=== PATIENT | male | born 1950 | race Caucasian/White ===

== ENCOUNTER → 2020-09-14 08:57 | Outpatient (CLI) | payer MEDICARE, OTHER, SELFPAY ==
--- NOTE | 2020-09-14 09:13 | CPS ---
PT CAME IN FOR COVID SWAB AND EKG WAS ORDERED ALSO. PT REFUSED TO HAVE EKG DONE. PT STATED THAT DR ROSE OFFICE HAD DONE ONE 2-3 WEEKS AGO AND THEY WERE TO BE USING THAT EKG.
[2020-09-14 09:59] LABS: Absolute Lymphocyte Count 1.39 X10^3/uL (0.83-4.51); Basophil# 0.04 X10^3/uL; Basophil% 0.8 % (0-1); Eosinophil# 0.05 X10^3/uL; Hematocrit 39.1 % (40-54); Hemoglobin 14.1 g/dL (13.0-16.5); Lymphocyte # 1.39 X10^3/ul (4.0); Lymphocyte % 27.8 % (19-41); Mean Corp Hgb Conc 36.1 g/dL (32-36); Mean Corpuscular Hgb 34.9 pg (27.0-32.0); Mean Corpuscular Volume 96.8 fL (80-94); Mean Platelet Vol. 8.9 fl (6.2-12.0); NRBC Flagged by Analyzer 0 % (0-5); Platelet Count 279 K/mm3 (150-450); RBC Distribution Width CV 11.6 % (11.6-14.6); RBC Distribution Width SD 40.9 fl (35.1-43.9); Red Blood Count 4.04 M/mm3 (4.6-6.2)
[2020-09-14 10:29] LABS: Anion Gap 5 (5-15); BUN 8 mg/dL (7-18); BUN/Creat Ratio 10.6 RATIO (10-20); Calcium,Total 9.3 mg/dL (8.5-10.1); Chloride 93 mmol/L (98-107); Creatinine, Serum 0.76 mg/dL (0.70-1.30); EST Glomerular Filtration Rate 109 mL/min (>60); Est Glom Filt Rate - Afr Amer 132 mL/min (>60); Glucose 152 mg/dL (74-106); Potassium 3.6 mmol/L (3.5-5.1); Sodium Level 129 mmol/L (136-145)
[2020-09-14 10:57] LABS: Hemoglobin A1c 5.9 % (3.8-5.6)
== END ==
PROVIDERS: PCP Internal Medicine; Referring Provider Physician Assistant; Visit Provider Physician Assistant
DX: Z01.818 Encounter for other preprocedural examination (principal); E11.69 Type 2 diabetes mellitus with other specified complication
CPT/HCPCS: 36415; 80048; 83036; 85025; 87635; C9803; U0003

== ENCOUNTER → 2020-09-20 10:05 | Outpatient (CLI) | payer MEDICARE, OTHER, SELFPAY ==
[2016-04-18 13:19] VITALS: BMI 28.7
[2020-09-20 11:16] LABS: Hematocrit 36.7 % (40-54); Hemoglobin 13.3 g/dL (13.0-16.5); Mean Corp Hgb Conc 36.2 g/dL (32-36); Mean Corpuscular Hgb 34.6 pg (27.0-32.0); Mean Corpuscular Volume 95.6 fL (80-94); Mean Platelet Vol. 9.1 fl (6.2-12.0); Platelet Count 259 K/mm3 (150-450); RBC Distribution Width CV 11.5 % (11.6-14.6); RBC Distribution Width SD 40.1 fl (35.1-43.9); Red Blood Count 3.84 M/mm3 (4.6-6.2); White Blood Count 5.1 K/mm3 (4.4-11.0)
[2020-09-20 11:53] LABS: Anion Gap 6 (5-15); BUN 10 mg/dL (7-18); BUN/Creat Ratio 11.1 RATIO (10-20); Calcium,Total 9.1 mg/dL (8.5-10.1); Chloride 91 mmol/L (98-107); EST Glomerular Filtration Rate 89 mL/min (>60); Est Glom Filt Rate - Afr Amer 108 mL/min (>60); Glucose 139 mg/dL (74-106); Potassium 3.2 mmol/L (3.5-5.1); Sodium Level 128 mmol/L (136-145)
== END ==
PROVIDERS: PCP Internal Medicine; Referring Provider Physician Assistant; Visit Provider Physician Assistant
DX: Z01.818 Encounter for other preprocedural examination (principal); S46.012A Strain of muscle(s) and tendon(s) of the rotator cuff of left shoulder, initial encounter; M75.42 Impingement syndrome of left shoulder
CPT/HCPCS: 36415; 80048; 85027

== ENCOUNTER 2021-04-24 22:43 | Emergency (ER) | payer MEDICARE, OTHER, SELFPAY ==
[2021-04-24 22:43] VITALS: BP 113/61; PULSE 90; RESP 18; TEMP 36.3; O2SAT 93; BMI 31.4
[2021-04-24 23:06] LABS: Absolute Lymphocyte Count 0.95 X10^3/uL (0.83-4.51); Absolute Neutrophil Count 3.7 X10^3/uL (2.0-7.7); Basophil# 0.01 X10^3/uL; Basophil% 0.2 % (0-1); Eosinophil# 0.07 X10^3/uL; Eosinophils% 1.3 % (0-5); Hematocrit 38.4 % (40-54); Hemoglobin 13.3 g/dL (13.0-16.5); Lymphocyte # 0.95 X10^3/ul (0.83-4.51); Lymphocyte % 18.2 % (19-41); Mean Corp Hgb Conc 34.6 g/dL (32-36); Mean Corpuscular Hgb 33.4 pg (27.0-32.0); Mean Corpuscular Volume 96.5 fL (80-94); Mean Platelet Vol. 9.1 fl (6.2-12.0); Monocyte% 9.6 % (0-10); NRBC Flagged by Analyzer 0 % (0-5); Neutrophil # 3.67 X10^3/uL (2.7-7.7); Neutrophil % 70.5 % (47-70); Platelet Count 186 K/mm3 (150-450); RBC Distribution Width CV 11.3 % (11.6-14.6); Red Blood Count 3.98 M/mm3 (4.6-6.2); White Blood Count 5.2 K/mm3 (4.4-11.0)
[2021-04-24 23:22] LABS: ALB/GLOB Ratio 1.2 RATIO (0.9-2.4); AST(SGOT) 31 U/L (15-37); Alanine Aminotransfer ALT/SGPT 45 U/L (16-61); Albumin, Serum 3.7 g/dL (3.2-5.0); Alkaline Phosphatase 65 U/L (45-117); Anion Gap 11 (5-15); BUN 22 mg/dL (7-18); BUN/Creat Ratio 13.6 RATIO (10-20); Calcium,Total 8.9 mg/dL (8.5-10.1); Chloride 102 mmol/L (98-107); Creatinine, Serum 1.62 mg/dL (0.70-1.30); EST Glomerular Filtration Rate 45 mL/min (>60); Est Glom Filt Rate - Afr Amer 55 mL/min (>60); Estimated Creatinine Clearance 44.44 ml/min; Globulin 3.1 g/dL (2.2-4.2); Glucose 104 mg/dL (74-106); Potassium 3.7 mmol/L (3.5-5.1); Protein, Total 6.8 g/dL (6.4-8.2); Sodium Level 135 mmol/L (136-145)
[2021-04-25 00:56] VITALS: BP 118/61; PULSE 74; RESP 18; O2SAT 96
--- NOTE | 2021-04-25 01:07 | RAD_ITS ---
STUDY: X-RAY CHEST REASON FOR EXAM: Male, 71 years old. sob TECHNIQUE: 1 view COMPARISON: 10/17/2013 FINDINGS: Cardiomediastinal silhouette is unremarkable. Costophrenic angles are sharp. Linear opacities are noted in the left lung base. There is a stable calcified granuloma in the upper lobe. Lungs otherwise clear. The trachea is midline. There is no pneumothorax. Sternotomy wires are grossly intact. RAD/Chest 1 View (Portable) IMPRESSION: Left basilar platelike atelectasis versus linear scar. Electronically Signed: Fortunato Marroquin MD at 2:14 EDT Tel , Service support ,
--- NOTE | 2021-04-25 01:08 | EKG12_ITS ---
Test Reason : SYNCOPE Blood Pressure : / mmHG Vent. Rate : 076 BPM Atrial Rate : 076 BPM P-R Int : 198 ms QRS Dur : 088 ms QT Int : 394 ms P-R-T Axes : 030 004 020 degrees QTc Int : 443 ms Normal sinus rhythm Inferior-posterior infarct , age undetermined , cannot be excluded Abnormal ECG Confirmed by MARISOL LADD, NOE ([id number]), senior technical editor SOLITARIO BECERRA ([id number]) on 04/27/2021 7:52:34 AM Referred By: CIERRA Confirmed By:NOE DAMON MD
--- NOTE | 2021-04-25 01:08 | EX.ED.DYSGE1 ---
HPI History of Present Illness Chief Complaint: Syncope Informant: patient Onset/Context/Timing Onset: Today Context: Gradual Onset Timing: Intermittent Current Severity: Mild Maximum Severity: Moderate Narrative Narrative: Patient is a 71-year-old male medical history significant for hypertension, hyperlipidemia, diabetes, and open heart surgery in 2012 who presents to the emergency department near syncope. Patient states he is in a normal state of health. He states that yesterday, he began to have what he describes as a stomach flu. He has had a few bouts of nonbloody, nonbilious emesis. He then had loose watery diarrhea. He states today, his symptoms have resolved. He states however, every time that he would go to change positions, he will get lightheaded and felt like he was going to pass out. He denies chest pain or shortness of breath. He denies fevers or chills. He denies abdominal pain. Prior similar symptoms: No Recent Illness/Hospitalization: Yes PFSH PFSH Home Medications Quinapril Hcl [Accupril] 10 mg PO BID 04/18/16 [History Last Taken 04/19/16] aspirin [Adult Low Dose Aspirin EC] 162 mg PO DAILY 04/18/16 [History Last Taken 04/19/16] atorvastatin 20 mg PO QHS 04/18/16 [History Last Taken Unknown] clopidogrel 75 mg PO DAILY 04/18/16 [History Last Taken 04/19/16] metformin 500 mg PO DAILY 04/18/16 [History Last Taken Unknown] metoprolol succinate 100 mg PO DAILY 04/18/16 [History Last Taken 04/19/16] multivitamin with folic acid [Thera] 1 tab PO DAILY 04/18/16 [History Last Taken 04/19/16] cilostazol 100 mg PO BID 04/25/21 [History Last Taken Unknown] doxazosin 16 mg PO QHS 04/25/21 [History Last Taken Unknown] Allergy/AdvReac Type Severity Reaction Status Date / Time No Known Allergies Allergy Verified 04/18/16 13:21 Social History Smoking Status: Unknown if ever smoked ROS ROS ED Constitutional Constitutional ED: Reports chills Eyes Eyes: Denies blurry vision or change in vision ENT ENT ED: Denies ear pain or sore throat Cardiovascular Cardiovascular: Denies chest pain or palpitations Respiratory/Chest Respiratory/Chest: Denies cough, dyspnea or dyspnea on exertion Gastrointestinal Gastrointestinal: Reports diarrhea, nausea and vomiting Genitourinary Genitourinary ED: Denies dysuria or urinary frequency Musculoskeletal Musculoskeletal: Denies arthralgias or myalgias Integumentary Denies rash Neurologic Neurologic: Denies headache(s) or paresthesias Psychiatric Psychiatric: Denies anxiety or depression Endocrine Endocrinology: Denies polydipsia or polyuria Allergic/Immunologic Allergic/Immunologic ED: Denies urticaria EXAM Physical Exam Const Vital Signs: 04/24/21 22:43 04/25/21 00:56 04/25/21 01:47 Temperature 97.4 F L Temperature Source Temporal Pulse Rate 90 74 73 Respiratory Rate 18 18 14 Respiratory Effort Respiratory Pattern Blood Pressure 113/61 118/61 118/57 L Blood Pressure Mean 78 80 77 Pulse Ox 93 96 95 Oxygen Delivery Method Room Air Room Air Room Air 04/25/21 01:49 Temperature Temperature Source Pulse Rate Respiratory Rate Respiratory Effort Non-Labored Respiratory Pattern Normal Blood Pressure Blood Pressure Mean Pulse Ox Oxygen Delivery Method Positive well nourished and well developed General Appearance ED: well developed HEENT Reports normocephalic, head/scalp atraumatic and moist mucous membranes Eyes PERRL and EOMs intact bilaterally Neck no lymphadenopathy and supple General: Negative for tenderness Chest Wall inspection of chest normal Resp normal respiratory effort and clear to auscultation bilaterally Cardio regular rate, regular rhythm and no murmurs GI normal to inspection, nondistended, normoactive bowel sounds Palpation: Negative for tender, guarding or rebound tenderness present Back/Spine no CVA tenderness Cervical Spine: Negative for cervical spine tenderness Thoracic Spine / Upper Back: Negative for thoracic spinal tenderness Extremity normal to inspection General Extremety ED: Negative for tenderness Neuro oriented x3 and CN's II-XII intact bilaterally Neuro Narrative: No focal deficits appreciated. Sensorium / Orientation: alert Psych mental status grossly normal Skin no rashes or lesions noted, no wounds and skin turgor normal MDM MDM MDM Narrative Medical decision making narrative: The patient presents with near syncope with standing. He had a recent GI illness with nausea, vomiting, diarrhea. His abdomen is soft and nontender. I did obtain EKG. It was sinus rhythm without evidence of acute ischemia. The patient has had no chest pain. Screening labs are obtained. He does have mild kidney injury consistent with dehydration. The patient was given 2 L of fluids. His symptoms have totally resolved. At this point, I do feel that he was likely orthostatic causing his near syncope. I do not suspect a dangerous process. The patient wants to attempt outpatient therapy and I feel this is reasonable. He will be discharged home. Impression 1. Near syncope 2. Dehydration Lab Data Attestation: I reviewed the patient's lab results. Labs: Laboratory Results - last 24 hr 04/24/21 04/24/21 22:50 22:50 WBC 5.2 RBC 3.98 L Hgb 13.3 Hct 38.4 L MCV 96.5 H MCH 33.4 H MCHC 34.6 RDW Std Deviation 40.0 RDW Coeff of Cedric 11.3 L Plt Count 186 MPV 9.1 Immature Gran % (Auto) 0.200 Neut % (Auto) 70.5 H Lymph % (Auto) 18.2 L [place] % (Auto) 9.6 Eos % (Auto) 1.3 Baso % (Auto) 0.2 Absolute Neuts (auto) 3.7 Absolute Lymphs (auto) 0.95 Nucleated RBC % 0 Sodium 135 L Potassium 3.7 Chloride 102 Carbon Dioxide 22.0 Anion Gap 11 BUN 22 H Creatinine 1.62 H Estim Creat Clear Calc 44.44 Est GFR (MDRD) Af Amer 55 L Est GFR (MDRD) Non-Af 45 L BUN/Creatinine Ratio 13.6 Glucose 104 Calcium 8.9 Total Bilirubin 1.00 AST 31 ALT 45 Alkaline Phosphatase 65 Total Protein 6.8 Albumin 3.7 Globulin 3.1 Albumin/Globulin Ratio 1.2 Radiography Chest X-Ray - ED: 1 View, Read by ED Physician, Normal, Heart, Lungs, Mediastinum and Bony Structures Diagnostic Testing: Radiology Impression Chest X-Ray 04/25/21 01:07 IMPRESSION: Left basilar platelike atelectasis versus linear scar. Electronically Signed: Fortunato Marroquin MD at 2:14 EDT Tel , Service support , Discharge Plan Triage Chief Complaint: Syncope ED Provider: David Kelly Dx/Rx/DC Orders Instructions: ED Dehydration (Adult) Prescriptions: No Action metformin 500 MG tablet 500 mg PO DAILY RF: 0 atorvastatin 20 MG tablet 20 mg PO QHS RF: 0 metoprolol succinate 100 MG tablet 100 mg PO DAILY RF: 0 clopidogrel 75 MG tablet 75 mg PO DAILY RF: 0 aspirin [Adult Low Dose Aspirin] 81 MG tablet,delayed release (DR/EC) 162 mg PO DAILY RF: 0 multivitamin with folic acid [Thera] 1 TABLET tablet 1 tab PO DAILY RF: 0 Quinapril Hcl [Accupril] 10 MG tablet 10 mg PO BID RF: 0 cilostazol 100 mg tablet 100 mg PO BID RF: 0 doxazosin 8 mg tablet 16 mg PO QHS RF: 0 Primary Care Provider: Sher Jules Referrals: Sher Jules MD [Primary Care Provider] -
[2021-04-25] MEDS: 0.9% Normal Saline 1,000 ML 999 ML IV ×2 (01:45→02:35)
[2021-04-25 01:47] VITALS: BP 118/57; PULSE 73; RESP 14; O2SAT 95
[2021-04-25 03:17] VITALS: BP 130/66; PULSE 71; RESP 16; O2SAT 96
== END 2021-04-25 03:18 ==
LOC: ED 04-25 03:06
PROVIDERS: Emergency Provider Emergency Medicine; PCP Internal Medicine
DX: R55 Syncope and collapse (principal); E86.0 Dehydration; E11.9 Type 2 diabetes mellitus without complications; E78.5 Hyperlipidemia, unspecified; I10 Essential (primary) hypertension; Z79.82 Long term (current) use of aspirin; Z79.84 Long term (current) use of oral hypoglycemic drugs; Z79.899 Other long term (current) drug therapy
CPT/HCPCS: 71045; 80053; 85025; 93005; 96360; 96361; 99283; J7030; A4216

== ENCOUNTER 2022-05-29 12:19 | Observation (INO) | payer MEDICARE, OTHER, SELFPAY ==
[2022-05-29 12:20] VITALS: BP 159/52; PULSE 74; RESP 18; TEMP 35.9; O2SAT 95; BMI 31.5
--- NOTE | 2022-05-29 13:09 | EKG12_ITS ---
Test Reason : vision Blood Pressure : / mmHG Vent. Rate : 065 BPM Atrial Rate : 065 BPM P-R Int : 196 ms QRS Dur : 100 ms QT Int : 432 ms P-R-T Axes : 022 -08 034 degrees QTc Int : 449 ms Normal sinus rhythm Normal ECG Confirmed by YAKOV LADD, THERESA ([id number]), newspaper editor SOLITARIO BECERRA ([id number]) on 05/31/2022 1:57:57 PM Referred By: Marco A Confirmed By:THERESA NAGY MD
--- NOTE | 2022-05-29 13:09 | CT_ITS ---
We are attempting to reach an attending provider to discuss findings. An addendum with communication details will be sent when the communication is complete. STUDY: CT HEAD STROKE PROTOCOL W/O CONTRAST INJECTION REASON FOR EXAM: Male, 72 years old. Neuro deficit, acute, stroke suspected RADIATION DOSAGE (If Supplied By Facility): CTDIvol = ( 44.99 ) mGy, DLP = ( 829.85 ) mGycm TECHNIQUE: Transaxial CT imaging of the brain was performed without administration of intravenous contrast material. Individualized dose optimization techniques were used for this CT. COMPARISON: No relevant priors. FINDINGS: Normal soft tissue structures. Normal calvarium. Normal size ventricles and extra-axial spaces for the patient''s age. Normal white matter tracts of the cerebral hemispheres. Normal basal ganglia and thalami. Normal brainstem. Normal cerebellum. There is no intracranial hemorrhage. There are no findings of an acute ischemic infarction. Atherosclerotic calcifications visualized in the vertebral arteries. Normal visualized paranasal sinuses. ASPECT score: 10 CT/STROKE Brain/Head without Cont IMPRESSION: No evidence of acute intracranial pathology is seen. Electronically Signed: Eduard Miranda MD at 14:45 EDT Reading Location ID and State: [facility] / [place] Tel , Service support ,
--- NOTE | 2022-05-29 13:13 | EDS_ITS ---
HPI <Dr. Christian Strickland MD - Last Filed: 06/01/22 21:41> History of Present Illness Chief Complaint: Vision Prob Informant: patient Onset/Context/Timing Onset: Weeks (1) Context: Sudden Onset (While driving) Timing: Continuous Quality and Location: Positive for - (Vision trouble with left eye only, blurry) Onset: Acute while driving Current Severity: Moderate Maximum Severity: Moderate Worsened by: Nothing Relieved by: Nothing Associated Symptoms Associated Symptoms: Negative for Headache, Nausea, Vomiting or Chest Pain Narrative Narrative: Patient upper bur[place] of his left eye only 1 week ago, sudden onset. He made an appointment to see his eye doctor, he saw them today, and after being evaluated was referred to the ER out of concern for possible vascular event of some sort. He has never had a stroke in the past. He has a history of peripheral tibial disease as well as diabetes, history of heart disease with a CABG in 2012, and since he has been on aspirin, clopidogrel, cilostazol. He is on no anticoagulant. No bleeding from anywhere recently. No headaches, peripheral neurologic symptoms, problems with speech. No eye pain. He wears glasses for correction. [facility] <Dr. Christian Strickland MD - Last Filed: 06/01/22 21:41> [facility] Medical History (Updated 05/30/22 @ 02:[address] Felicity Lieberman MD) CAD (coronary artery disease) Diabetes Hyperlipemia Hypertension Home Medications aspirin 81 mg tablet,delayed release (Adult Low Dose Aspirin) 162 mg PO DAILY heart health 04/18/16 [History Last Taken 04/19/16] clopidogrel 75 mg tablet 75 mg PO DAILY antiplatelet 04/18/16 [History Last Taken 04/19/16] metformin 500 mg tablet 500 mg PO DAILY diabetes 04/18/16 [History Last Taken Unknown] metoprolol succinate 100 mg tablet,extended release 24 hr 100 mg PO DAILY blood pressure 04/18/16 [History Last Taken 04/19/16] multivitamin with folic acid 400 mcg tablet (Thera) 1 tab PO DAILY vitamin 04/18/16 [History Last Taken 04/19/16] cilostazol 100 mg tablet 100 mg PO BID anti platelet 04/25/21 [History Last Taken Unknown] doxazosin 8 mg tablet 1 mg PO QHS prostate 04/25/21 [History Last Taken Unknown] quinapril 40 mg tablet 40 mg PO BID blood pressure 05/29/22 [History Last Taken Unknown] atorvastatin 40 mg tablet 40 mg PO QHS #30 tabs 05/30/22 [Rx Last Taken Unknown] Allergy/AdvReac Type Severity Reaction Status Date / Time No Known Allergies Allergy Verified 05/29/22 12:22 Family History (Updated 05/30/22 @ 02:[address] Felicity Lieberman MD) Mother Cancer Father CVA (cerebral vascular accident) Surgical History (Updated 05/30/22 @ 02:[address] Felicity Lieberman MD) Failed CABG (coronary artery bypass graft) H/O angioplasty Social History (Updated 05/30/22 @ 02:[address] Felicity Lieberman MD) household members: family Smoking Status: Former smoker alcohol intake: current substance use type: does not use ROS <Dr. Christian Strickland MD - Last Filed: 06/01/22 21:41> ROS ED Constitutional Constitutional ED: Denies chills or fever(s) Eyes Eyes: Reports as per HPI and blurry vision left; Denies change in vision or diplopia ENT ENT ED: Denies rhinorrhea or sore throat Cardiovascular Cardiovascular: Denies chest pain or palpitations Respiratory/Chest Respiratory/Chest: Denies cough or dyspnea Gastrointestinal Gastrointestinal: Denies abdominal pain, diarrhea, nausea or vomiting Genitourinary Genitourinary ED: Denies dysuria or hematuria Musculoskeletal Musculoskeletal: Denies back pain or neck pain Integumentary Denies abscess or rash Neurologic Neurologic: Denies headache(s), paresthesias or weakness Psychiatric Psychiatric: Denies anxiety or suicidal thoughts EXAM <Dr. Christian Strickland MD - Last Filed: 06/01/22 21:41> Physical Exam Const Vital Signs: 05/29/22 12:20 05/29/22 13:40 05/29/22 14:55 Temperature 96.6 F L Temperature Source Temporal Pulse Rate 74 66 Respiratory Rate 18 18 Blood Pressure 159/52 H 169/66 H Blood Pressure Mean 87 100 Pulse Ox 95 96 Oxygen Delivery Method Room Air Room Air Room Air 05/29/22 17:16 05/29/22 18:53 05/30/22 00:00 Temperature Temperature Source Pulse Rate 63 65 67 Respiratory Rate 18 16 17 Blood Pressure 160/60 H 175/63 H 169/63 H Blood Pressure Mean 93 100 98 Pulse Ox 96 99 95 Oxygen Delivery Method Room Air Room Air Room Air Positive well nourished and well developed General Appearance ED: well developed and NAD HEENT Reports moist mucous membranes normocephalic and atraumatic Eyes PERRL and EOMs intact bilaterally Eyes Narrative: Patient has decreased visual field in both upper quadrants of the left eye. Other visual burton are all intact. Neck full ROM and supple Resp normal respiratory effort and clear to auscultation bilaterally Cardio regular rate and regular rhythm Cardio Narrative: 2/6 systolic ejection murmur GI non-tender and non-distended Auscultation: normoactive bowel sounds Palpation: soft Back/Spine no CVA tenderness General Back: other FROM Extremity normal to inspection General Extremety ED: Negative for edema, pulses abnormal or tenderness General Extremity: Negative for edema or pulses abnormal Neuro oriented x3, CN's II-XII intact bilaterally and no sensory deficits noted Neuro Narrative: Normal [id number] and [id number] bilaterally. Normal Romberg. Normal strength and sensation peripherally. No aphasia or dysarthria. NIHSS 1 for visual field cut. Sensorium / Orientation: awake and alert Motor Exam: strength 5/5 throughout Skin no rashes or lesions noted and no wounds STROKE Vital Signs/Narrative: Vital Signs Pulse Resp BP Pulse Ox O2 Del Method 05/30/22 00:00 67 17 169/63 H 95 Room Air NIHSS Initial: 1a Level of Consciousness: 0 1b LOC Questions (Score 2 if aphasic/stupor): 0 1c LOC Commands (Only score 1st attempt): 0 2 Best Gaze (If aphasic, use reflexive mvmts.): 0 3 Visual: 1 4 Facial Palsy: 0 5 Motor Arm Right (UN = amputation/fusion): 0 5 Motor Arm Left: 0 6 Motor Leg Right: 0 6 Motor Leg Left: 0 7 Limb ataxia (Only + if out of proportion): 0 8 Sensory (Aphasia/stupor=0 or 1, coma=2): 0 9 Best Language: 0 10 Dysarthria (mute, coma=2, intubated=UN): 0 11 Extinction and Inattention (only scored if +): 0 Total Score: 1 <Dr. Kvng Jacobson, DO - Last Filed: 05/29/22 23:48> Physical Exam Const Vital Signs: 05/29/22 12:20 05/29/22 13:40 05/29/22 14:55 Temperature 96.6 F L Temperature Source Temporal Pulse Rate 74 66 Respiratory Rate 18 18 Blood Pressure 159/52 H 169/66 H Blood Pressure Mean 87 100 Pulse Ox 95 96 Oxygen Delivery Method Room Air Room Air Room Air 05/29/22 17:16 05/29/22 18:53 05/30/22 00:00 Temperature Temperature Source Pulse Rate 63 65 67 Respiratory Rate 18 16 17 Blood Pressure 160/60 H 175/63 H 169/63 H Blood Pressure Mean 93 100 98 Pulse Ox 96 99 95 Oxygen Delivery Method Room Air Room Air Room Air STROKE Vital Signs/Narrative: Vital Signs Pulse Resp BP Pulse Ox O2 Del Method 05/30/22 00:00 67 17 169/63 H 95 Room Air NIHSS Initial: Total Score: 1 <Dr. Crys Pitt DO - Last Filed: 05/30/22 00:51> Physical Exam Const Vital Signs: 05/29/22 12:20 05/29/22 13:40 05/29/22 14:55 Temperature 96.6 F L Temperature Source Temporal Pulse Rate 74 66 Respiratory Rate 18 18 Blood Pressure 159/52 H 169/66 H Blood Pressure Mean 87 100 Pulse Ox 95 96 Oxygen Delivery Method Room Air Room Air Room Air 05/29/22 17:16 05/29/22 18:53 05/30/22 00:00 Temperature Temperature Source Pulse Rate 63 65 67 Respiratory Rate 18 16 17 Blood Pressure 160/60 H 175/63 H 169/63 H Blood Pressure Mean 93 100 98 Pulse Ox 96 99 95 Oxygen Delivery Method Room Air Room Air Room Air STROKE Vital Signs/Narrative: Vital Signs Pulse Resp BP Pulse Ox O2 Del Method 05/30/22 00:00 67 17 169/63 H 95 Room Air NIHSS Initial: Total Score: 1 MDM <Dr. Christian Strickland MD - Last Filed: 06/01/22 21:41> MDM MDM Narrative Medical decision making narrative: I spoke with Dr. Sigifredo Merritt, the patient's gambling box person who saw and evaluated him today. Upon evaluation of his left eye, the patient was diagnosed with a branch retinal artery occlusion. This occurred 1 week ago, and since it has been so long, seeing a retinal specialist is not emergent, although he needs to see one. When this happened the patient was on dual antiplatelet therapy in addition to cilostazol. I performed a CT and labs, it is all negative. I consulted [facility] neurology for further recommendations. That is pending at this time, checked out to the next physician at shift change. Lab Data Attestation: I reviewed the patient's lab results. Labs: Laboratory Results - last 24 hr 05/29/22 05/29/22 13:30 13:30 WBC 4.9 RBC 3.57 L Hgb 12.3 L Hct 34.1 L MCV 95.5 H MCH 34.5 H MCHC 36.1 H RDW Std Deviation 41.2 RDW Coeff of Cedric 11.7 Plt Count 171 MPV 9.5 Immature Gran % (Auto) 0.200 Neut % (Auto) 68.0 Lymph % (Auto) 19.8 Major % (Auto) 10.4 H Eos % (Auto) 1.0 Baso % (Auto) 0.6 Absolute Neuts (auto) 3.3 Absolute Lymphs (auto) 0.97 Nucleated RBC % 0 Sodium 133 L Potassium 3.8 Chloride 103 Carbon Dioxide 24.0 Anion Gap 6 BUN 16 Creatinine 0.88 Estim Creat Clear Calc 80.65 Est GFR (MDRD) Af Amer 110 Est GFR (MDRD) Non-Af 91 BUN/Creatinine Ratio 18.2 Glucose 162 H Calcium 9.1 Troponin I High Sens 21 Radiography Diagnostic Testing: Clinical Impression(s) from Imaging Studies Brain CT 05/29/22 13:09 IMPRESSION: No evidence of acute intracranial pathology is seen. Electronically Signed: Eduard Miranda MD at 14:45 EDT Reading Location ID and State: [facility] / [place] Tel , Service support , ADDENDUM: 05/29/22 1501 IMPRESSION: No evidence of acute intracranial pathology is seen. N.B. : The above Results were Read Back by Eduard Miranda MD to Dr. Naveen MD, and understanding confirmed on 05/29/2022 14:54:29 (ET). Electronically Signed: Eduard Miranda MD at 14:45 EDT , Rhythm Strip Rhythm Strip: Sinus Rhythm Rate: 65 Ectopy: None EKG Initial EKG: Attestation: I personally reviewed and interpreted this EKG as follows: Interpretation: Sinus Rhythm and No Acute Injury Pattern Comments: normal EKG Stroke Documentation Questions Stroke Team Activated: No (Due to timing) Was Patient considered for Endovascular Intervention?: No-CTA not indicated <Dr. Kvng Jacobson, DO - Last Filed: 05/29/22 23:48> MDM MDM Narrative Medical decision making narrative: I spoke with Dr. Sigifredo Merritt, the patient's gambling box person who saw and evaluated him today. Upon evaluation of his left eye, the patient was diagnosed with a branch retinal artery occlusion. This occurred 1 week ago, and since it has been so long, seeing a retinal specialist is not emergent, although he needs to see one. When this happened the patient was on dual antiplatelet therapy in addition to cilostazol. I performed a CT and labs, it is all negative. I consulted [facility] neurology for further recommendations. That is pending at this time, checked out to the next physician at shift change. Dictating: Patient signed out to me for monitoring until SOC consult could be obtained. Apparently there is some delay in the consults as there is multiple people in front of him. The patient has been stable here. I explained to him that it is unclear whether he needed to be admitted for further work-up or he needed to be discharged with follow-up for her retina specialist. We spoke at length. I did not want to admit him if he did need to be admitted and he was okay still waiting for the consult. Patient was signed out to incoming ED physician for monitoring until the consult can be obtained. Lab Data Labs: Laboratory Results - last 24 hr 05/29/22 05/29/22 13:30 13:30 WBC 4.9 RBC 3.57 L Hgb 12.3 L Hct 34.1 L MCV 95.5 H MCH 34.5 H MCHC 36.1 H RDW Std Deviation 41.2 RDW Coeff of Cedric 11.7 Plt Count 171 MPV 9.5 Immature Gran % (Auto) 0.200 Neut % (Auto) 68.0 Lymph % (Auto) 19.8 Major % (Auto) 10.4 H Eos % (Auto) 1.0 Baso % (Auto) 0.6 Absolute Neuts (auto) 3.3 Absolute Lymphs (auto) 0.97 Nucleated RBC % 0 Sodium 133 L Potassium 3.8 Chloride 103 Carbon Dioxide 24.0 Anion Gap 6 BUN 16 Creatinine 0.88 Estim Creat Clear Calc 80.65 Est GFR (MDRD) Af Amer 110 Est GFR (MDRD) Non-Af 91 BUN/Creatinine Ratio 18.2 Glucose 162 H Calcium 9.1 Troponin I High Sens 21 Radiography Diagnostic Testing: Clinical Impression(s) from Imaging Studies Brain CT 05/29/22 13:09 IMPRESSION: No evidence of acute intracranial pathology is seen. Electronically Signed: Eduard Miranda MD at 14:45 EDT Reading Location ID and State: [facility] / [place] Tel , Service support , ADDENDUM: 05/29/22 1501 IMPRESSION: No evidence of acute intracranial pathology is seen. N.B. : The above Results were Read Back by Eduard Miranda MD to Dr. Naveen MD, and understanding confirmed on 05/29/2022 14:54:29 (ET). Electronically Signed: Eduard Miranda MD at 14:45 EDT , <Dr. Crys Pitt, DO - Last Filed: 05/30/22 00:51> [facility] Narrative Medical decision making narrative: I spoke with Dr. Sigifredo Merritt, the patient's gambling box person who saw and evaluated him today. Upon evaluation of his left eye, the patient was diagnosed with a branch retinal artery occlusion. This occurred 1 week ago, and since it has been so long, seeing a retinal specialist is not emergent, although he needs to see one. When this happened the patient was on dual antiplatelet therapy in addition to cilostazol. I performed a CT and labs, it is all negative. I consulted [facility] neurology for further recommendations. That is pending at this time, checked out to the next physician at shift change. Dictating: Patient signed out to me for monitoring until SOC consult could be obtained. Apparently there is some delay in the consults as there is multiple people in front of him. The patient has been stable here. I explained to him that it is unclear whether he needed to be admitted for further work-up or he needed to be discharged with follow-up for her retina specialist. We spoke at length. I did not want to admit him if he did need to be admitted and he was okay still waiting for the consult. Patient was signed out to incoming ED physician for monitoring until the consult can be obtained. Care of patient turned over to me awaiting evaluation by neurology. I discussed case with the neurologist who evaluated the patient who recommended admission for further stroke work-up including MRI of the brain as well as CTA of head and neck or MRA of head and neck. Also recommended echocardiogram. Case will be discussed with hospitalist will evaluate patient for admission. I was asked to keep patient on triple anti-platelet therapy and did not require change in anticoagulation at this time. Lab Data Labs: Laboratory Results - last 24 hr 05/29/22 05/29/22 13:30 13:30 WBC 4.9 RBC 3.57 L Hgb 12.3 L Hct 34.1 L MCV 95.5 H MCH 34.5 H MCHC 36.1 H RDW Std Deviation 41.2 RDW Coeff of Cedric 11.7 Plt Count 171 MPV 9.5 Immature Gran % (Auto) 0.200 Neut % (Auto) 68.0 Lymph % (Auto) 19.8 Major % (Auto) 10.4 H Eos % (Auto) 1.0 Baso % (Auto) 0.6 Absolute Neuts (auto) 3.3 Absolute Lymphs (auto) 0.97 Nucleated RBC % 0 Sodium 133 L Potassium 3.8 Chloride 103 Carbon Dioxide 24.0 Anion Gap 6 BUN 16 Creatinine 0.88 Estim Creat Clear Calc 80.65 Est GFR (MDRD) Af Amer 110 Est GFR (MDRD) Non-Af 91 BUN/Creatinine Ratio 18.2 Glucose 162 H Calcium 9.1 Troponin I High Sens 21 Radiography Diagnostic Testing: Clinical Impression(s) from Imaging Studies Brain CT 05/29/22 13:09 IMPRESSION: No evidence of acute intracranial pathology is seen. Electronically Signed: Eduard Miranda MD at 14:45 EDT , ADDENDUM: 05/29/22 1501 IMPRESSION: No evidence of acute intracranial pathology is seen. N.B. : The above Results were Read Back by Eduard Miranda MD to Dr. Naveen MD, and understanding confirmed on 05/29/2022 14:54:29 (ET). Electronically Signed: Eduard Miranda MD at 14:45 EDT , Discharge Plan Dx/Rx/DC Orders Clinical Impression: Branch retinal artery occlusion, History of atherosclerotic heart disease, History of diabetes mellitus, History of essential hypertension Disposition Disposition: Acute Care [facility] Discharge Date/Time: 05/30/22 01:34
[2022-05-29 13:48] LABS: Absolute Lymphocyte Count 0.97 X10^3/uL (0.83-4.51); Absolute Neutrophil Count 3.3 X10^3/uL (2.0-7.7); Basophil# 0.03 X10^3/uL; Basophil% 0.6 % (0-1); Eosinophil# 0.05 X10^3/uL; Hematocrit 34.1 % (40-54); Hemoglobin 12.3 g/dL (13.0-16.5); Lymphocyte # 0.97 X10^3/ul (0.83-4.51); Lymphocyte % 19.8 % (19-41); Mean Corp Hgb Conc 36.1 g/dL (32-36); Mean Corpuscular Hgb 34.5 pg (27.0-32.0); Mean Corpuscular Volume 95.5 fL (80-94); Mean Platelet Vol. 9.5 fl (6.2-12.0); Monocyte# 0.51 X10^3/uL; Monocyte% 10.4 % (0-10); NRBC Flagged by Analyzer 0 % (0-5); Neutrophil # 3.33 X10^3/uL (2.7-7.7); Platelet Count 171 K/mm3 (150-450); RBC Distribution Width CV 11.7 % (11.6-14.6); RBC Distribution Width SD 41.2 fl (35.1-43.9); Red Blood Count 3.57 M/mm3 (4.6-6.2); White Blood Count 4.9 K/mm3 (4.4-11.0)
[2022-05-29 14:05] LABS: Anion Gap 6 (5-15); BUN 16 mg/dL (7-18); BUN/Creat Ratio 18.2 RATIO (10-20); Calcium,Total 9.1 mg/dL (8.5-10.1); Chloride 103 mmol/L (98-107); Creatinine, Serum 0.88 mg/dL (0.70-1.30); EST Glomerular Filtration Rate 91 mL/min (>60); Est Glom Filt Rate - Afr Amer 110 mL/min (>60); Estimated Creatinine Clearance 80.65 ml/min; Glucose 162 mg/dL (74-106); Potassium 3.8 mmol/L (3.5-5.1); Sodium Level 133 mmol/L (136-145); Troponin-I HS 21 pg/mL (3.0-78.0)
[2022-05-29 14:55] VITALS: BP 169/66; PULSE 66; RESP 18; O2SAT 96
--- NOTE | 2022-05-29 15:38 | TELEMED_ITS ---
[facility] Telemed has confirmed receipt of a request for visit. This document confirms receipt of the order initiating the consult. To find the results of the consultation, please view the patient's reports for the scanned Telemed Consult.
[2022-05-29 17:16] VITALS: BP 160/60; PULSE 63; RESP 18; O2SAT 96
[2022-05-29 17:17] VITALS: BMI 31.5
[2022-05-29 18:53] VITALS: BP 175/63; PULSE 65; RESP 16; O2SAT 99
[2022-05-30] VITALS (10 sets, daily range): BP systolic 155–171; BP diastolic 56–85; PULSE 67–83; RESP 16–18; TEMP 36.4–37.4; O2SAT 93–96; BMI 33.0
--- NOTE | 2022-05-30 00:55 | HP.PCM.HOS_ITS ---
HPI - General General Date of Admission: 05/30/22 Date of Service: 05/30/22 Chief Complaint: Acute visual change - 1 week HPI Narrative MARIE FALCON, is a 72 M who presents with the above. Patient has history of type II DM, history of CAD s/p CABG, PAD, on aspirin, Plavix, cilostazolStated that he has had blurred vision in the left eye ongoing for about a week. He feels like he had a left upper field cut off. He could not get into see his primary water and sewer systems superintendent until today. Patient saw his primary water and sewer systems superintendent and was diagnosed with branch retinal artery occlusion and asked to come to the emergency room. He denied any tingling or numbness or weakness or gait imbalance. His vitals in the ED showed blood pressure 159/52, heart rate 74, respiratory 18, temperature 96.6 F, oxygen sat was 95% on room air. Admitting NIHSS score was 1. [facility] teleneurology was consulted and recommended admission for acute stroke work-up Admitting blood work showed WBC count 4.9, hemoglobin 12.3, platelet count 171, sodium 133, potassium 3.8, chloride 103, carbon, 24, BUN 16, creatinine 0.88. CT of the head showed no acute intracranial pathology. EKG showed normal sinus rhythm, no acute ST-T changes. [facility] Medical History (Updated 05/30/22 @ 02:[address] Felicity Lieberman MD) CAD (coronary artery disease) Diabetes Hyperlipemia Hypertension Home Medications aspirin 81 mg tablet,delayed release (Adult Low Dose Aspirin) 162 mg PO DAILY 04/18/16 [History Last Taken 04/19/16] atorvastatin 20 mg tablet 40 mg PO QHS 04/18/16 [History Last Taken Unknown] clopidogrel 75 mg tablet 75 mg PO DAILY 04/18/16 [History Last Taken 04/19/16] metformin 500 mg tablet 500 mg PO DAILY 04/18/16 [History Last Taken Unknown] metoprolol succinate 100 mg tablet,extended release 24 hr 100 mg PO DAILY 04/18/16 [History Last Taken 04/19/16] multivitamin with folic acid 400 mcg tablet (Thera) 1 tab PO DAILY 04/18/16 [History Last Taken 04/19/16] cilostazol 100 mg tablet 100 mg PO BID 04/25/21 [History Last Taken Unknown] doxazosin 8 mg tablet 1 mg PO QHS 04/25/21 [History Last Taken Unknown] quinapril 40 mg tablet 40 mg PO BID 05/29/22 [History Last Taken Unknown] Allergy/AdvReac Type Severity Reaction Status Date / Time No Known Allergies Allergy Verified 05/29/22 12:22 Family History (Updated 05/30/22 @ 02:[address] Felicity Lieberman MD) Mother Cancer Father CVA (cerebral vascular accident) Surgical History (Updated 05/30/22 @ 02:[address] Felicity Lieberman MD) Failed CABG (coronary artery bypass graft) H/O angioplasty Social History (Updated 05/30/22 @ 02:[address] Felicity Lieberman MD) household members: family Smoking Status: Former smoker alcohol intake: current substance use type: does not use ROS ROS Narrative Constitutional:Denies: Anorexia, Chills, Fever, Night Sweats, Weight Change Eyes: Denies: Blurred vision, Cataracts, Conjunctivae Inflammation, Pain, Redness, Vision Change HEENT: Denies: Difficulty Hearing, Difficulty Swallowing, Head Aches, Hearing Changes, Sinus Congestion, Sinus Drainage Cardiovascular: Denies: Chest Pain, Orthopnea, Palpitations Respiratory: Denies: Cough, Shortness of breath at rest, Sputum production Gastrointestinal: Denies: Abdominal Pain, Nausea, Vomiting Genitourinary: Denies: Dysuria Musculoskeletal: Denies: Joint Pain, Joint stiffness, Joint swelling, Joint Tenderness Skin: Denies: Rash, Wounds Neurological: Denies: Numbness, Tingling, Focal weakness Vital Signs Vital Signs Vital Signs: 05/29/22 12:20 05/29/22 13:40 05/29/22 14:55 Temperature 96.6 F L Temperature Source Temporal Pulse Rate 74 66 Respiratory Rate 18 18 Blood Pressure 159/52 H 169/66 H Blood Pressure Mean 87 100 Pulse Ox 95 96 Oxygen Delivery Method Room Air Room Air Room Air 05/29/22 17:16 05/29/22 18:53 05/30/22 00:00 Temperature Temperature Source Pulse Rate 63 65 67 Respiratory Rate 18 16 17 Blood Pressure 160/60 H 175/63 H 169/63 H Blood Pressure Mean 93 100 98 Pulse Ox 96 99 95 Oxygen Delivery Method Room Air Room Air Room Air Weight Weight: 99.79 kg Body Mass Index (BMI) 31.5 Physical Exam Narrative Physical exam: General: Alert, Oriented x3, Cooperative, No apparent distress HEENT: Atraumatic Oral: Moist Mucosa Neck: Supple Lungs: Clear to auscultation Cardiovascular: HS I+II, regular, no murmurs Abdomen: Bowel Sounds Present, Soft, Non Tender Extremities: No edema Skin: No rashes, No breakdown Neurological: Cranial nerves II through XII intact, unable to see in the left upper visual field Psych/Mental Status: Appropriate Results Lab / Micro Data Result Diagrams: 05/29/22 13:30 05/29/22 13:30 Labs: Laboratory Results - last 24 hr 05/29/22 13:30: WBC 4.9, RBC 3.57 L, Hgb 12.3 L, Hct 34.1 L, MCV 95.5 H, MCH 34.5 H, MCHC 36.1 H, RDW Std Deviation 41.2, RDW Coeff of Cedric 11.7, Plt Count 171, MPV 9.5, Immature Gran % (Auto) 0.200, Neut % (Auto) 68.0, Lymph % (Auto) 19.8, Nolan % (Auto) 10.4 H, Eos % (Auto) 1.0, Baso % (Auto) 0.6, Absolute Neuts (auto) 3.3, Absolute Lymphs (auto) 0.97, Nucleated RBC % 0 05/29/22 13:30: Sodium 133 L, Potassium 3.8, Chloride 103, Carbon Dioxide 24.0, Anion Gap 6, BUN 16, Creatinine 0.88, Estim Creat Clear Calc 80.65, Est GFR (MDRD) Af Amer 110, Est GFR (MDRD) Non-Af 91, BUN/Creatinine Ratio 18.2, Glucose 162 H, Calcium 9.1, Troponin I High Sens 21 Rhythm Strip Rhythm Strip: Sinus Rhythm Rate: 65 Ectopy: None Radiology Impression Brain CT 05/29/22 13:09 IMPRESSION: No evidence of acute intracranial pathology is seen. Electronically Signed: Eduard Miranda MD at 14:45 EDT , ADDENDUM: 05/29/22 1501 IMPRESSION: No evidence of acute intracranial pathology is seen. N.B. : The above Results were Read Back by Eduard Miranda MD to Dr. Naveen MD, and understanding confirmed on 05/29/2022 14:54:29 (ET). Electronically Signed: Eduard Miranda MD at 14:45 EDT Reading Location ID and State: [facility] / [place] Tel , Service support , Assessment & Plan Assessment/Plan (1) Branch retinal artery occlusion: (2) CVA (cerebral vascular accident): PLAN: Plan 1. Acute onset of blurred vision, ongoing for a week, in a patient with multiple cardiovascular comorbidities Likely secondary to acute CVA Patient's primary water and sewer systems superintendent reportedly diagnosed patient with branch ret inal artery occlusion NIHSS score is 1. CT of the head is unremarkable Admit to PCU, acute stroke work-up, MRI brain, MRA of the head and neck, 2D echo, lipid profile, HbA1c PT/OT/ST to evaluate and treat Continue with aspirin, Plavix 2. Hypertension, uncontrolled, will allow for permissive hypertension, would treat per protocol Hold quinapril, continue Toprol 3. PAD status post failed angioplasties of the lower extremities, continue aspirin, Plavix, cilostazol 4. Type II DM, complicated by peripheral neuropathy, on metformin, Will hold metformin Continue blood glucose checks with insulin sliding scale 5. DVT prophylaxis?Lovenox subcu I discussed and explained in details the various types of CODE STATUS-full code, DNR CCA, DNR CC. Patient chose to be full code and want aggressive cardiopulmonary resuscitation in the event of cardiopulmonary arrest. Time spent discussing CODE STATUS 18 minutes Charges/Coding Visit Charges OBSV E&M: 36400 Initial observation care L3 Procedures Hospitalists Procedures: 39683 Advncd Care Plan 30 Min
--- NOTE | 2022-05-30 01:56 | MRI_ITS ---
STUDY: MRI BRAIN WITHOUT CONTRAST REASON FOR EXAM: Male, 72 years old. NEURO DEFICIT TECHNIQUE: Standardized multiplanar fat and water weighted pulse sequences were obtained. COMPARISON: CT scan of the head obtained on 05/29/2022. FINDINGS: No evidence of restricted diffusion is visualized. The ADC map is unremarkable. No evidence of signal dropout on the gradient echo sequence. Normal size of the ventricles and extra-axial spaces for the patient''s age. Normal white matter tracts of the supratentorial brain. Normal bilateral basal ganglia. Normal thalami. There is no extra-axial fluid accumulation. Normal flow voids within the major intracranial circulation suggesting patency by spin echo criteria. Normal sella turcica, pituitary gland, infundibular stalk, optic chiasm and hypothalamus. Normal tectal plate and pineal gland. Normal midbrain, terrance and medulla. Normal cerebellum. Normal basal cisterns. Normal bilateral temporal bones. Normal bilateral internal auditory canals. No demonstrated orbital abnormality, within the constraints of a routine brain study. Normal visualized paranasal sinuses. Blooming artifact is visualized in the midline overlying the anterior parietal lobes, this correlates with a linear radiodensity visualized on the CT scan measuring 0.3 cm seen on coronal series 601 image 66 and sagittal series 602 images 39 and also on axial series 4 image 43. Recommend clinical correlation. Normal calvarium and skull base. Normal visualized soft tissue structures. Normal visualized upper cervical spine. MRI/Brain without Contrast IMPRESSION: No evidence of acute intracranial pathology is seen. Blooming artifact is visualized in the midline overlying the anterior parietal lobes, this correlates with a linear radiodensity visualized on the CT scan measuring 0.3 cm seen on coronal series 601 image 66 and sagittal series 602 images 39 and also on axial series 4 image 43. Recommend clinical correlation. Electronically Signed: Eduard Miranda MD at 15:05 EDT ,
--- NOTE | 2022-05-30 01:56 | MRI_ITS ---
EXAM: MR ANGIOGRAPHY NECK WITHOUT AND WITH INTRAVENOUS CONTRAST CLINICAL INDICATION: Neuro deficit TECHNIQUE: Routine carotid MR angiogram protocol was performed without and with intravenous contrast. 3D reconstructions were reviewed. Nascet criteria using the distal ICAs for comparison were used for evaluation of stenoses. This report was created using [employer] report [employer] technology. CONTRAST: 20ml Dotarem via IV COMPARISON: None. FINDINGS: RIGHT COMMON CAROTID ARTERY: Unremarkable. No occlusion or significant stenosis. No dissection. RIGHT INTERNAL CAROTID ARTERY: There is mild atherosclerotic plaque formation of the origin of the right internal carotid artery with less than 50% cross sectional diameter stenosis. ALL ABOVE CRITERIA BY NASCET. No dissection. RIGHT EXTERNAL CAROTID ARTERY: There is mild atherosclerotic plaque formation of the origin of the right external carotid artery with less than 50% cross sectional diameter stenosis. ALL ABOVE CRITERIA BY NASCET. No occlusion. RIGHT VERTEBRAL ARTERY: Unremarkable. No occlusion or significant stenosis. No dissection. LEFT COMMON CAROTID ARTERY: Unremarkable. No occlusion or significant stenosis. No dissection. LEFT INTERNAL CAROTID ARTERY: There is mild atherosclerotic plaque formation of the origin of the left internal carotid artery with less than 50% cross sectional diameter stenosis. ALL ABOVE CRITERIA BY NASCET. No dissection. LEFT EXTERNAL CAROTID ARTERY: There is mild atherosclerotic plaque formation of the origin of the left external carotid artery with less than 50% cross sectional diameter stenosis. ALL ABOVE CRITERIA BY NASCET. No occlusion. LEFT VERTEBRAL ARTERY: Unremarkable. No occlusion or significant stenosis. No dissection. GREAT VESSELS OF AORTIC ARCH: Unremarkable. No significant stenosis. CAROTID STENOSIS REFERENCE USING NASCET CRITERIA: % ICA stenosis = (1 - narrowest ICA diameter/diameter of distal cervical ICA) x 100. Mild - <50% stenosis. Moderate - 50-69% stenosis. Severe - 70-94% stenosis. Near occlusion - 95-99% stenosis. Occluded - 100% stenosis. MRI/MRA Neck WITH and W/O Contrast IMPRESSION: 1. There is mild atherosclerotic plaque formation of the origin of the right internal carotid artery with less than 50% cross sectional diameter stenosis. ALL ABOVE CRITERIA BY NASCET. 2. There is mild atherosclerotic plaque formation of the origin of the left internal carotid artery with less than 50% cross sectional diameter stenosis. ALL ABOVE CRITERIA BY NASCET. 3. There is mild atherosclerotic plaque formation of the origin of the right external carotid artery with less than 50% cross sectional diameter stenosis. ALL ABOVE CRITERIA BY NASCET. 4. There is mild atherosclerotic plaque formation of the origin of the left external carotid artery with less than 50% cross sectional diameter stenosis. ALL ABOVE CRITERIA BY NASCET. Electronically Signed: Musa Trivedi MD at 14:56 EDT ,
--- NOTE | 2022-05-30 01:56 | MRI_ITS ---
EXAM: MR ANGIOGRAPHY HEAD WITHOUT INTRAVENOUS CONTRAST CLINICAL INDICATION: neuro deficit TECHNIQUE: Routine absentee-[place] of [place]/brain 3D time of flight MR angiogram protocol was performed without intravenous contrast. This report was created using [employer] report [employer] technology. COMPARISON: None. FINDINGS: RIGHT INTERNAL CAROTID ARTERY: There is calcified plaque formation of the right cavernous carotid artery, with a mild stenosis (less than 50%). ALL ABOVE CRITERIA BY NASCET. No aneurysm. RIGHT ANTERIOR CEREBRAL ARTERY: Unremarkable. No significant stenosis at the visualized segments. Anterior communicating artery is present. No aneurysm. RIGHT MIDDLE CEREBRAL ARTERY: Unremarkable. No significant stenosis at the visualized segments. No aneurysm. RIGHT POSTERIOR CEREBRAL ARTERY: Unremarkable. No significant stenosis at the visualized segments. No aneurysm. RIGHT VERTEBRAL ARTERY: Unremarkable as visualized. No significant stenosis at the intradural/visualized segments. No aneurysm. LEFT INTERNAL CAROTID ARTERY: There is calcified plaque formation of the left cavernous carotid artery, with a mild stenosis (less than 50%). ALL ABOVE CRITERIA BY NASCET. No aneurysm. LEFT ANTERIOR CEREBRAL ARTERY: Unremarkable. No significant stenosis at the visualized segments. Anterior communicating artery is present. No aneurysm. LEFT MIDDLE CEREBRAL ARTERY: Unremarkable. No significant stenosis at the visualized segments. No aneurysm. LEFT POSTERIOR CEREBRAL ARTERY: Unremarkable. No significant stenosis at the visualized segments. No aneurysm. LEFT VERTEBRAL ARTERY: Unremarkable as visualized. No significant stenosis at the intradural/visualized segments. No aneurysm. BASILAR ARTERY: Unremarkable. No significant stenosis. No aneurysm. OTHER VASCULATURE: See above. MRI/MRA Head ONLY without Contrast IMPRESSION: 1. There is calcified plaque formation of the right cavernous carotid artery, with a mild stenosis (less than 50%). ALL ABOVE CRITERIA BY NASCET. 2. There is calcified plaque formation of the left cavernous carotid artery, with a mild stenosis (less than 50%). ALL ABOVE CRITERIA BY NASCET. Electronically Signed: Musa Trivedi MD at 14:57 EDT ,
--- NOTE | 2022-05-30 01:56 | ECHOD_ITS ---
Reason For Study: TIA/CVA Procedure This was a 2D Doppler, Color Flow transthoracic echocardiogram. Exam performed portable in patient room. Left Ventricle Normal LV size. Left ventricular systolic function is normal. The estimated ejection fraction is 60 %. Stage 1 diastolic dysfunction. No regional wall motion abnormalities noted. Right Ventricle Normal RV size. Normal systolic function. Atria Normal left atrium. Normal right atrium. Bubble contrast study negative for right to left interatrial shunt. Mitral Valve Normal mitral valve. Tricuspid Valve Normal tricuspid valve. Aortic Valve Normal aortic valve. Trisinus/trileaflet aortic valve. Pulmonic Valve Normal pulmonic valve. Great Vessels Normal aortic root. The pulmonary artery is normal size. Normal inferior vena cava. Pericardium/Pleural No pericardial effusion. Medication Performed a rapid injection of agitated mix of 9 cc saline and 1cc air to assess for atrial septal defect. MMode/2D Measurements & Calculations LVIDd: 5.7 cm IVSd: 1.2 cm Ao root diam: 3.9 cm LVIDs: 2.8 cm LVPWd: 1.4 cm RVDd: 3.4 cm FS: 50.8 % LAV(MOD-bp): 114.1 ml LVAd ap4: 33.2 cm2 SV(MOD-sp4): 70.2 ml LAV(MOD-bp) Indexed: 51.5 ml/m2 LVLd ap4: 8.8 cm LAV(MOD-sp2): 151.0 ml EDV(MOD-sp4): 102.1 ml LAV(MOD-sp4): 87.0 ml EDV(sp4-el): 106.3 ml LVAs ap4: 15.5 cm2 LVLs ap4: 6.3 cm ESV(MOD-sp4): 31.8 ml ESV(sp4-el): 32.2 ml EF(MOD-sp4): 68.8 % EF(sp4-el): 69.7 % SV(sp4-el): 74.1 ml LA A4 area: 25.6 cm2 LA dimension(2D): 5.5 cm RA A4 area: 28.2 cm2 Time Measurements MV dec time: 0.27 sec Doppler Measurements & Calculations MV E max lopez: 88.0 cm/sec Lat Peak E' Lopez: 11.4 cm/sec Med Peak E' Lopez: 9.6 cm/sec MV A max lopez: 108.7 cm/sec E/E' lat: 7.7 E/E' med: 9.1 MV E/A: 0.81 MV V2 max: 114.8 cm/sec MV dec slope: 323.8 cm/sec2 Ao V2 max: 204.6 cm/sec MV max P.3 mmHg Ao max P.7 mmHg MV V2 mean: 67.8 cm/sec Ao V2 mean: 125.0 cm/sec MV mean P.1 mmHg Ao mean P.1 mmHg MV V2 VTI: 41.3 cm Ao V2 VTI: 43.5 cm LV V1 max: 128.2 cm/sec PA V2 max: 131.2 cm/sec LV V1 max P.6 mmHg PA V2 mean: 90.3 cm/sec LV V1 mean P.3 mmHg LV V1 mean: 86.0 cm/sec LV V1 VTI: 29.2 cm ECHO/Echo Complete Interpretation Summary Normal LV size. Left ventricular systolic function is normal. The estimated ejection fraction is 60 %. Bubble contrast study negative for right to left interatrial shunt. Stage 1 diastolic dysfunction. Ordering Physician: Mio^Felicity^^^ Referring Physician: Sher Jules M.D. Performed By: Josie Patiño RCS
[2022-05-30 02:11] LABS: Bedside Glucose 126 mg/dL (74-106)
[2022-05-30 06:14] LABS: Cholesterol 104 mg/dL (200); High Density Lipoprotein 65 mg/dL; Triglycerides 93 mg/dL; Very Low Density Lipoprotein 19 mg/dL (5-40)
[2022-05-30 06:50] LABS: Absolute Lymphocyte Count 1.04 X10^3/uL (0.83-4.51); Absolute Neutrophil Count 3.9 X10^3/uL (2.0-7.7); Basophil# 0.03 X10^3/uL; Basophil% 0.5 % (0-1); Eosinophil# 0.04 X10^3/uL; Eosinophils% 0.7 % (0-5); Hematocrit 34.1 % (40-54); Lymphocyte # 1.04 X10^3/ul (0.83-4.51); Lymphocyte % 18.6 % (19-41); Mean Corp Hgb Conc 35.2 g/dL (32-36); Mean Corpuscular Hgb 33.4 pg (27.0-32.0); Mean Platelet Vol. 9.7 fl (6.2-12.0); Monocyte% 10.7 % (0-10); NRBC Flagged by Analyzer 0 % (0-5); Neutrophil # 3.87 X10^3/uL (2.7-7.7); Neutrophil % 69.3 % (47-70); Platelet Count 194 K/mm3 (150-450); RBC Distribution Width CV 11.8 % (11.6-14.6); RBC Distribution Width SD 40.7 fl (35.1-43.9); Red Blood Count 3.59 M/mm3 (4.6-6.2); White Blood Count 5.6 K/mm3 (4.4-11.0)
[2022-05-30 06:50] LABS: Bedside Glucose 121 mg/dL (74-106)
[2022-05-30 07:01] LABS: ALB/GLOB Ratio 1.4 RATIO (0.9-2.4); AST(SGOT) 20 U/L (15-37); Alanine Aminotransfer ALT/SGPT 34 U/L (16-61); Albumin, Serum 3.5 g/dL (3.2-5.0); Alkaline Phosphatase 57 U/L (45-117); Anion Gap 5 (5-15); BUN 13 mg/dL (7-18); BUN/Creat Ratio 18.6 RATIO (10-20); Calcium,Total 8.7 mg/dL (8.5-10.1); Chloride 103 mmol/L (98-107); EST Glomerular Filtration Rate 119 mL/min (>60); Est Glom Filt Rate - Afr Amer 144 mL/min (>60); Estimated Creatinine Clearance 70.97 ml/min; Globulin 2.5 g/dL (2.2-4.2); Glucose 109 mg/dL (74-106); Potassium 3.6 mmol/L (3.5-5.1); Sodium Level 134 mmol/L (136-145)
[2022-05-30 08:35] LABS: Hemoglobin A1c 5.7 % (3.8-5.6)
[2022-05-30] MEDS: Clopidogrel Bisulfate 75 MG Tablet PO (10:16)
[2022-05-30] MEDS: Multivitamins,Therapeutic Tablet 1 TABLET PO (10:16)
[2022-05-30] MEDS: Aspirin E.C. 81 MG Tablet 162 MG PO (10:16)
[2022-05-30] MEDS: Cilostazol 50 MG Tablet 100 MG PO (10:16)
[2022-05-30] MEDS: Enoxaparin 40 MG/0.4 ML Syringe SC (10:17)
--- NOTE | 2022-05-30 11:00 | DCINST_ITS ---
Discharge Instructions Diet Discharge Diet: Low fat / Low cholesterol, 1800 Calorie Control Diet and 2000 mg Sodium Diet Activity Discharge Activity: May Not Drive Weight Bearing Status: Weight bearing as tolerated Dressing / Incision Call your doctor if you observe: Fever of 101 or Higher, Coldness, Increased Pain, Numbness or Tingling, Change in Color, Inability to urinate, Inability to have a bowel movement, Shortness of breath, Dizziness, Fainting spells, Swelling in the ankles, Chest pain, Prolonged hiccupping, Increased palpitations (irregular heartbeat), Calf discomfort and Uncontrolled pain Follow Up Care Test Results: Test results from this visit will be discussed in further detail at your follow- up appointment, if applicable. Discharge Plan Admission Admit Date/Time: 05/30/22 00:46 Primary Reason for Your Visit: Left eye, branch of central retinal artery occlusion Attending Provider: Hiren Avelar Primary Care Provider: Sher Julse Consulting Providers: Felicity Lieberman Instructions Additional Instructions / Restrictions: Follow-up with the retina specialist in 1 week. Discharge Orders/Prescriptions Prescriptions: New atorvastatin 40 mg Tablet 40 mg PO QHS Qty: 30 2RF Continued metoprolol succinate 100 MG tablet 100 mg PO DAILY clopidogrel 75 MG tablet 75 mg PO DAILY aspirin [Adult Low Dose Aspirin] 81 MG tablet,delayed release (DR/EC) 162 mg PO DAILY multivitamin with folic acid [Thera] 1 TABLET tablet 1 tab PO DAILY cilostazol 100 mg tablet 100 mg PO BID Label Comments: take 1 tablet by mouth twice a day doxazosin 8 mg tablet 1 mg PO QHS quinapril 40 mg tablet 40 mg PO BID Held metformin 500 MG tablet 500 mg PO DAILY Hold Instructions: Hold for 2 days. Discontinued atorvastatin 20 MG tablet 40 mg PO QHS Referrals / Follow Up: Sher Jules MD [Primary Care Provider] - Within 2 Weeks Disposition Disposition (needs filled in before D/C Order can be placed): Home, Self Care
--- NOTE | 2022-05-30 11:44 | PHA.DC.MR ---
Pharmacy Service has performed discharge medication reconciliation for this patient. The patient's discharge medication list was reviewed for discrepancies and discrepancies were resolved. Home Medications aspirin 81 mg tablet,delayed release (Adult Low Dose Aspirin) 162 mg PO DAILY heart health 04/18/16 clopidogrel 75 mg tablet 75 mg PO DAILY antiplatelet 04/18/16 metformin 500 mg tablet 500 mg PO DAILY diabetes 04/18/16 metoprolol succinate 100 mg tablet,extended release 24 hr 100 mg PO DAILY blood pressure 04/18/16 multivitamin with folic acid 400 mcg tablet (Thera) 1 tab PO DAILY vitamin 04/18/16 cilostazol 100 mg tablet 100 mg PO BID anti platelet 04/25/21 doxazosin 8 mg tablet 1 mg PO QHS prostate 04/25/21 quinapril 40 mg tablet 40 mg PO BID blood pressure 05/29/22 atorvastatin 40 mg tablet 40 mg PO QHS #30 tabs 05/30/22
[2022-05-30] MEDS: Insulin Lispro 100 UNIT/ML INSULN.PEN SC (12:18)
[2022-05-30 12:25] LABS: Bedside Glucose 221 mg/dL (74-106)
--- NOTE | 2022-05-30 15:18 | CASEMGMT ---
Up independent in room and states no concerns with going home. SStmacie HOLLOWAY CM
--- NOTE | 2022-05-30 16:13 | DS.PCM_ITS ---
Providers Date of Admission: 05/30/22 Date of Discharge: 05/30/22 Primary Care Physician: Dr. Sher Jules MD Reason For Visit: TIA/CVA Diagnosis Discharge Diagnosis (1) Branch retinal artery occlusion: Status: Acute Code(s): H34.239 - Retinal artery branch occlusion, unspecified eye (2) CVA (cerebral vascular accident): Status: Acute Code(s): I63.9 - Cerebral infarction, unspecified Medications at Discharge Home Medications aspirin 81 mg tablet,delayed release (Adult Low Dose Aspirin) 162 mg PO DAILY heart health 04/18/16 clopidogrel 75 mg tablet 75 mg PO DAILY antiplatelet 04/18/16 metformin 500 mg tablet 500 mg PO DAILY diabetes 04/18/16 metoprolol succinate 100 mg tablet,extended release 24 hr 100 mg PO DAILY blood pressure 04/18/16 multivitamin with folic acid 400 mcg tablet (Thera) 1 tab PO DAILY vitamin 04/18/16 cilostazol 100 mg tablet 100 mg PO BID anti platelet 04/25/21 doxazosin 8 mg tablet 1 mg PO QHS prostate 04/25/21 quinapril 40 mg tablet 40 mg PO BID blood pressure 05/29/22 atorvastatin 40 mg tablet 40 mg PO QHS #30 tabs 05/30/22 Hospital Course Summary of Care Provided Hospital Course: This 72-year-old question gentleman was admitted through ED for blurry vision i n the left eye for about 1 week. Patient was admitted in PCU. Further hospital course and management as follows 1. Acute onset of blurred vision, for 1 week with multiple cardiovascular comorbidities: Patient was admitted in PCU on property assessment monitor. As per patient's primary senior clerk, patient diagnosed with occlusion of branch of right artery occlusion. NIH score was 1 yesterday but today is 0.CT of the head is unremarkable. MRI brain does not show acute infarct. MRA head shows calcified plaque less than 50% stenosis in bilateral cavernous carotid artery. MRA neck shows less than 50% plaque in bilateral origin of ICA and bilateral origin of ECA. Patient is on high intensity statin, aspirin Plavix and cilostazol. 2D echo reported EF 60% with no sizvi-qy-secw interatrial shunt. Stage I diastolic dysfunction history of chronic HFpEF. Fasting profile LDL 20, HDL 65, total ch olesterol 104. Continue atorvastatin. A1c 5.7%. Glucose is controlled. Patient advised to follow-up with retina specialist in 1 week. Patient does not have any focal weakness numbness tingling or other symptoms pertaining to stroke. 2. Hypertension, uncontrolled, was managed with permissive hypertension, as per stroke protocol. No acute ischemic event found on MRI brain. Continue home dose of antihypertensive medication. 3. PAD status post failed angioplasties of the lower extremities: Patient had bilateral femoral artery stent as per history. continue aspirin, Plavix, cilostazol 4. Type II DM, complicated by peripheral neuropathy, Hold metformin for 2 days Continue blood glucose checks with insulin sliding scale 5.? DVT prophylaxis?Lovenox subcu Discharge medication reconciliation done. Discharge follow-up instructions completed. Discharge process discussed with the patient and all questions were answered to patient's satisfaction. Total time spent, exact 35 minutes on discharge meds reconciliation, examination, coordination of care with nurses and ancillary staff, review of imaging and blood test and discussion with the patient on follow-up instructions. Clinical Impression(s) from Imaging Studies Brain CT 05/29/22 13:09 IMPRESSION: No evidence of acute intracranial pathology is seen. Brain MRI 05/30/22 01:56 IMPRESSION: No evidence of acute intracranial pathology is seen. Blooming artifact is visualized in the midline overlying the anterior parietal lobes, this correlates with a linear radiodensity visualized on the CT scan measuring 0.3 cm seen on coronal series 601 image 66 and sagittal series 602 images 39 and also on axial series 4 image 43. Recommend clinical correlation. Electronically Signed: Eduard Miranda MD at 15:05 EDT Reading Location ID and State: [facility] / [place] Tel , Service support , Echocardiogram 05/30/22 01:56 Interpretation Summary Normal LV size. Left ventricular systolic function is normal. The estimated ejection fraction is 60 %. Bubble contrast study negative for right to left interatrial shunt. Stage 1 diastolic dysfunction. Head MRA 05/30/22 01:56 IMPRESSION: 1. There is calcified plaque formation of the right cavernous carotid artery, with a mild stenosis (less than 50%). ALL ABOVE CRITERIA BY NASCET. 2. There is calcified plaque formation of the left cavernous carotid artery, with a mild stenosis (less than 50%). ALL ABOVE CRITERIA BY NASCET. Electronically Signed: Musa Trivedi MD at 14:57 EDT , Neck MRA 05/30/22 01:56 IMPRESSION: 1. There is mild atherosclerotic plaque formation of the origin of the right internal carotid artery with less than 50% cross sectional diameter stenosis. ALL ABOVE CRITERIA BY NASCET. 2. There is mild atherosclerotic plaque formation of the origin of the left internal carotid artery with less than 50% cross sectional diameter stenosis. ALL ABOVE CRITERIA BY NASCET. 3. There is mild atherosclerotic plaque formation of the origin of the right external carotid artery with less than 50% cross sectional diameter stenosis. ALL ABOVE CRITERIA BY NASCET. 4. There is mild atherosclerotic plaque formation of the origin of the left external carotid artery with less than 50% cross sectional diameter stenosis. ALL ABOVE CRITERIA BY NASCET. Electronically Signed: Musa Trivedi MD at 14:56 EDT , Physical Exam Narrative Seen and examined. General: Alert, Oriented x3, Cooperative, obesity grade 2 BMI 33.1 kg per mete red squared HEENT: Mild blurry vision of left eye. Atraumatic, PERRLA, EOMI, Normocephalic Oral: No Gingival or Mucosal Lesions/ Ulcerations Neck: Supple, No JVD, Negative Carotid Bruits Lungs: Air entry diminished in bilateral lung bases. No crepitation/rhonchi Cardiovascular: Regular rate, Regular Rhythm, Normal S1, Normal S2, No murmurs Abdomen: Bowel Sounds Present, Soft, Non Tender, Non-Distended : No renal angle tenderness. No suprapubic tenderness. Extremities: No edema, Capillary Refill Less than 3 Seconds Skin: No rashes, No breakdown Musculoskeletal: No Tenderness to Palpation of Joints or Extremities Neurological: Cranial nerves II-XII grossly intact, DTR 2+/4 and Symmetrical, Neuro grossly intact. Muscle strength 5/5 at major joints. NIHSS is 0 Psych/Mental Status: Normal Affect, Appropriate. Weight / BMI Weight Weight: 230 lb 9.656 oz Body Mass Index (BMI) 33.0 ABG / Lab / Microbiology Data Result Diagrams: 05/30/22 04:13 05/30/22 04:13 Laboratory: Laboratory Results - last 24 hr 05/29/22 13:30: WBC 4.9, RBC 3.57 L, Hgb 12.3 L, Hct 34.1 L, MCV 95.5 H, MCH 34.5 H, MCHC 36.1 H, RDW Std Deviation 41.2, RDW Coeff of Cedric 11.7, Plt Count 171, MPV 9.5, Immature Gran % (Auto) 0.200, Neut % (Auto) 68.0, Lymph % (Auto) 19.8, Glynn % (Auto) 10.4 H, Eos % (Auto) 1.0, Baso % (Auto) 0.6, Absolute Neuts (auto) 3.3, Absolute Lymphs (auto) 0.97, Nucleated RBC % 0 05/29/22 13:30: Sodium 133 L, Potassium 3.8, Chloride 103, Carbon Dioxide 24.0, Anion Gap 6, BUN 16, Creatinine 0.88, Estim Creat Clear Calc 80.65, Est GFR (MDRD) Af Amer 110, Est GFR (MDRD) Non-Af 91, BUN/Creatinine Ratio 18.2, Glucose 162 H, Calcium 9.1, Troponin I High Sens 21 05/30/22 01:51: POC Glucose 126 H 05/30/22 04:13: Hemoglobin A1c 5.7 H 05/30/22 04:13: Triglycerides 93, Cholesterol 104, LDL Cholesterol 20, VLDL Cholesterol 19, HDL Cholesterol 65 05/30/22 04:13: WBC 5.6, RBC 3.59 L, Hgb 12.0 L, Hct 34.1 L, MCV 95.0 H, MCH 33.4 H, MCHC 35.2, RDW Std Deviation 40.7, RDW Coeff of Cedric 11.8, Plt Count 194, MPV 9.7, Immature Gran % (Auto) 0.200, Neut % (Auto) 69.3, Lymph % (Auto) 18.6 L , Glynn % (Auto) 10.7 H, Eos % (Auto) 0.7, Baso % (Auto) 0.5, Absolute Neuts (auto) 3.9, Absolute Lymphs (auto) 1.04, Nucleated RBC % 0 05/30/22 04:13: Sodium 134 L, Potassium 3.6, Chloride 103, Carbon Dioxide 26.0, Anion Gap 5, BUN 13, Creatinine 0.70, Estim Creat Clear Calc 70.97, Est GFR (MDRD) Af Amer 144, Est GFR (MDRD) Non-Af 119, BUN/Creatinine Ratio 18.6, Glucose 109 H, Calcium 8.7, Total Bilirubin 1.40 H, AST 20, ALT 34, Alkaline Phosphatase 57, Total Protein 6.0 L, Albumin 3.5, Globulin 2.5, Albumin/Globulin Ratio 1.4, Triglycerides Cancelled, Cholesterol Cancelled, LDL Cholesterol Cancelled, VLDL Cholesterol Cancelled, HDL Cholesterol Cancelled 05/30/22 06:29: POC Glucose 121 H Radiography Diagnostic Testing: Radiology Impression Brain CT 05/29/22 13:09 IMPRESSION: No evidence of acute intracranial pathology is seen. Electronically Signed: Eduard Miranda MD at 14:45 EDT Reading Location ID and State: [facility] / [place] Tel , Service support , ADDENDUM: 05/29/22 1501 IMPRESSION: No evidence of acute intracranial pathology is seen. N.B. : The above Results were Read Back by Eduard Miranda MD to Dr. Naveen MD, and understanding confirmed on 05/29/2022 14:54:29 (ET). Electronically Signed: Eduard Miranda MD at 14:45 EDT , D/C Instructions Discharge Diet: Low fat / Low cholesterol, 1800 Calorie Control Diet and 2000 mg Sodium Diet Weight Bearing Status: Weight bearing as tolerated Call your doctor if you observe: Fever of 101 or Higher, Coldness, Increased Pain, Numbness or Tingling, Change in Color, Inability to urinate, Inability to have a bowel movement, Shortness of breath, Dizziness, Fainting spells, Swelling in the ankles, Chest pain, Prolonged hiccupping, Increased palpitations (irregular heartbeat), Calf discomfort and Uncontrolled pain Meaningful Use Info Meaningful Use Diagnoses (Choose all that apply): None applicable Discharge Plan Admission Admit Date/Time: 05/30/22 00:46 Primary Reason for Your Visit: Left eye, branch of central retinal artery occlusion Attending Provider: Hiren Avelar Primary Care Provider: Sher Jules Consulting Providers: Felicity Lieberman Instructions Additional Instructions / Restrictions: Follow-up with the retina specialist in 1 week. Discharge Orders/Prescriptions Prescriptions: New atorvastatin 40 mg Tablet 40 mg PO QHS Qty: 30 2RF Continued metoprolol succinate 100 MG tablet 100 mg PO DAILY clopidogrel 75 MG tablet 75 mg PO DAILY aspirin [Adult Low Dose Aspirin] 81 MG tablet,delayed release (DR/EC) 162 mg PO DAILY multivitamin with folic acid [Thera] 1 TABLET tablet 1 tab PO DAILY cilostazol 100 mg tablet 100 mg PO BID Label Comments: take 1 tablet by mouth twice a day doxazosin 8 mg tablet 1 mg PO QHS quinapril 40 mg tablet 40 mg PO BID Held metformin 500 MG tablet 500 mg PO DAILY Hold Instructions: Hold for 2 days. Discontinued atorvastatin 20 MG tablet 40 mg PO QHS Referrals / Follow Up: Sher Jules MD [Primary Care Provider] - Within 2 Weeks Disposition Disposition (needs filled in before D/C Order can be placed): Home, Self Care Charges/Coding Visit Charges OBSV E&M: 66625 Observation care discharge
--- NOTE | 2022-05-30 16:15 | CASEMGMT ---
Social Work Note SW did not do PHQ-9 as pt's MRI was negative. Stephenie Canales RISK CONTROL REPRESENTATIVE, DATABASE TESTER
== END 2022-05-30 11:33 | disposition home or self-care (01) ==
LOC: ED 05-30 00:51 → PCU 05-30 02:13
PROVIDERS: Emergency Medicine; Admitting Provider Internal Medicine; Emergency Provider Emergency Medicine; PCP Internal Medicine; Visit Provider Internal Medicine
DX: H34.12 Central retinal artery occlusion, left eye (principal); E11.51 Type 2 diabetes mellitus with diabetic peripheral angiopathy without gangrene; E11.42 Type 2 diabetes mellitus with diabetic polyneuropathy; I63.233 Cerebral infarction due to unspecified occlusion or stenosis of bilateral carotid arteries; Z79.84 Long term (current) use of oral hypoglycemic drugs; E78.5 Hyperlipidemia, unspecified; R29.701 NIHSS score 1; H53.8 Other visual disturbances; I10 Essential (primary) hypertension; I25.10 Atherosclerotic heart disease of native coronary artery without angina pectoris; Z79.02 Long term (current) use of antithrombotics/antiplatelets; Z79.82 Long term (current) use of aspirin; Z87.891 Personal history of nicotine dependence; Z79.899 Other long term (current) drug therapy
CPT/HCPCS: 36415; 70450; 70544; 70549; 70551; 80048; 80053; 80061; 82962; 83036; 84484; 85025; 92610; 93005; 93306; 96372; 97166; 97802; 99218; 99285; A9575; A4216; G0378

== ENCOUNTER 2024-01-28 17:51 | Inpatient (IN) | payer MEDICARE, OTHER, SELFPAY ==
[2024-01-28] VITALS (25 sets, daily range): BP systolic 122–159; BP diastolic 53–86; PULSE 74–94; RESP 12–27; TEMP 35.8–36.8; O2SAT 73–96; BMI 32.1; BMI 34.3
--- NOTE | 2024-01-28 18:01 | NURSING ---
STEMI ALERT CALLED
[2024-01-28] MEDS: Nitroglycerin (INPATIENT USE) 0.4 MG TAB.SUBL SL (18:03)
--- NOTE | 2024-01-28 18:07 | EKG12_ITS ---
Test Reason : Blood Pressure : / mmHG Vent. Rate : 082 BPM Atrial Rate : 082 BPM P-R Int : 188 ms QRS Dur : 092 ms QT Int : 380 ms P-R-T Axes : 043 004 197 degrees QTc Int : 443 ms Sinus rhythm with Premature atrial complexes Marked ST abnormality, possible inferior subendocardial injury Marked ST abnormality, possible anterior subendocardial injury Abnormal ECG Confirmed by YAKOV LADD, THERESA ([id number]), city editor SOLITARIO BECERRA ([id number]) on 01/29/2024 9:37:25 AM Referred By: Rubio Simeon Confirmed By:THERESA NAGY MD
--- NOTE | 2024-01-28 18:10 | EDS_ITS ---
HPI History of Present Illness Chief Complaint: Chest Pain [facility] Medical History Branch retinal artery occlusion CAD (coronary artery disease) Diabetes mellitus, type 2 Former tobacco use Hyperlipemia Hypertension Obesity Home Medications aspirin 81 mg tablet,delayed release (Adult Low Dose Aspirin) 162 mg PO DAILY heart health 04/18/16 [History Last Taken 04/19/16] metformin 500 mg tablet 500 mg PO BID diabetes 04/18/16 [History Last Taken Unknown] multivitamin with folic acid 400 mcg tablet (Thera) 1 tab PO DAILY vitamin 04/18/16 [History Last Taken 04/19/16] cilostazol 100 mg tablet 100 mg PO BID anti platelet 04/25/21 [History Last Taken Unknown] amlodipine 10 mg tablet 10 mg PO DAILY 01/28/24 [History Last Taken Unknown] atorvastatin 40 mg tablet 40 mg PO DAILY 01/28/24 [History Last Taken Unknown] carvedilol 12.5 mg tablet 12.5 mg PO BID 01/28/24 [History Last Taken Unknown] clonidine HCl 0.2 mg tablet 0.2 mg PO BID 01/28/24 [History Last Taken Unknown] gabapentin 300 mg capsule 300 mg PO DAILY 01/28/24 [History Last Taken Unknown] hydralazine 100 mg tablet 100 mg PO TID 01/28/24 [History Last Taken Unknown] lisinopril 40 mg tablet 40 mg PO BID 01/28/24 [History Last Taken Unknown] prednisone 10 mg tablet See Taper PO TID 01/28/24 [History Last Taken Unknown] Allergy/AdvReac Type Severity Reaction Status Date / Time No Known Allergies Allergy Verified 01/28/24 17:55 Family History Mother Cancer Father CVA (cerebral vascular accident) Surgical History Failed CABG (coronary artery bypass graft) H/O angioplasty Social History (Updated 01/28/24 @ 19:[address] Geeta Mendoza MD) household members: spouse Smoking Status: Former smoker alcohol intake: current alcohol intake frequency: a few times a month substance use type: does not use EXAM Physical Exam Const Vital Signs: 01/28/24 17:52 01/28/24 17:55 01/28/24 18:18 Temperature 96.5 F L Temperature Source Temporal Pulse Rate 74 Respiratory Rate 21 H Respiratory Effort Short of Breath Blood Pressure 156/61 H Blood Pressure Mean 92 Blood Pressure Position Blood Pressure Location Pulse Ox 74 Oxygen Delivery Method Room Air Room Air Oxygen Flow Rate (L/min) 01/28/24 18:19 01/28/24 18:13 01/28/24 18:35 Temperature Temperature Source Pulse Rate 84 Respiratory Rate Respiratory Effort Blood Pressure 135/86 H 159/75 H Blood Pressure Mean 102 103 Blood Pressure Position Semi-Fowlers Semi-Fowlers Blood Pressure Location Left Arm Left Arm Pulse Ox Oxygen Delivery Method Non-Rebreather Oxygen Flow Rate (L/min) 15 01/28/24 18:39 01/28/24 18:43 01/28/24 18:26 Temperature Temperature Source Pulse Rate 86 94 Respiratory Rate 23 H 27 H Respiratory Effort Blood Pressure 151/64 H 151/64 H Blood Pressure Mean 93 93 Blood Pressure Position Semi-Fowlers Blood Pressure Location Left Arm Pulse Ox 93 Oxygen Delivery Method High Flow Oxygen Flow Rate (L/min) 8 01/28/24 18:15 01/28/24 18:03 01/28/24 18:57 Temperature 98.2 F Temperature Source Pulse Rate 82 89 Respiratory Rate 15 Respiratory Effort Blood Pressure 156/61 H 128/60 H Blood Pressure Mean 82 Blood Pressure Position Blood Pressure Location Pulse Ox 73 93 Oxygen Delivery Method Room Air Oxygen Flow Rate (L/min) 01/28/24 18:30 01/28/24 18:40 01/28/24 18:45 Temperature Temperature Source Pulse Rate 92 85 89 Respiratory Rate 18 15 16 Respiratory Effort Blood Pressure 159/75 H 151/64 H 128/60 H Blood Pressure Mean 98 90 81 Blood Pressure Position Blood Pressure Location Pulse Ox 89 94 93 Oxygen Delivery Method High Flow Oxygen Flow Rate (L/min) 8 01/28/24 19:00 01/28/24 18:39 Temperature Temperature Source Pulse Rate 92 Respiratory Rate 20 H Respiratory Effort Blood Pressure 144/62 H 151/64 H Blood Pressure Mean 85 93 Blood Pressure Position Semi-Fowlers Blood Pressure Location Left Arm Pulse Ox 92 Oxygen Delivery Method High Flow Oxygen Flow Rate (L/min) 8 MDM MDM MDM Narrative Medical decision making narrative: Patient presenting with chest pain. It is noted that he has diffuse ST depressions throughout V3 through V6, 1, aVL. There is also reciprocal ST elevation in aVR which makes me concerned for a STEMI specifically involving the LAD. Sent an EKG to Dr. Hutson who reviewed it and felt that this did look like a possible lesion at the LAD. I called a STEMI immediately. EKG was sent to Dr. Simeon for review. Patient was heparinized, given Brilinta, and aspirin 24 mg. He is still having 9/10 chest pain and was given sublingual nitroglycerin and states this is not helping. Dr. Simeon returned my call at approximately 6:10 PM and stated that this did not look like a STEMI and recommended that I give him a nitroglycerin drip and heparin drip with bolus and call him back in 15 minutes if his chest pain has not improved significantly. I was also asked to cancel the STEMI alert by Dr. Simeon. Reevaluation of the patient at 6:15 PM and the patient is still having 9/10 chest pain radiating to left arm. Repeat EKG will be obtained. 6:19 PM patient is wheezing and hypoxic and 74% on room air. He was given breathing treatments. Repeat EKG shows similar concerning signs of ischemia with ST depressions in V3 through V6 as well as 1, aVL, aVF. There is still ST elevation in aVR. This was sent to Dr. Simeon who called me back at 6:21 PM. He stated to give the patient 40 mg of Lasix and he is likely in CHF. He stated that he was coming in to see the patient but he himself had canceled the Front End Technician. He also informed me that MRI does not cause you to be hypoxic. After breathing treatments he says he feels a little bit better. He still having chest pain but states it down to less than 5. Repeat EKG was obtained and on my interpretation is a sinus rhythm with ST depressions in V4 through V6 with peak T waves in V2, V3. EKG does look improved. The patient states his pain is now 2/10. He is still on nonrebreather but was transported to high flow oxygen via nasal cannula and is currently on 8 L. He feels improved at this point. Dr. Simeon came to the bedside to talk to the patient and felt he should be admitted to medicine. Patient is currently already on a heparin drip and nitro drip and has felt some improvement. CBC shows white blood cell count 16.8. Hemoglobin 10.7. Platelets 339. Sodium was slightly low at 129. Creatinine normal at 1.11. Glucose 262 without anion gap. Magnesium level is normal at 1.6. High-sensitivity troponin was initially 339 but delta troponin came back at 11,185. I made the hospitalist aware of this. Patient likely will need cardiac catheterization. Impression: 1. ACS 2. Chest pain 3. NSTEMI 4. Leukocytosis 5. Right sided lung mass 6. Hypoxia 7. CHF Lab Data Labs: Laboratory Results - last 24 hr 01/28/24 18:00 WBC 16.8 H RBC 3.27 L Hgb 10.7 L Hct 30.7 L MCV 93.9 MCH 32.7 H MCHC 34.9 RDW Std Deviation 39.6 RDW Coeff of Cedric 11.7 Plt Count 339 MPV 9.5 Immature Gran % (Auto) 1.200 H Neut % (Auto) 91.9 H Lymph % (Auto) 4.6 L [place] % (Auto) 2.2 Eos % (Auto) 0.0 Baso % (Auto) 0.1 Absolute Neuts (auto) 15.4 H Absolute Lymphs (auto) 0.77 L Nucleated RBC % 0 PT 13.8 INR 1.1 APTT 43.4 H D-Dimer Quant (PE/DVT) 1.70 H* Sodium 129 L Potassium 4.3 Chloride 96 L Carbon Dioxide 23.0 Anion Gap 10 BUN 22 H Creatinine 1.11 Estim Creat Clear Calc 71.85 Est GFR (MDRD) Af Amer 84 Est GFR (MDRD) Non-Af 69 BUN/Creatinine Ratio 19.8 Glucose 262 H Calcium 9.6 Phosphorus 2.2 L Magnesium 1.6 Total Bilirubin 0.90 Direct Bilirubin 0.30 AST 14 L ALT 18 Alkaline Phosphatase 104 Troponin I High Sens 339 H* Total Protein 7.1 Albumin 3.2 Globulin 3.9 Radiography Diagnostic Testing: Clinical Impression(s) from Imaging Studies Chest X-Ray 01/28/24 18:48 IMPRESSION: 1.6 cm masslike density in the right upper lobe. Recommend chest CT. Electronically Signed: Paco Bonilla MD at 19:35 EDT , Chest CTA 01/28/24 19:44 IMPRESSION: No evidence of acute pulmonary emboli to the segmental level. Mild interstitial edema. Electronically Signed: Pcao Bonilla MD at 22:02 EDT , Critical Care Time Critical care time (excluding procedures): 30-74 minutes (40), Discussing w/Patient &/or Family/Medical Assistant Float, Discussing w/Consultants, Arranging Admission or Transfer and Performing Direct Patient Care at Bedside Discharge Plan Disposition Disposition: Acute Care Hospital [facility] Discharge Date/Time: 01/28/24 22:06
[2024-01-28] MEDS: Aspirin 81 MG TAB.CHEW 324 MG PO (18:12)
[2024-01-28] MEDS: Nitroglycerin Infusion 250 ML 3 MG IV (18:13)
[2024-01-28] MEDS: TICAGRELOR 90 MG TABLET 180 MG PO (18:13)
--- NOTE | 2024-01-28 18:13 | EKG12_ITS ---
Test Reason : DYSRHYTHMIA Blood Pressure : / mmHG Vent. Rate : 088 BPM Atrial Rate : 000 BPM P-R Int : 000 ms QRS Dur : 090 ms QT Int : 356 ms P-R-T Axes : 000 015 213 degrees QTc Int : 430 ms Atrial fibrillation Marked ST abnormality, possible inferior subendocardial injury Marked ST abnormality, possible anterolateral subendocardial injury Abnormal ECG Confirmed by YAKOV LADD, THERESA ([id number]), managing editor SOLITARIO BECERRA ([id number]) on 01/29/2024 9:37:46 AM Referred By: Rubio Simeon Confirmed By:THERESA NAGY MD
[2024-01-28] MEDS: Heparin Injection (Vial) 5,000 UNIT/ML VIAL 4000 UNIT IV (18:22)
[2024-01-28] MEDS: Ipratropium/Albuterol Sulfate 3 ML AMPUL.NEB INHALATION (18:25)
[2024-01-28] MEDS: HEPARIN/D5w 25,000 UNITS 25,000 UNITS/250 ML IV.SOLN. 10 UNITS CONT INF (18:28)
[2024-01-28] MEDS: Furosemide 40 MG/4 ML Vial IV (18:28)
[2024-01-28 18:29] LABS: Absolute Lymphocyte Count 0.77 X10^3/uL (0.83-4.51); Absolute Neutrophil Count 15.4 X10^3/uL (2.0-7.7); Basophil# 0.02 X10^3/uL; Basophil% 0.1 % (0-1); Hematocrit 30.7 % (40-54); Hemoglobin 10.7 g/dL (13.0-16.5); Lymphocyte # 0.77 X10^3/ul (0.83-4.51); Lymphocyte % 4.6 % (19-41); Mean Corp Hgb Conc 34.9 g/dL (32-36); Mean Corpuscular Hgb 32.7 pg (27.0-32.0); Mean Corpuscular Volume 93.9 fL (80-94); Mean Platelet Vol. 9.5 fl (6.2-12.0); Monocyte# 0.37 X10^3/uL; Monocyte% 2.2 % (0-10); NRBC Flagged by Analyzer 0 % (0-5); Neutrophil # 15.43 X10^3/uL (2.7-7.7); Neutrophil % 91.9 % (47-70); Platelet Count 339 K/mm3 (150-450); RBC Distribution Width CV 11.7 % (11.6-14.6); RBC Distribution Width SD 39.6 fl (35.1-43.9); Red Blood Count 3.27 M/mm3 (4.6-6.2); White Blood Count 16.8 K/mm3 (4.4-11.0)
--- NOTE | 2024-01-28 18:30 | EKG12_ITS ---
Test Reason : CP Blood Pressure : / mmHG Vent. Rate : 084 BPM Atrial Rate : 084 BPM P-R Int : 198 ms QRS Dur : 088 ms QT Int : 386 ms P-R-T Axes : 032 012 025 degrees QTc Int : 456 ms Sinus rhythm with Premature supraventricular complexes ST & T wave abnormality, consider lateral ischemia Abnormal ECG Confirmed by YAKOV LADD, THERESA ([id number]), rewrite editor SOLITARIO BECERRA ([id number]) on 01/29/2024 9:38:04 AM Referred By: Rubio Simeon Confirmed By:THERESA NAGY MD
[2024-01-28 18:35] LABS: International Normalized Ratio 1.1; Prothrombin Time (Protime)PT. 13.8 SECONDS (11.7-14.9)
[2024-01-28 18:37] LABS: Partial Thromboplast Time 43.4 Seconds (24.1-36.2)
[2024-01-28] MEDS: Nitroglycerin Infusion 250 ML 18 MG CONT INF (18:39)
--- NOTE | 2024-01-28 18:41 | ED.RN ---
Addendum entered by Magdalena Rodriguez 01/28/24 19:14: Nitro drip order changed to continuous infusion per Dr. Simeon, 30mcg per hour. Original Note: Increase nitro drip to 30mcg/hr per Dr. Whittington.
--- NOTE | 2024-01-28 18:48 | RAD_ITS ---
INDICATION: chest pain EXAMINATION/TECHNIQUE: X-RAY - XR Chest 1 View COMPARISON: None. FINDINGS: 1.6 cm masslike density in the right upper lobe. Tortuous and calcified thoracic aorta. The heart is mildly enlarged. No pleural effusion or pneumothorax. Degenerative changes of the thoracic spine. RAD/Chest 1 View (Portable) IMPRESSION: 1.6 cm masslike density in the right upper lobe. Recommend chest CT. Electronically Signed: Paco Bonilla MD at 19:35 EDT ,
[2024-01-28 18:51] LABS: Anion Gap 10 (5-15); BUN 22 mg/dL (7-18); BUN/Creat Ratio 19.8 RATIO (10-20); Calcium,Total 9.6 mg/dL (8.5-10.1); Chloride 96 mmol/L (98-107); Creatinine, Serum 1.11 mg/dL (0.70-1.30); EST Glomerular Filtration Rate 69 mL/min (>60); Est Glom Filt Rate - Afr Amer 84 mL/min (>60); Estimated Creatinine Clearance 71.85 ml/min; Glucose 262 mg/dL (74-106); Potassium 4.3 mmol/L (3.5-5.1); Sodium Level 129 mmol/L (136-145); Troponin-I HS (w/2H Reflex) 339 pg/mL (3.0-78.0)
--- NOTE | 2024-01-28 18:58 | PCM.CONS.C ---
Assessment & Plan Assessment/Plan (1) NSTEMI (non-ST elevated myocardial infarction): PLAN: Patient is presently asymptomatic with nitroglycerin and heparin infusion. Continue. Continue aspirin. Already loaded with Brilinta. Continue patient's amlodipine. Start beta-blockers. If patient remains asymptomatic, then we will plan on coronary angiography tomorrow. If however his symptoms recur, then will consider urgent cardiac cath. Discussed with patient and his family. They understand and agree with the plan. (2) CAD (coronary artery disease): PLAN: See #1 above. Continue aspirin. Ticagrelor. (3) History of coronary artery bypass graft x 3: PLAN: Will try to get records from [facility]. (4) Hypertension: PLAN: Nitrates. Start beta-blockers. Continue patient's amlodipine and clonidine. Also on ACEI. (5) Dyslipidemia: PLAN: Continue atorvastatin. HPI Consult Data Date of Consult: 01/28/24 HPI Narrative Reason for Consultation: Left arm pain HPI Narrative: This gentleman has past medical history significant for coronary artery disease with three-vessel CABG in 2012 at the [facility]. According to the patient, for the past few days he has been having some discomfort in his lower arm. However earlier this evening, he developed discomfort in his left upper arm and some burning sensation in his epigastrium and retrosternal region. He therefore presented to the emergency room. In the emergency room, an EKG was done. It showed diffuse ST depressions. The ER physician also informed me that he became hypoxic and started to wheeze. The patient was started on nitroglycerin infusion and also on a heparin infusion. Presently the patient reports complete resolution of his symptoms. His arm discomfort and burning sensation in his epigastrium and chest have completely resolved. Patient denies any recent history of angina pectoris. He recently had a long road trip, driving from [place] to here over the weekend. According to him, it was a 15-hour drive. [facility] Medical History (Updated 01/28/24 @ 19:[address] Rubio Simeon MD) Branch retinal artery occlusion CAD (coronary artery disease) Diabetes History of atherosclerotic heart disease History of diabetes mellitus History of essential hypertension Hyperlipemia Hypertension Home Medications aspirin 81 mg tablet,delayed release (Adult Low Dose Aspirin) 162 mg PO DAILY heart health 04/18/16 [History Last Taken 04/19/16] metformin 500 mg tablet 500 mg PO DAILY diabetes 04/18/16 [History Last Taken Unknown] multivitamin with folic acid 400 mcg tablet (Thera) 1 tab PO DAILY vitamin 04/18/16 [History Last Taken 04/19/16] cilostazol 100 mg tablet 100 mg PO BID anti platelet 04/25/21 [History Last Taken Unknown] quinapril 40 mg tablet 40 mg PO BID blood pressure 05/29/22 [History Last Taken Unknown] amlodipine 10 mg tablet 10 mg PO DAILY 01/28/24 [History Last Taken Unknown] atorvastatin 40 mg tablet 40 mg PO DAILY 01/28/24 [History Last Taken Unknown] clonidine HCl 0.2 mg tablet 0.2 mg PO BID 01/28/24 [History Last Taken Unknown] gabapentin 300 mg capsule 300 mg PO DAILY 01/28/24 [History Last Taken Unknown] hydralazine 100 mg tablet 50 mg PO TID 01/28/24 [History Last Taken Unknown] Allergy/AdvReac Type Severity Reaction Status Date / Time No Known Allergies Allergy Verified 01/28/24 17:55 Family History (Updated 05/30/22 @ 02:[address] Felicity Lieberman MD) Mother Cancer Father CVA (cerebral vascular accident) Surgical History (Updated 01/28/24 @ 19:[address] Rubio Simeon MD) Failed CABG (coronary artery bypass graft) H/O angioplasty Social History (Updated 05/30/22 @ 02:[address] Felicity Lieberman MD) household members: family Smoking Status: Former smoker alcohol intake: current substance use type: does not use Physical Exam Narrative Comfortable. Lying flat in the bed. No apparent distress. Heart sounds 1 and 2 are normal. 2/6 systolic murmur at base. Chest clear to auscultation bilaterally. Abdomen is soft. Alert oriented x 3. 1+ bilateral ankle edema. No calf swelling or tenderness. Risk Stratification Risk Stratification Applicable: No Objective Data Vital Signs: Vital Signs Temp Pulse Resp BP Pulse Ox O2 Del Method O2 Flow Rate 96.5 F L 86 23 H 151/64 H 93 High Flow 8 01/28/24 17:52 01/28/24 18:43 01/28/24 18:43 01/28/24 18:43 01/28/24 18:43 01/28/24 18:43 01/28/24 18:43 Oxygen Flow Rate (L/min) 8 Oxygen Delivery Method High Flow Weight: 223 lb 15.834 oz Body Mass Index (BMI) 32.1 Intake & Output: Intake and Output for Last 24 Hours 01/26/24 01/27/24 01/28/24 23:59 23:59 23:59 Intake Total 1.5 / 1.5 Balance 1.5 / 1.5 Lab / Micro Data 01/28/24 18:00 01/28/24 18:00 Labs: Laboratory Results - last 24 hr 01/28/24 18:00: WBC 16.8 H, RBC 3.27 L, Hgb 10.7 L, Hct 30.7 L, MCV 93.9, MCH 32.7 H, MCHC 34.9, RDW Std Deviation 39.6, RDW Coeff of Cedric 11.7, Plt Count 339, MPV 9.5, Immature Gran % (Auto) 1.200 H, Neut % (Auto) 91.9 H, Lymph % (Auto) 4.6 L, [place] % (Auto) 2.2, Eos % (Auto) 0.0, Baso % (Auto) 0.1, Absolute Neuts (auto) 15.4 H, Absolute Lymphs (auto) 0.77 L, Nucleated RBC % 0, PT 13.8, INR 1.1, APTT 43.4 H, Sodium 129 L, Potassium 4.3, Chloride 96 L, Carbon Dioxide 23.0, Anion Gap 10, BUN 22 H, Creatinine 1.11, Estim Creat Clear Calc 71.85, Est GFR (MDRD) Af Amer 84, Est GFR (MDRD) Non-Af 69, BUN/Creatinine Ratio 19.8, Glucose 262 H, Calcium 9.6, Troponin I High Sens 339 H* Cardiology Labs/Tests 01/28/24 18:00: WBC 16.8 H, RBC 3.27 L, Hgb 10.7 L, Hct 30.7 L, MCV 93.9, MCH 32.7 H, MCHC 34.9, Plt Count 339, MPV 9.5, Immature Gran % (Auto) 1.200 H, Neut % (Auto) 91.9 H, Lymph % (Auto) 4.6 L, [place] % (Auto) 2.2, Eos % (Auto) 0.0, Baso % (Auto) 0.1, Absolute Neuts (auto) 15.4 H, Nucleated RBC % 0, PT 13.8, INR 1.1, APTT 43.4 H, Sodium 129 L, Potassium 4.3, Chloride 96 L, Carbon Dioxide 23.0, Anion Gap 10, BUN 22 H, Creatinine 1.11, Est GFR (MDRD) Af Amer 84, Est GFR (MDRD) Non-Af 69, BUN/Creatinine Ratio 19.8, Glucose 262 H, Calcium 9.6 Rhythm: EKG: ECG on arrival to the emergency room showed normal sinus rhythm with PACs. ST depressions noted in inferior and lateral leads suggestive of ischemia. Last ECG shows resolution of ST segments. ECHO: Stress Test: Cardiac Cath: PCI: CT Surgery: Holter monitor: EPS: PPM: CXR: Chest CT Scan:
--- NOTE | 2024-01-28 19:25 | HP.PCM.HOS_ITS ---
HPI - General General Date of Admission: 01/28/24 Date of Service: 01/28/24 Chief Complaint: Chest pain HPI Narrative The patient is a 74 y/o M w/ PMHx: CAD s/p reported failed CABG 10/20/2013 with unclear intervention attempts, HTN, HLD, Diabetes mellitus type with chronic neuropathy, Former tobacco use, Chronic venous stasis disease, Obesity who presents to the [facility] ED on 01/28/24 with history of approximately 2 months prior having significant discomfort in his joints primarily of the bilateral wrist and hands however he had been in [place] and using his motorcycle quite a bit recently returning via a very long at least 16-hour car drive from [place] this Saturday prior to current presentation with onset at that point discomfort to the left upper extremity but distal to the left elbow prompting PCP office evaluation with diagnosis at that time of suspected tendinitis with start of a prednisone taper however on day of presentation while he was lifting up his grandson who is 6 years old at approximately 3 PM he had pain increased into the left upper extremity to the shoulder which was new described it as an aching with onset of dyspepsia at approximately 4 PM prompting him to take Tums with some improvement however he then had onset of left chest discomfort described as an aching sensation with some dyspnea rated 1-2 out of 10 in severity prompting eventual ED evaluation. Currently he notes his discomfort is improved however he is on a nitroglycerin drip. He denies any dyspneic sensation at this time. He denies any episodes of diaphoresis, nausea or emesis associated with this onset. Workup in the ED included T96.5, heart rate 74, BP 156/61, respiratory rate 21, initially noted to be 73% on room air transition to a nonrebreather at 15 L with most recent vital signs T98.2, heart rate 92, BP 144/62, respiratory rate 20, 92% on 8 L high flow, CBC with WBC 16.8, hemoglobin 10.7, MCV 93.9, platelet 339 with left shift and lymphopenia, coags with PTT 43.4, D-dimer pending upon requested evaluation of patient, BMP with sodium 129, chloride 96, BUN/creatinine 22/1.11, glucose 262, initial troponin 339, EKG with sinus rhythm with PACs with ST depressions in the inferior and lateral leads with repeat EKG demonstrating resolution of these ST segment, chest x-ray with questionable 1.6 cm masslike density in the right upper lobe with CT chest recommended. In the ED patient started on maintenance IV fluids, full-strength aspirin therapy, Lasix 40 mg IV x 1, heparin bolus and drip, nitroglycerin sublingual initially eventually transition to a nitroglycerin drip, Brilinta load, DuoNeb therapy. In the ED patient was evaluated by cardiology with recommendation for further workup of possible pulmonary emboli given prolonged recent travel and pending these findings decision for possible cardiac catheterization in the future possibly the next day however pending these workup findings. [facility] Medical History Branch retinal artery occlusion CAD (coronary artery disease) Diabetes mellitus, type 2 Former tobacco use Hyperlipemia Hypertension Obesity Home Medications aspirin 81 mg tablet,delayed release (Adult Low Dose Aspirin) 162 mg PO DAILY heart health 04/18/16 [History Last Taken 04/19/16] metformin 500 mg tablet 500 mg PO BID diabetes 04/18/16 [History Last Taken Unknown] multivitamin with folic acid 400 mcg tablet (Thera) 1 tab PO DAILY vitamin 04/18/16 [History Last Taken 04/19/16] cilostazol 100 mg tablet 100 mg PO BID anti platelet 04/25/21 [History Last Taken Unknown] amlodipine 10 mg tablet 10 mg PO DAILY 01/28/24 [History Last Taken Unknown] atorvastatin 40 mg tablet 40 mg PO DAILY 01/28/24 [History Last Taken Unknown] carvedilol 12.5 mg tablet 12.5 mg PO BID 01/28/24 [History Last Taken Unknown] clonidine HCl 0.2 mg tablet 0.2 mg PO BID 01/28/24 [History Last Taken Unknown] gabapentin 300 mg capsule 300 mg PO DAILY 01/28/24 [History Last Taken Unknown] hydralazine 100 mg tablet 100 mg PO TID 01/28/24 [History Last Taken Unknown] lisinopril 40 mg tablet 40 mg PO BID 01/28/24 [History Last Taken Unknown] prednisone 10 mg tablet See Taper PO TID 01/28/24 [History Last Taken Unknown] Allergy/AdvReac Type Severity Reaction Status Date / Time No Known Allergies Allergy Verified 01/28/24 17:55 Family History Mother Cancer Father CVA (cerebral vascular accident) Surgical History Failed CABG (coronary artery bypass graft) H/O angioplasty Social History (Updated 01/28/24 @ 19:[address] Geeta Mendoza MD) household members: spouse Smoking Status: Former smoker alcohol intake: current alcohol intake frequency: a few times a month substance use type: does not use ROS ROS Narrative Admission Review of Systems: CONSTITUTIONAL: No weight loss, fever, chills, + weakness or fatigue. HEENT: Eyes: No visual loss, blurred vision, double vision or yellow sclerae. Ears, Nose, Throat: No hearing loss, sneezing, congestion, runny nose or sore throat. SKIN: No rash or itching, lesions, wounds. CARDIOVASCULAR: + Chest discomfort, chronic lower extremity swelling. No palpitations, orthopnea, syncopal events. RESPIRATORY: + Shortness of breath. No cough or sputum, wheezing, hemoptysis. GASTROINTESTINAL: No anorexia, nausea, vomiting or diarrhea, abdominal pain, melena, BRBPR. GENITOURINARY: No dysuria, frequency, urgency or retention. NEUROLOGICAL: No headache, dizziness, syncope, paralysis, ataxia, numbness or tingling in the extremities, focal weakness, change in bowel or bladder control, seizure. MUSCULOSKELETAL: + muscle, back pain, joint pain or stiffness. HEMATOLOGIC: + Chronic anemia, easy bleeding/bruising. LYMPHATICS: No enlarged nodes. No history of splenectomy. PSYCHIATRIC: No history of depression or anxiety. ENDOCRINOLOGIC: No reports of sweating, cold or heat intolerance. No polyuria or polydipsia. ALLERGIES: No history of asthma, hives, eczema or rhinitis. Vital Signs Vital Signs Vital Signs: 01/28/24 17:52 01/28/24 17:55 01/28/24 18:18 Temperature 96.5 F L Temperature Source Temporal Pulse Rate 74 Respiratory Rate 21 H Respiratory Effort Short of Breath Blood Pressure 156/61 H Blood Pressure Mean 92 Blood Pressure Position Blood Pressure Location Pulse Ox 74 Oxygen Delivery Method Room Air Room Air Oxygen Flow Rate (L/min) 01/28/24 18:19 01/28/24 18:13 01/28/24 18:35 Temperature Temperature Source Pulse Rate 84 Respiratory Rate Respiratory Effort Blood Pressure 135/86 H 159/75 H Blood Pressure Mean 102 103 Blood Pressure Position Semi-Fowlers Semi-Fowlers Blood Pressure Location Left Arm Left Arm Pulse Ox Oxygen Delivery Method Non-Rebreather Oxygen Flow Rate (L/min) 15 01/28/24 18:39 01/28/24 18:43 01/28/24 18:26 Temperature Temperature Source Pulse Rate 86 94 Respiratory Rate 23 H 27 H Respiratory Effort Blood Pressure 151/64 H 151/64 H Blood Pressure Mean 93 93 Blood Pressure Position Semi-Fowlers Blood Pressure Location Left Arm Pulse Ox 93 Oxygen Delivery Method High Flow Oxygen Flow Rate (L/min) 8 01/28/24 18:15 01/28/24 18:03 01/28/24 18:57 Temperature 98.2 F Temperature Source Pulse Rate 82 89 Respiratory Rate 15 Respiratory Effort Blood Pressure 156/61 H 128/60 H Blood Pressure Mean 82 Blood Pressure Position Blood Pressure Location Pulse Ox 73 93 Oxygen Delivery Method Room Air Oxygen Flow Rate (L/min) 01/28/24 18:30 01/28/24 18:40 01/28/24 18:45 Temperature Temperature Source Pulse Rate 92 85 89 Respiratory Rate 18 15 16 Respiratory Effort Blood Pressure 159/75 H 151/64 H 128/60 H Blood Pressure Mean 98 90 81 Blood Pressure Position Blood Pressure Location Pulse Ox 89 94 93 Oxygen Delivery Method Oxygen Flow Rate (L/min) 01/28/24 19:00 01/28/24 18:39 Temperature Temperature Source Pulse Rate 92 Respiratory Rate 20 H Respiratory Effort Blood Pressure 144/62 H 151/64 H Blood Pressure Mean 85 93 Blood Pressure Position Semi-Fowlers Blood Pressure Location Left Arm Pulse Ox 92 Oxygen Delivery Method Oxygen Flow Rate (L/min) Weight Weight: 223 lb 15.834 oz Body Mass Index (BMI) 32.1 Physical Exam Narrative Physical Examination: General: Awake, alert, oriented x 3 and cooperative, seated upright in the ED bed in no apparent distress, still remains on significant oxygen supplementation but denies dyspnea, currently chest discomfort improved, 1 out of 10 in severity. Skin: Normal color, normal turgor, no icterus, no cyanosis except occasional staged ecchymoses, bilateral lower extremity venous stasis skin changes. HEENT: AT/NC, EOMI, PERRLA, MMM, no carotid bruits or JVD noted. Lungs: Mildly diminished, greater bases, appropriate effort, no pain with deep inspiratory effort, no rales, ronchi or wheezing. Heart: Currently regular rate and rhythm; no gallop, rub audible. Abdomen: Soft, obese, NTTP, ND, mildly hyperactive BS, no appreciated HSM. Extremities: No cyanosis, no clubbing, see skin, bilateral pedal to mid mcmullen 1+ edema. Neurological: Patient awake, alert, oriented as noted, cognitive function intact; pupils equally reactive to light and accommodation, cranial nerves II- XII grossly normal, moving all 4 extremities, no focal deficits, strength moderately to severely globally decreased secondary to acute presentation complaints Psychiatric: Affect appears mildly fatigued otherwise normal, no acute evidence of depressive or anxiety feelings. Results Lab / Micro Data 01/28/24 18:00 01/28/24 18:00 Labs: Laboratory Results - last 24 hr 01/28/24 18:00: WBC 16.8 H, RBC 3.27 L, Hgb 10.7 L, Hct 30.7 L, MCV 93.9, MCH 32.7 H, MCHC 34.9, RDW Std Deviation 39.6, RDW Coeff of Cedric 11.7, Plt Count 339, MPV 9.5, Immature Gran % (Auto) 1.200 H, Neut % (Auto) 91.9 H, Lymph % (Auto) 4.6 L, [place] % (Auto) 2.2, Eos % (Auto) 0.0, Baso % (Auto) 0.1, Absolute Neuts (auto) 15.4 H, Absolute Lymphs (auto) 0.77 L, Nucleated RBC % 0, PT 13.8, INR 1.1, APTT 43.4 H, D-Dimer Quant (PE/DVT) 1.70 H*, Sodium 129 L, Potassium 4.3, Chloride 96 L, Carbon Dioxide 23.0, Anion Gap 10, BUN 22 H, Creatinine 1.11, Estim Creat Clear Calc 71.85, Est GFR (MDRD) Af Amer 84, Est GFR (MDRD) Non-Af 69, BUN/Creatinine Ratio 19.8, Glucose 262 H, Calcium 9.6, Troponin I High Sens 339 H* Imaging Radiology Impression Chest X-Ray 01/28/24 18:48 IMPRESSION: 1.6 cm masslike density in the right upper lobe. Recommend chest CT. Electronically Signed: Paco Bonilla MD at 19:35 EDT , Assessment & Plan Assessment/Plan (1) Chest pain: PLAN: Plan The patient is a 74 y/o M w/ PMHx: CAD s/p reported failed CABG 10/20/2013 with unclear intervention attempts, HTN, HLD, Diabetes mellitus type with chronic neuropathy, Former tobacco use, Chronic venous stasis disease, Obesity who presents to the [facility] ED on 01/28/24 with history of on day of presentation while he was lifting up his grandson who is 6 years old at approximately 3 PM pain into the left upper extremity to the shoulder and eventually chest with dyspnea prompting ED evaluation. #1. Chest Pain w/ acutely elevated cardiac enzymes of unclear exact significance, some concern for possible NSTEMI however still significant concern for underlying pulmonary emboli: Will admit to the ICU, will continue with nitroglycerin drip as well as heparin drip, D-dimer pending upon evaluation but even if mildly elevated will pursue CTA especially given chest x-ray report findings per radiology, will maintain on a monitored bed, continue serial cardiac enzymes and EKGs. Magnesium level requested. Continue medical management w/ asa, Brilinta, BB, statin w/ AM FLP. ECHO requested. Cardiology consulted as noted with evaluation in the ED. Will maintain n.p.o. status after midnight with judicious IV fluids as workup is still ongoing. #2. Incidental chest x-ray questionable 1.6 cm masslike density right upper lobe: CTA chest as noted pending given elevated D-dimer, will further decide course of action pending these findings. Patient does have a tobacco use history and certainly given his situation would be at an elevated risk for VTE. #3. Recent history of suspected tendinitis left upper extremity as well as possible bilateral carpal tunnel: As noted patient with recent hand and wrist discomfort but this had been following significant overuse per discussions as well as discomfort in the left distal arm below the elbow with recent PCP office evaluation and start of steroid taper therapy, certainly could be multifactorial and this could certainly be a component still thus per discussion with cardiology we will continue steroid taper with recommended usage alteration and follow-up with PCP. #4. Leukocytosis, suspected likely related with recent prednisone therapy: CBC with WBC 16.8, no recent infectious presentation per himself and his spouse, recent travel however but they were on their own and in their own car, recent steroid therapy as noted suspected etiology, will continue to trend. #5. Chronic normocytic anemia: Admission hemoglobin 10.7, MCV 93.9, baseline hemoglobin appears more recently 12 however this is since 2021 therefore to be cautious especially given this type of presentation and planned potential anticoagulation will obtain iron panel, ferritin, guaiac, vitamin B12 and folic acid level, repeat CBC in AM. #6. CAD: Status post attempted CABG at [facility] 10/16/2013 supposedly failed, records requested, s/p PCI will continue aspirin, cilostazol will be held for now given transition per cardiology discretion to Brilinta, continue metoprolol, quinapril, statin therapy. #7. Hypertension: Continue home regimen including clonidine, amlodipine, quinapril, metoprolol with adjustments per cardiology discretion, continued on nitroglycerin drip as noted, PRN hydralazine. #8. Hyperlipidemia: Continue home statin regimen. AM FLP. #9. Diabetes mellitus type II with chronic diabetic neuropathy: Hold oral home regimen, hemoglobin A1c requested, nutrition consulted for education and teaching, ADA diet until n.p.o. status pending further workup, accu checks w/ ISS, continue patient home gabapentin regimen. #10. Former tobacco use: Encourage continued tobacco cessation. #11. DVT prophylaxis: Heparin drip. #12. CODE status: Patient [place] is his who is present and living will is currently in place. Discussed CODE status at length including difference between FULL code, DNR-CCA and DNR-CC status. Following discussions about the differences in these status, requested Full Code status. Advanced Care Planning Face to Face Time: 16 minutes. Charges/Coding Visit Charges Inpatient E&M: 79256 Init Hosp L3 Procedures Hospitalists Procedures: 65925 Advncd Care Plan 30 Min
--- NOTE | 2024-01-28 19:44 | CT_ITS ---
INDICATION: chest pain EXAMINATION: CTA Chest WO/W Contrast Injection TECHNIQUE: Helically acquired images were obtained of the chest following administration of IV contrast. A radiation dose optimization technique was used for this scan. 3D postprocessing images including MIPS were reviewed. IV Contrast dosage and agent: IV 100mL [id number] COMPARISON: None. FINDINGS: Lungs: Interlobular septal thickening. Scattered groundglass opacities. Mediastinum: The cardiomediastinal silhouette is not enlarged. No mediastinal, hilar or axillary adenopathy. Marked aortic arch and coronary artery calcifications. No obvious filling defect seen within the visualized pulmonary arteries. Pleura: Unremarkable Bones/Soft tissues: There are diffuse degenerative changes of the spine. Upper abdomen: No visualized abnormalities in the upper abdomen. CT/CTA Chest W/WO Contrast IMPRESSION: No evidence of acute pulmonary emboli to the segmental level. Mild interstitial edema. Electronically Signed: Paco Bonilla MD at 22:02 EDT ,
--- NOTE | 2024-01-28 19:59 | EKG12_ITS ---
Test Reason : PRE-OP Blood Pressure : / mmHG Vent. Rate : 063 BPM Atrial Rate : 063 BPM P-R Int : 200 ms QRS Dur : 094 ms QT Int : 440 ms P-R-T Axes : 029 003 022 degrees QTc Int : 450 ms Sinus rhythm with Premature atrial complexes Otherwise normal ECG When compared with ECG of 28-JAN-2024 23:10, MANUAL COMPARISON REQUIRED, DATA IS UNCONFIRMED Confirmed by YAKOV LADD, THERESA ([id number]), editorial writer SOLITARIO BECERRA ([id number]) on 01/29/2024 9:39:24 AM Referred By: Rubio Simeon Confirmed By:THERESA NAGY MD
[2024-01-28 20:27] LABS: Reflex Troponin-HS? (from REC) Y
[2024-01-28 20:45] LABS: AST(SGOT) 14 U/L (15-37); Alanine Aminotransfer ALT/SGPT 18 U/L (16-61); Albumin, Serum 3.2 g/dL (3.2-5.0); Alkaline Phosphatase 104 U/L (45-117); Globulin 3.9 g/dL (2.2-4.2); Magnesium 1.6 mg/dL (1.6-2.6); Phosphorus 2.2 mg/dL (2.5-4.9); Protein, Total 7.1 g/dL (6.4-8.2)
[2024-01-28 21:08] LABS: Procalcitonin 0.04 ng/mL (0.00-0.09)
[2024-01-28 21:11] LABS: Troponin-I HS 11185 pg/mL (3.0-78.0)
--- NOTE | 2024-01-28 22:17 | ECHOCS_ITS ---
Reason For Study: Chest pain, NSTEMI Procedure This was a 2D Doppler, Color Flow transthoracic echocardiogram. The study was technically difficult. Exam performed portable in ICU/CCU. Left Ventricle Normal LV size. Mild concentric left ventricular hypertrophy. The estimated ejection fraction is 60 %. Segmental dysfunction with preserved ejection fraction (see wall motion). Stage 2 diastolic dysfunction. Basal inferoseptal: Hypokinetic. Infero-Basal: Hypokinetic. Basal anteroseptal: Hypokinetic. Mid-Inferior: Hypokinetic. Mid-inferoseptal : Hypokinetic. Right Ventricle Normal RV size. Normal systolic function. Atria The left atrium is severely enlarged. The right atrium is mildly enlarged. Mitral Valve The mitral valve is structurally normal. No prolapse or stenosis seen. Mild-Moderate (1-2+) mitral valve insufficiency. Tricuspid Valve Normal tricuspid valve. Trivial tricuspid valve insufficiency. Pulmonary artery systolic pressure is 36 mmHg. Aortic Valve Trisinus/trileaflet aortic valve. Mild diffuse aortic valve thickening. Aortic sclerosis, no stenosis. Trivial aortic valve insufficiency. Pulmonic Valve Normal pulmonic valve. Great Vessels Normal aortic root. Pericardium/Pleural No pericardial effusion. Medication Diluted definity 2.0ml given slow IV push to enhance endocardial definition. MMode/2D Measurements & Calculations LVIDd: 5.1 cm IVSd: 1.3 cm Ao root diam: 3.8 cm LVIDs: 3.7 cm LVPWd: 1.3 cm RVDd: 4.0 cm FS: 28.5 % LAV(MOD-bp): 108.5 ml LVAd ap4: 42.4 cm2 LVAd ap2: 42.8 cm2 LAV(MOD-bp) Indexed: 49.0 ml/m2 LVLd ap4: 9.1 cm LVLd ap2: 9.1 cm LAV(MOD-sp2): 107.0 ml EDV(MOD-sp4): 164.4 ml EDV(MOD-sp2): 167.2 ml LAV(MOD-sp4): 106.5 ml EDV(sp4-el): 167.6 ml EDV(sp2-el): 170.9 ml LVAs ap4: 23.1 cm2 LVAs ap2: 26.3 cm2 LVLs ap4: 7.2 cm LVLs ap2: 7.6 cm ESV(MOD-sp4): 61.3 ml ESV(MOD-sp2): 72.9 ml ESV(sp4-el): 62.7 ml ESV(sp2-el): 76.8 ml EF(MOD-sp4): 62.7 % EF(MOD-sp2): 56.4 % EF(sp4-el): 62.6 % SV(MOD-sp4): 103.1 ml SV(MOD-sp2): 94.3 ml SV(sp4-el): 105.0 ml LA A4 area: 28.9 cm2 LA dimension(2D): 5.2 cm RA A4 area: 22.1 cm2 TAPSE: 2.3 cm Time Measurements MV dec time: 0.20 sec Doppler Measurements & Calculations MV E max lopez: 121.4 cm/sec Lat Peak E' Lopez: 10.2 cm/sec Med Peak E' Lopez: 5.9 cm/sec MV A max lopez: 72.7 cm/sec E/E' lat: 11.9 E/E' med: 20.7 MV E/A: 1.7 Ao V2 max: 170.7 cm/sec LV V1 max: 125.0 cm/sec MV dec slope: 612.0 cm/sec2 Ao max P.7 mmHg LV V1 max P.2 mmHg Ao V2 mean: 122.4 cm/sec LV V1 mean P.3 mmHg Ao mean P.7 mmHg LV V1 mean: 99.1 cm/sec Ao V2 VTI: 44.7 cm LV V1 VTI: 33.6 cm AV (velocity ratio): 0.75 PA V2 max: 130.6 cm/sec TR max lopez: 287.9 cm/sec PA V2 mean: 82.0 cm/sec TR max P.2 mmHg ECHO/Echo Complete W/ Contrast Interpretation Summary The estimated ejection fraction is 60 %. Stage 2 diastolic dysfunction. Segmental dysfunction with preserved ejection fraction (see wall motion). Mild concentric left ventricular hypertrophy. The right atrium is mildly enlarged. The left atrium is severely enlarged. Mild-Moderate (1-2+) mitral valve insufficiency. Contrast injection was performed. Compared to prior study, changes are noted. Ordering Physician: Geeta Mendoza Referring Physician: Sher Jules M.D. Performed By: Rupa Ramires RDCS
[2024-01-28] MEDS: 0.9% Saline Lock 10 ML Syringe IV (22:59)
[2024-01-28] MEDS: Magnesium Sulfate 2 GM in Dextrose 5%-Water (100mL Bag) 100 ML IV (22:59)
[2024-01-28 23:24] LABS: Bedside Glucose 240 mg/dL (74-106)
[2024-01-28] MEDS: Insulin Lispro 100 UNIT/ML INSULN.PEN SC (23:31)
[2024-01-28] MEDS: cloNIDine HCl 0.2 MG Tablet PO (23:32)
[2024-01-28] MEDS: Atorvastatin Calcium 80 MG Tablet PO (23:34)
[2024-01-28] MEDS: Metoprolol Tartrate 25 MG Tablet PO (23:38)
[2024-01-29] VITALS (27 sets, daily range): BP systolic 110–183; BP diastolic 49–88; PULSE 56–90; RESP 14–23; TEMP 36.2–36.9; O2SAT 93–99; BMI 34.4
[2024-01-29 00:21] LABS: Urine Sodium 50 mmol/L (Not Establ.)
[2024-01-29] MEDS: 0.9% Saline Lock 10 ML Syringe IV ×2 (00:58→03:27)
[2024-01-29 00:59] LABS: Troponin-I HS 23648 pg/mL (3.0-78.0)
[2024-01-29] MEDS: Sodium Phosphate/Na Biphos 21 MMOL in 0.9% Normal Saline (250mL Bag) 250 ML 84 MMOL IV (00:59)
[2024-01-29 01:01] LABS: Osmolality, Urine 286 mOsm/KG
[2024-01-29 02:24] LABS: Bacteria 0 SEEN /hpf (None Seen); Mucous, Urine 0 SEEN /hpf (<or=2+); Red Blood Cells-Urine 0 SEEN /hpf (0-5); Squamous Epithelial Cells - UA 0 SEEN /hpf (0-5); White Blood Cells 0 SEEN /hpf (0-5)
[2024-01-29 02:28] LABS: Color, Urine Yellow (Yellow); Glucose, Dipstick 50 mg/dl (Normal); Ketone-Dipstick Negative (Negative); Leukocyte Esterase-Dipstick Negative /ul (Negative); Nitrite-Dipstick Negative (Negative); Occult Blood-Urine Negative /ul (Negative); Protein-Dipstick Negative (Negative); Urine Bilirubin Dipstick Negative (Negative); Urine Clarity Clear (Clear); Urine Urobilinogen Normal (Normal)
--- NOTE | 2024-01-29 03:00 | NURSING ---
This RN asked pt about new prednisone prescription that he was given. Pt pulled up prescription in an EMAR on his phone. Prescription as follows; Prednisone 10mg tablets. Take 4 tabs daily for 3 days, 3 tabs daily for 3 days, 2 tabs daily for 3 days and 1 tab daily for 3 days. Pt states he started the prescription 01/27 but thinks he took it wrong. Pt states he misread directions and took 4 prednisone tablets 3 times on day 1, totaling 12 tabs together. 0400- Dr. Mendoza called to unit. This RN informed her of patient's prescription and medication error that patient made. At this time, Dr. Mendoza gave this RN a verbal order to restart prednisone taper as if it were day 1 today. RN placed order.
[2024-01-29 03:16] LABS: Absolute Lymphocyte Count 0.73 X10^3/uL (0.83-4.51); Absolute Neutrophil Count 13.7 X10^3/uL (2.0-7.7); Basophil# 0.01 X10^3/uL; Basophil% 0.1 % (0-1); Hematocrit 24.9 % (40-54); Hemoglobin 8.8 g/dL (13.0-16.5); Lymphocyte # 0.73 X10^3/ul (0.83-4.51); Lymphocyte % 4.7 % (19-41); Mean Corp Hgb Conc 35.3 g/dL (32-36); Mean Corpuscular Hgb 32.8 pg (27.0-32.0); Mean Corpuscular Volume 92.9 fL (80-94); Mean Platelet Vol. 9.3 fl (6.2-12.0); Monocyte# 0.92 X10^3/uL; NRBC Flagged by Analyzer 0 % (0-5); Neutrophil # 13.69 X10^3/uL (2.7-7.7); Neutrophil % 88.5 % (47-70); Platelet Count 296 K/mm3 (150-450); RBC Distribution Width CV 11.7 % (11.6-14.6); RBC Distribution Width SD 39.3 fl (35.1-43.9); Red Blood Count 2.68 M/mm3 (4.6-6.2); White Blood Count 15.5 K/mm3 (4.4-11.0)
[2024-01-29] MEDS: 0.9% Normal Saline (1000mL) 1,000 ML 15 ML IV (03:29)
--- NOTE | 2024-01-29 04:25 | NURSING ---
0425- per Dr. Simeon, this RN is to continue heparin gtts running for heart cath today and not stop prior. This RN is to hold all other 0600 and 1000 BP medications other than Metoprolol. Dr Simeon aware at this time that pt has a Nitroglycerin drip running at 30mcg/hr, SBP's have been averaging in 110 to 130's and HR 60.
[2024-01-29 04:33] LABS: ALB/GLOB Ratio 0.8 RATIO (0.9-2.4); AST(SGOT) 64 U/L (15-37); Alanine Aminotransfer ALT/SGPT 19 U/L (16-61); Albumin, Serum 2.6 g/dL (3.2-5.0); Alkaline Phosphatase 85 U/L (45-117); Anion Gap 5 (5-15); BUN 19 mg/dL (7-18); BUN/Creat Ratio 21.9 RATIO (10-20); Calcium,Total 8.8 mg/dL (8.5-10.1); Chloride 97 mmol/L (98-107); Cholesterol 79 mg/dL (200); Creatinine, Serum 0.87 mg/dL (0.70-1.30); EST Glomerular Filtration Rate 92 mL/min (>60); Est Glom Filt Rate - Afr Amer 111 mL/min (>60); Ferritin 234 ng/mL (26-388); Globulin 3.3 g/dL (2.2-4.2); Glucose 253 mg/dL (74-106); High Density Lipoprotein 49 mg/dL; Iron 87 ug/dL (65-175); Iron Binding Capacity,Total 195 ug/dL (250-450); Magnesium 1.9 mg/dL (1.6-2.6); PERCENT IRON SATURATION 44.6 % (15.0-55.0); Phosphorus 3.6 mg/dL (2.5-4.9); Potassium 3.9 mmol/L (3.5-5.1); Protein, Total 5.9 g/dL (6.4-8.2); Sodium Level 130 mmol/L (136-145); T4 Free Direct 1.27 ng/dL (0.76-1.46); Thyroid Stim Hormone (TSH) 0.31 uIU/mL (0.358-3.74); Triglycerides 54 mg/dL; Very Low Density Lipoprotein 11 mg/dL (5-40)
--- NOTE | 2024-01-29 05:00 | EKG12_ITS ---
Test Reason : CP ADMISSION Blood Pressure : / mmHG Vent. Rate : 079 BPM Atrial Rate : 000 BPM P-R Int : 000 ms QRS Dur : 090 ms QT Int : 402 ms P-R-T Axes : 000 000 024 degrees QTc Int : 460 ms Normal sinus rhythm with PAC's Abnormal ECG When compared with ECG of 28-JAN-2024 18:29, MANUAL COMPARISON REQUIRED, DATA IS UNCONFIRMED Confirmed by YAKOV LADD, THERESA ([id number]), medical transcription editor SOLITARIO BECERRA ([id number]) on 01/29/2024 9:41:54 AM Referred By: Rubio Simeon Confirmed By:THERESA NAGY MD
[2024-01-29] MEDS: Metoprolol Tartrate 25 MG Tablet PO ×2 (06:31→20:05)
[2024-01-29] MEDS: TICAGRELOR 90 MG TABLET PO ×2 (06:31→20:06)
[2024-01-29] MEDS: Aspirin E.C. 81 MG Tablet PO (06:31)
[2024-01-29 06:42] LABS: Bedside Glucose 194 mg/dL (74-106)
[2024-01-29 07:18] LABS: Partial Thromboplast Time 95.3 Seconds (24.1-36.2)
[2024-01-29 07:59] LABS: Vitamin B12 424 pg/mL (211-911)
[2024-01-29 08:24] LABS: Hemoglobin A1c 6.3 % (3.8-5.6)
[2024-01-29] MEDS: Nitroglycerin Infusion 250 ML 18 MG CONT INF (08:45)
--- NOTE | 2024-01-29 09:52 | CASEMGMT ---
AMIE ALANIS Assessment: Face to Face with pt for initial transition planning/care coordination assessment. AMIE ALANIS introduced self and role at [facility], pt voices understanding and consents to assessment. Pt is A&O x4 and answers all questions appropriately at this time. Pt lying in bed in no distress with and son at bedside. Pt agreeable to assessment with family present. Care providers, pharmacy, and demographics verified/updated. Admitting Dx: CP, elevated trop (?STEMI) PCP:Jorge A Specialists:Yesenia, cardio; Josselin, pod; Toribio vasc; jame Adams Preferred Pharmacy: [facility] Insurance: [employer], [employer] other Prescription Benefit: yes LNOK: Thi Hutson, ; Mansi Hutson, dtr Living Arrangements: Pt lives with in a single story home with 2 steps to enter. Pt reports he is I in ADL's and denies concerns at home. Transportation: Pt drives self and denies concerns with transportation. DME:BP cuff, cane-doesn't use; BGM with sufficient strips and lancets HHC/SNF: Denies hx of Pt states no concerns with going home at time of dc. Pt states no further concerns/needs. CM to follow. Advised pt to ask CM if any further question/concerns/needs arise, voices understanding. Pt being taken down for heart cath upon finishing assessment. Pt Goal: Home Plan: Home Hola HOLLOWAY CM
[2024-01-29] MEDS: Furosemide 20 MG/2 ML VIAL IV ×2 (12:35→18:23)
[2024-01-29] MEDS: Multivitamins,Therapeutic Tablet 1 TABLET PO (12:36)
[2024-01-29] MEDS: Gabapentin 300 MG Capsule PO (12:39)
[2024-01-29] MEDS: predniSONE 10 MG Tablet 40 MG PO (12:39)
--- NOTE | 2024-01-29 12:41 | EKG12_ITS ---
Test Reason : POST CATH Blood Pressure : / mmHG Vent. Rate : 062 BPM Atrial Rate : 062 BPM P-R Int : 172 ms QRS Dur : 094 ms QT Int : 456 ms P-R-T Axes : 013 -02 018 degrees QTc Int : 462 ms Sinus rhythm with Premature atrial complexes Otherwise normal ECG No previous ECGs available Confirmed by YAKOV LADD, THERESA ([id number]), communications editor SOLITARIO BECERRA ([id number]) on 01/30/2024 1:39:46 PM Referred By: Rubio Simeon Confirmed By:THERESA NAGY MD
--- NOTE | 2024-01-29 12:46 | CL.I_ITS ---
Patient Name: MARIE FALCON Study Date: 01/29/2024 Performing: Rubio Simeon MD Ht: 70 inches 177.8 cm : 1950 Wt: 233.1 lbs 105.6 kg Age: 74 Gender: male BSA: 2.23 PROCEDURE(S) PERFORMED DC04-(44628)LHC/COR/CABG DC11-(15484)AO ROOT ANGIO WITH HEART CATH IC12-(26691/C9600)LISANDRO W/WO PTCA, SINGLE CORONARY ARTERY CLINICAL PROFILE AND CO-MORBIDITIES Indications: ACS <= 24 hrs Heart Failure: None CAD Presentations: Non-STEMI. Symptom onset Date/Time: Time Not Available CONCLUSIONS 90-95% heavily calcified distal LMCA 100% Mid LAD; LEIGH to LAD patent 70% Prox Ramus, SVG to Lateral Ramus patent, 95% ostial Lateral Ramus filling Ramus retrogradely Couldn't find SVG to RPDA, suspect total. 80-90% distal RCA Heavily calcified thoracic aorta. No significant AR Optimized proximally using 3.0 mm balloon RECOMMENDATIONS ASA Indefinitley Brilinta for at least 12 months Staged PCI to distal LMCA into Ramus with rotational atherectomy vs. PCI to ostial Lat Ramus through SVG plus PCI distal LMCA into LCX Possible coronary CT angio as out-patient to confirm SVG to RPDA DESCRIPTION OF PROCEDURE The patient arrived to the procedure lab. The risks and benefits of the procedure as well as a full description of our services here and lack of surgical backup were fully explained to the patient and/or their significant other prior to the catheterization. The Timeout was completed, verifying the correct patient and procedure. The patient's procedural site was prepped and draped in the usual fashion. Local anesthetic was given subcutaneously to right radial region with Lidocaine 2%. Using a modified Seldinger technique, arterial access was obtained via the right radial artery, a 6Fr sheath was inserted.. Left Coronary Artery selective angiography was performed in multiple views using a 5 Fr. 4.0 Brooks catheter. Right Coronary Artery selective angiography was then performed in multiple views using a 5 Fr. 4.0 Brooks catheter. Saphenous Vein graft to the circumflex selective angiography was performed in multiple views using a 5 Fr. 4.0 Brooks catheter. Left internal mammary artery graft to the LAD selective angiography was performed in multiple views using a 5 Fr. IM catheter. Ascending (root) aorta selective angiography was then performed in single view. Ascending (root) aorta selective angiography was then performed in single viewThe images were reviewed and options discussed. A decision was then made to proceed with an Intervention, IVUS or other adjunct procedure. JR4 Guide catheter was inserted and engaged into the RCA. Runthrough] Guide wire was advanced to the RCA. Emerge 2.50x12 Balloon catheter was inserted. PTCA balloon inflated at 6 atms for 8 secs. PTCA balloon inflated at 8 atms for 12 secs. PTCA balloon inflated at 8 atms for 9 secs. PTCA balloon inflated at 8 atms for 11 secs. PTCA balloon inflated at 8 atms for 9 secs. Angiogram performed post balloon dilatation. Elham [place] 2.5x22 Drug Eluting stent was inserted. Drug Eluting stent was removed intact, failed to cross lesion Emerge 2.50x12 Balloon catheter was inserted. PTCA balloon inflated at 12 atms for 8 secs. Angiogram performed post balloon dilatation. [place] Elham 2.5x22 Drug Eluting stent was inserted. Angiogram performed post stent deployment. [place] Elham 2.5x12 Drug Eluting stent was inserted. NC Emerge 2.50x12 Balloon catheter was inserted. NC Emerge 3.00x8 Balloon catheter was inserted. The arterial sheath was pulled and a TR Band was applied for hemostasis w/ 10ml air CORONARY ANGIOGRAPHY DOMINANCE: Right Dominant LEFT MAIN: Calcified 90% Distal lesion in LMCA LEFT ANTERIOR DESCENDING ARTERY: LAD: Calcified 100% Mid lesion in LAD RAMUS: Calcified 70% Proximal lesion in Ramus RIGHT CORONARY ARTERY: RCA: Calcified 40% Proximal lesion in RCA Tubular 90% Distal lesion in RCA GRAFTS: SVG Graft to RT PDA Diffuse 100% lesion in SVG Graft to RT PDA LEIGH Graft to LAD SVG Graft to Lat Ramus INTERVENTION INFORMATION LESION SITE: RCA (Distal) Lesion Complexity: High/C, lesion length: 30 mm Pre Stenosis: 80 % Pre intervention KARTHIKEYAN flow: 3 PROCEDURE: Drug Eluting Stent with pre and post dilatation Post Stenosis: 0 % Post intervention KARTHIKEYAN flow: 3 Lesion Devices: Terumo .014 180cm Runthrough Extra Floppy straight Cordis 6 Fr JR4 100cm Guide Catheter V[employer] Solutions 6 Hebrew GuideLiner Carlos Sci EMERGE MR 2.50x12 BALLOON Medtronic 2.50 x 22 ELHAM FRONTIER LISANDRO Medtronic 2.50 x 12 [place]HAM FRONTIER LISANDRO Carlos Sci NC EMERGE MR 2.50x12 BALLOON Carlos Sci NC EMERGE MR 3.00x08 BALLOON COMPLICATIONS No Complications PROCEDURE MEDICATIONS Versed 2 mg IV Fentanyl 50 mcg IV Oxygen: 2 L/min via nasal cannula Oxygen: 3 L/min via nasal cannula Oxygen: 5 L/min via nasal cannula-Dr Simeon aware Oxygen: 100 % FiO2 via non-rebreather mask Heparin given IA 01/29/2024 10:36:05 Heparin 2000 unit(s) IV 01/29/2024 10:57:31 Heparin 7000 unit(s) IV 01/29/2024 11:17:08 Heparin 2000 unit(s) IV 01/29/2024 11:26:20 Lasix 40 mg IV 01/29/2024 11:46:25 Nitro 100 mcg IC 01/29/2024 11:57:06 Verapamil 2.5mg, Ntg 200mcgs, 2000 units of Heparin given IA 01/29/2024 10:36:05 IV Bolus: .9 NaCl 500 ml total 01/29/2024 12:20:38 SUMMARY OF HEMODYNAMIC DATA Time AIR REST ECG 10:17:37 AO 126/45 (70) SA 10:38:07 Signed By Ruibo Simeon MD On 01/29/2024 12:45:19 Ruibo Simeon MD
--- NOTE | 2024-01-29 12:48 | VDLE_ITS ---
Reason For Study: Elevated D-dimer RIGHT LEFT GSV is normal. GSV is normal. CFV is compressible, spontaneous, phasic, CFV is compressible, spontaneous, phasic, competent and demonstrates normal competent, and demonstrates normal augmentation. augmentation. FV is compressible, spontaneous, phasic, FV is compressible, spontaneous, phasic, competent and demonstrates normal competent and demonstrates normal augmentation. augmentation. POP V is compressible, spontaneous, phasic, POP V is compressible, spontaneous, phasic, competent and demonstrates normal competent and demonstrates normal augmentation. augmentation. T/P Trunk is compressible. T/P Trunk is compressible. PTV is compressible. PTV is compressible. RT PerV is compressible. LT PerV is compressible. Procedure This is a venous duplex using B-mode, color flow and spectral Doppler. Exam performed portable in ICU/CCU. A preliminary report was called and/or faxed to Dr. Simeon. VL/Venous Duplex US - Lazaro Extrem Interpretation Summary Deep veins of the bilateral lower extremities are patent and compressible segme ntally. There is no evidence of bilateral lower extremity deep vein thrombosis. The bilateral great saphenous veins appear patent and compressible segmentally. Ordering Physician: Rubio Simeon Referring Physician: Sher Jules M.D. Performed By: Stephenie Contreras RVT
[2024-01-29] MEDS: 0.9% Normal Saline (1000mL) 1,000 ML 100 ML IV (13:03)
[2024-01-29 13:06] LABS: Bedside Glucose 140 mg/dL (74-106)
[2024-01-29 14:09] LABS: ACT Activated Clotting Time 185 sec (74-137)
[2024-01-29 14:09] LABS: ACT Activated Clotting Time 255 sec (74-137)
[2024-01-29 14:10] LABS: ACT Activated Clotting Time 244 sec (74-137)
--- NOTE | 2024-01-29 14:22 | PN_ITS ---
Subjective Subjective Patient seen and examined. He had no active complaints. He hadnt had any more chest pain since admission. He denied any dizziness, lightheadedness, nausea, vomiting or shortness or any other symptoms. He is on 4L of oxygen. Review of systems is otherwise negative. Objective Data Objective Data Vital Signs: Vital Signs Temp Pulse Resp BP Pulse Ox O2 Del Method O2 Flow Rate 98.4 F 66 14 163/62 H 94 Nasal Cannula 4 01/29/24 12:00 01/29/24 13:00 01/29/24 13:00 01/29/24 13:00 01/29/24 13:00 01/29/24 13:00 01/29/24 13:00 Oxygen Flow Rate (L/min) 4 Oxygen Delivery Method Nasal Cannula Weight: 232 lb 12.93 oz Body Mass Index (BMI) 34.4 Intake & Output: Intake and Output for Last 24 Hours 01/27/24 01/28/24 01/29/24 23:59 23:59 23:59 Intake Total 79.8 / 97.8 766.26 / 766.26 Output Total 400 / 400 2575 / 2575 Balance -320.2 / -302.2 -1808.74 / -1808.74 Lab / Micro Data 01/29/24 03:01 01/29/24 03:01 Labs: Laboratory Results - last 24 hr 01/28/24 18:00: WBC 16.8 H, RBC 3.27 L, Hgb 10.7 L, Hct 30.7 L, MCV 93.9, MCH 32.7 H, MCHC 34.9, RDW Std Deviation 39.6, RDW Coeff of Cedric 11.7, Plt Count 339, MPV 9.5, Immature Gran % (Auto) 1.200 H, Neut % (Auto) 91.9 H, Lymph % (Auto) 4.6 L, Cross % (Auto) 2.2, Eos % (Auto) 0.0, Baso % (Auto) 0.1, Absolute Neuts (auto) 15.4 H, Absolute Lymphs (auto) 0.77 L, Nucleated RBC % 0, PT 13.8, INR 1.1, APTT 43.4 H, D-Dimer Quant (PE/DVT) 1.70 H*, Sodium 129 L, Potassium 4.3, Chloride 96 L, Carbon Dioxide 23.0, Anion Gap 10, BUN 22 H, Creatinine 1.11, Estim Creat Clear Calc 71.85, Est GFR (MDRD) Af Amer 84, Est GFR (MDRD) Non-Af 69, BUN/Creatinine Ratio 19.8, Glucose 262 H, Calcium 9.6, Phosphorus 2.2 L, Magnesium 1.6, Total Bilirubin 0.90, Direct Bilirubin 0.30, AST 14 L, ALT 18, Alkaline Phosphatase 104, Troponin I High Sens 339 H*, Total Protein 7.1, Albumin 3.2, Globulin 3.9 01/28/24 20:36: Troponin I High Sens 49150 H*, Procalcitonin 0.04 01/28/24 23:04: POC Glucose 240 H 01/28/24 23:23: Urine Color Yellow, Urine Clarity Clear, Urine pH 6.0, Ur Specific [place] 1.010, Urine Protein Negative, Urine Glucose (UA) 50 H, Urine Ketones Negative, Urine Occult Blood Negative, Urine Nitrite Negative, Urine Bilirubin Negative, Urine Urobilinogen Normal, Ur Leukocyte Esterase Negative, Urine RBC 0 SEEN, Urine WBC 0 SEEN, Ur Squamous Epith Cells 0 SEEN, Urine Bacteria 0 SEEN, Urine Mucus 0 SEEN, Urine Osmolality 286, Ur Random Sodium 50, Urine Creatinine 20.80 01/29/24 00:07: APTT 73.0 H, Troponin I High Sens 60149 H* 01/29/24 03:01: WBC 15.5 H, RBC 2.68 L, Hgb 8.8 L, Hct 24.9 L, MCV 92.9, MCH 32.8 H, MCHC 35.3, RDW Std Deviation 39.3, RDW Coeff of Cedric 11.7, Plt Count 296, MPV 9.3, Immature Gran % (Auto) 0.700, Neut % (Auto) 88.5 H, Lymph % (Auto) 4.7 L, Cross % (Auto) 6.0, Eos % (Auto) 0.0, Baso % (Auto) 0.1, Absolute Neuts (auto) 13.7 H, Absolute Lymphs (auto) 0.73 L, Nucleated RBC % 0, Sodium 130 L, Potassium 3.9, Chloride 97 L, Carbon Dioxide 28.0, Anion Gap 5, BUN 19 H, Creatinine 0.87, Estim Creat Clear Calc 91.90, Est GFR (MDRD) Af Amer 111, Est GFR (MDRD) Non-Af 92, BUN/Creatinine Ratio 21.9 H, Glucose 253 H, Hemoglobin A1c 6.3 H, Calcium 8.8, Phosphorus 3.6, Magnesium 1.9, Iron 87, TIBC 195 L, Iron Saturation 44.6, Ferritin 234, Total Bilirubin 0.70, AST 64 H, ALT 19, Alkaline Phosphatase 85, Total Protein 5.9 L, Albumin 2.6 L, Globulin 3.3, Albumin/Globulin Ratio 0.8 L, Triglycerides 54, Cholesterol 79, LDL Cholesterol 19, VLDL Cholesterol 11, HDL Cholesterol 49, Vitamin B12 424, Folate 17.30, TSH 0.31 L, Free T4 1.27 01/29/24 06:22: POC Glucose 194 H 01/29/24 06:55: APTT 95.3 H* 01/29/24 10:38: Activated Clotting Time 185 H 01/29/24 11:22: Activated Clotting Time 244 H 01/29/24 12:09: Activated Clotting Time 255 H 01/29/24 12:33: POC Glucose 140 H Radiography Diagnostic Testing: Radiology Impression Chest X-Ray 01/28/24 18:48 IMPRESSION: 1.6 cm masslike density in the right upper lobe. Recommend chest CT. Electronically Signed: Paco Bonilla MD at 19:35 EDT , Chest CTA 01/28/24 19:44 IMPRESSION: No evidence of acute pulmonary emboli to the segmental level. Mild interstitial edema. Electronically Signed: Paco Bonilla MD at 22:02 EDT , Echocardiogram 01/28/24 22:17 Interpretation Summary The estimated ejection fraction is 60 %. Stage 2 diastolic dysfunction. Segmental dysfunction with preserved ejection fraction (see wall motion). Mild concentric left ventricular hypertrophy. The right atrium is mildly enlarged. The left atrium is severely enlarged. Mild-Moderate (1-2+) mitral valve insufficiency. Contrast injection was performed. Compared to prior study, changes are noted. Ordering Physician: Geeta Mendoza Referring Physician: Sher Jules M.D. Performed By: Rupa Ramires RDCS Physical Exam Const alert, oriented x3, no apparent distress and well nourished HEENT normocephalic, head/scalp atraumatic, moist oral mucous membranes and oropharynx normal Eyes PERRL and EOMs intact bilaterally Neck no lymphadenopathy, supple and no JVD Lymph Lymphatic: no lymphadenopathy noted and no lymphedema noted Resp normal respiratory effort, normal air movement and clear to auscultation bilaterally Cardio regular rate, regular rhythm, S1 normal heart sound, S2 normal heart sound and no murmurs GI normal to inspection, nondistended, normoactive bowel sounds, soft to palpation and non-tender Extremity normal capillary refill, no clubbing, cyanosis or edema and no calf tenderness General Extremity: no tenderness to palpation of joints or extremities Neuro CN's II-XII intact bilaterally, no focal motor deficits, no sensory deficits noted and deep tendon reflexes 2+ bilaterally Motor Exam: strength 5/5 throughout and general weakness Psych thought process normal, cooperative and affect normal Appearance: appropriate Assessment & Plan Assessment/Plan (1) Chest pain: (2) Diabetes: (3) Dyslipidemia: PLAN: Plan #Chest pain * Recent long distance drive to [place]. CT of the chest was overall negative for any evidence of PE. * Troponins elevated. Currently on heparin drip as well as aspirin and nitro drip. * Cardiology on board. Patient had cardiac cath today which showed 90 to 95% heavily calcified distal LMCA with LEIGH to LAD patent. He was placed on aspirin and Brilinta and had staged PCI to the distal LMCA into ramus artery. * Per cardiology [address]ogram on outpatient basis * Also on high intensity statin. * 2D echo showed EF of 60% with mild concentric left ventricular hypertrophy and stage II diastolic dysfunction as well as segmental dysfunction and severely enlarged left atrium * #Questionable mass in the right upper lobe: This was aspirated chest x-ray. CT of the chest however did not show any evidence of a mass. #Tendinitis of left upper extremity. Was started on steroid taper by his PCP. To complete steroid taper and follow-up with PCP on outpatient basis. #CAD s/p CABG: This was done in 2012. She presented with non-STEMI as above. #Hyperlipidemia: On statin #Hypertension: On amlodipine and quinapril as well as metoprolol and clonidine and hydralazine. #Type 2 diabetes mellitus with neuropathy: On insulin sliding scale. Accu-Cheks ACHS. A1c ordered and pending. Will resume home meds. #DVT prophylaxis: Was on heparin drip on admission though this was discontinued after he went for cardiac cath. SCDs. Charges/Coding Visit Charges Inpatient E&M: 75041 Subs Hosp L2
[2024-01-29] MEDS: hydrALAZINE 50 MG Tablet 100 MG PO ×2 (14:40→20:05)
--- NOTE | 2024-01-29 14:46 | CRPHASE1 ---
Patient Communication Patient Information Former Patient:: Phase I PHII Cardiac Rehab Discussed with Patient:: Yes Guide to Cardiac Rehab Given to Patient:: Yes Cardiac Rehab Facility Choice List Given to Patient:: Yes Communication to Cardiac Rehab Foaming Machine Operator:: Rubio Simeon Sessions:: 36 sessions - 3 days/wk, 12 weeks Cardiac Rehabilitation Info Program Information Cardiac Rehabilitation Program Information: Cardiac Rehab The cardiac rehab team at [facility] consists of highly skilled exercise physiologists, nurses, respiratory therapists and physicians working together with you. Our purpose is to help you have a full recovery and achieve the goals you set for yourself. Over the years many of our patients have returned to activities they assumed they would never do again! We can help restore your confidence and motivation to make lifestyle changes that can have a significant impact on your health and quality of life! We can help answer questions and concerns you may have about exercise, lifestyle, medications, diet, stress and anxiety which are common following a hospitalization. WE monitor ECG and vital signs during exercise and discuss your progress with you and report to your physician(s). Cardiac Rehab is proven to help reduce readmissions, improve functional capacity and lower recurrence of problems with your heart. Our Cardiac Rehab program is Certified by the [place] [employer]-V[employer] Pulmonary [employer] (AACVPR) and Accredited by the [place] [employer] through our [facility]. You can contact us at . We invite you to call us with your questions or to get started in our program. If you have other questions or concerns be sure to ask your physician/provider during your follow-up visit. WE look forward to seeing you!
--- NOTE | 2024-01-29 14:49 | CRPH1.INSTRU ---
General Education Discussed with Patient CAD and cardiac anatomy and function:: Patient communicates acknowledgment Explanation of diagnoses and procedures:: Patient communicates acknowledgment Sign/Symptoms of MO:: Patient communicates acknowledgment Antiplatelet therapy: Patient communicates acknowledgment Proper use of NTG-SL: Patient communicates acknowledgment Emergency procedures and activation of EMS: Patient communicates acknowledgment Compliance of all prescribed medications: Patient communicates acknowledgment Smoking Risk Factors Patient Nicotine/Smoking Risk Factors Are:: Cigarettes Recommendations Recommendations Include:: Second-hand smoke recommendation and Previous smoker; encourage continued cessation Response Code Nicotine/Smoking Response Code:: Patient communicates acknowledgment Dyslipidemia Risk Factors Patient Dyslipidemia Risk Factors Are:: Total Cholesterol, Triglycerides, HDL and LDL Recommendations Recommendations Include:: Lipid profile not available, Reviewed NCEP/ATP guidelines and Therapeutic Lifestyle Change dietary guidelines Response Code Dyslipidemia Response Code:: Patient communicates acknowledgment Overweight/Obesity Recommendations Recommendations Include:: Weight loss of 5-10%, Reduced calorie diet and Exercise 5-7 times/week Response Code Overweight/Obesity:: Patient communicates acknowledgment Hypertension Recommendations Recommendations Include:: Maintain BP <130/85, DASH dietary guidelines, Decrease/maintain normal body weight and Moderation of ETOH Response Code Hypertension:: Patient communicates acknowledgment Heart Disease Risk Factors Patient Heart Disease Risk Factors Are:: Family history of heart disease < 65 years old and Previous cardiac event Recommendations Recommendations Include:: Educated family members of their risk Response Code Heart Disease Response Code:: Patient communicates acknowledgment Diabetes Recommendations Recommendations Include:: Maintain fasting blood sugars 70-110 md/dL, Maintain HgbA1c of 6% or less, Monitor blood sugar as prescribed, Diabetic dietary guidelines and Decrease/maintain body weight Response Code Diabetes:: Patient communicates acknowledgment Metabolic Syndrome Risk Factors Patient Metabolic Syndrome Risk Factors Are [3 of 5]:: Fasting blood sugar > 100 mg/dL, Waist circumference > 35 [female] or 40 [male], High triglyceride >150, Hypertension and Low HDL <40 [male] or < 50 [female] Recommendations Recommendations Include:: Reinforce compliance to risk factor modifications and Encouraged follow-up with Primary Care Physician Response Code Metabolic Syndrome Response Code:: Patient communicates acknowledgment Sedentary Response Code Sedentary Response Code:: Patient communicates acknowledgment Stress Risk Factors Patient Stress Risk Factors Are:: Patient denies stress as a risk factor Recommendations Recommendations Include:: Identification of stressors, and assessment of coping skills and Stress management techniques Response Code Stress Response Code:: Patient communicates acknowledgment
[2024-01-29] MEDS: Insulin Lispro 100 UNIT/ML INSULN.PEN SC ×2 (16:40→21:05)
[2024-01-29 16:59] LABS: Bedside Glucose 254 mg/dL (74-106)
[2024-01-29] MEDS: cloNIDine HCl 0.2 MG Tablet PO (20:06)
[2024-01-29] MEDS: Atorvastatin Calcium 80 MG Tablet PO (20:06)
[2024-01-29] MEDS: Lisinopril 40 MG Tablet PO (20:06)
--- NOTE | 2024-01-29 21:41 | EKG12_ITS ---
Test Reason : Blood Pressure : / mmHG Vent. Rate : 069 BPM Atrial Rate : 069 BPM P-R Int : 170 ms QRS Dur : 092 ms QT Int : 474 ms P-R-T Axes : 011 005 006 degrees QTc Int : 507 ms Sinus rhythm with Premature atrial complexes Prolonged QT Abnormal ECG When compared with ECG of 29-JAN-2024 05:25, Confirmed by YAKOV LADD, THERESA ([id number]), book editor SOLITARIO BECERRA ([id number]) on 01/30/2024 1:39:24 PM Referred By: Rubio Simeon Confirmed By:THERESA NAGY MD
[2024-01-29 21:45] LABS: Bedside Glucose 234 mg/dL (74-106)
[2024-01-29] MEDS: Albuterol 2.5 MG/3 ML VIAL.NEB. INHALATION (21:47)
[2024-01-30] VITALS (12 sets, daily range): BP systolic 128–170; BP diastolic 43–74; PULSE 59–77; RESP 13–18; TEMP 36.3–36.7; O2SAT 97–98; BMI 33.2
[2024-01-30 04:08] LABS: Hematocrit 27.5 % (40-54); Hemoglobin 9.6 g/dL (13.0-16.5); Mean Corp Hgb Conc 34.9 g/dL (32-36); Mean Corpuscular Hgb 32.5 pg (27.0-32.0); Mean Corpuscular Volume 93.2 fL (80-94); Mean Platelet Vol. 9.1 fl (6.2-12.0); Platelet Count 317 K/mm3 (150-450); RBC Distribution Width CV 11.9 % (11.6-14.6); RBC Distribution Width SD 39.7 fl (35.1-43.9); Red Blood Count 2.95 M/mm3 (4.6-6.2); White Blood Count 14.5 K/mm3 (4.4-11.0)
[2024-01-30 04:34] LABS: ALB/GLOB Ratio 0.8 RATIO (0.9-2.4); AST(SGOT) 46 U/L (15-37); Alanine Aminotransfer ALT/SGPT 22 U/L (16-61); Albumin, Serum 2.6 g/dL (3.2-5.0); Alkaline Phosphatase 86 U/L (45-117); Anion Gap 6 (5-15); BUN 16 mg/dL (7-18); BUN/Creat Ratio 21.5 RATIO (10-20); Calcium,Total 8.6 mg/dL (8.5-10.1); Chloride 101 mmol/L (98-107); Creatinine, Serum 0.74 mg/dL (0.70-1.30); EST Glomerular Filtration Rate 110 mL/min (>60); Est Glom Filt Rate - Afr Amer 133 mL/min (>60); Estimated Creatinine Clearance 99.95 ml/min; Globulin 3.4 g/dL (2.2-4.2); Glucose 160 mg/dL (74-106); Potassium 3.5 mmol/L (3.5-5.1); Sodium Level 135 mmol/L (136-145)
[2024-01-30] MEDS: 0.9% Saline Lock 10 ML Syringe IV (06:08)
[2024-01-30] MEDS: hydrALAZINE 50 MG Tablet 100 MG PO (06:08)
--- NOTE | 2024-01-30 06:35 | PCM.HOSP.N ---
Hospitalist Note Telemetry per discussion with staff this AM with questionable PAF, appears intermittent. Every EKG attempt however with SR.
--- NOTE | 2024-01-30 09:21 | PCM.PN.CARD ---
Subjective Subjective Denies any complaints. No chest pains. No shortness of breath. Objective Data Vital Signs: Vital Signs Temp Pulse Resp BP Pulse Ox O2 Del Method O2 Flow Rate 97.3 F L 62 13 154/54 H 97 Nasal Cannula 2 01/30/24 02:00 01/30/24 06:08 01/30/24 06:00 01/30/24 06:08 01/30/24 06:00 01/30/24 06:00 01/30/24 06:00 Oxygen Flow Rate (L/min) 2 Oxygen Delivery Method Nasal Cannula Weight: 225 lb 1.471 oz Body Mass Index (BMI) 33.2 Intake & Output: Intake and Output for Last 24 Hours 01/28/24 01/29/24 01/30/24 23:59 23:59 23:59 Intake Total 79.8 / 97.8 916.26 / 1016.26 1100 / 1100 Output Total 400 / 400 4475 / 4475 400 / 400 Balance -320.2 / -302.2 -3558.74 / -3458.74 700 / 700 Lab / Micro Data 01/30/24 04:00 01/30/24 04:00 Labs: Laboratory Results - last 24 hr 01/29/24 10:38: Activated Clotting Time 185 H 01/29/24 11:22: Activated Clotting Time 244 H 01/29/24 12:09: Activated Clotting Time 255 H 01/29/24 12:33: POC Glucose 140 H 01/29/24 16:39: POC Glucose 254 H 01/29/24 21:04: POC Glucose 234 H 01/30/24 04:00: WBC 14.5 H, RBC 2.95 L, Hgb 9.6 L, Hct 27.5 L, MCV 93.2, MCH 32.5 H, MCHC 34.9, RDW Std Deviation 39.7, RDW Coeff of Cedric 11.9, Plt Count 317, MPV 9.1, Sodium 135 L, Potassium 3.5, Chloride 101, Carbon Dioxide 28.0, Anion Gap 6, BUN 16, Creatinine 0.74, Estim Creat Clear Calc 99.95, Est GFR (MDRD) Af Amer 133, Est GFR (MDRD) Non-Af 110, BUN/Creatinine Ratio 21.5 H, Glucose 160 H, Calcium 8.6, Total Bilirubin 0.80, AST 46 H, ALT 22, Alkaline Phosphatase 86, Total Protein 6.0 L, Albumin 2.6 L, Globulin 3.4, Albumin/Globulin Ratio 0.8 L Rhythm Strip Rhythm Strip: Sinus rhythm with PACs Cardiology Labs/Tests 01/30/24 04:00: WBC 14.5 H, RBC 2.95 L, Hgb 9.6 L, Hct 27.5 L, MCV 93.2, MCH 32.5 H, MCHC 34.9, Plt Count 317, MPV 9.1, Sodium 135 L, Potassium 3.5, Chloride 101, Carbon Dioxide 28.0, Anion Gap 6, BUN 16, Creatinine 0.74, Est GFR (MDRD) Af Amer 133, Est GFR (MDRD) Non-Af 110, BUN/Creatinine Ratio 21.5 H, Glucose 160 H, Calcium 8.6, Total Bilirubin 0.80 Rhythm: EKG: ECHO: Stress Test: Cardiac Cath: PCI: CT Surgery: Holter monitor: EPS: PPM: CXR: Chest CT Scan: Radiography Diagnostic Testing: Radiology Impression Venous Doppler Study 01/29/24 12:48 Interpretation Summary Deep veins of the bilateral lower extremities are patent and compressible segmentally. There is no evidence of bilateral lower extremity deep vein thrombosis. The bilateral great saphenous veins appear patent and compressible segmentally. Ordering Physician: Rubio Simeon Referring Physician: Sher Jules M.D. Performed By: Stephenie Contreras RVT Physical Exam Narrative Comfortable. Lying flat in the bed. No apparent distress. Heart sounds 1 and 2 are normal. 2/6 systolic murmur at base. Chest clear to auscultation bilaterally. Abdomen is soft. Alert oriented x 3. No ankle edema. Assessment & Plan Assessment/Plan (1) NSTEMI (non-ST elevated myocardial infarction): PLAN: Status post PCI to the distal RCA. Continue aspirin. Ticagrelor. (2) CAD (coronary artery disease): PLAN: Severe residual disease in the distal left main coronary artery. Will need PCI with rotablation in a staged manner as outpatient. (3) History of coronary artery bypass graft x 3: PLAN: Will try to get records from [facility]. (4) Hypertension: PLAN: Beta-blockers, amlodipine, clonidine, lisinopril. (5) Dyslipidemia: PLAN: Continue atorvastatin. PLAN: Plan The patient's blood pressure is controlled, then may discharge home later in the day. 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
[2024-01-30] MEDS: cloNIDine HCl 0.2 MG Tablet PO (09:50)
[2024-01-30] MEDS: Metoprolol Tartrate 25 MG Tablet PO (09:50)
[2024-01-30] MEDS: Aspirin E.C. 81 MG Tablet PO (09:50)
[2024-01-30] MEDS: Lisinopril 40 MG Tablet PO (09:50)
[2024-01-30] MEDS: amLODIPine 10 MG Tablet PO (09:50)
[2024-01-30] MEDS: TICAGRELOR 90 MG TABLET PO (09:51)
[2024-01-30] MEDS: predniSONE 10 MG Tablet 40 MG PO (09:51)
[2024-01-30] MEDS: Multivitamins,Therapeutic Tablet 1 TABLET PO (09:51)
[2024-01-30] MEDS: Insulin Lispro 100 UNIT/ML INSULN.PEN SC (09:58)
[2024-01-30] MEDS: Gabapentin 300 MG Capsule PO (10:00)
[2024-01-30] MEDS: Furosemide 40 MG Tablet PO (10:00)
--- NOTE | 2024-01-30 10:00 | EKG12_ITS ---
Test Reason : AM EKG Blood Pressure : / mmHG Vent. Rate : 062 BPM Atrial Rate : 062 BPM P-R Int : 190 ms QRS Dur : 092 ms QT Int : 470 ms P-R-T Axes : 032 009 007 degrees QTc Int : 477 ms Sinus rhythm with Premature atrial complexes Otherwise normal ECG When compared with ECG of 29-JAN-2024 21:41, MANUAL COMPARISON REQUIRED, DATA IS UNCONFIRMED Confirmed by YAKOV LADD, THERESA ([id number]), photography editor SOLITARIO BECERRA ([id number]) on 01/30/2024 1:35:24 PM Referred By: Ruboi Simeon Confirmed By:THERESA NAGY MD
[2024-01-30 10:23] LABS: Bedside Glucose 224 mg/dL (74-106)
--- NOTE | 2024-01-30 11:40 | PCM.DC.SUM ---
Providers Date of Admission: 01/28/24 Date of Discharge: 01/30/24 Primary Care Physician: Dr. Sher Jules MD Consultations 01/28/24 22:17 Consult: Cardiology Routine Consulting Provider: Rubio Simeon Reason for Consult: Chest Pain EMERGENT Consult: No MD Notified: Yes Date Notified: 01/28/24 Time Notified: 19:54 Method of Notification: ED Physician Initiated Reason For Visit: CHEST PAIN, ELEVATED TROP (?NSTEMI) Diagnosis Discharge Diagnosis (1) NSTEMI (non-ST elevated myocardial infarction): Status: Acute Code(s): I21.4 - Non-ST elevation (NSTEMI) myocardial infarction (2) CAD (coronary artery disease): Status: Acute Code(s): I25.10 - Atherosclerotic heart disease of [place] coronary artery without angina pectoris (3) History of coronary artery bypass graft x 3: Status: Acute Code(s): Z95.1 - Presence of aortocoronary bypass graft (4) Hypertension: Status: Chronic Code(s): I10 - Essential (primary) hypertension (5) Dyslipidemia: Status: Acute Code(s): E78.5 - Hyperlipidemia, unspecified Plan #Chest pain Recent long distance drive to [place]. CT of the chest was overall negative for any evidence of PE. Troponins elevated. Currently on heparin drip as well as aspirin and nitro drip. Cardiology on board. Patient had cardiac cath today which showed 90 to 95% heavily calcified distal LMCA with LEIGH to LAD patent. He was placed on aspirin and Brilinta and had staged PCI to the distal LMCA into ramus artery. Per cardiology [address] angiogram on outpatient basis Also on high intensity statin. 2D echo showed EF of 60% with mild concentric left ventricular hypertrophy and stage II diastolic dysfunction as well as segmental dysfunction and severely enlarged left atrium #Questionable mass in the right upper lobe: This was aspirated chest x-ray. CT of the chest however did not show any evidence of a mass. #Tendinitis of left upper extremity. Was started on steroid taper by his PCP. To complete steroid taper and follow-up with PCP on outpatient basis. #CAD s/p CABG: This was done in 2012. She presented with non-STEMI as above. #Hyperlipidemia: On statin #Hypertension: On amlodipine and quinapril as well as metoprolol and clonidine and hydralazine. #Type 2 diabetes mellitus with neuropathy: On insulin sliding scale. Accu-Cheks ACHS. A1c ordered and pending. Will resume home meds. #DVT prophylaxis: Was on heparin drip on admission though this was discontinued after he went for cardiac cath. SCDs. Medications at Discharge Home Medications metformin 500 mg tablet 500 mg PO BID diabetes 04/18/16 multivitamin with folic acid 400 mcg tablet (Thera) 1 tab PO DAILY vitamin 04/18/16 amlodipine 10 mg tablet 10 mg PO DAILY 01/28/24 clonidine HCl 0.2 mg tablet 0.2 mg PO BID 01/28/24 gabapentin 300 mg capsule 300 mg PO DAILY 01/28/24 hydralazine 100 mg tablet 100 mg PO TID 01/28/24 lisinopril 40 mg tablet 40 mg PO BID 01/28/24 prednisone 10 mg tablet See Taper PO TID 01/28/24 aspirin 81 mg tablet,delayed release 81 mg PO BREAKFAST #30 tabs 01/30/24 atorvastatin 80 mg tablet 80 mg PO QHS #30 tabs 01/30/24 furosemide 40 mg tablet 40 mg PO DAILY #30 tabs 01/30/24 metoprolol tartrate 25 mg tablet 25 mg PO BID #60 tabs 01/30/24 potassium chloride 20 mEq tablet,extended release(part/cryst) 20 meq PO DAILYCM #30 tabs 01/30/24 ticagrelor 90 mg tablet (Brilinta) 90 mg PO BID #60 tabs 01/30/24 Hospital Course Operations None Procedures 2-D Echocardiogram and Cardiac catheterization Summary of Care Provided Minutes Spent on Discharge: 45 Hospital Course: Patient is a 74-year-old male with an extensive past medical history as outlined who was admitted through the ED on 01/28/2024 with a complaint of chest pain. He had had a recent 16-hour car drive from [place] for few days prior to admission. He had been started on prednisone for left upper extremity tendinitis by his PCP as well. His chest pain radiated into his left arm and he was noted to be hypoxic on admission 2. EKG showed paroxysmal atrial complexes with ST depression in the inferior and lateral leads the repeat EKG showed these had resolved. Chest x-ray showed a questionable 1.6 cm masslike density in the right upper lobe. CT of the chest done was negative for any evidence of PE and showed no evidence of a lung mass. Initial troponin was 339 but subsequently trended upwards. He was admitted and managed for non-STEMI. Cardiology was consulted. He was placed on heparin drip and also required nitro drip due to persistent chest pain. His chest pain subsequently improved. He had cardiac cath on 01/29/2024 which showed severe residual disease in the distal left main coronary artery. He was continued on his aspirin and placed on Brilinta per cardiology. He had 2D echo which showed EF of 60% with severe LV segmental dysfunction and severely enlarged left atrium and mildly enlarged right atrium. Per cardiology, he will need PCI with rotablation in a staged manner as outpatient. He did have a history of CAD status post CABG x 3. He was continued on his amlodipine, clonidine and lisinopril. His carvedilol was switched to metoprolol and he was also placed on high sensitivity troponin. His cilostazol was discontinued. He remained stable and was discharged home on 01/30/2024. He is to follow-up with his PCP and with cardiology within 1 to 2 weeks. Patient seen and examined prior to discharge. He had no active complaints. He had an uneventful night. Review of systems otherwise negative. Labs and vitals reviewed. Medication reviewed and will consult. Physical Exam Const alert, oriented x3, no apparent distress and well nourished General Appearance: cooperative, comfortable and well kempt Orientation / Consciousness: awake HEENT normocephalic, head/scalp atraumatic, hearing grossly normal bilaterally, moist oral mucous membranes and oropharynx normal Mouth: oral and palatal mucosa normal Eyes PERRL, EOMs intact bilaterally and conjunctivae normal Neck no lymphadenopathy, supple and no JVD Lymph Lymphatic: no lymphadenopathy noted and no lymphedema noted Resp normal respiratory effort, normal air movement, no retractions and clear to auscultation bilaterally Cardio regular rate, regular rhythm, S1 normal heart sound, S2 normal heart sound and no murmurs GI normal to inspection, nondistended, normoactive bowel sounds, soft to palpation and non-tender Extremity normal to inspection, full ROM, normal capillary refill, no clubbing, cyanosis or edema and no calf tenderness General Extremity: no tenderness to palpation of joints or extremities Skin no rashes or lesions noted Neuro oriented x3, CN's II-XII intact bilaterally, moves all extremities, no focal motor deficits, no sensory deficits noted and deep tendon reflexes 2+ bilaterally Sensorium / Orientation: awake and alert Motor Exam: strength 5/5 throughout and general weakness Psych thought process normal, cooperative and affect normal Appearance: appropriate Weight / BMI Weight Weight: 225 lb 1.471 oz Body Mass Index (BMI) 33.2 ABG / Lab / Microbiology Data 01/30/24 04:00 01/30/24 04:00 Laboratory: Laboratory Results - last 24 hr 01/29/24 10:38: Activated Clotting Time 185 H 01/29/24 11:22: Activated Clotting Time 244 H 01/29/24 12:09: Activated Clotting Time 255 H 01/29/24 12:33: POC Glucose 140 H 01/29/24 16:39: POC Glucose 254 H 01/29/24 21:04: POC Glucose 234 H 01/30/24 04:00: WBC 14.5 H, RBC 2.95 L, Hgb 9.6 L, Hct 27.5 L, MCV 93.2, MCH 32.5 H, MCHC 34.9, RDW Std Deviation 39.7, RDW Coeff of Cedric 11.9, Plt Count 317, MPV 9.1, Sodium 135 L, Potassium 3.5, Chloride 101, Carbon Dioxide 28.0, Anion Gap 6, BUN 16, Creatinine 0.74, Estim Creat Clear Calc 99.95, Est GFR (MDRD) Af Amer 133, Est GFR (MDRD) Non-Af 110, BUN/Creatinine Ratio 21.5 H, Glucose 160 H, Calcium 8.6, Total Bilirubin 0.80, AST 46 H, ALT 22, Alkaline Phosphatase 86, Total Protein 6.0 L, Albumin 2.6 L, Globulin 3.4, Albumin/Globulin Ratio 0.8 L 01/30/24 09:57: POC Glucose 224 H Radiography Diagnostic Testing: Radiology Impression Venous Doppler Study 01/29/24 12:48 Interpretation Summary Deep veins of the bilateral lower extremities are patent and compressible segmentally. There is no evidence of bilateral lower extremity deep vein thrombosis. The bilateral great saphenous veins appear patent and compressible segmentally. Ordering Physician: Rubio Simeon Referring Physician: Sher Jules M.D. Performed By: Stephenie Contreras RVT D/C Instructions Discharge Diet: Low fat / Low cholesterol Discharge Activity: Return to Normal Activity Weight Bearing Status: Weight bearing as tolerated Call your doctor if you observe: Fever of 101 or Higher, Shortness of breath, Dizziness, Swelling in the ankles, Chest pain and Increased palpitations (irregular heartbeat) Meaningful Use Info Meaningful Use Diagnoses (Choose all that apply): AMI AMI/Post PCI/Angioplasty Aspirin given w/in 24hrs of arrival?: Yes ASA at discharge?: Yes Antiplatelet Therapy at Discharge:: Yes Statins at discharge?: Yes Momo/ARB at discharge?: Yes Beta German at discharge?: Yes Done w/ Acute [place] measure.: Yes Documented LVEF (%): 60 Discharge Plan Admission Admit Date/Time: 01/28/24 19:50 Primary Reason for Your Visit: nonstemi Attending Provider: Debby Machuca Primary Care Provider: Sher Jules Consulting Providers: Geeta Mendoza; Rubio Simeon Instructions Patient Instructions: Heart Attack Dc, Exercising After a Heart Attack, Heart Attack Meds Discharge Orders/Prescriptions Prescriptions: New furosemide 40 mg Tablet 40 mg PO DAILY Qty: 30 2RF potassium chloride 20 mEq Tablet,Er Particles/Crystals 20 meq PO DAILYCM Qty: 30 1RF metoprolol tartrate 25 mg Tablet 25 mg PO BID Qty: 60 2RF Brilinta 90 mg Tablet 90 mg PO BID Qty: 60 2RF atorvastatin 80 mg Tablet 80 mg PO QHS Qty: 30 2RF aspirin 81 mg Tablet,Delayed Release (Dr/Ec) 81 mg PO BREAKFAST Qty: 30 2RF Continued metformin 500 MG tablet 500 mg PO BID Hold Instructions: Hold for 2 days. multivitamin with folic acid [Thera] 1 TABLET tablet 1 tab PO DAILY clonidine HCl 0.2 mg tablet 0.2 mg PO BID amlodipine 10 mg tablet 10 mg PO DAILY gabapentin 300 mg capsule 300 mg PO DAILY hydralazine 100 mg tablet 100 mg PO TID lisinopril 40 mg tablet 40 mg PO BID prednisone 10 mg tablet See Taper PO TID Taper: Prednisone Taper 30 mg WITH BREAKFAST for 3 Days 20 mg WITH BREAKFAST for 3 Days 10 mg WITH BREAKFAST for 3 Days Rx Instructions: 10 mg orally; Discontinued aspirin [Adult Low Dose Aspirin] 81 MG tablet,delayed release (DR/EC) 162 mg PO DAILY cilostazol 100 mg tablet 100 mg PO BID Patient Comments: take 1 tablet by mouth twice a day atorvastatin 40 mg Tablet 40 mg PO DAILY carvedilol 12.5 mg tablet 12.5 mg PO BID Referrals / Follow Up: Rubio Simeon MD [Med Staff - Active Staff] - Within 2 Weeks Sher Jules MD [Primary Care Provider] - Within 2 Weeks Disposition Disposition (needs filled in before D/C Order can be placed): Home, Self Care Charges/Coding Visit Charges Inpatient E&M: 66513 Disch Hosp >30min
--- NOTE | 2024-01-30 11:57 | CASEMGMT ---
TC to [facility] pharmacy, pt cost is $429 for brilinta. RN CM into pt room, pt sitting up in chair with and son at bedside. Provided pt with a brilinta savings card and provided explanation. Pt denies any homegoing needs, states he feels strong enough and safe to go home. Pt nurse updated pt ready for dc from a CM standpoint.
== END 2024-01-30 13:45 | disposition home or self-care (01) | DRG 322 ==
LOC: ED 18:13 → ICU 20:13
PROVIDERS: Admitting Provider Family Medicine; Emergency Provider Student in an Organized Health Care Education/Training Program; PCP Internal Medicine; Referring Provider Internal Medicine Cardiovascular Disease; Visit Provider Student in an Organized Health Care Education/Training Program
DX: I21.4 Non-ST elevation (NSTEMI) myocardial infarction (principal); E87.1 Hypo-osmolality and hyponatremia; I50.30 Unspecified diastolic (congestive) heart failure; E11.40 Type 2 diabetes mellitus with diabetic neuropathy, unspecified; E87.8 Other disorders of electrolyte and fluid balance, not elsewhere classified; I11.0 Hypertensive heart disease with heart failure; I24.89 Other forms of acute ischemic heart disease; E78.5 Hyperlipidemia, unspecified; I25.10 Atherosclerotic heart disease of native coronary artery without angina pectoris; M70.822 Other soft tissue disorders related to use, overuse and pressure, left upper arm; X50.1XXA Overexertion from prolonged static or awkward postures, initial encounter; R09.02 Hypoxemia; R91.8 Other nonspecific abnormal finding of lung field; Z95.1 Presence of aortocoronary bypass graft; Z79.02 Long term (current) use of antithrombotics/antiplatelets; Z79.82 Long term (current) use of aspirin; Z79.84 Long term (current) use of oral hypoglycemic drugs; Z79.899 Other long term (current) drug therapy; Z87.891 Personal history of nicotine dependence
CPT/HCPCS: 71045; 71275; 80048; 80053; 80061; 80076; 81001; 82570; 82607; 82728; 82746; 82962; 83036; 83540; 83550; 83735; 83935; 84100; 84145; 84300; 84439; 84443; 84484; 85025; 85027; 85347; 85379; 85610; 85730; 92928; 93005; 93306; 93455; 93970; 94640; 94668; 94762; 97802; 99152; 99153; 99285; J7030; J7050; Q9957; Q9967; A4216; C1725; C1769; C1874; C1887; C1894; C8929; C9600; J1940

== ENCOUNTER → 2024-02-19 | Outpatient (CLI) | payer MEDICARE, OTHER, SELFPAY ==
--- NOTE | 2024-02-19 14:27 | CR.ITP_ITS ---
Diagnosis General Information Admitting Diagnosis: PTCA, PCI w/coronary stenting Secondary Diagnosis: I25.10, I10, E78.5 Personal Learning Style:: Audio/Visual and Written Barriers to Learning: Vision Impairment Stage of change r/t lifestyle modifications:: Action Gave educational material for:: Treating Heart Disease, How The Heart Works, What it means to have Heart Disease, How Coronary Artery Disease is Diagnosed, Heart Procedures, What Heart Medications Do, Risk Factors & Modifications, Living an Active Life, Nutrition, Emotions & Heart Disease, Stress Management & Relaxation and Sleep Disorders & Heart Disease Education/Goals Individual Counseling: Initial Assessment: Abnormal Cholesterol Levels, High Blood Pressure and Overweight/Obesity Cardiac Rehabilitation Goals Personal Goals: Initial Assessment: Participate in home exercise program and Improve muscle strength and endurance Scale for measuring improvement of personal goals Diagnosis & Disease Process Outcomes/Goals: Pt IDs own risk factors & lifestyle modifications by Session 10, Verbalizes symptoms of angina & response by session 3. and Pt independently manages Plan/Interventions: Assist Pt to ID & engage in lifestyle modification to reduce CVD risk, Instruct on individual risk factors and Review symptoms of angina & emergency actions Safety Referral to Physical Therapy: No Referral to [facility] Case Management: No Fall Risk Assessed:: Yes Assistive Devices:: None Exercise - Initial Assessment Visit Date of Eval: 02/19/24 Session #:: 0 (Pre-program evaluation) Mets: Pre-: >5 METS for 30 minutes by discharge Physician Prescribed Exercise Modalities: Treadmill, Airdyne and NuStep Frequency: 3x/week for 12 weeks [36 sessions] Intensity: 60-80% of age predicted maximum heart rate reserve Duration: 30 - 45 minutes Current METSs:: 3.0 Target Heart Rate:: 96-111 Resting Blood Pressure: 123/68 EKG Type: Sinus bradycardia w/premature atrial complexes Outcomes & Goals Goals:: Verbalizes understanding of THR, RPE & goal METS by session 6, Documents in home exercise log/reports 30 min aerobic 5 day/wk by DC and Demonstrates accurate pulse taking by DC Intervention & Plan Exercise Program Goals: Instruct on personal THR & RPE, Instruct on MET level & personal MET goal, Show patient to take own pulse /validate performance until accurate and Instruct on home exercise Physical Activity Home Exercise Physical Activity - Home Exercise: Safe Exercise, Warm-up, Self-monitoring, Cool-Down, Home Exercise > 30 min Daily and Sitting Time <3 hours/daily Outcomes & Goals Outcomes/Goals: Demonstrates correct Warm-up/exercise Cool-Down (S3) if = 2.5 METs, Verbalizes symptoms of exercise intolerance by Session 3 (S3) and Demonstrate safe equipment use (S3) & follows exercise prescrition (6) Intervention & Plan Plan/Intervention: Instruct warm-up & cool-down if exercising at > 2 METs, Instruct on symptoms of exercise intolerance & actions to take, Instruct & monitor on saf and Assess intial functional capacity & safety risk Nutrition - Initial Assessment Program Goals Nutrition Program Goals Patient has diagnosis of Hyperlipidemia (ICD E78)?: Yes Visit Date of Eval: 02/19/24 Session #:: 0 (pre-program evaluation) Cholesterol/Lipids (Other Core Measures) Triglycerides (mg/dL): 52 Total Cholesterol (mg/dL): 124 LDL Cholesterol (mg/dL): 45 HDL Cholesterol (mg/dL): 69 Determine presence & major risk factors that modify LDL goal: Hypertension or hypertensive medication, Family history of premature CHD in Male < 55 years: female <65 yearsFa and Age men > 45 years; women >/= 55 years Outcomes/Goals: Pt IDs own risk factors & lifestyle modifications by Session 10, Verbalizes symptoms of angina & response by session 3. and Pt independently manages Intervention/Plan: Instruct on personal lipid levels & lipid goals/NCEP guidelines and Instruct on cholesterol Diabetes (Other Core Measures) Diabetes Type: Diagnosis Type II ICD-10 E11 Insulin dependent injection/pump?: No Non-Insulin Dependent?: Yes (Metformin) Do you monitor your blood sugar at home?: Yes Referral to Diabetic Clinic:: Yes Intervention/Plan:: Refer to Weight Mgt (Other Care) Not Applicable: Yes Height: 5 ft 10 in Weight:: 209 lb BMI: 29.9 Diagnosis Overweight/Obesity BMI> 30% ICD-10 E66: Yes Diagnosis High BMI/Morbid Obesity BMI> 35% ICD-10 Z68: No Outcomes/Goals: Pt sets, maintains & shows weight loss goal & trend during rehab Intervention/Plan: Instruct on ideal BMI & set weight loss goal w/patient and Refer to Structured Weight Loss program as appropriate Healthy Eating Habits Will attend diet classes:: Yes Outcomes/Goals:: Consume diet rich in vegs,fruits,whole grain/high fiber,fish,lean meat and Limit sat/trans fats,cholesterol & added salts & sugars Intervention/Plan:: Assess current eating habits Education Gave educational materials for:: Relate diabetes to coronary artery disease and Healthy eating Core - Initial Assessment Visit Date of Eval: 02/19/24 Session #:: 0 (pre-program evaluation) Medication Compliance Preventative Medication(s):: Aspirin, Ticagrelor/P2Y12 inhibitor, Statin/lipid and Beta luis alberto H/O mental health issues: depression, anxiety, or addiction?: No Doesn?t believe in the benefits of treatment?: No Believes medications are unnecessary or harmful?: No Has a concern about medication side effects?: No Expresses concern over the cost of medications?: No Outcomes/Goals: Verbalizes medications,desired effect & common side effects @ DC, Pt self-reports following medication regimen and Keeps card in wallet w/m edications listed by DC Interventions/plans: Instruct on medication effects & side effects, Review medication list w/patient every two weeks and Instruct importance of taking meds as ordered & assist problem solving Tobacco Use Tobacco Use: Cigarettes How long ago did you quit using tobacco products?: Less than 6 months ago How many cigarettes do you smoke per day?: 1.0 Years Smokin Do you use smokeless tobacco?: No Outcomes/Goals: Smoking cessation achieved or maintained by discharge and Identify aids/strategies for achieving smoking cessation by session 6 Interventions/plan: Instruct on effects of smoking & provide smoking cessation resource, Assist pt to set quit date & provide encouragement, Assist pt to develop strategies to achieve/maintain quit date and Assist pt w/nicotine replacement & medication for cessation success Hypertension Hypertension Diagnosis:: Hypertension ICD-10 I10 Resting Blood Pressure:: 123/68 [place] [employer] Hypertension Guidelines Outcomes/Goals: Able to verbalize/achieve optimal blood pressure <130/80 and Incorporates diet changes & exercise for blood pressure control by DC Interventions/plan: Instruct on optimal blood pressure, hypertension & medications and Instruct on effects of sodium, alcohol, stress, exercise &hypertension Tobacco Cessation Referral Smoking Cessation Referral:: Yes Individual Education/Counseling:: Yes Education Schedule Given:: Yes Psychosocial - Initial Assess VIsit Date of Eval: 02/19/24 Session #:: 0 (pre-program evaluation) Not Applicable: Yes History of previous Mental disease:: No Target Goals Target Goals Psychosocial Test Tool Used:: [employer] QOL Cardiac and PHQ-9 Questionnaire phq-9 Severity Referral to Behavioral Health PS - Interventions: Yes: Attend Stress Management Classes and No: Referral to Behavioral Health if PHQ-9 score >9:, No: Referral to [facility] and No: Referral to Physician if PHQ-9 if score is 5-9: Outcomes/Goals: See list Psychosocial Outcomes/Goals:: ID's personal stressors & 2 strategies to manage stress by discharge Intervention/Plan: See List Interventions/Plan:: Assess stressors,coping strategies & signs of derpression on admission, Instruct/assist pt to develop coping & personal stress Mgt strategies, Instruct patient to recognize signs & symptoms of depression and Instruct patient to recog Patient Health Questionnaire PHQ-9 Screening Initial Assessment: 1. Little interest or pleasure in doing things: Several days 2. Feeling down, depressed, or hopeless: Not at all 3. Trouble falling or staying asleep, or sleeping too much: More than half the days 4. Feeling tired or having little energy: Several days 5. Poor appetite or overeating: Not at all 6. Feeling bad about yourself -- or that you are a failure or have let yourself or your family down: Not at all 7. Trouble concentrating on things, such as reading the newspaper or watching television: Not at all 8. Moving or speaking so slowly that other people could have noticed. Or the opposite - being so fidgety or restless that you have been moving around a lot more than usual: Not at all 9. Thoughts that you would be better off , or of hurting yourself in some way: Not at all How difficult have these problems made it for you to do your work, take care of things at home, or get along with other people?: Not difficult at all Total Score: 4 OBI-Q SV Test Statements CAD is a disease of the arteries in the heart: False Examples of risk factors for heart disease: False Angina is chest pain or discomfort: False The benefits of resistance training include: False Eating more meat and dairy products: True Anti-platelet medications such as aspirin are important: I Don't Know The only effective way to manage stress: I Don't Know An exercise warm-up slowly increases heart rate: False Prepared, processed foods usually have high sodium: True Depression is common after a heart attack: False The statin medications lower cholesterol: True To control blood pressure, lower the amount of sodium: True If someone gets chest discomfort during walking: I Don't Know Transfats are partially hydrogenated vegetable oils: True Sleep apnea that is not treated increases the risk: I Don't Know To control cholesterol, one should become a vegetarian: False Someone knows if he/she is exercising at the right level: I Don't Know Diabetes cannot be prevented with exercise & health eating: False Stress is a large risk for heart attack: True A diet that can help lower blood pressure is rich in: True Total Score Total Correct Responses: 9 Self-Efficacy 6-Item Scale Initial Assessment: We would like to know how confident you are in doing certain activities. Please select your confidence level for: Fatigue Select Number: 7 Physical Discomfort or Pain Select Number: 9 Emotional Distress Select Number: 9 Other Symptoms or Health Problems Select Number: 9 Different Tasks and Activities Select Number: 9 Medication Select Number: 3 Total Score:: 7 Nutrition Survey Nutrition Survey Instructions Scoring Instructions Nutrition Survey Initial: Have you lost >10 lbs over the past 2 months without trying?: No Are you following a special diet at home for diabetes, low fat, or low salt?: No Are you interested in meeting with a dietitian for help understanding your diet?: No Do you eat less than 3 meals a day?: Yes Do you eat fatty meats (hernandez, sausage, ribs, etc), fried foods, desserts, large amounts of salad dressings, margarine, butter, or cheese most days?: No Do you have food allergies? [Enter types in comment field]: No Do you eat in restaurants more than 3 times a week?: Yes Do you season food with salt, seasoning salt, or garlic salt?: No Do you used canned, boxed, frozen meals, or soups, seasoning packets?: No Total Score:: 2 Exercise - Final/Discharge Physician Prescribed Exercise Modalities: Treadmill, Airdyne and NuStep Frequency: 3x/week for 12 weeks [36 sessions] Intensity: 60-80% of age predicted maximum heart rate reserve Current METSs:: 3.0 Target Heart Rate:: 96-111 Nutrition - 30-Day Assessment Weight Mgt (Other Care) Height: 5 ft 10 in Weight:: 209 lb BMI: 29.9 Nutrition - 60-Day Assessment Weight Mgt (Other Care) Height: 5 ft 10 in Weight:: 209 lb BMI: 29.9 Core - 30-Day Assessment Visit Session #:: 0 (Pre-program evaluation) Tobacco Use Years Smokin Core - Final Assessment Hypertension Resting Blood Pressure:: 123/68 [place] [employer] Hypertension Guidelines Core - 60-Day Assessment Hypertension Resting Blood Pressure:: 123/68 [place] [employer] Hypertension Guidelines Psychosocial - 30-Day Assess Target Goals Target Goals Referral to Behavioral Health PS - Interventions: Yes: Attend Stress Management Classes and No: Referral to Behavioral Health if PHQ-9 score >9:, No: Referral to [facility] and No: Referral to Physician if PHQ-9 if score is 5-9: Psychosocial - 60-Day Assess Target Goals Target Goals Referral to Behavioral Health PS - Interventions: Yes: Attend Stress Management Classes and No: Referral to Behavioral Health if PHQ-9 score >9:, No: Referral to [facility] and No: Referral to Physician if PHQ-9 if score is 5-9: Psychosocial - 90-Day Assess Target Goals Target Goals Referral to Behavioral Health PS - Interventions: Yes: Attend Stress Management Classes and No: Referral to Behavioral Health if PHQ-9 score >9:, No: Referral to [facility] and No: Referral to Physician if PHQ-9 if score is 5-9: Psychosocial - Final Assessmen Target Goals Target Goals Referral to Behavioral Health PS - Interventions: Yes: Attend Stress Management Classes and No: Referral to [facility] if PHQ-9 score >9:, No: Referral to [facility] and No: Referral to Physician if PHQ-9 if score is 5-9: Nutrition - 90-Day Assessment Weight Mgt (Other Care) Height: 5 ft 10 in Weight:: 209 lb BMI: 29.9 Nutrition - Final Assessment Program Goals Patient has diagnosis of Hyperlipidemia (ICD E78)?: Yes Weight Mgt (Other Care) Height: 5 ft 10 in Weight:: 209 lb BMI: 29.9
--- NOTE | 2024-02-19 14:27 | CR.HP_ITS ---
CR - History & Physical General Arrival date:: 02/19/24 Arrival time:: 14:27 Date of Referral:: 02/10/24 Date of CR Evaluation:: 02/19/24 Referring Physician: Dr. Bib Patterson Primary Diagnosis: PTCA, PCI w/coronary stenting History of Present Cardiac Event Onset Date Acute Myocardial Infarction within 12 months:: Yes (NSTEMI 01/29/2024) Coronary Artery Bypass Graft:: Yes (10/20/2013 triple bypass per patient) PTCA or coronary stenting:: Yes Type of Symptoms:: aching feeling in the left arm Interventions with present event:: heart cath procedure Were there any complications?: No Medications Ambulatory Orders Medication Instructions Recorded metformin 500 mg tablet 500 mg PO BID diabetes 04/18/16 multivitamin with folic acid 400 1 tab PO DAILY vitamin 04/18/16 mcg tablet (Thera) amlodipine 10 mg tablet 10 mg PO DAILY 01/28/24 clonidine HCl 0.2 mg tablet 0.2 mg PO BID 01/28/24 gabapentin 300 mg capsule 300 mg PO DAILY 01/28/24 hydralazine 100 mg tablet 100 mg PO TID 01/28/24 lisinopril 40 mg tablet 40 mg PO BID 01/28/24 prednisone 10 mg tablet See Taper PO TID 01/28/24 aspirin 81 mg tablet,delayed 81 mg PO BREAKFAST #30 tabs 01/30/24 release atorvastatin 80 mg tablet 80 mg PO QHS #30 tabs 01/30/24 furosemide 40 mg tablet 40 mg PO DAILY #30 tabs 01/30/24 metoprolol tartrate 25 mg tablet 25 mg PO BID #60 tabs 01/30/24 potassium chloride 20 mEq 20 meq PO DAILYCM #30 tabs 01/30/24 tablet,extended release(part/cryst) ticagrelor 90 mg tablet (Brilinta) 90 mg PO BID #60 tabs 01/30/24 Allergies Allergies No Known Allergies Allergy (Verified 01/28/24 17:55) Sleep Disorder Evaluation Hx of Sleep Apnea: No Do you snore loudly (louder than talking or can be heard through closed doors)?: Yes Do you often feel tired/ fatigued/ sleepy during daytime?: No Has anyone observed you stop breathing during sleep?: Yes History of Hypertension (for STOP score): Yes STOP Results: Positive; tested 3 years Advanced Directives Advanced Directives Power of Php Software Engineer: Yes Living Will: Yes Advance Directives Information Provided: No Advance Directives on File: Yes DNR Order?:: No MOLST See MOLST form: No Past Medical History Covid-19 Screening Physicial Symptoms Fever: No Unexplained muscle aches: No Current respiratory symptoms: No Upper respiratory infections symptoms: No Gastro-intestinal symptoms: No [id number] symptoms: No Other Clinical Concerns Has tested positive for COVID-19 in last 30 days: No Exposure Risk Had contact w/person w/symptoms or Covid-19 (+) last 14 days: No Has High Risk Exposures ID'd by Health dept/Inf Control team: No Pertinent Comorbidities 65 years or older:: Yes Lives in Assisted Living facility:: No Has a chronic lung disease or moderate to severe asthma:: No Has a serious heart condition:: Yes Immunocompromised:: No Severely obese (Body Mass Index of 40 or higher):: No Diabetic:: Yes Has chronic kidney disease undergoing dialysis:: No Has liver disease:: No Past Medical Illness Past Medical History (Updated 02/19/24 @ 14:57 by Thanh Louie CRT, VIMAL, BS) 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 CAD (coronary artery disease) I25.10 Chest pain R07.9 Diabetes E11.9 Diabetes mellitus, type 2 E11.9 Dyslipidemia E78.5 Essential (primary) hypertension I10 Former tobacco use Z87.891 Hyperlipemia E78.5 Hypertension I10 NSTEMI (non-ST elevated myocardial infarction) I21.4 Obesity E66.9 Peripheral vascular disease, unspecified I73.9 Past Surgical History Past Surgical History (Updated 02/19/24 @ 14:57 by Thanh Louie CRT, VIMAL, BS) 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 H/O angioplasty Z98.62 H/O coronary angioplasty Z98.61 History of coronary artery bypass graft x 3 Z95.1 Stented coronary artery (01/29/24) Z95.5 2.5 X 22 and 2.5 X 12 [place] LISANDRO to distal RCA (01/29/24) Family History Summary Family History (Reviewed 02/19/24 @ 14:36 by Thanh Freehahn, CIGAR PACKER AND GRADER, REMOTE SENSING TECHNOLOGIST, BS) Mother Cancer Father CVA (cerebral vascular accident) Social History Smoking History Smoking Status: Former smoker Years Smokin Packs Smoked per Day: 1.0 Hx Smoking Cessation Date: 10/30/02 Hx Tobacco Use: Yes Hx Smoking Exposure: Yes Alcohol Use Alcohol Usage: Yes (42.0 - 12 ounce beers per week.) Substance Abuse Hx Substance Use: Yes (2.0 times per week; use of marijuana) Occupation Occupation (List type of work in comments):: Retired Hobbies, Recreation, Social Activities Hobbies: Woodworking, Reading and Other (working around the house, tinkering, fixing things.) Recreational Activities: I am able to engage in all my recreational activities (in different fashion as far as speed goes, just don't work as hard.) Social Environment Status Marital Status: Current Living Arrangements Living Environment:: Spouse Children How many children do you have?: 2 Do any of your children live nearby?: Yes Safety Do you feel safe in your surroundings?: Yes Assistance Do you need any assistance at home?: no Review of Systems Review of Systems Hints Review of Present Symptoms: Reports Shortness of Breath with Exertion (YEs. some.), PVD (H/O FEM/POP bypass), Fatigue (get a little sluggish in the morning after taking my medications, nap for about an hour.), Appetite - Normal, Appetite - Special Diet (Cut down red meat, no sodium, low fat, low cholesterol since 2012.) and Sleep - Normal; Denies Shortness of Breath at Rest, Angina, Dizziness/Lightheadedness or Heart Arrhythmia/Irregularities Pain Is Patient Pain Free?: Yes Pain Location: none Risk Factor Assessment Vital Signs Respiratory Rate: 14 Pulse Ox: 98 Blood Pressure: 123/68 Pulse Pulse Rate: 84 Pulse Rhythm: Regular Hypertension On medication(s)?: Yes Blood Pressure Sitting - Left Arm: 123/68 Blood Cholesterol/Lipids Total Cholesterol (mg/dL) Goal = less than 200 mg/dL: 124 HDL Cholesterol (mg/dL) Goal = less than 40 mg/dL: 69 LDL Cholesterol (mg/dL) Goal = less than 70 mg/dL: 45 Triglycerides (mg/dL) Goal = less than 150 mg/dL: 52 Diabetes Diabetic History: Type II and Medication Dependent (Metformin) Nutrition Referral for Diabetes: Yes Obesity Height: 5 ft 9 in Weight:: 209 lb Weight in Pounds: 209.0 lbs Weight Source: Stated by Patient Body Mass Index (BMI): 30.8 Nutritional Referral for Obesity: Yes Physical Inactivity Physical Inactivity: None Risk Stratification Risk Guidelines: Lowest Risk: Risk Factor for Dyslipidemia, Risk Factor for Diabetes, Risk Factor for Hypertension, Risk Factor for Sedentary Lifestyle and Risk Factor for Depression and Highest Risk: Risk Factor for Smoking and Risk Factor for Obesity For Smoking Smoking Risk Guidelines For Dyslipidemia Dyslipidemia Risk Guidelines For Diabetes Mellitus Diabetes Risk Guidelines For Obesity/Overweight Obesity/Overweight Risk Guidelines For Hypertension Hypertension Risk Guidelines For Sedentary Lifestyle Sedentary Lifestyle Risk Guidelines For Depression Depression Risk Guidelines Family History Family History (Reviewed 02/19/24 @ 14:36 by Thanh Louie, CIGAR PACKER AND GRADER, REMOTE SENSING TECHNOLOGIST, BS) Mother Cancer Father CVA (cerebral vascular accident) Motivation Motivation to Participate On a scale of 1 to 10, how prepared are you to commit to attending program?: 7 What do you see as barriers to successfully being able to complete the program?: just another scheduled appointment to deal with What do you see as the benefits of succesfully completing the program? In other words, what do you hope to get out of participating in the program?: Don't see one, been through this before. Are there issues you are dealing with that will interfere with completing the program?: No Do you have a spouse or signficant other, family or friends who will help support you to complete the program?: Yes.
[2024-02-19 14:44] VITALS: BP 123/68; BMI 29.9
[2024-02-19 14:49] VITALS: BP 123/68; PULSE 84; RESP 14; O2SAT 98; BMI 30.8
== END | disposition home or self-care (01) ==
PROVIDERS: PCP Internal Medicine; Referring Provider Internal Medicine Cardiovascular Disease; Visit Provider Internal Medicine Cardiovascular Disease
DX: E11.9 Type 2 diabetes mellitus without complications (principal)

== ENCOUNTER 2024-02-24 13:00 | Outpatient (RCR) | payer MEDICARE, OTHER, SELFPAY ==
[2024-02-19 14:44] VITALS: BMI 29.9
== END 2024-02-25 23:59 ==
LOC: CR 13:00
PROVIDERS: PCP Internal Medicine; Referring Provider Internal Medicine Cardiovascular Disease; Visit Provider Internal Medicine Cardiovascular Disease
DX: I25.10 Atherosclerotic heart disease of native coronary artery without angina pectoris (principal); Z98.61 Coronary angioplasty status
CPT/HCPCS: 93798

== ENCOUNTER 2024-03-27 13:00 | Outpatient (RCR) | payer MEDICARE, OTHER, SELFPAY ==
[2024-02-19 14:44] VITALS: BMI 29.9
--- NOTE | 2024-03-20 08:38 | PCM.CR.ITP ---
Exercise - Initial Assessment Visit Session #:: 12 Physician Prescribed Exercise Modalities: Treadmill, Schwinn Airdyne AD-7 and SciFit Stepper Nutrition - Initial Assessment Weight Mgt (Other Care) Height: 5 ft 10 in Weight:: 208 lb BMI: 29.8 Core - Initial Assessment Tobacco Use Years Smokin Psychosocial - Initial Assess Target Goals Target Goals Patient Health Questionnaire PHQ-9 Screening 30-Day Re-eval Assessment: 1. Little interest or pleasure in doing things: Several days 2. Feeling down, depressed, or hopeless: Not at all 3. Trouble falling or staying asleep, or sleeping too much: More than half the days 4. Feeling tired or having little energy: Several days 5. Poor appetite or overeating: Not at all 6. Feeling bad about yourself -- or that you are a failure or have let yourself or your family down: Not at all 7. Trouble concentrating on things, such as reading the newspaper or watching television: Not at all 8. Moving or speaking so slowly that other people could have noticed. Or the opposite - being so fidgety or restless that you have been moving around a lot more than usual: Not at all 9. Thoughts that you would be better off , or of hurting yourself in some way: Not at all How difficult have these problems made it for you to do your work, take care of things at home, or get along with other people?: Not difficult at all Total Score: 4 Self-Efficacy 6-Item Scale 30-Day Re-eval Assessment: We would like to know how confident you are in doing certain activities. Please select your confidence level for: Fatigue Select Number: 7 Physical Discomfort or Pain Select Number: 9 Emotional Distress Select Number: 9 Other Symptoms or Health Problems Select Number: 9 Different Tasks and Activities Select Number: 9 Medication Select Number: 9 Total Score:: 8 Nutrition Survey Nutrition Survey Instructions Scoring Instructions Exercise - 30-day Assessment Visit Date of Eval: 03/20/24 Session #:: 12 Physician Prescribed Exercise Modalities: Treadmill, Schwinn Airdyne AD-7 and SciFit Stepper Frequency: 3x/week for 12 weeks [36 sessions] Intensity: 60-80% of age predicted maximum heart rate reserve Duration: 30 - 45 minutes Current METSs:: 4 Target Heart Rate:: 96-111 Current RPE:: 11 Maximum Excercise HR:: 65 Resting Blood Pressure: 114/46 Maximum Exercise Blood Pressure: 122/46 EKG Type: SB to NSR vs rare sinus arrthymia, occ pac, rare pvc Outcomes & Goals Goals:: Verbalizes understanding of THR, RPE & goal METS by session 6, Documents in home exercise log/reports 30 min aerobic 5 day/wk by DC, Demonstrates accurate pulse taking by DC and Other additional outcome/goals: see below Intervention & Plan Exercise Program Goals: Instruct on personal THR & RPE, Instruct on MET level & personal MET goal, Show patient to take own pulse /validate performance until accurate, Instruct on home exercise and Other additional plan/int 30-day Reassessments 30 day Reassessments:: Progressing Reassessment Notes & Comments:: RPE explained Physical Activity Home Exercise Physical Activity - Home Exercise: Safe Exercise, Warm-up, Self-monitoring, Cool-Down, Home Exercise > 30 min Daily and Sitting Time <3 hours/daily Outcomes & Goals Outcomes/Goals: Demonstrates correct Warm-up/exercise Cool-Down (S3) if = 2.5 METs, Verbalizes symptoms of exercise intolerance by Session 3 (S3), Demonstrate safe equipment use (S3) & follows exercise prescrition (6) and Other: See below Intervention & Plan Plan/Intervention: Instruct warm-up & cool-down if exercising at > 2 METs, Instruct on symptoms of exercise intolerance & actions to take, Instruct & monitor on saf, Assess intial functional capacity & safety risk and Other See below 30-day Reassessments 30 day Reassessments:: Progressing Reassessment Notes & Comments:: warm up encouraged Exercise - 60-day Assessment Physician Prescribed Exercise Modalities: Treadmill, Schwinn Airdyne AD-7 and SciFit Stepper Exercise - 90-day Assessment Physician Prescribed Exercise Modalities: Treadmill, Schwinn Airdyne AD-7 and SciFit Stepper Exercise - Final/Discharge Physician Prescribed Exercise Modalities: Treadmill, Schwinn Airdyne AD-7 and SciFit Stepper Nutrition - 30-Day Assessment Program Goals Nutrition Program Goals Patient has diagnosis of Hyperlipidemia (ICD E78)?: Yes Visit Date of Eval: 03/20/24 Session #:: 12 Cholesterol/Lipids (Other Core Measures) Determine presence & major risk factors that modify LDL goal: Hypertension or hypertensive medication, Low HDL cholesterol <40 mg/dL*, Family history of premature CHD in Male < 55 years: female <65 yearsFa and Age men > 45 years; women >/= 55 years Outcomes/Goals: Pt IDs own risk factors & lifestyle modifications by Session 10, Verbalizes symptoms of angina & response by session 3., Pt independently manages and Other Additional Outcomes/Goals: Intervention/Plan: Advocate for lipid panel cholesterol medication if applicable, Instruct on personal lipid levels & lipid goals/NCEP guidelines, Instruct on cholesterol and Other additional plan/int 30-day Reassessments:: Progressing Reassessment Notes & Comments:: pt to attend nutrition class Diabetes (Other Core Measures) Diabetes Type: Diagnosis Type II ICD-10 E11 Insulin dependent injection/pump?: No Non-Insulin Dependent?: Yes Do you monitor your blood sugar at home?: Yes Referral to Diabetic Clinic:: Yes Outcomes/Goals:: Able to state symptoms of, Able to state, Able to state and Other additional Intervention/Plan:: Instruct on, Refer to, Instruct on and Other 30-day Reassessments:: Progressing Reassessment Notes & Comments:: 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 pt to attend nutrition class Weight Mgt (Other Care) Height: 5 ft 10 in Weight:: 208 lb BMI: 29.8 Diagnosis Overweight/Obesity BMI> 30% ICD-10 E66: No Diagnosis High BMI/Morbid Obesity BMI> 35% ICD-10 Z68: No Outcomes/Goals: Pt sets, maintains & shows weight loss goal & trend during rehab and Other additional outcomes/goals Intervention/Plan: Instruct on ideal BMI & set weight loss goal w/patient, Assist pt to ID & incorporate diet changes for weight loss by S9, Refer to Structured Weight Loss program as appropriate, Encourage goal of using 250-300dcal per session for weight loss and Other additional plan/interventions 30 day Reassessments:: Progressing Reassessment Notes & Comments:: pt to attend nutrition class Healthy Eating Habits Will attend diet classes:: Yes Outcomes/Goals:: Consume diet rich in vegs,fruits,whole grain/high fiber,fish,lean meat, Limit sat/trans fats,cholesterol & added salts & sugars and Other additional outcome/goals: Intervention/Plan:: Assess current eating habits and Other Additional plan/interventions 30-day Reassessments:: Progressing Reassessment Notes & Comments:: pt to attend nutrition class Education Gave educational materials for:: Signs & symptoms of hypoglycemia, Signs & symptoms of hyperglycemia, Relate diabetes to coronary artery disease and Healthy eating Nutrition - 60-Day Assessment Weight Mgt (Other Care) Height: 5 ft 10 in Weight:: 208 lb BMI: 29.8 Core - 30-Day Assessment Visit Date of Eval: 03/20/24 Session #:: 12 Medication Compliance Preventative Medication(s):: Aspirin, Ticagrelor/P2Y12 inhibitor, Statin/lipid and Beta luis alberto H/O mental health issues: depression, anxiety, or addiction?: No Doesn?t believe in the benefits of treatment?: No Believes medications are unnecessary or harmful?: No Has a concern about medication side effects?: No Expresses concern over the cost of medications?: No Outcomes/Goals: Verbalizes medications,desired effect & common side effects @ DC, Pt self-reports following medication regimen, Keeps card in wallet w/medications listed by DC and Other additional outcome/goals: Interventions/plans: Instruct on medication effects & side effects, Review medication list w/patient every two weeks, Instruct importance of taking meds as ordered & assist problem solving and Other additional 30-day Reassessments:: Progressing Reassessment Notes & Comments:: pt encouraged to take his meds Tobacco Use Tobacco Use: Cigarettes How long ago did you quit using tobacco products?: Less than 6 months ago How many cigarettes do you smoke per day?: 1.0 Years Smokin Do you use smokeless tobacco?: No Outcomes/Goals: Smoking cessation achieved or maintained by discharge, Identify aids/strategies for achieving smoking cessation by session 6 and Other additional outcome/goals Interventions/plan: Instruct on effects of smoking & provide smoking cessation resource, Assist pt to set quit date & provide encouragement, Assist pt to develop strategies to achieve/maintain quit date, Assist pt w/nicotine replacement & medication for cessation success and Other additional plan/interventions 30-day Reassessments:: Progressing Reassessment Notes & Comments:: pt is currently not smoking Hypertension Hypertension Diagnosis:: Hypertension ICD-10 I10 Resting Blood Pressure:: 114/46 [place] [employer] Hypertension Guidelines Peak Exercise Blood Pressure:: 122/46 Outcomes/Goals: Able to verbalize/achieve optimal blood pressure <130/80, Incorporates diet changes & exercise for blood pressure control by DC and Other additional outcomes/goals Interventions/plan: Instruct on optimal blood pressure, hypertension & medications, Instruct on effects of sodium, alcohol, stress, exercise &hypertension and Other additional plan/interventions 30 day Reassessments:: Progressing Reassessment Notes & Comments:: pt encouraged to take his meds Tobacco Cessation Referral Smoking Cessation Referral:: Yes Individual Education/Counseling:: Yes Education Schedule Given:: Yes Psychosocial - 30-Day Assess VIsit Date of Eval: 03/20/24 Session #:: 12 History of previous Mental disease:: No Target Goals Target Goals Outcomes/Goals: See list Psychosocial Outcomes/Goals:: ID's personal stressors & 2 strategies to manage stress by discharge and Other Additional outcome/goals: Intervention/Plan: See List Interventions/Plan:: Assess stressors,coping strategies & signs of derpression on admission, Instruct/assist pt to develop coping & personal stress Mgt strategies, Refer to Behavioral Health if appropriate, Refer to Physician if appropriate, Instruct patient to recognize signs & symptoms of depression, Instruct patient to recog and Other additional plan/intervention 30-day Reassessments: 30 day Reassessments:: Met Psychosocial - 60-Day Assess Target Goals Target Goals Outcomes/Goals: See list Psychosocial Outcomes/Goals:: ID's personal stressors & 2 strategies to manage stress by discharge and Other Additional outcome/goals: Psychosocial - 90-Day Assess Target Goals Target Goals Psychosocial - Final Assessmen Target Goals Target Goals Nutrition - 90-Day Assessment Weight Mgt (Other Care) Height: 5 ft 10 in Weight:: 208 lb BMI: 29.8 Nutrition - Final Assessment Weight Mgt (Other Care) Height: 5 ft 10 in Weight:: 208 lb BMI: 29.8
[2024-03-20 08:52] VITALS: BP 114/46; BMI 29.8
== END 2024-03-27 23:59 ==
LOC: CR 13:00
PROVIDERS: PCP Internal Medicine; Referring Provider Internal Medicine Cardiovascular Disease; Visit Provider Internal Medicine Cardiovascular Disease
DX: I25.10 Atherosclerotic heart disease of native coronary artery without angina pectoris (principal); Z98.61 Coronary angioplasty status
CPT/HCPCS: 93798

== ENCOUNTER 2024-04-24 13:00 | Outpatient (RCR) | payer MEDICARE, OTHER, SELFPAY ==
[2024-03-20 08:52] VITALS: BMI 29.8
[2024-03-28 00:52] VITALS: BP 114/46
--- NOTE | 2024-04-20 05:19 | CR.ITP_ITS ---
Exercise - Initial Assessment Physician Prescribed Exercise Modalities: Treadmill, Schwinn Airdyne AD-7 and SciFit Stepper Nutrition - Initial Assessment Weight Mgt (Other Care) Height: 5 ft 10 in Weight:: 198 lb 8 oz BMI: 28.5 Psychosocial - Initial Assess Target Goals Target Goals Referral to Behavioral Health PS - Interventions: Yes: Attend Stress Management Classes and No: Referral to Behavioral Health if PHQ-9 score >9:, No: Referral to [facility] and No: Referral to Physician if PHQ-9 if score is 5-9: Patient Health Questionnaire PHQ-9 Screening 60-Day Re-eval Assessment: 1. Little interest or pleasure in doing things: Not at all 2. Feeling down, depressed, or hopeless: Not at all 3. Trouble falling or staying asleep, or sleeping too much: More than half the days 4. Feeling tired or having little energy: Several days 5. Poor appetite or overeating: Not at all 6. Feeling bad about yourself -- or that you are a failure or have let yourself or your family down: Not at all 7. Trouble concentrating on things, such as reading the newspaper or watching television: Not at all 8. Moving or speaking so slowly that other people could have noticed. Or the opposite - being so fidgety or restless that you have been moving around a lot more than usual: Not at all 9. Thoughts that you would be better off , or of hurting yourself in some way: Not at all How difficult have these problems made it for you to do your work, take care of things at home, or get along with other people?: Not difficult at all Total Score: 3 Self-Efficacy 6-Item Scale 60-Day Re-eval Assessment: We would like to know how confident you are in doing certain activities. Please select your confidence level for: Fatigue Select Number: 9 Physical Discomfort or Pain Select Number: 9 Emotional Distress Select Number: 9 Other Symptoms or Health Problems Select Number: 9 Different Tasks and Activities Select Number: 9 Medication Select Number: 7 Total Score:: 8 Nutrition Survey Nutrition Survey Instructions Scoring Instructions Exercise - 30-day Assessment Physician Prescribed Exercise Modalities: Treadmill, Schwinn Airdyne AD-7 and SciFit Stepper Exercise - 60-day Assessment Visit Date of Eval: 04/20/24 Session #:: 23 Physician Prescribed Exercise Modalities: Treadmill, Schwinn Airdyne AD-7 and SciFit Stepper Frequency: 3x/week for 12 weeks [36 sessions] Intensity: 60-80% of age predicted maximum heart rate reserve Duration: 30 - 45 minutes Current METSs:: 5.0 Target Heart Rate:: 96-111 Current RPE:: 11-13 Maximum Excercise HR:: 87 Resting Blood Pressure: 128/70 EKG Type: Sinus cata to sinus rhythm, sinus arrythmia, rare PACs Current Physical Activity or Exercising minutes: 38:52 Outcomes & Goals Goals:: Verbalizes understanding of THR, RPE & goal METS by session 6, Documents in home exercise log/reports 30 min aerobic 5 day/wk by DC and Demonstrates accurate pulse taking by DC Intervention & Plan Exercise Program Goals: Instruct on personal THR & RPE, Instruct on MET level & personal MET goal, Show patient to take own pulse /validate performance until accurate and Instruct on home exercise 30-day Reassessments 30 day Reassessments:: Met Physical Activity Home Exercise Physical Activity - Home Exercise: Safe Exercise, Warm-up, Self-monitoring, Cool-Down, Home Exercise > 30 min Daily and Sitting Time <3 hours/daily Outcomes & Goals Outcomes/Goals: Demonstrates correct Warm-up/exercise Cool-Down (S3) if = 2.5 METs, Verbalizes symptoms of exercise intolerance by Session 3 (S3) and Demonstrate safe equipment use (S3) & follows exercise prescrition (6) Intervention & Plan Plan/Intervention: Instruct warm-up & cool-down if exercising at > 2 METs, I nstruct on symptoms of exercise intolerance & actions to take, Instruct & monitor on saf and Assess intial functional capacity & safety risk 30-day Reassessments 30 day Reassessments:: Met Exercise - 90-day Assessment Physician Prescribed Exercise Modalities: Treadmill, Schwinn Airdyne AD-7 and SciFit Stepper Exercise - Final/Discharge Physician Prescribed Exercise Modalities: Treadmill, Schwinn Airdyne AD-7 and SciFit Stepper Nutrition - 30-Day Assessment Weight Mgt (Other Care) Height: 5 ft 10 in Weight:: 198 lb 8 oz BMI: 28.5 Nutrition - 60-Day Assessment Program Goals Nutrition Program Goals Patient has diagnosis of Hyperlipidemia (ICD E78)?: Yes Visit Date of Eval: 04/20/24 Session #:: 23 Cholesterol/Lipids (Other Core Measures) Total Triglycerides (mg/dL): 54 Total Cholesterol: 79 LDL Cholesterol (mg/dL): 19 HDL Cholesterol (mg/dL): 49 Determine presence & major risk factors that modify LDL goal: Hypertension or hypertensive medication and Low HDL cholesterol <40 mg/dL* Outcomes/Goals: Pt IDs own risk factors & lifestyle modifications by Session 10, Verbalizes symptoms of angina & response by session 3. and Pt independently manages Intervention/Plan: Instruct on personal lipid levels & lipid goals/NCEP guidelines and Instruct on cholesterol Referral to dietitian:: No (After speaking with the patient, they indicated they are not interested) 30-day Reassessments:: Met Diabetes (Other Core Measures) Diabetes Type: Diagnosis Type II ICD-10 E11 Fasting blood glucose:: 160 Hgb A1C (4.2 -6.3): 6.3 Insulin dependent injection/pump?: Yes Non-Insulin Dependent?: Yes Do you monitor your blood sugar at home?: Yes Referral to Diabetic Clinic:: Yes Outcomes/Goals:: Able to state symptoms of, Able to state and Able to state Intervention/Plan:: Instruct on and Instruct on 30-day Reassessments:: Met Weight Mgt (Other Care) Height: 5 ft 10 in Weight:: 198 lb 8 oz BMI: 28.5 Diagnosis Overweight/Obesity BMI> 30% ICD-10 E66: No Diagnosis High BMI/Morbid Obesity BMI> 35% ICD-10 Z68: No Outcomes/Goals: Pt sets, maintains & shows weight loss goal & trend during rehab Intervention/Plan: Instruct on ideal BMI & set weight loss goal w/patient 30 day Reassessments:: Met Healthy Eating Habits Will attend diet classes:: Yes Outcomes/Goals:: Consume diet rich in vegs,fruits,whole grain/high fiber,fish,lean meat and Limit sat/trans fats,cholesterol & added salts & sugars Intervention/Plan:: Assess current eating habits 30-day Reassessments:: Met Education Gave educational materials for:: Signs & symptoms of hypoglycemia, Signs & symptoms of hyperglycemia, Relate diabetes to coronary artery disease and Healthy eating Core - 60-Day Assessment Visit Date of Eval: 04/20/24 Session #:: 23 Medication Compliance Preventative Medication(s):: Aspirin, Clopidogrel/P2Y12 inhibit, Statin/lipid and Beta luis alberto H/O mental health issues: depression, anxiety, or addiction?: No Doesn?t believe in the benefits of treatment?: No Believes medications are unnecessary or harmful?: No Has a concern about medication side effects?: No Expresses concern over the cost of medications?: No Outcomes/Goals: Verbalizes medications,desired effect & common side effects @ DC, Pt self-reports following medication regimen and Keeps card in wallet w/medications listed by DC Interventions/plans: Instruct on medication effects & side effects and Instruct importance of taking meds as ordered & assist problem solving 30-day Reassessments:: Met Tobacco Use Tobacco Use: Non-smoker Hypertension Hypertension Diagnosis:: Hypertension ICD-10 I10 Resting Blood Pressure:: 128/70 [place] [employer] Hypertension Guidelines Peak Exercise Blood Pressure:: 150/52 Outcomes/Goals: Able to verbalize/achieve optimal blood pressure <130/80 and Incorporates diet changes & exercise for blood pressure control by DC Interventions/plan: Instruct on optimal blood pressure, hypertension & medications and Instruct on effects of sodium, alcohol, stress, exercise &hypertension 30 day Reassessments:: Met Tobacco Cessation Referral Smoking Cessation Referral:: No Individual Education/Counseling:: No Education Schedule Given:: Yes Psychosocial - 30-Day Assess Target Goals Target Goals Referral to Behavioral Health PS - Interventions: Yes: Attend Stress Management Classes and No: Referral to Behavioral Health if PHQ-9 score >9:, No: Referral to [facility] and No: Referral to Physician if PHQ-9 if score is 5-9: Outcomes/Goals: See list Psychosocial Outcomes/Goals:: ID's personal stressors & 2 strategies to manage stress by discharge Psychosocial - 60-Day Assess VIsit Date of Eval: 04/20/24 Session #:: 23 Not Applicable: Yes History of previous Mental disease:: No Target Goals Target Goals Psychosocial Test Tool Used:: PHQ-9 Questionnaire phq-9 Severity Referral to Behavioral Health PS - Interventions: Yes: Attend Stress Management Classes and No: Referral to Behavioral Health if PHQ-9 score >9:, No: Referral to [facility] and No: Referral to Physician if PHQ-9 if score is 5-9: Outcomes/Goals: See list Psychosocial Outcomes/Goals:: ID's personal stressors & 2 strategies to manage stress by discharge Intervention/Plan: See List Interventions/Plan:: Instruct/assist pt to develop coping & personal stress Mgt strategies, Instruct patient to recognize signs & symptoms of depression and Instruct patient to recog 30-day Reassessments: 30 day Reassessments:: Met Psychosocial - 90-Day Assess Target Goals Target Goals Referral to Behavioral Health PS - Interventions: Yes: Attend Stress Management Classes and No: Referral to Behavioral Health if PHQ-9 score >9:, No: Referral to [facility] and No: Referral to Physician if PHQ-9 if score is 5-9: Psychosocial - Final Assessmen Target Goals Target Goals Referral to Behavioral Health PS - Interventions: Yes: Attend Stress Management Classes and No: Referral to Behavioral Health if PHQ-9 score >9:, No: Referral to [facility] and No: Referral to Physician if PHQ-9 if score is 5-9: Nutrition - 90-Day Assessment Weight Mgt (Other Care) Height: 5 ft 10 in Weight:: 198 lb 8 oz BMI: 28.5 Nutrition - Final Assessment Weight Mgt (Other Care) Height: 5 ft 10 in Weight:: 198 lb 8 oz BMI: 28.5
[2024-04-20 05:22] VITALS: BP 128/70
[2024-04-20 05:32] VITALS: BP 128/70; BMI 28.5
== END 2024-04-26 23:59 ==
LOC: CR 13:00
PROVIDERS: PCP Internal Medicine; Referring Provider Internal Medicine Cardiovascular Disease; Visit Provider Internal Medicine Cardiovascular Disease
DX: I25.10 Atherosclerotic heart disease of native coronary artery without angina pectoris (principal); Z98.61 Coronary angioplasty status
CPT/HCPCS: 93798

== ENCOUNTER 2024-05-27 13:00 | Outpatient (RCR) | payer MEDICARE, OTHER, SELFPAY ==
[2024-04-27 00:35] VITALS: BP 114/46; BP 128/70; BMI 29.8
--- NOTE | 2024-05-20 08:41 | CR.ITP_ITS ---
Exercise - Initial Assessment Physician Prescribed Exercise Modalities: Treadmill, Schwinn Airdyne AD-7 and SciFit Stepper Nutrition - Initial Assessment Weight Mgt (Other Care) Height: 5 ft 10 in Weight:: 193 lb 8 oz BMI: 27.7 Psychosocial - Initial Assess Target Goals Target Goals Patient Health Questionnaire PHQ-9 Screening 90-Day Re-eval Assessment: 1. Little interest or pleasure in doing things: Not at all 2. Feeling down, depressed, or hopeless: Not at all 3. Trouble falling or staying asleep, or sleeping too much: More than half the days 4. Feeling tired or having little energy: Several days 5. Poor appetite or overeating: Not at all 6. Feeling bad about yourself -- or that you are a failure or have let yourself or your family down: Not at all 7. Trouble concentrating on things, such as reading the newspaper or watching television: Not at all 8. Moving or speaking so slowly that other people could have noticed. Or the opposite - being so fidgety or restless that you have been moving around a lot more than usual: Not at all 9. Thoughts that you would be better off , or of hurting yourself in some way: Not at all How difficult have these problems made it for you to do your work, take care of things at home, or get along with other people?: Not difficult at all Total Score: 3 Self-Efficacy 6-Item Scale 90-Day Re-eval Assessment: We would like to know how confident you are in doing certain activities. Please select your confidence level for: Fatigue Select Number: 9 Physical Discomfort or Pain Select Number: 9 Emotional Distress Select Number: 9 Other Symptoms or Health Problems Select Number: 9 Different Tasks and Activities Select Number: 9 Medication Select Number: 7 Total Score:: 8 Nutrition Survey Nutrition Survey Instructions Scoring Instructions Exercise - 30-day Assessment Physician Prescribed Exercise Modalities: Treadmill, Schwinn Airdyne AD-7 and SciFit Stepper Exercise - 60-day Assessment Physician Prescribed Exercise Modalities: Treadmill, Schwinn Airdyne AD-7 and SciFit Stepper Exercise - 90-day Assessment Visit Date of Eval: 05/20/24 Session #:: 32 Physician Prescribed Exercise Modalities: Treadmill, Schwinn Airdyne AD-7 and SciFit Stepper Frequency: 3x/week for 12 weeks [36 sessions] Intensity: 60-80% of age predicted maximum heart rate reserve Duration: 30 - 45 minutes Current METSs:: 5 Target Heart Rate:: 96-111 Current RPE:: 11 Maximum Excercise HR:: 78 Resting Blood Pressure: 138/50 Maximum Exercise Blood Pressure: 140/40 EKG Type: SB to NSR versus sinus arrhythmia, rare to occas PAC, rare PVC Outcomes & Goals Goals:: Verbalizes understanding of THR, RPE & goal METS by session 6, Documents in home exercise log/reports 30 min aerobic 5 day/wk by DC, Demonstrates accurate pulse taking by DC and Other additional outcome/goals: see below Intervention & Plan Exercise Program Goals: Instruct on personal THR & RPE, Instruct on MET level & personal MET goal, Show patient to take own pulse /validate performance until accurate, Instruct on home exercise and Other additional plan/int 30-day Reassessments 30 day Reassessments:: Met Physical Activity Home Exercise Physical Activity - Home Exercise: Safe Exercise, Warm-up, Self-monitoring, Cool-Down, Home Exercise > 30 min Daily and Sitting Time <3 hours/daily Outcomes & Goals Outcomes/Goals: Demonstrates correct Warm-up/exercise Cool-Down (S3) if = 2.5 METs, Verbalizes symptoms of exercise intolerance by Session 3 (S3), Demonstrate safe equipment use (S3) & follows exercise prescrition (6) and Other: See below Intervention & Plan Plan/Intervention: Instruct warm-up & cool-down if exercising at > 2 METs, Instruct on symptoms of exercise intolerance & actions to take, Instruct & monitor on saf, Assess intial functional capacity & safety risk and Other See below 30-day Reassessments 30 day Reassessments:: Met Exercise - Final/Discharge Physician Prescribed Exercise Modalities: Treadmill, Schwinn Airdyne AD-7 and SciFit Stepper Nutrition - 30-Day Assessment Weight Mgt (Other Care) Height: 5 ft 10 in Weight:: 193 lb 8 oz BMI: 27.7 Nutrition - 60-Day Assessment Weight Mgt (Other Care) Height: 5 ft 10 in Weight:: 193 lb 8 oz BMI: 27.7 Core - 90 Day Assessment Visit Date of Eval: 05/20/24 Session #:: 33 Medication Compliance Preventative Medication(s):: Aspirin, Clopidogrel/P2Y12 inhibit, Ticagrelor/P2Y 12 inhibitor, Statin/lipid and Beta luis alberto H/O mental health issues: depression, anxiety, or addiction?: No Doesn?t believe in the benefits of treatment?: No Believes medications are unnecessary or harmful?: No Has a concern about medication side effects?: No Expresses concern over the cost of medications?: No Outcomes/Goals: Verbalizes medications,desired effect & common side effects @ DC, Pt self-reports following medication regimen, Keeps card in wallet w/medications listed by DC and Other additional outcome/goals: Interventions/plans: Instruct on medication effects & side effects, Review medication list w/patient every two weeks, Instruct importance of taking meds as ordered & assist problem solving and Other additional 30-day Reassessments:: Met Tobacco Use Tobacco Use: Non-smoker Hypertension Hypertension Diagnosis:: Hypertension ICD-10 I10 Resting Blood Pressure:: 138/50 [place] [employer] Hypertension Guidelines Peak Exercise Blood Pressure:: 140/40 Outcomes/Goals: Able to verbalize/achieve optimal blood pressure <130/80, Incorporates diet changes & exercise for blood pressure control by DC and Other additional outcomes/goals Interventions/plan: Instruct on optimal blood pressure, hypertension & medications, Instruct on effects of sodium, alcohol, stress, exercise &hypertension and Other additional plan/interventions 30 day Reassessments:: Met Tobacco Cessation Referral Smoking Cessation Referral:: No Individual Education/Counseling:: No Education Schedule Given:: Yes Psychosocial - 30-Day Assess Target Goals Target Goals Psychosocial - 60-Day Assess Target Goals Target Goals Psychosocial - 90-Day Assess VIsit Date of Eval: 05/20/24 Session #:: 32 History of previous Mental disease:: No Target Goals Target Goals Outcomes/Goals: See list Psychosocial Outcomes/Goals:: ID's personal stressors & 2 strategies to manage stress by discharge and Other Additional outcome/goals: Intervention/Plan: See List Interventions/Plan:: Assess stressors,coping strategies & signs of derpression on admission, Instruct/assist pt to develop coping & personal stress Mgt strategies, Refer to Behavioral Health if appropriate, Refer to Physician if appropriate, Instruct patient to recognize signs & symptoms of depression, Instruct patient to recog and Other additional plan/intervention 30-day Reassessments: 30 day Reassessments:: Met Psychosocial - Final Assessmen Target Goals Target Goals Nutrition - 90-Day Assessment Program Goals Nutrition Program Goals Patient has diagnosis of Hyperlipidemia (ICD E78)?: Yes Visit Date of Eval: 05/20/24 Session #:: 32 Cholesterol/Lipids (Other Core Measures) Determine presence & major risk factors that modify LDL goal: Hypertension or hypertensive medication, Low HDL cholesterol <40 mg/dL*, Family history of premature CHD in Male < 55 years: female <65 yearsFa and Age men > 45 years; women >/= 55 years Outcomes/Goals: Pt IDs own risk factors & lifestyle modifications by Session 10, Verbalizes symptoms of angina & response by session 3., Pt independently manages and Other Additional Outcomes/Goals: Intervention/Plan: Advocate for lipid panel cholesterol medication if applicable, Instruct on personal lipid levels & lipid goals/NCEP guidelines, Instruct on cholesterol and Other additional plan/int 30-day Reassessments:: Met Diabetes (Other Core Measures) Diabetes Type: Diagnosis Type II ICD-10 E11 Fasting blood glucose:: 253 Insulin dependent injection/pump?: Yes Non-Insulin Dependent?: Yes Do you monitor your blood sugar at home?: Yes Outcomes/Goals:: Able to state symptoms of, Able to state, Able to state and Other additional Intervention/Plan:: Instruct on, Refer to, Instruct on and Other 30-day Reassessments:: Met Weight Mgt (Other Care) Height: 5 ft 10 in Weight:: 193 lb 8 oz BMI: 27.7 Diagnosis Overweight/Obesity BMI> 30% ICD-10 E66: No Diagnosis High BMI/Morbid Obesity BMI> 35% ICD-10 Z68: No Outcomes/Goals: Pt sets, maintains & shows weight loss goal & trend during rehab and Other additional outcomes/goals Intervention/Plan: Instruct on ideal BMI & set weight loss goal w/patient, Assist pt to ID & incorporate diet changes for weight loss by S9, Refer to Structured Weight Loss program as appropriate, Encourage goal of using 250- 300dcal per session for weight loss and Other additional plan/interventions 30 day Reassessments:: Met Healthy Eating Habits Will attend diet classes:: Yes Outcomes/Goals:: Consume diet rich in vegs,fruits,whole grain/high fiber,fish,lean meat, Limit sat/trans fats,cholesterol & added salts & sugars and Other additional outcome/goals: Intervention/Plan:: Assess current eating habits and Other Additional plan/interventions 30-day Reassessments:: Met Education Gave educational materials for:: Signs & symptoms of hypoglycemia, Signs & symptoms of hyperglycemia, Relate diabetes to coronary artery disease and Healthy eating Nutrition - Final Assessment Weight Mgt (Other Care) Height: 5 ft 10 in Weight:: 193 lb 8 oz BMI: 27.7
[2024-05-20 08:47] VITALS: BP 138/50
[2024-05-20 08:53] VITALS: BP 138/50; BMI 27.7
== END 2024-05-27 23:59 ==
LOC: CR 13:00
PROVIDERS: PCP Internal Medicine; Referring Provider Internal Medicine Cardiovascular Disease; Visit Provider Internal Medicine Cardiovascular Disease
DX: I25.10 Atherosclerotic heart disease of native coronary artery without angina pectoris (principal); Z98.61 Coronary angioplasty status
CPT/HCPCS: 93798

== ENCOUNTER → 2024-06-08 | Outpatient (CLI) | payer MEDICARE, OTHER, SELFPAY ==
[2024-05-28 11:15] VITALS: BMI 27.7
== END | disposition home or self-care (01) ==
PROVIDERS: PCP Internal Medicine; Referring Provider Nurse Practitioner Gerontology; Visit Provider Nurse Practitioner Gerontology
DX: R00.1 Bradycardia, unspecified (principal)
CPT/HCPCS: 93225; 93226

== ENCOUNTER 2024-06-23 12:30 | Outpatient (CLI) | payer MEDICARE, OTHER, SELFPAY ==
[2024-05-28 11:15] VITALS: BMI 27.7
--- NOTE | 2024-06-23 12:35 | CT_ITS ---
STUDY: CT CHEST WITH T WITHOUT CONTRAST REASON FOR EXAM: Male, 74 years old. Atherosclerotic heart disease of [place] coronary artery with limited chest over read only RADIATION DOSAGE (If Supplied By Facility): CTDIvol = ( 29.76 ) mGy, DLP = ( 1509.56 ) mGycm TECHNIQUE: Transaxial imaging was performed pre and post intravenous administration of IV 55mL Isovue-370. Cardiac examination. Individualized dose optimization techniques were used for this CT. COMPARISON: Comparison is made with prior CT of the chest dated January 28, 2024. FINDINGS: CHEST The lungs are normal. There is no demonstrated pleural abnormality. Sternal cerclage wires and vascular clips are present from a prior sternotomy and coronary artery bypass graft procedure (CABG). There are calcifications of the coronary arteries. There are small lymph nodes within the mediastinum, which are normal in size and morphology most compatible with reactive lymph hyperplasia. Normal hilar regions. Normal unenhanced pulmonary arteries. There is atherosclerotic calcification of the aortic arch. There are degenerative changes of the thoracic spine. Fatty infiltration of the liver. CT/Limited Chest CT Cardiac Only IMPRESSION: Coronary calcification. Electronically Signed: Ravi Osborn MD at 14:29 EDT ,
[2024-06-23 12:52] VITALS: BP 159/55; PULSE 49; RESP 14; O2SAT 98; BMI 26.5
[2024-06-23 13:11] VITALS: PULSE 50
[2024-06-23] MEDS: Nitroglycerin SL (ED/IMG/CATH) 0.4 MG TABLET SL (13:11)
[2024-06-23 13:16] VITALS: BP 137/60; PULSE 52; RESP 14; O2SAT 97
[2024-06-23 13:21] LABS: CREATININE FINGERSTICK < 1.0 mg/dL (0.70-1.30); EGFR FINGERSTICK > 60.0000 mL/min (>60)
--- NOTE | 2024-06-30 11:12 | CCTA.WCONT ---
CCTA w/Cont Coronary Arteries Date of Study:: 06/23/24 Coronary Calcium Scoring: High-resolution Computed Tomographic imaging of the chest was performed on [06/23/2024], with particular attention paid to the coronary arteries. Intravenous contrast agent was administered per protocol and images reconstructed and displayed. LEFT MAIN CORONARY ARTERY: Severely diseased distally [] LEFT ANTERIOR DESCENDING CORONARY ARTERY: This vessel was noted to be severely calcified in the proximal and mid segment and subtotally occluded coronary calcium score 1284 this vessel arises from the left main coronary artery. The vessel was noted to be totally occluded in the midsegment. [] LEFT CIRCUMFLEX CORONARY ARTERY: Calcified in the proximal and mid segment. Coronary calcium score is 1006 [] RIGHT CORONARY ARTERY: This vessel is also noted to be calcified in the proximal right coronary artery with a short stent noted in the midsegment and a longer stent noted in the distal segment. This vessel is noted to be patent. Calcium score is 1837 though this may be falsely elevated due to the presence of the stent. There is a left internal mammary artery to the left anterior descending artery which is noted to be patent and is seen in its entirety. There is a saphenous vein graft to the left circumflex artery which is noted to be patent with no significant disease noted. The distal vessels are also noted to be patent. No other bypass grafts are present. [] THORACIC AORTA: Isolated calcification noted [] PULMONARY ARTERY: Normal [] LEFT ATRIUM/APPENDAGE: [] MITRAL VALVE: [] AORTIC VALVE: Trileaflet [] LEFT VENTRICLE: [] CORONARY CALCIUM SCORE: Coronary calcium score of 4887 []
== END 2024-06-23 23:59 | disposition home or self-care (01) ==
PROVIDERS: PCP Internal Medicine; Referring Provider Nurse Practitioner Gerontology; Visit Provider Nurse Practitioner Gerontology
DX: I25.10 Atherosclerotic heart disease of native coronary artery without angina pectoris (principal); Z95.1 Presence of aortocoronary bypass graft
CPT/HCPCS: 75571; 75574; 76380; Q9967

== ENCOUNTER → 2024-09-28 | Outpatient (CLI) | payer MEDICARE, OTHER, SELFPAY ==
[2024-05-28 11:15] VITALS: BMI 27.7
[2024-09-28 14:35] LABS: Hematocrit 33.4 % (40-54); Mean Corp Hgb Conc 35.9 g/dL (32-36); Mean Corpuscular Hgb 33.9 pg (27.0-32.0); Mean Corpuscular Volume 94.4 fL (80-94); Mean Platelet Vol. 9.4 fl (6.2-12.0); Platelet Count 216 K/mm3 (150-450); RBC Distribution Width CV 11.5 % (11.6-14.6); RBC Distribution Width SD 39.6 fl (35.1-43.9); Red Blood Count 3.54 M/mm3 (4.6-6.2); White Blood Count 6.6 K/mm3 (4.4-11.0)
[2024-09-28 14:45] LABS: Prothrombin Time (Protime)PT. 13.2 SECONDS (11.7-14.9)
[2024-09-28 15:07] LABS: Anion Gap 7 (5-15); BUN 15 mg/dL (7-18); BUN/Creat Ratio 21.4 RATIO (10-20); Calcium,Total 9.3 mg/dL (8.5-10.1); Chloride 86 mmol/L (98-107); EST Glomerular Filtration Rate 118 mL/min (>60); Est Glom Filt Rate - Afr Amer 142 mL/min (>60); Glucose 109 mg/dL (74-106); Potassium 4.8 mmol/L (3.5-5.1); Sodium Level 120 mmol/L (136-145)
== END | disposition home or self-care (01) ==
LOC: LAB 13:30
PROVIDERS: PCP Internal Medicine; Referring Provider Internal Medicine Cardiovascular Disease; Visit Provider Internal Medicine Cardiovascular Disease
DX: I25.10 Atherosclerotic heart disease of native coronary artery without angina pectoris (principal); I10 Essential (primary) hypertension; Z95.1 Presence of aortocoronary bypass graft; R00.1 Bradycardia, unspecified; Z95.5 Presence of coronary angioplasty implant and graft; I34.0 Nonrheumatic mitral (valve) insufficiency
CPT/HCPCS: 36415; 80048; 85027; 85610

== ENCOUNTER → 2024-10-12 | Outpatient (CLI) | payer MEDICARE, OTHER, SELFPAY ==
[2024-05-28 11:15] VITALS: BMI 27.7
[2024-10-12 15:07] LABS: ALB/GLOB Ratio 1.1 RATIO (0.9-2.4); AST(SGOT) 23 U/L (15-37); Alanine Aminotransfer ALT/SGPT 31 U/L (16-61); Albumin, Serum 3.6 g/dL (3.2-5.0); Alkaline Phosphatase 76 U/L (45-117); Anion Gap 4 (5-15); BUN 10 mg/dL (7-18); Calcium,Total 9.6 mg/dL (8.5-10.1); Chloride 95 mmol/L (98-107); Creatinine, Serum 0.72 mg/dL (0.70-1.30); EST Glomerular Filtration Rate 115 mL/min (>60); Est Glom Filt Rate - Afr Amer 139 mL/min (>60); Globulin 3.3 g/dL (2.2-4.2); Glucose 144 mg/dL (74-106); Potassium 4.7 mmol/L (3.5-5.1); Protein, Total 6.9 g/dL (6.4-8.2); Sodium Level 128 mmol/L (136-145)
== END | disposition home or self-care (01) ==
LOC: LAB 14:18
PROVIDERS: PCP Internal Medicine; Referring Provider Nurse Practitioner Family; Visit Provider Nurse Practitioner Family
DX: E87.1 Hypo-osmolality and hyponatremia (principal)
CPT/HCPCS: 36415; 80053

== ENCOUNTER → 2024-10-14 | Outpatient (CLI) | payer MEDICARE, OTHER, SELFPAY ==
[2024-05-28 11:15] VITALS: BMI 27.7
--- NOTE | 2024-10-14 08:46 | RDU_ITS ---
Reason For Study: HTN Right Renal Artery Left Renal Artery Right renal artery ostium Left renal artery ostium 80.6/12.7 156.5/18.0 RSV/EDV. PSV/EDV. Right renal artery proximal Left renal artery proximal PSV/EDV 75.3/12.4 PSV/EDV. 149.0/39.3 . Right renal artery mid 81.3/11.7 Left renal artery mid 164.6/15.7 PSV/EDV. PSV/EDV . Right renal artery distal Left renal artery distal 191.0/24.0 124.4/11.8 PSV/EDV. PSV/EDV. Right RAR 1.75. Left RAR 2.69. Right Renal Parenchyma Left Renal Parenchyma Upper Pole Medula 51.4/5.4 PSV/EDV. Left upper pole medulla 36.1/7.6 Right upper pole medulla EDR 0.1 . PSV/EDV . Right upper pole medulla R.I. Left upper pole medulla EDR 0.2 . 0.90 . Left upper pole medulla R.I. 0.79 . Upper [place] Cortx 32.8/7.6 PSV/EDV. UP Cortex 36.1/8.9 PSV/EDV. Right upper pole cortex EDR 0.2 . Left upper pole cortex EDR 0.2 . Right upper pole cortex R.I. 0.77 . Left upper pole cortex R.I. 0.75 . Right lower Pole medulla 46.0/4.3 Left lower Pole medulla 38.7/8.9 PSV/EDV . PSV/EDV . Right lower pole medulla EDR 0.1 . Left lower pole medulla EDR 0.2 . Right lower pole medulla R.I. Left lower pole medulla R.I. 0.77 . 0.91 . Lower Pole Cortx 27.1/11.5 PSV/EDV. Lower Pole Cortex 39.4/5.4 PSV/EDV. Left lower pole cortex EDR 0.4 . Right lower pole cortex EDR 0.1 . Left lower pole cortex R.I. 0.57 . Right lower pole cortex R.I. 0.86 . Left Renal Hilar Right Renal Hilar LT Hilar avg 108.5/13.6 PSV/EDV . Right Hilar avg 129.3/10.8 PSV/EDV. Left hilar acceleration time 0.10 Right hilar acceleration time 0.04 m/sec. m/sec. Left Renal Dimensions Right Renal Dimensions Left kidney size 11.50 cm . Right kidney size 10.18 cm . Left cortical dimension 1.37 cm . Right cortical dimension 2.01 cm . Aorta Proximal abdominal aorta 1.8 cm . Distal abdominal aorta 1.5 cm . Proximal abdominal aorta peak systolic velocity is 107.6 cm/sec . Distal abdominal aorta peak systolic velocity is 71.0 cm/sec . VL/Renal Artery Duplex Ultrasound Interpretation Summary Right renal artery patent with normal velocities and no evidence of stenosis. Left renal artery patent with < 60% stenosis. Right renal vein patent. Left renal vein patent. Right kidney normal in size. Left kidney normal in size. Ordering Physician: Rubio Simeon Referring Physician: Sher Jules M.D. Performed By: John Hinson RVT and Student
--- NOTE | 2024-10-14 08:46 | CDU_ITS ---
Reason For Study: Bruit Rt. Velocities/BP Lt. Velocities/BP Prox CCA 78.1/0.0 cm/sec. Prox CCA 104.5/16.7 cm/sec. Mid CCA 83.0/13.0 cm/sec. Mid CCA 106.7/12.3 cm/sec. Dist CCA 69.5/11.8 cm/sec. Dist CCA 76.0/13.9 cm/sec. Prox ICA 97.9/15.7 cm/sec. Prox ICA 175.0/25.9 cm/sec. Mid ICA 83.3/13.9 cm/sec. Mid ICA 123.5/13.9 cm/sec. Dist ICA 86.9/17.5 cm/sec. Dist ICA 60.1/10.9 cm/sec. Rt. ICA/CCA = 1.2. Lt. ICA/CCA = 1.6. Prox ECA 154.5/6.7 cm/sec. Prox ECA 346.5/14.4 cm/sec. Rt. Vert. 68.3/9.3 cm/sec. Lt. Vert. 30.2/3.1 cm/sec. Right Extracranial There is heterogeneous, irregular atherosclerotic plaque noted in the right common carotid artery. There is heterogeneous, irregular atherosclerotic plaque noted in the right internal carotid artery. There is heterogeneous, irregular atherosclerotic plaque noted in the right external carotid artery. Antegrade flow is noted in the right vertebral artery. Left Extracranial There is heterogeneous, irregular atherosclerotic plaque noted in the left common carotid artery. There is heterogeneous, irregular atherosclerotic plaque noted in the left internal carotid artery. There is heterogeneous, irregular atherosclerotic plaque noted in the left external carotid artery. Antegrade flow is noted in the left vertebral artery. Procedure Carotid Duplex [id number]. This is a Carotid Duplex examination using B-mode, color flow and specral Doppler. Exam performed in department. VL/Carotid Duplex Ultrasound Interpretation Summary Mild (<50%) stenosis right extracranial internal carotid. Moderate (50-69%) stenosis left extracranial internal carotid. Patent and antegrade vertebrals bilaterally. Ordering Physician: Rubio Simeon Referring Physician: Sher Jules M.D. Performed By: John Hinson RVT and Student
== END | disposition home or self-care (01) ==
PROVIDERS: PCP Internal Medicine; Referring Provider Internal Medicine Cardiovascular Disease; Visit Provider Internal Medicine Cardiovascular Disease
DX: R09.89 Other specified symptoms and signs involving the circulatory and respiratory systems (principal); I10 Essential (primary) hypertension
CPT/HCPCS: 93880; 93975

== ENCOUNTER → 2024-10-20 | Outpatient (CLI) | payer MEDICARE, OTHER, SELFPAY ==
[2024-05-28 11:15] VITALS: BMI 27.7
--- NOTE | 2024-10-20 08:06 | PCM.CR.ITP ---
Diagnosis General Information Admitting Diagnosis: PTCA Personal Learning Style:: Audio/Visual, Demonstration, Group, Individual Preference and Written Barriers to Learning: No Barriers Stage of change r/t lifestyle modifications:: Contemplation Gave educational material for:: Treating Heart Disease, How The Heart Works, What it means to have Heart Disease, How Coronary Artery Disease is Diagnosed, Heart Procedures, What Heart Medications Do, Risk Factors & Modifications, Living an Active Life, Nutrition, Emotions & Heart Disease, Stress Management & Relaxation and Sleep Disorders & Heart Disease Education/Goals Cardiac Rehabilitation Goals Personal Goals: Initial Assessment: Participate in home exercise program and Other goal: Scale for measuring improvement of personal goals Diagnosis & Disease Process Outcomes/Goals: Pt IDs own risk factors & lifestyle modifications by Session 10, Verbalizes symptoms of angina & response by session 3., Pt independently manages and Other Additional Outcomes/Goals: Plan/Interventions: Assist Pt to ID & engage in lifestyle modification to reduce CVD risk, Instruct on individual risk factors, Review symptoms of angina & emergency actions, Review secondary diagnosis & identify educational needs. and Other see comment 30 day Reassessments:: Not Met 30 day Reassessments:: Not Met 30 day Reassessments:: Not Met 30 day Reassessments:: Not Met Final Reassessments:: Not Met Safety Referral to Physical Therapy: No Referral to [facility] Case Management: No Fall Risk Assessed:: Yes Assistive Devices:: None Exercise - Initial Assessment Visit Date of Eval: 10/20/24 (initial eval ) Mets: Pre-: >3 METS for 30 minutes by discharge, >5 METS for 30 minutes by discharge, >7 METS for 30 minutes by discharge and Unable to meet goal due to: (see comment below) Physician Prescribed Exercise Modalities: Treadmill, Rower, Schwinn Airdyne AD-7, SciFit Stepper, SciFit Pro-II Ergometer and SciFit Lateral Solid Waste Engineer Frequency: 3x/week for 12 weeks [36 sessions] Intensity: 60-80% of age predicted maximum heart rate reserve Duration: 30 - 45 minutes Current METSs:: 3 Target Heart Rate:: 89-111 Resting Blood Pressure: 162/69 EKG Type: SB 1st degree A-V block Outcomes & Goals Goals:: Verbalizes understanding of THR, RPE & goal METS by session 6, Documents in home exercise log/reports 30 min aerobic 5 day/wk by DC, Demonstrates accurate pulse taking by DC and Other additional outcome/goals: see below Intervention & Plan Exercise Program Goals: Instruct on personal THR & RPE, Instruct on MET level & personal MET goal, Show patient to take own pulse /validate performance until accurate, Instruct on home exercise and Other additional plan/int Physical Activity Home Exercise Physical Activity - Home Exercise: Safe Exercise, Warm-up, Self-monitoring, Cool-Down, Home Exercise > 30 min Daily and Sitting Time <3 hours/daily Outcomes & Goals Outcomes/Goals: Demonstrates correct Warm-up/exercise Cool-Down (S3) if = 2.5 METs, Verbalizes symptoms of exercise intolerance by Session 3 (S3), Demonstrate safe equipment use (S3) & follows exercise prescrition (6) and Other: See below Intervention & Plan Plan/Intervention: Instruct warm-up & cool-down if exercising at > 2 METs, Instruct on symptoms of exercise intolerance & actions to take, Instruct & monitor on saf, Assess intial functional capacity & safety risk and Other See below Nutrition - Initial Assessment Program Goals Nutrition Program Goals Patient has diagnosis of Hyperlipidemia (ICD E78)?: Yes Visit Date of Eval: 10/20/24 (initial eval ) Cholesterol/Lipids (Other Core Measures) Determine presence & major risk factors that modify LDL goal: Hypertension or hypertensive medication, Low HDL cholesterol <40 mg/dL*, Family history of premature CHD in Male < 55 years: female <65 yearsFa and Age men > 45 years; women >/= 55 years Outcomes/Goals: Pt IDs own risk factors & lifestyle modifications by Session 10, Verbalizes symptoms of angina & response by session 3., Pt independently manages and Other Additional Outcomes/Goals: Intervention/Plan: Advocate for lipid panel cholesterol medication if applicable, Instruct on personal lipid levels & lipid goals/NCEP guidelines, Instruct on cholesterol and Other additional plan/int Diabetes (Other Core Measures) Diabetes Type: Diagnosis Type II ICD-10 E11 Insulin dependent injection/pump?: No Non-Insulin Dependent?: Yes Do you monitor your blood sugar at home?: Yes Referral to Diabetic Clinic:: No Outcomes/Goals:: Able to state symptoms of, Able to state, Able to state and Other additional Intervention/Plan:: Instruct on, Refer to, Instruct on and Other Weight Mgt (Other Care) Height: 5 ft 10 in Weight:: 192 lb BMI: 27.5 Diagnosis Overweight/Obesity BMI> 30% ICD-10 E66: No Diagnosis High BMI/Morbid Obesity BMI> 35% ICD-10 Z68: No Outcomes/Goals: Pt sets, maintains & shows weight loss goal & trend during rehab and Other additional outcomes/goals Intervention/Plan: Instruct on ideal BMI & set weight loss goal w/patient, Assist pt to ID & incorporate diet changes for weight loss by S9, Refer to Structured Weight Loss program as appropriate, Encourage goal of using 250-300dcal per session for weight loss and Other additional plan/interventions Healthy Eating Habits Will attend diet classes:: Yes Outcomes/Goals:: Consume diet rich in vegs,fruits,whole grain/high fiber,fish,lean meat, Limit sat/trans fats,cholesterol & added salts & sugars and Other additional outcome/goals: Intervention/Plan:: Assess current eating habits and Other Additional plan/interventions Education Gave educational materials for:: Signs & symptoms of hypoglycemia, Signs & symptoms of hyperglycemia, Relate diabetes to coronary artery disease and Healthy eating Core - Initial Assessment Visit Date of Eval: 10/20/24 (initial eval ) Medication Compliance Preventative Medication(s):: Aspirin, HEENA inhibitor, Clopidogrel/P2Y12 inhibit and Statin/lipid H/O mental health issues: depression, anxiety, or addiction?: No Doesn?t believe in the benefits of treatment?: No Believes medications are unnecessary or harmful?: No Has a concern about medication side effects?: No Expresses concern over the cost of medications?: No Outcomes/Goals: Verbalizes medications,desired effect & common side effects @ DC, Pt self-reports following medication regimen, Keeps card in wallet w/medications listed by DC and Other additional outcome/goals: Interventions/plans: Instruct on medication effects & side effects, Review medication list w/patient every two weeks, Instruct importance of taking meds as ordered & assist problem solving and Other additional Tobacco Use Tobacco Use: Non-smoker Hypertension Hypertension Diagnosis:: Hypertension ICD-10 I10 Resting Blood Pressure:: 162/69 [employer] [place] [employer] Hypertension Guidelines Outcomes/Goals: Able to verbalize/achieve optimal blood pressure <130/80, Incorporates diet changes & exercise for blood pressure control by DC and Other additional outcomes/goals Interventions/plan: Instruct on optimal blood pressure, hypertension & medications, Instruct on effects of sodium, alcohol, stress, exercise &hypertension and Other additional plan/interventions Tobacco Cessation Referral Smoking Cessation Referral:: No Individual Education/Counseling:: No Education Schedule Given:: Yes Psychosocial - Initial Assess VIsit Date of Eval: 10/20/24 (initial eval ) History of previous Mental disease:: No Target Goals Target Goals Psychosocial Test Tool Used:: Hanna Kent QOL Cardiac and PHQ-9 Questionnaire phq-9 Severity Referral to Behavioral Health PS - Interventions: Yes: Attend Stress Management Classes Outcomes/Goals: See list Psychosocial Outcomes/Goals:: ID's personal stressors & 2 strategies to manage stress by discharge and Other Additional outcome/goals: Intervention/Plan: See List Interventions/Plan:: Assess stressors,coping strategies & signs of derpression on admission, Instruct/assist pt to develop coping & personal stress Mgt strategies, Refer to Behavioral Health if appropriate, Refer to Physician if appropriate, Instruct patient to recognize signs & symptoms of depression, Instruct patient to recog and Other additional plan/intervention OBI-Q SV Test Statements CAD is a disease of the arteries in the heart: False Examples of risk factors for heart disease: True Angina is chest pain or discomfort: I Don't Know The benefits of resistance training include: True Eating more meat and dairy products: False Anti-platelet medications such as aspirin are important: True The only effective way to manage stress: False An exercise warm-up slowly increases heart rate: True Prepared, processed foods usually have high sodium: True Depression is common after a heart attack: True The statin medications lower cholesterol: True To control blood pressure, lower the amount of sodium: I Don't Know If someone gets chest discomfort during walking: False Transfats are partially hydrogenated vegetable oils: True Sleep apnea that is not treated increases the risk: False To control cholesterol, one should become a vegetarian: False Someone knows if he/she is exercising at the right level: True Diabetes cannot be prevented with exercise & health eating: False Stress is a large risk for heart attack: True A diet that can help lower blood pressure is rich in: True Total Score Total Correct Responses: 18 Self-Efficacy 6-Item Scale Initial Assessment: We would like to know how confident you are in doing certain activities. Please select your confidence level for: Fatigue Select Number: 10 Physical Discomfort or Pain Select Number: 10 Emotional Distress Select Number: 10 Other Symptoms or Health Problems Select Number: 8 Different Tasks and Activities Select Number: 8 Medication Select Number: 10 Total Score:: 9 Nutrition Survey Nutrition Survey Instructions Scoring Instructions Nutrition Survey Initial: Have you lost >10 lbs over the past 2 months without trying?: No Are you following a special diet at home for diabetes, low fat, or low salt?: Yes Are you interested in meeting with a dietitian for help understanding your diet?: No Do you eat less than 3 meals a day?: Yes Do you eat fatty meats (hernandez, sausage, ribs, etc), fried foods, desserts, large amounts of salad dressings, margarine, butter, or cheese most days?: No Do you have food allergies? [Enter types in comment field]: No Do you eat in restaurants more than 3 times a week?: Yes Do you season food with salt, seasoning salt, or garlic salt?: No Do you used canned, boxed, frozen meals, or soups, seasoning packets?: No Total Score:: 3 Exercise - 30-day Assessment Physician Prescribed Exercise Modalities: Treadmill, Rower, Schwinn Airdyne AD-7, SciFit Stepper, SciFit Pro-II Ergometer and SciFit Lateral Solid Waste Engineer Exercise - 60-day Assessment Physician Prescribed Exercise Modalities: Treadmill, Rower, Schwinn Airdyne AD-7, SciFit Stepper, SciFit Pro-II Ergometer and SciFit Lateral [place] Exercise - 90-day Assessment Physician Prescribed Exercise Modalities: Treadmill, Rower, Schwinn Airdyne AD-7, SciFit Stepper, SciFit Pro-II Ergometer and SciFit Lateral Solid Waste Engineer Exercise - Final/Discharge Physician Prescribed Exercise Modalities: Treadmill, Rower, Schwinn Airdyne AD-7, SciFit Stepper, SciFit Pro-II Ergometer and SciFit Lateral Solid Waste Engineer Frequency: 3x/week for 12 weeks [36 sessions] Intensity: 60-80% of age predicted maximum heart rate reserve Current METSs:: 3 Target Heart Rate:: 89-111 Nutrition - 30-Day Assessment Weight Mgt (Other Care) Height: 5 ft 10 in Weight:: 192 lb BMI: 27.5 Nutrition - 60-Day Assessment Weight Mgt (Other Care) Height: 5 ft 10 in Weight:: 192 lb BMI: 27.5 Core - Final Assessment Hypertension Resting Blood Pressure:: 162/69 [employer] Hypertension Guidelines Core - 60-Day Assessment Hypertension Resting Blood Pressure:: 162/69 [employer] [place] [employer] Hypertension Guidelines Psychosocial - 30-Day Assess Target Goals Target Goals Referral to Behavioral Health PS - Interventions: Yes: Attend Stress Management Classes Psychosocial - 60-Day Assess Target Goals Target Goals Referral to Behavioral Health PS - Interventions: Yes: Attend Stress Management Classes Psychosocial - 90-Day Assess Target Goals Target Goals Referral to Behavioral Health PS - Interventions: Yes: Attend Stress Management Classes Psychosocial - Final Assessmen Target Goals Target Goals Referral to Behavioral Health PS - Interventions: Yes: Attend Stress Management Classes Nutrition - 90-Day Assessment Weight Mgt (Other Care) Height: 5 ft 10 in Weight:: 192 lb BMI: 27.5 Nutrition - Final Assessment Program Goals Patient has diagnosis of Hyperlipidemia (ICD E78)?: Yes Weight Mgt (Other Care) Height: 5 ft 10 in Weight:: 192 lb BMI: 27.5
[2024-10-20 08:12] VITALS: BP 162/69
[2024-10-20 08:13] VITALS: BP 162/69
--- NOTE | 2024-10-20 08:14 | CR.HP_ITS ---
CR - History & Physical General Arrival date:: 10/20/24 Arrival time:: 08:14 Date of Referral:: 10/12/24 Date of CR Evaluation:: 10/20/24 Referring Physician: Dr. Simeon Primary Diagnosis: PTCA History of Present Cardiac Event Onset Date PTCA or coronary stenting:: Yes (09/30/24 onset) Medications Ambulatory Orders ?Medication ?Instructions ?Recorded multivitamin with folic acid 400 1 tab PO DAILY vitamin 04/18/16 mcg tablet (Thera) amlodipine 10 mg tablet 10 mg PO DAILY 01/28/24 clonidine HCl 0.2 mg tablet 0.2 mg PO BID 01/28/24 gabapentin 300 mg capsule 300 mg PO DAILY 01/28/24 lisinopril 40 mg tablet 40 mg PO BID 01/28/24 aspirin 81 mg tablet,delayed 81 mg PO BREAKFAST #30 tabs 01/30/24 release clopidogrel 75 mg tablet 75 mg PO QDAY 05/28/24 metformin 500 mg tablet 1,000 mg PO BID diabetes 05/28/24 nitroglycerin 0.3 mg sublingual 0.3 mg sublingual Q5M PRN angina 05/28/24 tablet atorvastatin 40 mg tablet 40 mg PO QPM #90 tabs 09/14/24 metoprolol tartrate 25 mg tablet 12.5 mg PO BID 09/14/24 Allergies Allergies No Known Allergies Allergy (Verified 10/12/24 13:36) Sleep Disorder Evaluation Hx of Sleep Apnea: No Do you snore loudly (louder than talking or can be heard through closed doors)?: No Do you often feel tired/ fatigued/ sleepy during daytime?: No Has anyone observed you stop breathing during sleep?: No History of Hypertension (for STOP score): Yes STOP Results: Negative Advanced Directives Advanced Directives Power of Industrial Health Engineer: No Living Will: No Advance Directives Information Provided: No Advance Directives on File: No DNR Order?:: No Past Medical History Covid-19 Screening Physicial Symptoms Other Clinical Concerns Exposure Risk Pertinent Comorbidities 65 years or older:: Yes Has a serious heart condition:: Yes Diabetic:: Yes Past Medical Illness Medical History CAD (coronary artery disease) Diabetes Dyslipidemia Hypertension Type 2 diabetes mellitus without complications Peripheral vascular disease, unspecified Essential (primary) hypertension Atherosclerotic heart disease of [place] coronary artery without angina pectoris Diabetes mellitus, type 2 Former tobacco use Obesity Chest pain NSTEMI (non-ST elevated myocardial infarction) Branch retinal artery occlusion Hyperlipemia Past Surgical History Surgical History H/O coronary angioplasty Stented coronary artery (01/29/24) History of coronary artery bypass graft x 3 H/O angioplasty Failed CABG (coronary artery bypass graft) Family History Summary Family History Mother Cancer Father CVA (cerebral vascular accident) Social History Smoking History Smoking Status: Former smoker Years Smokin (stopped in ) Occupation Occupation (List type of work in comments):: Retired Hobbies, Recreation, Social Activities Hobbies: Woodworking Recreational Activities: I am able to engage in all my recreational activities Social Environment Status Marital Status: Current Living Arrangements Living Environment:: Spouse Children How many children do you have?: 2 Do any of your children live nearby?: Yes Safety Do you feel safe in your surroundings?: Yes Assistance Do you need any assistance at home?: no Review of Systems Review of Systems Hints Review of Present Symptoms: Reports PVD, Dizziness/Lightheadedness, Appetite - Normal, Appetite - Special Diet and Sleep - Normal; Denies Shortness of Breath at Rest, Shortness of Breath with Exertion, Operative Discomfort, Angina, Wound Healing, Fatigue, Heart Arrhythmia/Irregularities or Sexual Changes Pain Is Patient Pain Free?: No Risk Factor Assessment Chief Complaint Chief Complaint: PTCA Vital Signs Pulse Ox: 97 Blood Pressure: 162/69 Pulse Pulse Rate: 52 Hypertension Blood Pressure Sitting - Right Arm: 162/69 Diabetes Diabetic History: Type II Nutrition Referral for Diabetes: No Obesity Height: 5 ft 10 in Weight:: 192 lb Weight in Pounds: 192.0 lbs Body Mass Index (BMI): 27.5 Physical Inactivity Physical Inactivity: Recreational activity Risk Stratification Risk Guidelines: Lowest Risk: Risk Factor for Smoking, Moderate Risk: Risk Factor for Obesity, Risk Factor for Sedentary Lifestyle and Risk Factor for Depression and Highest Risk: Risk Factor for Dyslipidemia, Risk Factor for Diabetes and Risk Factor for Hypertension For Smoking Smoking Risk Guidelines For Dyslipidemia Dyslipidemia Risk Guidelines For Diabetes Mellitus Diabetes Risk Guidelines For Obesity/Overweight Obesity/Overweight Risk Guidelines For Hypertension Hypertension Risk Guidelines For Sedentary Lifestyle Sedentary Lifestyle Risk Guidelines For Depression Depression Risk Guidelines Family History Family History Mother Cancer Father CVA (cerebral vascular accident) Motivation Motivation to Participate On a scale of 1 to 10, how prepared are you to commit to attending program?: 8 What do you see as barriers to successfully being able to complete the program?: nothing What do you see as the benefits of succesfully completing the program? In other words, what do you hope to get out of participating in the program?: not to worry when being active Are there issues you are dealing with that will interfere with completing the program?: no Do you have a spouse or signficant other, family or friends who will help support you to complete the program?: yes
[2024-10-20 08:19] VITALS: BP 162/69; PULSE 52; O2SAT 97
[2024-10-20 08:53] VITALS: BMI 27.5
[2024-10-20 09:02] VITALS: BMI 27.5
== END | disposition home or self-care (01) ==
LOC: CR 08:03
PROVIDERS: PCP Internal Medicine; Referring Provider Internal Medicine Cardiovascular Disease; Visit Provider Internal Medicine Cardiovascular Disease
DX: I25.10 Atherosclerotic heart disease of native coronary artery without angina pectoris (principal); Z95.1 Presence of aortocoronary bypass graft; Z98.61 Coronary angioplasty status

== ENCOUNTER 2024-10-26 10:15 | Outpatient (RCR) | payer MEDICARE, OTHER, SELFPAY ==
[2024-10-20 08:53] VITALS: BMI 27.5
== END 2024-10-27 23:59 ==
LOC: CR 10:15
PROVIDERS: PCP Internal Medicine; Referring Provider Internal Medicine Cardiovascular Disease; Visit Provider Internal Medicine Cardiovascular Disease
DX: I25.10 Atherosclerotic heart disease of native coronary artery without angina pectoris (principal); Z95.5 Presence of coronary angioplasty implant and graft; Z95.1 Presence of aortocoronary bypass graft; Z98.61 Coronary angioplasty status
CPT/HCPCS: 93798

== ENCOUNTER 2024-11-20 10:15 | Outpatient (RCR) | payer MEDICARE, OTHER, SELFPAY ==
[2024-10-20 08:53] VITALS: BMI 27.5
--- NOTE | 2024-11-20 08:48 | PCM.CR.ITP ---
Exercise - Initial Assessment Visit Session #:: 11 Physician Prescribed Exercise Modalities: Treadmill, Schwinn Airdyne AD-7 and SciFit Stepper Nutrition - Initial Assessment Weight Mgt (Other Care) Height: 5 ft 10 in Weight:: 195 lb BMI: 27.9 Psychosocial - Initial Assess Target Goals Target Goals Referral to Behavioral Health PS - Interventions: Yes: Attend Stress Management Classes Self-Efficacy 6-Item Scale 30-Day Re-eval Assessment: We would like to know how confident you are in doing certain activities. Please select your confidence level for: Fatigue Select Number: 10 Physical Discomfort or Pain Select Number: 10 Emotional Distress Select Number: 10 Other Symptoms or Health Problems Select Number: 8 Different Tasks and Activities Select Number: 8 Medication Select Number: 10 Total Score:: 9 Nutrition Survey Nutrition Survey Instructions Scoring Instructions Exercise - 30-day Assessment Visit Date of Eval: 11/20/24 Session #:: 11 Physician Prescribed Exercise Modalities: Treadmill, Schwinn Airdyne AD-7 and SciFit Stepper Frequency: 3x/week for 12 weeks [36 sessions] Intensity: 60-80% of age predicted maximum heart rate reserve Duration: 30 - 45 minutes Current METSs:: 5.2 Target Heart Rate:: 89-111 Current RPE:: 12-13 Maximum Excercise HR:: 92 Resting Blood Pressure: 128/52 Maximum Exercise Blood Pressure: 148/58 EKG Type: SB to NSR 1DAVB with freq PACs Outcomes & Goals Goals:: Verbalizes understanding of THR, RPE & goal METS by session 6, Documents in home exercise log/reports 30 min aerobic 5 day/wk by DC, Demonstrates accurate pulse taking by DC and Other additional outcome/goals: see below Intervention & Plan Exercise Program Goals: Instruct on personal THR & RPE, Instruct on MET level & personal MET goal, Show patient to take own pulse /validate performance until accurate, Instruct on home exercise and Other additional plan/int Physical Activity Home Exercise Physical Activity - Home Exercise: Safe Exercise, Warm-up, Self-monitoring, Cool-Down, Home Exercise > 30 min Daily and Sitting Time <3 hours/daily Outcomes & Goals Outcomes/Goals: Demonstrates correct Warm-up/exercise Cool-Down (S3) if = 2.5 METs, Verbalizes symptoms of exercise intolerance by Session 3 (S3), Demonstrate safe equipment use (S3) & follows exercise prescrition (6) and Other: See below Intervention & Plan Plan/Intervention: Instruct warm-up & cool-down if exercising at > 2 METs, Instruct on symptoms of exercise intolerance & actions to take, Instruct & monitor on saf, Assess intial functional capacity & safety risk and Other See below 30-day Reassessments 30 day Reassessments:: Progressing Reassessment Notes & Comments:: RPE explained to pt. Pt demonstrates understanding Exercise - 60-day Assessment Physician Prescribed Exercise Modalities: Treadmill, Schwinn Airdyne AD-7 and SciFit Stepper Exercise - 90-day Assessment Physician Prescribed Exercise Modalities: Treadmill, Schwinn Airdyne AD-7 and SciFit Stepper Exercise - Final/Discharge Physician Prescribed Exercise Modalities: Treadmill, Schwinn Airdyne AD-7 and SciFit Stepper Nutrition - 30-Day Assessment Program Goals Nutrition Program Goals Patient has diagnosis of Hyperlipidemia (ICD E78)?: Yes Visit Date of Eval: 11/20/24 Session #:: 11 Cholesterol/Lipids (Other Core Measures) Determine presence & major risk factors that modify LDL goal: Hypertension or hypertensive medication, Low HDL cholesterol <40 mg/dL*, Family history of premature CHD in Male < 55 years: female <65 yearsFa and Age men > 45 years; women >/= 55 years Outcomes/Goals: Pt IDs own risk factors & lifestyle modifications by Session 10, Verbalizes symptoms of angina & response by session 3., Pt independently manages and Other Additional Outcomes/Goals: Intervention/Plan: Advocate for lipid panel cholesterol medication if applicable, Instruct on personal lipid levels & lipid goals/NCEP guidelines, Instruct on cholesterol and Other additional plan/int Diabetes (Other Core Measures) Diabetes Type: Diagnosis Type II ICD-10 E11 Insulin dependent injection/pump?: No Non-Insulin Dependent?: Yes Do you monitor your blood sugar at home?: Yes Referral to Diabetic Clinic:: No Weight Mgt (Other Care) Height: 5 ft 10 in Weight:: 195 lb BMI: 27.9 Diagnosis Overweight/Obesity BMI> 30% ICD-10 E66: No Diagnosis High BMI/Morbid Obesity BMI> 35% ICD-10 Z68: No Outcomes/Goals: Pt sets, maintains & shows weight loss goal & trend during rehab and Other additional outcomes/goals Intervention/Plan: Instruct on ideal BMI & set weight loss goal w/patient, Assist pt to ID & incorporate diet changes for weight loss by S9, Refer to Structured Weight Loss program as appropriate, Encourage goal of using 250-300dcal per session for weight loss and Other additional plan/interventions Healthy Eating Habits Will attend diet classes:: Yes Outcomes/Goals:: Consume diet rich in vegs,fruits,whole grain/high fiber,fish,lean meat, Limit sat/trans fats,cholesterol & added salts & sugars and Other additional outcome/goals: Intervention/Plan:: Assess current eating habits and Other Additional plan/interventions 30-day Reassessments:: Progressing Reassessment Notes & Comments:: Pt is scheduled to attend nutrition class. Pt will be encouraged to eat a low sodium heart healthy diet. Education Gave educational materials for:: Signs & symptoms of hypoglycemia, Signs & symptoms of hyperglycemia, Relate diabetes to coronary artery disease and Healthy eating Nutrition - 60-Day Assessment Weight Mgt (Other Care) Height: 5 ft 10 in Weight:: 195 lb BMI: 27.9 Core - 30-Day Assessment Visit Date of Eval: 11/20/24 Session #:: 11 Medication Compliance Preventative Medication(s):: Aspirin, HEENA inhibitor, Clopidogrel/P2Y12 inhibit and Statin/lipid H/O mental health issues: depression, anxiety, or addiction?: No Doesn?t believe in the benefits of treatment?: No Believes medications are unnecessary or harmful?: No Has a concern about medication side effects?: No Expresses concern over the cost of medications?: No Outcomes/Goals: Verbalizes medications,desired effect & common side effects @ DC, Pt self-reports following medication regimen, Keeps card in wallet w/medications listed by DC and Other additional outcome/goals: Interventions/plans: Instruct on medication effects & side effects, Review medication list w/patient every two weeks, Instruct importance of taking meds as ordered & assist problem solving and Other additional Tobacco Use Tobacco Use: Non-smoker Hypertension Hypertension Diagnosis:: Hypertension ICD-10 I10 Resting Blood Pressure:: 128/52 [place] [employer] Hypertension Guidelines Peak Exercise Blood Pressure:: 148/58 Outcomes/Goals: Able to verbalize/achieve optimal blood pressure <130/80, Incorporates diet changes & exercise for blood pressure control by DC and Other additional outcomes/goals Interventions/plan: Instruct on optimal blood pressure, hypertension & medications, Instruct on effects of sodium, alcohol, stress, exercise &hypertension and Other additional plan/interventions 30 day Reassessments:: Progressing Reassessment Notes & Comments:: Pt's BP's are slightly elevated. Will encourage a low sodium heart healthy diet. Tobacco Cessation Referral Smoking Cessation Referral:: No Individual Education/Counseling:: No Education Schedule Given:: Yes Psychosocial - 30-Day Assess VIsit Date of Eval: 11/20/24 Session #:: 11 History of previous Mental disease:: No Target Goals Target Goals Psychosocial Test Tool Used:: [employer] QOL Cardiac and PHQ-9 Questionnaire phq-9 Severity Referral to Behavioral Health PS - Interventions: Yes: Attend Stress Management Classes Outcomes/Goals: See list Psychosocial Outcomes/Goals:: ID's personal stressors & 2 strategies to manage stress by discharge and Other Additional outcome/goals: Intervention/Plan: See List Interventions/Plan:: Assess stressors,coping strategies & signs of derpression on admission, Instruct/assist pt to develop coping & personal stress Mgt strategies, Refer to Behavioral Health if appropriate, Refer to Physician if appropriate, Instruct patient to recognize signs & symptoms of depression, Instruct patient to recog and Other additional plan/intervention 30-day Reassessments: 30 day Reassessments:: Met Reassessment Notes & Comments:: Pt denies any psychosocila issues at this time Psychosocial - 60-Day Assess Target Goals Target Goals Referral to Behavioral Health PS - Interventions: Yes: Attend Stress Management Classes Outcomes/Goals: See list Psychosocial Outcomes/Goals:: ID's personal stressors & 2 strategies to manage stress by discharge and Other Additional outcome/goals: Psychosocial - 90-Day Assess Target Goals Target Goals Referral to Behavioral Health PS - Interventions: Yes: Attend Stress Management Classes Psychosocial - Final Assessmen Target Goals Target Goals Referral to Behavioral Health PS - Interventions: Yes: Attend Stress Management Classes Nutrition - 90-Day Assessment Weight Mgt (Other Care) Height: 5 ft 10 in Weight:: 195 lb BMI: 27.9 Nutrition - Final Assessment Weight Mgt (Other Care) Height: 5 ft 10 in Weight:: 195 lb BMI: 27.9
[2024-11-20 08:58] VITALS: BP 128/52; BMI 27.9
== END 2024-11-27 23:59 ==
LOC: CR 10:15
PROVIDERS: PCP Internal Medicine; Referring Provider Internal Medicine Cardiovascular Disease; Visit Provider Internal Medicine Cardiovascular Disease
DX: I25.10 Atherosclerotic heart disease of native coronary artery without angina pectoris (principal); Z95.5 Presence of coronary angioplasty implant and graft; Z95.1 Presence of aortocoronary bypass graft; Z98.61 Coronary angioplasty status

== ENCOUNTER → 2025-03-11 | Outpatient (CLI) | payer MEDICARE, OTHER, SELFPAY ==
--- NOTE | 2025-03-11 10:03 | ECHOD_ITS ---
Reason For Study Reason For Study: CAD, Mitral regurgitation Procedure This was a 2D Doppler, Color Flow transthoracic echocardiogram. Exam performed in department. Left Ventricle Normal LV size. Mild concentric left ventricular hypertrophy. The LV systolic function is normal. EF is 65 %. Stage II diastolic dysfunction with elevated left atrial filling pressures. Right Ventricle Normal right ventricle. Atria The left atrium is severely enlarged. Normal right atrium. Mitral Valve Mild mitral annular calcification. Mild (1+) mitral valve insufficiency. Tricuspid Valve Mild tricuspid valve insufficiency. Right ventricular systolic pressure estimated to be 54 mmHg. Aortic Valve Aortic sclerosis, no stenosis. Pulmonic Valve The pulmonic valve is not well visualized. Great Vessels Moderately calcified aortic root. Pericardium/Pleural No pericardial effusion. MMode/2D Measurements & Calculations LVIDd: 5.2 cm IVSd: 1.3 cm LVOT diam: 2.1 cm LVIDs: 3.3 cm LVPWd: 1.3 cm LVOT area: 3.6 cm2 RVDd: 3.9 cm FS: 37.1 % Ao root diam: 3.6 cm LAV(MOD-bp): 101.5 ml LVAd ap4: 38.7 cm2 LA dimension: 5.6 cm LAV(MOD-bp) Indexed: 50.2 ml/m2 LVLd ap4: 9.3 cm LAV(MOD-sp2): 91.6 ml EDV(MOD-sp4): 135.3 ml LAV(MOD-sp4): 105.0 ml EDV(sp4-el): 136.8 ml LVAs ap4: 18.5 cm2 LVLs ap4: 7.8 cm ESV(MOD-sp4): 39.2 ml ESV(sp4-el): 37.2 ml EF(MOD-sp4): 71.0 % EF(sp4-el): 72.8 % LVAd ap2: 35.2 cm2 SV(MOD-sp4): 96.1 ml SV(MOD-sp2): 79.3 ml LVLd ap2: 9.0 cm SI(MOD-sp4): 47.5 ml/m2 SI(MOD-sp2): 39.2 ml/m2 EDV(MOD-sp2): 115.7 ml EDV(sp2-el): 117.4 ml LVAs ap2: 17.9 cm2 LVLs ap2: 7.6 cm ESV(MOD-sp2): 36.5 ml ESV(sp2-el): 35.6 ml EF(MOD-sp2): 68.5 % SV(sp4-el): 99.6 ml LA dimension(2D): 5.1 cm LA A4 area: 29.9 cm2 RA A4 area: 19.3 cm2 TAPSE: 2.2 cm Time Measurements MV dec time: 0.29 sec Doppler Measurements & Calculations MV E max lopez: 119.4 cm/sec Lat Peak E' Lopez: 7.2 cm/sec Med Peak E' Lopez: 4.7 cm/sec MV A max lopez: 86.8 cm/sec E/E' lat: 16.7 E/E' med: 25.5 MV E/A: 1.4 Ao V2 max: 180.3 cm/sec LV V1 max: 143.9 cm/sec MV dec slope: 409.7 cm/sec2 Ao max P.0 mmHg LV V1 max P.3 mmHg Ao V2 mean: 110.3 cm/sec LV V1 mean P.3 mmHg Ao mean P.8 mmHg LV V1 mean: 98.0 cm/sec Ao V2 VTI: 43.5 cm LV V1 VTI: 37.3 cm AV (velocity ratio): 0.86 MOHINI(I,D): 3.1 cm2 MOHINI(V,D): 2.8 cm2 SV(LVOT): 133.2 ml PA V2 max: 124.6 cm/sec TR max lopez: 311.2 cm/sec TR max P.7 mmHg ECHO/Echo Complete Interpretation Summary Mild concentric left ventricular hypertrophy. The LV systolic function is normal. EF is 65 %. Stage II diastolic dysfunction with elevated left atrial filling pressures. The left atrium is severely enlarged. Mild (1+) mitral valve insufficiency. Mild tricuspid valve insufficiency. Right ventricular systolic pressure estimated to be 54 mmHg. Aortic sclerosis, no stenosis. Moderately calcified aortic root. Ordering Physician: Rubio Simeon Referring Physician: Sher Jules M.D. Performed By: Rupa Ramires RDCS
== END | disposition home or self-care (01) ==
LOC: CVS 09:59
PROVIDERS: PCP Internal Medicine; Referring Provider Internal Medicine Cardiovascular Disease; Visit Provider Internal Medicine Cardiovascular Disease
DX: I34.0 Nonrheumatic mitral (valve) insufficiency (principal)
CPT/HCPCS: 93306

== ENCOUNTER 2025-04-29 22:27 | Emergency (ER) | payer MEDICARE, OTHER, SELFPAY ==
[2025-04-29 22:27] VITALS: BP 161/75; PULSE 100; RESP 20; TEMP 36; O2SAT 99; BMI 28.0
[2025-04-29 23:34] VITALS: BP 146/51; PULSE 70; RESP 18; O2SAT 95
[2025-04-29] MEDS: Lidocaine 1% (20 ml mdv) 20 ML Vial INFILT (23:57)
[2025-04-30] VITALS: PULSE 72; RESP 18; O2SAT 96
[2025-04-30 00:39] VITALS: BP 148/70; PULSE 85; RESP 22; TEMP 36.6; O2SAT 95
== END 2025-04-30 00:57 | disposition home or self-care (01) ==
PROVIDERS: Emergency Provider Emergency Medicine; PCP Internal Medicine; Visit Provider Emergency Medicine
DX: S01.01XA Laceration without foreign body of scalp, initial encounter (principal); E11.9 Type 2 diabetes mellitus without complications; R55 Syncope and collapse; W08.XXXA Fall from other furniture, initial encounter; I10 Essential (primary) hypertension; I25.10 Atherosclerotic heart disease of native coronary artery without angina pectoris; E78.5 Hyperlipidemia, unspecified; I25.2 Old myocardial infarction; Z95.1 Presence of aortocoronary bypass graft; Z79.82 Long term (current) use of aspirin; Z79.02 Long term (current) use of antithrombotics/antiplatelets; Z79.84 Long term (current) use of oral hypoglycemic drugs; Z79.899 Other long term (current) drug therapy; Z87.891 Personal history of nicotine dependence; Z23 Encounter for immunization
CPT/HCPCS: 12004; 70450; 90471; 90715; 99283

== ENCOUNTER 2025-05-08 06:04 | Day surgery (SDC) | payer MEDICARE, OTHER, SELFPAY ==
[2025-05-08] VITALS (13 sets, daily range): BP systolic 134–192; BP diastolic 55–103; PULSE 56–68; RESP 16–18; TEMP 36.1–36.7; O2SAT 92–99; BMI 26.5
--- OUTSIDE RECORDS SUMMARY | 2025-05-08 06:14 | XMS RPT_ITS | CCD ---
Author Organization [facility] Care Team Providers Care Senior C Developer Name Role Phone Jorge A LADD, Sher Pringle Primary Care Provider Dr. Sher Jules Primary Care Provider Dr. Crys Pitt Emergency Provider Dr. Felicity Lieberman Admit Provider Dr. Felicity Lieberman Attending Provider Dr. Felicity Lieberman Other Provider Dr. Nain Segundo Attending Provider Sher Jules MD Primary Care Provider Jorge A LADD, Sher Pringle Primary Care Provider Enriqueta LADD, Trevor Unavailable Enriqueta LADD, Trevor Unavailable Dr. Sher Jules Primary Care Provider Dr. Kvng Jacobson Emergency Provider [phone] Dr. Rubio Simeon Attending Provider Dr. Rubio Simeon Referring Provider Dr. Geeta Mendoza Attending Provider Dr. Karl Wan Attending Provider Dr. Rubio Simeon Other Provider Dr. Geeta Mendoza Admit Provider Dr. Geeta Mendoza Other Provider Dr. Debby Machuca Attending Provider Koram, Dr. Debby Fiona Other Provider Jorge A LADD, Sher Pringle Primary Care Provider BIB PATTERSON Referring Unavailable JULES, SHER Pringle Primary Care Unavailable BIB PATTERSON Referring Unavailable JULES, SHER Pringle Primary Care Unavailable Sher Jules Primary Care Provider Maximo MUSEUM CURATORJUAN, Barb Ley Unavailable SERGEI COLLINS Attending Unavailable SERGEI COLLINS Attending Unavailable SERGEI COLLINS Admitting Unavailable JORGE A, SHER Primary Care Unavailable Jorge A LADD, Dr. Olivarez Primary Care Provider Blanco LADD, Dr. Bergeron Attending Provider Blanco LADD, Dr. Bergeron Referring Provider Jorge A LADD, Dr. Olivarez Referring Provider Kenny CHAPMAN-CNaz Attending Provider Enriqueta LADD, Trevor Unavailable SHER JULES Primary Care Unavailable JULES, SHER Pringle Referring Unavailable JULES, SHER Pringle Primary Care Unavailable JULES, SHER Pringle Referring Unavailable JULES, SHER Pringle Primary Care Unavailable ELVIE MONTERROSO Attending Unavailable NIKOS RIVERA Referring Unavailable JULES, SHER Pringle Primary Care Unavailable BARB SUGGS Referring Unavailable JORGE A, SHER Pringle Primary Care Unavailable BARB SUGGS Referring Unavailable NARGIS YIN Referring Unavailable JULES, SHER Pringle Primary Care Unavailable NARGIS YIN Attending Unavailable JORGE A, SHER Pringle Primary Care Unavailable GOMEZ SCHWAB Attending Unavailable GOMEZ SCHWAB Referring Unavailable JULES, SHER Pringle Primary Care Unavailable JULES, SHER Pringle Primary Care Unavailable JULES, SHER Pringle Attending Unavailable ELVIE MONTERROSO Attending Unavailable BARB SUGGS Referring Unavailable JULES, SHER Pringle Primary Care Unavailable JULES, SHER Pringle Referring Unavailable JULES, SHER Pringle Primary Care Unavailable JULES, SHER Pringle Primary Care Unavailable ELVIE MONTERROSO Referring Unavailable NIKOS RIVERA Attending Unavailable TESTGOMEZ TITUS Referring Unavailable JULES, SHER Pringle Primary Care Unavailable TESTRAMIGUEL, GOMEZ Attending Unavailable JULES, VENUS Primary Care Unavailable JULES, VENUS Referring Unavailable JULES, VENUS Primary Care Unavailable JULES, VENUS Attending Unavailable JULES, VENUS Primary Care Unavailable TESTMIGUEL, GOMEZ Attending Unavailable JULES, VENUS Primary Care Unavailable BARB SUGGS Attending Unavailable Jorge A LADD, Dr. Olivarez Primary Care Provider Blanco LADD, Dr. Bergeron Attending Provider Blanco LADD, Dr. Bergeron Referring Provider Rodrigo LADD, Dr. Madrigal Emergency Provider [phone] Jose A CDL BULK DRIVER-CJordana Attending Provider [phone] Sanya LADD, Dr. Gillette Attending Provider Rodrigo LADD, Dr. Madrigal Attending Provider Jennifer LADD, Dr. Lucero Attending Provider Jorge A, Sher Primary Care Unavailable Nic Rodriguez Attending Unavailable Jules, Sher Primary Care Unavailable SleikFanyalecarla Attending Unavailable Sleik Khalecarla Referring Unavailable Blanco, Rubio Referring Unavailable Blanco, Rubio Attending Unavailable Jules, Sher Primary Care Unavailable Blanco, Rubio Referring Unavailable Blanco, Rubio Attending Unavailable Jules, Sher Primary Care Unavailable Naz Cox Attending Unavailable Jules, Sher Primary Care Unavailable Jules, Sher Primary Care Unavailable Naz Cox Referring Unavailable Naz Cox Consulting Unavailable aNin Segundo Attending Unavailable Blanco, Rubio Referring Unavailable Blanco, Rubio Attending Unavailable Jules, Sher Primary Care Unavailable Blanco, Rubio Referring Unavailable Blanco, Rubio Attending Unavailable Jules, Sher Primary Care Unavailable Roof CDL BULK DRIVER, Tootie H Attending Unavailable Roof CDL BULK DRIVER, Tootie H Referring Unavailable Jules, Sher Primary Care Unavailable Blanco, Rubio Referring Unavailable Blanco, Rubio Attending Unavailable Jules, Sher Primary Care Unavailable Jules, Sher Primary Care Unavailable Rohan Wallace Attending Unavailable Karl Wan Attending Unavailable Blanco, Rubio Referring Unavailable Jules, Sher Primary Care Unavailable Jules, Sher Primary Care Unavailable Naz Cox Referring Unavailable SanyaNain leung Attending Unavailable Jules, Sher Primary Care Unavailable Kenny, Naz Attending Unavailable Blanco, Rbuio Attending Unavailable Jules, Sher Primary Care Unavailable Jules, Sher Referring Unavailable Tootie Chu NP Attending Unavailable Jules, Sher Referring Unavailable Jules, Sher Primary Care Unavailable Jules, Sher Primary Care Unavailable Naz Cox Attending Unavailable Jules, Sher Referring Unavailable Jules, Sher Primary Care Unavailable Kenny, Naz Attending Unavailable Jules, Sher Referring Unavailable Jules, Sher Referring Unavailable Blanco, Rubio Attending Unavailable Jules, Sher Primary Care Unavailable Jules, Sher Primary Care Unavailable Naz Cox Referring Unavailable Kenny, Naz Attending Unavailable Kenny, Naz Attending Unavailable Jules, Sher Primary Care Unavailable Naz Cox Referring Unavailable Nain Segundo Attending Unavailable Blanco, Rubio Attending Unavailable Jules, Sher Primary Care Unavailable Blanco, Rubio Referring Unavailable Blanco, Rubio Attending Unavailable Jules, Sher Primary Care Unavailable Jules, Sher Primary Care Unavailable Bib Patterson Attending Unavailable Bib Patterson Referring Unavailable Blanco, Rubio Referring Unavailable Blanco, Rubio Attending Unavailable Jules, Sher Primary Care Unavailable Jules, Sher Primary Care Unavailable Jordana Naranjo Attending Unavailable Jules, Sher Referring Unavailable Jules, Sher Primary Care Unavailable Nain Segundo Attending Unavailable Jules, Sher Primary Care Unavailable Nic Rodriguez Attending Unavailable Jules, Sher Referring Unavailable Blanco, Rubio Attending Unavailable Jules, Sher Primary Care Unavailable Jules, Sher Referring Unavailable Medications Current Medications Medication Drug Class(es) Dates Sig (Normalized) Sig (Original) 10 ml aminophylline 25 mg/ml injection (1 source) Start: 02-10-2024 End: 02-17-2024 aminophylline 50-250 mg injection amLODIPine 10 mg oral tablet (20 sources) Dihydropyridine Calcium Channel Luis Alberto Start: 12-11-2022 End: 02-10-2024 take 1 tablet by mouth once daily Amlodipine 10 mg tablet Active 10 mg PO DAILY January 28, 2024 12:00am Start: 01-02-2022 take 1 tablet by deonte th once daily amLODIPine (NORVASC) 10 mg tablet Take 1 tablet by mouth once daily. 90 tablet 3 01/02/2022 Active Comment on above: Take 1 tablet by deonte th once daily. amoxicillin 875 mg / clavulanate 125 mg oral tablet (1 source) Penicillin-class Antibacterial Start: 10-31-19 End: 11-07-19 amoxicillin-clavulan ate potassium (AUGMENTIN) 875-125 mg per tablet Take 1 tablet by mouth two times a day for 7 days. FOR 7 DAYS. 14 tablet 0 10/31/2023 11/07/2023 Active Comment on above: Take 1 tablet by deonte th two times a day for 7 days. FOR 7 DAYS. atorvastatin 40 mg oral tablet (20 sources) HMG-CoA Reductase Inhibitor Start: 09-14-20 take 1 tablet by mouth once daily in the evening Atorvastatin 40 mg tablet Active 40 mg PO EVERY EVENING 90 3 September 14, 2024 1:00am Start: 01-30-2024 End: 09-15-2024 take 1 tablet by mouth at bedtime Atorvastatin 80 mg Tablet Discontinued 80 mg PO AT BEDTIME 30 2 January 30, 2024 12:00am September 14, 2024 4:04pm Start: 01-02-2022 End: 02-07-2024 take 1 tablet by mouth once daily Atorvastatin 40 mg Tablet Discontinued 40 mg PO DAILY January 28, 2024 12:00am January 30, 2024 11:36am Start: 04-18-2016 End: 05-30-2022 take 2 tablets by mouth at bedtime Atorvastatin 20 MG tablet Discontinued 40 mg PO AT BEDTIME April 18, 2016 12:00am May 30, 2022 11:33am Start: 04-18-2016 End: 05-30-2022 take 40 mg by mouth at bedtime Atorvastatin Discontinu ed 40 MG PO AT BEDTIME April 18, 2016 12:00am May 30, 2022 11:33am Comment on above: Take 1 tablet by deonte th once daily. For cholesterol Take 1 tablet by deonte th daily at bedtime. For cholesterol. cloNIDine hydrochloride 0.2 mg oral tablet (20 sources) Central alpha-2 Adrenergic Agonist Start: End: take 1 tablet by mouth twice daily Clonidine Hcl 0.2 mg tablet Active 0.2 mg PO TWICE A DAY January 28, 2024 12:00am Start: 06-10-2023 take 1 tablet by deonte th twice daily cloNIDine HCl (CATAPRES) 0.2 mg tablet Indications: Essential hypertension Take 1 tablet by mouth twice daily. 180 tablet 3 06/10/2023 Active Start: 06-10-2023 take 1 tablet by deonte th twice daily cloNIDine HCl (CATAPRES) 0.2 mg tablet Indications: Essential hypertension Take 1 tablet by mouth twice daily. 180 tablet 3 06/10/2023 Active Start: 06-10-2023 take 1 tablet by deonte th twice daily cloNIDine HCl (CATAPRES) 0.2 mg tablet Indications: Essential hypertension Take 1 tablet by mouth twice daily. 180 tablet 3 06/10/2023 Active Start: 06-10-2023 take 1 tablet by deonte th twice daily cloNIDine HCl (CATAPRES) 0.2 mg tablet Indications: Essential hypertension Take 1 tablet by mouth twice daily. 180 tablet 3 06/10/2023 Active Start: 06-11-2022 End: 03-29-2023 take 1 tablet by mouth twice daily cloNIDine HCl (CATAPRES) 0.2 mg tablet Indications: Essential hypertension Take 1 tablet by mouth twice daily. 180 tablet 3 07/18/2022 03/29/2023 Discontinued Comment on above: Take 1 tablet by deonte th twice daily. Take 1 tablet by deonte th two times a day. clopidogrel 75 mg oral tablet (20 sources) P2Y12 Platelet Inhibitor Start: 02-10-2024 End: 2026 take 1 tablet by mouth once daily Clopidogrel 75 mg tablet Active 75 mg PO daily May 28, 2024 12:00am Start: 04-18-2016 End: 01-28-2024 take 1 tablet by mouth once daily Clopidogrel 75 MG tablet Discontinued 75 mg PO DAILY April 18, 2016 12:00am January 28, 2024 5:57pm antiplatelet Comment on above: Take 1 tablet by deonte th once daily. gabapentin 300 mg oral capsule (20 sources) Anti-epileptic Agent Start: 10-29-2023 End: 06-24-2025 take 1 capsule by mouth once daily Gabapentin 300 mg capsule Active 300 mg PO DAILY January 28, 2024 12:00am Start: 01-02-2022 End: 09-25-2023 take 1 capsule by mouth once daily at bedtime gabapentin (NEURONTIN) 300 mg capsule Take 1 capsule by mouth daily at bedtime for 180 days. 90 capsule 1 03/29/2023 09/25/2023 Active Comment on above: [facility] for 180 days. hydrALAZINE hydrochloride 50 mg oral tablet (20 sources) Arteriolar Vasodilator Start: End: take 1 tablet by mouth three times daily Hydralazine 50 mg tablet Active 50 mg PO THREE TIMES A DAY 3 December 04, 2024 6:00pm Start: 05-28-2024 End: 05-28-2024 take 2 tablets by mouth twice daily Hydralazine 100 mg tablet Discontinued 200 mg PO TWICE A DAY May 28, 2024 10:38am May 28, 2024 11:04am Start: 03-29-2023 End: 05-28-2024 take 1 tablet by mouth three times daily Hydralazine 100 mg tablet Discontinued 100 mg PO THREE TIMES A DAY January 28, 2024 12:00am May 28, 2024 10:39am Start: 07-11-2022 End: 03-27-2023 take 1 tablet by mouth three times daily hydrALAZINE (APRESOLINE) 100 mg tablet Indications: Essential hypertension Take 1 tablet by mouth three times daily. 270 tablet 1 10/24/2022 03/27/2023 Discontinued Start: 01-02-2022 End: 07-09-2022 take 1 tablet by mouth three times daily hydrALAZINE (APRESOLINE) 100 mg tablet Indications: Essential hypertension Take 1 tablet by mouth three times daily. 270 tablet 1 01/02/2022 07/09/2022 Discontinued Comment on above: Take 1 tablet by deonte three times daily. Take 1 tablet by deonte three times a day for 15 days. lisinopril 40 mg oral tablet (20 sources) Angiotensin Converting Enzyme Inhibitor Start: 3 End: take 1 tablet by mouth twice daily Lisinopril 40 mg tablet Active 40 mg PO TWICE A DAY January 28, 2024 12:00am Comment on above: Take 1 tablet by deonte th twice daily. Take 1 tablet by deonte th two times a day. metFORMIN hydrochloride 500 mg oral tablet (20 sources) Biguanide Start: End: take 2 tablets by mouth twice daily Metformin 500 mg tablet Active 1000 mg PO TWICE A DAY May 28, 2024 10:38am diabetes Start: 12-11-2022 End: 02-06-2023 take 1 tablet by mouth once daily at breakfast metFORMIN (GLUCOPHAGE) 500 mg tablet Take 1 tablet by mouth daily with breakfast. 90 tablet 3 12/11/2022 02/06/2023 Discontinued Start: 04-18-2016 End: 05-28-2024 take 1 tablet by mouth twice daily Metformin 500 MG tablet Discontinued 500 mg PO TWICE A DAY April 18, 2016 12:00am May 28, 2024 10:39am diabetes Start: 04-18-2016 take 1 tablet by deonte th once daily at breakfast metFORMIN (GLUCOPHAGE) 500 mg tablet Take 1 tablet by mouth daily with breakfast. 90 tablet 3 01/02/2022 Active Comment on above: Take 1 tablet by deonte th daily with breakfast. Take 2 tablets by mo ut twice daily with meals. Take 1 tablet by deonte twice daily with meals. Take 2 tablets by mo uth two times a day with meals. metoprolol tartrate 25 mg oral tablet (20 sources) beta-Adrenergic Luis Alberto Start: 03-16-2025 take 0.5 tablet by mouth every twelve hours metoprolol tartrate, short acting, (LOPRESSOR) 25 mg tablet Take 0.5 tablets by mouth every 12 hours. 03/16/2025 Active Start: 03-04-2025 take 2 tablets by mo uth every twelve hours metoprolol tartrate, short acting, (LOPRESSOR) 25 mg tablet TAKE 2 TABLETS BY MOUTH EVERY 12 HOURS 360 tablet 03/04/2025 Active Start: 09-11-2024 Metoprolol Tar trate 25 mg tablet Active 12.5 mg PO TWICE A DAY September 14, 2024 2:59pm Start: 09-11-2024 End: 03-04-2025 take 0.5 tablet by mouth twice daily metoprolol tartrate, short acting, (LOPRESSOR) 25 mg tablet Take 0.5 tablets by mouth two times a day. 09/11/2024 03/04/2025 Discontinued Start: 06-26-2024 End: 09-14-2024 Metoprolol Tartrate 25 mg ta blet Discontinued 12.5 mg PO DAILY 60 2 June 26, 2024 10:03am September 14, 2024 3:00pm Start: 05-28-2024 End: 06-26-2024 Metoprolol Tartrate 25 mg ta blet Discontinued 12.5 mg PO TWICE A DAY 60 2 May 28, 2024 3:44pm June 26, 2024 10:04am Start: 02-10-2024 End: 02-17-2024 metoprolol 2.5-5 mg injectio n (LOPRESSOR) Start: 02-10-2024 End: 02-04-2025 take 2 tablets by mouth every twelve hours metoprolol tartrate, short acting, (LOPRESSOR) 25 mg tablet Take 2 tablets by mouth every 12 hours. 360 tablet 3 02/10/2024 09/11/2024 Discontinued Start: 01-30-2024 End: 02-10-2024 take 1 tablet by mouth every twelve hours metoprolol tartrate, short acting, (LOPRESSOR) 25 mg tablet Take 1 tablet by mouth every 12 hours. 0 01/30/2024 02/10/2024 Discontinued Start: 01-30-2024 End: 05-28-2024 take 1 tablet by mouth twice daily Metoprolol Tartrate 25 mg Tablet Discontinued 25 mg PO TWICE A DAY 60 2 January 30, 2024 12:00am May 28, 2024 3:45pm Start: 04-18-2016 End: 01-28-2024 take 1 tablet by mouth once daily Metoprolol Succinate 100 MG tablet Discontinued 100 mg PO DAILY April 18, 2016 12:00am January 28, 2024 6:55pm blood pressure Comment on above: Take 1 tablet by deonte th once daily. Take 1 tablet by deonte th every 12 hours. [facility] 2 tablets [facility] 12 [facility]. Multivitamin With Folic Acid (Thera) 1 TABLET tablet (11 sources) Start: 04-18-2016 take 1 tablet by mouth once daily Multivitamin With Folic Acid (Thera) 1 TABLET tablet Active 1 {tbl} PO DAILY April 18, 2016 12:00am vitamin Start: 04-18-2016 take 1 tablet by deonte th once daily Multivitamin With Folic Acid (Thera) 1 TABLET tablet Active 1 {tbl} PO DAILY April 18, 2016 12:00am Start: 04-18-2016 take 1 tablet by deonte th once daily Multivitamin With Folic Acid (Thera) 1 TABLET tablet Active 1 TABLET PO DAILY April 18, 2016 12:00am nirmatrelvir tablet 300 mg (150 mg x 2) and ritonavir tablet 100 mg in a dose pack (PAXLOVID) (1 source) Start: 09-24-2022 End: 09-29-2022 nirmatrelvir tablet 300 mg (150 mg x 2) and ritonavir tablet 100 mg in a dose pack (PAXLOVID) Indications: COVID-19 virus infection Administer TWO pink nirmatrelvir 150 mg tablets and ONE white ritonavir 100 mg tablet for a total of three tablets twice daily. 30 tablet 0 09/24/2022 09/29/2022 Active Comment on above: Administer TWO pink nirmatrelvir 150 mg tablets and ONE white ritonavir 100 mg tablet for a total of three tablets twice daily. nitroglycerin 0.3 mg sublingual tablet (20 sources) Nitrate Vasodilator Start: 04-06-2024 Nitroglycerin 0.3 mg tablet, sublingual Active 0.3 mg SL Q5M as needed for angina May 28, 2024 12:00am omeprazole 40 mg delayed release oral capsule (7 sources) Proton Pump Inhibitor Start: 04-14-2025 End: 05-22-2025 take 1 capsule by mouth once daily Omeprazole 40 mg capsule,delayed release(DR/EC) Active 40 mg PO DAILY April 29, 2025 12:00am therapeutic multivitamin tablet (20 sources) Start: 10-26-2013 take 1 tablet by mouth once daily at breakfast therapeutic multivitamin tablet Take 1 tablet by mouth daily with breakfast. 0 10/26/2013 Active Comment on above: Take 1 tablet by deonte th daily with breakfast. Completed/Discontinued Medications Medication Drug Class(es) Dates Sig (Normalized) Sig (Original) aspirin 81 mg chewable tablet (20 sources) Platelet Aggregation Inhibitor, Nonsteroidal Anti-inflammatory Drug Start: 09-30-2024 End: 09-30-2024 take 243 mg by mouth once 243 mg, Oral, Once, On Sat09/30/24 at 1000, For 1 dose, Preprocedure Start: 01-30-2024 take 1 tablet by deonte th at breakfast Aspirin 81 mg Tablet,Delayed Release (Dr/Ec) Active 81 mg PO WITH BREAKFAST 30 January 30, 2024 12:00am Start: 04-18-2016 End: 01-30-2024 Aspirin (Adult Low Dose Aspi rin) 81 MG tablet,delayed release (DR/EC) Discontinued 162 mg PO DAILY April 18, 2016 12:00am January 30, 2024 11:36am heart health Start: 10-26-2013 End: 02-07-2024 take 2 tablets by mouth once daily aspirin 81 mg chewable tablet Take 2 tablets by mouth once daily. 0 10/26/2013 02/07/2024 Discontinued (Duplicate Entry) Comment on above: Take 2 tablets by mo uth once daily. Take 1 tablet by deonte th once daily. Benzocaine (1 source) Standardized Chemical Allergen Start: End: 1 spray, TOPICAL, DIRECTED, Starting on Sat04/14/25 at 0830, Until Sat04/14/25 at 1229, Dosing as directed for intraprocedural use only - Pharmaceutical Waste: Aerosol -, Intraprocedure calcium chloride 0.0014 meq/ml / potassium chloride 0.004 meq/ml / sodium chloride 0.103 meq/ml / sodium lactate 0.028 meq/ml injectable solution (1 source) Start: End: take 30 mL intravenously every hour 30 mL/hr, INTRAVENOUS, CONTINUOUS, Starting on Sat04/14/25 at 0800, Until Sat04/14/25 at 0916, Preprocedure carvedilol 12.5 mg oral tablet (20 sources) alpha-Adrenergic Luis Alberto, beta-Adrenergic Luis Alberto Start: 023 End: take 1 tablet by mouth twice daily Carvedilol 12.5 mg tablet Discontinued 12.5 mg PO TWICE A DAY January 28, 2024 12:00am January 30, 2024 11:32am Start: 09-05-2022 take 1 tablet by deonte th twice daily carvedilol (COREG) 12.5 mg tablet Take 1 tablet by mouth twice daily. 60 tablet 3 09/05/2022 Active Comment on above: Take 1 tablet by deonte twice daily. TAKE 1 TABLET BY DEONTE TH TWICE A DAY cilostazol 50 mg oral tablet (20 sources) Phosphodiesterase 3 Inhibitor Start: 12-12-2022 End: 02-07-2024 cilostazol (PLETAL) 50 mg tablet take 1 tablet twice a day 180 tablet 3 09/30/2023 02/07/2024 Discontinued (Discontinued by another Health Care Provider) Start: 04-25-2021 End: 01-30-2024 take 1 tablet by mouth twice daily Cilostazol 100 mg tablet Discontinued 100 mg PO TWICE A DAY April 25, 2021 12:00am January 30, 2024 11:35am anti platelet Comment on above: Take 1 tablet by deonte th twice daily. take 1 tablet twice a day diphenhydrAMINE (1 source) Histamine-1 Receptor Antagonist Start: 04-14-20 End: 04-14-20 12.5-50 mg, INTRAVENOUS, DIRECTED, Starting on Sat04/14/25 at 0830, Until Sat04/14/25 at 1229, DOSING DIRECTED BY PHYSICIAN FOR PROCEDURAL SEDATION ONLY, Intraprocedure doxazosin 8 mg oral tablet (19 sources) alpha-Adrenergic Luis Alberto Start: 04-25-20 End: 01-28-20 take 1 mg by mouth at bedtime Doxazosin 8 mg tablet Discontinued 1 mg PO AT BEDTIME April 25, 2021 12:00am January 28, 2024 5:59pm prostate Start: 04-25-2021 End: 01-28-2024 take 1 mg by mouth at bedtime Doxazosin Discontinued 1 MG PO AT BEDTIME April 25, 2021 12:00am January 28, 2024 5:59pm Comment on above: Take 1 tablet by deonte daily at bedtime. 1 ml fentaNYL 0.05 mg/ml injection (1 source) Opioid Agonist Start : 04-14 End: 04-14 25-100 mcg, INTRAVENOUS, DIRECTED, Starting on Sat04/14/25 at 0830, Until Sat04/14/25 at 1229, DOSING DIRECTED BY PHYSICIAN FOR PROCEDURAL SEDATION ONLY, Intraprocedure furosemide 40 mg oral tablet (10 sources) Loop Diuretic Start : 01-29 End: 05-28 take 1 tablet by mouth once daily Furosemide 40 mg Tablet Discontinued 40 mg PO DAILY 30 January 30, 2024 12:00am May 28, 2024 10:37am On Hold: Pt has been DC'd Comment on above: Take 1 tablet by deonte th every afternoon. hydroCHLOROthiazide 25 mg oral tablet (16 sources) Thiazide Diuretic Start : 09-14 End: 11-13 take 1 tablet by mouth once daily Hydrochlorothiazide 25 mg tablet Discontinued 25 mg PO daily 90 September 14, 2024 1:00am September 28, 2024 4:41pm iv contrast (will be provided with radiology test) (2 sources) Start : 01-15 End: 01-16 inject 1 dose intravenously once iv contrast (will be provided with radiology test) CTA ABD/PEL LE - No IV access, insert saline lock prior to the sedation, infusion, injection for imaging exam. Discontinue saline lock post exam. If Pt. has a central line or IVAD, may access for administration according to line specific nursing protocol. Once exam is complete flush line and de-access according to line specific nursing protocol in the CT contrast administration guidelines link. 1 Each 0 01/15/2023 01/16/2023 Start: 01-15-2023 End: 01-16-2023 inject 1 dose intravenously once iv contrast (will be provided with radiology test) CTA ABD/PEL LE - No IV access, insert saline lock prior to the sedation, infusion, injection for imaging exam. Discontinue saline lock post exam. If Pt. has a central line or IVAD, may access for administration according to line specific nursing protocol. Once exam is complete flush line and de-access according to line specific nursing protocol in the CT contrast administration guidelines link. 1 Each 0 01/15/2023 01/16/2023 Active Comment on above: CTA ABD/PEL LE - No IV access, insert saline lock prior to the sedation, infusion, injection for imaging exam. Discontinue saline lock post exam. If Pt. has a central line or IVAD, may access for administration according to line specific nursing protocol. Once exam is complete flush line and de-access according to line specific nursing protocol in the CT contrast administration guidelines link. 5 ml midazolam 1 mg/ml injection (1 source) Benzodiazepine Start: 04-14-2025 End: 04-14-2025 1-5 mg, INTRAVENOUS, DIRECTED, Starting on Sat04/14/25 at 0830, Until Sat04/14/25 at 1229, DOSING DIRECTED BY PHYSICIAN FOR PROCEDURAL SEDATION ONLY, Intraprocedure Miscellaneous Medical Supply (COMPRESSION STOCKINGS) misc (20 sources) Start: 07-13-2016 End: 09-11-2024 Miscellaneous Medical Supply (COMPRESSION STOCKINGS) misc Indications: Leg swelling COMPRESSION STOCKINGS KNEE HI 20-30 WT M79.89 2 Each 3 07/13/2016 09/11/2024 Discontinued Start: 07-13-2016 Miscellaneous Medical Supply (COMPRESSION STOCKINGS) misc Indications: Leg swelling COMPRESSION STOCKINGS KNEE HI 20-30 WT M79.89 2 Each 3 07/13/2016 Active Comment on above: COMPRESSION STOCKING S KNEE HI 20-30 WT M79.89 microencapsulated potassium chloride 20 meq extended release oral tablet (10 sources) Start: End: take 1 tablet by mouth once daily at mealtime Potassium Chloride 20 mEq Tablet,Er Particles/Crystals Discontinued 20 meq PO DAILY WITH MEALS 30 January 30, 2024 12:00am May 28, 2024 10:39am On Hold: Pt has been DC'd Comment on above: Take 1 tablet by deonte once daily. predniSONE 10 mg oral tablet (14 sources) Start: End: take 1 tablet by mouth three times daily Prednisone 10 mg tablet Discontinued 0 mg PO THREE TIMES A DAY January 28, 2024 12:00am May 28, 2024 10:39am On Hold: Pt has been DC'd 10 mg orally; Please contact the information source for Taper Schedule details. Start: 2024 End: 02-08-2024 predniSONE (DELTASONE) 10 mg tablet Take 4 tabs daily x 3 days, then 3 tabs x 3 days, 2 tabs x 3 days, then 1 tab x3 days with food. 30 tablet 2024 02/08/2024 Comment on above: Take 4 tabs daily x 3 days, then 3 tabs x 3 days, 2 tabs x 3 days, then 1 tab x3 days with food. quinapril 40 mg oral tablet (20 sources) Angiotensin Converting Enzyme Inhibitor Start: 2 End: 4 take 1 tablet by mouth twice daily Quinapril 40 mg tablet Discontinued 40 mg PO TWICE A DAY May 29, 2022 12:00am January 28, 2024 7:23pm blood pressure Start: 04-18-2016 take 1 tablet by deonte twice daily Quinapril Hcl (Accupril) 10 MG tablet Active 10 MG PO TWICE A DAY April 18, 2016 12:00am Comment on above: Take 1 tablet by deonte twice daily. regadenoson 0.4 mg injection (LEXISCAN) (3 sources) Start: 03-12-2024 End: 03-12-2024 regadenoson 0.4 mg injection (LEXISCAN) Start: 02-10-2024 End: 02-17-2024 regadenoson 0.4 mg injection (LEXISCAN) 1000 ml sodium chloride 9 mg/ml injection (8 sources) Start: 09-30-2024 End: 09-30-2024 take 100 mL intravenously every hour 100 mL/hr, IntraVENous, Continuous, Starting on Sat09/30/24 at 1245, For 6 hours, Recovery & On Unit Start: 09-30-2024 End: 09-30-2024 5-40 mL, IntraVENous, PRN, l ine care, After every IV line use, Starting on Sat09/30/24 at 0956, Preprocedure, For Line Patency: Peripheral IV = 5 mL; Midline or Central Line = 10 mL/lumen. If following IV push medication, administer flush at same rate as the IV push. Flush volume is determined by type of infusion therapy being given. For non-viscous solutions use: Peripheral IV = 5 mL Midline or Central Line = 10 mL/lumen For viscous solutions (i.e. blood components, parenteral nutrition, contrast media, or after obtaining blood sample) use: Peripheral IV = 10 mL Midline or Central Line = 20 mL/lumen Start: 09-30-2024 End: 09-30-2024 take 5-40 mL intravenously every twelve hours 5-40 mL, IntraVENous, Every 12 hours, First dose on Sat09/30/24 at 1000, Preprocedure, For Line Patency: Peripheral IV = 5 mL; Midline or Central Line = 10 mL/lumen. If following IV push medication, administer flush at same rate as the IV push. Flush volume is determined by type of infusion therapy being given. For non-viscous solutions use: Peripheral IV = 5 mL Midline or Central Line = 10 mL/lumen For viscous solutions (i.e. blood components, parenteral nutrition, contrast media, or after obtaining blood sample) use: Peripheral IV = 10 mL Midline or Central Line = 20 mL/lumen ticagrelor 90 mg oral tablet (12 sources) Start: 01-30-2024 End: 05-28-2024 take 1 tablet by mouth twice daily Ticagrelor (Brilinta) 90 mg Tablet Discontinued 90 mg PO TWICE A DAY 60 January 30, 2024 12:00am May 28, 2024 10:39am Comment on above: Take 1 tablet by deonte th two times a day. Problems Active Problems Problem Classification Problem Date Documented Date Episodic/Chronic Acute cerebrovascular disease (2 sources) Cerebrovascular accident; Translations: [Cerebral infarction, unspecified] Chronic Acute myocardial infarction (20 sources) Myocardial infarction; Translations: [Non-ST elevation (NSTEMI) myocardial infarction] Onset: 10-17-2013 Resolved: 07-23-2014 01-28-2024 Chronic Coronary atherosclerosis and other heart disease (20 sources) Coronary atherosclerosis; Translations: [Atherosclerotic heart disease of hoh coronary artery without angina pectoris] Onset: 05-06-2023 Chronic Diabetes mellitus with complications (20 sources) Type 2 diabetes mellitus; Translations: [Type 2 diabetes mellitus with other diabetic neurological complication] Onset: 12-29-2007 02-15-2016 Chronic Diabetes mellitus without complication (20 sources) Diabetes mellitus; Translations: [Type 2 diabetes mellitus without complications] Onset: 05-28-2024 01-28-2024 Chronic Disorders of lipid metabolism (20 sources) Hyperlipidemia; Translations: [Hyperlipidemia, unspecified] Onset: 12-29-2007 07-11-2015 Chronic E Codes: Fall (4 sources) Falling injury; Translations: [Unspecified fall, initial encounter] 04-30-2025 Episodic Esophageal disorders (1 source) Gastro-esophageal reflux disease with esophagitis; Translations: [Gastroesophageal reflux disease with esophagitis without hemorrhage] 04-20-2025 Chronic Esophageal disorders (1 source) Esophageal disorders; Translations: [Gastroesophageal reflux disease with esophagitis without hemorrhage] Onset: 04-22-2025 Essential hypertension (20 sources) Essential hypertension; Translations: [Essential (primary) hypertension] Onset: 12-29-2007 01-03-2022 Chronic Fracture of upper limb (3 sources) Unspecified fracture of second metacarpal bone, right hand, initial encounter for closed fracture; Translations: [Fracture of second metacarpal bone of right hand] Onset: 05-07-2025 05-07-2025 Episodic Gastritis and duodenitis (2 sources) Gastroduodenitis; Translations: [Gastroduodenitis, unspecified, without bleeding] Onset: 04-22-2025 04-20-2025 Episodic Heart valve disorders (11 sources) Mitral valve regurgitation; Translations: [Nonrheumatic mitral (valve) insufficiency] Onset: 03-15-2025 09-14-2024 Chronic Immunizations and screening for infectious disease (1 source) Needs influenza immunization; Translations: [Encounter for immunization] Episodic Intracranial injury (4 sources) Injury of head; Translations: [Unspecified intracranial injury with loss of consciousness of 30 minutes or less, initial encounter] 04-30-2025 Episodic Mycoses (20 sources) Onychomycosis; Translations: [Tinea unguium] Onset: 12-29-2007 Resolved: 07-23-2014 Episodic Nonspecific chest pain (11 sources) Chest pain; Translations: [Chest pain, unspecified] 01-28-2024 Episodic Open wounds of head; neck; and trunk (4 sources) Scalp laceration; Translations: [Laceration without foreign body of scalp, initial encounter] 04-30-2025 Episodic Osteoarthritis (20 sources) Osteoarthritis of left knee joint; Translations: [Unilateral primary osteoarthritis, left knee] Onset: 02-21-2018 02-21-2018 Chronic Other aftercare (4 sources) Long-term current use of drug therapy; Translations: [FDC (current) use of antithrombotics/antip latelets] 04-30-2025 Episodic Other and unspecified benign neoplasm (3 sources) History of polyp of colon; Translations: [Personal history of colonic polyps] 04-07-2024 Episodic Other and unspecified benign neoplasm (1 source) Adenomatous polyp of colon ; Translations: [Benign neoplasm of colon, unspecified] 04-20-2025 Episodic Other and unspecified benign neoplasm (1 source) Benign neoplasm of colon, unspecified; Translations: [Adenomatous polyp of colon, unspecified part of colon] Onset: 04-22-2025 Episodic Other circulatory disease (11 sources) H/O: hypertension; Translations: [Personal history of other diseases of the circulatory system] 01-28-2024 Episodic Other circulatory disease (11 sources) H/O: heart disorder; Translations: [Personal history of other diseases of the circulatory system] 01-28-2024 Episodic Other circulatory disease (4 sources) Personal history of other diseases of the circulatory system; Translations: [Personal history of other diseases of circulatory system] Episodic Other circulatory disease (10 sources) Carotid bruit; Translations: [Other specified symptoms and signs involving the circulatory and respiratory systems] 09-14-2024 Episodic Other connective tissue disease (9 sources) Pain of toe of left foot; Translations: [Pain in left toe(s)] Episodic Other connective tissue disease (9 sources) Pain of toe of right foot; Translations: [Pain in right toe(s)] Episodic Other connective tissue disease (1 source) Pain in left toe(s); Translations: [Pain in toe of left foot] Onset: 02-23-2025 Episodic Other connective tissue disease (1 source) Pain in right toe(s); Translations: [Pain in toe of right foot] Onset: 02-23-2025 Episodic Other connective tissue disease (3 sources) Hand pain; Translations: [Pain in right hand] 05-05-2025 Episodic Other connective tissue disease (1 source) Pain in right hand; Translations: [Pain in right hand] Onset: 05-07-2025 Episodic Other injuries and conditions due to external causes (1 source) Unspecified injury of head, initial encounter; Translations: [Unspecified injury of head, initial encounter] Onset: 05-07-2025 Episodic Other lower respiratory disease (1 source) Imaging of lung abnormal ; Translations: [Other nonspecific abnormal finding of lung field] 02-07-2024 Episodic Other non-traumatic joint disorders (2 sources) Bilateral wrist pain; Translations: [Pain in right wrist] 2024 Episodic Other non-traumatic joint disorders (4 sources) Bilateral pain of joint of hands; Translations: [Pain in joints of right hand] Onset: 03-16-2025 03-16-2025 Episodic Other non-traumatic joint disorders (1 source) Pain in joints of right hand; Translations: [Arthralgia of both hands] Onset: 03-16-2025 Episodic Other non-traumatic joint disorders (1 source) Pain in joints of left hand; Translations: [Arthralgia of both hands] Onset: 03-16-2025 Episodic Other nutritional; endocrine; and metabolic disorders (11 sources) H/O: diabetes mellitus; Translations: [Personal history of other endocrine, nutritional and metabolic disease] 01-28-2024 Episodic Other nutritional; endocrine; and metabolic disorders (2 sources) Personal history of other endocrine, nutritional and metabolic disease; Translations: [Personal history of other endocrine, metabolic, and immunity disorders] Episodic Other screening for suspected conditions (not mental disorders or infectious disease) (20 sources) Patient encounter status; Translations: [Encounter for screening for other disorder] Onset: 04-29-2008 Resolved: 02-07-2024 Episodic Other skin disorders (5 sources) Keratosis; Translations: [Epidermal thickening, unspecified] Episodic Other skin disorders (1 source) Infection of toenail; Translations: [Ingrowing nail] 10-31-2023 Episodic Peripheral and visceral atherosclerosis (20 sources) Peripheral vascular disease, unspecified; Translations: [Peripheral vascular disease, unspecified] Onset: 08-05-2009 01-01-2014 Chronic Residual codes; unclassified (20 sources) Mixed sleep apnea; Translations: [Other sleep apnea] Onset: 11-09-2021 11-09-2021 Chronic Residual codes; unclassified (3 sources) Family history of ischemic heart disease; Translations: [Family history of ischemic heart disease and other diseases of the circulatory system] 09-16-2024 Episodic Retinal detachments; defects; vascular occlusion; and retinopathy (20 sources) Arterial retinal branch occlusion; Translations: [Retinal artery branch occlusion, unspecified eye] Onset: 06-11-2022 Resolved: 02-07-2024 Chronic Screening and history of mental health and substance abuse codes (2 sources) Encounter for screening for depression; Translations: [Encounter for screening examination for other mental health and behavioral disorders] Onset: 03-16-2025 Episodic Unclassified (1 source) Peripheral arterial disease 04-06-2025 Unclassified (1 source) History of colonic polyps; Translations: [History of colonic polyps] Onset: 03-18-2025 Viral infection (1 source) Disease caused by 2019-nCoV; Translations: [COVID-19] Episodic Past or Other Problems Problem Classification Problem Date Documented Da te Episodic/Chronic Allergic reactions (20 sources) Solar degeneration; Translations: [Other skin changes due to chronic exposure to nonionizing radiation] Onset: 11-05-2010 Resolved: 12-15-2012 12-18-2013 Episodic Cardiac dysrhythmias (6 sources) Sinus bradycardia; Translations: [Bradycardia, unspecified] Onset: 07-01-2024 05-28-2024 Episodic Coronary atherosclerosis and other heart disease (20 sources) Presence of aortocoronary bypass graft; Translations: [Personal history of surgery to heart and great vessels, presenting hazards to health] Onset: 01-29-2024 01-28-2024 Episodic Comment on above: 2.5 X 22 and 2.5 X 1 2 [place] LISANDRO to distal RCA (01/29/24); drug-eluting stent to the left main coronary artery. Deficiency and other anemia (20 sources) Anemia; Translations: [Anemia, unspecified] Onset: 10-25-2013 Resolved: 07-23-2014 10-23-2021 Episodic Deficiency and other anemia (1 source) Anemia, unspecified; Translations: [Anemia, unspecified type] Onset: 10-19-2024 Episodic Fluid and electrolyte disorders (20 sources) Hypervolemia; Translations: [Fluid overload, unspecified] Onset: 10-21-2013 Resolved: 10-23-2013 09-13-2024 Episodic Hyperplasia of prostate (20 sources) Benign prostatic hyperplasia; Translations: [Benign prostatic hyperplasia without lower urinary tract symptoms] Onset: 12-29-2007 Resolved: 02-21-2018 02-21-2018 Chronic Malaise and fatigue (1 source) Other fatigue; Translations: [Other fatigue] Onset: 05-28-2024 Episodic Other and unspecified benign neoplasm (20 sources) Benign neoplasm of colon; Translations: [Benign neoplasm of colon, unspecified] Onset: 07-29-2008 07-22-2009 Episodic Other and unspecified benign neoplasm (20 sources) Melanocytic nevus of trunk; Translations: [Melanocytic nevi of trunk] Onset: 11-05-2010 Resolved: 02-15-2016 02-15-2016 Episodic Other and unspecified benign neoplasm (20 sources) Senile angioma; Translations: [Hemangioma of skin and subcutaneous tissue] Onset: 11-05-2010 Resolved: 02-15-2016 12-15-2012 Episodic Other circulatory disease (20 sources) Low blood pressure; Translations: [Hypotension, unspecified] Onset: 10-20-2013 Resolved: 10-23-2013 Episodic Other circulatory disease (1 source) Other specified symptoms and signs involving the circulatory and respiratory systems; Translations: [Other specified symptoms and signs involving the circulatory and respiratory systems] Onset: 11-19-2024 Episodic Other lower respiratory disease (20 sources) Nodule of lung; Translations: [Solitary pulmonary nodule] Onset: 10-22-2013 Resolved: 07-23-2014 07-23-2014 Episodic Other lower respiratory disease (4 sources) Dyspnea; Translations: [Shortness of breath] Onset: 09-16-2024 09-16-2024 Episodic Other lower respiratory disease (1 source) Shortness of breath; Translations: [Shortness of breath] Onset: 09-16-2024 Episodic Other male genital disorders (20 sources) Secondary erectile dysfunction; Translations: [Male erectile dysfunction, unspecified] Onset: 12-29-2007 Resolved: 02-15-2016 02-15-2016 Chronic Other non-epithelial cancer of skin (20 sources) History of malignant neoplasm of skin; Translations: [Personal history of other malignant neoplasm of skin] Onset: 11-05-2010 Resolved: 12-15-2012 12-15-2012 Episodic Other nutritional; endocrine; and metabolic disorders (20 sources) Obese class I; Translations: [Obesity, unspecified] Onset: 08-06-2019 Resolved: 02-07-2024 08-06-2019 Chronic Other nutritional; endocrine; and metabolic disorders (20 sources) Obese class II; Translations: [Obesity, unspecified] Onset: 08-22-2018 Resolved: 02-07-2024 08-09-2023 Chronic Other nutritional; endocrine; and metabolic disorders (20 sources) Obesity; Translations: [Obesity, unspecified] Onset: 12-29-2007 Resolved: 02-15-2016 02-15-2016 Chronic Other nutritional; endocrine; and metabolic disorders (4 sources) Body mass index 25-29 - overweight; Translations: [Overweight] Onset: 02-07-2024 03-16-2025 Episodic Other skin disorders (20 sources) Inflamed seborrheic keratosis; Translations: [Inflamed seborrheic keratosis] Onset: 11-05-2010 Resolved: 12-15-2012 12-15-2012 Episodic Other skin disorders (20 sources) Actinic keratosis; Translations: [Actinic keratosis] Onset: 11-05-2010 Resolved: 01-01-2014 01-01-2014 Episodic Other skin disorders (20 sources) Solar lentigo; Translations: [Other melanin hyperpigmentation] Onset: 11-05-2010 Resolved: 02-15-2016 12-15-2012 Episodic Other skin disorders (20 sources) Seborrheic keratosis; Translations: [Other seborrheic keratosis] Onset: 11-05-2010 Resolved: 01-21-2015 12-15-2012 Episodic Other skin disorders (20 sources) Skin tag; Translations: [Other hypertrophic disorders of the skin] Onset: 11-05-2010 Resolved: 12-15-2012 12-15-2012 Episodic Other skin disorders (20 sources) Scar conditions and fibrosis of skin; Translations: [Scar conditions and fibrosis of skin] Onset: 11-05-2010 Resolved: 12-15-2012 12-15-2012 Episodic Phlebitis; thrombophlebitis and thromboembolism (20 sources) Deep venous thrombosis of lower extremity; Translations: [Acute embolism and thrombosis of unspecified deep veins of unspecified lower extremity] Onset: 11-16-2013 Resolved: 07-23-2014 07-23-2014 Episodic Pleurisy; pneumothorax; pulmonary collapse (20 sources) Atelectasis; Translations: [Atelectasis] Onset: 10-21-2013 Resolved: 07-23-2014 10-23-2021 Episodic Residual codes; unclassified (20 sources) Sleep apnea; Translations: [Sleep apnea, unspecified] Onset: 09-15-2021 Resolved: 02-07-2024 09-15-2021 Chronic Residual codes; unclassified (20 sources) Acute pain; Translations: [Pain, unspecified] Onset: 10-22-2013 Resolved: 01-01-2014 10-23-2021 Episodic Residual codes; unclassified (20 sources) Postoperative state; Translations: [Other specified postprocedural states] Onset: 11-16-2013 Resolved: 01-01-2014 01-01-2014 Episodic Residual codes; unclassified (2 sources) Family history of ischemic heart disease and other diseases of the circulatory system; Translations: [Family history of ischemic heart disease and other diseases of the circulatory system] Onset: 09-16-2024 Episodic Respiratory failure; insufficiency; arrest (adult) (20 sources) Ventilator finding; Translations: [Dependence on respirator [ventilator] status] Onset: 10-20-2013 Resolved: 10-22-2013 11-07-2021 Chronic Unclassified (20 sources) SUMMARY Onset: 10-17-2013 Resolved: 07-23-2014 10-23-2021 Unclassified (20 sources) DISPOSITION AND FOLLOW-UP Onset: 10-23-2013 Resolved: 01-01-2014 10-23-2021 Unclassified (1 source) Patient encounter status 04-14-2025 Results Test Name Value Interpretation Reference Range Facility Plastic Surgery Visit Report on 05-07-2025 [address] Report [facility] [address], [address] [place] [address] OFFICE VISIT Date of Service: 05/07/25 MR#: [id number] Acct: [id number] Name: MARIE HUTSON Rep #: [id number] : 1950 Provider: Dr. 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 Required: No Accompanied by: Self Is patient in pain?: No Allergies No Known Allergies Allergy (Verified 05/07/25 13:25) Medications ???Medication ???Instructions ???Recorded ???Confirmed ???Type multivitamin with folic acid 400 1 tab PO DAILY vitamin 04/18/16 History mcg tablet (Thera) amlodipine 10 mg tablet 10 mg PO DAILY 01/28/24 05/07/25 H istory clonidine HCl 0.2 mg tablet 0.2 mg PO BID 01/28/24 05/07/25 Hi story gabapentin 300 mg capsule 300 mg PO DAILY 01/28/24 05/07/25 History lisinopril 40 mg tablet 40 mg PO BID 01/28/24 05/07/25 His tory aspirin 81 mg tablet,delayed 81 mg PO BREAKFAST #30 tabs 05/07/25 Rx release clopidogrel 75 mg tablet 75 mg PO QDAY 05/28/24 05/07/25 Hi story metformin 500 mg tablet 1,000 mg PO BID diabetes 05/28/24 05/07/25 History nitroglycerin 0.3 mg sublingual 0.3 mg sublingual Q5M PRN angina 0 05/28/24 05/07/25 History tablet atorvastatin 40 mg tablet 40 mg PO QPM #90 tabs 09/14/2409/21 Rx metoprolol tartrate 25 mg tablet 12.5 mg PO BID 09/14/24 05/07/25 H istory hydralazine 50 mg tablet 50 mg PO TID #270 tabs 12/04/24 Rx omeprazole 40 mg capsule,delayed 40 mg PO DAILY 04/29/25 05/07/25 H istory release Have you fallen in the past year?: Yes Nurse's Note: consult 2nd metacarpal fracture of right hand. denies pain at this time. injury 04/29/25. [facility] Medical History CAD (coronary artery disease) Diabetes Dyslipidemia Hypertension Type 2 diabetes mellitus without complications Peripheral vascular disease, unspecified Essential (primary) hypertension Atherosclerotic heart disease of hoh coronary artery without angina pectoris Diabetes mellitus, type 2 Former tobacco use Obesity Chest pain NSTEMI (non-ST elevated myocardial infarction) Branch retinal artery occlusion Hyperlipemia Surgical History H/O coronary angioplasty Stented coronary artery (01/29/24) History of coronary artery bypass graft x 3 H/O angioplasty Failed CABG (coronary artery bypass graft) Family History Mother Cancer Father CVA (cerebral vascular accident) Social History household members: spouse Smoking Status: Former smoker alcohol intake: current alcohol intake frequency: a few times a month substance use type: does not use HPI R HAND Details: The patient is a 75-year-old male presenting with a fracture of the right index finger metacarpal. The injury occurred on 29 April 2025 when the patient fell asleep on a stool in his garage, resulting in a fall that caused the fracture. The patient reports limited ability to make a fist due to swelling and a palpable deformity at the base of the index finger metacarpal. The patient has a history of open heart surgery and stent placement, with the most recent stent placement occurring in August of the previous year. He was a smoker until 2002 and is currently on Plavix due to his cardiac history. ROS: - Musculoskeletal: Reports pain at the base of the index finger, limited ability to make a fist due to swelling - Cardiovascular: Denies recent chest pain or discomfort Patient is right-handed Attestation: Documentation on this patient encounter was supported using ambient scribe technology/ voice AI technology. The patient consented to recording for the purpose of documenting the encounter. Provider reviewed content of the generated note prior to signature. ROS General General: Yes good health; No fatigue HENMT HENMT: No rhinitis, sore throat/mouth sore, contacts or glaucoma Endo Endocrine: No thyroid disease, polydipsia, heat intolerance, cold intolerance or hepatitis Skin Skin: Yes bruising; No Bleeding or changing moles Musc Musculoskeletal: Yes joint pain and joint stiffness; No muscle weakness, back pain or osteoarthritis Neuro Neurological: No headache(s) and No ligh (more content not included)... Normal [facility] Hand Min 3 Viewson 5 Hand Min 3 Views [facility] Imaging Services [address] [place], [place] [address] Hand Min 3 Views MR#: [id number] Acct: [id number] Name: MARIE HUTSON Rep #: [id number] : 1950 M 75 From: Arslan beasley MD PCP: Dr. 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 Diffuse soft tissue swelling is noted. No other obvious acute fracture dislocation. Rather preserved with interphalangeal joint spaces. 1st carpometacarpal joint space narrowing is noted. RAD/Hand Min 3 Views IMPRESSION: Acute comminuted fracture is seen at the base of the 2nd metacarpal bone. Follow-up is advised Reading [facility] CC: TANIYA Naranjo; Dr. Sher Jules MD Strapping Machine Tender: Signed Normal [facility] Orthopedic Visit Reporton Orthopedic Visit Report [facility] [address] [place] [address] [place] [address] OFFICE VISIT Date of Service: 05/06/25 MR#: [id number] Acct: [id number] Name: MARIE HUTSON Rep #: [id number] : 1950 Provider: TANIYA stock Age/Sex: 75/M [place] [facility] [place]: Signed Intake Vital Signs 04/29/25 22:27 05/06/25 14:05 Height 5 ft 10 in 5 ft 10 in Weight: 198 lb BMI 28.4 Intake Visit Reasons: RIGHT HAND Chief Complaint: Right Hand Accompanied by: Is patient in pain?: Yes Pain scale (1-10): 6 Allergies No Known Allergies Allergy (Verified 05/06/25 14:05) Medications ???Medication ???Instructions ???Recorded ???Confirmed ???Type multivitamin with folic acid 400 1 tab PO DAILY vitamin 04/18/16 History mcg tablet (Thera) amlodipine 10 mg tablet 10 mg PO DAILY 01/28/24 05/06/25 H istory clonidine HCl 0.2 mg tablet 0.2 mg PO BID 01/28/24 05/06/25 Hi story gabapentin 300 mg capsule 300 mg PO DAILY 01/28/24 05/06/25 History lisinopril 40 mg tablet 40 mg PO BID 01/28/24 05/06/25 His tory aspirin 81 mg tablet,delayed 81 mg PO BREAKFAST #30 tabs 05/06/25 Rx release clopidogrel 75 mg tablet 75 mg PO QDAY 05/28/24 05/06/25 Hi story metformin 500 mg tablet 1,000 mg PO BID diabetes 05/28/24 05/06/25 History nitroglycerin 0.3 mg sublingual 0.3 mg sublingual Q5M PRN angina 0 05/28/24 05/06/25 History tablet atorvastatin 40 mg tablet 40 mg PO QPM #90 tabs 09/14/2408/21 Rx metoprolol tartrate 25 mg tablet 12.5 mg PO BID 09/14/24 05/06/25 H istory hydralazine 50 mg tablet 50 mg PO TID #270 tabs 12/04/24 Rx omeprazole 40 mg capsule,delayed 40 mg PO DAILY 04/29/25 05/06/25 H istory release Have you fallen in the past year?: Yes PFSH Medical History CAD (coronary artery disease) Diabetes Dyslipidemia Hypertension Type 2 diabetes mellitus without complications Peripheral vascular disease, unspecified Essential (primary) hypertension Atherosclerotic heart disease of hoh coronary artery without angina pectoris Diabetes mellitus, type 2 Former tobacco use Obesity Chest pain NSTEMI (non-ST elevated myocardial infarction) Branch retinal artery occlusion Hyperlipemia Surgical History H/O coronary angioplasty Stented coronary artery (01/29/24) History of coronary artery bypass graft x 3 H/O angioplasty Failed CABG (coronary artery bypass graft) Family History Mother Cancer Father CVA (cerebral vascular accident) Social History household members: spouse Smoking Status: Former smoker alcohol intake: current alcohol intake frequency: a few times a month substance use type: does not use HPI RIGHT HAND Details: This documentation accurately reflects the service provided and the decisions made by me, Jordana Naranjo CDL BULK DRIVER-C 05/06/25 1402. Part of today???s visit was documented by Jesusita Canseco ATC, acting as scribe. MARIE HUTSON is a 75 year old M here today for right hand pain. Patient states this happened a week ago on 04/29/2025 and he states he fell. He states he is not sure how he landed on the hand. He describes the pain over the back of the hand. He was seen in [facility] ER after the fall because he needed stitches in the head but the hand was not bothering him then so he didn't have it checked. He states the hand did not start bothering him until the next day when he started to notice some swelling and bruising. Patient is LHD. 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 He denies any injury or prior surgery to the right hand. Patient states he takes 2 Tylenol at night before he goes to bed and did this prior to the fall. Agree with above. Marie is a pleasant 75-year-old gentleman with injury from 04/29/2025 as noted above. Patient states he fell asleep on a stool in his barn and fell off striking his head and hand. Patient did present to the ED for head injury, received stitches. Patient was also evaluated secondary to blood thinner use with a CAT scan. Patient did not get evaluated at that time for the right hand pain. Symptoms remain troublesome with pain, swelling, discoloration and difficulty using it. Takes Tylenol as needed at night which does seem to help a little bit. No prior injuries or surgeries to this hand. ROS Const All systems reviewed are unremarkable except as noted in H and other (A O x 3, no apparent distress. No recent illness.) ENT Denies dizziness Card Denies chest pain, Denies dyspnea, Denies edema and Reports other (No palpitations) Resp Denies cough, De (more content not included)... Normal [facility] Emergency Department Summary on 04-30-2025 Emergency Department Summary [facility] Medical Records Department [address] [place] [address] Emergency Department Summary 04/30/25 MR#: [id number] Acct: [id number] Name: MARIE HUTSON Rep #: [id number] : 1950 75 From: Rohan Wallace MD PCP: Dr. Sher Jules MD Status:REG ER Location: ED HPI History of Present Illness Chief Complaint: Head Injury History of Present Illness Detail of Chief Complaint: Patient fell approximately 3 to 3-1/2 feet from stool striking his head Informant: patient and spouse/S.O. Onset/Context/Timing Onset: Today and Hours Mechanism/Context: Blunt Injury and Fall Quality of Pain: - (Left parietal area) Location: Left parietal Current Severity: Mild Maximum Severity: Moderate Worsened by: Palpation Relieved by: Nothing Associated Symptoms Associated Symptoms: Positive for Loss of consciousness and Amnesia; Negative for Parasthesias, Weakness, Loss of function or Inability to ambulate Length of loss of consciousness: Unknown he apparently was asleep on the stool when he fell Narrative Narrative: Patient is a 75-year-old male. He has history coronary disease with several stents. He is presently on Plavix. He also has history of bypass surgery x 3 vessels. He has history hypertension, hyperlipidemia, essential hypertension. He was sitting on stool proximately 3-3 and half feet from the ground. He fell asleep. He landed on his left side. He sustained a laceration to the left frontal parietal area. The laceration is 8.7 cm. He does complain of slight headache. Eyes double vision blurred vision or photophobia. Denies decreased hearing olivera ears. Denies neck pain. Denies paresthesia, anesthesia or motor weakness upper or lower extremity. He denies chest pain or shortness of breath. He denies nausea or vomiting. Tetanus Immunization: Unknown Prior similar symptoms: No Recent Illness/Hospitalization : No [facility] Medical History Atherosclerotic heart disease of hoh coronary artery without angina pectoris Branch retinal artery occlusion CAD (coronary artery disease) Chest pain Diabetes Diabetes mellitus, type 2 Dyslipidemia Essential (primary) hypertension Former tobacco use Hyperlipemia Hypertension NSTEMI (non-ST elevated myocardial infarction) Obesity Peripheral vascular disease, unspecified Type 2 diabetes mellitus without complications Home Medications ???Medication ???Instructions ???Recorded ???Last Taken ???Type multivitamin with folic acid 400 1 tab PO DAILY vitamin 04/18/16 History mcg tablet (Thera) amlodipine 10 mg tablet 10 mg PO DAILY 01/28/24 Unknown Hi story clonidine HCl 0.2 mg tablet 0.2 mg PO BID 01/28/24 Unknown His tory gabapentin 300 mg capsule 300 mg PO DAILY 01/28/24 Unknown H istory lisinopril 40 mg tablet 40 mg PO BID 01/28/24 Unknown Hist ory aspirin 81 mg tablet,delayed 81 mg PO BREAKFAST #30 tabs Unknown Rx release clopidogrel 75 mg tablet 75 mg PO QDAY 05/28/24 Unknown His tory metformin 500 mg tablet 1,000 mg PO BID diabetes 05/28/24 Unknown History nitroglycerin 0.3 mg sublingual 0.3 mg sublingual Q5M PRN angina 0 05/28/24 Unknown History tablet atorvastatin 40 mg tablet 40 mg PO QPM #90 tabs 09/14/24 Unk nown Rx metoprolol tartrate 25 mg tablet 12.5 mg PO BID 09/14/24 Unknown Hi story hydralazine 50 mg tablet 50 mg PO TID #270 tabs 12/04/24 Un known Rx omeprazole 40 mg capsule,delayed 40 mg PO DAILY 04/29/25 Unknown Hi story release Allergy/AdvReac Type Severity Reaction Status Date / Time No Known Allergies Allergy Verified 04/29/25 22:27 Family History Mother Cancer Father CVA (cerebral vascular accident) Surgical History H/O coronary angioplasty Stented coronary artery (01/29/24) History of coronary artery bypass graft x 3 H/O angioplasty Failed CABG (coronary artery bypass graft) Social History household members: spouse Smoking Status: Former smoker alcohol intake: current alcohol intake frequency: a few times a month substance use type: does not use ROS ROS ED Constitutional Constitutional ED: Denies chills or fever(s) Eyes Eyes: Denies blurry vision or change in vision ENT ENT ED: Denies ear pain, rhinorrhea or sore throat Cardiovascular Cardiovascular: Denies chest pain, palpitations, paroxysmal nocturnal dyspnea or racing heartbeat Respiratory/Chest Respiratory/Chest: Denies cough, dyspnea, dyspnea on exertion or paroxysmal nocturnal dyspnea Gastrointestinal Gastrointestinal: Denies abdominal pain, nausea or vomiting Genitourinary Genitourinary ED: Denies dysuria, (more content not included)... Normal [facility] Brain/Head without Contrasto n 04-29-2025 Brain/Head without Contrast [facility] Imaging Services [address] [place] [address] Brain/Head without Contrast MR#: [id number] Acct: [id number] Name: MARIE HUTSON Rep #: [id number] : 1950 M 75 From: Kirill Sifuentes MD PCP: Dr. Sher Jules MD Status: REG ER Study: Brain/Head without Contrast Date of Exam: 01/19 Exam# [id number] Ordering Dr: Rohan Wallace MD PROCEDURE: BRAIN/HEAD WITHOUT CONTRAST 04/29/2025 REASON FOR EXAM: CLOSED HEAD INJURY ON ANTITHROMBOTIC TECHNIQUE: BRAIN/HEAD WITHOUT CONTRAST Coronal and Sagittal reconstruction series were provided. One or more dose reduction techniques were used (e.g., Automated exposure control, adjustment of the mA and/or kV according to patient size, use of iterative reconstruction technique. RADIATION DOSE SUMMARY: CTDlvol: 45 mGy DLP: 847 mGycm COMPARISON: MRI 05/30/2022 FINDINGS: Extensive arterial calcifications. Mild atrophy. No acute abnormal brain densities. No intracranial hemorrhage. Hydrocephalus or midline shift. There is left anterolateral scalp laceration and hematoma. No skull fracture. Unremarkable orbits. CT/Brain/Head without Contrast IMPRESSION: No acute intracranial finding Reading Location: [place] [address] CC: Dr. Rohan Wallace MD; Dr. Sehr Jules MD Strapping Machine Tender: Signed Normal [facility] CNOVon 04-22-2025 CNOV Office Visit (GENSWS ) MARIE HUTSON ([id number]) 1950 M Date Time Provider Department 04/22/25 10:30 AM ELVIE MONTERROSO During your visit today, we recorded the following information about you: Elvie Monterroso APRN.CNP 04/22/2025 10:56 AM Signed FOLLOW UP VISIT - ENDOSCOPY Marie Hutson 1950 [id number] REFERRING PHYSICIAN: Nikos Rivera [address] [facility] [address] Marie Hutson is a patient I am following for screen for colon cancer-hx of polyps AND anemia. Dr. Rivera performed upper AND lower endoscopy on 04/14/25. The patient was found to have EGD Impression: - Normal examined jejunum. - Duodenitis, characterized by congestion (edema),erosions and deep ulcerations. - Gastritis, characterized by adherent blood, erosions, erythema and friability. Biopsied. - Moderate reflux esophagitis with no bleeding. Biopsied. COLONOSCOPY Impression: - Two small (4-6 mm) polyps in the cecum, removed with a cold biopsy forceps. Resected and retrieved. - Diverticulosis in the sigmoid colon. - The examination was otherwise normal on direct and retroflexion views. Pathology demonstrated: FINAL DIAGNOSIS A. Stomach, antrum, biopsy: - Reactive gastropathy. - No morphologic evidence of Helicobacter pylori microorganisms. B. Esophagus, distal, biopsy: - Slightly hyperplastic squamous epithelium and cardia type mucosa, negative for intestinal metaplasia or dysplasia. C. Colon, cecum, polypectomy x 2: - Tubular adenoma. - Polypoid fragment of colonic mucosa, negative for dysplasia. The patient notes no complaints since the procedure. -Dr. Rivera started on omeprazole 40mg -notes his bowels are moving a little more frequently. VITALS: There were no vitals taken for this visit. General: patient is alert, cooperative, pleasant and in no acute distress On examination, the abdomen is benign. Assessment ASSESSMENT/PLAN: 1. Gastritis and duodenitis - ICD9: 535.50, ICD10: K29.90 (primary diagnosis) - Continue Omeprazole 40mg for 3 months 2. Gastroesophageal reflux disease with esophagitis without hemorrhage - ICD9: 530.81, 530.10, ICD10: K21.00 - Discussed lifestyle modifications including losing weight, limiting caffeine, no meals three hours before sleep, and head of bed elevation - Continue treatment with Prilosec 40 mg QD 3. Adenomatous polyp of colon, unspecified part of colon - ICD9: 211.3, ICD10: D12.6 The operative findings and pathology report were reviewed with the patient, and the patient has had the opportunity to ask questions and have questions answered. If the patient notes any problems or changes in bowel function, the patient should contact me immediately. Otherwise I recommend follow up endoscopy in 5 years. HM updated. Discussed treatment plan and patient voices understanding. Patient's questions answered appropriately. Medications and potential side effects were discussed and patient voices understanding. Return to the office as scheduled or as needed for worsening/no improvement. ____ Elvie Monterroso APRN.SLOT SUPERVISOR Referring Provider: NIKOS RIVERA [[id number]] Allergies As of Date: 04/22/2025 (No Known Allergies) Date Reviewed: 04/22/2025 Reviewed by: Elvie Monterroso APRN.SLOT SUPERVISOR - Fully Assessed Reason for Visit: Follow Up [171] Cmt: Follow up EGD and colonoscopy Primary Visit Diagnosis:Gastritis and duodenitis [K29.90] Other Visit Diagnoses:Gastroesophag eal reflux disease with esophagitis without hemorrhage [K21.00] Adenomatous polyp of colon, unspecified part of colon [D12.6] Order(s):omeprazole (PRILOSEC) 40 mg capsuleTake 1 capsule by mouth once daily.Disp: 30 capsuleRfl: 3 Prescriptions as of 04/22/2025 - omeprazole (PRILOSEC) 40 mg capsule Take 1 capsule by mouth once daily. - amLODIPine (NORVASC) 10 mg tablet Take 1 tablet by mouth once daily. - cloNIDine HCl (CATAPRES) 0.2 mg tablet Take 1 tablet by mouth two times a day. - lisinopril (ZESTRIL) 40 mg tablet Take 1 tablet by mouth two times a day. - metoprolol tartrate, short acting, (LOPRESSOR) 25 mg tablet Take 0.5 tablets by mouth every 12 hours. - metFORMIN (GLUCOPHAGE) 500 mg tablet Take 2 tablets by mouth two times a day with meals. - clopidogrel (PLAVIX) 75 mg tablet Take 1 tablet by mouth once daily. - gabapentin (NEURONTIN) 300 mg capsule Take 1 capsule by mouth daily at bedtime for 180 days. Patient should start on December 26, 2024. - hydrALAZINE (APRESOLINE) 50 mg tablet Take 1 tablet by mouth three times a day. - atorvastatin (LIPITOR) 40 mg tablet Take 1 tablet by mouth daily at bedtime. For cholesterol. - nitroglycerin sublingual (NITROQUICK) 0.3 mg SL tablet Dissolve 1 tablet under the tongue every 5 minutes as needed for chest pain. - aspirin, enteric coated (ASPIRIN, ENTERIC COATED) 81 mg EC tablet (more content not included)... Normal [facility] [facility] [id number] 04-14-2025 [id number] HNO ID: [id number] Author: NURIS MEEK RN Service: ? Author Type: Registered Nurse Type: [id number] Filed: 04/14/2025 09:21 Note Text: The patient received a copy of Colonoscopy and EGD discharge instructions that contain information for how to contact the physician who performed the procedure and when to seek medical care. Normal [facility] [facility] Colonoscopyon 04-14-2025 Colonoscopy [facility] Gastrointestinal Endoscopy Patient Name: Marie Hutson Procedure Date: 04/14/2025 8:11 AM Date of : 1950 Admit Type: Outpatient Age: 75 Gender: Male Note Status: Finalized Procedure: Colonoscopy Indications: Iron deficiency anemia Providers: Nikos Rivera MD Patient Profile: This is a 75 year old male. Refer to note in patient chart for documentation of history and physical. Last Colonoscopy: 5 years ago. Referring Physician: Elvie Monterroso (Referring ) Medicines: See the other procedure note for documentation of the administered medications Complications: No immediate complications. Requesting Provider: Procedure: Pre-Anesthesia Assessment: - Prior to the procedure, a History and Physical was performed, and patient medications and allergies were reviewed. The patient is competent. The risks and benefits of the procedure and the sedation options and risks were discussed with the patient. All questions were answered and informed consent was obtained. Patient identification and proposed procedure were verified by the physician and the nurse in the procedure room. Mental Status Examination: alert and oriented. Airway Examination: normal oropharyngeal airway and neck mobility. Respiratory Examination: clear to auscultation. CV Examination: normal. Prophylactic Antibiotics: The patient does not require prophylactic antibiotics. Prior Anticoagulants: The patient has taken Plavix (clopidogrel), last dose was 1 day prior to procedure. ASA Grade Assessment: III - A patient with severe systemic disease. After reviewing the risks and benefits, the patient was deemed in satisfactory condition to undergo the procedure. The anesthesia plan was to use moderate sedation / analgesia (conscious sedation). Immediately prior to administration of medications, the patient was re-assessed for adequacy to receive sedatives. The heart rate, respiratory rate, oxygen saturations, blood pressure, adequacy of pulmonary ventilation, and response to care were monitored throughout the procedure. The physical status of the patient was re-assessed after the procedure. After I obtained informed consent, the scope was passed under direct vision. Throughout the procedure, the patient's blood pressure, pulse, and oxygen saturations were monitored continuously. The Colonoscope was introduced through the anus and advanced to the cecum, identified by the appendiceal orifice, ileocecal valve and palpation. The colonoscopy was performed without difficulty. The patient tolerated the procedure well. The quality of the bowel preparation was good. The ileocecal valve, appendiceal orifice, and rectum were photographed. Moderate Sedation: Moderate (conscious) sedation was administered by the nurse and supervised by the endoscopist. The patient's oxygen saturation, heart rate, blood pressure and response to care were monitored. Total physician intraservice time was 34 minutes. The administration of moderate sedation was initiated at 08:18. Findings: The perianal and digital rectal examinations were normal. Two sessile polyps were found in the cecum. The polyps were small (4-6 mm) in size. These polyps were removed with a cold biopsy forceps. Resection and retrieval were complete. Many small-mouthed diverticula were found in the sigmoid colon. The exam was otherwise without abnormality on direct and retroflexion views. Impression: - Two small (4-6 mm) polyps in the cecum, removed with a cold biopsy forceps. Resected and retrieved. - Diverticulosis in the sigmoid colon. - The examination was otherwise normal on direct and retroflexion views. Recommendation: - Discharge patient to home. - Continue present medications. - Resume Plavix (clopidogrel) today at prior dose. - Patient has a contact number available for emergencies. The signs and symptoms of potential delayed complications were discussed with the patient. Return to normal activities tomorrow. Written discharge instructions were provided to the patient. - Resume previous diet. - Repeat colonoscopy is recommended. The colonoscopy date will be determined based on pathology results from today's exam and current guidelines. Procedure Code(s): --- Professional --- 81433, Colonoscopy, flexible; with biopsy, single or multiple G0500, Moderate sedation services provided by the same physician or other qualified health career guidance counselor performing a gastrointestinal endoscopic service that sedation supports, requiring the presence of an independent trained observer to assist in the monitoring of the patient's level of consciousness and physiological status; initial 15 minutes of intra-service time; patient age 5 years or older (additional time may be reported with 18[address], as appropriate) [address]92, Moderate sedation; each additional 15 minutes intraservice ti (more content not included)... Normal [facility] Colonoscopy Study observatio non 04-14-2025 [facility] Gastrointestinal Endoscopy Patient Name: Marie Hutson Procedure Date: 04/14/2025 8:11 AM Date of : 1950 Admit Type: Outpatient Age: 75 Gender: Male Note Status: Finalized Procedure: Colonoscopy Indications: Iron deficiency anemia Providers: Nikos Rivera MD Patient Profile: This is a 75 year old male. Refer to note in patient chart for documentation of history and physical. Last Colonoscopy: 5 years ago. Referring Physician: Elvie Monterroso (Referring MD) Medicines: See the other procedure note for documentation of the administered medications Complications: No immediate complications. Requesting Provider: Procedure: Pre-Anesthesia Assessment: - Prior to the procedure, a History and Physical was performed, and patient medications and allergies were reviewed. The patient is competent. The risks and benefits of the procedure and the sedation options and risks were discussed with the patient. All questions were answered and informed consent was obtained. Patient identification and proposed procedure were verified by the physician and the nurse in the procedure room. Mental Status Examination: alert and oriented. Airway Examination: normal oropharyngeal airway and neck mobility. Respiratory Examination: clear to auscultation. CV Examination: normal. Prophylactic Antibiotics: The patient does not require prophylactic antibiotics. Prior Anticoagulants: The patient has taken Plavix (clopidogrel), last dose was 1 day prior to procedure. ASA Grade Assessment: III - A patient with severe systemic disease. After reviewing the risks and benefits, the patient was deemed in satisfactory condition to undergo the procedure. The anesthesia plan was to use moderate sedation / analgesia (conscious sedation). Immediately prior to administration of medications, the patient was re-assessed for adequacy to receive sedatives. The heart rate, respiratory rate, oxygen saturations, blood pressure, adequacy of pulmonary ventilation, and response to care were monitored throughout the procedure. The physical status of the patient was re-assessed after the procedure. After I obtained informed consent, the scope was passed under direct vision. Throughout the procedure, the patient's blood pressure, pulse, and oxygen saturations were monitored continuously. The Colonoscope was introduced through the anus and advanced to the cecum, identified by the appendiceal orifice, ileocecal valve and palpation. The colonoscopy was performed without difficulty. The patient tolerated the procedure well. The quality of the bowel preparation was good. The ileocecal valve, appendiceal orifice, and rectum were photographed. Moderate Sedation: Moderate (conscious) sedation was administered by the nurse and supervised by the endoscopist. The patient's oxygen saturation, heart rate, blood pressure and response to care were monitored. Total physician intraservice time was 34 minutes. The administration of moderate sedation was initiated at 08:18. Findings: The perianal and digital rectal examinations were normal. Two sessile polyps were found in the cecum. The polyps were small (4-6 mm) in size. These polyps were removed with a cold biopsy forceps. Resection and retrieval were complete. Many small-mouthed diverticula were found in the sigmoid colon. The exam was otherwise without abnormality on direct and retroflexion views. Impression: - Two small (4-6 mm) polyps in the cecum, removed with a cold biopsy forceps. Resected and retrieved. - Diverticulosis in the sigmoid colon. - The examination was otherwise normal on direct and retroflexion views. Recommendation: - Discharge patient to (more content not included)... 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 Refer to note in patient chart for documentation of history and physical. Patient has symptoms. Referring Physician: Elvie Monterroso (Referring MD) Medicines: Midazolam 6 mg IV, Fentanyl 100 micrograms IV, Diphenhydramine 50 mg IV Complications: No immediate complications. Requesting Provider: Procedure: Pre-Anesthesia Assessment: - Prior to the procedure, a History and Physical was performed, and patient medications and allergies were reviewed. The patient is competent. The risks and benefits of the procedure and the sedation options and risks were discussed with the patient. All questions were answered and informed consent was obtained. Patient identification and proposed procedure were verified by the physician and the nurse in the procedure room. Mental Status Examination: alert and oriented. Respiratory Examination: clear to auscultation. Prophylactic Antibiotics: The patient does not require prophylactic antibiotics. Prior Anticoagulants: The patient has taken Plavix (clopidogrel), last dose was 1 day prior to procedure. ASA Grade Assessment: III - A patient with severe systemic disease. After reviewing the risks and benefits, the patient was deemed in satisfactory condition to undergo the procedure. The anesthesia plan was to use moderate sedation / analgesia (conscious sedation). Immediately prior to administration of medications, the patient was re-assessed for adequacy to receive sedatives. The heart rate, respiratory rate, oxygen saturations, blood pressure, adequacy of pulmonary ventilation, and response to care were monitored throughout the procedure. The physical status of the patient was re-assessed after the procedure. - Prior to the procedure, a History and Physical was performed, and patient medications and allergies were reviewed. The patient's tolerance of previous anesthesia was also reviewed. The risks and benefits of the procedure and the sedation options and risks were discussed with the patient. All questions were answered, and informed consent was obtained. Prior Anticoagulants: The patient has taken Plavix (clopidogrel), last dose was 1 day prior to procedure. ASA Grade Assessment: III - A patient with severe systemic disease. After reviewing the risks and benefits, the patient was deemed in satisfactory condition to undergo the procedure. After obtaining informed consent, the endoscope was passed under direct vision. Throughout the procedure, the patient's blood pressure, pulse, and oxygen saturations were monitored continuously. The Endosonoscope was introduced through the mouth, and advanced to the jejunum. The upper GI endoscopy was accomplished without difficulty. The patient tolerated the procedure well. Moderate Sedation: Moderate (conscious) sedation was personally administered by the endoscopist. The following parameters were monitored: oxygen saturation, heart rate, blood pressure, and response to care. Total physician intraservice time was 34 minutes. The administration of moderate sedation was initiated at 08:18. Findings: The examined jejunum was normal. Localized moderate inflammation characterized by congestion (edema), erosions and deep ulcerations was found in the duodenal bulb. Localized moderate inflammation characteri (more content not included)... PROVATION [facility] [place] GLUCOSE, BLOOD (POC)on 04-14 Glucose [Mass/Vol] 116 mg/dL Abnormal 74 - 99 mg/dL [facility] Comment on above: Location:[facility], [address] [facility] [place], [place], [place], [address] The Accu-Chek Inform II glucose meter has not been approved for testing on patients receiving intensive medical intervention or therapy and results from this point of care glucose test should not be used for patient management decisions in these cases. Inaccurate results may also occur from other interfering factors, such as N-acetylcysteine (blood concentrations of greater than 5mg/dL), galactose, extremes of hematocrit (<10 or >65), or high doses of ascorbic acid (vitamin C) greater than 3mg/dL. Consider alternate testing mechanisms (e.g. core lab, blood gas instrument) in the above situations. Interpretation and review of laboratory results Abnormal [facility] HISTORY PHYSICALon HISTORY PHYSICAL HNO ID: [id number] Author: NIKOS RIVERA MD Service: General Surgery Author Type: Physician Type: H&P Filed: 04/14/2025 07:29 Note Text: HISTORY AND PHYSICAL Marie Hutson : 1950 REFERRING PHYSICIAN: Barb Suggs [address] [id number] CHIEF COMPLAINT: Patient presents with: Consult: For colonoscopy. Denies symptoms HPI: Marie is a 75 year old male referred for endoscopy. Marie notes anemia. Last HANDH 10.6 AND 29.8 (03/15/25). Marie denies abdominal pain. Marie denies diarrhea. Marie denies constipation. Marie denies a change in bowel habits. Marie denies melena. Marie denies bright red blood per rectum. Marie denies hemorrhoids. Marie denies family history of colon issues. Marie denies heartburn. Marie denies dysphagia. Marie denies a history of ulcers/ peptic ulcer disease. Marie follows with [facility] for hx of CABG x 3 (2012), CAD with 2 stents in 09/2024. On plavix. Last OV 01/2025. He denies CP, SOB, dizziness, palpitations, syncope, edema, recent hospitalizations Other medical history is significant for T2DM and osteoarthritis. Marie has undergone prior endoscopy. Last colonoscopy was 11/[address] Rivera at [facility]. Sedation:Midazolam 5 mg IV, Fentanyl 100 micrograms IV Impression: - One 8 mm polyp in the cecum, removed with a hot snare. Resected and retrieved. - The examination was otherwise normal. - The distal rectum and anal verge are normal on retroflexion view. - Diverticulosis in the sigmoid colon. CONVERTED FINAL DIAGNOSIS Colon, cecum, polypectomy (A) - Tubular adenoma. DTP/dcr 12/03/2018 CURRENT MEDICATIONS Current Outpatient Medications Medication Sig amLODIPine (NORVASC) 10 mg tablet Take 1 tablet by mouth once daily. cloNIDine HCl (CATAPRES) 0.2 mg tablet Take 1 tablet by mouth two times a day. lisinopril (ZESTRIL) 40 mg tablet Take 1 tablet by mouth two times a day. metoprolol tartrate, short acting, (LOPRESSOR) 25 mg tablet Take 0.5 tablets by mouth every 12 hours. metFORMIN (GLUCOPHAGE) 500 mg tablet Take 2 tablets by mouth two times a day with meals. clopidogrel (PLAVIX) 75 mg tablet Take 1 tablet by mouth once daily. gabapentin (NEURONTIN) 300 mg capsule Take 1 capsule by mouth daily at bedtime for 180 days. Patient should start on December 26, 2024. hydrALAZINE (APRESOLINE) 50 mg tablet Take 1 tablet by mouth three times a day. atorvastatin (LIPITOR) 40 mg tablet Take 1 tablet by mouth daily at bedtime. For cholesterol. nitroglycerin sublingual (NITROQUICK) 0.3 mg SL tablet Dissolve 1 tablet under the tongue every 5 minutes as needed for chest pain. aspirin, enteric coated (ASPIRIN, ENTERIC COATED) 81 mg EC tablet Take 1 tablet by mouth once daily. therapeutic multivitamin tablet Take 1 tablet by mouth daily with breakfast. blood sugar diagnostic (ONE TOUCH ULTRA TEST) test strip Use as instructed blood sugar diagnostic (ONE TOUCH ULTRA TEST) test strip TEST BLOOD SUGARS ONCE DAILY lancets(ONE TOUCH ULTRASOFT LANCETS) Test blood sugar once daily. peg 3350-Electrolytes (GOLYTELY) 236-22.74-6.74 -5.86 gram suspension Take 4,000 mL by mouth one time only for 1 dose. Refer to printed prep instructions from your provider. No current facility-administered medications for this visit. ALLERGIES: Patient has no known allergies. PAST MEDICAL HISTORY PAST MEDICAL HISTORY Diagnosis Date Anemia, unspecified type Atherosclerosis of hoh arteries of the extremities with intermittent claudication 09/07/2010 BENIGN NEOPLASM LG BOWEL 07/29/2008 Tubular adenoma. 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 Coronary artery disease Dermatophytosis of nail 12/29/2007 Diabetic peripheral neuropathy (HCC) 05/17/2014 Diabetic polyneuropathy associated with type 2 diabetes mellitus (HCC) DVT of leg (deep venous thrombosis) (HCC) 11/16/2013 post-op CABG, rx with Xarelto Essential hypertension Hypertrophy of prostate without urinary obstruction and other lower urinary tract symptoms (LUTS) 12/29/2007 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/29/2007 Non-ST elevation myocardial infarction (NSTEMI) 10/17/2013 Non-STEMI (non-ST elevated myocardial infarction) (HCC) 01/30/2024 LISANDRO to distal RCA Nonspecific abnormal results of liver function study 04/29/2008 Obesity, unspecified 12/29/2007 Onychomycosis Other and unspecified hyperlipidemia PAD (peripheral artery disease) 08/05/2009 Personal history of other malignant neoplasm of skin 11/05/2010 skin cancer Postoperative anemia 10/25/2013 Transfused on 10/25 1 U PRBC. HANDH 9.2/26.3. DC on diuretic taper for dilutional component and MVI with iron and repeat as outpt Primary osteoarthritis of left knee 02/21/2018 [facility]. Type II or unspecified type diabetes mellitus without mention of complication, not stated as uncontrolled (more content not included)... Normal [facility] No Panel Informationon 04-14 Radiology Study observation (narrative) [facility] Pathology biopsy report Kojo (Tiss)on 04-14-2025 AP DISCLAIMER Normal [facility] Comment on above: Order Comment: Mariza gomes Type: BLOOD SPECIMEN Ordering Facility: [facility] Address: [address] [place] [address] Result Comment: Mary garcia Developed Test (LDT) Disclaimer: Performance characteristics of immunohistochemical, immunofluorescent, and chromogenic in-situ hybridization tests have been determined by the performing laboratory within [facility] [place] Pathology and Laboratory Medicine Department ([facility], [facility], [facility], [facility], [facility], [facility], or [facility]) in a manner consistent with CLIA requirements. One or more of these tests may not have been cleared or approved by the FDA. [facility] is regulated under CLIA as qualified to perform high-complexity testing. These tests are used for clinical purposes. These should not be regarded as investigational or for research. Positive and negative controls stain appropriately. Performed By: #### 5 8410-2 #### [facility] CLIA [id number] [address] [place] [address] [place] CASE REPORT Normal [facility] Comment on above: Order Comment: Mariza gomes Type: BLOOD SPECIMEN Ordering Facility: [facility] Address: [address] [place] [address] Result Comment: Surg [facility] Pathology Report Case: [id number] Authorizing Provider: Nikos Rviera MD Collected: 04/14/2025 08:28 AM Ordering Location: Ambulatory Surgery Received: 04/14/2025 12:31 PM Pathologist: Judith Clemente MD Specimens: A) - Stomach, Antrum, Biopsy, Antral bx for h/h B) - Esophagus, Distal, Biopsy, for inflammation C) - Colon, Cecum, Polyp, Cecal x 2 polyps Performed By: #### 5 8410-2 #### [facility] CLIA [id number] [address] [place] [address] [place] FINAL DIAGNOSIS Normal [facility] Comment on above: Order Comment: Mariza gomes Type: BLOOD SPECIMEN Ordering Facility: [facility] Address: [address] [place] [address] Result Comment: A. S tomach, antrum, biopsy: - Reactive gastropathy. - No morphologic evidence of Helicobacter pylori microorganisms. B. Esophagus, distal, biopsy: - Slightly hyperplastic squamous epithelium and cardia type mucosa, negative for intestinal metaplasia or dysplasia. C. Colon, cecum, polypectomy x 2: - Tubular adenoma. - Polypoid fragment of colonic mucosa, negative for dysplasia. at 1656 EDT Performed By: #### 5 8410-2 #### [facility] CLIA [id number] [address] [place] [address] [place] FINAL PERFORMING LAB Normal [facility] [place] Comment on above: Order Comment: Speci men Type: BLOOD SPECIMEN Ordering Facility: [facility] Address: [address] [place] [address] Result Comment: Diag nostic interpretation performed at: [facility], [address] [place] [address] CLIA# [id number] Chairman & Co Founder: Modesto Vargas MD Performed By: #### 5 8410-2 #### [facility] CLIA [id number] [address] [place] [address] [facility] Comment on above: Order Comment: Speci men Type: BLOOD SPECIMEN Ordering Facility: [facility] Address: [address] [place] [address] Result Comment: A. S tomach, Antrum, Biopsy Received in formalin is a segment of lazaro-brown polypoid tissue measuring 0.5 x 0.3 x 0.3 cm. No stalk is noted. The line of resection is noted. The specimen is bisected and totally submitted in one cassette. B. Esophagus, Distal, Biopsy Received in formalin is one piece of lazaro-brown, soft tissue measuring 0.4 x 0.3 x 0.2 cm. Totally submitted in one cassette. C. Colon, Cecum, Polyp Received in formalin are two pieces of lazaro, soft tissue aggregating to 0.5 x 0.3 x 0.3 cm. Totally submitted in one cassette. 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 Refer to note in patient chart for documentation of history and physical. Patient has symptoms. Referring Physician: Elvie Monterroso (Referring MD) Medicines: Midazolam 6 mg IV, Fentanyl 100 micrograms IV, Diphenhydramine 50 mg IV Complications: No immediate complications. Requesting Provider: Procedure: Pre-Anesthesia Assessment: - Prior to the procedure, a History and Physical was performed, and patient medications and allergies were reviewed. The patient is competent. The risks and benefits of the procedure and the sedation options and risks were discussed with the patient. All questions were answered and informed consent was obtained. Patient identification and proposed procedure were verified by the physician and the nurse in the procedure room. Mental Status Examination: alert and oriented. Respiratory Examination: clear to auscultation. Prophylactic Antibiotics: The patient does not require prophylactic antibiotics. Prior Anticoagulants: The patient has taken Plavix (clopidogrel), last dose was 1 day prior to procedure. ASA Grade Assessment: III - A patient with severe systemic disease. After reviewing the risks and benefits, the patient was deemed in satisfactory condition to undergo the procedure. The anesthesia plan was to use moderate sedation / analgesia (conscious sedation). Immediately prior to administration of medications, the patient was re-assessed for adequacy to receive sedatives. The heart rate, respiratory rate, oxygen saturations, blood pressure, adequacy of pulmonary ventilation, and response to care were monitored throughout the procedure. The physical status of the patient was re-assessed after the procedure. - Prior to the procedure, a History and Physical was performed, and patient medications and allergies were reviewed. The patient's tolerance of previous anesthesia was also reviewed. The risks and benefits of the procedure and the sedation options and risks were discussed with the patient. All questions were answered, and informed consent was obtained. Prior Anticoagulants: The patient has taken Plavix (clopidogrel), last dose was 1 day prior to procedure. ASA Grade Assessment: III - A patient with severe systemic disease. After reviewing the risks and benefits, the patient was deemed in satisfactory condition to undergo the procedure. After obtaining informed consent, the endoscope was passed under direct vision. Throughout the procedure, the patient's blood pressure, pulse, and oxygen saturations were monitored continuously. The Endosonoscope was introduced through the mouth, and advanced to the jejunum. The upper GI endoscopy was accomplished without difficulty. The patient tolerated the procedure well. Moderate Sedation: Moderate (conscious) sedation was personally administered by the endoscopist. The following parameters were monitored: oxygen saturation, heart rate, blood pressure, and response to care. Total physician intraservice time was 34 minutes. The administration of moderate sedation was initiated at 08:18. Findings: The examined jejunum was normal. Localized moderate inflammation characterized by congestion (edema), erosions and deep ulcerations was found in the duodenal bulb. Localized moderate inflammation characterized by adherent blood, erosions, erythema and friability was found in the entire examined stomach. Biopsies were taken with a cold forceps for Helicobacter pylori testing. Moderate esophagitis with no bleeding was found in the lower third of the esophagus. Biopsies were taken with a cold forceps for histology. Impression: - Normal examined jejunum. - Duodenitis, characterized by congestion (edema), erosions and deep ulcerations. - Gastritis, characterized by adherent blood, erosions, erythema and friability. Biopsied. - Moderate reflux esophagitis with no bleeding. Biopsied. Recommendation: - Discharge patient to home. - Resume previous diet. - Continue present medications. - Await pathology results. - Return to nurse practitioner in 1 week. - Use Prilosec (omeprazole) 40 mg PO daily. Procedure Code(s): --- Professional --- 39934, Esophagogastroduodenosc opy, flexible, transoral; with biopsy, single or multiple G0500, Moderate sedation services provided by the same physician or other qualified health career guidance counselor performing a gastrointestinal endoscopic service that sedation supports, requiring the presence of an independent trained observer to assist in the monitoring of the p (more content not included)... Normal [facility] CNOVon 04-06-2025 CNOV Office Visit (VASSWS ) MARIE HUTSON ([id number]) 1950 M Date Time Provider Department 04/06/25 9:15 AM NARGIS YIN VASSWS During your visit today, we recorded the following information about you: Pulse Blood pressure 56/minute 116/65 Gem Quiroga MA 04/06/2025 9:38 AM Signed Patient presents with: Follow Up: 1 year follow up PAD AMB ROOMING INTAKE FLOWSHEET DATA Patient denies any pain PVR done prior to appointment today. Nargis Yin DO 04/06/2025 9:38 AM Signed [facility] [place] DEPARTMENT OF VASCULAR SURGERY OUTPATIENT VISIT DATE April 06, 2025 OUTPATIENT VISIT TYPE ESTABLISHED SERVICE DATE: 04/06/2025 SERVICE TIME: 9:23 AM PRIMARY CARE PHYSICIAN: Sher Jules MD HISTORY OF PRESENT ILLNESS: Mr. Hutson is a 75 year old male who presents today for a vascular surgery follow-up visit for peripheral arterial disease. Denies significant claudication or rest pain. States he can walk about one city block prior to onset of pain. He is still able to do yard work and house work however he needs to take frequent breaks. Denies pain at rest. 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 Coronary artery disease Dermatophytosis of nail 12/29/2007 Diabetic peripheral neuropathy (HCC) 05/17/2014 Diabetic polyneuropathy associated with type 2 diabetes mellitus (HCC) DVT of leg (deep venous thrombosis) (HCC) 11/16/2013 post-op CABG, rx with Xarelto Essential hypertension Hypertrophy of prostate without urinary obstruction and other lower urinary tract symptoms (LUTS) 12/29/2007 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/29/2007 Non-ST elevation myocardial infarction (NSTEMI) 10/17/2013 Non-STEMI (non-ST elevated myocardial infarction) (HCC) 01/30/2024 LISANDRO to distal RCA Nonspecific abnormal results of liver function study 04/29/2008 Obesity, unspecified 12/29/2007 Onychomycosis Other and unspecified hyperlipidemia PAD (peripheral artery disease) 08/05/2009 Personal history of other malignant neoplasm of skin 11/05/2010 skin cancer Postoperative anemia 10/25/2013 Transfused on 10/25 1 U PRBC. HANDH 9.2/26.3. DC on diuretic taper for dilutional component and MVI with iron and repeat as outpt Primary osteoarthritis of left knee 02/21/2018 [facility]. Type II or unspecified type diabetes mellitus without mention of complication, not stated as uncontrolled 12/29/2007 Unspecified essential hypertension PAST SURGICAL HISTORY Procedure Laterality Date ANGIOPLASTY FEMORAL/POP 09/07/2010 right BALLN ANGIOPLASTY PERC,FEM-POP 11/17/2009 APLL WITH SILVERHAWK AND ANGIOPLASTY CC DRUG ELUTING STENT 1 VESSEL 01/29/2024 PTCA LISANDRO distal RCA CC DRUG ELUTING STENT ADDL VESSEL 09/30/2024 PCI, LISANDRO to 1) dislal Left main, 2) ramus intermedius. COLONOSCOPY FLX DX W/COLLJ SPEC WHEN PFRMD 07/2008 Colonoscopy COLONOSCOPY FLX DX W/COLLJ SPEC WHEN PFRMD 09/14/2013 Colonoscopy COLONOSCOPY FLX DX W/COLLJ SPEC WHEN PFRMD 12/02/2018 Colonoscopy CORONARY ARTERY BYP W/VEIN AND ARTERY GRAFT 3 VEIN 10/20/2013 CABG, three grafts F ENDARTERECTOMY FEMORAL PROFUNDA Bilateral 05/24/2016 fem. endarterectomy, profundaplasty LEFT HEART CATH,PERCUTANEOUS 10/19/2013 Cardiac cath, L heart PRIM PRQ TRLUML MCHNL THRMBC N-COR N-ICRA 1ST 12/05/2009 left REVSC OPN/PRQ ILIAC ART W/STNT PLMT AND ANGIOPLSTY Left 04/19/2016 with 9x29mm satish stenting SLCTV CATHJ EA 2ND+ ORD ABDL PEL/LXTR ART BRNCH 11/17/2009 LLE UNSPECIFIED ORAL SURGERY PROCEDURE, BY REPORT wisdom teeth removed SOCIAL HISTORY Social History Tobacco Use Smoking status: Former Current packs/day: 0.00 Average packs/day: 1 pack/day for 34.0 years (34.0 ttl pk-yrs) Types: Cigarettes Start date: 10/28/1968 Quit date: 10/28/2002 Years since quittin.4 Passive exposure: Past Smokeless tobacco: Never Vaping Use Vaping status: Never Used Substance Use Topics Alcohol use: Yes Alcohol/week: 30.0 standard drinks of alcohol Types: 30 Cans of Beer (12oz) per week Comment: 6 beers per day, sometimes less Drug use: Yes Frequency: 2.0 times per week Comment: marijuana MEDICATIONS: amLODIPine (NORVASC) 10 mg tablet Take 1 tablet by mouth once daily. cloNIDine HCl (CATAPRES) 0.2 mg tablet Take 1 tablet by mouth two times a day. lisinopril (ZESTRIL) 40 mg tablet Take 1 tablet by mouth two times a day. metoprolol tartrate, short acting, (LOPRESSOR) 25 mg tablet Take 0.5 tablets by mouth every 12 hours. metFORMIN (GLUCOPHAGE) 500 mg tablet Take 2 tablets by mouth two times a day with meals. (more content not included)... Normal [facility] PVR ANK/EASTMAN/TOE NOHEMY VAS LAB on 04-06-2025 PVR ANK/EASTMAN/TOE NOHEMY VAS LAB Non-Invasive Vascular Laboratory [facility] Lower Extremity Arterial Physiology Study Bilateral/Complete Date of service/time: 04/06/2025 7:59:09 AM Name: MARIE HUTSON Date of : 1950 Age: 75 years Gender: M Clinical Indication Claudication and peripheral arterial disease. TECHNIQUE -------- An arterial physiological examination was performed, including measurement of blood pressures using continuous wave Doppler and recording of plethysmographic with or without Doppler waveforms at the below-mentioned limb segments. FINDINGS -------- RIGHT SIDE AT REST Right Doppler Waveforms Dorsalis pedis: Monophasic. Post tibial: Monophasic. Right Pressures Brachial: 125 mmHg Ankle dorsalis pedis: 27 mmHg SWATI: 0.21 Ankle posterior tibial: 34 mmHg SWATI: 0.26 Right PVR Waveforms Ankle: Severely dampened. Transmetatarsal: Severely dampened. Digit: Severely dampened. LEFT SIDE AT REST Left Doppler Waveforms Dorsalis pedis: Monophasic. Post tibial: Monophasic. Left Pressures Brachial: 131 mmHg Ankle dorsalis pedis: 31 mmHg SWATI: 0.24 Ankle posterior tibial: 43 mmHg SWATI: 0.33 Left PVR Waveforms Ankle: Moderately dampened. Transmetatarsal: Severely dampened. Digit: Severely dampened. IMPRESSION Compared to prior study of 04/07/2024, Right ankle brachial index was 0.36 and left was 0.35. RIGHT SIDE Resting right ankle brachial index: 0.26 Abnormal ankle brachial index at rest diagnostic of peripheral artery disease. Right ankle: Severe disease at rest. LEFT SIDE Resting left ankle brachial index: 0.33 Abnormal ankle brachial index at rest diagnostic of peripheral artery disease. Left ankle: Severe disease at rest. Technologist: Evi Hernandes RVT [facility] Ordering physician: NARGIS YIN Interpreting physician: Dov Og MD, ABDELRAHMAN Final CC [employer] Image : [id number] See Link below for Image Normal [facility] Electrolytes 1998 panelon Anion gap [Moles/Vol] 9 mmol/L Normal 8-15 [facility] Comment on above: Order Comment: Speci men Type: BLOOD SPECIMENOrdering Facility: [facility] Address: [address] [place] [address] Performed By: #### 2 4326-1 ####[facility] [id number] [place] [address] [place] Chloride [Moles/Vol] 96 mmol/L Low 98-107 [facility] [place] Comment on above: Order Comment: Speci men Type: BLOOD SPECIMENOrdering Facility: [facility] Address: [address] [place] [address] Performed By: #### 2 4326-1 ####[facility] [id number] [place] [id number] [place] CO2 [Moles/Vol] 25 mmol/L Normal 22-30 [facility] Comment on above: Order Comment: Speci men Type: BLOOD SPECIMENOrdering Facility: [facility] Address: [address] [place] [address] Performed By: #### 2 4326-1 ####[facility] [id number] [place] [address] [place] Potassium [Moles/Vol] 4.5 mmol/L Normal 3.7-5.1 [facility] Comment on above: Order Comment: Speci men Type: BLOOD SPECIMENOrdering Facility: [facility] Address: [address] [place] [address] Performed By: #### 2 4326-1 ####[facility] [id number] [place] [address] [place] Sodium [Moles/Vol] 130 mmol/L Low 136-144 [facility] Comment on above: Order Comment: Speci men Type: BLOOD SPECIMENOrdering Facility: [facility] Address: [address] [place] [address] Performed By: #### 2 4326-1 ####[facility] [id number] [place] [id number] [place] CNOVon 03-18-2025 [facility] MARIE HUTSON ([id number]) 1950 M Date Time Provider Department 03/18/25 9:30 AM ELVIE MONTERROSO During your visit today, we recorded the following information about you: Pulse Respiration Blood pressure Weight 62/minute 14/minute 128/62 86.8 kg Elvie Monterroso APRN.CNP 03/18/2025 10:06 AM Signed HISTORY AND PHYSICAL Marie Hutson : 1950 REFERRING PHYSICIAN: Barb Suggs [address] [facility] [address] CHIEF COMPLAINT: Patient presents with: Consult: For colonoscopy. Denies symptoms HPI: Marie is a 75 year old male referred for endoscopy. Marie notes anemia. Last HANDH 10.6 AND 29.8 (03/15/25). Marie denies abdominal pain. Marie denies diarrhea. Marie denies constipation. Marie denies a change in bowel habits. Marie denies melena. Marie denies bright red blood per rectum. Marie denies hemorrhoids. Marie denies family history of colon issues. Marie denies heartburn. Marie denies dysphagia. Marie denies a history of ulcers/ peptic ulcer disease. Marie follows with [facility] for hx of CABG x 3 (2012), CAD with 2 stents in 09/2024. On plavix. Last OV 01/2025. He denies CP, SOB, dizziness, palpitations, syncope, edema, recent hospitalizations Other medical history is significant for T2DM and osteoarthritis. Marie has undergone prior endoscopy. Last colonoscopy was 11/[address] Rivera at [facility]. Sedation:Midazolam 5 mg IV, Fentanyl 100 micrograms IV Impression: - One 8 mm polyp in the cecum, removed with a hot snare. Resected and retrieved. - The examination was otherwise normal. - The distal rectum and anal verge are normal on retroflexion view. - Diverticulosis in the sigmoid colon. CONVERTED FINAL DIAGNOSIS Colon, cecum, polypectomy (A) - Tubular adenoma. DTP/dcr 12/03/2018 Current Outpatient Medications Medication Sig amLODIPine (NORVASC) 10 mg tablet Take 1 tablet by mouth once daily. cloNIDine HCl (CATAPRES) 0.2 mg tablet Take 1 tablet by mouth two times a day. lisinopril (ZESTRIL) 40 mg tablet Take 1 tablet by mouth two times a day. metoprolol tartrate, short acting, (LOPRESSOR) 25 mg tablet Take 0.5 tablets by mouth every 12 hours. metFORMIN (GLUCOPHAGE) 500 mg tablet Take 2 tablets by mouth two times a day with meals. clopidogrel (PLAVIX) 75 mg tablet Take 1 tablet by mouth once daily. gabapentin (NEURONTIN) 300 mg capsule Take 1 capsule by mouth daily at bedtime for 180 days. Patient should start on December 26, 2024. hydrALAZINE (APRESOLINE) 50 mg tablet Take 1 tablet by mouth three times a day. atorvastatin (LIPITOR) 40 mg tablet Take 1 tablet by mouth daily at bedtime. For cholesterol. nitroglycerin sublingual (NITROQUICK) 0.3 mg SL tablet Dissolve 1 tablet under the tongue every 5 minutes as needed for chest pain. aspirin, enteric coated (ASPIRIN, ENTERIC COATED) 81 mg EC tablet Take 1 tablet by mouth once daily. therapeutic multivitamin tablet Take 1 tablet by mouth daily with breakfast. blood sugar diagnostic (ONE TOUCH ULTRA TEST) test strip Use as instructed blood sugar diagnostic (ONE TOUCH ULTRA TEST) test strip TEST BLOOD SUGARS ONCE DAILY lancets(ONE TOUCH ULTRASOFT LANCETS) Test blood sugar once daily. peg 3350-Electrolytes (GOLYTELY) 236-22.74-6.74 -5.86 gram suspension Take 4,000 mL by mouth one time only for 1 dose. Refer to printed prep instructions from your provider. No current facility-administered medications for this visit. ALLERGIES: Patient has no known allergies. 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 Coronary artery disease Dermatophytosis of nail 12/29/2007 Diabetic peripheral neuropathy (HCC) 05/17/2014 Diabetic polyneuropathy associated with type 2 diabetes mellitus (HCC) DVT of leg (deep venous thrombosis) (HCC) 11/16/2013 post-op CABG, rx with Xarelto Essential hypertension Hypertrophy of prostate without urinary obstruction and other lower urinary tract symptoms (LUTS) 12/29/2007 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/29/2007 Non-ST elevation myocardial infarction (NSTEMI) 10/17/2013 Non-STEMI (non-ST elevated myocardial infarction) (HCC) 01/30/2024 LISANDRO to distal RCA Nonspecific abnormal results of liver function study 04/29/2008 Obesity, unspecified 12/29/2007 Onychomycosis Other and unspecified hyperlipidemia PAD (peripheral artery disease) 08/05/2009 Personal history of other malignant neoplasm of skin 11/05/2010 skin cancer Postoperative anemia 10/25/2013 Transfused on 10/25 1 U PRBC. HANDH 9.2/26.3. DC on diuretic taper for dilutional component and M (more content not included)... Normal [facility] Hemoccult Stl Ql IAon 2024 Lower GI hemoglobin IA Ql (Stl) Negative Normal Negative [facility] Comment on above: Order Comment: Speci men Type: STOOL SPECIMENOrdering Facility: [facility] Address: [address] [place] [address] Performed By: #### 2 9771-3 ####[facility]IA [id number] [address] STATES OF [facility] CNOVon 03-16-2025 CNOV Office Visit ([facility] ) MARIE HUTSON ([id number]) 1950 Av Date Time Provider Department 03/16/25 10:00 AM BARB SUGGS [facility] During your visit today, we recorded the following information about you: Pulse Respiration Blood pressure Weight 60/minute 14/minute 130/74 86.3 kg Height 1.75 m Barb Suggs, MUSEUM CURATOR.SLOT SUPERVISOR 03/16/2025 10:47 AM Signed Marie Davis Caryl is a 75 year old male here for a Medicare wellness visit. Medicare Health Risk Assessment General Health Good Exercise: Minutes/Day 0 min Exercise: Days/Week 0 days Alcohol: Daily Use 4 or more times a week Alcohol: Drinks/Day 5 or 6 Alcohol: 6 or more drinks Daily or almost daily Feel off balance No Concerns: Teeth/Dentures No Concerns: Sexual function No Troubled by feelings None of the above Frequency: Eating healthy diet Nearly every day ADLs requiring help None of the above Safety precautions in home/vehicle Yes Smoke, vape, chews tobacco No Difficulty hearing Yes, I wear a hearing aid Difficulty seeing No Current Providers Specialists: I have reviewed specialist-related care of the patient in the medical record. Current care team: Patient Care Team: Sher Jules MD as PCP - General Barb Suggs APRN.HAYDEN as Firesetter (Internal Medicine) [facility] (Neurology) [facility] (Cardiology) Nargis Yin MD Vascular-[facility] Gomez Schwab DPM, Podiatry-[facility] Genomics Scientist-Hugh Delacruz/Dr. Edward Adams Block Press Operator- Christian Merritt Medical/Family history review Reviewed and updated problem list, medical/surgical/family /social history, medications, and allergies. Opioid use review Opioid Medications (last 90 days) No data to display Anxiety/Depression screening PHQ-2 Score: 0 (Lower risk for depression) ELIZABETH-7 Score: 0 Recommendation: no further intervention at this time Cognitive screening Mini Cog Score: 5 Cognitive screening reviewed and No further action needed (score 3-5). Functional Observation Was the patient's Timed Up AND Go test unsteady or >= 12 seconds? No Advance Care Planning Surrogate decision maker documented and/or advance directives scanned in chart Measurements BP 130/74 Pulse 60 Resp 14 Ht 175 cm (5' 8.9) Wt 86.3 kg (190 lb 4.1 oz) SpO2 98% BMI 28.18 kg/m? Vision Screening: Follows with optometry/ophthalmology Assessment/Plan Medicare annual wellness visit, subsequent (Z00.00) - Counseled on healthy diet and regular exercise - Fall avoidance information provided - Personalized prevention plan provided - Discussed need for and benefit of weight loss. BMI 28.18 kg/(m2) - Counseled patient on alcohol intake and associated health risks Additional Concerns The following concerns were also discussed with the patient: Recording using [employer] software for draft documentation of the visit was discussed with the patient/authorized bank representative; all questions welcomed and answered. Patient/authorized bank representative agreed to proceed Marie is a 75-year-old male with a history of DM, HTN, CAD, and neuropathy, presenting for a Medicare wellness visit. Marie reports chronic hyponatremia, with recent lab results showing a sodium level of 126 mmol/L. He is no longer taking hydrochlorothiazide. He experiences occasional dizziness, lightheadedness, and a foggy feeling, as well as nocturnal leg cramps that cause him to spring up out of bed. He also has a history of anemia, with recent lab results confirming persistent low blood counts. He denies hematochezia or melena but reports increased fatigue and dyspnea, particularly when walking. He notes difficulty ambulating due to leg issues. His last colonoscopy was several years ago, and he is supposed to have one every 5 years. He recently had two stents placed in [place] and is currently on Plavix, which he believes he will be on for life due to a history of multiple MIs. He was advised to wait a year before having a colonoscopy. Marie also reports hand and wrist pain, particularly in the evenings. He attributes this to motorcycle riding, which involves frequent use of the clutch and brakes. The pain is described as joint pain, primarily in the knuckles, thumb, and wrist, and is not associated with numbness or tingling. He has tried Voltaren gel, which provides some relief. He is on multiple medications, including gabapentin for neuropathy, lisinopril and metoprolol for blood pressure, hydralazine 50 mg TID, and metformin for diabetes. He checks his blood pressure at home, with a recent reading of 135 mmHg, and his blood sugars, with a recent fasting glucose of 108 mg/dL. He is currently taking metoprolol 12.5 mg BID, although his prescription is for TID. He has a stockpile of metoprolol and hydralazine and does not need refills at this time. BP 130/74 Pulse 60 Resp 14 Ht 175 cm (5' 8.9) Wt 86 (more content not included)... Normal [facility] Ferritin SerPl-mCncon 2024 Ferritin [Mass/Vol] 198.0 ng/mL Normal 30.3-565.7 [facility]: Order Comment: Speci men Type: BLOOD SPECIMEN [facility]ing [facility]: [facility] Address: [address] [place] [address] Performed By: #### 5 8410-2 #### [facility] CLIA [id number] [address] [place] [address] [place] Folate SerPl-ncon 03-16-20 Folate [Mass/Vol] ng/mL Normal >4.7 [facility] Comment on above: Order Comment: Speci men Type: BLOOD SPECIMEN [facility]ing Facility: [facility] Address: [address] [place] [address] Result Comment: A re sult of > 20 ng/mL is not necessarily indicative of a pathologic or treatable condition: it reflects a limitation of the test methodology. Assay reference range: 4.8 to 24.2 ng/mL. Suitable for detection of folate deficiency. Reference: Folate III (Folate III) [package insert V 1.0 Gabonese]. [facility], [place], [place]: August 2015. Performed By: #### 5 8410-2 #### [facility] CLIA [id number] [address] [place] [address] [place] Iron and Iron binding capaci panel 03-16-2025 Iron [Mass/Vol] 44 ug/dL Normal 41-186 [facility] Comment on above: Order Comment: Speci men Type: BLOOD SPECIMEN [facility]ing [facility]: [facility] Address: [address] [place] [address] Performed By: #### 5 8410-2 #### [facility] CLIA [id number] [address] [place] [address] [place] Iron binding capacity [Mass/Vol] 273 ug/dL Normal 232-386 [facility] Comment on above: Order Comment: Speci men Type: BLOOD SPECIMEN [facility]ing [facility]: [facility] Address: [address] [place] [address] Performed By: #### 5 8410-2 #### [facility] CLIA [id number] [address] [place] [address] [place] Iron/TIBC [Molar ratio] 16.1 % Normal 15.0-57.0 [facility] Comment on above: Order Comment: Speci men Type: BLOOD SPECIMEN [facility]ing Facility: [facility] Address: [address] [place] [address] Performed By: #### 5 8410-2 #### [facility] CLIA [id number] [address] [place] [address] [place] Osmolality SerPlon Osmolality [Osmolality] 276 mosm/kg Normal 275-300 [facility] Comment on above: Order Comment: Speci men Type: BLOOD SPECIMENOrdering Facility: [facility] Address: [address] [place] [address] Performed By: #### 2 692-2 ####[facility] [id number] [address] [place] Osmolality Uron 03-16-2025 Osmolality (U) [Osmolality] 313 mosm/kg Normal 50-1200 [facility] Comment on above: Order Comment: Speci men Type: BLOOD SPECIMEN [facility]ing [facility]: [facility] Address: [address] [place] [address] Performed By: #### 5 8410-2 #### [facility] CLIA [id number] [address] [place] [address] [place] Sodium ?Tm Ur-sCncon 025 Sodium Unsp time (U) [Moles/Vol] 40 mmol/L Normal 14-216 [facility] Comment on above: Order Comment: Speci men Type: URINE SPECIMEN [facility]ing Facility: [facility] Address: [address] [place] [address] Performed By: #### 3 5678-2 #### [facility] CLIA [id number] [address] [place] [address] [place] Vit B12 SerPl-mCncon 025 Cobalamin (Vitamin B12) [Mass/Vol] 555 pg/mL Normal 232-1245 [facility] Comment on above: Order Comment: Speci men Type: BLOOD SPECIMEN [facility]ing [facility]: [facility] Address: [address] [place] [address] Performed By: #### 5 8410-2 #### [facility] CLIA [id number] [address] [place] [address] [place] [address] [place] XR HAND 3V PA/LAT/OBL BILon 03-16-2025 XR HAND 3V PA/LAT/OBL NOHEMY * * *Final Report* * * DATE OF EXAM: Mar 16 2025 11:46AM WOX [id number] - XR HAND 3V PA/LAT/OBL NOHEMY / PROCEDURE REASON: multiple diagnoses * * * * Physician Interpretation * * * * HISTORY: Arthralgia of both hands Arthralgia of both hands . bilateral hand pain x 3 months. Pt states the pain is mostly in his joints. TECHNIQUE: XR HAND 3V PA/LAT/OBL NOHEMY Laterality: BILATERAL Number of different views (projections): 3 COMPARISON: None RESULT: Bilateral hands: No acute fracture or dislocation. Mild radiocarpal narrowing on the left. Mild bilateral triscaphe narrowing and tiny osteophytes. Mild bilateral first MCP narrowing and first CMC narrowing with tiny osteophytes. Bilateral scattered IP narrowing and osteophytes greater and mild to moderately involving the left fifth DIP and right first IP joints. No visualized erosion. Nonspecific faint calcification is seen overlying the soft tissues about the radial aspect of the left first metacarpal head which may relate to remote injury. Also nonspecific punctate calcification overlying the soft tissues about the ulnar aspect of the right mid shaft third metacarpal. Vascular calcifications overlying the wrists bilaterally. IMPRESSION: Bilateral hand osteoarthritis. No erosions. Strapping Machine Tender: PSCB Transcribe Date/Time: Mar 20 2025 2:18P Dictated by : DREAD CORONA MD This examination was interpreted and the report reviewed and electronically signed by: DREAD CORONA MD on Mar 20 2025 2:20PM EST [id number] Normal [facility] Basic metabolic 2000 panelon 03-15-2025 Anion gap [Moles/Vol] 12 mmol/L Normal 8-15 [facility] Comment on above: Order Comment: Speci men Type: BLOOD SPECIMEN [facility]ing Facility: [facility] Address: [address] [place] [address] Performed By: #### 5 8410-2 #### [facility] CLIA [id number] [address] [place] [address] [place] Calcium [Mass/Vol] 9.7 mg/dL Normal 8.5-10.2 [facility] Comment on above: Order Comment: Speci men Type: BLOOD SPECIMEN [facility]ing Facility: [facility] Address: [address] [place] [address] Performed By: #### 5 8410-2 #### [facility] CLIA [id number] [address] [place] [address] [place] Chloride [Moles/Vol] 93 mmol/L Low 98-107 [facility] Comment on above: Order Comment: Speci men Type: BLOOD SPECIMEN [facility]ing Facility: [facility] Address: [address] [place] [address] Performed By: #### 5 8410-2 #### [facility] CLIA [id number] [address] [place] [address] [place] CO2 [Moles/Vol] 21 mmol/L Low 22-30 [facility] Comment on above: Order Comment: Speci men Type: BLOOD SPECIMEN [facility]ing [facility]: [facility] Address: [address] [place] [address] Performed By: #### 5 8410-2 #### [facility] CLIA [id number] [address] [place] [address] [place] Creatinine [Mass/Vol] 0.56 mg/dL Low 0.73-1.22 [facility] Comment on above: Order Comment: Speci men Type: BLOOD SPECIMEN [facility]ing [facility]: [facility] Address: [address] [place] [address] Performed By: #### 5 8410-2 #### [facility] CLIA [id number] [address] [place] [address] [place] Creatinine and Glomerular filtration rate.predicted panel (S/P/Bld) 104 mL/min/1.73m??? Normal >=60 [facility] Comment on above: Order Comment: Mariza gomes Type: BLOOD SPECIMEN [facility]ing Facility: [facility] Address: [address] [place] [address] Result Comment: Ingrid mated Glomerular Filtration Rate (eGFR) is calculated using the 2020 CKD-EPI creatinine equation. This equation utilizes serum creatinine, sex, and age as parameters. The creatinine assay has traceable calibration to isotope dilution-mass spectrometry. Refer to KDIGO guidelines for clinical interpretation. In patients with unstable renal function, e.g. those with acute kidney injury, the eGFR may not accurately reflect actual GFR. Performed By: #### 5 8410-2 #### [facility] CLIA [id number] [address] [place] [address] [place] Glucose [Mass/Vol] 90 mg/dL Normal 74-99 [facility] Comment on above: Order Comment: Mariza gomes Type: BLOOD SPECIMEN Ordering Facility: [facility] Address: [address] [place] [address] Result Comment: The [place] [employer] (ADA) provides guidance for cutoff values for fasting glucose and random glucose. The ADA defines fasting as no caloric intake for at least 8 hours. Fasting plasma glucose results between 100 to 125 mg/dL indicate increased risk for diabetes (prediabetes). Fasting plasma glucose results greater than or equal to 126 mg/dL meet the criteria for diagnosis of diabetes. In the absence of unequivocal hyperglycemia, results should be confirmed by repeat testing. In a patient with classic symptoms of hyperglycemia or hyperglycemic crisis, random plasma glucose results greater than or equal to 200 mg/dL meet the criteria for diagnosis of diabetes. Reference: Standards of Medical Care in Diabetes 2016, [place] [employer]. Diabetes Care. 2016.39(Suppl 1). Performed By: #### 5 8410-2 #### [facility] CLIA [id number] [address] [place] [address] [place] Potassium [Moles/Vol] 4.4 mmol/L Normal 3.7-5.1 [facility] Comment on above: Order Comment: Speci men Type: BLOOD SPECIMEN [facility]ing Facility: [facility] Address: [address] [place] [address] Performed By: #### 5 8410-2 #### [facility] CLIA [id number] [address] [place] [address] [place] Sodium [Moles/Vol] 126 mmol/L Low 136-144 [facility] Comment on above: Order Comment: Speci men Type: BLOOD SPECIMEN [facility]ing Facility: [facility] Address: [address] [place] [address] Performed By: #### 5 8410-2 #### [facility] CLIA [id number] [address] [place] [address] [place] Urea nitrogen [Mass/Vol] 9 mg/dL Normal 9-24 [facility] Comment on above: Order Comment: Speci men Type: BLOOD SPECIMEN Ordering Facility: [facility] Address: [address] [place] [address] Performed By: #### 5 8410-2 #### [facility] CLIA [id number] [address] [place] [address] [place] CBC panel Auto (Bld)on 03-15 Erythrocyte distribution width (RBC) [Ratio] 11.8 % Normal 11.5-15.0 [facility] Comment on above: Order Comment: Speci men Type: BLOOD SPECIMEN Ordering Facility: [facility] Address: [address] [place] [address] Performed By: #### 5 8410-2 #### [facility] CLIA [id number] [address] [place] [address] [place] Hematocrit (Bld) [Volume fraction] 29.8 % Low 39.0-51.0 [facility] Comment on above: Order Comment: Speci men Type: BLOOD SPECIMEN Ordering Facility: [facility] Address: [address] [place] [address] Performed By: #### 5 8410-2 #### [facility] CLIA [id number] [address] [place] [address] [place] Hemoglobin (Bld) [Mass/Vol] 10.6 g/dL Low 13.0-17.0 [facility] Comment on above: Order Comment: Speci men Type: BLOOD SPECIMEN Ordering Facility: [facility] Address: [address] [place] [address] Performed By: #### 5 8410-2 #### [facility] CLIA [id number] [address] [place] [address] [place] MCH (RBC) [Entitic mass] 34.8 pg High 26.0-34.0 [facility] Comment on above: Order Comment: Speci men Type: BLOOD SPECIMEN Ordering Facility: [facility] Address: [address] [place] [address] Performed By: #### 5 8410-2 #### [facility] CLIA [id number] [address] [place] [address] [place] MCHC (RBC) [Mass/Vol] 35.6 g/dL Normal 30.5-36.0 [facility] Comment on above: Order Comment: Speci men Type: BLOOD SPECIMEN Ordering Facility: [facility] Address: [address] [place] [address] Performed By: #### 5 8410-2 #### [facility] CLIA [id number] [address] [place] [address] [place] MCV (RBC) [Entitic vol] 97.7 fL Normal 80.0-100.0 [facility] Comment on above: Order Comment: Speci men Type: BLOOD SPECIMEN Ordering Facility: [facility] Address: [address] [place] [address] Performed By: #### 5 8410-2 #### [facility] CLIA [id number] [address] [place] [address] [place] Nucleated RBC (Bld) [#/Vol] 10*3/uL Normal <0.01 [facility] Comment on above: Order Comment: Speci men Type: BLOOD SPECIMEN Ordering Facility: [facility] Address: [address] [place] [address] Performed By: #### 5 8410-2 #### [facility] CLIA [id number] [address] [place] [address] [place] Platelet mean volume (Bld) [Entitic vol] 9.1 fL Normal 9.0-12.7 [facility] Comment on above: Order Comment: Speci men Type: BLOOD SPECIMEN Ordering Facility: [facility] Address: [address] [place] [address] Performed By: #### 5 8410-2 #### [facility] CLIA [id number] [address] [place] [address] [place] Platelets (Bld) [#/Vol] 319 10*3/uL Normal 150-400 [facility] Comment on above: Order Comment: Speci men Type: BLOOD SPECIMEN Ordering Facility: [facility] Address: [address] [place] [address] Performed By: #### 5 8410-2 #### [facility] CLIA [id number] [address] [place] [address] [place] RBC (Bld) [#/Vol] 3.05 10*6/uL Low 4.20-6.00 [facility] Comment on above: Order Comment: Speci men Type: BLOOD SPECIMEN Ordering Facility: [facility] Address: [address] [place] [address] Performed By: #### 5 8410-2 #### [facility] CLIA [id number] [address] [place] [address] [place] WBC (Bld) [#/Vol] 10.98 10*3/uL Normal 3.70-11.00 [facility] Comment on above: Order Comment: Mariza gomes Type: BLOOD SPECIMEN Ordering Facility: [facility] Address: [address] [place] [address] Performed By: #### 5 8410-2 #### [facility] CLIA [id number] [address] [place] [address] [place] HbA1c (Bld)on 03-15-2025 Average glucose Estimated from glycated hemoglobin (Bld) [Mass/Vol] 103 mg/dL Normal [facility] Comment on above: Order Comment: Mariza gomes Type: BLOOD SPECIMENOrdering Facility: [facility] Address: [address] [place] [address] Result Comment: eAG: (Estimated average glucose) is a calculated value from HgbA1c and is bank representative of the average blood glucose level in the last 2-3 month period. Performed By: #### 5 5454-3 ####[facility] [id number] [place] [address] [place] HbA1c (Bld) [Mass fraction] 5.2 % Normal 4.3-5.6 [facility] Comment on above: Order Comment: Mariza gomes Type: BLOOD SPECIMENOrdering Facility: [facility] Address: [address] [place] [address] Result Comment: Amer [place] Diabetes Association guidelines indicate that patients with HgbA1c in the range 5.7-6.4% are at increased risk for development of diabetes, and intervention by lifestyle modification may be beneficial. HgbA1c greater or equal to 6.5% is considered diagnostic of diabetes. Performed By: #### 5 5454-3 ####[facility] [id number] [place] [id number] [place] Echo Completeon 03-11-2025 Echo Complete [facility] [address] [place] [address] Echo Complete 03/11/25 1008 MR#: [id number] Acct: [id number] Name: MARIE HUTSON Rep #: [id number] : 1950 75 From: Rubio Simeon MD Attending Dr: Dr. Rubio Simeon MD Status: REG I Ordering Dr: Rubio Simeon MD Date: 03/11/25 Location: [facility] Sex: M C Admitted: Reason For Study Reason For Study: CAD, Mitral regurgitation Procedure This was a 2D Doppler, Color Flow transthoracic echocardiogram. Exam performed in department. Left Ventricle Normal LV size. Mild concentric left ventricular hypertrophy. The LV systolic function is normal. EF is 65 %. Stage II diastolic dysfunction with elevated left atrial filling pressures. Right Ventricle Normal right ventricle. Atria The left atrium is severely enlarged. Normal right atrium. Mitral Valve Mild mitral annular calcification. Mild (1+) mitral valve insufficiency. Tricuspid Valve Mild tricuspid valve insufficiency. Right ventricular systolic pressure estimated to be 54 mmHg. Aortic Valve Aortic sclerosis, no stenosis. Pulmonic Valve The pulmonic valve is not well visualized. Great Vessels Moderately calcified aortic root. Pericardium/Pleural No pericardial effusion. MMode/2D Measurements Calculations LVIDd: 5.2 cm IVSd: 1.3 cm LVOT diam: 2.1 cm LVIDs: 3.3 cm LVPWd: 1.3 cm LVOT area: 3.6 cm2 RVDd: 3.9 cm FS: 37.1 % Ao root diam: 3.6 cm LAV(MOD-bp): 101.5 ml LVAd ap4: 38.7 cm2 LA dimension: 5.6 cm LAV(MOD-bp) Indexed: 50.2 ml/m2 LVLd ap4: 9.3 cm LAV(MOD-sp2): 91.6 ml EDV(MOD-sp4): 135.3 ml LAV(MOD-sp4): 105.0 ml EDV(sp4-el): 136.8 ml LVAs ap4: 18.5 cm2 LVLs ap4: 7.8 cm ESV(MOD-sp4): 39.2 ml ESV(sp4-el): 37.2 ml EF(MOD-sp4): 71.0 % EF(sp4-el): 72.8 % LVAd ap2: 35.2 cm2 SV(MOD-sp4): 96.1 ml SV(MOD-sp2): 79.3 ml LVLd ap2: 9.0 cm SI(MOD-sp4): 47.5 ml/m2 SI(MOD-sp2): 39.2 ml/m2 EDV(MOD-sp2): 115.7 ml EDV(sp2-el): 117.4 ml LVAs ap2: 17.9 cm2 LVLs ap2: 7.6 cm ESV(MOD-sp2): 36.5 ml ESV(sp2-el): 35.6 ml EF(MOD-sp2): 68.5 % SV(sp4-el): 99.6 ml LA dimension(2D): 5.1 cm LA A4 area: 29.9 cm2 RA A4 area: 19.3 cm2 TAPSE: 2.2 cm Time Measurements MV dec time: 0.29 sec Doppler Measurements Calculations MV E max usama: 119.4 cm/sec Lat Peak E' Usama: 7.2 cm/sec Med Peak E' Usama: 4.7 cm/sec MV A max usama: 86.8 cm/sec E/E' lat: 16.7 E/E' med: 25.5 MV E/A: 1.4 Ao V2 max: 180.3 cm/sec LV V1 max: 143.9 cm/sec MV dec slope: 409.7 cm/sec2 Ao max P.0 mmHg LV V1 max P.3 mmHg Ao V2 mean: 110.3 cm/sec LV V1 mean P.3 mmHg Ao mean P.8 mmHg LV V1 mean: 98.0 cm/sec Ao V2 VTI: 43.5 cm LV V1 VTI: 37.3 cm AV (velocity ratio): 0.86 MOHINI(I,D): 3.1 cm2 MOHINI(V,D): 2.8 cm2 SV(LVOT): 133.2 ml PA V2 max: 124.6 cm/sec TR max usama: 311.2 cm/sec TR max P.7 mmHg ECHO/Echo Complete Interpretation Summary Mild concentric left ventricular hypertrophy. The LV systolic function is normal. EF is 65 %. Stage II diastolic dysfunction with elevated left atrial filling pressures. The left atrium is severely enlarged. Mild (1+) mitral valve insufficiency. Mild tricuspid valve insufficiency. Right ventricular systolic pressure estimated to be 54 mmHg. Aortic sclerosis, no stenosis. Moderately calcified aortic root. Ordering Physician: Rubio Simeon Referring Physician: Sher Jules M.D. Performed By: Rupa Ramires, RUBENCS 03/11/25 1210 Date Rubio Simeon MD CC: Dr. Rubio Simeon MD; Dr. Sher Jules MD Date Dictated: 03/11/25 1008 Date Transcribed: 03/11/25 1210 Strapping Machine Tender: Signed Normal [facility] Echocardiogram study reportO rdered By: Rubio Simeon on 03-11-2025 Study report [facility] [address] [place] [address] Echo Complete 03/11/25 1008 MR#: [id number] Acct: [id number] Name: MARIE HUTSON Rep #:[id number] : 1950 75 From: Rubio Simeon MD Attending Dr: Dr. Rubio Simeon MD Status: REG CLI Ordering Dr: Rubio Simeon MD Date: Location: [facility] Sex: M C Admitted: Reason For Study Reason For Study: CAD, Mitral regurgitation Procedure This was a 2D Doppler, Color Flow transthoracic echocardiogram. Exam performed in department. Left Ventricle Normal LV size. Mild concentric left ventricular hypertrophy. The LV systolic function is normal. EF is 65 %. Stage II diastolic dysfunction with elevated left atrial filling pressures. Right Ventricle Normal right ventricle. Atria The left atrium is severely enlarged. Normal right atrium. Mitral Valve Mild mitral annular calcification. Mild (1+) mitral valve insufficiency. Tricuspid Valve Mild tricuspid valve insufficiency. Right ventricular systolic pressure estimated to be 54 mmHg. Aortic Valve Aortic sclerosis, no stenosis. Pulmonic Valve The pulmonic valve is not well visualized. Great Vessels Moderately calcified aortic root. Pericardium/Pleural No pericardial effusion. MMode/2D Measurements & Calculations LVIDd: 5.2 cm IVSd: 1.3 cm LVOT diam: 2.1 cm LVIDs: 3.3 cm LVPWd: 1.3 cm LVOT area: 3.6 cm2 RVDd: 3.9 cm FS: 37.1 % Ao root diam: 3.6 cm LAV(MOD-bp): 101.5 ml LVAd ap4: 38.7 cm2 LA dimension: 5.6 cm LAV(MOD-bp) Indexed: 50.2 ml/m2 LVLd ap4: 9.3 cm LAV(MOD-sp2): 91.6 ml EDV(MOD-sp4): 135.3 ml LAV(MOD-sp4): 105.0 ml EDV(sp4-el): 136.8 ml LVAs ap4: 18.5 cm2 LVLs ap4: 7.8 cm ESV(MOD-sp4): 39.2 ml ESV(sp4-el): 37.2 ml EF(MOD-sp4): 71.0 % EF(sp4-el): 72.8 % LVAd ap2: 35.2 cm2 SV(MOD-sp4): 96.1 ml SV(MOD-sp2): 79.3 ml LVLd ap2: 9.0 cm SI(MOD-sp4): 47.5 ml/m2 SI(MOD-sp2): 39.2 ml/m2 EDV(MOD-sp2): 115.7 ml EDV(sp2-el): 117.4 ml LVAs ap2: 17.9 cm2 LVLs ap2: 7.6 cm ESV(MOD-sp2): 36.5 ml ESV(sp2-el): 35.6 ml EF(MOD-sp2): 68.5 % SV(sp4-el): 99.6 ml LA dimension(2D): 5.1 cm LA A4 area: 29.9 cm2 RA A4 area: 19.3 cm2 TAPSE: 2.2 cm Time Measurements MV dec time: 0.29 sec Doppler Measurements & Calculations MV E max usama: 119.4 cm/sec Lat Peak E' Usama: 7.2 cm/sec Med Peak E' Usama: 4.7 cm/sec MV A max usama: 86.8 cm/sec E/E' lat: 16.7 E/E' med: 25.5 MV E/A: 1.4 Ao V2 max: 180.3 cm/sec LV V1 max: 143.9 cm/sec MV dec slope: 409.7 cm/sec2 Ao max P.0 mmHg LV V1 max P.3 mmHg Ao V2 mean: 110.3 cm/sec LV V1 mean P.3 mmHg Ao mean P.8 mmHg LV V1 mean: 98.0 cm/sec Ao V2 VTI: 43.5 cm LV V1 VTI: 37.3 cm AV (velocity ratio): 0.86 MOHINI(I,D): 3.1 cm2 MOHINI(V,D): 2.8 cm2 SV(LVOT): 133.2 ml PA V2 max: 124.6 cm/sec TR max usama: 311.2 cm/sec TR max P.7 mmHg ECHO/Echo Complete Interpretation Summary Mild concentric left ventricular hypertrophy. The LV systolic function is normal. EF is 65 %. Stage II diastolic dysfunction with elevated left atrial filling pressures. The left atrium is severely enlarged. Mild (1+) mitral valve insufficiency. Mild tricuspid valve insufficiency. Right ventricular systolic pressure estimated to be 54 mmHg. Aortic sclerosis, no stenosis. Moderately calcified aortic root. Ordering Physician: Rubio Simeon Referring Physician: Sher Jules M.D. Performed By: Rupa Ramires, [facility] 03/11/25 1210 Date _ Rubio Simeon MD CC: Dr. Rubio Simeon MD; Dr. Sher Jules MD ~ Date Dictated: 03/11/25 1008 Date Transcribed: 03/11/25 1210 Strapping Machine Tender: Signed [facility] Work Phone: [employer] 02-23-2025 CNOV Office Visit (PODIWS ) MARIE HUTSON ([id number]) 1950 M Date Time Provider Department 02/23/25 10:00 AM [facility] PODIWS During your visit today, we recorded the following information about you: Cheryle Merritt LPN 02/23/2025 12:47 PM Signed AMB ROOMING INTAKE FLOWSHEET DATA Patient presents with: Left Foot - Established Patient, Follow Up, Diabetic Foot Care, Numbness Right Foot - Established Patient, Follow Up, Diabetic Foot Care, Numbness FAVIAN Mendoza Matthew 02/23/2025 10:45 AM Signed Diabetes Foot Care Instructions When you have diabetes, proper foot care is very important. Poor foot care may lead to amputation of a foot or leg. As a person with diabetes, you are more vulnerable to foot problems, because diabetes can damage your nerves and reduce blood flow to your feet. Here are some diabetes foot care tips to follow: Wash and Dry Your Feet Daily Use mild soaps Use warm water Pat your skin dry; do not rub. Thoroughly dry your feet. After washing, use lotion on your feet to prevent cracking. Do not put lotion between your toes. Examine Your Feet Each Day Check the tops and bottoms of your feet. Have someone else look at your feet if you cannot see them. Check for dry, cracked skin. Look for blisters, cuts, scratches, or other sores. Check for redness, increased warmth, or tenderness when touching any area of your feet. Check for ingrown toenails, corns, and calluses. If you get a blister or sore from your shoes, do not pop it. Apply a bandage and wear a different pair of shoes. Take Care of Your Toenails Cut toenails after bathing, when they are soft. Cut toenails straight across and smooth with a nail file. Avoid cutting into the corners of toes. Do not cut cuticles. If you have neuropathy (or decreased sensation in your feet) a briar cutter should always cut your toenails. Be Careful When Exercising Walk and exercise in comfortable shoes. Do not exercise when you have open sores on your feet. Protect Your Feet With Shoes and Socks Never go barefoot. Always protect your feet by wearing shoes or hard-soled slippers or footwear. Avoid shoes with high heels and pointed toes. Avoid shoes that expose your toes or heels (such as open-toed shoes or sandals). These types of shoes increase your risk for injury and potential infections. Try on new footwear with the type of socks you usually wear. Do not wear new shoes for more than an hour at a time. Change your socks daily. Look and feel inside your shoes before putting them on to make sure there are no foreign objects or rough areas. Avoid tight socks. Wear natural-fiber socks (cotton, wool, or a cotton-wool blend). Wear special shoes if your health care provider recommends them. Wear shoes/boots that will protect your feet from various weather conditions (cold, moisture, etc.). Make sure your shoes fit properly. If you have neuropathy (nerve damage), you may not notice that your shoes are too tight. Perform the footwear test described below. Footwear Test Use this simple test to see if your shoes fit correctly: Stand on a piece of paper. (Make sure you are standing and not sitting, because your foot changes shape when you stand.) Trace the outline of your foot. Trace the outline of your shoe. Compare the tracings: Is the shoe too narrow? Is your foot crammed into the shoe? The shoe should be at least 1/2 inch longer than your longest toe and as wide as your foot. Proper Shoe Choices The following types of shoes are best for people with diabetes Closed toes and heels Leather uppers without a seam inside At least 1/2 inch extra space at the end of your longest toe Inside of shoe should be soft with no rough areas Outer sole should be made of stiff material Shoes should be at least as wide as your feet Tips for Foot Care in Diabetes Don't wait to treat a minor foot problem if you have diabetes. Follow your health care provider's guidelines and first aid guidelines. Report foot injuries and infections to your health care provider immediately. Check water temperature with your elbow, not your foot. Do not use a heating pad on your feet. Do not cross your legs. Do not self-treat your corns, calluses, or other foot problems. Go to your health care provider or briar cutter to treat these conditions. Continue to check your feet daily for any sores, changes, or signs of infection and call immediately if you notice any issues. Keep your feet protected at all times by avoiding barefoot walking and wearing well-fitted, protective shoes. Keep your toenails trimmed; if you notice any nails rubbing against your skin, consider placing cotton or a protective pad between your toes. Regularly moisturize your feet with lotion to help prevent dryness and cracking. Your next follow-up visit is s (more content not included)... Normal [facility] Cardiology Visit Reporton Cardiology Visit Report [facility] [address] [place] [address] OFFICE VISIT Date of Service: 02/11/25 MR#: [id number] Acct: [id number] Name: MARIE HUTSON Rep #: [id number] : 1950 Provider: Dr. Rubio Simeon MD Age/Sex: 75/M [place] [facility] [place] Status: Signed HPI HPI History of Present Illness Details: This gentleman with history of coronary artery disease, status post CABG, status post percutaneous intervention to the distal RCA and to the left main coronary artery into the left circumflex, is here for follow-up visit. Denies any complaints today. No angina. No shortness of breath. No orthopnea or PND. Occasional ankle edema. 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: No Accompanied by: Self Is patient in pain?: No Allergies No Known Allergies Allergy (Verified 02/11/25 13:23) Medications ???Medication ???Instructions ???Recorded ???Confirmed ???Type multivitamin with folic acid 400 1 tab PO DAILY vitamin 04/18/16 History mcg tablet (Thera) amlodipine 10 mg tablet 10 mg PO DAILY 01/28/24 02/11/25 H istory clonidine HCl 0.2 mg tablet 0.2 mg PO BID 01/28/24 02/11/25 Hi story gabapentin 300 mg capsule 300 mg PO DAILY 01/28/24 02/11/25 History lisinopril 40 mg tablet 40 mg PO BID 01/28/24 02/11/25 His tory aspirin 81 mg tablet,delayed 81 mg PO BREAKFAST #30 tabs 02/11/25 Rx release clopidogrel 75 mg tablet 75 mg PO QDAY 05/28/24 02/11/25 Hi story metformin 500 mg tablet 1,000 mg PO BID diabetes 05/28/24 02/11/25 History nitroglycerin 0.3 mg sublingual 0.3 mg sublingual Q5M PRN angina 0 05/28/24 02/11/25 History tablet atorvastatin 40 mg tablet 40 mg PO QPM #90 tabs 09/14/24 Rx metoprolol tartrate 25 mg tablet 12.5 mg PO BID 09/14/24 02/11/25 H istory hydralazine 50 mg tablet 50 mg PO TID #270 tabs 12/04/24 Rx Ejection fraction %: 60 Have you fallen in the past year?: No PFSH Medical History Atherosclerotic heart disease of hoh coronary artery without angina pectoris Branch retinal artery occlusion CAD (coronary artery disease) Chest pain Diabetes Diabetes mellitus, type 2 Dyslipidemia Essential (primary) hypertension Former tobacco use Hyperlipemia Hypertension NSTEMI (non-ST elevated myocardial infarction) Obesity Peripheral vascular disease, unspecified Type 2 diabetes mellitus without complications Surgical History Failed CABG (coronary artery bypass graft) H/O angioplasty H/O coronary angioplasty History of coronary artery bypass graft x 3 Stented coronary artery (01/29/24) Family History Mother Cancer Father CVA (cerebral vascular accident) Social History household members: spouse Smoking Status: Former smoker alcohol intake: current alcohol intake frequency: a few times a month substance use type: does not use ROS Const Const: Negative for fatigue, weakness, headache(s) or weight gain ENT ENT: Negative for headache(s), dizziness, Nosebleed/epistaxis or balance problems Cardio Chest Pain: No Palpitations: No Edema: None (wears compression stockings) Muscle aches with walking: None Resp Respiratory: Negative for SOB with activity, SOB at rest or SOB orthopnea SOB lying down GI GI: Negative nausea, vomiting or heartburn Musc Musc: Negative for muscle aches/ myalgia, muscle weakness, joint pain or balance problems Neuro Neuro: Negative for dizziness, lightheadedness, near syncope, syncope, headache(s) or weakness Endo Endo: Negative for fatigue Cardiology Exam Const Appearance: comfortable and no acute distress Nutritional Appearance: well nourished Neck Neck: no JVD Carotids: bruit Right Chest Auscultation: Bilateral: Clear to Auscultation Cardio Rate: regular rate Rhythm: regular rhythm Heart sounds: S1 normal and S2 normal Soft murmur audible at the base. Neuro General: patient alert, patient awake and patient oriented x3 Extremities Lower Extremity Edema: +1: Bilateral Supplemental Info Supplemental Information Echocardiogram 01/28/2024: Interpretation Summary The estimated ejection fraction is 60 %. Stage 2 diastolic dysfunction. Segmental dysfunction with preserved ejection fraction (see wall motion). Mild concentric left ventricular hypertrophy. The right atrium is mil (more content not included)... Normal [facility] Progress Noteon 12-29-2024 Progress Note 12/29/24 Community Health Worker Patient active with: [facility] Daniel Chart review completed. Follow up Appointments NONE Called patient and identified role and reason for call. Patient stated that he is doing good, and his follow ups are now with [facility]. He denies any concerns at this time. We inquired about any shortness of breath or pain, he denies. He refers taking all his medication as prescribed and denies need for refills. We also encouraged patient to reach out in case of any concern. Normal [facility] Progress Noteon 12-04-2024 Progress Note 12/04/24 Community Health Worker Patient active with: SAM Daniel Chart review completed. Follow up Appointments NONE Called patient and call was dropped, we did a second attempt and was unsuccessful. Unable to leave a voice message. Outreach scheduled Normal [facility] CNOVon 11-19-2024 CNOV Office Visit (PODIWS ) MARIE HUTSON ([id number]) 1950 M Date Time Provider Department 11/19/24 11:15 AM GOMEZ SCHWAB During your visit today, we recorded the following information about you: Cheryle Merritt LPN 11/19/2024 11:31 AM Signed AMB ROOMING INTAKE FLOWSHEET DATA Risk Screening Do you have concerns about personal safety or safety in the home?: No Patient presents with: Left Foot - Established Patient, Follow Up, Diabetic Foot Care Right Foot - Established Patient, Follow Up, Diabetic Foot Care Cheryle Merritt LPN Gomez Schwab 11/19/2024 11:18 AM Signed Diabetes Foot Care Instructions When you have diabetes, proper foot care is very important. Poor foot care may lead to amputation of a foot or leg. As a person with diabetes, you are more vulnerable to foot problems, because diabetes can damage your nerves and reduce blood flow to your feet. Here are some diabetes foot care tips to follow: Wash and Dry Your Feet Daily Use mild soaps Use warm water Pat your skin dry; do not rub. Thoroughly dry your feet. After washing, use lotion on your feet to prevent cracking. Do not put lotion between your toes. Examine Your Feet Each Day Check the tops and bottoms of your feet. Have someone else look at your feet if you cannot see them. Check for dry, cracked skin. Look for blisters, cuts, scratches, or other sores. Check for redness, increased warmth, or tenderness when touching any area of your feet. Check for ingrown toenails, corns, and calluses. If you get a blister or sore from your shoes, do not pop it. Apply a bandage and wear a different pair of shoes. Take Care of Your Toenails Cut toenails after bathing, when they are soft. Cut toenails straight across and smooth with a nail file. Avoid cutting into the corners of toes. Do not cut cuticles. If you have neuropathy (or decreased sensation in your feet) a briar cutter should always cut your toenails. Be Careful When Exercising Walk and exercise in comfortable shoes. Do not exercise when you have open sores on your feet. Protect Your Feet With Shoes and Socks Never go barefoot. Always protect your feet by wearing shoes or hard-soled slippers or footwear. Avoid shoes with high heels and pointed toes. Avoid shoes that expose your toes or heels (such as open-toed shoes or sandals). These types of shoes increase your risk for injury and potential infections. Try on new footwear with the type of socks you usually wear. Do not wear new shoes for more than an hour at a time. Change your socks daily. Look and feel inside your shoes before putting them on to make sure there are no foreign objects or rough areas. Avoid tight socks. Wear natural-fiber socks (cotton, wool, or a cotton-wool blend). Wear special shoes if your health care provider recommends them. Wear shoes/boots that will protect your feet from various weather conditions (cold, moisture, etc.). Make sure your shoes fit properly. If you have neuropathy (nerve damage), you may not notice that your shoes are too tight. Perform the footwear test described below. Footwear Test Use this simple test to see if your shoes fit correctly: Stand on a piece of paper. (Make sure you are standing and not sitting, because your foot changes shape when you stand.) Trace the outline of your foot. Trace the outline of your shoe. Compare the tracings: Is the shoe too narrow? Is your foot crammed into the shoe? The shoe should be at least 1/2 inch longer than your longest toe and as wide as your foot. Proper Shoe Choices The following types of shoes are best for people with diabetes Closed toes and heels Leather uppers without a seam inside At least 1/2 inch extra space at the end of your longest toe Inside of shoe should be soft with no rough areas Outer sole should be made of stiff material Shoes should be at least as wide as your feet Tips for Foot Care in Diabetes Don't wait to treat a minor foot problem if you have diabetes. Follow your health care provider's guidelines and first aid guidelines. Report foot injuries and infections to your health care provider immediately. Check water temperature with your elbow, not your foot. Do not use a heating pad on your feet. Do not cross your legs. Do not self-treat your corns, calluses, or other foot problems. Go to your health care provider or briar cutter to treat these conditions. Gomez Schwab 11/19/2024 11:31 AM Signed Last saw pcp: 11/13/24 Subjective: Patient presents to clinic c/o painful toenails. They state that the nails are especially painful with shoe gear and pressure. Patient states that nails b/l hallux are painful. Patient admits to being diabetic. No other pedal complaints at this time. Patient states no change in medications or medical history since last visit. Objective: Patien (more content not included)... Normal [facility] CNOVon 11-13-2024 CNOV Office Visit (INTMWS ) MARIE HUTSON ([id number]) 1950 M Date Time Provider Department 11/13/24 1:20 PM SHER JULES INTMWS During your visit today, we recorded the following information about you: Pulse Respiration Blood pressure Weight 60/minute 16/minute 132/62 87 kg Sher Jules MD 11/13/2024 1:56 PM Signed This note was created using [employer] Subjective Marie Hutson is a 74 year old male. He saw Dr. Simeon and proceeded with staged PCI and LISANDRO to his ramus intermedius and distal L main on 2023. He was to continue DAPT till 2024. Hydrochlorothiazide was discontinued. Hydralazine was added. His hypertension was better. Review of Systems Constitutional: Negative for fatigue and fever. Respiratory: Negative for chest tightness and shortness of breath. Cardiovascular: Negative for chest pain, palpitations and leg swelling. Neurological: Negative for dizziness and headaches. 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 Obesity, Class I, Bmi 30-34.9 Anemia Hyponatremia Social History Tobacco Use Smoking status: Former Current packs/day: 0.00 Average packs/day: 1 pack/day for 34.0 years (34.0 ttl pk-yrs) Types: Cigarettes Start date: 10/28/1968 Quit date: 10/28/2002 Years since quittin.0 Passive exposure: Past Smokeless tobacco: Never Vaping Use Vaping status: Never Used Substance Use Topics Alcohol use: Yes Alcohol/week: 30.0 standard drinks of alcohol Types: 30 Cans of Beer (12oz) per week Comment: 6 beers per day, sometimes less Drug use: Yes Frequency: 2.0 times per week Comment: marijuana Current Outpatient Medications Medication Sig atorvastatin (LIPITOR) 40 mg tablet Take 1 tablet by mouth daily at bedtime. For cholesterol. hydroCHLOROthiazide 25 mg tablet Take 1 tablet by mouth once daily. metoprolol tartrate, short acting, (LOPRESSOR) 25 mg tablet Take 0.5 tablets by mouth two times a day. gabapentin (NEURONTIN) 300 mg capsule Take 1 capsule by mouth daily at bedtime for 180 days. nitroglycerin sublingual (NITROQUICK) 0.3 mg SL tablet Dissolve 1 tablet under the tongue every 5 minutes as needed for chest pain. metFORMIN (GLUCOPHAGE) 500 mg tablet Take 2 tablets by mouth two times a day with meals. clopidogrel (PLAVIX) 75 mg tablet Take 1 tablet by mouth once daily. lisinopril (ZESTRIL) 40 mg tablet Take 1 tablet by mouth two times a day. amLODIPine (NORVASC) 10 mg tablet Take 1 tablet by mouth once daily. cloNIDine HCl (CATAPRES) 0.2 mg tablet Take 1 tablet by mouth two times a day. aspirin, enteric coated (ASPIRIN, ENTERIC COATED) 81 mg EC tablet Take 1 tablet by mouth once daily. therapeutic multivitamin tablet Take 1 tablet by mouth daily with breakfast. blood sugar diagnostic (ONE TOUCH ULTRA TEST) test strip Use as instructed blood sugar diagnostic (ONE TOUCH ULTRA TEST) test strip TEST BLOOD SUGARS ONCE DAILY lancets(ONE TOUCH ULTRASOFT LANCETS) Test blood sugar once daily. No current facility-administered medications for this visit. Objective BP 132/62 Pulse 60 Resp 16 Wt 87 kg (191 lb 12.8 oz) SpO2 98% BMI 27.52 kg/m? Physical Exam Constitutional: Appearance: Normal appearance. Eyes: Conjunctiva/sclera: Conjunctivae normal. Cardiovascular: Rate and Rhythm: Normal rate and regular rhythm. Heart sounds: S1 normal and S2 normal. Murmur heard. Pulmonary: Breath sounds: Normal breath sounds. Musculoskeletal: Right lower leg: No edema. Left lower leg: No edema. Neurological: Mental Status: He is alert. Assessment and Plan 1. Diabetic peripheral neuropathy (HCC) - ICD9: 250.60, 357.2, ICD10: E11.42 (primary diagnosis) - Controlled - Continue current medications - GABAPENTIN 300 MG CAPSULE 2. Essential hypertension - ICD9: 401.9, ICD10: I10 - Improving control - Continue current medications - HYDRALAZINE 50 MG TABLET 3. Anemia, unspecified type - ICD9: 285.9, ICD10: D64.9 Monitor. - COMPLETE BLOOD COUNT 4. Well controlled type 2 diabetes mellitus with neurological manifestations (HCC) - ICD9: 250.60, ICD10: E11.49 - Controlled - Continue current medications - BASIC METABOLIC PANEL - HEMOGLOBIN A1C 5. S/P drug eluting coronary stent placement - ICD9: V45.82, ICD10: Z95.5 2023. DAPT until 2024. Sher Jules MD Allergies As of Date: 11/13/2024 (No Known Allergies) Date Reviewed: 11/13/2024 Reviewed by: Geeta Sung MA - (more content not included)... Normal [facility] Progress Noteon 11-03-2024 Progress Note 11/03/24 1351 BPCI Late Drop? Program late drop? No BPCI Outreach Assessment Selection Which outreach assessment are you completing? 30 Day BPCI - 30 Day Outreach Did patient answer phone call? Yes Since you have been discharged from the facility, what do you feel the status of you condition is? Improving Do you have any concerns with your medication(s)? No Any complications with post discharge services? N/A Any concerns with your DME equipment? N/A Any questions about your condition you are unsure about that I can help clarify? No (Patient receiving his care from [facility]) EMR reviewed. Patient on BPCI Advanced: OP Patients Qualify for Cardiac Care and Cardiac Procedures from [facility] report 10/01/2024. EMR reviewed. Patient enrolled in [facility] Cardiac 90-day BPCI Program post-hospital discharge 09/30/24 Dx: PCI with IVL, LISANDRO to Left Main->Ramus Right radial artery used. Patient has a past medical history of DM with neuropathy, HTN, HLD, family history of premature CAD, prior tobacco use (quit), ocular TIA. He had a CABG in 2012. 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 WRIGHT to LAD was patent. At that time distal RCA was stented. He also had a severely stenotic calcified distal left main and ostial ramus. 30-day BPCI outreach made spoke with patient whom reports doing well following with [facility] for his care and denies any health concerns or questions at this time. Patient agreeable to future outreaches to complete BPCI program. Normal [facility] CR - History AND Physicalon 10-20-2024 CR - History & Physical [facility] Cardiac Rehab [address] [place] [address] CR - History Physical MR#: [id number] Acct: [id number] Name: MARIE HUTSON Rep #: [id number] : 1950 74 From: Curtis Newell BS, RVT PCP: Dr. Sher Jules MD DOS: 10/20/24 CR - History Physical General Arrival date:: 10/20/24 Arrival time:: 08:14 Date of Referral:: 10/12/24 Date of CR Evaluation:: 10/20/24 Referring Physician: Dr. Simeon Primary Diagnosis: PTCA History of Present Cardiac Event Onset Date PTCA or coronary stenting:: Yes (09/30/24 onset) Medications Ambulatory Orders ???Medication ???Instructions ???Recorded multivitamin with folic acid 400 1 tab PO DAILY vitamin 04/18/16 mcg tablet (Thera) amlodipine 10 mg tablet 10 mg PO DAILY 01/28/24 clonidine HCl 0.2 mg tablet 0.2 mg PO BID 01/28/24 gabapentin 300 mg capsule 300 mg PO DAILY 01/28/24 lisinopril 40 mg tablet 40 mg PO BID 01/28/24 aspirin 81 mg tablet,delayed 81 mg PO BREAKFAST #30 tabs 01/30/24 release clopidogrel 75 mg tablet 75 mg PO QDAY 05/28/24 metformin 500 mg tablet 1,000 mg PO BID diabetes 05/28/24 nitroglycerin 0.3 mg sublingual 0.3 mg sublingual Q5M PRN angina 05/28/24 tablet atorvastatin 40 mg tablet 40 mg PO QPM #90 tabs 09/14/24 metoprolol tartrate 25 mg tablet 12.5 mg PO BID 09/14/24 Allergies Allergies No Known Allergies Allergy (Verified 10/12/24 13:36) Sleep Disorder Evaluation Hx of Sleep Apnea: No Do you snore loudly (louder than talking or can be heard through closed doors)?: No Do you often feel tired/ fatigued/ sleepy during daytime?: No Has anyone observed you stop breathing during sleep?: No History of Hypertension (for STOP score): Yes STOP Results: Negative Advanced Directives Advanced Directives Power of Auto Body Repair Estimator: No Living Will: No Advance Directives Information Provided: No Advance Directives on File: No DNR Order?:: No Past Medical History Covid-19 Screening Physicial Symptoms Other Clinical Concerns Exposure Risk Pertinent Comorbidities 65 years or older:: Yes Has a serious heart condition:: Yes Diabetic:: Yes Past Medical Illness Medical History CAD (coronary artery disease) Diabetes Dyslipidemia Hypertension Type 2 diabetes mellitus without complications Peripheral vascular disease, unspecified Essential (primary) hypertension Atherosclerotic heart disease of hoh coronary artery without angina pectoris Diabetes mellitus, type 2 Former tobacco use Obesity Chest pain NSTEMI (non-ST elevated myocardial infarction) Branch retinal artery occlusion Hyperlipemia Past Surgical History Surgical History H/O coronary angioplasty Stented coronary artery (01/29/24) History of coronary artery bypass graft x 3 H/O angioplasty Failed CABG (coronary artery bypass graft) Family History Summary Family History Mother Cancer Father CVA (cerebral vascular accident) Social History Smoking History Smoking Status: Former smoker Years Smokin (stopped in ) Occupation Occupation (List type of work in comments):: Retired Hobbies, Recreation, Social Activities Hobbies: Woodworking Recreational Activities: I am able to engage in all my recreational activities Social Environment Status Marital Status: Current Living Arrangements Living Environment:: Spouse Children How many children do you have?: 2 Do any of your children live nearby?: Yes Safety Do you feel safe in your surroundings?: Yes Assistance Do you need any assistance at home?: no Review of Systems Review of Systems Hints Review of Present Symptoms: Reports PVD, Dizziness/Lightheadedne ss, Appetite - Normal, Appetite - Special Diet and Sleep - Normal; Denies Shortness of Breath at Rest, Shortness of Breath with Exertion, Operative Discomfort, Angina, Wound Healing, Fatigue, Heart Arrhythmia/Irregulariti es or Sexual Changes Pain Is Patient Pain Free?: No Risk Factor Assessment Chief Complaint Chief Complaint: PTCA Vital Signs Pulse Ox: 97 Blood Pressure: 162/69 Pulse Pulse Rate: 52 Hypertension Blood Pressure Sitting - Right Arm: 162/69 Diabetes Diabetic History: Type II Nutrition Referral for Diabetes: No Obesity Height: 5 ft 10 in Weight:: 192 lb Weight in Pounds: 192.0 lbs Body Mass Index (BMI): 27.5 Physical Inactivity Physical Inactivity: Recreational activity Risk Stratification Risk Guidelines: Lowest Risk: Risk Factor for Smoking, Moderate Risk: Risk Factor for Obesity, Risk Factor for Sedentary Lifestyle and Risk Factor for Depression and Highest Risk: Risk Factor for Dyslipidemia, Risk Factor for Diabetes and Risk Factor for Hypertension For S (more content not included)... Normal [facility] Progress Noteon 10-15-2024 Progress Note 10/15/24 1321 BPCI Late Drop? Program late drop? No BPCI Outreach Assessment Selection Which outreach assessment are you completing? 14 Day BPCI - 14 Day Outreach Did patient answer phone call? Yes Have you experienced any issues, decline or backsliding in your condition? No Did you have any issues with attending your follow up appointment?? No Were any new complications found at your provider appointment? No Did your provider change any of your medication(s) or treatment(s)? No Any complications with scheduling your next appointment with your provider? No Do you feel there are any barriers to you progressing toward your post d/c goals? No Are you missing any Post discharge Services? N/A Any issues with the services provided? N/A Any concerns with DME equipment? N/A Are there any additional items you need or questions in your condition that you need clarified? No Have you had any thoughts of returning to the hospital/SNF? No Reminded patient about 30 day window to re-admit to SNF/C if needed. Done EMR reviewed. Patient on BPCI Advanced: OP Patients Qualify for Cardiac Care and Cardiac Procedures from [facility] report 10/01/2024. EMR reviewed. Patient enrolled in [facility] Cardiac 90-day BPCI Program post-hospital discharge 09/30/24 Dx: PCI with IVL, LISANDRO to Left Main->Ramus Right radial artery used. Patient has a past medical history of DM with neuropathy, HTN, HLD, family history of premature CAD, prior tobacco use (quit), ocular TIA. He had a CABG in 2012. 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 WRIGHT to LAD was patent. At that time distal RCA was stented. He also had a severely stenotic calcified distal left main and ostial ramus. 14-day BPCI outreach made spoke with patient introduced self and role patient reports doing well feeling good post PCI procedure denies health concerns or questions encouraged patient to reach out with any concerns. Future outreach scheduled. [facility] Carotid Duplex Ultrasoundon 10-14-2024 Carotid Duplex Ultrasound [facility] [address] [place] [address] Carotid Duplex Ultrasound 10/14/24 0951 MR#: [id number] Acct: [id number] Name: MARIE HUTSON Rep #: [id number] : 1950 74 From: Karl Wan MD Attending Dr: Dr. Rubio Simeon MD Status: REG CLI Ordering Dr: Rubio Simeon MD Date: 10/14/24 Location: [facility] Sex: M C Admitted: Reason For Study: Bruit Rt. Velocities/BP Lt. Velocities/BP Prox CCA 78.1/0.0 cm/sec. Prox CCA 104.5/16.7 cm/sec. Mid CCA 83.0/13.0 cm/sec. Mid CCA 106.7/12.3 cm/sec. Dist CCA 69.5/11.8 cm/sec. Dist CCA 76.0/13.9 cm/sec. Prox ICA 97.9/15.7 cm/sec. Prox ICA 175.0/25.9 cm/sec. Mid ICA 83.3/13.9 cm/sec. Mid ICA 123.5/13.9 cm/sec. Dist ICA 86.9/17.5 cm/sec. Dist ICA 60.1/10.9 cm/sec. Rt. ICA/CCA = 1.2. Lt. ICA/CCA = 1.6. Prox ECA 154.5/6.7 cm/sec. Prox ECA 346.5/14.4 cm/sec. Rt. Vert. 68.3/9.3 cm/sec. Lt. Vert. 30.2/3.1 cm/sec. Right Extracranial There is heterogeneous, irregular atherosclerotic plaque noted in the right common carotid artery. There is heterogeneous, irregular atherosclerotic plaque noted in the right internal carotid artery. There is heterogeneous, irregular atherosclerotic plaque noted in the right external carotid artery. Antegrade flow is noted in the right vertebral artery. Left Extracranial There is heterogeneous, irregular atherosclerotic plaque noted in the left common carotid artery. There is heterogeneous, irregular atherosclerotic plaque noted in the left internal carotid artery. There is heterogeneous, irregular atherosclerotic plaque noted in the left external carotid artery. Antegrade flow is noted in the left vertebral artery. Procedure Carotid Duplex [id number]. This is a Carotid Duplex examination using B-mode, color flow and specral Doppler. Exam performed in department. VL/Carotid Duplex Ultrasound Interpretation Summary Mild (<50%) stenosis right extracranial internal carotid. Moderate (50-69%) stenosis left extracranial internal carotid. Patent and antegrade vertebrals bilaterally. Ordering Physician: Rubio Simeon Referring Physician: Sher Jules M.D. Performed By: John Hinson RVT and Student 10/15/2423 Date Karl Wan MD CC: Dr. Rubio Simeon MD; Dr. Sher Jules MD Date Dictated: 10/14/24 0951 Date Transcribed: 10/15/24722 Strapping Machine Tender: Signed Normal [facility] Renal Artery Duplex Ultrasou ndon 10-14-2024 [facility] [address] [place] [address] Renal Artery Duplex Ultrasound 10/14/24 0846 MR#: [id number] Acct: [id number] Name: MARIE HUTSON Rep #: [id number] : 1950 74 From: Karl Wan MD Attending Dr: Dr. Rubio Simeon MD Status: REG CLI Ordering Dr: Rubio Simeon MD Date: 10/14/24 Location: [facility] Sex: M C Admitted: Reason For Study: HTN Right Renal Artery Left Renal Artery Right renal artery ostium Left renal artery ostium 80.6/12.7 156.5/18.0 RSV/EDV. PSV/EDV. Right renal artery proximal Left renal artery proximal PSV/EDV 75.3/12.4 PSV/EDV. 149.0/39.3 . Right renal artery mid 81.3/11.7 Left renal artery mid 164.6/15.7 PSV/EDV. PSV/EDV . Right renal artery distal Left renal artery distal 191.0/24.0 124.4/11.8 PSV/EDV. PSV/EDV. Right RAR 1.75. Left RAR 2.69. Right Renal Parenchyma Left Renal Parenchyma Upper Pole Medula 51.4/5.4 PSV/EDV. Left upper pole medulla 36.1/7.6 Right upper pole medulla EDR 0.1 . PSV/EDV . Right upper pole medulla R.I. Left upper pole medulla EDR 0.2 . 0.90 . Left upper pole medulla R.I. 0.79 . Upper [place] Cortx 32.8/7.6 PSV/EDV. UP Cortex 36.1/8.9 PSV/EDV. Right upper pole cortex EDR 0.2 . Left upper pole cortex EDR 0.2 . Right upper pole cortex R.I. 0.77 . Left upper pole cortex R.I. 0.75 . Right lower Pole medulla 46.0/4.3 Left lower Pole medulla 38.7/8.9 PSV/EDV . PSV/EDV . Right lower pole medulla EDR 0.1 . Left lower pole medulla EDR 0.2 . Right lower pole medulla R.I. Left lower pole medulla R.I. 0.77 . 0.91 . Lower Pole Cortx 27.1/11.5 PSV/EDV. Lower Pole Cortex 39.4/5.4 PSV/EDV. Left lower pole cortex EDR 0.4 . Right lower pole cortex EDR 0.1 . Left lower pole cortex R.I. 0.57 . Right lower pole cortex R.I. 0.86 . Left Renal Hilar Right Renal Hilar LT Hilar avg 108.5/13.6 PSV/EDV . Right Hilar avg 129.3/10.8 PSV/EDV. Left hilar acceleration time 0.10 Right hilar acceleration time 0.04 m/sec. m/sec. Left Renal Dimensions Right Renal Dimensions Left kidney size 11.50 cm . Right kidney size 10.18 cm . Left cortical dimension 1.37 cm . Right cortical dimension 2.01 cm . Aorta Proximal abdominal aorta 1.8 cm . Distal abdominal aorta 1.5 cm . Proximal abdominal aorta peak systolic velocity is 107.6 cm/sec . Distal abdominal aorta peak systolic velocity is 71.0 cm/sec . VL/Renal Artery Duplex Ultrasound Interpretation Summary Right renal artery patent with normal velocities and no evidence of stenosis. Left renal artery patent with < 60% stenosis. Right renal vein patent. Left renal vein patent. Right kidney normal in size. Left kidney normal in size. Ordering Physician: Rubio Simeon Referring Physician: Sher Jules M.D. Performed By: John Hinson RVT and Student 10/15/24 0725 Date Karl Wan MD CC: Dr. Rubio Simeon MD; Dr. Sher Jules MD Date Dictated: 10/14/24 0846 Date Transcribed: 10/15/2425 Strapping Machine Tender: Signed Normal [facility] Cardiology Visit Reporton Cardiology Visit Report [facility] [address] [place] [address] OFFICE VISIT Date of Service: 10/12/24 MR#: [id number] Acct: [id number] Name: MARIE HUTSON Rep #: [id number] : 1950 Provider: TANIYA moise Age/Sex: 74/M Location: [facility] Status: Signed HPI HPI History of Present Illness Details: This gentleman with history of coronary artery disease status post CABG and status post drug-eluting stent to the distal RCA. He underwent coronary angiography CT scan in June 2024 that showed severely diseased distal left main disease. He was seen at [facility] with Dr. Collins for continual chest discomfort in September 2024. Left main showed 90% distal stenosis and 70% proximal stenosis and 95% mid to distal segment stenosis of ramus intermedius, and mild to moderate mid segment disease of the left circumflex. He proceeded with IVUS guided PCI using intravascular lithotripsy of the mid to distal left main into the proximal to mid ramus intermedius with drug- eluting stent. He denies chest, arm, jaw, or neck discomfort. He denies palpitations. He denies bilateral lower extremity edema. He denies claudication. He denies shortness of breath with activity, shortness of breath at rest, orthopnea, or PND. He denies chronic cough. He denies significant, sudden weight gain. He denies lightheadedness, dizziness, near-syncope, or syncope. He denies blood in urine, blood in stool, or epistaxis. He denies fever with chills. He denies myalgia. He denies fatigue. His exercise level has remained stable. 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: No Accompanied by: Self Is patient in pain?: No Allergies No Known Allergies Allergy (Verified 10/12/24 13:36) Medications ???Medication ???Instructions ???Recorded ???Confirmed ???Type multivitamin with folic acid 400 1 tab PO DAILY vitamin 04/18/16 10/12/24 History mcg tablet (Thera) amlodipine 10 mg tablet 10 mg PO DAILY 01/28/24 10/12/24 History clonidine HCl 0.2 mg tablet 0.2 mg PO BID 01/28/24 10/12/24 History gabapentin 300 mg capsule 300 mg PO DAILY 01/28/24 10/12/24 History lisinopril 40 mg tablet 40 mg PO BID 01/28/24 10/12/24 History aspirin 81 mg tablet,delayed 81 mg PO BREAKFAST #30 tabs 01/30/24 10/12/24 Rx release clopidogrel 75 mg tablet 75 mg PO QDAY 05/28/24 10/12/24 History metformin 500 mg tablet 1,000 mg PO BID diabetes 05/28/24 10/12/24 History nitroglycerin 0.3 mg sublingual 0.3 mg sublingual Q5M PRN angina 05/28/24 10/12/24 History tablet atorvastatin 40 mg tablet 40 mg PO QPM #90 tabs 09/14/24 10/12/24 Rx metoprolol tartrate 25 mg tablet 12.5 mg PO BID 09/14/24 10/12/24 History Have you fallen in the past year?: No Nurse's Note: Pt does not have a medication list, states nothing has changed [facility] Medical History CAD (coronary artery disease) Diabetes Dyslipidemia Hypertension Type 2 diabetes mellitus without complications Peripheral vascular disease, unspecified Essential (primary) hypertension Atherosclerotic heart disease of hoh coronary artery without angina pectoris Diabetes mellitus, type 2 Former tobacco use Obesity Chest pain NSTEMI (non-ST elevated myocardial infarction) Branch retinal artery occlusion Hyperlipemia Surgical History H/O coronary angioplasty Stented coronary artery (01/29/24) History of coronary artery bypass graft x 3 H/O angioplasty Failed CABG (coronary artery bypass graft) Family History Mother Cancer Father CVA (cerebral vascular accident) Social History household members: spouse Smoking Status: Former smoker alcohol intake: current alcohol intake frequency: a few times a month substance use type: does not use ROS Const Const: Negative for fatigue or weakness Eyes Eyes: Negative for blurry vision, change in vision, double vision, floaters or tunnel vision ENT ENT: Negative for dizziness, balance problems, lip swelling or tongue swelling Cardio Chest Pain: No Palpitations: No Edema: None Muscle aches with walking: None Resp Respiratory: Negative for SOB with activity, SOB at rest or SOB orthopnea SOB lying down GI GI: Negative nausea, vomiting or heartburn : Negative for hematuria or frequent nighttime urinat (more content not included)... Normal [facility] Comprehensive Metabolic Prof ilon 10-12-2024 Albumin [Mass/Vol] 3.6 g/dL Normal 3.2-5.0 [facility] Comment on above: Order Comment: Low S odium Performed By: #### L 500.4050 ####[facility] [address] [place], [address] Albumin/Globulin [Mass ratio] 1.1 {ratio} Normal 0.9-2.4 [facility] Comment on above: Order Comment: Low S odium Performed By: #### L 500.4050 ####[facility] [address] [place], [address] ALK P 76 U/L Normal 45-117 [facility] Comment on above: Order Comment: Low S odium Performed By: #### L 500.4050 ####[facility] [address] [place], [address] ALT [Catalytic activity/Vol] 31 U/L Normal 16-61 [facility] Comment on above: Order Comment: Low S odium Performed By: #### L 500.4050 ####[facility] [address] [place], [address] AST [Catalytic activity/Vol] 23 U/L Normal 15-37 [facility] Comment on above: Order Comment: Low S odium Performed By: #### L 500.4050 ####[facility] [address] [place], [address] Bilirubin [Mass/Vol] 1.30 mg/dL High 0.20-1.00 [facility] Comment on above: Order Comment: Low S odium Result Comment: For patients on eltrombopag therapy, use of Dimension Bradley TBIL is not recommended. Performed By: #### L 500.4050 ####[facility] [address] [place], [address] BUN/CRE 14.0 RATIO Normal 10-20 [facility] Comment on above: Order Comment: Low S odium Performed By: #### L 500.4050 ####[facility] [address] [place], [address] CA,Total 9.6 mg/dL Normal 8.5-10.1 [facility] Comment on above: Order Comment: Low S odium Performed By: #### L 500.4050 ####[facility] [address] [place], [address] Chloride [Moles/Vol] 95 mmol/L Low 98-107 [facility] Comment on above: Order Comment: Low S odium Performed By: #### L 500.4050 ####[facility] [address] [place], [address] CO2 [Moles/Vol] 29.0 mmol/L Normal 21.0-32.0 [facility] Comment on above: Order Comment: Low S odium Performed By: #### L 500.4050 ####[facility] [address] [place], [address] Creatinine [Mass/Vol] 0.72 mg/dL Normal 0.70-1.30 [facility] Comment on above: Order Comment: Low S odium Result Comment: The validity of the calculated GFR GFRAA in patients over 70 years has not been determined. Clinical correlation is essential. Performed By: #### L 500.4050 ####[facility] [address] [place], [address] EST GFR - AA 139 mL/min Normal >60 [facility] Comment on above: Order Comment: Low S odium Result Comment: Afri can Kyr[place]z GFR Calc Performed By: #### L 500.4050 ####[facility] [address] [place], [address] GAP 4 Low 5-15 [facility] Comment on above: Order Comment: Low S odium Performed By: #### L 500.4050 ####[facility] [address] [place], [address] GFR/1.73 sq M.predicted among non-blacks MDRD (S/P/Bld) [Vol rate/Area] 115 mL/min/{1.73_m2} Normal >60 [facility] Comment on above: Order Comment: Low S odium Result Comment: Non- GFR Calc Performed By: #### L 500.4050 ####[facility] [address] [place], [address] Globulin (S) [Mass/Vol] 3.3 g/dL Normal 2.2-4.2 [facility] Comment on above: Order Comment: Low S odium Performed By: #### L 500.4050 ####[facility] [address] [place], [address] Glucose [Mass/Vol] 144 mg/dL High 74-106 [facility] Comment on above: Order Comment: Low S odium Result Comment: Fast ing Glucose result greater than or equal to 126 mg/dL suggests DIABETES MELLITUS per A.D.A. criteria. Performed By: #### L 500.4050 ####[facility] [address] [place], [address] Potassium [Moles/Vol] 4.7 mmol/L Normal 3.5-5.1 [facility] Comment on above: Order Comment: Low S odium Performed By: #### L 500.4050 ####[facility] [address] [place], [address] Sodium [Moles/Vol] 128 mmol/L Low 136-145 [facility] Comment on above: Order Comment: Low S odium Performed By: #### L 500.4050 ####[facility] [address] [place], [address] T PROT 6.9 g/dL Normal 6.4-8.2 [facility] Comment on above: Order Comment: Low S odium Performed By: #### L 500.4050 ####[facility] [address] [place], [address] Urea nitrogen [Mass/Vol] 10 mg/dL Normal 7-18 [facility] Comment on above: Order Comment: Low S odium Performed By: #### L 500.4050 ####[facility] [address] [place], [address] Basic metabolic 2000 panelon 10-06-2024 Anion gap [Moles/Vol] 10 mmol/L Normal 8-15 [facility] Comment on above: Order Comment: Speci men Type: BLOOD SPECIMENOrdering Facility: [facility] Address: [address] [place] [address] Performed By: #### 2 132-9, 68029-5, 2885-2, 2143-6 ####[facility]CLIA [id number] [facility] [id number] [address] [place] Calcium [Mass/Vol] 9.4 mg/dL Normal 8.5-10.2 [facility] Comment on above: Order Comment: Speci men Type: BLOOD SPECIMENOrdering Facility: [facility] Address: [address] [place] [address] Performed By: #### 2 132-9, 54917-8, 288-2, 2143-03 ####[facility] LABCLIA [id number] [place] [address] [place] Chloride [Moles/Vol] 94 mmol/L Low 98-107 [facility] Comment on above: Order Comment: Speci men Type: BLOOD SPECIMENOrdering Facility: [facility] Address: [address] [place] [address] Performed By: #### 2 132-9, 05328-1, 2884-2, 2143-03 ####[facility] LABCLIA [id number] [place] [address] [place] CO2 [Moles/Vol] 27 mmol/L Normal 22-30 [facility] Comment on above: Order Comment: Speci men Type: BLOOD SPECIMENOrdering Facility: [facility] Address: [address] [place] [address] Performed By: #### 2 132-9, 40835-8, 2884-2, 2143-03 ####[facility] LABCLIA [id number] [place] [id number] [place] Creatinine [Mass/Vol] 0.61 mg/dL Low 0.73-1.22 [facility] Comment on above: Order Comment: Speci men Type: BLOOD SPECIMENOrdering Facility: [facility] Address: [address] [place] [address] Performed By: #### 2 132-9, 73665-3, 288-2, 2143-03 ####[facility] LABCLIA [id number] [address] [address] [place] Creatinine and Glomerular filtration rate.predicted panel (S/P/Bld) 102 mL/min/1.73m??? Normal >=60 [facility] Comment on above: Order Comment: Mariza gomes Type: BLOOD SPECIMENOrdering Facility: [facility] Address: [address] [place] [address] Result Comment: Ingrid mated Glomerular Filtration Rate (eGFR) is calculated using the 2020 CKD-EPI creatinine equation. This equation utilizes serum creatinine, sex, and age as parameters. The creatinine assay has traceable calibration to isotope dilution-mass spectrometry. Refer to KDIGO guidelines for clinical interpretation. In patients with unstable renal function, e.g. those with acute kidney injury, the eGFR may not accurately reflect actual GFR. Performed By: #### 2 132-9, 42096-7, 5-2, 2143-03 ####[facility] LABCLIA [id number] [place] [address] [place] Glucose [Mass/Vol] 83 mg/dL Normal 74-99 [facility] Comment on above: Order Comment: Mariza gomes Type: BLOOD SPECIMENOrdering Facility: [facility] Address: [address] [place] [address] Result Comment: The [place] Diabetes Association (ADA) provides guidance for cutoff values for fasting glucose and random glucose. The ADA defines fasting as no caloric intake for at least 8 hours. Fasting plasma glucose results between 100 to 125 mg/dL indicate increased risk for diabetes (prediabetes). Fasting plasma glucose results greater than or equal to 126 mg/dL meet the criteria for diagnosis of diabetes. In the absence of unequivocal hyperglycemia, results should be confirmed by repeat testing. In a patient with classic symptoms of hyperglycemia or hyperglycemic crisis, random plasma glucose results greater than or equal to 200 mg/dL meet the criteria for diagnosis of diabetes. Reference: Standards of Medical Care in Diabetes 2016, [place] Diabetes Association. Diabetes Care. 2016.39(Suppl 1). Performed By: #### 2 132-9, 47758-5, 2885-2, 6 ####[facility] LABCLIA [id number] [address] [address] [place] Potassium [Moles/Vol] 5.3 mmol/L High 3.7-5.1 [facility] Comment on above: Order Comment: Speci men Type: BLOOD SPECIMENOrdering Facility: [facility] Address: [address] [place] [address] Performed By: #### 2 132-9, 89062-0, 2885-2, 3-6 ####[facility] LABCLIA [id number] [place] [address] [place] Sodium [Moles/Vol] 131 mmol/L Low 136-144 [facility] Comment on above: Order Comment: Speci men Type: BLOOD SPECIMENOrdering Facility: [facility] Address: [address] [place] [address] Performed By: #### 2 132-9, 22083-7, 2885-2, 2142-6 ####[facility] LABCLIA [id number] [place] [address] [place] Urea nitrogen [Mass/Vol] 7 mg/dL Low 9-24 [facility] Comment on above: Order Comment: Speci men Type: BLOOD SPECIMENOrdering Facility: [facility] Address: [address] [place] [address] Performed By: #### 2 132-9, 95082-9, 2885-2, 6 ####[facility] LABCLIA [id number] [place] [id number] [place] CBC panel Auto (Bld)on 10-06 Erythrocyte distribution width (RBC) [Ratio] 11.5 % Normal 11.5-15.0 [facility] Comment on above: Order Comment: Speci men Type: BLOOD SPECIMENOrdering Facility: [facility] Address: [address] [place] [address] Performed By: #### 5 8410-2 ####[facility] LABCLIA [id number] [place] [address] [place] Hematocrit (Bld) [Volume fraction] 30.4 % Low 39.0-51.0 [facility] Comment on above: Order Comment: Speci men Type: BLOOD SPECIMENOrdering Facility: [facility] Address: [address] [place] [address] Performed By: #### 5 8410-2 ####[facility] LABIA [id number] [place] [address] [place] Hemoglobin (Bld) [Mass/Vol] 10.7 g/dL Low 13.0-17.0 [facility] Comment on above: Order Comment: Speci men Type: BLOOD SPECIMENOrdering Facility: [facility] Address: [address] [place] [address] Performed By: #### 5 8410-2 ####[facility] LABIA [id number] [place] [address] [place] MCH (RBC) [Entitic mass] 34.9 pg High 26.0-34.0 [facility] Comment on above: Order Comment: Speci men Type: BLOOD SPECIMENOrdering Facility: [facility] Address: [address] [place] [address] Performed By: #### 5 8410-2 ####[facility] LABIA [id number] [place] [address] [place] MCHC (RBC) [Mass/Vol] 35.2 g/dL Normal 30.5-36.0 [facility] Comment on above: Order Comment: Speci men Type: BLOOD SPECIMENOrdering Facility: [facility] Address: [address] [place] [address] Performed By: #### 5 8410-2 ####[facility] LABIA [id number] [place] [address] [place] MCV (RBC) [Entitic vol] 99.0 fL Normal 80.0-100.0 [facility] Comment on above: Order Comment: Speci men Type: BLOOD SPECIMENOrdering Facility: [facility] Address: [address] [place] [address] Performed By: #### 5 8410-2 ####[facility] LABCLIA [id number] [place] [address] [place] Nucleated RBC (Bld) [#/Vol] 10*3/uL Normal <0.01 [facility] Comment on above: Order Comment: Speci men Type: BLOOD SPECIMENOrdering Facility: [facility] Address: [address] [place] [address] Performed By: #### 5 8410-2 ####[facility] LABIA [id number] [place] [address] [place] Platelet mean volume (Bld) [Entitic vol] 9.5 fL Normal 9.0-12.7 [facility] Comment on above: Order Comment: Speci men Type: BLOOD SPECIMENOrdering Facility: [facility] Address: [address] [place] [address] Performed By: #### 5 8410-2 ####[facility] LABIA [id number] [place] [address] [place] Platelets (Bld) [#/Vol] 236 10*3/uL Normal 150-400 [facility] Comment on above: Order Comment: Speci men Type: BLOOD SPECIMENOrdering Facility: [facility] Address: [address] [place] [address] Performed By: #### 5 8410-2 ####[facility] LABIA [id number] [place] [address] [place] RBC (Bld) [#/Vol] 3.07 10*6/uL Low 4.20-6.00 [facility] Comment on above: Order Comment: Speci men Type: BLOOD SPECIMENOrdering Facility: [facility] Address: [address] [place] [address] Performed By: #### 5 8410-2 ####[facility] LABIA [id number] [place] [address] [place] WBC (Bld) [#/Vol] 5.07 10*3/uL Normal 3.70-11.00 [facility] Comment on above: Order Comment: Speci men Type: BLOOD SPECIMENOrdering Facility: [facility] Address: [address] [place] [address] Performed By: #### 5 8410-2 ####[facility]CLIA [id number] [place] [address] [place] Cortis SerPl-mCncon 10-06-20 Cortisol [Mass/Vol] 10.3 ug/dL Normal 4.8-19.5 [facility] Comment on above: Order Comment: Speci men Type: BLOOD SPECIMENOrdering Facility: [facility] Address: [address] [place] [address] Result Comment: Prov ided reference range is from 6-10 AM sample collection time. Cortisol Reference Range: 6-10 AM = 4.8-19.5 ug/dL, 4-8 PM = 2.5-11.9 ug/dL Performed By: #### 2 132-9, 54795-8, 2885-2, 2143-6 ####[facility] LABCLIA [id number] [place] [address] [place] Osmolality SerPlon Osmolality [Osmolality] 268 mosm/kg Low 275-300 [facility] Comment on above: Order Comment: Speci men Type: BLOOD SPECIMEN [facility]: [facility] Address: [address] [place] [address] Performed By: #### 5 8410-2 #### [facility] CLIA [id number] [address] [place] [address] [place] Osmolality Uron 10-06-2024 Osmolality (U) [Osmolality] 161 mosm/kg Normal 50-1200 [facility] Comment on above: Order Comment: Speci men Type: URINE SPECIMENOrdering Facility: [facility] Address: [address] [place] [address] Performed By: #### 2 695-5 ####[facility] LABCLIA [id number] [place] [address] [place] PROTEIN ELECTROPHORESIS SERU M (P)on 10-06-2024 Albumin [Mass/Vol] 3.78 g/dL Normal 3.43-5.41 [facility] Comment on above: Order Comment: Speci men Type: BLOOD SPECIMENOrdering Facility: [facility] Address: [address] [place] [address] Performed By: #### L [id number] ####[facility]CLIA [id number] [place] [address] [place] Alpha 1 globulin Elph [Mass/Vol] 0.28 g/dL Normal 0.18-0.43 [facility] Comment on above: Order Comment: Speci men Type: BLOOD SPECIMENOrdering Facility: [facility] Address: [address] [place] [address] Performed By: #### L [id number] ####[facility]CLIA [id number] [place] [address] [place] Alpha 2 globulin Elph [Mass/Vol] 0.58 g/dL Normal 0.42-0.98 [facility] Comment on above: Order Comment: Speci men Type: BLOOD SPECIMENOrdering Facility: [facility] Address: [address] [place] [address] Performed By: #### L [id number] ####[facility]CLIA [id number] [place] [address] [place] Beta globulin Elph [Mass/Vol] 0.61 g/dL Normal 0.61-1.17 [facility] Comment on above: Order Comment: Speci men Type: BLOOD SPECIMENOrdering Facility: [facility] Address: [address] [place] [address] Performed By: #### L [id number] ####[facility]CLIA [id number] [place] [address] [place] Gamma globulin Elph [Mass/Vol] 0.54 g/dL Normal 0.53-1.51 [facility] Comment on above: Order Comment: Speci men Type: BLOOD SPECIMENOrdering Facility: [facility] Address: [address] [place] [address] Performed By: #### L [id number] ####[facility] LABIA [id number] [place] [address] [place] M-PROTEIN LOCATION Normal [facility] Comment on above: Order Comment: Speci men Type: BLOOD SPECIMENOrdering Facility: [facility] Address: [address] [place] [address] Result Comment: Not Applicable. Performed By: #### L [id number] ####[facility] LABIA [id number] [place] [address] [place] Protein Fractions [Interp] No definitive M protein is identified on protein electrophoresis. Normal No definitive M protein is identified on protein electrophores is. [facility] Comment on above: Order Comment: Speci men Type: BLOOD SPECIMENOrdering Facility: [facility] Address: [address] [place] [address] Performed By: #### L [id number] ####[facility] LABIA [id number] [place] [address] [place] Protein.monoclonal Elph [Mass/Vol] 0.00 g/dL Normal <=0.00 [facility] Comment on above: Order Comment: Speci men Type: BLOOD SPECIMENOrdering Facility: [facility] Address: [address] [place] [address] Performed By: #### L [id number] ####[facility]CLIA [id number] [place] [address] [place] SPE STAFF REVIEW Reviewed by Chante Ag MD [facility] Comment on above: Order Comment: Speci men Type: BLOOD SPECIMENOrdering Facility: [facility] Address: [address] [place], [place] [address] Performed By: #### L [id number] ####[facility]IA [id number] [address] [address] [place] Prot [facility] 10-06-2024 Protein [Mass/Vol] 5.8 g/dL Low 6.3-8.0 [facility] Comment on above: Order Comment: Speci men Type: BLOOD SPECIMENOrdering Facility: [facility] Address: [address] [place] [address] Performed By: #### 2 132-9, 85048-7, 3235-2, 2142-6 ####[facility] LABIA [id number] [place] [id number] [place] Sodium ?Tm Ur-sCncon 024 Sodium Unsp time (U) [Moles/Vol] 28 mmol/L Normal 14-216 [facility] Comment on above: Order Comment: Speci men Type: URINE SPECIMENOrdering Facility: [facility] Address: [address] [place] [address] Performed By: #### 3 5678-2 ####[facility] LABIA [id number] [address] [address] [place] Vit B12 SerPl-ncon 024 Cobalamin (Vitamin B12) [Mass/Vol] 509 pg/mL Normal 232-1245 [facility] Comment on above: Order Comment: Speci men Type: BLOOD SPECIMENOrdering Facility: [facility] Address: [address] [place] [address] Performed By: #### 2 132-9, 12335-3, 2885-2, 2142-6 ####[facility] LABIA [id number] [place] [id number] [place] ECG 12-LEADon 10-01-2024 ECG 12-LEAD IMPRESSION: Sinus bradycardia Prolonged UT interval Borderline ST elevation, anterior leads Electronically Signed On 10-01-2024 15:11:59 EST by Basil Cordoba [facility] Anesthesia Noteon 09-30-2024 Anesthesia Note Sedation Plan ASA class 3 - patient with severe systemic disease Mallampati class: III - soft palate, base of uvula visible. Sedation plan: local anesthesia and moderate (conscious sedation) Risks, benefits, and alternatives discussed with patient. Use of blood products discussed with patient who consented to blood products. Plan discussed with fellow. Immediate reassessment prior to sedation: Patient's status reviewed and vital signs assessed; acceptable to perform procedure and proceed to administer sedation as planned. Normal [facility] Cardiac catheterization stud yon 09-30-2024 History: A 74-year-old gentleman with known history of CAD s/p CABG (patent WRIGHT to LAD, occluded SVG to ramus). He presented to the outpatient setting with crescendo angina. He is here for planned PCI of the distal left main as well as the ramus intermedius arteries. Hemodynamics Not performed Coronary Arteriography Left Main: Large-caliber vessel with 90% distal segment stenosis with heavy calcification. Left Anterior Descending: Medium caliber vessel with severe diffuse disease, and occluded mid LAD. Previously known known patent WRIGHT to LAD graft (not injected) Ramus intermedius: Medium to large caliber vessel with severe 70% proximal stenosis and 95% mid to distal segment stenosis with severe diffuse heavy calcification Left Circumflex: Medium caliber vessel with mild to moderate mid segment disease Coronary Intervention -PCI of the ramus intermedius: A 6 Kiswahili EBU 3.5 guide catheter was used, with help of a GuideLiner and a Hi-Torque floppy guidewire. -Sequential predilation of the ramus intermedius from the distal to proximal segment using a 2.0 x 15 mm NC balloon. -Shockwave balloon angioplasty performed at the mid to distal ramus intermedius but the balloon burst after 20 pulses were delivered. - Followed by successful IVUS guided PCI of the mid to distal ramus intermedius using a 2.75 x 38 mm Xience LISANDRO, with excellent results, 0% residual stenosis and KARTHIKEYAN-3 flow. -PCI of the mid to distal left main, into the proximal to mid ramus intermedius: -Sequential predilation using a 1.5 x 20 mm Takeru balloon, followed by a 2.0 x 15 mm NC balloon, followed by a 3.0 x 20 mm NC balloon, followed by shockwave balloon angioplasty using a 3.5 x 12 mm IVL balloon (60 pulses delivered). -Followed by successful IVUS guided PCI of the mid to distal LM, and to the proximal to mid RI using a 3.0 x 33 mm Xience LISANDRO, with further post dilation using a 3.5 x 15 mm NC trek balloon, with excellent results, 0% residual stenosis and KARTHIKEYAN-3 flow. Complications None Conclusions -90% distal left main stenosis -Successful Left Main IVUS guided PCI using Intravascular lithotripsy, 3.0 x 33 mm Xience LISANDRO, with further post dilation using a 3.5 x 15 mm NC trek balloon, with excellent results, 0% residual stenosis and KARTHIKEYAN-3 flow. -90% heavily calcified stenosis of the mid to distal ramus intermedius -Successful Ramus Intermedius IVUS guided PCI using intravascular lithotripsy, a 2.75 x 38 mm Xience LISANDRO, with excellent results, 0% residual stenosis and KARTHIKEYAN-3 flow. Plan -Optimize GDMT for CAD. DAPT for at least 1 year. -Aggressive risk factor modification. Follow up with Dr. Simeon in [place] Referral to cardiac rehab Coronary Findings Diagnostic Dominance: Right Left Main: Mid LM to Dist LM lesion, 90% stenosed. Dist LM lesion, 95% stenosed. Left Anterior Descending: Mid LAD lesion, 100% stenosed. Ramus Intermedius: Ramus-1 lesion, 70% stenosed. Ramus-2 lesion, 90% stenosed. Intervention Mid LM to Dist LM lesion: Angioplasty (Also treats lesions: Dist LM): Angioplasty using a standard balloon was performed following stent deployment. Balloon inserted, inflated, placed across lesion and removed. Balloon inflated using mutiple inflation technique. Balloon 1: Inflation#1: Pressure = 18 thony; Duration = 10 sec. Inflation#2: Pressure = 18 thony; Duration = 16 sec. Supplies Used: CATH NC TREK DRE 3.56S12BX Angioplasty (Also treats lesions: Dist LM): Angioplasty using a standard balloon was performed following stent deployment. Balloon inserted and unable to cross lesion. Balloon was not inflated. Supplies Used: CATH NC TREK DRE 3.56R95UO Angioplasty (Also treats lesions: Dist LM): Angioplasty using a standard balloon was performed prior to stent deployment. Balloon inserted, inflated, placed across lesion and removed. Balloon inflated using single inflation technique. Balloon 1: Inflation#1: Pressure = 12 thony; Duration = 10 sec. Supplies Used: CATH NC TREK DRE 2.68O40JD Intravascular Lithotripsy (Also treats lesions: Dist LM): IVL cycles: 60 Supplies Used: CATH SHOCKWAVE C2+ IVL 3.5X12 Stent (Also treats lesions: Dist LM): Type of stent: drug-eluting. The stent used was a STENT COR SKYPOINT 3.26W23QQ. Actions taken: stent inserted, stent placed across lesion and balloon removed. The stent was fully expanded. Post-Intervention Lesion Assessment: The guidewire crossed the lesion. Device was deployed. The pre-interventional distal flow is decreased (KARTHIKEYAN 2). Post-intervention KARTHIKEYAN flow is 3. There is a 0% residual stenosis post intervention. Dist LM lesion: Angioplasty: Angioplasty using a standard balloon was performed prior to stent deployment. Balloon inserted, unable to cross lesion and removed. Balloon was not inflated. Supplies Used: CATH NC TREK DRE 3.36H05MH Angioplasty: Angioplasty using a standard balloon was performed prior to stent deployment. Balloon inserted, unable to (more content not included)... CV CPACS HEMO [facility] Laboratory - Chemistry and C hemistry - challengeon 09-30-2024 Potassium [Moles/Vol] 4.2 mmol/L 3.5 - 5.1 mmol/L [facility] Comment on above: Plasma potassium matt ues may be up to 0.5 mmol/L lower than serum values. No Panel Informationon 09-30 Interpretation and review of laboratory results Abnormal [facility] ITYZ POCT ACT 264 High [facility] ITYZ POCT ACT 362 High [facility] Performed by: [facility], [address] [place] [address] CLIA ID: [id number] [facility] POTASSIUMon 09-30-2024 Potassium [Moles/Vol] 4.2 mmol/L Normal 3.5-5.1 [facility] Comment on above: Result Comment: [facility] potassium values may be up to 0.5 mmol/L lower than serum values. Performed By: #### L AB114 #### Compliance Vice President: MYCHAL HELLER ([id number]) [facility] ([facility]) [address] [place] [address] Potassium [Moles/Vol]on Interpretation and review of laboratory results Normal [facility] 36on 09-29-2024 36 Prep for proc completed. Normal [facility] Basic Metabolic Profile (BMP )on 09-28-2024 BUN/CRE 21.4 RATIO High 10-20 [facility] Comment on above: Performed By: #### L 300.3900, L100.0500, L500.2500 ####[facility] [address] [place], [address] CA,Total 9.3 mg/dL Normal 8.5-10.1 [facility] Comment on above: Performed By: #### L 300.3900, L100.0500, L500.2500 ####[facility] [address] [place], [address] Chloride [Moles/Vol] 86 mmol/L Low 98-107 [facility] Comment on above: Performed By: #### L 300.3900, L100.0500, L500.2500 ####[facility] [address] [place], [address] CO2 [Moles/Vol] 27.0 mmol/L Normal 21.0-32.0 [facility] Comment on above: Performed By: #### L 300.3900, L100.0500, L500.2500 ####[facility] [address] [place], [address] Creatinine [Mass/Vol] 0.70 mg/dL Normal 0.70-1.30 [facility] Comment on above: Result Comment: The validity of the calculated GFR GFRAA in patients over 70 years has not been determined. Clinical correlation is essential. Performed By: #### L 300.3900, L100.0500, L500.2500 ####[facility] [address] [place], [address] EST GFR - AA 142 mL/min Normal >60 [facility] Comment on above: Result Comment: Afri can Kyrgyz GFR Calc Performed By: #### L 300.3900, L100.0500, L500.2500 ####[facility] [address] [place], [address] GAP 7 Normal 5-15 [facility] Comment on above: Performed By: #### L 300.3900, L100.0500, L500.2500 ####[facility] [address] [place], [address] GFR/1.73 sq M.predicted among non-blacks MDRD (S/P/Bld) [Vol rate/Area] 118 mL/min/{1.73_m2} Normal >60 [facility] Comment on above: Result Comment: Non- GFR Calc Performed By: #### L 300.3900, L100.0500, L500.2500 ####[facility] [address] [place], [address] Glucose [Mass/Vol] 109 mg/dL High 74-106 [facility] Comment on above: Result Comment: Fast ing Glucose result from 100 to 125 mg/dL suggests IMPAIRED HOMEOSTASIS per A.D.A. criteria. Performed By: #### L 300.3900, L100.0500, L500.2500 ####[facility] [address] [place], [address] Potassium [Moles/Vol] 4.8 mmol/L Normal 3.5-5.1 [facility] Comment on above: Performed By: #### L 300.3900, L100.0500, L500.2500 ####[facility] [address] [place], [address] Sodium [Moles/Vol] 120 mmol/L Low 136-145 [facility] Comment on above: Performed By: #### L 300.3900, L100.0500, L500.2500 ####[facility] [address] [place], [address] Urea nitrogen [Mass/Vol] 15 mg/dL Normal 7-18 [facility] Comment on above: Performed By: #### L 300.3900, L100.0500, L500.2500 ####[facility] [address] [place], [address] CBC-Complete Blood Cnt No Di ffon 09-28-2024 Erythrocyte distribution width (RBC) [Ratio] 11.5 % Low 11.6-14.6 [facility] Comment on above: Performed By: #### L 300.3900, L100.0500, L500.2500 #### [facility] [address] [place], [address] Hematocrit (Bld) [Volume fraction] 33.4 % Low 40-54 [facility] Comment on above: Performed By: #### L 300.3900, L100.0500, L500.2500 #### [facility] [address] [place], [address] Hemoglobin (Bld) [Mass/Vol] 12.0 g/dL Low 13.0-16.5 [facility] Comment on above: Performed By: #### L 300.3900, L100.0500, L500.2500 #### [facility] [address] [place], [address] MCH (RBC) [Entitic mass] 33.9 pg High 27.0-32.0 [facility] Comment on above: Performed By: #### L 300.3900, L100.0500, L500.2500 #### [facility] [address] [place], [address] MCHC (RBC) [Mass/Vol] 35.9 g/dL Normal 32-36 [facility] Comment on above: Performed By: #### L 300.3900, L100.0500, L500.2500 #### [facility] [address] [place], [address] MCV (RBC) [Entitic vol] 94.4 fL High 80-[address] [facility] Comment on above: Performed By: #### L 300.3900, L100.0500, L500.2500 #### [facility] [address] [place], [address] Platelet mean volume (Bld) [Entitic vol] 9.4 fL Normal 6.2-12.0 [facility] Comment on above: Performed By: #### L 300.3900, L100.0500, L500.2500 #### [facility] [address] [place], [address] Platelets (Bld) [#/Vol] 216 10*3/uL Normal 150-450 [facility] Comment on above: Performed By: #### L 300.3900, L100.0500, L500.2500 #### [facility] [address] [place], [address] RBC (Bld) [#/Vol] 3.54 10*6/uL Low 4.6-6.2 [facility] Comment on above: Performed By: #### L 300.3900, L100.0500, L500.2500 #### [facility] [address] [place], [address] RDW SD 39.6 fl Normal 35.1-43.9 [facility] Comment on above: Performed By: #### L 300.3900, L100.0500, L500.2500 #### [facility] [address] [place], [address] WBC (Bld) [#/Vol] 6.6 10*3/uL Normal 4.4-11.0 [facility] Comment on above: Performed By: #### L 300.3900, L100.0500, L500.2500 #### [facility] [address] [place], [address] Prothrombin Time w/INRon INR Coag (PPP) [Relative time] 1.0 {INR} Normal [facility] Comment on above: Performed By: #### L 300.3900, L100.0500, L500.2500 ####[facility] [address] [place], [address] PT Coag (PPP) [Time] 13.2 s Normal 11.7-14.9 [facility] Comment on above: Performed By: #### L 300.3900, L100.0500, L500.2500 ####[facility] [address] [place], [address] 36on 09-17-2024 36 CATH scheduled Normal [facility] 36on 09-16-2024 36 [facility] [address] [place] [address] DEPT: [phone] DEPT You are scheduled for LHC with on 09/30/24 at 11am Report to [facility], 1st Floor [facility] by 9:30am You can park in the [address] Deck or use [employer] parking (for a nominal fee of $7-8) and enter the hospital using the [address] entrance across from the parking deck You will need a designated speedboat driver for the day of your procedure to take you home. You will not be able to drive 24-72 hours after the procedure Nothing to eat or drink after midnight Please take your am medications with sips of water prior to leaving for the hospital. Please take your Aspirin and Plavix as usual before leaving for the hospital. Hold hydrochlorothiazide the morning of procedure, hold metformin 2 days prior to procedure. Get blood work done by 09/26/24 Please call the office if you have any questions. Teach done in office. Pt verbalized understanding. Normal [facility] 36 No auth needed for L HC w/Grafts CPT 14730 per Traditional Medicare and [employer] Medicare Supplement Guidelines. Normal [facility] No Panel Informationon 09-16 Marked sinus Bradycardia -First degree A-V block Early transition Janina = 249 BORDERLINE RHYTHM [facility] Office Visiton 09-16-2024 Follow-up visit [id number] Aditya Hutson 1950 M Date Provider Department Center 09/16/2024 SERGEI OSULLIVAN [facility] [address] Family History Problem Relation Age of Onset No Known Problems Mother Heart attack Father Family Status - Relation Status Age at Mother Father Level of Service:92183 UT OFFICE/OUTPATIENT NEW MODERATE MDM 45 MINUTES Reason for Visit and Comments: New Patient [542] Normal [facility] Progress Noteon 09-16-2024 Progress Note [facility] Cardiovascular Medicine [facility] [address] [facility] [address] Dept: [phone] Dept Loc: [phone] DATE of SERVICE: 09/16/24 TIME of SERVICE: 2:42 PM DATE of : 1950 PRIMARY CARE PHYSICIAN: No primary care provider on file. Visit type: New Patient History & Subjective Chief Complaint: Chief Complaint Patient presents with New Patient History of Present Illness: Marie Hutson is a 74 y.o. 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 The patient claims he had a third vessel bypassed but his cath films appear to only show 2 bypasses. He is followed by Dr. Simeon at [facility]. He had an NSTEMI in January 2024. The WRIGHT to the LAD was patent. There is a saphenous vein graft to an upper branch of the ramus which was also patent. He has a severely stenotic and calcified distal left main as well as a severely stenotic ostial ramus. The upper branch of the ramus has an ostial stenosis and does not provide blood flow to the lower branch. There is no bypass to the circumflex or RCA. The distal RCA was stented. Apparently the patient has been having some exertional dyspnea. Dr. Simeon asked me to review the films and was wondering if I could perform stenting of the left main into the ramus with calcium modification. Currently the patient only has minor dyspnea on exertion. No chest pains. Denies any edema, orthopnea, PND, palpitations or syncope. No bleeding or bruising. History of NSTEMI as noted above. No history of rheumatic fever or heart murmur. PMH / PSH / SH/ Allergies / Meds Subjective Past Medical History: Past Medical History: Diagnosis Date Coronary artery disease Diabetes mellitus (HCC) Hyperlipidemia Hypertension Myocardial infarction (HCC) Past Surgical History Past Surgical History: Procedure Laterality Date CORONARY ARTERY BYPASS GRAFT CORONARY STENT PLACEMENT Allergies: No Known Allergies Medications: Current Outpatient Medications: amLODIPine (Norvasc) 10 MG tablet, Take 10 mg by mouth daily., Disp: , Rfl: aspirin 81 MG EC tablet, Take 81 mg by mouth daily., Disp: , Rfl: atorvastatin (Lipitor) 40 MG tablet, Take 40 mg by mouth daily., Disp: , Rfl: carvedilol (Coreg) 12.5 MG tablet, Take 12.5 mg by mouth 2 times daily (with meals)., Disp: , Rfl: cloNIDine (Catapres) 0.2 MG tablet, Take 0.2 mg by mouth twice a day., Disp: , Rfl: clopidogrel (Plavix) 75 MG tablet, Take 75 mg by mouth daily., Disp: , Rfl: gabapentin (Neurontin) 300 MG capsule, Take 300 mg by mouth., Disp: , Rfl: hydroCHLOROthiazide (HYDRODiuril) 25 MG tablet, Take 25 mg by mouth daily., Disp: , Rfl: lisinopril 40 MG tablet, Take 40 mg by mouth twice a day., Disp: , Rfl: metFORMIN (Glucophage) 500 MG tablet, Take 2 tablets by mouth 2 times daily (with meals)., Disp: , Rfl: metoprolol tartrate (Lopressor) 25 MG tablet, Take 12.5 mg by mouth twice a day., Disp: , Rfl: nitroglycerin (Nitrostat) 0.3 MG SL tablet, Place 0.3 mg under the tongue every 5 minutes as needed., Disp: , Rfl: Exam / Labs / Tests Objective Physical Examination: Vitals: Vitals: 09/16/24 1409 BP: 114/64 Pulse: (!) 45 Weight: 189 lb (85.7 kg) Height: 5' 10 (1.778 m) Wt Readings from Last 3 Encounters: 09/16/24 189 lb (85.7 kg) Body mass index is 27.12 kg/m?. Physical Exam Constitutional: Appearance: Normal appearance. HENT: Head: Normocephalic and atraumatic. Right Ear: External ear normal. Left Ear: External ear normal. Nose: Nose normal. Mouth/Throat: Mouth: Mucous membranes are moist. Eyes: General: Right eye: No discharge. Left eye: No discharge. Neck: Vascular: No carotid bruit. Cardiovascular: Rate and Rhythm: Normal rate and regular rhythm. Heart sounds: Normal heart sounds, S1 normal and S2 normal. No murmur heard. No gallop. No S3 or S4 sounds. Pulmonary: Effort: Pulmonary effort is normal. Breath sounds: Normal breath sounds. Chest: Abdominal: General: Bowel sounds are normal. Palpations: Abdomen is soft. Tenderness: There is no abdominal tenderness. Musculoskeletal: General: No swelling or deformity. Cervical back: Neck supple. Right lower leg: No edema. Left lower leg: No edema. Skin: General: Skin is warm and dry. Coloration: Skin is not jaundiced. Neurological: Mental Status: He is alert and oriented to person, place, and time. Mental status is at baseline. Psychiatric: Mood and Affect: Mood normal. Behavior: Behavior normal. Data Reviewed Laboratory Tests: No results found for: WBC, HGB, HCT, MCV, PLT No results found for: GLUCOSE, CALCIUM, NA, K, CO2, CL, BUN, CREATINI (more content not included)... 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 Patient is not taking hydrochlorothiazide 25 mg daily and Atorvastatin 40 mg daily (patient was previously on 80 mg). Suellen Donovan RN Allergies As of Date: 09/15/2024 (No Known Allergies) Date Reviewed: 09/11/2024 Reviewed by: Martha Ram LPN - Fully Assessed Reason for Visit: Medication Update [0790] Order(s):atorvastatin (LIPITOR) 40 mg tabletTake 1 tablet by mouth daily at bedtime. For cholesterol.Disp: Rfl: hydroCHLOROthiazide 25 mg tabletTake 1 tablet by mouth once daily.Disp: Rfl: Prescriptions as of 09/15/2024 - atorvastatin (LIPITOR) 40 mg tablet Take 1 tablet by mouth daily at bedtime. For cholesterol. - hydroCHLOROthiazide 25 mg tablet Take 1 tablet by mouth once daily. - metoprolol tartrate, short acting, (LOPRESSOR) 25 mg tablet Take 0.5 tablets by mouth two times a day. - gabapentin (NEURONTIN) 300 mg capsule Take 1 capsule by mouth daily at bedtime for 180 days. - nitroglycerin sublingual (NITROQUICK) 0.3 mg SL tablet Dissolve 1 tablet under the tongue every 5 minutes as needed for chest pain. - metFORMIN (GLUCOPHAGE) 500 mg tablet Take 2 tablets by mouth two times a day with meals. - clopidogrel (PLAVIX) 75 mg tablet Take 1 tablet by mouth once daily. - lisinopril (ZESTRIL) 40 mg tablet Take 1 tablet by mouth two times a day. - amLODIPine (NORVASC) 10 mg tablet Take 1 tablet by mouth once daily. - cloNIDine HCl (CATAPRES) 0.2 mg tablet Take 1 tablet by mouth two times a day. - aspirin, enteric coated (ASPIRIN, ENTERIC COATED) 81 mg EC tablet Take 1 tablet by mouth once daily. - therapeutic multivitamin tablet Take 1 tablet by mouth daily with breakfast. - blood sugar diagnostic (ONE TOUCH ULTRA TEST) test strip Use as instructed - blood sugar diagnostic (ONE TOUCH ULTRA TEST) test strip TEST BLOOD SUGARS ONCE DAILY - lancets(ONE TOUCH ULTRASOFT LANCETS) Test blood sugar once daily. Problem List As Of Date 09/15/2024 Noted Resolved Essential hypertension [I10] 12/29/2007 Hyperlipidemia with target LDL less than 70 [E7*12/29/2007 Impotence of organic origin [N52.9] 12/29/2007 02/15/2016 BPH without obstruction/lower urinary tract sym*12/29/2007 02/21/2018 Well controlled type 2 diabetes mellitus with n*12/29/2007 Obesity, unspecified [E66.9] 12/29/2007 02/15/2016 Dermatophytosis of nail [B35.1] 12/29/2007 07/23/2014 Nonspecific abnormal results of liver function *04/29/2008 12/13/2011 Benign Neoplasm of Colon [D12.6] 07/29/2008 PAD (peripheral artery disease) [I73.9] 08/05/2009 Irritated//Inflamed Seborrheic Keratosis [L82.0]11/05/2010 12/15/2012 Actinic Keratoses (Premalignant AK's) [L57.0] 11/05/2010 01/01/2014 Actinic Damage///Sun-damaged skin [L57.8] 11/05/2010 12/15/2012 Personal history of other malignant neoplasm of*11/05/2010 12/15/2012 Melanocytic nevus of trunk [D22.5] 11/05/2010 02/15/2016 Solar Lentigines [L81.4] 11/05/2010 12/15/2012 Seborrheic Keratoses [L82.1] 11/05/2010 12/15/2012 Skin tag [L91.8] 11/05/2010 12/15/2012 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] 11/05/2010 12/15/2012 Surgical Scars [L90.5] 11/05/2010 12/15/2012 SUMMARY [V999.95] 10/17/2013 07/23/2014 Non-ST elevation myocardial infarction (NSTEMI)*10/17/2013 07/23/2014 Screening for ischemic heart disease [Z13.6] 10/19/2013 02/07/2024 Hypotension [I95.9] 10/20/2013 10/23/2013 Mechanically assisted ventilation [Z99.11] 10/20/2013 10/22/2013 Fluid overload [E87.70] 10/21/2013 10/23/2013 Atelectasis/pleural effusion/volume overload [J*10/21/2013 07/23/2014 Acute pain [R52] 10/22/2013 01/01/2014 Nodule of right lung [R91.1] 10/22/2013 07/23/2014 Elevated LFTs [R79.89] 10/23/2013 01/01/2014 DISPOSITION AND FOLLOW-UP [V999.01] 10/23/2013 01/01/2014 Postoperative anemia [D64.9] 10/25/2013 07/23/2014 DVT of leg (deep venous thrombosis) (HCC) [I82.*11/16/2013 07/23/2014 Post-operative state [Z98.890] 11/16/2013 01/01/2014 Actinic skin damage [L57.8] 12/18/2013 Solar Lentigines [L81.4] 12/18/2013 02/15/2016 Other seborrheic keratosis [L82.1] 12/18/2013 01/21/2015 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] 12/18/2013 02/15/2016 Hx of CABG [Z95.1] 05/17/2014 Diabetic peripheral neuropathy (HCC) [E11.42] 05/17/2014 Primary osteoarthritis of left knee [M17.12] 02/21/2018 Obesity, Class II, BMI 35-39.9 [E66.812] 08/22/2018 08/06/2019 Obesity, Class I, BMI 30-34.9 [E66.811] 08/06/2019 02/07/2024 Sleep apnea [G47.30] 09/15/2021 02/07/2024 Mixed sleep apnea [G47.39] 11/09/2021 Branch retinal artery occlusion, 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 Normal [facility] Remy 09-14-2024 [place] Telephone (INTMWS) MARIE HUTSON ([id number]) 1950 M Date Time Provider Department 09/14/24 SHER JULES During your visit today, we recorded the following information about you: Palak Rosales LPN 09/14/2024 1:16 PM Signed ----- Message from Sher Jules MD sent at 09/13/2024 2:02 PM EST ----- Hyponatremia. Hyperkalemia. Mild anemia. Follow up lab tests needed. Please do in 2-3 weeks. Palak Rosales LPN 09/14/2024 1:19 PM Signed Left message to call AND speak to nurse re: results. Chloé Cordova LPN, RN 09/15/2024 9:14 AM Signed Called and left a voicemail for the patient to call back and ask for a nurse to receive the providers message. Also sent Serushart Suellen Case RN 09/15/2024 10:42 AM Signed Patient notified of results and provider's instructions. Patient verbalizes understanding. Suellen Donovan RN Allergies As of Date: 09/14/2024 (No Known Allergies) Date Reviewed: 09/11/2024 Reviewed by: Martha Ram LPN - Fully Assessed Reason for Visit: Results [95] Prescriptions as of 09/15/2024 - metoprolol tartrate, short acting, (LOPRESSOR) 25 mg tablet Take 0.5 tablets by mouth two times a day. - atorvastatin (LIPITOR) 80 mg tablet Take 1 tablet by mouth daily at bedtime. For cholesterol. - gabapentin (NEURONTIN) 300 mg capsule Take 1 capsule by mouth daily at bedtime for 180 days. - nitroglycerin sublingual (NITROQUICK) 0.3 mg SL tablet Dissolve 1 tablet under the tongue every 5 minutes as needed for chest pain. - metFORMIN (GLUCOPHAGE) 500 mg tablet Take 2 tablets by mouth two times a day with meals. - clopidogrel (PLAVIX) 75 mg tablet Take 1 tablet by mouth once daily. - lisinopril (ZESTRIL) 40 mg tablet Take 1 tablet by mouth two times a day. - amLODIPine (NORVASC) 10 mg tablet Take 1 tablet by mouth once daily. - cloNIDine HCl (CATAPRES) 0.2 mg tablet Take 1 tablet by mouth two times a day. - aspirin, enteric coated (ASPIRIN, ENTERIC COATED) 81 mg EC tablet Take 1 tablet by mouth once daily. - therapeutic multivitamin tablet Take 1 tablet by mouth daily with breakfast. - blood sugar diagnostic (ONE TOUCH ULTRA TEST) test strip Use as instructed - blood sugar diagnostic (ONE TOUCH ULTRA TEST) test strip TEST BLOOD SUGARS ONCE DAILY - lancets(ONE TOUCH ULTRASOFT LANCETS) Test blood sugar once daily. Problem List As Of Date 09/14/2024 Noted Resolved Essential hypertension [I10] 12/29/2007 Hyperlipidemia with target LDL less than 70 [E7*12/29/2007 Impotence of organic origin [N52.9] 12/29/2007 02/15/2016 BPH without obstruction/lower urinary tract sym*12/29/2007 02/21/2018 Well controlled type 2 diabetes mellitus with n*12/29/2007 Obesity, unspecified [E66.9] 12/29/2007 02/15/2016 Dermatophytosis of nail [B35.1] 12/29/2007 07/23/2014 Nonspecific abnormal results of liver function *04/29/2008 12/13/2011 Benign Neoplasm of Colon [D12.6] 07/29/2008 PAD (peripheral artery disease) [I73.9] 08/05/2009 Irritated//Inflamed Seborrheic Keratosis [L82.0]11/05/2010 12/15/2012 Actinic Keratoses (Premalignant AK's) [L57.0] 11/05/2010 01/01/2014 Actinic Damage///Sun-damaged skin [L57.8] 11/05/2010 12/15/2012 Personal history of other malignant neoplasm of*11/05/2010 12/15/2012 Melanocytic nevus of trunk [D22.5] 11/05/2010 02/15/2016 Solar Lentigines [L81.4] 11/05/2010 12/15/2012 Seborrheic Keratoses [L82.1] 11/05/2010 12/15/2012 Skin tag [L91.8] 11/05/2010 12/15/2012 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] 11/05/2010 12/15/2012 Surgical Scars [L90.5] 11/05/2010 12/15/2012 SUMMARY [V999.95] 10/17/2013 07/23/2014 Non-ST elevation myocardial infarction (NSTEMI)*10/17/2013 07/23/2014 Screening for ischemic heart disease [Z13.6] 10/19/2013 02/07/2024 Hypotension [I95.9] 10/20/2013 10/23/2013 Mechanically assisted ventilation [Z99.11] 10/20/2013 10/22/2013 Fluid overload [E87.70] 10/21/2013 10/23/2013 Atelectasis/pleural effusion/volume overload [J*10/21/2013 07/23/2014 Acute pain [R52] 10/22/2013 01/01/2014 Nodule of right lung [R91.1] 10/22/2013 07/23/2014 Elevated LFTs [R79.89] 10/23/2013 01/01/2014 DISPOSITION AND FOLLOW-UP [V999.01] 10/23/2013 01/01/2014 Postoperative anemia [D64.9] 10/25/2013 07/23/2014 DVT of leg (deep venous thrombosis) (HCC) [I82.*11/16/2013 07/23/2014 Post-operative state [Z98.890] 11/16/2013 01/01/2014 Actinic skin damage [L57.8] 12/18/2013 Solar Lentigines [L81.4] 12/18/2013 02/15/2016 Other seborrheic keratosis [L82.1] 12/18/2013 01/21/2015 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] 12/18/2013 02/15/2016 Hx of CABG [Z95.1] 05/17/2014 Diabetic peripheral neuropathy (HCC) [E11.42] 05/17/2014 Primary osteoarthritis of left knee [M17.12] 02/21/2018 Obesity, Class II, BMI 35-39.9 [E66.812] 08/22/2018 08/06/2019 Obesity, Class I, BMI 30-34.9 [E66.811] 08/06/2019 02/07/2024 Sleep apnea [G47.30] 09/15/20 (more content not included)... Normal [facility] Cardiology Visit Reporton Cardiology Visit Report [facility] [address] [place] [address] OFFICE VISIT Date of Service: 09/14/24 MR#: [id number] Acct: [id number] Name: MARIE HUTSON Rep #: [id number] 1 : 1950 Provider: Dr. Rubio Simeon MD Age/Sex: 74/M Location: [facility] Status: Signed HPI HPI History of Present Illness Details: This gentleman with history of coronary artery disease status post CABG, status post drug-eluting stent to the distal RCA, is here for follow-up visit. He denies any chest pains or shortness of breath either at rest or with exertion. Denies any palpitations. No orthopnea PND. No ankle edema. Denies any lightheadedness or dizziness. No syncope or presyncope. 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 Accompanied by: Self Is patient in pain?: No Allergies No Known Allergies Allergy (Verified 09/14/24 13:57) Medications ???Medication ???Instructions ???Recorded ???Confirmed ???Type multivitamin with folic acid 400 1 tab PO DAILY vitamin 04/18/16 09/14/24 History mcg tablet (Thera) amlodipine 10 mg tablet 10 mg PO DAILY 01/28/24 09/14/24 History clonidine HCl 0.2 mg tablet 0.2 mg PO BID 01/28/24 09/14/24 History gabapentin 300 mg capsule 300 mg PO DAILY 01/28/24 09/14/24 History lisinopril 40 mg tablet 40 mg PO BID 01/28/24 09/14/24 History aspirin 81 mg tablet,delayed 81 mg PO BREAKFAST #30 tabs 01/30/24 09/14/24 Rx release atorvastatin 80 mg tablet 80 mg PO QHS #30 tabs 01/30/24 09/14/24 Rx clopidogrel 75 mg tablet 75 mg PO QDAY 05/28/24 09/14/24 History metformin 500 mg tablet 1,000 mg PO BID diabetes 05/28/24 09/14/24 History nitroglycerin 0.3 mg sublingual 0.3 mg sublingual Q5M PRN angina 05/28/24 09/14/24 History tablet metoprolol tartrate 25 mg tablet 12.5 mg PO BID 09/14/24 History Ejection fraction %: 60 Have you fallen in the past year?: No PFSH Medical History (Updated 09/14/24 @ 14:[address] Rubio Simeon MD) CAD (coronary artery disease) Diabetes Dyslipidemia Hypertension Type 2 diabetes mellitus without complications Peripheral vascular disease, unspecified Essential (primary) hypertension Atherosclerotic heart disease of hoh coronary artery without angina pectoris Diabetes mellitus, type 2 Former tobacco use Obesity Chest pain NSTEMI (non-ST elevated myocardial infarction) Branch retinal artery occlusion Hyperlipemia Surgical History (Updated 09/14/24 @ 14:[address] Rubio Simeon MD) H/O coronary angioplasty Stented coronary artery (01/29/24) History of coronary artery bypass graft x 3 H/O angioplasty Failed CABG (coronary artery bypass graft) Family History Mother Cancer Father CVA (cerebral vascular accident) Social History household members: spouse Smoking Status: Former smoker alcohol intake: current alcohol intake frequency: a few times a month substance use type: does not use ROS Const Const: Negative for fatigue, weakness, headache(s) or weight gain ENT ENT: Negative for headache(s), dizziness, Nosebleed/epistaxis or balance problems Cardio Chest Pain: No Palpitations: No Edema: None Muscle aches with walking: None Resp Respiratory: Negative for SOB with activity, SOB at rest or SOB orthopnea SOB lying down GI GI: Negative nausea, vomiting or heartburn Musc Musc: Negative for muscle aches/ myalgia, muscle weakness, joint pain or balance problems Neuro Neuro: Negative for dizziness, lightheadedness, near syncope, syncope, headache(s) or weakness Endo Endo: Negative for fatigue Cardiology Exam Const Appearance: comfortable and no acute distress Nutritional Appearance: well nourished Neck Neck: no JVD Carotids: bruit Right Chest Auscultation: Bilateral: Clear to Auscultation Cardio Rate: regular rate Rhythm: regular rhythm Heart sounds: S1 normal and S2 normal Soft murmur audible at the base. Neuro General: patient alert, patient awake and patient oriented x3 Extremities Lower Extremity Edema: None: Bilateral Supplemental Info Supplemental Information Echocardiogram 01/28/2024: Interpretation Summary The estimated ejection fraction is 60 %. Stage 2 diastolic dysfunction. Segmental dysfunction with preserved ejection fraction (see wall motion). Mild concentric left ventricular hypertrophy. The right atrium is mildly enlarged. The left atrium (more content not included)... Normal [facility] ALBUMIN/CREATININE RATIO, UR INEon 09-11-2024 Albumin DL <= 20 mg/L (U) [Mass/Vol] 15.0 mg/L Normal [facility] Comment on above: Order Comment: Speci men Type: URINE SPECIMENOrdering Facility: [facility] Address: [address] [place] [address] Performed By: #### U ACR ####[facility] [id number] [place] [address] [place] Albumin/Creatinine (U) [Mass ratio] 42 mg/g High <30 [facility] Comment on above: Order Comment: Speci men Type: URINE SPECIMENOrdering Facility: [facility] Address: [address] [place] [address] Result Comment: Adul t Male and Female Nephrotic Criteria: <30 mg/g is considered normal to mildly increased 30-300 mg/g is considered moderately increased >300 mg/g is considered severely increased KDIGO. (2013). KDIGO 2012 Clinical Practice Guideline for the Evaluation and Management of Chronic Kidney Disease. Official Journal of the International Society of Nephrology, 3(1), 1-150. Performed By: #### U ACR ####[facility] [id number] [place] [address] [place] Creatinine (U) [Mass/Vol] 35.7 mg/dL Normal 20.0-300.0 [facility] Comment on above: Order Comment: Speci men Type: URINE SPECIMENOrdering Facility: [facility] Address: [address] [place] [address] Performed By: #### U ACR ####[facility] [id number] [place] [address] [place] CBC panel Auto (Bld)on 09-11 Erythrocyte distribution width (RBC) [Ratio] 11.9 % Normal 11.5-15.0 [facility] Comment on above: Order Comment: Speci men Type: BLOOD SPECIMENOrdering Facility: [facility] Address: [address] [place] [address] Performed By: #### 5 8410-2 ####[facility] [id number] [place] [address] [place] Hematocrit (Bld) [Volume fraction] 34.4 % Low 39.0-51.0 [facility] Comment on above: Order Comment: Speci men Type: BLOOD SPECIMENOrdering Facility: [facility] Address: [address] [place] [address] Performed By: #### 5 8410-2 ####[facility] [id number] [place] [address] [place] Hemoglobin (Bld) [Mass/Vol] 12.5 g/dL Low 13.0-17.0 [facility] Comment on above: Order Comment: Speci men Type: BLOOD SPECIMENOrdering Facility: [facility] Address: [address] [place] [address] Performed By: #### 5 8410-2 ####[facility] [id number] [place] [address] [place] MCH (RBC) [Entitic mass] 36.3 pg High 26.0-34.0 [facility] Comment on above: Order Comment: Speci men Type: BLOOD SPECIMENOrdering Facility: [facility] Address: [address] [place] [address] Performed By: #### 5 8410-2 ####[facility] [id number] [place] [address] [place] MCHC (RBC) [Mass/Vol] 36.3 g/dL High 30.5-36.0 [facility] Comment on above: Order Comment: Speci men Type: BLOOD SPECIMENOrdering Facility: [facility] Address: [address] [place] [address] Performed By: #### 5 8410-2 ####[facility] [id number] [place] [address] [place] MCV (RBC) [Entitic vol] 100.0 fL Normal 80.0-100.0 [facility] Comment on above: Order Comment: Speci men Type: BLOOD SPECIMENOrdering Facility: [facility] Address: [address] [place] [address] Performed By: #### 5 8410-2 ####[facility] [id number] [place] [address] [place] Nucleated RBC (Bld) [#/Vol] 10*3/uL Normal <0.01 [facility] Comment on above: Order Comment: Speci men Type: BLOOD SPECIMENOrdering Facility: [facility] Address: [address] [place] [address] Performed By: #### 5 8410-2 ####[facility] [id number] [place] [address] [place] Platelet mean volume (Bld) [Entitic vol] 9.6 fL Normal 9.0-12.7 [facility] Comment on above: Order Comment: Speci men Type: BLOOD SPECIMENOrdering Facility: [facility] Address: [address] [place] [address] Performed By: #### 5 8410-2 ####[facility] [id number] [place] [address] [place] Platelets (Bld) [#/Vol] 219 10*3/uL Normal 150-400 [facility] Comment on above: Order Comment: Speci men Type: BLOOD SPECIMENOrdering Facility: [facility] Address: [address] [place] [address] Performed By: #### 5 8410-2 ####[facility] [id number] [place] [address] [place] RBC (Bld) [#/Vol] 3.44 10*6/uL Low 4.20-6.00 [facility] Comment on above: Order Comment: Speci men Type: BLOOD SPECIMENOrdering Facility: [facility] Address: [address] [place] [address] Performed By: #### 5 8410-2 ####[facility] [id number] [place] [address] [place] WBC (Bld) [#/Vol] 5.93 10*3/uL Normal 3.70-11.00 [facility] Comment on above: Order Comment: Speci men Type: BLOOD SPECIMENOrdering Facility: [facility] Address: [address] [place] [address] Performed By: #### 5 8410-2 ####[facility] [id number] [address] [place] CNOVon 09-11-2024 CNOV Office Visit (INTMWS ) MARIE HUTSON ([id number]) 1950 M Date Time Provider Department 09/11/24 11:00 AM SHER JLUES INTAvWS During your visit today, we recorded the following information about you: Temperature Pulse Blood pressure Weight 97.2 degrees 46/minute 149/68 87.9 kg Height 1.778 m Sher Jules MD 09/11/2024 12:11 PM Signed This note was created using Win[employer]Candy[employer]. Subjective Patient presents with: 6 Month Exam Marie Hutson is a 74 year old male. He was admitted in January for NSTEMI and had LISANDRO to the distal RCA. [facility]. His metoprolol was decreased to 12.5 mg BID due to bradycardia. His hypertension had been elevating. Diabetes was controlled. He was scheduled to see the [facility] next week for a follow up. Review of Systems Constitutional: Negative for fatigue and fever. Respiratory: Negative for cough, chest tightness and shortness of breath. Cardiovascular: Negative for chest pain, palpitations and leg swelling. Gastrointestinal: Negative. Neurological: Negative for dizziness and headaches. 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 Obesity, Class I, Bmi 30-34.9 Social History Tobacco Use Smoking status: Former Current packs/day: 0.00 Average packs/day: 1 pack/day for 34.0 years (34.0 ttl pk-yrs) Types: Cigarettes Start date: 10/28/1968 Quit date: 10/28/2002 Years since quittin.8 Passive exposure: Past Smokeless tobacco: Never Vaping Use Vaping status: Never Used Substance Use Topics Alcohol use: Yes Alcohol/week: 30.0 standard drinks of alcohol Types: 30 Cans of Beer (12oz) per week Comment: 6 beers per day, sometimes less Drug use: Yes Frequency: 2.0 times per week Comment: marijuana Current Outpatient Medications Medication Sig atorvastatin (LIPITOR) 80 mg tablet Take 1 tablet by mouth daily at bedtime. For cholesterol. gabapentin (NEURONTIN) 300 mg capsule Take 1 capsule by mouth daily at bedtime for 180 days. nitroglycerin sublingual (NITROQUICK) 0.3 mg SL tablet Dissolve 1 tablet under the tongue every 5 minutes as needed for chest pain. metFORMIN (GLUCOPHAGE) 500 mg tablet Take 2 tablets by mouth two times a day with meals. clopidogrel (PLAVIX) 75 mg tablet Take 1 tablet by mouth once daily. lisinopril (ZESTRIL) 40 mg tablet Take 1 tablet by mouth two times a day. amLODIPine (NORVASC) 10 mg tablet Take 1 tablet by mouth once daily. cloNIDine HCl (CATAPRES) 0.2 mg tablet Take 1 tablet by mouth two times a day. aspirin, enteric coated (ASPIRIN, ENTERIC COATED) 81 mg EC tablet Take 1 tablet by mouth once daily. therapeutic multivitamin tablet Take 1 tablet by mouth daily with breakfast. blood sugar diagnostic (ONE TOUCH ULTRA TEST) test strip Use as instructed blood sugar diagnostic (ONE TOUCH ULTRA TEST) test strip TEST BLOOD SUGARS ONCE DAILY lancets(ONE TOUCH ULTRASOFT LANCETS) Test blood sugar once daily. metoprolol tartrate, short acting, (LOPRESSOR) 25 mg tablet Take 0.5 tablets by mouth two times a day. No current facility-administered medications for this visit. Objective BP 149/68 (BP Site: Right Arm) Pulse (!) 46 Temp 36.2 ?C (97.2 ?F) Ht 177.8 cm (5' 10) Wt 87.9 kg (193 lb 12.6 oz) SpO2 99% BMI 27.81 kg/m? Physical Exam Constitutional: Appearance: Normal appearance. Cardiovascular: Rate and Rhythm: Regular rhythm. Bradycardia present. Heart sounds: No murmur heard. No gallop. Pulmonary: Breath sounds: Normal breath sounds. Abdominal: Tenderness: There is no abdominal tenderness. Musculoskeletal: Right lower leg: No edema. Left lower leg: No edema. Neurological: Mental Status: He is alert. Feet:Shoes and socks removed, No deformities, ulcers, calluses, abnormal pulses Decreased bilaterally, not sensitive to monofilament in both forefeet, and nails notable for Deformed, Hypertrophic, or Yellowish Assessment and Plan ASSESSMENT/PLAN: 1. Coronary artery disease involving hoh coronary artery of hoh heart without angina pectoris - ICD9: 414.01, ICD10: I25.10 (primary diagnosis) Stable. 2. Stented coronary artery - ICD9: V45.82, ICD10: Z95.5 Colonoscopy deferred till January 2025. 3. Essential hypertension - ICD9: 401.9, ICD10: I10 - Worsening control - Continue current medications - Reviewed risks of hypertension and principles of treatment - I defer to his choke reamer. - COMPLETE B (more content not included)... Normal [facility] Comprehensive metabolic 2000 panelon 09-11-2024 Albumin [Mass/Vol] 4.2 g/dL Normal 3.9-4.9 [facility] Comment on above: Order Comment: Speci men Type: BLOOD SPECIMENOrdering Facility: [facility] Address: [address] [place] [address] Performed By: #### 2 4323-8, LIPNF ####[facility] [id number] [place] [address] [place] ALP [Catalytic activity/Vol] 91 U/L Normal 38-113 [facility] Comment on above: Order Comment: Speci men Type: BLOOD SPECIMENOrdering Facility: [facility] Address: [address] [place] [address] Performed By: #### 2 4323-8, LIPNF ####[facility] [id number] [place] [address] [place] ALT [Catalytic activity/Vol] 18 U/L Normal 10-54 [facility] Comment on above: Order Comment: Speci men Type: BLOOD SPECIMENOrdering Facility: [facility] Address: [address] [place] [address] Performed By: #### 2 4323-8, LIPNF ####[facility] [id number] [place] [address] [place] Anion gap [Moles/Vol] 8 mmol/L Normal 8-15 [facility] Comment on above: Order Comment: Speci men Type: BLOOD SPECIMENOrdering Facility: [facility] Address: [address] [place] [address] Performed By: #### 2 4323-8, LIPNF ####[facility] [id number] [place] [address] [place] AST [Catalytic activity/Vol] 27 U/L Normal 14-40 [facility] Comment on above: Order Comment: Speci men Type: BLOOD SPECIMENOrdering Facility: [facility] Address: [address] [place] [address] Performed By: #### 2 4323-8, LIPNF ####[facility] [id number] [place] [address] [place] Bilirubin [Mass/Vol] 1.0 mg/dL Normal 0.2-1.3 [facility] Comment on above: Order Comment: Speci men Type: BLOOD SPECIMENOrdering Facility: [facility] Address: [address] [place] [address] Performed By: #### 2 4323-8, LIPNF ####[facility] [id number] [place] [address] [place] Calcium [Mass/Vol] 9.6 mg/dL Normal 8.5-10.2 [facility] Comment on above: Order Comment: Speci men Type: BLOOD SPECIMENOrdering Facility: [facility] Address: [address] [place] [address] Performed By: #### 2 4323-8, LIPNF ####[facility] [id number] [place] [address] [place] Chloride [Moles/Vol] 91 mmol/L Low 98-107 [facility] Comment on above: Order Comment: Speci men Type: BLOOD SPECIMENOrdering Facility: [facility] Address: [address] [place], [place] [address] Performed By: #### 2 4323-8, LIPNF ####[facility] [id number] [place] [address] [place] CO2 [Moles/Vol] 26 mmol/L Normal 22-30 [facility] Comment on above: Order Comment: Speci men Type: BLOOD SPECIMENOrdering Facility: [facility] Address: [address] [place] [address] Performed By: #### 2 4323-8, LIPNF ####[facility] [id number] [place] [address] [place] Creatinine [Mass/Vol] 0.59 mg/dL Low 0.73-1.22 [facility] Comment on above: Order Comment: Speci men Type: BLOOD SPECIMENOrdering Facility: [facility] Address: [address] [place] [address] Performed By: #### 2 4323-8, LIPNF ####[facility] [id number] [place] [address] [place] Creatinine and Glomerular filtration rate.predicted panel (S/P/Bld) 103 mL/min/1.73m??? Normal >=60 [facility] Comment on above: Order Comment: Speci men Type: BLOOD SPECIMENOrdering Facility: [facility] Address: [address] [place] [address] Result Comment: Ingrid mated Glomerular Filtration Rate (eGFR) is calculated using the 2020 CKD-EPI creatinine equation. This equation utilizes serum creatinine, sex, and age as parameters. The creatinine assay has traceable calibration to isotope dilution-mass spectrometry. Refer to KDIGO guidelines for clinical interpretation. In patients with unstable renal function, e.g. those with acute kidney injury, the eGFR may not accurately reflect actual GFR. Performed By: #### 2 4323-8, LIPNF ####[facility] LABCLIA [id number] [place] [address] [place] Glucose [Mass/Vol] 106 mg/dL High 74-99 [facility] Comment on above: Order Comment: Speci men Type: BLOOD SPECIMENOrdering Facility: [facility] Address: [address] [place] [address] Result Comment: The [place] Diabetes Association (ADA) provides guidance for cutoff values for fasting glucose and random glucose. The ADA defines fasting as no caloric intake for at least 8 hours. Fasting plasma glucose results between 100 to 125 mg/dL indicate increased risk for diabetes (prediabetes). Fasting plasma glucose results greater than or equal to 126 mg/dL meet the criteria for diagnosis of diabetes. In the absence of unequivocal hyperglycemia, results should be confirmed by repeat testing. In a patient with classic symptoms of hyperglycemia or hyperglycemic crisis, random plasma glucose results greater than or equal to 200 mg/dL meet the criteria for diagnosis of diabetes. Reference: Standards of Medical Care in Diabetes 2016, [place] Diabetes Association. Diabetes Care. 2016.39(Suppl 1). Performed By: #### 2 4323-8, LIPNF ####[facility] LABCLIA [id number] [place] [address] [place] Potassium [Moles/Vol] 5.4 mmol/L High 3.7-5.1 [facility] Comment on above: Order Comment: Speci men Type: BLOOD SPECIMENOrdering Facility: [facility] Address: [address] [place] [address] Performed By: #### 2 4323-8, LIPNF ####[facility] LABIA [id number] [place] [address] [place] Protein [Mass/Vol] 6.5 g/dL Normal 6.3-8.0 [facility] Comment on above: Order Comment: Speci men Type: BLOOD SPECIMENOrdering Facility: [facility] Address: [address] [place] [address] Performed By: #### 2 4323-8, LIPNF ####[facility] LABCLIA [id number] [place] [address] [place] Sodium [Moles/Vol] 125 mmol/L Low 136-144 [facility] Comment on above: Order Comment: Speci men Type: BLOOD SPECIMENOrdering Facility: [facility] Address: [address] [place] [address] Performed By: #### 2 4323-8, LIPNF ####[facility] LABCLIA [id number] [place] [address] [place] Urea nitrogen [Mass/Vol] 10 mg/dL Normal 9-24 [facility] Comment on above: Order Comment: Speci men Type: BLOOD SPECIMENOrdering Facility: [facility] Address: [address] [place] [address] Performed By: #### 2 4323-8, LIPNF ####[facility] LABCLIA [id number] [place] [address] [place] HbA1c (Bld)on 09-11-2024 Average glucose Estimated from glycated hemoglobin (Bld) [Mass/Vol] 114 mg/dL Normal [facility] Comment on above: Order Comment: Speci men Type: BLOOD SPECIMENOrdering Facility: [facility] Address: [address] [place] [address] Result Comment: eAG: (Estimated average glucose) is a calculated value from HgbA1c and is bank representative of the average blood glucose level in the last 2-3 month period. Performed By: #### 5 5454-3 ####[facility]CLIA [id number] [place] [address] [place] HbA1c (Bld) [Mass fraction] 5.6 % Normal 4.3-5.6 [facility] Comment on above: Order Comment: Speci men Type: BLOOD SPECIMENOrdering Facility: [facility] Address: [address] [place] [address] Result Comment: Amer [place] Diabetes Association guidelines indicate that patients with HgbA1c in the range 5.7-6.4% are at increased risk for development of diabetes, and intervention by lifestyle modification may be beneficial. HgbA1c greater or equal to 6.5% is considered diagnostic of diabetes. Performed By: #### 5 5454-3 ####[facility] LABCLIA [id number] [place] [address] [place] LIPID PANEL, NONFASTINGon Cholesterol [Mass/Vol] 123 mg/dL Normal <200 [facility] Comment on above: Order Comment: Speci men Type: BLOOD SPECIMENOrdering Facility: [facility] Address: [address] [place] [address] Result Comment: <200 mg/dL, Desirable 200-239 mg/dL, Borderline high >239 mg/dL, High Performed By: #### 2 4323-8, LIPNF ####[facility] LABCLIA [id number] [place] [address] [place] HDL CHOLESTEROL, NF 96 mg/dL Normal >39 [facility] Comment on above: Order Comment: Speci men Type: BLOOD SPECIMENOrdering Facility: [facility] Address: [address] [place] [address] Result Comment: 40-5 9 mg/dL, Acceptable >59 mg/dL, High: Negative risk factor for coronary heart disease <40 mg/dL, Low: Positive risk factor for coronary heart disease Performed By: #### 2 4323-8, LIPNF ####[facility] LABCLIA [id number] [address] [place] LDL CHOLESTEROL, NF 18 mg/dL Normal <100 [facility] Comment on above: Order Comment: Speci men Type: BLOOD SPECIMENOrdering Facility: [facility] Address: [address] [place] [address] Result Comment: <100 mg/dL, Optimal 100-129 mg/dL, Near optimal/above optimal 130-159 mg/dL, Borderline high 160-189 mg/dL, High >189 mg/dL, Very high Secondary prevention optimal LDL Cholesterol levels are recommended to be < 70 mg/dL Performed By: #### 2 4323-8, LIPNF ####[facility] LABCLIA [id number] [place] [address] [place] LDL/HDL RATIO, NF 0.19 mg/dL Normal <2.54 [facility] Comment on above: Order Comment: Speci men Type: BLOOD SPECIMENOrdering Facility: [facility] Address: [address] [place] [address] Result Comment: Ramon eng[place]: 1. National Cholesterol Education Program ATP III Guideline At-A-Glance Quick Desk Reference: National Heart, Lung, and Blood [place]. National Institutes of Health. 2001: NIH Publication No. 01-3305. 2. An International Atherosclerosis Society position paper: global recommendations for the management of dyslipidemia: executive summary, Atherosclerosis. 2014: 232(2):410-413. Performed By: #### 2 4323-8, LIPNF ####[facility] LABCLIA [id number] [place] [address] [place] NON HDL CHOL, NF 27 mg/dL Normal <130 [facility] Comment on above: Order Comment: Treasurei men Type: BLOOD SPECIMENOrdering Facility: [facility] Address: [address] [place] [address] Result Comment: <130 mg/dL, Optimal 130-159 mg/dL, Near optimal/above optimal 160-189 mg/dL, Borderline high 190-219 mg/dL, High >219 mg/dL, Very high Secondary prevention optimal non HDL Cholesterol levels are recommended to be <100 mg/dL Performed By: #### 2 4323-8, LIPNF ####[facility] LABCLIA [id number] [place] [address] [place] T CHOL/HDL RATIO NF 1.28 mg/dL Normal <5.10 [facility] Comment on above: Order Comment: Speci men Type: BLOOD SPECIMENOrdering Facility: [facility] Address: [address] [place] [address] Performed By: #### 2 4323-8, LIPNF ####[facility] LABCLIA [id number] [place] [address] [place] TRIGLYCERIDES, NF 47 mg/dL Normal <150 [facility] Comment on above: Order Comment: Speci men Type: BLOOD SPECIMENOrdering Facility: [facility] Address: [address] [id number] Result Comment: <150 mg/dL, Normal 150-199 mg/dL, Borderline high 200-499 mg/dL, High >499 mg/dL, Very high Performed By: #### 2 4323-8, LIPNF ####[facility] LABCLIA [id number] [place] [id number] [place] VLDL CHOLESTEROL, NF 9 mg/dL Normal <30 [facility] Comment on above: Order Comment: Speci men Type: BLOOD SPECIMENOrdering Facility: [facility] Address: [address] [place] [address] Performed By: #### 2 4323-8, LIPNF ####[facility] LABCLIA [id number] [place] [address] [place] Coronary Angiography CTon Coronary Angiography CT [facility] Imaging Services [address] [place] [address] 06/30/24 1112 MR#: [id number] Acct: [id number] Name: MARIE HUTSON Rep #: [id number] : 1950 74 From: Nain Segundo MD PCP: Dr. Sher Jules MD Status:REG CLI Y Location: CT CCTA w/Cont Coronary Arteries Date of Study:: 06/23/24 Coronary Calcium Scoring: High-resolution Computed Tomographic imaging of the chest was performed on [06/23/2024], with particular attention paid to the coronary arteries. Intravenous contrast agent was administered per protocol and images reconstructed and displayed. LEFT MAIN CORONARY ARTERY: Severely diseased distally [] LEFT ANTERIOR DESCENDING CORONARY ARTERY: This vessel was noted to be severely calcified in the proximal and mid segment and subtotally occluded coronary calcium score 1284 this vessel arises from the left main coronary artery. The vessel was noted to be totally occluded in the midsegment. [] LEFT CIRCUMFLEX CORONARY ARTERY: Calcified in the proximal and mid segment. Coronary calcium score is 1006 [] RIGHT CORONARY ARTERY: This vessel is also noted to be calcified in the proximal right coronary artery with a short stent noted in the midsegment and a longer stent noted in the distal segment. This vessel is noted to be patent. Calcium score is 1837 though this may be falsely elevated due to the presence of the stent. There is a left internal mammary artery to the left anterior descending artery which is noted to be patent and is seen in its entirety. There is a saphenous vein graft to the left circumflex artery which is noted to be patent with no significant disease noted. The distal vessels are also noted to be patent. No other bypass grafts are present. [] THORACIC AORTA: Isolated calcification noted [] PULMONARY ARTERY: Normal [] LEFT ATRIUM/APPENDAGE: [] MITRAL VALVE: [] AORTIC VALVE: Trileaflet [] LEFT VENTRICLE: [] CORONARY CALCIUM SCORE: Coronary calcium score of 4887 [] 06/30/24 1116 Date Nain Segundo MD Cosigner Signature (if applicable): Date CC: TANIYA Cox; Dr. Nain Segundo MD; Dr. Sher Jules MD S[facility] Office Visit (PODIWS ) MARIE HUTSON ([id number]) 1950 M Date Time Provider Department 06/26/24 1:00 PM GOMEZ SCHWABS During your visit today, we recorded the following information about you: Cheryle Merritt LPN 06/26/2024 1:20 PM Signed AMB ROOMING INTAKE FLOWSHEET DATA Patient presents with: Left Foot - Established Patient, Follow Up, Diabetic Foot Care Right Foot - Established Patient, Follow Up, Diabetic Foot Care Cheryle Merritt LPN Gomez Schwab 06/26/2024 1:20 PM Signed Last saw pcp: 03/11/24 Subjective: Patient presents to clinic c/o painful toenails. They state that the nails are especially painful with shoe gear and pressure. Patient states that nails 1-5 b/l are painful. Patient admits to being diabetic. No other pedal complaints at this time. Patient states no change in medications or medical history since last visit. Objective: Patient presents to clinic ambulating in [facility] Vasc: DP and PT pulses are faintly palpable bilateral. CFT is less than 5 seconds bilateral. Skin temperature is warm to cool proximal to distal bilateral. There is mild edema or varicosities noted. Neuro: Protective sensation is absent to the foot and toes when tested with the 5.07 SWM bilateral. Vibratory sensation is absent at the hallux IPJ bilateral. The hallux is downgoing bilateral. Derm: Nails 1-5 b/l are painful, discolored-yellow, thick, crumbly, dystrophic and with subungal debris. Skin is of normal turgor, texture and hair growth is absent bilateral. There are no hyperkeratosis, ulcerations, scars, verruca or other lesions noted. There is peeling skin noted to elft 4th toe but no underlying ulceration noted. Ortho: Muscle strength is 5/5 for all pedal groups tested. Ankle joint DF is decreased with the knee extended with no pain or crepitus noted. 1st MPJ ROM is decreased bilateral. Assessment: (B35.1) Onychomycosis (primary encounter diagnosis) (M79.675) Pain in toe of left foot (M79.674) Pain in toe of right foot (I73.9) PAD (peripheral artery disease) (HCC) Diabetic neuropathy type II Plan: Patient was seen and evaluated. Nails 1-5 bilateral were debrided in length and thickness. Patient was instructed on the continued importance of diabetic foot care along with proper diet and keeping their blood sugar under control to prevent complications. Stressed the importance of avoiding barefoot walking and wearing good shoes and inspection of feet. Small area of peeling skin to left 4th toe. This was removed with alchol pad. No underlying ulceraiton. Patient is to RTC in 3-4 months. Gomez Schwab DPM Referring Provider: GOMEZ SCHWAB [[id number]] Allergies As of Date: 06/26/2024 (No Known Allergies) Date Reviewed: 06/26/2024 Reviewed by: Cheryle Merritt LPN - Fully Assessed Reason for Visit: Established Patient [175] Follow Up [171] Diabetic Foot Care [916] Established Patient [175] Follow Up [171] Diabetic Foot Care [916] Primary Visit Diagnosis:Onychomycosis [B35.1] Other Visit Diagnoses:Pain in toe of left foot [M79.675] Pain in toe of right foot [M79.674] PAD (peripheral artery disease) ([facility]) [I73.9] Diabetic polyneuropathy associated with type 2 diabetes mellitus ([facility]) [E11.42] Prescriptions as of 06/26/2024 - nitroglycerin sublingual (NITROQUICK) 0.3 mg SL tablet Dissolve 1 tablet under the tongue every 5 minutes as needed for chest pain. - metFORMIN (GLUCOPHAGE) 500 mg tablet Take 2 tablets by mouth two times a day with meals. - clopidogrel (PLAVIX) 75 mg tablet Take 1 tablet by mouth once daily. - metoprolol tartrate, short acting, (LOPRESSOR) 25 mg tablet Take 2 tablets by mouth every 12 hours. - lisinopril (ZESTRIL) 40 mg tablet Take 1 tablet by mouth two times a day. - amLODIPine (NORVASC) 10 mg tablet Take 1 tablet by mouth once daily. - cloNIDine HCl (CATAPRES) 0.2 mg tablet Take 1 tablet by mouth two times a day. - atorvastatin (LIPITOR) 80 mg tablet Take 1 tablet by mouth daily at bedtime. For cholesterol. - aspirin, enteric coated (ASPIRIN, ENTERIC COATED) 81 mg EC tablet Take 1 tablet by mouth once daily. - gabapentin (NEURONTIN) 300 mg capsule Take 1 capsule by mouth daily at bedtime for 180 days. - Miscellaneous Medical Supply (COMPRESSION STOCKINGS) [facility] COMPRESSION STOCKINGS KNEE HI 20-30 WT M79.89 - therapeutic multivitamin tablet Take 1 tablet by mouth daily with breakfast. - blood sugar diagnostic (ONE TOUCH ULTRA TEST) test strip Use as instructed - blood sugar diagnostic (ONE TOUCH ULTRA TEST) test strip TEST BLOOD SUGARS ONCE DAILY - lancets(ONE TOUCH ULTRASOFT LANCETS) Test blood sugar once daily. Problem List As Of Date 06/26/2024 Noted Resolved Essential hypertension [I10] 12/29/2007 Hyperlipidemia with target LDL less than 70 [E7*12/29/2007 Impotence of organic origin [N52.9] 12/29/2007 (more content not included)... Normal [facility] Cardiology Visit Reporton Cardiology Visit Report [facility] [address] [place] [address] OFFICE VISIT Date of Service: 06/26/24 MR#: [id number] Acct: [id number] Name: MARIE HUTSON Rep #: [id number] : 1950 Provider: TANIYA lopez Age/Sex: 74/M Location: [facility] Status: Signed HPI HPI History of Present Illness Details: This is a 74 year old gentleman who presents to the office today for a cardiovascular follow-up visit. He has a past medical history significant for coronary artery disease with three-vessel CABG (WRIGHT LAD, SVG-PDA, SVG-OM 1) in 2012 at the [facility]. He had presented to the emergency room in January of 2024. He had been having discomfort in his lower arm for a few days, and then developed discomfort in his left upper arm and some burning sensation in his epigastrium and retrosternal region. He therefore presented to the emergency room. In the emergency room, an EKG was done. It showed diffuse ST depressions. The ER physician also informed me that he became hypoxic and started to wheeze. He underwent a cardiac catheterization on 01/29/2024, which demonstrated 90-95% heavily calcified distal LMCA 100% Mid LAD; WRIGHT to LAD patent 70% Prox Ramus, SVG to Lateral Ramus patent, 95% ostial Lateral Ramus filling Ramus retrogradely, Couldn't find SVG to RPDA, suspect total. 80-90% distal RCA, Heavily calcified thoracic aorta. No significant AR. He underwent successful PTCA/LISANDRO distal RCA. It was recommended he have a staged PCI for distal LMCA into ramus with rotational atherectomy versus PCI to ostial LAD ramus through SVG plus PCI distal LMCA into LCx. He states that he followed with his choke reamer at [facility] Dr. Ricks after his hospitalization. From a cardiac standpoint, the patient is doing well. He denies any palpitations, chest pain, pressure or heaviness. He denies SOB, Orthopnea, and PND. He does not have bleeding issues; no blood in urine, stool or nosebleeds. He denies any decrease in energy level, myalgias, or claudication. He does not have edema, or sudden weight gain. He denies dizziness, lightheadedness, syncopal or near syncopal episodes, and headaches. 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 Required: No Is patient in pain?: No Allergies No Known Allergies Allergy (Verified 06/26/24 10:04) Medications ???Medication ???Instructions ???Recorded ???Confirmed ???Type multivitamin with folic acid 400 1 tab PO DAILY vitamin 04/18/16 06/26/24 History mcg tablet (Thera) amlodipine 10 mg tablet 10 mg PO DAILY 01/28/24 06/26/24 History clonidine HCl 0.2 mg tablet 0.2 mg PO BID 01/28/24 06/26/24 History gabapentin 300 mg capsule 300 mg PO DAILY 01/28/24 06/26/24 History lisinopril 40 mg tablet 40 mg PO BID 01/28/24 06/26/24 History aspirin 81 mg tablet,delayed 81 mg PO BREAKFAST #30 tabs 01/30/24 06/26/24 Rx release atorvastatin 80 mg tablet 80 mg PO QHS #30 tabs 01/30/24 06/26/24 Rx clopidogrel 75 mg tablet 75 mg PO QDAY 05/28/24 06/26/24 History metformin 500 mg tablet 1,000 mg PO BID diabetes 05/28/24 06/26/24 History nitroglycerin 0.3 mg sublingual 0.3 mg sublingual Q5M PRN angina 05/28/24 06/26/24 History tablet metoprolol tartrate 25 mg tablet 12.5 mg (1/2 x 25 mg) PO DAILY #60 06/26/24 06/26/24 Rx tabs Have you fallen in the past year?: No PFSH Medical History Dyslipidemia Hypertension Type 2 diabetes mellitus without complications Peripheral vascular disease, unspecified Essential (primary) hypertension Atherosclerotic heart disease of hoh coronary artery without angina pectoris Diabetes mellitus, type 2 Former tobacco use Obesity Chest pain NSTEMI (non-ST elevated myocardial infarction) Branch retinal artery occlusion CAD (coronary artery disease) Hyperlipemia Diabetes Surgical History H/O coronary angioplasty Stented coronary artery (01/29/24) History of coronary artery bypass graft x 3 H/O angioplasty Failed CABG (coronary artery bypass graft) Family History Mother Cancer Father CVA (cerebral vascular accident) Social History household members: spouse Smoking Status: Former smoker alcohol intake: current alcohol intake frequency: a few times a month substance use type: does not use ROS Const Const: Negative for fatigue, weakness, (more content not included)... Normal [facility] CREATININE FINGERSTICKon CREATININE WB < 1.0 Normal 0.70-1.30 [facility] Comment on above: Performed By: #### L 9100.0200 ####[facility] [id number] [place], [place], [id number] EGFR WB > 60.0000 Normal >60 [facility] Comment on above: Performed By: #### L 9100.0200 ####[facility] [id number] [facility] [place], [address] Cardiac Onl yon 06-23-[address] Cardiac Only [facility] Imaging Services [address] [place], [place] [address] Limited Chest CT Cardiac Only MR#: [id number] Acct: [id number] Name: MARIE HUTSON Rep #: [id number] : 1950 M 74 From: Ravi mcghee MD PCP: Dr. Sher Jules MD Status: [facility] Study: Limited Chest CT Cardiac Only Date of Exam: Exam# [id number] Ordering Dr: Naz Cox CDL BULK DRIVER CDL BULK DRIVER- C [id number] STUDY: CT CHEST WITH T WITHOUT CONTRAST REASON FOR EXAM: Male, 74 years old. Atherosclerotic heart disease of hoh coronary artery with limited chest over read only RADIATION DOSAGE (If Supplied By Facility): CTDIvol = ( 29.76 ) mGy, DLP = ( 1509.56 ) mGycm TECHNIQUE: Transaxial imaging was performed pre and post intravenous administration of IV 55mL Isovue-370. Cardiac examination. Individualized dose optimization techniques were used for this CT. COMPARISON: Comparison is made with prior CT of the chest dated January 28, 2024. FINDINGS: CHEST The lungs are normal. There is no demonstrated pleural abnormality. Sternal cerclage wires and vascular clips are present from a prior sternotomy and coronary artery bypass graft procedure (CABG). There are calcifications of the coronary arteries. There are small lymph nodes within the mediastinum, which are normal in size and morphology most compatible with reactive lymph hyperplasia. Normal hilar regions. Normal unenhanced pulmonary arteries. There is atherosclerotic calcification of the aortic arch. There are degenerative changes of the thoracic spine. Fatty infiltration of the liver. CT/Limited Chest CT Cardiac Only IMPRESSION: Coronary calcification. Electronically Signed: Ravi Osborn MD at 14:29 EDT , CC: TANIYA Cox; Dr. Sher Jules MD Strapping Machine Tender: Signed Normal [facility] 12 Lead [place] [facility] [place]-28-2024 12 Lead EKG performed by [facility] [address] [place] [address] 12 Lead EKG [place] [facility] 05/28/241042 MR#: [id number] Acct: [id number] Name: MARIE HUTSON Rep #: [id number] : 1950 74 From: Naz Cox NP CDL BULK DRIVER-C Attending Dr: ROSI SinhaC Status: DEP Susan CASE Ordering Dr: Naz Cox NP CDL BULK DRIVER-C Date: 05/28/24 Location: [facility] Sex: M C Admitted: BMS/12 Lead EKG performed [place] [facility] [place] Report Interpretation ---Marked sinus Bradycardia -First degree A-V block Janina = 244BORDERLINE RHYTHMElectronically signed on 06/03/2024 at 07:35 by Nain Segundo Software Version [id number] 06/03/2438 Date Naz MONAHAN CC: Dr. Sher Jules MD Date Dictated: 05/28/241042 Date Transcribed: 05/28/241042 Strapping Machine Tender: MASOOD Signed Normal [facility] Cardiology Visit Reporton Cardiology Visit Report [facility] [address] [place] [address] OFFICE VISIT Date of Service: 05/28/24 MR#: [id number] Acct: [id number] Name: MARIE HUTSON Rep #: [id number] : 1950 Provider: TANIYA lopez Age/Sex: 74/M Location: [facility] Status: Signed [facility] History of Present Illness Details: This is a 74 year old gentleman who presents to the office today for a cardiovascular follow-up visit. He has a past medical history significant for coronary artery disease with three-vessel CABG (WRIGHT LAD, SVG-PDA, SVG-OM 1) in 2012 at the [facility]. He had presented to the emergency room in January of 2024. He had been having discomfort in his lower arm for a few days, and then developed discomfort in his left upper arm and some burning sensation in his epigastrium and retrosternal region. He therefore presented to the emergency room. In the emergency room, an EKG was done. It showed diffuse ST depressions. The ER physician also informed me that he became hypoxic and started to wheeze. He underwent a cardiac catheterization on 01/29/2024, which demonstrated 90-95% heavily calcified distal LMCA 100% Mid LAD; WRIGHT to LAD patent 70% Prox Ramus, SVG to Lateral Ramus patent, 95% ostial Lateral Ramus filling Ramus retrogradely, Couldn't find SVG to RPDA, suspect total. 80-90% distal RCA, Heavily calcified thoracic aorta. No significant AR. He underwent successful PTCA/LISANDRO distal RCA. It was recommended he have a staged PCI for distal LMCA into ramus with rotational atherectomy versus PCI to ostial LAD ramus through SVG plus PCI distal LMCA into LCx. He states that he followed with his choke reamer at [facility] after his hospitalization. From a cardiac standpoint, the patient is doing well. He denies any palpitations, chest pain, pressure or heaviness. He denies SOB, Orthopnea, and PND. He does not have bleeding issues; no blood in urine, stool or nosebleeds. He denies any decrease in energy level, myalgias, or claudication. He does not have edema, or sudden weight gain. He denies dizziness, lightheadedness, syncopal or near syncopal episodes, and headaches. He just finished cardiac rehab yesterday. Intake Vital Signs 04/20/24 05:32 05/20/24 08:53 05/28/24 10:36 Height 5 ft 10 in 5 ft 10 in 5 ft 10 in Weight: 194 lb BMI 27.8 BP 143/59 H Blood Pressure Location Rt brachial Position Sitting Respiration 16 Pulse 42 L Pulse Source Monitor Pulse Oximetry (%) 98 Oxygen Delivery Method room air Intake Visit Reasons: S/P [facility] Cath 01/28 Accompanied by: Self Is patient in pain?: Yes (Left wrist) Pain scale (1-10): 4 Allergies No Known Allergies Allergy (Verified 05/28/24 10:51) Medications ???Medication ???Instructions ???Recorded ???Confirmed ???Type multivitamin with folic acid 400 1 tab PO DAILY vitamin 04/18/16 05/28/24 History mcg tablet (Thera) amlodipine 10 mg tablet 10 mg PO DAILY 01/28/24 05/28/24 History clonidine HCl 0.2 mg tablet 0.2 mg PO BID 01/28/24 05/28/24 History gabapentin 300 mg capsule 300 mg PO DAILY 01/28/24 05/28/24 History lisinopril 40 mg tablet 40 mg PO BID 01/28/24 05/28/24 History aspirin 81 mg tablet,delayed 81 mg PO BREAKFAST #30 tabs 01/30/24 05/28/24 Rx release atorvastatin 80 mg tablet 80 mg PO QHS #30 tabs 01/30/24 05/28/24 Rx metoprolol tartrate 25 mg tablet 25 mg PO BID #60 tabs 01/30/24 05/28/24 Rx carvedilol 12.5 mg tablet 12.5 mg PO BID 05/28/24 05/28/24 History clopidogrel 75 mg tablet 75 mg PO QDAY 05/28/24 05/28/24 History metformin 500 mg tablet 1,000 mg PO BID diabetes 05/28/24 05/28/24 History nitroglycerin 0.3 mg sublingual 0.3 mg sublingual PRN angina 05/28/24 05/28/24 History tablet Ejection fraction %: 60 Have you fallen in the past year?: No PFSH Medical History Dyslipidemia Hypertension Type 2 diabetes mellitus without complications Peripheral vascular disease, unspecified Essential (primary) hypertension Atherosclerotic heart disease of hoh coronary artery without angina pectoris Diabetes mellitus, type 2 Former tobacco use Obesity Chest pain NSTEMI (non-ST elevated myocardial infarction) Branch retinal artery occlusion CAD (coronary artery disease) Hyperlipemia Diabetes Surgical History H/O coronary angioplasty Stented coronary artery (01/29/24) History of coronary artery bypass graft x 3 H/O angioplasty Failed CABG (coronary artery bypass graft) Family History Mother Cancer Father CVA (cerebral vascular accident) Social History household members: spouse Smoking S (more content not included)... Normal [facility] NM CARDIAC PERF STRESS/PHARM on 03-12-2024 NM CARDIAC PERF STRESS/PHARM * * *Final Report* * * DATE OF EXAM: Mar 12 2024 9:00AM [facility] 0006 - NM CARDIAC PERF STRESS/PHARM / PROCEDURE REASON: multiple diagnoses * * * * Physician Interpretation * * * * Stress Supervisor Home Economics Report: [facility] Date of service: 03/12/2024 7:31:04 AM Supervising physician: Cecile Woodson MD PATIENT: Name: MR. MARIE HUTSON Age: 74 years Gender: M The supervising physician was in the department and immediately available. * * * Final * * * ---- PATIENT: Name: MR. MARIE HUTSON Age: 74 years Gender: M CONCLUSIONS: 1. SPECT Perfusion Study: Abnormal. 2. There is mild (<10%) ischemia in the territory of the LAD. - SSS in this Region 1 (basal anteroseptum). 3. There is mild (<10%) ischemia in the territory of the RCA superimposed on small <10%) fixed perfusion defect in RCA (inferior apex-base; basal inferoseptum and possible RCA or Cx: basal inferolateral region). In this Region - Summed Difference Score of 4. 4. Left ventricle is normal in size. The left ventricle systolic function is normal. 5. Right ventricle is normal in size. The right ventricle systolic function is normal. 6. This is an intermediate risk scan. Gated Stress IR:3D LVEF % 56 Prior Study Comparison Prior nuclear cardiology exam was performed on 11/07/2009. Nuclear Med Report:1-Day Gated SPECT Myocardial Perfusion with Regadenoson Stress: Myocardial perfusion imaging was performed at rest 30 minutes following the IV injection of the radiotracer. The patient received 0.4 mg of regadenoson, via rapid IV push, immediately followed by radiotracer IV. Gated post stress tomographic imaging was performed 30 to 60 minutes later. See administered radiotracer and doses below. [facility] Date of service: 03/12/2024 7:31:04 AM Ordering Physician: BIB PATTERSON. Requesting Physician: Indication: CP - ECG uniterpretable OR unable to exercise Interpreting physician: Chuck Borden MD Previous Cardiovascular Interventions: CABG (2012) PCI (2023) : Stents x2 Height: 170.18 cm BSA: 2.26 m? Weight: 108.41 kg BMI: 37.4 kg/m? Imaging Protocol Limitation Reason Diaphragmatic attenuation and G.I. uptake. Exam Type: Rest Stress Radiopharm: Tc-99m Tetrofosmin Tc-99m Tetrofosmin Dosage(mCi): 13.27 33.9 Atten Correction: not performed not performed Stress Agent: Regadenoson 0.4mg Supply provided from [facility] Resting Blood Press: 172/56 mmHg Image Quality The overall study imaging quality was deemed to be fair. The following technical issues were noted: Diaphragmatic attenuation and G.I. uptake. FINDINGS: Stress IR:3D Gated Stress IR:3D LVEF: 56 % ED Volume: 160 ml ES Volume: 71 ml TID: 1.18 Perfusion Findings Stress IR:3D - Summed Score=10 There is a severe perfusion defect in the basal inferior segment. There is a moderate perfusion defect in the mid inferior segment and basal inferoseptal segment. There is a mild perfusion defect in the basal anteroseptal segment, basal inferolateral segment, and apical inferior segment. All remaining scored segments show normal perfusion. Rest IR:3D - Summed Score=5 There is a moderate perfusion defect in the mid inferior segment. There is a mild perfusion defect in the basal inferior segment, apical inferior segment, and basal inferoseptal segment. All remaining scored segments show normal perfusion. Stress IR:3D Rest IR:3D Summed Score=10 Summed Score=5 LEFT VENTRICLE The left ventricle is normal in size. Left ventricular systolic function is normal. Right Ventricle The right ventricle is normal in size. Right ventricle systolic function is normal. * * * Final * * * ---- Stress ECG Report: [facility] Date of service: 03/12/2024 7:31:04 AM Ordering physician: BIB PATTERSON database management system specialist: Ericka Hurtado Retention Manager: Edelmira Wilks Interpreting physician: Cecile Woodson MD Patient name: MR. MARIE HUTSON Age: 74 years Gender: M Height: 170.18 cm BSA: 2.26 m? Weight: 108.41 kg BMI: 37.4 kg/m? Indication: Chest pressure / Chest tightness Stress ECG Conclusion: Conclusion: Normal Stress ECG Summary: The patient's resting heart rate was 46 bpm and blood pressure was 172/56 mmHg. The test was terminated due to end of protocol. No symptoms provoked during stress. The maximum heart rate was 66 bpm, which is 45% of the predicted heart rate for age. Peak blood pressure was 138/42 mmHg. The double product achieved was 9108. Previous cardiovascular interventions: CABG (2012) PCI (20 (more content not included)... Normal [facility] NM Heart Perfusion W stress and W radionuclide [place] 03-12-2024 * * *Final Report* * * DATE OF EXAM: Mar 12 2024 9:00AM [facility] 0006 - NM CARDIAC PERF STRESS/PHARM / PROCEDURE REASON: multiple diagnoses * * * * Physician Interpretation * * * * Stress Supervisor Home Economics Report: [facility] Date of service: 03/12/2024 7:31:04 AM Supervising physician: Cecile Woodson MD PATIENT: Name: MR. MARIE HUTSON Age: 74 years Gender: M The supervising physician was in the department and immediately available. * * * Final * * * ---- PATIENT: Name: MR. MARIE HUTSON Age: 74 years Gender: M CONCLUSIONS: 1. SPECT Perfusion Study: Abnormal. 2. There is mild (<10%) ischemia in the territory of the LAD. - SSS in this Region 1 (basal anteroseptum). 3. There is mild (<10%) ischemia in the territory of the RCA superimposed on small <10%) fixed perfusion defect in RCA (inferior apex-base; basal inferoseptum and possible RCA or Cx: basal inferolateral region). In this Region - Summed Difference Score of 4. 4. Left ventricle is normal in size. The left ventricle systolic function is normal. 5. Right ventricle is normal in size. The right ventricle systolic function is normal. 6. This is an intermediate risk scan. Gated Stress IR:3D LVEF % 56 Prior Study Comparison Prior nuclear cardiology exam was performed on 11/07/2009. Nuclear Med Report:1-Day Gated SPECT Myocardial Perfusion with Regadenoson Stress: Myocardial perfusion imaging was performed at rest 30 minutes following the IV injection of the radiotracer. The patient received 0.4 mg of regadenoson, via rapid IV push, immediately followed by radiotracer IV. Gated post stress tomographic imaging was performed 30 to 60 minutes later. See administered radiotracer and doses below. [facility] Date of service: 03/12/2024 7:31:04 AM Ordering Physician: BIB PATTERSON. Requesting Physician: Indication: CP - ECG uniterpretable OR unable to exercise Interpreting physician: Chuck Borden MD Previous Cardiovascular Interventions: CABG (2012) PCI (2023) : Stents x2 Height: 170.18 cm BSA: 2.26 m Weight: 108.41 kg BMI: 37.4 kg/m Imaging Protocol Limitation Reason Diaphragmatic attenuation and G.I. uptake. Exam Type: Rest Stress Radiopharm: Tc-99m Tetrofosmin Tc-99m Tetrofosmin Dosage(mCi): 13.27 33.9 Atten Correction: not performed not performed Stress Agent: Regadenoson 0.4mg Supply provided from [facility] Resting Blood Press: 172/56 mmHg Image Quality The overall study imaging quality was deemed to be fair. The following technical issues were noted: Diaphragmatic attenuation and G.I. uptake. FINDINGS: Stress IR:3D Gated Stress IR:3D LVEF: 56 % ED Volume: 160 ml ES Volume: 71 ml TID: 1.18 Perfusion Findings Stress IR:3D - Summed Score=10 There is a severe perfusion defect in the basal inferior segment. There is a moderate perfusion defect in the mid inferior segment and basal inferoseptal segment. There is a mild perfusion defect in the basal anteroseptal segment, basal inferolateral segment, and apical inferior segment. All remaining scored segments show normal perfusion. Rest IR:3D - Summed Score=5 There is a moderate perfusion defect in the mid inferior segment. There is a mild perfusion defect in the basal inferior segment, apical inferior segment, and basal inferoseptal segment. All remaining scored segments show normal perfusion. Stress IR:3D Rest IR:3D Summed Score=10 Summed Score=5 LEFT VENTRICLE The left ventricle is normal in size. Left ventricular systolic function is normal. Right Ventricle The right ventricle is normal in size. Right ventricle systolic function is normal. * * * Final * * * ---- Stress ECG Report: [facility] Date of service: 03/12/2024 7:31:04 AM Ordering physician: BIB PATTERSON database management system specialist: Ericka Hurtado Retention Manager: Edelmira Wilks Interpreting physician: Cecile Woodson MD Patient name: MR. MARIE HUTSON Age: 74 years Gender: M Height: 170.18 cm BSA: 2.26 m Weight: 108.41 kg BMI: 37.4 kg/m Indication: Chest pressure / Chest tightness Stress ECG Conclusion: Conclusion: Normal Stress ECG Summary (more content not included)... [facility] Provider, [facility] Flaca meng [place] - 03/12/2024 * * *Final Report* * * DATE OF EXAM: Mar 12 2024 9:00AM [facility] 0006 - NM CARDIAC PERF STRESS/PHARM / PROCEDURE REASON: multiple diagnoses * * * * Physician Interpretation * * * * Stress Supervisor Home Economics Report: [facility] Date of service: 03/12/2024 7:31:04 AM Supervising physician: Cecile Woodson MD PATIENT: Name: MR. MARIE HUTSON Age: 74 years Gender: M The supervising physician was in the department and immediately available. * * * Final * * * ---- PATIENT: Name: MR. MARIE HUTSON Age: 74 years Gender: M CONCLUSIONS: 1. SPECT Perfusion Study: Abnormal. 2. There is mild (<10%) ischemia in the territory of the LAD. - SSS in this Region 1 (basal anteroseptum). 3. There is mild (<10%) ischemia in the territory of the RCA superimposed on small <10%) fixed perfusion defect in RCA (inferior apex-base; basal inferoseptum and possible RCA or Cx: basal inferolateral region). In this Region - Summed Difference Score of 4. 4. Left ventricle is normal in size. The left ventricle systolic function is normal. 5. Right ventricle is normal in size. The right ventricle systolic function is normal. 6. This is an intermediate risk scan. Gated Stress IR:3D LVEF % 56 Prior Study Comparison Prior nuclear cardiology exam was performed on 11/07/2009. Nuclear Med Report:1-Day Gated SPECT Myocardial Perfusion with Regadenoson Stress: Myocardial perfusion imaging was performed at rest 30 minutes following the IV injection of the radiotracer. The patient received 0.4 mg of regadenoson, via rapid IV push, immediately followed by radiotracer IV. Gated post stress tomographic imaging was performed 30 to 60 minutes later. See administered radiotracer and doses below. [facility] Date of service: 03/12/2024 7:31:04 AM Ordering Physician: BIB PATTERSON. Requesting Physician: Indication: CP - ECG uniterpretable OR unable to exercise Interpreting physician: Chuck Borden MD Previous Cardiovascular Interventions: CABG (2012) PCI (2023) : Stents x2 Height: 170.18 cm BSA: 2.26 m Weight: 108.41 kg BMI: 37.4 kg/m Imaging Protocol Limitation Reason Diaphragmatic attenuation and G.I. uptake. Exam Type: Rest Stress Radiopharm: Tc-99m Tetrofosmin Tc-99m Tetrofosmin Dosage(mCi): 13.27 33.9 Atten Correction: not performed not performed Stress Agent: Regadenoson 0.4mg Supply provided from [facility] Resting Blood Press: 172/56 mmHg Image Quality The overall study imaging quality was deemed to be fair. The following technical issues were noted: Diaphragmatic attenuation and G.I. uptake. FINDINGS: Stress IR:3D Gated Stress IR:3D LVEF: 56 % ED Volume: 160 ml ES Volume: 71 ml TID: 1.18 Perfusion Findings Stress IR:3D - Summed Score=10 There is a severe perfusion defect in the basal inferior segment. There is a moderate perfusion defect in the mid inferior segment and basal inferoseptal segment. There is a mild perfusion defect in the basal anteroseptal segment, basal inferolateral segment, and apical inferior segment. All remaining scored segments show normal perfusion. Rest IR:3D - Summed Score=5 There is a moderate perfusion defect in the mid inferior segment. There is a mild perfusion defect in the basal inferior segment, apical inferior segment, and basal inferoseptal segment. All remaining scored segments show normal perfusion. Stress IR:3D Rest IR:3D Summed Score=10 Summed Score=5 LEFT VENTRICLE The left ventricle is normal in size. Left ventricular systolic function is normal. Right Ventricle The right ventricle is normal in size. Right ventricle systolic function is normal. * * * Final * * * ---- Stress ECG Report: [facility] Date of service: 03/12/2024 7:31:04 AM Ordering physician: BIB PATTERSON database management system specialist: Ericka Hurtado Retention Manager: Edelmira Wilks Interpreting physician: Cecile Woodson MD Patient name: MR. MARIE HUTSON Age: 74 years Gender: M Height: 170.18 cm BSA: 2.26 m Weight: 108.41 kg BMI: 37.4 kg/m Indication: Chest pressure / Chest tightness Stress ECG Conclusion: Conclusion: Normal Stress ECG Summary: The patient's resting heart rate was 46 bpm and blood pressure was 172/56 mmHg. The test was terminated due to end of protocol. No symptoms provoked during stress. The maximum heart rate was 66 bpm, which is 45% of the predicted he (more content not included)... [facility] Radiology Study observation (narrative) [facility] Heart Perfusion W stress and W radionuclide IVOrdered By: [facility] Provider on 03-12-2024 [facility] Remy 03-11-2024 [facility] Telephone ([facility]) MARIE HUTSON ([id number]) 1950 M Date Time Provider Department 03/11/24 EDELMIRA WILKS During your visit today, we recorded the following information about you: Edelmira Wilks RN 03/11/2024 1:18 PM Signed Left message regarding reminder and instructions for stress test tomorrow. This included where to check in, length of test and no caffeine for 12 hours prior to test, Allergies As of Date: 03/11/2024 (No Known Allergies) Date Reviewed: 03/11/2024 Reviewed by: Palak Rosales LPN - Fully Assessed Prescriptions as of 03/11/2024 - metFORMIN (GLUCOPHAGE) 500 mg tablet Take 2 tablets by mouth two times a day with meals. - clopidogrel (PLAVIX) 75 mg tablet Take 1 tablet by mouth once daily. - metoprolol tartrate, short acting, (LOPRESSOR) 25 mg tablet Take 2 tablets by mouth every 12 hours. - lisinopril (ZESTRIL) 40 mg tablet Take 1 tablet by mouth two times a day. - amLODIPine (NORVASC) 10 mg tablet Take 1 tablet by mouth once daily. - cloNIDine HCl (CATAPRES) 0.2 mg tablet Take 1 tablet by mouth two times a day. - atorvastatin (LIPITOR) 80 mg tablet Take 1 tablet by mouth daily at bedtime. For cholesterol. - aspirin, enteric coated (ASPIRIN, ENTERIC COATED) 81 mg EC tablet Take 1 tablet by mouth once daily. - gabapentin (NEURONTIN) 300 mg capsule Take 1 capsule by mouth daily at bedtime for 180 days. - Miscellaneous Medical Supply (COMPRESSION STOCKINGS) [facility] COMPRESSION STOCKINGS KNEE HI 20-30 WT M79.89 - therapeutic multivitamin tablet Take 1 tablet by mouth daily with breakfast. - blood sugar diagnostic (ONE TOUCH ULTRA TEST) test strip Use as instructed - blood sugar diagnostic (ONE TOUCH ULTRA TEST) test strip TEST BLOOD SUGARS ONCE DAILY - lancets(ONE TOUCH ULTRASOFT LANCETS) Test blood sugar once daily. Problem List As Of Date 03/11/2024 Noted Resolved Essential hypertension [I10] 12/29/2007 Hyperlipidemia with target LDL less than 70 [E7*12/29/2007 Impotence of organic origin [N52.9] 12/29/2007 02/15/2016 BPH without obstruction/lower urinary tract sym*12/29/2007 02/21/2018 Well controlled type 2 diabetes mellitus with n*12/29/2007 Obesity, unspecified [E66.9] 12/29/2007 02/15/2016 Dermatophytosis of nail [B35.1] 12/29/2007 07/23/2014 Nonspecific abnormal results of liver function *04/29/2008 12/13/2011 Benign Neoplasm of Colon [D12.6] 07/29/2008 PAD (peripheral artery disease) [I73.9] 08/05/2009 Irritated//Inflamed Seborrheic Keratosis [L82.0]11/05/2010 12/15/2012 Actinic Keratoses (Premalignant AK's) [L57.0] 11/05/2010 01/01/2014 Actinic Damage///Sun-damaged skin [L57.8] 11/05/2010 12/15/2012 Personal history of other malignant neoplasm of*11/05/2010 12/15/2012 Melanocytic nevus of trunk [D22.5] 11/05/2010 02/15/2016 Solar Lentigines [L81.4] 11/05/2010 12/15/2012 Seborrheic Keratoses [L82.1] 11/05/2010 12/15/2012 Skin tag [L91.8] 11/05/2010 12/15/2012 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] 11/05/2010 12/15/2012 Surgical Scars [L90.5] 11/05/2010 12/15/2012 SUMMARY [V999.95] 10/17/2013 07/23/2014 Non-ST elevation myocardial infarction (NSTEMI)*10/17/2013 07/23/2014 Screening for ischemic heart disease [Z13.6] 10/19/2013 02/07/2024 Hypotension [I95.9] 10/20/2013 10/23/2013 Mechanically assisted ventilation [Z99.11] 10/20/2013 10/22/2013 Fluid overload [E87.70] 10/21/2013 10/23/2013 Atelectasis/pleural effusion/volume overload [J*10/21/2013 07/23/2014 Acute pain [R52] 10/22/2013 01/01/2014 Nodule of right lung [R91.1] 10/22/2013 07/23/2014 Elevated LFTs [R79.89] 10/23/2013 01/01/2014 DISPOSITION AND FOLLOW-UP [V999.01] 10/23/2013 01/01/2014 Postoperative anemia [D64.9] 10/25/2013 07/23/2014 DVT of leg (deep venous thrombosis) (HCC) [I82.*11/16/2013 07/23/2014 Post-operative state [Z98.890] 11/16/2013 01/01/2014 Actinic skin damage [L57.8] 12/18/2013 Solar Lentigines [L81.4] 12/18/2013 02/15/2016 Other seborrheic keratosis [L82.1] 12/18/2013 01/21/2015 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] 12/18/2013 02/15/2016 Hx of CABG [Z95.1] 05/17/2014 Diabetic peripheral neuropathy (HCC) [E11.42] 05/17/2014 Primary osteoarthritis of left knee [M17.12] 02/21/2018 Obesity, Class II, BMI 35-39.9 [E66.9] 08/22/2018 08/06/2019 Obesity, Class I, BMI 30-34.9 [E66.9] 08/06/2019 02/07/2024 Sleep apnea [G47.30] 09/15/2021 02/07/2024 Mixed sleep apnea [G47.39] 11/09/2021 Branch retinal artery occlusion, 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 Chloride [Moles/Vol] 101 mmol/L 98-107 [facility] Glucose [Mass/Vol] 160 mg/dL 74-106 [facility] Comment on above: Fasting Glucose resu lt greater than or equal to 126 mg/dL suggests DIABETES MELLITUS per A.D.A. criteria. Hemoglobin (Bld) [Mass/Vol] 9.6 g/dL 13.0-16.5 [facility] Potassium [Moles/Vol] 3.5 mmol/L 3.5-5.1 [facility] Protein [Mass/Vol] 6.0 g/dL 6.4-8.2 [facility] Sodium [Moles/Vol] 135 mmol/L 136-145 [facility] WBC (Bld) [#/Vol] 14.5 10*3/uL 4.4-11.0 [facility] Determination of erythrocyte mean corpuscular volume (MCV)Ordered By: Rubio Simeon on 01-30-2024 MCV (RBC) [Entitic vol] 93.2 fL 80-[address] [facility] Erythrocyte distribution wid th ratioOrdered By: [facility] on [facility]-30-2024 Erythrocyte distribution width (RBC) [Ratio] 11.9 % 11.6-14.6 [facility] Erythrocyte distribution wid th standard deviationOrdered By: [facility] on 01-30-2024 Erythrocyte distribution width (RBC) [Entitic vol] 39.7 fL 35.1-43.9 [facility] Hematocrit Auto (Bld) [Volum e fraction]Ordered By: Rubiocarla Simeon on 01-30-2024 Hematocrit (Bld) [Volume fraction] 27.5 % 40-54 [facility] Laboratory - Chemistry and C hemistry - challengeOrdered By: Rubio Blanco on 01-30-2024 Albumin/Globulin [Mass ratio] 0.8 {ratio} 0.9-2.4 [facility] ALP [Catalytic activity/Vol] 86 U/L 45-117 [facility] ALT [Catalytic activity/Vol] 22 U/L 16-61 [facility] [facility] CO2 [Moles/Vol] 28.0 mmol/L 21.0-32.0 [facility] Globulin (S) [Mass/Vol] 3.4 g/dL 2.2-4.[address] [facility] Urea nitrogen/Creatinine [Mass ratio] 21.5 mg/mg 10-20 [facility] Laboratory - Hematology and Cell countsOrdered By: Rubiocarla Simeon on 01-30-2024 MCH (RBC) [Entitic mass] 32.5 pg 27.0-32.0 [facility] MCHC (RBC) [Mass/Vol] 34.9 g/dL 32-36 [facility] Platelet mean volume (Bld) [Entitic vol] 9.1 fL 6.2-12.0 [facility] Platelets (Bld) [#/Vol] 317 10*3/uL 150-450 [facility] No Panel InformationOrdered By: Rubio Simeon on 01-30-2024 Estimated Creatinine Clearance Calc 99.95 ml/min [facility] Estimated GFR (MDRD) Amer 133 mL/min >60 [facility] Comment on above: GFR Calc Estimated GFR (MDRD) Non-Af Amer 110 mL/min >60 [facility] Comment on above: Non- GFR Calc RBC Auto (Bld) [#/Vol]Ordere d By: Rubio Simeon on 01-30-2024 RBC (Bld) [#/Vol] 2.95 10*6/uL 4.6-6.2 [facility] Serum or plasma calcium juany urement (mass/volume)Ordered By: Rubio Simeon on 01-30-2024 Calcium [Mass/Vol] 8.6 mg/dL 8.5-10.1 [facility] Serum or plasma creatinine m easurement (mass/volume)Ordered By: Rubio Simeon on 01-30-2024 Creatinine [Mass/Vol] 0.74 mg/dL 0.70-1.30 [facility] Comment on above: The validity of the calculated GFR & GFRAA in patients over 70 years has not been determined. Clinical correlation is essential. Serum or plasma urea nitroge n measurement (mass/volume)Ordered By: Rubio Simeon on 01-30-2024 Urea nitrogen [Mass/Vol] 16 mg/dL 7-18 [facility] Thin prep Papanicolaou smear with manual screeningOrdered By: Debby Machuca on 01-30-2024 Thin prep Papanicolaou smear with manual screening 224 mg/dL 74-106 [facility] Comment on above: MANAGEMENT OF PATIEN T CARE PER NURSING PROTOCOL Thin prep Papanicolaou smear with manual screeningOrdered By: Rubio Simeon on 01-30-2024 Thin prep Papanicolaou smear with manual screening 2.6 g/dL 3.2-5.0 [facility] Thin prep Papanicolaou smear with manual screening 46 U/L 15-37 [facility] Thin prep Papanicolaou smear with manual screening 6 5-15 [facility] Absolute lymphocyte countOrd ered By: Geeta Mendoza on 01-29-2024 Lymphocytes Auto (Unsp spec) [#/Vol] 0.73 10*3/uL 0.83-4.51 [facility] Activated partial thrombopla stin time (aPTT) in platelet poor plasma by coagulation aOrdered By: Rubio Simeon on 01-29-2024 aPTT Coag (PPP) [Time] 95.3 s 24.1-36.2 [facility] Comment on above: CRITICAL VALUE VERIF IED. CALLED TO RENESTINA HOLLOWAY (ICU)01/29/24 07 Gomez Sewell.RESULTS READ BACK BY SAME. Automated lymphocyte count a s percentage of total leukocytesOrdered By: Geeta Mendoza on 01-29-2024 Lymphocytes/100 WBC Auto (Unsp spec) 4.7 % 19-41 [facility] Basophil percentageOrdered B y: Geeta Mendoza on 01-29-2024 Basophil percentage 3.6 mg/dL 2.5-4.9 [facility] Basophils/100 WBC (Bld) 0.1 % 0-[address] [facility] Cholesterol [Mass/Vol] 79 mg/dL <200 [facility] Comment on above: <200 mg/dL Desirable 200-240 mg/dL Borderline >240 mg/dL High Risk Eosinophils/100 WBC (Bld) 0.0 % 0-5 [facility] Monocytes/100 WBC (Bld) 6.0 % 0-10 [facility] Neutrophils (Bld) [#/Vol] 13.7 10*3/uL 2.0-7.7 [facility] Neutrophils/100 WBC (Bld) 88.5 % 47-70 [facility] Triglyceride [Mass/Vol] 54 mg/dL <199 [facility] Comment on above: The drugs N-Acetylcy steine and Metamizole may falsely depress this assay.Serum Triglycerides Reference Interval Normal <150 mg/dL Borderline high 150 - 199 mg/dL High 200 - 499 mg/dL Very High > or = 500 mg/dL Immature granulocytes/100 WB C Auto (Bld)Ordered By: Geeta Mendoza on 01-29-2024 Immature granulocytes/100 WBC (Bld) 0.700 % 0.0-0.9 [facility] Comment on above: IG% - Immature Granu locytes (promyelocytes, myelocytes and metamyelocytes) > 1% indicates that a LEFT SHIFT is Present. Iron measurement (mass/mass) Ordered By: Geeta Mendoza on 01-29-2024 Iron (Unsp spec) [Mass/Mass] 87 ug/dL 65-175 [facility] Laboratory - Chemistry and C hemistry - challengeOrdered By: Geeta Mendoza on 01-29-2024 Cholesterol in HDL [Mass/Vol] 49 mg/dL >40 [facility] Comment on above: The drugs N-Acetylcy steine and Metamizole may falsely depress this assay. Reference Range HDL <40 mg/dL Low HDL Cholesterol HDL >or= 60 mg/dL High HDL Cholesterol Cholesterol in LDL [Mass/Vol] 19 mg/dL 0-130 [facility] Cobalamin (Vitamin B12) [Mass/Vol] 424 pg/mL 211-911 [facility] Ferritin [Mass/Vol] 234 ng/mL 26-388 [facility] Magnesium [Mass/Vol] 1.9 mg/dL 1.6-2.6 [facility] Laboratory - Hematology and Cell countsOrdered By: Geeta Mendoza on 01-29-2024 Nucleated RBC/100 WBC (Bld) [Ratio] 0 % 0-5 [facility] No Panel InformationOrdered By: Debby Machuca on 01-29-2024 Activated Clotting Time 255 sec 74-[address] [facility] No Panel InformationOrdered By: Geeta Mendoza on 01-29-2024 Folate 17.30 ng/mL 3.1-55.4 [facility] Total Iron Binding Capacity 195 ug/dL 250-450 [facility] VLDL Cholesterol 11 mg/dL 5-40 [facility] Troponin I High Sensitivity 70520 pg/mL 3.0-78.0 [facility] Comment on above: Critical Result(s) C alled at: 00:42:11 01/29/2024 by: Christiana Hale RN in ICU. Results read back by same. Please Note: New Test Units and Gender Specific Reference Ranges. For more information see Policy Stat Procedure Bradley High Sensitivity Troponin (TNIH) and attachments. Serum or plasma iron saturat ion measurement (mass fraction)Ordered By: Geeta Kelly on 01-29-2024 Iron saturation [Mass fraction] 44.6 % 15.0-55.0 [facility] Serum or plasma thyroid stim ulating hormone (TSH) measurement (units/volume)Ordered By: Geeta Kelly on 01-29-2024 TSH Qn 0.31 uIU/mL 0.358-3.74 [facility] Thin prep Papanicolaou smear with manual screeningOrdered By: Geeta Kelly on 01-29-2024 Thin prep Papanicolaou smear with manual screening 1.27 ng/dL 0.76-1.46 [facility] Whole blood hemoglobin A1c/t otal hemoglobin ratio (mass fraction)Ordered By: Geeta Kelly on 01-29-2024 HbA1c (Bld) [Mass fraction] 6.3 % 3.8-5.6 [facility] Comment on above: Normal < 5.7 % Predi abetic 5.7 - 6.4 % Diabetic >or= 6.5 % Please note range changes. XR Wrist - bilateral PA and Lateral and Obliqueon 01-29-2024 IMPRESSION: 1. No acute radiographic abnormality of the bilateral wrists Strapping Machine Tender: [facility] Transcribe Date/Time: Jan 29 2024 5:05P Dictated by : TOOTIE BERNARD MD This examination was interpreted and the report reviewed and electronically signed by: TOOTIE BERNARD MD on Jan 29 2024 5:06PM [facility] DIVISION OF RADIOLOGY * * *Final Report* * * DATE OF EXAM: 2024 3:44PM WOX [id number] - XR WRIST 3V PA/LAT/OBL NOHEMY / PROCEDURE REASON: multiple diagnoses * * * * Physician Interpretation * * * * WRIST RADIOGRAPHS - BILATERAL HISTORY: Pain in both wrists TECHNOLOGIST PROVIDED HISTORY (if applicable): Diffuse bilateral wrist pain x 6 weeks without injury TECHNIQUE: XR WRIST 3V PA/LAT/OBL NOHEMY COMPARISON: None available RESULT: Bone mineralization appears normal. Right wrist: Carpal bones are normally aligned. There is no acute osseous, articular, or soft tissue abnormality. There is no soft tissue swelling. Left wrist: Carpal bones are normally aligned. There is no acute osseous, articular, or soft tissue abnormality. There is no soft tissue swelling. Mild bilateral positive ulnar variance and distal forearm atherosclerotic calcifications DIVISION OF RADIOLOGY Provider, Malini [facility] - 01/29/2024 * * *Final Report* * * DATE OF EXAM: 2024 3:44PM WOX [id number] - XR WRIST 3V PA/LAT/OBL NOHEMY / PROCEDURE REASON: multiple diagnoses * * * * Physician Interpretation * * * * WRIST RADIOGRAPHS - BILATERAL HISTORY: Pain in both wrists TECHNOLOGIST PROVIDED HISTORY (if applicable): Diffuse bilateral wrist pain x 6 weeks without injury TECHNIQUE: XR WRIST 3V PA/LAT/OBL NOHEMY COMPARISON: None available RESULT: Bone mineralization appears normal. Right wrist: Carpal bones are normally aligned. There is no acute osseous, articular, or soft tissue abnormality. There is no soft tissue swelling. Left wrist: Carpal bones are normally aligned. There is no acute osseous, articular, or soft tissue abnormality. There is no soft tissue swelling. Mild bilateral positive ulnar variance and distal forearm atherosclerotic calcifications IMPRESSION IMPRESSION: 1. No acute radiographic abnormality of the bilateral wrists Strapping Machine Tender: [facility] Transcribe Date/Time: Jan 29 2024 5:05P Dictated by : TOOTIE BERNARD MD This examination was interpreted and the report reviewed and electronically signed by: TOOTIE BERNARD MD on Jan 29 2024 5:06PM EST [facility] XR Wrist - bilateral PA and Lateral and ObliqueOrdered By: [facility] Provider on 01-29-2024 [facility] Absolute lymphocyte countOrd ered By: Kvng Jacobson on 01-28-2024 Lymphocytes Auto (Unsp spec) [#/Vol] 0.77 10*3/uL 0.83-4.51 [facility] Activated partial thrombopla stin time (aPTT) in platelet poor plasma by coagulation aOrdered By: Kvng Jacobson on 01-28-2024 aPTT Coag (PPP) [Time] 43.4 s 24.1-36.2 [facility] Automated lymphocyte count a s percentage of total leukocytesOrdered By: Kvng Jacobson on 01-28-2024 Lymphocytes/100 WBC Auto (Unsp spec) 4.6 % 19-41 [facility] Basophil percentageOrdered B y: Rubio Blanco on 01-28-2024 Basophil percentage 0 SEEN /hpf 0-5 [facility] Basophil percentageOrdered B y: Geeta White on 01-28-2024 Basophil percentage 2.2 mg/dL 2.5-4.9 [facility] Bilirubin [Mass/Vol] 0.90 mg/dL 0.20-1.00 [facility] Comment on above: For patients on eltr ombopag therapy, use of Dimension Bradley TBIL is not recommended. Protein [Mass/Vol] 7.1 g/dL 6.4-8.2 [facility] Basophil percentageOrdered B y: Kvng Jacobson on 01-28-2024 Basophils/100 WBC (Bld) 0.1 % 0-[address] [facility] Chloride [Moles/Vol] 96 mmol/L 98-107 [facility] Eosinophils/100 WBC (Bld) 0.0 % 0-5 [facility] Glucose [Mass/Vol] 262 mg/dL 74-106 [facility] Comment on above: Glucose result great er than or equal to 200 mg/dLsuggests DIABETES MELLITUS per A.D.A. criteria. Hemoglobin (Bld) [Mass/Vol] 10.7 g/dL 13.0-16.5 [facility] Monocytes/100 WBC (Bld) 2.2 % 0-[address] [facility] Neutrophils (Bld) [#/Vol] 15.4 10*3/uL 2.0-7.7 [facility] Neutrophils/100 WBC (Bld) 91.9 % 47-70 [facility] Potassium [Moles/Vol] 4.3 mmol/L 3.5-5.1 [facility] Sodium [Moles/Vol] 129 mmol/L 136-145 [facility] WBC (Bld) [#/Vol] 16.8 10*3/uL 4.4-11.0 [facility] Bilirubin Test strip Ql (U)O rdered By: Rubio Simeon on 01-28-2024 Bilirubin Ql (U) Negative Negative [facility] Determination of erythrocyte mean corpuscular volume (MCV)Ordered By: Kvng Jacobson on 01-28-2024 MCV (RBC) [Entitic vol] 93.9 fL 80-[address] [facility] Direct bilirubinOrdered By: Geeta Mendoza on 01-28-2024 Bilirubin.direct [Mass/Vol] 0.30 mg/dL 0.00-0.30 [facility] Erythrocyte distribution wid th ratioOrdered By: Kvng Jacobson on 01-28-2024 Erythrocyte distribution width (RBC) [Ratio] 11.7 % 11.6-14.6 [facility] Erythrocyte distribution wid th standard deviationOrdered By: Kvng Jacobson on 01-28-2024 Erythrocyte distribution width (RBC) [Entitic vol] 39.6 fL 35.1-43.9 [facility] Hematocrit Auto (Bld) [Volum e fraction]Ordered By: Kvng Jacobson on 01-28-2024 Hematocrit (Bld) [Volume fraction] 30.7 % 40-54 [facility] Immature granulocytes/100 WB C Auto (Bld)Ordered By: Kvng Jacobson on 01-28-2024 Immature granulocytes/100 WBC (Bld) 1.200 % 0.0-0.9 [facility] Comment on above: IG% - Immature Granu locytes (promyelocytes, myelocytes and metamyelocytes) > 1% indicates that a LEFT SHIFT is Present. Ketones Test strip Ql (U)Ord ered By: Rubio Simeon on 01-28-2024 Ketones Ql (U) Negative Negative [facility] Laboratory - Chemistry and C hemistry - challengeOrdered By: Geeta Mendoza on 01-28-2024 Sodium (U) [Moles/Vol] 50 mmol/L Not Establ. [facility] ALP [Catalytic activity/Vol] 104 U/L 45-117 [facility] ALT [Catalytic activity/Vol] 18 U/L 16-61 [facility] Globulin (S) [Mass/Vol] 3.9 g/dL 2.2-4.[address] [facility] Magnesium [Mass/Vol] 1.6 mg/dL 1.6-2.6 [facility] Laboratory - Chemistry and C hemistry - challengeOrdered By: Kvng Jacobson on 01-28-2024 CO2 [Moles/Vol] 23.0 mmol/L 21.0-32.0 [facility] Urea nitrogen/Creatinine [Mass ratio] 19.8 mg/mg 10-20 [facility] Laboratory - CoagulationOrde red By: Kvng Jacobson on 01-28-2024 INR Coag (Bld) [Relative time] 1.1 {INR} [facility] PT Coag (PPP) [Time] 13.8 s 11.7-14.9 [facility] Laboratory - Hematology and Cell countsOrdered By: Kvng Jacobson on 01-28-2024 MCH (RBC) [Entitic mass] 32.7 pg 27.0-32.0 [facility] MCHC (RBC) [Mass/Vol] 34.9 g/dL 32-36 [facility] Nucleated RBC/100 WBC (Bld) [Ratio] 0 % 0-5 [facility] Platelet mean volume (Bld) [Entitic vol] 9.5 fL 6.2-12.0 [facility] Platelets (Bld) [#/Vol] 339 10*3/uL 150-450 [facility] Mucus LM Ql (Urine sed)Order ed By: Rubio Simeon on 01-28-2024 Mucus Ql (Urine sed) 0 SEEN /hpf [facility] Nitrite Test strip Ql (U)Ord ered By: Rubio Simeon on 01-28-2024 Nitrite Ql (U) Negative Negative [facility] No Panel InformationOrdered By: Rubio Simeon on 01-28-2024 Urine RBC 0 SEEN /hpf 0-5 [facility] D-Dimer Quantitative (PE/DVT) 1.70 FEU/ug/m 0.27-0.49 [facility] Comment on above: D-Dimer ELEVATED (>0 .49): Additional studies and clinicalassessments are indicated to conclude diagnosis of:Deep Vein Thrombosis (DVT) or Pulmonary Embolism (PE)CRITICAL VALUE VERIFIED. CALLED TO [id number] Aisha Pedroza.RESULTS READ BACK BY SAME . No Panel InformationOrdered By: Kvng Jacobson on 01-28-2024 Troponin I High Sensitivity 37219 pg/mL 3.0-78.0 [facility] Comment on above: Critical Result(s) C alled at: 21:09:53 01/28/2024 by: BRE GERBER TO NGOC. Results read back by same. Please Note: New Test Units and Gender Specific Reference Ranges. For more information see Policy Stat Procedure Bradley High Sensitivity Troponin (TNIH) and attachments. Estimated Creatinine Clearance Calc 71.85 ml/min [facility] Estimated GFR (MDRD) Amer 84 mL/min >60 [facility] Comment on above: GFR Calc Estimated GFR (MDRD) Non-Af Amer 69 mL/min >60 [facility] Comment on above: Non- GFR Calc Protein Test strip Ql (U)Ord ered By: Rubio Simeon on 01-28-2024 Protein Ql (U) Negative Negative [facility] RBC Auto (Bld) [#/Vol]Ordere d By: Kvng Jacobson on 01-28-2024 RBC (Bld) [#/Vol] 3.27 10*6/uL 4.6-6.2 [facility] Serum or plasma calcium juany urement (mass/volume)Ordered By: Kvng Jacobson on 01-28-2024 Calcium [Mass/Vol] 9.6 mg/dL 8.5-10.1 [facility] Serum or plasma creatinine m easurement (mass/volume)Ordered By: Kvng Jacobson on 01-28-2024 Creatinine [Mass/Vol] 1.11 mg/dL 0.70-1.30 [facility] Comment on above: The validity of the calculated GFR & GFRAA in patients over 70 years has not been determined. Clinical correlation is essential. Serum or plasma urea nitroge n measurement (mass/volume)Ordered By: Kvng Jacobson on 01-28-2024 Urea nitrogen [Mass/Vol] 22 mg/dL 7-18 [facility] Serum procalcitonin measurem entOrdered By: Geeta Mendoza on 01-28-2024 Procalcitonin [Mass/Vol] 0.04 ng/mL 0.00-0.09 [facility] Comment on above: A procalcitonin (PCT ) level above 2.0 ng/mL on the first day of ICU admission is associated with a high risk for progression to severe sepsis and/or septic shock. A PCT level below 0.5 ng/mL on the first day of ICU admission is associated with a low risk for progression to severe and/or septic shock. Note: Concentrations <0.5 ng/mL do not exclude an infection on account of localized infections (without systemic signs) which can be associated with such low concentrations, or a systemic infection in its initial stages (<6 hours). Furthermore, increased procalcitonin can occur without infection. PCT concentrations between 0.5 and 2.0 ng/mL should be interpreted taking into account the patient's history. It is recommended to retest PCT within 6-24 hours if any concentrations <2 ng/mL are obtained. Squamous epithelial cells de tection in urine sediment by light microscopyOrdered By: Rubio Simeon on 01-28-2024 Epithelial cells.squamous LM Ql (Urine sed) 0 SEEN /hpf 0-5 [facility] Thin prep Papanicolaou smear with manual screeningOrdered By: Geeta Mendoza on 01-28-2024 Thin prep Papanicolaou smear with manual screening 3.2 g/dL 3.2-5.0 [facility] Thin prep Papanicolaou smear with manual screening 14 U/L 15-37 [facility] Thin prep Papanicolaou smear with manual screeningOrdered By: Kvng Jacobson on 01-28-2024 Thin prep Papanicolaou smear with manual screening 10 5-15 [facility] Urine blood detectionOrdered By: Rubio Simeon on 01-28-2024 RBC Ql (U) Negative Negative [facility] Urine clarityOrdered By: Raven Simeon on 01-28-2024 Clarity (U) Clear Clear [facility] Urine color determinationOrd ered By: Rubio Simeon on 01-28-2024 Color (U) Yellow Yellow [facility] Urine creatinine measurement (mass/volume)Ordered By: Geeta Mendoza on 01-28-2024 Creatinine (U) [Mass/Vol] 20.80 mg/dL NO RANGE EST. [facility] Urine glucose detectionOrder ed By: Rubio Simeon on 01-28-2024 Glucose Ql (U) 50 mg/dl Normal [facility] Urine leukocyte esterase det ection by dipstickOrdered By: Rubio Simeon on 01-28-2024 Leukocyte esterase Test strip Ql (U) Negative Negative [facility] Urine osmolality measurement Ordered By: Geeta Mendoza on 01-28-2024 Osmolality (U) [Osmolality] 286 mOsm/KG >50 [facility] Comment on above: Normal Urine Referen ce Ranges Random: 50 - 1200 mOsm/kg H20 depending on fluid intake Random: >850 mOsm/kg after 12 hour fluid restriction 24 hour: ~300 - 900 mOsm/kg H2O Urine pHOrdered By: Rubio head on 01-28-2024 pH (U) 6.0 [pH] 5.0 - 8.0 [facility] Urine sediment bacteria coun t by microscopy (number/high power field)Ordered By: Rubio Simeon on 01-28-2024 Bacteria LM.HPF (Urine sed) [#/Area] 0 /[HPF] None Seen [facility] Urine specific gravity measu rementOrdered By: Rubio Simeon on 01-28-2024 Specific gravity (U) [Rel density] 1.010 1.002-1.030 [facility] Urine urobilinogen measureme ntOrdered By: Rubio Siemon on 01-28-2024 Urobilinogen Ql (U) Normal mg/dl Normal [facility] XR Wrist - bilateral PA and Lateral and Obliqueon 2024 Radiology Study observation (narrative) [facility] CTA ABD/PEL LOWER EXTREM W I VCONon 02-14-2023 [facility] CBC panel Auto (Bld)on 02-06 Erythrocyte distribution width (RBC) [Ratio] 11.3 % Low 11.5 - 15.0 % [facility] Hematocrit (Bld) [Volume fraction] 36.9 % Low 39.0 - 51.0 % [facility] Hemoglobin (Bld) [Mass/Vol] 13.2 g/dL 13.0 - 17.0 g/dL [facility] MCH (RBC) [Entitic mass] 34.0 pg 26.0 - 34.0 pg [facility] MCHC (RBC) [Mass/Vol] 35.8 g/dL 30.5 - 36.0 g/dL [facility] MCV (RBC) [Entitic vol] 95.1 fL 80.0 - 100.0 fL [facility] Nucleated RBC (Bld) [#/Vol] <0.01 k/uL [facility] Platelet mean volume (Bld) [Entitic vol] 9.9 fL 9.0 - 12.7 fL [facility] Platelets (Bld) [#/Vol] 208 10*3/uL 150 - 400 k/uL [facility] RBC (Bld) [#/Vol] 3.88 10*6/uL Low 4.20 - 6.0 0 m/uL [facility] WBC (Bld) [#/Vol] 4.16 10*3/uL 3.70 - 11. 00 k/uL [facility] Comprehensive metabolic 2000 panelon 02-06-2023 Albumin [Mass/Vol] 4.4 g/dL 3.9 - 4.9 g/dL [facility] ALP [Catalytic activity/Vol] 73 U/L 38 - 113 U/L [facility] ALT [Catalytic activity/Vol] 21 U/L 10 - 54 U/L [facility] Anion gap [Moles/Vol] 10 mmol/L 9 - 18 mmol/L [facility] AST [Catalytic activity/Vol] 25 U/L 14 - 40 U/L [facility] Bilirubin [Mass/Vol] 1.0 mg/dL 0.2 - 1 .3 mg/dL [facility] Calcium [Mass/Vol] 9.8 mg/dL 8.5 - 10. 2 mg/dL [facility] Chloride [Moles/Vol] 100 mmol/L 97 - 10 5 mmol/L [facility] CO2 [Moles/Vol] 23 mmol/L 22 - 30 mmol/L [facility] Creatinine [Mass/Vol] 0.64 mg/dL Low 0.73 - 1.22 mg/dL [facility] Estimated Glomerular Filtration Rate 101 mL/min/1.73m >=60 mL/min/1.73m [facility] Glucose [Mass/Vol] 174 mg/dL High 74 - 99 mg/dL [facility] Potassium [Moles/Vol] 4.5 mmol/L 3.7 - 5.1 mmol/L [facility] Protein [Mass/Vol] 7.0 g/dL 6.3 - 8.0 g/dL [facility] Sodium [Moles/Vol] 133 mmol/L Low 136 - 144 mmol/L [facility] Urea nitrogen [Mass/Vol] 11 mg/dL 9 - 24 mg/dL [facility] HbA1c (Bld)on 02-06-2023 Average glucose Estimated from glycated hemoglobin (Bld) [Mass/Vol] 169 mg/dL [facility] HbA1c (Bld) [Mass fraction] 7.5 % High 4.3 - 5.6 % [facility] Lipid 1996 panelon Cholesterol [Mass/Vol] 124 mg/dL <200 mg/dL [facility] Cholesterol in HDL [Mass/Vol] 69 mg/dL >39 mg/dL [facility] Cholesterol in LDL [Mass/Vol] 45 mg/dL <100 mg/dL [facility] Cholesterol in LDL/Cholesterol in HDL [Mass ratio] 0.65 {ratio} <2.54 [facility] Cholesterol in VLDL [Mass/Vol] 10 mg/dL <30 mg/dL [facility] Cholesterol non HDL [Mass/Vol] 55 mg/dL <130 mg/dL [facility] Cholesterol.total/Verna sterol in HDL [Mass ratio] 1.80 {ratio} <5.10 [facility] Fasting Time 14 hrs [facility] Triglyceride [Mass/Vol] 52 mg/dL <150 mg/dL [facility] CREATININE BLDon 01-15-2023 Creatinine [Mass/Vol] 0.81 mg/dL 0.73 - 1.22 mg/dL [facility] Estimated Glomerular Filtration Rate 95 mL/min/1.73m >=60 mL/min/1.73m [facility] ECG COMPLETEon 09-05-2022 Atrial Rate 60 BPM [facility] Calculated P [place] 38 degrees [facility] Calculated R [place] 3 degrees [facility] Calculated T [place] 39 degrees [facility] P-R Interval 204 ms [facility] QRS Duration 98 ms [facility] QT Interval 440 ms [facility] QTC Calculation (Bazett) 440 ms [facility] Ventricular Rate 60 BPM [facility] Absolute lymphocyte counton 05-30-2022 Lymphocytes Auto (Unsp spec) [#/Vol] 1.04 10*3/uL 0.83-4.51 [facility] Work Phone: Basophil percentageon 2021 Basophils/100 WBC (Bld) 0.5 % 0-[address] [facility] Work Phone: Bilirubin [Mass/Vol] 1.40 mg/dL 0.20-1.00 [facility] Work Phone: Comment on above: For patients on eltr ombopag therapy, use of Dimension Bradley TBIL is not recommended. Chloride [Moles/Vol] 103 mmol/L 98-107 [facility] Work Phone: Cholesterol [Mass/Vol] 104 mg/dL <200 [facility] Work Phone: Comment on above: <200 mg/dL Desirable 200-240 mg/dL Borderline >240 mg/dL High Risk Eosinophils/100 WBC (Bld) 0.7 % 0-5 [facility] Work Phone: Glucose [Mass/Vol] 109 mg/dL 74-106 [facility] Work Phone: Comment on above: Fasting Glucose resu lt from 100 to 125 mg/dL suggests IMPAIRED HOMEOSTASIS per A.D.A. criteria. Neutrophils (Bld) [#/Vol] 3.9 10*3/uL 2.0-7.7 [facility] Work Phone: Neutrophils/100 WBC (Bld) 69.3 % 47-70 [facility] Work Phone: Potassium [Moles/Vol] 3.6 mmol/L 3.5-5.1 [facility] Work Phone: Protein [Mass/Vol] 6.0 g/dL 6.4-8.2 [facility] Work Phone: Sodium [Moles/Vol] 134 mmol/L 136-145 [facility] Work Phone: Triglyceride [Mass/Vol] 93 mg/dL <[address] [facility] Work Phone: Comment on above: The drugs N-Acetylcy steine and Metamizole may falsely depress this assay.Serum Triglycerides Reference Interval Normal <150 mg/dL Borderline high 150 - 199 mg/dL High 200 - 499 mg/dL Very High > or = 500 mg/dL WBC (Bld) [#/Vol] 5.6 10*3/uL 4.4-11.0 [facility] Work Phone: Blood erythrocytes count (nu mber/volume)on 05-30-2022 RBC (Bld) [#/Vol] 3.59 10*6/uL 4.6-6.2 [facility] Work Phone: Blood hemoglobin measurement (mass/volume)on 05-30-2022 Hemoglobin (Bld) [Mass/Vol] 12.0 g/dL 13.0-16.5 [facility] Work Phone: Blood lymphocytes/100 leukoc yteson 05-30-2022 Lymphocytes/100 WBC (Bld) 18.6 % 19-41 [facility] Work Phone: Blood monocytes/100 leukocyt eson 05-30-2022 Monocytes/100 WBC (Bld) 10.7 % 0-[address] [facility] Work Phone: Blood platelet mean volumeon 05-30-2022 Platelet mean volume (Bld) [Entitic vol] 9.7 fL 6.2-12.0 [facility] Work Phone: Determination of erythrocyte mean corpuscular volume (MCV)on 05-30-2022 MCV (RBC) [Entitic vol] 95.0 fL 80-[address] [facility] Work Phone: Glucose Glucometer (BldC) [M ass/Vol]on 05-30-2022 Glucose [Mass/Vol] 221 mg/dL 74-106 [facility] Work Phone: Comment on above: MANAGEMENT OF PATIEN T CARE PER NURSING PROTOCOL Hematocrit Auto (Bld) [Volum e fraction]on 05-30-2022 Hematocrit (Bld) [Volume fraction] 34.1 % 40-54 [facility] Work Phone: Laboratory - Chemistry and C hemistry - challengeon 05-30-2022 ALP [Catalytic activity/Vol] 57 U/L 45-117 [facility] Work Phone: ALT [Catalytic activity/Vol] 34 U/L 16-61 [facility] Work Phone: CO2 [Moles/Vol] 26.0 mmol/L 21.0-32.0 [facility] Work Phone: Globulin (S) [Mass/Vol] 2.5 g/dL 2.2-4.[address] [facility] Work Phone: Urea nitrogen/Creatinine [Mass ratio] 18.6 mg/mg 10-20 [facility] Work Phone: Laboratory - Hematology and Cell countson 05-30-2022 Erythrocyte distribution width (RBC) [Entitic vol] 40.7 fL 35.1-43.9 [facility] Work Phone: Erythrocyte distribution width (RBC) [Ratio] 11.8 % 11.6-14.6 [facility] Work Phone: Immature granulocytes/100 WBC (Bld) 0.200 % 0.0-0.9 [facility] Work Phone: Comment on above: IG% - Immature Granu locytes (promyelocytes, myelocytes and metamyelocytes) > 1% indicates that a LEFT SHIFT is Present. MCH (RBC) [Entitic mass] 33.4 pg 27.0-32.0 [facility] Work Phone: Nucleated RBC/100 WBC (Bld) [Ratio] 0 % 0-5 [facility] Work Phone: MCHC Auto (RBC) [Mass/Vol]on 05-30-2022 MCHC (RBC) [Mass/Vol] 35.2 g/dL 32-36 [facility] Work Phone: No Panel Informationon 05-30 Estimated Creatinine Clearance Calc 70.97 ml/min [facility] Work Phone: Estimated GFR (MDRD) Amer 144 mL/min >60 [facility] Work Phone: Comment on above: GFR Calc Estimated GFR (MDRD) Non-Af Amer 119 mL/min >60 [facility] Work Phone: Comment on above: Non- GFR Calc Platelets bldon 05-30-2022 Platelets (Bld) [#/Vol] 194 10*3/uL 150-450 [facility] Work Phone: Serum or plasma albumin juany urement (mass/volume)on 05-30-2022 Albumin [Mass/Vol] 3.5 g/dL 3.2-5.0 [facility] Work Phone: Serum or plasma albumin/glob ulin mass ratioon 05-30-2022 Albumin/Globulin [Mass ratio] 1.4 {ratio} 0.9-2.4 [facility] Work Phone: Serum or plasma calcium juany urement (mass/volume)on 05-30-2022 Calcium [Mass/Vol] 8.7 mg/dL 8.5-10.1 [facility] Work Phone: Serum or plasma cholesterol in HDL measurement (mass/volume)on 05-30-2022 Cholesterol in HDL [Mass/Vol] 65 mg/dL >40 [facility] Work Phone: Comment on above: The drugs N-Acetylcy steine and Metamizole may falsely depress this assay. Reference Range HDL <40 mg/dL Low HDL Cholesterol HDL >or= 60 mg/dL High HDL Cholesterol Serum or plasma cholesterol in VLDL measurement (mass/volume)on 05-30-2022 Cholesterol in VLDL [Mass/Vol] 19 mg/dL 5-40 [facility] Work Phone: Serum or plasma creatinine m easurement (mass/volume)on 05-30-2022 Creatinine [Mass/Vol] 0.70 mg/dL 0.70-1.30 [facility] Work Phone: Comment on above: The validity of the calculated GFR & GFRAA in patients over 70 years has not been determined. Clinical correlation is essential. Serum or plasma low density lipoprotein (LDL) cholesterol measurement (mass/volume)on 05-30-2022 Cholesterol in LDL [Mass/Vol] 20 mg/dL 0-130 [facility] Work Phone: Serum or plasma urea nitroge n measurement (mass/volume)on 05-30-2022 Urea nitrogen [Mass/Vol] 13 mg/dL 7-18 [facility] Work Phone: Thin prep Papanicolaou smear with manual screeningon 05-30-2022 Thin prep Papanicolaou smear with manual screening 20 U/L 15-37 [facility] Work Phone: Thin prep Papanicolaou smear with manual screening 5 5-15 [facility] Work Phone: Whole blood hemoglobin A1c/t otal hemoglobin ratio (mass fraction)on 05-30-2022 HbA1c (Bld) [Mass fraction] 5.7 % 3.8-5.6 [facility] Work Phone: Comment on above: Normal < 5.7 % Predi abetic 5.7 - 6.4 % Diabetic >or= 6.5 % Please note range changes. Absolute lymphocyte counton 05-29-2022 Lymphocytes Auto (Unsp spec) [#/Vol] 0.97 10*3/uL 0.83-4.51 [facility] Work Phone: Basophil percentageon 2021 Basophils/100 WBC (Bld) 0.6 % 0-[address] [facility] Work Phone: Chloride [Moles/Vol] 103 mmol/L 98-107 [facility] Work Phone: Eosinophils/100 WBC (Bld) 1.0 % 0-5 [facility] Work Phone: Glucose [Mass/Vol] 162 mg/dL 74-106 [facility] Work Phone: Comment on above: Fasting Glucose resu lt greater than or equal to 126 mg/dL suggests DIABETES MELLITUS per A.D.A. criteria. Neutrophils (Bld) [#/Vol] 3.3 10*3/uL 2.0-7.7 [facility] Work Phone: [phone] Neutrophils/100 WBC (Bld) 68.0 % 47-70 [facility] Work Phone: Potassium [Moles/Vol] 3.8 mmol/L 3.5-5.1 [facility] Work Phone: Comment on above: Slight Hemolysis, Re sult may be falsely increased. Sodium [Moles/Vol] 133 mmol/L 136-145 [facility] Work Phone: WBC (Bld) [#/Vol] 4.9 10*3/uL 4.4-11.0 [facility] Work Phone: Blood erythrocytes count (nu mber/volume)on 05-29-2022 RBC (Bld) [#/Vol] 3.57 10*6/uL 4.6-6.2 [facility]: Blood hemoglobin measurement (mass/volume)on 05-29-2022 Hemoglobin (Bld) [Mass/Vol] 12.3 g/dL 13.0-16.5 [facility] Work Phone: Blood lymphocytes/100 leukoc yteson 05-29-2022 Lymphocytes/100 WBC (Bld) 19.8 % 19-41 [facility] Work Phone: Blood monocytes/100 leukocyt eson 05-29-2022 Monocytes/100 WBC (Bld) 10.4 % 0-[address] [facility] Work Phone: Blood platelet mean volumeon 05-29-2022 Platelet mean volume (Bld) [Entitic vol] 9.5 fL 6.2-12.0 [facility] Work Phone: Determination of erythrocyte mean corpuscular volume (MCV)on 05-29-2022 MCV (RBC) [Entitic vol] 95.5 fL 80-[address] [facility] Work Phone: Hematocrit Auto (Bld) [Volum e fraction]on 05-29-2022 Hematocrit (Bld) [Volume fraction] 34.1 % 40-54 [facility] Work Phone: Laboratory - Chemistry and C hemistry - challengeon 05-29-2022 CO2 [Moles/Vol] 24.0 mmol/L 21.0-32.0 [facility] Work Phone: Urea nitrogen/Creatinine [Mass ratio] 18.2 mg/mg 10-20 [facility] Work Phone: Laboratory - Hematology and Cell countson 05-29-2022 Erythrocyte distribution width (RBC) [Entitic vol] 41.2 fL 35.1-43.9 [facility] Work Phone: Erythrocyte distribution width (RBC) [Ratio] 11.7 % 11.6-14.6 [facility] Work Phone: Immature granulocytes/100 WBC (Bld) 0.200 % 0.0-0.9 [facility] Work Phone: Comment on above: IG% - Immature Granu locytes (promyelocytes, myelocytes and metamyelocytes) > 1% indicates that a LEFT SHIFT is Present. MCH (RBC) [Entitic mass] 34.5 pg 27.0-32.0 [facility] Work Phone: Nucleated RBC/100 WBC (Bld) [Ratio] 0 % 0-5 [facility] Work Phone: MCHC Auto (RBC) [Mass/Vol]on 05-29-2022 MCHC (RBC) [Mass/Vol] 36.1 g/dL 32-36 [facility] Work Phone: No Panel Informationon 05-29 Estimated Creatinine Clearance Calc 80.65 ml/min [facility] Work Phone: Estimated GFR (MDRD) Amer 110 mL/min >60 [facility] Work Phone: Comment on above: GFR Calc Estimated GFR (MDRD) Non-Af Amer 91 mL/min >60 [facility] Work Phone: Comment on above: Non- GFR Calc Troponin I High Sensitivity 21 pg/mL 3.0-78.0 [facility] Work Phone: Comment on above: Please Note: New Sylvia t Units and Gender Specific Reference Ranges. For more information see Policy Stat Procedure Bradley High Sensitivity Troponin (TNIH) and attachments. Platelets bldon 05-29-2022 Platelets (Bld) [#/Vol] 171 10*3/uL 150-450 [facility] Work Phone: Serum or plasma calcium juany urement (mass/volume)on 05-29-2022 Calcium [Mass/Vol] 9.1 mg/dL 8.5-10.1 [facility] Work Phone: Serum or plasma creatinine m easurement (mass/volume)on 05-29-2022 Creatinine [Mass/Vol] 0.88 mg/dL 0.70-1.30 [facility] Work Phone: Comment on above: The validity of the calculated GFR & GFRAA in patients over 70 years has not been determined. Clinical correlation is essential. Serum or plasma urea nitroge n measurement (mass/volume)on 05-29-2022 Urea nitrogen [Mass/Vol] 16 mg/dL 7-18 [facility] Work Phone: Thin prep Papanicolaou smear with manual screeningon 05-29-2022 Thin prep Papanicolaou smear with manual screening 6 5-15 [facility] Work Phone: Vital Signs Date Time Vital Sign Value Performing Clinician Facility 05-07-2025 13:28-0400 Body height 177.[address] Sher Jules MD Work Phone: [phone])553-098588 [place] [address] 05-07-2025 13:28-0400 Body mass index (BMI) [Ratio] 27.8 kg/m2 Dr. Sher Jules MD Work Phone: 1(935)875-086530 [place] [address] 05-07-2025 13:28-0400 Body weight 87.[address] Sher Jules MD Work Phone: 7(207)578-977388 [place] [address] 05-07-2025 13:28-0400 Diastolic blood pressure 71 mm[Hg] Dr. Sher Jules MD Work Phone: 3(256)605-780888 [place] [address] 05-07-2025 13:28-0400 Heart rate 57 /min Dr. Sher Jules MD Work Phone: 4(328)997-899088 [place] [address] 05-07-2025 13:28-0400 Respiratory rate 16 /min Dr. Sher Jules MD Work Phone: 8(404)346-749988 [place] [address] 05-07-2025 13:28-0400 SaO2% (BldA) [Mass fraction] 97 % Dr. Sher Jules MD Work Phone: 2(087)533-928088 [place] [address] 05-07-2025 13:28-0400 Systolic blood pressure 156 mm[Hg] Dr. Sher Jules MD Work Phone: 5(264)185-584630 [place] [address] 05-06-2025 14:05-0400 Body height 177.[address] Sher Jules MD Work Phone: 0(673)343-454330 [place] [address] 05-06-2025 14:05-0400 Body mass index (BMI) [Ratio] 28.4 kg/m2 Dr. Sher Jules MD Work Phone: 4(903)149-111330 [place] [address] 05-06-2025 14:05-0400 Body weight 89.[address] Sher Jules MD Work Phone: 7(361)243-642530 [place] [address] 04-30-2025 00:39-0400 Body temperature 97.9 [degF] Dr. Sher Jules MD Work Phone: 4(219)832-307830 [place] [address] 04-30-2025 00:39-0400 Diastolic blood pressure 70 mm[Hg] Dr. Sher Jules MD Work Phone: 7(149)094-604530 [place] [address] 04-30-2025 00:39-0400 Heart rate 85 /min Dr. Sher Jules MD Work Phone: 5(449)[phone] [place] [address] 04-30-2025 00:39-0400 Respiratory rate 22 /min Dr. Sher Jules MD Work Phone: 0(752)637-763930 [place] [address] 04-30-2025 00:39-0400 SaO2% (BldA) [Mass fraction] 95 % Dr. Sher Jules MD Work Phone: 0(380)234-369030 [place] [address] 04-30-2025 00:39-0400 Systolic blood pressure 148 mm[Hg] Dr. Sher Jules MD Work Phone: 8(079)610-932530 [place] [address] 04-29-2025 22:27-0400 Body height 177.[address] Sher Jules MD Work Phone: 9(616)[phone] [place] [address] 04-29-2025 22:27-0400 Body mass index (BMI) [Ratio] 28 kg/m2 Dr. Sher Jules MD Work Phone: [facility] 04-29-2025 22:27-0400 Body weight 88.[address] Sher Jules MD Work Phone: [facility] 04-14-2025 09:31-0400 Diastolic blood pressure 69 mm[Hg] Nikos Rivera MD Work Phone: [facility] 04-14-2025 09:31-0400 Heart rate 55 /min Nikos Rivera MD Work Phone: [facility] 04-14-2025 09:31-0400 Respiratory rate 16 /min Nikos Rivera MD Work Phone: [facility] 04-14-2025 09:31-0400 SaO2% (BldA) [Mass fraction] 94 % Nikos Rivera MD Work Phone: [facility] 04-14-2025 09:31-0400 Systolic blood pressure 146 mm[Hg] Nikos Rivera MD Work Phone: [facility] 04-14-2025 07:46-0400 Body temperature 98.1 [degF] Nikos Rivera MD Work Phone: [facility] 04-06-2025 09:12-0400 Diastolic blood pressure 65 mm[Hg] Nargis Benavidesle DO Work Phone: [facility] 04-06-2025 09:12-0400 Heart rate 56 /min Nargsi Yin DO Work Phone: [facility] 04-06-2025 09:12-0400 SaO2% (BldA) [Mass fraction] 96 % Nargis Yin DO Work Phone: [facility] 04-06-2025 09:12-0400 Systolic blood pressure 116 mm[Hg] Nargis Yin DO Work Phone: [facility] 02-11-2025 08:53-0400 Body height 177.[address] Sher Jules MD Work Phone: [facility] 02-11-2025 08:53-0400 Body mass index (BMI) [Ratio] 27.5 kg/m2 Dr. Sher Jules MD Work Phone: [facility] 02-11-2025 08:53-0400 Body weight 87.[address] Sher Jules MD Work Phone: [facility] 02-11-2025 08:53-0400 Diastolic blood pressure 72 mm[Hg] Dr. Sher Jules MD Work Phone: [facility] 02-11-2025 08:53-0400 Heart rate 60 /min Dr. Sher Jules MD Work Phone: 7(697)583-955930 [place] [address] 02-11-2025 08:53-0400 Respiratory rate 16 /min Dr. Sher Jules MD Work Phone: 8(391)102-341430 [place] [address] 02-11-2025 08:53-0400 Systolic blood pressure 134 mm[Hg] Dr. Sher Jules MD Work Phone: 1(071)485-176588 [place] [address] 11-20-2024 08:58-0500 Body weight 88.[address] Sher Jules MD Work Phone: [facility] 11-13-2024 13:11-0500 Body mass index (BMI) [Ratio] 27.52 kg/m2 Sher Jules MD Work Phone: [facility] 11-13-2024 13:11-0500 Body weight 87 kg Sher Jules MD Work Phone: [facility] 11-13-2024 13:11-0500 Diastolic blood pressure 62 mm[Hg] Sher Jules MD Work Phone: [facility] 11-13-2024 13:11-0500 Heart rate 60 /min Sher Jules MD Work Phone: [facility] 11-13-2024 13:11-0500 Respiratory rate 16 /min Sher Jules MD Work Phone: [facility] 11-13-2024 13:11-0500 SaO2% (BldA) [Mass fraction] 98 % Sher Jules MD Work Phone: [facility] 11-13-2024 13:11-0500 Systolic blood pressure 132 mm[Hg] Sher Jules MD Work Phone: [facility] 09-30-2024 15:45-0500 Heart rate 53 /min Sergei Collins MD Work Phone: [facility] 09-30-2024 15:45-0500 Respiratory rate 17 /min Sergei Collins MD Work Phone: [facility] 09-30-2024 15:00-0500 Diastolic blood pressure 62 mm[Hg] Sergei Collins MD Work Phone: [facility] 09-30-2024 15:00-0500 Systolic blood pressure 166 mm[Hg] Sergei Collins MD Work Phone: [facility] 09-30-2024 12:33-0500 Body temperature 98.1 [degF] Sergei Collins MD Work Phone: [facility] 09-30-2024 12:33-0500 SaO2% (BldA) [Mass fraction] 99 % Sergei Collins MD Work Phone: [facility] 09-30-2024 10:10-0500 Body height 177.8 cm Sergei Collins MD Work Phone: [facility] 09-30-2024 10:10-0500 Body mass index (BMI) [Ratio] 27.12 kg/m2 Sergei Collins MD Work Phone: [facility] 09-30-2024 10:10-0500 Body weight 85.73 kg Sergei Collins MD Work Phone: [facility] 09-16-2024 14:09-0500 Body height 177.8 cm Sergei Collins MD Work Phone: [facility] 09-16-2024 14:09-0500 Body mass index (BMI) [Ratio] 27.12 kg/m2 Sergei Collins MD Work Phone: [facility] 09-16-2024 14:09-0500 Body weight 85.73 kg Sergei Collins MD Work Phone: [facility] 09-16-2024 14:09-0500 Diastolic blood pressure 64 mm[Hg] Sergei Collins MD Work Phone: [facility] 09-16-2024 14:09-0500 Heart rate 45 /min Sergei Collins MD Work Phone: [facility] 09-16-2024 14:09-0500 Systolic blood pressure 114 mm[Hg] Sergei Collins MD Work Phone: [facility] 09-11-2024 11:03-0500 Diastolic blood pressure 68 mm[Hg] Sher Jules MD Work Phone: [facility] Comment on above: true BP 09-11-2024 11:03-0500 Systolic blood pressure 149 mm[Hg] Sher Jules MD Work Phone: [facility] Comment on above: true BP 09-11-2024 10:54-0500 Body height 177.8 cm Sher Jules MD Work Phone: [facility] 09-11-2024 10:54-0500 Body mass index (BMI) [Ratio] 27.81 kg/m2 Sher Jules MD Work Phone: [facility] 09-11-2024 10:54-0500 Body temperature 97.2 [degF] Sher Jules MD Work Phone: [facility] 09-11-2024 10:54-0500 Body weight 87.9 kg Sher Jules MD Work Phone: [facility] 09-11-2024 10:54-0500 Heart rate 46 /min Sher Jules MD Work Phone: [facility] 09-11-2024 10:54-0500 SaO2% (BldA) [Mass fraction] 99 % Sher Jules MD Work Phone: [facility] 04-07-2024 08:47-0400 Diastolic blood pressure 65 mm[Hg] Nargis Yin DO Work Phone: [facility] 04-07-2024 08:47-0400 Heart rate 45 /min Nargis Yin DO Work Phone: [facility] 04-07-2024 08:47-0400 SaO2% (BldA) [Mass fraction] 98 % Nargis Yin DO Work Phone: [facility] 04-07-2024 08:47-0400 Systolic blood pressure 142 mm[Hg] Nargis Yin DO Work Phone: [facility] 04-06-2024 13:24-0400 Body mass index (BMI) [Ratio] 29.98 kg/m2 Bib Patterson MD Work Phone: [facility] 04-06-2024 13:24-0400 Body weight 92.08 kg Bib Patterson MD Work Phone: [facility] 04-06-2024 13:24-0400 Diastolic blood pressure 62 mm[Hg] Bib Patterson MD Work Phone: [facility] 04-06-2024 13:24-0400 Heart rate 48 /min Bib Patterson MD Work Phone: [facility] 04-06-2024 13:24-0400 SaO2% (BldA) [Mass fraction] 99 % Bib Patterson MD Work Phone: [facility] 04-06-2024 13:24-0400 Systolic blood pressure 143 mm[Hg] Bib Patterson MD Work Phone: [facility] 04-06-2024 10:16-0400 Body height 175.3 cm Gem Bass MD Work Phone: [facility] 04-06-2024 10:16-0400 Body mass index (BMI) [Ratio] 30.04 kg/m2 Gem Bass MD Work Phone: [facility] 04-06-2024 10:16-0400 Body weight 92.26 kg Gem Bass MD Work Phone: [facility] 04-06-2024 10:16-0400 Diastolic blood pressure 68 mm[Hg] Gem Bass MD Work Phone: [facility] 04-06-2024 10:16-0400 Heart rate 45 /min Gem Bass MD Work Phone: [facility] 04-06-2024 10:16-0400 Respiratory rate 19 /min Gem Bass MD Work Phone: [facility] 04-06-2024 10:16-0400 SaO2% (BldA) [Mass fraction] 98 % Gem Bass MD Work Phone: [facility] 04-06-2024 10:16-0400 Systolic blood pressure 122 mm[Hg] Gem Bass MD Work Phone: [facility] 03-11-2024 10:47-0400 Body height 170.2 cm Sher Jules MD Work Phone: [facility] 03-11-2024 10:47-0400 Body mass index (BMI) [Ratio] 31.64 kg/m2 Sher Jules MD Work Phone: [facility] 03-11-2024 10:47-0400 Body temperature 97.59 [degF] Sher Jules MD Work Phone: [facility] 03-11-2024 10:47-0400 Body weight 91.63 kg Sher Jules MD Work Phone: [facility] 03-11-2024 10:47-0400 Diastolic blood pressure 52 mm[Hg] Sher Jules MD Work Phone: [facility] 03-11-2024 10:47-0400 Heart rate 48 /min Sher Jules MD Work Phone: [facility] 03-11-2024 10:47-0400 Respiratory rate 16 /min Sher Jules MD Work Phone: [facility] 03-11-2024 10:47-0400 Systolic blood pressure 108 mm[Hg] Sher Jules MD Work Phone: [facility] 02-19-2024 14:49-0400 Body mass index (BMI) [Ratio] 30.8 kg/m2 Dr. Sher Jules Work Phone: [facility] 02-19-2024 14:49-0400 Body weight 94.[address] Sher Jules Work Phone: [facility] 02-19-2024 14:49-0400 Diastolic blood pressure 68 mm[Hg] Dr. Sher Jules Work Phone: [facility] 02-19-2024 14:49-0400 Heart rate 84 /min Dr. Sher Jules Work Phone: [facility] 02-19-2024 14:49-0400 Respiratory rate 14 /min Dr. Sher Jules Work Phone: [facility] 02-19-2024 14:49-0400 SaO2% (BldA) [Mass fraction] 98 % Dr. Sher Jules Work Phone: [facility] 02-19-2024 14:49-0400 Systolic blood pressure 123 mm[Hg] Dr. Sher Jules Work Phone: [facility] 02-19-2024 14:44-0400 Body height 177.[address] Sher Jules Work Phone: [facility] 02-10-2024 14:57-0400 Body weight 94.8 kg Bib Patterson MD Work Phone: [facility] 02-10-2024 14:57-0400 Diastolic blood pressure 68 mm[Hg] Bib Patterson MD Work Phone: [facility] 02-10-2024 14:57-0400 Heart rate 84 /min Bib Patterson MD Work Phone: [facility] 02-10-2024 14:57-0400 SaO2% (BldA) [Mass fraction] 99 % Bib Patterson MD Work Phone: [facility] 02-10-2024 14:57-0400 Systolic blood pressure 123 mm[Hg] Bib Patterson MD Work Phone: [facility] 02-07-2024 13:35-0400 Body weight 93.76 kg Sher Jules MD Work Phone: [facility] 02-07-2024 13:35-0400 Diastolic blood pressure 64 mm[Hg] Sher Jules MD Work Phone: [facility] 02-07-2024 13:35-0400 Heart rate 56 /min Sher Jules MD Work Phone: [facility] 02-07-2024 13:35-0400 Respiratory rate 16 /min Sher Jules MD Work Phone: [facility] 02-07-2024 13:35-0400 SaO2% (BldA) [Mass fraction] 99 % Sher Jules MD Work Phone: [facility] 02-07-2024 13:35-0400 Systolic blood pressure 126 mm[Hg] Sher Jules MD Work Phone: [facility] 01-30-2024 12:10-0400 SaO2% (BldA) [Mass fraction] 98 % Dr. Sher Jules Work Phone: [facility] 01-30-2024 11:56-0400 Body temperature 98 [degF] Dr. Sher Jules Work Phone: [facility] 01-30-2024 11:56-0400 Diastolic blood pressure 74 mm[Hg] Dr. Sher Jules Work Phone: [facility] 01-30-2024 11:56-0400 Heart rate 59 /min Dr. Sher Jules Work Phone: [facility] 01-30-2024 11:56-0400 Respiratory rate 15 /min Dr. Sher Jules Work Phone: 7(286)162-463168 [place] [address] 01-30-2024 11:56-0400 Systolic blood pressure 137 mm[Hg] Dr. Sher Jules Work Phone: 0(971)990-226230 [place] [address] 01-30-2024 06:00-0400 Inhaled oxygen flow rate 2 L/min Dr. Sher Jules Work Phone: 0(361)459-331130 [place] [address] 01-30-2024 05:29-0400 Body mass index (BMI) [Ratio] 33.2 kg/m2 Dr. Sher Jules Work Phone: 8(711)042-214330 [place] [address] 01-30-2024 05:29-0400 Body weight 102.[address] Sher Jules Work Phone: 0(535)167-034530 [place] [address] 01-29-2024 11:54-0400 Body height 175.[address] Sher Jules Work Phone: 0(157)426-300330 [place] [address] 01-28-2024 22:00-0400 Diastolic blood pressure 55 mm[Hg] Dr. Sher Jules Work Phone: 4(607)590-906030 [place] [address] 01-28-2024 22:00-0400 Heart rate 82 /min Dr. Sher Jules Work Phone: 6(412)833-630030 [place] [address] 01-28-2024 22:00-0400 Inhaled oxygen flow rate 8 L/min Dr. Sher Jules Work Phone: 5(393)805-261230 [place] [address] 01-28-2024 22:00-0400 Respiratory rate 13 /min Dr. Sher Jules Work Phone: 0(869)367-325130 [place] [address] 01-28-2024 22:00-0400 SaO2% (BldA) [Mass fraction] 94 % Dr. Sher Jules Work Phone: 3(156)787-999530 [place] [address] 01-28-2024 22:00-0400 Systolic blood pressure 122 mm[Hg] Dr. Sher Jules Work Phone: 6(589)078-558730 [place] [address] 01-28-2024 18:57-0400 Body temperature 98.2 [degF] Dr. Sher Jules Work Phone: [facility] 01-28-2024 17:52-0400 Body height 177.[address] Sher Jules Work Phone: [facility] 01-28-2024 17:52-0400 Body mass index (BMI) [Ratio] 32.1 kg/m2 Dr. Sher Jules Work Phone: [facility] 01-28-2024 17:52-0400 Body weight 101.[address] Sher Jules Work Phone: [facility] 2024 14:58-0400 Body weight 99.34 kg Barb Maximo MUSEUM CURATOR.SLOT SUPERVISOR Work Phone: [facility] 2024 14:58-0400 Diastolic blood pressure 68 mm[Hg] Barb Maximo MUSEUM CURATOR.SLOT SUPERVISOR Work Phone: [facility] 2024 14:58-0400 Heart rate 70 /min Barb Maximo MUSEUM CURATOR.SLOT SUPERVISOR Work Phone: [facility] 2024 14:58-0400 Respiratory rate 14 /min Barb Maximo MUSEUM CURATOR.SLOT SUPERVISOR Work Phone: [facility] 2024 14:58-0400 Systolic blood pressure 136 mm[Hg] Barb Maximo MUSEUM CURATOR.SLOT SUPERVISOR Work Phone: [facility] 05-06-2023 15:18-0400 Body height 170.2 cm Bib Patterson MD Work Phone: [facility] 05-06-2023 15:18-0400 Body weight 101.24 kg Bib Patterson MD Work Phone: [facility] 05-06-2023 15:18-0400 Diastolic blood pressure 78 mm[Hg] Bib Patterson MD Work Phone: [facility] 05-06-2023 15:18-0400 Heart rate 59 /min Bib Patterson MD Work Phone: [facility] 05-06-2023 15:18-0400 SaO2% (BldA) [Mass fraction] 98 % Bib Patterson MD Work Phone: [facility] 05-06-2023 15:18-0400 Systolic blood pressure 156 mm[Hg] Bib Patterson MD Work Phone: [facility] 04-01-2023 10:21-0400 Body temperature 97.2 [degF] Trevor Robison MD Work Phone: [facility] 04-01-2023 10:21-0400 Body weight 101.7 kg Trevor Robison MD Work Phone: [facility] 04-01-2023 10:21-0400 Diastolic blood pressure 70 mm[Hg] Trevor Robison MD Work Phone: [facility] 04-01-2023 10:21-0400 Heart rate 60 /min Trevor Robison MD Work Phone: [facility] 04-01-2023 10:21-0400 SaO2% (BldA) [Mass fraction] 96 % Trevor Robison MD Work Phone: [facility] 04-01-2023 10:21-0400 Systolic blood pressure 132 mm[Hg] Trevor Robison MD Work Phone: [facility] 03-20-2023 14:11-0400 Diastolic blood pressure 56 mm[Hg] Thompson Monzon MD Work Phone: [facility] 03-20-2023 14:11-0400 Heart rate 60 /min Thompson Monzon MD Work Phone: [facility] 03-20-2023 14:11-0400 SaO2% (BldA) [Mass fraction] 95 % Thompson Monzon MD Work Phone: [facility] 03-20-2023 14:11-0400 Systolic blood pressure 140 mm[Hg] Thompson Monzon MD Work Phone: [facility] 02-06-2023 09:53-0400 Diastolic blood pressure 69 mm[Hg] Sher Jules MD Work Phone: [facility] 02-06-2023 09:53-0400 Heart rate 59 /min Sher Jules MD Work Phone: [facility] 02-06-2023 09:53-0400 Systolic blood pressure 154 mm[Hg] Sher Jules MD Work Phone: [facility] 02-06-2023 09:51-0400 Body weight 101.61 kg Sher Jules MD Work Phone: [facility] 02-06-2023 09:51-0400 Respiratory rate 16 /min Sher Jules MD Work Phone: [facility] 01-15-2023 09:03-0400 Body height 177.8 cm Nargis Yin DO Work Phone: [facility] 01-15-2023 09:03-0400 Body weight 102.51 kg Nargis Yin DO Work Phone: [facility] 01-15-2023 09:03-0400 Diastolic blood pressure 64 mm[Hg] Nargis Yin DO Work Phone: [facility] 01-15-2023 09:03-0400 Heart rate 60 /min Nargis Yin DO Work Phone: [facility] 01-15-2023 09:03-0400 SaO2% (BldA) [Mass fraction] 97 % Nargis Yin DO Work Phone: [facility] 01-15-2023 09:03-0400 Systolic blood pressure 132 mm[Hg] Nargis Yin DO Work Phone: [facility] 10-03-2022 13:16-0500 Diastolic blood pressure 70 mm[Hg] Jules Dukes MD Work Phone: [facility] 10-03-2022 13:16-0500 Systolic blood pressure 140 mm[Hg] Jules Dukes MD Work Phone: [facility] 10-03-2022 13:02-0500 Body height 177.8 cm Jules Dukes MD Work Phone: [facility] 10-03-2022 13:02-0500 Body weight 103.87 kg Jules Dukes MD Work Phone: [facility] 10-03-2022 13:02-0500 Heart rate 66 /min Jules Dukes MD Work Phone: [facility] 10-03-2022 13:02-0500 SaO2% (BldA) [Mass fraction] 96 % Jules Dukes MD Work Phone: [facility] 10-01-2022 09:21-0500 Body height 177.8 cm Trevor Robison MD Work Phone: [facility] 10-01-2022 09:21-0500 Body weight 104.78 kg Trevor Robison MD Work Phone: [facility] 10-01-2022 09:21-0500 Diastolic blood pressure 63 mm[Hg] Trevor Robison MD Work Phone: [facility] 10-01-2022 09:21-0500 Heart rate 75 /min Trevor Robison MD Work Phone: [facility] 10-01-2022 09:21-0500 Systolic blood pressure 124 mm[Hg] Trevor Robison MD Work Phone: [facility] 09-05-2022 15:24-0500 Body height 177.8 cm Jules Dukes MD Work Phone: [facility] 09-05-2022 15:24-0500 Body weight 106.14 kg Jules Dukes MD Work Phone: [facility] 09-05-2022 15:24-0500 Diastolic blood pressure 74 mm[Hg] Jules Dukes MD Work Phone: [facility] 09-05-2022 15:24-0500 Heart rate 66 /min Jules Dukes MD Work Phone: [facility] 09-05-2022 15:24-0500 Respiratory rate 16 /min Jules Dukes MD Work Phone: [facility] 09-05-2022 15:24-0500 SaO2% (BldA) [Mass fraction] 96 % Jules Dukes MD Work Phone: [facility] 09-05-2022 15:24-0500 Systolic blood pressure 186 mm[Hg] Jules Dukes MD Work Phone: [facility] 07-18-2022 09:46-0400 Diastolic blood pressure 70 mm[Hg] Barb Older MUSEUM CURATOR.SLOT SUPERVISOR Work Phone: [facility] 07-18-2022 09:46-0400 Heart rate 57 /min Barb Older MUSEUM CURATOR.SLOT SUPERVISOR Work Phone: [facility] 07-18-2022 09:46-0400 Systolic blood pressure 126 mm[Hg] Barb Older MUSEUM CURATOR.SLOT SUPERVISOR Work Phone: [facility] 07-18-2022 09:18-0400 Body temperature 96.91 [degF] Barb Older MUSEUM CURATOR.SLOT SUPERVISOR Work Phone: [facility] 07-18-2022 09:18-0400 Body weight 103.87 kg Barb Older MUSEUM CURATOR.SLOT SUPERVISOR Work Phone: [facility] 06-28-2022 10:55-0400 Diastolic blood pressure 67 mm[Hg] Mi Nurse Work Phone: [facility] 06-28-2022 10:55-0400 Heart rate 57 /min Mi Nurse Work Phone: [facility] 06-28-2022 10:55-0400 Systolic blood pressure 143 mm[Hg] Mi Nurse Work Phone: [facility] 06-11-2022 18:59-0400 Diastolic blood pressure 68 mm[Hg] Sher Jules MD Work Phone: [facility] 06-11-2022 18:59-0400 Heart rate 57 /min Sher Jules MD Work Phone: [facility] 06-11-2022 18:59-0400 Systolic blood pressure 172 mm[Hg] Sher Jules MD Work Phone: [facility] 06-11-2022 18:41-0400 Body temperature 97.3 [degF] Sher Jules MD Work Phone: [facility] 06-11-2022 18:41-0400 Body weight 105.14 kg Sher Jules MD Work Phone: [facility] 06-11-2022 18:41-0400 Respiratory rate 18 /min Sher Jules MD Work Phone: [facility] 05-30-2022 15:55-0400 Body temperature 98 [degF] Dr. Sher Jules Work Phone: [facility] Work Phone: 05-30-2022 15:55-0400 Diastolic blood pressure 63 mm[Hg] Dr. Sher Jules Work Phone: [facility] Work Phone: 05-30-2022 15:55-0400 Heart rate 83 /min Dr. Sher Jules Work Phone: [facility] Work Phone: 05-30-2022 15:55-0400 Respiratory rate 16 /min Dr. Sher Jules Work Phone: [facility] Work Phone: 05-30-2022 15:55-0400 SaO2% (BldA) [Mass fraction] 96 % Dr. Sher Jules Work Phone: [facility] Work Phone: 05-30-2022 15:55-0400 Systolic blood pressure 155 mm[Hg] Dr. Sher Jules Work Phone: [facility] Work Phone: 05-30-2022 09:36-0400 Body height 177.[address] Sher Jules Work Phone: [facility] Work Phone: 05-30-2022 09:36-0400 Body weight 104.[address] Sher Jules Work Phone: [facility] Work Phone: 05-30-2022 08:50-0400 Body mass index (BMI) [Ratio] 33 kg/m2 Dr. Sher Jules Work Phone: [facility] Work Phone: 05-30-2022 01:19-0400 Body height 177.8 cm [facility] Work Phone: 05-30-2022 01:19-0400 Body mass index (BMI) [Ratio] 33 kg/m2 [facility] Work Phone: 05-30-2022 01:19-0400 Body weight 104.6 kg [facility] Work Phone: 05-30-2022 00:47-0400 Body temperature 97.8 [degF] [facility] Work Phone: 05-30-2022 00:47-0400 Diastolic blood pressure 85 mm[Hg] [facility] Work Phone: 05-30-2022 00:47-0400 Heart rate 70 /min [facility] Work Phone: 05-30-2022 00:47-0400 Respiratory rate 16 /min [facility] Work Phone: 05-30-2022 00:47-0400 SaO2% (BldA) [Mass fraction] 94 % [facility] Work Phone: 05-30-2022 00:47-0400 Systolic blood pressure 171 mm[Hg] [facility] Work Phone: 03-27-2022 08:22-0400 Body height 172 cm Nargis Yin Modacruz Work Phone: [facility] 03-27-2022 08:22-0400 Body weight 105.23 kg Nargis Yin DO Work Phone: [facility] 03-27-2022 08:22-0400 Diastolic blood pressure 58 mm[Hg] Nargis Yin DO Work Phone: [facility] 03-27-2022 08:22-0400 Heart rate 62 /min Nargis Yin DO Work Phone: [facility] 03-27-2022 08:22-0400 SaO2% (BldA) [Mass fraction] 96 % Nargis Yin DO Work Phone: [facility] 03-27-2022 08:22-0400 Systolic blood pressure 142 mm[Hg] Nargis Yin DO Work Phone: [facility] Encounters Encounter Date Encounter Type Care Provider Facility Start: 05-07-2025 End: 05-07-[address] Nic Rodriguez MD -[facility] Work Phone: Start: 05-07-2025 End: 05-07-[address] Sher Jules MD Work Phone: [facility] Start: 05-06-2025 End: 05-06-[address] Nain Segundo MD -[facility] Start: 05-06-2025 End: 05-06-[address] Sher Jules MD Work Phone: -[facility] Start: 04-29-2025 End: 04-30-2025 Emergency department patient visit Dr. Sher Jules MD Work Phone: -Emergency Department Work Phone: Start: 04-22-2025 End: 04-22-2025 Patient encounter procedure Elvie Monterroso APRN.SLOT SUPERVISOR Work Phone: General Surgery Comment on above: Gastritis and duoden itis (Primary Dx); Gastroesophageal reflux disease with esophagitis without hemorrhage; Adenomatous polyp of colon, unspecified part of colon Start: 04-22-2025 End: 04-22-2025 ambulatory SHER JULES Facility:[facility] Start: 04-14-2025 ambulatory SHER bhagat:[facility] Start: 04-14-2025 End: 04-14-2025 Subsequent hospital visit by physician Nikso Rivera MD Work Phone: Ambulatory Surgery Comment on above: Anemia, unspecified type [D64.9] Start: 04-06-2025 End: 04-06-2025 Patient encounter procedure Nargis Yin DO Work Phone: Vascular Surgery Comment on above: Peripheral arterial disease (Primary Dx) Start: 04-06-2025 End: 04-06-2025 ambulatory NARGIS YIN Facility:[facility] Start: 04-01-2025 End: 04-01-2025 Follow-up encounter Sher Jules MD Work Phone: [facility] [place] Start: 03-31-2025 End: 03-31-2025 ambulatory SHER JULES Facility:[facility] Start: 03-18-2025 End: 03-18-2025 ambulatory ELVIE MONTERROSO Facility:[facility] Start: 03-16-2025 End: 03-16-2025 ambulatory SHER JULES Facility:[facility] Start: 03-16-2025 End: 03-16-2025 ambulatory SHER JULES Facility:[facility] Start: 03-16-2025 Patient encounter procedure BARB SUGGS [facility] Start: 03-15-2025 End: 03-15-2025 ambulatory SHER JULES Facility:[facility] Start: 03-12-2025 Non-patient / Non-visit Naz MONAHAN -[facility] Work Phone: Start: 03-12-2025 ambulatory Naz Cox [place] [facility] [place] Start: 03-11-2025 Non-patient / Non-visit Dr. Rubio head MD -[facility] Start: 03-11-2025 End: 03-11-[address] Sher Jules MD Work Phone: [facility] Work Phone: Start: 03-11-2025 End: 03-11-[address] Rubio Simeon MD -Cardiovascular Services Work Phone: Start: 03-11-2025 End: 03-11-2025 ambulatory Rubio [facility] Facility:[facility] Start: 03-04-2025 End: 03-04-2025 Refill Bib Patterson MD Work Phone: Cardiology Comment on above: Refill Request Start: 02-23-2025 End: 02-23-2025 Patient encounter procedure Gomez Schwab Work Phone: Podiatry Comment on above: Onychomycosis (Prima ry Dx); Pain in toe of left foot; Pain in toe of right foot; Diabetic polyneuropathy associated with type 2 diabetes mellitus (HCC); PAD (peripheral artery disease) Start: 02-23-2025 End: 02-23-2025 ambulatory GOMEZ MCCABEMIGUEL Facility:[facility] Start: 02-11-2025 End: 02-11-[address] Rubio Simeon MD -[facility] Work Phone: Start: 02-11-2025 End: 02-11-2025 ambulatory Sher Jules [place] [place] Start: 02-01-2025 End: 02-01-2025 Refill Sher Jules MD Work Phone: [facility] [place] Comment on above: Refill Request Start: 12-08-2024 ambulatory [facility] Facility:[facility] Start: 11-20-2024 End: 11-27-2024 ambulatory [facility] Facility:[facility] Start: 11-20-2024 End: 11-27-[address] Rubio Simeon MD -Cardiac Rehab Work Phone: Start: 11-19-2024 End: 11-19-2024 ambulatory SHER JULES Facility:[facility] Start: 11-19-2024 End: 11-19-2024 Patient encounter procedure Gomez Schwab Work Phone: Podiatry Comment on above: Onychomycosis (Prima ry Dx); Pain in toe of left foot; Pain in toe of right foot; Diabetic polyneuropathy associated with type 2 diabetes mellitus (HCC); PAD (peripheral artery disease) (HCC) Start: 11-13-2024 End: 11-13-2024 Office outpatient visit 25 minutes Sher Jules MD Work Phone: [facility] [place] Comment on above: Diabetic peripheral neuropathy (HCC) (Primary Dx); Essential hypertension; Anemia, unspecified type; Well controlled type 2 diabetes mellitus with neurological manifestations (HCC); S/P drug eluting coronary stent placement Start: 11-13-2024 End: 11-13-2024 ambulatory SHER JULES Facility:[facility] Start: 11-11-2024 End: 11-11-2024 ambulatory Palak Rosales LPN [facility] [place] Start: 10-26-2024 End: 10-27-2024 ambulatory Rubio Blanco Facility:[facility] Start: 10-19-2024 End: 10-20-2024 Orders Only Sher Jules MD Work Phone: [facility] [place] Comment on above: Hyponatremia (Primar y Dx); Anemia, unspecified type Start: 10-14-2024 ambulatory Karl Wan Facility:[facility] Start: 10-14-2024 End: 10-14-2024 ambulatory Rubio Blanco Facility:[facility] Start: 10-12-2024 End: 10-12-2024 ambulatory Tootie Chu CDL [employer]K DRIVER Facility:[facility] Start: 10-12-2024 End: 10-12-2024 ambulatory Tootie Chu CDL BULK DRIVER Facility:[facility] Start: 10-06-2024 End: 10-06-2024 ambulatory SHER JULES Facility:[facility] Start: 09-30-2024 End: 09-30-2024 Orders Only Xochitl Solano APRN - SLOT SUPERVISOR Work Phone: [facility] Comment on above: Coronary artery dise ase involving hoh coronary artery of hoh heart without angina pectoris (Primary Dx); Primary hypertension Stented coronary art martina (Primary Dx); Coronary artery disease involving hoh coronary artery of hoh heart without angina pectoris; Angina pectoris, unstable (CMS/HCC) (HCC) Start: 09-29-2024 End: 09-29-2024 ambulatory Bárbara Burton APRZunilda Whiteside CNP Work Phone: [facility] Start: 09-28-2024 End: 09-28-2024 ambulatory Rubio Blanco Facility:[facility] Start: 09-23-2024 End: 09-23-2024 ambulatory Rubio Blanco [place] [place] Start: 09-16-2024 End: 09-16-2024 Office outpatient new 45 minutes Sergei Collins MD Work Phone: [facility] Comment on above: Shortness of breath (Primary Dx); Coronary artery disease involving hoh coronary artery of hoh heart without angina pectoris; Stented coronary artery; S/P CABG x 3; Family history of chronic ischemic heart disease; Diabetes mellitus type 2 in nonobese (CMS/HCC) ([facility]); Primary hypertension; Mixed hyperlipidemia Start: 09-16-2024 End: 09-16-2024 ambulatory SERGEI KARINA [facility] Start: 09-15-2024 End: 09-15-2024 Telephone encounter Sher Jules MD Work Phone: [facility] [place] Comment on above: Medication Update Start: 09-14-2024 End: 09-15-2024 Telephone encounter Sher Jules MD Work Phone: [facility] [place] Comment on above: Results Start: 09-14-2024 End: 09-14-2024 ambulatory Rubio Blanco [place] [place] Start: 09-13-2024 End: 09-13-2024 Orders Only Sher Jules MD Work Phone: [facility] [place] Comment on above: Hyponatremia (Primar y Dx); Hyperkalemia; Anemia, unspecified type Start: 09-11-2024 End: 09-11-2024 ambulatory SHER JULES Facility:[facility] Start: 09-11-2024 End: 09-11-2024 Office outpatient visit 25 minutes Sher Jules MD Work Phone: [facility] [place] Comment on above: Coronary artery dise ase involving hoh coronary artery of hoh heart without angina pectoris (Primary Dx); Stented coronary artery; Essential hypertension; Hyperlipidemia with target LDL less than 70; Well controlled type 2 diabetes mellitus with neurological manifestations (HCC) Start: 07-03-2024 ambulatory Sher Jules Facili ty:[facility] Start: 07-02-2024 End: 07-03-2024 Refill Barb Suggs APRN.SLOT SUPERVISOR Work Phone: [facility] [place] Comment on above: Refill Request Start: 06-30-2024 ambulatory Sher Jules Facili ty:[facility] Start: 06-26-2024 End: 06-26-2024 Patient encounter procedure Gomez Schwab Work Phone: Podiatry Comment on above: Onychomycosis (Prima ry Dx); Pain in toe of left foot; Pain in toe of right foot; PAD (peripheral artery disease) (HCC); Diabetic polyneuropathy associated with type 2 diabetes mellitus (HCC) Start: 06-26-2024 End: 06-26-2024 ambulatory GOMEZ SCHWAB Facility:[facility] Start: 06-23-2024 End: 06-23-2024 ambulatory Sher Jules Facility:[facility] Start: 06-16-2024 End: 06-16-2024 Refill Barb Suggs APRN.SLOT SUPERVISOR Work Phone: Internal Medicine [place] Comment on above: Refill Request Start: 06-08-2024 ambulatory Sher Jules Facili ty:[facility] Start: 06-08-2024 End: 06-08-2024 ambulatory Sher Jules Facility:[facility] Start: 06-07-2024 ambulatory Sher Jules Facili ty:[facility] Start: 05-28-2024 End: 05-28-2024 ambulatory Sher Jules Facility:[facility] Start: 05-27-2024 End: 05-27-2024 ambulatory Sher Jules Facility:[facility] Start: 04-07-2024 End: 04-07-2024 Patient encounter procedure Nargis Yin DO Work Phone: Vascular Surgery Comment on above: Peripheral arterial disease (HCC) (Primary Dx) Start: 04-06-2024 End: 04-06-2024 Patient encounter procedure Bib Patterson MD Work Phone: Cardiology Comment on above: Essential hypertensi on (Primary Dx); Hyperlipidemia with target LDL less than 70; Hx of CABG; Coronary artery disease involving hoh coronary artery of hoh heart without angina pectoris Start: 04-06-2024 End: 04-06-2024 Patient encounter procedure Gem Bass MD Work Phone: General Surgery Comment on above: Special screening fo r malignant neoplasms, colon; History of colonic polyps; Coronary artery disease involving hoh coronary artery of hoh heart, unspecified whether angina present Start: 03-13-2024 End: 03-13-2024 Patient encounter procedure Gomez Schwab Work Phone: Podiatry Comment on above: Onychomycosis (Prima ry Dx); Pain in toe of left foot; Pain in toe of right foot; PAD (peripheral artery disease) (HCC); Diabetic polyneuropathy associated with type 2 diabetes mellitus (HCC) Start: 03-12-2024 [facility] Start: 03-12-2024 [facility] Start: 03-12-2024 End: 03-12-2024 Subsequent hospital visit by physician [facility] Work Phone: Cardiology Lab Comment on above: CORONARY ARTERIOSCLE ROSIS Start: 03-12-2024 End: 03-12-2024 Subsequent hospital visit by physician [facility] 2 Work Phone: Molecular Imaging Comment on above: CORONARY ARTERIOSCLE ROSIS Start: 03-11-2024 Telephone encounter Edelmira brooke RN Cardiology Lab Start: 03-11-2024 End: 03-11-2024 Patient encounter procedure Sher Jules MD Work Phone: Internal Medicine [place] Comment on above: Medicare annual well ness visit, subsequent (Primary Dx); Special screening for malignant neoplasms, colon; Well controlled type 2 diabetes mellitus with neurological manifestations (HCC); PAD (peripheral artery disease) (HCC); Coronary artery disease involving hoh coronary artery of hoh heart without angina pectoris; Hyperlipidemia with target LDL less than 70; Benign neoplasm of colon, unspecified part of colon Start: 02-25-2024 Refill Sher lea MD Work Phone: Internal Medicine [place] Comment on above: Refill Request Start: 02-24-2024 End: 02-25-[address] Sher Jules Work Phone: [facility] Work Phone: Start: 02-24-2024 End: 02-25-[address] Sher Jules Work Phone: [facility] Work Phone: Start: 02-24-[address] Jaylon Jules Work Phone: [facility] Work Phone: Start: 02-19-2024 End: 02-19-[address] Sher Jules Work Phone: [facility] Work Phone: Start: 02-19-2024 End: 02-19-[address] Sher Jules Work Phone: [facility] Work Phone: Start: 02-10-2024 End: 02-10-2024 Patient encounter procedure Bib Patterson MD Work Phone: Cardiology Comment on above: Coronary arterioscle rosis after percutaneous transluminal coronary angioplasty (PTCA) (Primary Dx); Essential hypertension; PAD (peripheral artery disease) ([facility]) Start: 02-07-2024 End: 02-07-2024 Patient encounter procedure Sher Jules MD Work Phone: Internal [facility] Comment on above: Non-STEMI (non-ST el evated myocardial infarction) ([facility]) (Primary Dx); S/P CABG x 3; Essential hypertension; Hyperlipidemia with target LDL less than 70; Well controlled type 2 diabetes mellitus with neurological manifestations (HCC); PAD (peripheral artery disease) (HCC); Abnormality of lung on CXR; Obesity, Class I, BMI 30-34.9 Start: 02-03-2024 Admission to [facility] Sher Jules MD Work Phone: Ambulatory Surgery Comment on above: colorectal cancer sc reening Start: 02-03-2024 ambulatory Sher lea MD Work Phone: Ambulatory Surgery Start: 01-31-2024 Patient Outreach Sher ace MD Work Phone: Internal Medicine [place] Comment on above: Transition Of Care Start: 01-30-2024 Telephone encounter Bib Patterson MD Work Phone: Cardiology Comment on above: PT HOSPITALIZED Start: 01-30-2024 Non-patient / Non-visit Dr. Maria E Jules Work Phone: [facility] Start: 01-30-2024 Non-patient / Non-visit Dr. Maria E Jules Work Phone: [facility] Work Phone: Start: 01-29-2024 Non-patient / Non-visit Dr. Maria E Jules Work Phone: [facility] Work Phone: Start: 01-29-2024 Non-patient / Non-visit Dr. Maria E Jules Work Phone: [facility] Start: 01-28-2024 End: 01-30-2024 Evaluation and management of inpatient Dr. Sher Jules Work Phone: [facility]Int[facility] Work Phone: Start: 01-28-2024 Non-patient / Non-visit Dr. Maria E Jules Work Phone: [facility] Work Phone: Start: 2024 End: 2024 Refill Barb Suggs APRN.CNP Work Phone: Family Medicine [place] Comment on above: Refill Request Arm Pain Pain in both wrists (Primary Dx) Pain in both wrists [M25.531, M25.532] Start: 01-06-2024 Refill Sher lea MD Work Phone: Internal Medicine [place] Comment on above: Refill Request Start: 12-20-2023 Refill Sher lea MD Work Phone: Internal Medicine [place] Comment on above: Refill Request Start: 10-31-2023 End: 10-31-2023 Patient encounter procedure Gomez Schwab Work Phone: Podiatry Comment on above: Onychomycosis (Prima ry Dx); Pain in toe of left foot; Pain in toe of right foot; Well controlled type 2 diabetes mellitus with neurological manifestations (HCC); PAD (peripheral artery disease) (HCC); Hyperkeratosis; Ingrowing toenail with infection Start: 09-29-2023 Refill Nargis Stanton Work Phone: Vascular Surgery Comment on above: Refill Request Start: 09-10-2023 ambulatory Veronica Sierra [facility] Comment on above: Population Health Na [facility] Outreach ([facility]) Start: 08-09-2023 End: 08-09-2023 Patient encounter procedure Sher Jules MD Work Phone: Internal Medicine [place] Comment on above: Obesity, Class II, B MD 35-39.9 (Primary Dx); Coronary artery disease involving hoh coronary artery of hoh heart without angina pectoris; PAD (peripheral artery disease) (HCC); Essential hypertension; Hyperlipidemia with target LDL less than 70; Well controlled type 2 diabetes mellitus with neurological manifestations (HCC) Start: 07-26-2023 End: 07-26-2023 Patient encounter procedure Gomez Schwab Work Phone: Podiatry Comment on above: Onychomycosis (Prima ry Dx); Pain in toe of left foot; Pain in toe of right foot; Well controlled type 2 diabetes mellitus with neurological manifestations (HCC); PAD (peripheral artery disease) (HCC); Hyperkeratosis Start: 05-06-2023 End: 05-06-2023 Patient encounter procedure Bib Patterson MD Work Phone: Cardiology Comment on above: Screening for ischem ic heart disease (Primary Dx); Coronary artery disease involving hoh coronary artery of hoh heart without angina pectoris; Hx of CABG; PVD (peripheral vascular disease) (HCC) Start: 04-08-2023 End: 04-08-2023 Patient encounter procedure Gomez Josselin Work Phone: Podiatry Comment on above: Onychomycosis (Prima ry Dx); Pain in toe of left foot; Pain in toe of right foot; Well controlled type 2 diabetes mellitus with neurological manifestations (HCC); PAD (peripheral artery disease) (HCC); Hyperkeratosis Start: 04-01-2023 End: 04-01-2023 Patient encounter procedure Trevor Robsion MD Work Phone: Neurology Comment on above: 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); Diabetic peripheral neuropathy (HCC) Start: 03-27-2023 Refill Barb Leon APRN, .CNP Work Phone: Internal Medicine [place] Comment on above: Refill Request Start: 03-20-2023 End: 03-20-2023 Patient encounter procedure Thompson Monzon MD Work Phone: Vascular Surgery Comment on above: 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) (Primary Dx); Peripheral arterial disease (HCC) Start: 02-14-2023 End: 02-14-2023 Subsequent hospital visit by physician [facility] Comment on above: Peripheral vascular disease (HCC) [I73.9] Start: 02-06-2023 End: 02-06-2023 Patient encounter procedure Sher Jules MD Work Phone: Internal Medicine [place] Comment on above: Well controlled type 2 diabetes mellitus with neurological manifestations (HCC) (Primary Dx); Essential hypertension; Hyperlipidemia with target LDL less than 70; PAD (peripheral artery disease) (HCC) Start: 02-04-2023 Telephone encounter Sher armas MD Work Phone: Internal Medicine [place] Comment on above: Med Change Request Start: 01-31-2023 Patient Msg [facility] Provider Internal Medicine [place] Comment on above: Refill request Start: 01-30-2023 Refill Barb Older MUSEUM CURATOR .SLOT SUPERVISOR Work Phone: Family Medicine [place] Comment on above: Refill Request Start: 01-16-2023 Refill Barb Older MUSEUM CURATOR .SLOT SUPERVISOR Work Phone: Family Medicine [place] Comment on above: Refill Request Start: 01-15-2023 End: 01-15-2023 Patient encounter procedure Nargis Yin DO Work Phone: Vascular Surgery Comment on above: Peripheral vascular disease (HCC) (Primary Dx); Screening for nephropathy Start: 01-02-2023 Refill Jules Dukes MD Work Phone: Cardiology Comment on above: Refill Request Start: 12-12-2022 ambulatory Sher lea MD Work Phone: Internal Medicine [place] Comment on above: Blood sugar Start: 12-12-2022 Telephone encounter Sher armas MD Work Phone: Internal Medicine [place] Comment on above: Medication Request Start: 10-23-2022 Refill Tara Older MUSEUM CURATOR .SLOT SUPERVISOR Work Phone: Internal Medicine [place] Comment on above: Refill Request Start: 10-10-2022 ambulatory Veronica Sierra [facility] Comment on above: Population Health Na vigation Outreach ([facility]) Start: 10-03-2022 End: 10-03-2022 Patient encounter procedure Jules Dukes MD Work Phone: Cardiology Comment on above: Primary hypertension (Primary Dx); Coronary artery disease involving hoh coronary artery of hoh heart without angina pectoris; Hx of CABG; PAD (peripheral artery disease) (HCC) Start: 10-01-2022 End: 10-01-2022 Patient encounter procedure Trevor Robison MD Work Phone: Neurology Comment on above: 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) Start: 09-24-2022 End: 09-24-2022 ambulatory Kathie Garcia APRN.BUSINESS ENTERPRISE OFFICER Work Phone: Internal Medicine [place] Comment on above: COVID-19 virus infec tion (Primary Dx) Start: 09-24-2022 End: 09-24-2022 Telemedicine consultation with patient Kathie Garcia APRN.BUSINESS ENTERPRISE OFFICER Work Phone: [facility] Start: 09-11-2022 End: 09-11-2022 Patient encounter procedure Gomez Schwab Work Phone: Podiatry Comment on above: Onychomycosis (Prima ry Dx); Hyperkeratosis; Pain in toe of left foot; Pain in toe of right foot; Well controlled type 2 diabetes mellitus with neurological manifestations (HCC); PAD (peripheral artery disease) (HCC) Start: 09-05-2022 End: 09-05-2022 Patient encounter procedure Jules Dukes MD Work Phone: Cardiology Comment on above: Coronary artery dise ase involving hoh coronary artery of hoh heart without angina pectoris (Primary Dx); Essential hypertension; S/P CABG x 3; Central retinal artery occlusion of left eye Start: 07-18-2022 End: 07-18-2022 Patient encounter procedure Barb Leon APRNBradSLOT SUPERVISOR Work Phone: Internal Medicine [place] Comment on above: Essential hypertensi on (Primary Dx); Need for influenza vaccination; Well controlled type 2 diabetes mellitus with neurological manifestations (HCC) Start: 07-09-2022 Refill Sher lea MD Work Phone: Internal Medicine [place] Comment on above: Refill Request Start: 06-28-2022 End: 06-28-2022 Nursing evaluation of patient and report Mi Nurse Work Phone: Family Medicine [place] Comment on above: Essential hypertensi on (Primary Dx) Start: 06-14-2022 Refill Sher lea MD Work Phone: Internal Medicine [place] Comment on above: Refill Request Start: 06-11-2022 End: 06-11-2022 Patient encounter procedure Sher Jules MD Work Phone: Internal Medicine [place] Comment on above: Hyperlipidemia with target LDL less than 70 (Primary Dx); Essential hypertension; Well controlled type 2 diabetes mellitus with neurological manifestations (HCC); Branch retinal artery occlusion, left; S/P CABG x 3 Start: 06-05-2022 Telephone encounter Sher armas MD Work Phone: Internal [facility] Comment on above: Appointment Start: 05-30-2022 Non-patient / Non-visit Dr. Maria E Jules Work Phone: [facility] Start: 05-30-2022 Non-patient / Non-visit Dr. Maria E Jules Work Phone: [facility] Start: 05-30-2022 End: 05-30-2022 Evaluation and management of inpatient [facility] Care [facility] Start: 05-29-2022 Telephone encounter Sher armas MD Work Phone: [facility] Comment on above: Dr. Christian gil (Head Esthetician) Start: 05-02-2022 End: 05-02-2022 Patient encounter procedure Gomez Josselin Work Phone: Podiatry Comment on above: Onychomycosis (Prima ry Dx); Pain in toe of left foot; Pain in toe of right foot; Well controlled type 2 diabetes mellitus with neurological manifestations (HCC); PAD (peripheral artery disease) (HCC); Hyperkeratosis Start: 03-27-2022 End: 03-27-2022 Patient encounter procedure Nargis Yin DO Work Phone: Vascular Surgery Comment on above: Peripheral arterial disease (HCC) (Primary Dx) Start: 02-28-2022 Refill Sher lea MD Work Phone: Internal [facility] Comment on above: Refill Request Procedures Date Procedure Procedure Detail Performing Clinician Start: 05-06-2025 Plain x-ray of hand Dr. Sher Jules MD Work Phone: Start: 04-29-2025 CT of head without contrast Dr. Sher Jules MD Work Phone: Start: 04-14-2025 Colonoscopy flx dx w/collj spec when pfrmd Elvie Monterroso MUSEUM CURATOR.SLOT SUPERVISOR Work Phone: Start: 04-14-2025 Esophagogastroduodenoscopy transoral diagnostic Elvie Monterroso MUSEUM CURATOR.SLOT SUPERVISOR Work Phone: Start: 04-14-2025 Gluc bld gluc mntr dev cleared fda spec home use Nikos Rivera MD Work Phone: Start: 04-14-2025 Colonoscopy Nikos Rivera MD Work Phone: Start: 03-16-2025 Adult depression screening assessment Sher Jules MD Work Phone: Start: 11-13-2024 History of placement of stent for coronary artery disease S/P drug eluting coronary stent placement Sher Jules MD Work Phone: Start: 09-30-2024 Ecg routine ecg w/least 12 lds trcg only w/o i&r Cecile Coats MD Work Phone: Start: 09-30-2024 Cardiac catheterization study Sergei alcantar MD Work Phone: Start: 09-30-2024 Percutaneous coronary intervention Sergei Collins MD Work Phone: Start: 09-30-2024 End: 09-30-2024 POCT ACT Sergei Collins MD Work Phone: Start: 09-30-2024 Potassium serum plasma/whole blood Lawanda on B Puliafico MUSEUM CURATOR - SLOT SUPERVISOR Work Phone: Start: 09-16-2024 Ecg routine ecg w/least 12 lds w/i&r Sergei Collins MD Work Phone: Start: 03-12-2024 Myocardial spect multiple studies Bib Patterson MD Work Phone: Start: 03-11-2024 Adult depression screening assessment Barb Suggs MUSEUM CURATOR.SLOT SUPERVISOR Work Phone: Start: 01-28-2024 CT angiography of chest with contrast Dr. Sher Jules Work Phone: Start: 01-28-2024 Plain chest X-ray Dr. Sher Jules Work Phone: Start: 2024 Radex wrist complete minimum 3 views Barb Suggs MUSEUM CURATOR.SLOT SUPERVISOR Work Phone: Start: 10-31-2023 Cul bact xcpt urine blood/stool aerobic isol Gomez Testke Work Phone: Start: 02-14-2023 Cta abdl aorta&bi iliofem w/contrast&postp Nargis D Yin DO Work Phone: Start: 09-05-2022 Ecg routine ecg w/least 12 lds i&r only [facility] Provider Start: 07-18-2022 INFLUENZA SEASONAL QUADRIVALENT HIGH DOSE AGE 65+ Barb Older MUSEUM CURATOR.SLOT SUPERVISOR Work Phone: Start: 07-18-2022 Adult depression screening assessment Barb Older MUSEUM CURATOR.SLOT SUPERVISOR Work Phone: Start: 05-30-2022 MRI of brain without contrast Dr. Sher Jules Work Phone: Start: 05-30-2022 Magnetic resonance angiography of head without contrast Dr. Sher Jules Work Phone: Start: 05-30-2022 MRI of neck vessels with contrast Dr. Maria E Jules Work Phone: Start: 05-29-2022 CT of head without contrast Start: 02-23-2021 Adult depression screening assessment Sher Jules MD Work Phone: Start: 12-02-2018 Colonoscopy Sher Jules MD Work Phone: Start: 05-17-2014 History of coronary artery bypass grafting S/P CABG x 3 Sher Jules MD Work Phone: History of coronary artery bypass grafting S/P CABG x 3 Sher Jules MD Work Phone: History of coronary artery bypass grafting S/P CABG x 3 Jules Dukes MD Work Phone: History of coronary artery bypass grafting Hx of CABG Jules Dukes MD Work Phone: History of coronary artery bypass grafting Hx of CABG Bib Patterson MD Work Phone: History of coronary artery bypass grafting History of coronary artery bypass graft x 3 Dr. Sher Julse Work Phone: History of coronary artery bypass grafting S/P CABG x 3 Sher Jules MD Work Phone: History of coronary artery bypass grafting Hx of CABG Bib Patterson MD Work Phone: History of coronary artery bypass grafting S/P CABG x 3 Sergei Collins MD Work Phone: History of coronary artery bypass grafting S/P CABG x 3 Dr. Sher Jules MD Work Phone: Comment on above: CABG x 3 wright LAD, SVG-PDA, SVG-lateral ramus-10/20/2013 History of coronary artery bypass grafting S/P CABG x 3 Dr. Rubio Simeon MD Plan of Treatment Date Care Activity Detail Author Start: 08-04-2032 DTaP/Tdap/Td Vaccines (3 - Td or Tdap) DTaP/Tdap/Td Vaccines (3 - Td or Tdap) [facility] Start: 08-04-2032 [facility] Start: 04-14-2030 Screening for malignant neoplasm of colon [facility] Start: 04-06-2026 BP Controlled (<130/80) BP Controlled (<130/80) [facility] inic Start: 04-05-2026 End: 04-05-2026 Patient encounter procedure Vasculary Ramirez mario Comment on above: Peripheral arterial disease [I73.9] 1 year follow up aft er testing Start: 03-29-2026 Glaucoma screening Dilated Retinal Exam [facility] Start: 03-18-2026 BP Controlled (<130/80) BP Controlled (<130/80) [facility] Start: 03-17-2026 Screening for malignant neoplasm of colon Fecal Occult Blood [facility] Start: 03-16-2026 Annual PCP Team Chronic Disease Visit Annual PCP Team Chronic Disease Visit [facility] Start: 03-16-2026 Anxiety Screening Anxiety Screening [facility] Start: 03-16-2026 Depression Screening Depression Screening [facility] Start: 03-16-2026 Medicare Annual Wellness Visit Medicare Annual Wellness Visit [facility] Start: 11-13-2025 Annual PCP Team Chronic Disease Visit Annual PCP Team Chronic Disease Visit [facility] Start: 09-16-2025 End: 09-16-2025 Patient encounter procedure 09/16/2025 9:40 AM EST Office Visit [facility] [place] [address] [place] [id number] Sher Jules MD [address] [place] [address] follow up 6 months [facility] [place] Comment on above: follow up 6 months Start: 09-15-2025 Hemoglobin A1c measurement [facility]1C [facility] Start: 09-11-2025 Annual PCP Team Chronic Disease Visit Annual PCP Team Chronic Disease Visit [facility] Start: 09-11-2025 Diabetes: Urine Albumin-Creatinine Ratio for Kidney Health Diabetes: Urine Albumin-Creatinine Ratio for Kidney Health [facility] Start: 09-11-2025 Diabetic foot examination Diabetic Foot Exam [facility] Start: 09-11-2025 Hemoglobin A1c measurement Diabetes: Hemoglobin A1C [facility] Start: 09-11-2025 Hepatitis B screening Urine Albumin:Creatinine Ratio [facility] Start: 09-11-2025 Hepatitis B surface antibody level LDL Cholesterol [facility] Start: 05-28-2025 End: 05-28-2025 Patient encounter procedure 05/28/2025 10:00 AM EDT Office Visit Podiatry [address] [place] [address] Gomez Schwab [address] [place] [address] 3 month follow up nail care Podiatry Comment on above: 3 month follow up nail care Start: 05-06-2025 Plain x-ray of hand Hand Min 3 Views [facility] Start: 05-06-2025 XR Hand GE 3 Views [facility] Start: 04-30-2025 [facility] Start: 04-29-2025 Simple rpr scalp/neck/ax/genit/trunk 7.6-12.5cm RPR S/N/AX/GEN/TRK7.6-12.5CM [facility] Start: 04-22-2025 End: 04-22-2025 Patient encounter procedure 04/22/2025 10:30 AM EDT Office Visit General Surgery [address] [place] [address] Elvie Monterroso, BOBBY.SLOT SUPERVISOR [address] [place] [address] 04-14 EGD & Colonoscopy follow up General Surgery Comment on above: 04-14 EGD & Colonoscopy follow up Start: 04-14-2025 End: 04-14-2025 Patient encounter procedure 04/14/2025 10:30 AM EDT Appointment Ambulatory Surgery [address] [place] [address] Nikos Rivera MD [address] [address] Cardiac clearance recieved Ambulatory Surgery Comment on above: Cardiac clearance recieved Start: 04-06-2025 End: 04-06-2025 Patient encounter procedure Vasculary [facility] Comment on above: Peripheral arterial disease (HCC) [I73.9 ] 1 year follow up Start: 03-27-2025 Glaucoma screening Dilated Retinal Exam [facility] Start: 03-18-2025 Screening for malignant neoplasm of colon Colorectal Cancer Screening [facility] Start: 03-16-2025 End: 03-16-2025 Patient encounter procedure 03/16/2025 10:00 AM EDT Office Visit Internal Medicine [place] [address] [place] [address] Barb Suggs, MUSEUM CURATOR.SLOT SUPERVISOR [address] [place] [address] wellness visit [facility] [place] Comment on above: wellness visit Start: 03-11-2025 Annual PCP Team Chronic Disease Visit Annual PCP Team Chronic Disease Visit [facility] Start: 03-11-2025 Anxiety Screening Anxiety Screening [facility] Start: 03-11-2025 BP Controlled (<130/80) BP Controlled (<130/80) [facility] Start: 03-11-2025 Depression Screening Depression Screening [facility] Start: 03-11-2025 Hemoglobin A1c measurement HbA1C [facility] mal Start: 03-01-2025 End: 05-31-2025 Basic metabolic 2000 panel - Serum or Plasma BASIC METABOLIC PANEL Lab Routine Well controlled type 2 diabetes mellitus with neurological manifestations (HCC) Expected: 03/01/2025, Expires: 05/31/2025 [facility] Comment on above: Expected: 03/01/2025, Expires: Start: 03-01-2025 End: 05-31-2025 CBC panel - Blood by Automated count COMPLETE BLOOD COUNT Lab Routine Anemia, unspecified type Expected: 03/01/2025, Expires: 05/31/2025 [facility] Work Phone: Comment on above: Expected: 03/01/2025, Expires: Start: 03-01-2025 End: 05-31-2025 Hemoglobin A1c in Blood HEMOGLOBIN A1C Lab Routine Well controlled type 2 diabetes mellitus with neurological manifestations (HCC) Expected: 03/01/2025, Expires: 05/31/2025 [facility] Comment on above: Expected: 03/01/2025, Expires: Start: 02-23-2025 End: 02-23-2025 Patient encounter procedure Podiatry Comment on above: 3 month follow up Start: 02-09-2025 BP Controlled (<130/80) BP Controlled (<130/80) [facility] Start: 02-06-2025 Annual PCP Team Chronic Disease Visit Annual PCP Team Chronic Disease Visit [facility] Start: 02-06-2025 BP Controlled (<130/80) BP Controlled (<130/80) [facility] Start: 01-26-2025 Annual PCP Team Chronic Disease Visit Annual PCP Team Chronic Disease Visit [facility] Start: 11-19-2024 End: 11-19-2024 Patient encounter procedure 11/19/2024 11:15 AM EST Office Visit Podiatry [address] [place] [address] Gomez Schwab [address] [address] Regular check up and nail trim Podiatry Comment on above: Regular check up and nail trim Start: 11-16-2024 End: 11-16-2024 Patient encounter procedure 11/16/2024 8:40 AM EST Office Visit Cardiology [address] [place] [phone] Bib Patterson MD [address], [address] [place] [address] 6 month follow up Cardiology Comment on above: 6 month follow up Start: 11-13-2024 End: 11-13-2024 Patient encounter procedure 11/13/2024 1:20 PM EST Office Visit Internal Medicine [place] [address] [place] [address] Sher Jules MD [address] [place] [address] Patient Outreach, follow-up - BP, 2 stents placed [facility] [place] Comment on above: Patient Outreach, follow-up - BP, 2 sten ts placed Start: 11-02-2024 End: 02-01-2025 Basic metabolic 2000 panel - Serum or Plasma BASIC METABOLIC PANEL Lab Routine Hyponatremia Expected: 11/02/2024, Expires: 02/01/2025 [facility] Comment on above: Expected: 11/02/2024, Expires: Start: 11-02-2024 End: 02-01-2025 CBC panel - Blood by Automated count COMPLETE BLOOD COUNT Lab Routine Anemia, unspecified type Expected: 11/02/2024, Expires: 02/01/2025 [facility] Work Phone: Comment on above: Expected: 11/02/2024, Expires: Start: 10-28-2024 Advance Directive Discussion Advance Directive Discussion [facility] Start: 10-07-2024 End: 09-30-2025 Basic metabolic 1998 panel - Serum or Plasma Basic metabolic panel Lab Routine Coronary artery disease involving hoh coronary artery of hoh heart without angina pectoris Primary hypertension Expected: 10/07/2024 (Approximate), Expires: 09/30/2025 [facility] Work Phone: Comment on above: Expected: 10/07/2024 (Approximate), Expi res: 09/30/2025 Start: 10-07-2024 End: 09-30-2025 CBC W Auto Differential panel - Blood CBC auto differential Lab Routine Coronary artery disease involving hoh coronary artery of hoh heart without angina pectoris Primary hypertension Expected: 10/07/2024 (Approximate), Expires: 09/30/2025 [facility] Comment on above: Expected: 10/07/2024 (Approximate), Expi res: 09/30/2025 Start: 10-02-2024 End: 10-02-2024 Patient encounter procedure Podiatry Comment on above: 3 month follow up nail care Start: 09-30-2024 End: 09-30-2024 Admission to same day surgery center 09/30/2024 11:00 AM EST - 09/30/2024 12:00 PM EST Surgery [facility] [address] [place] [id number] Sergei Collins MD [address] [place] [id number] Left heart cath / coronary angiography w grafts [facility] Comment on above: Left heart cath / coronary angiography w grafts Start: 09-30-2024 Subsequent hospital visit by physician [facility] Comment on above: Coronary artery disease involving hoh coronary artery of hoh heart without angina pectoris Start: 09-27-2024 End: 12-27-2024 Basic metabolic 2000 panel - Serum or Plasma BASIC METABOLIC PANEL Lab Routine Hyponatremia Hyperkalemia Expected: 09/27/2024, Expires: 12/27/2024 [facility] Comment on above: Expected: 09/27/2024, Expires: Start: 09-27-2024 End: 12-27-2024 CBC panel - Blood by Automated count COMPLETE BLOOD COUNT Lab Routine Anemia, unspecified type Expected: 09/27/2024, Expires: 12/27/2024 [facility] Work Phone: Comment on above: Expected: 09/27/2024, Expires: Start: 09-27-2024 End: 12-27-2024 Cobalamin (Vitamin B12) [Mass/volume] in Serum or Plasma VITAMIN B12 Lab Routine Anemia, unspecified type Expected: 09/27/2024, Expires: 12/27/2024 [facility] Comment on above: Expected: 09/27/2024, Expires: Start: 09-27-2024 End: 12-27-2024 Cortisol [Mass/volume] in Serum or Plasma CORTISOL, SERUM Lab Routine Hyperkalemia Expected: 09/27/2024, Expires: 12/27/2024 [facility] Comment on above: Expected: 09/27/2024, Expires: Start: 09-27-2024 End: 12-27-2024 Osmolality of Serum or Plasma OSMOLALITY Lab Routine Hyponatremia Expected: 09/27/2024, Expires: 12/27/2024 [facility] Comment on above: Expected: 09/27/2024, Expires: Start: 09-27-2024 End: 12-27-2024 Osmolality of Urine OSMOLALITY URINE Lab Routine Hyponatremia Expected: 09/27/2024, Expires: 12/27/2024 [facility] Comment on above: Expected: 09/27/2024, Expires: Start: 09-27-2024 End: 12-27-2024 PROTEIN ELECTROPHORESIS SERUM W/INTERP PROTEIN ELECTROPHORESIS SERUM W/INTERP Lab Routine Anemia, unspecified type Expected: 09/27/2024, Expires: 12/27/2024 [facility] Comment on above: Expected: 09/27/2024, Expires: Start: 09-27-2024 End: 12-27-2024 Sodium [Moles/volume] in Urine collected for unspecified duration SODIUM RANDOM URINE Lab Routine Hyponatremia Expected: 09/27/2024, Expires: 12/27/2024 [facility] Comment on above: Expected: 09/27/2024, Expires: Start: 09-16-2024 End: 09-16-2025 Basic metabolic 1998 panel - Serum or Plasma Basic metabolic panel Lab Routine Coronary artery disease involving hoh coronary artery of hoh heart without angina pectoris Expected: 09/16/2024 (Approximate), Expires: 09/16/2025 [facility] Work Phone: Comment on above: Expected: 09/16/2024 (Approximate), Expi res: 09/16/2025 Start: 09-16-2024 End: 09-16-2025 CBC panel - Blood by Automated count CBC Lab Routine Coronary artery disease involving hoh coronary artery of hoh heart without angina pectoris Expected: 09/16/2024 (Approximate), Expires: 09/16/2025 [facility] Comment on above: Expected: 09/16/2024 (Approximate), Expi res: 09/16/2025 Start: 09-11-2024 End: 12-11-2024 CBC panel - Blood by Automated count [facility] Work Phone: Comment on above: Expected: 09/11/2024, Expires: Start: 09-11-2024 End: 12-11-2024 Comprehensive metabolic 2000 panel - Serum or Plasma [facility] Comment on above: Expected: 09/11/2024, Expires: Start: 09-11-2024 End: 12-11-2024 Hemoglobin A1c in Blood [facility] Comment on above: Expected: 09/11/2024, Expires: Start: 09-11-2024 End: 12-11-2024 LIPID PANEL, NONFASTING [facility] Comment on above: Expected: 09/11/2024, Expires: Start: 09-11-2024 End: 12-11-2024 Microalbumin/Creatinine [Mass Ratio] in Urine [facility] Comment on above: Expected: 09/11/2024, Expires: Start: 09-11-2024 End: 09-11-2024 Patient encounter procedure 09/11/2024 11:00 AM EST Office Visit [facility] [place] [address] [facility] [place] [address] Sher Jules MD [address] [facility] [place] [address] 6 mo f/u [facility] [place] Comment on above: 6 mo f/u Start: 08-09-2024 Annual PCP Team Chronic Disease Visit Annual PCP Team Chronic Disease Visit [facility] Start: 08-06-2024 Diabetes: Estimated Glomerular Filtration Rate for Kidney Health Diabetes: Estimated Glomerular Filtration Rate for Kidney Health [facility] Start: 06-28-2024 Influenza [facility] Start: 06-26-2024 End: 06-26-2024 Patient encounter procedure 06/26/2024 1:00 PM EDT Office Visit Podiatry [address] [place] [address] Gomez Schwab [address] [place], [place] [id number] 3 month follow up nail care Podiatry Comment on above: 3 month follow up nail care Start: 06-01-2024 End: 06-01-2024 Patient encounter procedure 06/01/2024 10:00 AM EDT Office Visit Cardiology [address] [place] [phone] Bib Patterson MD [address], [address] [place], [place] [id number] 1 YEAR OFFICE VISIT Cardiology Comment on above: 1 YEAR OFFICE VISIT Start: 04-07-2024 End: 04-07-2024 Patient encounter procedure Vasculary Ramirez mario Comment on above: Peripheral arterial disease (HCC) [I73.9 ] [address] testing Start: 04-06-2024 End: 04-06-2024 Patient encounter procedure 04/06/2024 1:20 PM EDT Office Visit Cardiology [address] [place] [phone] Bib Patterson MD [address] [facility] [facility], [address] [place] [address] follow up NM stress test per Dr. Patterson Cardiology Comment on above: follow up NM stress test per Dr. Patterson Start: 03-24-2024 End: 03-24-2024 Patient encounter procedure 03/24/2024 10:30 AM EDT Office Visit General Surgery [address] [facility] [facility] [place] [place] [phone] Nikos Rivera MD [address] [phone] Special screening for malignant neoplasms, colon [Z12.11] General Surgery Comment on above: Special screening for malignant neoplasm s, colon [Z12.11] Start: 03-22-2024 ANNUAL PCP TEAM CHRONIC DISEASE VISIT ANNUAL PCP TEAM CHRONIC DISEASE VISIT [facility] Start: 03-22-2024 BP CONTROLLED (<130/80) BP CONTROLLED (<130/80) [facility] Start: 03-13-2024 End: 03-13-2024 Patient encounter procedure 03/13/2024 3:20 PM EDT Office Visit Podiatry [address] [place], [place] [phone] Gomez Schwab [address] [facility] [place] [address] 3 month follow up nail care Podiatry Comment on above: 3 month follow up nail care Start: 03-12-2024 Subsequent hospital visit by physician 03/12/2024 8:15 AM EDT Hospital Encounter Cardiology Lab [address] [place], [place] [id number] CORONARY ARTERIOSCLEROSIS Cardiology Lab Comment on above: CORONARY ARTERIOSCLEROSIS Start: 03-12-2024 End: 03-12-2024 Patient encounter procedure 03/12/2024 7:15 AM EDT Appointment Molecular Imaging [address] [place] [phone] CORONARY ARTERIOSCLEROSIS,NM CARDIAC PERF STRESS/PHARM, order in epic Molecular Imaging Comment on above: CORONARY ARTERIOSCLEROSIS,NM CARDIAC PER F STRESS/PHARM, order in epic Start: 03-11-2024 End: 03-11-2025 NM Heart Perfusion W stress and W radionuclide IV NM CARDIAC PERF STRESS/PHARM Radiology Routine 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) Expected: 03/11/2024, Expires: 03/11/2025 [facility] Work Phone: Comment on above: Expected: 03/11/2024, Expires: Start: 03-11-2024 End: 03-11-2024 Patient encounter procedure 03/11/2024 10:20 AM EDT Office Visit Internal Medicine [place] [address] [place], [place] [phone] Sher Jules MD [address] [place] [address] Medicare Wellness, pt needs colonoscopy [facility] [place] Comment on above: Medicare Wellness, pt needs colonoscopy Start: 02-19-2024 Patient referral to dietitian [facility] Start: 02-08-2024 End: 04-09-2024 ALBUMIN/CREAT RATIO RND UR ALBUMIN/CREAT RATIO RND UR Lab Routine Well controlled type 2 diabetes mellitus with neurological manifestations (HCC) Expected: 02/08/2024, Expires: 04/09/2024 [facility] Work Phone: Comment on above: Expected: 02/08/2024, Expires: Start: 02-08-2024 End: 04-09-2024 CBC panel - Blood by Automated count CBC Lab Routine Essential hypertension Expected: 02/08/2024, Expires: 04/09/2024 [facility] Work Phone: Comment on above: Expected: 02/08/2024, Expires: Start: 02-08-2024 End: 04-09-2024 Comprehensive metabolic 2000 panel - Serum or Plasma COMP METABOLIC PANEL Lab Routine Hyperlipidemia with target LDL less than 70 Expected: 02/08/2024, Expires: 04/09/2024 [facility] Work Phone: Comment on above: Expected: 02/08/2024, Expires: 4 Start: 02-08-2024 End: 04-09-2024 Hemoglobin A1c in Blood HGB A1C Lab Routine Well controlled type 2 diabetes mellitus with neurological manifestations (HCC) Expected: 02/08/2024, Expires: 04/09/2024 [facility] Work Phone: Comment on above: Expected: 02/08/2024, Expires: 4 Start: 02-08-2024 End: 04-09-2024 Lipid 1996 panel - Serum or Plasma LIPID PANEL BASIC Lab Routine Hyperlipidemia with target LDL less than 70 Expected: 02/08/2024, Expires: 04/09/2024 [facility] Work Phone: Comment on above: Expected: 02/08/2024, Expires: 4 Start: 02-07-2024 3 comp foot exam completed DIABETIC FOOT EXAM [facility] Start: 02-07-2024 ANNUAL PCP TEAM CHRONIC DISEASE VISIT ANNUAL PCP TEAM CHRONIC DISEASE VISIT [facility] Start: 02-07-2024 Diabetic foot examination Diabetic Foot Exam [facility] Start: 02-07-2024 Hepatitis B screening URINE ALBUMIN:CREATININE RATIO [facility] Start: 02-07-2024 Hepatitis B surface antibody level LDL CHOLESTEROL [facility] Start: 02-05-2024 Hemoglobin A1c measurement HbA1C [facility] Start: 02-05-2024 Hemoglobin A1c/Hemoglobin.total in Blood HbA1C [facility] Start: 01-30-2024 Patient referral [facility] Work Phone: Start: 01-30-2024 Patient discharge [facility] Start: 01-29-2024 Ambulation without limitation [facility] Start: 01-29-2024 Cardiac monitoring [facility] Start: 01-29-2024 Cardiac rehabilitation - phase 1 [facility] Start: 01-29-2024 Cardiac rehabilitation - phase 2 [facility] Start: 01-29-2024 Notification of physician [facility] Start: 01-29-2024 Patient discharge [facility] Start: 01-29-[address] [facility] Start: 01-29-2024 Vascular disease risk assessment [facility] Start: 01-29-2024 Vital signs measurements [facility] Start: 01-29-2024 End: 01-29-2024 [facility] Start: 01-28-2024 Following clinical pathway protocol [facility] Start: 01-28-2024 Measurement of occult blood in stool specimen using immunoassay [facility] Start: 01-28-2024 Application of elastic bandage [facility] Start: 01-28-2024 Assessment of risk of venous thromboembolism [facility] Start: 01-28-2024 Care regimes management [facility] Start: 01-28-2024 Continuous pulse oximetry [facility] Start: 01-28-2024 Elevation of head of bed [facility] Start: 01-28-2024 Incentive spirometry [facility] Start: 01-28-2024 Inhalation therapy procedure [facility] Start: 01-28-2024 Insertion of catheter into peripheral vein [facility] Start: 01-28-2024 Introduction of urinary catheter [facility] Start: 01-28-2024 Measuring intake and output [facility] Start: 01-28-2024 Notification of physician [facility] Start: 01-28-2024 Oxygen therapy [facility] Start: 01-28-2024 Patient referral to dietitian [facility] Start: 01-28-2024 Providing care according to standard [facility] Start: 01-28-2024 Provision of activity privileges [facility] Start: 01-28-2024 Referral to choke reamer [facility] Start: 01-28-2024 Referral to service [facility] Start: 01-28-2024 Vital signs measurements [facility] Start: 01-28-2024 [facility] Start: 01-28-2024 Chart related administrative procedure [facility] Start: 01-28-2024 Hospital admission, emergency, from emergency room, medical nature [facility] Start: 01-28-2024 Creatinine [Mass/volume] in Urine collected for unspecified duration [facility] Start: 01-28-2024 Electrocardiographic procedure [facility] Start: 01-28-2024 Measurement of occult blood in stool specimen using immunoassay [facility] Start: 01-28-2024 Osmolality of Urine [facility] Start: 01-28-2024 Sodium [Moles/volume] in Urine [facility] Start: 01-28-2024 Verification routine [facility] Start: 01-28-2024 Admission procedure [facility] Start: 01-28-2024 Catheterization of vein [facility] Start: 01-28-2024 Medication not administered [facility] Start: 01-28-2024 [facility] Start: 01-28-2024 [facility] Start: 12-02-2023 Colonoscopy COLONOSCOPY [facility] Start: 12-02-2023 COLORECTAL CANCER SCREENING COLORECTAL CANCER SCREENING [facility] Start: 12-02-2023 Screening for malignant neoplasm of colon [facility] Start: 10-28-2023 Advance Directive Discussion Advance Directive Discussion [facility] Start: 10-28-2023 Behavioral Health Screening Behavioral Health Screening [facility] Start: 10-28-2023 Depression Assessment Depression Assessment [facility] Start: 10-26-2023 Glaucoma screening Dilated Retinal Exam [facility] Start: 10-26-2023 Hepatitis C antibody, confirmatory test DILATED RETINAL EXAM [facility] Start: 10-01-2023 BP CONTROLLED (<130/80) BP CONTROLLED (<130/80) [facility] Start: 08-08-2023 End: 10-08-2023 Basic metabolic 2000 panel - Serum or Plasma BASIC METABOLIC PNL Lab Routine Well controlled type 2 diabetes mellitus with neurological manifestations (HCC) Expected: 08/08/2023, Expires: 10/08/2023 [facility] Work Phone: Comment on above: Expected: 08/08/2023, Expires: Start: 08-08-2023 End: 10-08-2023 Hemoglobin A1c in Blood HGB A1C Lab Routine Well controlled type 2 diabetes mellitus with neurological manifestations (HCC) Expected: 08/08/2023, Expires: 10/08/2023 [facility] Work Phone: Comment on above: Expected: 08/08/2023, Expires: 3 Start: 08-08-2023 Hemoglobin A1c/Hemoglobin.total in Blood HBA1C [facility] Start: 07-18-2023 Adult depression screening assessment DEPRESSION SCREENING [facility] Start: 07-18-2023 ANNUAL PCP TEAM CHRONIC DISEASE VISIT ANNUAL PCP TEAM CHRONIC DISEASE VISIT [facility] Start: 07-18-2023 BP CONTROLLED (<130/80) BP CONTROLLED (<130/80) [facility] Start: 07-18-2023 SHINGRIX VACCINE (3 of 3) SHINGRIX VACCINE (3 of 3) [facility] Comment on above: Postponed from 05/10/2018 (Declined at t his time) Start: 06-28-2023 Influenza vaccination [facility] Start: 06-11-2023 ANNUAL PCP TEAM CHRONIC DISEASE VISIT ANNUAL PCP TEAM CHRONIC DISEASE VISIT [facility] Start: 03-19-2023 Hepatitis B surface antibody level LDL CHOLESTEROL [facility] Start: 02-20-2023 ANNUAL PCP TEAM CHRONIC DISEASE VISIT ANNUAL PCP TEAM CHRONIC DISEASE VISIT [facility] Start: 02-20-2023 BP CONTROLLED (<130/80) BP CONTROLLED (<130/80) [facility] Start: 02-20-2023 Urine microalbumin profile DTAP,TDAP,TD (2 - Tdap) [facility] Comment on above: Postponed from 03/19/2018 (Declined at t his time) Start: 02-06-2023 End: 04-08-2023 ALBUMIN/CREAT RATIO RND UR [facility] Work Phone: Comment on above: Expected: 02/06/2023, Expires: 3 Start: 10-28-2022 ADVANCE DIRECTIVE DISCUSSION ADVANCE DIRECTIVE DISCUSSION [facility] Start: 10-28-2022 DEPRESSION ASSESSMENT DEPRESSION ASSESSMENT [facility] Start: 10-26-2022 Hepatitis C antibody, confirmatory test DILATED RETINAL EXAM [facility] Start: 09-19-2022 Hemoglobin A1c/Hemoglobin.total in Blood HBA1C [facility] Start: 07-18-2022 End: 09-17-2022 ALBUMIN/CREAT RATIO RND UR ALBUMIN/CREAT RATIO RND UR Lab Routine Well controlled type 2 diabetes mellitus with neurological manifestations (HCC) Expected: 07/18/2022, Expires: 09/17/2022 [facility] Work Phone: Comment on above: Expected: 07/18/2022, Expires: 2 Start: 06-30-2022 3 comp foot exam completed DIABETIC FOOT EXAM [facility] Start: 06-28-2022 Influenza vaccination INFLUENZA (#1) [facility] Start: 05-30-2022 Patient discharge [facility] Work Phone: Start: 05-30-2022 Assessment of risk of venous thromboembolism [facility] Work Phone: Start: 05-30-2022 Cardiac monitoring [facility] Work Phone: Start: 05-30-2022 Care regimes management [facility] Work Phone: Start: 05-30-2022 Catheterization of vein [facility] Work Phone: Start: 05-30-2022 Elevation of head of bed [facility] Work Phone: Start: 05-30-2022 Exercises [facility] Work Phone: Start: 05-30-2022 Implementation of planned interventions [facility] Work Phone: Start: 05-30-2022 Insertion of catheter into peripheral vein [facility] Work Phone: Start: 05-30-2022 Measuring intake and output [facility] Work Phone: Start: 05-30-2022 Notification of physician [facility] Work Phone: Start: 05-30-2022 Oxygen therapy [facility] Work Phone: Start: 05-30-2022 Patient referral to dietitian [facility] Work Phone: Start: 05-30-2022 Providing care according to standard [facility] Work Phone: Start: 05-30-2022 Referral to occupational therapist [facility] Work Phone: Start: 05-30-2022 Referral to service [facility] Work Phone: Start: 05-30-2022 Speech therapy assessment [facility] Work Phone: Start: 05-30-2022 Tobacco use cessation education [facility] Work Phone: Start: 05-30-2022 [facility] Work Phone: Start: 05-30-2022 Following clinical pathway protocol [facility] Work Phone: Start: 05-30-2022 Admission procedure [facility] Work Phone: Start: 05-29-2022 Oxygen therapy [facility] Work Phone: Start: 05-29-2022 [facility] Work Phone: Start: 05-23-2022 Hepatitis B screening URINE ALBUMIN:CREATININE RATIO [facility] Start: 03-15-2022 Hemoglobin A1c/Hemoglobin.total in Blood HBA1C [facility] Start: 02-23-2022 Adult depression screening assessment DEPRESSION SCREENING [facility] Start: 11-21-2021 Hepatitis B surface antibody level LDL CHOLESTEROL [facility] Start: 10-28-2021 DEPRESSION ASSESSMENT DEPRESSION ASSESSMENT [facility] Start: 05-10-2018 SHINGRIX VACCINE (3 of 3) SHINGRIX VACCINE (3 of 3) [facility] Start: 02-01-2016 FECAL OCCULT BLOOD FECAL OCCULT BLOOD [facility] Start: 02-01-2016 Screening for malignant neoplasm of colon Fecal Occult Blood [facility] Start: 2012 Hepatitis B Vaccine (1 of 3 - Risk 3-dose series) Hepatitis B Vaccine (1 of 3 - Risk 3-dose series) [facility] Start: 2012 RSV Vaccine (1 - 1-dose 60+ series) RSV Vaccine (1 - 1-dose 60+ series) [facility] Start: 01-26-1997 COLOGUARD (FIT-DNA) COLOGUARD (FIT-DNA) [facility] Start: 01-26-[address] COLONOGRAPHY [facility] Start: 01-26-1997 Screening for malignant neoplasm of colon [facility] Start: 01-26-1997 SIGMOIDOSCOPY SIGMOIDOSCOPY [facility] Start: 01-26-1970 Hepatitis C screening Hepatitis C Screening [facility] Start: 1964 Depression Screening Depression Screening [facility] Start: 01-26-1962 Diabetic foot examination Diabetes: Foot Exam [facility] Start: 01-26-1962 Glaucoma screening Diabetes: Retinopathy Screening [facility] Start: 01-26-1962 Preventive dental service Diabetes: Dental Exam [facility] Start: 1950 Lipid panel Lipid Panel [facility] Start: 1950 Medicare Annual Wellness (AWV) Medicare Annual Wellness (AWV) [facility] Start: 1950 Screening for malignant neoplasm of colon [facility] Bacteria identified in Wound by Culture ABSCESS AND WOUND CULTURE WITH GRAM STAIN Microbiology Routine Ingrowing toenail with infection 10/31/2023 11:44 AM EST [facility] Work Phone: CARDIAC REHAB II OUT PT ([place], [place]) CARDIAC REHAB II OUTPT ([place], [place]) BIC Routine 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) Ordered: 02/10/2024 [facility] Work Phone: Comment on above: Ordered: 02/10/2024 Comprehensive metabo lic 2000 panel - Serum or Plasma [facility] End: 02-14-2024 Cta abdl aorta&bi iliofem w/contrast&postp CTA ABD/PEL LOWER EXTREM W IVCON Radiology Routine Peripheral vascular disease (HCC) 1 Occurrences starting 01/15/2023 until 02/14/2024 [facility] Work Phone: Comment on above: 1 Occurrences starting 01/15/2023 until 02/14/2024 ECG 12 lead ECG 12 lead CV E CG Routine 09/30/2024 12:42 PM EST [facility] Work Phone: End: 09-05-2023 ECG COMPLETE ECG COMPLETE ECG Routine Coronary artery disease involving hoh coronary artery of hoh heart without angina pectoris 1 Occurrences starting 09/05/2022 until 09/05/2023 [facility] Work Phone: Comment on above: 1 Occurrences starting 09/05/2022 until 09/05/2023 End: 04-29-2024 ECG COMPLETE ECG COMPLETE ECG Routine Screening for ischemic heart disease 1 Occurrences starting 04/29/2023 until 04/29/2024 [facility] Work Phone: Comment on above: 1 Occurrences starting 04/29/2023 until 04/29/2024 End: 08-09-2024 ECG COMPLETE ECG COMPLETE ECG Routine Coronary artery disease involving hoh coronary artery of hoh heart without angina pectoris 1 Occurrences starting 08/09/2023 until 08/09/2024 [facility] Work Phone: Comment on above: 1 Occurrences starting 08/09/2023 until 08/09/2024 LEFT HEART CATH / CO RONARY ANGIOGRAPHY W GRAFTS LEFT HEART CATH / CORONARY ANGIOGRAPHY W GRAFTS Coronary artery disease involving hoh coronary artery of hoh heart without angina pectoris [facility] ITYZ Lipid 1996 panel - S silvia or Plasma [facility] Patient Education [facility] Work Phone: Patient referral [facility] Work Phone: End: 03-27-2023 PVR LEG NOHEMY VAS LAB PVR LEG NOHEMY [facility]AS LAB Vascular Lab Routine Peripheral arterial disease (HCC) 1 Occurrences starting 03/27/2022 until 03/27/2023 [facility] Work Phone: Comment on above: 1 Occurrences starting 03/27/2022 until 03/27/2023 Tissue Pathology bio psy report [facility] Work Phone: Comment on above: Release Upon Ordering for 1 Occurrences starting 04/14/2025, 1 completed End: 04-07-2025 US Lower extremity artery - bilateral PVR LEG NOHEMY [facility]AS [facility] Vascular Lab Routine Peripheral arterial disease (HCC) 1 Occurrences starting 04/07/2024 until 04/07/2025 [facility] Work Phone: Comment on above: 1 Occurrences starting 04/07/2024 until 04/07/2025 End: 04-06-2026 US Lower extremity artery - bilateral PVR LEG NOHEMY [facility]AS [facility] Vascular Lab Routine Peripheral arterial disease 1 Occurrences starting 04/06/2025 until 04/06/2026 [facility] Work Phone: Comment on above: 1 Occurrences starting 04/06/2025 until 04/06/2026 End: 02-25-2025 XR Wrist - bilateral PA and Lateral and Oblique XR WRIST GENERAL 3V PA/LAT/OBL BILATERAL Radiology Routine Pain in both wrists 1 Occurrences starting 2024 until 02/25/2025 [facility] Work Phone: Comment on above: 1 Occurrences starting 2024 until 02/25/2025 XR Wrist - bilateral PA and Lateral and Oblique XR WRIST GENERAL 3V PA/LAT/OBL BILATERAL Radiology Routine Pain in both wrists 2024 3:44 PM EDT [facility] Work Phone: [facility] Immunizations Immunization Date Immunization Notes Care Provider [facility] 04-30-2025 tetanus toxoid, redu hayley diphtheria toxoid, and acellular pertussis vaccine, adsorbed Dr. Sher Jules MD Work Phone: [facility] 07-29-2023 COVID-19 vaccine, ag e 12+ yr, season (PFIZER-BIONTECH) Sher Jules MD Work Phone: [facility] 07-29-2023 influenza (aIIV4) vaccine, age 65+ yr, quadrivalent, PF (FLUAD QUAD) Sher Jules MD Work Phone: [facility] 07-29-2023 influenza virus vaccine, unspecified formulation Barb Suggs APRN.CNP Work Phone: [facility] 08-04-2022 COVID-19 booster vaccine, age 12+ yr, bivalent (PFIZER-BIONTECH) Jules Dukes MD Work Phone: [facility] Work Phone: 08-04-2022 tetanus toxoid, redu hayley diphtheria toxoid, and acellular pertussis vaccine, adsorbed Jules Dukes MD Work Phone: [facility] Work Phone: 07-18-2022 influenza, high-dose , quadrivalent vaccine (FLUZONE HIGH DOSE QUADRIVALENT) Barb Leon APRN.CNP Work Phone: [facility] Work Phone: 07-18-2022 influenza virus vaccine, unspecified formulation Gmoez Mccabezaki Work Phone: [facility] 03-04-2022 COVID-19 original vaccine, full dose, monovalent (MODERNA) Sher Jules MD Work Phone: [facility] Work Phone: 08-21-2021 COVID-19 vaccine, booster dose (MODERNA) Sher Jules MD Work Phone: [facility] 07-14-2021 influenza, high-dose , quadrivalent vaccine (FLUZONE HIGH DOSE QUADRIVALENT) Sher Jules MD Work Phone: [facility] 05-28-2021 Covid (Moderna) [facility] Work Phone: 01-07-2021 COVID-19 vaccine, booster dose (MODERNA) Sher Jules MD Work Phone: [facility] 12-10-2020 COVID-19 vaccine, booster dose (MODERNA) Sher Jules MD Work Phone: [facility] 08-03-2020 influenza (aIIV4) vaccine, age 65+ yr, quadrivalent, PF (FLUAD QUAD) Sher Jules MD Work Phone: [facility] Work Phone: 08-06-2019 influenza, high dose seasonal, preservative-free Sher Jules MD Work Phone: [facility] Work Phone: 08-22-2018 influenza, high dose seasonal, preservative-free Sher Jules MD Work Phone: [facility] 03-15-2018 zoster vaccine recombinant Sher Jules MD Work Phone: [facility] Work Phone: 02-21-2018 pneumococcal polysaccharide vaccine, 23 valent Sher Jules MD Work Phone: [facility] Work Phone: 08-22-2017 influenza, high dose seasonal, preservative-free Sher Jules MD Work Phone: [facility] 02-20-2017 pneumococcal conjuga te vaccine, 13 valent Sher Jules MD Work Phone: [facility] 08-22-2016 influenza, injectabl e, quadrivalent, contains preservative Sher Jules MD Work Phone: [facility] 08-05-2015 influenza, injectabl e, quadrivalent, contains preservative Sher Jules MD Work Phone: [facility] 08-17-2013 zoster vaccine, live Sher Jules MD Work Phone: [facility] 07-03-2013 influenza virus vaccine, unspecified formulation Sher Jules MD Work Phone: [facility] 08-13-2011 influenza virus vaccine, unspecified formulation Sher Jules MD Work Phone: [facility] Work Phone: 08-01-2009 influenza virus vaccine, unspecified formulation Sher Jules MD Work Phone: [facility] Work Phone: 03-19-2008 diphtheria and tetan us toxoids, adsorbed for pediatric use Sher Jules MD Work Phone: [facility] Work Phone: 12-24-2006 pneumococcal polysaccharide vaccine, 23 valent Sher Jules MD Work Phone: [facility] Work Phone: Payers Date Payer Category Payer Unknown PLAN N 2024 Unknown [id number] 2024 Self-pay [id number] 2016 Medicare MEDICARE MEDICAR E A AND B [id number] 2016-Present [phone] [place] [address] Medicare [id number] 2016 Medicare [id number] 2016 Medicare supplementa l policy (as second payer) [id number] 2016 Private Health Insurance [employer] [place] [place] [id number] .[id number] 2016 Unknown MEDICO MEDICO 2N D [id number] 2016-Present [phone] [address] [address] [place]EEP [place] [id number] Indemnity [id number] 2016 Medicare [id number] 2016 Unknown [id number] 2005 Private Health Insurance [id number] Unknown [id number] 2.16.840.1.071922.3.579 .2.462 Unknown [id number] 2.16.840.1.914637.3.579 .2.462 Unknown [id number] 2.16.840.1.678147.3.579 .2.462 Unknown [id number] 2.16.840.1.708678.3.579 .2.462 Unknown [id number] 2.16.840.1.371450.3.579 .2.462 Unknown [id number] 2.16.840.1.824392.3.579 .2.462 Unknown [id number] 2.16.840.1.807869.3.579 .2.462 Unknown [id number] 2.16.840.1.149857.3.579 .2.462 Unknown [id number] 2.16.840.1.326018.3.579 .2.462 Unknown [id number] 2.16.840.1.167372.3.579 .2.462 Unknown [id number] 2.16.840.1.111346.3.579 .2.462 Unknown [id number] 2.16.840.1.633483.3.579 .2.462 Unknown [id number] 2.16.840.1.861293.3.579 .2.462 Unknown [id number] 2.16.840.1.833191.3.579 .2.462 Unknown [id number] 2.16.840.1.981404.3.579 .2.462 Unknown [id number] 2.16.840.1.140978.3.579 .2.462 Unknown [id number] 2.16.840.1.573195.3.579 .2.462 Unknown [id number] 2.16.840.1.249037.3.579 .2.462 Unknown [id number] 2.16.840.1.650910.3.579 .2.462 Unknown [id number] 2.16.840.1.193410.3.579 .2.462 Unknown [id number] 2.16.840.1.211282.3.579 .2.462 Unknown [id number] 2.16.840.1.148629.3.579 .2.462 Unknown [id number] 2.16.840.1.042700.3.579 .2.462 Unknown [id number] 2.16.840.1.937595.3.579 .2.462 Unknown [id number] 2.16.840.1.798132.3.579 .2.462 Unknown [id number] 2.16840.1.711613.3.579 .2.462 Unknown [id number] 2.16.840.1.481097.3.579 .2.462 Unknown [id number] 2.16.840.1.380954.3.579 .2.462 Unknown [id number] 2.16840.1.416954.3.579 .2.462 Unknown [id number] 2.16840.1.912508.3.579 .2.462 Social History Date Type Detail Facility Start: 10-17-2013 End: 04-29-2025 Tobacco smoking status NHIS Ex-smoker [facility] Start: 10-28-1968 End: 10-28-2002 History of tobacco use Current smoker [facility] Start: 10-28-1968 End: 10-28-2002 History of tobacco use Cigarette Smoker [facility] Start: 02-20-2022 End: 04-15-2025 Alcohol intake Current drinker of alcohol (finding) [facility] Start: 02-20-2022 End: 03-20-2023 Alcohol intake [facility] Start: 08-22-2020 End: 09-24-2022 History SDOH Alcohol Frequency 5 [facility] Start: 08-22-2020 End: 09-24-2022 History SDOH Alcohol Std Drinks 2 [facility] Start: 08-22-2020 End: 09-24-2022 History SDOH Alcohol Binge 4 [facility] Start: 02-20-2022 History SDOH Alcohol Comment 6 beers per day, sometimes less [facility] Start: 07-31-2020 End: 09-24-2022 History SDOH Social Connections Get Together 3 [facility] Start: 07-31-2020 End: 09-24-2022 History SDOH Social Connections Membership 1 [facility] Start: 01-21-2020 End: 09-24-2022 History SDOH Physical Activity DPW 0 [facility] Start: 01-21-2020 Education 12 [facility] Start: 1950 Sex Assigned At Male [facility] Start: 03-17-2022 End: 03-27-2022 Exposure to SARS-CoV-2 (event) Unable to assess [facility] Start: 04-22-2022 End: 10-01-2022 Exposure to SARS-CoV-2 (event) Not sure [facility] Start: 05-29-2022 End: 02-19-2024 Tobacco smoking status NHIS Unknown if ever smoked [facility] Start: 05-29-2022 Cigarettes [facility] Start: 10-17-2013 End: 04-06-2025 Tobacco use and exposure Smokeless tobacco non-user [facility] Work Phone: Start: 09-24-2022 End: 03-20-2023 Social connection and isolation panel [facility] Do you belong to any clubs or organizations such as sikhism groups, unions, fraternal or athletic groups, or school groups? Yes [facility] Are you now , , , , never or living with a partner? [facility] How often to you hav e a drink containing alcohol? 4 or more times a week [facility] How many standard dr inks containing alcohol do you have on a typical day? 3 or 4 [facility] How often do you hav e 6 or more drinks on 1 occasion? Weekly [facility] How hard is it for y ou to pay for the very basics like food, housing, medical care, and heating Not hard at all [facility] Do you feel stress - tense, restless, nervous, or anxious, or unable to sleep at night because your mind is troubled all the time - these days [OSQ] Not at all [facility] (I/We) worried [facility] (my/our) food would run out before (I/we) got money to buy more. Never true [facility] In the past 12 month s, was there a time when you were not able to pay the mortgage or rent on time? No [facility] Start: 08-11-2020 Gender identity Identifies as male gender (finding) [facility] Start: 08-11-2020 Sexual orientation Heterosexual (finding) [facility] How often do you hav e 6 or more drinks on 1 occasion? Never [facility] History of tobacco use Passive smoker [facility] Start: 09-16-2024 Alcohol Comment 30 a week [facility] Start: 1950 Sex assigned at Not on file [facility] Start: 09-15-2024 Sex Male (finding) [facility] How many standard dr inks containing alcohol do you have on a typical day? 5 or 6 [facility] How often do you hav e 6 or more drinks on 1 occasion? Daily or almost daily [facility] Medical Equipment Procedure Code Equipment Code Equipment Original Text Equipment Identifier Dates [place] Ptfe 1.2 Cm X 10 Cm - [id number] Start: 10-20-2013 Comment on above: Description: Bard PT FE [place] Patch Cv 2x9cm Peripatch - [id number] Start: 05-24-2016 [id number] Start: 02-15-2010 Comment on above: TEST BLOOD SUGARS ON CE DAILY Use as instructed Test blood sugar onc e daily. Drug-eluting coronary artery stent, non-bioabsorbable -polymer-coated ()[id number] FDA Start: 01-29-2024 Drug-eluting coronary artery stent, non-bioabsorbable -polymer-coated ()[id number] FDA Start: 01-29-2024 Stent Cor [place] 2.78x72re - [id number] Start: 09-30-2024 Stent Cor [place] 3.49p20lx - [id number] Start: 09-30-2024 Goals Date Patient Goal Desired Activity /State Personal health goal Functional Status Date Assessment Result Facility 01-30-2024 Functional status Ambulates;Up a d juan;Bathroom Privilege [facility] Work Phone: 05-30-2022 Functional status Ambulates [facility] Work Phone: 05-26-2016 Are you deaf, or do you have serious difficulty hearing No 05/26/2016 1:42 PM EDT Homer MadisonRn)(Hist), RN No [facility] 05-26-2016 Are you blind, or do you have serious difficulty seeing, even when wearing glasses No 05/26/2016 1:42 PM Homer SalazarRn)(Hist), RN No [facility] 05-26-2016 Do you have serious difficulty walking or climbing stairs No 05/26/2016 1:42 PM EDHomer KohlerRn)(Hist), RN No [facility] 05-26-2016 Do you have difficul ty dressing or bathing No 05/26/2016 1:42 PM Homer SalazarRn)(Hist), RN No [facility] 05-26-2016 Because of a physica l, mental, or emotional condition, do you have difficulty doing errands alone such as visiting a physician's office or shopping No 05/26/2016 1:42 PM Homer Salazar)(Hist), RN No [facility] Mental Status Date Assessment Result Facility 01-30-2024 Cognitive function Voice/Name [facility] Work Phone: 01-28-2024 Cognitive function Voice/Name [facility] Work Phone: 05-30-2022 Cognitive function Voice/Name [facility] Work Phone: 05-26-2016 Because of a physica l, mental, or emotional condition, do you have serious difficulty concentrating, remembering, or making decisions No 05/26/2016 1:42 PM EDHomer Kohler)(Hist), RN No [facility] Clinical Notes 08-22-2018 to 04-30-2025 Elvie Monterroso APRN.SLOT SUPERVISOR - 04/22/2025 10:30 AM EDTDischarge Instr - Nursing - Nuris Meek, RN - 04/14/2025 9:21 AM EDTDischarge Instr - Nursing - Nuris Meek RN - 04/14/2025 9:21 AM EDT Note Date & Type Note Facility 04-30-2025 Discharge summary [facility] 04-29-2025 Radiology Diagnostic study note [facility] Imaging Services [address] [place] [address] Brain/Head without Contrast MR#: [id number] Acct: [id number] Name: MARIE HUTSON Rep #: [id number] : 1950 M 75 From: Carin Sifuentes MD PCP: Dr. Sher Jules MD Status: R ER Study:Brain/Head without Contrast Date of Exa m: 04/29/25 Exam# [id number] Ordering Dr: Susy Wallace MD PROCEDURE: BRAIN/HEAD WITHOUT CONTRAST 04/29/2025 REASON FOR EXAM: CLOSED HEAD INJURY ON ANTITHROMBOTIC TECHNIQUE: BRAIN/HEAD WITHOUT CONTRAST Coronal and Sagittal reconstruction series were provided. One or more dose reduction techniques were used (e.g., Automated exposure control, adjustment of the mA and/or kV according to patient size, use of iterative reconstruction technique. RADIATION DOSE SUMMARY: CTDlvol: 45 mGy DLP: 847 mGycm COMPARISON: MRI 05/30/2022 FINDINGS: Extensive arterial calcifications. Mild atrophy. No acute abnormal brain densities. No intracranial hemorrhage. Hydrocephalus or midline shift. There is left anterolateral scalp laceration and hematoma. No skull fracture. Unremarkable orbits. CT/Brain/Head without Contrast IMPRESSION: No acute intracranial finding Reading Location: [place] [address] CC: Dr. Rohan Wallace MD; Dr. Sher Jules MD ~ Strapping Machine Tender: Signed [facility] 04-29-2025 Hospital Discharge instructions Additional Instructions 1. Keep wound clean and dry as much as possible for the next 2 to 3 days 2. Apply bacitracin ointment 2-3 times a day 3. If there is any concern for infection either see your doctor or return to the emergency room for reevaluation [facility] Work Phone: 04-22-2025 History of Present illness Narrative FOLLOW UP VISIT - ENDOSCOPY Marie Hutson 1950 [id number] REFERRING PHYSICIAN: Nikos Rivera [address] [facility] [address] Marie Hutson is a patient I am following for screen for colon cancer-hx of polyps & anemia. Dr. Rivera performed upper & lower endoscopy on 04/14/25. The patient was found to have EGD Impression: - Normal examined jejunum. - Duodenitis, characterized by congestion (edema),erosions and deep ulcerations. - Gastritis, characterized by adherent blood, erosions, erythema and friability. Biopsied. - Moderate reflux esophagitis with no bleeding. Biopsied. COLONOSCOPY Impression: - Two small (4-6 mm) polyps in the cecum, removed with a cold biopsy forceps. Resected and retrieved. - Diverticulosis in the sigmoid colon. - The examination was otherwise normal on direct and retroflexion views. Pathology demonstrated: FINAL DIAGNOSIS A. Stomach, antrum, biopsy: - Reactive gastropathy. - No morphologic evidence of Helicobacter pylori microorganisms. B. Esophagus, distal, biopsy: - Slightly hyperplastic squamous epithelium and cardia type mucosa, negative for intestinal metaplasia or dysplasia. C. Colon, cecum, polypectomy x 2: - Tubular adenoma. - Polypoid fragment of colonic mucosa, negative for dysplasia. The patient notes no complaints since the procedure. -Dr. Rivera started on omeprazole 40mg -notes his bowels are moving a little more frequently. VITALS: There were no vitals taken for this visit. General: patient is alert, cooperative, pleasant and in no acute distress On examination, the abdomen is benign. Assessment ASSESSMENT/PLAN: 1. Gastritis and duodenitis - ICD9: 535.50, ICD10: K29.90 (primary diagnosis) - Continue Omeprazole 40mg for 3 months 2. Gastroesophageal reflux disease with esophagitis without hemorrhage - ICD9: 530.81, 530.10, ICD10: K21.00 - Discussed lifestyle modifications including losing weight, limiting caffeine, no meals three hours before sleep, and head of bed elevation - Continue treatment with Prilosec 40 mg QD 3. Adenomatous polyp of colon, unspecified part of colon - ICD9: 211.3, ICD10: D12.6 The operative findings and pathology report were reviewed with the patient, and the patient has had the opportunity to ask questions and have questions answered. If the patient notes any problems or changes in bowel function, the patient should contact me immediately. Otherwise I recommend follow up endoscopy in 5 years. HM updated. Discussed treatment plan and patient voices understanding. Patient's questions answered appropriately. Medications and potential side effects were discussed and patient voices understanding. Return to the office as scheduled or as needed for worsening/no improvement. Elvie Monterroso APRN.SLOT SUPERVISOR documented in this encounter [facility] [place] 04-22-2025 Note HNO ID: [id number] Author: ELVIE MONTERROSO APRN.SLOT SUPERVISOR Service: ? Author Type: Nurse Practitioner Type: Progress Notes Filed: 04/22/2025 10:56 Note Text: FOLLOW UP VISIT - ENDOSCOPY Marie Hutson 1950 [id number] REFERRING PHYSICIAN: Nikos Rivera [address] [facility] [address] Marie Hutson is a patient I am following for screen for colon cancer-hx of polyps AND anemia. Dr. Rivera performed upper AND lower endoscopy on 04/14/25. The patient was found to have EGD Impression: - Normal examined jejunum. - Duodenitis, characterized by congestion (edema),erosions and deep ulcerations. - Gastritis, characterized by adherent blood, erosions, erythema and friability. Biopsied. - Moderate reflux esophagitis with no bleeding. Biopsied. COLONOSCOPY Impression: - Two small (4-6 mm) polyps in the cecum, removed with a cold biopsy forceps. Resected and retrieved. - Diverticulosis in the sigmoid colon. - The examination was otherwise normal on direct and retroflexion views. Pathology demonstrated: FINAL DIAGNOSIS A. Stomach, antrum, biopsy: - Reactive gastropathy. - No morphologic evidence of Helicobacter pylori microorganisms. B. Esophagus, distal, biopsy: - Slightly hyperplastic squamous epithelium and cardia type mucosa, negative for intestinal metaplasia or dysplasia. C. Colon, cecum, polypectomy x 2: - Tubular adenoma. - Polypoid fragment of colonic mucosa, negative for dysplasia. The patient notes no complaints since the procedure. -Dr. Rivera started on omeprazole 40mg -notes his bowels are moving a little more frequently. VITALS: There were no vitals taken for this visit. General: patient is alert, cooperative, pleasant and in no acute distress On examination, the abdomen is benign. Assessment ASSESSMENT/PLAN: 1. Gastritis and duodenitis - ICD9: 535.50, ICD10: K29.90 (primary diagnosis) - Continue Omeprazole 40mg for 3 months 2. Gastroesophageal reflux disease with esophagitis without hemorrhage - ICD9: 530.81, 530.10, ICD10: K21.00 - Discussed lifestyle modifications including losing weight, limiting caffeine, no meals three hours before sleep, and head of bed elevation - Continue treatment with Prilosec 40 mg QD 3. Adenomatous polyp of colon, unspecified part of colon - ICD9: 211.3, ICD10: D12.6 The operative findings and pathology report were reviewed with the patient, and the patient has had the opportunity to ask questions and have questions answered. If the patient notes any problems or changes in bowel function, the patient should contact me immediately. Otherwise I recommend follow up endoscopy in 5 years. HM updated. Discussed treatment plan and patient voices understanding. Patient's questions answered appropriately. Medications and potential side effects were discussed and patient voices understanding. Return to the office as scheduled or as needed for worsening/no improvement. Elvie Monterroso APRN.SLOT SUPERVISOR [facility] 04-14-2025 Note Formatting of this n ote might be different from the original. The patient received a copy of Colonoscopy and EGD discharge instructions that contain information for how to contact the physician who performed the procedure and when to seek medical care. [facility] 04-14-2025 Miscellaneous Notes The patient received a copy of Colonoscopy and EGD discharge instructions that contain information for how to contact the physician who performed the procedure and when to seek medical care. documented in this encounter [facility] 04-14-2025 Attending History and physical note UPDATED PROCEDURAL SEDATION HISTORY AND PHYSICAL EXAMINATION SERVICE DATE: 04/14/2025 SERVICE TIME: 8:21 AM PHYSICAL EXAM MUST BE COMPLETED ON ADMISSION PROCEDURE: Procedure Indications: The History and Physical (completed in the past 30 days) has been reviewed and the patient has been examined. The contents accurately reflect the patient's condition with the following additions or revisions since the H&P was completed. ASA Class: ASA Class: Patient with mild systemic disease Examination indicates no changes. AIRWAY: Mouth opening greater than 3 fingerbreadths: Yes Neck Full Range of Motion: Yes LUNGS: Lungs clear to auscultation CARDIAC: Regular rhythm,Regular rate Provisional Diagnosis/Treatment Plan: anemia - EGD and Colonoscopy Sedation Goal: Moderate This H&P can be found in the attached. SIGNATURE: Nikos Rivera MD PATIENT NAME: Marie Hutson DATE: April 14, 2025 TIME: 8:21 AM Source Note - Nikos Rivera MD - 04/14/2025 8:15 AM EDT HISTORY AND PHYSICAL Marie Hutson : 1950 REFERRING PHYSICIAN: Barb Suggs [address] [facility] [address] CHIEF COMPLAINT: Patient presents with: Consult: For colonoscopy. Denies symptoms HPI: Marie is a 75 year old male referred for endoscopy. Marie notes anemia. Last H&H 10.6 & 29.8 (03/15/25). Marie denies abdominal pain. Marie denies diarrhea. Marie denies constipation. Marie denies a change in bowel habits. Marie denies melena. Marie denies bright red blood per rectum. Marie denies hemorrhoids. Marie denies family history of colon issues. Marie denies heartburn. Marie denies dysphagia. Marie denies a history of ulcers/ peptic ulcer disease. Marie follows with [facility] for hx of CABG x 3 (2012), CAD with 2 stents in 09/2024. On plavix. Last OV 01/2025. He denies CP, SOB, dizziness, palpitations, syncope, edema, recent hospitalizations Other medical history is significant for T2DM and osteoarthritis. Marie has undergone prior endoscopy. Last colonoscopy was 11/[address] Rivera at [facility]. Sedation:Midazolam 5 mg IV, Fentanyl 100 micrograms IV Impression: - One 8 mm polyp in the cecum, removed with a hot snare. Resected and retrieved. - The examination was otherwise normal. - The distal rectum and anal verge are normal on retroflexion view. - Diverticulosis in the sigmoid colon. CONVERTED FINAL DIAGNOSIS Colon, cecum, polypectomy (A) - Tubular adenoma. DTP/dcr 12/03/2018 CURRENT MEDICATIONS Current Outpatient Medications Medication Sig amLODIPine (NORVASC) 10 mg tablet Take 1 tablet by mouth once daily. cloNIDine HCl (CATAPRES) 0.2 mg tablet Take 1 tablet by mouth two times a day. lisinopril (ZESTRIL) 40 mg tablet Take 1 tablet by mouth two times a day. metoprolol tartrate, short acting, (LOPRESSOR) 25 mg tablet Take 0.5 tablets by mouth every 12 hours. metFORMIN (GLUCOPHAGE) 500 mg tablet Take 2 tablets by mouth two times a day with meals. clopidogrel (PLAVIX) 75 mg tablet Take 1 tablet by mouth once daily. gabapentin (NEURONTIN) 300 mg capsule Take 1 capsule by mouth daily at bedtime for 180 days. Patient should start on December 26, 2024. hydrALAZINE (APRESOLINE) 50 mg tablet Take 1 tablet by mouth three times a day. atorvastatin (LIPITOR) 40 mg tablet Take 1 tablet by mouth daily at bedtime. For cholesterol. nitroglycerin sublingual (NITROQUICK) 0.3 mg SL tablet Dissolve 1 tablet under the tongue every 5 minutes as needed for chest pain. aspirin, enteric coated (ASPIRIN, ENTERIC COATED) 81 mg EC tablet Take 1 tablet by mouth once daily. therapeutic multivitamin tablet Take 1 tablet by mouth daily with breakfast. blood sugar diagnostic (ONE TOUCH ULTRA TEST) test strip Use as instructed blood sugar diagnostic (ONE TOUCH ULTRA TEST) test strip TEST BLOOD SUGARS ONCE DAILY lancets(ONE TOUCH ULTRASOFT LANCETS) Test blood sugar once daily. peg 3350-Electrolytes (GOLYTELY) 236-22.74-6.74 -5.86 gram suspension Take 4,000 mL by mouth one time only for 1 dose. Refer to printed prep instructions from your provider. No current facility-administered medications for this visit. ALLERGIES: Patient has no known allergies. PAST MEDICAL HISTORY PAST MEDICAL HISTORY Diagnosis Date Anemia, unspecified type Atherosclerosis of hoh arteries of the extremities with intermittent claudication 09/07/2010 BENIGN NEOPLASM LG BOWEL 07/29/2008 Tubular adenoma. 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 Coronary artery disease Dermatophytosis of nail 12/29/2007 Diabetic peripheral neuropathy (HCC) 05/17/2014 Diabetic polyneuropathy associated with type 2 diabetes mellitus (HCC) DVT of leg (deep venous thrombosis) (HCC) 11/16/2013 post-op CABG, rx with Xarelto Essential hypertension Hypertrophy of prostate without urinary obstruction and other lower urinary tract symptoms (LUTS) 12/29/2007 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/29/2007 Non-ST elevation myocardial infarction (NSTEMI) 10/17/2013 Non-STEMI (non-ST elevated myocardial infarction) (HCC) 01/30/2024 LISANDRO to distal RCA Nonspecific abnormal results of liver function study 04/29/2008 Obesity, unspecified 12/29/2007 Onychomycosis Other and unspecified hyperlipidemia PAD (peripheral artery disease) 08/05/2009 Personal history of other malignant neoplasm of skin 11/05/2010 skin cancer Postoperative anemia 10/25/2013 Transfused on 10/25 1 U PRBC. H&H 9.2/26.3. DC on diuretic taper for dilutional component and MVI with iron and repeat as outpt Primary osteoarthritis of left knee 02/21/2018 [facility]. Type II or unspecified type diabetes mellitus without mention of complication, not stated as uncontrolled 12/29/2007 Unspecified essential hypertension PAST SURGICAL HISTORY PAST SURGICAL HISTORY Procedure Laterality Date ANGIOPLASTY FEMORAL/POP 09/07/2010 right BALLN ANGIOPLASTY PERC,FEM-POP 11/17/2009 APLL WITH SILVERHAWK AND ANGIOPLASTY CC DRUG ELUTING STENT 1 VESSEL 01/29/2024 PTCA LISANDRO distal RCA CC DRUG ELUTING STENT ADDL VESSEL 09/30/2024 PCI, LISANDRO to 1) dislal Left main, 2) ramus intermedius. COLONOSCOPY FLX DX W/COLLJ SPEC WHEN PFRMD 07/2008 Colonoscopy COLONOSCOPY FLX DX W/COLLJ SPEC WHEN PFRMD 09/14/2013 Colonoscopy COLONOSCOPY FLX DX W/COLLJ SPEC WHEN PFRMD 12/02/2018 Colonoscopy CORONARY ARTERY BYP W/VEIN & ARTERY GRAFT 3 VEIN 10/20/2013 CABG, three grafts F ENDARTERECTOMY FEMORAL PROFUNDA Bilateral 05/24/2016 fem. endarterectomy, profundaplasty LEFT HEART CATH,PERCUTANEOUS 10/19/2013 Cardiac cath, L heart PRIM PRQ TRLUML MCHNL THRMBC N-COR N-ICRA 1ST 12/05/2009 left REVSC OPN/PRQ ILIAC ART W/STNT PLMT & ANGIOPLSTY Left 04/19/2016 with 9x29mm satish stenting SLCTV CATHJ EA 2ND+ ORD ABDL PEL/LXTR ART BRNCH 11/17/2009 LLE UNSPECIFIED ORAL SURGERY PROCEDURE, BY REPORT wisdom teeth removed FAMILY HISTORY FAMILY HISTORY Problem Relation Age of Onset Cancer Mother lymphoma, passed Heart Father 46 Stroke Father passed from this No Known Problems Sister No Known Problems Sister No Known Problems Brother GI Brother inflammatory bowel disease, crohn's Diabetes Brother Cancer Maternal Grandfather unsure of the type Heart Paternal Grandfather SOCIAL HISTORY Social History Tobacco Use Smoking status: Former Current packs/day: 0.00 Average packs/day: 1 pack/day for 34.0 years (34.0 ttl pk-yrs) Types: Cigarettes Start date: 10/28/1968 Quit date: 10/28/2002 Years since quittin.4 Passive exposure: Past Smokeless tobacco: Never Vaping Use Vaping status: Never Used Substance Use Topics Alcohol use: Yes Alcohol/week: 30.0 standard drinks of alcohol Types: 30 Cans of Beer (12oz) per week Comment: 6 beers per day, sometimes less Drug use: Yes Frequency: 2.0 times per week Comment: marijuana REVIEW OF SYMPTOMS: REVIEW OF SYSTEMS: General: The patient denies fatigue, denies weight loss, denies weight gain, denies feeling hot, and feelings of cold. Eyes: The patient denies glaucoma, + eye injury/surgery, + glasses or contacts. Ear/Nose/Throat: The patient denies allergies, denies hayfever, denies ear infections, and denies bloody noses. Cardiovascular: The patient denies chest pain, denies heart disease, + high blood pressure, denies high cholesterol, and + poor circulation. Respiratory: The patient denies tuberculosis, denies pneumonia, denies frequent cough, denies shortness of breath, and denies coughing up blood. Gastrointestinal: The patient denies difficulty swallowing, denies acid reflux, denies ulcers, denies jaundice/hepatitis, denies gallbladder problems, denies vomiting, denies black or tarry stools, denies hemorrhoids, denies bleeding from rectum, denies diverticulitis, denies constipation, denies diarrhea, denies loss of stool control, and denies hernias. Kidney/Bladder: The patient denies kidney stones, denies urine infections, and denies bloody urine. Skin: The patient + a history of skin cancer, denies bleeding/changing moles, and denies a history of skin rash. Neurologic: The patient denies a history of epilepsy/convulsions, denies headaches, denies head/spinal injuries, and denies stroke/TIA. Psychiatric: The patient denies psychiatric medications, denies depression, and denies voices. Endocrine: The patient denies thyroid disorders, + diabetes, and denies hormonal problems. Hematologic: The patient denies a history of bruising, denies bleeding, and denies anemia. Infections: The patient denies a history of measles and mumps, denies rheumatic fever, and denies sexually transmitted diseases. Musculoskeletal: The patient denies back pain/injury, denies back problems, denies sciatica, denies knee/foot trouble, + arthritis, or denies gout. PHYSICAL EXAMINATION: General: The patient is 75 year old, male well nourished, well hydrated in no acute distress. The patient is oriented to time, place, and person. VITALS: Blood pressure 128/62, pulse 62, resp. rate 14, weight 86.8 kg (191 lb 6.4 oz), SpO2 98%. Body mass index is 28.35 kg/m . HEENT: Normal cephalic, ataumatic, pupils are equally round, sclera are anicteric, mucous membranes are moist, oropharynx is clear. Neck has no masses, asymmetry or lymphadenopathy. Respiratory: Clear to auscultation. Normal respiratory excursion and pattern. Cardiac: Examination is regular rate and rhythm. Normal S1/S2 Abdominal exam: Soft, nontender, with no palpable masses. No hepatosplenomegaly. No palpable hernias. Extremities: no clubbing, cyanosis or edema. No adenopathy. LABORATORY VALUES: As Noted RADIOLOGIC STUDIES: As Noted Assessment IMPRESSION: screen for colon cancer, history of colon polyps, anemia PLAN: I have reviewed my findings with the surgeon. Will plan for upper and lower endoscopy. We discussed the risks and benefits of the planned endoscopy in terms understandable to the patient. I have informed the patient that complications can occur including failure to complete the endoscopy and perforation. Marie had the opportunity to ask questions concerning the planned endoscopy. Marie freely consents to surgery. Cardiac clearance sent to [facility]. Will keep patient on plavix & schedule with Dr. Rivera. I plan to use Golytely bowel preparation I have explained to the patient the difference between IV conscious sedation and MAC anesthesia - and I have offered either, according to the patient's wishes. I have explained that with IV conscious sedation there is no anesthesia provider available and therefore there is a limitation of the amount of IV medications that can be given and that the patient may wake up in the middle of the procedure and/or experience pain/discomfort during the procedure. Further discussion was done and the patient was given the opportunity to ask questions and all questions were answered. Marie chooses IV conscious sedation. Marie was counseled that if there are changes in his/her medical condition, to let the office know if surgery should proceed. If there are changes in patient's medical condition from time of this encounter to the day of the procedure that preclude anesthesia, patient may have procedure cancelled for patient's safety. Diagnoses: (Z86.0100) History of colonic polyps (primary encounter diagnosis) (D64.9) Anemia, unspecified type (Z12.11) Colon cancer screening Consultation requested by Chilo Suggs CNP for an opinion regarding anemia & colon cancer screening. My final recommendations will be communicated back to the requesting physician by way of shared Medical record or letter to requesting physician via US mail. Portions of this documentation were copied and pasted from previous office visit notes in order to provide a cohesive continuity of the history. The note has been reviewed and edited and updated as necessary. Elvie Monterroso APRN.SLOT SUPERVISOR [facility] 04-14-2025 History and physical note HISTORY AND PHYSICAL Marie Hutson : 1950 REFERRING PHYSICIAN: Barb Suggs [address] [facility] [address] CHIEF COMPLAINT: Patient presents with: Consult: For colonoscopy. Denies symptoms HPI: Marie is a 75 year old male referred for endoscopy. Marie notes anemia. Last H&H 10.6 & 29.8 (03/15/25). Marie denies abdominal pain. Marie denies diarrhea. Marie denies constipation. Marie denies a change in bowel habits. Marie denies melena. Marie denies bright red blood per rectum. Marie denies hemorrhoids. Marie denies family history of colon issues. Marie denies heartburn. Marie denies dysphagia. Marie denies a history of ulcers/ peptic ulcer disease. Marie follows with [facility] for hx of CABG x 3 (2012), CAD with 2 stents in 09/2024. On plavix. Last OV 01/2025. He denies CP, SOB, dizziness, palpitations, syncope, edema, recent hospitalizations Other medical history is significant for T2DM and osteoarthritis. Marie has undergone prior endoscopy. Last colonoscopy was 11/[address] Rivera at [facility]. Sedation:Midazolam 5 mg IV, Fentanyl 100 micrograms IV Impression: - One 8 mm polyp in the cecum, removed with a hot snare. Resected and retrieved. - The examination was otherwise normal. - The distal rectum and anal verge are normal on retroflexion view. - Diverticulosis in the sigmoid colon. CONVERTED FINAL DIAGNOSIS Colon, cecum, polypectomy (A) - Tubular adenoma. DTP/dcr 12/03/2018 CURRENT MEDICATIONS Current Outpatient Medications Medication Sig amLODIPine (NORVASC) 10 mg tablet Take 1 tablet by mouth once daily. cloNIDine HCl (CATAPRES) 0.2 mg tablet Take 1 tablet by mouth two times a day. lisinopril (ZESTRIL) 40 mg tablet Take 1 tablet by mouth two times a day. metoprolol tartrate, short acting, (LOPRESSOR) 25 mg tablet Take 0.5 tablets by mouth every 12 hours. metFORMIN (GLUCOPHAGE) 500 mg tablet Take 2 tablets by mouth two times a day with meals. clopidogrel (PLAVIX) 75 mg tablet Take 1 tablet by mouth once daily. gabapentin (NEURONTIN) 300 mg capsule Take 1 capsule by mouth daily at bedtime for 180 days. Patient should start on December 26, 2024. hydrALAZINE (APRESOLINE) 50 mg tablet Take 1 tablet by mouth three times a day. atorvastatin (LIPITOR) 40 mg tablet Take 1 tablet by mouth daily at bedtime. For cholesterol. nitroglycerin sublingual (NITROQUICK) 0.3 mg SL tablet Dissolve 1 tablet under the tongue every 5 minutes as needed for chest pain. aspirin, enteric coated (ASPIRIN, ENTERIC COATED) 81 mg EC tablet Take 1 tablet by mouth once daily. therapeutic multivitamin tablet Take 1 tablet by mouth daily with breakfast. blood sugar diagnostic (ONE TOUCH ULTRA TEST) test strip Use as instructed blood sugar diagnostic (ONE TOUCH ULTRA TEST) test strip TEST BLOOD SUGARS ONCE DAILY lancets(ONE TOUCH ULTRASOFT LANCETS) Test blood sugar once daily. peg 3350-Electrolytes (GOLYTELY) 236-22.74-6.74 -5.86 gram suspension Take 4,000 mL by mouth one time only for 1 dose. Refer to printed prep instructions from your provider. No current facility-administered medications for this visit. ALLERGIES: Patient has no known allergies. PAST MEDICAL HISTORY PAST MEDICAL HISTORY Diagnosis Date Anemia, unspecified type Atherosclerosis of hoh arteries of the extremities with intermittent claudication 09/07/2010 BENIGN NEOPLASM LG BOWEL 07/29/2008 Tubular adenoma. 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 Coronary artery disease Dermatophytosis of nail 12/29/2007 Diabetic peripheral neuropathy (HCC) 05/17/2014 Diabetic polyneuropathy associated with type 2 diabetes mellitus (HCC) DVT of leg (deep venous thrombosis) (HCC) 11/16/2013 post-op CABG, rx with Xarelto Essential hypertension Hypertrophy of prostate without urinary obstruction and other lower urinary tract symptoms (LUTS) 12/29/2007 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/29/2007 Non-ST elevation myocardial infarction (NSTEMI) 10/17/2013 Non-STEMI (non-ST elevated myocardial infarction) (HCC) 01/30/2024 LISANDRO to distal RCA Nonspecific abnormal results of liver function study 04/29/2008 Obesity, unspecified 12/29/2007 Onychomycosis Other and unspecified hyperlipidemia PAD (peripheral artery disease) 08/05/2009 Personal history of other malignant neoplasm of skin 11/05/2010 skin cancer Postoperative anemia 10/25/2013 Transfused on 10/25 1 U PRBC. H&H 9.2/26.3. DC on diuretic taper for dilutional component and MVI with iron and repeat as outpt Primary osteoarthritis of left knee 02/21/2018 [facility]. Type II or unspecified type diabetes mellitus without mention of complication, not stated as uncontrolled 12/29/2007 Unspecified essential hypertension PAST SURGICAL HISTORY PAST SURGICAL HISTORY Procedure Laterality Date ANGIOPLASTY FEMORAL/POP 09/07/2010 right BALLN ANGIOPLASTY PERC,FEM-POP 11/17/2009 APLL WITH SILVERHAWK AND ANGIOPLASTY CC DRUG ELUTING STENT 1 VESSEL 01/29/2024 PTCA LISANDRO distal RCA CC DRUG ELUTING STENT ADDL VESSEL 09/30/2024 PCI, LISANDRO to 1) dislal Left main, 2) ramus intermedius. COLONOSCOPY FLX DX W/COLLJ SPEC WHEN PFRMD 07/2008 Colonoscopy COLONOSCOPY FLX DX W/COLLJ SPEC WHEN PFRMD 09/14/2013 Colonoscopy COLONOSCOPY FLX DX W/COLLJ SPEC WHEN PFRMD 12/02/2018 Colonoscopy CORONARY ARTERY BYP W/VEIN & ARTERY GRAFT 3 VEIN 10/20/2013 CABG, three grafts F ENDARTERECTOMY FEMORAL PROFUNDA Bilateral 05/24/2016 fem. endarterectomy, profundaplasty LEFT HEART CATH,PERCUTANEOUS 10/19/2013 Cardiac cath, L heart PRIM PRQ TRLUML MCHNL THRMBC N-COR N-ICRA 1ST 12/05/2009 left REVSC OPN/PRQ ILIAC ART W/STNT PLMT & ANGIOPLSTY Left 04/19/2016 with 9x29mm satish stenting SLCTV CATHJ EA 2ND+ ORD ABDL PEL/LXTR ART BRNCH 11/17/2009 LLE UNSPECIFIED ORAL SURGERY PROCEDURE, BY REPORT wisdom teeth removed FAMILY HISTORY FAMILY HISTORY Problem Relation Age of Onset Cancer Mother lymphoma, passed Heart Father 46 Stroke Father passed from this No Known Problems Sister No Known Problems Sister No Known Problems Brother GI Brother inflammatory bowel disease, crohn's Diabetes Brother Cancer Maternal Grandfather unsure of the type Heart Paternal Grandfather SOCIAL HISTORY Social History Tobacco Use Smoking status: Former Current packs/day: 0.00 Average packs/day: 1 pack/day for 34.0 years (34.0 ttl pk-yrs) Types: Cigarettes Start date: 10/28/1968 Quit date: 10/28/2002 Years since quittin.4 Passive exposure: Past Smokeless tobacco: Never Vaping Use Vaping status: Never Used Substance Use Topics Alcohol use: Yes Alcohol/week: 30.0 standard drinks of alcohol Types: 30 Cans of Beer (12oz) per week Comment: 6 beers per day, sometimes less Drug use: Yes Frequency: 2.0 times per week Comment: marijuana REVIEW OF SYMPTOMS: REVIEW OF SYSTEMS: General: The patient denies fatigue, denies weight loss, denies weight gain, denies feeling hot, and feelings of cold. Eyes: The patient denies glaucoma, + eye injury/surgery, + glasses or contacts. Ear/Nose/Throat: The patient denies allergies, denies hayfever, denies ear infections, and denies bloody noses. Cardiovascular: The patient denies chest pain, denies heart disease, + high blood pressure, denies high cholesterol, and + poor circulation. Respiratory: The patient denies tuberculosis, denies pneumonia, denies frequent cough, denies shortness of breath, and denies coughing up blood. Gastrointestinal: The patient denies difficulty swallowing, denies acid reflux, denies ulcers, denies jaundice/hepatitis, denies gallbladder problems, denies vomiting, denies black or tarry stools, denies hemorrhoids, denies bleeding from rectum, denies diverticulitis, denies constipation, denies diarrhea, denies loss of stool control, and denies hernias. Kidney/Bladder: The patient denies kidney stones, denies urine infections, and denies bloody urine. Skin: The patient + a history of skin cancer, denies bleeding/changing moles, and denies a history of skin rash. Neurologic: The patient denies a history of epilepsy/convulsions, denies headaches, denies head/spinal injuries, and denies stroke/TIA. Psychiatric: The patient denies psychiatric medications, denies depression, and denies voices. Endocrine: The patient denies thyroid disorders, + diabetes, and denies hormonal problems. Hematologic: The patient denies a history of bruising, denies bleeding, and denies anemia. Infections: The patient denies a history of measles and mumps, denies rheumatic fever, and denies sexually transmitted diseases. Musculoskeletal: The patient denies back pain/injury, denies back problems, denies sciatica, denies knee/foot trouble, + arthritis, or denies gout. PHYSICAL EXAMINATION: General: The patient is 75 year old, male well nourished, well hydrated in no acute distress. The patient is oriented to time, place, and person. VITALS: Blood pressure 128/62, pulse 62, resp. rate 14, weight 86.8 kg (191 lb 6.4 oz), SpO2 98%. Body mass index is 28.35 kg/m . HEENT: Normal cephalic, ataumatic, pupils are equally round, sclera are anicteric, mucous membranes are moist, oropharynx is clear. Neck has no masses, asymmetry or lymphadenopathy. Respiratory: Clear to auscultation. Normal respiratory excursion and pattern. Cardiac: Examination is regular rate and rhythm. Normal S1/S2 Abdominal exam: Soft, nontender, with no palpable masses. No hepatosplenomegaly. No palpable hernias. Extremities: no clubbing, cyanosis or edema. No adenopathy. LABORATORY VALUES: As Noted RADIOLOGIC STUDIES: As Noted Assessment IMPRESSION: screen for colon cancer, history of colon polyps, anemia PLAN: I have reviewed my findings with the surgeon. Will plan for upper and lower endoscopy. We discussed the risks and benefits of the planned endoscopy in terms understandable to the patient. I have informed the patient that complications can occur including failure to complete the endoscopy and perforation. Marie had the opportunity to ask questions concerning the planned endoscopy. Marie freely consents to surgery. Cardiac clearance sent to [facility]. Will keep patient on plavix & schedule with Dr. Rivera. I plan to use Golytely bowel preparation I have explained to the patient the difference between IV conscious sedation and MAC anesthesia - and I have offered either, according to the patient's wishes. I have explained that with IV conscious sedation there is no anesthesia provider available and therefore there is a limitation of the amount of IV medications that can be given and that the patient may wake up in the middle of the procedure and/or experience pain/discomfort during the procedure. Further discussion was done and the patient was given the opportunity to ask questions and all questions were answered. Marie chooses IV conscious sedation. Marie was counseled that if there are changes in his/her medical condition, to let the office know if surgery should proceed. If there are changes in patient's medical condition from time of this encounter to the day of the procedure that preclude anesthesia, patient may have procedure cancelled for patient's safety. Diagnoses: (Z86.0100) History of colonic polyps (primary encounter diagnosis) (D64.9) Anemia, unspecified type (Z12.11) Colon cancer screening Consultation requested by Chilo Suggs CNP for an opinion regarding anemia & colon cancer screening. My final recommendations will be communicated back to the requesting physician by way of shared Medical record or letter to requesting physician via [place] mail. Portions of this documentation were copied and pasted from previous office visit notes in order to provide a cohesive continuity of the history. The note has been reviewed and edited and updated as necessary. Elvie Monterroso APRN.SLOT SUPER[employer]OR [facility] [place] 04-14-2025 History and physical note UPDATED PROCEDURAL SEDATION HISTORY AND PHYSICAL EXAMINATION SERVICE DATE: 04/14/2025 SERVICE TIME: 8:21 AM PHYSICAL EXAM MUST BE COMPLETED ON ADMISSION PROCEDURE: Procedure Indications: The History and Physical (completed in the past 30 days) has been reviewed and the patient has been examined. The contents accurately reflect the patient's condition with the following additions or revisions since the H&P was completed. ASA Class: ASA Class: Patient with mild systemic disease Examination indicates no changes. AIRWAY: Mouth opening greater than 3 fingerbreadths: Yes Neck Full Range of Motion: Yes LUNGS: Lungs clear to auscultation CARDIAC: Regular rhythm,Regular rate Provisional Diagnosis/Treatment Plan: anemia - EGD and Colonoscopy Sedation Goal: Moderate This H&P can be found in the attached. SIGNATURE: Nikos Rivera MD PATIENT NAME: Marie Hutson DATE: April 14, 2025 TIME: 8:21 AM Source Note - Nikos Rivera MD - 04/14/2025 8:15 AM EDT HISTORY AND PHYSICAL Marie Hutson : 1950 REFERRING PHYSICIAN: Barb Suggs [address] [facility] [address] CHIEF COMPLAINT: Patient presents with: Consult: For colonoscopy. Denies symptoms HPI: Marie is a 75 year old male referred for endoscopy. Marie notes anemia. Last H&H 10.6 & 29.8 (03/15/25). Marie denies abdominal pain. Marie denies diarrhea. Marie denies constipation. Marie denies a change in bowel habits. Marie denies melena. Marie denies bright red blood per rectum. Marie denies hemorrhoids. Marie denies family history of colon issues. Marie denies heartburn. Marie denies dysphagia. Marie denies a history of ulcers/ peptic ulcer disease. Marie follows with [facility] for hx of CABG x 3 (2012), CAD with 2 stents in 09/2024. On plavix. Last OV 01/2025. He denies CP, SOB, dizziness, palpitations, syncope, edema, recent hospitalizations Other medical history is significant for T2DM and osteoarthritis. Marie has undergone prior endoscopy. Last colonoscopy was 11/[address] Rivera at [facility]. Sedation:Midazolam 5 mg IV, Fentanyl 100 micrograms IV Impression: - One 8 mm polyp in the cecum, removed with a hot snare. Resected and retrieved. - The examination was otherwise normal. - The distal rectum and anal verge are normal on retroflexion view. - Diverticulosis in the sigmoid colon. CONVERTED FINAL DIAGNOSIS Colon, cecum, polypectomy (A) - Tubular adenoma. DTP/dcr 12/03/2018 CURRENT MEDICATIONS Current Outpatient Medications Medication Sig amLODIPine (NORVASC) 10 mg tablet Take 1 tablet by mouth once daily. cloNIDine HCl (CATAPRES) 0.2 mg tablet Take 1 tablet by mouth two times a day. lisinopril (ZESTRIL) 40 mg tablet Take 1 tablet by mouth two times a day. metoprolol tartrate, short acting, (LOPRESSOR) 25 mg tablet Take 0.5 tablets by mouth every 12 hours. metFORMIN (GLUCOPHAGE) 500 mg tablet Take 2 tablets by mouth two times a day with meals. clopidogrel (PLAVIX) 75 mg tablet Take 1 tablet by mouth once daily. gabapentin (NEURONTIN) 300 mg capsule Take 1 capsule by mouth daily at bedtime for 180 days. Patient should start on December 26, 2024. hydrALAZINE (APRESOLINE) 50 mg tablet Take 1 tablet by mouth three times a day. atorvastatin (LIPITOR) 40 mg tablet Take 1 tablet by mouth daily at bedtime. For cholesterol. nitroglycerin sublingual (NITROQUICK) 0.3 mg SL tablet Dissolve 1 tablet under the tongue every 5 minutes as needed for chest pain. aspirin, enteric coated (ASPIRIN, ENTERIC COATED) 81 mg EC tablet Take 1 tablet by mouth once daily. therapeutic multivitamin tablet Take 1 tablet by mouth daily with breakfast. blood sugar diagnostic (ONE TOUCH ULTRA TEST) test strip Use as instructed blood sugar diagnostic (ONE TOUCH ULTRA TEST) test strip TEST BLOOD SUGARS ONCE DAILY lancets(ONE TOUCH ULTRASOFT LANCETS) Test blood sugar once daily. peg 3350-Electrolytes (GOLYTELY) 236-22.74-6.74 -5.86 gram suspension Take 4,000 mL by mouth one time only for 1 dose. Refer to printed prep instructions from your provider. No current facility-administered medications for this visit. ALLERGIES: Patient has no known allergies. PAST MEDICAL HISTORY PAST MEDICAL HISTORY Diagnosis Date Anemia, unspecified type Atherosclerosis of hoh arteries of the extremities with intermittent claudication 09/07/2010 BENIGN NEOPLASM LG BOWEL 07/29/2008 Tubular adenoma. 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 Coronary artery disease Dermatophytosis of nail 12/29/2007 Diabetic peripheral neuropathy (HCC) 05/17/2014 Diabetic polyneuropathy associated with type 2 diabetes mellitus (HCC) DVT of leg (deep venous thrombosis) (HCC) 11/16/2013 post-op CABG, rx with Xarelto Essential hypertension Hypertrophy of prostate without urinary obstruction and other lower urinary tract symptoms (LUTS) 12/29/2007 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/29/2007 Non-ST elevation myocardial infarction (NSTEMI) 10/17/2013 Non-STEMI (non-ST elevated myocardial infarction) (HCC) 01/30/2024 LISANDRO to distal RCA Nonspecific abnormal results of liver function study 04/29/2008 Obesity, unspecified 12/29/2007 Onychomycosis Other and unspecified hyperlipidemia PAD (peripheral artery disease) 08/05/2009 Personal history of other malignant neoplasm of skin 11/05/2010 skin cancer Postoperative anemia 10/25/2013 Transfused on 10/25 1 U PRBC. H&H 9.2/26.3. DC on diuretic taper for dilutional component and MVI with iron and repeat as outpt Primary osteoarthritis of left knee 02/21/2018 [facility]. Type II or unspecified type diabetes mellitus without mention of complication, not stated as uncontrolled 12/29/2007 Unspecified essential hypertension PAST SURGICAL HISTORY PAST SURGICAL HISTORY Procedure Laterality Date ANGIOPLASTY FEMORAL/POP 09/07/2010 right BALLN ANGIOPLASTY PERC,FEM-POP 11/17/2009 APLL WITH SILVERHAWK AND ANGIOPLASTY CC DRUG ELUTING STENT 1 VESSEL 01/29/2024 PTCA LISANDRO distal RCA CC DRUG ELUTING STENT ADDL VESSEL 09/30/2024 PCI, LISANDRO to 1) dislal Left main, 2) ramus intermedius. COLONOSCOPY FLX DX W/COLLJ SPEC WHEN PFRMD 07/2008 Colonoscopy COLONOSCOPY FLX DX W/COLLJ SPEC WHEN PFRMD 09/14/2013 Colonoscopy COLONOSCOPY FLX DX W/COLLJ SPEC WHEN PFRMD 12/02/2018 Colonoscopy CORONARY ARTERY BYP W/VEIN & ARTERY GRAFT 3 VEIN 10/20/2013 CABG, three grafts F ENDARTERECTOMY FEMORAL PROFUNDA Bilateral 05/24/2016 fem. endarterectomy, profundaplasty LEFT HEART CATH,PERCUTANEOUS 10/19/2013 Cardiac cath, L heart PRIM PRQ TRLUML MCHNL THRMBC N-COR N-ICRA 1ST 12/05/2009 left REVSC OPN/PRQ ILIAC ART W/STNT PLMT & ANGIOPLSTY Left 04/19/2016 with 9x29mm satish stenting SLCTV CATHJ EA 2ND+ ORD ABDL PEL/LXTR ART BRNCH 11/17/2009 LLE UNSPECIFIED ORAL SURGERY PROCEDURE, BY REPORT wisdom teeth removed FAMILY HISTORY FAMILY HISTORY Problem Relation Age of Onset Cancer Mother lymphoma, passed Heart Father 46 Stroke Father passed from this No Known Problems Sister No Known Problems Sister No Known Problems Brother GI Brother inflammatory bowel disease, crohn's Diabetes Brother Cancer Maternal Grandfather unsure of the type Heart Paternal Grandfather SOCIAL HISTORY Social History Tobacco Use Smoking status: Former Current packs/day: 0.00 Average packs/day: 1 pack/day for 34.0 years (34.0 ttl pk-yrs) Types: Cigarettes Start date: 10/28/1968 Quit date: 10/28/2002 Years since quittin.4 Passive exposure: Past Smokeless tobacco: Never Vaping Use Vaping status: Never Used Substance Use Topics Alcohol use: Yes Alcohol/week: 30.0 standard drinks of alcohol Types: 30 Cans of Beer (12oz) per week Comment: 6 beers per day, sometimes less Drug use: Yes Frequency: 2.0 times per week Comment: marijuana REVIEW OF SYMPTOMS: REVIEW OF SYSTEMS: General: The patient denies fatigue, denies weight loss, denies weight gain, denies feeling hot, and feelings of cold. Eyes: The patient denies glaucoma, + eye injury/surgery, + glasses or contacts. Ear/Nose/Throat: The patient denies allergies, denies hayfever, denies ear infections, and denies bloody noses. Cardiovascular: The patient denies chest pain, denies heart disease, + high blood pressure, denies high cholesterol, and + poor circulation. Respiratory: The patient denies tuberculosis, denies pneumonia, denies frequent cough, denies shortness of breath, and denies coughing up blood. Gastrointestinal: The patient denies difficulty swallowing, denies acid reflux, denies ulcers, denies jaundice/hepatitis, denies gallbladder problems, denies vomiting, denies black or tarry stools, denies hemorrhoids, denies bleeding from rectum, denies diverticulitis, denies constipation, denies diarrhea, denies loss of stool control, and denies hernias. Kidney/Bladder: The patient denies kidney stones, denies urine infections, and denies bloody urine. Skin: The patient + a history of skin cancer, denies bleeding/changing moles, and denies a history of skin rash. Neurologic: The patient denies a history of epilepsy/convulsions, denies headaches, denies head/spinal injuries, and denies stroke/TIA. Psychiatric: The patient denies psychiatric medications, denies depression, and denies voices. Endocrine: The patient denies thyroid disorders, + diabetes, and denies hormonal problems. Hematologic: The patient denies a history of bruising, denies bleeding, and denies anemia. Infections: The patient denies a history of measles and mumps, denies rheumatic fever, and denies sexually transmitted diseases. Musculoskeletal: The patient denies back pain/injury, denies back problems, denies sciatica, denies knee/foot trouble, + arthritis, or denies gout. PHYSICAL EXAMINATION: General: The patient is 75 year old, male well nourished, well hydrated in no acute distress. The patient is oriented to time, place, and person. VITALS: Blood pressure 128/62, pulse 62, resp. rate 14, weight 86.8 kg (191 lb 6.4 oz), SpO2 98%. Body mass index is 28.35 kg/m . HEENT: Normal cephalic, ataumatic, pupils are equally round, sclera are anicteric, mucous membranes are moist, oropharynx is clear. Neck has no masses, asymmetry or lymphadenopathy. Respiratory: Clear to auscultation. Normal respiratory excursion and pattern. Cardiac: Examination is regular rate and rhythm. Normal S1/S2 Abdominal exam: Soft, nontender, with no palpable masses. No hepatosplenomegaly. No palpable hernias. Extremities: no clubbing, cyanosis or edema. No adenopathy. LABORATORY VALUES: As Noted RADIOLOGIC STUDIES: As Noted Assessment IMPRESSION: screen for colon cancer, history of colon polyps, anemia PLAN: I have reviewed my findings with the surgeon. Will plan for upper and lower endoscopy. We discussed the risks and benefits of the planned endoscopy in terms understandable to the patient. I have informed the patient that complications can occur including failure to complete the endoscopy and perforation. Marie had the opportunity to ask questions concerning the planned endoscopy. Marie freely consents to surgery. Cardiac clearance sent to [facility]. Will keep patient on plavix & schedule with Dr. Rivera. I plan to use Golytely bowel preparation I have explained to the patient the difference between IV conscious sedation and MAC anesthesia - and I have offered either, according to the patient's wishes. I have explained that with IV conscious sedation there is no anesthesia provider available and therefore there is a limitation of the amount of IV medications that can be given and that the patient may wake up in the middle of the procedure and/or experience pain/discomfort during the procedure. Further discussion was done and the patient was given the opportunity to ask questions and all questions were answered. Marie chooses IV conscious sedation. Marie was counseled that if there are changes in his/her medical condition, to let the office know if surgery should proceed. If there are changes in patient's medical condition from time of this encounter to the day of the procedure that preclude anesthesia, patient may have procedure cancelled for patient's safety. Diagnoses: (Z86.0100) History of colonic polyps (primary encounter diagnosis) (D64.9) Anemia, unspecified type (Z12.11) Colon cancer screening Consultation requested by Chilo Suggs CNP for an opinion regarding anemia & colon cancer screening. My final recommendations will be communicated back to the requesting physician by way of shared Medical record or letter to requesting physician via [place] mail. Portions of this documentation were copied and pasted from previous office visit notes in order to provide a cohesive continuity of the history. The note has been reviewed and edited and updated as necessary. Elvie Monterroso APRN.CNP HISTORY AND PHYSICAL Marie Hutson : 1950 REFERRING PHYSICIAN: Barb Suggs [address] [facility] [address] CHIEF COMPLAINT: Patient presents with: Consult: For colonoscopy. Denies symptoms HPI: Marie is a 75 year old male referred for endoscopy. Marie notes anemia. Last H&H 10.6 & 29.8 (03/15/25). Marie denies abdominal pain. Marie denies diarrhea. Marie denies constipation. Marie denies a change in bowel habits. Marie denies melena. Marie denies bright red blood per rectum. Marie denies hemorrhoids. Marie denies family history of colon issues. Marie denies heartburn. Marie denies dysphagia. Marie denies a history of ulcers/ peptic ulcer disease. Marie follows with [facility] for hx of CABG x 3 (2012), CAD with 2 stents in 09/2024. On plavix. Last OV 01/2025. He denies CP, SOB, dizziness, palpitations, syncope, edema, recent hospitalizations Other medical history is significant for T2DM and osteoarthritis. Marie has undergone prior endoscopy. Last colonoscopy was 11/[address] Rivera at [facility]. Sedation:Midazolam 5 mg IV, Fentanyl 100 micrograms IV Impression: - One 8 mm polyp in the cecum, removed with a hot snare. Resected and retrieved. - The examination was otherwise normal. - The distal rectum and anal verge are normal on retroflexion view. - Diverticulosis in the sigmoid colon. CONVERTED FINAL DIAGNOSIS Colon, cecum, polypectomy (A) - Tubular adenoma. DTP/dcr 12/03/2018 CURRENT MEDICATIONS Current Outpatient Medications Medication Sig amLODIPine (NORVASC) 10 mg tablet Take 1 tablet by mouth once daily. cloNIDine HCl (CATAPRES) 0.2 mg tablet Take 1 tablet by mouth two times a day. lisinopril (ZESTRIL) 40 mg tablet Take 1 tablet by mouth two times a day. metoprolol tartrate, short acting, (LOPRESSOR) 25 mg tablet Take 0.5 tablets by mouth every 12 hours. metFORMIN (GLUCOPHAGE) 500 mg tablet Take 2 tablets by mouth two times a day with meals. clopidogrel (PLAVIX) 75 mg tablet Take 1 tablet by mouth once daily. gabapentin (NEURONTIN) 300 mg capsule Take 1 capsule by mouth daily at bedtime for 180 days. Patient should start on December 26, 2024. hydrALAZINE (APRESOLINE) 50 mg tablet Take 1 tablet by mouth three times a day. atorvastatin (LIPITOR) 40 mg tablet Take 1 tablet by mouth daily at bedtime. For cholesterol. nitroglycerin sublingual (NITROQUICK) 0.3 mg SL tablet Dissolve 1 tablet under the tongue every 5 minutes as needed for chest pain. aspirin, enteric coated (ASPIRIN, ENTERIC COATED) 81 mg EC tablet Take 1 tablet by mouth once daily. therapeutic multivitamin tablet Take 1 tablet by mouth daily with breakfast. blood sugar diagnostic (ONE TOUCH ULTRA TEST) test strip Use as instructed blood sugar diagnostic (ONE TOUCH ULTRA TEST) test strip TEST BLOOD SUGARS ONCE DAILY lancets(ONE TOUCH ULTRASOFT LANCETS) Test blood sugar once daily. peg 3350-Electrolytes (GOLYTELY) 236-22.74-6.74 -5.86 gram suspension Take 4,000 mL by mouth one time only for 1 dose. Refer to printed prep instructions from your provider. No current facility-administered medications for this visit. ALLERGIES: Patient has no known allergies. PAST MEDICAL HISTORY PAST MEDICAL HISTORY Diagnosis Date Anemia, unspecified type Atherosclerosis of hoh arteries of the extremities with intermittent claudication 09/07/2010 BENIGN NEOPLASM LG BOWEL 07/29/2008 Tubular adenoma. 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 Coronary artery disease Dermatophytosis of nail 12/29/2007 Diabetic peripheral neuropathy (HCC) 05/17/2014 Diabetic polyneuropathy associated with type 2 diabetes mellitus (HCC) DVT of leg (deep venous thrombosis) (HCC) 11/16/2013 post-op CABG, rx with Xarelto Essential hypertension Hypertrophy of prostate without urinary obstruction and other lower urinary tract symptoms (LUTS) 12/29/2007 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/29/2007 Non-ST elevation myocardial infarction (NSTEMI) 10/17/2013 Non-STEMI (non-ST elevated myocardial infarction) (HCC) 01/30/2024 LISANDRO to distal RCA Nonspecific abnormal results of liver function study 04/29/2008 Obesity, unspecified 12/29/2007 Onychomycosis Other and unspecified hyperlipidemia PAD (peripheral artery disease) 08/05/2009 Personal history of other malignant neoplasm of skin 11/05/2010 skin cancer Postoperative anemia 10/25/2013 Transfused on 10/25 1 U PRBC. H&H 9.2/26.3. DC on diuretic taper for dilutional component and MVI with iron and repeat as outpt Primary osteoarthritis of left knee 02/21/2018 [facility]. Type II or unspecified type diabetes mellitus without mention of complication, not stated as uncontrolled 12/29/2007 Unspecified essential hypertension PAST SURGICAL HISTORY PAST SURGICAL HISTORY Procedure Laterality Date ANGIOPLASTY FEMORAL/POP 09/07/2010 right BALLN ANGIOPLASTY PERC,FEM-POP 11/17/2009 APLL WITH SILVERHAWK AND ANGIOPLASTY CC DRUG ELUTING STENT 1 VESSEL 01/29/2024 PTCA LISANDRO distal RCA CC DRUG ELUTING STENT ADDL VESSEL 09/30/2024 PCI, LISANDRO to 1) dislal Left main, 2) ramus intermedius. COLONOSCOPY FLX DX W/COLLJ SPEC WHEN PFRMD 07/2008 Colonoscopy COLONOSCOPY FLX DX W/COLLJ SPEC WHEN PFRMD 09/14/2013 Colonoscopy COLONOSCOPY FLX DX W/COLLJ SPEC WHEN PFRMD 12/02/2018 Colonoscopy CORONARY ARTERY BYP W/VEIN & ARTERY GRAFT 3 VEIN 10/20/2013 CABG, three grafts F ENDARTERECTOMY FEMORAL PROFUNDA Bilateral 05/24/2016 fem. endarterectomy, profundaplasty LEFT HEART CATH,PERCUTANEOUS 10/19/2013 Cardiac cath, L heart PRIM PRQ TRLUML MCHNL THRMBC N-COR N-ICRA 1ST 12/05/2009 left REVSC OPN/PRQ ILIAC ART W/STNT PLMT & ANGIOPLSTY Left 04/19/2016 with 9x29mm satish stenting SLCTV CATHJ EA 2ND+ ORD ABDL PEL/LXTR ART BRNCH 11/17/2009 LLE UNSPECIFIED ORAL SURGERY PROCEDURE, BY REPORT wisdom teeth removed FAMILY HISTORY FAMILY HISTORY Problem Relation Age of Onset Cancer Mother lymphoma, passed Heart Father 46 Stroke Father passed from this No Known Problems Sister No Known Problems Sister No Known Problems Brother GI Brother inflammatory bowel disease, crohn's Diabetes Brother Cancer Maternal Grandfather unsure of the type Heart Paternal Grandfather SOCIAL HISTORY Social History Tobacco Use Smoking status: Former Current packs/day: 0.00 Average packs/day: 1 pack/day for 34.0 years (34.0 ttl pk-yrs) Types: Cigarettes Start date: 10/28/1968 Quit date: 10/28/2002 Years since quittin.4 Passive exposure: Past Smokeless tobacco: Never Vaping Use Vaping status: Never Used Substance Use Topics Alcohol use: Yes Alcohol/week: 30.0 standard drinks of alcohol Types: 30 Cans of Beer (12oz) per week Comment: 6 beers per day, sometimes less Drug use: Yes Frequency: 2.0 times per week Comment: marijuana REVIEW OF SYMPTOMS: REVIEW OF SYSTEMS: General: The patient denies fatigue, denies weight loss, denies weight gain, denies feeling hot, and feelings of cold. Eyes: The patient denies glaucoma, + eye injury/surgery, + glasses or contacts. Ear/Nose/Throat: The patient denies allergies, denies hayfever, denies ear infections, and denies bloody noses. Cardiovascular: The patient denies chest pain, denies heart disease, + high blood pressure, denies high cholesterol, and + poor circulation. Respiratory: The patient denies tuberculosis, denies pneumonia, denies frequent cough, denies shortness of breath, and denies coughing up blood. Gastrointestinal: The patient denies difficulty swallowing, denies acid reflux, denies ulcers, denies jaundice/hepatitis, denies gallbladder problems, denies vomiting, denies black or tarry stools, denies hemorrhoids, denies bleeding from rectum, denies diverticulitis, denies constipation, denies diarrhea, denies loss of stool control, and denies hernias. Kidney/Bladder: The patient denies kidney stones, denies urine infections, and denies bloody urine. Skin: The patient + a history of skin cancer, denies bleeding/changing moles, and denies a history of skin rash. Neurologic: The patient denies a history of epilepsy/convulsions, denies headaches, denies head/spinal injuries, and denies stroke/TIA. Psychiatric: The patient denies psychiatric medications, denies depression, and denies voices. Endocrine: The patient denies thyroid disorders, + diabetes, and denies hormonal problems. Hematologic: The patient denies a history of bruising, denies bleeding, and denies anemia. Infections: The patient denies a history of measles and mumps, denies rheumatic fever, and denies sexually transmitted diseases. Musculoskeletal: The patient denies back pain/injury, denies back problems, denies sciatica, denies knee/foot trouble, + arthritis, or denies gout. PHYSICAL EXAMINATION: General: The patient is 75 year old, male well nourished, well hydrated in no acute distress. The patient is oriented to time, place, and person. VITALS: Blood pressure 128/62, pulse 62, resp. rate 14, weight 86.8 kg (191 lb 6.4 oz), SpO2 98%. Body mass index is 28.35 kg/m . HEENT: Normal cephalic, ataumatic, pupils are equally round, sclera are anicteric, mucous membranes are moist, oropharynx is clear. Neck has no masses, asymmetry or lymphadenopathy. Respiratory: Clear to auscultation. Normal respiratory excursion and pattern. Cardiac: Examination is regular rate and rhythm. Normal S1/S2 Abdominal exam: Soft, nontender, with no palpable masses. No hepatosplenomegaly. No palpable hernias. Extremities: no clubbing, cyanosis or edema. No adenopathy. LABORATORY VALUES: As Noted RADIOLOGIC STUDIES: As Noted Assessment IMPRESSION: screen for colon cancer, history of colon polyps, anemia PLAN: I have reviewed my findings with the surgeon. Will plan for upper and lower endoscopy. We discussed the risks and benefits of the planned endoscopy in terms understandable to the patient. I have informed the patient that complications can occur including failure to complete the endoscopy and perforation. Marie had the opportunity to ask questions concerning the planned endoscopy. Marie freely consents to surgery. Cardiac clearance sent to [facility]. Will keep patient on plavix & schedule with Dr. Rivera. I plan to use Golytely bowel preparation I have explained to the patient the difference between IV conscious sedation and MAC anesthesia - and I have offered either, according to the patient's wishes. I have explained that with IV conscious sedation there is no anesthesia provider available and therefore there is a limitation of the amount of IV medications that can be given and that the patient may wake up in the middle of the procedure and/or experience pain/discomfort during the procedure. Further discussion was done and the patient was given the opportunity to ask questions and all questions were answered. Marie chooses IV conscious sedation. Marie was counseled that if there are changes in his/her medical condition, to let the office know if surgery should proceed. If there are changes in patient's medical condition from time of this encounter to the day of the procedure that preclude anesthesia, patient may have procedure cancelled for patient's safety. Diagnoses: (Z86.0100) History of colonic polyps (primary encounter diagnosis) (D64.9) Anemia, unspecified type (Z12.11) Colon cancer screening Consultation requested by Chilo Suggs CNP for an opinion regarding anemia & colon cancer screening. My final recommendations will be communicated back to the requesting physician by way of shared Medical record or letter to requesting physician via US mail. Portions of this documentation were copied and pasted from previous office visit notes in order to provide a cohesive continuity of the history. The note has been reviewed and edited and updated as necessary. Elvie Monterroso APRN.SLOT SUPERVISOR documented in this encounter [facility] 04-06-2025 Note HNO ID: [id number] Author: NARGIS YIN, DO Service: ? Author Type: Physician Type: Progress Notes Filed: 04/06/2025 09:38 Note Text: [facility] [place] DEPARTMENT OF VASCULAR SURGERY OUTPATIENT VISIT DATE April 06, 2025 OUTPATIENT VISIT TYPE ESTABLISHED SERVICE DATE: 04/06/2025 SERVICE TIME: 9:23 AM PRIMARY CARE PHYSICIAN: Sher Jules MD HISTORY OF PRESENT ILLNESS: Mr. Hutson is a 75 year old male who presents today for a vascular surgery follow-up visit for peripheral arterial disease. Denies significant claudication or rest pain. States he can walk about one city block prior to onset of pain. He is still able to do yard work and house work however he needs to take frequent breaks. Denies pain at rest. 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 Coronary artery disease Dermatophytosis of nail 12/29/2007 Diabetic peripheral neuropathy (HCC) 05/17/2014 Diabetic polyneuropathy associated with type 2 diabetes mellitus (HCC) DVT of leg (deep venous thrombosis) (HCC) 11/16/2013 post-op CABG, rx with Xarelto Essential hypertension Hypertrophy of prostate without urinary obstruction and other lower urinary tract symptoms (LUTS) 12/29/2007 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/29/2007 Non-ST elevation myocardial infarction (NSTEMI) 10/17/2013 Non-STEMI (non-ST elevated myocardial infarction) (HCC) 01/30/2024 LISANDRO to distal RCA Nonspecific abnormal results of liver function study 04/29/2008 Obesity, unspecified 12/29/2007 Onychomycosis Other and unspecified hyperlipidemia PAD (peripheral artery disease) 08/05/2009 Personal history of other malignant neoplasm of skin 11/05/2010 skin cancer Postoperative anemia 10/25/2013 Transfused on 10/25 1 U PRBC. HANDH 9.2/26.3. DC on diuretic taper for dilutional component and MVI with iron and repeat as outpt Primary osteoarthritis of left knee 02/21/2018 [facility]. Type II or unspecified type diabetes mellitus without mention of complication, not stated as uncontrolled 12/29/2007 Unspecified essential hypertension PAST SURGICAL HISTORY Procedure Laterality Date ANGIOPLASTY FEMORAL/POP 09/07/2010 right BALLN ANGIOPLASTY PERC,FEM-POP 11/17/2009 APLL WITH SILVERHAWK AND ANGIOPLASTY CC DRUG ELUTING STENT 1 VESSEL 01/29/2024 PTCA LISANDRO distal RCA CC DRUG ELUTING STENT ADDL VESSEL 09/30/2024 PCI, LISANDRO to 1) dislal Left main, 2) ramus intermedius. COLONOSCOPY FLX DX W/COLLJ SPEC WHEN PFRMD 07/2008 Colonoscopy COLONOSCOPY FLX DX W/COLLJ SPEC WHEN PFRMD 09/14/2013 Colonoscopy COLONOSCOPY FLX DX W/COLLJ SPEC WHEN PFRMD 12/02/2018 Colonoscopy CORONARY ARTERY BYP W/VEIN AND ARTERY GRAFT 3 VEIN 10/20/2013 CABG, three grafts F ENDARTERECTOMY FEMORAL PROFUNDA Bilateral 05/24/2016 fem. endarterectomy, profundaplasty LEFT HEART CATH,PERCUTANEOUS 10/19/2013 Cardiac cath, L heart PRIM PRQ TRLUML MCHNL THRMBC N-COR N-ICRA 1ST 12/05/2009 left REVSC OPN/PRQ ILIAC ART W/STNT PLMT AND ANGIOPLSTY Left 04/19/2016 with 9x29mm satish stenting SLCTV CATHJ EA 2ND+ ORD ABDL PEL/LXTR ART BRNCH 11/17/2009 LLE UNSPECIFIED ORAL SURGERY PROCEDURE, BY REPORT wisdom teeth removed SOCIAL HISTORY Social History Tobacco Use Smoking status: Former Current packs/day: 0.00 Average packs/day: 1 pack/day for 34.0 years (34.0 ttl pk-yrs) Types: Cigarettes Start date: 10/28/1968 Quit date: 10/28/2002 Years since quittin.4 Passive exposure: Past Smokeless tobacco: Never Vaping Use Vaping status: Never Used Substance Use Topics Alcohol use: Yes Alcohol/week: 30.0 standard drinks of alcohol Types: 30 Cans of Beer (12oz) per week Comment: 6 beers per day, sometimes less Drug use: Yes Frequency: 2.0 times per week Comment: marijuana MEDICATIONS: amLODIPine (NORVASC) 10 mg tablet Take 1 tablet by mouth once daily. cloNIDine HCl (CATAPRES) 0.2 mg tablet Take 1 tablet by mouth two times a day. lisinopril (ZESTRIL) 40 mg tablet Take 1 tablet by mouth two times a day. metoprolol tartrate, short acting, (LOPRESSOR) 25 mg tablet Take 0.5 tablets by mouth every 12 hours. metFORMIN (GLUCOPHAGE) 500 mg tablet Take 2 tablets by mouth two times a day with meals. clopidogrel (PLAVIX) 75 mg tablet Take 1 tablet by mouth once daily. gabapentin (NEURONTIN) 300 mg capsule Take 1 capsule by mouth daily at bedtime for 180 days. Patient should start on December 26, 2024. hydrALAZINE (APRESOLINE) 50 mg tablet Take 1 tablet by mouth three times a day. atorvastatin (LIPITOR) 40 mg tablet Take 1 tablet by mouth daily at bedtime. For cholesterol. nitroglycerin sublingual (NITROQUICK) 0.3 mg SL tab (more content not included)... [facility] 04-06-2025 History of Present illness Narrative Images from the original note were not included. [facility] [place] DEPARTMENT OF VASCULAR SURGERY OUTPATIENT VISIT DATE April 06, 2025 OUTPATIENT VISIT TYPE ESTABLISHED SERVICE DATE: 04/06/2025 SERVICE TIME: 9:23 AM PRIMARY CARE PHYSICIAN: Sher Jules MD HISTORY OF PRESENT ILLNESS: Mr. Hutson is a 75 year old male who presents today for a vascular surgery follow-up visit for peripheral arterial disease. Denies significant claudication or rest pain. States he can walk about one city block prior to onset of pain. He is still able to do yard work and house work however he needs to take frequent breaks. Denies pain at rest. 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 Coronary artery disease Dermatophytosis of nail 12/29/2007 Diabetic peripheral neuropathy (HCC) 05/17/2014 Diabetic polyneuropathy associated with type 2 diabetes mellitus (HCC) DVT of leg (deep venous thrombosis) (HCC) 11/16/2013 post-op CABG, rx with Xarelto Essential hypertension Hypertrophy of prostate without urinary obstruction and other lower urinary tract symptoms (LUTS) 12/29/2007 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/29/2007 Non-ST elevation myocardial infarction (NSTEMI) 10/17/2013 Non-STEMI (non-ST elevated myocardial infarction) (HCC) 01/30/2024 LISANDRO to distal RCA Nonspecific abnormal results of liver function study 04/29/2008 Obesity, unspecified 12/29/2007 Onychomycosis Other and unspecified hyperlipidemia PAD (peripheral artery disease) 08/05/2009 Personal history of other malignant neoplasm of skin 11/05/2010 skin cancer Postoperative anemia 10/25/2013 Transfused on 10/25 1 U PRBC. H&H 9.2/26.3. DC on diuretic taper for dilutional component and MVI with iron and repeat as outpt Primary osteoarthritis of left knee 02/21/2018 [facility]. Type II or unspecified type diabetes mellitus without mention of complication, not stated as uncontrolled 12/29/2007 Unspecified essential hypertension PAST SURGICAL HISTORY Procedure Laterality Date ANGIOPLASTY FEMORAL/POP 09/07/2010 right BALLN ANGIOPLASTY PERC,FEM-POP 11/17/2009 APLL WITH SILVERHAWK AND ANGIOPLASTY CC DRUG ELUTING STENT 1 VESSEL 01/29/2024 PTCA LISANDRO distal RCA CC DRUG ELUTING STENT ADDL VESSEL 09/30/2024 PCI, LISANDRO to 1) dislal Left main, 2) ramus intermedius. COLONOSCOPY FLX DX W/COLLJ SPEC WHEN PFRMD 07/2008 Colonoscopy COLONOSCOPY FLX DX W/COLLJ SPEC WHEN PFRMD 09/14/2013 Colonoscopy COLONOSCOPY FLX DX W/COLLJ SPEC WHEN PFRMD 12/02/2018 Colonoscopy CORONARY ARTERY BYP W/VEIN & ARTERY GRAFT 3 VEIN 10/20/2013 CABG, three grafts F ENDARTERECTOMY FEMORAL PROFUNDA Bilateral 05/24/2016 fem. endarterectomy, profundaplasty LEFT HEART CATH,PERCUTANEOUS 10/19/2013 Cardiac cath, L heart PRIM PRQ TRLUML MCHNL THRMBC N-COR N-ICRA 1ST 12/05/2009 left REVSC OPN/PRQ ILIAC ART W/STNT PLMT & ANGIOPLSTY Left 04/19/2016 with 9x29mm satish stenting SLCTV CATHJ EA 2ND+ ORD ABDL PEL/LXTR ART BRNCH 11/17/2009 LLE UNSPECIFIED ORAL SURGERY PROCEDURE, BY REPORT wisdom teeth removed SOCIAL HISTORY Social History Tobacco Use Smoking status: Former Current packs/day: 0.00 Average packs/day: 1 pack/day for 34.0 years (34.0 ttl pk-yrs) Types: Cigarettes Start date: 10/28/1968 Quit date: 10/28/2002 Years since quittin.4 Passive exposure: Past Smokeless tobacco: Never Vaping Use Vaping status: Never Used Substance Use Topics Alcohol use: Yes Alcohol/week: 30.0 standard drinks of alcohol Types: 30 Cans of Beer (12oz) per week Comment: 6 beers per day, sometimes less Drug use: Yes Frequency: 2.0 times per week Comment: marijuana MEDICATIONS: amLODIPine (NORVASC) 10 mg tablet Take 1 tablet by mouth once daily. cloNIDine HCl (CATAPRES) 0.2 mg tablet Take 1 tablet by mouth two times a day. lisinopril (ZESTRIL) 40 mg tablet Take 1 tablet by mouth two times a day. metoprolol tartrate, short acting, (LOPRESSOR) 25 mg tablet Take 0.5 tablets by mouth every 12 hours. metFORMIN (GLUCOPHAGE) 500 mg tablet Take 2 tablets by mouth two times a day with meals. clopidogrel (PLAVIX) 75 mg tablet Take 1 tablet by mouth once daily. gabapentin (NEURONTIN) 300 mg capsule Take 1 capsule by mouth daily at bedtime for 180 days. Patient should start on December 26, 2024. hydrALAZINE (APRESOLINE) 50 mg tablet Take 1 tablet by mouth three times a day. atorvastatin (LIPITOR) 40 mg tablet Take 1 tablet by mouth daily at bedtime. For cholesterol. nitroglycerin sublingual (NITROQUICK) 0.3 mg SL tablet Dissolve 1 tablet under the tongue every 5 minutes as needed for chest pain. aspirin, enteric coated (ASPIRIN, ENTERIC COATED) 81 mg EC tablet Take 1 tablet by mouth once daily. therapeutic multivitamin tablet Take 1 tablet by mouth daily with breakfast. blood sugar diagnostic (ONE TOUCH ULTRA TEST) test strip Use as instructed blood sugar diagnostic (ONE TOUCH ULTRA TEST) test strip TEST BLOOD SUGARS ONCE DAILY lancets(ONE TOUCH ULTRASOFT LANCETS) Test blood sugar once daily. ALLERGIES: ALLERGIES No Known Allergies PHYSICAL EXAM: BP 116/65 (BP Site: Right Arm, BP Position: Sitting, BP Cuff Size: Regular Adult) Pulse (!) 56 SpO2 96% General: Alert and oriented Extremities: trace edema Neurological: Normal cognition and motor skills. Vascular: non-palpable distal pulses Diagnostic tests reviewed for today's visit: Most recent labs Most recent imaging PVRs Compared to prior study of 04/07/2024, Right ankle brachial index was 0.36 and left was 0.35. RIGHT SIDE Resting right ankle brachial index: 0.26 Abnormal ankle brachial index at rest diagnostic of peripheral artery disease. Right ankle: Severe disease at rest. LEFT SIDE Resting left ankle brachial index: 0.33 Abnormal ankle brachial index at rest diagnostic of peripheral artery disease. Left ankle: Severe disease at rest. IMPRESSION: Mr. Hutson is a 75 year old male with peripheral arterial disease . PLAN and RECOMMENDATIONS: Mr. Hutson has significant disease however currently without rest pain. He has known SFA-popliteal occlusions with limited vein options for bypass. Would recommend continued non-interventional therapy at this time. Continue current medications. Follow up in one year with repeat imaging or sooner with any concerns SIGNATURE: Nargis Yin DO PATIENT NAME: Marie Hutson DATE: April 06, 2025 TIME: 9:23 AM Patient presents with: Follow Up: 1 year follow up PAD AMB ROOMING INTAKE FLOWSHEET DATA Patient denies any pain PVR done prior to appointment today. documented in this encounter [facility] 04-06-2025 Note HNO ID: [id number] Author: GEM QUIROGA MA Service: ? Author Type: Miner Helper Type: Progress Notes Filed: 04/06/2025 09:38 Note Text: Patient presents with: Follow Up: 1 year follow up PAD AMB ROOMING INTAKE FLOWSHEET DATA Patient denies any pain PVR done prior to appointment today. [facility] 03-18-2025 Note HNO ID: [id number] Author: ELVIE MONTERROSO APRN.SLOT SUPERVISOR Service: ? Author Type: Nurse Practitioner Type: Progress Notes Filed: 03/18/2025 10:06 Note Text: HISTORY AND PHYSICAL Marie Hutson : 1950 REFERRING PHYSICIAN: Barb Suggs [address] [facility] [address] CHIEF COMPLAINT: Patient presents with: Consult: For colonoscopy. Denies symptoms HPI: Marie is a 75 year old male referred for endoscopy. Marie notes anemia. Last HANDH 10.6 AND 29.8 (03/15/25). Marie denies abdominal pain. Marie denies diarrhea. Marie denies constipation. Marie denies a change in bowel habits. Marie denies melena. Marie denies bright red blood per rectum. Marie denies hemorrhoids. Marie denies family history of colon issues. Marie denies heartburn. Marie denies dysphagia. Marie denies a history of ulcers/ peptic ulcer disease. Marie follows with [facility] for hx of CABG x 3 (2012), CAD with 2 stents in 09/2024. On plavix. Last OV 01/2025. He denies CP, SOB, dizziness, palpitations, syncope, edema, recent hospitalizations Other medical history is significant for T2DM and osteoarthritis. Marie has undergone prior endoscopy. Last colonoscopy was 11/[address] Rivera at [facility]. Sedation:Midazolam 5 mg IV, Fentanyl 100 micrograms IV Impression: - One 8 mm polyp in the cecum, removed with a hot snare. Resected and retrieved. - The examination was otherwise normal. - The distal rectum and anal verge are normal on retroflexion view. - Diverticulosis in the sigmoid colon. CONVERTED FINAL DIAGNOSIS Colon, cecum, polypectomy (A) - Tubular adenoma. DTP/dcr 12/03/2018 Current Outpatient Medications Medication Sig amLODIPine (NORVASC) 10 mg tablet Take 1 tablet by mouth once daily. cloNIDine HCl (CATAPRES) 0.2 mg tablet Take 1 tablet by mouth two times a day. lisinopril (ZESTRIL) 40 mg tablet Take 1 tablet by mouth two times a day. metoprolol tartrate, short acting, (LOPRESSOR) 25 mg tablet Take 0.5 tablets by mouth every 12 hours. metFORMIN (GLUCOPHAGE) 500 mg tablet Take 2 tablets by mouth two times a day with meals. clopidogrel (PLAVIX) 75 mg tablet Take 1 tablet by mouth once daily. gabapentin (NEURONTIN) 300 mg capsule Take 1 capsule by mouth daily at bedtime for 180 days. Patient should start on December 26, 2024. hydrALAZINE (APRESOLINE) 50 mg tablet Take 1 tablet by mouth three times a day. atorvastatin (LIPITOR) 40 mg tablet Take 1 tablet by mouth daily at bedtime. For cholesterol. nitroglycerin sublingual (NITROQUICK) 0.3 mg SL tablet Dissolve 1 tablet under the tongue every 5 minutes as needed for chest pain. aspirin, enteric coated (ASPIRIN, ENTERIC COATED) 81 mg EC tablet Take 1 tablet by mouth once daily. therapeutic multivitamin tablet Take 1 tablet by mouth daily with breakfast. blood sugar diagnostic (ONE TOUCH ULTRA TEST) test strip Use as instructed blood sugar diagnostic (ONE TOUCH ULTRA TEST) test strip TEST BLOOD SUGARS ONCE DAILY lancets(ONE TOUCH ULTRASOFT LANCETS) Test blood sugar once daily. peg 3350-Electrolytes (GOLYTELY) 236-22.74-6.74 -5.86 gram suspension Take 4,000 mL by mouth one time only for 1 dose. Refer to printed prep instructions from your provider. No current facility-administered medications for this visit. ALLERGIES: Patient has no known allergies. 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 Coronary artery disease Dermatophytosis of nail 12/29/2007 Diabetic peripheral neuropathy (HCC) 05/17/2014 Diabetic polyneuropathy associated with type 2 diabetes mellitus (HCC) DVT of leg (deep venous thrombosis) ([facility]) 11/16/2013 post-op CABG, rx with Xarelto Essential hypertension Hypertrophy of prostate without urinary obstruction and other lower urinary tract symptoms (LUTS) 12/29/2007 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/29/2007 Non-ST elevation myocardial infarction (NSTEMI) 10/17/2013 Non-STEMI (non-ST elevated myocardial infarction) ([facility]) 01/30/2024 LISANDRO to distal RCA Nonspecific abnormal results of liver function study 04/29/2008 Obesity, unspecified 12/29/2007 Onychomycosis Other and unspecified hyperlipidemia PAD (peripheral artery disease) 08/05/2009 Personal history of other malignant neoplasm of skin 11/05/2010 skin cancer Postoperative anemia 10/25/2013 Transfused on 10/25 1 U PRBC. HANDH 9.2/26.3. DC on diuretic taper for dilutional component and MVI with iron and repeat as outpt Primary osteoarthritis of left knee 02/21/2018 [facility]. Type II or unspecified type diabetes mellitus without mention of complication, not stated as uncontrolled 12/29/2007 Unspecified essential hyper (more content not included)... [facility] 03-16-2025 Note HNO ID: [id number] Author: BRIAN GARSIA Tech Service: ? Author Type: Technologist Type: Progress Notes Filed: 03/16/2025 11:47 Note Text: Radiology Service Progress Note PATIENT NAME: Marie Hutson DATE OF SERVICE: March 16, 2025 TIME: 11:37 AM PATIENT IDENTITY VERIFICATION COMPLETED USING TWO (2) IDENTIFIERS: Name and Date of confirmed by patient verbally. FALL SCREENING: Has the patient had 2 falls in the last year or 1 fall with injury or currently using an Ambulatory Assistive Device (Walker, Cane, Wheelchair, Crutches, etc.)? No PATIENT GENDER DATA: Assigned male at PATIENT RELEVANT IMPLANT DATA REVIEWED: Not Applicable PATIENT PRESENTS WITH AN IMPLANTABLE OR ATTACHED CUSHION SPRING ASSEMBLER: No RADIOLOGY DEPARTMENT: General X-ray: Exam(s) Completed: Upper Extremity X-Ray(s): Hand, bilateral PERIPHERAL IV DATA: Not applicable SIGNED BY: Arlene Goldstein March 16, 2025 11:37 AM [facility] 03-16-2025 Note HNO ID: [id number] Author: BARB SUGGS APRN.SLOT SUPERVISOR Service: ? Author Type: Nurse Practitioner Type: Progress Notes Filed: 03/16/2025 10:47 Note Text: Marie Hutson is a 75 year old male here for a Medicare wellness visit. Medicare Health Risk Assessment General Health Good Exercise: Minutes/Day 0 min Exercise: Days/Week 0 days Alcohol: Daily Use 4 or more times a week Alcohol: Drinks/Day 5 or 6 Alcohol: 6 or more drinks Daily or almost daily Feel off balance No Concerns: Teeth/Dentures No Concerns: Sexual function No Troubled by feelings None of the above Frequency: Eating healthy diet Nearly every day ADLs requiring help None of the above Safety precautions in home/vehicle Yes Smoke, vape, chews tobacco No Difficulty hearing Yes, I wear a hearing aid Difficulty seeing No Current Providers Specialists: I have reviewed specialist-related care of the patient in the medical record. Current care team: Patient Care Team: Sher Jules MD as PCP - General Barb Suggs APRN.SLOT SUPERVISOR as Firesetter (Internal Medicine) [facility] (Neurology) [facility] (Cardiology) Nargis Yin MD Vascular-[facility] Gomez Schwab DPM, Podiatry-[facility] Genomics Scientist-Hugh Delacruz/Dr. Edward Adams Block Press Operator- [facility] Medical/Family history review Reviewed and updated problem list, medical/surgical/family/social history, medications, and allergies. Opioid use review Opioid Medications (last 90 days) No data to display Anxiety/Depression screening PHQ-2 Score: 0 (Lower risk for depression) ELIZABETH-7 Score: 0 Recommendation: no further intervention at this time Cognitive screening Mini Cog Score: 5 Cognitive screening reviewed and No further action needed (score 3-5). Functional Observation Was the patient's Timed Up AND Go test unsteady or >= 12 seconds? No Advance Care Planning Surrogate decision maker documented and/or advance directives scanned in chart Measurements BP 130/74 Pulse 60 Resp 14 Ht 175 cm (5' 8.9) Wt 86.3 kg (190 lb 4.1 oz) SpO2 98% BMI 28.18 kg/m? Vision Screening: Follows with optometry/ophthalmology Assessment/Plan Medicare annual wellness visit, subsequent (Z00.00) - Counseled on healthy diet and regular exercise - Fall avoidance information provided - Personalized prevention plan provided - Discussed need for and benefit of weight loss. BMI 28.18 kg/(m2) - Counseled patient on alcohol intake and associated health risks Additional Concerns The following concerns were also discussed with the patient: Recording using [employer] software for draft documentation of the visit was discussed with the patient/authorized bank representative; all questions welcomed and answered. Patient/authorized bank representative agreed to proceed Marie is a 75-year-old male with a history of DM, HTN, CAD, and neuropathy, presenting for a Medicare wellness visit. Marie reports chronic hyponatremia, with recent lab results showing a sodium level of 126 mmol/L. He is no longer taking hydrochlorothiazide. He experiences occasional dizziness, lightheadedness, and a foggy feeling, as well as nocturnal leg cramps that cause him to spring up out of bed. He also has a history of anemia, with recent lab results confirming persistent low blood counts. He denies hematochezia or melena but reports increased fatigue and dyspnea, particularly when walking. He notes difficulty ambulating due to leg issues. His last colonoscopy was several years ago, and he is supposed to have one every 5 years. He recently had two stents placed in [place] and is currently on Plavix, which he believes he will be on for life due to a history of multiple MIs. He was advised to wait a year before having a colonoscopy. Marie also reports hand and wrist pain, particularly in the evenings. He attributes this to motorcycle riding, which involves frequent use of the clutch and brakes. The pain is described as joint pain, primarily in the knuckles, thumb, and wrist, and is not associated with numbness or tingling. He has tried Voltaren gel, which provides some relief. He is on multiple medications, including gabapentin for neuropathy, lisinopril and metoprolol for blood pressure, hydralazine 50 mg TID, and metformin for diabetes. He checks his blood pressure at home, with a recent reading of 135 mmHg, and his blood sugars, with a recent fasting glucose of 108 mg/dL. He is currently taking metoprolol 12.5 mg BID, although his prescription is for TID. He has a stockpile of metoprolol and hydralazine and does not need refills at this time. BP 130/74 Pulse 60 Resp 14 Ht 175 cm (5' 8.9) Wt 86.3 kg (190 lb 4.1 oz) SpO2 98% BMI 28.18 kg/m? Physical Exam Vitals reviewed. Constitutional: Appearance: Normal appearance. Cardiovascular: Rate and Rhythm: Regular rhythm. Bradycardia present. Heart sounds: Normal heart sounds. No murmur heard. Pulmonary: Effort: (more content not included)... [facility] 03-04-2025 Telephone encounter Note Patient's request for medication is as follows: Requested Prescriptions Pending Prescriptions Disp Refills metoprolol tartrate, short acting, (LOPRESSOR) 25 mg tablet [Pharmacy Med Name: METOPROLOL TARTRATE 25 MG TAB] 360 tablet 0 Sig: TAKE 2 TABLETS BY MOUTH EVERY 12 HOURS Last seen in [place] 04/06/2024. Patient canceled 11/16/2024 follow up appointment. Notified pharmacy patient needs to schedule appointment for future refills Prescription(s) as above. Please process accordingly. Anabel Bhakta LPN [facility] 03-04-2025 Miscellaneous Notes Patient's request for medication is as follows: Requested Prescriptions Pending Prescriptions Disp Refills metoprolol tartrate, short acting, (LOPRESSOR) 25 mg tablet [Pharmacy Med Name: METOPROLOL TARTRATE 25 MG TAB] 360 tablet 0 Sig: TAKE 2 TABLETS BY MOUTH EVERY 12 HOURS Last seen in [place] 04/06/2024. Patient canceled 11/16/2024 follow up appointment. Notified pharmacy patient needs to schedule appointment for future refills Prescription(s) as above. Please process accordingly. Anabel Bhakta LPN documented in this encounter [facility] 02-23-2025 Note HNO ID: [id number] Author: GOMEZ SCHWAB, ? Service: ? Author Type: Physician Type: Progress Notes Filed: 02/23/2025 12:47 Note Text: Last saw pcp: 11/13/24 Carmela Berry is a 75-year-old male with a history of diabetes mellitus, peripheral neuropathy, and peripheral vascular disease, presenting for a diabetic foot exam and nail trimming. Diabetic Foot Exam: - Denies pain with nail growth. - Noticed second toenail appears to have fallen off. - Recent biopsy site on the left anterior leg, performed by a rn team leader, is healing without issues. - Denies current smoking. - Denies burning sensation in feet; reports tingling and numbness. Neurological: (+) tingling, (+) numbness, (-) burning PAST MEDICAL HISTORY Diagnosis Date Atherosclerosis of hoh arteries of the extremities with intermittent claudication 09/07/2010 BENIGN NEOPLASM LG BOWEL 07/29/2008 Tubular adenoma. 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 Coronary artery disease Dermatophytosis of nail 12/29/2007 Diabetic peripheral neuropathy (HCC) 05/17/2014 DVT of leg (deep venous thrombosis) (HCC) 11/16/2013 post-op CABG, rx with Xarelto Hypertrophy of prostate without urinary obstruction and other lower urinary tract symptoms (LUTS) 12/29/2007 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/29/2007 Non-ST elevation myocardial infarction (NSTEMI) 10/17/2013 Non-STEMI (non-ST elevated myocardial infarction) ([facility]) 01/30/2024 LISANDRO to distal RCA Nonspecific abnormal results of liver function study 04/29/2008 Obesity, unspecified 12/29/2007 Other and unspecified hyperlipidemia PAD (peripheral artery disease) 08/05/2009 Personal history of other malignant neoplasm of skin 11/05/2010 skin cancer Postoperative anemia 10/25/2013 Transfused on 10/25 1 U PRBC. HANDH 9.2/26.3. DC on diuretic taper for dilutional component and MVI with iron and repeat as outpt Primary osteoarthritis of left knee 02/21/2018 [facility]. Type II or unspecified type diabetes mellitus without mention of complication, not stated as uncontrolled 12/29/2007 Unspecified essential hypertension Current Outpatient Medications Medication Sig Dispense Refill metFORMIN (GLUCOPHAGE) 500 mg tablet Take 2 tablets by mouth two times a day with meals. 360 tablet 3 clopidogrel (PLAVIX) 75 mg tablet Take 1 tablet by mouth once daily. 90 tablet 3 gabapentin (NEURONTIN) 300 mg capsule Take 1 capsule by mouth daily at bedtime for 180 days. Patient should start on December 26, 2024. 90 capsule 1 hydrALAZINE (APRESOLINE) 50 mg tablet Take 1 tablet by mouth three times a day. atorvastatin (LIPITOR) 40 mg tablet Take 1 tablet by mouth daily at bedtime. For cholesterol. metoprolol tartrate, short acting, (LOPRESSOR) 25 mg tablet Take 0.5 tablets by mouth two times a day. nitroglycerin sublingual (NITROQUICK) 0.3 mg SL tablet Dissolve 1 tablet under the tongue every 5 minutes as needed for chest pain. 14 tablet 2 lisinopril (ZESTRIL) 40 mg tablet Take 1 tablet by mouth two times a day. (Patient not taking: Reported on 11/19/2024) 180 tablet 3 amLODIPine (NORVASC) 10 mg tablet Take 1 tablet by mouth once daily. 90 tablet 3 cloNIDine HCl (CATAPRES) 0.2 mg tablet Take 1 tablet by mouth two times a day. 180 tablet 3 aspirin, enteric coated (ASPIRIN, ENTERIC COATED) 81 mg EC tablet Take 1 tablet by mouth once daily. therapeutic multivitamin tablet Take 1 tablet by mouth daily with breakfast. 0 blood sugar diagnostic (ONE TOUCH ULTRA TEST) test strip Use as instructed 100 Strip 0 blood sugar diagnostic (ONE TOUCH ULTRA TEST) test strip TEST BLOOD SUGARS ONCE DAILY 50 Strip 6 lancets(ONE TOUCH ULTRASOFT LANCETS) Test blood sugar once daily. 100 3 No current facility-administered medications for this visit. Family History Problem Relation Age of Onset Cancer Mother lymphoma, passed Heart Father 46 Stroke Father passed from this No Known Problems Sister No Known Problems Sister No Known Problems Brother GI Brother inflammatory bowel disease, crohn's Diabetes Brother Cancer Maternal Grandfather unsure of the type Heart Paternal Grandfather ALLERGIES No Known Allergies Objective There were no vitals taken for this visit. - Cardiovascular: Dorsalis pedis and posterior tibial pulses non-palpable bilaterally. Capillary refill time <5 seconds in bilateral hallux. - Skin: Toenails 1-5 bilaterally elongated and discolored yellow; dryness noted on bilateral heels and lateral aspect of left fifth metatarsal; recent biopsy site on left anterior leg scabbed over without signs of infection; small subungual hematoma on third toenail. - Neurological: Protective sensation severely diminished bilaterally; vibratory sensation absent bilaterally. Labs Tests (03/2024) SWATI: - Right dorsal pedis: 0.34, 0.36 (normal range 0.9-1.3) - Left do (more content not included)... [facility] 02-23-2025 History of Present illness Narrative Last saw pcp: 11/13/24 Carmela Berry is a 75-year-old male with a history of diabetes mellitus, peripheral neuropathy, and peripheral vascular disease, presenting for a diabetic foot exam and nail trimming. Diabetic Foot Exam: - Denies pain with nail growth. - Noticed second toenail appears to have fallen off. - Recent biopsy site on the left anterior leg, performed by a rn team leader, is healing without issues. - Denies current smoking. - Denies burning sensation in feet; reports tingling and numbness. Neurological: (+) tingling, (+) numbness, (-) burning PAST MEDICAL HISTORY Diagnosis Date Atherosclerosis of hoh arteries of the extremities with intermittent claudication 09/07/2010 BENIGN NEOPLASM LG BOWEL 07/29/2008 Tubular adenoma. 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 Coronary artery disease Dermatophytosis of nail 12/29/2007 Diabetic peripheral neuropathy (HCC) 05/17/2014 DVT of leg (deep venous thrombosis) (HCC) 11/16/2013 post-op CABG, rx with Xarelto Hypertrophy of prostate without urinary obstruction and other lower urinary tract symptoms (LUTS) 12/29/2007 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/29/2007 Non-ST elevation myocardial infarction (NSTEMI) 10/17/2013 Non-STEMI (non-ST elevated myocardial infarction) (HCC) 01/30/2024 LISANDRO to distal RCA Nonspecific abnormal results of liver function study 04/29/2008 Obesity, unspecified 12/29/2007 Other and unspecified hyperlipidemia PAD (peripheral artery disease) 08/05/2009 Personal history of other malignant neoplasm of skin 11/05/2010 skin cancer Postoperative anemia 10/25/2013 Transfused on 10/25 1 U PRBC. H&H 9.2/26.3. DC on diuretic taper for dilutional component and MVI with iron and repeat as outpt Primary osteoarthritis of left knee 02/21/2018 [facility]. Type II or unspecified type diabetes mellitus without mention of complication, not stated as uncontrolled 12/29/2007 Unspecified essential hypertension Current Outpatient Medications Medication Sig Dispense Refill metFORMIN (GLUCOPHAGE) 500 mg tablet Take 2 tablets by mouth two times a day with meals. 360 tablet 3 clopidogrel (PLAVIX) 75 mg tablet Take 1 tablet by mouth once daily. 90 tablet 3 gabapentin (NEURONTIN) 300 mg capsule Take 1 capsule by mouth daily at bedtime for 180 days. Patient should start on December 26, 2024. 90 capsule 1 hydrALAZINE (APRESOLINE) 50 mg tablet Take 1 tablet by mouth three times a day. atorvastatin (LIPITOR) 40 mg tablet Take 1 tablet by mouth daily at bedtime. For cholesterol. metoprolol tartrate, short acting, (LOPRESSOR) 25 mg tablet Take 0.5 tablets by mouth two times a day. nitroglycerin sublingual (NITROQUICK) 0.3 mg SL tablet Dissolve 1 tablet under the tongue every 5 minutes as needed for chest pain. 14 tablet 2 lisinopril (ZESTRIL) 40 mg tablet Take 1 tablet by mouth two times a day. (Patient not taking: Reported on 11/19/2024) 180 tablet 3 amLODIPine (NORVASC) 10 mg tablet Take 1 tablet by mouth once daily. 90 tablet 3 cloNIDine HCl (CATAPRES) 0.2 mg tablet Take 1 tablet by mouth two times a day. 180 tablet 3 aspirin, enteric coated (ASPIRIN, ENTERIC COATED) 81 mg EC tablet Take 1 tablet by mouth once daily. therapeutic multivitamin tablet Take 1 tablet by mouth daily with breakfast. 0 blood sugar diagnostic (ONE TOUCH ULTRA TEST) test strip Use as instructed 100 Strip 0 blood sugar diagnostic (ONE TOUCH ULTRA TEST) test strip TEST BLOOD SUGARS ONCE DAILY 50 Strip 6 lancets(ONE TOUCH ULTRASOFT LANCETS) Test blood sugar once daily. 100 3 No current facility-administered medications for this visit. Family History Problem Relation Age of Onset Cancer Mother lymphoma, passed Heart Father 46 Stroke Father passed from this No Known Problems Sister No Known Problems Sister No Known Problems Brother GI Brother inflammatory bowel disease, crohn's Diabetes Brother Cancer Maternal Grandfather unsure of the type Heart Paternal Grandfather ALLERGIES No Known Allergies Objective There were no vitals taken for this visit. - Cardiovascular: Dorsalis pedis and posterior tibial pulses non-palpable bilaterally. Capillary refill time <5 seconds in bilateral hallux. - Skin: Toenails 1-5 bilaterally elongated and discolored yellow; dryness noted on bilateral heels and lateral aspect of left fifth metatarsal; recent biopsy site on left anterior leg scabbed over without signs of infection; small subungual hematoma on third toenail. - Neurological: Protective sensation severely diminished bilaterally; vibratory sensation absent bilaterally. Labs Tests (03/2024) SWATI: - Right dorsal pedis: 0.34, 0.36 (normal range 0.9-1.3) - Left dorsal pedis: 0.25, 0.35 (normal range 0.9-1.3) Shave biopsy (left anterior leg): No results mentioned Imaging 1. Onychomycosis (B35.1) 2. Pain in toe of left foot (M79.675) 3. Pain in toe of right foot (M79.674) - Toenails 1-5 of both feet are elongated and discolored yellow, consistent with onychodystrophy - Trimmed toenails 1-5 b/l. q8 modifier. small bleed to right 4th toe. band aide applied - Recommended placing cotton or rawls's wool between toes to prevent rubbing and potential sores. - Scheduled follow-up in three months for nail care. 4. Diabetic polyneuropathy associated with type 2 diabetes mellitus (HCC) (E11.42) - Protective and vibratory sensations are severely diminished bilaterally. - Educated patient on the importance of daily foot inspections to identify any sores or injuries early. - Advised against barefoot walking and recommended wearing protective footwear. - Emphasized the need for regular moisturizing to prevent skin dryness and cracking. 5. PAD (peripheral artery disease) (I73.9) - Reinforced the importance of immediate medical attention for any foot sores or injuries due to compromised blood flow. - Patient is under the care of Dr. Yin for vascular management. follow-up in 3 months Attestation Recording using [employer] software for draft documentation of the visit was discussed with the patient/authorized bank representative; all questions welcomed and answered. Patient/authorized bank representative agreed to proceed Gomez Schwab DPM AMB ROOMING INTAKE FLOWSHEET DATA Patient presents with: Left Foot - Established Patient, Follow Up, Diabetic Foot Care, Numbness Right Foot - Established Patient, Follow Up, Diabetic Foot Care, Numbness Cheryle Merritt LPN documented in this encounter [facility] 02-23-2025 Instructions Gomez Schwab - 02/23/2025 10:45 AM EDT Diabetes Foot Care Instructions When you have diabetes, proper foot care is very important. Poor foot care may lead to amputation of a foot or leg. As a person with diabetes, you are more vulnerable to foot problems, because diabetes can damage your nerves and reduce blood flow to your feet. Here are some diabetes foot care tips to follow: Wash and Dry Your Feet Daily Use mild soaps Use warm water Pat your skin dry; do not rub. Thoroughly dry your feet. After washing, use lotion on your feet to prevent cracking. Do not put lotion between your toes. Examine Your Feet Each Day Check the tops and bottoms of your feet. Have someone else look at your feet if you cannot see them. Check for dry, cracked skin. Look for blisters, cuts, scratches, or other sores. Check for redness, increased warmth, or tenderness when touching any area of your feet. Check for ingrown toenails, corns, and calluses. If you get a blister or sore from your shoes, do not pop it. Apply a bandage and wear a different pair of shoes. Take Care of Your Toenails Cut toenails after bathing, when they are soft. Cut toenails straight across and smooth with a nail file. Avoid cutting into the corners of toes. Do not cut cuticles. If you have neuropathy (or decreased sensation in your feet) a briar cutter should always cut your toenails. Be Careful When Exercising Walk and exercise in comfortable shoes. Do not exercise when you have open sores on your feet. Protect Your Feet With Shoes and Socks Never go barefoot. Always protect your feet by wearing shoes or hard-soled slippers or footwear. Avoid shoes with high heels and pointed toes. Avoid shoes that expose your toes or heels (such as open-toed shoes or sandals). These types of shoes increase your risk for injury and potential infections. Try on new footwear with the type of socks you usually wear. Do not wear new shoes for more than an hour at a time. Change your socks daily. Look and feel inside your shoes before putting them on to make sure there are no foreign objects or rough areas. Avoid tight socks. Wear natural-fiber socks (cotton, wool, or a cotton-wool blend). Wear special shoes if your health care provider recommends them. Wear shoes/boots that will protect your feet from various weather conditions (cold, moisture, etc.). Make sure your shoes fit properly. If you have neuropathy (nerve damage), you may not notice that your shoes are too tight. Perform the footwear test described below. Footwear Test Use this simple test to see if your shoes fit correctly: Stand on a piece of paper. (Make sure you are standing and not sitting, because your foot changes shape when you stand.) Trace the outline of your foot. Trace the outline of your shoe. Compare the tracings: Is the shoe too narrow? Is your foot crammed into the shoe? The shoe should be at least 1/2 inch longer than your longest toe and as wide as your foot. Proper Shoe Choices The following types of shoes are best for people with diabetes Closed toes and heels Leather uppers without a seam inside At least 1/2 inch extra space at the end of your longest toe Inside of shoe should be soft with no rough areas Outer sole should be made of stiff material Shoes should be at least as wide as your feet Tips for Foot Care in Diabetes Don't wait to treat a minor foot problem if you have diabetes. Follow your health care provider's guidelines and first aid guidelines. Report foot injuries and infections to your health care provider immediately. Check water temperature with your elbow, not your foot. Do not use a heating pad on your feet. Do not cross your legs. Do not self-treat your corns, calluses, or other foot problems. Go to your health care provider or briar cutter to treat these conditions. Continue to check your feet daily for any sores, changes, or signs of infection and call immediately if you notice any issues. Keep your feet protected at all times by avoiding barefoot walking and wearing well-fitted, protective shoes. Keep your toenails trimmed; if you notice any nails rubbing against your skin, consider placing cotton or a protective pad between your toes. Regularly moisturize your feet with lotion to help prevent dryness and cracking. Your next follow-up visit is scheduled in three months. Please contact us sooner if any foot issues arise. documented in this encounter [facility] 02-23-2025 Note HNO ID: [id number] Author: CHERYLE MERRITT LPN Service: ? Author Type: LICENSED NURSE Type: Progress Notes Filed: 02/23/2025 12:47 Note Text: AMB ROOMING INTAKE FLOWSHEET DATA Patient presents with: Left Foot - Established Patient, Follow Up, Diabetic Foot Care, Numbness Right Foot - Established Patient, Follow Up, Diabetic Foot Care, Numbness Cheryle Merritt LPN [facility] 02-11-2025 Evaluation note Diagnosis Onset Date Resolution S/P CABG x 3 acute February 11, 2025 1:10pm CAD (coronary artery disease) chronic February 11, 2025 1:10pm Carotid bruit chronic February 11, 2025 1:10pm Diabetes chronic February 11 1:10pm Dyslipidemia chronic February 11, 2025 1:10pm Hypertension chronic February 11, 2025 1:10pm Mitral valve regurgitation chronic February 11, 2025 1:10pm Stented coronary artery January 29, 2024 chronic February 11, 2025 1:10pm [facility] Work Phone: 1(605) 964-334504-17-2025 Evaluation note* Diagnosis Onset Date Resolution Status Admit Date S/P CABG x 3 acute February 11, 2025 1:10pm CAD (coronary artery disease) chroni c February 11, 2025 1:10pm Carotid bruit chronic February 11, 2025 1:10pm Diabetes chronic February 11 1:10pm Dyslipidemia chronic February 11, 2025 1:10pm Hypertension chronic February 11, 2025 1:10pm Mitral valve regurgitation chronic February 11, 2025 1:10pm Stented coronary artery January 29, 2024 chronic February 11, 2025 1:10pm Fracture of second metacarpa l bone of right hand acute May 06 1:58pm [place] [employer] Work Phone: 1(788) 490-149904-07-2025 Telephone encounter Note* Telephone Encounter - Anabel Ospina - 02/01/2025 2:44 PM EDT Prescription Refill Information The patient has been identified by name and date of : Yes Caregiver verified no other encounters exist for this prescription request: Yes Caregiver confirmed with patient/requestor that no other refills are due, in the near future, with this provider at this time: Yes The last office visit in the department: 11-13-24 Does the patient have a future office visit with this provider/department: Yes Requested Prescriptions Pending Prescriptions Disp Refills metFORMIN (GLUCOPHAGE) 500 mg tablet 360 tablet 3 Sig: Take 2 tablets by mouth two times a day with meals. clopidogrel (PLAVIX) 75 mg tablet 90 tablet 3 Sig: Take 1 tablet by mouth once daily. Anabel Ribera February 01, 2025 2:44 PM [facility]04-07-2025 Miscellaneous Notes* Telephone Encounter - Anabel Ospina - 02/01/2025 2:44 PM EDT Prescription Refill Information The patient has been identified by name and date of : Yes Caregiver verified no other encounters exist for this prescription request: Yes Caregiver confirmed with patient/requestor that no other refills are due, in the near future, with this provider at this time: Yes The last office visit in the department: 11-13-24 Does the patient have a future office visit with this provider/department: Yes Requested Prescriptions Pending Prescriptions Disp Refills metFORMIN (GLUCOPHAGE) 500 mg tablet 360 tablet 3 Sig: Take 2 tablets by mouth two times a day with meals. clopidogrel (PLAVIX) 75 mg tablet 90 tablet 3 Sig: Take 1 tablet by mouth once daily. Anabel Ribera February 01, 2025 2:44 PM [facility] [place] Note12/31/24 1453 [facility] Outreach Assessment Selection Which outreach assessment are you completing? 90 Day [facility]PCI - 90 Day Outreach Did patient answer phone call? Yes (2/4 - via [facility]) Since you have been discharged from the facility, what do you feel the status of you condition is? Improving Do you have any concerns with your medication(s)? No Any complications with post discharge services? No (Cardiac rehab scheduled at [place]) Any concerns with your DME equipment? N/A Any questions about your condition you are unsure about that I can help clarify? No Patient on BPCI Advanced: OP Patients Qualify for Cardiac Care and Cardiac Procedures from [facility] report 10/01/2024. EMR reviewed. Patient enrolled in [facility] Ambulatory Cardiac 90-day BPCI Program post-hospital discharge 09/30/24 Dx: PCI with IVL, LISANDRO to Left Main->Ramus Right radial artery used. Patient has a past medical history of DM with neuropathy, HTN, HLD, family history of premature CAD, prior tobacco use (quit), ocular TIA. He had a CABG in 2012. 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 WRIGHT to LAD was patent. At that time distal RCA was stented. He also had a severely stenotic calcified distal left main and ostial ramus. 90-day BPCI outreach made 12/01/24 patient doin well Cardiac Rehab scheduled at [place]. BPCI program is complete able to avoid any hospital readmissions during 90-day BPCI period case closed.[facility]03-04-2025 Note12/29/24 1249 General Care Management Assessment completed with: Patient Enrolled in care management program: Yes Living arrangement: Spouse Support system: Spouse Type of residence: Private residence Home care services: No Equipment used at home: None Communication device: Yes Bed or wheelchair confined: No Inadequate nutrition: No Medication adherence problem: No Difficulty keeping appointments: [facility]01-23-2025 History of Present illness Narrative* Josselin Gomez - 11/19/2024 11:19 AM EST Last saw pcp: 11/13/24 Subjective: Patient presents to clinic c/o painful toenails. They state that the nails are especially painful with shoe gear and pressure. Patient states that nails b/l hallux are painful. Patient admits to being diabetic. No other pedal complaints at this time. Patient states no change in medications or medical history since last visit. Objective: Patient presents to clinic ambulating in sneakers Vasc: DP and PT pulses are nonpalpable bilateral. CFT is less than 5 seconds bilateral. Skin temperature is warm to cool proximal to distal bilateral. There is mild edema or varicosities noted. Neuro: Protective sensation is absent to the foot and toes when tested with the 5.07 SWM bilateral.Vibratory sensation is absent at the hallux IPJ bilateral. The hallux is downgoing bilateral. Derm: Nails 1-5 b/l are painful, discolored-yellow, thick, crumbly, dystrophic and with subungal debris. Skin is of normal turgor, texture and hair growth is absent bilateral. There are no hyperkeratosis, ulcerations, scars, verruca or other lesions noted. Ortho: Muscle strength is 5/5 for all pedal groups tested. Ankle joint DF is decreased with the knee extended with no pain or crepitus noted. 1st MPJ ROM is decreased bilateral. Assessment: (B35.1) Onychomycosis (primary encounter diagnosis) (M79.675) Pain in toe of left foot (M79.674) Pain in toe of right foot (E11.42) Diabetic polyneuropathy associated with type 2 diabetes mellitus ([facility]) (I73.9) PAD (peripheral artery disease) ([facility]) Plan: Patient was seen and evaluated. Nails 1-5 bilateral were debrided in length and thickness. Small bleed to right 3rd toe. Band aide and topical antibiotic applied. Patient was instructed on the continued importance of diabetic foot care along with proper diet andkeeping their blood sugar under control to prevent complications. Stressed the importance of avoiding barefoot walking, wearing good shoes and inspection of feet. Patient is to RTC in 3-4 months. Gomez Schwab DPM * Cheryle Merritt LPN - 11/19/2024 11:09 AM EST AMB ROOMING INTAKE FLOWSHEET DATA Risk Screening Do you have concerns about personal safety or safety in the home?: No Patient presents with: Left Foot - Established Patient, Follow Up, Diabetic Foot Care Right Foot - Established Patient, Follow Up, Diabetic Foot Care Cheryle Merritt LPN documented in this encounterKing[facility] [place]25 NoteHNO ID: [id number] Author: GOMEZ SCHWAB, ? Service: ? Author Type: Physician Type: Progress Notes Filed: 11/19/2024 11:31 Note Text: Last saw pcp: 11/13/24 Subjective: Patient presents to clinic c/o painful toenails. They state that the nails are especially painful with shoe gear and pressure. Patient states that nails b/l hallux are painful. Patient admits to being diabetic. No other pedal complaints at this time. Patient states no change in medications or medical history since last visit. Objective: Patient presents to clinic ambulating in [facility] Vasc: DP and PT pulses are nonpalpable bilateral. CFT is less than 5 seconds bilateral. Skin temperature is warm to cool proximal to distal bilateral. There is mild edema or varicosities noted. Neuro: Protective sensation is absent to the foot and toes when tested with the 5.07 SWM bilateral. Vibratory sensation is absent at the hallux IPJ bilateral. The hallux is downgoing bilateral. Derm: Nails 1-5 b/l are painful, discolored-yellow, thick, crumbly, dystrophic and with subungal debris. Skin is of normal turgor, texture and hair growth is absent bilateral. There are no hyperkeratosis, ulcerations, scars, verruca or other lesions noted. Ortho: Muscle strength is 5/5 for all pedal groups tested. Ankle joint DF is decreased with the knee extended with no pain or crepitus noted. 1st MPJ ROM is decreased bilateral. Assessment: (B35.1) Onychomycosis (primary encounter diagnosis) (M79.675) Pain in toe of left foot (M79.674) Pain in toe of right foot (E11.42) Diabetic polyneuropathy associated with type 2 diabetes mellitus (HCC) (I73.9) PAD (peripheral artery disease) ([facility]) Plan: Patient was seen and evaluated. Nails 1-5 bilateral were debrided in length and thickness. Small bleed to right 3rd toe. Band aide and topical antibiotic applied. Patient was instructed on the continued importance of diabetic foot care along with proper diet and keeping their blood sugar under control to prevent complications. Stressed the importance of avoiding barefoot walking, wearing good shoes and inspection of feet. Patient is to RTC in 3-4 months. Goemz Schwab [facility]01-23-2025 Instructions* Patient Instructions* Gomez Schwab - 11/19/2024 11:18 AM EST Diabetes Foot Care Instructions When you have diabetes, proper foot care is very important. Poor foot care may lead to amputation of a foot or leg. As a person with diabetes, you are more vulnerable to foot problems, because diabetes can damage your nerves and reduce blood flow to your feet. Here are some diabetes foot care tips to follow: Wash and Dry Your Feet Daily Use mild soaps Use warm water Pat your skin dry; do not rub. Thoroughly dry your feet. After washing, use lotion on your feet to prevent cracking. Do not put lotion between your toes. Examine Your Feet Each Day Check the tops and bottoms of your feet. Have someone else look at your feet if you cannot see them. Check for dry, cracked skin. Look for blisters, cuts, scratches, or other sores. Check for redness, increased warmth, or tenderness when touching any area of your feet. Check for ingrown toenails, corns, and calluses. If you get a blister or sore from your shoes, do not pop it. Apply a bandage and wear a differentpair of shoes. Take Care of Your Toenails Cut toenails after bathing, when they are soft. Cut toenails straight across and smooth with a nail file. Avoid cutting into the corners of toes. Do not cut cuticles. If you have neuropathy (or decreased sensation in your feet) a briar cutter should always cut your toenails. Be Careful When Exercising Walk and exercise in comfortable shoes. Do not exercise when you have open sores on your feet. Protect Your Feet With Shoes and Socks Never go barefoot. Always protect your feet by wearing shoes or hard-soled slippers or footwear. Avoid shoes with high heels and pointed toes. Avoid shoes that expose your toes or heels (such as open-toed shoes or sandals). These types of shoes increase your risk for injury and potential infections. Try on new footwear with the type of socks you usually wear. Do not wear new shoes for more than an hour at a time. Change your socks daily. Look and feel inside your shoes before putting them on to make sure there are no foreign objects orrough areas. Avoid tight socks. Wear natural-fiber socks (cotton, wool, or a cotton-wool blend). Wear special shoes if your health care provider recommends them. Wear shoes/boots that will protect your feet from various weather conditions (cold, moisture, etc.). Make sure your shoes fit properly. If you have neuropathy (nerve damage), you may not notice that your shoes are too tight. Perform the footwear test described below. Footwear Test Use this simple test to see if your shoes fit correctly: Stand on a piece of paper. (Make sure you are standing and not sitting, because your foot changes shape when you stand.) Trace the outline of your foot. Trace the outline of your shoe. Compare the tracings: Is the shoe too narrow? Is your foot crammed into the shoe? The shoe should be at least 1/2 inch longer than your longest toe and as wide as your foot. Proper Shoe Choices The following types of shoes are best for people with diabetes Closed toes and heels Leather uppers without a seam inside At least 1/2 inch extra space at the end of your longest toe Inside of shoe should be soft with no rough areas Outer sole should be made of stiff material Shoes should be at least as wide as your feet Tips for Foot Care in Diabetes Don't wait to treat a minor foot problem if you have diabetes. Follow your health care provider's guidelines and first aid guidelines. Report foot injuries and infections to your health care provider immediately. Check water temperature with your elbow, not your foot. Do not use a heating pad on your feet. Do not cross your legs. Do not self-treat your corns, calluses, or other foot problems. Go to your health care provider or briar cutter to treat these conditions. documented in this encounterKing'S [facility] [place]01-23-2025 NoteHNO ID: [id number] Author: CHERYLE MERRITT LPN Service: ? Author Type: LICENSED NURSE Type: Progress Notes Filed: 11/19/2024 11:31 Note Text: AMB ROOMING INTAKE FLOWSHEET DATA Risk Screening Do you have concerns about personal safety or safety in the home?: No Patient presents with: Left Foot - Established Patient, Follow Up, Diabetic Foot Care Right Foot - Established Patient, Follow Up, Diabetic Foot Care Cheryle Merritt [facility]01-17-2025 NoteHNO ID: [id number] Author: SHER JULES MD Service: ? Author Type: Physician Type: Progress Notes Filed: 11/13/2024 13:56 Note Text: This note was created using [employer]andy[employer]. Subjective Marie Hutson is a 74 year old male. He saw Dr. Simeon and proceeded with staged PCI and LISANDRO to his ramus intermedius and distal L main on 2023. He was to continue DAPT till 2024. Hydrochlorothiazide was discontinued. Hydralazine was added. His hypertension was better. Review of Systems Constitutional: Negative for fatigue and fever. Respiratory: Negative for chest tightness and shortness of breath. Cardiovascular: Negative for chest pain, palpitations and leg swelling. Neurological: Negative for dizziness and headaches. 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 Obesity, Class I, Bmi 30-34.9 Anemia Hyponatremia Social History Tobacco Use Smoking status: Former Current packs/day: 0.00 Average packs/day: 1 pack/day for 34.0 years (34.0 ttl pk-yrs) Types: Cigarettes Start date: 10/28/1968 Quit date: 10/28/2002 Years since quittin.0 Passive exposure: Past Smokeless tobacco: Never Vaping Use Vaping status: Never Used Substance Use Topics Alcohol use: Yes Alcohol/week: 30.0 standard drinks of alcohol Types: 30 Cans of Beer (12oz) per week Comment: 6 beers per day, sometimes less Drug use: Yes Frequency: 2.0 times per week Comment: marijuana Current Outpatient Medications Medication Sig atorvastatin (LIPITOR) 40 mg tablet Take 1 tablet by mouth daily at bedtime. For cholesterol. hydroCHLOROthiazide 25 mg tablet Take 1 tablet by mouth once daily. metoprolol tartrate, short acting, (LOPRESSOR) 25 mg tablet Take 0.5 tablets by mouth two times a day. gabapentin (NEURONTIN) 300 mg capsule Take 1 capsule by mouth daily at bedtime for 180 days. nitroglycerin sublingual (NITROQUICK) 0.3 mg SL tablet Dissolve 1 tablet under the tongue every 5 minutes as needed for chest pain. metFORMIN (GLUCOPHAGE) 500 mg tablet Take 2 tablets by mouth two times a day with meals. clopidogrel (PLAVIX) 75 mg tablet Take 1 tablet by mouth once daily. lisinopril (ZESTRIL) 40 mg tablet Take 1 tablet by mouth two times a day. amLODIPine (NORVASC) 10 mg tablet Take 1 tablet by mouth once daily. cloNIDine HCl (CATAPRES) 0.2 mg tablet Take 1 tablet by mouth two times a day. aspirin, enteric coated (ASPIRIN, ENTERIC COATED) 81 mg EC tablet Take 1 tablet by mouth once daily. therapeutic multivitamin tablet Take 1 tablet by mouth daily with breakfast. blood sugar diagnostic (ONE TOUCH ULTRA TEST) test strip Use as instructed blood sugar diagnostic (ONE TOUCH ULTRA TEST) test strip TEST BLOOD SUGARS ONCE DAILY lancets(ONE TOUCH ULTRASOFT LANCETS) Test blood sugar once daily. No current facility-administered medications for this visit. Objective BP 132/62 Pulse 60 Resp 16 Wt 87 kg (191 lb 12.8 oz) SpO2 98% BMI 27.52 kg/m? Physical Exam Constitutional: Appearance: Normal appearance. Eyes: Conjunctiva/sclera: Conjunctivae normal. Cardiovascular: Rate and Rhythm: Normal rate and regular rhythm. Heart sounds: S1 normal and S2 normal. Murmur heard. Pulmonary: Breath sounds: Normal breath sounds. Musculoskeletal: Right lower leg: No edema. Left lower leg: No edema. Neurological: Mental Status: He is alert. Assessment and Plan 1. Diabetic peripheral neuropathy (HCC) - ICD9: 250.60, 357.2, ICD10: E11.42 (primary diagnosis) - Controlled - Continue current medications - GABAPENTIN 300 MG CAPSULE 2. Essential hypertension - ICD9: 401.9, ICD10: I10 - Improving control - Continue current medications - HYDRALAZINE 50 MG TABLET 3. Anemia, unspecified type - ICD9: 285.9, ICD10: D64.9 Monitor. - COMPLETE BLOOD COUNT 4. Well controlled type 2 diabetes mellitus with neurological manifestations (HCC) - ICD9: 250.60, ICD10: E11.49 - Controlled - Continue current medications - BASIC METABOLIC PANEL - HEMOGLOBIN A1C 5. S/P drug eluting coronary stent placement - ICD9: V45.82, ICD10: Z95.5 2023. DAPT until 2024. Sher Jules [facility]01-17-2025 History of Present illness Narrative* Sher Jules MD - 11/13/2024 1:18 PM EST This note was created using [employer]andy[employer]. Subjective Marie Hutson is a 74 year old male. He saw Dr. Simeon and proceeded with staged PCI and LISANDRO to hisramus intermedius and distal L main on 2023. He was to continue DAPT till 2024. Hydrochlorothiazide was discontinued. Hydralazine was added. His hypertension was better. Review of Systems Constitutional: Negative for fatigue and fever. Respiratory: Negative for chest tightness and shortness of breath. Cardiovascular: Negative for chest pain, palpitations and leg swelling. Neurological: Negative for dizziness and headaches. 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 Obesity, Class I, Bmi 30-34.9 Anemia Hyponatremia Social History Tobacco Use Smoking status: Former Current packs/day: 0.00 Average packs/day: 1 pack/day for 34.0 years (34.0 ttl pk-yrs) Types: Cigarettes Start date: 10/28/1968 Quit date: 10/28/2002 Years since quittin.0 Passive exposure: Past Smokeless tobacco: Never Vaping Use Vaping status: Never Used Substance Use Topics Alcohol use: Yes Alcohol/week: 30.0 standard drinks of alcohol Types: 30 Cans of Beer (12oz) per week Comment: 6 beers per day, sometimes less Drug use: Yes Frequency: 2.0 times per week Comment: marijuana Current Outpatient Medications Medication Sig atorvastatin (LIPITOR) 40 mg tablet Take 1 tablet by mouth daily at bedtime. For cholesterol. hydroCHLOROthiazide 25 mg tablet Take 1 tablet by mouth once daily. metoprolol tartrate, short acting, (LOPRESSOR) 25 mg tablet Take 0.5 tablets by mouth two times a day. gabapentin (NEURONTIN) 300 mg capsule Take 1 capsule by mouth daily at bedtime for 180 days. nitroglycerin sublingual (NITROQUICK) 0.3 mg SL tablet Dissolve 1 tablet under the tongue every 5 minutes as needed for chest pain. metFORMIN (GLUCOPHAGE) 500 mg tablet Take 2 tablets by mouth two times a day with meals. clopidogrel (PLAVIX) 75 mg tablet Take 1 tablet by mouth once daily. lisinopril (ZESTRIL) 40 mg tablet Take 1 tablet by mouth two times a day. amLODIPine (NORVASC) 10 mg tablet Take 1 tablet by mouth once daily. cloNIDine HCl (CATAPRES) 0.2 mg tablet Take 1 tablet by mouth two times a day. aspirin, enteric coated (ASPIRIN, ENTERIC COATED) 81 mg EC tablet Take 1 tablet by mouth once daily. therapeutic multivitamin tablet Take 1 tablet by mouth daily with breakfast. blood sugar diagnostic (ONE TOUCH ULTRA TEST) test strip Use as instructed blood sugar diagnostic (ONE TOUCH ULTRA TEST) test strip TEST BLOOD SUGARS ONCE DAILY lancets(ONE TOUCH ULTRASOFT LANCETS) Test blood sugar once daily. No current facility-administered medications for this visit. Objective BP 132/62 Pulse 60 Resp 16 Wt 87 kg (191 lb 12.8 oz) SpO2 98% BMI 27.52 kg/m Physical Exam Constitutional: Appearance: Normal appearance. Eyes: Conjunctiva/sclera: Conjunctivae normal. Cardiovascular: Rate and Rhythm: Normal rate and regular rhythm. Heart sounds: S1 normal and S2 normal. Murmur heard. Pulmonary: Breath sounds: Normal breath sounds. Musculoskeletal: Right lower leg: No edema. Left lower leg: No edema. Neurological: Mental Status: He is alert. Assessment and Plan 1. Diabetic peripheral neuropathy (HCC) - ICD9: 250.60, 357.2, ICD10: E11.42 (primary diagnosis) - Controlled - Continue current medications - GABAPENTIN 300 MG CAPSULE 2. Essential hypertension - ICD9: 401.9, ICD10: I10 - Improving control - Continue current medications - HYDRALAZINE 50 MG TABLET 3. Anemia, unspecified type - ICD9: 285.9, ICD10: D64.9 Monitor. - COMPLETE BLOOD COUNT 4. Well controlled type 2 diabetes mellitus with neurological manifestations (HCC) - ICD9: 250.60, ICD10: E11.49 - Controlled - Continue current medications - BASIC METABOLIC PANEL - HEMOGLOBIN A1C 5. S/P drug eluting coronary stent placement - ICD9: V45.82, ICD10: Z95.5 2023. DAPT until 2024. Sher Jules MD documented in this encounterKing[facility] [place]01-15-2025 NoteHNO ID: [id number] Author: PALAK ROSALES LPN Service: ? Author Type: LICENSED NURSE Type: Progress Notes Filed: 11/11/2024 14:06 Note Text: POPULATION HEALTH NAVIGATION OUTREACH Action/FYI Reason for Outreach Care Gap/HCC or Scheduling Wellness Visits Care Gaps due: Follow-up Appointment Patient Contacted: Spoke to patient/parent/or legal guardian Patient identified by name and : Yes Care Gap/HCC/Scheduling Wellness actions taken: PCP confirmed Navigation Signature: Palak Rosales LPN November 11, 2024 2:06 [facility]01-15-2025 History of Present illness Narrative* Palak Rosales LPN - 11/11/2024 2:06 PM EST POPULATION HEALTH NAVIGATION OUTREACH Action/FYI Reason for Outreach Care Gap/HCC or Scheduling Wellness Visits Care Gaps due: Follow-up Appointment Patient Contacted: Spoke to patient/parent/or legal guardian Patient identified by name and : Yes Care Gap/HCC/Scheduling Wellness actions taken: PCP confirmed Navigation Signature: Palak Rosales LPN November 11, 2024 2:06 PM documented in this encounterKing'S [facility] [place]12-30-2024 NoteEMR reviewed. Patient on BPCI Advanced: OP [facility] E[facility] reviewed. Patient enrolled in [facility] Ambulatory Cardiac 90-day BPCI Program post-hospital discharge 09/30/24 Dx: PCI with IVL, LISANDRO to Left Main->Ramus Right radial artery used. Patient has a past medical history of DM with neuropathy, HTN, HLD, family history of premature CAD, prior tobacco use (quit), ocular TIA. He had a CABG in 2012. 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 WRIGHT to LAD was patent. At that time distal RCA was stented. He also had a severely stenotic calcified distal left main and ostial ramus. 21-day BPCI outreach made unable to reach or LVM phone just rang CM spoke with patient 72 hour post op reported doing well and was feeling good post PCI procedure denied health concerns or questions at the time encouraged patient to reach out with any concerns. Future outreach scheduled.[facility]12-10-2024 Note Patient on BPCI Advanced: OP Patients Qualify for Cardiac Care and Cardiac Procedures from [facility] report 10/01/2024. EMR reviewed. Patient enrolled in [facility] Ambulatory Cardiac 90-day BPCI Program post-hospital discharge 09/30/24 Dx: PCI with IVL, LISANDRO to Left Main->Ramus Right radial artery used. Patient has a past medical history of DM with neuropathy, HTN, HLD, family history of premature CAD, prior tobacco use (quit), ocular TIA. He had a CABG in 2012. 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 WRIGHT to LAD was patent. At that time distal RCA was stented. He also had a severely stenotic calcified distal left main and ostial ramus. BPCI outreach made unable to reach patient call forwarded to and then ended unable to leave a voice mail. Future outreach scheduled. Follow up 10/30/24 [facility] BOBBY Gan CNP Nurse Practitioner Cardiology Discharge Summary Signed Date of Service: 09/30/2024 2:19 PM Signed Expand All Collapse All Name: Marie Hutson Date of : 1950 Date of Admission: 09/30/2024 Date of Discharge: 09/30/2024 Admitting physician: Sergei Collins MD Discharge Attending: BOBBY Ruby CNP Primary Care Physician: Sher D Jules Review of Systems: Review of Systems Respiratory: Negative for shortness of breath. Cardiovascular: Negative for chest pain, palpitations and leg swelling. Neurological: Negative for dizziness, syncope and light-headedness. Hematological: Does not bruise/bleed easily. Physical Exam: Physical Exam Vitals reviewed. Constitutional: General: He is not in acute distress. Appearance: Normal appearance. He is not ill-appearing. HENT: Head: Normocephalic. Cardiovascular: Rate and Rhythm: Regular rhythm. Bradycardia present. Heart sounds: S1 normal and S2 normal. Comments: Right radial band in place x 2. No bleeding or hematoma noted. Intact temp, color, sensation. Pulmonary: Effort: Pulmonary effort is normal. No respiratory distress. Musculoskeletal: Right lower leg: No edema. Left lower leg: No edema. Skin: General: Skin is warm and dry. Neurological: Mental Status: He is alert and oriented to person, place, and time. Psychiatric: Attention and Perception: Attention normal. Speech: Speech normal. Vitals Vitals: 09/30/24 1430 09/30/24 1445 09/30/24 1500 09/30/24 1515 BP: (!) 166/62 Pulse: 55 (!) 45 (!) 49 (!) 49 Resp: 16 14 14 13 Temp: TempSrc: SpO2: Weight: Height: Reason for Admission: PCI Consultants: Cardiac Rehab HOSPITAL ADMISSION PROBLEM LIST: Problem List Patient Active Problem List Diagnosis Coronary artery disease involving hoh coronary artery of hoh heart without angina pectoris EKG: IMPRESSION: Sinus bradycardia Prolonged UT interval Borderline ST elevation, anterior leads TELEMETRY: SB 49 Procedures: Cath Summary: 09/30/24: Final report pending. PCI with IVL, LISANDRO to Left Main->Ramus Right radial artery used. HOSPITAL COURSE : Mr. Hutson is a 74 year old male known to Dr. Simeon who presents today for PCI by Dr. Collins. He has a past medical history of DM with neuropathy, HTN, HLD, family history of premature CAD, prior tobacco use (quit), ocular TIA. He had a CABG in 2012. 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 WRIGHT to LAD was patent. At that time distal RCA was stented. He also had a severely stenotic calcified distal left main and ostial ramus. Dr. Collins saw him in office for consideration of PCI with stenting of the left main into ramus with calcium modification, which was arranged as outpatient. He tolerated the procedure well. The right radial artery was used. HE was on aspirin and plavix prior. There were no complications and he remained stable. He was observed in prep and recovery per protocol. He denied any chest pain. Vitals stable. Patient educated on post PCI discharge activity, cath site care, medications, cardiac rehab, follow up care. There were 2 beta blockers on his medication list. Verified with his primary choke reamer office, and he was to discontinue carvedilol and continue metoprolol, which patient was advised of. Recommend a follow up in [address] Simeon office who I contacted. Last Labs: No results found for: WBC, HGB, HCT, MCV, PLT Lab Results Component Value Date K 4.2 09/30/2024 No results found for: CHLPL, CHOL No results found for: TRIG No results found for: HDL No results found for: LDLCALC Final Principle Discharge Diagnosis:CAD, s/p PCI of left main into Ramus - Stable. He denies any chest pain. Right radial wrist stable. Advised must continue DAPT - ASA and plavix uninterrupted for at least 1 year. Continue metoprolol, atorvastatin. Cardiac rehab recommended- he will do in [place]. Follow up with Dr. Simeon. Secondary Discharge diagnosis: HLD- continue atorvastatin. HTN- contin (more content not included)...[facility]12-05-2024 Note Patient on BPCI Advanced: OP Patients Qualify for Cardiac Care and Cardiac Procedures from [facility] report 10/01/2024. EMR reviewed. Patient enrolled in [facility] Cardiac 90-day BPCI Program post-hospital discharge 09/30/24 Dx: CAD, s/p PCI of left main into Ramus.. Right radial wrist stable. Advised must continue DAPT - ASA and plavix uninterrupted for at least 1 year. Continue metoprolol, atorvastatin. Cardiac rehab recommended- he will do in [place]. Follow up with Dr. Simeon. Future outreach scheduled. Secondary Discharge diagnosis: HLD- continue atorvastatin. HTN- continue metoprolol, clonidine, amlodipine, lisinopril. DM2- may resume metformin on Saturday. Admission Discharged 09/30/2024 [facility] Cath/EP Lab Stented coronary artery +2 more Dx Discharge Summary BOBBY Gan CNP (Nurse Practitioner) Cardiology Cosigned by: Sergei Collins MD at 09/30/2024 9:57 PM Expand All Collapse All Name: Marie Hutson Date of : 1950 Date of Admission: 09/30/2024 Date of Discharge: 09/30/2024 Admitting physician: Sergei Collins MD Discharge Attending: BOBBY Ruby CNP Primary Care Physician: Sher Jules Review of Systems: Review of Systems Respiratory: Negative for shortness of breath. Cardiovascular: Negative for chest pain, palpitations and leg swelling. Neurological: Negative for dizziness, syncope and light-headedness. Hematological: Does not bruise/bleed easily. Physical Exam: Physical Exam Vitals reviewed. Constitutional: General: He is not in acute distress. Appearance: Normal appearance. He is not ill-appearing. HENT: Head: Normocephalic. Cardiovascular: Rate and Rhythm: Regular rhythm. Bradycardia present. Heart sounds: S1 normal and S2 normal. Comments: Right radial band in place x 2. No bleeding or hematoma noted. Intact temp, color, sensation. Pulmonary: Effort: Pulmonary effort is normal. No respiratory distress. Musculoskeletal: Right lower leg: No edema. Left lower leg: No edema. Skin: General: Skin is warm and dry. Neurological: Mental Status: He is alert and oriented to person, place, and time. Psychiatric: Attention and Perception: Attention normal. Speech: Speech normal. Vitals Vitals: 09/30/24 1430 09/30/24 1445 09/30/24 1500 09/30/24 1515 BP: (!) 166/62 Pulse: 55 (!) 45 (!) 49 (!) 49 Resp: 16 14 14 13 Temp: TempSrc: SpO2: Weight: Height: Reason for Admission: PCI Consultants: Cardiac Rehab HOSPITAL ADMISSION PROBLEM LIST: Problem List Patient Active Problem List Diagnosis Coronary artery disease involving hoh coronary artery of hoh heart without angina pectoris EKG: IMPRESSION: Sinus bradycardia Prolonged UT interval Borderline ST elevation, anterior leads TELEMETRY: SB 49 Procedures: Cath Summary: 09/30/24: Final report pending. PCI with IVL, LISANDRO to Left Main->Ramus Right radial artery used. HOSPITAL COURSE : Mr. Hutson is a 74 year old male known to Dr. Simeon who presents today for PCI by Dr. Collins. He has a past medical history of DM with neuropathy, HTN, HLD, family history of premature CAD, prior tobacco use (quit), ocular TIA. He had a CABG in 2012. 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 WRIGHT to LAD was patent. At that time distal RCA was stented. He also had a severely stenotic calcified distal left main and ostial ramus. Dr. Collins saw him in office for consideration of PCI with stenting of the left main into ramus with calcium modification, which was arranged as outpatient. He tolerated the procedure well. The right radial artery was used. HE was on aspirin and plavix prior. There were no complications and he remained stable. He was observed in prep and recovery per protocol. He denied any chest pain. Vitals stable. Patient educated on post PCI discharge activity, cath site care, medications, cardiac rehab, follow up care. There were 2 beta blockers on his medication list. Verified with his primary choke reamer office, and he was to discontinue carvedilol and continue metoprolol, which patient was advised of. Recommend a follow up in [address] Simeon office who I contacted. Last Labs: No results found for: WBC, HGB, HCT, MCV, PLT Lab Results Component Value Date K 4.2 09/30/2024 No results found for: CHLPL, CHOL No results found for: TRIG No results found for: HDL No results found for: LDLCALC Final Principle Discharge Diagnosis:CAD, s/p PCI of left main into Ramus - Stable. He denies any chest pain. Right radial wrist stable. Advised must continue DAPT - ASA and plavix uninterrupted for at least 1 year. Continue metoprolol, atorvastatin. Cardiac rehab recommended- he will do in [place]. Follow up with Dr. Simeon. Secondary Discharge diagnosis: HLD- continue atorvastatin. HTN- continue metoprolol, clonidine, amlodipine, lisinopril. DM2- m (more content not included)...[facility] [id number] NoteName: Marie Hutson Date of : 1950 Date of Admission: 09/30/2024 Date of Discharge: 09/30/2024 Admitting physician: Sergei Collins MD Discharge Attending: Xochitl Solano APRN - SLOT SUPERVISOR Primary Care Physician: Sher Jules Review of Systems: Review of Systems Respiratory: Negative for shortness of breath. Cardiovascular: Negative for chest pain, palpitations and leg swelling. Neurological: Negative for dizziness, syncope and light-headedness. Hematological: Does not bruise/bleed easily. Physical Exam: Physical Exam Vitals reviewed. Constitutional: General: He is not in acute distress. Appearance: Normal appearance. He is not ill-appearing. HENT: Head: Normocephalic. Cardiovascular: Rate and Rhythm: Regular rhythm. Bradycardia present. Heart sounds: S1 normal and S2 normal. Comments: Right radial band in place x 2. No bleeding or hematoma noted. Intact temp, color, sensation. Pulmonary: Effort: Pulmonary effort is normal. No respiratory distress. Musculoskeletal: Right lower leg: No edema. Left lower leg: No edema. Skin: General: Skin is warm and dry. Neurological: Mental Status: He is alert and oriented to person, place, and time. Psychiatric: Attention and Perception: Attention normal. Speech: Speech normal. Vitals: 09/30/24 1430 09/30/24 1445 09/30/24 1500 09/30/24 1515 BP: (!) 166/62 Pulse: 55 (!) 45 (!) 49 (!) 49 Resp: 16 14 14 13 Temp: TempSrc: SpO2: Weight: Height: Reason for Admission: PCI Consultants: Cardiac Rehab HOSPITAL ADMISSION PROBLEM LIST: Patient Active Problem List Diagnosis Coronary artery disease involving hoh coronary artery of hoh heart without angina pectoris EKG: IMPRESSION: Sinus bradycardia Prolonged UT interval Borderline ST elevation, anterior leads TELEMETRY: SB 49 Procedures: Cath Summary: 09/30/24: Final report pending. PCI with IVL, LISANDRO to Left Main->Ramus Right radial artery used. HOSPITAL COURSE : Mr. Hutson is a 74 year old male known to Dr. Simeon who presents today for PCI by Dr. Collins. He has a past medical history of DM with neuropathy, HTN, HLD, family history of premature CAD, prior tobacco use (quit), ocular TIA. He had a CABG in 2012. 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 WRIGHT to LAD was patent. At that time distal RCA was stented. He also had a severely stenotic calcified distal left main and ostial ramus. Dr. Collins saw him in office for consideration of PCI with stenting of the left main into ramus with calcium modification, which was arranged as outpatient. He tolerated the procedure well. The right radial artery was used. HE was on aspirin and plavix prior. There were no complications and he remained stable. He was observed in prep and recovery per protocol. He denied any chest pain. Vitals stable. Patient educated on post PCI discharge activity, cath site care, medications, cardiac rehab, follow up care. There were 2 beta blockers on his medication list. Verified with his primary choke reamer office, and he was to discontinue carvedilol and continue metoprolol, which patient was advised of. Recommend a follow up in [address] Simeon office who I contacted. Last Labs: No results found for: WBC, HGB, HCT, MCV, PLT Lab Results Component Value Date K 4.2 09/30/2024 No results found for: CHLPL, CHOL No results found for: TRIG No results found for: HDL No results found for: LDLCALC Final Principle Discharge Diagnosis:CAD, s/p PCI of left main into Ramus - Stable. He denies any chest pain. Right radial wrist stable. Advised must continue DAPT - ASA and plavix uninterrupted for at least 1 year. Continue metoprolol, atorvastatin. Cardiac rehab recommended- he will do in [place]. Follow up with Dr. Simeon. Secondary Discharge diagnosis: HLD- continue atorvastatin. HTN- continue metoprolol, clonidine, amlodipine, lisinopril. DM2- may resume metformin on Saturday. Discharge Medications: Medication List CONTINUE taking these medications amLODIPine 10 MG tablet Commonly known as: Norvasc aspirin 81 MG EC tablet atorvastatin 40 MG tablet Commonly known as: Lipitor cloNIDine 0.2 MG tablet Commonly known as: Catapres clopidogrel 75 MG tablet Commonly known as: Plavix gabapentin 300 MG capsule Commonly known as: Neurontin lisinopril 40 MG tablet metFORMIN 500 MG tablet Commonly known as: Glucophage metoprolol tartrate 25 MG tablet Commonly known as: Lopressor nitroglycerin 0.3 MG SL tablet Commonly known as: Nitrostat STOP taking these medications carvedilol 12.5 MG tablet Commonly known as: Coreg hydroCHLOROthiazide 25 MG tablet Commonly known as: HYDRODiuril AMI/PCI Registry Information Aspirin: Yes P2Y12 Inhibitors: Yes High-Intensity Statin: Yes Beta Luis Alberto: Yes ACEi/ARB/ARNI: Yes Aldosterone Antagonist: No, not medically i (more content not included)...[facility]12-04-2024 Hospital course Narrative* BOBBY Gan CNP - 09/30/2024 2:19 PM EST Name: Marie Hutson Date of : 1950 Date of Admission: 09/30/2024 Date of Discharge: 09/30/2024 Admitting physician: Sergei Collins MD Discharge Attending: BOBBY Ruby CNP Primary Care Physician: Sher Jules Review of Systems: Review of Systems Respiratory: Negative for shortness of breath. Cardiovascular: Negative for chest pain, palpitations and leg swelling. Neurological: Negative for dizziness, syncope and light-headedness. Hematological: Does not bruise/bleed easily. Physical Exam: Physical Exam Vitals reviewed. Constitutional: General: He is not in acute distress. Appearance: Normal appearance. He is not ill-appearing. HENT: Head: Normocephalic. Cardiovascular: Rate and Rhythm: Regular rhythm. Bradycardia present. Heart sounds: S1 normal and S2 normal. Comments: Right radial band in place x 2. No bleeding or hematoma noted. Intact temp, color, sensation. Pulmonary: Effort: Pulmonary effort is normal. No respiratory distress. Musculoskeletal: Right lower leg: No edema. Left lower leg: No edema. Skin: General: Skin is warm and dry. Neurological: Mental Status: He is alert and oriented to person, place, and time. Psychiatric: Attention and Perception: Attention normal. Speech: Speech normal. Vitals: 09/30/24 1430 09/30/24 1445 09/30/24 1500 09/30/24 1515 BP: (!) 166/62 Pulse: 55 (!) 45 (!) 49 (!) 49 Resp: 16 14 14 13 Temp: TempSrc: SpO2: Weight: Height: Reason for Admission: PCI Consultants: Cardiac Rehab HOSPITAL ADMISSION PROBLEM LIST: Patient Active Problem List Diagnosis Coronary artery disease involving hoh coronary artery of hoh heart without angina pectoris EKG: IMPRESSION: Sinus bradycardia Prolonged UT interval Borderline ST elevation, anterior leads TELEMETRY: SB 49 Procedures: Cath Summary: 09/30/24: Final report pending. PCI with IVL, LISANDRO to Left Main->Ramus Right radial artery used. HOSPITAL COURSE : Mr. Hutson is a 74 year old male known to Dr. Simeon who presents today for PCI by Dr. Collins. He has a past medical history of DM with neuropathy, HTN, HLD, family history of premature CAD, prior tobacco use (quit), ocular TIA. He had a CABG in 2012. 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 WRIGHT to LAD was patent. At that time distal RCA was stented. He also had a severely stenotic calcified distal left main and ostial ramus. Dr. Collins saw him in office for consideration of PCI with stenting of the left main into ramus with calcium modification, which was arranged as outpatient. He tolerated the procedure well. The right radial artery was used. HE was on aspirin and plavix prior. There were no complications and he remained stable. He was observed in prep and recovery per protocol. He denied any chest pain. Vitals stable. Patient educated on post PCI discharge activity, cath site care, medications, cardiac rehab, followup care. There were 2 beta blockers on his medication list. Verified with his primary choke reamer office, and he was to discontinue carvedilol and continue metoprolol, which patient was advised of. Recommend a follow up in [address] Simeon office who I contacted. Last Labs: No results found for: WBC, HGB, HCT, MCV, PLT Lab Results Component Value Date K 4.2 09/30/2024 No results found for: CHLPL, CHOL No results found for: TRIG No results found for: HDL No results found for: LDLCALC Final Principle Discharge Diagnosis:CAD, s/p PCI of left main into Ramus - Stable. He denies any chest pain. Right radial wrist stable. Advised must continue DAPT - ASA andplavix uninterrupted for at least 1 year. Continue metoprolol, atorvastatin. Cardiac rehab recommended- he will do in [place]. Follow up with Dr. Simeon. Secondary Discharge diagnosis: HLD- continue atorvastatin. HTN- continue metoprolol, clonidine, amlodipine, lisinopril. DM2- may resume metformin on Saturday. Discharge Medications: Medication List CONTINUE taking these medications amLODIPine 10 MG tablet Commonly known as: Norvasc aspirin 81 MG EC tablet atorvastatin 40 MG tablet Commonly known as: Lipitor cloNIDine 0.2 MG tablet Commonly known as: Catapres clopidogrel 75 MG tablet Commonly known as: Plavix gabapentin 300 MG capsule Commonly known as: Neurontin lisinopril 40 MG tablet metFORMIN 500 MG tablet Commonly known as: Glucophage metoprolol tartrate 25 MG tablet Commonly known as: Lopressor nitroglycerin 0.3 MG SL tablet Commonly known as: Nitrostat STOP taking these medications carvedilol 12.5 MG tablet Commonly known as: Coreg hydroCHLOROthiazide 25 MG tablet Commonly known as: HYDRODiuril AMI/PCI Registry Information Aspirin: Yes P2Y12 Inhibitors: Yes High-Intensity Statin: Yes Beta Luis Alberto: Yes ACEi/ARB/ARNI: Yes Aldosterone Antagonist: No, not medically indicated Cardiac Rehab: Yes, after discussing with patient, patient agrees Cardiac Rehab The Cardiac Rehab team at [facility] consists of highly skilled exercise physiologists, nurses, respiratory therapists and physicians working together with you. Our purpose is to help you have a full recovery and achieve the goals you set for yourself. Over the years many of our patients have returned to activities they assumed they would never do again! We can help restore your confidence and motivation to make lifestyle changes that can have a significant impact on your health and quality of life! We can help answer questions and concerns you may have about exercise, lifestyle, medications, diet, stress and anxiety which are common following a hospitalization. We monitor ECG and vital signs during exercise and discuss your progress with you and report to your physician. Cardiac Rehab is proven to help reduce readmissions, improve functional capacity and lower recurrence of problems with your heart. We have facilities at both [facility] and [facility]. At both locations we have street level parking which is free and our sites are easily accessible. For both burdenes you can contact us at . We invite you to call us with your questions or to get started in our program. If you have other questions or concerns be sure to ask your provider during your follow up visit. We look forward to seeing you there. Our locations: [facility] [address] [facility] [address] Ground Floor [id number] - Ground floor BMI Classification: Overweight (BMI 25.0-29.9) DIET: A lowfat, low cholesterol diet was discussed with the patient. Discharge to Home Condition at Discharge: stable Follow up with cardiology Dr. Simeon on October 14, in 2 weeks. If any questions call [facility] Cardiology-[facility] office [phone] Total time spent for Discharge time greater than 31 minutes Cosigned by Sergei Collins MD at 09/30/2024 9:57 PM EST documented in this [facility]12-04-2024 Hospital Discharge instructions* Discharge Instructions* BOBBY Gan CNP - 09/30/2024 12:19 PM EST Restart Metformin Saturday. Stop carvedilol and HCTZ (this was stopped by [facility]). Continue all same medications. Follow up with Dr. Simeon. We recommend a follow up in 2 weeks. Call your doctor with any medication questions or if you notice any side effects from your medications. If you are unable to fill your medications, please call your Food Quality Technician immediately. The office number is located with your follow-up appointment information. Call your doctor if any redness or drainage from the wound site. DO NOT stop taking your medication unless instructed to do so by your doctor. Read the drug information material that were given to you and take medications as instructed by your doctor. New drugs may have been added to your medications, that will strengthen your heart and prevent re-stenosis of the coronary arteries. Drink 6 glasses of water (8 ounces each) over the next 24 hours. Water helps clear the dye from your body. No alcoholic beverages for 24 hours. It may interfere with healing. No exercise or sex for 5 days. Call 911 for chest pain, arm pain, nausea, neck pain, dizziness or unusual sweating AND your pain has not relieved with 2 doses of Nitroglycerin. Wrist site: Call your doctor if a lump at the puncture site enlarges or is larger than marble size. Call your doctor for numbness, tingling, or swelling of the fingers, hand or wrist. Call your doctor for increased area or bruising with discoloration extending into the arm. If bleeding occurs, hold pressure with your thumb against the puncture site and your finger againstthe back of the wrist for 10 minutes, if BLEEDING continues CALL 911. OK to shower. No tub baths, swimming pools or hot tub soaking for three days. Wash site daily with soap and water, dry gently. The healing wound should remain soft and dry. Keepsite clean and dry, no soaking of wrist for three days (no cleaning or dish washing). Remove band aid the day after procedure and leave open to air. No bending of affected wrist for 24 hours. DO NOT lift more than three pounds for 3-[address] for 24 hours. GIVE PCI PACKET (FROM HIGHWAY SAFETY ENGINEER) TO PATIENT Give Coronary Artery Discharge Booklet PLEASE CALL YOUR HEART DOCTOR IF YOU CANNOT GET YOUR MEDICATIONS. THE NUMBER IS LISTED WITH YOUR FOLLOW-UP APPOINTMENT. Procedure Sedation Instructions If you have received sedation: you must have someone drive you home You should not drive a car, operate machinery, drink alcohol or perform any activity that requires alertness for the rest of the day. The effects of the sedative should be gone by tomorrow. Blood work in 5-7 days, see orders Cardiac Rehab The Cardiac Rehab team at [facility] consists of highly skilled exercise physiologists, nurses, respiratory therapists and physicians working together with you. Our purpose is to help you have a full recovery and achieve the goals you set for yourself. Over the years many of our patients have returned to activities they assumed they would never do again! We can help restore your confidence and motivation to make lifestyle changes that can have a significant impact on your health and quality of life! We can help answer questions and concerns you may have about exercise, lifestyle, medications, diet, stress and anxiety which are common following a hospitalization. We monitor ECG and vital signs during exercise and discuss your progress with you and report to your physician. Cardiac Rehab is proven to help reduce readmissions, improve functional capacity and lower recurrence of problems with your heart. We have facilities at both [facility] and [facility]. At both locations we have street level parking which is free and our sites are easily accessible. For both [facility] you can contact us at . We invite you to call us with your questions or to get started in our program. If you have other questions or concerns be sure to ask your provider during your follow up visit. We look forward to seeing you there. Our locations: [facility] [id number] - Ground floor documented in this [facility]12-04-2024 Attending History and physical note* Sergei Collins MD - 09/30/2024 10:57 AM EST H&P reviewed. The patient was examined and there are no changes to the H&P. Source Note - BOBBY Rao CNP - 09/29/2024 2:25 PM EST Images from the original note were not included. ADDENDUM: Pt scheduled for [facility] with Dr. Collins on 09/30/24 at 11:00AM. No contrast allergy noted. GFR >60. Will check potassium level morning of procedure. Coronary Appropriate Use Criteria Coronary Presentation (select one): Worsening Angina History of CABG (select one): Yes 2013 had CABG with WRIGHT to the LAD and saphenous to the ramus. Diabetes (select one): Yes Anginal Classification (CCS) within 2 weeks (select one): CCS III - Symptoms with everyday living activities, i.e. moderate limitation Anti-anginal Meds within 2 weeks (select all that apply): Yes: Beta Blockers, Calcium Channel Blockers, Aspirin, and Statin (Any) Stress or Imaging studies performed (select one), risk/extent of ischemia (select one if applicable): No, Unavailable Patient undergoing renal transplant or percutaneous valve procedure (select one): No NYHA Classification: N/A, no history of HF Frailty Score :3 [facility] Protocol: No H+ P copied to chart from Dr. Collins's progress note dated 09/16/[address] Collins. [facility] Cardiovascular Medicine [facility] [address] [facility] [address] Dept: [phone] Dept Loc: [phone] DATE of SERVICE: 09/16/24 TIME of SERVICE: 2:42 PM DATE of : 1950 PRIMARY CARE PHYSICIAN: No primary care provider on file. Visit type: New Patient History & Subjective Chief Complaint: Chief Complaint Patient presents with New Patient History of Present Illness: Marie Hutson is a 74 y.o. 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 The patient claims he had a third vessel bypassed but his cath films appear to only show 2 bypasses. He is followed by Dr. Simeon at [facility]. He had an NSTEMI in January 2024. The WRIGHT to the LAD was patent. There is a saphenous vein graft to an upper branch of the ramus which was also patent. He has a severely stenotic and calcified distal left main as well as a severely stenotic ostial ramus. The upper branch of the ramus has an ostial stenosis and does not provide blood flow to the lower branch. There is no bypass to the circumflex orRCA. The distal RCA was stented. Apparently the patient has been having some exertional dyspnea. Dr. Simeon asked me to review the films and was wondering if I could perform stenting of the left main into the ramus with calcium modification. Currently the patient only has minor dyspnea on exertion. No chest pains. Denies any edema, orthopnea, PND, palpitations or syncope. No bleeding or bruising. History of NSTEMI as noted above. No history of rheumatic fever or heart murmur. PMH / PSH / SH/ Allergies / Meds Subjective[]Expand by Default Past Medical History: Medical History Past Medical History: Diagnosis Date Coronary artery disease Diabetes mellitus (HCC) Hyperlipidemia Hypertension Myocardial infarction (HCC) Past Surgical History Surgical History Past Surgical History: Procedure Laterality Date CORONARY ARTERY BYPASS GRAFT CORONARY STENT PLACEMENT Allergies: Allergies No Known Allergies Medications: Current Medications Current Outpatient Medications: amLODIPine (Norvasc) 10 MG tablet, Take 10 mg by mouth daily., Disp: , Rfl: aspirin 81 MG EC tablet, Take 81 mg by mouth daily., Disp: , Rfl: atorvastatin (Lipitor) 40 MG tablet, Take 40 mg by mouth daily., Disp: , Rfl: carvedilol (Coreg) 12.5 MG tablet, Take 12.5 mg by mouth 2 times daily (with meals)., Disp: , Rfl: cloNIDine (Catapres) 0.2 MG tablet, Take 0.2 mg by mouth twice a day., Disp: , Rfl: clopidogrel (Plavix) 75 MG tablet, Take 75 mg by mouth daily., Disp: , Rfl: gabapentin (Neurontin) 300 MG capsule, Take 300 mg by mouth., Disp: , Rfl: hydroCHLOROthiazide (HYDRODiuril) 25 MG tablet, Take 25 mg by mouth daily., Disp: , Rfl: lisinopril 40 MG tablet, Take 40 mg by mouth twice a day., Disp: , Rfl: metFORMIN (Glucophage) 500 MG tablet, Take 2 tablets by mouth 2 times daily (with meals)., Disp: , Rfl: metoprolol tartrate (Lopressor) 25 MG tablet, Take 12.5 mg by mouth twice a day., Disp: , Rfl: nitroglycerin (Nitrostat) 0.3 MG SL tablet, Place 0.3 mg under the tongue every 5 minutes as needed., Disp: , Rfl: Exam / Labs / Tests Objective Physical Examination: Vitals: Vitals Vitals: 09/16/24 1409 BP: 114/64 Pulse: (!) 45 Weight: 189 lb (85.7 kg) Height: 5' 10 (1.778 m) Wt Readings from Last 3 Encounters: 09/16/24 189 lb (85.7 kg) Body mass index is 27.12 kg/m . Physical Exam Constitutional: Appearance: Normal appearance. HENT: Head: Normocephalic and atraumatic. Right Ear: External ear normal. Left Ear: External ear normal. Nose: Nose normal. Mouth/Throat: Mouth: Mucous membranes are moist. Eyes: General: Right eye: No discharge. Left eye: No discharge. Neck: Vascular: No carotid bruit. Cardiovascular: Rate and Rhythm: Normal rate and regular rhythm. Heart sounds: Normal heart sounds, S1 normal and S2 normal. No murmur heard. No gallop. No S3 or S4 sounds. Pulmonary: Effort: Pulmonary effort is normal. Breath sounds: Normal breath sounds. Chest: Abdominal: General: Bowel sounds are normal. Palpations: Abdomen is soft. Tenderness: There is no abdominal tenderness. Musculoskeletal: General: No swelling or deformity. Cervical back: Neck supple. Right lower leg: No edema. Left lower leg: No edema. Skin: General: Skin is warm and dry. Coloration: Skin is not jaundiced. Neurological: Mental Status: He is alert and oriented to person, place, and time. Mental status is at baseline. Psychiatric: Mood and Affect: Mood normal. Behavior: Behavior normal. Data Reviewed Laboratory Tests: No results found for: WBC, HGB, HCT, MCV, PLT No results found for: GLUCOSE, CALCIUM, NA, K, CO2, CL, BUN, CREATININE @LASTCMP@ No results found for: TSH, L1KULYS, P2NMDCE, THYROIDAB No results found for: HGBA1C No results found for: CHOL No results found for: HDL No results found for: LDLCALC No results found for: TRIG No results found for: CHOLHDL Cardiac Tests: ECG: Encounter Date: 09/16/24 ECG 12 lead - CLINIC PERFORMED Narrative Marked sinus Bradycardia -First degree A-V block Early transition Janina = 249 BORDERLINE RHYTHM Last Echo: No results found for this or any previous visit. Last Stress Test: No results found for this or any previous visit. Last Cardiac Catheterization: No results found for this or any previous visit. Last EP Study: No results found for this or any previous visit. Last EF: No results found for: EFBP, PLVEF, LVEFPHYS, LVEF2D, EF Radiology: CXR: No orders to display Assessment and Plan HF NYHA Class [] I [] II [] III [] IV 1. Shortness of breath - ECG 12 lead - CLINIC PERFORMED 2. Coronary artery disease involving hoh coronary artery of hoh heart without angina pectoris - Case Request Qa Software Test Engineer: Left heart cath / coronary angiography w grafts - Basic metabolic panel - CBC 3. Stented coronary artery 4. S/P CABG x 3 5. Family history of chronic ischemic heart disease 6. Diabetes mellitus type 2 in nonobese (CMS/HCC) (HCC) 7. Primary hypertension 8. Mixed hyperlipidemia I have reviewed the cath films and believe that the left main is revascularizable into the ramus intermedius using intravascular lithotripsy and stenting. Once this is open and the ramus is better visualized he may need an additional stent in the mid ramus. The circumflex comes off at a 90 degree angle and will only have provisional intervention if needed. The patient is already on aspirin and Plavix and will continue same The indications, procedure, risks, benefits of the procedure including no treatment were explained to the patient who understood and wished to proceed. Consent has been obtained. Questions have been answered to the patient's satisfaction. At the patient's request we will perform this in 2 weeks which will be the week after Thanksgiving. Sergei Collins MD, RAH, FAC, [facility] It Application Architect, Department of Cardiovascular Disease Compliance Vice President, [facility] Heart and Vascular [place] Compliance Vice President, [facility] Anticoagulation Management Service Interventional Cardiology Clinical Professor of Internal Medicine, [facility] Cardiology-[place] [id number] p [phone] f [phone] [email or web address] Cosigned by Sergei Collins MD at 09/30/2024 9:57 PM EST [facility] [id number] NoteH&P reviewed. The patient was examined and there are no changes to the H&P.[facility]12-04-2024 History and physical note* Sergei Collins MD - 09/30/2024 10:57 AM EST H&P reviewed. The patient was examined and there are no changes to the H&P. Source Note - Bárbara Russell Larissaernie, MUSEUM CURATOR - SLOT SUPERVISOR - 09/29/2024 2:25 PM EST Images from the original note were not included. ADDENDUM: Pt scheduled for [facility] with Dr. Collins on 09/30/24 at 11:00AM. No contrast allergy noted. GFR >60. Will check potassium level morning of procedure. Coronary Appropriate Use Criteria Coronary Presentation (select one): Worsening Angina History of CABG (select one): Yes 2012 had CABG with WRIGHT to the LAD and saphenous to the ramus. Diabetes (select one): Yes Anginal Classification (CCS) within 2 weeks (select one): CCS III - Symptoms with everyday living activities, i.e. moderate limitation Anti-anginal Meds within 2 weeks (select all that apply): Yes: Beta Blockers, Calcium Channel Blockers, Aspirin, and Statin (Any) Stress or Imaging studies performed (select one), risk/extent of ischemia (select one if applicable): No, Unavailable Patient undergoing renal transplant or percutaneous valve procedure (select one): No NYHA Classification: N/A, no history of HF Frailty Score :3 [place] Protocol: No H+ P copied to chart from Dr. Collins's progress note dated 09/16/[address] Collins. [facility] Cardiovascular Medicine [address] [address] Dept: [phone] Dept Loc: [phone] DATE of SERVICE: 09/16/24 TIME of SERVICE: 2:42 PM DATE of : 1950 PRIMARY CARE PHYSICIAN: No primary care provider on file. Visit type: New Patient History & Subjective Chief Complaint: Chief Complaint Patient presents with New Patient History of Present Illness: Marie Hutson is a 74 y.o. 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 The patient claims he had a third vessel bypassed but his cath films appear to only show 2 bypasses. He is followed by Dr. Simeon at [facility]. He had an NSTEMI in January 2024. The WRIGHT to the LAD was patent. There is a saphenous vein graft to an upper branch of the ramus which was also patent. He has a severely stenotic and calcified distal left main as well as a severely stenotic ostial ramus. The upper branch of the ramus has an ostial stenosis and does not provide blood flow to the lower branch. There is no bypass to the circumflex orRCA. The distal RCA was stented. Apparently the patient has been having some exertional dyspnea. Dr. Simeon asked me to review the films and was wondering if I could perform stenting of the left main into the ramus with calcium modification. Currently the patient only has minor dyspnea on exertion. No chest pains. Denies any edema, orthopnea, PND, palpitations or syncope. No bleeding or bruising. History of NSTEMI as noted above. No history of rheumatic fever or heart murmur. PMH / PSH / SH/ Allergies / Meds Subjective[]Expand by Default Past Medical History: Medical History Past Medical History: Diagnosis Date Coronary artery disease Diabetes mellitus (HCC) Hyperlipidemia Hypertension Myocardial infarction (HCC) Past Surgical History Surgical History Past Surgical History: Procedure Laterality Date CORONARY ARTERY BYPASS GRAFT CORONARY STENT PLACEMENT Allergies: Allergies No Known Allergies Medications: Current Medications Current Outpatient Medications: amLODIPine (Norvasc) 10 MG tablet, Take 10 mg by mouth daily., Disp: , Rfl: aspirin 81 MG EC tablet, Take 81 mg by mouth daily., Disp: , Rfl: atorvastatin (Lipitor) 40 MG tablet, Take 40 mg by mouth daily., Disp: , Rfl: carvedilol (Coreg) 12.5 MG tablet, Take 12.5 mg by mouth 2 times daily (with meals)., Disp: , Rfl: cloNIDine (Catapres) 0.2 MG tablet, Take 0.2 mg by mouth twice a day., Disp: , Rfl: clopidogrel (Plavix) 75 MG tablet, Take 75 mg by mouth daily., Disp: , Rfl: gabapentin (Neurontin) 300 MG capsule, Take 300 mg by mouth., Disp: , Rfl: hydroCHLOROthiazide (HYDRODiuril) 25 MG tablet, Take 25 mg by mouth daily., Disp: , Rfl: lisinopril 40 MG tablet, Take 40 mg by mouth twice a day., Disp: , Rfl: metFORMIN (Glucophage) 500 MG tablet, Take 2 tablets by mouth 2 times daily (with meals)., Disp: , Rfl: metoprolol tartrate (Lopressor) 25 MG tablet, Take 12.5 mg by mouth twice a day., Disp: , Rfl: nitroglycerin (Nitrostat) 0.3 MG SL tablet, Place 0.3 mg under the tongue every 5 minutes as needed., Disp: , Rfl: Exam / Labs / Tests Objective Physical Examination: Vitals: Vitals Vitals: 09/16/24 1409 BP: 114/64 Pulse: (!) 45 Weight: 189 lb (85.7 kg) Height: 5' 10 (1.778 m) Wt Readings from Last 3 Encounters: 09/16/24 189 lb (85.7 kg) Body mass index is 27.12 kg/m . Physical Exam Constitutional: Appearance: Normal appearance. HENT: Head: Normocephalic and atraumatic. Right Ear: External ear normal. Left Ear: External ear normal. Nose: Nose normal. Mouth/Throat: Mouth: Mucous membranes are moist. Eyes: General: Right eye: No discharge. Left eye: No discharge. Neck: Vascular: No carotid bruit. Cardiovascular: Rate and Rhythm: Normal rate and regular rhythm. Heart sounds: Normal heart sounds, S1 normal and S2 normal. No murmur heard. No gallop. No S3 or S4 sounds. Pulmonary: Effort: Pulmonary effort is normal. Breath sounds: Normal breath sounds. Chest: Abdominal: General: Bowel sounds are normal. Palpations: Abdomen is soft. Tenderness: There is no abdominal tenderness. Musculoskeletal: General: No swelling or deformity. Cervical back: Neck supple. Right lower leg: No edema. Left lower leg: No edema. Skin: General: Skin is warm and dry. Coloration: Skin is not jaundiced. Neurological: Mental Status: He is alert and oriented to person, place, and time. Mental status is at baseline. Psychiatric: Mood and Affect: Mood normal. Behavior: Behavior normal. Data Reviewed Laboratory Tests: No results found for: WBC, HGB, HCT, MCV, PLT No results found for: GLUCOSE, CALCIUM, NA, K, CO2, CL, BUN, CREATININE @LASTCMP@ No results found for: TSH, Q2ZEIIQ, Q5UJVNL, THYROIDAB No results found for: HGBA1C No results found for: CHOL No results found for: HDL No results found for: LDLCALC No results found for: TRIG No results found for: CHOLHDL Cardiac Tests: ECG: Encounter Date: 09/16/24 ECG 12 lead - CLINIC PERFORMED Narrative Marked sinus Bradycardia -First degree A-V block Early transition Janina = 249 BORDERLINE RHYTHM Last Echo: No results found for this or any previous visit. Last Stress Test: No results found for this or any previous visit. Last Cardiac Catheterization: No results found for this or any previous visit. Last EP Study: No results found for this or any previous visit. Last EF: No results found for: EFBP, PLVEF, LVEFPHYS, LVEF2D, EF Radiology: CXR: No orders to display Assessment and Plan HF NYHA Class [] I [] II [] III [] IV 1. Shortness of breath - ECG 12 lead - CLINIC PERFORMED 2. Coronary artery disease involving hoh coronary artery of hoh heart without angina pectoris - Case Request Qa Software Test Engineer: Left heart cath / coronary angiography w grafts - Basic metabolic panel - CBC 3. Stented coronary artery 4. S/P CABG x 3 5. Family history of chronic ischemic heart disease 6. Diabetes mellitus type 2 in nonobese (CMS/HCC) ([facility]) 7. Primary hypertension 8. Mixed hyperlipidemia I have reviewed the cath films and believe that the left main is revascularizable into the ramus intermedius using intravascular lithotripsy and stenting. Once this is open and the ramus is better visualized he may need an additional stent in the mid ramus. The circumflex comes off at a 90 degree angle and will only have provisional intervention if needed. The patient is already on aspirin and Plavix and will continue same The indications, procedure, risks, benefits of the procedure including no treatment were explained to the patient who understood and wished to proceed. Consent has been obtained. Questions have been answered to the patient's satisfaction. At the patient's request we will perform this in 2 weeks which will be the week after Thanksgiving. Sergei Collins MD, RAH, FACC, [facility] It Application Architect, Department of Cardiovascular Disease Compliance Vice President, [facility] Heart and Vascular [place] Compliance Vice President, [facility] Anticoagulation Management Service Interventional Cardiology Clinical Professor of Internal Medicine, [facility] Cardiology-[address] [place] [address] p [phone] f [phone] [email or web address] Cosigned by Sergei Collins MD at 09/30/2024 9:57 PM EST documented in this [facility]12-04-2024 Note* Pre-Sedation Documentation - Sergei Collins MD - 09/30/2024 10:55 AM EST Sedation Plan ASA class 3 - patient with severe systemic disease Mallampati class: III - soft palate, base of uvula visible. Sedation plan: local anesthesia and moderate (conscious sedation) Risks, benefits, and alternatives discussed with patient. Use of blood products discussed with patient who consented to blood products. Plan discussed with fellow. Immediate reassessment prior to sedation: Patient's status reviewed and vital signs assessed; acceptable to perform procedure and proceed to administer sedation as planned. [facility] [id number] Note* Pre-Sedation Documentation - Sergei Collins MD - 09/30/2024 10:55 AM EST Sedation Plan ASA class 3 - patient with severe systemic disease Mallampati class: III - soft palate, base of uvula visible. Sedation plan: local anesthesia and moderate (conscious sedation) Risks, benefits, and alternatives discussed with patient. Use of blood products discussed with patient who consented to blood products. Plan discussed with fellow. Immediate reassessment prior to sedation: Patient's status reviewed and vital signs assessed; acceptable to perform procedure and proceed to administer sedation as planned. [facility] [id number] Miscellaneous Notes* Pre-Sedation Documentation - Sergei Collins MD - 09/30/2024 10:55 AM EST Sedation Plan ASA class 3 - patient with severe systemic disease Mallampati class: III - soft palate, base of uvula visible. Sedation plan: local anesthesia and moderate (conscious sedation) Risks, benefits, and alternatives discussed with patient. Use of blood products discussed with patient who consented to blood products. Plan discussed with fellow. Immediate reassessment prior to sedation: Patient's status reviewed and vital signs assessed; acceptable to perform procedure and proceed to administer sedation as planned. documented in this [facility]12-03-2024 NoteADDENDUM: Pt scheduled for [facility] with Dr. Collins on 09/30/24 at 11:00AM. No contrast allergy noted. GFR >60. Will check potassium level morning of procedure. Coronary Appropriate Use Criteria Coronary Presentation (select one): Worsening Angina History of CABG (select one): Yes 2013 had CABG with WRIGHT to the LAD and saphenous to the ramus. Diabetes (select one): Yes Anginal Classification (CCS) within 2 weeks (select one): CCS III - Symptoms with everyday living activities, i.e. moderate limitation Anti-anginal Meds within 2 weeks (select all that apply): Yes: Beta Blockers, Calcium Channel Blockers, Aspirin, and Statin (Any) Stress or Imaging studies performed (select one), risk/extent of ischemia (select one if applicable): No, Unavailable Patient undergoing renal transplant or percutaneous valve procedure (select one): No NYHA Classification: N/A, no history of HF Frailty Score :3 [place] Protocol: No H+ P copied to chart from Dr. Collins's progress note dated 09/16/[address] Collins. [facility] Cardiovascular Medicine [address] [address] Dept: [phone] Dept Loc: [phone] DATE of SERVICE: 09/16/24 TIME of SERVICE: 2:42 PM DATE of : 1950 PRIMARY CARE PHYSICIAN: No primary care provider on file. Visit type: New Patient History & Subjective Chief Complaint: Chief Complaint Patient presents with New Patient History of Present Illness: Marie Hutson is a 74 y.o. 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 The patient claims he had a third vessel bypassed but his cath films appear to only show 2 bypasses. He is followed by Dr. Simeon at [facility]. He had an NSTEMI in January 2024. The WRIGHT to the LAD was patent. There is a saphenous vein graft to an upper branch of the ramus which was also patent. He has a severely stenotic and calcified distal left main as well as a severely stenotic ostial ramus. The upper branch of the ramus has an ostial stenosis and does not provide blood flow to the lower branch. There is no bypass to the circumflex or RCA. The distal RCA was stented. Apparently the patient has been having some exertional dyspnea. Dr. Simeon asked me to review the films and was wondering if I could perform stenting of the left main into the ramus with calcium modification. Currently the patient only has minor dyspnea on exertion. No chest pains. Denies any edema, orthopnea, PND, palpitations or syncope. No bleeding or bruising. History of NSTEMI as noted above. No history of rheumatic fever or heart murmur. PMH / PSH / SH/ Allergies / Meds Subjective[]Expand by Default Past Medical History: Medical History Past Medical History: Diagnosis Date Coronary artery disease Diabetes mellitus (HCC) Hyperlipidemia Hypertension Myocardial infarction (HCC) Past Surgical History Surgical History Past Surgical History: Procedure Laterality Date CORONARY ARTERY BYPASS GRAFT CORONARY STENT PLACEMENT Allergies: Allergies No Known Allergies Medications: Current Medications Current Outpatient Medications: amLODIPine (Norvasc) 10 MG tablet, Take 10 mg by mouth daily., Disp: , Rfl: aspirin 81 MG EC tablet, Take 81 mg by mouth daily., Disp: , Rfl: atorvastatin (Lipitor) 40 MG tablet, Take 40 mg by mouth daily., Disp: , Rfl: carvedilol (Coreg) 12.5 MG tablet, Take 12.5 mg by mouth 2 times daily (with meals)., Disp: , Rfl: cloNIDine (Catapres) 0.2 MG tablet, Take 0.2 mg by mouth twice a day., Disp: , Rfl: clopidogrel (Plavix) 75 MG tablet, Take 75 mg by mouth daily., Disp: , Rfl: gabapentin (Neurontin) 300 MG capsule, Take 300 mg by mouth., Disp: , Rfl: hydroCHLOROthiazide (HYDRODiuril) 25 MG tablet, Take 25 mg by mouth daily., Disp: , Rfl: lisinopril 40 MG tablet, Take 40 mg by mouth twice a day., Disp: , Rfl: metFORMIN (Glucophage) 500 MG tablet, Take 2 tablets by mouth 2 times daily (with meals)., Disp: , Rfl: metoprolol tartrate (Lopressor) 25 MG tablet, Take 12.5 mg by mouth twice a day., Disp: , Rfl: nitroglycerin (Nitrostat) 0.3 MG SL tablet, Place 0.3 mg under the tongue every 5 minutes as needed., Disp: , Rfl: Exam / Labs / Tests Objective Physical Examination: Vitals: Vitals Vitals: 09/16/24 1409 BP: 114/64 Pulse: (!) 45 Weight: 189 lb (85.7 kg) Height: 5' 10 (1.778 m) Wt Readings from Last 3 Encounters: 09/16/24 189 lb (85.7 kg) Body mass index is 27.12 kg/m?. Physical Exam Constitutional: Appearance: Normal appearance. HENT: Head: Normocephalic and atraumatic. Right Ear: External ear normal. Left Ear: External ear normal. Nose: Nose normal. Mouth/Throat: (more content not included)...[facility] [facility] NoteADDENDUM: Pt scheduled for LHC with Dr. Collins on 09/30/24 at 11:00AM. No contrast allergy noted. GFR >60. Will check potassium level morning of procedure. Coronary Appropriate Use Criteria Coronary Presentation (select one): Worsening Angina History of CABG (select one): Yes 2012 had CABG with WRIGHT to the LAD and saphenous to the ramus. Diabetes (select one): Yes Anginal Classification (CCS) within 2 weeks (select one): CCS III - Symptoms with everyday living activities, i.e. moderate limitation Anti-anginal Meds within 2 weeks (select all that apply): Yes: Beta Blockers, Calcium Channel Blockers, Aspirin, and Statin (Any) Stress or Imaging studies performed (select one), risk/extent of ischemia (select one if applicable): No, Unavailable Patient undergoing renal transplant or percutaneous valve procedure (select one): No NYHA Classification: N/A, no history of HF Frailty Score :3 [facility] Protocol: No H+ P copied to chart from Dr. Collins's progress note dated 09/16/[address] Collins. [facility] Cardiovascular Medicine [facility] [address] [facility] [address] Dept: [phone] Dept Loc: [phone] DATE of SERVICE: 09/16/24 TIME of SERVICE: 2:42 PM DATE of : 1950 PRIMARY CARE PHYSICIAN: No primary care provider on file. Visit type: New Patient History & Subjective Chief Complaint: Chief Complaint Patient presents with New Patient History of Present Illness: Marie Hutson is a 74 y.o. 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 The patient claims he had a third vessel bypassed but his cath films appear to only show 2 bypasses. He is followed by Dr. Simeon at [facility]. He had an NSTEMI in January 2024. The WRIGHT to the LAD was patent. There is a saphenous vein graft to an upper branch of the ramus which was also patent. He has a severely stenotic and calcified distal left main as well as a severely stenotic ostial ramus. The upper branch of the ramus has an ostial stenosis and does not provide blood flow to the lower branch. There is no bypass to the circumflex or RCA. The distal RCA was stented. Apparently the patient has been having some exertional dyspnea. Dr. Simeon asked me to review the films and was wondering if I could perform stenting of the left main into the ramus with calcium modification. Currently the patient only has minor dyspnea on exertion. No chest pains. Denies any edema, orthopnea, PND, palpitations or syncope. No bleeding or bruising. History of NSTEMI as noted above. No history of rheumatic fever or heart murmur. PMH / PSH / SH/ Allergies / Meds Subjective[]Expand by Default Past Medical History: Medical History Past Medical History: Diagnosis Date Coronary artery disease Diabetes mellitus (HCC) Hyperlipidemia Hypertension Myocardial infarction (HCC) Past Surgical History Surgical History Past Surgical History: Procedure Laterality Date CORONARY ARTERY BYPASS GRAFT CORONARY STENT PLACEMENT Allergies: Allergies No Known Allergies Medications: Current Medications Current Outpatient Medications: amLODIPine (Norvasc) 10 MG tablet, Take 10 mg by mouth daily., Disp: , Rfl: aspirin 81 MG EC tablet, Take 81 mg by mouth daily., Disp: , Rfl: atorvastatin (Lipitor) 40 MG tablet, Take 40 mg by mouth daily., Disp: , Rfl: carvedilol (Coreg) 12.5 MG tablet, Take 12.5 mg by mouth 2 times daily (with meals)., Disp: , Rfl: cloNIDine (Catapres) 0.2 MG tablet, Take 0.2 mg by mouth twice a day., Disp: , Rfl: clopidogrel (Plavix) 75 MG tablet, Take 75 mg by mouth daily., Disp: , Rfl: gabapentin (Neurontin) 300 MG capsule, Take 300 mg by mouth., Disp: , Rfl: hydroCHLOROthiazide (HYDRODiuril) 25 MG tablet, Take 25 mg by mouth daily., Disp: , Rfl: lisinopril 40 MG tablet, Take 40 mg by mouth twice a day., Disp: , Rfl: metFORMIN (Glucophage) 500 MG tablet, Take 2 tablets by mouth 2 times daily (with meals)., Disp: , Rfl: metoprolol tartrate (Lopressor) 25 MG tablet, Take 12.5 mg by mouth twice a day., Disp: , Rfl: nitroglycerin (Nitrostat) 0.3 MG SL tablet, Place 0.3 mg under the tongue every 5 minutes as needed., Disp: , Rfl: Exam / Labs / Tests Objective Physical Examination: Vitals: Vitals Vitals: 09/16/24 1409 BP: 114/64 Pulse: (!) 45 Weight: 189 lb (85.7 kg) Height: 5' 10 (1.778 m) Wt Readings from Last 3 Encounters: 11/20/24 189 lb (85.7 kg) Body mass index is 27.12 kg/m?. Physical Exam Constitutional: Appearance: Normal appearance. HENT: Head: Normocephalic and atraumatic. Right Ear: External ear normal. Left Ear: External ear normal. Nose: Nose normal. Mouth/Throat: (more content not included)...[facility]11-20-2024 NoteDx: CAD Procedure: [facility] Date/Time: 09/30/24 at 11am Surgeon: Karina Location: [facility] Admission: OUTPATIENT Patient is aware of date and time of procedure, added to [place] calendar, CATH placed on [facility]11-20-2024 History of Present illness Narrative* Sergei Collins MD - 09/16/2024 2:00 PM EST Images from the original note were not included. [facility] Cardiovascular Medicine [facility] [address] [facility] [address] Dept: [phone] Dept Loc: [phone] DATE of SERVICE: 09/16/24 TIME of SERVICE: 2:42 PM DATE of : 1950 PRIMARY CARE PHYSICIAN: No primary care provider on file. Visit type: New Patient History & Subjective Chief Complaint: Chief Complaint Patient presents with New Patient History of Present Illness: Marie Hutson is a 74 y.o. 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 The patient claims he had a third vessel bypassed but his cath films appear to only show 2 bypasses. He is followed by Dr. Simeon at [facility]. He had an NSTEMI in January 2024. The WRIGHT to the LAD was patent. There is a saphenous vein graft to an upper branch of the ramus which was also patent. He has a severely stenotic and calcified distal left main as well as a severely stenotic ostial ramus. The upper branch of the ramus has an ostial stenosis and does not provide blood flow to the lower branch. There is no bypass to the circumflex orRCA. The distal RCA was stented. Apparently the patient has been having some exertional dyspnea. Dr. Simeon asked me to review the films and was wondering if I could perform stenting of the left main into the ramus with calcium modification. Currently the patient only has minor dyspnea on exertion. No chest pains. Denies any edema, orthopnea, PND, palpitations or syncope. No bleeding or bruising. History of NSTEMI as noted above. No history of rheumatic fever or heart murmur. PMH / PSH / SH/ Allergies / Meds Subjective Past Medical History: Past Medical History: Diagnosis Date Coronary artery disease Diabetes mellitus (HCC) Hyperlipidemia Hypertension Myocardial infarction (HCC) Past Surgical History Past Surgical History: Procedure Laterality Date CORONARY ARTERY BYPASS GRAFT CORONARY STENT PLACEMENT Allergies: No Known Allergies Medications: Current Outpatient Medications: amLODIPine (Norvasc) 10 MG tablet, Take 10 mg by mouth daily., Disp: , Rfl: aspirin 81 MG EC tablet, Take 81 mg by mouth daily., Disp: , Rfl: atorvastatin (Lipitor) 40 MG tablet, Take 40 mg by mouth daily., Disp: , Rfl: carvedilol (Coreg) 12.5 MG tablet, Take 12.5 mg by mouth 2 times daily (with meals)., Disp: , Rfl: cloNIDine (Catapres) 0.2 MG tablet, Take 0.2 mg by mouth twice a day., Disp: , Rfl: clopidogrel (Plavix) 75 MG tablet, Take 75 mg by mouth daily., Disp: , Rfl: gabapentin (Neurontin) 300 MG capsule, Take 300 mg by mouth., Disp: , Rfl: hydroCHLOROthiazide (HYDRODiuril) 25 MG tablet, Take 25 mg by mouth daily., Disp: , Rfl: lisinopril 40 MG tablet, Take 40 mg by mouth twice a day., Disp: , Rfl: metFORMIN (Glucophage) 500 MG tablet, Take 2 tablets by mouth 2 times daily (with meals)., Disp: , Rfl: metoprolol tartrate (Lopressor) 25 MG tablet, Take 12.5 mg by mouth twice a day., Disp: , Rfl: nitroglycerin (Nitrostat) 0.3 MG SL tablet, Place 0.3 mg under the tongue every 5 minutes as needed., Disp: , Rfl: Exam / Labs / Tests Objective Physical Examination: Vitals: Vitals: 09/16/24 1409 BP: 114/64 Pulse: (!) 45 Weight: 189 lb (85.7 kg) Height: 5' 10 (1.778 m) Wt Readings from Last 3 Encounters: 09/16/24 189 lb (85.7 kg) Body mass index is 27.12 kg/m . Physical Exam Constitutional: Appearance: Normal appearance. HENT: Head: Normocephalic and atraumatic. Right Ear: External ear normal. Left Ear: External ear normal. Nose: Nose normal. Mouth/Throat: Mouth: Mucous membranes are moist. Eyes: General: Right eye: No discharge. Left eye: No discharge. Neck: Vascular: No carotid bruit. Cardiovascular: Rate and Rhythm: Normal rate and regular rhythm. Heart sounds: Normal heart sounds, S1 normal and S2 normal. No murmur heard. No gallop. No S3 or S4 sounds. Pulmonary: Effort: Pulmonary effort is normal. Breath sounds: Normal breath sounds. Chest: Abdominal: General: Bowel sounds are normal. Palpations: Abdomen is soft. Tenderness: There is no abdominal tenderness. Musculoskeletal: General: No swelling or deformity. Cervical back: Neck supple. Right lower leg: No edema. Left lower leg: No edema. Skin: General: Skin is warm and dry. Coloration: Skin is not jaundiced. Neurological: Mental Status: He is alert and oriented to person, place, and time. Mental status is at baseline. Psychiatric: Mood and Affect: Mood normal. Behavior: Behavior normal. Data Reviewed Laboratory Tests: No results found for: WBC, HGB, HCT, MCV, PLT No results found for: GLUCOSE, CALCIUM, NA, K, CO2, CL, BUN, CREATININE @LASTCMP@ No results found for: TSH, K7EKLKJ, Z1HNIZM, THYROIDAB No results found for: HGBA1C No results found for: CHOL No results found for: HDL No results found for: LDLCALC No results found for: TRIG No results found for: CHOLHDL Cardiac Tests: ECG: Encounter Date: 09/16/24 ECG 12 lead - CLINIC PERFORMED Narrative Marked sinus Bradycardia -First degree A-V block Early transition Janina = 249 BORDERLINE RHYTHM Last Echo: No results found for this or any previous visit. Last Stress Test: No results found for this or any previous visit. Last Cardiac Catheterization: No results found for this or any previous visit. Last EP Study: No results found for this or any previous visit. Last EF: No results found for: EFBP, PLVEF, LVEFPHYS, LVEF2D, EF Radiology: CXR: No orders to display Assessment and Plan HF NYHA Class [] I [] II [] III [] IV 1. Shortness of breath - ECG 12 lead - CLINIC PERFORMED 2. Coronary artery disease involving hoh coronary artery of hoh heart without angina pectoris - Case Request Qa Software Test Engineer: Left heart cath / coronary angiography w grafts - Basic metabolic panel - CBC 3. Stented coronary artery 4. S/P CABG x 3 5. Family history of chronic ischemic heart disease 6. Diabetes mellitus type 2 in nonobese (CMS/HCC) (HCC) 7. Primary hypertension 8. Mixed hyperlipidemia I have reviewed the cath films and believe that the left main is revascularizable into the ramus intermedius using intravascular lithotripsy and stenting. Once this is open and the ramus is better visualized he may need an additional stent in the mid ramus. The circumflex comes off at a 90 degree angle and will only have provisional intervention if needed. The patient is already on aspirin and Plavix and will continue same The indications, procedure, risks, benefits of the procedure including no treatment were explained to the patient who understood and wished to proceed. Consent has been obtained. Questions have been answered to the patient's satisfaction. At the patient's request we will perform this in 2 weeks which will be the week after Thanksgiving. Sergei Collins MD, RAH, [facility], [facility] It Application Architect, Department of Cardiovascular Disease Compliance Vice President, [facility] V[facility] [place] Compliance Vice President, [facility] Anticoagulation Management Service Interventional Cardiology Clinical Professor of Internal Medicine, [facility] Cardiology-[address] [address] p [phone] f [phone] [email or web address] Disclaimer Captured images seen in this note from are not a substitute for a comprehensive interpretation of the entire data set as reflected by the interpreting physician with regard to radiology, echocardiography, and other diagnostic images. This note may have been dictated using [employer] Practice Edition 2.6 and/or [employer] Voice Recognition Feature. The document was proofread, however unrecognized voice recognition picking machine operator errors may be present. documented in this [facility]11-19-2024 Telephone encounter Note* Telephone Encounter - Suellen Donovan RN - 09/15/2024 11:01 AM EST Patient calls and states that choke reamer had changed his medications. Patient is not taking hydrochlorothiazide 25 mg daily and Atorvastatin 40 mg daily (patient was previously on 80 mg). Suellen Donovan RN [facility]11-19-2024 Miscellaneous Notes* Telephone Encounter - Suellen Donovan RN - 09/15/2024 11:01 AM EST Patient calls and states that choke reamer had changed his medications. Patient is not taking hydrochlorothiazide 25 mg daily and Atorvastatin 40 mg daily (patient was previously on 80 mg). Suellen Donovan RN documented [facility] [place] Telephone encounter Note * Telephone Encounter - Suellen Donovan RN - 09/15/2024 10:41 AM EST Patient notified of results and provider's instructions. Patient verbalizes understanding. Suellen Donovan RN [facility]11-19-2024 Miscellaneous Notes* Telephone Encounter - Suellen Donovan RN - 09/15/2024 10:41 AM EST Patient notified of results and provider's instructions. Patient verbalizes understanding. Suellen Donovan RN * Telephone Encounter - Chloé Hernández RN - 09/15/2024 9:11 AM EST Called and left a voicemail for the patient to call back and ask for a nurse to receive the providers message. Also sent MyChart msg * Telephone Encounter - Palak Rosales LPN - 09/14/2024 1:18 PM EST Left message to call & speak to nurse re: results. Palak Rosales LPN * Telephone Encounter - Palak Rosales LPN - 09/14/2024 1:16 PM EST ----- Message from Sher Jules MD sent at 09/13/2024 2:02 PM EST ----- Hyponatremia. Hyperkalemia. Mild anemia. Follow up lab tests needed. Please do in 2-3 weeks. documented in this [facility] [place] Telephone encounter Note * Telephone Encounter - Chloé Hernández RN - 09/15/2024 9:11 AM EST Called and left a voicemail for the patient to call back and ask for a nurse to receive the providers message. Also sent MyChart msg [facility]11-18-2024 Telephone encounter Note* Telephone Encounter - Paalk Rosales LPN - 09/14/2024 1:18 PM EST Left message to call & speak to nurse re: results. Palak Rosales LPN [facility]11-18-2024 Telephone encounter Note* Telephone Encounter - Palak Rosales LPN - 09/14/2024 1:16 PM EST ----- Message from Sher Jules MD sent at 09/13/2024 2:02 PM EST ----- Hyponatremia. Hyperkalemia. Mild anemia. Follow up lab tests needed. Please do in 2-3 weeks. [facility]11-15-2024 NoteHNO ID: [id number] Author: SHER JULES MD Service: ? Author Type: Physician Type: Progress Notes Filed: 09/11/2024 12:11 Note Text: This note was created using [employer] Subjective Patient presents with: 6 Month Exam Marie Hutson is a 74 year old male. He was admitted in January for NSTEMI and had LISANDRO to the distal RCA. [facility]. His metoprolol was decreased to 12.5 mg BID due to bradycardia. His hypertension had been elevating. Diabetes was controlled. He was scheduled to see [facility] next week for a follow up. Review of Systems Constitutional: Negative for fatigue and fever. Respiratory: Negative for cough, chest tightness and shortness of breath. Cardiovascular: Negative for chest pain, palpitations and leg swelling. Gastrointestinal: Negative. Neurological: Negative for dizziness and headaches. 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 Obesity, Class I, Bmi 30-34.9 Social History Tobacco Use Smoking status: Former Current packs/day: 0.00 Average packs/day: 1 pack/day for 34.0 years (34.0 ttl pk-yrs) Types: Cigarettes Start date: 10/28/1968 Quit date: 10/28/2002 Years since quittin.8 Passive exposure: Past Smokeless tobacco: Never Vaping Use Vaping status: Never Used Substance Use Topics Alcohol use: Yes Alcohol/week: 30.0 standard drinks of alcohol Types: 30 Cans of Beer (12oz) per week Comment: 6 beers per day, sometimes less Drug use: Yes Frequency: 2.0 times per week Comment: marijuana Current Outpatient Medications Medication Sig atorvastatin (LIPITOR) 80 mg tablet Take 1 tablet by mouth daily at bedtime. For cholesterol. gabapentin (NEURONTIN) 300 mg capsule Take 1 capsule by mouth daily at bedtime for 180 days. nitroglycerin sublingual (NITROQUICK) 0.3 mg SL tablet Dissolve 1 tablet under the tongue every 5 minutes as needed for chest pain. metFORMIN (GLUCOPHAGE) 500 mg tablet Take 2 tablets by mouth two times a day with meals. clopidogrel (PLAVIX) 75 mg tablet Take 1 tablet by mouth once daily. lisinopril (ZESTRIL) 40 mg tablet Take 1 tablet by mouth two times a day. amLODIPine (NORVASC) 10 mg tablet Take 1 tablet by mouth once daily. cloNIDine HCl (CATAPRES) 0.2 mg tablet Take 1 tablet by mouth two times a day. aspirin, enteric coated (ASPIRIN, ENTERIC COATED) 81 mg EC tablet Take 1 tablet by mouth once daily. therapeutic multivitamin tablet Take 1 tablet by mouth daily with breakfast. blood sugar diagnostic (ONE TOUCH ULTRA TEST) test strip Use as instructed blood sugar diagnostic (ONE TOUCH ULTRA TEST) test strip TEST BLOOD SUGARS ONCE DAILY lancets(ONE TOUCH ULTRASOFT LANCETS) Test blood sugar once daily. metoprolol tartrate, short acting, (LOPRESSOR) 25 mg tablet Take 0.5 tablets by mouth two times a day. No current facility-administered medications for this visit. Objective BP 149/68 (BP Site: Right Arm) Pulse (!) 46 Temp 36.2 ?C (97.2 ?F) Ht 177.8 cm (5' 10) Wt 87.9 kg (193 lb 12.6 oz) SpO2 99% BMI 27.81 kg/m? Physical Exam Constitutional: Appearance: Normal appearance. Cardiovascular: Rate and Rhythm: Regular rhythm. Bradycardia present. Heart sounds: No murmur heard. No gallop. Pulmonary: Breath sounds: Normal breath sounds. Abdominal: Tenderness: There is no abdominal tenderness. Musculoskeletal: Right lower leg: No edema. Left lower leg: No edema. Neurological: Mental Status: He is alert. Feet:Shoes and socks removed, No deformities, ulcers, calluses, abnormal pulses Decreased bilaterally, not sensitive to monofilament in both forefeet, and nails notable for Deformed, Hypertrophic, or Yellowish Assessment and Plan ASSESSMENT/PLAN: 1. Coronary artery disease involving hoh coronary artery of hoh heart without angina pectoris - ICD9: 414.01, ICD10: I25.10 (primary diagnosis) Stable. 2. Stented coronary artery - ICD9: V45.82, ICD10: Z95.5 Colonoscopy deferred till January 2025. 3. Essential hypertension - ICD9: 401.9, ICD10: I10 - Worsening control - Continue current medications - Reviewed risks of hypertension and principles of treatment - I defer to his choke reamer. - COMPLETE BLOOD COUNT 4. Hyperlipidemia with target LDL less than 70 - ICD9: 272.4, ICD10: E78.5 - Control undetermined, due for labs - Continue current medications - COMPREHENSIVE METABOLIC PANEL - LIPID PANEL, NONFASTING 5. Well controlled type 2 diabetes mellitus with neurological manifestations (more content not included)...[facility]11-15-2024 History of Present illness Narrative* Sher Jules MD - 09/11/2024 11:16 AM EST This note was created using [employer]. Subjective Patient presents with: 6 Month Exam Marie Hutson is a 74 year old male. He was admitted in January for NSTEMI and had LISANDRO to the distalRCA. [facility]. His metoprolol was decreased to12.5 mg BID due to bradycardia. His hypertension had been elevating. Diabetes was controlled. He was scheduled to see [facility] week for a follow up. Review of Systems Constitutional: Negative for fatigue and fever. Respiratory: Negative for cough, chest tightness and shortness of breath. Cardiovascular: Negative for chest pain, palpitations and leg swelling. Gastrointestinal: Negative. Neurological: Negative for dizziness and headaches. 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 Obesity, Class I, Bmi 30-34.9 Social History Tobacco Use Smoking status: Former Current packs/day: 0.00 Average packs/day: 1 pack/day for 34.0 years (34.0 ttl pk-yrs) Types: Cigarettes Start date: 10/28/1968 Quit date: 10/28/2002 Years since quittin.8 Passive exposure: Past Smokeless tobacco: Never Vaping Use Vaping status: Never Used Substance Use Topics Alcohol use: Yes Alcohol/week: 30.0 standard drinks of alcohol Types: 30 Cans of Beer (12oz) per week Comment: 6 beers per day, sometimes less Drug use: Yes Frequency: 2.0 times per week Comment: marijuana Current Outpatient Medications Medication Sig atorvastatin (LIPITOR) 80 mg tablet Take 1 tablet by mouth daily at bedtime. For cholesterol. gabapentin (NEURONTIN) 300 mg capsule Take 1 capsule by mouth daily at bedtime for 180 days. nitroglycerin sublingual (NITROQUICK) 0.3 mg SL tablet Dissolve 1 tablet under the tongue every 5 minutes as needed for chest pain. metFORMIN (GLUCOPHAGE) 500 mg tablet Take 2 tablets by mouth two times a day with meals. clopidogrel (PLAVIX) 75 mg tablet Take 1 tablet by mouth once daily. lisinopril (ZESTRIL) 40 mg tablet Take 1 tablet by mouth two times a day. amLODIPine (NORVASC) 10 mg tablet Take 1 tablet by mouth once daily. cloNIDine HCl (CATAPRES) 0.2 mg tablet Take 1 tablet by mouth two times a day. aspirin, enteric coated (ASPIRIN, ENTERIC COATED) 81 mg EC tablet Take 1 tablet by mouth once daily. therapeutic multivitamin tablet Take 1 tablet by mouth daily with breakfast. blood sugar diagnostic (ONE TOUCH ULTRA TEST) test strip Use as instructed blood sugar diagnostic (ONE TOUCH ULTRA TEST) test strip TEST BLOOD SUGARS ONCE DAILY lancets(ONE TOUCH ULTRASOFT LANCETS) Test blood sugar once daily. metoprolol tartrate, short acting, (LOPRESSOR) 25 mg tablet Take 0.5 tablets by mouth two times a day. No current facility-administered medications for this visit. Objective BP 149/68 (BP Site: Right Arm) Pulse (!) 46 Temp 36.2 C (97.2 F) Ht 177.8 cm (5' 10) Wt 87.9 kg (193 lb 12.6 oz) SpO2 99% BMI 27.81 kg/m Physical Exam Constitutional: Appearance: Normal appearance. Cardiovascular: Rate and Rhythm: Regular rhythm. Bradycardia present. Heart sounds: No murmur heard. No gallop. Pulmonary: Breath sounds: Normal breath sounds. Abdominal: Tenderness: There is no abdominal tenderness. Musculoskeletal: Right lower leg: No edema. Left lower leg: No edema. Neurological: Mental Status: He is alert. Feet:Shoes and socks removed, No deformities, ulcers, calluses, abnormal pulses Decreased bilaterally, not sensitive to monofilament in both forefeet, and nails notable for Deformed, Hypertrophic, orYellowish Assessment and Plan ASSESSMENT/PLAN: 1. Coronary artery disease involving hoh coronary artery of hoh heart without angina pectoris- ICD9: 414.01, ICD10: I25.10 (primary diagnosis) Stable. 2. Stented coronary artery - ICD9: V45.82, ICD10: Z95.5 Colonoscopy deferred till January 2025. 3. Essential hypertension - ICD9: 401.9, ICD10: I10 - Worsening control - Continue current medications - Reviewed risks of hypertension and principles of treatment - I defer to his choke reamer. - COMPLETE BLOOD COUNT 4. Hyperlipidemia with target LDL less than 70 - ICD9: 272.4, ICD10: E78.5 - Control undetermined, due for labs - Continue current medications - COMPREHENSIVE METABOLIC PANEL - LIPID PANEL, NONFASTING 5. Well controlled type 2 diabetes mellitus with neurological manifestations (HCC) - ICD9: 250.60, ICD10: E11.49 Peripheral neuropathy stable. - Continue current medications - HEMOGLOBIN A1C - ALBUMIN/CREATININE RATIO, URINE Sher Jules MD documented in this encounter[facility] [place] Telephone encounter Note * Telephone Encounter - Jayson Lovell MA - 07/03/2024 11:30 AM EDT Prescription Refill Information The patient has been identified by name and date of : Yes Caregiver verified no other encounters exist for this prescription request: Yes Caregiver confirmed with patient/requestor that no other refills are due, in the near future, with this provider at this time: Yes The last office visit in the department: 03/11/2024 Does the patient have a future office visit with this provider/department: Yes Requested Prescriptions Pending Prescriptions Disp Refills gabapentin (NEURONTIN) 300 mg capsule 90 capsule 1 Sig: Take 1 capsule by mouth daily at bedtime for 180 days. Jayson Lovell MA July 03, 2024 11:30 AM [facility] [place]09-06-2024 Miscellaneous Notes* Telephone Encounter - Jayson Lovell MA - 07/03/2024 11:30 AM EDT Prescription Refill Information The patient has been identified by name and date of : Yes Caregiver verified no other encounters exist for this prescription request: Yes Caregiver confirmed with patient/requestor that no other refills are due, in the near future, with this provider at this time: Yes The last office visit in the department: 03/11/2024 Does the patient have a future office visit with this provider/department: Yes Requested Prescriptions Pending Prescriptions Disp Refills gabapentin (NEURONTIN) 300 mg capsule 90 capsule 1 Sig: Take 1 capsule by mouth daily at bedtime for 180 days. Jayson Lovell MA July 03, 2024 11:30 AM documented in this encounterKing[facility] [place] Telephone encounter Note * Telephone Encounter - Jayson Lovell MA - 07/03/2024 10:27 AM EDT Prescription Refill Information The patient has been identified by name and date of : Yes Caregiver verified no other encounters exist for this prescription request: Yes Caregiver confirmed with patient/requestor that no other refills are due, in the near future, with this provider at this time: Yes The last office visit in the department: 03/11/2024 Does the patient have a future office visit with this provider/department: Yes Requested Prescriptions Pending Prescriptions Disp Refills atorvastatin (LIPITOR) 80 mg tablet Sig: Take 1 tablet by mouth daily at bedtime. For cholesterol. Jayson Lovell MA July 03, 2024 10:31 AM [facility] [place]09-06-2024 Miscellaneous Notes* Telephone Encounter - Jayosn Lovell MA - 07/03/2024 10:27 AM EDT Prescription Refill Information The patient has been identified by name and date of : Yes Caregiver verified no other encounters exist for this prescription request: Yes Caregiver confirmed with patient/requestor that no other refills are due, in the near future, with this provider at this time: Yes The last office visit in the department: 03/11/2024 Does the patient have a future office visit with this provider/department: Yes Requested Prescriptions Pending Prescriptions Disp Refills atorvastatin (LIPITOR) 80 mg tablet Sig: Take 1 tablet by mouth daily at bedtime. For cholesterol. Jayson Lovell MA July 03, 2024 10:31 AM documented in this encounterKing'S [facility] [place]08-30-2024 NoteHNO ID: [id number] Author: GOMEZ SCHWAB, ? Service: ? Author Type: Physician Type: Progress Notes Filed: 06/26/2024 13:20 Note Text: Last saw pcp: 03/11/24 Subjective: Patient presents to clinic c/o painful toenails. They state that the nails are especially painful with shoe gear and pressure. Patient states that nails 1-5 b/l are painful. Patient admits to being diabetic. No other pedal complaints at this time. Patient states no change in medications or medical history since last visit. Objective: Patient presents to clinic ambulating in [facility] Vasc: DP and PT pulses are faintly palpable bilateral. CFT is less than 5 seconds bilateral. Skin temperature is warm to cool proximal to distal bilateral. There is mild edema or varicosities noted. Neuro: Protective sensation is absent to the foot and toes when tested with the 5.07 SWM bilateral. Vibratory sensation is absent at the hallux IPJ bilateral. The hallux is downgoing bilateral. Derm: Nails 1-5 b/l are painful, discolored-yellow, thick, crumbly, dystrophic and with subungal debris. Skin is of normal turgor, texture and hair growth is absent bilateral. There are no hyperkeratosis, ulcerations, scars, verruca or other lesions noted. There is peeling skin noted to elft 4th toe but no underlying ulceration noted. Ortho: Muscle strength is 5/5 for all pedal groups tested. Ankle joint DF is decreased with the knee extended with no pain or crepitus noted. 1st MPJ ROM is decreased bilateral. Assessment: (B35.1) Onychomycosis (primary encounter diagnosis) (M79.675) Pain in toe of left foot (M79.674) Pain in toe of right foot (I73.9) PAD (peripheral artery disease) (HCC) Diabetic neuropathy type II Plan: Patient was seen and evaluated. Nails 1-5 bilateral were debrided in length and thickness. Patient was instructed on the continued importance of diabetic foot care along with proper diet and keeping their blood sugar under control to prevent complications. Stressed the importance of avoiding barefoot walking and wearing good shoes and inspection of feet. Small area of peeling skin to left 4th toe. This was removed with alchol pad. No underlying ulceraiton. Patient is to RTC in 3-4 months. Gomez Schwab [facility]08-30-2024 History of Present illness Narrative* Gomez Schwab - 06/26/2024 1:05 PM EDT Last saw pcp: 03/11/24 Subjective: Patient presents to clinic c/o painful toenails. They state that the nails are especially painful with shoe gear and pressure. Patient states that nails 1-5 b/l are painful. Patient admits to being diabetic. No other pedal complaints at this time. Patient states no change in medications or medical history since last visit. Objective: Patient presents to clinic ambulating in [facility] Vasc: DP and PT pulses are faintly palpable bilateral. CFT is less than 5 seconds bilateral. Skin temperature is warm to cool proximal to distal bilateral. There is mild edema or varicosities noted. Neuro: Protective sensation is absent to the foot and toes when tested with the 5.07 SWM bilateral.Vibratory sensation is absent at the hallux IPJ bilateral. The hallux is downgoing bilateral. Derm: Nails 1-5 b/l are painful, discolored-yellow, thick, crumbly, dystrophic and with subungal debris. Skin is of normal turgor, texture and hair growth is absent bilateral. There are no hyperkeratosis, ulcerations, scars, verruca or other lesions noted. There is peeling skin noted to elft 4th toe but no underlying ulceration noted. Ortho: Muscle strength is 5/5 for all pedal groups tested. Ankle joint DF is decreased with the knee extended with no pain or crepitus noted. 1st MPJ ROM is decreased bilateral. Assessment: (B35.1) Onychomycosis (primary encounter diagnosis) (M79.675) Pain in toe of left foot (M79.674) Pain in toe of right foot (I73.9) PAD (peripheral artery disease) (HCC) Diabetic neuropathy type II Plan: Patient was seen and evaluated. Nails 1-5 bilateral were debrided in length and thickness. Patient was instructed on the continued importance of diabetic foot care along with proper diet andkeeping their blood sugar under control to prevent complications. Stressed the importance of avoiding barefoot walking and wearing good shoes and inspection of feet. Small area of peeling skin to left 4th toe. This was removed with alchol pad. No underlying ulceraiton. Patient is to RTC in 3-4 months. Gomez Schwab DPM * Cheryle Merritt LPN - 06/26/2024 1:00 PM EDT AMB ROOMING INTAKE FLOWSHEET DATA Patient presents with: Left Foot - Established Patient, Follow Up, Diabetic Foot Care Right Foot - Established Patient, Follow Up, Diabetic Foot Care Cheryle Merritt LPN documented in this encounterKing[facility] [place]08-30-2024 NoteHNO ID: [id number] Author: CHERYLE MERRITT LPN Service: ? Author Type: LICENSED NURSE Type: Progress Notes Filed: 06/26/2024 13:20 Note Text: AMB ROOMING INTAKE FLOWSHEET DATA Patient presents with: Left Foot - Established Patient, Follow Up, Diabetic Foot Care Right Foot - Established Patient, Follow Up, Diabetic Foot Care [facility] Telephone encounter Note* Telephone Encounter - Palak Rosales LPN - 06/16/2024 11:57 AM EDT Patient has refill for Metformin at [facility]/[place], written 02/25/2024. Marie will contact his pharmacy. Palak Rosales LPN [facility] [place]08-20-2024 Miscellaneous Notes* Telephone Encounter - Palak Rosales LPN - 06/16/2024 11:57 AM EDT Patient has refill for Metformin at [facility]/[place], written 02/25/2024. Marie will contact his pharmacy. Palak Rosales LPN documented in this encounterKing'S [facility] [place]06-11-2024 History of Present illness Narrative* Nargis Yin, - 04/07/2024 9:17 AM EDT Images from the original note were not included. [facility] [place] DEPARTMENT OF VASCULAR SURGERY OUTPATIENT VISIT DATE April 07, 2024 OUTPATIENT VISIT TYPE ESTABLISHED SERVICE DATE: 04/07/2024 SERVICE TIME: 9:18 AM PRIMARY CARE PHYSICIAN: Sher Jules MD HISTORY OF PRESENT ILLNESS: Mr. Hutson is a 74 year old male who presents today for a vascular surgery follow-up visit for peripheral arterial disease. He denies lifestyle limiting claudication. He ambulates slowly and can walk approximately 1/4 mile without stopping. Denies rest pain. He was instructed to stop pletal after coronary stenting. Procedure(s): 05-24-16 Bilateral external iliac, common femoral, SFA endarterectomy and profundaplasty with combination vein and bovine pericardial patches (vein to each profunda, Bovine to LEATHER ETCHER to SFA origins. Extensive profundaplasty on left. November 2009 Hx L SFA atherectomy complicated by thrombus requiring thrombolysis and stent of popliteal. September 07, 2010 RLE DRIER AND PULVERIZER TENDER to 3mm, Atheterctomy and DRIER AND PULVERIZER TENDER to 6mm. Also with right retrograde PT access. Left stent was patent at that time with 80% stenosis of distal popliteal. R with 80% profunda lesion. PAST MEDICAL HISTORY Diagnosis Date Atherosclerosis of hoh arteries of the extremities with intermittent claudication 09/07/2010 BENIGN NEOPLASM LG BOWEL 07/29/2008 Tubular adenoma. 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 Coronary artery disease Dermatophytosis of nail 12/29/2007 Diabetic peripheral neuropathy (HCC) 05/17/2014 DVT of leg (deep venous thrombosis) ([facility]) 11/16/2013 post-op CABG, rx with Xarelto Hypertrophy of prostate without urinary obstruction and other lower urinary tract symptoms (LUTS) 12/29/2007 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/29/2007 Non-ST elevation myocardial infarction (NSTEMI) 10/17/2013 Nonspecific abnormal results of liver function study 04/29/2008 Obesity, unspecified 12/29/2007 Other and unspecified hyperlipidemia PAD (peripheral artery disease) ([facility]) 08/05/2009 Personal history of other malignant neoplasm of skin 11/05/2010 skin cancer Postoperative anemia 10/25/2013 Transfused on 10/25 1 U PRBC. H&H 9.2/26.3. DC on diuretic taper for dilutional component and MVI with iron and repeat as outpt Primary osteoarthritis of left knee 02/21/2018 [facility]. Type II or unspecified type diabetes mellitus without mention of complication, not stated as uncontrolled 12/29/2007 Unspecified essential hypertension PAST SURGICAL HISTORY Procedure Laterality Date ANGIOPLASTY FEMORAL/POP 09/07/2010 right BALLN ANGIOPLASTY PERC,FEM-POP 11/17/2009 APLL WITH SILVERHAWK AND ANGIOPLASTY CC DRUG ELUTING STENT 1 VESSEL 01/29/2024 PTCA LISANDRO distal RCA COLONOSCOPY FLX DX W/COLLJ SPEC WHEN PFRMD 07/2008 Colonoscopy COLONOSCOPY FLX DX W/COLLJ SPEC WHEN PFRMD 09/14/2013 Colonoscopy COLONOSCOPY FLX DX W/COLLJ SPEC WHEN PFRMD 12/02/2018 Colonoscopy CORONARY ARTERY BYP W/VEIN & ARTERY GRAFT 3 VEIN 10/20/2013 CABG, three grafts F ENDARTERECTOMY FEMORAL PROFUNDA Bilateral 05/24/2016 fem. endarterectomy, profundaplasty LEFT HEART CATH,PERCUTANEOUS 10/19/2013 Cardiac cath, L heart PRIM PRQ TRLUML MCHNL THRMBC N-COR N-ICRA 1ST 12/05/2009 left REVSC OPN/PRQ ILIAC ART W/STNT PLMT & ANGIOPLSTY Left 04/19/2016 with 9x29mm satish stenting SLCTV CATHJ EA 2ND+ ORD ABDL PEL/LXTR ART BRNCH 11/17/2009 LLE UNSPECIFIED ORAL SURGERY PROCEDURE, BY REPORT wisdom teeth removed SOCIAL HISTORY Social History Tobacco Use Smoking status: Former Packs/day: 1.00 Years: 34.00 Additional pack years: 0.00 Total pack years: 34.00 Types: Cigarettes Quit date: 10/28/2002 Years since quittin.4 Passive exposure: Past Smokeless tobacco: Never Vaping Use Vaping Use: Never used Substance Use Topics Alcohol use: Yes Alcohol/week: 30.0 standard drinks of alcohol Types: 30 Cans of Beer (12oz) per week Comment: 6 beers per day, sometimes less Drug use: Yes Frequency: 2.0 times per week Comment: marijuana MEDICATIONS: nitroglycerin sublingual (NITROQUICK) 0.3 mg SL tablet Dissolve 1 tablet under the tongue every 5 minutes as needed for chest pain. metFORMIN (GLUCOPHAGE) 500 mg tablet Take 2 tablets by mouth two times a day with meals. clopidogrel (PLAVIX) 75 mg tablet Take 1 tablet by mouth once daily. metoprolol tartrate, short acting, (LOPRESSOR) 25 mg tablet Take 2 tablets by mouth every 12 hours. lisinopril (ZESTRIL) 40 mg tablet Take 1 tablet by mouth two times a day. amLODIPine (NORVASC) 10 mg tablet Take 1 tablet by mouth once daily. cloNIDine HCl (CATAPRES) 0.2 mg tablet Take 1 tablet by mouth two times a day. atorvastatin (LIPITOR) 80 mg tablet Take 1 tablet by mouth daily at bedtime. For cholesterol. aspirin, enteric coated (ASPIRIN, ENTERIC COATED) 81 mg EC tablet Take 1 tablet by mouth once daily. gabapentin (NEURONTIN) 300 mg capsule Take 1 capsule by mouth daily at bedtime for 180 days. Miscellaneous Medical Supply (COMPRESSION STOCKINGS[place] [facility]INGS KNEE HI 20-30 WT M79.89 therapeutic multivitamin tablet Take 1 tablet by mouth daily with breakfast. blood sugar diagnostic (ONE TOUCH ULTRA TEST) test strip Use as instructed blood sugar diagnostic (ONE TOUCH ULTRA TEST) test strip TEST BLOOD SUGARS ONCE DAILY lancets(ONE TOUCH ULTRASOFT LANCETS) Test blood sugar once daily. ALLERGIES: ALLERGIES No Known Allergies PHYSICAL EXAM: BP 142/65 (BP Site: Left Arm, BP Position: Sitting, BP Cuff Size: Regular Adult) Pulse (!) 45 SpO2 98% Gen- no distress Ext- no edema, no ulceration or tissue loss Diagnostic tests reviewed for today's visit: Most recent labs Most recent imaging PVRs Compared to prior study of 09/18/2022, Right ankle brachial index was 0.50 and left was 0.45. RIGHT SIDE Resting right ankle brachial index: 0.36 Right toe brachial index: 0.15 Abnormal ankle brachial index at rest diagnostic of peripheral artery disease. Right ankle: Severe disease at rest. Moderate/severe tracing. Aortic or bilateral iliofemoral disease. Right superficial femoral disease. Right infrapopliteal disease. LEFT SIDE Resting left ankle brachial index: 0.35 Left toe brachial index: 0.23 Abnormal ankle brachial index at rest diagnostic of peripheral artery disease. Left ankle: Severe disease at rest. Moderate/severe tracing. Aortic or bilateral iliofemoral disease. Left superficial femoral disease. IMPRESSION: Mr. Hutson is a 74 year old male with peripheral arterial disease . PLAN and RECOMMENDATIONS: We discussed PVR findings with Mr. Hutson. Currently he denies rest pain or tissue loss and would like to continue with non-interventional therapy. Follow up in one year or sooner with any concerns. SIGNATURE: Nargis Yin DO PATIENT NAME: Marie Hutson DATE: April 07, 2024 TIME: 9:18 AM documented in this encounterKing'S [facility] [place] History of Present illness Narrative* Gem Bass MD - 04/07/2024 8:10 AM EDT HISTORY AND PHYSICAL Marie Hutson 1950 REFERRING PHYSICIAN: Sher Jules MD CHIEF COMPLAINT: Colonoscopy Consult (Last colonoscopy 11/2018) HPI: The patient is a 74 year old male referred for endoscopy. Marie notes recent MD in January of this year; he had two stents placed for CAD. He is presently on plavix. He denies blood in stools; he denies abdominal pain; he denies changes in bowel habit.s He had a colonoscopy in 2019 with findings of a tubular adenoma He denies chest pain or shortness of breath. PAST MEDICAL HISTORY Diagnosis Date Atherosclerosis of hoh arteries of the extremities with intermittent claudication 09/07/2010 BENIGN NEOPLASM LG BOWEL 07/29/2008 Tubular adenoma. 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 Coronary artery disease Dermatophytosis of nail 12/29/2007 Diabetic peripheral neuropathy (HCC) 05/17/2014 DVT of leg (deep venous thrombosis) ([facility]) 11/16/2013 post-op CABG, rx with Xarelto Hypertrophy of prostate without urinary obstruction and other lower urinary tract symptoms (LUTS) 12/29/2007 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/29/2007 Non-ST elevation myocardial infarction (NSTEMI) 10/17/2013 Nonspecific abnormal results of liver function study 04/29/2008 Obesity, unspecified 12/29/2007 Other and unspecified hyperlipidemia PAD (peripheral artery disease) ([facility]) 08/05/2009 Personal history of other malignant neoplasm of skin 11/05/2010 skin cancer Postoperative anemia 10/25/2013 Transfused on 10/25 1 U PRBC. H&H 9.2/26.3. DC on diuretic taper for dilutional component and MVI with iron and repeat as outpt Primary osteoarthritis of left knee 02/21/2018 [facility]. Type II or unspecified type diabetes mellitus without mention of complication, not stated as uncontrolled 12/29/2007 Unspecified essential hypertension PAST SURGICAL HISTORY Procedure Laterality Date ANGIOPLASTY FEMORAL/POP 09/07/2010 right BALLN ANGIOPLASTY PERC,FEM-POP 11/17/2009 APLL WITH SILVERHAWK AND ANGIOPLASTY CC DRUG ELUTING STENT 1 VESSEL 01/29/2024 PTCA LISANDRO distal RCA COLONOSCOPY FLX DX W/COLLJ SPEC WHEN PFRMD 07/2008 Colonoscopy COLONOSCOPY FLX DX W/COLLJ SPEC WHEN PFRMD 09/14/2013 Colonoscopy COLONOSCOPY FLX DX W/COLLJ SPEC WHEN PFRMD 12/02/2018 Colonoscopy CORONARY ARTERY BYP W/VEIN & ARTERY GRAFT 3 VEIN 10/20/2013 CABG, three grafts F ENDARTERECTOMY FEMORAL PROFUNDA Bilateral 05/24/2016 fem. endarterectomy, profundaplasty LEFT HEART CATH,PERCUTANEOUS 10/19/2013 Cardiac cath, L heart PRIM PRQ TRLUML MCHNL THRMBC N-COR N-ICRA 1ST 12/05/2009 left REVSC OPN/PRQ ILIAC ART W/STNT PLMT & ANGIOPLSTY Left 04/19/2016 with 9x29mm satish stenting SLCTV CATHJ EA 2ND+ ORD ABDL PEL/LXTR ART BRNCH 11/17/2009 LLE UNSPECIFIED ORAL SURGERY PROCEDURE, BY REPORT wisdom teeth removed Current Outpatient Medications Medication Sig metFORMIN (GLUCOPHAGE) 500 mg tablet Take 2 tablets by mouth two times a day with meals. clopidogrel (PLAVIX) 75 mg tablet Take 1 tablet by mouth once daily. metoprolol tartrate, short acting, (LOPRESSOR) 25 mg tablet Take 2 tablets by mouth every 12 hours. lisinopril (ZESTRIL) 40 mg tablet Take 1 tablet by mouth two times a day. amLODIPine (NORVASC) 10 mg tablet Take 1 tablet by mouth once daily. cloNIDine HCl (CATAPRES) 0.2 mg tablet Take 1 tablet by mouth two times a day. atorvastatin (LIPITOR) 80 mg tablet Take 1 tablet by mouth daily at bedtime. For cholesterol. aspirin, enteric coated (ASPIRIN, ENTERIC COATED) 81 mg EC tablet Take 1 tablet by mouth once daily. gabapentin (NEURONTIN) 300 mg capsule Take 1 capsule by mouth daily at bedtime for 180 days. Miscellaneous Medical Supply (COMPRESSION STOCKINGS) [facility] [place]INGS KNEE HI 20-30 WT M79.89 therapeutic multivitamin tablet Take 1 tablet by mouth daily with breakfast. blood sugar diagnostic (ONE TOUCH ULTRA TEST) test strip Use as instructed blood sugar diagnostic (ONE TOUCH ULTRA TEST) test strip TEST BLOOD SUGARS ONCE DAILY lancets(ONE TOUCH ULTRASOFT LANCETS) Test blood sugar once daily. nitroglycerin sublingual (NITROQUICK) 0.3 mg SL tablet Dissolve 1 tablet under the tongue every 5 minutes as needed for chest pain. No current facility-administered medications for this visit. ALLERGIES: Patient has no known allergies. PERSONAL HISTORY: Social History Tobacco Use Smoking status: Former Packs/day: 1.00 Years: 34.00 Additional pack years: 0.00 Total pack years: 34.00 Types: Cigarettes Quit date: 10/28/2002 Years since quittin.4 Passive exposure: Past Smokeless tobacco: Never Vaping Use Vaping Use: Never used Substance Use Topics Alcohol use: Yes Alcohol/week: 30.0 standard drinks of alcohol Types: 30 Cans of Beer (12oz) per week Comment: 6 beers per day, sometimes less Drug use: Yes Frequency: 2.0 times per week Comment: marijuana FAMILY HISTORY Problem Relation Age of Onset Cancer Mother lymphoma, passed Heart Father 46 Stroke Father passed from this No Known Problems Sister No Known Problems Sister No Known Problems Brother GI Brother inflammatory bowel disease, crohn's Diabetes Brother Cancer Maternal Grandfather unsure of the type Heart Paternal Grandfather REVIEW OF SYMPTOMS: The review of systems data was entered by the nurse and reviewed by me There are no exam notes on file for this visit. See HPI PHYSICAL EXAMINATION: General: The patient is 74 year old male, well nourished, well hydrated in no acute distress. The patient is oriented to time, place, and person. VITALS: Blood pressure 122/68, pulse (!) 45, resp. rate 19, height 175.3 cm (5' 9), weight 92.3 kg(203 lb 6.4 oz), SpO2 98%. Body mass index is 30.04 kg/m . Head: Normal cephalic, atraumatic Eyes: pupils are equally round, sclera are clear/anicteric Neck is supple with no tracheal deviation Cardiac: normal heart sounds, regular Respiratory: Normal respiratory excursion and pattern. Abdominal exam: benign Extremities: no clubbing, cyanosis or edema. Neuro: non focal Psych: normal mood Assessment IMPRESSION: history of colon polyp, recent MD PLAN: I have discussed the above with the patient. Given his recent MD, it would be reasonable to postpone colonoscopy for a year. I have offered colonoscopy , possible biopsies to be done in January 2025 I have explained the procedure to the patient. I have counseled the patient as to the risks of the procedure, including but not limited to: infection, bleeding, injury to any intrabdominal organs such as liver/spleen, perforation of the GI tract,inability to complete the procedure, complications of anesthesia, etc. - the patient understands. The patient wishes to proceed. I will place patient on recall list for this I have answered all questions to the patient s satisfaction and the patient has no further questions. The patient will be scheduled for the procedure at location best suited for his anesthesia status Diagnoses: (Z12.11) Special screening for malignant neoplasms, colon (Z86.010) History of colonic polyps (I25.10) Coronary artery disease involving hoh coronary artery of hoh heart, unspecified whether angina present I have confirmed and edited as necessary, the PFSH and ROS obtained by others. Consultation requested by Dr. Sher Jules for an opinion regarding patient's history of colon polyp and recent MD. My final recommendations will be communicated back to the requesting physician by way of shared Medical record or letter to requesting physician via US mail. Medical Decision Making: Problems: Low: Stable chronic illness Risk: Low: Low risk from testing/treatment Medical Decision Making Level: 3 - Low Gem Bass MD documented in this encounter[facility] [place] History of Present illness Narrative* Bib Patterson MD - 04/06/2024 5:28 PM EDT Images from the original note were not included. Bib Patterson MD Interventional Cardiology [address] [place] [address] [phone] Chief Complaint Patient presents with: Follow Up HISTORY OF PRESENT ILLNESS: Mr. Hutson is a 74 year old male seen in my office today for assessment management patient had prior history of severe two-vessel coronary artery disease with bypass surgery WRIGHT to the LAD vein graft to the right and vein graft to the recently admitted to [facility] because of unstable angina underwent stenting of the hoh right after the vein graft to the right was occluded his WRIGHT to the LAD was patent patient graft to the obtuse marginal is patent doing well asymptomatic denies chest pain or shortness of breath repeat stress test shows less than 10% ischemia in LAD and circumflex territory with normal LV function continue to exert himself with no limitation he is on good medical therapy Cardiac Risk Factors age (male over 45, female over 55), hyperlipidemia, hypertension, family history of CAD PAST MEDICAL HISTORY Diagnosis Date Atherosclerosis of hoh arteries of the extremities with intermittent claudication 09/07/2010 BENIGN NEOPLASM LG BOWEL 07/29/2008 Tubular adenoma. 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 Coronary artery disease Dermatophytosis of nail 12/29/2007 Diabetic peripheral neuropathy (HCC) 05/17/2014 DVT of leg (deep venous thrombosis) ([facility]) 11/16/2013 post-op CABG, rx with Xarelto Hypertrophy of prostate without urinary obstruction and other lower urinary tract symptoms (LUTS) 12/29/2007 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/29/2007 Non-ST elevation myocardial infarction (NSTEMI) 10/17/2013 Nonspecific abnormal results of liver function study 04/29/2008 Obesity, unspecified 12/29/2007 Other and unspecified hyperlipidemia PAD (peripheral artery disease) ([facility]) 08/05/2009 Personal history of other malignant neoplasm of skin 11/05/2010 skin cancer Postoperative anemia 10/25/2013 Transfused on 10/25 1 U PRBC. H&H 9.2/26.3. DC on diuretic taper for dilutional component and MVI with iron and repeat as outpt Primary osteoarthritis of left knee 02/21/2018 [facility]. Type II or unspecified type diabetes mellitus without mention of complication, not stated as uncontrolled 12/29/2007 Unspecified essential hypertension PAST SURGICAL HISTORY Procedure Laterality Date ANGIOPLASTY FEMORAL/POP 09/07/2010 right BALLN ANGIOPLASTY PERC,FEM-POP 11/17/2009 APLL WITH SILVERHAWK AND ANGIOPLASTY CC DRUG ELUTING STENT 1 VESSEL 01/29/2024 PTCA LISANDRO distal RCA COLONOSCOPY FLX DX W/COLLJ SPEC WHEN PFRMD 07/2008 Colonoscopy COLONOSCOPY FLX DX W/COLLJ SPEC WHEN PFRMD 09/14/2013 Colonoscopy COLONOSCOPY FLX DX W/COLLJ SPEC WHEN PFRMD 12/02/2018 Colonoscopy CORONARY ARTERY BYP W/VEIN & ARTERY GRAFT 3 VEIN 10/20/2013 CABG, three grafts F ENDARTERECTOMY FEMORAL PROFUNDA Bilateral 05/24/2016 fem. endarterectomy, profundaplasty LEFT HEART CATH,PERCUTANEOUS 10/19/2013 Cardiac cath, L heart PRIM PRQ TRLUML MCHNL THRMBC N-COR N-ICRA 1ST 12/05/2009 left REVSC OPN/PRQ ILIAC ART W/STNT PLMT & ANGIOPLSTY Left 04/19/2016 with 9x29mm satish stenting SLCTV CATHJ EA 2ND+ ORD ABDL PEL/LXTR ART BRNCH 11/17/2009 LLE UNSPECIFIED ORAL SURGERY PROCEDURE, BY REPORT wisdom teeth removed FAMILY HISTORY Problem Relation Age of Onset Cancer Mother lymphoma, passed Heart Father 46 Stroke Father passed from this No Known Problems Sister No Known Problems Sister No Known Problems Brother GI Brother inflammatory bowel disease, crohn's Diabetes Brother Cancer Maternal Grandfather unsure of the type Heart Paternal Grandfather Social History Tobacco Use Smoking status: Former Packs/day: 1.00 Years: 34.00 Additional pack years: 0.00 Total pack years: 34.00 Types: Cigarettes Quit date: 10/28/2002 Years since quittin.4 Passive exposure: Past Smokeless tobacco: Never Vaping Use Vaping Use: Never used Substance Use Topics Alcohol use: Yes Alcohol/week: 30.0 standard drinks of alcohol Types: 30 Cans of Beer (12oz) per week Comment: 6 beers per day, sometimes less Drug use: Yes Frequency: 2.0 times per week Comment: marijuana ALLERGIES No Known Allergies Medications: Current Outpatient Medications Medication Sig Dispense Refill metFORMIN (GLUCOPHAGE) 500 mg tablet Take 2 tablets by mouth two times a day with meals. 360 tablet3 clopidogrel (PLAVIX) 75 mg tablet Take 1 tablet by mouth once daily. 90 tablet 3 metoprolol tartrate, short acting, (LOPRESSOR) 25 mg tablet Take 2 tablets by mouth every 12 hours.360 tablet 3 lisinopril (ZESTRIL) 40 mg tablet Take 1 tablet by mouth two times a day. 180 tablet 3 amLODIPine (NORVASC) 10 mg tablet Take 1 tablet by mouth once daily. 90 tablet 3 cloNIDine HCl (CATAPRES) 0.2 mg tablet Take 1 tablet by mouth two times a day. 180 tablet 3 atorvastatin (LIPITOR) 80 mg tablet Take 1 tablet by mouth daily at bedtime. For cholesterol. aspirin, enteric coated (ASPIRIN, ENTERIC COATED) 81 mg EC tablet Take 1 tablet by mouth once daily. gabapentin (NEURONTIN) 300 mg capsule Take 1 capsule by mouth daily at bedtime for 180 days. 90 capsule 1 Miscellaneous Medical Supply (COMPRESSION STOCKINGS) misc COMPRESSION STOCKINGS KNEE HI 20-30 WT M79.89 2 Each 3 therapeutic multivitamin tablet Take 1 tablet by mouth daily with breakfast. 0 blood sugar diagnostic (ONE TOUCH ULTRA TEST) test strip Use as instructed 100 Strip 0 blood sugar diagnostic (ONE TOUCH ULTRA TEST) test strip TEST BLOOD SUGARS ONCE DAILY 50 Strip 6 lancets(ONE TOUCH ULTRASOFT LANCETS) Test blood sugar once daily. 100 3 nitroglycerin sublingual (NITROQUICK) 0.3 mg SL tablet Dissolve 1 tablet under the tongue every 5 minutes as needed for chest pain. 14 tablet 2 No current facility-administered medications for this visit. Review of Systems Constitutional: Negative for chills, diaphoresis, fever, malaise/fatigue and weight loss. HENT: Negative for congestion, ear discharge, ear pain, hearing loss, nosebleeds, sinus pain, sore throat and tinnitus. Eyes: Negative for blurred vision, double vision, photophobia, pain, discharge and redness. Respiratory: Negative for cough, hemoptysis, sputum production, shortness of breath, wheezing and stridor. Cardiovascular: Negative for chest pain, palpitations, orthopnea, claudication, leg swelling and PND. Gastrointestinal: Negative for abdominal pain, blood in stool, constipation, diarrhea, heartburn, melena, nausea and vomiting. Genitourinary: Negative for dysuria, flank pain, frequency, hematuria and urgency. Musculoskeletal: Negative for back pain, falls, joint pain, myalgias and neck pain. Skin: Negative for itching and rash. Neurological: Negative for dizziness, tingling, tremors, sensory change, speech change, focal weakness, seizures, loss of consciousness, weakness and headaches. Endo/Heme/Allergies: Negative for environmental allergies and polydipsia. Does not bruise/bleed easily. Psychiatric/Behavioral: Negative for depression, hallucinations, memory loss, substance abuse and suicidal ideas. The patient is not nervous/anxious and does not have insomnia. Physical Examination: Vitals:BP 143/62 Pulse 48 Wt 203 lb (92.1kg) SpO2 99% BP w/Orthostatic Vitals Date and Time Orthostatic BP Orthostatic Pulse BP Pulse BP Position BP Site BP Cuff Size 04/06/24 1324 -- -- 143/62 48 -- -- -- Last 2 Encounter Wt Readings: Date: Wt: 04/06/2024 92.3 kg (203 lb 6.4 oz) 04/06/2024 92.1 kg (203 lb) Physical Exam Constitutional: General: He is not in acute distress. Appearance: He is not diaphoretic. HENT: Head: Normocephalic and atraumatic. Right Ear: External ear normal. Left Ear: External ear normal. Nose: Nose normal. Mouth/Throat: Pharynx: Oropharynx is clear. Eyes: General: Right eye: No discharge. Left eye: No discharge. Conjunctiva/sclera: Conjunctivae normal. Pupils: Pupils are equal, round, and reactive to light. Cardiovascular: Rate and Rhythm: Normal rate and regular rhythm. Heart sounds: Normal heart sounds, S1 normal and S2 normal. No murmur heard. No friction rub. No gallop. No S3 or S4 sounds. Pulmonary: Effort: Pulmonary effort is normal. No respiratory distress. Breath sounds: Normal breath sounds. No wheezing or rales. Chest: Chest wall: No tenderness. Musculoskeletal: General: Normal range of motion. Cervical back: Normal range of motion and neck supple. Skin: General: Skin is warm and dry. Neurological: Mental Status: He is alert and oriented to person, place, and time. Psychiatric: Mood and Affect: Mood normal. Thought Content: Thought content normal. Pertinent Labs: CBC: Hemoglobin (g/dL) Date Value 02/06/2023 13.2 11/21/2020 13.9 Hematocrit (%) Date Value 02/06/2023 36.9 11/21/2020 39.6 WBC (k/uL) Date Value 02/06/2023 4.16 11/21/2020 4.05 Platelet Count (k/uL) Date Value 02/06/2023 208 11/21/2020 201 BMP: Glucose (mg/dL) Date Value 08/06/2023 130 05/23/2021 129 Potassium (mmol/L) Date Value 08/06/2023 4.8 05/23/2021 4.4 Sodium (mmol/L) Date Value 08/06/2023 130 05/23/2021 136 Chloride (mmol/L) Date Value 08/06/2023 97 05/23/2021 103 CO2 (mmol/L) Date Value 08/06/2023 19 05/23/2021 21 Creatinine (mg/dL) Date Value 08/06/2023 0.67 05/23/2021 0.86 BUN (mg/dL) Date Value 08/06/2023 11 05/23/2021 15 Anion Gap (mmol/L) Date Value 08/06/2023 14 05/23/2021 12 Calcium (mg/dL) Date Value 05/23/2021 9.6 Calcium, Total (mg/dL) Date Value 08/06/2023 9.4 INR: Lipid Profile: Cholesterol, Total Date Value Ref Range Status 02/06/2023 124 <200 mg/dL Final Comment: <200 mg/dL, Desirable 200-239 mg/dL, Borderline high >239 mg/dL, High HDL Cholesterol Date Value Ref Range Status 02/06/2023 69 >39 mg/dL Final Comment: 40-59 mg/dL, Acceptable >59 mg/dL, High: Negative risk factor for coronary heart disease <40 mg/dL, Low: Positive risk factor for coronary heart disease LDL Cholesterol Date Value Ref Range Status 02/06/2023 45 <100 mg/dL Final Comment: <100 mg/dL, Optimal 100-129 mg/dL, Near optimal/above optimal 130-159 mg/dL, Borderline high 160-189 mg/dL, High >189 mg/dL, Very high Secondary prevention optimal LDL Cholesterol levels are recommended to be < 70 mg/dL Triglyceride Date Value Ref Range Status 02/06/2023 52 <150 mg/dL Final Comment: <150 mg/dL, Normal 150-199 mg/dL, Borderline high 200-499 mg/dL, High >499 mg/dL, Very high Hemoglobin A1C: No results found for: HGBA1C TSH: No results found for: TSHREFL Prior Cardiac Testing Stress test Assessment and Plan: 75 years old gentleman prior history of severe coronary artery disease and angioplasty ASSESSMENT/PLAN: 1. Essential hypertension - ICD9: 401.9, ICD10: I10 (primary diagnosis) - Controlled - Continue current medications - Recommend home blood pressure monitoring, to bring results to next visit - Encouraged sodium restriction, DASH or Mediterranean diet - Recommend regular aerobic exercise 2. Hyperlipidemia with target LDL less than 70 - ICD9: 272.4, ICD10: E78.5 - Controlled - Continue current medications - Counseled on healthy diet and regular exercise 3. Hx of CABG - ICD9: V45.81, ICD10: Z95.1 Patent WRIGHT to the LAD patent vein graft obtuse marginal Status post drug-eluting stent to the hoh right continue medical therapy 4. Coronary artery disease involving hoh coronary artery of hoh heart without angina pectoris- ICD9: 414.01, ICD10: I25.10 No active angina mild burden of ischemia by nuclear stress test continue medical therapy Bib Patterson MD Follow up plannin months Electronically signed by Bib Patterson MD on April 06, 2024, 5:28 PM The above note was partially created using a dictation recognition software. A reasonable attempt has been made to correct any errors. documented in this encounterKing[facility] [place]-10-2024 Instructions* Patient Instructions* Gem Bass MD - 04/06/2024 10:31 AM EDT Images from the original note were not included. Bowel Preparation Instructions for: Golytely, Nulytely, Trilyte or Colyte (polyethylene glycol 3350and electrolytes) IF YOU DO NOT FOLLOW THESE DIRECTIONS, YOUR COLONOSCOPY WILL BE CANCELLED. Haddad Instructions: Your bowel must be empty so that your doctor can clearly view your colon. Follow all of the instructions in this handout EXACTLY as they are written. Do NOT eat any solid food the ENTIRE day before your colonoscopy. Drink only clear liquids. Buy your bowel preparation at least 5 days before your colonoscopy. TRANSPORTATION on the Day of Your Exam A responsible person MUST be present with you at Check In prior to your colonoscopy and REMAIN in the endoscopy area until you are discharged. You are NOT ALLOWED to drive, take a taxi or bus, or leave the Endoscopy Center ALONE. If you do not have a responsible speedboat driver (family member or friend) with you to take you home, your exam cannot be done with sedation and will be cancelled. Please bring a list of all of your current medications, including any Over-the Counter medications with you. Medications If you take insulin, diabetic medications or blood thinners such as Coumadin (warfarin), Plavix (clopidogrel), Ticlid (ticlopidine hydrochloride), Agrylin (anagrelide), Xarelto (Rivaroxaban), Pradaxa(Dabigatran), Eliquis (Apixaban), and Effient (Prasugrel). You MUST call the doctors who orders those medicines for instructions on altering the dosage before your colonoscopy. All other medications should be taken the day of the exam with a sip of water including ASPIRIN. Five (5) Days Before Your Colonoscopy Do NOT take medicines that stop diarrhea - such as Imodium, Kaopectate, or Pepto Bismol. Do NOT take fiber supplements - such as Metamucil, Citrucel, or Perdiem. Do NOT take products that contain iron - such as multi-vitamins (the label lists what is in the products). Do NOT take Vitamin E. Buy the prescription bowel preparation solution at your local pharmacy [facility] 09/2019 Bowel Preparation Instructions for: Golytely, Nulytely, Trilyte or Colyte (polyethylene glycol 3350and electrolytes) Three (3) Days Before Your Colonoscopy Do NOT eat high-fiber foods - such as popcorn, beans, seeds (flax, sunflower, quinoa), multigrain bread, nuts, salad/vegetables, or fresh and dried fruit. One (1) Day Before Your Colonoscopy Only drink clear liquids the ENTIRE DAY before your colonoscopy. Do NOT eat any solid foods. Drink at least 8 ounces of clear liquids every hour after waking up. The clear liquids you can drink include: Clear Liquid (NO RED LIQUIDS) DO NOT DRINK Gatorade, Pedialyte or Powerade Clear broth or bouillon Coffee or tea (no milk or non-dairy creamer) Carbonated and non-carbonated soft drinks Simon-Aid or other fruit flavored drinks Strained fruit juices (no pulp) Jell-O, popsicles, hard candy Water Alcohol Milk or non-dairy creamers Noodles or vegetables in soup Juice with pulp Liquid you cannot see through Do not use tobacco/vaping products The bowel preparation solution will be consumed in two parts. Mix the solution the evening before your colonoscopy and refrigerate before drinking. You may add the flavor pack that came with the bowel preparation. Do NOT add ice, sugar or any other flavorings to the solution. Part 1 At 6:00 PM - Evening before your colonoscopy Drink an 8-oz glass of bowel preparation every 10 minutes for a total of 8 glasses. You may continue to drink clear liquids until midnight. Part 2 On the day of your colonoscopy you may drink clear liquids up to (three) 3 hours before your procedure. 4 1/2 hours before your colonoscopy Drink an 8-oz glass of bowel preparation every 10 minutes for a total of 8 glasses. Fifteen (15) minutes later, drink an 8-oz glass of clear liquids every 15 minutes for a total of 2 glasses. You may continue to drink clear liquids up to (three) 3 hours before your exam. 2 09/2019 documented in this encounterKing[facility] [place]-17-[facility] History of Present illness Narrative* Gomez Schwab - 03/13/2024 3:24 PM EDT Last saw pcp: 03/11/24 Subjective: Patient presents to clinic c/o painful toenails. They state that the nails are especially painful with shoe gear and pressure. Patient states that nails 1-5 b/l are painful. Patient admits to being diabetic. No other pedal complaints at this time. Patient states no change in medications or medical history since last visit. Objective: Patient presents to clinic ambulating in sneakers Vasc: DP and PT pulses are faintly palpable bilateral. CFT is less than 5 seconds bilateral. Skin temperature is warm to cool proximal to distal bilateral. There is mild edema or varicosities noted. Neuro: Protective sensation is decreased to the foot and toes when tested with the 5.07 SWM bilateral. Vibratory sensation is absent at the hallux IPJ bilateral. The hallux is downgoing bilateral. Derm: Nails 1-5 b/l are painful, discolored-yellow, thick, crumbly, dystrophic and with subungal debris. Skin is of normal turgor, texture and hair growth is decreased bilateral. There are no hyperkeratosis, ulcerations, scars, verruca or other lesions noted. Ortho: Muscle strength is 5/5 for all pedal groups tested. Ankle joint DF is decresaed with the knee extended with no pain or crepitus noted. 1st MPJ ROM is decreased bilateral. Assessment: (B35.1) Onychomycosis (primary encounter diagnosis) (M79.675) Pain in toe of left foot (M79.674) Pain in toe of right foot (I73.9) PAD (peripheral artery disease) ([facility]) (E11.42) Diabetic polyneuropathy associated with type 2 diabetes mellitus (HCC) Plan: Patient was seen and evaluated. Nails 1-5 bilateral were debrided in length and thickness. Patient was instructed on the continued importance of diabetic foot care along with proper diet andkeeping their blood sugar under control to prevent complications. Stressed the importance of avoiding barefoot walking, monitoring feet and wearing good shoes. Patient is to RTC in 3-4 months. Gomez Schwab DPM * Cheryle Merritt LPN - 03/13/2024 3:19 PM EDT AMB ROOMING INTAKE FLOWSHEET DATA Patient presents with: Left Foot - Established Patient, Follow Up, Diabetic Foot Care Right Foot - Established Patient, Follow Up, Diabetic Foot Care Cheryle Merritt LPN documented in this encounterKing'S [facility] [place]05-16-2024 NoteHNO ID: [id number] Author: ADILENE SANCHEZ APRN.CNM Service: Nuclear Medicine Author Type: [facility] Director Type: Progress Notes Filed: 03/12/2024 09:38 Note Text: RADIOLOGY SERVICE PROGRESS NOTE SERVICE DATE: 03/12/2024 SERVICE TIME: 9:37 AM PATIENT IDENTITY VERIFICATION COMPLETED USING TWO (2) STANDARD IDENTIFIERS: Name and Date of confirmed by patient verbally and Name and Date of confirmed by identification band FALL SCREENING: Has the patient had 2 falls in the last year or 1 fall with injury or currently using an Ambulatory Assistive Device (Walker, Cane, Wheelchair, Crutches, etc.)? No PATIENT GENDER DATA: .male ALLERGIES: Reviewed and unchanged MEDICATIONS REVIEWED: Not applicable PATIENT RELEVANT IMPLANT DATA REVIEWED: Not Applicable PATIENT PRESENTS WITH AN IMPLANTABLE OR ATTACHED CUSHION SPRING ASSEMBLER: No CREATININE: Creatinine Date Value Ref Range Status 08/06/2023 0.67 (L) 0.73 - 1.22 mg/dL Final 02/06/2023 0.64 (L) 0.73 - 1.22 mg/dL Final 01/15/2023 0.81 0.73 - 1.22 mg/dL Final Estimated Glomerular Filtration Rate Date Value Ref Range Status 08/06/2023 100 >=60 mL/min/1.73m? Final Comment: Estimated Glomerular Filtration Rate (eGFR) is calculated using the 2020 CKD-EPI creatinine equation. This equation utilizes serum creatinine, sex, and age as parameters. The creatinine assay has traceable calibration to isotope dilution-mass spectrometry. Refer to KDIGO guidelines for clinical interpretation. In patients with unstable renal function, e.g. those with acute kidney injury, the eGFR may not accurately reflect actual GFR. eGFR- Date Value Ref Range Status 05/23/2021 >60 Final P.O.C.T. RESULTS: N/A March 12, [address] PERFORMED: No IV SITE: Ambulatory: A peripheral IV was started in the Right hand with a Angio cath: 24 gauge. POST EXAM PIV STATUS: Discontinued PROCEDURE TYPE: NM Stress: 13.27 mCi [id number] was administered IV for Rest Imaging at 07:25 by JEVANGELINA. 33.96 mCi [id number] was administered IV for Stress Imaging at 08:07 by JEVANGELINA. ADMINISTRATION TIME: 07:25 PATIENT DISCHARGED TO: Ambulatory patient, left [place] department area. A Diagnostic radioactive procedure has taken place, with no further precautions necessary other than routine body substance precautions. More information regarding radiation safety can be found using this link: [email or web address] SIGNATURE: Adilene Sanchez APRN.CNM PATIENT NAME: Marie Hutson DATE: March 12, 2024 TIME: 9:37 AM [phone] History of Present illness Narrative* Adilene Sanchez APRN.CNM - 03/12/2024 7:15 AM EDT RADIOLOGY SERVICE PROGRESS NOTE SERVICE DATE: 03/12/2024 SERVICE TIME: 9:37 AM PATIENT IDENTITY VERIFICATION COMPLETED USING TWO (2) STANDARD IDENTIFIERS: Name and Date of confirmed by patient verbally and Name and Date of confirmed by identification band FALL SCREENING: Has the patient had 2 falls in the last year or 1 fall with injury or currently using an Ambulatory Assistive Device (Walker, Cane, Wheelchair, Crutches, etc.)? No PATIENT GENDER DATA: .male ALLERGIES: Reviewed and unchanged MEDICATIONS REVIEWED: Not applicable PATIENT RELEVANT IMPLANT DATA REVIEWED: Not Applicable PATIENT PRESENTS WITH AN IMPLANTABLE OR ATTACHED CUSHION SPRING ASSEMBLER: No CREATININE: Creatinine Date Value Ref Range Status 08/06/2023 0.67 (L) 0.73 - 1.22 mg/dL Final 02/06/2023 0.64 (L) 0.73 - 1.22 mg/dL Final 01/15/2023 0.81 0.73 - 1.22 mg/dL Final Estimated Glomerular Filtration Rate Date Value Ref Range Status 08/06/2023 100 >=60 mL/min/1.73m Final Comment: Estimated Glomerular Filtration Rate (eGFR) is calculated using the 2020 CKD-EPI creatinine equation. This equation utilizes serum creatinine, sex, and age as parameters. The creatinine assay has traceable calibration to isotope dilution- mass spectrometry. Refer to KDIGO guidelines for clinical interpretation. In patients with unstable renal function, e.g. those with acute kidney injury, the eGFRmay not accurately reflect actual GFR. eGFR- Date Value Ref Range Status 05/23/2021 >60 Final P.O.C.T. RESULTS: N/A March 12, [address] PERFORMED: No IV SITE: Ambulatory: A peripheral IV was started in the Right hand with a Angio cath: 24 gauge. POST EXAM PIV STATUS: Discontinued PROCEDURE TYPE: NM Stress: 13.27 mCi [id number] was [facility].96 mCi [id number] was administered IV for Stress Imaging at 08:07 by [facility]. ADMINISTRATION TIME: 07:25 PATIENT DISCHARGED TO: Ambulatory patient, left [place] department area. A Diagnostic radioactive procedure has taken place, with no further precautions necessary other than routine body substance precautions. More information regarding radiation safety can be found usingthis link: [email or web address] SIGNATURE: Adilene Sanchez APRN.CNM PATIENT NAME: Marie Hutson DATE: March 12, 2024 TIME: 9:37 AM PAGER/CONTACT #: documented in this encounterKing[facility] [place] Telephone encounter Note * Telephone Encounter - Edelmira Wilks RN - 03/11/2024 1:16 PM EDT Left message regarding reminder and instructions for stress test tomorrow. This included where to check in, length of test and no caffeine for 12 hours prior to test, [facility] [place]-15-[facility]24 Miscellaneous Notes* Telephone Encounter - Edelmira Wilks RN - 03/11/2024 1:16 PM EDT Left message regarding reminder and instructions for stress test tomorrow. This included where to check in, length of test and no caffeine for 12 hours prior to test, documented in this encounterKing[facility] [place] History of Present illness Narrative* Sher Jules MD - 03/11/2024 12:50 PM EDT This note was created using [employer] Subjective Marie Hutson is a 74 year old male. He was scheduled for stress test. His hypertension, lipidemia, and diabetes mellitus were historically controlled. Labs needed updating. Review of Systems Constitutional: Negative. Respiratory: Negative for shortness of breath. Cardiovascular: Negative for chest pain. Gastrointestinal: Negative for abdominal pain and blood in stool. Neurological: Negative. 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 Obesity, Class I, Bmi 30-34.9 Social History Tobacco Use Smoking status: Former Packs/day: 1.00 Years: 34.00 Additional pack years: 0.00 Total pack years: 34.00 Types: Cigarettes Quit date: 10/28/2002 Years since quittin.3 Smokeless tobacco: Never Vaping Use Vaping Use: Never used Substance Use Topics Alcohol use: Yes Alcohol/week: 30.0 standard drinks of alcohol Types: 30 Cans of Beer (12oz) per week Comment: 6 beers per day, sometimes less Drug use: Yes Frequency: 2.0 times per week Comment: marijuana Current Outpatient Medications Medication Sig metFORMIN (GLUCOPHAGE) 500 mg tablet Take 2 tablets by mouth two times a day with meals. clopidogrel (PLAVIX) 75 mg tablet Take 1 tablet by mouth once daily. metoprolol tartrate, short acting, (LOPRESSOR) 25 mg tablet Take 2 tablets by mouth every 12 hours. lisinopril (ZESTRIL) 40 mg tablet Take 1 tablet by mouth two times a day. amLODIPine (NORVASC) 10 mg tablet Take 1 tablet by mouth once daily. cloNIDine HCl (CATAPRES) 0.2 mg tablet Take 1 tablet by mouth two times a day. atorvastatin (LIPITOR) 80 mg tablet Take 1 tablet by mouth daily at bedtime. For cholesterol. aspirin, enteric coated (ASPIRIN, ENTERIC COATED) 81 mg EC tablet Take 1 tablet by mouth once daily. gabapentin (NEURONTIN) 300 mg capsule Take 1 capsule by mouth daily at bedtime for 180 days. Miscellaneous Medical Supply (COMPRESSION STOCKINGS[place] [facility] [place]INGS KNEE HI 20-30 WT M79.89 therapeutic multivitamin tablet Take 1 tablet by mouth daily with breakfast. blood sugar diagnostic (ONE TOUCH ULTRA TEST) test strip Use as instructed blood sugar diagnostic (ONE TOUCH ULTRA TEST) test strip TEST BLOOD SUGARS ONCE DAILY lancets(ONE TOUCH ULTRASOFT LANCETS) Test blood sugar once daily. No current facility-administered medications for this visit. Objective BP 108/52 (BP Site: Left Arm, BP Position: Sitting, BP Cuff Size: Large Adult) Pulse (!) 48 Temp 36.4 C (97.6 F) (Temporal) Resp 16 Ht 170.2 cm (5' 7) Wt 91.6 kg (202 lb) BMI 31.64 kg/m Physical Exam Constitutional: General: He is not in acute distress. HENT: Nose: Nose normal. Cardiovascular: Rate and Rhythm: Regular rhythm. Bradycardia present. Heart sounds: No murmur heard. No gallop. Pulmonary: Effort: No respiratory distress. Breath sounds: No wheezing or rales. Abdominal: Tenderness: There is no abdominal tenderness. Musculoskeletal: Right lower leg: No edema. Left lower leg: No edema. Neurological: Mental Status: He is alert. Gait: Gait normal. Assessment and Plan 1. Medicare annual wellness visit, subsequent - ICD9: V70.0, ICD10: Z00.00 (primary diagnosis) See wellness note. 2. Special screening for malignant neoplasms, colon - ICD9: V76.51, ICD10: Z12.11 - COLONOSCOPY SCREENING - CONSULT TO GENERAL SURGERY 3. Well controlled type 2 diabetes mellitus with neurological manifestations (HCC) - ICD9: 250.60, ICD10: E11.49 - Controlled - Continue current medications - Update labs. 4. PAD (peripheral artery disease) (HCC) - ICD9: 443.9, ICD10: I73.9 - stable. 5. Coronary artery disease involving hoh coronary artery of hoh heart without angina pectoris- ICD9: 414.01, ICD10: I25.10 - Stable. Follow up per cardiology. 6. Hyperlipidemia with target LDL less than 70 - ICD9: 272.4, ICD10: E78.5 - Controlled - Continue current medications - Fasting labs soon. 7. Benign neoplasm of colon, unspecified part of colon - ICD9: 211.3, ICD10: D12.6 See #2. Sher Jules MD * hSer Jules MD - 03/11/2024 11:12 AM EDT Images from the original note were not included. Marie Hutson is a 74 year old male here for a Medicare wellness visit. Medicare Health Risk Assessment General Health Good Exercise: Minutes/Day 0 min Exercise: Days/Week 0 days Alcohol: Daily Use Patient declined Alcohol: Drinks/Day Patient declined Alcohol: 6 or more drinks Patient declined Feel off balance No Concerns: Teeth/Dentures No Concerns: Sexual function No Troubled by feelings None of the above Frequency: Eating healthy diet Nearly every day ADLs requiring help None of the above Safety precautions in home/vehicle Yes Smoke, vape, chews tobacco No Difficulty hearing No Difficulty seeing No Current Providers Specialists: I have reviewed specialist-related care of the patient in the medical record. Current care team: Patient Care Team: Sher Jules MD as PCP - General Trevor Robison MD (Neurology) Bib Patterson MD (Cardiology) Nargis Yin MD Vascular[facility] Gomez Schwab DPM, Podiatry-[facility] Outside Specialist: Genomics Scientist-Hugh Delacruz/Dr. Edwrad Adams Block Press Operator- Christian Merritt Medical/Family history review Reviewed and updated problem list, medical/surgical/family/social history, medications, and allergies. Opioid use review Opioid Medications (last 90 days) No data to display Depression screening Depression Screening PHQ-2 Score ELIZABETH-2 Total Score 03/11/2024 0 0 Depression screening tool completed and reviewed. Based on score and interview, patient is not at risk for depression. Screening tool discussed with patient, and I recommended no further interventionat this time. Cognitive screening Mini Cog Score: 5 Cognitive screening reviewed and No further action needed (score 3-5). Functional Observation Was the patient's Timed Up & Go test unsteady or ? 12 seconds? No Advance Care Planning Surrogate decision maker and/or advance care plan documented Measurements BP 108/52 Pulse 48 Temp (Src) 97.6 (Temporal) Resp 16 Ht 5' 7 (1.70m) Wt 202 lb (91.6kg) BMI 31.63 kg/(m^2). Vision Screening: Follows with optometry/ophthalmology Right: 20/20 Left: 20/ 25 Both: 20/20 Assessment/Plan Medicare annual wellness visit, subsequent (Z00.00) - Counseled on healthy diet and regular exercise - Fall avoidance information provided - Personalized prevention plan provided - Discussed need for and benefit of weight loss. BMI 31.64 kg/(m^2) - Counseled patient on alcohol intake and associated health risks - Colorectal cancer screening is due. Patient agreed to referral. * Palak Rosales LPN - 03/11/2024 10:53 AM EDT TR OPEN ACCESS QUESTIONNAIRE 1. Are you currently having any new or unusual stomach/gastrointestinal issues at this time such asconstipation, diarrhea, abdominal pain, rectal bleeding etc?No 2. Do you have any difficulty swallowing? No 3. Do you have any implanted devices such as a defibrillator, pacemaker, cardiac stents or deep brain stimulator? Yes / cardiac stents, vascular stents 4. Do you take any Blood thinners such as Coumadin, Plavix, Xarelto, Eliquis, Brilinta or any otherblood thinner? YES:Plavix and Aspirin 81mg 5. Do you have any new or past cardiac (heart) or pulmonary (lung) issues? Yes /by-pass 2012 6. Do you currently use any oxygen? No 7. Have you been hospitalized in the past 6 weeks? Yes / MD 01/28/2024, [facility] for MD 8. Have you had difficulty with anesthesia previously re: Difficult intubation? No Other difficulty or allergic reaction to anesthesia other than post op N/V? No 9. Are you on dialysis? No 10. Do you have any bleeding disorders such as hemophilia or Factor 5? No 11. Are you an Insulin Dependent Diabetic? No IF ANY OF THE TOP ELEVEN QUESTIONS ARE ANSWERED YES PLEASE SCHEDULE THE PATIENT FOR A CONSULT. scheduled 12. Is the patient's BMI 40 or greater? No:Body mass index is 31.64 kg/m .. 13. Do you take any narcotics or anti-Anxiety medications? No 14. Do you use any illegal or recreational drugs including marijuana? Yes / smokes Marijuana daily 15. Any alcohol use: YES: What type of alcohol, how much and how often do you drink? : 3 twelve ounce beers daily 16. Have you been diagnosed with chronic liver disease such as hepatitis or cirrhosis? No 17. Do you have a seizure disorder? No 18. Do you have ulcerative colitis or Crohn's disease? No 19. Are you or could you be ? No 20. Any other important health information we should be made aware of prior to your colonoscopy? No To be completed by LIP: Did patient have MAC anesthesia with a previous endoscopy procedure? No Patient appropriate for Open Access Colonoscopy: Yes: appropriate for Open Access Procedure Checklist: Prior to closing the encounter: Complete questionnaire: Yes Confirm Prep order has been Ordered/Pended: Yes. Patient's procedure could be delayed if not given the script for the prep. Please ensure the prep is escripted to pharmacy or printed. Instructions for the prep will print upon filing or pending thissmartset. Please send all open access questionnaires to [facility] Pool #[id number] documented in this encounterKing[facility] [place] Instructions* Patient Instructions* Sher Jules MD - 03/11/2024 11:30 AM EDT FASTING LABS ANY TIME SOON, PLUS URINE TESTING. documented in this encounterKing[facility] [place]-30-[facility]24 Telephone encounter Note * Telephone Encounter - Anabel Ospina - 02/25/2024 10:32 AM EDT Pharmacy verified in [facility] Patient has been identified by name and date of : Yes Patient aware RX will be sent to pharmacy. No need to notify patient. Patient phones for refill(s): Requested Prescriptions Pending Prescriptions Disp Refills metFORMIN (GLUCOPHAGE) 500 mg tablet 360 tablet 3 Sig: Take 2 tablets by mouth two times a day with meals. Date of last office visit : 02/07/2024 Date of next office visit : 03/11/2024 Last 2 Encounter Wt Readings: Date: Wt: 02/10/2024 94.8 kg (209 lb) 02/07/2024 93.8 kg (206 lb 11.2 oz) Not applicable Please advise. Anabel Ribera [facility] [place]04-30-2024 Miscellaneous Notes* Telephone Encounter - Anabel Ospina - 02/25/2024 10:32 AM EDT Pharmacy verified in [facility] Patient has been identified by name and date of : Yes Patient aware RX will be sent to pharmacy. No need to notify patient. Patient phones for refill(s): Requested Prescriptions Pending Prescriptions Disp Refills metFORMIN (GLUCOPHAGE) 500 mg tablet 360 tablet 3 Sig: Take 2 tablets by mouth two times a day with meals. Date of last office visit : 02/07/2024 Date of next office visit : 03/11/2024 Last 2 Encounter Wt Readings: Date: Wt: 02/10/2024 94.8 kg (209 lb) 02/07/2024 93.8 kg (206 lb 11.2 oz) Not applicable Please advise. Anabel Nguyen Pss documented in this encounterKing'[facility] [place] History of Present illness Narrative* Bib Patterson MD - 02/10/2024 4:16 PM EDT Images from the original note were not included. Bib Patterson MD Interventional Cardiology [address] [place] [address] Chief Complaint Patient presents with: Hospital F/U HISTORY OF PRESENT ILLNESS: Mr. Hutson is a 74 year old male seen in my office for assessment and management prior history of severe three-vessel coronary artery disease with history of bypass surgery consisted of a WRIGHT to theLAD vein graft to the right and vein graft to the mid twos marginal artery years ago recently admitted to [facility] because of unstable angina repeat cardiac catheterization revealedpatent WRIGHT to the LAD severe calcified hoh left main disease with patent vein graft to the obtuse marginal and occluded PDA graft patient underwent intervention with drug-eluting stent to the distal right coronary artery Asymptomatic denies chest pain or shortness of breath on appropriate medical therapy Cardiac Risk Factors age (male over 45, female over 55), hyperlipidemia, history of smoking, hypertension, family history of CAD PAST MEDICAL HISTORY Diagnosis Date Atherosclerosis of hoh arteries of the extremities with intermittent claudication 09/07/2010 BENIGN NEOPLASM LG BOWEL 07/29/2008 Tubular adenoma. 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 Coronary artery disease Dermatophytosis of nail 12/29/2007 Diabetic peripheral neuropathy (HCC) 05/17/2014 DVT of leg (deep venous thrombosis) (HCC) 11/16/2013 post-op CABG, rx with Xarelto Hypertrophy of prostate without urinary obstruction and other lower urinary tract symptoms (LUTS) 12/29/2007 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/29/2007 Non-ST elevation myocardial infarction (NSTEMI) 10/17/2013 Nonspecific abnormal results of liver function study 04/29/2008 Obesity, unspecified 12/29/2007 Other and unspecified hyperlipidemia PAD (peripheral artery disease) (HCC) 08/05/2009 Personal history of other malignant neoplasm of skin 11/05/2010 skin cancer Postoperative anemia 10/25/2013 Transfused on 10/25 1 U PRBC. H&H 9.2/26.3. DC on diuretic taper for dilutional component and MVI with iron and repeat as outpt Primary osteoarthritis of left knee 02/21/2018 [facility]. Type II or unspecified type diabetes mellitus without mention of complication, not stated as uncontrolled 12/29/2007 Unspecified essential hypertension PAST SURGICAL HISTORY Procedure Laterality Date ANGIOPLASTY FEMORAL/POP 09/07/2010 right BALLN ANGIOPLASTY PERC,FEM-POP 11/17/2009 APLL WITH SILVERHAWK AND ANGIOPLASTY CC DRUG ELUTING STENT 1 VESSEL 01/29/2024 PTCA LISANDRO distal RCA COLONOSCOPY FLX DX W/COLLJ SPEC WHEN PFRMD 07/2008 Colonoscopy COLONOSCOPY FLX DX W/COLLJ SPEC WHEN PFRMD 09/14/2013 Colonoscopy COLONOSCOPY FLX DX W/COLLJ SPEC WHEN PFRMD 12/02/2018 Colonoscopy CORONARY ARTERY BYP W/VEIN & ARTERY GRAFT 3 VEIN 10/20/2013 CABG, three grafts F ENDARTERECTOMY FEMORAL PROFUNDA Bilateral 05/24/2016 fem. endarterectomy, profundaplasty LEFT HEART CATH,PERCUTANEOUS 10/19/2013 Cardiac cath, L heart PRIM PRQ TRLUML MCHNL THRMBC N-COR N-ICRA 1ST 12/05/2009 left REVSC OPN/PRQ ILIAC ART W/STNT PLMT & ANGIOPLSTY Left 04/19/2016 with 9x29mm satish stenting SLCTV CATHJ EA 2ND+ ORD ABDL PEL/LXTR ART BRNCH 11/17/2009 LLE UNSPECIFIED ORAL SURGERY PROCEDURE, BY REPORT wisdom teeth removed FAMILY HISTORY Problem Relation Age of Onset Cancer Mother lymphoma, passed Heart Father 46 Stroke Father passed from this Cancer Maternal Grandfather unsure of the type Heart Paternal Grandfather GI Brother inflammatory bowel disease, crohn's Social History Tobacco Use Smoking status: Former Packs/day: 1.00 Years: 34.00 Additional pack years: 0.00 Total pack years: 34.00 Types: Cigarettes Quit date: 10/28/2002 Years since quittin.3 Smokeless tobacco: Never Vaping Use Vaping Use: Never used Substance Use Topics Alcohol use: Yes Alcohol/week: 42.0 standard drinks of alcohol Types: 42 Cans of Beer (12oz) per week Comment: 6 beers per day, sometimes less Drug use: Yes Frequency: 2.0 times per week Comment: marijuana ALLERGIES No Known Allergies Medications: Current Outpatient Medications Medication Sig Dispense Refill ticagrelor (BRILINTA) 90 mg tablet Take 1 tablet by mouth two times a day. atorvastatin (LIPITOR) 80 mg tablet Take 1 tablet by mouth daily at bedtime. For cholesterol. aspirin, enteric coated (ASPIRIN, ENTERIC COATED) 81 mg EC tablet Take 1 tablet by mouth once daily. metFORMIN (GLUCOPHAGE) 500 mg tablet Take 2 tablets by mouth two times a day with meals. 28 tablet 0 gabapentin (NEURONTIN) 300 mg capsule Take 1 capsule by mouth daily at bedtime for 180 days. 90 capsule 1 metFORMIN (GLUCOPHAGE) 500 mg tablet Take 2 tablets by mouth twice daily with meals. 360 tablet 3 Miscellaneous Medical Supply (COMPRESSION STOCKINGS) [facility] [place]INGS KNEE HI 20-30 WT M79.89 2 Each 3 therapeutic multivitamin tablet Take 1 tablet by mouth daily with breakfast. 0 blood sugar diagnostic (ONE TOUCH ULTRA TEST) test strip Use as instructed 100 Strip 0 blood sugar diagnostic (ONE TOUCH ULTRA TEST) test strip TEST BLOOD SUGARS ONCE DAILY 50 Strip 6 lancets(ONE TOUCH ULTRASOFT LANCETS) Test blood sugar once daily. 100 3 clopidogrel (PLAVIX) 75 mg tablet Take 1 tablet by mouth once daily. 90 tablet 3 metoprolol tartrate, short acting, (LOPRESSOR) 25 mg tablet Take 2 tablets by mouth every 12 hours.360 tablet 3 lisinopril (ZESTRIL) 40 mg tablet Take 1 tablet by mouth two times a day. 180 tablet 3 amLODIPine (NORVASC) 10 mg tablet Take 1 tablet by mouth once daily. 90 tablet 3 cloNIDine HCl (CATAPRES) 0.2 mg tablet Take 1 tablet by mouth two times a day. 180 tablet 3 Current Facility-Administered Medications Medication Dose Route Frequency Provider Last Rate Last Admin regadenoson 0.4 mg injection (LEXISCAN) 0.4 mg INTRAVENOUS DIRECTED PRBib Boone MD aminophylline 50-250 mg injection 50-250 mg INTRAVENOUS DIRECTED Bib Mendoza MD metoprolol 2.5-5 mg injection (LOPRESSOR) 2.5-5 mg INTRAVENOUS DIRECTED PRN Bib Patterson MD Review of Systems Constitutional: Negative for chills, diaphoresis, fever, malaise/fatigue and weight loss. HENT: Negative for congestion, ear discharge, ear pain, hearing loss, nosebleeds, sinus pain, sore throat and tinnitus. Eyes: Negative for blurred vision, double vision, photophobia, pain, discharge and redness. Respiratory: Negative for cough, hemoptysis, sputum production, shortness of breath, wheezing and stridor. Cardiovascular: Negative for chest pain, palpitations, orthopnea, claudication, leg swelling and PND. Gastrointestinal: Negative for abdominal pain, blood in stool, constipation, diarrhea, heartburn, melena, nausea and vomiting. Genitourinary: Negative for dysuria, flank pain, frequency, hematuria and urgency. Musculoskeletal: Negative for back pain, falls, joint pain, myalgias and neck pain. Skin: Negative for itching and rash. Neurological: Negative for dizziness, tingling, tremors, sensory change, speech change, focal weakness, seizures, loss of consciousness, weakness and headaches. Endo/Heme/Allergies: Negative for environmental allergies and polydipsia. Does not bruise/bleed easily. Psychiatric/Behavioral: Negative for depression, hallucinations, memory loss, substance abuse and suicidal ideas. The patient is not nervous/anxious and does not have insomnia. Physical Examination: Vitals:BP 123/68 Pulse 84 Wt 209 lb (94.8kg) SpO2 99% BP w/Orthostatic Vitals Date and Time Orthostatic BP Orthostatic Pulse BP Pulse BP Position BP Site BP Cuff Size 02/10/24 1457 -- -- 123/68 84 -- -- -- Last 2 Encounter Wt Readings: Date: Wt: 02/10/2024 94.8 kg (209 lb) 02/07/2024 93.8 kg (206 lb 11.2 oz) Physical Exam Constitutional: General: He is not in acute distress. Appearance: He is not diaphoretic. HENT: Head: Normocephalic and atraumatic. Right Ear: External ear normal. Left Ear: External ear normal. Nose: Nose normal. Mouth/Throat: Pharynx: Oropharynx is clear. Eyes: General: Right eye: No discharge. Left eye: No discharge. Conjunctiva/sclera: Conjunctivae normal. Pupils: Pupils are equal, round, and reactive to light. Cardiovascular: Rate and Rhythm: Normal rate and regular rhythm. Heart sounds: Normal heart sounds, S1 normal and S2 normal. No murmur heard. No friction rub. No gallop. No S3 or S4 sounds. Pulmonary: Effort: Pulmonary effort is normal. No respiratory distress. Breath sounds: Normal breath sounds. No wheezing or rales. Chest: Chest wall: No tenderness. Musculoskeletal: General: Normal range of motion. Cervical back: Normal range of motion and neck supple. Skin: General: Skin is warm and dry. Neurological: Mental Status: He is alert and oriented to person, place, and time. Psychiatric: Mood and Affect: Mood normal. Thought Content: Thought content normal. Judgment: Judgment normal. Pertinent Labs: CBC: Hemoglobin (g/dL) Date Value 02/06/2023 13.2 11/21/2020 13.9 Hematocrit (%) Date Value 02/06/2023 36.9 11/21/2020 39.6 WBC (k/uL) Date Value 02/06/2023 4.16 11/21/2020 4.05 Platelet Count (k/uL) Date Value 02/06/2023 208 11/21/2020 201 BMP: Glucose (mg/dL) Date Value 08/06/2023 130 05/23/2021 129 Potassium (mmol/L) Date Value 08/06/2023 4.8 05/23/2021 4.4 Sodium (mmol/L) Date Value 08/06/2023 130 05/23/2021 136 Chloride (mmol/L) Date Value 08/06/2023 97 05/23/2021 103 CO2 (mmol/L) Date Value 08/06/2023 19 05/23/2021 21 Creatinine (mg/dL) Date Value 08/06/2023 0.67 05/23/2021 0.86 BUN (mg/dL) Date Value 08/06/2023 11 05/23/2021 15 Anion Gap (mmol/L) Date Value 08/06/2023 14 05/23/2021 12 Calcium (mg/dL) Date Value 05/23/2021 9.6 Calcium, Total (mg/dL) Date Value 08/06/2023 9.4 INR: Lipid Profile: Cholesterol, Total Date Value Ref Range Status 02/06/2023 124 <200 mg/dL Final Comment: <200 mg/dL, Desirable 200-239 mg/dL, Borderline high >239 mg/dL, High HDL Cholesterol Date Value Ref Range Status 02/06/2023 69 >39 mg/dL Final Comment: 40-59 mg/dL, Acceptable >59 mg/dL, High: Negative risk factor for coronary heart disease <40 mg/dL, Low: Positive risk factor for coronary heart disease LDL Cholesterol Date Value Ref Range Status 02/06/2023 45 <100 mg/dL Final Comment: <100 mg/dL, Optimal 100-129 mg/dL, Near optimal/above optimal 130-159 mg/dL, Borderline high 160-189 mg/dL, High >189 mg/dL, Very high Secondary prevention optimal LDL Cholesterol levels are recommended to be < 70 mg/dL Triglyceride Date Value Ref Range Status 02/06/2023 52 <150 mg/dL Final Comment: <150 mg/dL, Normal 150-199 mg/dL, Borderline high 200-499 mg/dL, High >499 mg/dL, Very high Hemoglobin A1C: No results found for: HGBA1C TSH: No results found for: TSHREFL Prior Cardiac Testing none Assessment and Plan: 75 years old gentleman with severe hoh coronary artery disease and history of bypass surgery ASSESSMENT/PLAN: 1. 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) - ICD9: 414.00, V45.89, ICD10: I25.10, Z98.61 (primary diagnosis) Successful drug-eluting stent to the distal right coronary artery I reviewed his angiogram severe calcified left main 90 degree circumflex of the left main small territory no indication for intervention WRIGHT territory cover the LAD distribution Recommend only medical therapy - CARDIAC REHAB II OUTPT ([place]) - [place] CARDIAC PERF STRESS/PHARM - REGADENOSON 0.4 MG/5 ML INTRAVENOUS SYRINGE - AMINOPHYLLINE 250 MG/10 ML INTRAVENOUS SOLUTION - METOPROLOL TARTRATE 5 MG/5 ML INTRAVENOUS SOLUTION 2. Essential hypertension - ICD9: 401.9, ICD10: I10 - Controlled - Continue current medications - Recommend home blood pressure monitoring, to bring results to next visit - Encouraged sodium restriction, DASH or Mediterranean diet - Recommend regular aerobic exercise - LISINOPRIL 40 MG TABLET - CLONIDINE HCL 0.2 MG TABLET Will increase his beta-luis alberto to 50 mg twice a day discontinue Lasix Discontinue hydralazine 3. PAD (peripheral artery disease) (HCC) - ICD9: 443.9, ICD10: I73.9 Per Vascular surgery Bib Patterson MD Follow up plannin weeks Electronically signed by Bib Patterson MD on February 10, 2024, 4:16 PM The above note was partially created using a dictation recognition software. A reasonable attempt has been made to correct any errors. documented in this encounterKing[facility] [place] History of Present illness Narrative* Sher Jules MD - 02/07/2024 1:52 PM EDT This note was created using Win[employer]Candy[employer]. Subjective Patient presents with: Hospital F/U: D/c from [facility] on 01/29 for chest pain an elevated troponin, heart cath completed Transitional Care Management Progress Note The patients TCM visit was performed within the 14 days of discharge. Patient's Date of discharge: 01/30/24 Date of initial coordinator contact after discharge: 01/30 Discharge diagnosis: Non STEMI Medication review completed Yes Sher Jules MD Provider Documentation: In follow-up of hospitalization, Marie Hutson is a 74 year old male with the chief complaint of transition of care. I have reviewed the patient s last hospital course including diagnostic testing performed during this hospitalization, their discharge medications, and my assessment and plan with the patient and anyfamily members present at today s visit. Marie was admitted with left arm pain and found to have a STEMI. Xray on ER raised the concern for a RUL density but CTA chest was negative for mass or PE and significant vascular calcifications of his aorta and coronaries. Cardiac cath was done and PTCA, LISANDRO to lesion in distal RCA was done. Further interventions suggested. His medications were adjusted. His symptoms resolved. He will follow up with Dr. Patterson in 3 days. Review of Systems Constitutional: Negative for fatigue and fever. HENT: Negative. Respiratory: Negative for cough, chest tightness and shortness of breath. Cardiovascular: Negative for chest pain, palpitations and leg swelling. Gastrointestinal: Negative for abdominal pain, constipation, nausea and vomiting. Musculoskeletal: Negative for myalgias. Neurological: Negative for dizziness, weakness, numbness and headaches. 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 Obesity, Class I, Bmi 30-34.9 Social History Tobacco Use Smoking status: Former Packs/day: 1.00 Years: 34.00 Additional pack years: 0.00 Total pack years: 34.00 Types: Cigarettes Quit date: 10/28/2002 Years since quittin.2 Smokeless tobacco: Never Vaping Use Vaping Use: Never used Substance Use Topics Alcohol use: Yes Alcohol/week: 42.0 standard drinks of alcohol Types: 42 Cans of Beer (12oz) per week Comment: 6 beers per day, sometimes less Drug use: Yes Frequency: 2.0 times per week Comment: marijuana Current Outpatient Medications Medication Sig furosemide (LASIX) 40 mg tablet Take 1 tablet by mouth every afternoon. metoprolol tartrate, short acting, (LOPRESSOR) 25 mg tablet Take 1 tablet by mouth every 12 hours. KLOR-CON M20 20 mEq tablet Take 1 tablet by mouth once daily. ticagrelor (BRILINTA) 90 mg tablet Take 1 tablet by mouth two times a day. lisinopril (ZESTRIL) 40 mg tablet Take 1 tablet by mouth two times a day. amLODIPine (NORVASC) 10 mg tablet Take 1 tablet by mouth once daily. predniSONE (DELTASONE) 10 mg tablet Take 4 tabs daily x 3 days, then 3 tabs x 3 days, 2 tabs x 3 days, then 1 tab x3 days with food. metFORMIN (GLUCOPHAGE) 500 mg tablet Take 2 tablets by mouth two times a day with meals. gabapentin (NEURONTIN) 300 mg capsule Take 1 capsule by mouth daily at bedtime for 180 days. hydrALAZINE (APRESOLINE) 100 mg tablet Take 1 tablet by mouth three times daily. cloNIDine HCl (CATAPRES) 0.2 mg tablet Take 1 tablet by mouth twice daily. metFORMIN (GLUCOPHAGE) 500 mg tablet Take 2 tablets by mouth twice daily with meals. Miscellaneous Medical Supply (COMPRESSION STOCKINGS) [facility] [place]ION STOCKINGS KNEE HI 20-30 WT M79.89 therapeutic multivitamin tablet Take 1 tablet by mouth daily with breakfast. blood sugar diagnostic (ONE TOUCH ULTRA TEST) test strip Use as instructed blood sugar diagnostic (ONE TOUCH ULTRA TEST) test strip TEST BLOOD SUGARS ONCE DAILY lancets(ONE TOUCH ULTRASOFT LANCETS) Test blood sugar once daily. atorvastatin (LIPITOR) 80 mg tablet Take 1 tablet by mouth daily at bedtime. For cholesterol. aspirin, enteric coated (ASPIRIN, ENTERIC COATED) 81 mg EC tablet Take 1 tablet by mouth once daily. No current facility-administered medications for this visit. Objective Blood Pressure 126/64 Pulse (Abnormal) 56 Respiration 16 Weight 93.8 kg (206 lb 11.2 oz) Oxygen Saturation 99% Body Mass Index 32.37 kg/m Physical Exam Constitutional: General: He is not in acute distress. Appearance: He is not ill-appearing or diaphoretic. HENT: Head: Normocephalic. Nose: Nose normal. Eyes: General: No scleral icterus. Conjunctiva/sclera: Conjunctivae normal. Neck: Vascular: Carotid bruit present. Comments: Left bruit vs.transmitted murmur Cardiovascular: Rate and Rhythm: Regular rhythm. Bradycardia present. Heart sounds: S1 normal and S2 normal. Murmur heard. Systolic murmur is present with a grade of 2/6. Comments: ULSB Pulmonary: Effort: No respiratory distress. Breath sounds: No wheezing or rales. Abdominal: General: There is no distension. Tenderness: There is no abdominal tenderness. Musculoskeletal: General: No tenderness. Right lower leg: No edema. Left lower leg: No edema. Neurological: General: No focal deficit present. Mental Status: He is alert. Gait: Gait is intact. Assessment and Plan 1. Non-STEMI (non-ST elevated myocardial infarction) (HCC) - ICD9: 410.70, ICD10: I21.4 (primary diagnosis) S/p PTCA, LISANDRO to RCA lesion. - TICAGRELOR 90 MG TABLET - ASPIRIN 81 MG TABLET,DELAYED RELEASE 2. S/P CABG x 3 - ICD9: V45.81, ICD10: Z95.1 3. Essential hypertension - ICD9: 401.9, ICD10: I10 - Controlled - Continue current medications - FUROSEMIDE 40 MG TABLET - KLOR-CON M20 MEQ TABLET,EXTENDED RELEASE 4. Hyperlipidemia with target LDL less than 70 - ICD9: 272.4, ICD10: E78.5 Dose maximized. - ATORVASTATIN 80 MG TABLET 5. Well controlled type 2 diabetes mellitus with neurological manifestations (HCC) - ICD9: 250.60, ICD10: E11.49 - Controlled 6. PAD (peripheral artery disease) (HCC) - ICD9: 443.9, ICD10: I73.9 Stable. 7. Abnormality of lung on CXR - ICD9: 793.19, ICD10: R91.[address] chest. 8. Obesity, Class I, BMI 30-34.9 - ICD9: 278.00, ICD10: E66.9 Weight decreasing. Sher Jules MD documented in this encounterKing[facility] [place]04-11-2024 Miscellaneous Notes* Telephone Encounter - Manda Duran MA - 02/06/2024 12:46 PM EDT Pt's notified that requested images have been received and are uploaded to [employer]. Pt scheduled 3pm Saturday per Dr. Patterson request. Manda Duran MA * Telephone Encounter - Christine Arguelles LPN - 02/04/2024 2:55 PM EDT Patients called. Verified name and date of . Thi informed of message left for her. Christine Arguelles LPN * Telephone Encounter - Manda Duran MA - 02/04/2024 1:17 PM EDT Left message to let know that we have requested actual images be pushed to [facility] for his review. Manda Duran MA * Telephone Encounter - Manda Duran MA - 02/03/2024 11:53 AM EDT [facility] notified of need for images of CTA and HC. They will push images to Epic. Await receipt. Manda Duran MA * Telephone Encounter - Manda Duran MA - 02/03/2024 11:04 AM EDT Images from the original note were not included. Bib Patterson MD Need a real images copy of the CTA and CATH TO Review and follow in the office taco * Telephone Encounter - Manda Duran MA - 01/30/2024 11:29 AM EDT Pt's son Jesse calling to update Dr. Patterson. Pt went to [place] [facility] with chest pain and was admitted. He ended up having a heart cath and stents placed. They are telling the family that pt will also need referred to Cardio to evaluate the area that he had bipass sugery on about 10 years ago. They mentioned calcifications and blockage. Pt in ICU presently. They anticipate discharge in the next few days. They are asking that Dr. Patterson review his records from [facility] and let them know who he would recommend for the referral. The CTA and HC notes are scanned into [facility]. Asking that we call back to pt's . [phone] Please review and advise. Manda Duran MA documented in this encounterKing'S [facility] [place]04-08-2024 History of Present illness Narrative* Marcela Perrin, RN - 02/03/2024 9:06 AM EDT COLONOSCOPY PATIENT OUTREACH Action/FYI Colonoscopy Recall Patient identified by Name and : Yes. --- OUTREACH OUTCOME ACTION: Consult- Telephone Call- Pt is overdue for screening colonoscopy. Pt needs consult due to medical history and/or medications. Please call patient and schedule appointment with General Surgery Provider. Last endoscopy noted 12/02/18. Repeat in 5 years. Marcela Perrin, RN documented in this encounterKing'S [facility] [place]04-05-2024 History of Present illness Narrative* Lorraine BeebeFAVIAN - 01/31/2024 2:49 PM EDT TRANSITION CARE MANAGEMENT (TCM) INITIAL CONTACT [facility] Outreach Provider Action/FYI: TCM Initial contact with patient post discharge, spoke to patient. Patient identified by name and . TRANSITION CARE MANAGEMENT INITIAL OUTREACH DOCUMENTATION: 01/31/2024 Date of Outreach: Outreach Attempt 1: Contact Made Date of Discharge 01/30/2024 SUMMARY: -Pt discharged from [facility] on 02/19/24. -Admitted for: acute chest pain,elevated trop Do you have a hospital follow up appointment with your PCP? Appointment on 02/07/24 with pcp. Yes. Remind patient of appointment date, time, and location. If not within 14 calendar days of discharge - please reschedule accordingly. MEDICATIONS: Many patients have questions or concerns about their medications once they are home. Were you prescribed any new medications? If yes, what are those medications? Lasix 40mg daily Potassium 20 meq daily Metoprolol tartrate 25mg one twice daily Brlinta 90 mg twice daily Atorvastatin was ^ to 80 mg daily Were you told to hold any medications? No Were any of your medications discontinued? If yes, what are those medications? Atorvastatin 40 mg daily Do you have any questions about getting or taking your medications? No Your discharge instructions/After visit Summary (AVS) are important in guiding you through the recovery process. Is there anything I might help you understand? No Do you have all the necessary equipment and supplies at home? Yes Medical records from recent hospitalization: Placed for provider to review Pt was at the pharmacy now. He was not able to review medicines at this time. documented in this encounterKing[facility] [place]04-04-2024 Discharge summary Author Debby Machuca [facility] January 30, 2024 11:40am Note Date/Time January 30, 2024 11:4 0am [facility] Medical Records Department [address] [place] [address] Instructions for Home/Discharge Instructions 01/30/24 1140 MR#: [id number] Acct: [id number] Name: MARIE HUTSON Rep #:[id number] : 1950 74 From: Debby Machuca MD PCP: Dr. Sher Jules MD Status:A DM IN Discharge Instructions Diet Discharge Diet: Low fat / Low cholesterol Activity Discharge Activity: Return to Normal Activity Weight Bearing Status: Weight bearing as tolerated Dressing / Incision Call your doctor if you observe: Fever of 101 or Higher, Shortness of breath, Dizziness, Swelling in the ankles, Chest pain and Increased palpitations (irregular heartbeat) Follow Up Care Test Results: Test results from this visit will be discussed in further detail at your follow- up appointment, if applicable. Discharge Plan Admission Admit Date/Time: 01/28/24 19:50 Primary Reason for Your Visit: nonstemi Attending Provider: Debby Machuca Primary Care Provider: Sher Jules Consulting Providers: Geeta Mendoza; Rubio Simeon Instructions Patient Instructions: Heart Attack Dc, Exercising After a Heart Attack, Heart Attack Meds Discharge Orders/Prescriptions Prescriptions: New furosemide 40 mg Tablet 40 mg PO DAILY Qty: 30 2RF potassium chloride 20 mEq Tablet,Er Particles/Crystals 20 meq PO DAILYCM Qty: 30 1RF metoprolol tartrate 25 mg Tablet 25 mg PO BID Qty: 60 2RF Brilinta 90 mg Tablet 90 mg PO BID Qty: 60 2RF atorvastatin 80 mg Tablet 80 mg PO QHS Qty: 30 2RF aspirin 81 mg Tablet,Delayed Release (Dr/Ec) 81 mg PO BREAKFAST Qty: 30 2RF Continued metformin 500 MG tablet 500 mg PO BID Hold Instructions: Hold for 2 days. multivitamin with folic acid [Thera] 1 TABLET tablet 1 tab PO DAILY clonidine HCl 0.2 mg tablet 0.2 mg PO BID amlodipine 10 mg tablet 10 mg PO DAILY gabapentin 300 mg capsule 300 mg PO DAILY hydralazine 100 mg tablet 100 mg PO TID lisinopril 40 mg tablet 40 mg PO BID prednisone 10 mg tablet See Taper PO TID Taper: Prednisone Taper 30 mg WITH BREAKFAST for 3 Days 20 mg WITH BREAKFAST for 3 Days 10 mg WITH BREAKFAST for 3 Days Rx Instructions: 10 mg orally; Discontinued aspirin [Adult Low Dose Aspirin] 81 MG tablet,delayed release (DR/EC) 162 mg PO DAILY cilostazol 100 mg tablet 100 mg PO BID Patient Comments: take 1 tablet by mouth twice a day atorvastatin 40 mg Tablet 40 mg PO DAILY carvedilol 12.5 mg tablet 12.5 mg PO BID Referrals / Follow Up: Rubio Simeon MD [Med Staff - Active Staff] - Within 2 Weeks Sher Jules MD [Primary Care Provider] - Within 2 Weeks Disposition Disposition (needs filled in before D/C Order can be placed): Home, Self Care 01/30/24 1140<Electronically signed by Debby Machuca MD>Debby Machuca MD CC: Dr. Rubio Simeon MD; Dr. Geeta Mendoza MD; Dr. Sher Jules MD ~ Signed [facility] Work Phone: 1(328) 690-428504-04-2024 Discharge summary Author [facility] January 30, 2024 2:03pm Note Date/Time January 30, 2024 11:[address] [place] [address] [facility] System Medical Records Department [address] [place] [address] Discharge Summary 01/30/24 1140 MR#: [id number] Acct: [id number] Name: MARIE HUTSON Rep #:[id number] : 1950 74 From: Debby Machuca MD PCP: Dr. Sher Jules MD Status:D IS IN Location: ICU ICU08-1 Providers Date of Admission: 01/28/24 Date of Discharge: 01/30/24 Primary Care Physician: Dr. Sher Jules MD Consultations 01/28/24 22:17 Consult: Cardiology Routine Consulting Provider: Rubio Simeon Reason for Consult: Chest Pain EMERGENT Consult: No MD Notified: Yes Date Notified: 01/28/24 Time Notified: 19:54 Method of Notification: ED Physician Initiated Reason For Visit: CHEST PAIN, ELEVATED TROP (?NSTEMI) Diagnosis Discharge Diagnosis (1) NSTEMI (non-ST elevated myocardial infarction): Status: Acute Code(s): I21.4 - Non-ST elevation (NSTEMI) myocardial infarction (2) CAD (coronary artery disease): Status: Acute Code(s): I25.10 - Atherosclerotic heart disease of hoh coronary artery without angina pectoris (3) History of coronary artery bypass graft x 3: Status: Acute Code(s): Z95.1 - Presence of aortocoronary bypass graft (4) Hypertension: Status: Chronic Code(s): I10 - Essential (primary) hypertension (5) Dyslipidemia: Status: Acute Code(s): E78.5 - Hyperlipidemia, unspecified Plan #Chest pain * Recent long distance drive to [place]. CT of the chest was overall negative for any evidence of PE. * Troponins elevated. Currently on heparin drip as well as aspirin and nitro drip. * Cardiology on board. Patient had cardiac cath today which showed 90 to 95% heavily calcified distal LMCA with WRIGHT to LAD patent. He was placed on aspirin and Brilinta and had staged PCI to the distal LMCA into ramus artery. * Per cardiology [address]ogram on outpatient basis * Also on high intensity statin. * 2D echo showed EF of 60% with mild concentric left ventricular hypertrophy and stage II diastolic dysfunction as well as segmental dysfunction and severely enlarged left atrium * #Questionable mass in the right upper lobe: This was aspirated chest x-ray. CT of the chest however did not show any evidence of a mass. #Tendinitis of left upper extremity. Was started on steroid taper by his PCP. To complete steroid taper and follow-up with PCP on outpatient basis. #CAD s/p CABG: This was done in 2012. She presented with non-STEMI as above. #Hyperlipidemia: On statin #Hypertension: On amlodipine and quinapril as well as metoprolol and clonidine and hydralazine. #Type 2 diabetes mellitus with neuropathy: On insulin sliding scale. Accu- CheksACHS. A1c ordered and pending. Will resume home meds. #DVT prophylaxis: Was on heparin drip on admission though this was discontinued after he went for cardiac cath. SCDs. Medications at Discharge Home Medications metformin 500 mg tablet 500 mg PO BID diabetes 04/18/16 multivitamin with folic acid 400 mcg tablet (Thera) 1 tab PO DAILY vitamin 04/18/16 amlodipine 10 mg tablet 10 mg PO DAILY 01/28/24 clonidine HCl 0.2 mg tablet 0.2 mg PO BID 01/28/24 gabapentin 300 mg capsule 300 mg PO DAILY 01/28/24 hydralazine 100 mg tablet 100 mg PO TID 01/28/24 lisinopril 40 mg tablet 40 mg PO BID 01/28/24 prednisone 10 mg tablet See Taper PO TID 01/28/24 aspirin 81 mg tablet,delayed release 81 mg PO BREAKFAST #30 tabs 01/30/24 atorvastatin 80 mg tablet 80 mg PO QHS #30 tabs 01/30/24 furosemide 40 mg tablet 40 mg PO DAILY #30 tabs 01/30/24 metoprolol tartrate 25 mg tablet 25 mg PO BID #60 tabs 01/30/24 potassium chloride 20 mEq tablet,extended release(part/cryst) 20 meq PO DAILYCM #30 tabs 01/30/24 ticagrelor 90 mg tablet (Brilinta) 90 mg PO BID #60 tabs 01/30/24 Hospital Course Operations None Procedures 2-D Echocardiogram and Cardiac catheterization Summary of Care Provided Minutes Spent on Discharge: 45 Hospital Course: Patient is a 74-year-old male with an extensive past medical history as outlinedwho was admitted through the ED on 01/28/2024 with a complaint of chest pain. He had had a recent 16-hour car drive from [place] for few days prior to admission. He had been started on prednisone for left upper extremity tendinitis by his PCPas well. His chest pain radiated into his left arm and he was noted to be hypoxic on admission 2. EKG showed paroxysmal atrial complexes with ST depression in the inferior and lateral leads the repeat EKG showed these had resolved. Chest x-ray showed a questionable 1.6 cm masslike density in the right upper lobe. CT of the chest done was negative for any evidence of PE and showedno evidence of a lung mass. Initial troponin was 339 but subsequently trended upwards. He was admitted and managed for non-STEMI. Cardiology was consulted. He was placed on heparin drip and also required nitro drip due to persistent chest pain. His chest pain subsequently improved. He had cardiac cath on 01/29/2024which showed severe residual disease in the distal left main coronary artery. He was continued on his aspirin and placed on Brilinta per cardiology. He had 2D echo which showed EF of 60% with severe LV segmental dysfunction and severelyenlarged left atrium and mildly enlarged right atrium. Per cardiology, he will need PCI with rotablation in a staged manner as outpatient. He did have a history of CAD status post CABG x 3. He was continued on his amlodipine, clonidine and lisinopril. His carvedilol was switched to metoprolol and he was also placed on high sensitivity troponin. His cilostazol was discontinued. He remained stable and was discharged home on 01/30/2024. He is to follow-up with his PCP and with cardiology within 1 to 2 weeks. Patient seen and examined prior to discharge. He had no active complaints. He had an uneventful night. Review of systems otherwise negative. Labs and vitalsreviewed. Medication reviewed and will consult. Physical Exam Const alert, oriented x3, no apparent distress and well nourished General Appearance: cooperative, comfortable and well kempt Orientation / Consciousness: awake HEENT normocephalic, head/scalp atraumatic, hearing grossly normal bilaterally, moist oral mucous membranes and oropharynx normal Mouth: oral and palatal mucosa normal Eyes PERRL, EOMs intact bilaterally and conjunctivae normal Neck no lymphadenopathy, supple and no JVD Lymph Lymphatic: no lymphadenopathy noted and no lymphedema noted Resp normal respiratory effort, normal air movement, no retractions and clear to auscultation bilaterally Cardio regular rate, regular rhythm, S1 normal heart sound, S2 normal heart sound and no murmurs GI normal to inspection, nondistended, normoactive bowel sounds, soft to palpation and non-tender Extremity normal to inspection, full ROM, normal capillary refill, no clubbing, cyanosis or edema and no calf tenderness General Extremity: no tenderness to palpation of joints or extremities Skin no rashes or lesions noted Neuro oriented x3, CN's II-XII intact bilaterally, moves all extremities, no focal motor deficits, no sensory deficits noted and deep tendon reflexes 2+ bilaterally Sensorium / Orientation: awake and alert Motor Exam: strength 5/5 throughout and general weakness Psych thought process normal, cooperative and affect normal Appearance: appropriate Weight / BMI Weight Weight: 225 lb 1.471 oz Body Mass Index (BMI) 33.2 ABG / Lab / Microbiology Data 01/30/24 04:00 01/30/24 04:00 Laboratory: Laboratory Results - last 24 hr 01/29/24 10:38: Activated Clotting Time 185 H 01/29/24 11:22: Activated Clotting Time 244 H 01/29/24 12:09: Activated Clotting Time 255 H 01/29/24 12:33: POC Glucose 140 H 01/29/24 16:39: POC Glucose 254 H 01/29/24 21:04: POC Glucose 234 H 01/30/24 04:00: WBC 14.5 H, RBC 2.95 L, Hgb 9.6 L, Hct 27.5 L, MCV 93.2, MCH 32.5 H, MCHC 34.9, RDW Std Deviation 39.7, RDW Coeff of Cedric 11.9, Plt Count 317,MPV 9.1, Sodium 135 L, Potassium 3.5, Chloride 101, Carbon Dioxide 28.0, Anion Gap 6, BUN 16, Creatinine 0.74, Estim Creat Clear Calc 99.95, Est GFR (MDRD) Af Amer 133, Est GFR (MDRD) Non-Af 110, BUN/Creatinine Ratio 21.5 H, Glucose 160 H,Calcium 8.6, Total Bilirubin 0.80, AST 46 H, ALT 22, Alkaline Phosphatase 86, Total Protein 6.0 L, Albumin 2.6 L, Globulin 3.4, Albumin/Globulin Ratio 0.8 L 01/30/24 09:57: POC Glucose 224 H Radiography Diagnostic Testing: Radiology Impression Venous Doppler Study 01/29/24 12:48 Interpretation Summary Deep veins of the bilateral lower extremities are patent and compressible segmentally. There is no evidence of bilateral lower extremity deep vein thrombosis. The bilateral great saphenous veins appear patent and compressible segmentally. Ordering Physician: Rubio Simeon Referring Physician: Sher Jules M.D. Performed By: Stephenie Contreras RVT D/C Instructions Discharge Diet: Low fat / Low cholesterol Discharge Activity: Return to Normal Activity Weight Bearing Status: Weight bearing as tolerated Call your doctor if you observe: Fever of 101 or Higher, Shortness of breath, Dizziness, Swelling in the ankles, Chest pain and Increased palpitations (irregular heartbeat) Meaningful Use Info Meaningful Use Diagnoses (Choose all that apply): AMI AMI/Post PCI/Angioplasty Aspirin given w/in 24hrs of arrival?: Yes ASA at discharge?: Yes Antiplatelet Therapy at Discharge:: Yes Statins at discharge?: Yes Heena/ARB at discharge?: Yes Beta Luis Alberto at discharge?: Yes Done w/ Acute MD measure.: Yes Documented LVEF (%): 60 Discharge Plan Admission Admit Date/Time: 01/28/24 19:50 Primary Reason for Your Visit: nonstemi Attending Provider: Debby Machuca Primary Care Provider: Sher Jules Consulting Providers: Geeta Mendoza; Rubio Simeon Instructions Patient Instructions: Heart Attack Dc, Exercising After a Heart Attack, Heart Attack Meds Discharge Orders/Prescriptions Prescriptions: New furosemide 40 mg Tablet 40 mg PO DAILY Qty: 30 2RF potassium chloride 20 mEq Tablet,Er Particles/Crystals 20 meq PO DAILYCM Qty: 30 1RF metoprolol tartrate 25 mg Tablet 25 mg PO BID Qty: 60 2RF Brilinta 90 mg Tablet 90 mg PO BID Qty: 60 2RF atorvastatin 80 mg Tablet 80 mg PO QHS Qty: 30 2RF aspirin 81 mg Tablet,Delayed Release (Dr/Ec) 81 mg PO BREAKFAST Qty: 30 2RF Continued metformin 500 MG tablet 500 mg PO BID Hold Instructions: Hold for 2 days. multivitamin with folic acid [Thera] 1 TABLET tablet 1 tab PO DAILY clonidine HCl 0.2 mg tablet 0.2 mg PO BID amlodipine 10 mg tablet 10 mg PO DAILY gabapentin 300 mg capsule 300 mg PO DAILY hydralazine 100 mg tablet 100 mg PO TID lisinopril 40 mg tablet 40 mg PO BID prednisone 10 mg tablet See Taper PO TID Taper: Prednisone Taper 30 mg WITH BREAKFAST for 3 Days 20 mg WITH BREAKFAST for 3 Days 10 mg WITH BREAKFAST for 3 Days Rx Instructions: 10 mg orally; Discontinued aspirin [Adult Low Dose Aspirin] 81 MG tablet,delayed release (DR/EC) 162 mg PO DAILY cilostazol 100 mg tablet 100 mg PO BID Patient Comments: take 1 tablet by mouth twice a day atorvastatin 40 mg Tablet 40 mg PO DAILY carvedilol 12.5 mg tablet 12.5 mg PO BID Referrals / Follow Up: Rubio Simeon MD [Med Staff - Active Staff] - Within 2 Weeks Sher Jules MD [Primary Care Provider] - Within 2 Weeks Disposition Disposition (needs filled in before D/C Order can be placed): Home, Self Care Charges/Coding Visit Charges Inpatient E&M: 26026 Disch Hosp >30min 01/30/24 1403 <Electronically signed by Debby Machuca MD> Cosigner Signature (if applicable): CC: Dr. Debby Machuca MD; Dr. Sher Jules MD~ Signed [facility] Work Phone: 1(653) 400-676304-04-2024 Progress note Author Rubio Simeon [facility] January 30, 2024 9:25am Note Date/Time January 30, 2024 9:25 am [facility] Medical Records Department [address] [place] [address] Progress Note - Cardiology 01/30/24 0921 MR#: [id number] Acct: [id number] Name: MARIE HUTSON Rep #:[id number] : 1950 74 From: Rubio Simeon MD PCP: Dr. Sher Jules MD Status:A DM IN Location: ICU ICU08-1 Subjective Subjective Denies any complaints. No chest pains. No shortness of breath. Objective Data Vital Signs: Vital Signs Temp Pulse Resp BP Pulse Ox O2 Del Method O2 Flow Rate 97.3 F L 62 13 154/54 H 97 Nasal Cannula 2 01/30/24 02:00 01/30/24 06:08 01/30/24 06:00 01/30/24 06:08 01/30/24 06:00 01/30/24 06:00 01/30/24 06:00 Oxygen Flow Rate (L/min) 2 Oxygen Delivery Method Nasal Cannula Weight: 225 lb 1.471 oz Body Mass Index (BMI) 33.2 Intake & Output: Intake and Output for Last 24 Hours 01/28/24 01/29/24 01/30/24 23:59 23:59 23:59 Intake Total 79.8 / 97.8 916.26 / 1016.26 1100 / 1100 Output Total 400 / 400 4475 / 4475 400 / 400 Balance -320.2 / -302.2 -3558.74 / -3458.74 700 / 700 Lab / Micro Data 01/30/24 04:00 01/30/24 04:00 Labs: Laboratory Results - last 24 hr 01/29/24 10:38: Activated Clotting Time 185 H 01/29/24 11:22: Activated Clotting Time 244 H 01/29/24 12:09: Activated Clotting Time 255 H 01/29/24 12:33: POC Glucose 140 H 01/29/24 16:39: POC Glucose 254 H 01/29/24 21:04: POC Glucose 234 H 01/30/24 04:00: WBC 14.5 H, RBC 2.95 L, Hgb 9.6 L, Hct 27.5 L, MCV 93.2, MCH 32.5 H, MCHC 34.9, RDW Std Deviation 39.7, RDW Coeff of Cedric 11.9, Plt Count 317,MPV 9.1, Sodium 135 L, Potassium 3.5, Chloride 101, Carbon Dioxide 28.0, Anion Gap 6, BUN 16, Creatinine 0.74, Estim Creat Clear Calc 99.95, Est GFR (MDRD) Af Amer 133, Est GFR (MDRD) Non-Af 110, BUN/Creatinine Ratio 21.5 H, Glucose 160 H,Calcium 8.6, Total Bilirubin 0.80, AST 46 H, ALT 22, Alkaline Phosphatase 86, Total Protein 6.0 L, Albumin 2.6 L, Globulin 3.4, Albumin/Globulin Ratio 0.8 L Rhythm Strip Rhythm Strip: Sinus rhythm with PACs Cardiology Labs/Tests 01/30/24 04:00: WBC 14.5 H, RBC 2.95 L, Hgb 9.6 L, Hct 27.5 L, MCV 93.2, MCH 32.5 H, MCHC 34.9, Plt Count 317, MPV 9.1, Sodium 135 L, Potassium 3.5, [id number], Carbon Dioxide 28.0, Anion Gap 6, BUN 16, Creatinine 0.74, Est GFR (MDRD) Af Amer 133, Est GFR (MDRD) Non-Af 110, BUN/Creatinine Ratio 21.5 H, Glucose 160H, Calcium 8.6, Total Bilirubin 0.80 Rhythm: EKG: ECHO: Stress Test: Cardiac Cath: PCI: CT Surgery: Holter monitor: EPS: PPM: CXR: Chest CT Scan: Radiography Diagnostic Testing: Radiology Impression Venous Doppler Study 01/29/24 12:48 Interpretation Summary Deep veins of the bilateral lower extremities are patent and compressible segmentally. There is no evidence of bilateral lower extremity deep vein thrombosis. The bilateral great saphenous veins appear patent and compressible segmentally. Ordering Physician: Rubio Simeon Referring Physician: Sher Jules M.D. Performed By: Stephenie Contreras RVT Physical Exam Narrative Comfortable. Lying flat in the bed. No apparent distress. Heart sounds 1 and 2 are normal. 2/6 systolic murmur at base. Chest clear to auscultation bilaterally. Abdomen is soft. Alert oriented x 3. No ankle edema. Assessment & Plan Assessment/Plan (1) NSTEMI (non-ST elevated myocardial infarction): PLAN: Status post PCI to the distal RCA. Continue aspirin. Ticagrelor. (2) CAD (coronary artery disease): PLAN: Severe residual disease in the distal left main coronary artery. Will need PCI with rotablation in a staged manner as outpatient. (3) History of coronary artery bypass graft x 3: PLAN: Will try to get records from [facility]. (4) Hypertension: PLAN: Beta-blockers, amlodipine, clonidine, lisinopril. (5) Dyslipidemia: PLAN: Continue atorvastatin. PLAN: Plan The patient's blood pressure is controlled, then may discharge home later in theday. 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 01/30/24 0925 <Electronically signed by Rubio Simeon MD> Cosigner Signature (if applicable): CC: ~ Signed [facility] Work Phone: 1(572) 245-318804-04-2024 Progress note Author [facility] January 30, 2024 6:36am Note Date/Time January 30, 2024 6:36 am [facility] Medical Records Department [address] [place] [address] Progress Note - Hospitalist 01/30/24 0635 MR#: [id number] Acct: [id number] Name: MARIE HUTSON Rep #:[id number] : 1950 74 From: Geeta Mendoza MD PCP: Dr. Sher Jules MD Status:A DM IN [facility] Telemetry per discussion with staff this AM with questionable PAF, appears intermittent. Every EKG attempt however with SR. 01/30/24 0636 <Electronically signed by Geeta Mendoza MD> Cosigner Signature (if applicable): CC: ~ Signed [facility] Work Phone: [phone] Progress note [facility] January 29, 2024 3:33pm Note Date/Time January 29, 2024 2:31 pm [facility] Medical Records Department [address] [place] [address] Progress Note 01/29/24 1422 MR#: [id number] Acct: [id number] Name: MARIE HUTSON Rep #:[id number] : 1950 74 From: Debby Machuca MD PCP: Dr. Sher Jules MD Status:A DM IN Location: ICU ICU08-1 Subjective Subjective Patient seen and examined. He had no active complaints. He hadnt had any more chest pain since admission. He denied any dizziness, lightheadedness, nausea, vomiting or shortness or any other symptoms. He is on 4L of oxygen. Review of systems is otherwise negative. Objective Data Objective Data Vital Signs: Vital Signs Temp Pulse Resp BP Pulse Ox O2 Del Method O2 Flow Rate 98.4 F 66 14 163/62 H 94 Nasal Cannula 4 01/29/24 12:00 01/29/24 13:00 01/29/24 13:00 01/29/24 13:00 01/29/24 13:00 01/29/24 13:00 01/29/24 13:00 Oxygen Flow Rate (L/min) 4 Oxygen Delivery Method Nasal Cannula Weight: 232 lb 12.93 oz Body Mass Index (BMI) 34.4 Intake & Output: Intake and Output for Last 24 Hours 01/27/24 01/28/24 01/29/24 23:59 23:59 23:59 Intake Total 79.8 / 97.8 766.26 / 766.26 Output Total 400 / 400 2575 / 2575 Balance -320.2 / -302.2 -1808.74 / -1808.74 Lab / Micro Data 01/29/24 03:01 01/29/24 03:01 Labs: Laboratory Results - last 24 hr 01/28/24 18:00: WBC 16.8 H, RBC 3.27 L, Hgb 10.7 L, Hct 30.7 L, MCV 93.9, MCH 32.7 H, MCHC 34.9, RDW Std Deviation 39.6, RDW Coeff of Cedric 11.7, Plt Count 339,MPV 9.5, Immature Gran % (Auto) 1.200 H, Neut % (Auto) 91.9 H, Lymph % (Auto) 4.6 L, Sierra % (Auto) 2.2, Eos % (Auto) 0.0, Baso % (Auto) 0.1, Absolute Neuts (auto) 15.4 H, Absolute Lymphs (auto) 0.77 L, Nucleated RBC % 0, PT 13.8, INR 1.1, APTT 43.4 H, D-Dimer Quant (PE/DVT) 1.70 H*, Sodium 129 L, Potassium 4.3, Chloride 96 L, Carbon Dioxide 23.0, Anion Gap 10, BUN 22 H, Creatinine 1.11, Estim Creat Clear Calc 71.85, Est GFR (MDRD) Af Amer 84, Est GFR (MDRD) Non-Af 69, BUN/Creatinine Ratio 19.8, Glucose 262 H, Calcium 9.6, Phosphorus 2.2 L, Magnesium 1.6, Total Bilirubin 0.90, Direct Bilirubin 0.30, AST 14 L, ALT 18, Alkaline Phosphatase 104, Troponin I High Sens 339 H*, Total Protein 7.1, Albumin 3.2, Globulin 3.9 01/28/24 20:36: Troponin I High Sens 78124 H*, Procalcitonin 0.04 01/28/24 23:04: POC Glucose 240 H 01/28/24 23:23: Urine Color Yellow, Urine Clarity Clear, Urine pH 6.0, Ur Specific [place] 1.010, Urine Protein Negative, Urine Glucose (UA) 50 H, Urine Ketones Negative, Urine Occult Blood Negative, Urine Nitrite Negative, Urine Bilirubin Negative, Urine Urobilinogen Normal, Ur Leukocyte Esterase Negative, Urine RBC 0 SEEN, Urine WBC 0 SEEN, Ur Squamous Epith Cells 0 SEEN, Urine Bacteria 0 SEEN, Urine Mucus 0 SEEN, Urine Osmolality 286, Ur Random Sodium 50, Urine Creatinine 20.80 01/29/24 00:07: APTT 73.0 H, Troponin I High Sens 45011 H* 01/29/24 03:01: WBC 15.5 H, RBC 2.68 L, Hgb 8.8 L, Hct 24.9 L, MCV 92.9, MCH 32.8 H, MCHC 35.3, RDW Std Deviation 39.3, RDW Coeff of Cedric 11.7, Plt Count 296,MPV 9.3, Immature Gran % (Auto) 0.700, Neut % (Auto) 88.5 H, Lymph % (Auto) 4.7 L, Sierra % (Auto) 6.0, Eos % (Auto) 0.0, Baso % (Auto) 0.1, Absolute Neuts (auto)13.7 H, Absolute Lymphs (auto) 0.73 L, Nucleated RBC % 0, Sodium 130 L, Potassium 3.9, Chloride 97 L, Carbon Dioxide 28.0, Anion Gap 5, BUN 19 H, Creatinine 0.87, Estim Creat Clear Calc 91.90, Est GFR (MDRD) Af Amer 111, Est GFR (MDRD) Non-Af 92, BUN/Creatinine Ratio 21.9 H, Glucose 253 H, Hemoglobin A1c6.3 H, Calcium 8.8, Phosphorus 3.6, Magnesium 1.9, Iron 87, TIBC 195 L, Iron Saturation 44.6, Ferritin 234, Total Bilirubin 0.70, AST 64 H, ALT 19, Alkaline Phosphatase 85, Total Protein 5.9 L, Albumin 2.6 L, Globulin 3.3, Albumin/Globulin Ratio 0.8 L, Triglycerides 54, Cholesterol 79, LDL Cholesterol 19, VLDL Cholesterol 11, HDL Cholesterol 49, Vitamin B12 424, Folate 17.30, TSH 0.31 L, Free T4 1.27 01/29/24 06:22: POC Glucose 194 H 01/29/24 06:55: APTT 95.3 H* 01/29/24 10:38: Activated Clotting Time 185 H 01/29/24 11:22: Activated Clotting Time 244 H 01/29/24 12:09: Activated Clotting Time 255 H 01/29/24 12:33: POC Glucose 140 H Radiography Diagnostic Testing: Radiology Impression Chest X-Ray 01/28/24 18:48 IMPRESSION: 1.6 cm masslike density in the right upper lobe. Recommend chest CT. Electronically Signed: Paco Bonilla MD at 19:35 EDT , Chest CTA 01/28/24 19:44 IMPRESSION: No evidence of acute pulmonary emboli to the segmental level. Mild interstitial edema. Electronically Signed: Paco Bonilla MD at 22:02 EDT , Echocardiogram 01/28/24 22:17 Interpretation Summary The estimated ejection fraction is 60 %. Stage 2 diastolic dysfunction. Segmental dysfunction with preserved ejection fraction (see wall motion). Mild concentric left ventricular hypertrophy. The right atrium is mildly enlarged. The left atrium is severely enlarged. Mild-Moderate (1-2+) mitral valve insufficiency. Contrast injection was performed. Compared to prior study, changes are noted. Ordering Physician: Geeta Mendoza Referring Physician: Sher Jules M.D. Performed By: Rupa Ramires, [facility] Physical Exam Const alert, oriented x3, no apparent distress and well nourished HEENT normocephalic, head/scalp atraumatic, moist oral mucous membranes and oropharynxnormal Eyes PERRL and EOMs intact bilaterally Neck no lymphadenopathy, supple and no JVD Lymph Lymphatic: no lymphadenopathy noted and no lymphedema noted Resp normal respiratory effort, normal air movement and clear to auscultation bilaterally Cardio regular rate, regular rhythm, S1 normal heart sound, S2 normal heart sound and no murmurs GI normal to inspection, nondistended, normoactive bowel sounds, soft to palpation and non-tender Extremity normal capillary refill, no clubbing, cyanosis or edema and no calf tenderness General Extremity: no tenderness to palpation of joints or extremities Neuro CN's II-XII intact bilaterally, no focal motor deficits, no sensory deficits noted and deep tendon reflexes 2+ bilaterally Motor Exam: strength 5/5 throughout and general weakness Psych thought process normal, cooperative and affect normal Appearance: appropriate Assessment & Plan Assessment/Plan (1) Chest pain: (2) Diabetes: (3) Dyslipidemia: PLAN: Plan #Chest pain * Recent long distance drive to [place]. CT of the chest was overall negative for any evidence of PE. * Troponins elevated. Currently on heparin drip as well as aspirin and nitro drip. * Cardiology on board. Patient had cardiac cath today which showed 90 to 95% heavily calcified distal LMCA with WRIGHT to LAD patent. He was placed on aspirin and Brilinta and had staged PCI to the distal LMCA into ramus artery. * Per cardiology [address] angiogram on outpatient basis * Also on high intensity statin. * 2D echo showed EF of 60% with mild concentric left ventricular hypertrophy and stage II diastolic dysfunction as well as segmental dysfunction and severely enlarged left atrium * #Questionable mass in the right upper lobe: This was aspirated chest x-ray. CT of the chest however did not show any evidence of a mass. #Tendinitis of left upper extremity. Was started on steroid taper by his PCP. To complete steroid taper and follow-up with PCP on outpatient basis. #CAD s/p CABG: This was done in 2013. She presented with non-STEMI as above. #Hyperlipidemia: On statin #Hypertension: On amlodipine and quinapril as well as metoprolol and clonidine and hydralazine. #Type 2 diabetes mellitus with neuropathy: On insulin sliding scale. Accu- CheksACHS. A1c ordered and pending. Will resume home meds. #DVT prophylaxis: Was on heparin drip on admission though this was discontinued after he went for cardiac cath. SCDs. Charges/Coding Visit Charges Inpatient E&M: 90357 Subs Hosp L2 01/29/24 1533 <Electronically signed by Debby Machuca MD> Debby Machuca MD Cosigner Signature (if applicable): CC: ~ Signed [facility] Work Phone: 1(499) 850-387104-03-2024 Discharge summary Author Kvng Jacobson [facility] January 28, 2024 10:13pm Note Date/Time January 28, 2024 6:11 pm [facility] Medical Records Department [address] [place] [id number] Emergency Department Summary 01/28/24 MR#: [id number] Acct: [id number] Name: MARIE HUTSON Rep #:[id number] : 1950 74 From: Kvng Jacobson DO PCP: Dr. Sher Jules MD Status:A DM IN Location: ICU ICU-[facility] History of Present Illness Chief Complaint: Chest Pain [facility] Medical History Branch retinal artery occlusion CAD (coronary artery disease) Diabetes mellitus, type 2 Former tobacco use Hyperlipemia Hypertension Obesity Home Medications aspirin 81 mg tablet,delayed release (Adult Low Dose Aspirin) 162 mg PO DAILY heart health 04/18/16 [History Last Taken 04/19/16] metformin 500 mg tablet 500 mg PO BID diabetes 04/18/16 [History Last Taken Unknown] multivitamin with folic acid 400 mcg tablet (Thera) 1 tab PO DAILY vitamin 04/18/16 [History Last Taken 04/19/16] cilostazol 100 mg tablet 100 mg PO BID anti platelet 04/25/21 [History Last Taken Unknown] amlodipine 10 mg tablet 10 mg PO DAILY 01/28/24 [History Last Taken Unknown] atorvastatin 40 mg tablet 40 mg PO DAILY 01/28/24 [History Last Taken Unknown] carvedilol 12.5 mg tablet 12.5 mg PO BID 01/28/24 [History Last Taken Unknown] clonidine HCl 0.2 mg tablet 0.2 mg PO BID 01/28/24 [History Last Taken Unknown] gabapentin 300 mg capsule 300 mg PO DAILY 01/28/24 [History Last Taken Unknown] hydralazine 100 mg tablet 100 mg PO TID 01/28/24 [History Last Taken Unknown] lisinopril 40 mg tablet 40 mg PO BID 01/28/24 [History Last Taken Unknown] prednisone 10 mg tablet See Taper PO TID 01/28/24 [History Last Taken Unknown] Allergy/AdvReac Type Severity Reaction Status Date / Time No Known Allergies Allergy Verified 01/28/24 17:55 Family History Mother Cancer Father CVA (cerebral vascular accident) Surgical History Failed CABG (coronary artery bypass graft) H/O angioplasty Social History (Updated 01/28/24 @ 19:[address] Geeta Mendoza MD) household members: spouse Smoking Status: Former smoker alcohol intake: current alcohol intake frequency: a few times a month substance use type: does not use EXAM Physical Exam Const Vital Signs: 01/28/24 17:52 01/28/24 17:55 01/28/24 18:18 Temperature 96.5 F L Temperature Source Temporal Pulse Rate 74 Respiratory Rate 21 H Respiratory Effort Short of Breath Blood Pressure 156/61 H Blood Pressure Mean 92 Blood Pressure Position Blood Pressure Location Pulse Ox 74 Oxygen Delivery Method Room Air Room Air Oxygen Flow Rate (L/min) 01/28/24 18:19 01/28/24 18:13 01/28/24 18:35 Temperature Temperature Source Pulse Rate 84 Respiratory Rate Respiratory Effort Blood Pressure 135/86 H 159/75 H Blood Pressure Mean 102 103 Blood Pressure Position Semi-Fowlers Semi-Fowlers Blood Pressure Location Left Arm Left Arm Pulse Ox Oxygen Delivery Method Non-Rebreather Oxygen Flow Rate (L/min) 15 01/28/24 18:39 01/28/24 18:43 01/28/24 18:26 Temperature Temperature Source Pulse Rate 86 94 Respiratory Rate 23 H 27 H Respiratory Effort Blood Pressure 151/64 H 151/64 H Blood Pressure Mean 93 93 Blood Pressure Position Semi-Fowlers Blood Pressure Location Left Arm Pulse Ox 93 Oxygen Delivery Method High Flow Oxygen Flow Rate (L/min) 8 01/28/24 18:15 01/28/24 18:03 01/28/24 18:57 Temperature 98.2 F Temperature Source Pulse Rate 82 89 Respiratory Rate 15 Respiratory Effort Blood Pressure 156/61 H 128/60 H Blood Pressure Mean 82 Blood Pressure Position Blood Pressure Location Pulse Ox 73 93 Oxygen Delivery Method Room Air Oxygen Flow Rate (L/min) 01/28/24 18:30 01/28/24 18:40 01/28/24 18:45 Temperature Temperature Source Pulse Rate 92 85 89 Respiratory Rate 18 15 16 Respiratory Effort Blood Pressure 159/75 H 151/64 H 128/60 H Blood Pressure Mean 98 90 81 Blood Pressure Position Blood Pressure Location Pulse Ox 89 94 93 Oxygen Delivery Method High Flow Oxygen Flow Rate (L/min) 8 01/28/24 19:00 01/28/24 18:39 Temperature Temperature Source Pulse Rate 92 Respiratory Rate 20 H Respiratory Effort Blood Pressure 144/62 H 151/64 H Blood Pressure Mean 85 93 Blood Pressure Position Semi-Fowlers Blood Pressure Location Left Arm Pulse Ox 92 Oxygen Delivery Method High Flow Oxygen Flow Rate (L/min) 8 MDM MDM MDM Narrative Medical decision making narrative: Patient presenting with chest pain. It is noted that he has diffuse ST depressions throughout V3 through V6, 1, aVL. There is also reciprocal ST elevation in aVR which makes me concerned for a STEMI specifically involving theLAD. Sent an EKG to Dr. Hutson who reviewed it and felt that this did look likea possible lesion at the LAD. I called a STEMI immediately. EKG was sent to Dr. Simeon for review. Patient was heparinized, given Brilinta, and aspirin 24 mg. He is still having 9/10 chest pain and was given sublingual nitroglycerin and states this is not helping. Dr. Simeon returned my call at approximately 6:10 PM and stated that this did not look like a STEMI and recommended that I give him a nitroglycerin drip and heparin drip with bolus and call him back in 15 minutes if his chest pain has not improved significantly. I was also asked to cancel the STEMI alert by Dr. Simeon. Reevaluation of the patient at 6:15 PM and the patient is still having 9/10 chest pain radiating to left arm. Repeat EKG will be obtained. 6:19 PM patient is wheezing and hypoxic and 74% on room air. He was given breathing treatments. Repeat EKG shows similar concerning signs of ischemia with ST depressions in V3 through V6 as well as 1, aVL, aVF. There is still ST elevation in aVR. This was sent to Dr. Simeon who called me back at 6:21 PM. He stated to give the patient 40 mg of Lasix and he is likely in CHF. 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 He also informed me that MRI does not cause you to be hypoxic. After breathing treatments he says he feels a little bit better. He still having chest pain but states it down to less than 5. Repeat EKG was obtained and on my interpretation is a sinus rhythm with ST depressions in V4 through V6 with peak T waves in V2, V3. EKG does look improved. The patient states his pain is now 2/10. He is still on nonrebreather but was transported to high flow oxygen via nasal cannula and is currently on 8 L. He feels improved at this point. Dr. Simeon came to the bedside to talk to the patient and felt he should be admitted to medicine. Patient is currently already on a heparin drip and nitro drip and has felt some improvement. CBC shows white blood cell count 16.8. Hemoglobin 10.7. Platelets 339. Sodium was slightly low at 129. Creatinine normal at 1.11. Glucose 262 without anion gap. Magnesium level is normal at 1.6. High-sensitivity troponin was initially 339 but delta troponin came back at 11,185. I made the hospitalist aware of this. Patient likely will need cardiac catheterization. Impression: 1. ACS 2. Chest pain 3. NSTEMI 4. Leukocytosis 5. Right sided lung mass 6. Hypoxia 7. CHF Lab Data Labs: Laboratory Results - last 24 hr 01/28/24 18:00 WBC 16.8 H RBC 3.27 L Hgb 10.7 L Hct 30.7 L MCV 93.9 MCH 32.7 H MCHC 34.9 RDW Std Deviation 39.6 RDW Coeff of Cedric 11.7 Plt Count 339 MPV 9.5 Immature Gran % (Auto) 1.200 H Neut % (Auto) 91.9 H Lymph % (Auto) 4.6 L Sierra % (Auto) 2.2 Eos % (Auto) 0.0 Baso % (Auto) 0.1 Absolute Neuts (auto) 15.4 H Absolute Lymphs (auto) 0.77 L Nucleated RBC % 0 PT 13.8 INR 1.1 APTT 43.4 H D-Dimer Quant (PE/DVT) 1.70 H* Sodium 129 L Potassium 4.3 Chloride 96 L Carbon Dioxide 23.0 Anion Gap 10 BUN 22 H Creatinine 1.11 Estim Creat Clear Calc 71.85 Est GFR (MDRD) Af Amer 84 Est GFR (MDRD) Non-Af 69 BUN/Creatinine Ratio 19.8 Glucose 262 H Calcium 9.6 Phosphorus 2.2 L Magnesium 1.6 Total Bilirubin 0.90 Direct Bilirubin 0.30 AST 14 L ALT 18 Alkaline Phosphatase 104 Troponin I High Sens 339 H* Total Protein 7.1 Albumin 3.2 Globulin 3.9 Radiography Diagnostic Testing: Clinical Impression(s) from Imaging Studies Chest X-Ray 01/28/24 18:48 IMPRESSION: 1.6 cm masslike density in the right upper lobe. Recommend chest CT. Electronically Signed: Paco Bonilla MD at 19:35 EDT , Chest CTA 01/28/24 19:44 IMPRESSION: No evidence of acute pulmonary emboli to the segmental level. Mild interstitial edema. Electronically Signed: Paco Bonilla MD at 22:02 EDT , Critical Care Time Critical care time (excluding procedures): 30-74 minutes (40), Discussing w/Patient &/or Family/Industrial Ecology Technician, Discussing w/Consultants, Arranging Admission or Transfer and Performing Direct Patient Care at Bedside Discharge Plan Disposition Disposition: Acute Care Hospital [facility] Discharge Date/Time: 01/28/24 22:06 What to do if you have Problems For any increased pain, shortness of breath, bleeding, nausea or vomiting, chestpain, or any unexpected problems, contact your Primary Care Provider. Call [facility] ([phone]) or report to the closest Emergency Room. Call 911 if necessary. 01/28/242212 <Electronically signed by Kvng Jacobson DO> Cosigner Signature (if applicable): CC: Dr. Sher Jules MD ~ Signed [facility] Work Phone: 1(120) 307-319804-03-2024 History and physical note Author Geeta Mendoza [facility] January 28, 2024 10:12pm Note Date/Time January 28, 2024 7:42 pm [facility] Medical Records Department [address] [place] [address] H&P Exam - Hospitalist 01/28/241924 MR#: [id number] Acct: [id number] Name: MARIE HUTSON Rep #:[id number] : 1950 74 From: Geeta Mendoza MD PCP: Dr. Sher Jules MD Status:A DM [facility] - General General Date of Admission: 01/28/24 Date of Service: 01/28/24 Chief Complaint: Chest pain HPI Narrative The patient is a 74 y/o M w/ PMHx: CAD s/p reported failed CABG 10/20/2013 with unclear intervention attempts, HTN, HLD, Diabetes mellitus type with chronic neuropathy, Former tobacco use, Chronic venous stasis disease, Obesity who presents to the [facility] ED on 01/28/24 with history of approximately 2 months prior having significant discomfort in his joints primarily of the bilateral wrist andhands however he had been in [place] and using his motorcycle quite a bit recentlyreturning via a very long at least 16-hour car drive from [place] this Saturday prior to current presentation with onset at that point discomfort to the left upper extremity but distal to the left elbow prompting PCP office evaluation with diagnosis at that time of suspected tendinitis with start of a prednisone taper however on day of presentation while he was lifting up his grandson who is6 years old at approximately 3 PM he had pain increased into the left upper extremity to the shoulder which was new described it as an aching with onset of dyspepsia at approximately 4 PM prompting him to take Tums with some improvementhowever he then had onset of left chest discomfort described as an aching sensation with some dyspnea rated 1-2 out of 10 in severity prompting eventual ED evaluation. Currently he notes his discomfort is improved however he is on anitroglycerin drip. He denies any dyspneic sensation at this time. He denies any episodes of diaphoresis, nausea or emesis associated with this onset. Workupin the ED included T96.5, heart rate 74, BP 156/61, respiratory rate 21, initially noted to be 73% on room air transition to a nonrebreather at 15 L withmost recent vital signs T98.2, heart rate 92, BP 144/62, respiratory rate 20, 92% on 8 L high flow, CBC with WBC 16.8, hemoglobin 10.7, MCV 93.9, platelet 339with left shift and lymphopenia, coags with PTT 43.4, D-dimer pending upon requested evaluation of patient, BMP with sodium 129, chloride 96, BUN/creatinine 22/1.11, glucose 262, initial troponin 339, EKG with sinus rhythmwith PACs with ST depressions in the inferior and lateral leads with repeat EKG demonstrating resolution of these ST segment, chest x-ray with questionable 1.6 cm masslike density in the right upper lobe with CT chest recommended. In the ED patient started on maintenance IV fluids, full-strength aspirin therapy, Lasix 40 mg IV x 1, heparin bolus and drip, nitroglycerin sublingual initially eventually transition to a nitroglycerin drip, Brilinta load, DuoNeb therapy. In the ED patient was evaluated by cardiology with recommendation for further workup of possible pulmonary emboli given prolonged recent travel and pending these findings decision for possible cardiac catheterization in the future possibly the next day however pending these workup findings. [facility] Medical History Branch retinal artery occlusion CAD (coronary artery disease) Diabetes mellitus, type 2 Former tobacco use Hyperlipemia Hypertension Obesity Home Medications aspirin 81 mg tablet,delayed release (Adult Low Dose Aspirin) 162 mg PO DAILY heart health 04/18/16 [History Last Taken 04/19/16] metformin 500 mg tablet 500 mg PO BID diabetes 04/18/16 [History Last Taken Unknown] multivitamin with folic acid 400 mcg tablet (Thera) 1 tab PO DAILY vitamin 04/18/16 [History Last Taken 04/19/16] cilostazol 100 mg tablet 100 mg PO BID anti platelet 04/25/21 [History Last Taken Unknown] amlodipine 10 mg tablet 10 mg PO DAILY 01/28/24 [History Last Taken Unknown] atorvastatin 40 mg tablet 40 mg PO DAILY 01/28/24 [History Last Taken Unknown] carvedilol 12.5 mg tablet 12.5 mg PO BID 01/28/24 [History Last Taken Unknown] clonidine HCl 0.2 mg tablet 0.2 mg PO BID 01/28/24 [History Last Taken Unknown] gabapentin 300 mg capsule 300 mg PO DAILY 01/28/24 [History Last Taken Unknown] hydralazine 100 mg tablet 100 mg PO TID 01/28/24 [History Last Taken Unknown] lisinopril 40 mg tablet 40 mg PO BID 01/28/24 [History Last Taken Unknown] prednisone 10 mg tablet See Taper PO TID 01/28/24 [History Last Taken Unknown] Allergy/AdvReac Type Severity Reaction Status Date / Time No Known Allergies Allergy Verified 01/28/24 17:55 Family History Mother Cancer Father CVA (cerebral vascular accident) Surgical History Failed CABG (coronary artery bypass graft) H/O angioplasty Social History (Updated 01/28/24 @ 19:[address] Geeta Mendoza MD) household members: spouse Smoking Status: Former smoker alcohol intake: current alcohol intake frequency: a few times a month substance use type: does not use ROS ROS Narrative Admission Review of Systems: CONSTITUTIONAL: No weight loss, fever, chills, + weakness or fatigue. HEENT: Eyes: No visual loss, blurred vision, double vision or yellow sclerae. Ears, Nose, Throat: No hearing loss, sneezing, congestion, runny nose or sore throat. SKIN: No rash or itching, lesions, wounds. CARDIOVASCULAR: + Chest discomfort, chronic lower extremity swelling. No palpitations, orthopnea, syncopal events. RESPIRATORY: + Shortness of breath. No cough or sputum, wheezing, hemoptysis. GASTROINTESTINAL: No anorexia, nausea, vomiting or diarrhea, abdominal pain, melena, BRBPR. GENITOURINARY: No dysuria, frequency, urgency or retention. NEUROLOGICAL: No headache, dizziness, syncope, paralysis, ataxia, numbness or tingling in the extremities, focal weakness, change in bowel or bladder control,seizure. MUSCULOSKELETAL: + muscle, back pain, joint pain or stiffness. HEMATOLOGIC: + Chronic anemia, easy bleeding/bruising. LYMPHATICS: No enlarged nodes. No history of splenectomy. PSYCHIATRIC: No history of depression or anxiety. ENDOCRINOLOGIC: No reports of sweating, cold or heat intolerance. No polyuria orpolydipsia. ALLERGIES: No history of asthma, hives, eczema or rhinitis. Vital Signs Vital Signs Vital Signs: 01/28/24 17:52 01/28/24 17:55 01/28/24 18:18 Temperature 96.5 F L Temperature Source Temporal Pulse Rate 74 Respiratory Rate 21 H Respiratory Effort Short of Breath Blood Pressure 156/61 H Blood Pressure Mean 92 Blood Pressure Position Blood Pressure Location Pulse Ox 74 Oxygen Delivery Method Room Air Room Air Oxygen Flow Rate (L/min) 01/28/24 18:19 01/28/24 18:13 01/28/24 18:35 Temperature Temperature Source Pulse Rate 84 Respiratory Rate Respiratory Effort Blood Pressure 135/86 H 159/75 H Blood Pressure Mean 102 103 Blood Pressure Position Semi-Fowlers Semi-Fowlers Blood Pressure Location Left Arm Left Arm Pulse Ox Oxygen Delivery Method Non-Rebreather Oxygen Flow Rate (L/min) 15 01/28/24 18:39 01/28/24 18:43 01/28/24 18:26 Temperature Temperature Source Pulse Rate 86 94 Respiratory Rate 23 H 27 H Respiratory Effort Blood Pressure 151/64 H 151/64 H Blood Pressure Mean 93 93 Blood Pressure Position Semi-Fowlers Blood Pressure Location Left Arm Pulse Ox 93 Oxygen Delivery Method High Flow Oxygen Flow Rate (L/min) 8 01/28/24 18:15 01/28/24 18:03 01/28/24 18:57 Temperature 98.2 F Temperature Source Pulse Rate 82 89 Respiratory Rate 15 Respiratory Effort Blood Pressure 156/61 H 128/60 H Blood Pressure Mean 82 Blood Pressure Position Blood Pressure Location Pulse Ox 73 93 Oxygen Delivery Method Room Air Oxygen Flow Rate (L/min) 01/28/24 18:30 01/28/24 18:40 01/28/24 18:45 Temperature Temperature Source Pulse Rate 92 85 89 Respiratory Rate 18 15 16 Respiratory Effort Blood Pressure 159/75 H 151/64 H 128/60 H Blood Pressure Mean 98 90 81 Blood Pressure Position Blood Pressure Location Pulse Ox 89 94 93 Oxygen Delivery Method Oxygen Flow Rate (L/min) 01/28/24 19:00 01/28/24 18:39 Temperature Temperature Source Pulse Rate 92 Respiratory Rate 20 H Respiratory Effort Blood Pressure 144/62 H 151/64 H Blood Pressure Mean 85 93 Blood Pressure Position Semi-Fowlers Blood Pressure Location Left Arm Pulse Ox 92 Oxygen Delivery Method Oxygen Flow Rate (L/min) Weight Weight: 223 lb 15.834 oz Body Mass Index (BMI) 32.1 Physical Exam Narrative Physical Examination: General: Awake, alert, oriented x 3 and cooperative, seated upright in the ED bed in no apparent distress, still remains on significant oxygen supplementationbut denies dyspnea, currently chest discomfort improved, 1 out of 10 in severity. Skin: Normal color, normal turgor, no icterus, no cyanosis except occasional staged ecchymoses, bilateral lower extremity venous stasis skin changes. HEENT: AT/NC, EOMI, PERRLA, MMM, no carotid bruits or JVD noted. Lungs: Mildly diminished, greater bases, appropriate effort, no pain with deep inspiratory effort, no rales, ronchi or wheezing. Heart: Currently regular rate and rhythm; no gallop, rub audible. Abdomen: Soft, obese, NTTP, ND, mildly hyperactive BS, no appreciated HSM. Extremities: No cyanosis, no clubbing, see skin, bilateral pedal to mid mcmullen 1+ edema. Neurological: Patient awake, alert, oriented as noted, cognitive function intact; pupils equally reactive to light and accommodation, cranial nerves II-XII grossly normal, moving all 4 extremities, no focal deficits, strength moderately to severely globally decreased secondary to acute presentation complaints Psychiatric: Affect appears mildly fatigued otherwise normal, no acute evidence of depressive or anxiety feelings. Results Lab / Micro Data 01/28/24 18:00 01/28/24 18:00 Labs: Laboratory Results - last 24 hr 01/28/24 18:00: WBC 16.8 H, RBC 3.27 L, Hgb 10.7 L, Hct 30.7 L, MCV 93.9, MCH 32.7 H, MCHC 34.9, RDW Std Deviation 39.6, RDW Coeff of Cedric 11.7, Plt Count 339,MPV 9.5, Immature Gran % (Auto) 1.200 H, Neut % (Auto) 91.9 H, Lymph % (Auto) 4.6 L, Sierra % (Auto) 2.2, Eos % (Auto) 0.0, Baso % (Auto) 0.1, Absolute Neuts (auto) 15.4 H, Absolute Lymphs (auto) 0.77 L, Nucleated RBC % 0, PT 13.8, INR 1.1, APTT 43.4 H, D-Dimer Quant (PE/DVT) 1.70 H*, Sodium 129 L, Potassium 4.3, Chloride 96 L, Carbon Dioxide 23.0, Anion Gap 10, BUN 22 H, Creatinine 1.11, Estim Creat Clear Calc 71.85, Est GFR (MDRD) Af Amer 84, Est GFR (MDRD) Non-Af 69, BUN/Creatinine Ratio 19.8, Glucose 262 H, Calcium 9.6, Troponin I High Sens 339 H* Imaging Radiology Impression Chest X-Ray 01/28/24 18:48 IMPRESSION: 1.6 cm masslike density in the right upper lobe. Recommend chest CT. Electronically Signed: Paco Bonilla MD at 19:35 EDT , Assessment & Plan Assessment/Plan (1) Chest pain: PLAN: Plan The patient is a 74 y/o M w/ PMHx: CAD s/p reported failed CABG 10/20/2013 with unclear intervention attempts, HTN, HLD, Diabetes mellitus type with chronic neuropathy, Former tobacco use, Chronic venous stasis disease, Obesity who presents to the [facility] ED on 01/28/24 with history of on day of presentation while hewas lifting up his grandson who is 6 years old at approximately 3 PM pain into the left upper extremity to the shoulder and eventually chest with dyspnea prompting ED evaluation. #1. Chest Pain w/ acutely elevated cardiac enzymes of unclear exact significance, some concern for possible NSTEMI however still significant concernfor underlying pulmonary emboli: Will admit to the ICU, will continue with nitroglycerin drip as well as heparin drip, D-dimer pending upon evaluation but even if mildly elevated will pursue CTA especially given chest x-ray report findings per radiology, will maintain on a monitored bed, continue serial cardiac enzymes and EKGs. Magnesium level requested. Continue medical management w/ asa, Brilinta, BB, statin w/ AM FLP. ECHO requested. Cardiology consulted as noted with evaluation in the ED. Will maintain n.p.o. status aftermidnight with judicious IV fluids as workup is still ongoing. #2. Incidental chest x-ray questionable 1.6 cm masslike density right upper lobe: CTA chest as noted pending given elevated D-dimer, will further decide course of action pending these findings. Patient does have a tobacco use history and certainly given his situation would be at an elevated risk for VTE. #3. Recent history of suspected tendinitis left upper extremity as well as possible bilateral carpal tunnel: As noted patient with recent hand and wrist discomfort but this had been following significant overuse per discussions as well as discomfort in the left distal arm below the elbow with recent PCP officeevaluation and start of steroid taper therapy, certainly could be multifactorialand this could certainly be a component still thus per discussion with cardiology we will continue steroid taper with recommended usage alteration and follow-up with PCP. #4. Leukocytosis, suspected likely related with recent prednisone therapy: CBC with WBC 16.8, no recent infectious presentation per himself and his spouse, recent travel however but they were on their own and in their own car, recent steroid therapy as noted suspected etiology, will continue to trend. #5. Chronic normocytic anemia: Admission hemoglobin 10.7, MCV 93.9, baseline hemoglobin appears more recently 12 however this is since 2021 therefore to be cautious especially given this type of presentation and planned potential anticoagulation will obtain iron panel, ferritin, guaiac, vitamin B12 and folic acid level, repeat CBC in AM. #6. CAD: Status post attempted CABG at [facility] 10/16/2013 supposedly failed, records requested, s/p PCI will continue aspirin, cilostazol will be held for now given transition per cardiology discretion to Brilinta, continue metoprolol, quinapril, statin therapy. #7. Hypertension: Continue home regimen including clonidine, amlodipine, quinapril, metoprolol with adjustments per cardiology discretion, continued on nitroglycerin drip as noted, PRN hydralazine. #8. Hyperlipidemia: Continue home statin regimen. AM FLP. #9. Diabetes mellitus type II with chronic diabetic neuropathy: Hold oral home regimen, hemoglobin A1c requested, nutrition consulted for education and teaching, ADA diet until n.p.o. status pending further workup, accu checks w/ ISS, continue patient home gabapentin regimen. #10. Former tobacco use: Encourage continued tobacco cessation. #11. DVT prophylaxis: Heparin drip. #12. CODE status: Patient [place] is his who is present and living will is currently in place. Discussed CODE status at length including difference betweenFULL code, DNR-CCA and DNR-CC status. Following discussions about the differences in these status, requested Full Code status. Advanced Care Planning Face to Face Time: 16 minutes. Charges/Coding Visit Charges Inpatient E&M: 85414 Init Hosp L3 Procedures Hospitalists Procedures: 98409 Advncd Care Plan 30 Min 01/28/241947 <Electronically signed by Geeta Mendoza MD> Cosigner Signature (if applicable): CC: Dr. Geeta Mendoza MD; Dr. Sher Jules MD~ Signed ADDENDUM by Dr. Geeta Mendoza MD on 01/28/24 at 1952 Addendum D-dimer resulted 1.70, CTPA ordered for ED physician. Additional diagnosis: Acute hyponatremia, hypochloremia, unclear specific etiology, some concern for cardiology for possible overload in this acute setting therefore Lasix IV x 1 per ED and oral initiated but is uncertain and from discussion given recent issues with pain and steroid usage suspect poor oral intake to therefore some concern could be hypovolemic, will continue to trend, defer IVFs given diuresis as noted, await CTPA as will give additional information, will await in the interim FeNa, UOsm. 01/28/241952<Electronically signed by Geeta Mendoza MD> Cosigner Signature (if applicable): cc: Dr. Geeta Mendoza MD; Dr. Sher Jules MD ~* Signed ADDENDUM by Dr. Geeta Mendoza MD on 01/28/24 at 2212 Addendum CTPA with no evidence of acute pulmonary emboli to the segmental level, mild interstitial edema. Will hold oral lasix and continue with pulse IV lasix. If needed may use BIPAP, but currently appears comfortable. 01/28/242211<Electronically signed by Geeta Mendzoa MD> Cosigner Signature (if applicable): cc: Dr. Geeta Mendoza MD; Dr. Sher Jules MD ~* Signed [facility] Work Phone: [phone] 651-597304-02-2024 History and physical note Author [facility] January 28, 2024 7:53pm Note Date/Time January 28, 2024 7:42 pm [facility] Medical Records Department [address] [place] [address] H&P Exam - Hospitalist 01/28/241924 MR#: [id number] Acct: [id number] Name: MARIE HUTSON Rep #:[id number] : 1950 74 From: Geeta Mendoza MD PCP: Dr. Sher Jules MD Status:R EG ER Location: ED HPI - General General Date of Admission: 01/28/24 Date of Service: 01/28/24 Chief Complaint: Chest pain HPI Narrative The patient is a 74 y/o M w/ PMHx: CAD s/p reported failed CABG 10/20/2013 with unclear intervention attempts, HTN, HLD, Diabetes mellitus type with chronic neuropathy, Former tobacco use, Chronic venous stasis disease, Obesity who presents to the [facility] ED on 01/28/24 with history of approximately 2 months prior having significant discomfort in his joints primarily of the bilateral wrist andhands however he had been in [place] and using his motorcycle quite a bit recentlyreturning via a very long at least 16-hour car drive from [place] this Saturday prior to current presentation with onset at that point discomfort to the left upper extremity but distal to the left elbow prompting PCP office evaluation with diagnosis at that time of suspected tendinitis with start of a prednisone taper however on day of presentation while he was lifting up his grandson who is6 years old at approximately 3 PM he had pain increased into the left upper extremity to the shoulder which was new described it as an aching with onset of dyspepsia at approximately 4 PM prompting him to take Tums with some improvementhowever he then had onset of left chest discomfort described as an aching sensation with some dyspnea rated 1-2 out of 10 in severity prompting eventual ED evaluation. Currently he notes his discomfort is improved however he is on anitroglycerin drip. He denies any dyspneic sensation at this time. He denies any episodes of diaphoresis, nausea or emesis associated with this onset. Workupin the ED included T96.5, heart rate 74, BP 156/61, respiratory rate 21, initially noted to be 73% on room air transition to a nonrebreather at 15 L withmost recent vital signs T98.2, heart rate 92, BP 144/62, respiratory rate 20, 92% on 8 L high flow, CBC with WBC 16.8, hemoglobin 10.7, MCV 93.9, platelet 339with left shift and lymphopenia, coags with PTT 43.4, D-dimer pending upon requested evaluation of patient, BMP with sodium 129, chloride 96, BUN/creatinine 22/1.11, glucose 262, initial troponin 339, EKG with sinus rhythmwith PACs with ST depressions in the inferior and lateral leads with repeat EKG demonstrating resolution of these ST segment, chest x-ray with questionable 1.6 cm masslike density in the right upper lobe with CT chest recommended. In the ED patient started on maintenance IV fluids, full-strength aspirin therapy, Lasix 40 mg IV x 1, heparin bolus and drip, nitroglycerin sublingual initially eventually transition to a nitroglycerin drip, Brilinta load, DuoNeb therapy. In the ED patient was evaluated by cardiology with recommendation for further workup of possible pulmonary emboli given prolonged recent travel and pending these findings decision for possible cardiac catheterization in the future possibly the next day however pending these workup findings. [facility] Medical History Branch retinal artery occlusion CAD (coronary artery disease) Diabetes mellitus, type 2 Former tobacco use Hyperlipemia Hypertension Obesity Home Medications aspirin 81 mg tablet,delayed release (Adult Low Dose Aspirin) 162 mg PO DAILY [facility] 04/18/16 [History Last Taken 04/19/16] metformin 500 mg tablet 500 mg PO BID diabetes 04/18/16 [History Last Taken Unknown] multivitamin with folic acid 400 mcg tablet (Thera) 1 tab PO DAILY vitamin 04/18/16 [History Last Taken 04/19/16] cilostazol 100 mg tablet 100 mg PO BID anti platelet 04/25/21 [History Last Taken Unknown] amlodipine 10 mg tablet 10 mg PO DAILY 01/28/24 [History Last Taken Unknown] atorvastatin 40 mg tablet 40 mg PO DAILY 01/28/24 [History Last Taken Unknown] carvedilol 12.5 mg tablet 12.5 mg PO BID 01/28/24 [History Last Taken Unknown] clonidine HCl 0.2 mg tablet 0.2 mg PO BID 01/28/24 [History Last Taken Unknown] gabapentin 300 mg capsule 300 mg PO DAILY 01/28/24 [History Last Taken Unknown] hydralazine 100 mg tablet 100 mg PO TID 01/28/24 [History Last Taken Unknown] lisinopril 40 mg tablet 40 mg PO BID 01/28/24 [History Last Taken Unknown] prednisone 10 mg tablet See Taper PO TID 01/28/24 [History Last Taken Unknown] Allergy/AdvReac Type Severity Reaction Status Date / Time No Known Allergies Allergy Verified 01/28/24 17:55 Family History Mother Cancer Father CVA (cerebral vascular accident) Surgical History Failed CABG (coronary artery bypass graft) H/O angioplasty Social History (Updated 01/28/24 @ 19:[address] Geeta Mendoza MD) household members: spouse Smoking Status: Former smoker alcohol intake: current alcohol intake frequency: a few times a month substance use type: does not use ROS ROS Narrative Admission Review of Systems: CONSTITUTIONAL: No weight loss, fever, chills, + weakness or fatigue. HEENT: Eyes: No visual loss, blurred vision, double vision or yellow sclerae. Ears, Nose, Throat: No hearing loss, sneezing, congestion, runny nose or sore throat. SKIN: No rash or itching, lesions, wounds. CARDIOVASCULAR: + Chest discomfort, chronic lower extremity swelling. No palpitations, orthopnea, syncopal events. RESPIRATORY: + Shortness of breath. No cough or sputum, wheezing, hemoptysis. GASTROINTESTINAL: No anorexia, nausea, vomiting or diarrhea, abdominal pain, melena, BRBPR. GENITOURINARY: No dysuria, frequency, urgency or retention. NEUROLOGICAL: No headache, dizziness, syncope, paralysis, ataxia, numbness or tingling in the extremities, focal weakness, change in bowel or bladder control,seizure. MUSCULOSKELETAL: + muscle, back pain, joint pain or stiffness. HEMATOLOGIC: + Chronic anemia, easy bleeding/bruising. LYMPHATICS: No enlarged nodes. No history of splenectomy. PSYCHIATRIC: No history of depression or anxiety. ENDOCRINOLOGIC: No reports of sweating, cold or heat intolerance. No polyuria orpolydipsia. ALLERGIES: No history of asthma, hives, eczema or rhinitis. Vital Signs Vital Signs Vital Signs: 01/28/24 17:52 01/28/24 17:55 01/28/24 18:18 Temperature 96.5 F L Temperature Source Temporal Pulse Rate 74 Respiratory Rate 21 H Respiratory Effort Short of Breath Blood Pressure 156/61 H Blood Pressure Mean 92 Blood Pressure Position Blood Pressure Location Pulse Ox 74 Oxygen Delivery Method Room Air Room Air Oxygen Flow Rate (L/min) 01/28/24 18:19 01/28/24 18:13 01/28/24 18:35 Temperature Temperature Source Pulse Rate 84 Respiratory Rate Respiratory Effort Blood Pressure 135/86 H 159/75 H Blood Pressure Mean 102 103 Blood Pressure Position Semi-Fowlers Semi-Fowlers Blood Pressure Location Left Arm Left Arm Pulse Ox Oxygen Delivery Method Non-Rebreather Oxygen Flow Rate (L/min) 15 01/28/24 18:39 01/28/24 18:43 01/28/24 18:26 Temperature Temperature Source Pulse Rate 86 94 Respiratory Rate 23 H 27 H Respiratory Effort Blood Pressure 151/64 H 151/64 H Blood Pressure Mean 93 93 Blood Pressure Position Semi-Fowlers Blood Pressure Location Left Arm Pulse Ox 93 Oxygen Delivery Method High Flow Oxygen Flow Rate (L/min) 8 01/28/24 18:15 01/28/24 18:03 01/28/24 18:57 Temperature 98.2 F Temperature Source Pulse Rate 82 89 Respiratory Rate 15 Respiratory Effort Blood Pressure 156/61 H 128/60 H Blood Pressure Mean 82 Blood Pressure Position Blood Pressure Location Pulse Ox 73 93 Oxygen Delivery Method Room Air Oxygen Flow Rate (L/min) 01/28/24 18:30 01/28/24 18:40 01/28/24 18:45 Temperature Temperature Source Pulse Rate 92 85 89 Respiratory Rate 18 15 16 Respiratory Effort Blood Pressure 159/75 H 151/64 H 128/60 H Blood Pressure Mean 98 90 81 Blood Pressure Position Blood Pressure Location Pulse Ox 89 94 93 Oxygen Delivery Method Oxygen Flow Rate (L/min) 01/28/24 19:00 01/28/24 18:39 Temperature Temperature Source Pulse Rate 92 Respiratory Rate 20 H Respiratory Effort Blood Pressure 144/62 H 151/64 H Blood Pressure Mean 85 93 Blood Pressure Position Semi-Fowlers Blood Pressure Location Left Arm Pulse Ox 92 Oxygen Delivery Method Oxygen Flow Rate (L/min) Weight Weight: 223 lb 15.834 oz Body Mass Index (BMI) 32.1 Physical Exam Narrative Physical Examination: General: Awake, alert, oriented x 3 and cooperative, seated upright in the ED bed in no apparent distress, still remains on significant oxygen supplementationbut denies dyspnea, currently chest discomfort improved, 1 out of 10 in severity. Skin: Normal color, normal turgor, no icterus, no cyanosis except occasional staged ecchymoses, bilateral lower extremity venous stasis skin changes. HEENT: AT/NC, EOMI, PERRLA, MMM, no carotid bruits or JVD noted. Lungs: Mildly diminished, greater bases, appropriate effort, no pain with deep inspiratory effort, no rales, ronchi or wheezing. Heart: Currently regular rate and rhythm; no gallop, rub audible. Abdomen: Soft, obese, NTTP, ND, mildly hyperactive BS, no appreciated HSM. Extremities: No cyanosis, no clubbing, see skin, bilateral pedal to mid mcmuleln 1+ edema. Neurological: Patient awake, alert, oriented as noted, cognitive function intact; pupils equally reactive to light and accommodation, cranial nerves II-XII grossly normal, moving all 4 extremities, no focal deficits, strength moderately to severely globally decreased secondary to acute presentation complaints Psychiatric: Affect appears mildly fatigued otherwise normal, no acute evidence of depressive or anxiety feelings. Results Lab / Micro Data 01/28/24 18:00 01/28/24 18:00 Labs: Laboratory Results - last 24 hr 01/28/24 18:00: WBC 16.8 H, RBC 3.27 L, Hgb 10.7 L, Hct 30.7 L, MCV 93.9, MCH 32.7 H, MCHC 34.9, RDW Std Deviation 39.6, RDW Coeff of Cedric 11.7, Plt Count 339,MPV 9.5, Immature Gran % (Auto) 1.200 H, Neut % (Auto) 91.9 H, Lymph % (Auto) 4.6 L, Sierra % (Auto) 2.2, Eos % (Auto) 0.0, Baso % (Auto) 0.1, Absolute Neuts (auto) 15.4 H, Absolute Lymphs (auto) 0.77 L, Nucleated RBC % 0, PT 13.8, INR 1.1, APTT 43.4 H, D-Dimer Quant (PE/DVT) 1.70 H*, Sodium 129 L, Potassium 4.3, Chloride 96 L, Carbon Dioxide 23.0, Anion Gap 10, BUN 22 H, Creatinine 1.11, Estim Creat Clear Calc 71.85, Est GFR (MDRD) Af Amer 84, Est GFR (MDRD) Non-Af 69, BUN/Creatinine Ratio 19.8, Glucose 262 H, Calcium 9.6, Troponin I High Sens 339 H* Imaging Radiology Impression Chest X-Ray 01/28/24 18:48 IMPRESSION: 1.6 cm masslike density in the right upper lobe. Recommend chest CT. Electronically Signed: Paco Bonilla MD at 19:35 EDT Reading Location ID and State: [facility] / [place] Tel , Service support , Assessment & Plan Assessment/Plan (1) Chest pain: PLAN: Plan The patient is a 74 y/o M w/ PMHx: CAD s/p reported failed CABG 10/20/2013 with unclear intervention attempts, HTN, HLD, Diabetes mellitus type with chronic neuropathy, Former tobacco use, Chronic venous stasis disease, Obesity who presents to the [facility] ED on 01/28/24 with history of on day of presentation while hewas lifting up his grandson who is 6 years old at approximately 3 PM pain into the left upper extremity to the shoulder and eventually chest with dyspnea prompting ED evaluation. #1. Chest Pain w/ acutely elevated cardiac enzymes of unclear exact significance, some concern for possible NSTEMI however still significant concernfor underlying pulmonary emboli: Will admit to the ICU, will continue with nitroglycerin drip as well as heparin drip, D-dimer pending upon evaluation but even if mildly elevated will pursue CTA especially given chest x-ray report findings per radiology, will maintain on a monitored bed, continue serial cardiac enzymes and EKGs. Magnesium level requested. Continue medical management w/ asa, Brilinta, BB, statin w/ AM FLP. ECHO requested. Cardiology consulted as noted with evaluation in the ED. Will maintain n.p.o. status after midnight with judicious IV fluids as workup is still ongoing. #2. Incidental chest x-ray questionable 1.6 cm masslike density right upper lobe: CTA chest as noted pending given elevated D-dimer, will further decide course of action pending these findings. Patient does have a tobacco use history and certainly given his situation would be at an elevated risk for VTE. #3. Recent history of suspected tendinitis left upper extremity as well as possible bilateral carpal tunnel: As noted patient with recent hand and wrist discomfort but this had been following significant overuse per discussions as well as discomfort in the left distal arm below the elbow with recent PCP officeevaluation and start of steroid taper therapy, certainly could be multifactorialand this could certainly be a component still thus per discussion with cardiology we will continue steroid taper with recommended usage alteration and follow-up with PCP. #4. Leukocytosis, suspected likely related with recent prednisone therapy: CBC with WBC 16.8, no recent infectious presentation per himself and his spouse, recent travel however but they were on their own and in their own car, recent steroid therapy as noted suspected etiology, will continue to trend. #5. Chronic normocytic anemia: Admission hemoglobin 10.7, MCV 93.9, baseline hemoglobin appears more recently 12 however this is since 2021 therefore to be cautious especially given this type of presentation and planned potential anticoagulation will obtain iron panel, ferritin, guaiac, vitamin B12 and folic acid level, repeat CBC in AM. #6. CAD: Status post attempted CABG at [facility] 10/16/2013 supposedly failed, records requested, s/p PCI will continue aspirin, cilostazol will be held for now given transition per cardiology discretion to Brilinta, continue metoprolol, quinapril, statin therapy. #7. Hypertension: Continue home regimen including clonidine, amlodipine, quinapril, metoprolol with adjustments per cardiology discretion, continued on nitroglycerin drip as noted, PRN hydralazine. #8. Hyperlipidemia: Continue home statin regimen. AM FLP. #9. Diabetes mellitus type II with chronic diabetic neuropathy: Hold oral home regimen, hemoglobin A1c requested, nutrition consulted for education and teaching, ADA diet until n.p.o. status pending further workup, accu checks w/ ISS, continue patient home gabapentin regimen. #10. Former tobacco use: Encourage continued tobacco cessation. #11. DVT prophylaxis: Heparin drip. #12. CODE status: Patient [place] is his who is present and living will is currently in place. Discussed CODE status at length including difference betweenFULL code, DNR-CCA and DNR-CC status. Following discussions about the differences in these status, requested Full Code status. Advanced Care Planning Face to Face Time: 16 minutes. Charges/Coding Visit Charges Inpatient E&M: 73435 Init Hosp L3 Procedures Hospitalists Procedures: 89831 Advncd Care Plan 30 Min 01/28/241947 <Electronically signed by Geeta Mendoza MD> Cosigner Signature (if applicable): CC: Dr. Geeta Mendoza MD; Dr. Sher Jules MD~ Signed ADDENDUM by Dr. Geeta Mendoza MD on 01/28/24 at 1952 Addendum D-dimer resulted 1.70, CTPA ordered for ED physician. Additional diagnosis: Acute hyponatremia, hypochloremia, unclear specific etiology, some concern for cardiology for possible overload in this acute setting therefore Lasix IV x 1 per ED and oral initiated but is uncertain and from discussion given recent issues with pain and steroid usage suspect poor oral intake to therefore some concern could be hypovolemic, will continue to trend, defer IVFs given diuresis as noted, await CTPA as will give additional information, will await in the interim FeNa, UOsm. 01/28/241952<Electronically signed by Geeta Mendoza MD> Cosigner Signature (if applicable): cc: Dr. Geeta Mendoza MD; Dr. Sher Jules MD ~* Signed [facility] Work Phone: 1(169) 894-834004-02-2024 Consult note Author Rubio Simeon [facility] January 28, 2024 7:10pm Note Date/Time January 28, 2024 7:09 pm [facility] Medical Records Department [address] [place] [address] Consultation - Cardiology 01/28/24 1858 MR#: [id number] Acct: [id number] Name: MARIE HUTSON Rep #:[id number] : 1950 74 From: Rubio Simeon MD PCP: Dr. Sher Jules MD Status:R EG ER Location: ED Assessment & Plan Assessment/Plan (1) NSTEMI (non-ST elevated myocardial infarction): PLAN: Patient is presently asymptomatic with nitroglycerin and heparin infusion. Continue. Continue aspirin. Already loaded with Brilinta. Continue patient'samlodipine. Start beta-blockers. If patient remains asymptomatic, then we will plan on coronary angiography tomorrow. If however his symptoms recur, then will consider urgent cardiac cath. Discussed with patient and his family. They understand and agree with the plan. (2) CAD (coronary artery disease): PLAN: See #1 above. Continue aspirin. Ticagrelor. (3) History of coronary artery bypass graft x 3: PLAN: Will try to get records from [facility]. (4) Hypertension: PLAN: Nitrates. Start beta-blockers. Continue patient's amlodipine and clonidine. Also on ACEI. (5) Dyslipidemia: PLAN: Continue atorvastatin. HPI Consult Data Date of Consult: 01/28/24 HPI Narrative Reason for Consultation: Left arm pain HPI Narrative: This gentleman has past medical history significant for coronary artery disease with three-vessel CABG in 2012 at the [facility]. According to the patient, for the past few days he has been having some discomfort in his lower arm. However earlier this evening, he developed discomfort in his left upper arm and some burning sensation in his epigastrium and retrosternal region. He therefore presented to the emergency room. In the emergency room, an EKG was done. It showed diffuse ST depressions. The ER physician also informed me thathe became hypoxic and started to wheeze. The patient was started on nitroglycerin infusion and also on a heparin infusion. Presently the patient reports complete resolution of his symptoms. His arm discomfort and burning sensation in his epigastrium and chest have completely resolved. Patient denies any recent history of angina pectoris. He recently had a long road trip, driving from [place] to here over the weekend. According to him, it was a 15-hour drive. [facility] Medical History (Updated 01/28/24 @ 19:[address] Rubio Simeon MD) Branch retinal artery occlusion CAD (coronary artery disease) Diabetes History of atherosclerotic heart disease History of diabetes mellitus History of essential hypertension Hyperlipemia Hypertension Home Medications aspirin 81 mg tablet,delayed release (Adult Low Dose Aspirin) 162 mg PO DAILY heart health 04/18/16 [History Last Taken 04/19/16] metformin 500 mg tablet 500 mg PO DAILY diabetes 04/18/16 [History Last Taken Unknown] multivitamin with folic acid 400 mcg tablet (Thera) 1 tab PO DAILY vitamin 04/18/16 [History Last Taken 04/19/16] cilostazol 100 mg tablet 100 mg PO BID anti platelet 04/25/21 [History Last Taken Unknown] quinapril 40 mg tablet 40 mg PO BID blood pressure 05/29/22 [History Last Taken Unknown] amlodipine 10 mg tablet 10 mg PO DAILY 01/28/24 [History Last Taken Unknown] atorvastatin 40 mg tablet 40 mg PO DAILY 01/28/24 [History Last Taken Unknown] clonidine HCl 0.2 mg tablet 0.2 mg PO BID 01/28/24 [History Last Taken Unknown] gabapentin 300 mg capsule 300 mg PO DAILY 01/28/24 [History Last Taken Unknown] hydralazine 100 mg tablet 50 mg PO TID 01/28/24 [History Last Taken Unknown] Allergy/AdvReac Type Severity Reaction Status Date / Time No Known Allergies Allergy Verified 01/28/24 17:55 Family History (Updated 05/30/22 @ 02:[address] Felicity Lieberman MD) Mother Cancer Father CVA (cerebral vascular accident) Surgical History (Updated 01/28/24 @ 19:[address] Rubio Simeon MD) Failed CABG (coronary artery bypass graft) H/O angioplasty Social History (Updated 05/30/22 @ 02:[address] Felicity Lieberman MD) household members: family Smoking Status: Former smoker alcohol intake: current substance use type: does not use Physical Exam Narrative Comfortable. Lying flat in the bed. No apparent distress. Heart sounds 1 and 2 are normal. 2/6 systolic murmur at base. Chest clear to auscultation bilaterally. Abdomen is soft. Alert oriented x 3. 1+ bilateral ankle edema. No calf swelling or tenderness. Risk Stratification Risk Stratification Applicable: No Objective Data Vital Signs: Vital Signs Temp Pulse Resp BP Pulse Ox O2 Del Method O2 Flow Rate 96.5 F L 86 23 H 151/64 H 93 High Flow 8 01/28/24 17:52 01/28/24 18:43 01/28/24 18:43 01/28/24 18:43 01/28/24 18:43 01/28/24 18:43 01/28/24 18:43 Oxygen Flow Rate (L/min) 8 Oxygen Delivery Method High Flow Weight: 223 lb 15.834 oz Body Mass Index (BMI) 32.1 Intake & Output: Intake and Output for Last 24 Hours 01/26/24 01/27/24 01/28/24 23:59 23:59 23:59 Intake Total 1.5 / 1.5 Balance 1.5 / 1.5 Lab / Micro Data 01/28/24 18:00 01/28/24 18:00 Labs: Laboratory Results - last 24 hr 01/28/24 18:00: WBC 16.8 H, RBC 3.27 L, Hgb 10.7 L, Hct 30.7 L, MCV 93.9, MCH 32.7 H, MCHC 34.9, RDW Std Deviation 39.6, RDW Coeff of Cedric 11.7, Plt Count 339,MPV 9.5, Immature Gran % (Auto) 1.200 H, Neut % (Auto) 91.9 H, Lymph % (Auto) 4.6 L, Sierra % (Auto) 2.2, Eos % (Auto) 0.0, Baso % (Auto) 0.1, Absolute Neuts (auto) 15.4 H, Absolute Lymphs (auto) 0.77 L, Nucleated RBC % 0, PT 13.8, INR 1.1, APTT 43.4 H, Sodium 129 L, Potassium 4.3, Chloride 96 L, Carbon Dioxide 23.0, Anion Gap 10, BUN 22 H, Creatinine 1.11, Estim Creat Clear Calc 71.85, EstGFR (MDRD) Af Amer 84, Est GFR (MDRD) Non-Af 69, BUN/Creatinine Ratio 19.8, Glucose 262 H, Calcium 9.6, Troponin I High Sens 339 H* Cardiology Labs/Tests 01/28/24 18:00: WBC 16.8 H, RBC 3.27 L, Hgb 10.7 L, Hct 30.7 L, MCV 93.9, MCH 32.7 H, MCHC 34.9, Plt Count 339, MPV 9.5, Immature Gran % (Auto) 1.200 H, Neut % (Auto) 91.9 H, Lymph % (Auto) 4.6 L, Sierra % (Auto) 2.2, Eos % (Auto) 0.0, Baso% (Auto) 0.1, Absolute Neuts (auto) 15.4 H, Nucleated RBC % 0, PT 13.8, INR 1.1,APTT 43.4 H, Sodium 129 L, Potassium 4.3, Chloride 96 L, Carbon Dioxide 23.0, Anion Gap 10, BUN 22 H, Creatinine 1.11, Est GFR (MDRD) Af Amer 84, Est GFR (MDRD) Non-Af 69, BUN/Creatinine Ratio 19.8, Glucose 262 H, Calcium 9.6 Rhythm: EKG: ECG on arrival to the emergency room showed normal sinus rhythm with PACs. ST depressions noted in inferior and lateral leads suggestive of ischemia. LastECG shows resolution of ST segments. ECHO: Stress Test: Cardiac Cath: PCI: CT Surgery: Holter monitor: EPS: PPM: CXR: Chest CT Scan: 01/28/24 1910 <Electronically signed by Rubio Simeon MD> Cosigner Signature (if applicable): CC: Dr. Rubio Simeon MD; Dr. Sher Jules MD~ Signed [facility] Work Phone: [phone]) 282-464604-01-2024 History of Present illness Narrative* Caterina Cornell, RT(R) - 2024 3:40 PM EDT Radiology Service Progress Note PATIENT NAME: Marie Hutson DATE OF SERVICE: 2024 TIME: 3:33 PM PATIENT IDENTITY VERIFICATION COMPLETED USING TWO (2) IDENTIFIERS: Name and Date of confirmedby patient verbally. FALL SCREENING: Has the patient had 2 falls in the last year or 1 fall with injury or currently using an Ambulatory Assistive Device (Walker, Cane, Wheelchair, Crutches, etc.)? No PATIENT GENDER DATA: Male PATIENT RELEVANT IMPLANT DATA REVIEWED: Yes PATIENT PRESENTS WITH AN IMPLANTABLE OR ATTACHED CUSHION SPRING ASSEMBLER: No RADIOLOGY DEPARTMENT: General X-ray: Exam(s) Completed: Upper Extremity X- Ray(s): Wrist, bilateral PERIPHERAL IV DATA: Not applicable SIGNED BY: RT Micky(R) 2024 3:33 PM documented in this encounterKing[facility] [place] Instructions* Patient Instructions* Barb Suggs APRN.CNP - 2024 3:26 PM EDT Suspect pain in the wrists is due to osteoarthritis or a tendonitis called de Quervain's tenosynovitis. These are both treated with rest, ice, heat and medications for inflammation. Start Voltaren gel, use four times a day following directions on package. You will also be given a steroid called prednisone, follow prescription instructions. You may notice a temporary rise on your blood sugars frombaseline. Wearing a wrist brace may also help with the pain. documented in this encounterKing'S [facility] [place] History of Present illness Narrative* Barb Suggs APRN.CNP - 2024 3:05 PM EDT CC: Patient presents with: Arm Pain: X 6 weeks HPI Marie Hutson is a 74 year old male who presents today for above. He developed bilateral hand painthat started about 6 weeks ago when he was on vacation in [place]. Had been riding his motorcycle frequently while there. Pain eventually spread to both wrists, occasionally radiates up to the elbow but never past. Described as: intermittent aching Pain is aggravated by: nothing he can think of. Seems to be worse in the evenings and better in themorning Pain is alleviated by resting in the recliner with his arms down Denies redness, swelling, loss of ROM, numbness/tingling or weakness Treatments tried: Tylenol without any relief He has never had wrist pain before. Review of Systems Constitutional: Negative for chills, fatigue and fever. Cardiovascular: Negative for chest pain. Musculoskeletal: Negative for neck pain. PAST MEDICAL HISTORY Diagnosis Date Atherosclerosis of hoh arteries of the extremities with intermittent claudication 09/07/2010 BENIGN NEOPLASM LG BOWEL 07/29/2008 Tubular adenoma. BPH without obstruction/lower urinary tract symptoms 12/29/2007 Coronary artery disease Dermatophytosis of nail 12/29/2007 Diabetic peripheral neuropathy (HCC) 05/17/2014 DVT of leg (deep venous thrombosis) ([facility]) 11/16/2013 post-op CABG, rx with Xarelto Hypertrophy of prostate without urinary obstruction and other lower urinary tract symptoms (LUTS) 12/29/2007 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/29/2007 Non-ST elevation myocardial infarction (NSTEMI) 10/17/2013 Nonspecific abnormal results of liver function study 04/29/2008 Obesity, unspecified 12/29/2007 Other and unspecified hyperlipidemia PAD (peripheral artery disease) ([facility]) 08/05/2009 Personal history of other malignant neoplasm of skin 11/05/2010 skin cancer Postoperative anemia 10/25/2013 Transfused on 10/25 1 U PRBC. H&H 9.2/26.3. DC on diuretic taper for dilutional component and MVI with iron and repeat as outpt Primary osteoarthritis of left knee 02/21/2018 [facility]. Type II or unspecified type diabetes mellitus without mention of complication, not stated as uncontrolled 12/29/2007 Unspecified essential hypertension PAST SURGICAL HISTORY Procedure Laterality Date ANGIOPLASTY FEMORAL/POP right BALLN ANGIOPLASTY PERC,FEM-POP 11-17-09 APLL WITH SILVERHAWK AND ANGIOPLASTY COLONOSCOPY FLX DX W/COLLJ SPEC WHEN PFRMD 2007 Colonoscopy COLONOSCOPY FLX DX W/COLLJ SPEC WHEN PFRMD 09/14/13 Colonoscopy COLONOSCOPY FLX DX W/COLLJ SPEC WHEN PFRMD 12/02/2018 Colonoscopy CORONARY ARTERY BYP W/VEIN & ARTERY GRAFT 3 VEIN 10/20/2013 CABG, three grafts F ENDARTERECTOMY FEMORAL PROFUNDA Bilateral 05/24/2016 fem. endarterectomy, profundaplasty LEFT HEART CATH,PERCUTANEOUS 10/19/2013 Cardiac cath, L heart PRIM PRQ TRLUML MCHNL THRMBC N-COR N-ICRA 1ST 12-05-2009 left REVSC OPN/PRQ ILIAC ART W/STNT PLMT & ANGIOPLSTY Left 04/19/16 with 9x29mm satish stenting SLCTV CATHJ EA 2ND+ ORD ABDL PEL/LXTR ART BRNC 11-17-09 LLE UNSPECIFIED ORAL SURGERY PROCEDURE, BY REPORT wisdom teeth removed ALLERGIES Patient has no known allergies. MEDICATIONS lisinopril (ZESTRIL) 40 mg tablet Take 1 tablet by mouth two times a day. amLODIPine (NORVASC) 10 mg tablet Take 1 tablet by mouth once daily. hydrALAZINE (APRESOLINE) 100 mg tablet Take 1 tablet by mouth three times a day for 15 days. metFORMIN (GLUCOPHAGE) 500 mg tablet Take 2 tablets by mouth two times a day with meals. hydrALAZINE (APRESOLINE) 100 mg tablet Take 1 tablet by mouth three times a day for 15 days. atorvastatin (LIPITOR) 40 mg tablet Take 1 tablet by mouth once daily. For cholesterol gabapentin (NEURONTIN) 300 mg capsule Take 1 capsule by mouth daily at bedtime for 180 days. cilostazol (PLETAL) 50 mg tablet take 1 tablet twice a day hydrALAZINE (APRESOLINE) 100 mg tablet Take 1 tablet by mouth three times daily. cloNIDine HCl (CATAPRES) 0.2 mg tablet Take 1 tablet by mouth twice daily. carvedilol (COREG) 12.5 mg tablet Take 1 tablet by mouth twice daily. metFORMIN (GLUCOPHAGE) 500 mg tablet Take 2 tablets by mouth twice daily with meals. Miscellaneous Medical Supply (COMPRESSION STOCKINGS) [facility] [place]ION STOCKINGS KNEE HI 20-30 WT M79.89 aspirin 81 mg chewable tablet Take 2 tablets by mouth once daily. therapeutic multivitamin tablet Take 1 tablet by mouth daily with breakfast. blood sugar diagnostic (ONE TOUCH ULTRA TEST) test strip Use as instructed blood sugar diagnostic (ONE TOUCH ULTRA TEST) test strip TEST BLOOD SUGARS ONCE DAILY lancets(ONE TOUCH ULTRASOFT LANCETS) Test blood sugar once daily. FAMILY HISTORY Problem Relation Age of Onset Cancer Mother lymphoma, passed Heart Father 46 Stroke Father passed from this Cancer Maternal Grandfather unsure of the type Heart Paternal Grandfather GI Brother inflammatory bowel disease, crohn's Social History Tobacco Use Smoking status: Former Packs/day: 1.00 Years: 34.00 Additional pack years: 0.00 Total pack years: 34.00 Types: Cigarettes Quit date: 10/28/2002 Years since quittin.2 Smokeless tobacco: Never Vaping Use Vaping Use: Never used Substance Use Topics Alcohol use: Yes Alcohol/week: 42.0 standard drinks of alcohol Types: 42 Cans of Beer (12oz) per week Comment: 6 beers per day, sometimes less Drug use: Yes Frequency: 2.0 times per week Comment: marijuana BP 136/68 Pulse 70 Resp 14 Wt 99.3 kg (219 lb) BMI 34.30 kg/m Physical Exam Vitals reviewed. Constitutional: Appearance: Normal appearance. Musculoskeletal: Right elbow: No swelling or deformity. Normal range of motion. No tenderness. Left elbow: No swelling or deformity. Normal range of motion. No tenderness. Right forearm: No swelling, deformity or tenderness. Left forearm: No swelling, deformity or tenderness. Right wrist: Tenderness (mild tenderness radial side of wrist) present. No swelling, deformity or crepitus. Normal range of motion (painless). Left wrist: Tenderness (moderate tenderness over radial side of wrist) present. No swelling, deformity or crepitus. Normal range of motion (painless). Right hand: No swelling or deformity. Normal range of motion. Normal strength. Left hand: No swelling or deformity. Normal range of motion. Normal strength. Comments: BUE- strength 5/5 bilaterally. Reflexes symmetrical. Cap refill < 2 seconds. Radial and ulnar pulses 2+ Neurological: Mental Status: He is alert. ASSESSMENT/PLAN: 1. Pain in both wrists - ICD9: 719.43, ICD10: M25.531, M25.532 Suspect osteoarthritis vs de Quervain's tenosynovitis. Other differentials include carpal tunnel syndrome and peripheral neuropathy - XR WRIST GENERAL 3V PA/LAT/OBL BILATERAL - start prednisone burst with taper. Patient is well controlled diabetic however cautioned this canraise blood sugars above baseline - start Voltaren gel, follow directions on package - also recommend wrist brace - follow-up pending results of x-ray Prescription instructions reviewed with patient as applicable. Potential red flag symptoms discussed with the patient. Reviewed appropriate action plan to take if red flag symptoms occur. Patient agreeable to treatment plan. Barb Suggs APRN.SLOT SUPERVISOR documented in this encounterKing[facility] [place]04-01-2024 Miscellaneous Notes* Telephone Encounter - Jayson Lovell MA - 2024 1:14 PM EDT Requested Prescriptions Pending Prescriptions Disp Refills amLODIPine (NORVASC) 10 mg tablet 90 tablet 3 Sig: Take 1 tablet by mouth once daily. Date of last office visit in primary care: 08/09/2023 Date of next office visit in primary care: 03/09/2024 Please advise. Thank you. Jayson Lovell MA. documented in this encounterKing[facility] [place] Miscellaneous Notes* Telephone Encounter - Jayson Lovell MA - 2024 1:07 PM EDT Requested Prescriptions Pending Prescriptions Disp Refills lisinopril (ZESTRIL) 40 mg tablet 180 tablet 3 Sig: Take 1 tablet by mouth two times a day. Date of last office visit in primary care: 08/09/2023 Date of next office visit in primary care: 2024 Please advise. Thank you. Jayson Lovell MA. documented in this encounterKing'S [facility] [place]04-01-2024 Miscellaneous Notes* Telephone Encounter - Colleen Rojo RN - 2024 11:28 AM EDT Patient calls for bilateral arm pain from elbows to hands. Nurse triage completed. Protocol recommends see provider within 3 days. Appointment scheduled. Care advice reviewed. Reason for Disposition [1] MODERATE pain (e.g., interferes with normal activities) AND [2] present > 3 days Answer Assessment - Initial Assessment Questions 1. ONSET: Patient reports that over the past four weeks he has noticed pain to bilateral lower armsthat gets worse as the day goes on. Patient reports that he wakes up with no pain. He reports the lower arm from elbow to hands and reports it as a dull ache. 2. LOCATION: lower arm from elbow to hands 3. PAIN:None in the morning and progresses throughout the day. Reports at night time it can be an 8or a 90 at times . 4. WORK OR EXERCISE: No recent work or exercise that involved this part of the body. 5. CAUSE:Patient is not certain. 6. OTHER SYMPTOMS:Denies rash, fever, numbness, weakness. Occasional neck pain but doesn't feel it is at the same time as the arm pain. Reports some swelling to bilateral arms that is usually presentat the same time as the pain. Protocols used: Arm [id number] documented in this encounterKing'S [facility] [place]03-11-2024 Miscellaneous Notes* Telephone Encounter - Madeleine Cisneros - 01/06/2024 9:40 AM EDT Patient said [place] of [place] and wants to know if short term refills can be sent to [place], [place]. Needs 20 day supply of hydralazine and 10 day supply of metformin. * Telephone Encounter - Madeleine Cisneros - 01/06/2024 9:38 AM EDT Patient has been identified by name and date of : Yes, Provider Jorge A Patient phones for refill(s): Requested Prescriptions Pending Prescriptions Disp Refills hydrALAZINE (APRESOLINE) 100 mg tablet Sig: Take 1 tablet by mouth three times a day for 15 days. metFORMIN (GLUCOPHAGE) 500 mg tablet Sig: Take 2 tablets by mouth two times a day with meals. Date of last office visit in primary care: 08/09/2023 Date of next office visit in primary care: 03/11/2024 Please advise. Thank you. Madeleine Ribera. documented in this encounterKing'S [facility] [place]02-23-2024 Miscellaneous Notes* Telephone Encounter - Marta Bradley LPN - 12/20/2023 4:46 PM EST Phoned patient and aware PCP sent rx to pharmacy. * Telephone Encounter - Sher Jules MD - 12/20/2023 3:51 PM EST Patient's request for medication is as follows Requested Prescriptions Signed Prescriptions Disp Refills hydrALAZINE (APRESOLINE) 100 mg tablet 45 tablet 0 Sig: Take 1 tablet by mouth three times a day for 15 days. Authorizing Provider: SHER JULES Order entered - please phone pharmacy and notify patient. Sher Jules MD * Telephone Encounter - Suellen Donovan RN - 12/20/2023 8:30 AM EST Patient calls and states that he is currently out of state and is out of medication. Patient askingif provider can send in a refill for prescription. Patient has been identified by name and date of : Patient phones for refill(s): Requested Prescriptions Pending Prescriptions Disp Refills hydrALAZINE (APRESOLINE) 100 mg tablet 270 tablet 1 Sig: Take 1 tablet by mouth three times a day. Date of last office visit in primary care: 08/09/2023 Date of next office visit in primary care: 03/11/2024 Please advise. Thank you. Suellen Donovan RN. documented in this encounterKing'S [facility] [place]01-04-2024 History of Present illness Narrative* Kathy Schwabew - 10/31/2023 11:26 AM EST Last time saw pcp: 08/09/23 Subjective: Patient presents to clinic c/o painful toenails. They state that the nails are especially painful with shoe gear and pressure. Patient states that nails 1-5 b/l are painful. Patient admits to being diabetic. No other pedal complaints at this time. Patient states no change in medications or medical history since last visit. Objective: Patient presents to clinic ambulating in [facility] Vasc: DP and PT pulses are nonpalpable bilateral. CFT is less than 5 seconds bilateral. Skin temperature is warm to cool proximal to distal bilateral. There is moderate edema or varicosities noted. Neuro: Protective sensation is absent to the foot and toes when tested with the 5.07 SWM bilateral.Vibratory sensation is absent at the hallux IPJ bilateral. The hallux is downgoing bilateral. Derm: Nails 1-5 b/l are painful, discolored-yellow, thick, crumbly, dystrophic and with subungal debris. There is ingrowing toenail of left hallux medial nail border with slight blistering and drainage present. Skin is of normal turgor, texture and hair growth is present bilateral. There are callusto heels. No ulcerations, scars, verruca or other lesions noted. Ortho: Muscle strength is 5/5 for all pedal groups tested. Ankle joint DF is decreased with the knee extended with no pain or crepitus noted. 1st MPJ ROM is decreased bilateral. Assessment: (B35.1) Onychomycosis (primary encounter diagnosis) (M79.675) Pain in toe of left foot (M79.674) Pain in toe of right foot (E11.49) Well controlled type 2 diabetes mellitus with neurological manifestations ([facility]) (I73.9) PAD (peripheral artery disease) ([facility]) (L85.9) Hyperkeratosis (L60.0) Ingrowing toenail with infection Plan: Patient was seen and evaluated. Nails 1-5 bilateral were debrided in length and thickness. Ingrowing toenail of left hallux medial nail border treated with slant back. Wound culture performed. Will place patient on antibiotic. Callus reduced with dremmel to b/l heel. Patient was instructed on the continued importance of diabetic foot care along with proper diet andkeeping their blood sugar under control to prevent complications. Patient is to RTC in 3-4 months. Gomez Schwab DPM documented in this encounterKing'S [facility] [place]01-04-2024 Instructions* Patient Instructions* Gomez Schwab - 10/31/2023 11:26 AM EST Diabetes Foot Care Instructions When you have diabetes, proper foot care is very important. Poor foot care may lead to amputation of a foot or leg. As a person with diabetes, you are more vulnerable to foot problems, because diabetes can damage your nerves and reduce blood flow to your feet. Here are some diabetes foot care tips to follow: Wash and Dry Your Feet Daily Use mild soaps Use warm water Pat your skin dry; do not rub. Thoroughly dry your feet. After washing, use lotion on your feet to prevent cracking. Do not put lotion between your toes. Examine Your Feet Each Day Check the tops and bottoms of your feet. Have someone else look at your feet if you cannot see them. Check for dry, cracked skin. Look for blisters, cuts, scratches, or other sores. Check for redness, increased warmth, or tenderness when touching any area of your feet. Check for ingrown toenails, corns, and calluses. If you get a blister or sore from your shoes, do not pop it. Apply a bandage and wear a differentpair of shoes. Take Care of Your Toenails Cut toenails after bathing, when they are soft. Cut toenails straight across and smooth with a nail file. Avoid cutting into the corners of toes. Do not cut cuticles. If you have neuropathy (or decreased sensation in your feet) a briar cutter should always cut your toenails. Be Careful When Exercising Walk and exercise in comfortable shoes. Do not exercise when you have open sores on your feet. Protect Your Feet With Shoes and Socks Never go barefoot. Always protect your feet by wearing shoes or hard-soled slippers or footwear. Avoid shoes with high heels and pointed toes. Avoid shoes that expose your toes or heels (such as open-toed shoes or sandals). These types of shoes increase your risk for injury and potential infections. Try on new footwear with the type of socks you usually wear. Do not wear new shoes for more than an hour at a time. Change your socks daily. Look and feel inside your shoes before putting them on to make sure there are no foreign objects orrough areas. Avoid tight socks. Wear natural-fiber socks (cotton, wool, or a cotton-wool blend). Wear special shoes if your health care provider recommends them. Wear shoes/boots that will protect your feet from various weather conditions (cold, moisture, etc.). Make sure your shoes fit properly. If you have neuropathy (nerve damage), you may not notice that your shoes are too tight. Perform the footwear test described below. Footwear Test Use this simple test to see if your shoes fit correctly: Stand on a piece of paper. (Make sure you are standing and not sitting, because your foot changes shape when you stand.) Trace the outline of your foot. Trace the outline of your shoe. Compare the tracings: Is the shoe too narrow? Is your foot crammed into the shoe? The shoe should be at least 1/2 inch longer than your longest toe and as wide as your foot. Proper Shoe Choices The following types of shoes are best for people with diabetes Closed toes and heels Leather uppers without a seam inside At least 1/2 inch extra space at the end of your longest toe Inside of shoe should be soft with no rough areas Outer sole should be made of stiff material Shoes should be at least as wide as your feet Tips for Foot Care in Diabetes Don't wait to treat a minor foot problem if you have diabetes. Follow your health care provider's guidelines and first aid guidelines. Report foot injuries and infections to your health care provider immediately. Check water temperature with your elbow, not your foot. Do not use a heating pad on your feet. Do not cross your legs. Do not self-treat your corns, calluses, or other foot problems. Go to your health care provider or briar cutter to treat these conditions. Cleanse left great toe with saline daily. Apply topical antibiotic Can f/u in 1 week for evaluation of wound or in 3 months documented in this encounterKing'S [facility] [place]11-14-2023 History of Present illness Narrative* Veronica Sierra MA - 09/10/2023 8:25 AM EST POPULATION HEALTH NAVIGATION OUTREACH Action/FYI Spoke with Marie. He will call to schedule in the spring Colorectal Cancer Screening due on 12/02/2023 Patient Identified by Name and : YES, via phone Outreach Outcome/Action Spoke to patient / parent / legal guardian: Patient will return the call or ask for return call Did you use a PCP flex slot to schedule this appointment? N/A Reason for Outreach Care Gap or Scheduling/Wellness visits Payer: Payor: MEDICARE / Plan: MEDICARE A AND B / Product Type: Medicare / Care Gap Reviewed:: Colorectal Cancer Screening Reminder: Reminder note to check Health Maintenance for items below Health Maintenance items due: Hepatitis B Vaccine(1 of 3 - Risk 3-dose series) Never done RSV Vaccine(1 - 1-dose 60+ series) Never done Shingrix Vaccine(3 of 3) due on 05/10/2018 BP Controlled (<130/80) due on 02/20/2023 Colorectal Cancer Screening due on 12/02/2023 Navigation Signature: Veronica Sierra MA September 10, 2023 8:25 AM documented in this encounterKing'S [facility] [place]10-13-2023 History of Past illness Narrative* Problem Noted Date Diagnosed Date Resolved Date Obesity, Class II, BMI 35-39.9 08/09/2023 02/07/2024 Branch retinal artery occlusion, left 06/11/2022 02/07/2024 Sleep apnea 09/15/2021 02/07/2024 Obesity, Class I, BMI 30-34.9 08/06/2019 02/07/2024 Obesity, Class II, BMI 35-39.9 08/22/2018 08/06/2019 Solar Lentigines 12/18/2013 02/15/2016 Other seborrheic keratosis 12/18/2013 0 01/21/2015 Pollack angioma 12/18/2013 02/15/2016 DVT of leg (deep venous thrombosis) 11/16/2013 07/23/2014 Post-operative state 11/16/2013 014 Postoperative anemia 10/25/2013 014 Overview: Transfused on 10/25 1 U PRBC. H&H 9.2/26.3. DC on diuretic taper for dilutional component and MVI with iron and repeat as outpt Elevated LFTs 10/23/2013 01/01/2014 Overview: ALT/AST trending down 124/214. TB rising 1.8. DC on no APAP and add Lipitor 80 for post NSTEMI when LFTs normalize DISPOSITION AND FOLLOW-UP 10/23/2013 Overview: 63 y/o M, lives in [place], [place]. No skilled needs. 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 Phi Heredia for new cards and Preventive cards and Preventive Nutrition. Primary Care: Sher Jules MD [address] [facility] [address] Food Quality Technician: Phi Leo M.D. [facility] Acute pain 10/22/2013 01/01/2014 Overview: DC on prn Percolone and wean Nodule of right lung 10/22/2013 014 Fluid overload 10/21/2013 10/23/2013 Overview: 10/22/2013 fluid overload from surgery - generalized edema and pulm congestion plan - continue gentle diuresis - closely monitor fluid and electrolytes Atelectasis/pleural effusion/volume overload 3 07/23/2014 Overview: O2 sat 98% on RA. C, DB, PEP and con't to increase activity. Repeat CXR at f/u appt Hypotension 10/20/2013 10/23/2013 Overview: Post op vasoplegia, requiring epi/vaso/levo. off vaso gtt. 10/22/2013 Pressors weaned off overnight. plan - will start low dose BB - continue gentle diuretic Mechanically assisted ventilation 10/20/2013 10/22/2013 Overview: WTE Screening for ischemic heart disease 10/19/2013 02/07/2024 Overview: CTS: CABG Surgeon: Ruddy Mccartney M.D. Informed Consent Completed: No STS Score: 0.8% Isolated CABG CAD: Yes - CAD on Problem List: Yes Is intended procedure a CABG: Yes - is a beta luis alberto ordered? Yes H & P completed: Yes PA/LAT: Completed CT: N/A MRI: N/A LE US: N/A Cath: Yes - reviewed: Yes Echo:Pending EKG: Pending EF %: P PI's: Pending Carotid: Completed 40-59% bilat Mapping: N/A Dental: N/A PFT's: Pending Basename 10/19/13 0258 WBC 6.47 HB 12.3* HCT 36.7* PLT 217 INR 1.0 CREAT 0.86 UA: PENDING HCG:N/A ABO/ABO Confirmed: PENDING Blood ordered: No SA Swab: Yes - results: Pending Last Dose of Anticoagulation: LD PLAVIX per Epic notes 10/16/13 Op Note: N/A Pacemaker Check: N/A Consults: Interventional Cardiology([facility]) DM: Yes, HgbA1c:6.5 on 10/18/13 Cardiac Surgical prep: PENDING SIGNATURE: Elida Campuzano CNP CHECKED BY: RANDI DATE of SERVICE: 10/19/2013 TIME of SERVICE: 9:44 AM SUMMARY 10/17/2013 07/23/2014 Overview: Admission: NSTEMI Echo: 56%, Stage 1 DD, RV nl ECG: SB at 56 Cards: [facility] Cath: LM 80%, LAD 30% prox, RCA 75% distal, RI 50% prox, 40% mid PMH/PSH: CAD, HTN, DM-2 5-6 yrs, HPL, ETOH (6 drinks/day) PAD s/p L superficial femoral/popliteal/posterior tibial artery artherectomy and angioplasty 07/2010 and right femoral artery arterectomy and angioplasty, right popliteal angioplasty 08/2010 on ASA and Plavix (last dose 10/18). Smoker, quit 11/09. Obesity (BMI >34), ? ERASMO? Events: PRBC Surgery 10/20/13: CABG x 3: WRIGHT>LAD, SVG>PDA, SVG>OM1 Echo: 65%, Stage 1 DD, RV normal. Small pericardial effusion w/o signs of tamponade 10/26/13: -SR. Post NSTEMI, Peak TpnT 0.216 -O2 sat 98% on RA -Elevated LFT's trending down, DC on no APAP -Ambulating without difficulty -HTN: DC on BB, Lasix, HEENA-I -Dulcolax prior to DC for BM -HPL: DC on no statin in light of LFT elevation: recommend add when normalize -DC: , from [place], [place], no skilled needs. Request f/u Dr. 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 Hold statin d/t elevated LFT's, resume once normalize Irritated//Inflamed Seborrheic Keratosis 11/05/2010 12/15/2012 Actinic Keratoses (Premalignant AK's) 11/05/2010 01/01/2014 Actinic Damage///Sun-damaged skin 11/05/2010 12/15/2012 Personal history of other ma lignant neoplasm of skin 11/05/2010 12/15/2012 Melanocytic nevus of trunk 11/05/2010 0 02/15/2016 Solar Lentigines 11/05/2010 12/15/2012 Seborrheic Keratoses 11/05/2010 013 Skin tag 11/05/2010 12/15/2012 Pollack angioma 11/05/2010 12/15/2012 Surgical Scars 11/05/2010 12/15/2012 Nonspecific abnormal results of liver function study 04/29/2008 12/13/2011 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/29/2007 02/15/2016 BPH without obstruction/lowe r urinary tract symptoms 12/29/2007 02/21/2018 Obesity, unspecified 12/29/2007 04/20/2 016 Dermatophytosis of nail 12/29/200706/29 documented as of this encounter (statuses as of 02/07/2024) [facility] [place] History of Past illness Narrative* Problem Noted Date Diagnosed Date Resolved Date Obesity, Class II, BMI 35-39.9 08/09/2023 02/07/2024 Branch retinal artery occlusion, left 06/11/2022 02/07/2024 Sleep apnea 09/15/2021 02/07/2024 Obesity, Class I, BMI 30-34.9 08/06/2019 02/07/2024 Obesity, Class II, BMI 35-39.9 08/22/2018 08/06/2019 Solar Lentigines 12/18/2013 02/15/2016 Other seborrheic keratosis 12/18/2013 0 01/21/2015 Pollack angioma 12/18/2013 02/15/2016 DVT of leg (deep venous thrombosis) 11/16/2013 07/23/2014 Post-operative state 11/16/2013 014 Postoperative anemia 10/25/2013 014 Overview: Transfused on 10/25 1 U PRBC. H&H 9.2/.3. DC on diuretic taper for dilutional component and MVI with iron and repeat as outpt Elevated LFTs 10/23/2013 01/01/2014 Overview: ALT/AST trending down 124/214. TB rising 1.8. DC on no APAP and add Lipitor 80 for post NSTEMI when LFTs normalize DISPOSITION AND FOLLOW-UP 10/23/2013 Overview: 63 y/o M, lives in [place], [place]. No skilled needs. 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 Phi Heredia for new cards and Preventive cards and Preventive Nutrition. Primary Care: Sher Jules MD [address] [facility] [address] Food Quality Technician: Phi Leo M.D. [facility] Acute pain 10/22/2013 01/01/2014 Overview: DC on prn Percolone and wean Nodule of right lung 10/22/2013 014 Fluid overload 10/21/2013 10/23/2013 Overview: 10/22/2013 fluid overload from surgery - generalized edema and pulm congestion plan - continue gentle diuresis - closely monitor fluid and electrolytes Atelectasis/pleural effusion/volume overload 3 07/23/2014 Overview: O2 sat 98% on RA. C, DB, PEP and con't to increase activity. Repeat CXR at f/u appt Hypotension 10/20/2013 10/23/2013 Overview: Post op vasoplegia, requiring epi/vaso/levo. off vaso gtt. 10/22/2013 Pressors weaned off overnight. plan - will start low dose BB - continue gentle diuretic Mechanically assisted ventilation 10/20/2013 10/22/2013 Overview: WTE Screening for ischemic heart disease 10/19/2013 02/07/2024 Overview: CTS: CABG Surgeon: Ruddy Mccartney M.D. Informed Consent Completed: No STS Score: 0.8% Isolated CABG CAD: Yes - CAD on Problem List: Yes Is intended procedure a CABG: Yes - is a beta luis alberto ordered? Yes H & P completed: Yes PA/LAT: Completed CT: N/A MRI: N/A LE US: N/A Cath: Yes - reviewed: Yes Echo:Pending EKG: Pending EF %: P PI's: Pending Carotid: Completed 40-59% bilat Mapping: N/A Dental: N/A PFT's: Pending Basename 10/19/13 0258 WBC 6.47 HB 12.3* HCT 36.7* PLT 217 INR 1.0 CREAT 0.86 UA: PENDING HCG:N/A ABO/ABO Confirmed: PENDING Blood ordered: No SA Swab: Yes - results: Pending Last Dose of Anticoagulation: LD PLAVIX per Epic notes 10/16/13 Op Note: N/A Pacemaker Check: N/A Consults: Interventional Cardiology([facility]) DM: Yes, HgbA1c:6.5 on 10/18/13 Cardiac Surgical prep: PENDING SIGNATURE: Elida Campuzano CNP CHECKED BY: RANDI DATE of SERVICE: 10/19/2013 TIME of SERVICE: 9:44 AM SUMMARY 10/17/2013 07/23/2014 Overview: Admission: NSTEMI Echo: 56%, Stage 1 DD, RV nl ECG: SB at 56 Cards: [facility] Cath: LM 80%, LAD 30% prox, RCA 75% distal, RI 50% prox, 40% mid PMH/PSH: CAD, HTN, DM-2 5-6 yrs, HPL, ETOH (6 drinks/day) PAD s/p L superficial femoral/popliteal/posterior tibial artery artherectomy and angioplasty 07/2010 and right femoral artery arterectomy and angioplasty, right popliteal angioplasty 08/2010 on ASA and Plavix (last dose 10/18). Smoker, quit 11/09. Obesity (BMI >34), ? ERASMO? Events: PRBC Surgery 10/20/13: CABG x 3: WRIGHT>LAD, SVG>PDA, SVG>OM1 Echo: 65%, Stage 1 DD, RV normal. Small pericardial effusion w/o signs of tamponade 10/26/13: -SR. Post NSTEMI, Peak TpnT 0.216 -O2 sat 98% on RA -Elevated LFT's trending down, DC on no APAP -Ambulating without difficulty -HTN: DC on BB, Lasix, HEENA-I -Dulcolax prior to DC for BM -HPL: DC on no statin in light of LFT elevation: recommend add when normalize -DC: , from [place], [place], no skilled needs. Request f/u Dr. 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 Hold statin d/t elevated LFT's, resume once normalize Irritated//Inflamed Seborrheic Keratosis 11/05/2010 12/15/2012 Actinic Keratoses (Premalignant AK's) 11/05/2010 01/01/2014 Actinic Damage///Sun-damaged skin 11/05/2010 12/15/2012 Personal history of other ma lignant neoplasm of skin 11/05/2010 12/15/2012 Melanocytic nevus of trunk 11/05/2010 0 02/15/2016 Solar Lentigines 11/05/2010 12/15/2012 Seborrheic Keratoses 11/05/2010 013 Skin tag 11/05/2010 12/15/2012 Pollack angioma 11/05/2010 12/15/2012 Surgical Scars 11/05/2010 12/15/2012 Nonspecific abnormal results of liver function study 04/29/2008 12/13/2011 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/29/2007 02/15/2016 BPH without obstruction/lowe r urinary tract symptoms 12/29/2007 02/21/2018 Obesity, unspecified 12/29/2007 016 Dermatophytosis of nail 12/29/200706/29 documented as of this encounter (statuses as of 02/11/2024) [facility] History of Present illness Narrative* Sher Jules MD - 08/09/2023 11:45 AM EDT This note was created using [employer]andy[employer]. Subjective Marie Hutson is a 73 year old male. His hypertension was lower at home and below 130 when he checked. Diabetes and lipids were controlled. PAD was stable with claudication. He requested handicap parking to be used for parking at long distances since he had difficulty accompanying family at an amusement park. Review of Systems Constitutional: Negative for fatigue and unexpected weight change. Respiratory: Negative for chest tightness and shortness of breath. Cardiovascular: Negative for chest pain, palpitations and leg swelling. See HPI. Gastrointestinal: Negative. Genitourinary: Negative for difficulty urinating. Neurological: Negative for dizziness and headaches. 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) ([facility]) Screening for Ischemic Heart Disease Actinic Skin Damage Hx of Cabg Diabetic Peripheral Neuropathy ([facility]) Pvd (Peripheral Vascular Disease) ([facility]) Primary Osteoarthritis of Left Knee Obesity, Class I, Bmi 30-34.9 Sleep Apnea Mixed Sleep Apnea Branch Retinal Artery Occlusion, Left Coronary Artery Disease 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 aspirin 81 mg chewable tablet Take 2 tablets by mouth once daily. atorvastatin (LIPITOR) 40 mg tablet Take 1 tablet by mouth once daily. For cholesterol blood sugar diagnostic (ONE TOUCH ULTRA TEST) test strip TEST BLOOD SUGARS ONCE DAILY blood sugar diagnostic (ONE TOUCH ULTRA TEST) test strip Use as instructed carvedilol (COREG) 12.5 mg tablet Take 1 tablet by mouth twice daily. cilostazol (PLETAL) 50 mg tablet Take 1 tablet by mouth twice daily. cloNIDine HCl (CATAPRES) 0.2 mg tablet Take 1 tablet by mouth twice daily. gabapentin (NEURONTIN) 300 mg capsule Take 1 capsule by mouth daily at bedtime for 180 days. hydrALAZINE (APRESOLINE) 100 mg tablet Take 1 tablet by mouth three times daily. lancets(ONE TOUCH ULTRASOFT LANCETS) Test blood sugar once daily. lisinopril (ZESTRIL) 40 mg tablet Take 1 tablet by mouth twice daily. metFORMIN (GLUCOPHAGE) 500 mg tablet Take 2 tablets by mouth twice daily with meals. Miscellaneous Medical Supply (COMPRESSION STOCKINGS[place] [facility] [place] KNEE HI 20-30 WT M79.89 therapeutic multivitamin tablet Take 1 tablet by mouth daily with breakfast. No current facility-administered medications for this visit. Objective BP (P) 132/58 (BP Site: Left Arm, BP Position: Sitting, BP Cuff Size: Large Adult) Pulse (P) 72 Wt (P) 102.1 kg (225 lb) BMI (P) 35.24 kg/m Physical Exam Constitutional: General: He is not in acute distress. Appearance: He is not ill-appearing. Cardiovascular: Rate and Rhythm: Rhythm irregular. Extrasystoles are present. Heart sounds: S1 normal and S2 normal. No murmur heard. No gallop. Pulmonary: Effort: No respiratory distress. Breath sounds: No wheezing or rales. Abdominal: General: There is no distension. Tenderness: There is no abdominal tenderness. Musculoskeletal: Right lower leg: No edema. Left lower leg: No edema. Neurological: Mental Status: He is alert. Component Latest Ref Rng & Units 08/06/2023 Glucose 74 - 99 mg/dL 130 (H) BUN 9 - 24 mg/dL 11 Creatinine 0.73 - 1.22 mg/dL 0.67 (L) Sodium 136 - 144 mmol/L 130 (L) Potassium 3.7 - 5.1 mmol/L 4.8 Chloride 97 - 105 mmol/L 97 CO2 22 - 30 mmol/L 19 (L) Anion Gap 9 - 18 mmol/L 14 Calcium 8.5 - 10.2 mg/dL 9.4 eGFR >=60 mL/min/1.73m 100 Hemoglobin A1C 4.3 - 5.6 % 5.9 (H) Estimated Average Glucose mg/dL 123 EKG RESULTS: sinus bradycardia and PACs noted Assessment and Plan 1. Obesity, Class II, BMI 35-39.9 - ICD9: 278.00, ICD10: E66.9 (primary diagnosis) Weight increasing. Diet and exercise reviewed. 2. Coronary artery disease involving hoh coronary artery of hoh heart without angina pectoris- ICD9: 414.01, ICD10: I25.10 PACs. Patient reassured. - ECG COMPLETE 3. PAD (peripheral artery disease) (HCC) - ICD9: 443.9, ICD10: I73.9 Handicap parking. 4. Essential hypertension - ICD9: 401.9, ICD10: I10 Resistant hypertension with fair control. - Continue current medications - CBC 5. Hyperlipidemia with target LDL less than 70 - ICD9: 272.4, ICD10: E78.5 - Controlled - Continue current medications - Counseled on healthy diet and regular exercise - COMP METABOLIC PANEL - LIPID PANEL BASIC 6. Well controlled type 2 diabetes mellitus with neurological manifestations (HCC) - ICD9: 250.60, ICD10: E11.49 - Controlled - Continue current medications - HGB A1C - ALBUMIN/CREAT RATIO RND UR Sher Jules MD documented in this encounterKing[facility] [place] History of Present illness Narrative* Gomez Schwab - 07/26/2023 1:32 PM EDT Last saw pcp: 03/22/23 Subjective: Patient presents to clinic c/o painful toenails. They state that the nails are especially painful with shoe gear and pressure. Patient states that nails 1-5 b/l are painful. Patient admits to being diabetic. No other pedal complaints at this time. Patient states no change in medications or medical history since last visit. Objective: Patient presents to clinic ambulating in [facility] Vasc: DP and PT pulses are nonpalpable bilateral. CFT is less than 5 seconds bilateral. Skin temperature is warm to cool proximal to distal bilateral. There is mild edema or varicosities noted. Neuro: Protective sensation is absent to the foot and toes when tested with the 5.07 SWM bilateral.Vibratory sensation is absent at the hallux IPJ bilateral. The hallux is downgoing bilateral. Derm: Nails 1-5 b/l are painful, discolored-yellow, thick, crumbly, dystrophic and with subungal debris. Skin is dry and hair growth is absent bilateral. There are no hyperkeratosis, ulcerations, scars, verruca or other lesions noted. Ortho: Muscle strength is 5/5 for all pedal groups tested. Ankle joint DF is decreased with the knee extended with no pain or crepitus noted. 1st MPJ ROM is decreased bilateral. Small tailors bunion is noted b/l Assessment: (B35.1) Onychomycosis (primary encounter diagnosis) (M79.675) Pain in toe of left foot (M79.674) Pain in toe of right foot (E11.49) Well controlled type 2 diabetes mellitus with neurological manifestations ([facility]) (I73.9) PAD (peripheral artery disease) ([facility]) (L85.9) Hyperkeratosis Plan: Patient was seen and evaluated. Nails 1-5 bilateral were debrided in length and thickness. Offered diabetic shoes. He declined Recommend lotion to feet daily. Patient was instructed on the continued importance of diabetic foot care along with proper diet andkeeping their blood sugar under control to prevent complications. Patient is to RTC in 3-4 months. Gomez Schwab DPM * Cheryle Merritt LPN - 07/26/2023 1:29 PM EDT AMB ROOMING INTAKE FLOWSHEET DATA Patient presents with: Left Foot - Established Patient, Diabetic Foot Care, Follow Up Right Foot - Established Patient, Follow Up, Diabetic Foot Care Cheryle Merritt LPN documented in this encounterKing'[facility] [place]09-29-2023 Instructions* Patient Instructions* Gomez Schwab - 07/26/2023 1:32 PM EDT Diabetes Foot Care Instructions When you have diabetes, proper foot care is very important. Poor foot care may lead to amputation of a foot or leg. As a person with diabetes, you are more vulnerable to foot problems, because diabetes can damage your nerves and reduce blood flow to your feet. Here are some diabetes foot care tips to follow: Wash and Dry Your Feet Daily Use mild soaps Use warm water Pat your skin dry; do not rub. Thoroughly dry your feet. After washing, use lotion on your feet to prevent cracking. Do not put lotion between your toes. Examine Your Feet Each Day Check the tops and bottoms of your feet. Have someone else look at your feet if you cannot see them. Check for dry, cracked skin. Look for blisters, cuts, scratches, or other sores. Check for redness, increased warmth, or tenderness when touching any area of your feet. Check for ingrown toenails, corns, and calluses. If you get a blister or sore from your shoes, do not pop it. Apply a bandage and wear a differentpair of shoes. Take Care of Your Toenails Cut toenails after bathing, when they are soft. Cut toenails straight across and smooth with a nail file. Avoid cutting into the corners of toes. Do not cut cuticles. If you have neuropathy (or decreased sensation in your feet) a briar cutter should always cut your toenails. Be Careful When Exercising Walk and exercise in comfortable shoes. Do not exercise when you have open sores on your feet. Protect Your Feet With Shoes and Socks Never go barefoot. Always protect your feet by wearing shoes or hard-soled slippers or footwear. Avoid shoes with high heels and pointed toes. Avoid shoes that expose your toes or heels (such as open-toed shoes or sandals). These types of shoes increase your risk for injury and potential infections. Try on new footwear with the type of socks you usually wear. Do not wear new shoes for more than an hour at a time. Change your socks daily. Look and feel inside your shoes before putting them on to make sure there are no foreign objects orrough areas. Avoid tight socks. Wear natural-fiber socks (cotton, wool, or a cotton-wool blend). Wear special shoes if your health care provider recommends them. Wear shoes/boots that will protect your feet from various weather conditions (cold, moisture, etc.). Make sure your shoes fit properly. If you have neuropathy (nerve damage), you may not notice that your shoes are too tight. Perform the footwear test described below. Footwear Test Use this simple test to see if your shoes fit correctly: Stand on a piece of paper. (Make sure you are standing and not sitting, because your foot changes shape when you stand.) Trace the outline of your foot. Trace the outline of your shoe. Compare the tracings: Is the shoe too narrow? Is your foot crammed into the shoe? The shoe should be at least 1/2 inch longer than your longest toe and as wide as your foot. Proper Shoe Choices The following types of shoes are best for people with diabetes Closed toes and heels Leather uppers without a seam inside At least 1/2 inch extra space at the end of your longest toe Inside of shoe should be soft with no rough areas Outer sole should be made of stiff material Shoes should be at least as wide as your feet Tips for Foot Care in Diabetes Don't wait to treat a minor foot problem if you have diabetes. Follow your health care provider's guidelines and first aid guidelines. Report foot injuries and infections to your health care provider immediately. Check water temperature with your elbow, not your foot. Do not use a heating pad on your feet. Do not cross your legs. Do not self-treat your corns, calluses, or other foot problems. Go to your health care provider or briar cutter to treat these conditions. documented in this encounterKing[facility] [place]07-10-[facility] History of Present illness Narrative* Bib Patterson MD - 05/06/2023 3:35 PM EDT Images from the original note were not included. Bib Patterson MD Interventional Cardiology [facility] [address], [place] [address] [phone] Chief Complaint Patient presents with: Follow Up HISTORY OF PRESENT ILLNESS: Mr. Hutson is a 73 year old male seen in my office today for assessment management prior history ofsevere three-vessel coronary artery disease required bypass surgery in 2012 severe bilateral peripheral vascular disease required bilateral endarterectomy of the iliac common femoral with popliteal stent Patient is asymptomatic from a cardiac point of view denies anginal chest pain No signs or symptoms of congestive heart failure Claudications with peripheral vascular disease Cardiac Risk Factors age (male over 45, female over 55), hyperlipidemia, history of smoking, hypertension, family history of CAD PAST MEDICAL HISTORY Diagnosis Date Atherosclerosis of hoh arteries of the extremities with intermittent claudication 09/07/2010 BENIGN NEOPLASM LG BOWEL 07/29/2008 Tubular adenoma. BPH without obstruction/lower urinary tract symptoms 12/29/2007 Coronary artery disease Dermatophytosis of nail 12/29/2007 Diabetic peripheral neuropathy (HCC) 05/17/2014 DVT of leg (deep venous thrombosis) (HCC) 11/16/2013 post-op CABG, rx with Xarelto Hypertrophy of prostate without urinary obstruction and other lower urinary tract symptoms (LUTS) 12/29/2007 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/29/2007 Non-ST elevation myocardial infarction (NSTEMI) 10/17/2013 Nonspecific abnormal results of liver function study 04/29/2008 Obesity, unspecified 12/29/2007 Other and unspecified hyperlipidemia PAD (peripheral artery disease) (HCC) 08/05/2009 Personal history of other malignant neoplasm of skin 11/05/2010 skin cancer Postoperative anemia 10/25/2013 Transfused on 10/25 1 U PRBC. H&H 9.2/26.3. DC on diuretic taper for dilutional component and MVI with iron and repeat as outpt Primary osteoarthritis of left knee 02/21/2018 [facility]. Type II or unspecified type diabetes mellitus without mention of complication, not stated as uncontrolled 12/29/2007 Unspecified essential hypertension PAST SURGICAL HISTORY Procedure Laterality Date ANGIOPLASTY FEMORAL/POP right BALLN ANGIOPLASTY PERC,FEM-POP 11-17-09 APLL WITH SILVERHAWK AND ANGIOPLASTY COLONOSCOPY FLX DX W/COLLJ SPEC WHEN PFRMD 2007 Colonoscopy COLONOSCOPY FLX DX W/COLLJ SPEC WHEN PFRMD 09/14/13 Colonoscopy COLONOSCOPY FLX DX W/COLLJ SPEC WHEN PFRMD 12/02/2018 Colonoscopy CORONARY ARTERY BYP W/VEIN & ARTERY GRAFT 3 VEIN 10/20/2013 CABG, three grafts F ENDARTERECTOMY FEMORAL PROFUNDA Bilateral 05/24/2016 fem. endarterectomy, profundaplasty LEFT HEART CATH,PERCUTANEOUS 10/19/2013 Cardiac cath, L heart PRIM PRQ TRLUML MCHNL THRMBC N-COR N-ICRA 1ST 12-05-2009 left REVSC OPN/PRQ ILIAC ART W/STNT PLMT & ANGIOPLSTY Left 04/19/16 with 9x29mm satish stenting SLCTV CATHJ EA 2ND+ ORD ABDL PEL/LXTR ART BRNCH 11-17-09 LLE UNSPECIFIED ORAL SURGERY PROCEDURE, BY REPORT wisdom teeth removed FAMILY HISTORY Problem Relation Age of Onset Cancer Mother lymphoma, passed Heart Father 46 Stroke Father passed from this Cancer Maternal Grandfather unsure of the type Heart Paternal Grandfather GI Brother inflammatory bowel disease, crohn's Social History Tobacco Use Smoking status: Former Packs/day: 1.00 Years: 34.00 Total pack years: 34.00 Types: Cigarettes Quit date: 10/28/2002 Years since quittin.5 Smokeless tobacco: Never Vaping Use Vaping Use: Never used Substance Use Topics Alcohol use: Yes Alcohol/week: 42.0 standard drinks of alcohol Types: 42 Cans of Beer (12oz) per week Comment: 6 beers per day, sometimes less Drug use: Yes Frequency: 2.0 times per week Comment: marijuana ALLERGIES No Known Allergies Medications: Current Outpatient Medications Medication Sig Dispense Refill hydrALAZINE (APRESOLINE) 100 mg tablet Take 1 tablet by mouth three times daily. 270 tablet 3 gabapentin (NEURONTIN) 300 mg capsule Take 1 capsule by mouth daily at bedtime for 180 days. 90 capsule 1 [START ON 06/10/2023] cloNIDine HCl (CATAPRES) 0.2 mg tablet Take 1 tablet by mouth twice daily. 180tablet 3 lisinopril (ZESTRIL) 40 mg tablet Take 1 tablet by mouth twice daily. 180 tablet 3 carvedilol (COREG) 12.5 mg tablet Take 1 tablet by mouth twice daily. 180 tablet 3 metFORMIN (GLUCOPHAGE) 500 mg tablet Take 2 tablets by mouth twice daily with meals. 360 tablet 3 amLODIPine (NORVASC) 10 mg tablet Take 1 tablet by mouth once daily. 90 tablet 3 cilostazol (PLETAL) 50 mg tablet Take 1 tablet by mouth twice daily. 180 tablet 3 atorvastatin (LIPITOR) 40 mg tablet Take 1 tablet by mouth once daily. For cholesterol 90 tablet 3 Miscellaneous Medical Supply (COMPRESSION STOCKINGS[place] [facility] [place]INGS KNEE HI 20-30 WT M79.89 2 Each 3 aspirin 81 mg chewable tablet Take 2 tablets by mouth once daily. 0 therapeutic multivitamin tablet Take 1 tablet by mouth daily with breakfast. 0 blood sugar diagnostic (ONE TOUCH ULTRA TEST) test strip Use as instructed 100 Strip 0 blood sugar diagnostic (ONE TOUCH ULTRA TEST) test strip TEST BLOOD SUGARS ONCE DAILY 50 Strip 6 lancets(ONE TOUCH ULTRASOFT LANCETS) Test blood sugar once daily. 100 3 No current facility-administered medications for this visit. Review of Systems Constitutional: Negative for chills, diaphoresis, fever, malaise/fatigue and weight loss. HENT: Negative for congestion, ear discharge, ear pain, hearing loss, nosebleeds, sinus pain, sore throat and tinnitus. Eyes: Negative for blurred vision, double vision, photophobia, pain, discharge and redness. Respiratory: Negative for cough, hemoptysis, sputum production, shortness of breath, wheezing and stridor. Cardiovascular: Negative for chest pain, palpitations, orthopnea, claudication, leg swelling and PND. Gastrointestinal: Negative for abdominal pain, blood in stool, constipation, diarrhea, heartburn, melena, nausea and vomiting. Genitourinary: Negative for dysuria, flank pain, frequency, hematuria and urgency. Musculoskeletal: Negative for back pain, falls, joint pain, myalgias and neck pain. Skin: Negative for itching and rash. Neurological: Negative for dizziness, tingling, tremors, sensory change, speech change, focal weakness, seizures, loss of consciousness, weakness and headaches. Endo/Heme/Allergies: Negative for environmental allergies and polydipsia. Does not bruise/bleed easily. Psychiatric/Behavioral: Negative for depression, hallucinations, memory loss, substance abuse and suicidal ideas. The patient is not nervous/anxious and does not have insomnia. Physical Examination: Vitals:BP 156/78 Pulse 59 Ht 5' 7 (1.70m) Wt 223 lb 3.2 oz (101.2kg) SpO2 98% BMI 34.95 kg/(m^2). BP w/Orthostatic Vitals Date and Time Orthostatic BP Orthostatic Pulse BP Pulse BP Position BP Site BP Cuff Size 05/06/23 1518 -- -- 156/78 59 -- -- -- Last 2 Encounter Wt Readings: Date: Wt: 05/06/2023 101.2 kg (223 lb 3.2 oz) 04/01/2023 101.7 kg (224 lb 3.2 oz) Physical Exam Constitutional: General: He is not in acute distress. Appearance: He is not diaphoretic. HENT: Head: Normocephalic and atraumatic. Right Ear: External ear normal. Left Ear: External ear normal. Nose: Nose normal. Mouth/Throat: Pharynx: Oropharynx is clear. Eyes: General: Right eye: No discharge. Left eye: No discharge. Conjunctiva/sclera: Conjunctivae normal. Pupils: Pupils are equal, round, and reactive to light. Cardiovascular: Rate and Rhythm: Normal rate and regular rhythm. Heart sounds: Normal heart sounds, S1 normal and S2 normal. No murmur heard. No friction rub. No gallop. No S3 or S4 sounds. Pulmonary: Effort: Pulmonary effort is normal. No respiratory distress. Breath sounds: Normal breath sounds. No wheezing or rales. Chest: Chest wall: No tenderness. Musculoskeletal: General: Normal range of motion. Cervical back: Normal range of motion and neck supple. Skin: General: Skin is warm and dry. Neurological: Mental Status: He is alert and oriented to person, place, and time. Psychiatric: Mood and Affect: Mood normal. Thought Content: Thought content normal. Pertinent Labs: CBC: Hemoglobin (g/dL) Date Value 02/06/2023 13.2 11/21/2020 13.9 Hematocrit (%) Date Value 02/06/2023 36.9 11/21/2020 39.6 WBC (k/uL) Date Value 02/06/2023 4.16 11/21/2020 4.05 Platelet Count (k/uL) Date Value 02/06/2023 208 11/21/2020 201 BMP: Glucose (mg/dL) Date Value 02/06/2023 174 05/23/2021 129 Potassium (mmol/L) Date Value 02/06/2023 4.5 05/23/2021 4.4 Sodium (mmol/L) Date Value 02/06/2023 133 05/23/2021 136 Chloride (mmol/L) Date Value 02/06/2023 100 05/23/2021 103 CO2 (mmol/L) Date Value 02/06/2023 23 05/23/2021 21 Creatinine (mg/dL) Date Value 02/06/2023 0.64 05/23/2021 0.86 BUN (mg/dL) Date Value 02/06/2023 11 05/23/2021 15 Anion Gap (mmol/L) Date Value 02/06/2023 10 05/23/2021 12 Calcium (mg/dL) Date Value 05/23/2021 9.6 Calcium, Total (mg/dL) Date Value 02/06/2023 9.8 INR: Lipid Profile: Cholesterol, Total Date Value Ref Range Status 02/06/2023 124 <200 mg/dL Final Comment: <200 mg/dL, Desirable 200-239 mg/dL, Borderline high >239 mg/dL, High HDL Cholesterol Date Value Ref Range Status 02/06/2023 69 >39 mg/dL Final Comment: 40-59 mg/dL, Acceptable >59 mg/dL, High: Negative risk factor for coronary heart disease <40 mg/dL, Low: Positive risk factor for coronary heart disease LDL Cholesterol Date Value Ref Range Status 02/06/2023 45 <100 mg/dL Final Comment: <100 mg/dL, Optimal 100-129 mg/dL, Near optimal/above optimal 130-159 mg/dL, Borderline high 160-189 mg/dL, High >189 mg/dL, Very high Secondary prevention optimal LDL Cholesterol levels are recommended to be < 70 mg/dL Triglyceride Date Value Ref Range Status 02/06/2023 52 <150 mg/dL Final Comment: <150 mg/dL, Normal 150-199 mg/dL, Borderline high 200-499 mg/dL, High >499 mg/dL, Very high Hemoglobin A1C: No results found for: HGBA1C TSH: No results found for: TSHREFL Prior Cardiac Testing none Assessment and Plan: 73 years old gentleman with prior history of coronary artery disease and peripheral vascular disease ASSESSMENT/PLAN: ASSESSMENT/PLAN: 1. Screening for ischemic heart disease - ICD9: V81.0, ICD10: Z13.6 (primary diagnosis) No active angina Continue medical treatment - ECG COMPLETE 2. Coronary artery disease involving hoh coronary artery of hoh heart without angina pectoris- ICD9: 414.01, ICD10: I25.10 Prior history of bypass surgery consisted of a WRIGHT to the LAD vein graft to the PDA and vein graftto his mitral 3. Hx of CABG - ICD9: V45.81, ICD10: Z95.1 Stable with no angina 4. PVD (peripheral vascular disease) (HCC) - ICD9: 443.9, ICD10: I73.9 Claudication on medication MD Bib aGrner MD Follow up planning: One year Electronically signed by Bib Patterson MD on May 06, 2023, 3:35 PM The above note was partially created using a dictation recognition software. A reasonable attempt has been made to correct any errors. documented in this encounterKing[facility] [place]06-12-[facility] History of Present illness Narrative* Gomez Schwab - 04/08/2023 1:49 PM EDT Last saw pcp: 03/22/23 Subjective: Patient presents to clinic c/o painful toenails. They state that the nails are especially painful with shoe gear and pressure. Patient admits to being diabetic and states that their bloodsugar was 171 mg/dL this AM. No other pedal complaints at this time. Patient states no change in medications or medical history since last visit. Objective: Patient presents to clinic ambulating in sneakers Vasc: DP and PT pulses are nonpalpable bilateral. CFT is less than 5 seconds bilateral. Skin temperature is warm to cool proximal to distal bilateral. There is mild edema or varicosities noted. Neuro: Protective sensation is absent to the foot and toes when tested with the 5.07 SWM bilateral.Vibratory sensation is absent at the hallux IPJ bilateral. The hallux is downgoing bilateral. Derm: Nails 1-5 b/l are painful, discolored-yellow, thick, crumbly, dystrophic and with subungal debris. Skin is of normal turgor, texture and hair growth is absent bilateral. There are no hyperkeratosis, ulcerations, scars, verruca or other lesions noted. Ortho: Muscle strength is 5/5 for all pedal groups tested. Ankle joint DF is decreased with the knee extended with no pain or crepitus noted. 1st MPJ ROM is decreased bilateral. Assessment: (B35.1) Onychomycosis (primary encounter diagnosis) (M79.675) Pain in toe of left foot (M79.674) Pain in toe of right foot (E11.49) Well controlled type 2 diabetes mellitus with neurological manifestations ([facility]) (I73.9) PAD (peripheral artery disease) ([facility]) Plan: Patient was seen and evaluated. Nails 1-5 bilateral were debrided in length and thickness. Past callus has resolved. He has not noticed any callus. If he develops any callus he is to contactour office. Patient was instructed on the continued importance of diabetic foot care along with proper diet andkeeping their blood sugar under control to prevent complications. Patient is to RTC in 3-4 months. Gomez Schwab DPM * Blanca Manzanares RN - 04/08/2023 1:11 PM EDT Patient presents with: Left Foot - Established Patient, nail care Right Foot - Established Patient, nail care Pt presents to office for nail care of bilateral feet. Pt denies pain. No concerns at this time. documented in this encounterKing[facility] [place]06-05-2023 Instructions* Patient Instructions* Trevor Robison MD - 04/01/2023 10:39 AM EDT Continue aspirin and atorvastatin for stroke prevention. For Stroke patients, I discussed risk factor modification including: Hypertension - Target blood pressure <140/90, <130/85 for high risk, normal 120/80 Physical inactivity - target exercise at least 3 times per week Obesity - target ideal body weight and girth <35 for women, <40 for men Diabetes - Target <6.5 Smoking - Target smoking cessation Hyperlipidemia - Target total cholesterol < 200, Target LDL <100, < 70 for high risk, Target HDL >45 for men, >55 for women, Target triglycerides <150 documented in this encounterKing[facility] [place]06-05-2023 History of Present illness Narrative* Trevor Robison MD - 04/01/2023 10:35 AM EDT FOLLOW UP NOTE Subjective Marie Hutson is a 73 year old male who presents for follow up. CC: Left BRAO Summary of prior care: Left-handed male with a history of former smoking, HTN, HLD, DM with neuropathy, PAD, and CAD who presents for evaluation of left BRAO. His examination demonstrates decreased vision left eye, decreased achilles reflexes, and decreased sensation in feet. He had a left BRAO, a stroke equivalent. He has had full workup without obvious source other than his small vessel risk factors, which are currently under good control. Encouraged him to maintain this control to prevent future stroke. He is on aspirin and plavix for multiple indications - from a stroke perspective, now 4months post-stroke, he only needs to be on single antiplatelet, either aspirin or plavix being fine. If for his other conditions he needs to be on dual that is also fine, but doesn't need to stay on dual from a neuro perspective. Offered low vision OT but he doesn't feel impaired to need to do it. HPI Current Issues 1. BRAO - Stopped plavix, on aspirin and Pletal - Vision unchanged, denies functional impairment - Blood pressure has been good - Last A1c was up, increased metformin Current Outpatient Medications Medication Sig Dispense Refill hydrALAZINE (APRESOLINE) 100 mg tablet Take 1 tablet by mouth three times daily. 270 tablet 3 gabapentin (NEURONTIN) 300 mg capsule Take 1 capsule by mouth daily at bedtime for 180 days. 90 capsule 1 [START ON 06/10/2023] cloNIDine HCl (CATAPRES) 0.2 mg tablet Take 1 tablet by mouth twice daily. 180tablet 3 lisinopril (ZESTRIL) 40 mg tablet Take 1 tablet by mouth twice daily. 180 tablet 3 carvedilol (COREG) 12.5 mg tablet Take 1 tablet by mouth twice daily. 180 tablet 3 metFORMIN (GLUCOPHAGE) 500 mg tablet Take 2 tablets by mouth twice daily with meals. 360 tablet 3 amLODIPine (NORVASC) 10 mg tablet Take 1 tablet by mouth once daily. 90 tablet 3 cilostazol (PLETAL) 50 mg tablet Take 1 tablet by mouth twice daily. 180 tablet 3 atorvastatin (LIPITOR) 40 mg tablet Take 1 tablet by mouth once daily. For cholesterol 90 tablet 3 Miscellaneous Medical Supply (COMPRESSION STOCKINGS[place] [facility] [place]INGS KNEE HI 20-30 WT M79.89 2 Each 3 aspirin 81 mg chewable tablet Take 2 tablets by mouth once daily. 0 therapeutic multivitamin tablet Take 1 tablet by mouth daily with breakfast. 0 blood sugar diagnostic (ONE TOUCH ULTRA TEST) test strip Use as instructed 100 Strip 0 blood sugar diagnostic (ONE TOUCH ULTRA TEST) test strip TEST BLOOD SUGARS ONCE DAILY 50 Strip 6 lancets(ONE TOUCH ULTRASOFT LANCETS) Test blood sugar once daily. 100 3 No current facility-administered medications for this visit. REVIEW OF SYSTEMS His ROS was positive for that mentioned in the HPI. Otherwise a 10-point ROS was completed and was negative. Objective OBJECTIVE 04/01/23 1021 BP: 132/70 Pulse: 60 Temp: 36.2 C (97.2 F) TempSrc: Tympanic SpO2: 96% Weight: 101.7 kg (224 lb 3.2 oz) General: General Appearance: Well appearing, alert, in no acute distress, well-hydrated, well nourished. Head: Normocephalic Neck: Supple Heart: RRR Neurologic Exam: Mental Status: He is alert. He is fully oriented. Attention is intact. Memory is intact. Language shows normal comprehension and fluency. Affect is appropriate. Cranial Nerves: Pupils are equal and reactive to light. Extraocular movements show full and smooth pursuits. No nystagmus. Visual burton left eye upper nasal field blurred can count fingers everywhere else. Facial sensation is intact. Facial activation is symmetric. Hearing is intact to conversation. There is no hypomimia. There is no hypophonia. There is no dysarthria. Tongue is midline. Palate elevates symmetrically. Shoulder shrug is normal. Motor: Muscle bulk is normal. Rapid alternating movements are normal. Muscle power is full. Coordination: Finger to nose is smooth without ataxia. Gait/station: Normal NIHSS 0 DATA REVIEW Actual films/image/tracing reviewed and summarized as follows: n/a Old records reviewed and summarized as follows: Last A1c 7.5 up from 5.4 Reviewed external hospital records: - MRI Brain 05/30/22 normal - MRA H/N 05/30/22 no significant stenosis - TTE 05/30/22 EF 60%, normal LA size - Optho eval Dr. Melara left BRAO Local records reviewed including cardiology / vascular notes A1c 5.4, LDL 38 Assessment/Plan ASSESSMENT & PLAN: Marie Hutson is a 73 year old left-handed male with a history of former smoking, HTN, HLD, DM with neuropathy, PAD, and CAD who presents for evaluation of left BRAO. His examination demonstrates decreased vision left eye more upper medial field. 1. BRAO - On appropriate medication for secondary stroke prevention aspirin and atorvastatin. Is also on Pletal for PAD - Discussed risk factor control. BP has been good, DM up recently had medication change. DM controlalso important to prevent progression of neuropathy Follow-up: PRN Risks & Side Effects of Newly Prescribed Medication, Discussed with Patient: n/a Trevor Robison MD [facility] Neurology documented in this encounterKing'S [facility] [place]06-01-[facility]23 Miscellaneous Notes* Telephone Encounter - Palak Rosales LPN - 03/28/2023 8:56 AM EDT Patient has been identified by name and date of : Yes Patient phones for refill(s): Requested Prescriptions Pending Prescriptions Disp Refills hydrALAZINE (APRESOLINE) 100 mg tablet 270 tablet 1 Sig: Take 1 tablet by mouth three times daily. gabapentin (NEURONTIN) 300 mg capsule 90 capsule 1 Sig: Take 1 capsule by mouth daily at bedtime for 180 days. Date of last office visit in primary care: 03/22/2023 6 month follow-up: 08/09/2023 Last 2 Encounter Wt Readings: Date: Wt: 03/22/2023 100.7 kg (222 lb) 02/06/2023 101.6 kg (224 lb) Previous labs/tests for medication: Not applicable Please advise. Thank you. Palak Rosales LPN documented in this encounterKing'S [facility] [place]05-[facility] History of Present illness Narrative* Thompson Monzon MD - 03/20/2023 2:39 PM EDT Images from the original note were not included. [facility] V[facility] Thor[facility] [place] DEPARTMENT OF VASCULAR SURGERY VASCULAR SURGERY SERVICE DATE: 03/20/2023 SERVICE TIME: 2:41 PM PRIMARY CARE PHYSICIAN: Sher Jules MD CHIEF COMPLAINT/HISTORY OF PRESENT ILLNESS: Patient presents for follow up of PAD History of Present Illness: Marie Hutson is a 73 year old male Procedure(s): 05-24-16 Bilateral external iliac, common femoral, SFA endarterectomy and profundaplasty with combination vein and bovine pericardial patches (vein to each profunda, Bovine to LEATHER ETCHER to SFA origins. Extensive profundaplasty on left. November 2009 Hx L SFA atherectomy complicated by thrombus requiring thrombolysis and stent of popliteal. September 07, 2010 RLE DRIER AND PULVERIZER TENDER to 3mm, Atheterctomy and DRIER AND PULVERIZER TENDER to 6mm. Also with right retrograde PT access. Left stent was patent at that time with 80% stenosis of distal popliteal. R with 80% profunda lesion. February 17, 2016 he had repeat bilateral lower extremity noninvasive arterial exam at rest. His rightABI at rest is 0.4-4 DP and 0.45 for the PT. The left lower extremity DP is 0.15 and PT 0.27. He again underwent angiogram with Dr. Lord. Currently bilat calf claudication at ~30 yards, relieved with rest. Several days per week c/o night/rest pain in left foot relieved by dependent positioning. Currently patient has bilateral lower extremity calf claudication No rest pain No wounds Has no vein for bypass PAST MEDICAL/SURGICAL/FAMILY/SOCIAL HISTORY PAST MEDICAL HISTORY Diagnosis Date Atherosclerosis of hoh arteries of the extremities with intermittent claudication 09/07/2010 BENIGN NEOPLASM LG BOWEL 07/29/2008 Tubular adenoma. BPH without obstruction/lower urinary tract symptoms 12/29/2007 Coronary artery disease Dermatophytosis of nail 12/29/2007 Diabetic peripheral neuropathy (HCC) 05/17/2014 DVT of leg (deep venous thrombosis) (HCC) 11/16/2013 post-op CABG, rx with Xarelto Hypertrophy of prostate without urinary obstruction and other lower urinary tract symptoms (LUTS) 12/29/2007 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/29/2007 Non-ST elevation myocardial infarction (NSTEMI) 10/17/2013 Nonspecific abnormal results of liver function study 04/29/2008 Obesity, unspecified 12/29/2007 Other and unspecified hyperlipidemia PAD (peripheral artery disease) ([facility]) 08/05/2009 Personal history of other malignant neoplasm of skin 11/05/2010 skin cancer Postoperative anemia 10/25/2013 Transfused on 10/25 1 U PRBC. H&H 9.2/26.3. DC on diuretic taper for dilutional component and MVI with iron and repeat as outpt Primary osteoarthritis of left knee 02/21/2018 [facility]. Type II or unspecified type diabetes mellitus without mention of complication, not stated as uncontrolled 12/29/2007 Unspecified essential hypertension PAST SURGICAL HISTORY Procedure Laterality Date ANGIOPLASTY FEMORAL/POP right BALLN ANGIOPLASTY PERC,FEM-POP 11-17-09 APLL WITH SILVERHAWK AND ANGIOPLASTY COLONOSCOPY FLX DX W/COLLJ SPEC WHEN PFRMD 2007 Colonoscopy COLONOSCOPY FLX DX W/COLLJ SPEC WHEN PFRMD 09/14/13 Colonoscopy COLONOSCOPY FLX DX W/COLLJ SPEC WHEN PFRMD 12/02/2018 Colonoscopy CORONARY ARTERY BYP W/VEIN & ARTERY GRAFT 3 VEIN 10/20/2013 CABG, three grafts F ENDARTERECTOMY FEMORAL PROFUNDA Bilateral 05/24/2016 fem. endarterectomy, profundaplasty LEFT HEART CATH,PERCUTANEOUS 10/19/2013 Cardiac cath, L heart PRIM PRQ TRLUML MCHNL THRMBC N-COR N-ICRA 1ST 12-05-2009 left REVSC OPN/PRQ ILIAC ART W/STNT PLMT & ANGIOPLSTY Left 04/19/16 with 9x29mm satish stenting SLCTV CATHJ EA 2ND+ [facility] LLE UNSPECIFIED ORAL SURGERY PROCEDURE, BY REPORT wisdom teeth removed FAMILY HISTORY Problem Relation Age of Onset Cancer Mother lymphoma, passed Heart Father 46 Stroke Father passed from this Cancer Maternal Grandfather unsure of the type Heart Paternal Grandfather GI Brother inflammatory bowel disease, crohn's SOCIAL HISTORY Social History Tobacco Use Smoking status: Former Packs/day: 1.00 Years: 34.00 Pack years: 34.00 Types: Cigarettes Quit date: 10/28/2002 Years since quittin.4 Smokeless tobacco: Never Vaping Use Vaping Use: Never used Substance Use Topics Alcohol use: Yes Alcohol/week: 42.0 standard drinks Types: 42 Cans of Beer (12oz) per week Comment: 6 beers per day, sometimes less Drug use: Yes Frequency: 2.0 times per week Comment: marijuana MEDICATIONS/ALLERGIES Current Outpatient Medications Medication Sig Dispense Refill lisinopril (ZESTRIL) 40 mg tablet Take 1 tablet by mouth twice daily. 180 tablet 3 carvedilol (COREG) 12.5 mg tablet Take 1 tablet by mouth twice daily. 180 tablet 3 metFORMIN (GLUCOPHAGE) 500 mg tablet Take 2 tablets by mouth twice daily with meals. 360 tablet 3 amLODIPine (NORVASC) 10 mg tablet Take 1 tablet by mouth once daily. 90 tablet 3 cilostazol (PLETAL) 50 mg tablet Take 1 tablet by mouth twice daily. 180 tablet 3 hydrALAZINE (APRESOLINE) 100 mg tablet Take 1 tablet by mouth three times daily. 270 tablet 1 atorvastatin (LIPITOR) 40 mg tablet Take 1 tablet by mouth once daily. For cholesterol 90 tablet 3 gabapentin (NEURONTIN) 300 mg capsule Take 1 capsule by mouth daily at bedtime for 180 days. 90 capsule 1 cloNIDine HCl (CATAPRES) 0.2 mg tablet Take 1 tablet by mouth twice daily. 180 tablet 3 Miscellaneous Medical Supply (COMPRESSION STOCKINGS[place] [facility] [place]OCKINGS KNEE HI 20-30 WT M79.89 2 Each 3 aspirin 81 mg chewable tablet Take 2 tablets by mouth once daily. 0 therapeutic multivitamin tablet Take 1 tablet by mouth daily with breakfast. 0 blood sugar diagnostic (ONE TOUCH ULTRA TEST) test strip Use as instructed 100 Strip 0 blood sugar diagnostic (ONE TOUCH ULTRA TEST) test strip TEST BLOOD SUGARS ONCE DAILY 50 Strip 6 lancets(ONE TOUCH ULTRASOFT LANCETS) Test blood sugar once daily. 100 3 amLODIPine (NORVASC) 10 mg tablet Take 1 tablet by mouth once daily. 30 tablet 0 No current facility-administered medications for this visit. ALLERGIES No Known Allergies REVIEW OF SYSTEMS 10 point review of symptoms was non contributory to current problem PHYSICAL EXAM General: Alert and oriented, No acute distress, Healthy appearance, good historian. Integumentary: Normal color, no rash, no lesions. HEENT: EOM, pupils equal and round, no lesions or deformities. Cardiovascular: Normal S1 & S2, no murmurs Pulse regular. Lungs: Normal breath sounds, no wheezes or crackles., No chest deformities or chest wall tenderness. Abdomen: Soft, non-tender, no rigidity., No masses. Extremities: No deformity, joint swelling or clubbing. Neurological: Normal cognition and motor skills. Normal affect. No weakness or sensory deficit. 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 He has long segment SFA occlusion with occluded stents and abundant calcium. Has no greater saphenous vein for bypass Attempting revascularization could make him worse and push him into limb threatening ischemia Conservative management for now Follow up 6 months documented in this encounterKing[facility] [place]-20-[facility]23 Miscellaneous Notes* [facility] - Arlene Zepeda - 02/14/2023 12:30 PM EDT Radiology Service Progress Note PATIENT NAME: Marie Hutson DATE OF SERVICE: February 14, 2023 TIME: 1:33 PM PATIENT IDENTITY VERIFICATION COMPLETED USING TWO (2) IDENTIFIERS: Name and Date of confirmedby patient verbally and Name and Date of confirmed by identification band. FALL SCREENING: Has the patient had 2 falls in the last year or 1 fall with injury or currently using an Ambulatory Assistive Device (Walker, Cane, Wheelchair, Crutches, etc.)? No PATIENT GENDER DATA: Male PATIENT RELEVANT IMPLANT DATA REVIEWED: Not Applicable RADIOLOGY DEPARTMENT: CT; Exam(s) Completed: CTA Aorta/leg runoff PERIPHERAL IV DATA: Not applicable SIGNED BY: Arlene Zepeda February 14, 2023 1:33 PM documented in this encounterKing'S [facility] [place]04-20-2023 Nurse Note* Noemi Blackwood RN - 02/14/2023 12:30 PM EDT Radiology Service Progress Note DATE OF SERVICE: February 14, 2023 TIME: 12:52 PM PATIENT WEIGHT: 224LBS PATIENT IDENTITY VERIFICATION COMPLETED USING TWO (2) STANDARD IDENTIFIERS: Name and Date of confirmed by patient verbally and Name and Date of confirmed by identification band. FALL SCREENING: Has the patient had 2 falls in the last year or 1 fall with injury or currently using an Ambulatory Assistive Device (Walker, Cane, Wheelchair, Crutches, etc.)? No PATIENT GENDER DATA: Male ALLERGIES: Reviewed and unchanged CONTRAST ALLERGY: No EXAM: CT -CONTRAST INDUCED NEPHROPATHY RISK FACTORS: Patient age > 60 years CREATININE: Creatinine Date Value Ref Range Status 02/06/2023 0.64 (L) 0.73 - 1.22 mg/dL Final 01/15/2023 0.81 0.73 - 1.22 mg/dL Final 03/19/2022 0.70 (L) 0.73 - 1.22 mg/dL Final Estimated Glomerular Filtration Rate Date Value Ref Range Status 02/06/2023 101 >=60 mL/min/1.73m Final Comment: Estimated Glomerular Filtration Rate (eGFR) is calculated using the 2020 CKD-EPI creatinine equation. This equation utilizes serum creatinine, sex, and age as parameters. The creatinine assay has traceable calibration to isotope dilution- mass spectrometry. Refer to KDIGO guidelines for clinical interpretation. In patients with unstable renal function, e.g. those with acute kidney injury, the eGFRmay not accurately reflect actual GFR. eGFR- Date Value Ref Range Status 05/23/2021 >60 Final P.O.C.T. RESULTS: N/A February 14, 2023 TREATMENT: N/A IV SITE: Ambulatory: A peripheral IV was started in the Left antecubital site with a Angio cath: 20gauge. IV SITE APPEARANCE: Clean,Dry and Intact SIGNATURE: Noemi Blackwood RN PATIENT NAME: Marie Hutson DATE: February 14, 2023 TIME: 12:52 PM documented in this encounterKing'S [facility] [place]04-12-2023 Instructions* Patient Instructions* Sher Jules MD - 02/06/2023 10:46 AM EDT FASTING LABS TODAY. SEE MEDICATION LIST FOR CHANGES. documented in this encounterKing'S [facility] [place]04-12-2023 History of Present illness Narrative* Sher Jules MD - 02/06/2023 10:22 AM EDT This note was created using [employer] Subjective Marie Hutson is a 73 year old male. His diabetes mellitus had been elevating and we messaged in November to double metformin. His glucoses were not much better. His resistant hypertension had been controlled. However, quinapril had been out of stock and he hasbeen out for a few days. The local [facility] did not have this either. His choke reamer also prescribed carvedilol and he needed this for mail order. His lipids were controlled. Review of Systems Constitutional: Negative for appetite change, fever and unexpected weight change. HENT: Negative. Respiratory: Negative for cough, shortness of breath and wheezing. Cardiovascular: Negative for chest pain, palpitations and leg swelling. Gastrointestinal: Negative for abdominal pain, diarrhea, nausea and vomiting. Genitourinary: Negative for difficulty urinating. Neurological: Negative for dizziness and headaches. Psychiatric/Behavioral: Negative for dysphoric mood. 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) (Hcc) Actinic Skin Damage S/P Cabg X 3 Diabetic Peripheral Neuropathy (Hcc) Primary Osteoarthritis of Left Knee Obesity, Class I, Bmi 30-34.9 Sleep Apnea Mixed Sleep Apnea Branch Retinal Artery Occlusion, Left Social History Tobacco Use Smoking status: Former Packs/day: 1.00 Years: 34.00 Pack years: 34.00 Types: Cigarettes Quit date: 10/28/2002 Years since quittin.2 Smokeless tobacco: Never Vaping Use Vaping Use: Never used Substance Use Topics Alcohol use: Yes Alcohol/week: 42.0 standard drinks Types: 42 Cans of Beer (12oz) per week Comment: 6 beers per day, sometimes less Drug use: Yes Frequency: 2.0 times per week Comment: marijuana Current Outpatient Medications Medication Sig Quinapril HCl 40 mg tablet Take 1 tablet by mouth twice daily. amLODIPine (NORVASC) 10 mg tablet Take 1 tablet by mouth once daily. carvedilol (COREG) 12.5 mg tablet TAKE 1 TABLET BY MOUTH TWICE A DAY cilostazol (PLETAL) 50 mg tablet Take 1 tablet by mouth twice daily. amLODIPine (NORVASC) 10 mg tablet Take 1 tablet by mouth once daily. metFORMIN (GLUCOPHAGE) 500 mg tablet Take 1 tablet by mouth daily with breakfast. hydrALAZINE (APRESOLINE) 100 mg tablet Take 1 tablet by mouth three times daily. atorvastatin (LIPITOR) 40 mg tablet Take 1 tablet by mouth once daily. For cholesterol gabapentin (NEURONTIN) 300 mg capsule Take 1 capsule by mouth daily at bedtime for 180 days. cloNIDine HCl (CATAPRES) 0.2 mg tablet Take 1 tablet by mouth twice daily. Miscellaneous Medical Supply (COMPRESSION STOCKINGS[place] [facility] [place]OCKINGS KNEE HI 20-30 WT M79.89 aspirin 81 mg chewable tablet Take 2 tablets by mouth once daily. therapeutic multivitamin tablet Take 1 tablet by mouth daily with breakfast. blood sugar diagnostic (ONE TOUCH ULTRA TEST) test strip Use as instructed blood sugar diagnostic (ONE TOUCH ULTRA TEST) test strip TEST BLOOD SUGARS ONCE DAILY lancets(ONE TOUCH ULTRASOFT LANCETS) Test blood sugar once daily. No current facility-administered medications for this visit. Objective BP 154/69 Pulse (!) 59 Resp 16 Wt 101.6 kg (224 lb) BMI 32.14 kg/m Physical Exam Constitutional: General: He is not in acute distress. Cardiovascular: Rate and Rhythm: Normal rate and regular rhythm. Heart sounds: No murmur heard. No gallop. Pulmonary: Breath sounds: Normal breath sounds. Abdominal: Palpations: Abdomen is soft. Tenderness: There is no abdominal tenderness. Musculoskeletal: Right lower leg: No edema. Left lower leg: No edema. Neurological: Mental Status: He is alert. Feet:Shoes and socks removed, No deformities, ulcers, calluses, normal distal pulses, and not sensitive to monofilament in most toes. Depression Screening 01/21/2020 02/23/2021 07/18/2022 02/06/2023 PHQ-2 Score 0 0 0 0 Depression screening tool completed and reviewed. Based on score and interview, patient is not at risk for depression. Screening tool discussed with patient, and I recommended no further interventionat this time. Assessment and Plan 1. Well controlled type 2 diabetes mellitus with neurological manifestations (HCC) - ICD9: 250.60, ICD10: E11.49 (primary diagnosis) - Worsening control - Increase metformin - METFORMIN 500 MG TABLET increase to 1000 mg BID. - We discussed SGLT2i but he has PAD. Other options may be needed. - COMP METABOLIC PANEL - ALBUMIN/CREAT RATIO RND UR - HGB A1C - METFORMIN 500 MG TABLET - BASIC METABOLIC PNL - HGB A1C 2. Essential hypertension - ICD9: 401.9, ICD10: I10 - suboptimal control - Discontinue QUINAPRIL. - LISINOPRIL 40 MG TABLET. Take one(1) tablet two(2) times daily. - CARVEDILOL 12.5 MG TABLET - CBC 3. Hyperlipidemia with target LDL less than 70 - ICD9: 272.4, ICD10: E78.5 - good control - Continue current medication. - LIPID PANEL BASIC 4. PAD (peripheral artery disease) (HCC) - ICD9: 443.9, ICD10: I73.9 Stable. Sher Jules MD documented in this encounterKing'[facility] [place]04-10-2023 Miscellaneous Notes* Telephone Encounter - Jayson Lovell Ma - 02/04/2023 2:07 PM EDT Patient asking to switch pharmacies. Was advised that current pharmacy told him they are not sure when they will be able to get this rx in. * Telephone Encounter - Barb Leon APRN.CNP - 02/04/2023 1:42 PM EDT Does he just need a short term supply or is he changing pharmacies? Barb Leon APRN.CNP * Telephone Encounter - oSledad Granados - 02/04/2023 10:40 AM EDT Marie Hutson is calling Sher Jules MD today to request Med Change Request for Quinapril.Please send to [facility]. Patient has been identified by name and birthdate. Duration of symptoms: N/A Person calling: self Call patient at: on cell [phone] (home) [phone] (cell) Was an appointment scheduled: No Closing statement: Symptom Call: Thank you for calling [facility], your call is very important. A nurse will call in approximately 2-4 hours during business hours. If this is an emergency, please contact 911. Soledad Granados documented in this encounterKing'S [facility] [place]04-10-2023 Miscellaneous Notes* Telephone Encounter - Marta Bradley LPN - 02/04/2023 9:52 AM EDT Patient returned call and went over notes about rx with patient and he will check with his mail away pharmacy. documented in this encounterKing'S [facility] [place]04-06-2023 Miscellaneous Notes* Telephone Encounter - Palak Rosales LPN - 01/31/2023 8:59 AM EDT Marie we did receive your refill request for Quinapril 40mg, however a new prescription was done 10/24/2022 for 180 tablets, 3 refills sent to [facility] mail-order pharmacy. Please check with your pharmacy. Palak Rosales LPN documented in this encounterKing'S [facility] [place]03-22-2023 History of Present illness Narrative* Nargis Yin DO - 01/16/2023 5:00 PM EDT This office note has been dictated. Nargis Yin DO documented in this encounterKing'S [facility] [place]03-22-2023 Miscellaneous Notes* Telephone Encounter - Palak Rosales LPN - 01/16/2023 4:46 PM EDT Marie, a new prescription was done for Quinapril 40mg on 10/24/2022, x180 tablets, 3 refills, sent to [email or web address]. Please check with your mail- order pharmacy. I am forwarding your refill request for Amlodipine (Norvasc) 10mg on to Dr. Jules to review/approve. Patient has been identified by name and date of : Yes Patient phones for refill(s): Requested Prescriptions Pending Prescriptions Disp Refills amLODIPine (NORVASC) 10 mg tablet 90 tablet 3 Sig: Take 1 tablet by mouth once daily. Date of last office visit in primary care: 09/24/2022 7 month follow-up: 02/06/2023 Last 2 Encounter Wt Readings: Date: Wt: 01/15/2023 102.5 kg (226 lb) 10/03/2022 103.9 kg (229 lb) Previous labs/tests for medication: Blood Pressure: BUN (mg/dL) Date Value 03/19/2022 9 05/23/2021 15 Sodium (mmol/L) Date Value 03/19/2022 135 05/23/2021 136 Last 1 Encounter BP Readings: Date: BP: 01/15/2023 132/64 Please advise. Thank you. Palak Rosales LPN documented in this encounterKing'S [facility] [place]03-21-2023 Instructions* Patient Instructions* Nargis Yin DO - 01/15/2023 9:40 AM EDT Please send Dr. Yin a [employer] Mobile message after your CT scan for your circulation or call Dr. Yin at . We will review the scans and set you up with one of my partners for possible procedure/interventionto help your blood flow Continue walking and exercise as tolerated documented in this [facility]03-08-2023 Miscellaneous Notes* Telephone Encounter - Michelle Valverde LPN - 01/02/2023 9:55 AM EST Patient's request for medication is as follows: Requested Prescriptions Pending Prescriptions Disp Refills carvedilol (COREG) 12.5 mg tablet [Pharmacy Med Name: CARVEDILOL 12.5 MG TABLET] 60 tablet 3 Sig: TAKE 1 TABLET BY MOUTH TWICE A DAY Pt last seen 10/03/22. Next 04/08/23. Prescription(s) as above. Please process accordingly. Michelle Valverde LPN documented in this [facility]02-17-2023 Miscellaneous Notes* Telephone Encounter - Sher Jules MD - 12/14/2022 8:35 AM EST 1This patient gave consent to this Medical Advice Message and is aware that it may result in a billto their insurance, as well as the possibility of receiving a bill for a copay and/or deductible. They are an established patient, but are not seeking information exclusively about a problem treated during an in person or video visit in the last seven days. I did not recommend an in person or video visit within seven days of my reply. See the GET IT Mobile message reply for my assessment and plan. I spent a total of 10 minutes reviewing the patient's prior medical records and current request formedical advice, prescribing medications or ordering tests (if applicable), replying to the patient,and documenting the encounter. documented [facility] this [facility] [place] Miscellaneous Notes* Telephone Encounter - Shelbie Galeanahl Pss - 12/12/2022 11:49 AM EST Patient is calling in asking for a NEW refill to be sent to pharmacy as he has lost this bottle of medication and the insurance will not pay for it. Patient has been identified by name and date of : Yes Requested Prescriptions Pending Prescriptions Disp Refills amLODIPine (NORVASC) 10 mg tablet 30 tablet 0 Sig: Take 1 tablet by mouth once daily. RX INSTRUCTIONS: Patient aware RX will be sent to pharmacy. No need to notify patient. Shelbie Galeanahl Pss documented in this [facility]King[facility] [place]12-27-2022 Miscellaneous Notes* Telephone Encounter - Palak Rosales LPN - 10/23/2022 4:05 PM EST Patient has been identified by name and date of : Yes Patient phones for refill(s): Requested Prescriptions Pending Prescriptions Disp Refills hydrALAZINE (APRESOLINE) 100 mg tablet 42 tablet 0 Sig: Take 1 tablet by mouth three times daily. Date of last office visit in primary care: 07/18/2022 7 month follow-up: 02/06/2023 Last 2 Encounter Wt Readings: Date: Wt: 10/03/2022 103.9 kg (229 lb) 10/01/2022 104.8 kg (231 lb) Previous labs/tests for medication: Blood Pressure: BUN (mg/dL) Date Value 03/19/2022 9 05/23/2021 15 Sodium (mmol/L) Date Value 03/19/2022 135 05/23/2021 136 Last 1 Encounter BP Readings: Date: BP: 10/03/2022 140/70 Please advise. Thank you. Palak Rosales LPN documented in this encounterKing[facility] [place]12-14-20[facility] History of Present illness Narrative* Veronica Sierra MA - 10/10/2022 2:08 PM EST POPULATION HEALTH NAVIGATION OUTREACH Action/I FAST BUSY X2 MYCHART MESSAGE ANNUAL MEDICARE WELLNESS EXAM URINE ALBUMIN:CREATININE RATIO due on 05/23/2022 HBA1C due on 09/19/2022 DILATED RETINAL EXAM due on 10/26/2022 Pt identified by name and : NO Outreach Outcome/Action Unable to reach patient: Phone number not valid / voicemail full Serushart message sent Did you use a PCP flex slot to schedule this appointment? N/A Reason for Outreach Care Gap or Scheduling/Wellness visits Payer: Payor: MEDICARE / Plan: MEDICARE A AND B / Product Type: Medicare / Care Gap Reviewed:: Annual Wellness visit Diabetic Eye Exam HBA1C Nephropathy (Albumin/Creatinine) Urine Reminder: Reminder note to check Health Maintenance for items below Health Maintenance items due: DEPRESSION ASSESSMENT Never done URINE ALBUMIN:CREATININE RATIO due on 05/23/2022 DIABETIC FOOT EXAM due on 06/30/2022 HBA1C due on 09/19/2022 DILATED RETINAL EXAM due on 10/26/2022 Navigation Signature: Veronica Sierra MA October 10, 2022 2:08 PM documented in this encounterKing[facility] [place]-07-[facility] History of Present illness Narrative* Jules Dukes MD - 10/03/2022 1:26 PM EST Cardiology consultation at the request of Dr Jules. A copy of this consultation note will be provided to the requesting physician by way of shared Medical record or letter to requesting physicianvia US mail. Chief Complaint: Patient presents with: Follow Up History of Present Illness: Marie Hutson is a 72 year old male with history of CAD s/p three-vessel CABG, PAD s/p stents in both lower extremity arteries, uncontrolled hypertension, obesity, diabetes, former smoker was referred by his primary care physician for management of his cardiac issues and blood pressure. Patient was at the [place] emergency room on May 30 for vision disturbance in his left eye and was diagnosedwith CRAO. Patient has not seen a neurologist since hospital discharge and the power house control room operator did not make any definitive recommendations regarding anticoagulation. Patient denies any chest pain shortness of breath palpitations lightheadedness syncope orthopnea PND or edema. PAST MEDICAL HISTORY Diagnosis Date Atherosclerosis of hoh arteries of the extremities with intermittent claudication 09/07/2010 BENIGN NEOPLASM LG BOWEL 07/29/2008 Tubular adenoma. BPH without obstruction/lower urinary tract symptoms 12/29/2007 Coronary artery disease Dermatophytosis of nail 12/29/2007 Diabetic peripheral neuropathy (HCC) 05/17/2014 DVT of leg (deep venous thrombosis) ([facility]) 11/16/2013 post-op CABG, rx with Xarelto Hypertrophy of prostate without urinary obstruction and other lower urinary tract symptoms (LUTS) 12/29/2007 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/29/2007 Non-ST elevation myocardial infarction (NSTEMI) 10/17/2013 Nonspecific abnormal results of liver function study 04/29/2008 Obesity, unspecified 12/29/2007 Other and unspecified hyperlipidemia PAD (peripheral artery disease) ([facility]) 08/05/2009 Personal history of other malignant neoplasm of skin 11/05/2010 skin cancer Postoperative anemia 10/25/2013 Transfused on 10/25 1 U PRBC. H&H 9.2/26.3. DC on diuretic taper for dilutional component and MVI with iron and repeat as outpt Primary osteoarthritis of left knee 02/21/2018 [facility]. Type II or unspecified type diabetes mellitus without mention of complication, not stated as uncontrolled 12/29/2007 Unspecified essential hypertension PAST SURGICAL HISTORY Procedure Laterality Date ANGIOPLASTY FEMORAL/POP right BALLN ANGIOPLASTY PERC,FEM-POP 11-17-09 APLL WITH SILVERHAWK AND ANGIOPLASTY COLONOSCOPY FLX DX W/COLLJ SPEC WHEN PFRMD 2007 Colonoscopy COLONOSCOPY FLX DX W/COLLJ SPEC WHEN PFRMD 09/14/13 Colonoscopy COLONOSCOPY FLX DX W/COLLJ SPEC WHEN PFRMD 12/02/2018 Colonoscopy CORONARY ARTERY BYP W/VEIN & ARTERY GRAFT 3 VEIN 10/20/2013 CABG, three grafts F ENDARTERECTOMY FEMORAL PROFUNDA Bilateral 05/24/2016 fem. endarterectomy, profundaplasty LEFT HEART CATH,PERCUTANEOUS 10/19/2013 Cardiac cath, L heart PRIM PRQ TRLUML MCHNL THRMBC N-COR N-ICRA 1ST 12-05-2009 left REVSC OPN/PRQ ILIAC ART W/STNT PLMT & ANGIOPLSTY Left 04/19/16 with 9x29mm satish stenting SLCTV CATHJ EA 2ND+ ORD ABDL PEL/LXTR ART [facility] 11-17-09 LLE UNSPECIFIED ORAL SURGERY PROCEDURE, BY REPORT wisdom teeth removed FAMILY HISTORY Problem Relation Age of Onset Cancer Mother lymphoma, passed Heart Father 46 Stroke Father passed from this Cancer Maternal Grandfather unsure of the type Heart Paternal Grandfather GI Brother inflammatory bowel disease, crohn's Social History Tobacco Use Smoking status: Former Packs/day: 1.00 Years: 34.00 Pack years: 34.00 Types: Cigarettes Quit date: 10/28/2002 Years since quittin.9 Smokeless tobacco: Never Vaping Use Vaping Use: Never used Substance Use Topics Alcohol use: Yes Alcohol/week: 42.0 standard drinks Types: 42 Cans of Beer (12oz) per week Comment: 6 beers per day, sometimes less Drug use: Yes Frequency: 2.0 times per week Comment: marijuana Current Outpatient Medications Medication Sig carvedilol (COREG) 12.5 mg tablet Take 1 tablet by mouth twice daily. cloNIDine HCl (CATAPRES) 0.2 mg tablet Take 1 tablet by mouth twice daily. hydrALAZINE (APRESOLINE) 100 mg tablet Take 1 tablet by mouth three times daily. gabapentin (NEURONTIN) 300 mg capsule Take 1 capsule by mouth daily at bedtime for 180 days. clopidogrel (PLAVIX) 75 mg tablet Take 1 tablet by mouth once daily. atorvastatin (LIPITOR) 40 mg tablet Take 1 tablet by mouth once daily. For cholesterol amLODIPine (NORVASC) 10 mg tablet Take 1 tablet by mouth once daily. metFORMIN (GLUCOPHAGE) 500 mg tablet Take 1 tablet by mouth daily with breakfast. Quinapril HCl 40 mg tablet Take 1 tablet by mouth twice daily. Miscellaneous Medical Supply (COMPRESSION STOCKINGS[place] [facility] KNEE HI 20-30 WT M79.89 aspirin 81 mg chewable tablet Take 2 tablets by mouth once daily. therapeutic multivitamin tablet Take 1 tablet by mouth daily with breakfast. blood sugar diagnostic (ONE TOUCH ULTRA TEST) test strip Use as instructed blood sugar diagnostic (ONE TOUCH ULTRA TEST) test strip TEST BLOOD SUGARS ONCE DAILY lancets(ONE TOUCH ULTRASOFT LANCETS) Test blood sugar once daily. No current facility-administered medications for this visit. ALLERGIES No Known Allergies Review of Systems: General: No weight loss, malaise, fevers, chills, or night sweats HEENT: Negative for epistaxis Neck: Negative for pain and significant neck swelling Respiratory: Negative for cough, shortness of breath at rest or on exertion, wheezing Cardiac: Negative history of chest pain on exertion, dyspnea on exertion, orthopnea, paroxysmal nocturnal dyspnea, lower extremity edema, presyncope, syncope, or palpitations Gastrointestinal: Negative history of abdominal pain, nausea, vomiting, constipation, diarrhea, melena, or hematochezia Urinary: Negative history of dysuria, hematuria, or frequency Peripheral vascular: No claudication Musculoskeletal: Negative for joint aches/pain, neck pain, or back pain Neurologic: Negative history of dizziness/lightheadedness, vertigo, numbness/tingling of hands or feet Hematologic: Negative for easy bruising or easy bleeding. Endocrine: Negative history of obesity Skin: Negative history of rash and itching Other: The rest of the review of systems is unremarkable and negative or non-contributory Physical Examination: BP 140/70 (BP Site: Left Arm, BP Position: Sitting, BP Cuff Size: Regular Adult) Pulse 66 Ht 177.8 cm (5' 10) Wt 103.9 kg (229 lb) SpO2 96% BMI 32.86 kg/m BMI 32.86 kg/(m^2) I have confirmed and edited as necessary, the PFSH and ROS obtained by others. Cardiac Testing and Procedures: Electrocardiogram: 09/05/2022: Normal sinus rhythm at 60 bpm. Normal EKG. Echocardiogram: 05/30/2022: EF 60%. Grade 1 diastolic dysfunction. CABG 10/20/2013: WRIGHT to LAD, SVG to PDA and OM I have personally reviewed the Electrocardiogram. ASSESSMENT/PLAN: 1. Essential hypertension - ICD9: 401.9, ICD10: I10 - Adequately controlled - Continue current medication(s) -Continue Coreg and the current dose. I have asked him to monitor his blood pressures at home and to let me know in 3 to 4 weeks what his readings are. I have demonstrated to him the right way to checking his blood pressure when he is relaxed on an empty bladder without any tea or coffee for half an hour prior to checking his blood pressure with the feet on the floor and the arm at the level of the heart. If blood pressures remain above goal to increase Coreg dose further to 25 mg twice a day. - Recommended regular aerobic exercise. - Recommend home blood pressure monitoring, to bring results in on next visit - Goal of BP <130/80 2. CAD S/P CABG x 3 - ICD9: V45.81, ICD10: Z95.1 Patient denies any anginal symptoms. To continue aspirin beta-blockers, calcium channel blockers and high intensity statins. LDL is below goal. No indication from a cardiac standpoint for patient to continue Plavix. Both the neurologist and the vascular surgeon have also indicated in their notes that patient does not need to be on dual antiplatelet agents. I will discontinue Plavix. 3. PAD with bilateral lower extremity stents H/o L superficial femoral/popliteal/posterior tibial artery artherectomy and angioplasty 07/2010 and R femoral artery arterectomy and angioplasty, right popliteal angioplasty. Vascular surgeon has mentioned that patient does not need to continue Plavix anymore and this will be discontinued. 4. CRAO Patient has seen a neurologist for this. Patient has indicated that he would like to continue his follow-ups in the future at the [facility]. I have informed him that 2 of my esteemed colleagues see patients there and I will establish him with one of them. Jules Dukes MD documented in this encounterKing[facility] [place]12-[facility] History of Present illness Narrative* Trevor Robison MD - 10/01/2022 9:47 AM EST NEW PATIENT EVALUATION Subjective HPI Marie Hutson is a 72 year old left-handed male who presents for evaluation of left BRAO. Dr. Dukes is the referring physician. Dr. Sher Jules MD is the PCP. He had a left BRAO 05/2022. He was driving and had to jawbone puller because the eye was so blurry. Has partial vision in the left eye not sure about where it is cut or not. He initially saw his optho who sent him to the hospital, where he had testing that was mostly unremarkable. He is on aspirin and plavix, has been prior to this and continues on it now. He is on atorvastatin 40 mg from prior to hospitalization. Former smoker, quit 2002. History of diabetes well controlled on metformin. HTN on multiple medications, currently is OK but has been a rodriguez getting it corrected. Medications: Current Outpatient Medications Medication Sig Dispense Refill carvedilol (COREG) 12.5 mg tablet Take 1 tablet by mouth twice daily. 60 tablet 3 cloNIDine HCl (CATAPRES) 0.2 mg tablet Take 1 tablet by mouth twice daily. 180 tablet 3 hydrALAZINE (APRESOLINE) 100 mg tablet Take 1 tablet by mouth three times daily. 42 tablet 0 gabapentin (NEURONTIN) 300 mg capsule Take 1 capsule by mouth daily at bedtime for 180 days. 90 capsule 1 clopidogrel (PLAVIX) 75 mg tablet Take 1 tablet by mouth once daily. 90 tablet 3 atorvastatin (LIPITOR) 40 mg tablet Take 1 tablet by mouth once daily. For cholesterol 90 tablet 3 amLODIPine (NORVASC) 10 mg tablet Take 1 tablet by mouth once daily. 90 tablet 3 metFORMIN (GLUCOPHAGE) 500 mg tablet Take 1 tablet by mouth daily with breakfast. 90 tablet 3 Quinapril HCl 40 mg tablet Take 1 tablet by mouth twice daily. 180 tablet 3 Miscellaneous Medical Supply (COMPRESSION STOCKINGS) [facility] [place] [place]INGS KNEE HI 20-30 WT M79.89 2 Each 3 aspirin 81 mg chewable tablet Take 2 tablets by mouth once daily. 0 therapeutic multivitamin tablet Take 1 tablet by mouth daily with breakfast. 0 blood sugar diagnostic (ONE TOUCH ULTRA TEST) test strip Use as instructed 100 Strip 0 blood sugar diagnostic (ONE TOUCH ULTRA TEST) test strip TEST BLOOD SUGARS ONCE DAILY 50 Strip 6 lancets(ONE TOUCH ULTRASOFT LANCETS) Test blood sugar once daily. 100 3 No current facility-administered medications for this visit. ROS ROS: His ROS was positive for that mentioned in the HPI. Otherwise a 10-point ROS was completed andwas negative. ALLERGIES No Known Allergies Past Medical History: PAST MEDICAL HISTORY Diagnosis Date Atherosclerosis of hoh arteries of the extremities with intermittent claudication 09/07/2010 BENIGN NEOPLASM LG BOWEL 07/29/2008 Tubular adenoma. BPH without obstruction/lower urinary tract symptoms 12/29/2007 Coronary artery disease Dermatophytosis of nail 12/29/2007 Diabetic peripheral neuropathy (HCC) 05/17/2014 DVT of leg (deep venous thrombosis) (HCC) 11/16/2013 post-op CABG, rx with Xarelto Hypertrophy of prostate without urinary obstruction and other lower urinary tract symptoms (LUTS) 12/29/2007 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/29/2007 Non-ST elevation myocardial infarction (NSTEMI) 10/17/2013 Nonspecific abnormal results of liver function study 04/29/2008 Obesity, unspecified 12/29/2007 Other and unspecified hyperlipidemia PAD (peripheral artery disease) (HCC) 08/05/2009 Personal history of other malignant neoplasm of skin 11/05/2010 skin cancer Postoperative anemia 10/25/2013 Transfused on 10/25 1 U PRBC. H&H 9.2/26.3. DC on diuretic taper for dilutional component and MVI with iron and repeat as outpt Primary osteoarthritis of left knee 02/21/2018 [facility]. Type II or unspecified type diabetes mellitus without mention of complication, not stated as uncontrolled 12/29/2007 Unspecified essential hypertension Family History: FAMILY HISTORY Problem Relation Age of Onset Cancer Mother lymphoma, passed Heart Father 46 Stroke Father passed from this Cancer Maternal Grandfather unsure of the type Heart Paternal Grandfather GI Brother inflammatory bowel disease, crohn's Social History: Social History Tobacco Use Smoking status: Former Packs/day: 1.00 Years: 34.00 Pack years: 34.00 Types: Cigarettes Quit date: 10/28/2002 Years since quittin.9 Smokeless tobacco: Never Vaping Use Vaping Use: Never used Substance Use Topics Alcohol use: Yes Alcohol/week: 42.0 standard drinks Types: 42 Cans of Beer (12oz) per week Comment: 6 beers per day, sometimes less Drug use: Yes Frequency: 2.0 times per week Comment: marijuana Objective 10/01/22 0921 BP: 124/63 BP Site: Right Arm BP Position: Sitting BP Cuff Size: Large Adult Pulse: 75 Weight: 104.8 kg (231 lb) Height: 177.8 cm (5' 10) Physical Examination General Appearance: Well appearing, alert, in no acute distress, well-hydrated, well nourished. Head: Normocephalic, no masses, lesions, tenderness or abnormalities Neck: Supple Heart: RRR Peripheral Pulses: Normal Neurologic Examination Mental Status: He is alert. He is fully oriented. Attention is intact. Recent and remote memory is intact. Language shows normal comprehension and fluency. Praxis is normal. Affect is appropriate. Cranial Nerves: Pupils are equal and reactive to light. Extraocular movements show full and smooth pursuits. No nystagmus. Visual burton left eye upper field more impaired / blurred though able to count fingers in all burton. Facial sensation is intact. Facial activation is symmetric. Hearing is intact to conversation. There is no hypomimia. There is no hypophonia. There is no dysarthria. Tongue is midline. Palate elevates symmetrically. Shoulder shrug is normal. Motor: Muscle bulk is normal. Rapid alternating movements are normal. Muscle power is full. Sensory: Decreased ankles to vib Reflex: Biceps and brachioradialis is 2+ bilaterally. Patellar reflex 2+ bilaterally. Ankle jerks 0bilaterally. Coordination: Finger to nose is smooth without ataxia. Gait/station: Normal DATA REVIEWED Actual films/image/tracing reviewed and summarized as follows: n/a Old records reviewed and summarized as follows: Reviewed external hospital records: - MRI Brain 05/30/22 normal - MRA H/N 05/30/22 no significant stenosis - TTE 05/30/22 EF 60%, normal LA size - Optho eval Dr. Melara left BRAO Local records reviewed including cardiology / vascular notes A1c 5.4, LDL 38 Assessment/Plan Assessment & Plan: Marie Hutson is a 72 year old left-handed male with a history of former smoking, HTN, HLD, DM with neuropathy, PAD, and CAD who presents for evaluation of left BRAO. His examination demonstrates decreased vision left eye, decreased achilles reflexes, and decreased sensation in feet. We discussed his presentation. He had a left BRAO, a stroke equivalent. He has had full workup without obvious source other than his small vessel risk factors, which are currently under good control.Encouraged him to maintain this control to prevent future stroke. He is on aspirin and plavix for multiple indications - from a stroke perspective, now 4 months post-stroke, he only needs to be on sin gle antiplatelet, either aspirin or plavix being fine. If for his other conditions he needs to be on dual that is also fine, but doesn't need to stay on dual from a neuro perspective. Offered low vision OT but he doesn't feel impaired to need to do it. He should return to see me in 6 months then probably PRN. Trevor Robison MD [facility] documented in this encounterKing[facility] [place]11-28-2022 Instructions* Patient Instructions* Kathie Garcia, MUSEUM CURATOR.BUSINESS ENTERPRISE OFFICER - 09/24/2022 2:58 PM EST FACT SHEET FOR PATIENTS, PARENTS, AND CAREGIVERS EMERGENCY USE AUTHORIZATION (EUA) OF PAXLOVID FOR CORONAVIRUS DISEASE 2019 (COVID-19) You are being given this Fact Sheet because your healthcare provider believes it is necessary to provide you with PAXLOVID for the treatment of exwi-do-ujdtwvte coronavirus disease (COVID-19) caused by the SARS-CoV-2 virus. This Fact Sheet contains information to help you understand the risks and benefits of taking the PAXLOVID you have received or may receive. The U.S. Food and Drug Administration (FDA) has issued an Emergency Use Authorization (EUA) to makePAXLOVID available during the COVID-19 pandemic (for more details about an EUA please see What is an Emergency Use Authorization? at the end of this document). PAXLOVID is not an FDA-approved medicine in the [place]. Read this Fact Sheet for information about PAXLOVID. Talk to your healthcareprovider about your options or if you have any questions. It is your choice to take PAXLOVID. What is COVID-19? COVID-19 is caused by a virus called a coronavirus. You can get COVID-19 through close contact withanother person who has the virus. COVID-19 illnesses have ranged from very jtdp-wg-ciiwjt, including illness resulting in . While information so far suggests that most COVID-19 illness is mild, serious illness can happen and maycause some of your other medical conditions to become worse. Older people and people of all ages with severe, long lasting (chronic) medical conditions like heart disease, lung disease, and diabetes,for example seem to be at higher risk of being hospitalized for COVID-19. What is PAXLOVID? PAXLOVID is an investigational medicine used to treat bnwl-vo-zsmarlei COVID-19 in adults and children [12 years of age and older weighing at least 88 pounds (40 kg)] with positive results of direct SARS-CoV-2 viral testing, and who are at high risk for progression to severe COVID-19, including hospitalization or . PAXLOVID is investigational because it is still being studied. There is limited information about the safety and effectiveness of using PAXLOVID to treat people with xvlo-zo-auusgqom COVID-19. The FDA has authorized the emergency use of PAXLOVID for the treatment of qpoo-lg-qtipsmzf COVID-19in adults and children [12 years of age and older weighing at least 88 pounds (40 kg)] with a positive test for the virus that causes COVID-19, and who are at high risk for progression to severe COVID-19, including hospitalization or , under an EUA. 1 Revised: 12 January 2022 What should I tell my healthcare provider before I take PAXLOVID? Tell your healthcare provider if you: Have any allergies Have liver or kidney disease Are or plan to become Are a child Have any serious illnesses Tell your healthcare provider about all the medicines you take, including prescription and wxfy-jrb-yyhylqr medicines, vitamins, and herbal supplements. Some medicines may interact with PAXLOVID and may cause serious side effects. Keep a list of your medicines to show your healthcare provider and pharmacist when you get a new medicine. You can ask your healthcare provider or pharmacist for a list of medicines that interact with PAXLOVID. Do not start taking a new medicine without telling your healthcare provider. Your healthcare provider can tell you if it is safe to take PAXLOVID with other medicines. Tell your healthcare provider if you are taking combined hormonal contraceptive. PAXLOVID may affect how your control pills work. Females who are able to become should use another effective alternative form of contraception or an additional barrier method of contraception. Talk to your healthcare provider if you have any questions about contraceptive methods thatmight be right for you. How do I take PAXLOVID? PAXLOVID consists of 2 medicines: nirmatrelvir and ritonavir. Take 2 pink tablets of nirmatrelvir with 1 white tablet of ritonavir by mouth 2 times each day (in the morning and in the evening) for 5 days. For each dose, take all 3 tablets at the same time. If you have kidney disease, talk to your healthcare provider. You may need a different dose. Swallow the tablets whole. Do not chew, break, or crush the tablets. Take PAXLOVID with or without food. Do not stop taking PAXLOVID without talking to your healthcare provider, even if you feel better. If you miss a dose of PAXLOVID within 8 hours of the time it is usually taken, take it as soon as you remember. If you miss a dose by more than 8 hours, skip the missed dose and take the next dose atyour regular time. Do not take 2 doses of PAXLOVID at the same time. If you take too much PAXLOVID, call your healthcare provider or go to the nearest hospital emergency room right away. If you are taking a ritonavir-or cobicistat-containing medicine to treat hepatitis C or Human Immunodeficiency Virus (HIV), you should continue to take your medicine as prescribed by your healthcare provider. Talk to your healthcare provider if you do not feel better or if you feel worse after 5 days. Who should generally not take PAXLOVID? Do not take PAXLOVID if: You are allergic to nirmatrelvir, ritonavir, or any of the ingredients in PAXLOVID You are taking any of the following medicines: Alfuzosin Pethidine, propoxyphene Ranolazine Amiodarone, dronedarone, flecainide, propafenone, quinidine Colchicine Lurasidone, pimozide, clozapine Dihydroergotamine, ergotamine, methylergonovine Lovastatin, simvastatin Sildenafil (Revatio ) for pulmonary arterial hypertension (PAH) Triazolam, oral midazolam Apalutamide Carbamazepine, phenobarbital, phenytoin Rifampin [place] s Wort (hypericum perforatum) Taking PAXLOVID with these medicines may cause serious or life-threatening side effects or affect how PAXLOVID works. These are not the only medicines that may cause serious side effects if taken with PAXLOVID. PAXLOVID may increase or decrease the levels of multiple other medicines. It is very important to tell your healthcare provider about all of the medicines you are taking because additional laboratory tests or changes in the dose of your other medicines may be necessary while you are taking PAXLOVID. Your healthcare provider may also tell you about specific symptoms to watch out for that may indicate that you need to stop or decrease the dose of some of your other medicines. What are the important possible side effects of PAXLOVID? Possible side effects of PAXLOVID are: Allergic Reactions. Allergic reactions can happen in people taking PAXLOVID, even after only 1 dose. Stop taking PAXLOVID and call your healthcare provider right away if you get any of the following symptoms of an allergic reaction: hives trouble swallowing or breathing swelling of the mouth, lips, or face throat tightness hoarseness skin rash Liver Problems. Tell your healthcare provider right away if you have any of these signs and symptoms of liver problems: loss of appetite, yellowing of your skin and the whites of eyes (jaundice), dark-colored urine, pale colored stools and itchy skin, stomach area (abdominal) pain. Resistance to HIV Medicines. If you have untreated HIV infection, PAXLOVID may lead to some HIV medicines not working as well in the future. Other possible side effects include: altered sense of taste diarrhea high blood pressure muscle aches These are not all the possible side effects of PAXLOVID. Not many people have taken PAXLOVID. Serious and unexpected side effects may happen. PAXLOVID is still being studied, so it is possible that all of the risks are not known at this time. What other treatment choices are there? Veklury (remdesivir) is FDA-approved for the treatment of kuwv-ct-lydfjxgt COVID-19 in certain adults and children. Talk with your doctor to see if Veklury is appropriate for you. Like PAXLOVID, FDA may also allow for the emergency use of other medicines to treat people with COVID-19. Go to https://www.fda.gov/yuactevyd-udcmihtoezbo-hezheqhmydc/hrj-syncf-ubwbytsmyi-and- policy-framework/jchxinnyh-bgh-lsubqpelgwtqe for information on the emergency use of other medicines that are authorized by FDA to treat people with COVID-19. Your healthcare provider may talk with you aboutclinical trials for which you may be eligible. It is your choice to be treated or not to be treated with PAXLOVID. Should you decide not to receive it or for your child not to receive it, it will not change your standard medical care. What if I am or ? There is snowboard instructor treating women or mothers with PAXLOVID. For a motherand unborn baby, the benefit of taking PAXLOVID may be greater than the risk from the treatment. Ifyou are , discuss your options and specific situation with your healthcare provider. It is recommended that you use effective barrier contraception or do not have sexual activity whiletaking PAXLOVID. If you are , discuss your options and specific situation with your healthcare provider. How do I report side effects with PAXLOVID? Contact your healthcare provider if you have any side effects that bother you or do not go away. Report side effects to FDA [place] at www.fda.gov/medwatch or call 7-688-JEX5086 or you can reportside effects to [facility] at the contact information provided below. Website Fax number Telephone number [employer] How should I store PAXLOVID? Store PAXLOVID tablets at room temperature, between 68?F to 77?F (20?C to 25?C). How can I learn more about COVID-19? Ask your healthcare provider. Visit https://www.cdc.gov/COVID19. Contact your local or state public health department. What is an Emergency Use Authorization (EUA)? The [place] FDA has made PAXLOVID available under an emergency access mechanism called an Emergency Use Authorization (EUA). The EUA is supported by a [place] of Health and Human Service (HHS) declaration that circumstances exist to justify the emergency use of drugs and biological productsduring the COVID-19 pandemic. PAXLOVID for the treatment of shxv-kl-qwwpwlxd COVID-19 in adults and children [12 years of age andolder weighing at least 88 pounds (40 kg)] with positive results of direct SARS-CoV-2 viral testing, and who are at high risk for progression to severe COVID-19, including hospitalization or , has not undergone the same type of review as an FDA-approved product. In issuing an EUA under the COVID-19 public health emergency, the FDA has determined, among other things, that based on the total amount of scientific evidence available including data from adequate and well-controlled clinical trials, if available, it is reasonable to believe that the product may be effective for diagnosing, treating, or preventing COVID-19, or a serious or life-threatening disease or condition caused by COVID-19; that the known and potential benefits of the product, when used to diagnose, treat, or prevent such disease or condition, outweigh the known and potential risks of such product; and that there are no adequate, approved, and available alternatives. All of these criteria must be met to allow for the product to be used in the treatment of patients during the COVID-19 pandemic. The EUA for PAXLOVID is in effect for the duration of the COVID-19 declaration justifying emergency use of this product, unless terminated or revoked (after which the products may no longer be used under the EUA). Additional Information For general questions, visit the website or call the telephone number provided below. Website Telephone number [employer] (4-744-X70-MMDJ) You can also go to www.[employer] or call for more information. Pfizer Distributed by [employer] Division of [facility] [place] [place] [address] [id number] Revised: 12 January 2022 documented in this [facility] [place] History of Present illness Narrative* Kathie Garcia APRN.CNS - 09/24/2022 2:40 PM EST Telemedicine Evaluation for COVID-19 Infection MyChart video visit did not work. Phone was used for evaluation of this patient. Location of patient: [place] PCP: Sher Jules MD SUBJECTIVE Marie Hutson is a 72 year old male who presents with 2 days of symptoms that are stable. Positive test at home today. Notes mild symptoms. Notes exposed to positive person. Notified Saturday by person. Symptoms include: Fever (?100.4F): No or Chills: No Cough: Yes, minimal productive Shortness of breath: No Difficulty breathing: No Fatigue: Yes Muscle aches: Yes Headache: Yes New loss of smell or taste: No Sore throat: No Nasal congestion: Yes or Rhinorrhea: Yes Nausea: No or Vomiting: No Diarrhea: No OTC meds/remedies that patient has tried: acetaminophen. High risk category assessment 72 yo, DM, HTN, CAD s/p CABG, obesity Age > 60 years old Diabetes Hypertension Coronary artery disease Exposures: Sick contacts? Yes Family or close contacts with confirmed/probable COVID-19 in last 14 days? Yes He reports that he quit smoking about 19 years ago. His smoking use included cigarettes. He has a 34.00 pack-year smoking history. He has never used smokeless tobacco. Creatinine Date Value Ref Range Status 03/19/2022 0.70 (L) 0.73 - 1.22 mg/dL Final 05/23/2021 0.86 0.73 - 1.22 mg/dL Final 11/21/2020 0.83 0.73 - 1.22 mg/dL Final 10/07/2020 0.77 0.73 - 1.22 mg/dL Final OBJECTIVE VIDEO EXAM (if available) Self-reported heart rate: 80bpm Self-reported pulse oximetry: no Self-reported blood pressure: 115/55 GENERAL: Alert, oriented, answering questions appropriately in full sentences PULMONARY: breathing comfortably on room air , no coughing noted, and no wheezing noted ASSESSMENT/PLAN No diagnosis found. - Discussed symptom monitoring and supportive care - Red flag symptoms requiring follow up discussed Nirmatrelvir/Ritonavir (Paxlovid) Eligibility and Patient Discussion [facility] [place] Formulary Restriction Criteria: Adult outpatients 18 years and older with ALL of the following: [x] Patient has positive SARS-COV-2 viral test (PCR or antigen test) during current illness [x] Patient has symptoms for 5 days or less [x] Not requiring hospitalization at any time for management of COVID-19 [x] Not requiring supplemental oxygen or a change in baseline supplemental oxygen [x] Not utilized for pre-exposure or post-exposure prophylaxis for prevention of COVID-19 [x] Patient does not have severe renal impairment (eGFR < 30 mL/min) or severe hepatic impairment (Child-Tam[place]o Class C) [x] Meeting at least one of the criteria for high risk of progression to severe COVID-19: [x] Age over 65 years [] Cancer [] Chronic kidney disease [] Chronic liver disease [] Chronic lung diseases, including cystic fibrosis [] Dementia or other neurological conditions [] Diabetes (type 1 or type 2) [] Disabilities, including Down syndrome and neurodevelopmental disorders [] Heart conditions [] HIV infection [] Immunocompromised state [] Mental health conditions [] Medical related technological dependence (tracheostomy, gastrostomy, or positive pressure ventilation (not related to COVID) [] Overweight and obesity (BMI greater or equal to 25 for adults) [] Physical inactivity [] [] Sickle cell disease or thalassemia [] Smoking, current or former [] Solid organ or blood stem cell transplant [] Stroke or cerebrovascular disease [] Substance use disorders [] Tuberculosis [] People from racial and ethnic minority groups Criteria above are met: Yes Date of Positive Test:09/24/2022 Date of Symptom Onset: 09/22/2022 Patient received COVID vaccine: Yes Drug-Drug interactions reviewed: Yes. Drug interactions were identified and the following actions were taken Hold atorvastatin while taking paxlovid, then resume taking when paxlovid completed. I have discussed the use of the investigational therapeutic, nirmatrelvir/ritonavir, for the treatment of mild to moderate COVID-19 and its use under Emergency Use Authorization with the patient. The patient was informed that nirmatrelvir/ritonavir is not an FDA approved drug and that it is authorized for use under this Emergency Use Authorization. The patient was also informed of the significant known benefits and potential risks of nirmatrelvir/ritonavir, and the extent to which such potential risks and benefits are unknown. The patient was informed that there is mandatory reporting of all medication errors and serious adverse events potentially related to nirmatrelvir/ritonavir treatment within 7 calendar days from the onset of the event and that events up to 28 days after completion of therapy need to be reported. The discussion included alternatives to receiving nirmatrelvir/rit onavir, including clinical trials, and potential the risks and benefits of those alternatives. The patient was provided electronically with the Fact Sheet for Patients, Parents and Caregivers. The patient was also instructed that in addition to the treatment with nirmatrelvir/ritonavir, he/she should continue to self-isolate and use infection control measures (e.g., wear mask, isolate, social distance, avoid sharing personal items, clean and disinfect high touch surfaces, and frequent h andwashing) according to CDC guidelines. The patient stated understanding and gave verbal consent to proceeding with nirmatrelvir/ritonavir treatment. Kathie Garcia APRN.CNS September 24, 2022 2:52 PM This patient encounter involved the screening or treatment of novel coronavirus infection (COVID-19). 20 min in visit documented in this encounterKing[facility] [place] History of Present illness Narrative* Gomez Schwab - 09/11/2022 9:45 AM EST Last saw Barb Older: 07/18/22 Subjective: Patient presents to clinic c/o painful toenails. They state that the nails are especially painful with shoe gear and pressure. Patient states that nails b/l hallux are painful. Patient admits to being diabetic. No other pedal complaints at this time. Patient states no change in medications or medical history since last visit. Objective: Patient presents to clinic ambulating in cross training shoes Vasc: DP and PT pulses are nonpalpable bilateral. CFT is less than 5 seconds bilateral. Skin temperature is warm to cool proximal to distal bilateral. There is mild edema or varicosities noted. Neuro: Protective sensation is absent to the foot and toes when tested with the 5.07 SWM bilateral.Vibratory sensation is absent at the hallux IPJ bilateral. The hallux is downgoing bilateral. Derm: Nails 1-5 b/l are painful, discolored-yellow, thick, crumbly, dystrophic and with subungal debris. Right hallux is ingrowing without ifnection. Skin is of normal turgor, texture and hair growthis absent bilateral. There are no hyperkeratosis, ulcerations, scars, verruca or other lesions noted. Ortho: Muscle strength is 5/5 for all pedal groups tested. Ankle joint DF is decreased with the knee extended with no pain or crepitus noted. 1st MPJ ROM is full bilateral. Assessment: (B35.1) Onychomycosis (primary encounter diagnosis) (M79.675) Pain in toe of left foot (M79.674) Pain in toe of right foot (E11.49) Well controlled type 2 diabetes mellitus with neurological manifestations (HCC) (I73.9) PAD (peripheral artery disease) ([facility]) Plan: Patient was seen and evaluated. Nails 1-5 bilateral were debrided in length and thickness. Ingrown is noted to right hallux withoutinfection. This was debrided. Discussed matrixectomy but with concern for underlying pad, will treat conservatively. Patient was instructed on the continued importance of diabetic foot care along with proper diet andkeeping their blood sugar under control to prevent complications. Patient is to RTC in 3-4 months. Gomez Schwab DPM * Cheryle Merritt LPN - 09/11/2022 9:29 AM EST AMB ROOMING INTAKE FLOWSHEET DATA Risk Screening Do you have concerns about personal safety or safety in the home?: No Patient presents with: Right Foot - Established Patient, Follow Up, Diabetic Foot Care Left Foot - Established Patient, Follow Up, Diabetic Foot Care Cheryle Merritt LPN documented in this encounterKing[facility] [place]15-[facility] Instructions* Patient Instructions* Gomez Schwab - 09/11/2022 9:45 AM EST Diabetes Foot Care Instructions When you have diabetes, proper foot care is very important. Poor foot care may lead to amputation of a foot or leg. As a person with diabetes, you are more vulnerable to foot problems, because diabetes can damage your nerves and reduce blood flow to your feet. Here are some diabetes foot care tips to follow: Wash and Dry Your Feet Daily Use mild soaps Use warm water Pat your skin dry; do not rub. Thoroughly dry your feet. After washing, use lotion on your feet to prevent cracking. Do not put lotion between your toes. Examine Your Feet Each Day Check the tops and bottoms of your feet. Have someone else look at your feet if you cannot see them. Check for dry, cracked skin. Look for blisters, cuts, scratches, or other sores. Check for redness, increased warmth, or tenderness when touching any area of your feet. Check for ingrown toenails, corns, and calluses. If you get a blister or sore from your shoes, do not pop it. Apply a bandage and wear a differentpair of shoes. Take Care of Your Toenails Cut toenails after bathing, when they are soft. Cut toenails straight across and smooth with a nail file. Avoid cutting into the corners of toes. Do not cut cuticles. If you have neuropathy (or decreased sensation in your feet) a briar cutter should always cut your toenails. Be Careful When Exercising Walk and exercise in comfortable shoes. Do not exercise when you have open sores on your feet. Protect Your Feet With Shoes and Socks Never go barefoot. Always protect your feet by wearing shoes or hard-soled slippers or footwear. Avoid shoes with high heels and pointed toes. Avoid shoes that expose your toes or heels (such as open-toed shoes or sandals). These types of shoes increase your risk for injury and potential infections. Try on new footwear with the type of socks you usually wear. Do not wear new shoes for more than an hour at a time. Change your socks daily. Look and feel inside your shoes before putting them on to make sure there are no foreign objects orrough areas. Avoid tight socks. Wear natural-fiber socks (cotton, wool, or a cotton-wool blend). Wear special shoes if your health care provider recommends them. Wear shoes/boots that will protect your feet from various weather conditions (cold, moisture, etc.). Make sure your shoes fit properly. If you have neuropathy (nerve damage), you may not notice that your shoes are too tight. Perform the footwear test described below. Footwear Test Use this simple test to see if your shoes fit correctly: Stand on a piece of paper. (Make sure you are standing and not sitting, because your foot changes shape when you stand.) Trace the outline of your foot. Trace the outline of your shoe. Compare the tracings: Is the shoe too narrow? Is your foot crammed into the shoe? The shoe should be at least 1/2 inch longer than your longest toe and as wide as your foot. Proper Shoe Choices The following types of shoes are best for people with diabetes Closed toes and heels Leather uppers without a seam inside At least 1/2 inch extra space at the end of your longest toe Inside of shoe should be soft with no rough areas Outer sole should be made of stiff material Shoes should be at least as wide as your feet Tips for Foot Care in Diabetes Don't wait to treat a minor foot problem if you have diabetes. Follow your health care provider's guidelines and first aid guidelines. Report foot injuries and infections to your health care provider immediately. Check water temperature with your elbow, not your foot. Do not use a heating pad on your feet. Do not cross your legs. Do not self-treat your corns, calluses, or other foot problems. Go to your health care provider or briar cutter to treat these conditions. documented in this encounterKing[facility] [place] History of Present illness Narrative* Jules Dukes MD - 09/05/2022 3:37 PM EST Cardiology consultation at the request of Dr Jules. A copy of this consultation note will be provided to the requesting physician by way of shared Medical record or letter to requesting physicianvia US mail. Chief Complaint: Patient presents with: Consult History of Present Illness: Marie Hutson is a 72 year old male with history of CAD s/p three-vessel CABG, PAD s/p stents in both lower extremity arteries, uncontrolled hypertension, obesity, diabetes, former smoker was referred by his primary care physician for management of his cardiac issues and blood pressure. Patient was at the [place] emergency room on May 30 for vision disturbance in his left eye and was diagnosedwith CRAO. Patient has not seen a neurologist since hospital discharge and the power house control room operator did not make any definitive recommendations regarding anticoagulation. He denies chest pain, shortness of breath, orthopnea, cough, edema, palpitations, PND, lightheadedness or syncope. PAST MEDICAL HISTORY Diagnosis Date Atherosclerosis of hoh arteries of the extremities with intermittent claudication 09/07/2010 BENIGN NEOPLASM LG BOWEL 07/29/2008 Tubular adenoma. BPH without obstruction/lower urinary tract symptoms 12/29/2007 Coronary artery disease Dermatophytosis of nail 12/29/2007 Diabetic peripheral neuropathy (HCC) 05/17/2014 DVT of leg (deep venous thrombosis) (HCC) 11/16/2013 post-op CABG, rx with Xarelto Hypertrophy of prostate without urinary obstruction and other lower urinary tract symptoms (LUTS) 12/29/2007 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/29/2007 Non-ST elevation myocardial infarction (NSTEMI) 10/17/2013 Nonspecific abnormal results of liver function study 04/29/2008 Obesity, unspecified 12/29/2007 Other and unspecified hyperlipidemia PAD (peripheral artery disease) (HCC) 08/05/2009 Personal history of other malignant neoplasm of skin 11/05/2010 skin cancer Postoperative anemia 10/25/2013 Transfused on 10/25 1 U PRBC. H&H 9.2/26.3. DC on diuretic taper for dilutional component and MVI with iron and repeat as outpt Primary osteoarthritis of left knee 02/21/2018 [facility]. Type II or unspecified type diabetes mellitus without mention of complication, not stated as uncontrolled 12/29/2007 Unspecified essential hypertension PAST SURGICAL HISTORY Procedure Laterality Date ANGIOPLASTY FEMORAL/POP right BALLN ANGIOPLASTY PERC,FEM-POP 11-17-09 APLL WITH SILVERHAWK AND ANGIOPLASTY COLONOSCOPY FLX DX W/COLLJ SPEC WHEN PFRMD 2007 Colonoscopy COLONOSCOPY FLX DX W/COLLJ SPEC WHEN PFRMD 09/14/13 Colonoscopy COLONOSCOPY FLX DX W/COLLJ SPEC WHEN PFRMD 12/02/2018 Colonoscopy CORONARY ARTERY BYP W/VEIN & ARTERY GRAFT 3 VEIN 10/20/2013 CABG, three grafts F ENDARTERECTOMY FEMORAL PROFUNDA Bilateral 05/24/2016 fem. endarterectomy, profundaplasty LEFT HEART CATH,PERCUTANEOUS 10/19/2013 Cardiac cath, L heart PRIM PRQ TRLUML MCHNL THRMBC N-COR N-ICRA 1ST 12-05-2009 left REVSC OPN/PRQ ILIAC ART W/STNT PLMT & ANGIOPLSTY Left 04/19/16 with 9x29mm satish stenting SLCTV CATHJ EA 2ND+ ORD ABDL PEL/LXTR ART BRNCH 11-17-09 LLE UNSPECIFIED ORAL SURGERY PROCEDURE, BY REPORT wisdom teeth removed FAMILY HISTORY Problem Relation Age of Onset Cancer Mother lymphoma, passed Heart Father 46 Stroke Father passed from this Cancer Maternal Grandfather unsure of the type Heart Paternal Grandfather GI Brother inflammatory bowel disease, crohn's Social History Tobacco Use Smoking status: Former Packs/day: 1.00 Years: 34.00 Pack years: 34.00 Types: Cigarettes Quit date: 10/28/2002 Years since quittin.8 Smokeless tobacco: Never Vaping Use Vaping Use: Never used Substance Use Topics Alcohol use: Yes Alcohol/week: 42.0 standard drinks Types: 42 Cans of Beer (12oz) per week Comment: 6 beers per day, sometimes less Drug use: Yes Frequency: 2.0 times per week Comment: marijuana Current Outpatient Medications Medication Sig cloNIDine HCl (CATAPRES) 0.2 mg tablet Take 1 tablet by mouth twice daily. hydrALAZINE (APRESOLINE) 100 mg tablet Take 1 tablet by mouth three times daily. gabapentin (NEURONTIN) 300 mg capsule Take 1 capsule by mouth daily at bedtime for 180 days. clopidogrel (PLAVIX) 75 mg tablet Take 1 tablet by mouth once daily. atorvastatin (LIPITOR) 40 mg tablet Take 1 tablet by mouth once daily. For cholesterol amLODIPine (NORVASC) 10 mg tablet Take 1 tablet by mouth once daily. metFORMIN (GLUCOPHAGE) 500 mg tablet Take 1 tablet by mouth daily with breakfast. metoprolol succinate ER (TOPROL XL) 100 mg Take 1 tablet by mouth once daily. Quinapril HCl 40 mg tablet Take 1 tablet by mouth twice daily. cilostazol (PLETAL) 100 mg tablet Take 1 tablet by mouth twice daily. [facility]iscellaneous Medical Supply (COMPRESSION STOCKINGS[place] [facility] [place] KNEE HI 20-30 WT M79.89 aspirin 81 mg chewable tablet Take 2 tablets by mouth once daily. therapeutic multivitamin tablet Take 1 tablet by mouth daily with breakfast. blood sugar diagnostic (ONE TOUCH ULTRA TEST) test strip Use as instructed blood sugar diagnostic (ONE TOUCH ULTRA TEST) test strip TEST BLOOD SUGARS ONCE DAILY lancets(ONE TOUCH ULTRASOFT LANCETS) Test blood sugar once daily. No current facility-administered medications for this visit. ALLERGIES No Known Allergies Review of Systems: General: No weight loss, malaise, fevers, chills, or night sweats HEENT: Negative for epistaxis Neck: Negative for pain and significant neck swelling Respiratory: Negative for cough, shortness of breath at rest or on exertion, wheezing Cardiac: Negative history of chest pain on exertion, dyspnea on exertion, orthopnea, paroxysmal nocturnal dyspnea, lower extremity edema, presyncope, syncope, or palpitations Gastrointestinal: Negative history of abdominal pain, nausea, vomiting, constipation, diarrhea, melena, or hematochezia Urinary: Negative history of dysuria, hematuria, or frequency Peripheral vascular: No claudication Musculoskeletal: Negative for joint aches/pain, neck pain, or back pain Neurologic: Negative history of dizziness/lightheadedness, vertigo, numbness/tingling of hands or feet Hematologic: Negative for easy bruising or easy bleeding. Endocrine: Negative history of obesity Skin: Negative history of rash and itching Other: The rest of the review of systems is unremarkable and negative or non-contributory Physical Examination: BP 186/74 Pulse 66 Resp 16 Ht 177.8 cm (5' 10) Wt 106.1 kg (234 lb) SpO2 96% BMI 33.58kg/m BMI 33.58 kg/(m^2) General appearance: Well appearing, alert, appears to be in no acute distress, cooperative Head: Normocephalic, atraumatic HEENT: Extraocular movements intact; mucous membranes moist; no JVD Lungs: Breath sounds equal. Clear to auscultation bilaterally, no rales, rhonchi, or wheezes Heart: RRR; normal S1/S2; no murmurs/gallops/rubs Abdomen: Abdomen soft, non-distended, non-tender. NABS Extremities: No cyanosis, clubbing or edema Skin: No rashes noted Neurologic: Grossly nonfocal Psych: Normal mood/affect Cardiac Testing and Procedures: Electrocardiogram: 09/05/2022: Normal sinus rhythm at 60 bpm. Normal EKG. Echocardiogram: 05/30/2022: EF 60%. Grade 1 diastolic dysfunction. CABG 10/20/2013: WRIGHT to LAD, SVG to PDA and OM I have personally reviewed the Electrocardiogram. ASSESSMENT/PLAN: 1. Essential hypertension - ICD9: 401.9, ICD10: I10 - poor control - Continue current medication(s) - Begin Coreg 12.5 mg twice a day. Discontinue Toprol-XL. If blood pressures remain uncontrolled atnext visit to increase Coreg dose further to 25 mg twice a day. - Recommended regular aerobic exercise. - Recommend home blood pressure monitoring, to bring results in on next visit - Goal of BP <130/80 2. CAD S/P CABG x 3 - ICD9: V45.81, ICD10: Z95.1 Patient denies any anginal symptoms. To continue aspirin beta-blockers, calcium channel blockers and high intensity statins. LDL is below goal. No indication from a cardiac standpoint for patient to continue Plavix. 3. PAD with bilateral lower extremity stents H/o L superficial femoral/popliteal/posterior tibial artery artherectomy and angioplasty 07/2010 and R femoral artery arterectomy and angioplasty, right popliteal angioplasty. Patient is on dual antiplatelet agents and statins. I have asked him to inquire with the vascular surgeon who he is going to see later this month about continuing Plavix. 4. CRAO Unclear if patient had a stroke in addition to this diagnosis or only this diagnosis. I have referred him to our neurologist here at the [place] office for further evaluation and management recommendations for this condition. Jules Dukes MD documented in this encounterKing'S [facility] [place] History of Present illness Narrative* Barb Leon, MUSEUM CURATOR.SLOT SUPERVISOR - 07/18/2022 9:25 AM EDT CC Patient presents with: Follow Up HPI Marie Hutson is a 72 year old male who presents to the office for blood pressure. His visit todayis for follow-up. Patient was last seen for this approximately 1 month ago. Medication changes: Yes Doxazosin discontinued, started on Clonidine 0.2 mg twice a day Taking all medications as prescribed: Yes Side effects: Yes dry mouth, constipation has resolved Home BP's: Yes fluctuating, 120's/60's to 150's/70's Denies: headache, chest pain, palpitations, dyspnea, and peripheral edema. Last 4 Encounter BP Readings: Date: BP: 07/18/2022 160/66 06/28/2022 143/67[BP Mitch average[ 06/11/2022 172/68 03/27/2022 142/58 Last 3 Encounter Wt Readings: Date: Wt: 07/18/2022 103.9 kg (229 lb) 06/11/2022 105.1 kg (231 lb 12.8 oz) 03/27/2022 105.2 kg (232 lb) REVIEW OF SYSTEMS See HPI PAST MEDICAL HISTORY Diagnosis Date Atherosclerosis of hoh arteries of the extremities with intermittent claudication 09/07/2010 BENIGN NEOPLASM LG BOWEL 07/29/2008 Tubular adenoma. BPH without obstruction/lower urinary tract symptoms 12/29/2007 Coronary artery disease Dermatophytosis of nail 12/29/2007 Diabetic peripheral neuropathy (HCC) 05/17/2014 DVT of leg (deep venous thrombosis) (HCC) 11/16/2013 post-op CABG, rx with Xarelto Hypertrophy of prostate without urinary obstruction and other lower urinary tract symptoms (LUTS) 12/29/2007 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/29/2007 Non-ST elevation myocardial infarction (NSTEMI) 10/17/2013 Nonspecific abnormal results of liver function study 04/29/2008 Obesity, unspecified 12/29/2007 Other and unspecified hyperlipidemia PAD (peripheral artery disease) (HCC) 08/05/2009 Personal history of other malignant neoplasm of skin 11/05/2010 skin cancer Postoperative anemia 10/25/2013 Transfused on 10/25 1 U PRBC. H&H 9.2/26.3. DC on diuretic taper for dilutional component and MVI with iron and repeat as outpt Primary osteoarthritis of left knee 02/21/2018 [facility]. Type II or unspecified type diabetes mellitus without mention of complication, not stated as uncontrolled 12/29/2007 Unspecified essential hypertension PAST SURGICAL HISTORY Procedure Laterality Date ANGIOPLASTY FEMORAL/POP right BALLN ANGIOPLASTY PERC,FEM-POP 11-17-09 APLL WITH SILVERHAWK AND ANGIOPLASTY COLONOSCOPY FLX DX W/COLLJ SPEC WHEN PFRMD 2007 Colonoscopy COLONOSCOPY FLX DX W/COLLJ SPEC WHEN PFRMD 09/14/13 Colonoscopy COLONOSCOPY FLX DX W/COLLJ SPEC WHEN PFRMD 12/02/2018 Colonoscopy CORONARY ARTERY BYP W/VEIN & ARTERY GRAFT 3 VEIN 10/20/2013 CABG, three grafts F ENDARTERECTOMY FEMORAL PROFUNDA Bilateral 05/24/2016 fem. endarterectomy, profundaplasty LEFT HEART CATH,PERCUTANEOUS 10/19/2013 Cardiac cath, L heart PRIM PRQ TRLUML MCHNL THRMBC N-COR N-ICRA 1ST 12-05-2009 left REVSC OPN/PRQ ILIAC ART W/STNT PLMT & ANGIOPLSTY Left 04/19/16 with 9x29mm satish stenting SLCTV CATHJ EA 2ND+ ORD ABDL PEL/LXTR ART BRNCH 11-17-09 LLE UNSPECIFIED ORAL SURGERY PROCEDURE, BY REPORT wisdom teeth removed ALLERGIES Patient has no known allergies. MEDICATIONS hydrALAZINE (APRESOLINE) 100 mg tablet Take 1 tablet by mouth three times daily. gabapentin (NEURONTIN) 300 mg capsule Take 1 capsule by mouth daily at bedtime for 180 days. cloNIDine HCl (CATAPRES) 0.2 mg tablet Take 1 tablet by mouth twice daily. clopidogrel (PLAVIX) 75 mg tablet Take 1 tablet by mouth once daily. atorvastatin (LIPITOR) 40 mg tablet Take 1 tablet by mouth once daily. For cholesterol amLODIPine (NORVASC) 10 mg tablet Take 1 tablet by mouth once daily. metFORMIN (GLUCOPHAGE) 500 mg tablet Take 1 tablet by mouth daily with breakfast. metoprolol succinate ER (TOPROL XL) 100 mg Take 1 tablet by mouth once daily. Quinapril HCl 40 mg tablet Take 1 tablet by mouth twice daily. cilostazol (PLETAL) 100 mg tablet Take 1 tablet by mouth twice daily. [facility]OCK[facility] [place]INGS KNEE HI 20-30 WT M79.89 aspirin 81 mg chewable tablet Take 2 tablets by mouth once daily. blood sugar diagnostic (ONE TOUCH ULTRA TEST) test strip Use as instructed blood sugar diagnostic (ONE TOUCH ULTRA TEST) test strip TEST BLOOD SUGARS ONCE DAILY lancets(ONE TOUCH ULTRASOFT LANCETS) Test blood sugar once daily. therapeutic multivitamin tablet Take 1 tablet by mouth daily with breakfast. FAMILY HISTORY Problem Relation Age of Onset Cancer Mother lymphoma, passed Heart Father 46 Stroke Father passed from this Cancer Maternal Grandfather unsure of the type Heart Paternal Grandfather GI Brother inflammatory bowel disease, crohn's Social History Tobacco Use Smoking status: Former Packs/day: 1.00 Years: 34.00 Pack years: 34.00 Types: Cigarettes Quit date: 10/28/2002 Years since quittin.7 Smokeless tobacco: Never Vaping Use Vaping Use: Never used Substance Use Topics Alcohol use: Yes Alcohol/week: 42.0 standard drinks Types: 42 Cans of Beer (12oz) per week Comment: 6 beers per day, sometimes less Drug use: Yes Frequency: 2.0 times per week Comment: marijuana PHYSICAL EXAM BP 126/70 (BP Site: Left Arm, BP Position: Sitting, BP Cuff Size: Large Adult) Pulse (!) 57 Temp 36.1 C (96.9 F) (Temporal) Wt 103.9 kg (229 lb) BMI 35.11 kg/m General Appearance: well appearing, in no acute distress, alert Lungs: Lungs clear to auscultation. No wheezing, rhonchi, rales. Heart: RRR without murmur, gallop, or rubs. No ectopy DATA REVIEWED: Most recent labs ASSESSMENT/PLAN: 1. Essential hypertension - ICD9: 401.9, ICD10: I10 (primary diagnosis) - good control - Continue current medication(s) - Recommended regular aerobic exercise. - Recommend home blood pressure monitoring, to bring results in on next visit - Goal of BP <130/80 - CLONIDINE HCL 0.2 MG TABLET 2. Need for influenza vaccination - ICD9: V04.81, ICD10: Z23 - INFLUENZA SEASONAL QUADRIVALENT HIGH DOSE AGE 65+ Prescription instructions reviewed with patient as applicable. Potential red flag symptoms discussed with the patient. Reviewed appropriate action plan to take if red flag symptoms occur. Patient agreeable to treatment plan Barb Leon APRN.CNP documented in this encounterKing'S [facility] [place]09-12-2022 Miscellaneous Notes* Telephone Encounter - Anabel Ribera - 07/09/2022 10:52 AM EDT Patient's mail order will not arrive in time. Request temp script. * Telephone Encounter - Anabel Ribera - 07/09/2022 10:52 AM EDT Pharmacy verified in [facility] Patient has been identified by name and date of : Yes Patient aware RX will be sent to pharmacy. No need to notify patient. Patient phones for refill(s): Requested Prescriptions Pending Prescriptions Disp Refills hydrALAZINE (APRESOLINE) 100 mg tablet 42 tablet 0 Sig: Take 1 tablet by mouth three times daily. Date of last office visit : 06/11/2022 Date of next office visit : 07/18/2022 Last 2 Encounter Wt Readings: Date: Wt: 06/11/2022 105.1 kg (231 lb 12.8 oz) 03/27/2022 105.2 kg (232 lb) Please advise. Anabel Nguyen Pss documented in this encounterKing'S [facility] [place]09-01-2022 History of Present illness Narrative* Milady Hernández LPN - 06/28/2022 10:43 AM EDT Manual Readin/65 Pulse: 57 BP Mitch average: 143/67 P: 57 Repeat BP Check: 134/66 P57 #1 144/68 P57 #2 143/71 P56 #3 143/70 P56 #4 149/64 P57 #5 142/64 P56 #6 Reason for blood pressure check - Last BP elevated and Medication adjustment Patient is: Taking medication as prescribed Yes Took medication today Yes If no, date medication last taken N/A Experiencing side effects Yes BP was elevated at last appt 06/11/22. His Doxazosin was d/c and he was started on Clonidine 0.2mg twice daily. Reports that he has been having difficulty with dry mouth and some constipation. Denies any chest pain, shortness of breath, or headaches. Does get some mild random dizziness; does not last long. Rare caffeine use. Past personal history of tobacco use; no current exposure. Alert and oriented. Pt has been identified by name and birthdate: Yes Allergies reviewed: Yes Latex allergy: no. Medication - prescribed and OTC reviewed and updated: Yes Do you need any prescription refills prior to your next visit: No Health Maintenance: Reviewed and not up to date and provider notified Patient advised that he would be contacted after review by PCP. iMlady Hernández LPN documented in this encounterKing'S [facility] [place]08-18-2022 Miscellaneous Notes* Telephone Encounter - Lara Ribera - 06/14/2022 11:48 AM EDT Patient has been identified by name and date of : Yes Requested Prescriptions Pending Prescriptions Disp Refills gabapentin (NEURONTIN) 300 mg capsule 90 capsule 1 Sig: Take 1 capsule by mouth daily at bedtime for 180 days. RX INSTRUCTIONS: Patient aware RX escripted to mail away pharmacy. No need to notify patient. Lara Ribera documented in this encounterKing'S [facility] [place]08-15-2022 Instructions* Patient Instructions* Sher Jules MD - 06/11/2022 7:45 PM EDT DISCONTINUE DOXAZOSIN 8 MG AT BEDTIME. START CLONIDINE TABLET TWICE A DAY. WATCH FOR LOW BLOOD PRESSURE <90 SYSTOLIC OR LOW HEART RATE <40. documented in this encounterKing'S [facility] [place]08-15-2022 History of Present illness Narrative* Sher Jules MD - 06/11/2022 7:26 PM EDT This note was created using [employer] Subjective Marie Hutsno is a 72 year old male. He saw his eye doctor for acute vision disturbance and was diagnosed with retinal artery occlusion. There was concern for ongoing or impending cerebral vascular accident so he was referred to the ER. He was admitted for observation and 05/30/2022 and discharged same day. He had no new symptoms. His blood pressure continued to be resistant. He had no recent cardiology follow up. Review of Systems Constitutional: Negative. Eyes: Positive for visual disturbance. Negative for pain. Respiratory: Negative. Cardiovascular: Negative. Gastrointestinal: Negative. Genitourinary: Negative. Neurological: Negative for dizziness, syncope, light-headedness and headaches. 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) (Hcc) Actinic Skin Damage S/P Cabg X 3 Diabetic Peripheral Neuropathy (Hcc) Primary Osteoarthritis of Left Knee Obesity, Class I, Bmi 30-34.9 Sleep Apnea Mixed Sleep Apnea Current Outpatient Medications Medication Sig clopidogrel (PLAVIX) 75 mg tablet Take 1 tablet by mouth once daily. atorvastatin (LIPITOR) 40 mg tablet Take 1 tablet by mouth once daily. For cholesterol amLODIPine (NORVASC) 10 mg tablet Take 1 tablet by mouth once daily. doxazosin (CARDURA) 8 mg tablet Take 1 tablet by mouth daily at bedtime. gabapentin (NEURONTIN) 300 mg capsule Take 1 capsule by mouth daily at bedtime for 180 days. hydrALAZINE (APRESOLINE) 100 mg tablet Take 1 tablet by mouth three times daily. metFORMIN (GLUCOPHAGE) 500 mg tablet Take 1 tablet by mouth daily with breakfast. metoprolol succinate ER (TOPROL XL) 100 mg Take 1 tablet by mouth once daily. Quinapril HCl 40 mg tablet Take 1 tablet by mouth twice daily. cilostazol (PLETAL) 100 mg tablet Take 1 tablet by mouth twice daily. [facility]iscellaneous Medical Supply (COMPRESSION STOCKINGS) [facility] [place] STOCKINGS KNEE HI 20-30 WT M79.89 aspirin 81 mg chewable tablet Take 2 tablets by mouth once daily. therapeutic multivitamin tablet Take 1 tablet by mouth daily with breakfast. blood sugar diagnostic (ONE TOUCH ULTRA TEST) test strip Use as instructed blood sugar diagnostic (ONE TOUCH ULTRA TEST) test strip TEST BLOOD SUGARS ONCE DAILY lancets(ONE TOUCH ULTRASOFT LANCETS) Test blood sugar once daily. cloNIDine HCl (CATAPRES) 0.2 mg tablet Take 1 tablet by mouth twice daily. No current facility-administered medications for this visit. Objective BP 172/68 (BP Site: Left Arm, BP Position: Sitting, BP Cuff Size: Large Adult) Pulse (!) 57 Temp 36.3 C (97.3 F) (Temporal) Resp 18 Wt 105.1 kg (231 lb 12.8 oz) BMI 35.54 kg/m Physical Exam Constitutional: Appearance: He is not ill-appearing. HENT: Head: Normocephalic. Eyes: Extraocular Movements: Extraocular movements intact. Neck: Vascular: No carotid bruit. Cardiovascular: Rate and Rhythm: Regular rhythm. Bradycardia present. Heart sounds: No murmur heard. No gallop. Pulmonary: Breath sounds: Normal breath sounds. Musculoskeletal: Right lower leg: No edema. Left lower leg: No edema. Neurological: General: No focal deficit present. Mental Status: He is alert. Gait: Gait normal. Brain CT, MRI brain negative. MRA 50% stenosis of internal carotid arteries. Echo EF 60%, no shunt. Assessment and Plan 1. Hyperlipidemia with target LDL less than 70 - ICD9: 272.4, ICD10: E78.5 (primary diagnosis) - good control - Continue current medication. 2. Essential hypertension - ICD9: 401.9, ICD10: I10 - poor control. Shared medical decision making was done. - Continue current medication(s) - Discontinue DOXAZOSIN. - Recommend home blood pressure monitoring, to bring results in on next visit - Reviewed risks of HTN and principles of treatment - CLONIDINE HCL 0.2 MG TABLET. Take one(1) tablet two(2) times daily. Discussed medication dosage, usage, goals of therapy, and side effects. He will monitor his home BP daily. Call for s/s of low BPor low HR. BP true scheduled. If effective, he was interested in transitioning to a CLONIDINE transdermal patch. - CONSULT TO CARDIOLOGY 3. Well controlled type 2 diabetes mellitus with neurological manifestations (HCC) - ICD9: 250.60, ICD10: E11.49 Controlled. - Continue current medications 4. Branch retinal artery occlusion, left - ICD9: 362.32, ICD10: H34.232 Risk factor modification. 5. S/P CABG x 3 - ICD9: V45.81, ICD10: Z95.1 - CONSULT TO CARDIOLOGY Sher Jules MD documented in this encounterKing'S [facility] [place]08-09-2022 Miscellaneous Notes* Telephone Encounter - Lorraine Beebe LPN - 06/05/2022 4:09 PM EDT Message left for pt to return call to arrange hospital follow with pcp. documented in this encounterKing'S [facility] [place]08-02-2022 Miscellaneous Notes* Telephone Encounter - Manda Monroy LPN - 05/29/2022 11:[address] Merritt's office notified with information listed below. Manda Monroy LPN * Telephone Encounter - Sher Jules MD - 05/29/2022 11:19 AM EDT It sounds acute. Send to ER. * Telephone Encounter - Manda Monroy LPN - 05/29/2022 10:[address] Christian Merritt, curer acid drum called in and he has pt at his office now. Pt being seen for blurredvision and has had a stroke in eye. Dr. Gonzales states concerned for risk of other strokes. He is holding pt there till he hears back if you want to see him today or should he send pt to ER. Please advise [phone]. Manda Monroy LPN documented in this encounterKing'S [facility] [place]07-06-2022 History of Present illness Narrative* Gomez Schwab - 05/02/2022 10:01 AM EDT Last saw Barb Older 02/20/22 Subjective: Patient presents to clinic c/o painful toenails. They state that the nails are especially painful with shoe gear and pressure. Patient admits to being diabetic. No other pedal complaints at this time. Patient states no change in medications or medical history since last visit. Objective: Patient presents to clinic ambulating in sneakers Vasc: DP and PT pulses are nonpalpable bilateral. CFT is less than 5 seconds bilateral. Skin temperature is warm to cool proximal to distal bilateral. There is no edema or varicosities noted. Non-Invasive Vascular Laboratory [facility] Lower Extremity Arterial Physiology Study Bilateral/Complete Date of service/time: 03/27/2022 8:00:02 AM Name: MARIE HUTSON Date of : 1950 Age: 72 years Gender: M Clinical Indication Claudication. TECHNIQUE -------- An arterial physiological examination was performed, including measurement of blood pressures using continuous wave Doppler and recording of plethysmographic with or without Doppler waveforms at the below-mentioned limb segments. FINDINGS -------- RIGHT SIDE AT REST Right Doppler Waveforms Dorsalis pedis: Monophasic. Post tibial: Monophasic. Right Pressures Brachial: 130 mmHg Ankle dorsalis pedis: 60 mmHg SWATI: 0.46 Ankle posterior tibial: 65 mmHg SWATI: 0.50 Digit: Unable to do, see tracings. Right PVR Waveforms Ankle: Mildly dampened. Transmetatarsal: Moderately dampened. Digit: Severely dampened. LEFT SIDE AT REST Left Doppler Waveforms Dorsalis pedis: Monophasic. Post tibial: Monophasic. Left Pressures Brachial: 124 mmHg Ankle dorsalis pedis: 53 mmHg SWATI: 0.41 Ankle posterior tibial: 56 mmHg SWATI: 0.43 Digit: Unable to do, see tracings. Left PVR Waveforms Ankle: Moderately dampened. Transmetatarsal: Moderately dampened. Digit: Severely dampened. IMPRESSION Compared to prior study of 09/26/2021, right ankle brachial index was 0.51 and left was 0.46. RIGHT SIDE Resting right ankle brachial index: 0.50 Abnormal ankle brachial index at rest diagnostic of peripheral artery disease. Right ankle: Moderate disease at rest. LEFT SIDE Resting left ankle brachial index: 0.43 Abnormal ankle brachial index at rest diagnostic of peripheral artery disease. Left ankle: Moderate disease at rest. Technologist: Evi Jacobson RVT, RDMS Ordering physician: NARGIS YIN Interpreting physician: ABDELRAHMAN Sullivan DO Neuro: Protective sensation is decreased to the foot and toes when tested with the 5.07 SWM bilateral. Vibratory sensation is absent at the hallux IPJ bilateral. The hallux is downgoing bilateral. Derm: Nails 1-5 b/l are painful, discolored-yellow, thick, crumbly, dystrophic and with subungal debris. Skin is of normal turgor, texture and hair growth is absent bilateral. There are no hyperkeratosis, ulcerations, scars, verruca or other lesions noted. Ortho: Muscle strength is 5/5 for all pedal groups tested. Ankle joint DF is decreased with the knee extended with no pain or crepitus noted. 1st MPJ ROM is decreased bilateral. Small tailors bunion and hallux valgus deformity b/l. Assessment: (B35.1) Onychomycosis (primary encounter diagnosis) (M79.675) Pain in toe of left foot (M79.674) Pain in toe of right foot (E11.49) Well controlled type 2 diabetes mellitus with neurologica (I73.9) PAD (peripheral artery disease) (HCC) Plan: Patient was seen and evaluated. Nails 1-5 bilateral were debrided in length and thickness. q9 modifier Patient was instructed on the continued importance of diabetic foot care along with proper diet andkeeping their blood sugar under control to prevent complications. Discussed bunion and tailors bunion of b/l feet. Continue with wider shoes. He does have diabetic shoes but feels his sneakers work better. Patient is to RTC in 3-4 months. Gomez Schwab DPM * Elvie Monterroso RN - 05/02/2022 9:57 AM EDT Patient presents with: Right Foot - Established Patient, Nail Check Left Foot - Established Patient, Nail Check AMB ROOMING INTAKE FLOWSHEET DATA Risk Screening Do you have concerns about personal safety or safety in the home?: No documented in this encounterKing'S [facility] [place]07-06-2022 Instructions* Patient Instructions* Gomez Schwab - 05/02/2022 10:01 AM EDT Diabetes Foot Care Instructions When you have diabetes, proper foot care is very important. Poor foot care may lead to amputation of a foot or leg. As a person with diabetes, you are more vulnerable to foot problems, because diabetes can damage your nerves and reduce blood flow to your feet. Here are some diabetes foot care tips to follow: Wash and Dry Your Feet Daily Use mild soaps Use warm water Pat your skin dry; do not rub. Thoroughly dry your feet. After washing, use lotion on your feet to prevent cracking. Do not put lotion between your toes. Examine Your Feet Each Day Check the tops and bottoms of your feet. Have someone else look at your feet if you cannot see them. Check for dry, cracked skin. Look for blisters, cuts, scratches, or other sores. Check for redness, increased warmth, or tenderness when touching any area of your feet. Check for ingrown toenails, corns, and calluses. If you get a blister or sore from your shoes, do not pop it. Apply a bandage and wear a differentpair of shoes. Take Care of Your Toenails Cut toenails after bathing, when they are soft. Cut toenails straight across and smooth with a nail file. Avoid cutting into the corners of toes. Do not cut cuticles. If you have neuropathy (or decreased sensation in your feet) a briar cutter should always cut your toenails. Be Careful When Exercising Walk and exercise in comfortable shoes. Do not exercise when you have open sores on your feet. Protect Your Feet With Shoes and Socks Never go barefoot. Always protect your feet by wearing shoes or hard-soled slippers or footwear. Avoid shoes with high heels and pointed toes. Avoid shoes that expose your toes or heels (such as open-toed shoes or sandals). These types of shoes increase your risk for injury and potential infections. Try on new footwear with the type of socks you usually wear. Do not wear new shoes for more than an hour at a time. Change your socks daily. Look and feel inside your shoes before putting them on to make sure there are no foreign objects orrough areas. Avoid tight socks. Wear natural-fiber socks (cotton, wool, or a cotton-wool blend). Wear special shoes if your health care provider recommends them. Wear shoes/boots that will protect your feet from various weather conditions (cold, moisture, etc.). Make sure your shoes fit properly. If you have neuropathy (nerve damage), you may not notice that your shoes are too tight. Perform the footwear test described below. Footwear Test Use this simple test to see if your shoes fit correctly: Stand on a piece of paper. (Make sure you are standing and not sitting, because your foot changes shape when you stand.) Trace the outline of your foot. Trace the outline of your shoe. Compare the tracings: Is the shoe too narrow? Is your foot crammed into the shoe? The shoe should be at least 1/2 inch longer than your longest toe and as wide as your foot. Proper Shoe Choices The following types of shoes are best for people with diabetes Closed toes and heels Leather uppers without a seam inside At least 1/2 inch extra space at the end of your longest toe Inside of shoe should be soft with no rough areas Outer sole should be made of stiff material Shoes should be at least as wide as your feet Tips for Foot Care in Diabetes Don't wait to treat a minor foot problem if you have diabetes. Follow your health care provider's guidelines and first aid guidelines. Report foot injuries and infections to your health care provider immediately. Check water temperature with your elbow, not your foot. Do not use a heating pad on your feet. Do not cross your legs. Do not self-treat your corns, calluses, or other foot problems. Go to your health care provider or briar cutter to treat these conditions. [facility] [place] History of Present illness Narrative* Nargis Yin DO - 03/27/2022 8:31 AM EDT This office note has been dictated. 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 * Telephone Encounter - Madeleine Ribera - 02/28/2022 3:33 PM EDT Patient has been identified by name and date of : Yes Pending Prescriptions Disp Refills CLOPIDOGREL 75 MG TABLET 90 tablet 3 Sig: Take 1 tablet by mouth once daily. OSMANY: No RX INSTRUCTIONS: Patient aware RX will be sent to pharmacy. No need to notify patient. Madeleine Mukherjee Pss documented in this encounterKing[facility] [place] History of Past illness Narrative* Problem Noted Date Resolved Date Obesity, Class II, BMI 35-39.9 08/22/2018 1 PVD (peripheral vascular disease) 05/24/2016 02/21/2018 Solar Lentigines 12/18/2013 02/15/2016 Other seborrheic keratosis 12/18/201301/21 Pollack angioma 12/18/2013 02/15/2016 DVT of leg (deep venous thrombosis) 11/16/2013 07/23/2014 Post-operative state 11/16/2013 01/01/2014 Postoperative anemia 10/25/2013 07/23/2014 Overview: Transfused on 10/25 1 U PRBC. H&H 9.2/.3. DC on diuretic taper for dilutional component and MVI with iron and repeat as outpt Elevated LFTs 10/23/2013 01/01/2014 Overview: ALT/AST trending down 124/214. TB rising 1.8. DC on no APAP and add Lipitor 80 for post NSTEMI when LFTs normalize DISPOSITION AND FOLLOW-UP 10/23/20132013 Overview: 63 y/o M, lives in [place], [place]. No skilled needs. 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 Phi Heredia for new cards and Preventive cards and Preventive Nutrition. Primary Care: Sher Jules MD [address] [facility] [id number] Food Quality Technician: Phi Leo M.D. [place] [facility] Acute pain 10/22/2013 01/01/2014 Overview: DC on prn Percolone and wean Nodule of right lung 10/22/2013 07/23/2014 Fluid overload 10/21/2013 10/23/2013 Overview: 10/22/2013 fluid overload from surgery - generalized edema and pulm congestion plan - continue gentle diuresis - closely monitor fluid and electrolytes Atelectasis/pleural effusion/volume overload 07/23/2014 Overview: O2 sat 98% on RA. C, DB, PEP and con't to increase activity. Repeat CXR at f/u appt Hypotension 10/20/2013 10/23/2013 Overview: Post op vasoplegia, requiring epi/vaso/levo. off vaso gtt. 10/22/2013 Pressors weaned off overnight. plan - will start low dose BB - continue gentle diuretic Mechanically assisted ventilation 10/20/2013 10/22/2013 Overview: WTE Preoperative testing 10/19/2013 10/26/2013 Overview: CTS: CABG Surgeon: Ruddy Mccartney M.D. Informed Consent Completed: No STS Score: 0.8% Isolated CABG CAD: Yes - CAD on Problem List: Yes Is intended procedure a CABG: Yes - is a beta luis alberto ordered? Yes H & P completed: Yes PA/LAT: Completed CT: N/A MRI: N/A LE US: N/A Cath: Yes - reviewed: Yes Echo:Pending EKG: Pending EF %: P PI's: Pending Carotid: Completed 40-59% bilat Mapping: N/A Dental: N/A PFT's: Pending Basename 10/19/13 0258 WBC 6.47 HB 12.3* HCT 36.7* PLT 217 INR 1.0 CREAT 0.86 UA: PENDING HCG:N/A ABO/ABO Confirmed: PENDING Blood ordered: No SA Swab: Yes - results: Pending Last Dose of Anticoagulation: LD PLAVIX per Epic notes 10/16/13 Op Note: N/A Pacemaker Check: N/A Consults: Interventional Cardiology([facility]HC) DM: Yes, HgbA1c:6.5 on 10/18/13 Cardiac Surgical prep: PENDING SIGNATURE: Elida Campuzano CNP CHECKED BY: RANDI DATE of SERVICE: 10/19/2013 TIME of SERVICE: 9:44 AM SUMMARY 10/17/2013 07/23/2014 Overview: Admission: NSTEMI Echo: 56%, Stage 1 DD, RV nl ECG: SB at 56 Cards: [facility] Cath: LM 80%, LAD 30% prox, RCA 75% distal, RI 50% prox, 40% mid PMH/PSH: CAD, HTN, DM-2 5-6 yrs, HPL, ETOH (6 drinks/day) PAD s/p L superficial femoral/popliteal/posterior tibial artery artherectomy and angioplasty 07/2010 and right femoral artery arterectomy and angioplasty, right popliteal angioplasty 08/2010 on ASA and Plavix (last dose 10/18). Smoker, quit 11/09. Obesity (BMI >34), ? ERASMO? Events: PRBC Surgery 10/20/13: CABG x 3: WRIGHT>LAD, SVG>PDA, SVG>OM1 Echo: 65%, Stage 1 DD, RV normal. Small pericardial effusion w/o signs of tamponade 10/26/13: -SR. Post NSTEMI, Peak TpnT 0.216 -O2 sat 98% on RA -Elevated LFT's trending down, DC on no APAP -Ambulating without difficulty -HTN: DC on BB, Lasix, HEENA-I -Dulcolax prior to DC for BM -HPL: DC on no statin in light of LFT elevation: recommend add when normalize -DC: , from [place], [place], no skilled needs. Request f/u Dr. 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 Hold statin d/t elevated LFT's, resume once normalize Irritated//Inflamed Seborrheic Keratosis 011 12/15/2012 Actinic Keratoses (Premalignant AK's) 11/05/2010 01/01/2014 Actinic Damage///Sun-damaged skin 11/05/2010 12/15/2012 Personal history of other malignant neoplasm of skin 11/05/2010 12/15/2012 Melanocytic nevus of trunk 11/05/201002/14 Solar Lentigines 11/05/2010 12/15/2012 Seborrheic Keratoses 11/05/2010 12/15/2012 Skin tag 11/05/2010 12/15/2012 Pollack angioma 11/05/2010 12/15/2012 Surgical Scars 11/05/2010 12/15/2012 Nonspecific abnormal results of liver function s tudy 04/29/2008 12/13/2011 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/29/200701/27 BPH without obstruction/lower urinary tract symp toms 12/29/2007 02/21/2018 Obesity, unspecified 12/29/2007 02/15/2016 Dermatophytosis of nail 12/29/2007 07/23/20 14 documented as of this encounter (statuses as of 02/28/2022) [facility] [place] History of Past illness Narrative* Problem Noted Date Resolved Date Obesity, Class II, BMI 35-39.9 08/22/2018 1 PVD (peripheral vascular disease) 05/24/2016 02/21/2018 Solar Lentigines 12/18/2013 02/15/2016 Other seborrheic keratosis 12/18/201301/21 Pollack angioma 12/18/2013 02/15/2016 DVT of leg (deep venous thrombosis) 11/16/2013 07/23/2014 Post-operative state 11/16/2013 01/01/2014 Postoperative anemia 10/25/2013 07/23/2014 Overview: Transfused on 10/25 1 U PRBC. H&H 9.2/26.3. DC on diuretic taper for dilutional component and MVI with iron and repeat as outpt Elevated LFTs 10/23/2013 01/01/2014 Overview: ALT/AST trending down 124/214. TB rising 1.8. DC on no APAP and add Lipitor 80 for post NSTEMI when LFTs normalize DISPOSITION AND FOLLOW-UP 10/23/20132013 Overview: 63 y/o M, lives in [place], [place]. No skilled needs. 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 Phi Heredia for new cards and Preventive cards and Preventive Nutrition. Primary Care: Sher Jules MD [address] [facility] [id number] Food Quality Technician: Phi Leo M.D. [facility] Acute pain 10/22/2013 01/01/2014 Overview: DC on prn Percolone and wean Nodule of right lung 10/22/2013 07/23/2014 Fluid overload 10/21/2013 10/23/2013 Overview: 10/22/2013 fluid overload from surgery - generalized edema and pulm congestion plan - continue gentle diuresis - closely monitor fluid and electrolytes Atelectasis/pleural effusion/volume overload 07/23/2014 Overview: O2 sat 98% on RA. C, DB, PEP and con't to increase activity. Repeat CXR at f/u appt Hypotension 10/20/2013 10/23/2013 Overview: Post op vasoplegia, requiring epi/vaso/levo. off vaso gtt. 10/22/2013 Pressors weaned off overnight. plan - will start low dose BB - continue gentle diuretic Mechanically assisted ventilation 10/20/2013 10/22/2013 Overview: WTE Preoperative testing 10/19/2013 10/26/2013 Overview: CTS: CABG Surgeon: Ruddy Mccartney M.D. Informed Consent Completed: No STS Score: 0.8% Isolated CABG CAD: Yes - CAD on Problem List: Yes Is intended procedure a CABG: Yes - is a beta luis alberto ordered? Yes H & P completed: Yes PA/LAT: Completed CT: N/A MRI: N/A LE US: N/A Cath: Yes - reviewed: Yes Echo:Pending EKG: Pending EF %: P PI's: Pending Carotid: Completed 40-59% bilat Mapping: N/A Dental: N/A PFT's: Pending Basename 10/19/13 0258 WBC 6.47 HB 12.3* HCT 36.7* PLT 217 INR 1.0 CREAT 0.86 UA: PENDING HCG:N/A ABO/ABO Confirmed: PENDING Blood ordered: No SA Swab: Yes - results: Pending Last Dose of Anticoagulation: LD PLAVIX per Epic notes 10/16/13 Op Note: N/A Pacemaker Check: N/A Consults: Interventional Cardiology(C) DM: Yes, HgbA1c:6.5 on 10/18/13 Cardiac Surgical prep: PENDING SIGNATURE: Elida Campuzano CNP CHECKED BY: RANDI DATE of SERVICE: 10/19/2013 TIME of SERVICE: 9:44 AM SUMMARY 10/17/2013 07/23/2014 Overview: Admission: NSTEMI Echo: 56%, Stage 1 DD, RV nl ECG: SB at 56 Cards: [facility] Cath: LM 80%, LAD 30% prox, RCA 75% distal, RI 50% prox, 40% mid PMH/PSH: CAD, HTN, DM-2 5-6 yrs, HPL, ETOH (6 drinks/day) PAD s/p L superficial femoral/popliteal/posterior tibial artery artherectomy and angioplasty 07/2010 and right femoral artery arterectomy and angioplasty, right popliteal angioplasty 08/2010 on ASA and Plavix (last dose 10/18). Smoker, quit 11/09. Obesity (BMI >34), ? ERASMO? Events: PRBC Surgery 10/20/13: CABG x 3: WRIGHT>LAD, SVG>PDA, SVG>OM1 Echo: 65%, Stage 1 DD, RV normal. Small pericardial effusion w/o signs of tamponade 10/26/13: -SR. Post NSTEMI, Peak TpnT 0.216 -O2 sat 98% on RA -Elevated LFT's trending down, DC on no APAP -Ambulating without difficulty -HTN: DC on BB, Lasix, HEENA-I -Dulcolax prior to DC for BM -HPL: DC on no statin in light of LFT elevation: recommend add when normalize -DC: , from [place], [place], no skilled needs. Request f/u Dr. 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 Hold statin d/t elevated LFT's, resume once normalize Irritated//Inflamed Seborrheic Keratosis 011 12/15/2012 Actinic Keratoses (Premalignant AK's) 11/05/2010 01/01/2014 Actinic Damage///Sun-damaged skin 11/05/2010 12/15/2012 Personal history of other malignant neoplasm of skin 11/05/2010 12/15/2012 Melanocytic nevus of trunk 11/05/201002/14 Solar Lentigines 11/05/2010 12/15/2012 Seborrheic Keratoses 11/05/2010 12/15/2012 Skin tag 11/05/2010 12/15/2012 Pollack angioma 11/05/2010 12/15/2012 Surgical Scars 11/05/2010 12/15/2012 Nonspecific abnormal results of liver function s tudy 04/29/2008 12/13/2011 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/29/200701/27 BPH without obstruction/lower urinary tract symp toms 12/29/2007 02/21/2018 Obesity, unspecified 12/29/2007 02/15/2016 Dermatophytosis of nail 12/29/2007 07/23/20 14 documented as of this encounter (statuses as of 03/27/2022) [facility] [place] History of Past illness Narrative* Problem Noted Date Resolved Date Obesity, Class II, BMI 35-39.9 08/22/2018 1 PVD (peripheral vascular disease) 05/24/2016 02/21/2018 Solar Lentigines 12/18/2013 02/15/2016 Other seborrheic keratosis 12/18/201301/21 Pollack angioma 12/18/2013 02/15/2016 DVT of leg (deep venous thrombosis) 11/16/2013 07/23/2014 Post-operative state 11/16/2013 01/01/2014 Postoperative anemia 10/25/2013 07/23/2014 Overview: Transfused on 10/25 1 U PRBC. H&H 9.2/.3. DC on diuretic taper for dilutional component and MVI with iron and repeat as outpt Elevated LFTs 10/23/2013 01/01/2014 Overview: ALT/AST trending down 124/214. TB rising 1.8. DC on no APAP and add Lipitor 80 for post NSTEMI when LFTs normalize DISPOSITION AND FOLLOW-UP 10/23/20132013 Overview: 63 y/o M, lives in [place], [place]. No skilled needs. 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 Phi Heredia for new cards and Preventive cards and Preventive Nutrition. Primary Care: Sher Jules MD [address] [facility] [id number] Food Quality Technician: Phi Leo M.D. [facility] Acute pain 10/22/2013 01/01/2014 Overview: DC on prn Percolone and wean Nodule of right lung 10/22/2013 07/23/2014 Fluid overload 10/21/2013 10/23/2013 Overview: 10/22/2013 fluid overload from surgery - generalized edema and pulm congestion plan - continue gentle diuresis - closely monitor fluid and electrolytes Atelectasis/pleural effusion/volume overload 07/23/2014 Overview: O2 sat 98% on RA. C, DB, PEP and con't to increase activity. Repeat CXR at f/u appt Hypotension 10/20/2013 10/23/2013 Overview: Post op vasoplegia, requiring epi/vaso/levo. off vaso gtt. 10/22/2013 Pressors weaned off overnight. plan - will start low dose BB - continue gentle diuretic Mechanically assisted ventilation 10/20/2013 10/22/2013 Overview: WTE Preoperative testing 10/19/2013 10/26/2013 Overview: CTS: CABG Surgeon: Ruddy Mccartney M.D. Informed Consent Completed: No STS Score: 0.8% Isolated CABG CAD: Yes - CAD on Problem List: Yes Is intended procedure a CABG: Yes - is a beta luis alberto ordered? Yes H & P completed: Yes PA/LAT: Completed CT: N/A MRI: N/A LE US: N/A Cath: Yes - reviewed: Yes Echo:Pending EKG: Pending EF %: P PI's: Pending Carotid: Completed 40-59% bilat Mapping: N/A Dental: N/A PFT's: Pending Basename 10/19/13 0258 WBC 6.47 HB 12.3* HCT 36.7* PLT 217 INR 1.0 CREAT 0.86 UA: PENDING HCG:N/A ABO/ABO Confirmed: PENDING Blood ordered: No SA Swab: Yes - results: Pending Last Dose of Anticoagulation: LD PLAVIX per Epic notes 10/16/13 Op Note: N/A Pacemaker Check: N/A Consults: Interventional Cardiology(LHC) DM: Yes, HgbA1c:6.5 on 10/18/13 Cardiac Surgical prep: PENDING SIGNATURE: Elida Campuzano CNP CHECKED BY: RANDI DATE of SERVICE: 10/19/2013 TIME of SERVICE: 9:44 AM SUMMARY 10/17/2013 07/23/2014 Overview: Admission: NSTEMI Echo: 56%, Stage 1 DD, RV nl ECG: SB at 56 Cards: [facility] Cath: LM 80%, LAD 30% prox, RCA 75% distal, RI 50% prox, 40% mid PMH/PSH: CAD, HTN, DM-2 5-6 yrs, HPL, ETOH (6 drinks/day) PAD s/p L superficial femoral/popliteal/posterior tibial artery artherectomy and angioplasty 07/2010 and right femoral artery arterectomy and angioplasty, right popliteal angioplasty 08/2010 on ASA and Plavix (last dose 10/18). Smoker, quit 11/09. Obesity (BMI >34), ? ERASMO? Events: PRBC Surgery 10/20/13: CABG x 3: WRIGHT>LAD, SVG>PDA, SVG>OM1 Echo: 65%, Stage 1 DD, RV normal. Small pericardial effusion w/o signs of tamponade 10/26/13: -SR. Post NSTEMI, Peak TpnT 0.216 -O2 sat 98% on RA -Elevated LFT's trending down, DC on no APAP -Ambulating without difficulty -HTN: DC on BB, Lasix, HEENA-I -Dulcolax prior to DC for BM -HPL: DC on no statin in light of LFT elevation: recommend add when normalize -DC: , from [place], no skilled needs. Request f/u Dr. 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 Hold statin d/t elevated LFT's, resume once normalize Irritated//Inflamed Seborrheic Keratosis 011 12/15/2012 Actinic Keratoses (Premalignant AK's) 11/05/2010 01/01/2014 Actinic Damage///Sun-damaged skin 11/05/2010 12/15/2012 Personal history of other malignant neoplasm of skin 11/05/2010 12/15/2012 Melanocytic nevus of trunk 11/05/201002/14 Solar Lentigines 11/05/2010 12/15/2012 Seborrheic Keratoses 11/05/2010 12/15/2012 Skin tag 11/05/2010 12/15/2012 Pollack angioma 11/05/2010 12/15/2012 Surgical Scars 11/05/2010 12/15/2012 Nonspecific abnormal results of liver function s tudy 04/29/2008 12/13/2011 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/29/200701/27 BPH without obstruction/lower urinary tract symp toms 12/29/2007 02/21/2018 Obesity, unspecified 12/29/2007 02/15/2016 Dermatophytosis of nail 12/29/2007 07/23/20 14 documented as of this encounter (statuses as of 05/02/2022) [facility] History of Past illness Narrative* Problem Noted Date Resolved Date Obesity, Class II, BMI 35-39.9 08/22/2018 1 PVD (peripheral vascular disease) 05/24/2016 02/21/2018 Solar Lentigines 12/18/2013 02/15/2016 Other seborrheic keratosis 12/18/201301/21 Pollack angioma 12/18/2013 02/15/2016 DVT of leg (deep venous thrombosis) 11/16/2013 07/23/2014 Post-operative state 11/16/2013 01/01/2014 Postoperative anemia 10/25/2013 07/23/2014 Overview: Transfused on 10/25 1 U PRBC. H&H 9.2/.3. DC on diuretic taper for dilutional component and MVI with iron and repeat as outpt Elevated LFTs 10/23/2013 01/01/2014 Overview: ALT/AST trending down 124/214. TB rising 1.8. DC on no APAP and add Lipitor 80 for post NSTEMI when LFTs normalize DISPOSITION AND FOLLOW-UP 10/23/20132013 Overview: 63 y/o M, lives in [place], [place]. No skilled needs. 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 Phi Heredia for new cards and Preventive cards and Preventive Nutrition. Primary Care: Sher Jules MD [address] [facility] [id number] Food Quality Technician: Phi Leo M.D. [place] [facility] Acute pain 10/22/2013 01/01/2014 Overview: DC on prn Percolone and wean Nodule of right lung 10/22/2013 07/23/2014 Fluid overload 10/21/2013 10/23/2013 Overview: 10/22/2013 fluid overload from surgery - generalized edema and pulm congestion plan - continue gentle diuresis - closely monitor fluid and electrolytes Atelectasis/pleural effusion/volume overload 07/23/2014 Overview: O2 sat 98% on RA. C, DB, PEP and con't to increase activity. Repeat CXR at f/u appt Hypotension 10/20/2013 10/23/2013 Overview: Post op vasoplegia, requiring epi/vaso/levo. off vaso gtt. 10/22/2013 Pressors weaned off overnight. plan - will start low dose BB - continue gentle diuretic Mechanically assisted ventilation 10/20/2013 10/22/2013 Overview: WTE Preoperative testing 10/19/2013 10/26/2013 Overview: CTS: CABG Surgeon: Ruddy Mccartney M.D. Informed Consent Completed: No STS Score: 0.8% Isolated CABG CAD: Yes - CAD on Problem List: Yes Is intended procedure a CABG: Yes - is a beta luis alberto ordered? Yes H & P completed: Yes PA/LAT: Completed CT: N/A MRI: N/A LE US: N/A Cath: Yes - reviewed: Yes Echo:Pending EKG: Pending EF %: P PI's: Pending Carotid: Completed 40-59% bilat Mapping: N/A Dental: N/A PFT's: Pending Basename 10/19/13 0258 WBC 6.47 HB 12.3* HCT 36.7* PLT 217 INR 1.0 CREAT 0.86 UA: PENDING HCG:N/A ABO/ABO Confirmed: PENDING Blood ordered: No SA Swab: Yes - results: Pending Last Dose of Anticoagulation: LD PLAVIX per Epic notes 10/16/13 Op Note: N/A Pacemaker Check: N/A Consults: Interventional Cardiology(LHC) DM: Yes, HgbA1c:6.5 on 10/18/13 Cardiac Surgical prep: PENDING SIGNATURE: Elida Campuzano CNP CHECKED BY: RANDI DATE of SERVICE: 10/19/2013 TIME of SERVICE: 9:44 AM SUMMARY 10/17/2013 07/23/2014 Overview: Admission: NSTEMI Echo: 56%, Stage 1 DD, RV nl ECG: SB at 56 [facility]: LM 80%, LAD 30% prox, RCA 75% distal, RI 50% prox, 40% mid PMH/PSH: CAD, HTN, DM-2 5-6 yrs, HPL, ETOH (6 drinks/day) PAD s/p L superficial femoral/popliteal/posterior tibial artery artherectomy and angioplasty 07/2010 and right femoral artery arterectomy and angioplasty, right popliteal angioplasty 08/2010 on ASA and Plavix (last dose 10/18). Smoker, quit 11/09. Obesity (BMI >34), ? ERASMO? Events: PRBC Surgery 10/20/13: CABG x 3: WRIGHT>LAD, SVG>PDA, SVG>OM1 Echo: 65%, Stage 1 DD, RV normal. Small pericardial effusion w/o signs of tamponade 10/26/13: -SR. Post NSTEMI, Peak TpnT 0.216 -O2 sat 98% on RA -Elevated LFT's trending down, DC on no APAP -Ambulating without difficulty -HTN: DC on BB, Lasix, HEENA-I -Dulcolax prior to DC for BM -HPL: DC on no statin in light of LFT elevation: recommend add when normalize -DC: , from [place], [place], no skilled needs. Request f/u Dr. 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 Hold statin d/t elevated LFT's, resume once normalize Irritated//Inflamed Seborrheic Keratosis 011 12/15/2012 Actinic Keratoses (Premalignant AK's) 11/05/2010 01/01/2014 Actinic Damage///Sun-damaged skin 11/05/2010 12/15/2012 Personal history of other malignant neoplasm of skin 11/05/2010 12/15/2012 Melanocytic nevus of trunk 11/05/201002/14 Solar Lentigines 11/05/2010 12/15/2012 Seborrheic Keratoses 11/05/2010 12/15/2012 Skin tag 11/05/2010 12/15/2012 Pollack angioma 11/05/2010 12/15/2012 Surgical Scars 11/05/2010 12/15/2012 Nonspecific abnormal results of liver function s guevarady 04/29/2008 12/13/2011 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/29/200701/27 BPH without obstruction/lower urinary tract symp toms 12/29/2007 02/21/2018 Obesity, unspecified 12/29/2007 02/15/2016 Dermatophytosis of nail 12/29/2007 07/23/20 14 documented as of this encounter (statuses as of 05/29/2022) [facility] [place]10-26-2018 History of Past illness Narrative* Problem Noted Date Resolved Date Obesity, Class II, BMI 35-39.9 08/22/2018 1 PVD (peripheral vascular disease) 05/24/2016 02/21/2018 Solar Lentigines 12/18/2013 02/15/2016 Other seborrheic keratosis 12/18/201301/21 Pollack angioma 12/18/2013 02/15/2016 DVT of leg (deep venous thrombosis) 11/16/2013 07/23/2014 Post-operative state 11/16/2013 01/01/2014 Postoperative anemia 10/25/2013 07/23/2014 Overview: Transfused on 10/25 1 U PRBC. H&H 9.2/26.3. DC on diuretic taper for dilutional component and MVI with iron and repeat as outpt Elevated LFTs 10/23/2013 01/01/2014 Overview: ALT/AST trending down 124/214. TB rising 1.8. DC on no APAP and add Lipitor 80 for post NSTEMI when LFTs normalize DISPOSITION AND FOLLOW-UP 10/23/20132013 Overview: 63 y/o M, lives in [place], [place]. No skilled needs. 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 Phi Heredia for new cards and Preventive cards and Preventive Nutrition. Primary Care: Sher Jules MD [address] [facility] [id number] Food Quality Technician: Phi Leo M.D. [facility] Cardiology Acute pain 10/22/2013 01/01/2014 Overview: DC on prn Percolone and wean Nodule of right lung 10/22/2013 07/23/2014 Fluid overload 10/21/2013 10/23/2013 Overview: 10/22/2013 fluid overload from surgery - generalized edema and pulm congestion plan - continue gentle diuresis - closely monitor fluid and electrolytes Atelectasis/pleural effusion/volume overload 07/23/2014 Overview: O2 sat 98% on RA. C, DB, PEP and con't to increase activity. Repeat CXR at f/u appt Hypotension 10/20/2013 10/23/2013 Overview: Post op vasoplegia, requiring epi/vaso/levo. off vaso gtt. 10/22/2013 Pressors weaned off overnight. plan - will start low dose BB - continue gentle diuretic Mechanically assisted ventilation 10/20/2013 10/22/2013 Overview: WTE Preoperative testing 10/19/2013 10/26/2013 Overview: CTS: CABG Surgeon: Ruddy Mccartney M.D. Informed Consent Completed: No STS Score: 0.8% Isolated CABG CAD: Yes - CAD on Problem List: Yes Is intended procedure a CABG: Yes - is a beta luis alberto ordered? Yes H & P completed: Yes PA/LAT: Completed CT: N/A MRI: N/A LE US: N/A Cath: Yes - reviewed: Yes Echo:Pending EKG: Pending EF %: P PI's: Pending Carotid: Completed 40-59% bilat Mapping: N/A Dental: N/A PFT's: Pending Basename 10/19/13 0258 WBC 6.47 HB 12.3* HCT 36.7* PLT 217 INR 1.0 CREAT 0.86 UA: PENDING HCG:N/A ABO/ABO Confirmed: PENDING Blood ordered: No SA Swab: Yes - results: Pending Last Dose of Anticoagulation: LD PLAVIX per Epic notes 10/16/13 Op Note: N/A Pacemaker Check: N/A Consults: Interventional Cardiology(LHC) DM: Yes, HgbA1c:6.5 on 10/18/13 Cardiac Surgical prep: PENDING SIGNATURE: Elida Campuzano CNP CHECKED BY: RANDI DATE of SERVICE: 10/19/2013 TIME of SERVICE: 9:44 AM SUMMARY 10/17/2013 07/23/2014 Overview: Admission: NSTEMI Echo: 56%, Stage 1 DD, RV nl ECG: SB at 56 Cards: [facility] Cath: LM 80%, LAD 30% prox, RCA 75% distal, RI 50% prox, 40% mid PMH/PSH: CAD, HTN, DM-2 5-6 yrs, HPL, ETOH (6 drinks/day) PAD s/p L superficial femoral/popliteal/posterior tibial artery artherectomy and angioplasty 07/2010 and right femoral artery arterectomy and angioplasty, right popliteal angioplasty 08/2010 on ASA and Plavix (last dose 10/18). Smoker, quit 11/09. Obesity (BMI >34), ? ERASMO? Events: PRBC Surgery 10/20/13: CABG x 3: WRIGHT>LAD, SVG>PDA, SVG>OM1 Echo: 65%, Stage 1 DD, RV normal. Small pericardial effusion w/o signs of tamponade 10/26/13: -SR. Post NSTEMI, Peak TpnT 0.216 -O2 sat 98% on RA -Elevated LFT's trending down, DC on no APAP -Ambulating without difficulty -HTN: DC on BB, Lasix, HEENA-I -Dulcolax prior to DC for BM -HPL: DC on no statin in light of LFT elevation: recommend add when normalize -DC: , from [place], [place], no skilled needs. Request f/u Dr. 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 Hold statin d/t elevated LFT's, resume once normalize Irritated//Inflamed Seborrheic Keratosis 011 12/15/2012 Actinic Keratoses (Premalignant AK's) 11/05/2010 01/01/2014 Actinic Damage///Sun-damaged skin 11/05/2010 12/15/2012 Personal history of other malignant neoplasm of skin 11/05/2010 12/15/2012 Melanocytic nevus of trunk 11/05/201002/14 Solar Lentigines 11/05/2010 12/15/2012 Seborrheic Keratoses 11/05/2010 12/15/2012 Skin tag 11/05/2010 12/15/2012 Pollack angioma 11/05/2010 12/15/2012 Surgical Scars 11/05/2010 12/15/2012 Nonspecific abnormal results of liver function s tudy 04/29/2008 12/13/2011 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/29/200701/27 BPH without obstruction/lower urinary tract symp toms 12/29/2007 02/21/2018 Obesity, unspecified 12/29/2007 02/15/2016 Dermatophytosis of nail 12/29/2007 07/23/20 14 documented as of this encounter (statuses as of 06/06/2022) [facility] [place]10-26-2018 History of Past illness Narrative* Problem Noted Date Resolved Date Obesity, Class II, BMI 35-39.9 08/22/2018 1 PVD (peripheral vascular disease) 05/24/2016 02/21/2018 Solar Lentigines 12/18/2013 02/15/2016 Other seborrheic keratosis 12/18/201301/21 Pollack angioma 12/18/2013 02/15/2016 DVT of leg (deep venous thrombosis) 11/16/2013 07/23/2014 Post-operative state 11/16/2013 01/01/2014 Postoperative anemia 10/25/2013 07/23/2014 Overview: Transfused on 10/25 1 U PRBC. H&H 9.2/26.3. DC on diuretic taper for dilutional component and MVI with iron and repeat as outpt Elevated LFTs 10/23/2013 01/01/2014 Overview: ALT/AST trending down 124/214. TB rising 1.8. DC on no APAP and add Lipitor 80 for post NSTEMI when LFTs normalize DISPOSITION AND FOLLOW-UP 10/23/20132013 Overview: 63 y/o M, lives in [place], [place]. No skilled needs. 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 Phi Heredia for new cards and Preventive cards and Preventive Nutrition. Primary Care: Sher Jules MD [address] [facility] [id number] Food Quality Technician: Phi Leo M.D. [facility] Cardiology Acute pain 10/22/2013 01/01/2014 Overview: DC on prn Percolone and wean Nodule of right lung 10/22/2013 07/23/2014 Fluid overload 10/21/2013 10/23/2013 Overview: 10/22/2013 fluid overload from surgery - generalized edema and pulm congestion plan - continue gentle diuresis - closely monitor fluid and electrolytes Atelectasis/pleural effusion/volume overload 07/23/2014 Overview: O2 sat 98% on RA. C, DB, PEP and con't to increase activity. Repeat CXR at f/u appt Hypotension 10/20/2013 10/23/2013 Overview: Post op vasoplegia, requiring epi/vaso/levo. off vaso gtt. 10/22/2013 Pressors weaned off overnight. plan - will start low dose BB - continue gentle diuretic Mechanically assisted ventilation 10/20/2013 10/22/2013 Overview: WTE Preoperative testing 10/19/2013 10/26/2013 Overview: CTS: CABG Surgeon: Ruddy Mccartney M.D. Informed Consent Completed: No STS Score: 0.8% Isolated CABG CAD: Yes - CAD on Problem List: Yes Is intended procedure a CABG: Yes - is a beta luis alberto ordered? Yes H & P completed: Yes PA/LAT: Completed CT: N/A MRI: N/A LE US: N/A Cath: Yes - reviewed: Yes Echo:Pending EKG: Pending EF %: P PI's: Pending Carotid: Completed 40-59% bilat Mapping: N/A Dental: N/A PFT's: Pending Basename 10/19/13 0258 WBC 6.47 HB 12.3* HCT 36.7* PLT 217 INR 1.0 CREAT 0.86 UA: PENDING HCG:N/A ABO/ABO Confirmed: PENDING Blood ordered: No SA Swab: Yes - results: Pending Last Dose of Anticoagulation: LD PLAVIX per Epic notes 10/16/13 Op Note: N/A Pacemaker Check: N/A Consults: Interventional Cardiology(LHC) DM: Yes, HgbA1c:6.5 on 10/18/13 Cardiac Surgical prep: PENDING SIGNATURE: Elida Campuzano CNP CHECKED BY: RANDI DATE of SERVICE: 10/19/2013 TIME of SERVICE: 9:44 AM SUMMARY 10/17/2013 07/23/2014 Overview: Admission: NSTEMI Echo: 56%, Stage 1 DD, RV nl ECG: SB at 56 Cards: [facility] Cath: LM 80%, LAD 30% prox, RCA 75% distal, RI 50% prox, 40% mid PMH/PSH: CAD, HTN, DM-2 5-6 yrs, HPL, ETOH (6 drinks/day) PAD s/p L superficial femoral/popliteal/posterior tibial artery artherectomy and angioplasty 07/2010 and right femoral artery arterectomy and angioplasty, right popliteal angioplasty 08/2010 on ASA and Plavix (last dose 10/18). Smoker, quit 11/09. Obesity (BMI >34), ? ERASMO? Events: PRBC Surgery 10/20/13: CABG x 3: WRIGHT>LAD, SVG>PDA, SVG>OM1 Echo: 65%, Stage 1 DD, RV normal. Small pericardial effusion w/o signs of tamponade 10/26/13: -SR. Post NSTEMI, Peak TpnT 0.216 -O2 sat 98% on RA -Elevated LFT's trending down, DC on no APAP -Ambulating without difficulty -HTN: DC on BB, Lasix, HEENA-I -Dulcolax prior to DC for BM -HPL: DC on no statin in light of LFT elevation: recommend add when normalize -DC: , from [place], [place], no skilled needs. Request f/u Dr. 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 Hold statin d/t elevated LFT's, resume once normalize Irritated//Inflamed Seborrheic Keratosis 011 12/15/2012 Actinic Keratoses (Premalignant AK's) 11/05/2010 01/01/2014 Actinic Damage///Sun-damaged skin 11/05/2010 12/15/2012 Personal history of other malignant neoplasm of skin 11/05/2010 12/15/2012 Melanocytic nevus of trunk 11/05/201002/14 Solar Lentigines 11/05/2010 12/15/2012 Seborrheic Keratoses 11/05/2010 12/15/2012 Skin tag 11/05/2010 12/15/2012 Pollack angioma 11/05/2010 12/15/2012 Surgical Scars 11/05/2010 12/15/2012 Nonspecific abnormal results of liver function s tudy 04/29/2008 12/13/2011 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/29/200701/27 BPH without obstruction/lower urinary tract symp toms 12/29/2007 02/21/2018 Obesity, unspecified 12/29/2007 02/15/2016 Dermatophytosis of nail 12/29/2007 07/23/20 14 documented as of this encounter (statuses as of 06/14/2022) [facility] [place]10-26-2018 History of Past illness Narrative* Problem Noted Date Resolved Date Obesity, Class II, BMI 35-39.9 08/22/2018 1 PVD (peripheral vascular disease) 05/24/2016 02/21/2018 Solar Lentigines 12/18/2013 02/15/2016 Other seborrheic keratosis 12/18/201301/21 Pollack angioma 12/18/2013 02/15/2016 DVT of leg (deep venous thrombosis) 11/16/2013 07/23/2014 Post-operative state 11/16/2013 01/01/2014 Postoperative anemia 10/25/2013 07/23/2014 Overview: Transfused on 10/25 1 U PRBC. H&H 9.2/.3. DC on diuretic taper for dilutional component and MVI with iron and repeat as outpt Elevated LFTs 10/23/2013 01/01/2014 Overview: ALT/AST trending down 124/214. TB rising 1.8. DC on no APAP and add Lipitor 80 for post NSTEMI when LFTs normalize DISPOSITION AND FOLLOW-UP 10/23/20132013 Overview: 63 y/o M, lives in [place], [place]. No skilled needs. 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 Phi Heredia for new cards and Preventive cards and Preventive Nutrition. Primary Care: Sher Jules MD [address] [facility] [id number] Food Quality Technician: Phi Leo M.D. [facility] Cardiology Acute pain 10/22/2013 01/01/2014 Overview: DC on prn Percolone and wean Nodule of right lung 10/22/2013 07/23/2014 Fluid overload 10/21/2013 10/23/2013 Overview: 10/22/2013 fluid overload from surgery - generalized edema and pulm congestion plan - continue gentle diuresis - closely monitor fluid and electrolytes Atelectasis/pleural effusion/volume overload 07/23/2014 Overview: O2 sat 98% on RA. C, DB, PEP and con't to increase activity. Repeat CXR at f/u appt Hypotension 10/20/2013 10/23/2013 Overview: Post op vasoplegia, requiring epi/vaso/levo. off vaso gtt. 10/22/2013 Pressors weaned off overnight. plan - will start low dose BB - continue gentle diuretic Mechanically assisted ventilation 10/20/2013 10/22/2013 Overview: WTE Preoperative testing 10/19/2013 10/26/2013 Overview: CTS: CABG Surgeon: Ruddy Mccartney M.D. Informed Consent Completed: No STS Score: 0.8% Isolated CABG CAD: Yes - CAD on Problem List: Yes Is intended procedure a CABG: Yes - is a beta luis alberto ordered? Yes H & P completed: Yes PA/LAT: Completed CT: N/A MRI: N/A LE US: N/A Cath: Yes - reviewed: Yes Echo:Pending EKG: Pending EF %: P PI's: Pending Carotid: Completed 40-59% bilat Mapping: N/A Dental: N/A PFT's: Pending Basename 10/19/13 0258 WBC 6.47 HB 12.3* HCT 36.7* PLT 217 INR 1.0 CREAT 0.86 UA: PENDING HCG:N/A ABO/ABO Confirmed: PENDING Blood ordered: No SA Swab: Yes - results: Pending Last Dose of Anticoagulation: LD PLAVIX per Epic notes 10/16/13 Op Note: N/A Pacemaker Check: N/A Consults: Interventional Cardiology(LHC) DM: Yes, HgbA1c:6.5 on 10/18/13 Cardiac Surgical prep: PENDING SIGNATURE: Elida Campuzano CNP CHECKED BY: RANDI DATE of SERVICE: 10/19/2013 TIME of SERVICE: 9:44 AM SUMMARY 10/17/2013 07/23/2014 Overview: Admission: NSTEMI Echo: 56%, Stage 1 DD, RV nl ECG: SB at 56 Cards: [facility] Cath: LM 80%, LAD 30% prox, RCA 75% distal, RI 50% prox, 40% mid PMH/PSH: CAD, HTN, DM-2 5-6 yrs, HPL, ETOH (6 drinks/day) PAD s/p L superficial femoral/popliteal/posterior tibial artery artherectomy and angioplasty 07/2010 and right femoral artery arterectomy and angioplasty, right popliteal angioplasty 08/2010 on ASA and Plavix (last dose 10/18). Smoker, quit 11/09. Obesity (BMI >34), ? ERASMO? Events: PRBC Surgery 10/20/13: CABG x 3: WRIGHT>LAD, SVG>PDA, SVG>OM1 Echo: 65%, Stage 1 DD, RV normal. Small pericardial effusion w/o signs of tamponade 10/26/13: -SR. Post NSTEMI, Peak TpnT 0.216 -O2 sat 98% on RA -Elevated LFT's trending down, DC on no APAP -Ambulating without difficulty -HTN: DC on BB, Lasix, HEENA-I -Dulcolax prior to DC for BM -HPL: DC on no statin in light of LFT elevation: recommend add when normalize -DC: , from [place], [place], no skilled needs. Request f/u Dr. 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 Hold statin d/t elevated LFT's, resume once normalize Irritated//Inflamed Seborrheic Keratosis 011 12/15/2012 Actinic Keratoses (Premalignant AK's) 11/05/2010 01/01/2014 Actinic Damage///Sun-damaged skin 11/05/2010 12/15/2012 Personal history of other malignant neoplasm of skin 11/05/2010 12/15/2012 Melanocytic nevus of trunk 11/05/201002/14 Solar Lentigines 11/05/2010 12/15/2012 Seborrheic Keratoses 11/05/2010 12/15/2012 Skin tag 11/05/2010 12/15/2012 Pollack angioma 11/05/2010 12/15/2012 Surgical Scars 11/05/2010 12/15/2012 Nonspecific abnormal results of liver function s tudy 04/29/2008 12/13/2011 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/29/200701/27 BPH without obstruction/lower urinary tract symp toms 12/29/2007 02/21/2018 Obesity, unspecified 12/29/2007 02/15/2016 Dermatophytosis of nail 12/29/2007 07/23/20 14 documented as of this encounter (statuses as of 06/15/2022) [facility] [place]2018 History of Past illness Narrative* Problem Noted Date Resolved Date Obesity, Class II, BMI 35-39.9 08/22/2018 1 PVD (peripheral vascular disease) 05/24/2016 02/21/2018 Solar Lentigines 12/18/2013 02/15/2016 Other seborrheic keratosis 12/18/201301/21 Pollack angioma 12/18/2013 02/15/2016 DVT of leg (deep venous thrombosis) 11/16/2013 07/23/2014 Post-operative state 11/16/2013 01/01/2014 Postoperative anemia 10/25/2013 07/23/2014 Overview: Transfused on 10/25 1 U PRBC. H&H 9.2/26.3. DC on diuretic taper for dilutional component and MVI with iron and repeat as outpt Elevated LFTs 10/23/2013 01/01/2014 Overview: ALT/AST trending down 124/214. TB rising 1.8. DC on no APAP and add Lipitor 80 for post NSTEMI when LFTs normalize DISPOSITION AND FOLLOW-UP 10/23/20132013 Overview: 63 y/o M, lives in [place], [place]. No skilled needs. 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 Phi Heredia for new cards and Preventive cards and Preventive Nutrition. Primary Care: Sher Jules MD [address] [facility] [id number] Food Quality Technician: Phi Leo M.D. [place] [facility] Cardiology Acute pain 10/22/2013 01/01/2014 Overview: DC on prn Percolone and wean Nodule of right lung 10/22/2013 07/23/2014 Fluid overload 10/21/2013 10/23/2013 Overview: 10/22/2013 fluid overload from surgery - generalized edema and pulm congestion plan - continue gentle diuresis - closely monitor fluid and electrolytes Atelectasis/pleural effusion/volume overload 07/23/2014 Overview: O2 sat 98% on RA. C, DB, PEP and con't to increase activity. Repeat CXR at f/u appt Hypotension 10/20/2013 10/23/2013 Overview: Post op vasoplegia, requiring epi/vaso/levo. off vaso gtt. 10/22/2013 Pressors weaned off overnight. plan - will start low dose BB - continue gentle diuretic Mechanically assisted ventilation 10/20/2013 10/22/2013 Overview: WTE Preoperative testing 10/19/2013 10/26/2013 Overview: CTS: CABG Surgeon: Ruddy Mccartney M.D. Informed Consent Completed: No STS Score: 0.8% Isolated CABG CAD: Yes - CAD on Problem List: Yes Is intended procedure a CABG: Yes - is a beta luis alberto ordered? Yes H & P completed: Yes PA/LAT: Completed CT: N/A MRI: N/A LE US: N/A Cath: Yes - reviewed: Yes Echo:Pending EKG: Pending EF %: P PI's: Pending Carotid: Completed 40-59% bilat Mapping: N/A Dental: N/A PFT's: Pending Basename 10/19/13 0258 WBC 6.47 HB 12.3* HCT 36.7* PLT 217 INR 1.0 CREAT 0.86 UA: PENDING HCG:N/A ABO/ABO Confirmed: PENDING Blood ordered: No SA Swab: Yes - results: Pending Last Dose of Anticoagulation: LD PLAVIX per Epic notes 10/16/13 Op Note: N/A Pacemaker Check: N/A Consults: Interventional Cardiology(LHC) DM: Yes, HgbA1c:6.5 on 10/18/13 Cardiac Surgical prep: PENDING SIGNATURE: Elida Campuzano CNP CHECKED BY: RANDI DATE of SERVICE: 10/19/2013 TIME of SERVICE: 9:44 AM SUMMARY 10/17/2013 07/23/2014 Overview: Admission: NSTEMI Echo: 56%, Stage 1 DD, RV nl ECG: SB at 56 Cards: [facility] Cath: LM 80%, LAD 30% prox, RCA 75% distal, RI 50% prox, 40% mid PMH/PSH: CAD, HTN, DM-2 5-6 yrs, HPL, ETOH (6 drinks/day) PAD s/p L superficial femoral/popliteal/posterior tibial artery artherectomy and angioplasty 07/2010 and right femoral artery arterectomy and angioplasty, right popliteal angioplasty 08/2010 on ASA and Plavix (last dose 10/18). Smoker, quit 11/09. Obesity (BMI >34), ? ERASMO? Events: PRBC Surgery 10/20/13: CABG x 3: WRIGHT>LAD, SVG>PDA, SVG>OM1 Echo: 65%, Stage 1 DD, RV normal. Small pericardial effusion w/o signs of tamponade 10/26/13: -SR. Post NSTEMI, Peak TpnT 0.216 -O2 sat 98% on RA -Elevated LFT's trending down, DC on no APAP -Ambulating without difficulty -HTN: DC on BB, Lasix, HEENA-I -Dulcolax prior to DC for BM -HPL: DC on no statin in light of LFT elevation: recommend add when normalize -DC: , from [place], no skilled needs. Request f/u Dr. 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 Hold statin d/t elevated LFT's, resume once normalize Irritated//Inflamed Seborrheic Keratosis 011 12/15/2012 Actinic Keratoses (Premalignant AK's) 11/05/2010 01/01/2014 Actinic Damage///Sun-damaged skin 11/05/2010 12/15/2012 Personal history of other malignant neoplasm of skin 11/05/2010 12/15/2012 Melanocytic nevus of trunk 11/05/201002/14 Solar Lentigines 11/05/2010 12/15/2012 Seborrheic Keratoses 11/05/2010 12/15/2012 Skin tag 11/05/2010 12/15/2012 Pollack angioma 11/05/2010 12/15/2012 Surgical Scars 11/05/2010 12/15/2012 Nonspecific abnormal results of liver function s tudy 04/29/2008 12/13/2011 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/29/200701/27 BPH without obstruction/lower urinary tract symp toms 12/29/2007 02/21/2018 Obesity, unspecified 12/29/2007 02/15/2016 Dermatophytosis of nail 12/29/2007 07/23/20 14 documented as of this encounter (statuses as of 06/28/2022) [facility] [place]2018 History of Past illness Narrative* Problem Noted Date Resolved Date Obesity, Class II, BMI 35-39.9 08/22/2018 1 PVD (peripheral vascular disease) 05/24/2016 02/21/2018 Solar Lentigines 12/18/2013 02/15/2016 Other seborrheic keratosis 12/18/201301/21 Pollack angioma 12/18/2013 02/15/2016 DVT of leg (deep venous thrombosis) 11/16/2013 07/23/2014 Post-operative state 11/16/2013 01/01/2014 Postoperative anemia 10/25/2013 07/23/2014 Overview: Transfused on 10/25 1 U PRBC. H&H 9.2.3. DC on diuretic taper for dilutional component and MVI with iron and repeat as outpt Elevated LFTs 10/23/2013 01/01/2014 Overview: ALT/AST trending down 124/214. TB rising 1.8. DC on no APAP and add Lipitor 80 for post NSTEMI when LFTs normalize DISPOSITION AND FOLLOW-UP 10/23/20132013 Overview: 63 y/o M, lives in [place], [place]. No skilled needs. 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 Phi Heredia for new cards and Preventive cards and Preventive Nutrition. Primary Care: Sher Jules MD [address] [facility] [id number] Food Quality Technician: Phi Leo M.D. [place] [facility] Acute pain 10/22/2013 01/01/2014 Overview: DC on prn Percolone and wean Nodule of right lung 10/22/2013 07/23/2014 Fluid overload 10/21/2013 10/23/2013 Overview: 10/22/2013 fluid overload from surgery - generalized edema and pulm congestion plan - continue gentle diuresis - closely monitor fluid and electrolytes Atelectasis/pleural effusion/volume overload 07/23/2014 Overview: O2 sat 98% on RA. C, DB, PEP and con't to increase activity. Repeat CXR at f/u appt Hypotension 10/20/2013 10/23/2013 Overview: Post op vasoplegia, requiring epi/vaso/levo. off vaso gtt. 10/22/2013 Pressors weaned off overnight. plan - will start low dose BB - continue gentle diuretic Mechanically assisted ventilation 10/20/2013 10/22/2013 Overview: WTE Preoperative testing 10/19/2013 10/26/2013 Overview: CTS: CABG Surgeon: Ruddy Mccartney M.D. Informed Consent Completed: No STS Score: 0.8% Isolated CABG CAD: Yes - CAD on Problem List: Yes Is intended procedure a CABG: Yes - is a beta luis alberto ordered? Yes H & P completed: Yes PA/LAT: Completed CT: N/A MRI: N/A LE US: N/A Cath: Yes - reviewed: Yes Echo:Pending EKG: Pending EF %: P PI's: Pending Carotid: Completed 40-59% bilat Mapping: N/A Dental: N/A PFT's: Pending Basename 10/19/13 0258 WBC 6.47 HB 12.3* HCT 36.7* PLT 217 INR 1.0 CREAT 0.86 UA: PENDING HCG:N/A ABO/ABO Confirmed: PENDING Blood ordered: No SA Swab: Yes - results: Pending Last Dose of Anticoagulation: LD PLAVIX per Epic notes 10/16/13 Op Note: N/A Pacemaker Check: N/A Consults: Interventional Cardiology(LHC) DM: Yes, HgbA1c:6.5 on 10/18/13 Cardiac Surgical prep: PENDING SIGNATURE: Elida Campuzano CNP CHECKED BY: RANDI DATE of SERVICE: 10/19/2013 TIME of SERVICE: 9:44 AM SUMMARY 10/17/2013 07/23/2014 Overview: Admission: NSTEMI Echo: 56%, Stage 1 DD, RV nl ECG: SB at 56 Cards: [facility] Cath: LM 80%, LAD 30% prox, RCA 75% distal, RI 50% prox, 40% mid PMH/PSH: CAD, HTN, DM-2 5-6 yrs, HPL, ETOH (6 drinks/day) PAD s/p L superficial femoral/popliteal/posterior tibial artery artherectomy and angioplasty 07/2010 and right femoral artery arterectomy and angioplasty, right popliteal angioplasty 08/2010 on ASA and Plavix (last dose 10/18). Smoker, quit 11/09. Obesity (BMI >34), ? ERASMO? Events: PRBC Surgery 10/20/13: CABG x 3: WRIGHT>LAD, SVG>PDA, SVG>OM1 Echo: 65%, Stage 1 DD, RV normal. Small pericardial effusion w/o signs of tamponade 10/26/13: -SR. Post NSTEMI, Peak TpnT 0.216 -O2 sat 98% on RA -Elevated LFT's trending down, DC on no APAP -Ambulating without difficulty -HTN: DC on BB, Lasix, HEENA-I -Dulcolax prior to DC for BM -HPL: DC on no statin in light of LFT elevation: recommend add when normalize -DC: , from [place], [place], no skilled needs. Request f/u Dr. 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 Hold statin d/t elevated LFT's, resume once normalize Irritated//Inflamed Seborrheic Keratosis 011 12/15/2012 Actinic Keratoses (Premalignant AK's) 11/05/2010 01/01/2014 Actinic Damage///Sun-damaged skin 11/05/2010 12/15/2012 Personal history of other malignant neoplasm of skin 11/05/2010 12/15/2012 Melanocytic nevus of trunk 11/05/201002/14 Solar Lentigines 11/05/2010 12/15/2012 Seborrheic Keratoses 11/05/2010 12/15/2012 Skin tag 11/05/2010 12/15/2012 Pollack angioma 11/05/2010 12/15/2012 Surgical Scars 11/05/2010 12/15/2012 Nonspecific abnormal results of liver function s tudy 04/29/2008 12/13/2011 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/29/200701/27 BPH without obstruction/lower urinary tract symp toms 12/29/2007 02/21/2018 Obesity, unspecified 12/29/2007 02/15/2016 Dermatophytosis of nail 12/29/2007 07/23/20 14 documented as of this encounter (statuses as of 07/11/2022) [facility] [place]10-26-2018 History of Past illness Narrative* Problem Noted Date Resolved Date Obesity, Class II, BMI 35-39.9 08/22/2018 1 PVD (peripheral vascular disease) 05/24/2016 02/21/2018 Solar Lentigines 12/18/2013 02/15/2016 Other seborrheic keratosis 12/18/201301/21 Pollack angioma 12/18/2013 02/15/2016 DVT of leg (deep venous thrombosis) 11/16/2013 07/23/2014 Post-operative state 11/16/2013 01/01/2014 Postoperative anemia 10/25/2013 07/23/2014 Overview: Transfused on 10/25 1 U PRBC. H&H 9.2/.3. DC on diuretic taper for dilutional component and MVI with iron and repeat as outpt Elevated LFTs 10/23/2013 01/01/2014 Overview: ALT/AST trending down 124/214. TB rising 1.8. DC on no APAP and add Lipitor 80 for post NSTEMI when LFTs normalize DISPOSITION AND FOLLOW-UP 10/23/20132013 Overview: 63 y/o M, lives in [place], [place]. No skilled needs. 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 Phi Heredia for new cards and Preventive cards and Preventive Nutrition. Primary Care: Sher Jules MD [address] [facility] [id number] Food Quality Technician: Phi Leo M.D. [place] [facility] Acute pain 10/22/2013 01/01/2014 Overview: DC on prn Percolone and wean Nodule of right lung 10/22/2013 07/23/2014 Fluid overload 10/21/2013 10/23/2013 Overview: 10/22/2013 fluid overload from surgery - generalized edema and pulm congestion plan - continue gentle diuresis - closely monitor fluid and electrolytes Atelectasis/pleural effusion/volume overload 07/23/2014 Overview: O2 sat 98% on RA. C, DB, PEP and con't to increase activity. Repeat CXR at f/u appt Hypotension 10/20/2013 10/23/2013 Overview: Post op vasoplegia, requiring epi/vaso/levo. off vaso gtt. 10/22/2013 Pressors weaned off overnight. plan - will start low dose BB - continue gentle diuretic Mechanically assisted ventilation 10/20/2013 10/22/2013 Overview: WTE Preoperative testing 10/19/2013 10/26/2013 Overview: CTS: CABG Surgeon: Ruddy Mccartney M.D. Informed Consent Completed: No STS Score: 0.8% Isolated CABG CAD: Yes - CAD on Problem List: Yes Is intended procedure a CABG: Yes - is a beta luis alberto ordered? Yes H & P completed: Yes PA/LAT: Completed CT: N/A MRI: N/A LE US: N/A Cath: Yes - reviewed: Yes Echo:Pending EKG: Pending EF %: P PI's: Pending Carotid: Completed 40-59% bilat Mapping: N/A Dental: N/A PFT's: Pending Basename 10/19/13 0258 WBC 6.47 HB 12.3* HCT 36.7* PLT 217 INR 1.0 CREAT 0.86 UA: PENDING HCG:N/A ABO/ABO Confirmed: PENDING Blood ordered: No SA Swab: Yes - results: Pending Last Dose of Anticoagulation: LD PLAVIX per Epic notes 10/16/13 Op Note: N/A Pacemaker Check: N/A Consults: Interventional Cardiology([facility]) DM: Yes, HgbA1c:6.5 on 10/18/13 Cardiac Surgical prep: PENDING SIGNATURE: Elida Campuzano CNP CHECKED BY: RANDI DATE of SERVICE: 10/19/2013 TIME of SERVICE: 9:44 AM SUMMARY 10/17/2013 07/23/2014 Overview: Admission: NSTEMI Echo: 56%, Stage 1 DD, RV nl ECG: SB at 56 Cards: [facility] Cath: LM 80%, LAD 30% prox, RCA 75% distal, RI 50% prox, 40% mid PMH/PSH: CAD, HTN, DM-2 5-6 yrs, HPL, ETOH (6 drinks/day) PAD s/p L superficial femoral/popliteal/posterior tibial artery artherectomy and angioplasty 07/2010 and right femoral artery arterectomy and angioplasty, right popliteal angioplasty 08/2010 on ASA and Plavix (last dose 10/18). Smoker, quit 11/09. Obesity (BMI >34), ? ERASMO? Events: PRBC Surgery 10/20/13: CABG x 3: WRIGHT>LAD, SVG>PDA, SVG>OM1 Echo: 65%, Stage 1 DD, RV normal. Small pericardial effusion w/o signs of tamponade 10/26/13: -SR. Post NSTEMI, Peak TpnT 0.216 -O2 sat 98% on RA -Elevated LFT's trending down, DC on no APAP -Ambulating without difficulty -HTN: DC on BB, Lasix, HEENA-I -Dulcolax prior to DC for BM -HPL: DC on no statin in light of LFT elevation: recommend add when normalize -DC: , from [place], [place], no skilled needs. Request f/u Dr. 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 Hold statin d/t elevated LFT's, resume once normalize Irritated//Inflamed Seborrheic Keratosis 011 12/15/2012 Actinic Keratoses (Premalignant AK's) 11/05/2010 01/01/2014 Actinic Damage///Sun-damaged skin 11/05/2010 12/15/2012 Personal history of other malignant neoplasm of skin 11/05/2010 12/15/2012 Melanocytic nevus of trunk 11/05/201002/14 Solar Lentigines 11/05/2010 12/15/2012 Seborrheic Keratoses 11/05/2010 12/15/2012 Skin tag 11/05/2010 12/15/2012 Pollack angioma 11/05/2010 12/15/2012 Surgical Scars 11/05/2010 12/15/2012 Nonspecific abnormal results of liver function s tudy 04/29/2008 12/13/2011 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/29/200701/27 BPH without obstruction/lower urinary tract symp toms 12/29/2007 02/21/2018 Obesity, unspecified 12/29/2007 02/15/2016 Dermatophytosis of nail 12/29/2007 07/23/20 14 documented as of this encounter (statuses as of 07/18/2022) [facility] [place]10-26-2018 History of Past illness Narrative* Problem Noted Date Resolved Date Obesity, Class II, BMI 35-39.9 08/22/2018 1 PVD (peripheral vascular disease) 05/24/2016 02/21/2018 Solar Lentigines 12/18/2013 02/15/2016 Other seborrheic keratosis 12/18/201301/21 Pollack angioma 12/18/2013 02/15/2016 DVT of leg (deep venous thrombosis) 11/16/2013 07/23/2014 Post-operative state 11/16/2013 01/01/2014 Postoperative anemia 10/25/2013 07/23/2014 Overview: Transfused on 10/25 1 U PRBC. H&H 9.2/26.3. DC on diuretic taper for dilutional component and MVI with iron and repeat as outpt Elevated LFTs 10/23/2013 01/01/2014 Overview: ALT/AST trending down 124/214. TB rising 1.8. DC on no APAP and add Lipitor 80 for post NSTEMI when LFTs normalize DISPOSITION AND FOLLOW-UP 10/23/20132013 Overview: 63 y/o M, lives in [place], [place]. No skilled needs. 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 Phi Heredia for new cards and Preventive cards and Preventive Nutrition. Primary Care: Sher Jules MD [address] [facility] [id number] Food Quality Technician: Phi Leo M.D. [place] [facility] Acute pain 10/22/2013 01/01/2014 Overview: DC on prn Percolone and wean Nodule of right lung 10/22/2013 07/23/2014 Fluid overload 10/21/2013 10/23/2013 Overview: 10/22/2013 fluid overload from surgery - generalized edema and pulm congestion plan - continue gentle diuresis - closely monitor fluid and electrolytes Atelectasis/pleural effusion/volume overload 07/23/2014 Overview: O2 sat 98% on RA. C, DB, PEP and con't to increase activity. Repeat CXR at f/u appt Hypotension 10/20/2013 10/23/2013 Overview: Post op vasoplegia, requiring epi/vaso/levo. off vaso gtt. 10/22/2013 Pressors weaned off overnight. plan - will start low dose BB - continue gentle diuretic Mechanically assisted ventilation 10/20/2013 10/22/2013 Overview: WTE Preoperative testing 10/19/2013 10/26/2013 Overview: CTS: CABG Surgeon: Ruddy Mccartney M.D. Informed Consent Completed: No STS Score: 0.8% Isolated CABG CAD: Yes - CAD on Problem List: Yes Is intended procedure a CABG: Yes - is a beta luis alberto ordered? Yes H & P completed: Yes PA/LAT: Completed CT: N/A MRI: N/A LE US: N/A Cath: Yes - reviewed: Yes Echo:Pending EKG: Pending EF %: P PI's: Pending Carotid: Completed 40-59% bilat Mapping: N/A Dental: N/A PFT's: Pending Basename 10/19/13 0258 WBC 6.47 HB 12.3* HCT 36.7* PLT 217 INR 1.0 CREAT 0.86 UA: PENDING HCG:N/A ABO/ABO Confirmed: PENDING Blood ordered: No SA Swab: Yes - results: Pending Last Dose of Anticoagulation: LD PLAVIX per Epic notes 10/16/13 Op Note: N/A Pacemaker Check: N/A Consults: Interventional Cardiology([facility]) DM: Yes, HgbA1c:6.5 on 10/18/13 Cardiac Surgical prep: PENDING SIGNATURE: Elida Campuzano CNP CHECKED BY: RANDI DATE of SERVICE: 10/19/2013 TIME of SERVICE: 9:44 AM SUMMARY 10/17/2013 07/23/2014 Overview: Admission: NSTEMI Echo: 56%, Stage 1 DD, RV nl ECG: SB at 56 Cards: [facility] Cath: LM 80%, LAD 30% prox, RCA 75% distal, RI 50% prox, 40% mid PMH/PSH: CAD, HTN, DM-2 5-6 yrs, HPL, ETOH (6 drinks/day) PAD s/p L superficial femoral/popliteal/posterior tibial artery artherectomy and angioplasty 07/2010 and right femoral artery arterectomy and angioplasty, right popliteal angioplasty 08/2010 on ASA and Plavix (last dose 10/18). Smoker, quit 11/09. Obesity (BMI >34), ? ERASMO? Events: PRBC Surgery 10/20/13: CABG x 3: WRIGHT>LAD, SVG>PDA, SVG>OM1 Echo: 65%, Stage 1 DD, RV normal. Small pericardial effusion w/o signs of tamponade 10/26/13: -SR. Post NSTEMI, Peak TpnT 0.216 -O2 sat 98% on RA -Elevated LFT's trending down, DC on no APAP -Ambulating without difficulty -HTN: DC on BB, Lasix, HEENA-I -Dulcolax prior to DC for BM -HPL: DC on no statin in light of LFT elevation: recommend add when normalize -DC: , from [place], [place], no skilled needs. Request f/u Dr. 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 Hold statin d/t elevated LFT's, resume once normalize Irritated//Inflamed Seborrheic Keratosis 011 12/15/2012 Actinic Keratoses (Premalignant AK's) 11/05/2010 01/01/2014 Actinic Damage///Sun-damaged skin 11/05/2010 12/15/2012 Personal history of other malignant neoplasm of skin 11/05/2010 12/15/2012 Melanocytic nevus of trunk 11/05/201002/14 Solar Lentigines 11/05/2010 12/15/2012 Seborrheic Keratoses 11/05/2010 12/15/2012 Skin tag 11/05/2010 12/15/2012 Pollack angioma 11/05/2010 12/15/2012 Surgical Scars 11/05/2010 12/15/2012 Nonspecific abnormal results of liver function s guevarady 04/29/2008 12/13/2011 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/29/200701/27 BPH without obstruction/lower urinary tract symp toms 12/29/2007 02/21/2018 Obesity, unspecified 12/29/2007 02/15/2016 Dermatophytosis of nail 12/29/2007 07/23/20 14 documented as of this encounter (statuses as of 09/05/2022) [facility] [place]-26-2018 History of Past illness Narrative* Problem Noted Date Resolved Date Obesity, Class II, BMI 35-39.9 08/22/2018 1 PVD (peripheral vascular disease) 05/24/2016 02/21/2018 Solar Lentigines 12/18/2013 02/15/2016 Other seborrheic keratosis 12/18/201301/21 Pollack angioma 12/18/2013 02/15/2016 DVT of leg (deep venous thrombosis) 11/16/2013 07/23/2014 Post-operative state 11/16/2013 01/01/2014 Postoperative anemia 10/25/2013 07/23/2014 Overview: Transfused on 10/25 1 U PRBC. H&H 9.2/26.3. DC on diuretic taper for dilutional component and MVI with iron and repeat as outpt Elevated LFTs 10/23/2013 01/01/2014 Overview: ALT/AST trending down 124/214. TB rising 1.8. DC on no APAP and add Lipitor 80 for post NSTEMI when LFTs normalize DISPOSITION AND FOLLOW-UP 10/23/20132013 Overview: 63 y/o M, lives in [place], [place]. No skilled needs. 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 Phi Heredia for new cards and Preventive cards and Preventive Nutrition. Primary Care: Sher Jules MD [address] [facility] [address] Food Quality Technician: Phi Leo M.D. [place] [facility] Acute pain 10/22/2013 01/01/2014 Overview: DC on prn Percolone and wean Nodule of right lung 10/22/2013 07/23/2014 Fluid overload 10/21/2013 10/23/2013 Overview: 10/22/2013 fluid overload from surgery - generalized edema and pulm congestion plan - continue gentle diuresis - closely monitor fluid and electrolytes Atelectasis/pleural effusion/volume overload 07/23/2014 Overview: O2 sat 98% on RA. C, DB, PEP and con't to increase activity. Repeat CXR at f/u appt Hypotension 10/20/2013 10/23/2013 Overview: Post op vasoplegia, requiring epi/vaso/levo. off vaso gtt. 10/22/2013 Pressors weaned off overnight. plan - will start low dose BB - continue gentle diuretic Mechanically assisted ventilation 10/20/2013 10/22/2013 Overview: WTE Preoperative testing 10/19/2013 10/26/2013 Overview: CTS: CABG Surgeon: Ruddy Mccartney M.D. Informed Consent Completed: No STS Score: 0.8% Isolated CABG CAD: Yes - CAD on Problem List: Yes Is intended procedure a CABG: Yes - is a beta luis alberto ordered? Yes H & P completed: Yes PA/LAT: Completed CT: N/A MRI: N/A LE US: N/A Cath: Yes - reviewed: Yes Echo:Pending EKG: Pending EF %: P PI's: Pending Carotid: Completed 40-59% bilat Mapping: N/A Dental: N/A PFT's: Pending Basename 10/19/13 0258 WBC 6.47 HB 12.3* HCT 36.7* PLT 217 INR 1.0 CREAT 0.86 UA: PENDING HCG:N/A ABO/ABO Confirmed: PENDING Blood ordered: No SA Swab: Yes - results: Pending Last Dose of Anticoagulation: LD PLAVIX per Epic notes 10/16/13 Op Note: N/A Pacemaker Check: N/A Consults: Interventional Cardiology([facility]) DM: Yes, HgbA1c:6.5 on 10/18/13 Cardiac Surgical prep: PENDING SIGNATURE: Elida Campuzano CNP CHECKED BY: RANDI DATE of SERVICE: 10/19/2013 TIME of SERVICE: 9:44 AM SUMMARY 10/17/2013 07/23/2014 Overview: Admission: NSTEMI Echo: 56%, Stage 1 DD, RV nl ECG: SB at 56 Cards: [facility] Cath: LM 80%, LAD 30% prox, RCA 75% distal, RI 50% prox, 40% mid PMH/PSH: CAD, HTN, DM-2 5-6 yrs, HPL, ETOH (6 drinks/day) PAD s/p L superficial femoral/popliteal/posterior tibial artery artherectomy and angioplasty 07/2010 and right femoral artery arterectomy and angioplasty, right popliteal angioplasty 08/2010 on ASA and Plavix (last dose 10/18). Smoker, quit 11/09. Obesity (BMI >34), ? ERASMO? Events: PRBC Surgery 10/20/13: CABG x 3: WRIGHT>LAD, SVG>PDA, SVG>OM1 Echo: 65%, Stage 1 DD, RV normal. Small pericardial effusion w/o signs of tamponade 10/26/13: -SR. Post NSTEMI, Peak TpnT 0.216 -O2 sat 98% on RA -Elevated LFT's trending down, DC on no APAP -Ambulating without difficulty -HTN: DC on BB, Lasix, HEENA-I -Dulcolax prior to DC for BM -HPL: DC on no statin in light of LFT elevation: recommend add when normalize -DC: , from [place], [place], no skilled needs. Request f/u Dr. 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 Hold statin d/t elevated LFT's, resume once normalize Irritated//Inflamed Seborrheic Keratosis 011 12/15/2012 Actinic Keratoses (Premalignant AK's) 11/05/2010 01/01/2014 Actinic Damage///Sun-damaged skin 11/05/2010 12/15/2012 Personal history of other malignant neoplasm of skin 11/05/2010 12/15/2012 Melanocytic nevus of trunk 11/05/201002/14 Solar Lentigines 11/05/2010 12/15/2012 Seborrheic Keratoses 11/05/2010 12/15/2012 Skin tag 11/05/2010 12/15/2012 Pollack angioma 11/05/2010 12/15/2012 Surgical Scars 11/05/2010 12/15/2012 Nonspecific abnormal results of liver function s tudy 04/29/2008 12/13/2011 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/29/200701/27 BPH without obstruction/lower urinary tract symp toms 12/29/2007 02/21/2018 Obesity, unspecified 12/29/2007 02/15/2016 Dermatophytosis of nail 12/29/2007 07/23/20 14 documented as of this encounter (statuses as of 09/11/2022) [facility] [place]2018 History of Past illness Narrative* Problem Noted Date Resolved Date Obesity, Class II, BMI 35-39.9 08/22/2018 1 PVD (peripheral vascular disease) 05/24/2016 02/21/2018 Solar Lentigines 12/18/2013 02/15/2016 Other seborrheic keratosis 12/18/201301/21 Pollack angioma 12/18/2013 02/15/2016 DVT of leg (deep venous thrombosis) 11/16/2013 07/23/2014 Post-operative state 11/16/2013 01/01/2014 Postoperative anemia 10/25/2013 07/23/2014 Overview: Transfused on 10/25 1 U PRBC. H&H 9.2/26.3. DC on diuretic taper for dilutional component and MVI with iron and repeat as outpt Elevated LFTs 10/23/2013 01/01/2014 Overview: ALT/AST trending down 124/214. TB rising 1.8. DC on no APAP and add Lipitor 80 for post NSTEMI when LFTs normalize DISPOSITION AND FOLLOW-UP 10/23/20132013 Overview: 63 y/o M, lives in [place], [place]. No skilled needs. 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 Phi Heredia for new cards and Preventive cards and Preventive Nutrition. Primary Care: Sher Jules MD [address] [facility] [id number] Food Quality Technician: Phi Leo M.D. [facility] Acute pain 10/22/2013 01/01/2014 Overview: DC on prn Percolone and wean Nodule of right lung 10/22/2013 07/23/2014 Fluid overload 10/21/2013 10/23/2013 Overview: 10/22/2013 fluid overload from surgery - generalized edema and pulm congestion plan - continue gentle diuresis - closely monitor fluid and electrolytes Atelectasis/pleural effusion/volume overload 07/23/2014 Overview: O2 sat 98% on RA. C, DB, PEP and con't to increase activity. Repeat CXR at f/u appt Hypotension 10/20/2013 10/23/2013 Overview: Post op vasoplegia, requiring epi/vaso/levo. off vaso gtt. 10/22/2013 Pressors weaned off overnight. plan - will start low dose BB - continue gentle diuretic Mechanically assisted ventilation 10/20/2013 10/22/2013 Overview: WTE Preoperative testing 10/19/2013 10/26/2013 Overview: CTS: CABG Surgeon: Ruddy Mccartney M.D. Informed Consent Completed: No STS Score: 0.8% Isolated CABG CAD: Yes - CAD on Problem List: Yes Is intended procedure a CABG: Yes - is a beta luis alberto ordered? Yes H & P completed: Yes PA/LAT: Completed CT: N/A MRI: N/A LE US: N/A Cath: Yes - reviewed: Yes Echo:Pending EKG: Pending EF %: P PI's: Pending Carotid: Completed 40-59% bilat Mapping: N/A Dental: N/A PFT's: Pending Basename 10/19/13 0258 WBC 6.47 HB 12.3* HCT 36.7* PLT 217 INR 1.0 CREAT 0.86 UA: PENDING HCG:N/A ABO/ABO Confirmed: PENDING Blood ordered: No SA Swab: Yes - results: Pending Last Dose of Anticoagulation: LD PLAVIX per Epic notes 10/16/13 Op Note: N/A Pacemaker Check: N/A Consults: Interventional Cardiology([facility]) DM: Yes, HgbA1c:6.5 on 10/18/13 Cardiac Surgical prep: PENDING SIGNATURE: Elida Campuzano CNP CHECKED BY: RANDI DATE of SERVICE: 10/19/2013 TIME of SERVICE: 9:44 AM SUMMARY 10/17/2013 07/23/2014 Overview: Admission: NSTEMI Echo: 56%, Stage 1 DD, RV nl ECG: SB at 56 Cards: [facility] Cath: LM 80%, LAD 30% prox, RCA 75% distal, RI 50% prox, 40% mid PMH/PSH: CAD, HTN, DM-2 5-6 yrs, HPL, ETOH (6 drinks/day) PAD s/p L superficial femoral/popliteal/posterior tibial artery artherectomy and angioplasty 07/2010 and right femoral artery arterectomy and angioplasty, right popliteal angioplasty 08/2010 on ASA and Plavix (last dose 10/18). Smoker, quit 11/09. Obesity (BMI >34), ? ERASMO? Events: PRBC Surgery 10/20/13: CABG x 3: WRIGHT>LAD, SVG>PDA, SVG>OM1 Echo: 65%, Stage 1 DD, RV normal. Small pericardial effusion w/o signs of tamponade 10/26/13: -SR. Post NSTEMI, Peak TpnT 0.216 -O2 sat 98% on RA -Elevated LFT's trending down, DC on no APAP -Ambulating without difficulty -HTN: DC on BB, Lasix, HEENA-I -Dulcolax prior to DC for BM -HPL: DC on no statin in light of LFT elevation: recommend add when normalize -DC: , from [place], [place], no skilled needs. Request f/u Dr. 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 Hold statin d/t elevated LFT's, resume once normalize Irritated//Inflamed Seborrheic Keratosis 011 12/15/2012 Actinic Keratoses (Premalignant AK's) 11/05/2010 01/01/2014 Actinic Damage///Sun-damaged skin 11/05/2010 12/15/2012 Personal history of other malignant neoplasm of skin 11/05/2010 12/15/2012 Melanocytic nevus of trunk 11/05/201002/14 Solar Lentigines 11/05/2010 12/15/2012 Seborrheic Keratoses 11/05/2010 12/15/2012 Skin tag 11/05/2010 12/15/2012 Pollack angioma 11/05/2010 12/15/2012 Surgical Scars 11/05/2010 12/15/2012 Nonspecific abnormal results of liver function s tudy 04/29/2008 12/13/2011 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/29/200701/27 BPH without obstruction/lower urinary tract symp toms 12/29/2007 02/21/2018 Obesity, unspecified 12/29/2007 02/15/2016 Dermatophytosis of nail 12/29/2007 07/23/20 14 documented as of this encounter (statuses as of 09/24/2022) [facility]2018 History of Past illness Narrative* Problem Noted Date Resolved Date Obesity, Class II, BMI 35-39.9 08/22/2018 1 PVD (peripheral vascular disease) 05/24/2016 02/21/2018 Solar Lentigines 12/18/2013 02/15/2016 Other seborrheic keratosis 12/18/201301/21 Pollack angioma 12/18/2013 02/15/2016 DVT of leg (deep venous thrombosis) 11/16/2013 07/23/2014 Post-operative state 11/16/2013 01/01/2014 Postoperative anemia 10/25/2013 07/23/2014 Overview: Transfused on 10/25 1 U PRBC. H&H 9.2/26.3. DC on diuretic taper for dilutional component and MVI with iron and repeat as outpt Elevated LFTs 10/23/2013 01/01/2014 Overview: ALT/AST trending down 124/214. TB rising 1.8. DC on no APAP and add Lipitor 80 for post NSTEMI when LFTs normalize DISPOSITION AND FOLLOW-UP 10/23/20132013 Overview: 63 y/o M, lives in [place], [place]. No skilled needs. 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 Phi Heredia for new cards and Preventive cards and Preventive Nutrition. Primary Care: Sher Jules MD [address] [facility] [id number] Food Quality Technician: Phi Leo M.D. [place] [facility] Acute pain 10/22/2013 01/01/2014 Overview: DC on prn Percolone and wean Nodule of right lung 10/22/2013 07/23/2014 Fluid overload 10/21/2013 10/23/2013 Overview: 10/22/2013 fluid overload from surgery - generalized edema and pulm congestion plan - continue gentle diuresis - closely monitor fluid and electrolytes Atelectasis/pleural effusion/volume overload 07/23/2014 Overview: O2 sat 98% on RA. C, DB, PEP and con't to increase activity. Repeat CXR at f/u appt Hypotension 10/20/2013 10/23/2013 Overview: Post op vasoplegia, requiring epi/vaso/levo. off vaso gtt. 10/22/2013 Pressors weaned off overnight. plan - will start low dose BB - continue gentle diuretic Mechanically assisted ventilation 10/20/2013 10/22/2013 Overview: WTE Preoperative testing 10/19/2013 10/26/2013 Overview: CTS: CABG Surgeon: Ruddy Mccartney M.D. Informed Consent Completed: No STS Score: 0.8% Isolated CABG CAD: Yes - CAD on Problem List: Yes Is intended procedure a CABG: Yes - is a beta luis alberto ordered? Yes H & P completed: Yes PA/LAT: Completed CT: N/A MRI: N/A LE US: N/A Cath: Yes - reviewed: Yes Echo:Pending EKG: Pending EF %: P PI's: Pending Carotid: Completed 40-59% bilat Mapping: N/A Dental: N/A PFT's: Pending Basename 10/19/13 0258 WBC 6.47 HB 12.3* HCT 36.7* PLT 217 INR 1.0 CREAT 0.86 UA: PENDING HCG:N/A ABO/ABO Confirmed: PENDING Blood ordered: No SA Swab: Yes - results: Pending Last Dose of Anticoagulation: LD PLAVIX per Epic notes 10/16/13 Op Note: N/A Pacemaker Check: N/A Consults: Interventional Cardiology([facility]HC) DM: Yes, HgbA1c:6.5 on 10/18/13 Cardiac Surgical prep: PENDING SIGNATURE: Elida Campuzano CNP CHECKED BY: RANDI DATE of SERVICE: 10/19/2013 TIME of SERVICE: 9:44 AM SUMMARY 10/17/2013 07/23/2014 Overview: Admission: NSTEMI Echo: 56%, Stage 1 DD, RV nl ECG: SB at 56 Cards: [facility] Cath: LM 80%, LAD 30% prox, RCA 75% distal, RI 50% prox, 40% mid PMH/PSH: CAD, HTN, DM-2 5-6 yrs, HPL, ETOH (6 drinks/day) PAD s/p L superficial femoral/popliteal/posterior tibial artery artherectomy and angioplasty 07/2010 and right femoral artery arterectomy and angioplasty, right popliteal angioplasty 08/2010 on ASA and Plavix (last dose 10/18). Smoker, quit 11/09. Obesity (BMI >34), ? ERASMO? Events: PRBC Surgery 10/20/13: CABG x 3: WRIGHT>LAD, SVG>PDA, SVG>OM1 Echo: 65%, Stage 1 DD, RV normal. Small pericardial effusion w/o signs of tamponade 10/26/13: -SR. Post NSTEMI, Peak TpnT 0.216 -O2 sat 98% on RA -Elevated LFT's trending down, DC on no APAP -Ambulating without difficulty -HTN: DC on BB, Lasix, HEENA-I -Dulcolax prior to DC for BM -HPL: DC on no statin in light of LFT elevation: recommend add when normalize -DC: , from [place], [place], no skilled needs. Request f/u Dr. 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 Hold statin d/t elevated LFT's, resume once normalize Irritated//Inflamed Seborrheic Keratosis 011 12/15/2012 Actinic Keratoses (Premalignant AK's) 11/05/2010 01/01/2014 Actinic Damage///Sun-damaged skin 11/05/2010 12/15/2012 Personal history of other malignant neoplasm of skin 11/05/2010 12/15/2012 Melanocytic nevus of trunk 11/05/201002/14 Solar Lentigines 11/05/2010 12/15/2012 Seborrheic Keratoses 11/05/2010 12/15/2012 Skin tag 11/05/2010 12/15/2012 Pollack angioma 11/05/2010 12/15/2012 Surgical Scars 11/05/2010 12/15/2012 Nonspecific abnormal results of liver function s tudy 04/29/2008 12/13/2011 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/29/200701/27 BPH without obstruction/lower urinary tract symp toms 12/29/2007 02/21/2018 Obesity, unspecified 12/29/2007 02/15/2016 Dermatophytosis of nail 12/29/2007 07/23/20 14 documented as of this encounter (statuses as of 10/01/2022) [facility] [place]10-26-2018 History of Past illness Narrative* Problem Noted Date Resolved Date Obesity, Class II, BMI 35-39.9 08/22/2018 1 PVD (peripheral vascular disease) 05/24/2016 02/21/2018 Solar Lentigines 12/18/2013 02/15/2016 Other seborrheic keratosis 12/18/201301/21 Pollack angioma 12/18/2013 02/15/2016 DVT of leg (deep venous thrombosis) 11/16/2013 07/23/2014 Post-operative state 11/16/2013 01/01/2014 Postoperative anemia 10/25/2013 07/23/2014 Overview: Transfused on 10/25 1 U PRBC. H&H 9.2/26.3. DC on diuretic taper for dilutional component and MVI with iron and repeat as outpt Elevated LFTs 10/23/2013 01/01/2014 Overview: ALT/AST trending down 124/214. TB rising 1.8. DC on no APAP and add Lipitor 80 for post NSTEMI when LFTs normalize DISPOSITION AND FOLLOW-UP 10/23/20132013 Overview: 63 y/o M, lives in [place], [place]. No skilled needs. 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 Phi Heredia for new cards and Preventive cards and Preventive Nutrition. Primary Care: Sher Jules MD [address] [facility] [address] Food Quality Technician: Phi Leo M.D. [place] [facility] Acute pain 10/22/2013 01/01/2014 Overview: DC on prn Percolone and wean Nodule of right lung 10/22/2013 07/23/2014 Fluid overload 10/21/2013 10/23/2013 Overview: 10/22/2013 fluid overload from surgery - generalized edema and pulm congestion plan - continue gentle diuresis - closely monitor fluid and electrolytes Atelectasis/pleural effusion/volume overload 07/23/2014 Overview: O2 sat 98% on RA. C, DB, PEP and con't to increase activity. Repeat CXR at f/u appt Hypotension 10/20/2013 10/23/2013 Overview: Post op vasoplegia, requiring epi/vaso/levo. off vaso gtt. 10/22/2013 Pressors weaned off overnight. plan - will start low dose BB - continue gentle diuretic Mechanically assisted ventilation 10/20/2013 10/22/2013 Overview: WTE Preoperative testing 10/19/2013 10/26/2013 Overview: CTS: CABG Surgeon: Ruddy Mccartney M.D. Informed Consent Completed: No STS Score: 0.8% Isolated CABG CAD: Yes - CAD on Problem List: Yes Is intended procedure a CABG: Yes - is a beta luis alberto ordered? Yes H & P completed: Yes PA/LAT: Completed CT: N/A MRI: N/A LE US: N/A Cath: Yes - reviewed: Yes Echo:Pending EKG: Pending EF %: P PI's: Pending Carotid: Completed 40-59% bilat Mapping: N/A Dental: N/A PFT's: Pending Basename 10/19/13 0258 WBC 6.47 HB 12.3* HCT 36.7* PLT 217 INR 1.0 CREAT 0.86 UA: PENDING HCG:N/A ABO/ABO Confirmed: PENDING Blood ordered: No SA Swab: Yes - results: Pending Last Dose of Anticoagulation: LD PLAVIX per Epic notes 10/16/13 Op Note: N/A Pacemaker Check: N/A Consults: Interventional Cardiology(LHC) DM: Yes, HgbA1c:6.5 on 10/18/13 Cardiac Surgical prep: PENDING SIGNATURE: Elida Campuzano CNP CHECKED BY: RANDI DATE of SERVICE: 10/19/2013 TIME of SERVICE: 9:44 AM SUMMARY 10/17/2013 07/23/2014 Overview: Admission: NSTEMI Echo: 56%, Stage 1 DD, RV nl ECG: SB at 56 Cards: [facility] Cath: LM 80%, LAD 30% prox, RCA 75% distal, RI 50% prox, 40% mid PMH/PSH: CAD, HTN, DM-2 5-6 yrs, HPL, ETOH (6 drinks/day) PAD s/p L superficial femoral/popliteal/posterior tibial artery artherectomy and angioplasty 07/2010 and right femoral artery arterectomy and angioplasty, right popliteal angioplasty 08/2010 on ASA and Plavix (last dose 10/18). Smoker, quit 11/09. Obesity (BMI >34), ? ERASMO? Events: PRBC Surgery 10/20/13: CABG x 3: WRIGHT>LAD, SVG>PDA, SVG>OM1 Echo: 65%, Stage 1 DD, RV normal. Small pericardial effusion w/o signs of tamponade 10/26/13: -SR. Post NSTEMI, Peak TpnT 0.216 -O2 sat 98% on RA -Elevated LFT's trending down, DC on no APAP -Ambulating without difficulty -HTN: DC on BB, Lasix, HEENA-I -Dulcolax prior to DC for BM -HPL: DC on no statin in light of LFT elevation: recommend add when normalize -DC: , from [place], [place], no skilled needs. Request f/u Dr. 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 Hold statin d/t elevated LFT's, resume once normalize Irritated//Inflamed Seborrheic Keratosis 011 12/15/2012 Actinic Keratoses (Premalignant AK's) 11/05/2010 01/01/2014 Actinic Damage///Sun-damaged skin 11/05/2010 12/15/2012 Personal history of other malignant neoplasm of skin 11/05/2010 12/15/2012 Melanocytic nevus of trunk 11/05/201002/14 Solar Lentigines 11/05/2010 12/15/2012 Seborrheic Keratoses 11/05/2010 12/15/2012 Skin tag 11/05/2010 12/15/2012 Pollack angioma 11/05/2010 12/15/2012 Surgical Scars 11/05/2010 12/15/2012 Nonspecific abnormal results of liver function s tudy 04/29/2008 12/13/2011 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/29/200701/27 BPH without obstruction/lower urinary tract symp toms 12/29/2007 02/21/2018 Obesity, unspecified 12/29/2007 02/15/2016 Dermatophytosis of nail 12/29/2007 07/23/20 14 documented as of this encounter (statuses as of 10/03/2022) [facility] [place]10-26-2018 History of Past illness Narrative* Problem Noted Date Resolved Date Obesity, Class II, BMI 35-39.9 08/22/2018 1 PVD (peripheral vascular disease) 05/24/2016 02/21/2018 Solar Lentigines 12/18/2013 02/15/2016 Other seborrheic keratosis 12/18/201301/21 Pollack angioma 12/18/2013 02/15/2016 DVT of leg (deep venous thrombosis) 11/16/2013 07/23/2014 Post-operative state 11/16/2013 01/01/2014 Postoperative anemia 10/25/2013 07/23/2014 Overview: Transfused on 10/25 1 U PRBC. H&H 9.2/26.3. DC on diuretic taper for dilutional component and MVI with iron and repeat as outpt Elevated LFTs 10/23/2013 01/01/2014 Overview: ALT/AST trending down 124/214. TB rising 1.8. DC on no APAP and add Lipitor 80 for post NSTEMI when LFTs normalize DISPOSITION AND FOLLOW-UP 10/23/20132013 Overview: 63 y/o M, lives in [place], [place]. No skilled needs. 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 Phi Heredia for new cards and Preventive cards and Preventive Nutrition. Primary Care: Sher Jules MD [address] [facility] [id number] Food Quality Technician: Phi Leo M.D. [place] [facility] Acute pain 10/22/2013 01/01/2014 Overview: DC on prn Percolone and wean Nodule of right lung 10/22/2013 07/23/2014 Fluid overload 10/21/2013 10/23/2013 Overview: 10/22/2013 fluid overload from surgery - generalized edema and pulm congestion plan - continue gentle diuresis - closely monitor fluid and electrolytes Atelectasis/pleural effusion/volume overload 07/23/2014 Overview: O2 sat 98% on RA. C, DB, PEP and con't to increase activity. Repeat CXR at f/u appt Hypotension 10/20/2013 10/23/2013 Overview: Post op vasoplegia, requiring epi/vaso/levo. off vaso gtt. 10/22/2013 Pressors weaned off overnight. plan - will start low dose BB - continue gentle diuretic Mechanically assisted ventilation 10/20/2013 10/22/2013 Overview: WTE Preoperative testing 10/19/2013 10/26/2013 Overview: CTS: CABG Surgeon: Ruddy Mccartney M.D. Informed Consent Completed: No STS Score: 0.8% Isolated CABG CAD: Yes - CAD on Problem List: Yes Is intended procedure a CABG: Yes - is a beta luis alberto ordered? Yes H & P completed: Yes PA/LAT: Completed CT: N/A MRI: N/A LE US: N/A Cath: Yes - reviewed: Yes Echo:Pending EKG: Pending EF %: P PI's: Pending Carotid: Completed 40-59% bilat Mapping: N/A Dental: N/A PFT's: Pending Basename 10/19/13 0258 WBC 6.47 HB 12.3* HCT 36.7* PLT 217 INR 1.0 CREAT 0.86 UA: PENDING HCG:N/A ABO/ABO Confirmed: PENDING Blood ordered: No SA Swab: Yes - results: Pending Last Dose of Anticoagulation: LD PLAVIX per Epic notes 10/16/13 Op Note: N/A Pacemaker Check: N/A Consults: Interventional Cardiology(C) DM: Yes, HgbA1c:6.5 on 10/18/13 Cardiac Surgical prep: PENDING SIGNATURE: Elida Campuzano CNP CHECKED BY: RANDI DATE of SERVICE: 10/19/2013 TIME of SERVICE: 9:44 AM SUMMARY 10/17/2013 07/23/2014 Overview: Admission: NSTEMI Echo: 56%, Stage 1 DD, RV nl ECG: SB at 56 Cards: [facility] Cath: LM 80%, LAD 30% prox, RCA 75% distal, RI 50% prox, 40% mid PMH/PSH: CAD, HTN, DM-2 5-6 yrs, HPL, ETOH (6 drinks/day) PAD s/p L superficial femoral/popliteal/posterior tibial artery artherectomy and angioplasty 07/2010 and right femoral artery arterectomy and angioplasty, right popliteal angioplasty 08/2010 on ASA and Plavix (last dose 10/18). Smoker, quit 11/09. Obesity (BMI >34), ? ERASMO? Events: PRBC Surgery 10/20/13: CABG x 3: WRIGHT>LAD, SVG>PDA, SVG>OM1 Echo: 65%, Stage 1 DD, RV normal. Small pericardial effusion w/o signs of tamponade 10/26/13: -SR. Post NSTEMI, Peak TpnT 0.216 -O2 sat 98% on RA -Elevated LFT's trending down, DC on no APAP -Ambulating without difficulty -HTN: DC on BB, Lasix, HEENA-I -Dulcolax prior to DC for BM -HPL: DC on no statin in light of LFT elevation: recommend add when normalize -DC: , from [place], [place], no skilled needs. Request f/u Dr. 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 Hold statin d/t elevated LFT's, resume once normalize Irritated//Inflamed Seborrheic Keratosis 011 12/15/2012 Actinic Keratoses (Premalignant AK's) 11/05/2010 01/01/2014 Actinic Damage///Sun-damaged skin 11/05/2010 12/15/2012 Personal history of other malignant neoplasm of skin 11/05/2010 12/15/2012 Melanocytic nevus of trunk 11/05/201002/14 Solar Lentigines 11/05/2010 12/15/2012 Seborrheic Keratoses 11/05/2010 12/15/2012 Skin tag 11/05/2010 12/15/2012 Pollack angioma 11/05/2010 12/15/2012 Surgical Scars 11/05/2010 12/15/2012 Nonspecific abnormal results of liver function s tudy 04/29/2008 12/13/2011 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/29/200701/27 BPH without obstruction/lower urinary tract symp toms 12/29/2007 02/21/2018 Obesity, unspecified 12/29/2007 02/15/2016 Dermatophytosis of nail 12/29/2007 07/23/20 14 documented as of this encounter (statuses as of 10/15/2022) [facility] [place]-2018 History of Past illness Narrative* Problem Noted Date Resolved Date Obesity, Class II, BMI 35-39.9 08/22/2018 1 PVD (peripheral vascular disease) 05/24/2016 02/21/2018 Solar Lentigines 12/18/2013 02/15/2016 Other seborrheic keratosis 12/18/201301/21 Pollack angioma 12/18/2013 02/15/2016 DVT of leg (deep venous thrombosis) 11/16/2013 07/23/2014 Post-operative state 11/16/2013 01/01/2014 Postoperative anemia 10/25/2013 07/23/2014 Overview: Transfused on 10/25 1 U PRBC. H&H 9.2.3. DC on diuretic taper for dilutional component and MVI with iron and repeat as outpt Elevated LFTs 10/23/2013 01/01/2014 Overview: ALT/AST trending down 124/214. TB rising 1.8. DC on no APAP and add Lipitor 80 for post NSTEMI when LFTs normalize DISPOSITION AND FOLLOW-UP 10/23/20132013 Overview: 63 y/o M, lives in [place], [place]. No skilled needs. 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 Phi Heredia for new cards and Preventive cards and Preventive Nutrition. Primary Care: Sher Jules MD [address] [facility] [id number] Food Quality Technician: Phi Leo M.D. [place] [facility] Acute pain 10/22/2013 01/01/2014 Overview: DC on prn Percolone and wean Nodule of right lung 10/22/2013 07/23/2014 Fluid overload 10/21/2013 10/23/2013 Overview: 10/22/2013 fluid overload from surgery - generalized edema and pulm congestion plan - continue gentle diuresis - closely monitor fluid and electrolytes Atelectasis/pleural effusion/volume overload 07/23/2014 Overview: O2 sat 98% on RA. C, DB, PEP and con't to increase activity. Repeat CXR at f/u appt Hypotension 10/20/2013 10/23/2013 Overview: Post op vasoplegia, requiring epi/vaso/levo. off vaso gtt. 10/22/2013 Pressors weaned off overnight. plan - will start low dose BB - continue gentle diuretic Mechanically assisted ventilation 10/20/2013 10/22/2013 Overview: WTE Preoperative testing 10/19/2013 10/26/2013 Overview: CTS: CABG Surgeon: Ruddy Mccartney M.D. Informed Consent Completed: No STS Score: 0.8% Isolated CABG CAD: Yes - CAD on Problem List: Yes Is intended procedure a CABG: Yes - is a beta luis alberto ordered? Yes H & P completed: Yes PA/LAT: Completed CT: N/A MRI: N/A LE US: N/A Cath: Yes - reviewed: Yes Echo:Pending EKG: Pending EF %: P PI's: Pending Carotid: Completed 40-59% bilat Mapping: N/A Dental: N/A PFT's: Pending Basename 10/19/13 0258 WBC 6.47 HB 12.3* HCT 36.7* PLT 217 INR 1.0 CREAT 0.86 UA: PENDING HCG:N/A ABO/ABO Confirmed: PENDING Blood ordered: No SA Swab: Yes - results: Pending Last Dose of Anticoagulation: LD PLAVIX per Epic notes 10/16/13 Op Note: N/A Pacemaker Check: N/A Consults: Interventional Cardiology(LHC) DM: Yes, HgbA1c:6.5 on 10/18/13 Cardiac Surgical prep: PENDING SIGNATURE: Elida Campuzano CNP CHECKED BY: RANDI DATE of SERVICE: 10/19/2013 TIME of SERVICE: 9:44 AM SUMMARY 10/17/2013 07/23/2014 Overview: Admission: NSTEMI Echo: 56%, Stage 1 DD, RV nl ECG: SB at 56 Cards: [facility] Cath: LM 80%, LAD 30% prox, RCA 75% distal, RI 50% prox, 40% mid PMH/PSH: CAD, HTN, DM-2 5-6 yrs, HPL, ETOH (6 drinks/day) PAD s/p L superficial femoral/popliteal/posterior tibial artery artherectomy and angioplasty 07/2010 and right femoral artery arterectomy and angioplasty, right popliteal angioplasty 08/2010 on ASA and Plavix (last dose 10/18). Smoker, quit 11/09. Obesity (BMI >34), ? ERASMO? Events: PRBC Surgery 10/20/13: CABG x 3: WRIGHT>LAD, SVG>PDA, SVG>OM1 Echo: 65%, Stage 1 DD, RV normal. Small pericardial effusion w/o signs of tamponade 10/26/13: -SR. Post NSTEMI, Peak TpnT 0.216 -O2 sat 98% on RA -Elevated LFT's trending down, DC on no APAP -Ambulating without difficulty -HTN: DC on BB, Lasix, HEENA-I -Dulcolax prior to DC for BM -HPL: DC on no statin in light of LFT elevation: recommend add when normalize -DC: , from [place], [place], no skilled needs. Request f/u Dr. 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 Hold statin d/t elevated LFT's, resume once normalize Irritated//Inflamed Seborrheic Keratosis 011 12/15/2012 Actinic Keratoses (Premalignant AK's) 11/05/2010 01/01/2014 Actinic Damage///Sun-damaged skin 11/05/2010 12/15/2012 Personal history of other malignant neoplasm of skin 11/05/2010 12/15/2012 Melanocytic nevus of trunk 11/05/201002/14 Solar Lentigines 11/05/2010 12/15/2012 Seborrheic Keratoses 11/05/2010 12/15/2012 Skin tag 11/05/2010 12/15/2012 Pollack angioma 11/05/2010 12/15/2012 Surgical Scars 11/05/2010 12/15/2012 Nonspecific abnormal results of liver function s tudy 04/29/2008 12/13/2011 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/29/200701/27 BPH without obstruction/lower urinary tract symp toms 12/29/2007 02/21/2018 Obesity, unspecified 12/29/2007 02/15/2016 Dermatophytosis of nail 12/29/2007 07/23/20 14 documented as of this encounter (statuses as of 10/30/2022) [facility] [place]2018 History of Past illness Narrative* Problem Noted Date Resolved Date Obesity, Class II, BMI 35-39.9 08/22/2018 1 PVD (peripheral vascular disease) 05/24/2016 02/21/2018 Solar Lentigines 12/18/2013 02/15/2016 Other seborrheic keratosis 12/18/201301/21 Pollack angioma 12/18/2013 02/15/2016 DVT of leg (deep venous thrombosis) 11/16/2013 07/23/2014 Post-operative state 11/16/2013 01/01/2014 Postoperative anemia 10/25/2013 07/23/2014 Overview: Transfused on 10/25 1 U PRBC. H&H 9.2/.3. DC on diuretic taper for dilutional component and MVI with iron and repeat as outpt Elevated LFTs 10/23/2013 01/01/2014 Overview: ALT/AST trending down 124/214. TB rising 1.8. DC on no APAP and add Lipitor 80 for post NSTEMI when LFTs normalize DISPOSITION AND FOLLOW-UP 10/23/20132013 Overview: 63 y/o M, lives in [place], [place]. No skilled needs. 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 Phi Heredia for new cards and Preventive cards and Preventive Nutrition. Primary Care: Sher Jules MD [address] [facility] [id number] Food Quality Technician: Phi Leo M.D. [place] [facility] Acute pain 10/22/2013 01/01/2014 Overview: DC on prn Percolone and wean Nodule of right lung 10/22/2013 07/23/2014 Fluid overload 10/21/2013 10/23/2013 Overview: 10/22/2013 fluid overload from surgery - generalized edema and pulm congestion plan - continue gentle diuresis - closely monitor fluid and electrolytes Atelectasis/pleural effusion/volume overload 07/23/2014 Overview: O2 sat 98% on RA. C, DB, PEP and con't to increase activity. Repeat CXR at f/u appt Hypotension 10/20/2013 10/23/2013 Overview: Post op vasoplegia, requiring epi/vaso/levo. off vaso gtt. 10/22/2013 Pressors weaned off overnight. plan - will start low dose BB - continue gentle diuretic Mechanically assisted ventilation 10/20/2013 10/22/2013 Overview: WTE Preoperative testing 10/19/2013 10/26/2013 Overview: CTS: CABG Surgeon: Ruddy Mccartney M.D. Informed Consent Completed: No STS Score: 0.8% Isolated CABG CAD: Yes - CAD on Problem List: Yes Is intended procedure a CABG: Yes - is a beta luis alberto ordered? Yes H & P completed: Yes PA/LAT: Completed CT: N/A MRI: N/A LE US: N/A Cath: Yes - reviewed: Yes Echo:Pending EKG: Pending EF %: P PI's: Pending Carotid: Completed 40-59% bilat Mapping: N/A Dental: N/A PFT's: Pending Basename 10/19/13 0258 WBC 6.47 HB 12.3* HCT 36.7* PLT 217 INR 1.0 CREAT 0.86 UA: PENDING HCG:N/A ABO/ABO Confirmed: PENDING Blood ordered: No SA Swab: Yes - results: Pending Last Dose of Anticoagulation: LD PLAVIX per Epic notes 10/16/13 Op Note: N/A Pacemaker Check: N/A Consults: Interventional Cardiology(LHC) DM: Yes, HgbA1c:6.5 on 10/18/13 Cardiac Surgical prep: PENDING SIGNATURE: Elida Campuzano CNP CHECKED BY: RANDI DATE of SERVICE: 10/19/2013 TIME of SERVICE: 9:44 AM SUMMARY 10/17/2013 07/23/2014 Overview: Admission: NSTEMI Echo: 56%, Stage 1 DD, RV nl ECG: SB at 56 Cards: [facility] Cath: LM 80%, LAD 30% prox, RCA 75% distal, RI 50% prox, 40% mid PMH/PSH: CAD, HTN, DM-2 5-6 yrs, HPL, ETOH (6 drinks/day) PAD s/p L superficial femoral/popliteal/posterior tibial artery artherectomy and angioplasty 07/2010 and right femoral artery arterectomy and angioplasty, right popliteal angioplasty 08/2010 on ASA and Plavix (last dose 10/18). Smoker, quit 11/09. Obesity (BMI >34), ? ERASMO? Events: PRBC Surgery 10/20/13: CABG x 3: WRIGHT>LAD, SVG>PDA, SVG>OM1 Echo: 65%, Stage 1 DD, RV normal. Small pericardial effusion w/o signs of tamponade 10/26/13: -SR. Post NSTEMI, Peak TpnT 0.216 -O2 sat 98% on RA -Elevated LFT's trending down, DC on no APAP -Ambulating without difficulty -HTN: DC on BB, Lasix, HEENA-I -Dulcolax prior to DC for BM -HPL: DC on no statin in light of LFT elevation: recommend add when normalize -DC: , from [place], no skilled needs. Request f/u Dr. 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 Hold statin d/t elevated LFT's, resume once normalize Irritated//Inflamed Seborrheic Keratosis 011 12/15/2012 Actinic Keratoses (Premalignant AK's) 11/05/2010 01/01/2014 Actinic Damage///Sun-damaged skin 11/05/2010 12/15/2012 Personal history of other malignant neoplasm of skin 11/05/2010 12/15/2012 Melanocytic nevus of trunk 11/05/201002/14 Solar Lentigines 11/05/2010 12/15/2012 Seborrheic Keratoses 11/05/2010 12/15/2012 Skin tag 11/05/2010 12/15/2012 Pollack angioma 11/05/2010 12/15/2012 Surgical Scars 11/05/2010 12/15/2012 Nonspecific abnormal results of liver function s guevarady 04/29/2008 12/13/2011 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/29/200701/27 BPH without obstruction/lower urinary tract symp toms 12/29/2007 02/21/2018 Obesity, unspecified 12/29/2007 02/15/2016 Dermatophytosis of nail 12/29/2007 07/23/20 14 documented as of this encounter (statuses as of 10/30/2022) [facility] [place]2018 History of Past illness Narrative* Problem Noted Date Resolved Date Obesity, Class II, BMI 35-39.9 08/22/2018 1 PVD (peripheral vascular disease) 05/24/2016 02/21/2018 Solar Lentigines 12/18/2013 02/15/2016 Other seborrheic keratosis 12/18/201301/21 Pollack angioma 12/18/2013 02/15/2016 DVT of leg (deep venous thrombosis) 11/16/2013 07/23/2014 Post-operative state 11/16/2013 01/01/2014 Postoperative anemia 10/25/2013 07/23/2014 Overview: Transfused on 10/25 1 U PRBC. H&H 9.2/26.3. DC on diuretic taper for dilutional component and MVI with iron and repeat as outpt Elevated LFTs 10/23/2013 01/01/2014 Overview: ALT/AST trending down 124/214. TB rising 1.8. DC on no APAP and add Lipitor 80 for post NSTEMI when LFTs normalize DISPOSITION AND FOLLOW-UP 10/23/20132013 Overview: 63 y/o M, lives in [place], [place]. No skilled needs. 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 Phi Heredia for new cards and Preventive cards and Preventive Nutrition. Primary Care: Sher Jules MD [address] [facility] [id number] Food Quality Technician: Phi Leo M.D. [facility] Cardiology Acute pain 10/22/2013 01/01/2014 Overview: DC on prn Percolone and wean Nodule of right lung 10/22/2013 07/23/2014 Fluid overload 10/21/2013 10/23/2013 Overview: 10/22/2013 fluid overload from surgery - generalized edema and pulm congestion plan - continue gentle diuresis - closely monitor fluid and electrolytes Atelectasis/pleural effusion/volume overload 07/23/2014 Overview: O2 sat 98% on RA. C, DB, PEP and con't to increase activity. Repeat CXR at f/u appt Hypotension 10/20/2013 10/23/2013 Overview: Post op vasoplegia, requiring epi/vaso/levo. off vaso gtt. 10/22/2013 Pressors weaned off overnight. plan - will start low dose BB - continue gentle diuretic Mechanically assisted ventilation 10/20/2013 10/22/2013 Overview: WTE Preoperative testing 10/19/2013 10/26/2013 Overview: CTS: CABG Surgeon: Ruddy Mccartney M.D. Informed Consent Completed: No STS Score: 0.8% Isolated CABG CAD: Yes - CAD on Problem List: Yes Is intended procedure a CABG: Yes - is a beta luis alberto ordered? Yes H & P completed: Yes PA/LAT: Completed CT: N/A MRI: N/A LE US: N/A Cath: Yes - reviewed: Yes Echo:Pending EKG: Pending EF %: P PI's: Pending Carotid: Completed 40-59% bilat Mapping: N/A Dental: N/A PFT's: Pending Basename 10/19/13 0258 WBC 6.47 HB 12.3* HCT 36.7* PLT 217 INR 1.0 CREAT 0.86 UA: PENDING HCG:N/A ABO/ABO Confirmed: PENDING Blood ordered: No SA Swab: Yes - results: Pending Last Dose of Anticoagulation: LD PLAVIX per Epic notes 10/16/13 Op Note: N/A Pacemaker Check: N/A Consults: Interventional Cardiology(LHC) DM: Yes, HgbA1c:6.5 on 10/18/13 Cardiac Surgical prep: PENDING SIGNATURE: Elida Campuzano CNP CHECKED BY: RANDI DATE of SERVICE: 10/19/2013 TIME of SERVICE: 9:44 AM SUMMARY 10/17/2013 07/23/2014 Overview: Admission: NSTEMI Echo: 56%, Stage 1 DD, RV nl ECG: SB at 56 Cards: [facility] Cath: LM 80%, LAD 30% prox, RCA 75% distal, RI 50% prox, 40% mid PMH/PSH: CAD, HTN, DM-2 5-6 yrs, HPL, ETOH (6 drinks/day) PAD s/p L superficial femoral/popliteal/posterior tibial artery artherectomy and angioplasty 07/2010 and right femoral artery arterectomy and angioplasty, right popliteal angioplasty 08/2010 on ASA and Plavix (last dose 10/18). Smoker, quit 11/09. Obesity (BMI >34), ? ERASMO? Events: PRBC Surgery 10/20/13: CABG x 3: WRIGHT>LAD, SVG>PDA, SVG>OM1 Echo: 65%, Stage 1 DD, RV normal. Small pericardial effusion w/o signs of tamponade 10/26/13: -SR. Post NSTEMI, Peak TpnT 0.216 -O2 sat 98% on RA -Elevated LFT's trending down, DC on no APAP -Ambulating without difficulty -HTN: DC on BB, Lasix, HEENA-I -Dulcolax prior to DC for BM -HPL: DC on no statin in light of LFT elevation: recommend add when normalize -DC: , from [place], [place], no skilled needs. Request f/u Dr. 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 Hold statin d/t elevated LFT's, resume once normalize Irritated//Inflamed Seborrheic Keratosis 011 12/15/2012 Actinic Keratoses (Premalignant AK's) 11/05/2010 01/01/2014 Actinic Damage///Sun-damaged skin 11/05/2010 12/15/2012 Personal history of other malignant neoplasm of skin 11/05/2010 12/15/2012 Melanocytic nevus of trunk 11/05/201002/14 Solar Lentigines 11/05/2010 12/15/2012 Seborrheic Keratoses 11/05/2010 12/15/2012 Skin tag 11/05/2010 12/15/2012 Pollack angioma 11/05/2010 12/15/2012 Surgical Scars 11/05/2010 12/15/2012 Nonspecific abnormal results of liver function s tudy 04/29/2008 12/13/2011 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/29/200701/27 BPH without obstruction/lower urinary tract symp toms 12/29/2007 02/21/2018 Obesity, unspecified 12/29/2007 02/15/2016 Dermatophytosis of nail 12/29/2007 07/23/20 14 documented as of this encounter (statuses as of 12/13/2022) [facility] [place]10-26-2018 History of Past illness Narrative* Problem Noted Date Resolved Date Obesity, Class II, BMI 35-39.9 08/22/2018 1 PVD (peripheral vascular disease) 05/24/2016 02/21/2018 Solar Lentigines 12/18/2013 02/15/2016 Other seborrheic keratosis 12/18/201301/21 Pollack angioma 12/18/2013 02/15/2016 DVT of leg (deep venous thrombosis) 11/16/2013 07/23/2014 Post-operative state 11/16/2013 01/01/2014 Postoperative anemia 10/25/2013 07/23/2014 Overview: Transfused on 10/25 1 U PRBC. H&H 9.2/26.3. DC on diuretic taper for dilutional component and MVI with iron and repeat as outpt Elevated LFTs 10/23/2013 01/01/2014 Overview: ALT/AST trending down 124/214. TB rising 1.8. DC on no APAP and add Lipitor 80 for post NSTEMI when LFTs normalize DISPOSITION AND FOLLOW-UP 10/23/20132013 Overview: 63 y/o M, lives in [place], [place]. No skilled needs. 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 Phi Heredia for new cards and Preventive cards and Preventive Nutrition. Primary Care: Sher Jules MD [address] [facility] [id number] Food Quality Technician: Phi Leo M.D. [place] [facility] Acute pain 10/22/2013 01/01/2014 Overview: DC on prn Percolone and wean Nodule of right lung 10/22/2013 07/23/2014 Fluid overload 10/21/2013 10/23/2013 Overview: 10/22/2013 fluid overload from surgery - generalized edema and pulm congestion plan - continue gentle diuresis - closely monitor fluid and electrolytes Atelectasis/pleural effusion/volume overload 07/23/2014 Overview: O2 sat 98% on RA. C, DB, PEP and con't to increase activity. Repeat CXR at f/u appt Hypotension 10/20/2013 10/23/2013 Overview: Post op vasoplegia, requiring epi/vaso/levo. off vaso gtt. 10/22/2013 Pressors weaned off overnight. plan - will start low dose BB - continue gentle diuretic Mechanically assisted ventilation 10/20/2013 10/22/2013 Overview: WTE Preoperative testing 10/19/2013 10/26/2013 Overview: CTS: CABG Surgeon: Ruddy Mccartney M.D. Informed Consent Completed: No STS Score: 0.8% Isolated CABG CAD: Yes - CAD on Problem List: Yes Is intended procedure a CABG: Yes - is a beta luis alberto ordered? Yes H & P completed: Yes PA/LAT: Completed CT: N/A MRI: N/A LE US: N/A Cath: Yes - reviewed: Yes Echo:Pending EKG: Pending EF %: P PI's: Pending Carotid: Completed 40-59% bilat Mapping: N/A Dental: N/A PFT's: Pending Basename 10/19/13 0258 WBC 6.47 HB 12.3* HCT 36.7* PLT 217 INR 1.0 CREAT 0.86 UA: PENDING HCG:N/A ABO/ABO Confirmed: PENDING Blood ordered: No SA Swab: Yes - results: Pending Last Dose of Anticoagulation: LD PLAVIX per Epic notes 10/16/13 Op Note: N/A Pacemaker Check: N/A Consults: Interventional Cardiology(LHC) DM: Yes, HgbA1c:6.5 on 10/18/13 Cardiac Surgical prep: PENDING SIGNATURE: Elida Campuzano CNP CHECKED BY: RANDI DATE of SERVICE: 10/19/2013 TIME of SERVICE: 9:44 AM SUMMARY 10/17/2013 07/23/2014 Overview: Admission: NSTEMI Echo: 56%, Stage 1 DD, RV nl ECG: SB at 56 Cards: [facility] Cath: LM 80%, LAD 30% prox, RCA 75% distal, RI 50% prox, 40% mid PMH/PSH: CAD, HTN, DM-2 5-6 yrs, HPL, ETOH (6 drinks/day) PAD s/p L superficial femoral/popliteal/posterior tibial artery artherectomy and angioplasty 07/2010 and right femoral artery arterectomy and angioplasty, right popliteal angioplasty 08/2010 on ASA and Plavix (last dose 10/18). Smoker, quit 11/09. Obesity (BMI >34), ? ERASMO? Events: PRBC Surgery 10/20/13: CABG x 3: WRIGHT>LAD, SVG>PDA, SVG>OM1 Echo: 65%, Stage 1 DD, RV normal. Small pericardial effusion w/o signs of tamponade 10/26/13: -SR. Post NSTEMI, Peak TpnT 0.216 -O2 sat 98% on RA -Elevated LFT's trending down, DC on no APAP -Ambulating without difficulty -HTN: DC on BB, Lasix, HEENA-I -Dulcolax prior to DC for BM -HPL: DC on no statin in light of LFT elevation: recommend add when normalize -DC: , from [place], [place], no skilled needs. Request f/u Dr. 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 Hold statin d/t elevated LFT's, resume once normalize Irritated//Inflamed Seborrheic Keratosis 011 12/15/2012 Actinic Keratoses (Premalignant AK's) 11/05/2010 01/01/2014 Actinic Damage///Sun-damaged skin 11/05/2010 12/15/2012 Personal history of other malignant neoplasm of skin 11/05/2010 12/15/2012 Melanocytic nevus of trunk 11/05/201002/14 Solar Lentigines 11/05/2010 12/15/2012 Seborrheic Keratoses 11/05/2010 12/15/2012 Skin tag 11/05/2010 12/15/2012 Pollack angioma 11/05/2010 12/15/2012 Surgical Scars 11/05/2010 12/15/2012 Nonspecific abnormal results of liver function s tudy 04/29/2008 12/13/2011 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/29/200701/27 BPH without obstruction/lower urinary tract symp toms 12/29/2007 02/21/2018 Obesity, unspecified 12/29/2007 02/15/2016 Dermatophytosis of nail 12/29/2007 09/26/20 14 documented as of this encounter (statuses as of 12/14/2022) [facility] [place]10-26-2018 History of Past illness Narrative* Problem Noted Date Resolved Date Obesity, Class II, BMI 35-39.9 08/22/2018 1 PVD (peripheral vascular disease) 05/24/2016 02/21/2018 Solar Lentigines 12/18/2013 02/15/2016 Other seborrheic keratosis 12/18/201301/21 Pollack angioma 12/18/2013 02/15/2016 DVT of leg (deep venous thrombosis) 11/16/2013 07/23/2014 Post-operative state 11/16/2013 01/01/2014 Postoperative anemia 10/25/2013 07/23/2014 Overview: Transfused on 10/25 1 U PRBC. H&H 9.2/.3. DC on diuretic taper for dilutional component and MVI with iron and repeat as outpt Elevated LFTs 10/23/2013 01/01/2014 Overview: ALT/AST trending down 124/214. TB rising 1.8. DC on no APAP and add Lipitor 80 for post NSTEMI when LFTs normalize DISPOSITION AND FOLLOW-UP 10/23/20132013 Overview: 63 y/o M, lives in [place], [place]. No skilled needs. 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 Phi Heredia for new cards and Preventive cards and Preventive Nutrition. Primary Care: Sher Jules MD [address] [facility] [id number] Food Quality Technician: Phi Leo M.D. [place] [facility] Acute pain 10/22/2013 01/01/2014 Overview: DC on prn Percolone and wean Nodule of right lung 10/22/2013 07/23/2014 Fluid overload 10/21/2013 10/23/2013 Overview: 10/22/2013 fluid overload from surgery - generalized edema and pulm congestion plan - continue gentle diuresis - closely monitor fluid and electrolytes Atelectasis/pleural effusion/volume overload 07/23/2014 Overview: O2 sat 98% on RA. C, DB, PEP and con't to increase activity. Repeat CXR at f/u appt Hypotension 10/20/2013 10/23/2013 Overview: Post op vasoplegia, requiring epi/vaso/levo. off vaso gtt. 10/22/2013 Pressors weaned off overnight. plan - will start low dose BB - continue gentle diuretic Mechanically assisted ventilation 10/20/2013 10/22/2013 Overview: WTE Preoperative testing 10/19/2013 10/26/2013 Overview: CTS: CABG Surgeon: Ruddy Mccartney M.D. Informed Consent Completed: No STS Score: 0.8% Isolated CABG CAD: Yes - CAD on Problem List: Yes Is intended procedure a CABG: Yes - is a beta luis alberto ordered? Yes H & P completed: Yes PA/LAT: Completed CT: N/A MRI: N/A LE US: N/A Cath: Yes - reviewed: Yes Echo:Pending EKG: Pending EF %: P PI's: Pending Carotid: Completed 40-59% bilat Mapping: N/A Dental: N/A PFT's: Pending Basename 10/19/13 0258 WBC 6.47 HB 12.3* HCT 36.7* PLT 217 INR 1.0 CREAT 0.86 UA: PENDING HCG:N/A ABO/ABO Confirmed: PENDING Blood ordered: No SA Swab: Yes - results: Pending Last Dose of Anticoagulation: LD PLAVIX per Epic notes 10/16/13 Op Note: N/A Pacemaker Check: N/A Consults: Interventional Cardiology(LHC) DM: Yes, HgbA1c:6.5 on 10/18/13 Cardiac Surgical prep: PENDING SIGNATURE: Elida Campuzano CNP CHECKED BY: RANDI DATE of SERVICE: 10/19/2013 TIME of SERVICE: 9:44 AM SUMMARY 10/17/2013 07/23/2014 Overview: Admission: NSTEMI Echo: 56%, Stage 1 DD, RV nl ECG: SB at 56 Cards: [facility] Cath: LM 80%, LAD 30% prox, RCA 75% distal, RI 50% prox, 40% mid PMH/PSH: CAD, HTN, DM-2 5-6 yrs, HPL, ETOH (6 drinks/day) PAD s/p L superficial femoral/popliteal/posterior tibial artery artherectomy and angioplasty 07/2010 and right femoral artery arterectomy and angioplasty, right popliteal angioplasty 08/2010 on ASA and Plavix (last dose 10/18). Smoker, quit 11/09. Obesity (BMI >34), ? ERASMO? Events: PRBC Surgery 10/20/13: CABG x 3: WRIGHT>LAD, SVG>PDA, SVG>OM1 Echo: 65%, Stage 1 DD, RV normal. Small pericardial effusion w/o signs of tamponade 10/26/13: -SR. Post NSTEMI, Peak TpnT 0.216 -O2 sat 98% on RA -Elevated LFT's trending down, DC on no APAP -Ambulating without difficulty -HTN: DC on BB, Lasix, HEENA-I -Dulcolax prior to DC for BM -HPL: DC on no statin in light of LFT elevation: recommend add when normalize -DC: , from [place], [place], no skilled needs. Request f/u Dr. 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 Hold statin d/t elevated LFT's, resume once normalize Irritated//Inflamed Seborrheic Keratosis 011 12/15/2012 Actinic Keratoses (Premalignant AK's) 11/05/2010 01/01/2014 Actinic Damage///Sun-damaged skin 11/05/2010 12/15/2012 Personal history of other malignant neoplasm of skin 11/05/2010 12/15/2012 Melanocytic nevus of trunk 11/05/201002/14 Solar Lentigines 11/05/2010 12/15/2012 Seborrheic Keratoses 11/05/2010 12/15/2012 Skin tag 11/05/2010 12/15/2012 Pollack angioma 11/05/2010 12/15/2012 Surgical Scars 11/05/2010 12/15/2012 Nonspecific abnormal results of liver function s tudy 04/29/2008 12/13/2011 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/29/200701/27 BPH without obstruction/lower urinary tract symp toms 12/29/2007 02/21/2018 Obesity, unspecified 12/29/2007 02/15/2016 Dermatophytosis of nail 12/29/2007 07/23/20 14 documented as of this encounter (statuses as of 01/02/2023) [facility] [place]-2018 History of Past illness Narrative* Problem Noted Date Resolved Date Obesity, Class II, BMI 35-39.9 08/22/2018 1 PVD (peripheral vascular disease) 05/24/2016 02/21/2018 Solar Lentigines 12/18/2013 02/15/2016 Other seborrheic keratosis 12/18/201301/21 Pollack angioma 12/18/2013 02/15/2016 DVT of leg (deep venous thrombosis) 11/16/2013 07/23/2014 Post-operative state 11/16/2013 01/01/2014 Postoperative anemia 10/25/2013 07/23/2014 Overview: Transfused on 10/25 1 U PRBC. H&H 9.2/26.3. DC on diuretic taper for dilutional component and MVI with iron and repeat as outpt Elevated LFTs 10/23/2013 01/01/2014 Overview: ALT/AST trending down 124/214. TB rising 1.8. DC on no APAP and add Lipitor 80 for post NSTEMI when LFTs normalize DISPOSITION AND FOLLOW-UP 10/23/20132013 Overview: 63 y/o M, lives in [place], [place]. No skilled needs. 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 Phi Heredia for new cards and Preventive cards and Preventive Nutrition. Primary Care: Sher Jules MD [address] [facility] [address] Food Quality Technician: Phi Leo M.D. [place] [facility] Acute pain 10/22/2013 01/01/2014 Overview: DC on prn Percolone and wean Nodule of right lung 10/22/2013 07/23/2014 Fluid overload 10/21/2013 10/23/2013 Overview: 10/22/2013 fluid overload from surgery - generalized edema and pulm congestion plan - continue gentle diuresis - closely monitor fluid and electrolytes Atelectasis/pleural effusion/volume overload 07/23/2014 Overview: O2 sat 98% on RA. C, DB, PEP and con't to increase activity. Repeat CXR at f/u appt Hypotension 10/20/2013 10/23/2013 Overview: Post op vasoplegia, requiring epi/vaso/levo. off vaso gtt. 10/22/2013 Pressors weaned off overnight. plan - will start low dose BB - continue gentle diuretic Mechanically assisted ventilation 10/20/2013 10/22/2013 Overview: WTE Preoperative testing 10/19/2013 10/26/2013 Overview: CTS: CABG Surgeon: Ruddy Mccartney M.D. Informed Consent Completed: No STS Score: 0.8% Isolated CABG CAD: Yes - CAD on Problem List: Yes Is intended procedure a CABG: Yes - is a beta luis alberto ordered? Yes H & P completed: Yes PA/LAT: Completed CT: N/A MRI: N/A LE US: N/A Cath: Yes - reviewed: Yes Echo:Pending EKG: Pending EF %: P PI's: Pending Carotid: Completed 40-59% bilat Mapping: N/A Dental: N/A PFT's: Pending Basename 10/19/13 0258 WBC 6.47 HB 12.3* HCT 36.7* PLT 217 INR 1.0 CREAT 0.86 UA: PENDING HCG:N/A ABO/ABO Confirmed: PENDING Blood ordered: No SA Swab: Yes - results: Pending Last Dose of Anticoagulation: LD PLAVIX per Epic notes 10/16/13 Op Note: N/A Pacemaker Check: N/A Consults: Interventional Cardiology(LHC) DM: Yes, HgbA1c:6.5 on 10/18/13 Cardiac Surgical prep: PENDING SIGNATURE: Elida Campuzano CNP CHECKED BY: RANDI DATE of SERVICE: 10/19/2013 TIME of SERVICE: 9:44 AM SUMMARY 10/17/2013 07/23/2014 Overview: Admission: NSTEMI Echo: 56%, Stage 1 DD, RV nl ECG: SB at 56 Cards: [facility] Cath: LM 80%, LAD 30% prox, RCA 75% distal, RI 50% prox, 40% mid PMH/PSH: CAD, HTN, DM-2 5-6 yrs, HPL, ETOH (6 drinks/day) PAD s/p L superficial femoral/popliteal/posterior tibial artery artherectomy and angioplasty 07/2010 and right femoral artery arterectomy and angioplasty, right popliteal angioplasty 08/2010 on ASA and Plavix (last dose 10/18). Smoker, quit 11/09. Obesity (BMI >34), ? ERASMO? Events: PRBC Surgery 10/20/13: CABG x 3: WRIGHT>LAD, SVG>PDA, SVG>OM1 Echo: 65%, Stage 1 DD, RV normal. Small pericardial effusion w/o signs of tamponade 10/26/13: -SR. Post NSTEMI, Peak TpnT 0.216 -O2 sat 98% on RA -Elevated LFT's trending down, DC on no APAP -Ambulating without difficulty -HTN: DC on BB, Lasix, HEENA-I -Dulcolax prior to DC for BM -HPL: DC on no statin in light of LFT elevation: recommend add when normalize -DC: , from [place], [place], no skilled needs. Request f/u Dr. 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 Hold statin d/t elevated LFT's, resume once normalize Irritated//Inflamed Seborrheic Keratosis 011 12/15/2012 Actinic Keratoses (Premalignant AK's) 11/05/2010 01/01/2014 Actinic Damage///Sun-damaged skin 11/05/2010 12/15/2012 Personal history of other malignant neoplasm of skin 11/05/2010 12/15/2012 Melanocytic nevus of trunk 11/05/201002/14 Solar Lentigines 11/05/2010 12/15/2012 Seborrheic Keratoses 11/05/2010 12/15/2012 Skin tag 11/05/2010 12/15/2012 Pollack angioma 11/05/2010 12/15/2012 Surgical Scars 11/05/2010 12/15/2012 Nonspecific abnormal results of liver function s tudy 04/29/2008 12/13/2011 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/29/200701/27 BPH without obstruction/lower urinary tract symp toms 12/29/2007 02/21/2018 Obesity, unspecified 12/29/2007 02/15/2016 Dermatophytosis of nail 12/29/2007 07/23/20 14 documented as of this encounter (statuses as of 01/16/2023) [facility] [place]2018 History of Past illness Narrative* Problem Noted Date Resolved Date Obesity, Class II, BMI 35-39.9 08/22/2018 1 PVD (peripheral vascular disease) 05/24/2016 02/21/2018 Solar Lentigines 12/18/2013 02/15/2016 Other seborrheic keratosis 12/18/201301/21 Pollack angioma 12/18/2013 02/15/2016 DVT of leg (deep venous thrombosis) 11/16/2013 07/23/2014 Post-operative state 11/16/2013 01/01/2014 Postoperative anemia 10/25/2013 07/23/2014 Overview: Transfused on 10/25 1 U PRBC. H&H 9.2.3. DC on diuretic taper for dilutional component and MVI with iron and repeat as outpt Elevated LFTs 10/23/2013 01/01/2014 Overview: ALT/AST trending down 124/214. TB rising 1.8. DC on no APAP and add Lipitor 80 for post NSTEMI when LFTs normalize DISPOSITION AND FOLLOW-UP 10/23/20132013 Overview: 63 y/o M, lives in [place], [place]. No skilled needs. 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 Phi Heredia for new cards and Preventive cards and Preventive Nutrition. Primary Care: Sher Jules MD [address] [facility] [id number] Food Quality Technician: Phi Leo M.D. [place] [facility] Acute pain 10/22/2013 01/01/2014 Overview: DC on prn Percolone and wean Nodule of right lung 10/22/2013 07/23/2014 Fluid overload 10/21/2013 10/23/2013 Overview: 10/22/2013 fluid overload from surgery - generalized edema and pulm congestion plan - continue gentle diuresis - closely monitor fluid and electrolytes Atelectasis/pleural effusion/volume overload 07/23/2014 Overview: O2 sat 98% on RA. C, DB, PEP and con't to increase activity. Repeat CXR at f/u appt Hypotension 10/20/2013 10/23/2013 Overview: Post op vasoplegia, requiring epi/vaso/levo. off vaso gtt. 10/22/2013 Pressors weaned off overnight. plan - will start low dose BB - continue gentle diuretic Mechanically assisted ventilation 10/20/2013 10/22/2013 Overview: WTE Preoperative testing 10/19/2013 10/26/2013 Overview: CTS: CABG Surgeon: Ruddy Mccartney M.D. Informed Consent Completed: No STS Score: 0.8% Isolated CABG CAD: Yes - CAD on Problem List: Yes Is intended procedure a CABG: Yes - is a beta luis alberto ordered? Yes H & P completed: Yes PA/LAT: Completed CT: N/A MRI: N/A LE US: N/A Cath: Yes - reviewed: Yes Echo:Pending EKG: Pending EF %: P PI's: Pending Carotid: Completed 40-59% bilat Mapping: N/A Dental: N/A PFT's: Pending Basename 10/19/13 0258 WBC 6.47 HB 12.3* HCT 36.7* PLT 217 INR 1.0 CREAT 0.86 UA: PENDING HCG:N/A ABO/ABO Confirmed: PENDING Blood ordered: No SA Swab: Yes - results: Pending Last Dose of Anticoagulation: LD PLAVIX per Epic notes 10/16/13 Op Note: N/A Pacemaker Check: N/A Consults: Interventional Cardiology(LHC) DM: Yes, HgbA1c:6.5 on 10/18/13 Cardiac Surgical prep: PENDING SIGNATURE: Elida Campuzano CNP CHECKED BY: RANDI DATE of SERVICE: 10/19/2013 TIME of SERVICE: 9:44 AM SUMMARY 10/17/2013 07/23/2014 Overview: Admission: NSTEMI Echo: 56%, Stage 1 DD, RV nl ECG: SB at 56 Cards: [facility] Cath: LM 80%, LAD 30% prox, RCA 75% distal, RI 50% prox, 40% mid PMH/PSH: CAD, HTN, DM-2 5-6 yrs, HPL, ETOH (6 drinks/day) PAD s/p L superficial femoral/popliteal/posterior tibial artery artherectomy and angioplasty 07/2010 and right femoral artery arterectomy and angioplasty, right popliteal angioplasty 08/2010 on ASA and Plavix (last dose 10/18). Smoker, quit 11/09. Obesity (BMI >34), ? ERASMO? Events: PRBC Surgery 10/20/13: CABG x 3: WRIGHT>LAD, SVG>PDA, SVG>OM1 Echo: 65%, Stage 1 DD, RV normal. Small pericardial effusion w/o signs of tamponade 10/26/13: -SR. Post NSTEMI, Peak TpnT 0.216 -O2 sat 98% on RA -Elevated LFT's trending down, DC on no APAP -Ambulating without difficulty -HTN: DC on BB, Lasix, HEENA-I -Dulcolax prior to DC for BM -HPL: DC on no statin in light of LFT elevation: recommend add when normalize -DC: , from [place], no skilled needs. Request f/u Dr. 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 Hold statin d/t elevated LFT's, resume once normalize Irritated//Inflamed Seborrheic Keratosis 011 12/15/2012 Actinic Keratoses (Premalignant AK's) 11/05/2010 01/01/2014 Actinic Damage///Sun-damaged skin 11/05/2010 12/15/2012 Personal history of other malignant neoplasm of skin 11/05/2010 12/15/2012 Melanocytic nevus of trunk 11/05/201002/14 Solar Lentigines 11/05/2010 12/15/2012 Seborrheic Keratoses 11/05/2010 12/15/2012 Skin tag 11/05/2010 12/15/2012 Pollack angioma 11/05/2010 12/15/2012 Surgical Scars 11/05/2010 12/15/2012 Nonspecific abnormal results of liver function s tudy 04/29/2008 12/13/2011 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/29/200701/27 BPH without obstruction/lower urinary tract symp toms 12/29/2007 02/21/2018 Obesity, unspecified 12/29/2007 02/15/2016 Dermatophytosis of nail 12/29/2007 07/23/20 14 documented as of this encounter (statuses as of 01/17/2023) [facility] [place]2018 History of Past illness Narrative* Problem Noted Date Resolved Date Obesity, Class II, BMI 35-39.9 08/22/2018 1 PVD (peripheral vascular disease) 05/24/2016 02/21/2018 Solar Lentigines 12/18/2013 02/15/2016 Other seborrheic keratosis 12/18/201301/21 Pollack angioma 12/18/2013 02/15/2016 DVT of leg (deep venous thrombosis) 11/16/2013 07/23/2014 Post-operative state 11/16/2013 01/01/2014 Postoperative anemia 10/25/2013 07/23/2014 Overview: Transfused on 10/25 1 U PRBC. H&H 9.2/.3. DC on diuretic taper for dilutional component and MVI with iron and repeat as outpt Elevated LFTs 10/23/2013 01/01/2014 Overview: ALT/AST trending down 124/214. TB rising 1.8. DC on no APAP and add Lipitor 80 for post NSTEMI when LFTs normalize DISPOSITION AND FOLLOW-UP 10/23/20132013 Overview: 63 y/o M, lives in [place], [place]. No skilled needs. 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 Phi Heredia for new cards and Preventive cards and Preventive Nutrition. Primary Care: Sher Jules MD [address] [facility] [id number] Food Quality Technician: Phi Leo M.D. [facility] Cardiology Acute pain 10/22/2013 01/01/2014 Overview: DC on prn Percolone and wean Nodule of right lung 10/22/2013 07/23/2014 Fluid overload 10/21/2013 10/23/2013 Overview: 10/22/2013 fluid overload from surgery - generalized edema and pulm congestion plan - continue gentle diuresis - closely monitor fluid and electrolytes Atelectasis/pleural effusion/volume overload 07/23/2014 Overview: O2 sat 98% on RA. C, DB, PEP and con't to increase activity. Repeat CXR at f/u appt Hypotension 10/20/2013 10/23/2013 Overview: Post op vasoplegia, requiring epi/vaso/levo. off vaso gtt. 10/22/2013 Pressors weaned off overnight. plan - will start low dose BB - continue gentle diuretic Mechanically assisted ventilation 10/20/2013 10/22/2013 Overview: WTE Preoperative testing 10/19/2013 10/26/2013 Overview: CTS: CABG Surgeon: Ruddy Mccartney M.D. Informed Consent Completed: No STS Score: 0.8% Isolated CABG CAD: Yes - CAD on Problem List: Yes Is intended procedure a CABG: Yes - is a beta luis alberto ordered? Yes H & P completed: Yes PA/LAT: Completed CT: N/A MRI: N/A LE US: N/A Cath: Yes - reviewed: Yes Echo:Pending EKG: Pending EF %: P PI's: Pending Carotid: Completed 40-59% bilat Mapping: N/A Dental: N/A PFT's: Pending Basename 10/19/13 0258 WBC 6.47 HB 12.3* HCT 36.7* PLT 217 INR 1.0 CREAT 0.86 UA: PENDING HCG:N/A ABO/ABO Confirmed: PENDING Blood ordered: No SA Swab: Yes - results: Pending Last Dose of Anticoagulation: LD PLAVIX per Epic notes 10/16/13 Op Note: N/A Pacemaker Check: N/A Consults: Interventional Cardiology(LHC) DM: Yes, HgbA1c:6.5 on 10/18/13 Cardiac Surgical prep: PENDING SIGNATURE: Elida Campuzano CNP CHECKED BY: RE DATE of SERVICE: 10/19/2013 TIME of SERVICE: 9:44 AM SUMMARY 10/17/2013 07/23/2014 Overview: Admission: NSTEMI Echo: 56%, Stage 1 DD, RV nl ECG: SB at 56 Cards: [facility] Cath: LM 80%, LAD 30% prox, RCA 75% distal, RI 50% prox, 40% mid PMH/PSH: CAD, HTN, DM-2 5-6 yrs, HPL, ETOH (6 drinks/day) PAD s/p L superficial femoral/popliteal/posterior tibial artery artherectomy and angioplasty 07/2010 and right femoral artery arterectomy and angioplasty, right popliteal angioplasty 08/2010 on ASA and Plavix (last dose 10/18). Smoker, quit 11/09. Obesity (BMI >34), ? ERASMO? Events: PRBC Surgery 10/20/13: CABG x 3: WRIGHT>LAD, SVG>PDA, SVG>OM1 Echo: 65%, Stage 1 DD, RV normal. Small pericardial effusion w/o signs of tamponade 10/26/13: -SR. Post NSTEMI, Peak TpnT 0.216 -O2 sat 98% on RA -Elevated LFT's trending down, DC on no APAP -Ambulating without difficulty -HTN: DC on BB, Lasix, HEENA-I -Dulcolax prior to DC for BM -HPL: DC on no statin in light of LFT elevation: recommend add when normalize -DC: , from [place], [place], no skilled needs. Request f/u Dr. 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 Hold statin d/t elevated LFT's, resume once normalize Irritated//Inflamed Seborrheic Keratosis 011 12/15/2012 Actinic Keratoses (Premalignant AK's) 11/05/2010 01/01/2014 Actinic Damage///Sun-damaged skin 11/05/2010 12/15/2012 Personal history of other malignant neoplasm of skin 11/05/2010 12/15/2012 Melanocytic nevus of trunk 11/05/201002/14 Solar Lentigines 11/05/2010 12/15/2012 Seborrheic Keratoses 11/05/2010 12/15/2012 Skin tag 11/05/2010 12/15/2012 Pollack angioma 11/05/2010 12/15/2012 Surgical Scars 11/05/2010 12/15/2012 Nonspecific abnormal results of liver function s tudy 04/29/2008 12/13/2011 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/29/200701/27 BPH without obstruction/lower urinary tract symp toms 12/29/2007 02/21/2018 Obesity, unspecified 12/29/2007 02/15/2016 Dermatophytosis of nail 12/29/2007 07/23/20 14 documented as of this encounter (statuses as of 01/31/2023) [facility] [place]10-26-2018 History of Past illness Narrative* Problem Noted Date Resolved Date Obesity, Class II, BMI 35-39.9 08/22/2018 1 PVD (peripheral vascular disease) 05/24/2016 02/21/2018 Solar Lentigines 12/18/2013 02/15/2016 Other seborrheic keratosis 12/18/201301/21 Pollack angioma 12/18/2013 02/15/2016 DVT of leg (deep venous thrombosis) 11/16/2013 07/23/2014 Post-operative state 11/16/2013 01/01/2014 Postoperative anemia 10/25/2013 07/23/2014 Overview: Transfused on 10/25 1 U PRBC. H&H 9.2/26.3. DC on diuretic taper for dilutional component and MVI with iron and repeat as outpt Elevated LFTs 10/23/2013 01/01/2014 Overview: ALT/AST trending down 124/214. TB rising 1.8. DC on no APAP and add Lipitor 80 for post NSTEMI when LFTs normalize DISPOSITION AND FOLLOW-UP 10/23/20132013 Overview: 63 y/o M, lives in [place], [place]. No skilled needs. 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 Phi Heredia for new cards and Preventive cards and Preventive Nutrition. Primary Care: Sher Jules MD [address] [facility] [address] Food Quality Technician: Phi Leo M.D. [facility] Cardiology Acute pain 10/22/2013 01/01/2014 Overview: DC on prn Percolone and wean Nodule of right lung 10/22/2013 07/23/2014 Fluid overload 10/21/2013 10/23/2013 Overview: 10/22/2013 fluid overload from surgery - generalized edema and pulm congestion plan - continue gentle diuresis - closely monitor fluid and electrolytes Atelectasis/pleural effusion/volume overload 07/23/2014 Overview: O2 sat 98% on RA. C, DB, PEP and con't to increase activity. Repeat CXR at f/u appt Hypotension 10/20/2013 10/23/2013 Overview: Post op vasoplegia, requiring epi/vaso/levo. off vaso gtt. 10/22/2013 Pressors weaned off overnight. plan - will start low dose BB - continue gentle diuretic Mechanically assisted ventilation 10/20/2013 10/22/2013 Overview: WTE Preoperative testing 10/19/2013 10/26/2013 Overview: CTS: CABG Surgeon: Ruddy Mccartney M.D. Informed Consent Completed: No STS Score: 0.8% Isolated CABG CAD: Yes - CAD on Problem List: Yes Is intended procedure a CABG: Yes - is a beta luis alberto ordered? Yes H & P completed: Yes PA/LAT: Completed CT: N/A MRI: N/A LE US: N/A Cath: Yes - reviewed: Yes Echo:Pending EKG: Pending EF %: P PI's: Pending Carotid: Completed 40-59% bilat Mapping: N/A Dental: N/A PFT's: Pending Basename 10/19/13 0258 WBC 6.47 HB 12.3* HCT 36.7* PLT 217 INR 1.0 CREAT 0.86 UA: PENDING HCG:N/A ABO/ABO Confirmed: PENDING Blood ordered: No SA Swab: Yes - results: Pending Last Dose of Anticoagulation: LD PLAVIX per Epic notes 10/16/13 Op Note: N/A Pacemaker Check: N/A Consults: Interventional Cardiology(LHC) DM: Yes, HgbA1c:6.5 on 10/18/13 Cardiac Surgical prep: PENDING SIGNATURE: Elida Campuzano CNP CHECKED BY: RANDI DATE of SERVICE: 10/19/2013 TIME of SERVICE: 9:44 AM SUMMARY 10/17/2013 07/23/2014 Overview: Admission: NSTEMI Echo: 56%, Stage 1 DD, RV nl ECG: SB at 56 Cards: [facility] Cath: LM 80%, LAD 30% prox, RCA 75% distal, RI 50% prox, 40% mid PMH/PSH: CAD, HTN, DM-2 5-6 yrs, HPL, ETOH (6 drinks/day) PAD s/p L superficial femoral/popliteal/posterior tibial artery artherectomy and angioplasty 07/2010 and right femoral artery arterectomy and angioplasty, right popliteal angioplasty 08/2010 on ASA and Plavix (last dose 10/18). Smoker, quit 11/09. Obesity (BMI >34), ? ERASMO? Events: PRBC Surgery 10/20/13: CABG x 3: WRIGHT>LAD, SVG>PDA, SVG>OM1 Echo: 65%, Stage 1 DD, RV normal. Small pericardial effusion w/o signs of tamponade 10/26/13: -SR. Post NSTEMI, Peak TpnT 0.216 -O2 sat 98% on RA -Elevated LFT's trending down, DC on no APAP -Ambulating without difficulty -HTN: DC on BB, Lasix, HEENA-I -Dulcolax prior to DC for BM -HPL: DC on no statin in light of LFT elevation: recommend add when normalize -DC: , from [place], [place], no skilled needs. Request f/u Dr. 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 Hold statin d/t elevated LFT's, resume once normalize Irritated//Inflamed Seborrheic Keratosis 011 12/15/2012 Actinic Keratoses (Premalignant AK's) 11/05/2010 01/01/2014 Actinic Damage///Sun-damaged skin 11/05/2010 12/15/2012 Personal history of other malignant neoplasm of skin 11/05/2010 12/15/2012 Melanocytic nevus of trunk 11/05/201002/14 Solar Lentigines 11/05/2010 12/15/2012 Seborrheic Keratoses 11/05/2010 12/15/2012 Skin tag 11/05/2010 12/15/2012 Pollack angioma 11/05/2010 12/15/2012 Surgical Scars 11/05/2010 12/15/2012 Nonspecific abnormal results of liver function s guevarady 04/29/2008 12/13/2011 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/29/200701/27 BPH without obstruction/lower urinary tract symp toms 12/29/2007 02/21/2018 Obesity, unspecified 12/29/2007 02/15/2016 Dermatophytosis of nail 12/29/2007 07/23/20 14 documented as of this encounter (statuses as of 02/04/2023) [facility] [place]10-26-2018 History of Past illness Narrative* Problem Noted Date Resolved Date Obesity, Class II, BMI 35-39.9 08/22/2018 1 PVD (peripheral vascular disease) 05/24/2016 02/21/2018 Solar Lentigines 12/18/2013 02/15/2016 Other seborrheic keratosis 12/18/201301/21 Pollack angioma 12/18/2013 02/15/2016 DVT of leg (deep venous thrombosis) 11/16/2013 07/23/2014 Post-operative state 11/16/2013 01/01/2014 Postoperative anemia 10/25/2013 07/23/2014 Overview: Transfused on 10/25 1 U PRBC. H&H 9.2/26.3. DC on diuretic taper for dilutional component and MVI with iron and repeat as outpt Elevated LFTs 10/23/2013 01/01/2014 Overview: ALT/AST trending down 124/214. TB rising 1.8. DC on no APAP and add Lipitor 80 for post NSTEMI when LFTs normalize DISPOSITION AND FOLLOW-UP 10/23/20132013 Overview: 63 y/o M, lives in [place], [place]. No skilled needs. 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 Phi Heredia for new cards and Preventive cards and Preventive Nutrition. Primary Care: Sher Jules MD [address] [facility] [id number] Food Quality Technician: Phi Leo M.D. [facility] Cardiology Acute pain 10/22/2013 01/01/2014 Overview: DC on prn Percolone and wean Nodule of right lung 10/22/2013 07/23/2014 Fluid overload 10/21/2013 10/23/2013 Overview: 10/22/2013 fluid overload from surgery - generalized edema and pulm congestion plan - continue gentle diuresis - closely monitor fluid and electrolytes Atelectasis/pleural effusion/volume overload 07/23/2014 Overview: O2 sat 98% on RA. C, DB, PEP and con't to increase activity. Repeat CXR at f/u appt Hypotension 10/20/2013 10/23/2013 Overview: Post op vasoplegia, requiring epi/vaso/levo. off vaso gtt. 10/22/2013 Pressors weaned off overnight. plan - will start low dose BB - continue gentle diuretic Mechanically assisted ventilation 10/20/2013 10/22/2013 Overview: WTE Preoperative testing 10/19/2013 10/26/2013 Overview: CTS: CABG Surgeon: Ruddy Mccartney M.D. Informed Consent Completed: No STS Score: 0.8% Isolated CABG CAD: Yes - CAD on Problem List: Yes Is intended procedure a CABG: Yes - is a beta luis alberto ordered? Yes H & P completed: Yes PA/LAT: Completed CT: N/A MRI: N/A LE US: N/A Cath: Yes - reviewed: Yes Echo:Pending EKG: Pending EF %: P PI's: Pending Carotid: Completed 40-59% bilat Mapping: N/A Dental: N/A PFT's: Pending Basename 10/19/13 0258 WBC 6.47 HB 12.3* HCT 36.7* PLT 217 INR 1.0 CREAT 0.86 UA: PENDING HCG:N/A ABO/ABO Confirmed: PENDING Blood ordered: No SA Swab: Yes - results: Pending Last Dose of Anticoagulation: LD PLAVIX per Epic notes 10/16/13 Op Note: N/A Pacemaker Check: N/A Consults: Interventional Cardiology(LHC) DM: Yes, HgbA1c:6.5 on 10/18/13 Cardiac Surgical prep: PENDING SIGNATURE: Elida Campuzano CNP CHECKED BY: RANDI DATE of SERVICE: 10/19/2013 TIME of SERVICE: 9:44 AM SUMMARY 10/17/2013 07/23/2014 Overview: Admission: NSTEMI Echo: 56%, Stage 1 DD, RV nl ECG: SB at 56 Cards: [facility] Cath: LM 80%, LAD 30% prox, RCA 75% distal, RI 50% prox, 40% mid PMH/PSH: CAD, HTN, DM-2 5-6 yrs, HPL, ETOH (6 drinks/day) PAD s/p L superficial femoral/popliteal/posterior tibial artery artherectomy and angioplasty 07/2010 and right femoral artery arterectomy and angioplasty, right popliteal angioplasty 08/2010 on ASA and Plavix (last dose 10/18). Smoker, quit 11/09. Obesity (BMI >34), ? ERASMO? Events: PRBC Surgery 10/20/13: CABG x 3: WRIGHT>LAD, SVG>PDA, SVG>OM1 Echo: 65%, Stage 1 DD, RV normal. Small pericardial effusion w/o signs of tamponade 10/26/13: -SR. Post NSTEMI, Peak TpnT 0.216 -O2 sat 98% on RA -Elevated LFT's trending down, DC on no APAP -Ambulating without difficulty -HTN: DC on BB, Lasix, HEENA-I -Dulcolax prior to DC for BM -HPL: DC on no statin in light of LFT elevation: recommend add when normalize -DC: , from [place], [place], no skilled needs. Request f/u Dr. 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 Hold statin d/t elevated LFT's, resume once normalize Irritated//Inflamed Seborrheic Keratosis 011 12/15/2012 Actinic Keratoses (Premalignant AK's) 11/05/2010 01/01/2014 Actinic Damage///Sun-damaged skin 11/05/2010 12/15/2012 Personal history of other malignant neoplasm of skin 11/05/2010 12/15/2012 Melanocytic nevus of trunk 11/05/201002/14 Solar Lentigines 11/05/2010 12/15/2012 Seborrheic Keratoses 11/05/2010 12/15/2012 Skin tag 11/05/2010 12/15/2012 Pollack angioma 11/05/2010 12/15/2012 Surgical Scars 11/05/2010 12/15/2012 Nonspecific abnormal results of liver function s tudy 04/29/2008 12/13/2011 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/29/200701/27 BPH without obstruction/lower urinary tract symp toms 12/29/2007 02/21/2018 Obesity, unspecified 12/29/2007 02/15/2016 Dermatophytosis of nail 12/29/2007 07/23/20 14 documented as of this encounter (statuses as of 02/04/2023) [facility] [place]-2018 History of Past illness Narrative* Problem Noted Date Resolved Date Obesity, Class II, BMI 35-39.9 08/22/2018 1 PVD (peripheral vascular disease) 05/24/2016 02/21/2018 Solar Lentigines 12/18/2013 02/15/2016 Other seborrheic keratosis 12/18/201301/21 Pollack angioma 12/18/2013 02/15/2016 DVT of leg (deep venous thrombosis) 11/16/2013 07/23/2014 Post-operative state 11/16/2013 01/01/2014 Postoperative anemia 10/25/2013 07/23/2014 Overview: Transfused on 10/25 1 U PRBC. H&H 9.2/.3. DC on diuretic taper for dilutional component and MVI with iron and repeat as outpt Elevated LFTs 10/23/2013 01/01/2014 Overview: ALT/AST trending down 124/214. TB rising 1.8. DC on no APAP and add Lipitor 80 for post NSTEMI when LFTs normalize DISPOSITION AND FOLLOW-UP 10/23/20132013 Overview: 63 y/o M, lives in [place], [place]. No skilled needs. 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 Phi Heredia for new cards and Preventive cards and Preventive Nutrition. Primary Care: Sher Jules MD [address] [facility] [address] Food Quality Technician: Phi Leo M.D. [facility] Acute pain 10/22/2013 01/01/2014 Overview: DC on prn Percolone and wean Nodule of right lung 10/22/2013 07/23/2014 Fluid overload 10/21/2013 10/23/2013 Overview: 10/22/2013 fluid overload from surgery - generalized edema and pulm congestion plan - continue gentle diuresis - closely monitor fluid and electrolytes Atelectasis/pleural effusion/volume overload 07/23/2014 Overview: O2 sat 98% on RA. C, DB, PEP and con't to increase activity. Repeat CXR at f/u appt Hypotension 10/20/2013 10/23/2013 Overview: Post op vasoplegia, requiring epi/vaso/levo. off vaso gtt. 10/22/2013 Pressors weaned off overnight. plan - will start low dose BB - continue gentle diuretic Mechanically assisted ventilation 10/20/2013 10/22/2013 Overview: WTE Preoperative testing 10/19/2013 10/26/2013 Overview: CTS: CABG Surgeon: Ruddy Mccartney M.D. Informed Consent Completed: No STS Score: 0.8% Isolated CABG CAD: Yes - CAD on Problem List: Yes Is intended procedure a CABG: Yes - is a beta luis alberto ordered? Yes H & P completed: Yes PA/LAT: Completed CT: N/A MRI: N/A LE US: N/A Cath: Yes - reviewed: Yes Echo:Pending EKG: Pending EF %: P PI's: Pending Carotid: Completed 40-59% bilat Mapping: N/A Dental: N/A PFT's: Pending Basename 10/19/13 0258 WBC 6.47 HB 12.3* HCT 36.7* PLT 217 INR 1.0 CREAT 0.86 UA: PENDING HCG:N/A ABO/ABO Confirmed: PENDING Blood ordered: No SA Swab: Yes - results: Pending Last Dose of Anticoagulation: LD PLAVIX per Epic notes 10/16/13 Op Note: N/A Pacemaker Check: N/A Consults: Interventional Cardiology(LHC) DM: Yes, HgbA1c:6.5 on 10/18/13 Cardiac Surgical prep: PENDING SIGNATURE: Elida Campuzano CNP CHECKED BY: RANDI DATE of SERVICE: 10/19/2013 TIME of SERVICE: 9:44 AM SUMMARY 10/17/2013 07/23/2014 Overview: Admission: NSTEMI Echo: 56%, Stage 1 DD, RV nl ECG: SB at 56 Cards: [facility] Cath: LM 80%, LAD 30% prox, RCA 75% distal, RI 50% prox, 40% mid PMH/PSH: CAD, HTN, DM-2 5-6 yrs, HPL, ETOH (6 drinks/day) PAD s/p L superficial femoral/popliteal/posterior tibial artery artherectomy and angioplasty 07/2010 and right femoral artery arterectomy and angioplasty, right popliteal angioplasty 08/2010 on ASA and Plavix (last dose 10/18). Smoker, quit 11/09. Obesity (BMI >34), ? ERASMO? Events: PRBC Surgery 10/20/13: CABG x 3: WRIGHT>LAD, SVG>PDA, SVG>OM1 Echo: 65%, Stage 1 DD, RV normal. Small pericardial effusion w/o signs of tamponade 10/26/13: -SR. Post NSTEMI, Peak TpnT 0.216 -O2 sat 98% on RA -Elevated LFT's trending down, DC on no APAP -Ambulating without difficulty -HTN: DC on BB, Lasix, HEENA-I -Dulcolax prior to DC for BM -HPL: DC on no statin in light of LFT elevation: recommend add when normalize -DC: , from [place], [place], no skilled needs. Request f/u Dr. 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 Hold statin d/t elevated LFT's, resume once normalize Irritated//Inflamed Seborrheic Keratosis 011 12/15/2012 Actinic Keratoses (Premalignant AK's) 11/05/2010 01/01/2014 Actinic Damage///Sun-damaged skin 11/05/2010 12/15/2012 Personal history of other malignant neoplasm of skin 11/05/2010 12/15/2012 Melanocytic nevus of trunk 11/05/201002/14 Solar Lentigines 11/05/2010 12/15/2012 Seborrheic Keratoses 11/05/2010 12/15/2012 Skin tag 11/05/2010 12/15/2012 Pollack angioma 11/05/2010 12/15/2012 Surgical Scars 11/05/2010 12/15/2012 Nonspecific abnormal results of liver function s tudy 04/29/2008 12/13/2011 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/29/200701/27 BPH without obstruction/lower urinary tract symp toms 12/29/2007 02/21/2018 Obesity, unspecified 12/29/2007 02/15/2016 Dermatophytosis of nail 12/29/2007 07/23/20 14 documented as of this encounter (statuses as of 02/07/2023) [facility]2018 History of Past illness Narrative* Problem Noted Date Resolved Date Obesity, Class II, BMI 35-39.9 08/22/2018 1 PVD (peripheral vascular disease) 05/24/2016 02/21/2018 Solar Lentigines 12/18/2013 02/15/2016 Other seborrheic keratosis 12/18/201301/21 Pollack angioma 12/18/2013 02/15/2016 DVT of leg (deep venous thrombosis) 11/16/2013 07/23/2014 Post-operative state 11/16/2013 01/01/2014 Postoperative anemia 10/25/2013 07/23/2014 Overview: Transfused on 10/25 1 U PRBC. H&H 9.2/26.3. DC on diuretic taper for dilutional component and MVI with iron and repeat as outpt Elevated LFTs 10/23/2013 01/01/2014 Overview: ALT/AST trending down 124/214. TB rising 1.8. DC on no APAP and add Lipitor 80 for post NSTEMI when LFTs normalize DISPOSITION AND FOLLOW-UP 10/23/20132013 Overview: 63 y/o M, lives in [place], [place]. No skilled needs. 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 Phi Heredia for new cards and Preventive cards and Preventive Nutrition. Primary Care: Sher Jules MD [address] [facility] [id number] Food Quality Technician: Phi Leo M.D. [place] [facility] Cardiology Acute pain 10/22/2013 01/01/2014 Overview: DC on prn Percolone and wean Nodule of right lung 10/22/2013 07/23/2014 Fluid overload 10/21/2013 10/23/2013 Overview: 10/22/2013 fluid overload from surgery - generalized edema and pulm congestion plan - continue gentle diuresis - closely monitor fluid and electrolytes Atelectasis/pleural effusion/volume overload 07/23/2014 Overview: O2 sat 98% on RA. C, DB, PEP and con't to increase activity. Repeat CXR at f/u appt Hypotension 10/20/2013 10/23/2013 Overview: Post op vasoplegia, requiring epi/vaso/levo. off vaso gtt. 10/22/2013 Pressors weaned off overnight. plan - will start low dose BB - continue gentle diuretic Mechanically assisted ventilation 10/20/2013 10/22/2013 Overview: WTE Preoperative testing 10/19/2013 10/26/2013 Overview: CTS: CABG Surgeon: Ruddy Mccartney M.D. Informed Consent Completed: No STS Score: 0.8% Isolated CABG CAD: Yes - CAD on Problem List: Yes Is intended procedure a CABG: Yes - is a beta luis alberto ordered? Yes H & P completed: Yes PA/LAT: Completed CT: N/A MRI: N/A LE US: N/A Cath: Yes - reviewed: Yes Echo:Pending EKG: Pending EF %: P PI's: Pending Carotid: Completed 40-59% bilat Mapping: N/A Dental: N/A PFT's: Pending Basename 10/19/13 0258 WBC 6.47 HB 12.3* HCT 36.7* PLT 217 INR 1.0 CREAT 0.86 UA: PENDING HCG:N/A ABO/ABO Confirmed: PENDING Blood ordered: No SA Swab: Yes - results: Pending Last Dose of Anticoagulation: LD PLAVIX per Epic notes 10/16/13 Op Note: N/A Pacemaker Check: N/A Consults: Interventional Cardiology(LHC) DM: Yes, HgbA1c:6.5 on 10/18/13 Cardiac Surgical prep: PENDING SIGNATURE: Elida Campuzano CNP CHECKED BY: RANDI DATE of SERVICE: 10/19/2013 TIME of SERVICE: 9:44 AM SUMMARY 10/17/2013 07/23/2014 Overview: Admission: NSTEMI Echo: 56%, Stage 1 DD, RV nl ECG: SB at 56 Cards: [facility] Cath: LM 80%, LAD 30% prox, RCA 75% distal, RI 50% prox, 40% mid PMH/PSH: CAD, HTN, DM-2 5-6 yrs, HPL, ETOH (6 drinks/day) PAD s/p L superficial femoral/popliteal/posterior tibial artery artherectomy and angioplasty 07/2010 and right femoral artery arterectomy and angioplasty, right popliteal angioplasty 08/2010 on ASA and Plavix (last dose 10/18). Smoker, quit 11/09. Obesity (BMI >34), ? ERASMO? Events: PRBC Surgery 10/20/13: CABG x 3: WRIGHT>LAD, SVG>PDA, SVG>OM1 Echo: 65%, Stage 1 DD, RV normal. Small pericardial effusion w/o signs of tamponade 10/26/13: -SR. Post NSTEMI, Peak TpnT 0.216 -O2 sat 98% on RA -Elevated LFT's trending down, DC on no APAP -Ambulating without difficulty -HTN: DC on BB, Lasix, HEENA-I -Dulcolax prior to DC for BM -HPL: DC on no statin in light of LFT elevation: recommend add when normalize -DC: , from [place], [place], no skilled needs. Request f/u Dr. 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 Hold statin d/t elevated LFT's, resume once normalize Irritated//Inflamed Seborrheic Keratosis 011 12/15/2012 Actinic Keratoses (Premalignant AK's) 11/05/2010 01/01/2014 Actinic Damage///Sun-damaged skin 11/05/2010 12/15/2012 Personal history of other malignant neoplasm of skin 11/05/2010 12/15/2012 Melanocytic nevus of trunk 11/05/201002/14 Solar Lentigines 11/05/2010 12/15/2012 Seborrheic Keratoses 11/05/2010 12/15/2012 Skin tag 11/05/2010 12/15/2012 Pollack angioma 11/05/2010 12/15/2012 Surgical Scars 11/05/2010 12/15/2012 Nonspecific abnormal results of liver function s tudy 04/29/2008 12/13/2011 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/29/200701/27 BPH without obstruction/lower urinary tract symp toms 12/29/2007 02/21/2018 Obesity, unspecified 12/29/2007 02/15/2016 Dermatophytosis of nail 12/29/2007 07/23/20 14 documented as of this encounter (statuses as of 02/15/2023) [facility] [place]10-26-2018 History of Past illness Narrative* Problem Noted Date Resolved Date Obesity, Class II, BMI 35-39.9 08/22/2018 1 PVD (peripheral vascular disease) 05/24/2016 02/21/2018 Solar Lentigines 12/18/2013 02/15/2016 Other seborrheic keratosis 12/18/201301/21 Pollack angioma 12/18/2013 02/15/2016 DVT of leg (deep venous thrombosis) 11/16/2013 07/23/2014 Post-operative state 11/16/2013 01/01/2014 Postoperative anemia 10/25/2013 07/23/2014 Overview: Transfused on 10/25 1 U PRBC. H&H 9.2/.3. DC on diuretic taper for dilutional component and MVI with iron and repeat as outpt Elevated LFTs 10/23/2013 01/01/2014 Overview: ALT/AST trending down 124/214. TB rising 1.8. DC on no APAP and add Lipitor 80 for post NSTEMI when LFTs normalize DISPOSITION AND FOLLOW-UP 10/23/20132013 Overview: 63 y/o M, lives in [place], [place]. No skilled needs. 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 Phi Heredia for new cards and Preventive cards and Preventive Nutrition. Primary Care: Sher Jules MD [address] [facility] [id number] Food Quality Technician: Phi Leo M.D. [place] [facility] Acute pain 10/22/2013 01/01/2014 Overview: DC on prn Percolone and wean Nodule of right lung 10/22/2013 07/23/2014 Fluid overload 10/21/2013 10/23/2013 Overview: 10/22/2013 fluid overload from surgery - generalized edema and pulm congestion plan - continue gentle diuresis - closely monitor fluid and electrolytes Atelectasis/pleural effusion/volume overload 07/23/2014 Overview: O2 sat 98% on RA. C, DB, PEP and con't to increase activity. Repeat CXR at f/u appt Hypotension 10/20/2013 10/23/2013 Overview: Post op vasoplegia, requiring epi/vaso/levo. off vaso gtt. 10/22/2013 Pressors weaned off overnight. plan - will start low dose BB - continue gentle diuretic Mechanically assisted ventilation 10/20/2013 10/22/2013 Overview: WTE Preoperative testing 10/19/2013 10/26/2013 Overview: CTS: CABG Surgeon: Ruddy Mccartney M.D. Informed Consent Completed: No STS Score: 0.8% Isolated CABG CAD: Yes - CAD on Problem List: Yes Is intended procedure a CABG: Yes - is a beta luis alberto ordered? Yes H & P completed: Yes PA/LAT: Completed CT: N/A MRI: N/A LE US: N/A Cath: Yes - reviewed: Yes Echo:Pending EKG: Pending EF %: P PI's: Pending Carotid: Completed 40-59% bilat Mapping: N/A Dental: N/A PFT's: Pending Basename 10/19/13 0258 WBC 6.47 HB 12.3* HCT 36.7* PLT 217 INR 1.0 CREAT 0.86 UA: PENDING HCG:N/A ABO/ABO Confirmed: PENDING Blood ordered: No SA Swab: Yes - results: Pending Last Dose of Anticoagulation: LD PLAVIX per Epic notes 10/16/13 Op Note: N/A Pacemaker Check: N/A Consults: Interventional Cardiology([facility]) DM: Yes, HgbA1c:6.5 on 10/18/13 Cardiac Surgical prep: PENDING SIGNATURE: Elida Campuzano CNP CHECKED BY: RANDI DATE of SERVICE: 10/19/2013 TIME of SERVICE: 9:44 AM SUMMARY 10/17/2013 07/23/2014 Overview: Admission: NSTEMI Echo: 56%, Stage 1 DD, RV nl ECG: SB at 56 Cards: [facility] Cath: LM 80%, LAD 30% prox, RCA 75% distal, RI 50% prox, 40% mid PMH/PSH: CAD, HTN, DM-2 5-6 yrs, HPL, ETOH (6 drinks/day) PAD s/p L superficial femoral/popliteal/posterior tibial artery artherectomy and angioplasty 07/2010 and right femoral artery arterectomy and angioplasty, right popliteal angioplasty 08/2010 on ASA and Plavix (last dose 10/18). Smoker, quit 11/09. Obesity (BMI >34), ? ERASMO? Events: PRBC Surgery 10/20/13: CABG x 3: WRIGHT>LAD, SVG>PDA, SVG>OM1 Echo: 65%, Stage 1 DD, RV normal. Small pericardial effusion w/o signs of tamponade 10/26/13: -SR. Post NSTEMI, Peak TpnT 0.216 -O2 sat 98% on RA -Elevated LFT's trending down, DC on no APAP -Ambulating without difficulty -HTN: DC on BB, Lasix, HEENA-I -Dulcolax prior to DC for BM -HPL: DC on no statin in light of LFT elevation: recommend add when normalize -DC: , from [place], [place], no skilled needs. Request f/u Dr. 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 Hold statin d/t elevated LFT's, resume once normalize Irritated//Inflamed Seborrheic Keratosis 011 12/15/2012 Actinic Keratoses (Premalignant AK's) 11/05/2010 01/01/2014 Actinic Damage///Sun-damaged skin 11/05/2010 12/15/2012 Personal history of other malignant neoplasm of skin 11/05/2010 12/15/2012 Melanocytic nevus of trunk 11/05/201002/14 Solar Lentigines 11/05/2010 12/15/2012 Seborrheic Keratoses 11/05/2010 12/15/2012 Skin tag 11/05/2010 12/15/2012 Pollack angioma 11/05/2010 12/15/2012 Surgical Scars 11/05/2010 12/15/2012 Nonspecific abnormal results of liver function s tudy 04/29/2008 12/13/2011 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/29/200701/27 BPH without obstruction/lower urinary tract symp toms 12/29/2007 02/21/2018 Obesity, unspecified 12/29/2007 02/15/2016 Dermatophytosis of nail 12/29/2007 07/23/20 14 documented as of this encounter (statuses as of 03/29/2023) [facility] [place]10-26-2018 History of Past illness Narrative* Problem Noted Date Resolved Date Obesity, Class II, BMI 35-39.9 08/22/2018 1 PVD (peripheral vascular disease) 05/24/2016 02/21/2018 Solar Lentigines 12/18/2013 02/15/2016 Other seborrheic keratosis 12/18/201301/21 Pollack angioma 12/18/2013 02/15/2016 DVT of leg (deep venous thrombosis) 11/16/2013 07/23/2014 Post-operative state 11/16/2013 01/01/2014 Postoperative anemia 10/25/2013 07/23/2014 Overview: Transfused on 10/25 1 U PRBC. H&H 9.2/26.3. DC on diuretic taper for dilutional component and MVI with iron and repeat as outpt Elevated LFTs 10/23/2013 01/01/2014 Overview: ALT/AST trending down 124/214. TB rising 1.8. DC on no APAP and add Lipitor 80 for post NSTEMI when LFTs normalize DISPOSITION AND FOLLOW-UP 10/23/20132013 Overview: 63 y/o M, lives in [place], [place]. No skilled needs. 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 Phi Heredia for new cards and Preventive cards and Preventive Nutrition. Primary Care: Sher Jules MD [address] [facility] [id number] Food Quality Technician: Phi Leo M.D. [facility] Cardiology Acute pain 10/22/2013 01/01/2014 Overview: DC on prn Percolone and wean Nodule of right lung 10/22/2013 07/23/2014 Fluid overload 10/21/2013 10/23/2013 Overview: 10/22/2013 fluid overload from surgery - generalized edema and pulm congestion plan - continue gentle diuresis - closely monitor fluid and electrolytes Atelectasis/pleural effusion/volume overload 07/23/2014 Overview: O2 sat 98% on RA. C, DB, PEP and con't to increase activity. Repeat CXR at f/u appt Hypotension 10/20/2013 10/23/2013 Overview: Post op vasoplegia, requiring epi/vaso/levo. off vaso gtt. 10/22/2013 Pressors weaned off overnight. plan - will start low dose BB - continue gentle diuretic Mechanically assisted ventilation 10/20/2013 10/22/2013 Overview: WTE Preoperative testing 10/19/2013 10/26/2013 Overview: CTS: CABG Surgeon: Ruddy Mccartney M.D. Informed Consent Completed: No STS Score: 0.8% Isolated CABG CAD: Yes - CAD on Problem List: Yes Is intended procedure a CABG: Yes - is a beta luis alberto ordered? Yes H & P completed: Yes PA/LAT: Completed CT: N/A MRI: N/A LE US: N/A Cath: Yes - reviewed: Yes Echo:Pending EKG: Pending EF %: P PI's: Pending Carotid: Completed 40-59% bilat Mapping: N/A Dental: N/A PFT's: Pending Basename 10/19/13 0258 WBC 6.47 HB 12.3* HCT 36.7* PLT 217 INR 1.0 CREAT 0.86 UA: PENDING HCG:N/A ABO/ABO Confirmed: PENDING Blood ordered: No SA Swab: Yes - results: Pending Last Dose of Anticoagulation: LD PLAVIX per Epic notes 10/16/13 Op Note: N/A Pacemaker Check: N/A Consults: Interventional Cardiology([facility]) DM: Yes, HgbA1c:6.5 on 10/18/13 Cardiac Surgical prep: PENDING SIGNATURE: Elida Campuzano CNP CHECKED BY: RANDI DATE of SERVICE: 10/19/2013 TIME of SERVICE: 9:44 AM SUMMARY 10/17/2013 07/23/2014 Overview: Admission: NSTEMI Echo: 56%, Stage 1 DD, RV nl ECG: SB at 56 Cards: [facility] Cath: LM 80%, LAD 30% prox, RCA 75% distal, RI 50% prox, 40% mid PMH/PSH: CAD, HTN, DM-2 5-6 yrs, HPL, ETOH (6 drinks/day) PAD s/p L superficial femoral/popliteal/posterior tibial artery artherectomy and angioplasty 07/2010 and right femoral artery arterectomy and angioplasty, right popliteal angioplasty 08/2010 on ASA and Plavix (last dose 10/18). Smoker, quit 11/09. Obesity (BMI >34), ? ERASMO? Events: PRBC Surgery 10/20/13: CABG x 3: WRIGHT>LAD, SVG>PDA, SVG>OM1 Echo: 65%, Stage 1 DD, RV normal. Small pericardial effusion w/o signs of tamponade 10/26/13: -SR. Post NSTEMI, Peak TpnT 0.216 -O2 sat 98% on RA -Elevated LFT's trending down, DC on no APAP -Ambulating without difficulty -HTN: DC on BB, Lasix, HEENA-I -Dulcolax prior to DC for BM -HPL: DC on no statin in light of LFT elevation: recommend add when normalize -DC: , from [place], [place], no skilled needs. Request f/u Dr. 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 Hold statin d/t elevated LFT's, resume once normalize Irritated//Inflamed Seborrheic Keratosis 011 12/15/2012 Actinic Keratoses (Premalignant AK's) 11/05/2010 01/01/2014 Actinic Damage///Sun-damaged skin 11/05/2010 12/15/2012 Personal history of other malignant neoplasm of skin 11/05/2010 12/15/2012 Melanocytic nevus of trunk 11/05/201002/14 Solar Lentigines 11/05/2010 12/15/2012 Seborrheic Keratoses 11/05/2010 12/15/2012 Skin tag 11/05/2010 12/15/2012 Pollack angioma 11/05/2010 12/15/2012 Surgical Scars 11/05/2010 12/15/2012 Nonspecific abnormal results of liver function s tudy 04/29/2008 12/13/2011 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/29/200701/27 BPH without obstruction/lower urinary tract symp toms 12/29/2007 02/21/2018 Obesity, unspecified 12/29/2007 02/15/2016 Dermatophytosis of nail 12/29/2007 07/23/20 14 documented as of this encounter (statuses as of 04/01/2023) [facility] [place]10-26-2018 History of Past illness Narrative* Problem Noted Date Resolved Date Obesity, Class II, BMI 35-39.9 08/22/2018 1 PVD (peripheral vascular disease) 05/24/2016 02/21/2018 Solar Lentigines 12/18/2013 02/15/2016 Other seborrheic keratosis 12/18/201301/21 Pollack angioma 12/18/2013 02/15/2016 DVT of leg (deep venous thrombosis) 11/16/2013 07/23/2014 Post-operative state 11/16/2013 01/01/2014 Postoperative anemia 10/25/2013 07/23/2014 Overview: Transfused on 10/25 1 U PRBC. H&H 9.2/.3. DC on diuretic taper for dilutional component and MVI with iron and repeat as outpt Elevated LFTs 10/23/2013 01/01/2014 Overview: ALT/AST trending down 124/214. TB rising 1.8. DC on no APAP and add Lipitor 80 for post NSTEMI when LFTs normalize DISPOSITION AND FOLLOW-UP 10/23/20132013 Overview: 63 y/o M, lives in [place], [place]. No skilled needs. 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 Phi Heredia for new cards and Preventive cards and Preventive Nutrition. Primary Care: Sher Jules MD [address] [facility] [id number] Food Quality Technician: Phi Leo M.D. [place] [facility] Acute pain 10/22/2013 01/01/2014 Overview: DC on prn Percolone and wean Nodule of right lung 10/22/2013 07/23/2014 Fluid overload 10/21/2013 10/23/2013 Overview: 10/22/2013 fluid overload from surgery - generalized edema and pulm congestion plan - continue gentle diuresis - closely monitor fluid and electrolytes Atelectasis/pleural effusion/volume overload 07/23/2014 Overview: O2 sat 98% on RA. C, DB, PEP and con't to increase activity. Repeat CXR at f/u appt Hypotension 10/20/2013 10/23/2013 Overview: Post op vasoplegia, requiring epi/vaso/levo. off vaso gtt. 10/22/2013 Pressors weaned off overnight. plan - will start low dose BB - continue gentle diuretic Mechanically assisted ventilation 10/20/2013 10/22/2013 Overview: WTE Preoperative testing 10/19/2013 10/26/2013 Overview: CTS: CABG Surgeon: Ruddy Mccartney M.D. Informed Consent Completed: No STS Score: 0.8% Isolated CABG CAD: Yes - CAD on Problem List: Yes Is intended procedure a CABG: Yes - is a beta luis alberto ordered? Yes H & P completed: Yes PA/LAT: Completed CT: N/A MRI: N/A LE US: N/A Cath: Yes - reviewed: Yes Echo:Pending EKG: Pending EF %: P PI's: Pending Carotid: Completed 40-59% bilat Mapping: N/A Dental: N/A PFT's: Pending Basename 10/19/13 0258 WBC 6.47 HB 12.3* HCT 36.7* PLT 217 INR 1.0 CREAT 0.86 UA: PENDING HCG:N/A ABO/ABO Confirmed: PENDING Blood ordered: No SA Swab: Yes - results: Pending Last Dose of Anticoagulation: LD PLAVIX per Epic notes 10/16/13 Op Note: N/A Pacemaker Check: N/A Consults: Interventional Cardiology([facility]) DM: Yes, HgbA1c:6.5 on 10/18/13 Cardiac Surgical prep: PENDING SIGNATURE: Elida Campuzano CNP CHECKED BY: RANDI DATE of SERVICE: 10/19/2013 TIME of SERVICE: 9:44 AM SUMMARY 10/17/2013 07/23/2014 Overview: Admission: NSTEMI Echo: 56%, Stage 1 DD, RV nl ECG: SB at 56 Cards: [facility] Cath: LM 80%, LAD 30% prox, RCA 75% distal, RI 50% prox, 40% mid PMH/PSH: CAD, HTN, DM-2 5-6 yrs, HPL, ETOH (6 drinks/day) PAD s/p L superficial femoral/popliteal/posterior tibial artery artherectomy and angioplasty 07/2010 and right femoral artery arterectomy and angioplasty, right popliteal angioplasty 08/2010 on ASA and Plavix (last dose 10/18). Smoker, quit 11/09. Obesity (BMI >34), ? ERASMO? Events: PRBC Surgery 10/20/13: CABG x 3: WRIGHT>LAD, SVG>PDA, SVG>OM1 Echo: 65%, Stage 1 DD, RV normal. Small pericardial effusion w/o signs of tamponade 10/26/13: -SR. Post NSTEMI, Peak TpnT 0.216 -O2 sat 98% on RA -Elevated LFT's trending down, DC on no APAP -Ambulating without difficulty -HTN: DC on BB, Lasix, HEENA-I -Dulcolax prior to DC for BM -HPL: DC on no statin in light of LFT elevation: recommend add when normalize -DC: , from [place], [place], no skilled needs. Request f/u Dr. 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 Hold statin d/t elevated LFT's, resume once normalize Irritated//Inflamed Seborrheic Keratosis 011 12/15/2012 Actinic Keratoses (Premalignant AK's) 11/05/2010 01/01/2014 Actinic Damage///Sun-damaged skin 11/05/2010 12/15/2012 Personal history of other malignant neoplasm of skin 11/05/2010 12/15/2012 Melanocytic nevus of trunk 11/05/201002/14 Solar Lentigines 11/05/2010 12/15/2012 Seborrheic Keratoses 11/05/2010 12/15/2012 Skin tag 11/05/2010 12/15/2012 Pollack angioma 11/05/2010 12/15/2012 Surgical Scars 11/05/2010 12/15/2012 Nonspecific abnormal results of liver function s tudy 04/29/2008 12/13/2011 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/29/200701/27 BPH without obstruction/lower urinary tract symp toms 12/29/2007 02/21/2018 Obesity, unspecified 12/29/2007 02/15/2016 Dermatophytosis of nail 12/29/2007 07/23/20 14 documented as of this encounter (statuses as of 04/03/2023) [facility] [place]2018 History of Past illness Narrative* Problem Noted Date Resolved Date Obesity, Class II, BMI 35-39.9 08/22/2018 1 PVD (peripheral vascular disease) 05/24/2016 02/21/2018 Solar Lentigines 12/18/2013 02/15/2016 Other seborrheic keratosis 12/18/201301/21 Pollack angioma 12/18/2013 02/15/2016 DVT of leg (deep venous thrombosis) 11/16/2013 07/23/2014 Post-operative state 11/16/2013 01/01/2014 Postoperative anemia 10/25/2013 07/23/2014 Overview: Transfused on 10/25 1 U PRBC. H&H 9.2/.3. DC on diuretic taper for dilutional component and MVI with iron and repeat as outpt Elevated LFTs 10/23/2013 01/01/2014 Overview: ALT/AST trending down 124/214. TB rising 1.8. DC on no APAP and add Lipitor 80 for post NSTEMI when LFTs normalize DISPOSITION AND FOLLOW-UP 10/23/20132013 Overview: 63 y/o M, lives in [place], [place]. No skilled needs. 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 Phi Heredia for new cards and Preventive cards and Preventive Nutrition. Primary Care: Sher Jules MD [address] [facility] [id number] Food Quality Technician: Phi Leo M.D. [facility] Cardiology Acute pain 10/22/2013 01/01/2014 Overview: DC on prn Percolone and wean Nodule of right lung 10/22/2013 07/23/2014 Fluid overload 10/21/2013 10/23/2013 Overview: 10/22/2013 fluid overload from surgery - generalized edema and pulm congestion plan - continue gentle diuresis - closely monitor fluid and electrolytes Atelectasis/pleural effusion/volume overload 07/23/2014 Overview: O2 sat 98% on RA. C, DB, PEP and con't to increase activity. Repeat CXR at f/u appt Hypotension 10/20/2013 10/23/2013 Overview: Post op vasoplegia, requiring epi/vaso/levo. off vaso gtt. 10/22/2013 Pressors weaned off overnight. plan - will start low dose BB - continue gentle diuretic Mechanically assisted ventilation 10/20/2013 10/22/2013 Overview: WTE Preoperative testing 10/19/2013 10/26/2013 Overview: CTS: CABG Surgeon: Ruddy Mccartney M.D. Informed Consent Completed: No STS Score: 0.8% Isolated CABG CAD: Yes - CAD on Problem List: Yes Is intended procedure a CABG: Yes - is a beta luis alberto ordered? Yes H & P completed: Yes PA/LAT: Completed CT: N/A MRI: N/A LE US: N/A Cath: Yes - reviewed: Yes Echo:Pending EKG: Pending EF %: P PI's: Pending Carotid: Completed 40-59% bilat Mapping: N/A Dental: N/A PFT's: Pending Basename 10/19/13 0258 WBC 6.47 HB 12.3* HCT 36.7* PLT 217 INR 1.0 CREAT 0.86 UA: PENDING HCG:N/A ABO/ABO Confirmed: PENDING Blood ordered: No SA Swab: Yes - results: Pending Last Dose of Anticoagulation: LD PLAVIX per Epic notes 10/16/13 Op Note: N/A Pacemaker Check: N/A Consults: Interventional Cardiology([facility]) DM: Yes, HgbA1c:6.5 on 10/18/13 Cardiac Surgical prep: PENDING SIGNATURE: Elida Campuzano CNP CHECKED BY: RANDI DATE of SERVICE: 10/19/2013 TIME of SERVICE: 9:44 AM SUMMARY 10/17/2013 07/23/2014 Overview: Admission: NSTEMI Echo: 56%, Stage 1 DD, RV nl ECG: SB at 56 Cards: [facility] Cath: LM 80%, LAD 30% prox, RCA 75% distal, RI 50% prox, 40% mid PMH/PSH: CAD, HTN, DM-2 5-6 yrs, HPL, ETOH (6 drinks/day) PAD s/p L superficial femoral/popliteal/posterior tibial artery artherectomy and angioplasty 07/2010 and right femoral artery arterectomy and angioplasty, right popliteal angioplasty 08/2010 on ASA and Plavix (last dose 10/18). Smoker, quit 11/09. Obesity (BMI >34), ? ERASMO? Events: PRBC Surgery 10/20/13: CABG x 3: WRIGHT>LAD, SVG>PDA, SVG>OM1 Echo: 65%, Stage 1 DD, RV normal. Small pericardial effusion w/o signs of tamponade 10/26/13: -SR. Post NSTEMI, Peak TpnT 0.216 -O2 sat 98% on RA -Elevated LFT's trending down, DC on no APAP -Ambulating without difficulty -HTN: DC on BB, Lasix, HEENA-I -Dulcolax prior to DC for BM -HPL: DC on no statin in light of LFT elevation: recommend add when normalize -DC: , from [place], [place], no skilled needs. Request f/u Dr. 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 Hold statin d/t elevated LFT's, resume once normalize Irritated//Inflamed Seborrheic Keratosis 011 12/15/2012 Actinic Keratoses (Premalignant AK's) 11/05/2010 01/01/2014 Actinic Damage///Sun-damaged skin 11/05/2010 12/15/2012 Personal history of other malignant neoplasm of skin 11/05/2010 12/15/2012 Melanocytic nevus of trunk 11/05/201002/14 Solar Lentigines 11/05/2010 12/15/2012 Seborrheic Keratoses 11/05/2010 12/15/2012 Skin tag 11/05/2010 12/15/2012 Pollack angioma 11/05/2010 12/15/2012 Surgical Scars 11/05/2010 12/15/2012 Nonspecific abnormal results of liver function s tudy 04/29/2008 12/13/2011 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/29/200701/27 BPH without obstruction/lower urinary tract symp toms 12/29/2007 02/21/2018 Obesity, unspecified 12/29/2007 02/15/2016 Dermatophytosis of nail 12/29/2007 07/23/20 14 documented as of this encounter (statuses as of 04/09/2023) [facility]2018 History of Past illness Narrative* Problem Noted Date Diagnosed Date Resolved Date Obesity, Class II, BMI 35-39.9 08/22/2018 08/06/2019 Solar Lentigines 12/18/2013 02/15/2016 Other seborrheic keratosis 12/18/2013 0 01/21/2015 Pollack angioma 12/18/2013 02/15/2016 DVT of leg (deep venous thrombosis) 11/16/2013 07/23/2014 Post-operative state 11/16/2013 014 Postoperative anemia 10/25/2013 014 Overview: Transfused on 10/25 1 U PRBC. H&H 9.2/26.3. DC on diuretic taper for dilutional component and MVI with iron and repeat as outpt Elevated LFTs 10/23/2013 01/01/2014 Overview: ALT/AST trending down 124/214. TB rising 1.8. DC on no APAP and add Lipitor 80 for post NSTEMI when LFTs normalize DISPOSITION AND FOLLOW-UP 10/23/2013 Overview: 63 y/o M, lives in [place], [place]. No skilled needs. 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 Phi Heredia for new cards and Preventive cards and Preventive Nutrition. Primary Care: Sher Jules MD [address] [facility] [id number] Food Quality Technician: Phi Leo M.D. [facility] Cardiology Acute pain 10/22/2013 01/01/2014 Overview: DC on prn Percolone and wean Nodule of right lung 10/22/2013 014 Fluid overload 10/21/2013 10/23/2013 Overview: 10/22/2013 fluid overload from surgery - generalized edema and pulm congestion plan - continue gentle diuresis - closely monitor fluid and electrolytes Atelectasis/pleural effusion/volume overload 3 07/23/2014 Overview: O2 sat 98% on RA. C, DB, PEP and con't to increase activity. Repeat CXR at f/u appt Hypotension 10/20/2013 10/23/2013 Overview: Post op vasoplegia, requiring epi/vaso/levo. off vaso gtt. 10/22/2013 Pressors weaned off overnight. plan - will start low dose BB - continue gentle diuretic Mechanically assisted ventilation 10/20/2013 10/22/2013 Overview: WTE SUMMARY 10/17/2013 07/23/2014 Overview: Admission: NSTEMI Echo: 56%, Stage 1 DD, RV nl ECG: SB at 56 Cards: [facility] Cath: LM 80%, LAD 30% prox, RCA 75% distal, RI 50% prox, 40% mid PMH/PSH: CAD, HTN, DM-2 5-6 yrs, HPL, ETOH (6 drinks/day) PAD s/p L superficial femoral/popliteal/posterior tibial artery artherectomy and angioplasty 07/2010 and right femoral artery arterectomy and angioplasty, right popliteal angioplasty 08/2010 on ASA and Plavix (last dose 10/18). Smoker, quit 11/09. Obesity (BMI >34), ? ERASMO? Events: PRBC Surgery 10/20/13: CABG x 3: WRIGHT>LAD, SVG>PDA, SVG>OM1 Echo: 65%, Stage 1 DD, RV normal. Small pericardial effusion w/o signs of tamponade 10/26/13: -SR. Post NSTEMI, Peak TpnT 0.216 -O2 sat 98% on RA -Elevated LFT's trending down, DC on no APAP -Ambulating without difficulty -HTN: DC on BB, Lasix, HEENA-I -Dulcolax prior to DC for BM -HPL: DC on no statin in light of LFT elevation: recommend add when normalize -DC: , from [place], no skilled needs. Request f/u Dr. 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 Hold statin d/t elevated LFT's, resume once normalize Irritated//Inflamed Seborrheic Keratosis 11/05/2010 12/15/2012 Actinic Keratoses (Premalignant AK's) 11/05/2010 01/01/2014 Actinic Damage///Sun-damaged skin 11/05/2010 12/15/2012 Personal history of other ma lignant neoplasm of skin 11/05/2010 12/15/2012 Melanocytic nevus of trunk 11/05/2010 0 02/15/2016 Solar Lentigines 11/05/2010 12/15/2012 Seborrheic Keratoses 11/05/2010 013 Skin tag 11/05/2010 12/15/2012 Pollack angioma 11/05/2010 12/15/2012 Surgical Scars 11/05/2010 12/15/2012 Nonspecific abnormal results of liver function study 04/29/2008 12/13/2011 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/29/2007 02/15/2016 BPH without obstruction/lowe r urinary tract symptoms 12/29/2007 02/21/2018 Obesity, unspecified 12/29/2007 016 Dermatophytosis of nail 12/29/200706/29 documented as of this encounter (statuses as of 05/07/2023) [facility] [place]10-26-2018 History of Past illness Narrative* Problem Noted Date Diagnosed Date Resolved Date Obesity, Class II, BMI 35-39.9 08/22/2018 08/06/2019 Solar Lentigines 12/18/2013 02/15/2016 Other seborrheic keratosis 12/18/2013 0 01/21/2015 Pollack angioma 12/18/2013 02/15/2016 DVT of leg (deep venous thrombosis) 11/16/2013 07/23/2014 Post-operative state 11/16/2013 014 Postoperative anemia 10/25/2013 014 Overview: Transfused on 10/25 1 U PRBC. H&H 9.12/23.3. DC on diuretic taper for dilutional component and MVI with iron and repeat as outpt Elevated LFTs 10/23/2013 01/01/2014 Overview: ALT/AST trending down 124/214. TB rising 1.8. DC on no APAP and add Lipitor 80 for post NSTEMI when LFTs normalize DISPOSITION AND FOLLOW-UP 10/23/2013 Overview: 63 y/o M, lives in [place], [place]. No skilled needs. 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 Phi Heredia for new cards and Preventive cards and Preventive Nutrition. Primary Care: Sher Jules MD [address] [facility] [id number] Food Quality Technician: Phi Leo M.D. [place] [facility] Acute pain 10/22/2013 01/01/2014 Overview: DC on prn Percolone and wean Nodule of right lung 10/22/2013 014 Fluid overload 10/21/2013 10/23/2013 Overview: 10/22/2013 fluid overload from surgery - generalized edema and pulm congestion plan - continue gentle diuresis - closely monitor fluid and electrolytes Atelectasis/pleural effusion/volume overload 3 07/23/2014 Overview: O2 sat 98% on RA. C, DB, PEP and con't to increase activity. Repeat CXR at f/u appt Hypotension 10/20/2013 10/23/2013 Overview: Post op vasoplegia, requiring epi/vaso/levo. off vaso gtt. 10/22/2013 Pressors weaned off overnight. plan - will start low dose BB - continue gentle diuretic Mechanically assisted ventilation 10/20/2013 10/22/2013 Overview: WTE SUMMARY 10/17/2013 07/23/2014 Overview: Admission: NSTEMI Echo: 56%, Stage 1 DD, RV nl ECG: SB at 56 Cards: [facility] Cath: LM 80%, LAD 30% prox, RCA 75% distal, RI 50% prox, 40% mid PMH/PSH: CAD, HTN, DM-2 5-6 yrs, HPL, ETOH (6 drinks/day) PAD s/p L superficial femoral/popliteal/posterior tibial artery artherectomy and angioplasty 07/2010 and right femoral artery arterectomy and angioplasty, right popliteal angioplasty 08/2010 on ASA and Plavix (last dose 10/18). Smoker, quit 11/09. Obesity (BMI >34), ? ERASMO? Events: PRBC Surgery 10/20/13: CABG x 3: WRIGHT>LAD, SVG>PDA, SVG>OM1 Echo: 65%, Stage 1 DD, RV normal. Small pericardial effusion w/o signs of tamponade 10/26/13: -SR. Post NSTEMI, Peak TpnT 0.216 -O2 sat 98% on RA -Elevated LFT's trending down, DC on no APAP -Ambulating without difficulty -HTN: DC on BB, Lasix, HEENA-I -Dulcolax prior to DC for BM -HPL: DC on no statin in light of LFT elevation: recommend add when normalize -DC: , from [place], [place], no skilled needs. Request f/u Dr. 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 Hold statin d/t elevated LFT's, resume once normalize Irritated//Inflamed Seborrheic Keratosis 11/05/2010 12/15/2012 Actinic Keratoses (Premalignant AK's) 11/05/2010 01/01/2014 Actinic Damage///Sun-damaged skin 11/05/2010 12/15/2012 Personal history of other ma lignant neoplasm of skin 11/05/2010 12/15/2012 Melanocytic nevus of trunk 11/05/2010 0 02/15/2016 Solar Lentigines 11/05/2010 12/15/2012 Seborrheic Keratoses 11/05/2010 013 Skin tag 11/05/2010 12/15/2012 Pollack angioma 11/05/2010 12/15/2012 Surgical Scars 11/05/2010 12/15/2012 Nonspecific abnormal results of liver function study 04/29/2008 12/13/2011 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/29/2007 02/15/2016 BPH without obstruction/lowe r urinary tract symptoms 12/29/2007 02/21/2018 Obesity, unspecified 12/29/2007 016 Dermatophytosis of nail 12/29/200706/29 documented as of this encounter (statuses as of 07/27/2023) [facility] [place]10-26-2018 History of Past illness Narrative* Problem Noted Date Diagnosed Date Resolved Date Obesity, Class II, BMI 35-39.9 08/22/2018 08/06/2019 Solar Lentigines 12/18/2013 02/15/2016 Other seborrheic keratosis 12/18/2013 0 01/21/2015 Pollack angioma 12/18/2013 02/15/2016 DVT of leg (deep venous thrombosis) 11/16/2013 07/23/2014 Post-operative state 11/16/2013 014 Postoperative anemia 10/25/2013 014 Overview: Transfused on 10/25 1 U PRBC. H&H 9.2.3. DC on diuretic taper for dilutional component and MVI with iron and repeat as outpt Elevated LFTs 10/23/2013 01/01/2014 Overview: ALT/AST trending down 124/214. TB rising 1.8. DC on no APAP and add Lipitor 80 for post NSTEMI when LFTs normalize DISPOSITION AND FOLLOW-UP 10/23/2013 Overview: 63 y/o M, lives in [place], [place]. No skilled needs. 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 Phi Heredia for new cards and Preventive cards and Preventive Nutrition. Primary Care: Sher Jules MD [address] [facility] [id number] Food Quality Technician: Phi eLo M.D. [place] [facility] Acute pain 10/22/2013 01/01/2014 Overview: DC on prn Percolone and wean Nodule of right lung 10/22/2013 014 Fluid overload 10/21/2013 10/23/2013 Overview: 10/22/2013 fluid overload from surgery - generalized edema and pulm congestion plan - continue gentle diuresis - closely monitor fluid and electrolytes Atelectasis/pleural effusion/volume overload 3 07/23/2014 Overview: O2 sat 98% on RA. C, DB, PEP and con't to increase activity. Repeat CXR at f/u appt Hypotension 10/20/2013 10/23/2013 Overview: Post op vasoplegia, requiring epi/vaso/levo. off vaso gtt. 10/22/2013 Pressors weaned off overnight. plan - will start low dose BB - continue gentle diuretic Mechanically assisted ventilation 10/20/2013 10/22/2013 Overview: WTE SUMMARY 10/17/2013 07/23/2014 Overview: Admission: NSTEMI Echo: 56%, Stage 1 DD, RV nl ECG: SB at 56 Cards: [facility] Cath: LM 80%, LAD 30% prox, RCA 75% distal, RI 50% prox, 40% mid PMH/PSH: CAD, HTN, DM-2 5-6 yrs, HPL, ETOH (6 drinks/day) PAD s/p L superficial femoral/popliteal/posterior tibial artery artherectomy and angioplasty 07/2010 and right femoral artery arterectomy and angioplasty, right popliteal angioplasty 08/2010 on ASA and Plavix (last dose 10/18). Smoker, quit 11/09. Obesity (BMI >34), ? ERASMO? Events: PRBC Surgery 10/20/13: CABG x 3: WRIGHT>LAD, SVG>PDA, SVG>OM1 Echo: 65%, Stage 1 DD, RV normal. Small pericardial effusion w/o signs of tamponade 10/26/13: -SR. Post NSTEMI, Peak TpnT 0.216 -O2 sat 98% on RA -Elevated LFT's trending down, DC on no APAP -Ambulating without difficulty -HTN: DC on BB, Lasix, HEENA-I -Dulcolax prior to DC for BM -HPL: DC on no statin in light of LFT elevation: recommend add when normalize -DC: , from [place], [place], no skilled needs. Request f/u Dr. 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 Hold statin d/t elevated LFT's, resume once normalize Irritated//Inflamed Seborrheic Keratosis 11/05/2010 12/15/2012 Actinic Keratoses (Premalignant AK's) 11/05/2010 01/01/2014 Actinic Damage///Sun-damaged skin 11/05/2010 12/15/2012 Personal history of other ma lignant neoplasm of skin 11/05/2010 12/15/2012 Melanocytic nevus of trunk 11/05/2010 0 02/15/2016 Solar Lentigines 11/05/2010 12/15/2012 Seborrheic Keratoses 11/05/2010 013 Skin tag 11/05/2010 12/15/2012 Pollack angioma 11/05/2010 12/15/2012 Surgical Scars 11/05/2010 12/15/2012 Nonspecific abnormal results of liver function study 04/29/2008 12/13/2011 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/29/2007 02/15/2016 BPH without obstruction/lowe r urinary tract symptoms 12/29/2007 02/21/2018 Obesity, unspecified 12/29/2007 016 Dermatophytosis of nail 12/29/200706/29 documented as of this encounter (statuses as of 08/09/2023) [facility] [place]10-26-2018 History of Past illness Narrative* Problem Noted Date Diagnosed Date Resolved Date Obesity, Class II, BMI 35-39.9 08/22/2018 08/06/2019 Solar Lentigines 12/18/2013 02/15/2016 Other seborrheic keratosis 12/18/2013 0 01/21/2015 Pollack angioma 12/18/2013 02/15/2016 DVT of leg (deep venous thrombosis) 11/16/2013 07/23/2014 Post-operative state 11/16/2013 014 Postoperative anemia 10/25/2013 014 Overview: Transfused on 10/25 1 U PRBC. H&H 9.2/26.3. DC on diuretic taper for dilutional component and MVI with iron and repeat as outpt Elevated LFTs 10/23/2013 01/01/2014 Overview: ALT/AST trending down 124/214. TB rising 1.8. DC on no APAP and add Lipitor 80 for post NSTEMI when LFTs normalize DISPOSITION AND FOLLOW-UP 10/23/2013 Overview: 63 y/o M, lives in [place], [place]. No skilled needs. 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 Phi Heredia for new cards and Preventive cards and Preventive Nutrition. Primary Care: Sher Jules MD [address] [facility] [id number] Food Quality Technician: Phi Leo M.D. [place] [facility] Acute pain 10/22/2013 01/01/2014 Overview: DC on prn Percolone and wean Nodule of right lung 10/22/2013 014 Fluid overload 10/21/2013 10/23/2013 Overview: 10/22/2013 fluid overload from surgery - generalized edema and pulm congestion plan - continue gentle diuresis - closely monitor fluid and electrolytes Atelectasis/pleural effusion/volume overload 3 07/23/2014 Overview: O2 sat 98% on RA. C, DB, PEP and con't to increase activity. Repeat CXR at f/u appt Hypotension 10/20/2013 10/23/2013 Overview: Post op vasoplegia, requiring epi/vaso/levo. off vaso gtt. 10/22/2013 Pressors weaned off overnight. plan - will start low dose BB - continue gentle diuretic Mechanically assisted ventilation 10/20/2013 10/22/2013 Overview: WTE SUMMARY 10/17/2013 07/23/2014 Overview: Admission: NSTEMI Echo: 56%, Stage 1 DD, RV nl ECG: SB at 56 Cards: [facility] Cath: LM 80%, LAD 30% prox, RCA 75% distal, RI 50% prox, 40% mid PMH/PSH: CAD, HTN, DM-2 5-6 yrs, HPL, ETOH (6 drinks/day) PAD s/p L superficial femoral/popliteal/posterior tibial artery artherectomy and angioplasty 07/2010 and right femoral artery arterectomy and angioplasty, right popliteal angioplasty 08/2010 on ASA and Plavix (last dose 10/18). Smoker, quit 11/09. Obesity (BMI >34), ? ERASMO? Events: PRBC Surgery 10/20/13: CABG x 3: WRIGHT>LAD, SVG>PDA, SVG>OM1 Echo: 65%, Stage 1 DD, RV normal. Small pericardial effusion w/o signs of tamponade 10/26/13: -SR. Post NSTEMI, Peak TpnT 0.216 -O2 sat 98% on RA -Elevated LFT's trending down, DC on no APAP -Ambulating without difficulty -HTN: DC on BB, Lasix, HEENA-I -Dulcolax prior to DC for BM -HPL: DC on no statin in light of LFT elevation: recommend add when normalize -DC: , from [place], [place], no skilled needs. Request f/u Dr. 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 Hold statin d/t elevated LFT's, resume once normalize Irritated//Inflamed Seborrheic Keratosis 11/05/2010 12/15/2012 Actinic Keratoses (Premalignant AK's) 11/05/2010 01/01/2014 Actinic Damage///Sun-damaged skin 11/05/2010 12/15/2012 Personal history of other ma lignant neoplasm of skin 11/05/2010 12/15/2012 Melanocytic nevus of trunk 11/05/2010 0 02/15/2016 Solar Lentigines 11/05/2010 12/15/2012 Seborrheic Keratoses 11/05/2010 013 Skin tag 11/05/2010 12/15/2012 Pollack angioma 11/05/2010 12/15/2012 Surgical Scars 11/05/2010 12/15/2012 Nonspecific abnormal results of liver function study 04/29/2008 12/13/2011 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/29/2007 02/15/2016 BPH without obstruction/lowe r urinary tract symptoms 12/29/2007 02/21/2018 Obesity, unspecified 12/29/2007 016 Dermatophytosis of nail 12/29/200706/29 documented as of this encounter (statuses as of 09/10/2023) [facility] [place]10-26-2018 History of Past illness Narrative* Problem Noted Date Diagnosed Date Resolved Date Obesity, Class II, BMI 35-39.9 08/22/2018 08/06/2019 Solar Lentigines 12/18/2013 02/15/2016 Other seborrheic keratosis 12/18/2013 0 01/21/2015 Pollack angioma 12/18/2013 02/15/2016 DVT of leg (deep venous thrombosis) 11/16/2013 07/23/2014 Post-operative state 11/16/2013 014 Postoperative anemia 10/25/2013 014 Overview: Transfused on 10/25 1 U PRBC. H&H 9.12/23.3. DC on diuretic taper for dilutional component and MVI with iron and repeat as outpt Elevated LFTs 10/23/2013 01/01/2014 Overview: ALT/AST trending down 124/214. TB rising 1.8. DC on no APAP and add Lipitor 80 for post NSTEMI when LFTs normalize DISPOSITION AND FOLLOW-UP 10/23/2013 Overview: 63 y/o M, lives in [place], [place]. No skilled needs. 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 Phi Heredia for new cards and Preventive cards and Preventive Nutrition. Primary Care: Sher Jules MD [address] [facility] [id number] Food Quality Technician: Phi Leo M.D. [place] [facility] Acute pain 10/22/2013 01/01/2014 Overview: DC on prn Percolone and wean Nodule of right lung 10/22/2013 014 Fluid overload 10/21/2013 10/23/2013 Overview: 10/22/2013 fluid overload from surgery - generalized edema and pulm congestion plan - continue gentle diuresis - closely monitor fluid and electrolytes Atelectasis/pleural effusion/volume overload 3 07/23/2014 Overview: O2 sat 98% on RA. C, DB, PEP and con't to increase activity. Repeat CXR at f/u appt Hypotension 10/20/2013 10/23/2013 Overview: Post op vasoplegia, requiring epi/vaso/levo. off vaso gtt. 10/22/2013 Pressors weaned off overnight. plan - will start low dose BB - continue gentle diuretic Mechanically assisted ventilation 10/20/2013 10/22/2013 Overview: WTE SUMMARY 10/17/2013 07/23/2014 Overview: Admission: NSTEMI Echo: 56%, Stage 1 DD, RV nl ECG: SB at 56 Cards: [facility] Cath: LM 80%, LAD 30% prox, RCA 75% distal, RI 50% prox, 40% mid PMH/PSH: CAD, HTN, DM-2 5-6 yrs, HPL, ETOH (6 drinks/day) PAD s/p L superficial femoral/popliteal/posterior tibial artery artherectomy and angioplasty 07/2010 and right femoral artery arterectomy and angioplasty, right popliteal angioplasty 08/2010 on ASA and Plavix (last dose 10/18). Smoker, quit 11/09. Obesity (BMI >34), ? ERASMO? Events: PRBC Surgery 10/20/13: CABG x 3: WRIGHT>LAD, SVG>PDA, SVG>OM1 Echo: 65%, Stage 1 DD, RV normal. Small pericardial effusion w/o signs of tamponade 10/26/13: -SR. Post NSTEMI, Peak TpnT 0.216 -O2 sat 98% on RA -Elevated LFT's trending down, DC on no APAP -Ambulating without difficulty -HTN: DC on BB, Lasix, HEENA-I -Dulcolax prior to DC for BM -HPL: DC on no statin in light of LFT elevation: recommend add when normalize -DC: , from [place], [place], no skilled needs. Request f/u Dr. 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 Hold statin d/t elevated LFT's, resume once normalize Irritated//Inflamed Seborrheic Keratosis 11/05/2010 12/15/2012 Actinic Keratoses (Premalignant AK's) 11/05/2010 01/01/2014 Actinic Damage///Sun-damaged skin 11/05/2010 12/15/2012 Personal history of other ma lignant neoplasm of skin 11/05/2010 12/15/2012 Melanocytic nevus of trunk 11/05/2010 0 02/15/2016 Solar Lentigines 11/05/2010 12/15/2012 Seborrheic Keratoses 11/05/2010 013 Skin tag 11/05/2010 12/15/2012 Pollack angioma 11/05/2010 12/15/2012 Surgical Scars 11/05/2010 12/15/2012 Nonspecific abnormal results of liver function study 04/29/2008 12/13/2011 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/29/2007 02/15/2016 BPH without obstruction/lowe r urinary tract symptoms 12/29/2007 02/21/2018 Obesity, unspecified 12/29/2007 016 Dermatophytosis of nail 12/29/200706/29 documented as of this encounter (statuses as of 10/01/2023) [facility] [place]2018 History of Past illness Narrative* Problem Noted Date Diagnosed Date Resolved Date Obesity, Class II, BMI 35-39.9 08/22/2018 08/06/2019 Solar Lentigines 12/18/2013 02/15/2016 Other seborrheic keratosis 12/18/2013 0 01/21/2015 Pollack angioma 12/18/2013 02/15/2016 DVT of leg (deep venous thrombosis) 11/16/2013 07/23/2014 Post-operative state 11/16/2013 014 Postoperative anemia 10/25/2013 014 Overview: Transfused on 10/25 1 U PRBC. H&H 9.2/26.3. DC on diuretic taper for dilutional component and MVI with iron and repeat as outpt Elevated LFTs 10/23/2013 01/01/2014 Overview: ALT/AST trending down 124/214. TB rising 1.8. DC on no APAP and add Lipitor 80 for post NSTEMI when LFTs normalize DISPOSITION AND FOLLOW-UP 10/23/2013 Overview: 63 y/o M, lives in [place], [place]. No skilled needs. 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 Phi Heredia for new cards and Preventive cards and Preventive Nutrition. Primary Care: Sher Jules MD [address] [facility] [id number] Food Quality Technician: Phi Leo M.D. [place] [facility] Acute pain 10/22/2013 01/01/2014 Overview: DC on prn Percolone and wean Nodule of right lung 10/22/2013 014 Fluid overload 10/21/2013 10/23/2013 Overview: 10/22/2013 fluid overload from surgery - generalized edema and pulm congestion plan - continue gentle diuresis - closely monitor fluid and electrolytes Atelectasis/pleural effusion/volume overload 3 07/23/2014 Overview: O2 sat 98% on RA. C, DB, PEP and con't to increase activity. Repeat CXR at f/u appt Hypotension 10/20/2013 10/23/2013 Overview: Post op vasoplegia, requiring epi/vaso/levo. off vaso gtt. 10/22/2013 Pressors weaned off overnight. plan - will start low dose BB - continue gentle diuretic Mechanically assisted ventilation 10/20/2013 10/22/2013 Overview: WTE SUMMARY 10/17/2013 07/23/2014 Overview: Admission: NSTEMI Echo: 56%, Stage 1 DD, RV nl ECG: SB at 56 Cards: [facility] Cath: LM 80%, LAD 30% prox, RCA 75% distal, RI 50% prox, 40% mid PMH/PSH: CAD, HTN, DM-2 5-6 yrs, HPL, ETOH (6 drinks/day) PAD s/p L superficial femoral/popliteal/posterior tibial artery artherectomy and angioplasty 07/2010 and right femoral artery arterectomy and angioplasty, right popliteal angioplasty 08/2010 on ASA and Plavix (last dose 10/18). Smoker, quit 11/09. Obesity (BMI >34), ? ERASMO? Events: PRBC Surgery 10/20/13: CABG x 3: WRIGHT>LAD, SVG>PDA, SVG>OM1 Echo: 65%, Stage 1 DD, RV normal. Small pericardial effusion w/o signs of tamponade 10/26/13: -SR. Post NSTEMI, Peak TpnT 0.216 -O2 sat 98% on RA -Elevated LFT's trending down, DC on no APAP -Ambulating without difficulty -HTN: DC on BB, Lasix, HEENA-I -Dulcolax prior to DC for BM -HPL: DC on no statin in light of LFT elevation: recommend add when normalize -DC: , from [place], no skilled needs. Request f/u Dr. 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 Hold statin d/t elevated LFT's, resume once normalize Irritated//Inflamed Seborrheic Keratosis 11/05/2010 12/15/2012 Actinic Keratoses (Premalignant AK's) 11/05/2010 01/01/2014 Actinic Damage///Sun-damaged skin 11/05/2010 12/15/2012 Personal history of other ma lignant neoplasm of skin 11/05/2010 12/15/2012 Melanocytic nevus of trunk 11/05/2010 0 02/15/2016 Solar Lentigines 11/05/2010 12/15/2012 Seborrheic Keratoses 11/05/2010 013 Skin tag 11/05/2010 12/15/2012 Pollack angioma 11/05/2010 12/15/2012 Surgical Scars 11/05/2010 12/15/2012 Nonspecific abnormal results of liver function study 04/29/2008 12/13/2011 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/29/2007 02/15/2016 BPH without obstruction/lowe r urinary tract symptoms 12/29/2007 02/21/2018 Obesity, unspecified 12/29/2007 016 Dermatophytosis of nail 12/29/200706/29 documented as of this encounter (statuses as of 11/03/2023) [facility] [place]2018 History of Past illness Narrative* Problem Noted Date Diagnosed Date Resolved Date Obesity, Class II, BMI 35-39.9 08/22/2018 08/06/2019 Solar Lentigines 12/18/2013 02/15/2016 Other seborrheic keratosis 12/18/2013 0 01/21/2015 Pollack angioma 12/18/2013 02/15/2016 DVT of leg (deep venous thrombosis) 11/16/2013 07/23/2014 Post-operative state 11/16/2013 014 Postoperative anemia 10/25/2013 014 Overview: Transfused on 10/25 1 U PRBC. H&H 9.2/.3. DC on diuretic taper for dilutional component and MVI with iron and repeat as outpt Elevated LFTs 10/23/2013 01/01/2014 Overview: ALT/AST trending down 124/214. TB rising 1.8. DC on no APAP and add Lipitor 80 for post NSTEMI when LFTs normalize DISPOSITION AND FOLLOW-UP 10/23/2013 Overview: 63 y/o M, lives in [place], [place]. No skilled needs. 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 Phi Heredia for new cards and Preventive cards and Preventive Nutrition. Primary Care: Sher Jules MD [address] [facility] [address] Food Quality Technician: Phi Leo M.D. [place] [facility] Acute pain 10/22/2013 01/01/2014 Overview: DC on prn Percolone and wean Nodule of right lung 10/22/2013 014 Fluid overload 10/21/2013 10/23/2013 Overview: 10/22/2013 fluid overload from surgery - generalized edema and pulm congestion plan - continue gentle diuresis - closely monitor fluid and electrolytes Atelectasis/pleural effusion/volume overload 3 07/23/2014 Overview: O2 sat 98% on RA. C, DB, PEP and con't to increase activity. Repeat CXR at f/u appt Hypotension 10/20/2013 10/23/2013 Overview: Post op vasoplegia, requiring epi/vaso/levo. off vaso gtt. 10/22/2013 Pressors weaned off overnight. plan - will start low dose BB - continue gentle diuretic Mechanically assisted ventilation 10/20/2013 10/22/2013 Overview: WTE SUMMARY 10/17/2013 07/23/2014 Overview: Admission: NSTEMI Echo: 56%, Stage 1 DD, RV nl ECG: SB at 56 Cards: [facility] Cath: LM 80%, LAD 30% prox, RCA 75% distal, RI 50% prox, 40% mid PMH/PSH: CAD, HTN, DM-2 5-6 yrs, HPL, ETOH (6 drinks/day) PAD s/p L superficial femoral/popliteal/posterior tibial artery artherectomy and angioplasty 07/2010 and right femoral artery arterectomy and angioplasty, right popliteal angioplasty 08/2010 on ASA and Plavix (last dose 10/18). Smoker, quit 11/09. Obesity (BMI >34), ? ERASMO? Events: PRBC Surgery 10/20/13: CABG x 3: WRIGHT>LAD, SVG>PDA, SVG>OM1 Echo: 65%, Stage 1 DD, RV normal. Small pericardial effusion w/o signs of tamponade 10/26/13: -SR. Post NSTEMI, Peak TpnT 0.216 -O2 sat 98% on RA -Elevated LFT's trending down, DC on no APAP -Ambulating without difficulty -HTN: DC on BB, Lasix, HEENA-I -Dulcolax prior to DC for BM -HPL: DC on no statin in light of LFT elevation: recommend add when normalize -DC: , from [place], no skilled needs. Request f/u Dr. 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 Hold statin d/t elevated LFT's, resume once normalize Irritated//Inflamed Seborrheic Keratosis 11/05/2010 12/15/2012 Actinic Keratoses (Premalignant AK's) 11/05/2010 01/01/2014 Actinic Damage///Sun-damaged skin 11/05/2010 12/15/2012 Personal history of other ma lignant neoplasm of skin 11/05/2010 12/15/2012 Melanocytic nevus of trunk 11/05/2010 0 02/15/2016 Solar Lentigines 11/05/2010 12/15/2012 Seborrheic Keratoses 11/05/2010 013 Skin tag 11/05/2010 12/15/2012 Pollack angioma 11/05/2010 12/15/2012 Surgical Scars 11/05/2010 12/15/2012 Nonspecific abnormal results of liver function study 04/29/2008 12/13/2011 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/29/2007 02/15/2016 BPH without obstruction/lowe r urinary tract symptoms 12/29/2007 02/21/2018 Obesity, unspecified 12/29/2007 016 Dermatophytosis of nail 12/29/200706/29 documented as of this encounter (statuses as of 12/20/2023) [facility] [place]10-26-2018 History of Past illness Narrative* Problem Noted Date Diagnosed Date Resolved Date Obesity, Class II, BMI 35-39.9 08/22/2018 08/06/2019 Solar Lentigines 12/18/2013 02/15/2016 Other seborrheic keratosis 12/18/2013 0 01/21/2015 Pollack angioma 12/18/2013 02/15/2016 DVT of leg (deep venous thrombosis) 11/16/2013 07/23/2014 Post-operative state 11/16/2013 014 Postoperative anemia 10/25/2013 014 Overview: Transfused on 10/25 1 U PRBC. H&H 9.2/26.3. DC on diuretic taper for dilutional component and MVI with iron and repeat as outpt Elevated LFTs 10/23/2013 01/01/2014 Overview: ALT/AST trending down 124/214. TB rising 1.8. DC on no APAP and add Lipitor 80 for post NSTEMI when LFTs normalize DISPOSITION AND FOLLOW-UP 10/23/2013 Overview: 63 y/o M, lives in [place], [place]. No skilled needs. 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 Phi Heredia for new cards and Preventive cards and Preventive Nutrition. Primary Care: Sher Jules MD [address] [facility] [id number] Food Quality Technician: Phi Leo M.D. [place] [facility] Acute pain 10/22/2013 01/01/2014 Overview: DC on prn Percolone and wean Nodule of right lung 10/22/2013 014 Fluid overload 10/21/2013 10/23/2013 Overview: 10/22/2013 fluid overload from surgery - generalized edema and pulm congestion plan - continue gentle diuresis - closely monitor fluid and electrolytes Atelectasis/pleural effusion/volume overload 3 07/23/2014 Overview: O2 sat 98% on RA. C, DB, PEP and con't to increase activity. Repeat CXR at f/u appt Hypotension 10/20/2013 10/23/2013 Overview: Post op vasoplegia, requiring epi/vaso/levo. off vaso gtt. 10/22/2013 Pressors weaned off overnight. plan - will start low dose BB - continue gentle diuretic Mechanically assisted ventilation 10/20/2013 10/22/2013 Overview: WTE SUMMARY 10/17/2013 07/23/2014 Overview: Admission: NSTEMI Echo: 56%, Stage 1 DD, RV nl ECG: SB at 56 Cards: [facility] Cath: LM 80%, LAD 30% prox, RCA 75% distal, RI 50% prox, 40% mid PMH/PSH: CAD, HTN, DM-2 5-6 yrs, HPL, ETOH (6 drinks/day) PAD s/p L superficial femoral/popliteal/posterior tibial artery artherectomy and angioplasty 07/2010 and right femoral artery arterectomy and angioplasty, right popliteal angioplasty 08/2010 on ASA and Plavix (last dose 10/18). Smoker, quit 11/09. Obesity (BMI >34), ? ERASMO? Events: PRBC Surgery 10/20/13: CABG x 3: WRIGHT>LAD, SVG>PDA, SVG>OM1 Echo: 65%, Stage 1 DD, RV normal. Small pericardial effusion w/o signs of tamponade 10/26/13: -SR. Post NSTEMI, Peak TpnT 0.216 -O2 sat 98% on RA -Elevated LFT's trending down, DC on no APAP -Ambulating without difficulty -HTN: DC on BB, Lasix, HEENA-I -Dulcolax prior to DC for BM -HPL: DC on no statin in light of LFT elevation: recommend add when normalize -DC: , from [place], [place], no skilled needs. Request f/u Dr. 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 Hold statin d/t elevated LFT's, resume once normalize Irritated//Inflamed Seborrheic Keratosis 11/05/2010 12/15/2012 Actinic Keratoses (Premalignant AK's) 11/05/2010 01/01/2014 Actinic Damage///Sun-damaged skin 11/05/2010 12/15/2012 Personal history of other ma lignant neoplasm of skin 11/05/2010 12/15/2012 Melanocytic nevus of trunk 11/05/2010 0 02/15/2016 Solar Lentigines 11/05/2010 12/15/2012 Seborrheic Keratoses 11/05/2010 013 Skin tag 11/05/2010 12/15/2012 Pollack angioma 11/05/2010 12/15/2012 Surgical Scars 11/05/2010 12/15/2012 Nonspecific abnormal results of liver function study 04/29/2008 12/13/2011 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/29/2007 02/15/2016 BPH without obstruction/lowe r urinary tract symptoms 12/29/2007 02/21/2018 Obesity, unspecified 12/29/2007 016 Dermatophytosis of nail 12/29/200706/29 documented as of this encounter (statuses as of 01/06/2024) [facility] [place]10-26-2018 History of Past illness Narrative* Problem Noted Date Diagnosed Date Resolved Date Obesity, Class II, BMI 35-39.9 08/22/2018 08/06/2019 Solar Lentigines 12/18/2013 02/15/2016 Other seborrheic keratosis 12/18/2013 0 01/21/2015 Pollack angioma 12/18/2013 02/15/2016 DVT of leg (deep venous thrombosis) 11/16/2013 07/23/2014 Post-operative state 11/16/2013 014 Postoperative anemia 10/25/2013 014 Overview: Transfused on 10/25 1 U PRBC. H&H 9.12/23.3. DC on diuretic taper for dilutional component and MVI with iron and repeat as outpt Elevated LFTs 10/23/2013 01/01/2014 Overview: ALT/AST trending down 124/214. TB rising 1.8. DC on no APAP and add Lipitor 80 for post NSTEMI when LFTs normalize DISPOSITION AND FOLLOW-UP 10/23/2013 Overview: 63 y/o M, lives in [place], [place]. No skilled needs. 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 Phi Heredia for new cards and Preventive cards and Preventive Nutrition. Primary Care: Sher Jules MD [address] [facility] [id number] Food Quality Technician: Phi Leo M.D. [place] [facility] Acute pain 10/22/2013 01/01/2014 Overview: DC on prn Percolone and wean Nodule of right lung 10/22/2013 014 Fluid overload 10/21/2013 10/23/2013 Overview: 10/22/2013 fluid overload from surgery - generalized edema and pulm congestion plan - continue gentle diuresis - closely monitor fluid and electrolytes Atelectasis/pleural effusion/volume overload 3 07/23/2014 Overview: O2 sat 98% on RA. C, DB, PEP and con't to increase activity. Repeat CXR at f/u appt Hypotension 10/20/2013 10/23/2013 Overview: Post op vasoplegia, requiring epi/vaso/levo. off vaso gtt. 10/22/2013 Pressors weaned off overnight. plan - will start low dose BB - continue gentle diuretic Mechanically assisted ventilation 10/20/2013 10/22/2013 Overview: WTE SUMMARY 10/17/2013 07/23/2014 Overview: Admission: NSTEMI Echo: 56%, Stage 1 DD, RV nl ECG: SB at 56 Cards: [facility] Cath: LM 80%, LAD 30% prox, RCA 75% distal, RI 50% prox, 40% mid PMH/PSH: CAD, HTN, DM-2 5-6 yrs, HPL, ETOH (6 drinks/day) PAD s/p L superficial femoral/popliteal/posterior tibial artery artherectomy and angioplasty 07/2010 and right femoral artery arterectomy and angioplasty, right popliteal angioplasty 08/2010 on ASA and Plavix (last dose 10/18). Smoker, quit 11/09. Obesity (BMI >34), ? ERASMO? Events: PRBC Surgery 10/20/13: CABG x 3: WRIGHT>LAD, SVG>PDA, SVG>OM1 Echo: 65%, Stage 1 DD, RV normal. Small pericardial effusion w/o signs of tamponade 10/26/13: -SR. Post NSTEMI, Peak TpnT 0.216 -O2 sat 98% on RA -Elevated LFT's trending down, DC on no APAP -Ambulating without difficulty -HTN: DC on BB, Lasix, HEENA-I -Dulcolax prior to DC for BM -HPL: DC on no statin in light of LFT elevation: recommend add when normalize -DC: , from [place], [place], no skilled needs. Request f/u Dr. 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 Hold statin d/t elevated LFT's, resume once normalize Irritated//Inflamed Seborrheic Keratosis 11/05/2010 12/15/2012 Actinic Keratoses (Premalignant AK's) 11/05/2010 01/01/2014 Actinic Damage///Sun-damaged skin 11/05/2010 12/15/2012 Personal history of other ma lignant neoplasm of skin 11/05/2010 12/15/2012 Melanocytic nevus of trunk 11/05/2010 0 02/15/2016 Solar Lentigines 11/05/2010 12/15/2012 Seborrheic Keratoses 11/05/2010 013 Skin tag 11/05/2010 12/15/2012 Pollack angioma 11/05/2010 12/15/2012 Surgical Scars 11/05/2010 12/15/2012 Nonspecific abnormal results of liver function study 04/29/2008 12/13/2011 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/29/2007 02/15/2016 BPH without obstruction/lowe r urinary tract symptoms 12/29/2007 02/21/2018 Obesity, unspecified 12/29/2007 016 Dermatophytosis of nail 12/29/200706/29 documented as of this encounter (statuses as of 01/28/2024) [facility] [place]10-26-2018 History of Past illness Narrative* Problem Noted Date Diagnosed Date Resolved Date Obesity, Class II, BMI 35-39.9 08/22/2018 08/06/2019 Solar Lentigines 12/18/2013 02/15/2016 Other seborrheic keratosis 12/18/2013 0 01/21/2015 Pollack angioma 12/18/2013 02/15/2016 DVT of leg (deep venous thrombosis) 11/16/2013 07/23/2014 Post-operative state 11/16/2013 014 Postoperative anemia 10/25/2013 014 Overview: Transfused on 10/25 1 U PRBC. H&H 9.2/26.3. DC on diuretic taper for dilutional component and MVI with iron and repeat as outpt Elevated LFTs 10/23/2013 01/01/2014 Overview: ALT/AST trending down 124/214. TB rising 1.8. DC on no APAP and add Lipitor 80 for post NSTEMI when LFTs normalize DISPOSITION AND FOLLOW-UP 10/23/2013 Overview: 63 y/o M, lives in [place], [place]. No skilled needs. 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 Phi Heredia for new cards and Preventive cards and Preventive Nutrition. Primary Care: Sher Jules MD [address] [facility] [id number] Food Quality Technician: Phi Leo M.D. [place] [facility] Acute pain 10/22/2013 01/01/2014 Overview: DC on prn Percolone and wean Nodule of right lung 10/22/2013 014 Fluid overload 10/21/2013 10/23/2013 Overview: 10/22/2013 fluid overload from surgery - generalized edema and pulm congestion plan - continue gentle diuresis - closely monitor fluid and electrolytes Atelectasis/pleural effusion/volume overload 3 07/23/2014 Overview: O2 sat 98% on RA. C, DB, PEP and con't to increase activity. Repeat CXR at f/u appt Hypotension 10/20/2013 10/23/2013 Overview: Post op vasoplegia, requiring epi/vaso/levo. off vaso gtt. 10/22/2013 Pressors weaned off overnight. plan - will start low dose BB - continue gentle diuretic Mechanically assisted ventilation 10/20/2013 10/22/2013 Overview: WTE SUMMARY 10/17/2013 07/23/2014 Overview: Admission: NSTEMI Echo: 56%, Stage 1 DD, RV nl ECG: SB at 56 Cards: [facility] Cath: LM 80%, LAD 30% prox, RCA 75% distal, RI 50% prox, 40% mid PMH/PSH: CAD, HTN, DM-2 5-6 yrs, HPL, ETOH (6 drinks/day) PAD s/p L superficial femoral/popliteal/posterior tibial artery artherectomy and angioplasty 07/2010 and right femoral artery arterectomy and angioplasty, right popliteal angioplasty 08/2010 on ASA and Plavix (last dose 10/18). Smoker, quit 11/09. Obesity (BMI >34), ? ERASMO? Events: PRBC Surgery 10/20/13: CABG x 3: WRIGHT>LAD, SVG>PDA, SVG>OM1 Echo: 65%, Stage 1 DD, RV normal. Small pericardial effusion w/o signs of tamponade 10/26/13: -SR. Post NSTEMI, Peak TpnT 0.216 -O2 sat 98% on RA -Elevated LFT's trending down, DC on no APAP -Ambulating without difficulty -HTN: DC on BB, Lasix, HEENA-I -Dulcolax prior to DC for BM -HPL: DC on no statin in light of LFT elevation: recommend add when normalize -DC: , from [place], [place], no skilled needs. Request f/u Dr. 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 Hold statin d/t elevated LFT's, resume once normalize Irritated//Inflamed Seborrheic Keratosis 11/05/2010 12/15/2012 Actinic Keratoses (Premalignant AK's) 11/05/2010 01/01/2014 Actinic Damage///Sun-damaged skin 11/05/2010 12/15/2012 Personal history of other ma lignant neoplasm of skin 11/05/2010 12/15/2012 Melanocytic nevus of trunk 11/05/2010 0 02/15/2016 Solar Lentigines 11/05/2010 12/15/2012 Seborrheic Keratoses 11/05/2010 013 Skin tag 11/05/2010 12/15/2012 Pollack angioma 11/05/2010 12/15/2012 Surgical Scars 11/05/2010 12/15/2012 Nonspecific abnormal results of liver function study 04/29/2008 12/13/2011 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/29/2007 02/15/2016 BPH without obstruction/lowe r urinary tract symptoms 12/29/2007 02/21/2018 Obesity, unspecified 12/29/2007 016 Dermatophytosis of nail 12/29/200706/29 documented as of this encounter (statuses as of 01/28/2024) [facility] [place]10-26-2018 History of Past illness Narrative* Problem Noted Date Diagnosed Date Resolved Date Obesity, Class II, BMI 35-39.9 08/22/2018 08/06/2019 Solar Lentigines 12/18/2013 02/15/2016 Other seborrheic keratosis 12/18/2013 0 01/21/2015 Pollack angioma 12/18/2013 02/15/2016 DVT of leg (deep venous thrombosis) 11/16/2013 07/23/2014 Post-operative state 11/16/2013 014 Postoperative anemia 10/25/2013 014 Overview: Transfused on 10/25 1 U PRBC. H&H 9.2/26.3. DC on diuretic taper for dilutional component and MVI with iron and repeat as outpt Elevated LFTs 10/23/2013 01/01/2014 Overview: ALT/AST trending down 124/214. TB rising 1.8. DC on no APAP and add Lipitor 80 for post NSTEMI when LFTs normalize DISPOSITION AND FOLLOW-UP 10/23/2013 Overview: 63 y/o M, lives in [place], [place]. No skilled needs. 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 Phi Heredia for new cards and Preventive cards and Preventive Nutrition. Primary Care: Sher Jules MD [address] [facility] [id number] Food Quality Technician: Phi Leo M.D. [place] [facility] Acute pain 10/22/2013 01/01/2014 Overview: DC on prn Percolone and wean Nodule of right lung 10/22/2013 014 Fluid overload 10/21/2013 10/23/2013 Overview: 10/22/2013 fluid overload from surgery - generalized edema and pulm congestion plan - continue gentle diuresis - closely monitor fluid and electrolytes Atelectasis/pleural effusion/volume overload 3 07/23/2014 Overview: O2 sat 98% on RA. C, DB, PEP and con't to increase activity. Repeat CXR at f/u appt Hypotension 10/20/2013 10/23/2013 Overview: Post op vasoplegia, requiring epi/vaso/levo. off vaso gtt. 10/22/2013 Pressors weaned off overnight. plan - will start low dose BB - continue gentle diuretic Mechanically assisted ventilation 10/20/2013 10/22/2013 Overview: WTE SUMMARY 10/17/2013 07/23/2014 Overview: Admission: NSTEMI Echo: 56%, Stage 1 DD, RV nl ECG: SB at 56 Cards: [facility] Cath: LM 80%, LAD 30% prox, RCA 75% distal, RI 50% prox, 40% mid PMH/PSH: CAD, HTN, DM-2 5-6 yrs, HPL, ETOH (6 drinks/day) PAD s/p L superficial femoral/popliteal/posterior tibial artery artherectomy and angioplasty 07/2010 and right femoral artery arterectomy and angioplasty, right popliteal angioplasty 08/2010 on ASA and Plavix (last dose 10/18). Smoker, quit 11/09. Obesity (BMI >34), ? ERASMO? Events: PRBC Surgery 10/20/13: CABG x 3: WRIGHT>LAD, SVG>PDA, SVG>OM1 Echo: 65%, Stage 1 DD, RV normal. Small pericardial effusion w/o signs of tamponade 10/26/13: -SR. Post NSTEMI, Peak TpnT 0.216 -O2 sat 98% on RA -Elevated LFT's trending down, DC on no APAP -Ambulating without difficulty -HTN: DC on BB, Lasix, HEENA-I -Dulcolax prior to DC for BM -HPL: DC on no statin in light of LFT elevation: recommend add when normalize -DC: , from [place], no skilled needs. Request f/u Dr. 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 Hold statin d/t elevated LFT's, resume once normalize Irritated//Inflamed Seborrheic Keratosis 11/05/2010 12/15/2012 Actinic Keratoses (Premalignant AK's) 11/05/2010 01/01/2014 Actinic Damage///Sun-damaged skin 11/05/2010 12/15/2012 Personal history of other ma lignant neoplasm of skin 11/05/2010 12/15/2012 Melanocytic nevus of trunk 11/05/2010 0 02/15/2016 Solar Lentigines 11/05/2010 12/15/2012 Seborrheic Keratoses 11/05/2010 013 Skin tag 11/05/2010 12/15/2012 Pollack angioma 11/05/2010 12/15/2012 Surgical Scars 11/05/2010 12/15/2012 Nonspecific abnormal results of liver function study 04/29/2008 12/13/2011 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/29/2007 02/15/2016 BPH without obstruction/lowe r urinary tract symptoms 12/29/2007 02/21/2018 Obesity, unspecified 12/29/2007 016 Dermatophytosis of nail 12/29/200706/29 documented as of this encounter (statuses as of 2024) [facility] [place]10-26-2018 History of Past illness Narrative* Problem Noted Date Diagnosed Date Resolved Date Obesity, Class II, BMI 35-39.9 08/22/2018 08/06/2019 Solar Lentigines 12/18/2013 02/15/2016 Other seborrheic keratosis 12/18/2013 0 01/21/2015 Pollack angioma 12/18/2013 02/15/2016 DVT of leg (deep venous thrombosis) 11/16/2013 07/23/2014 Post-operative state 11/16/2013 014 Postoperative anemia 10/25/2013 014 Overview: Transfused on 10/25 1 U PRBC. H&H 9./.3. DC on diuretic taper for dilutional component and MVI with iron and repeat as outpt Elevated LFTs 10/23/2013 01/01/2014 Overview: ALT/AST trending down 124/214. TB rising 1.8. DC on no APAP and add Lipitor 80 for post NSTEMI when LFTs normalize DISPOSITION AND FOLLOW-UP 10/23/2013 Overview: 63 y/o M, lives in [place], [place]. No skilled needs. 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 Phi Heredia for new cards and Preventive cards and Preventive Nutrition. Primary Care: Sher Jules MD [address] [facility] [id number] Food Quality Technician: Phi Leo M.D. [facility] Acute pain 10/22/2013 01/01/2014 Overview: DC on prn Percolone and wean Nodule of right lung 10/22/2013 014 Fluid overload 10/21/2013 10/23/2013 Overview: 10/22/2013 fluid overload from surgery - generalized edema and pulm congestion plan - continue gentle diuresis - closely monitor fluid and electrolytes Atelectasis/pleural effusion/volume overload 3 07/23/2014 Overview: O2 sat 98% on RA. C, DB, PEP and con't to increase activity. Repeat CXR at f/u appt Hypotension 10/20/2013 10/23/2013 Overview: Post op vasoplegia, requiring epi/vaso/levo. off vaso gtt. 10/22/2013 Pressors weaned off overnight. plan - will start low dose BB - continue gentle diuretic Mechanically assisted ventilation 10/20/2013 10/22/2013 Overview: WTE SUMMARY 10/17/2013 07/23/2014 Overview: Admission: NSTEMI Echo: 56%, Stage 1 DD, RV nl ECG: SB at 56 Cards: [facility] Cath: LM 80%, LAD 30% prox, RCA 75% distal, RI 50% prox, 40% mid PMH/PSH: CAD, HTN, DM-2 5-6 yrs, HPL, ETOH (6 drinks/day) PAD s/p L superficial femoral/popliteal/posterior tibial artery artherectomy and angioplasty 07/2010 and right femoral artery arterectomy and angioplasty, right popliteal angioplasty 08/2010 on ASA and Plavix (last dose 10/18). Smoker, quit 11/09. Obesity (BMI >34), ? ERASMO? Events: PRBC Surgery 10/20/13: CABG x 3: WRIGHT>LAD, SVG>PDA, SVG>OM1 Echo: 65%, Stage 1 DD, RV normal. Small pericardial effusion w/o signs of tamponade 10/26/13: -SR. Post NSTEMI, Peak TpnT 0.216 -O2 sat 98% on RA -Elevated LFT's trending down, DC on no APAP -Ambulating without difficulty -HTN: DC on BB, Lasix, HEENA-I -Dulcolax prior to DC for BM -HPL: DC on no statin in light of LFT elevation: recommend add when normalize -DC: , from [place], no skilled needs. Request f/u Dr. 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 Hold statin d/t elevated LFT's, resume once normalize Irritated//Inflamed Seborrheic Keratosis 11/05/2010 12/15/2012 Actinic Keratoses (Premalignant AK's) 11/05/2010 01/01/2014 Actinic Damage///Sun-damaged skin 11/05/2010 12/15/2012 Personal history of other ma lignant neoplasm of skin 11/05/2010 12/15/2012 Melanocytic nevus of trunk 11/05/2010 0 02/15/2016 Solar Lentigines 11/05/2010 12/15/2012 Seborrheic Keratoses 11/05/2010 013 Skin tag 11/05/2010 12/15/2012 Pollack angioma 11/05/2010 12/15/2012 Surgical Scars 11/05/2010 12/15/2012 Nonspecific abnormal results of liver function study 04/29/2008 12/13/2011 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/29/2007 02/15/2016 BPH without obstruction/lowe r urinary tract symptoms 12/29/2007 02/21/2018 Obesity, unspecified 12/29/2007 016 Dermatophytosis of nail 12/29/200706/29 documented as of this encounter (statuses as of 01/28/2024) [facility] [place]2018 History of Past illness Narrative* Problem Noted Date Diagnosed Date Resolved Date Obesity, Class II, BMI 35-39.9 08/22/2018 08/06/2019 Solar Lentigines 12/18/2013 02/15/2016 Other seborrheic keratosis 12/18/2013 0 01/21/2015 Pollack angioma 12/18/2013 02/15/2016 DVT of leg (deep venous thrombosis) 11/16/2013 07/23/2014 Post-operative state 11/16/2013 014 Postoperative anemia 10/25/2013 014 Overview: Transfused on 10/25 1 U PRBC. H&H 9.2/26.3. DC on diuretic taper for dilutional component and MVI with iron and repeat as outpt Elevated LFTs 10/23/2013 01/01/2014 Overview: ALT/AST trending down 124/214. TB rising 1.8. DC on no APAP and add Lipitor 80 for post NSTEMI when LFTs normalize DISPOSITION AND FOLLOW-UP 10/23/2013 Overview: 63 y/o M, lives in [place], [place]. No skilled needs. 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 Phi Heredia for new cards and Preventive cards and Preventive Nutrition. Primary Care: Sher Jules MD [address] [facility] [id number] Food Quality Technician: Phi Leo M.D. [facility] Acute pain 10/22/2013 01/01/2014 Overview: DC on prn Percolone and wean Nodule of right lung 10/22/2013 014 Fluid overload 10/21/2013 10/23/2013 Overview: 10/22/2013 fluid overload from surgery - generalized edema and pulm congestion plan - continue gentle diuresis - closely monitor fluid and electrolytes Atelectasis/pleural effusion/volume overload 3 07/23/2014 Overview: O2 sat 98% on RA. C, DB, PEP and con't to increase activity. Repeat CXR at f/u appt Hypotension 10/20/2013 10/23/2013 Overview: Post op vasoplegia, requiring epi/vaso/levo. off vaso gtt. 10/22/2013 Pressors weaned off overnight. plan - will start low dose BB - continue gentle diuretic Mechanically assisted ventilation 10/20/2013 10/22/2013 Overview: WTE SUMMARY 10/17/2013 07/23/2014 Overview: Admission: NSTEMI Echo: 56%, Stage 1 DD, RV nl ECG: SB at 56 Cards: [facility] Cath: LM 80%, LAD 30% prox, RCA 75% distal, RI 50% prox, 40% mid PMH/PSH: CAD, HTN, DM-2 5-6 yrs, HPL, ETOH (6 drinks/day) PAD s/p L superficial femoral/popliteal/posterior tibial artery artherectomy and angioplasty 07/2010 and right femoral artery arterectomy and angioplasty, right popliteal angioplasty 08/2010 on ASA and Plavix (last dose 10/18). Smoker, quit 11/09. Obesity (BMI >34), ? ERASMO? Events: PRBC Surgery 10/20/13: CABG x 3: WRIGHT>LAD, SVG>PDA, SVG>OM1 Echo: 65%, Stage 1 DD, RV normal. Small pericardial effusion w/o signs of tamponade 10/26/13: -SR. Post NSTEMI, Peak TpnT 0.216 -O2 sat 98% on RA -Elevated LFT's trending down, DC on no APAP -Ambulating without difficulty -HTN: DC on BB, Lasix, HEENA-I -Dulcolax prior to DC for BM -HPL: DC on no statin in light of LFT elevation: recommend add when normalize -DC: , from [place], no skilled needs. Request f/u Dr. 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 Hold statin d/t elevated LFT's, resume once normalize Irritated//Inflamed Seborrheic Keratosis 11/05/2010 12/15/2012 Actinic Keratoses (Premalignant AK's) 11/05/2010 01/01/2014 Actinic Damage///Sun-damaged skin 11/05/2010 12/15/2012 Personal history of other ma lignant neoplasm of skin 11/05/2010 12/15/2012 Melanocytic nevus of trunk 11/05/2010 0 02/15/2016 Solar Lentigines 11/05/2010 12/15/2012 Seborrheic Keratoses 11/05/2010 013 Skin tag 11/05/2010 12/15/2012 Pollack angioma 11/05/2010 12/15/2012 Surgical Scars 11/05/2010 12/15/2012 Nonspecific abnormal results of liver function study 04/29/2008 12/13/2011 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/29/2007 02/15/2016 BPH without obstruction/lowe r urinary tract symptoms 12/29/2007 02/21/2018 Obesity, unspecified 12/29/2007 016 Dermatophytosis of nail 12/29/200706/29 documented as of this encounter (statuses as of 01/31/2024) [facility]-26-2018 History of Past illness Narrative* Problem Noted Date Diagnosed Date Resolved Date Obesity, Class II, BMI 35-39.9 08/22/2018 08/06/2019 Solar Lentigines 12/18/2013 02/15/2016 Other seborrheic keratosis 12/18/2013 0 01/21/2015 Pollack angioma 12/18/2013 02/15/2016 DVT of leg (deep venous thrombosis) 11/16/2013 07/23/2014 Post-operative state 11/16/2013 014 Postoperative anemia 10/25/2013 014 Overview: Transfused on 10/25 1 U PRBC. H&H 9.12/23.3. DC on diuretic taper for dilutional component and MVI with iron and repeat as outpt Elevated LFTs 10/23/2013 01/01/2014 Overview: ALT/AST trending down 124/214. TB rising 1.8. DC on no APAP and add Lipitor 80 for post NSTEMI when LFTs normalize DISPOSITION AND FOLLOW-UP 10/23/2013 Overview: 63 y/o M, lives in [place], [place]. No skilled needs. 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 Phi Heredia for new cards and Preventive cards and Preventive Nutrition. Primary Care: Sher Jules MD [address] [facility] [id number] Food Quality Technician: Phi Leo M.D. [place] [facility] Acute pain 10/22/2013 01/01/2014 Overview: DC on prn Percolone and wean Nodule of right lung 10/22/2013 014 Fluid overload 10/21/2013 10/23/2013 Overview: 10/22/2013 fluid overload from surgery - generalized edema and pulm congestion plan - continue gentle diuresis - closely monitor fluid and electrolytes Atelectasis/pleural effusion/volume overload 3 07/23/2014 Overview: O2 sat 98% on RA. C, DB, PEP and con't to increase activity. Repeat CXR at f/u appt Hypotension 10/20/2013 10/23/2013 Overview: Post op vasoplegia, requiring epi/vaso/levo. off vaso gtt. 10/22/2013 Pressors weaned off overnight. plan - will start low dose BB - continue gentle diuretic Mechanically assisted ventilation 10/20/2013 10/22/2013 Overview: WTE SUMMARY 10/17/2013 07/23/2014 Overview: Admission: NSTEMI Echo: 56%, Stage 1 DD, RV nl ECG: SB at 56 Cards: Brenna Cath: LM 80%, LAD 30% prox, RCA 75% distal, RI 50% prox, 40% mid PMH/PSH: CAD, HTN, DM-2 5-6 yrs, HPL, ETOH (6 drinks/day) PAD s/p L superficial femoral/popliteal/posterior tibial artery artherectomy and angioplasty 07/2010 and right femoral artery arterectomy and angioplasty, right popliteal angioplasty 08/2010 on ASA and Plavix (last dose 10/18). Smoker, quit 11/09. Obesity (BMI >34), ? ERASMO? Events: PRBC Surgery 10/20/13: CABG x 3: WRIGHT>LAD, SVG>PDA, SVG>OM1 Echo: 65%, Stage 1 DD, RV normal. Small pericardial effusion w/o signs of tamponade 10/26/13: -SR. Post NSTEMI, Peak TpnT 0.216 -O2 sat 98% on RA -Elevated LFT's trending down, DC on no APAP -Ambulating without difficulty -HTN: DC on BB, Lasix, HEENA-I -Dulcolax prior to DC for BM -HPL: DC on no statin in light of LFT elevation: recommend add when normalize -DC: , from [place], [place], no skilled needs. Request f/u Dr. 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 Hold statin d/t elevated LFT's, resume once normalize Irritated//Inflamed Seborrheic Keratosis 11/05/2010 12/15/2012 Actinic Keratoses (Premalignant AK's) 11/05/2010 01/01/2014 Actinic Damage///Sun-damaged skin 11/05/2010 12/15/2012 Personal history of other ma lignant neoplasm of skin 11/05/2010 12/15/2012 Melanocytic nevus of trunk 11/05/2010 0 02/15/2016 Solar Lentigines 11/05/2010 12/15/2012 Seborrheic Keratoses 11/05/2010 013 Skin tag 11/05/2010 12/15/2012 Pollack angioma 11/05/2010 12/15/2012 Surgical Scars 11/05/2010 12/15/2012 Nonspecific abnormal results of liver function study 04/29/2008 12/13/2011 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/29/2007 02/15/2016 BPH without obstruction/lowe r urinary tract symptoms 12/29/2007 02/21/2018 Obesity, unspecified 12/29/2007 016 Dermatophytosis of nail 12/29/200706/29 documented as of this encounter (statuses as of 02/06/2024) [facility] Rohan Wallace [facility] Note Date/Time April 30, 2025 12:39 am [facility] Medical Records Department [address] [place] [address] Emergency Department Summary 04/30/25 MR#: [id number] Acct: [id number] Name: MARIE HUTSON Rep #:[id number] : 1950 75 From: Rohan Wallace MD PCP: Dr. Sher Jules MD Status:R EG ER Location: ED HPI <Dr. Max Brooks MD - Last Filed: 04/30/25 00:23> History of Present Illness Chief Complaint: Head Injury <Dr. Rohan Wallace MD - Last Filed: 04/30/25 00:30> History of Present Illness Detail of Chief Complaint: Patient fell approximately 3 to 3-1/2 feet from stoolstriking his head Informant: patient and spouse/S.O. Onset/Context/Timing Onset: Today and Hours Mechanism/Context: Blunt Injury and Fall Quality of Pain: - (Left parietal area) Location: Left parietal Current Severity: Mild Maximum Severity: Moderate Worsened by: Palpation Relieved by: Nothing Associated Symptoms Associated Symptoms: Positive for Loss of consciousness and Amnesia; Negative for Parasthesias, Weakness, Loss of function or Inability to ambulate Length of loss of consciousness: Unknown he apparently was asleep on the stool when he fell Narrative Narrative: Patient is a 75-year-old male. He has history coronary disease with several stents. He is presently on Plavix. He also has history of bypass surgery x 3 vessels. He has history hypertension, hyperlipidemia, essential hypertension. He was sitting on stool proximately 3-3 and half feet from the ground. He fell asleep. He landed on his left side. He sustained a laceration to the left frontal parietal area. The laceration is 8.7 cm. He does complain of slight headache. Eyes double vision blurred vision or photophobia. Denies decreased hearing olivera ears. Denies neck pain. Denies paresthesia, anesthesia or motorweakness upper or lower extremity. He denies chest pain or shortness of breath. He denies nausea or vomiting. Tetanus Immunization: Unknown Prior similar symptoms: No Recent Illness/Hospitalization: No [facility] <Dr. Max Brooks MD - Last Filed: 04/30/25 00:23> [facility] Medical History Atherosclerotic heart disease of hoh coronary artery without angina pectoris Branch retinal artery occlusion CAD (coronary artery disease) Chest pain Diabetes Diabetes mellitus, type 2 Dyslipidemia Essential (primary) hypertension Former tobacco use Hyperlipemia Hypertension NSTEMI (non-ST elevated myocardial infarction) Obesity Peripheral vascular disease, unspecified Type 2 diabetes mellitus without complications Home Medications ?Medication ?Instructions ?Recorded ?Last Taken ?Type multivitamin with folic acid 400 1 tab PO DAILY vitami n 04/18/16 04/19/16 History mcg tablet (Thera) amlodipine 10 mg tablet 10 mg PO DAILY 01/28/24 Unkn own History clonidine HCl 0.2 mg tablet 0.2 mg PO BID 01/28/24 Unk nown History gabapentin 300 mg capsule 300 mg PO DAILY 01/28/24 Unk nown History lisinopril 40 mg tablet 40 mg PO BID 01/28/24 Unknow n History aspirin 81 mg tablet,delayed 81 mg PO BREAKFAST #30 ta bs 01/30/24 Unknown Rx release clopidogrel 75 mg tablet 75 mg PO QDAY 05/28/24 Unkno wn History metformin 500 mg tablet 1,000 mg PO BID diabetes 11/20 Unknown History nitroglycerin 0.3 mg sublingual 0.3 mg sublingual Q5M PRN angina 05/28/24 Unknown History tablet atorvastatin 40 mg tablet 40 mg PO QPM #90 tabs Unknown Rx metoprolol tartrate 25 mg tablet 12.5 mg PO BID Unknown History hydralazine 50 mg tablet 50 mg PO TID #270 tabs 12/04 Unknown Rx omeprazole 40 mg capsule,delayed 40 mg PO DAILY Unknown History release Allergy/AdvReac Type Severity Reaction Status Date / Time No Known Allergies Allergy Verified 04/29/25 22:27 Family History Mother Cancer Father CVA (cerebral vascular accident) Surgical History H/O coronary angioplasty Stented coronary artery (01/29/24) History of coronary artery bypass graft x 3 H/O angioplasty Failed CABG (coronary artery bypass graft) Social History household members: spouse Smoking Status: Former smoker alcohol intake: current alcohol intake frequency: a few times a month substance use type: does not use ROS <Dr. Rohan Wallace MD - Last Filed: 04/30/25 00:30> ROS ED Constitutional Constitutional ED: Denies chills or fever(s) Eyes Eyes: Denies blurry vision or change in vision ENT ENT ED: Denies ear pain, rhinorrhea or sore throat Cardiovascular Cardiovascular: Denies chest pain, palpitations, paroxysmal nocturnal dyspnea orracing heartbeat Respiratory/Chest Respiratory/Chest: Denies cough, dyspnea, dyspnea on exertion or paroxysmal nocturnal dyspnea Gastrointestinal Gastrointestinal: Denies abdominal pain, nausea or vomiting Genitourinary Genitourinary ED: Denies dysuria, hematuria or urinary frequency Musculoskeletal Musculoskeletal: Denies back pain or neck pain Integumentary Reports other Details: Laceration. ; Denies abscess, Abrasions or rash Neurologic Neurologic: Reports headache(s); Denies paresthesias or weakness Hematologic/Lymphatic Hematologic/Lymphatic: Reports easy bleeding and easy bruising EXAM <Dr. Max Brooks MD - Last Filed: 04/30/25 00:23> Physical Exam Const Vital Signs: 04/29/25 22:27 04/29/25 22:44 04/29/25 23:34 Temperature 96.8 F L Temperature Source Temporal Pulse Rate 100 70 Respiratory Rate 20 H 18 Respiratory Effort Normal Respiratory Depth Normal Respiratory Pattern Normal Blood Pressure 161/75 H 146/51 H Blood Pressure Mean 103 82 Pulse Ox 99 95 Oxygen Delivery Method Room Air Room Air Room Air 04/30/25 00:00 Temperature Temperature Source Pulse Rate 72 Respiratory Rate 18 Respiratory Effort Respiratory Depth Respiratory Pattern Blood Pressure Blood Pressure Mean Pulse Ox 96 Oxygen Delivery Method Room Air <Dr. Rohan Wallace MD - Last Filed: 04/30/25 00:30> Physical Exam Const Vital Signs: 04/29/25 22:27 04/29/25 22:44 04/29/25 23:34 Temperature 96.8 F L Temperature Source Temporal Pulse Rate 100 70 Respiratory Rate 20 H 18 Respiratory Effort Normal Respiratory Depth Normal Respiratory Pattern Normal Blood Pressure 161/75 H 146/51 H Blood Pressure Mean 103 82 Pulse Ox 99 95 Oxygen Delivery Method Room Air Room Air Room Air 04/30/25 00:00 Temperature Temperature Source Pulse Rate 72 Respiratory Rate 18 Respiratory Effort Respiratory Depth Respiratory Pattern Blood Pressure Blood Pressure Mean Pulse Ox 96 Oxygen Delivery Method Room Air Positive well nourished and well developed General Appearance ED: well developed and NAD HEENT Reports TM's clear trauma and tenderness Nose: Negative for septum abnormal Tympanic Membrane ED: Yes TM's clear Eyes PERRL and EOMs intact bilaterally Neck full ROM General: Negative for tenderness Chest Wall inspection of chest normal and palpation of chest normal Resp normal respiratory effort Cardio regular rhythm Rate: regular rate Back/Spine normal to inspection and no thoracic nor lumbar tenderness Extremity normal to inspection and full ROM General Extremety ED: Negative for deformity General Extremity: Negative for deformity Neuro oriented x3, CN's II-XII intact bilaterally, moves all extremities, no focal motor deficits and no sensory deficits noted Kathi Coma Scale: document GCS findings Spontaneous Obeys Commands Oriented 15 Sensorium / Orientation: alert Deep Tendon Reflexes: Rt Biceps (C5, C6): 1+, Lt Biceps (C5, C6): 1+, Rt Brachioradialis (C6): 1+, Lt Brachioradialis (C6): 1+, Rt Patellar (L4): 1+, Lt Patellar (L4): 1+, Rt Ankle (S1): 1+ and Lt Ankle (S1): 1+ Deep Tendon Reflexes Back: Rt Patellar (L4): 1+, Lt Patellar (L4): 1+, Rt Ankle (S1): 1+ and Lt Ankle (S1): 1+ Plantar Reflex: Downgoing: bilateral (There is no clonus right or left.) Psych mental status grossly normal and thought process normal Skin no rashes or lesions noted, skin turgor normal and no jaundice Skin Narrative: Laceration previously described PROC <Dr. Max Brooks MD - Last Filed: 04/30/25 00:23> Procedures Lacerations Left lateral scalp laceration 3.5 inches repair:: Length: 3.5 in Depth: Sub Q Shape: Linear Prep: Shure-Clens Laceration repair: Irrigated, Lidocaine, Local, Skin sutures and Wound explored Number of Sutures/Homestead: 9 Suture Information: Ethilon, Simple and 4-0 Comment: Left lateral scalp laceration about 3 efficacies in length. Involves skin and subcu tissue. Locally anesthetized with lidocaine. Cleaned with Shur-Clens. Washed and irrigated with saline. Explored. Closed using 9 simple erupted 4-0 Ethilon sutures. Proper hemostasis wound closure obtained. They were given head injury instructions. We discussed the CAT scan results andthe possibility of a delayed bleed. [facility] <Dr. Max Brooks MD - Last Filed: 04/30/25 00:23> [facility] Radiography Diagnostic Testing: Clinical Impression(s) from Imaging Studies Brain CT 04/29/25 23:08 IMPRESSION: No acute intracranial finding Reading Location: [facility] <Dr. Rohan Wallace MD - Last Filed: 04/30/25 00:30> [facility] Narrative Medical decision making narrative: Since patient is on antithrombotic is amnestic and over the age of 75 per the [place] CT head rule and [place] rule he will require imaging of his head to rule out intracranial bleed i.e. subdural hematoma, epidural hematoma, parenchymal contusion or subarachnoid hemorrhage. Patient's laceration will require repair. The repair was performed by Dr. Brooks. Radiography Diagnostic Testing: Clinical Impression(s) from Imaging Studies Brain CT 04/29/25 23:08 IMPRESSION: No acute intracranial finding Reading Location: [place] [id number] CT of the head was reviewed by me. There is no evidence of fracture. There is no fluid in the frontal, maxillary or sphenoid sinus. There is no evidence of subdural hematoma, epidural hematoma, subarachnoid hemorrhage or intraparenchymal contusion. Discharge Plan Triage Chief Complaint: Head Injury ED Provider: Rohan Wallace Dx/Rx/DC Orders Clinical Impression: Closed head injury with brief loss of consciousness, Hypertension, Dyslipidemia, Diabetes, CAD (coronary artery disease), Antiplatelet or antithrombotic long- term use, Laceration of scalp, Injury due to fall Instructions: ED Head Injury (Adult), ED Laceration Scalp Stitches or Homestead Prescriptions: No Action clopidogrel 75 mg tablet 75 mg PO QDAY nitroglycerin 0.3 mg tablet, sublingual 0.3 mg sublingual Q5M PRN (Reason: angina) metoprolol tartrate 25 mg tablet 12.5 mg PO BID atorvastatin 40 mg tablet 40 mg PO QPM Qty: 90 3RF multivitamin with folic acid [Thera] 1 TABLET tablet 1 tab PO DAILY metformin 500 mg tablet 1,000 mg PO BID clonidine HCl 0.2 mg tablet 0.2 mg PO BID amlodipine 10 mg tablet 10 mg PO DAILY gabapentin 300 mg capsule 300 mg PO DAILY lisinopril 40 mg tablet 40 mg PO BID aspirin 81 mg Tablet,Delayed Release (Dr/Ec) 81 mg PO BREAKFAST Qty: 30 2RF omeprazole 40 mg capsule,delayed release(DR/EC) 40 mg PO DAILY hydralazine 50 mg tablet 50 mg PO TID Qty: 270 3RF Primary Care Provider: Sher Jules Referrals: Sher Jules MD [Primary Care Provider] - 10 Day for suture removal Activity Restrictions/Additional Instructions: 1. Keep wound clean and dry as much as possible for the next 2 to 3 days 2. Apply bacitracin ointment 2-3 times a day 3. If there is any concern for infection either see your doctor or return to the emergency room for reevaluation Print Language: Gabonese Disposition Disposition: Home, Self Care What to do if you have Problems For any increased pain, shortness of breath, bleeding, nausea or vomiting, chestpain, or any unexpected problems, contact your Primary Care Provider. Call [facility] ([phone]) or report to the closest Emergency Room. Call 911 if necessary. 04/30/2529 <Electronically signed by Rohan Wallace MD> Cosigner Signature (if applicable): 04/30/2538 <Electronically signed by Max Brooks MD> CC: Dr. Sher Jules MD ~ Signed [facility] Work Phone: Evaluation note* Diagnosis Peripheral arterial disease (HCC)- Primary Peripheral vascular disease, unspecified [facility] Diagnosis Onychomycosis- Primary Dermatophytosis of nail Pain in toe of left foot Pain in limb Pain in toe of right foot Pain in limb Well controlled type 2 diabetes mellitus with neurological manifestations (HCC) Type II or unspecified type diabetes mellitus with neurological manifestations, not stated as uncontrolled PAD (peripheral artery disease) (HCC) Peripheral vascular disease, unspecified Hyperkeratosis Acquired keratoderma [facility]* Diagnosis Onset Date Resolution Status Branch retinal artery occlusion acute History of atherosclerotic heart disease acute History of diabetes mellitus acute History of essential hypertension [facility] Work Phone: Evaluation note* Diagnosis Onset Date Resolution Status Branch retinal artery occlusion acute CVA (cerebral vascular accident) acute History of atherosclerotic heart disease acute History of diabetes mellitus acute History of essential hypertension [facility] Work Phone: Evaluation note* Diagnosis Hyperlipidemia with target LDL less than 70- Primary Other and unspecified hyperlipidemia Essential hypertension Unspecified essential hypertension Well controlled type 2 diabetes mellitus with neurological manifestations (HCC) Type II or unspecified type diabetes mellitus with neurological manifestations, not stated as uncontrolled Branch retinal artery occlusion, 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 [facility] Essential hypertension- Primary Unspecified essential hypertension [facility] Diagnosis Essential hypertension Unspecified essential hypertension [facility] Diagnosis Essential hypertension- Primary Unspecified essential hypertension Need for influenza vaccination Need for prophylactic vaccination and inoculation against influenza Well controlled type 2 diabetes mellitus with neurological manifestations (HCC) Type II or unspecified type diabetes mellitus with neurological manifestations, not stated as uncontrolled [facility] Diagnosis Coronary artery disease involving hoh coronary artery of hoh heart without angina pectoris- Primary Essential hypertension Unspecified essential hypertension 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 Central artery occlusion of retina [facility]* Diagnosis Onychomycosis- Primary Dermatophytosis of nail Hyperkeratosis Acquired keratoderma Pain in toe of left foot Pain in limb Pain in toe of right foot Pain in limb Well controlled type 2 diabetes mellitus with neurological manifestations (HCC) Type II or unspecified type diabetes mellitus with neurological manifestations, not stated as uncontrolled PAD (peripheral artery disease) (HCC) Peripheral vascular disease, unspecified [facility] Diagnosis COVID-19 virus infection- Primary [facility] Diagnosis Central retinal artery occlusion of left eye- Primary Central artery occlusion of retina [facility]* Diagnosis Primary hypertension- Primary Unspecified essential hypertension Coronary artery disease involving hoh coronary artery of hoh heart without angina pectoris Hx of CABG Postsurgical aortocoronary bypass status PAD (peripheral artery disease) (HCC) Peripheral vascular disease, unspecified [facility] Diagnosis Essential hypertension Unspecified essential hypertension [facility] Diagnosis Hyperlipidemia with target LDL less than 70 Other and unspecified hyperlipidemia Essential hypertension Unspecified essential hypertension [facility] Diagnosis Essential hypertension- Primary Unspecified essential hypertension [facility] Diagnosis Well controlled type 2 diabetes mellitus with neurological manifestations (HCC)- Primary Type II or unspecified type diabetes mellitus with neurological manifestations, not stated as uncontrolled [facility] Diagnosis Essential hypertension Unspecified essential hypertension [facility] Diagnosis Peripheral vascular disease (HCC)- Primary Peripheral vascular disease, unspecified Screening for nephropathy [facility] Diagnosis Essential hypertension Unspecified essential hypertension [facility] Diagnosis Essential hypertension Unspecified essential hypertension [facility] Diagnosis Well controlled type 2 diabetes mellitus with neurological manifestations (HCC)- Primary Type II or unspecified type diabetes mellitus with neurological manifestations, not stated as uncontrolled Essential hypertension Unspecified essential hypertension Hyperlipidemia with target LDL less than 70 Other and unspecified hyperlipidemia PAD (peripheral artery disease) (HCC) Peripheral vascular disease, unspecified [facility] Diagnosis Peripheral vascular disease (HCC) Peripheral vascular disease, unspecified [facility] Diagnosis 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- Primary Arterial branch occlusion of retina Diabetic peripheral neuropathy (HCC) Type II or unspecified type diabetes mellitus with neurological manifestations, not stated as uncontrolled [facility]* Diagnosis Atherosclerotic peripheral vascular disease with intermittent claudication (HCC)- Primary Atherosclerosis of hoh arteries of the extremities with intermittent claudication Peripheral arterial disease (HCC) Peripheral vascular disease, unspecified [facility]* Diagnosis Onychomycosis- Primary Dermatophytosis of nail Pain in toe of left foot Pain in limb Pain in toe of right foot Pain in limb Well controlled type 2 diabetes mellitus with neurological manifestations (HCC) Type II or unspecified type diabetes mellitus with neurological manifestations, not stated as uncontrolled PAD (peripheral artery disease) (HCC) Peripheral vascular disease, unspecified Hyperkeratosis Acquired keratoderma [facility]* Diagnosis Screening for ischemic heart disease- Primary Coronary artery disease involving hoh coronary artery of hoh heart without angina pectoris Hx of CABG Postsurgical aortocoronary bypass status PVD (peripheral vascular disease) ([facility]) Peripheral vascular disease, unspecified [facility]* Diagnosis Onychomycosis- Primary Dermatophytosis of nail Pain in toe of left foot Pain in limb Pain in toe of right foot Pain in limb Well controlled type 2 diabetes mellitus with neurological manifestations (HCC) Type II or unspecified type diabetes mellitus with neurological manifestations, not stated as uncontrolled PAD (peripheral artery disease) (HCC) Peripheral vascular disease, unspecified Hyperkeratosis Acquired keratoderma [facility] Diagnosis Obesity, Class II, BMI 35-39.9- Primary Obesity, unspecified Coronary artery disease involving hoh coronary artery of hoh heart without angina pectoris PAD (peripheral artery disease) (HCC) Peripheral vascular disease, unspecified Essential hypertension Unspecified essential hypertension Hyperlipidemia with target LDL less than 70 Other and unspecified hyperlipidemia Well controlled type 2 diabetes mellitus with neurological manifestations (HCC) Type II or unspecified type diabetes mellitus with neurological manifestations, not stated as uncontrolled [facility]* Diagnosis Onychomycosis- Primary Dermatophytosis of nail Pain in toe of left foot Pain in limb Pain in toe of right foot Pain in limb Well controlled type 2 diabetes mellitus with neurological manifestations (HCC) Type II or unspecified type diabetes mellitus with neurological manifestations, not stated as uncontrolled PAD (peripheral artery disease) (HCC) Peripheral vascular disease, unspecified Hyperkeratosis Acquired keratoderma Ingrowing toenail with infection Ingrowing nail [facility] Diagnosis Essential hypertension Unspecified essential hypertension [facility] Diagnosis Essential hypertension Unspecified essential hypertension Well controlled type 2 diabetes mellitus with neurological manifestations (HCC) Type II or unspecified type diabetes mellitus with neurological manifestations, not stated as uncontrolled [facility] Diagnosis Essential hypertension Unspecified essential hypertension [facility]* Diagnosis Pain in both wrists- Primary Pain in joint, forearm [facility]* Diagnosis Onset Date Resolution Status CAD (coronary artery disease) acute Chest pain acute Dyslipidemia acute History of coronary artery bypass graft x 3 acute NSTEMI (non-ST elevated myocardial infarction) acute Hypertension [facility] Work Phone: Evaluation note* Diagnosis Onset Date Resolution Status CAD (coronary artery disease) acute Chest pain acute Diabetes acute Dyslipidemia acute History of coronary artery bypass graft x 3 acute NSTEMI (non-ST elevated myocardial infarction) acute Hypertension [facility] Work Phone: Evaluation note* Diagnosis Non-STEMI (non-ST elevated myocardial infarction) ([facility])- Primary Acute myocardial infarction, subendocardial infarction, episode of care unspecified S/P CABG x 3 Postsurgical aortocoronary bypass status Essential hypertension Unspecified essential hypertension Hyperlipidemia with target LDL less than 70 Other and unspecified hyperlipidemia Well controlled type 2 diabetes mellitus with neurological manifestations (HCC) Type II or unspecified type diabetes mellitus with neurological manifestations, not stated as uncontrolled PAD (peripheral artery disease) (HCC) Peripheral vascular disease, unspecified Abnormality of lung on CXR Obesity, Class I, BMI 30-34.9 Obesity, unspecified [facility] Diagnosis 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)- Primary Essential hypertension Unspecified essential hypertension PAD (peripheral artery disease) (HCC) Peripheral vascular disease, unspecified [facility] noteNo assessment information availableWMercy [facility] Work Phone: [facility]* Diagnosis Well controlled type 2 diabetes mellitus with neurological manifestations (HCC) Type II or unspecified type diabetes mellitus with neurological manifestations, not stated as uncontrolled [facility] Screening for colon cancer- Primary Special screening for malignant neoplasms, colon [facility] Diagnosis Medicare annual wellness visit, subsequent- Primary Routine general medical examination at a health care facility Special screening for malignant neoplasms, colon Well controlled type 2 diabetes mellitus with neurological manifestations (HCC) Type II or unspecified type diabetes mellitus with neurological manifestations, not stated as uncontrolled PAD (peripheral artery disease) (HCC) Peripheral vascular disease, unspecified Coronary artery disease involving hoh coronary artery of hoh heart without angina pectoris Hyperlipidemia with target LDL less than 70 Other and unspecified hyperlipidemia Benign neoplasm of colon, unspecified part of colon [facility] Diagnosis 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) [facility] Diagnosis Onychomycosis- Primary Dermatophytosis of nail Pain in toe of left foot Pain in limb Pain in toe of right foot Pain in limb PAD (peripheral artery disease) (HCC) Peripheral vascular disease, unspecified Diabetic polyneuropathy associated with type 2 diabetes mellitus (HCC) [facility] Diagnosis Essential hypertension- Primary Unspecified essential hypertension Hyperlipidemia with target LDL less than 70 Other and unspecified hyperlipidemia Hx of CABG Postsurgical aortocoronary bypass status Coronary artery disease involving hoh coronary artery of hoh heart without angina pectoris [facility] Diagnosis Special screening for malignant neoplasms, colon History of colonic polyps Personal history of colonic polyps Coronary artery disease involving hoh coronary artery of hoh heart, unspecified whether angina present [facility] Diagnosis Peripheral arterial disease (HCC)- Primary Peripheral vascular disease, unspecified [facility] Diagnosis Well controlled type 2 diabetes mellitus with neurological manifestations (HCC) Type II or unspecified type diabetes mellitus with neurological manifestations, not stated as uncontrolled [facility]* Diagnosis Hyperlipidemia with target LDL less than 70 Other and unspecified hyperlipidemia [facility]* Diagnosis Pain in both wrists Pain in joint, forearm [facility]* Diagnosis Coronary artery disease involving hoh coronary artery of hoh heart without angina pectoris- Primary Stented coronary artery Postsurgical percutaneous transluminal coronary angioplasty status Essential hypertension Unspecified essential hypertension Hyperlipidemia with target LDL less than 70 Other and unspecified hyperlipidemia Well controlled type 2 diabetes mellitus with neurological manifestations (HCC) Type II or unspecified type diabetes mellitus with neurological manifestations, not stated as uncontrolled documented in this encounter [facility] note* Diagnosis Hyponatremia- Primary Hyposmolality and/or hyponatremia Hyperkalemia Hyperpotassemia Anemia, unspecified type documented in this encounter [facility] note* Diagnosis Shortness of breath- Primary Coronary artery disease involving hoh coronary artery of hoh heart without angina pectoris Stented coronary artery Postsurgical percutaneous transluminal coronary angioplasty status S/P CABG x 3 Postsurgical aortocoronary bypass status Family history of chronic ischemic heart disease Diabetes mellitus type 2 in nonobese (CMS/HCC) (HCC) Type II or unspecified type diabetes mellitus without mention of complication, not stated as uncontrolled Primary hypertension Unspecified essential hypertension Mixed hyperlipidemia Coronary artery disease involving hoh coronary artery of hoh heart without angina pectoris- Primary documented in this encounter [facility] note* Diagnosis Coronary artery disease involving hoh coronary artery of hoh heart without angina pectoris- Primary Primary hypertension Unspecified essential hypertension documented in this encounter [facility] note* Diagnosis Coronary artery disease involving hoh coronary artery of hoh heart without angina pectoris- Primary Coronary artery disease involving hoh coronary artery of hoh heart without angina pectoris Stented coronary artery Postsurgical percutaneous transluminal coronary angioplasty status Angina pectoris, unstable (CMS/HCC) (HCC) Intermediate coronary syndrome Angina pectoris, unstable (CMS/HCC) (HCC) Intermediate coronary syndrome Coronary artery disease involving hoh coronary artery of hoh heart without angina pectoris documented in this encounter [facility] note* Diagnosis Hyponatremia- Primary Hyposmolality and/or hyponatremia Anemia, unspecified type documented in this encounter [facility] note* Diagnosis Diabetic peripheral neuropathy (HCC)- Primary Type II or unspecified type diabetes mellitus with neurological manifestations, not stated as uncontrolled Essential hypertension Unspecified essential hypertension Anemia, unspecified type Well controlled type 2 diabetes mellitus with neurological manifestations (HCC) Type II or unspecified type diabetes mellitus with neurological manifestations, not stated as uncontrolled S/P drug eluting coronary stent placement Postsurgical percutaneous transluminal coronary angioplasty status [facility] Diagnosis Onychomycosis- Primary Dermatophytosis of nail Pain in toe of left foot Pain in limb Pain in toe of right foot Pain in limb Diabetic polyneuropathy associated with type 2 diabetes mellitus (HCC) PAD (peripheral artery disease) (HCC) Peripheral vascular disease, unspecified [facility]* Diagnosis Well controlled type 2 diabetes mellitus with neurological manifestations (HCC) Type II or unspecified type diabetes mellitus with neurological manifestations, not stated as uncontrolled documented in this encounter [facility] note* Diagnosis Onychomycosis- Primary Dermatophytosis of nail Pain in toe of left foot Pain in limb Pain in toe of right foot Pain in limb Diabetic polyneuropathy associated with type 2 diabetes mellitus (HCC) PAD (peripheral artery disease) Peripheral vascular disease, unspecified [facility]* Diagnosis Peripheral arterial disease- Primary Peripheral vascular disease, unspecified documented in this encounter [facility] note* Diagnosis Anemia, unspecified type- Primary History of colonic polyps Personal history of colonic polyps Colon cancer screening Special screening for malignant neoplasms, colon [facility]* Diagnosis Gastritis and duodenitis- Primary Unspecified gastritis and gastroduodenitis without mention of hemorrhage Gastroesophageal reflux disease with esophagitis without hemorrhage Adenomatous polyp of colon, unspecified part of colon documented in this encounter [facility] Work Phone: Reason for referral (narrative)* Outpatient Procedure (Routine) - Pending Review Specialty Diagnoses / Procedures Referred By Contlarry t Referred To Contact [facility] Diagnoses Peripheral arterial disease (HCC) Procedures PVR LEG NOHEMY VAS LAB NON-INVASIVE PHYSIOLOGIC STUDY EXTREMITY 3 Nargis Wiggins DO [address] [place] [address] [facility] [place] [address] [place] [address] Referral ID Status Reason Start Date Expiration Date Visits Requested Visits Authorized [id number] Pending Review Auto-Generat ed Referral 03/27/2022 03/27/2023 1 1 [facility] for referral (narrative)* Outpatient Procedure (Routine) - Closed Specialty Diagnoses / Procedures Referred By Contac t Referred To Contact [facility] [place] Diagnoses Coronary artery disease involving hoh coronary artery of hoh heart without angina pectoris Procedures ECG COMPLETE ECG ROUTINE ECG W/LEAST 12 LDS W/I&R Jules Dukes MD [address] [place] [address] [facility] [place] [address] [place] [address] Referral ID Status Reason Start Date Expiration Date V isits Requested Visits Authorized [id number] Closed Auto-Generate d Referral 09/05/2022 09/05/2023 1 1 * Consult, Test, Treat (Routine) - Authorized Specialty Diagnoses / Procedures Referred By Contac t Referred To Contact Neurology Diagnoses Central retinal artery occlusion of left eye Procedures CONSULT TO NEUROLOGY OFFICE/OUTPATIENT [facility] MDM 60-74 MINUTES Jules Dukes MD [address] [place] [id number] Referral ID Status Reason Start Date Expiration Date Visits Requested Visits Authorized [id number] Authorized PCP Requested Referral 09/05/2022 09/05/2023 1 1 [facility] for referral (narrative)* Outpatient Procedure (Routine) - Closed Specialty Diagnoses / Procedures Referred By Contac t Referred To Contact [facility] Diagnoses Screening for ischemic heart disease Procedures ECG COMPLETE ECG ROUTINE ECG W/LEAST 12 LDS W/I&R Bib Patterson MD [address] [place] [address] [facility] [place] [address] [place] [address] Referral ID Status Reason Start Date Expiration Date V isits Requested Visits Authorized [id number] Closed Auto-Generate d Referral 04/29/2023 04/28/2024 1 1 [facility] for referral (narrative)* Outpatient Procedure (Routine) - Authorized Specialty Diagnoses / Procedures Referred By Contac t Referred To [facility] Diagnoses Coronary artery disease involving hoh coronary artery of hoh heart without angina pectoris Procedures ECG COMPLETE ECG ROUTINE ECG W/LEAST 12 LDS W/I&R Sher Jules MD [address] [place] [address] [facility] [place] [address] [place] [address] Referral ID Status Reason Start Date Expiration Date Visits Requested Visits Authorized [id number] Authorized Auto-Generat ed Referral 08/08/2024 1 1 [facility] for referral (narrative)* Diagnostic Procedure Only (Routine) - Closed Specialty Diagnoses / Procedures Referred By Contac t Referred To Contact XR IMAGING Diagnoses Pain in both wrists Procedures XR WRIST GENERAL 3V PA/LAT/OBL BILATERAL RADEX WRIST COMPLETE MINIMUM 3 VIEWS Barb Suggs, MUSEUM CURATOR.SLOT SUPERVISOR [address] [place] [address] [place] [id number] Referral ID Status Reason Start Date Expiration Date V isits Requested Visits Authorized [id number] Closed Auto-Generate d Referral 2024 02/25/2025 1 1 [facility] for referral (narrative)* Diagnostic Procedure Only (Routine) - Authorized Specialty Diagnoses / Procedures Referred By Contact Referred To Contact [facility] Diagnoses 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) Shortness of breath Procedures NM CARDIAC PERF STRESS/PHARM MYOCARDIAL SPECT MULTIPLE STUDIES Bib Patterson MD [address] [facility], [address] [place] [address] [facility] [address] [place] [address] Referral ID Status Reason Start Date Expiration Date Visits Requested Visits Authorized [id number] Authorized Auto-Generat ed Referral 03/11/2024 03/11/2025 1 1 [facility] for referral (narrative)* Diagnostic Procedure Only (Routine) - Closed Specialty Diagnoses / Procedures Referred By Contact Referred To Contact [facility] Diagnoses 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) Shortness of breath Procedures NM CARDIAC PERF STRESS/PHARM MYOCARDIAL SPECT MULTIPLE STUDIES Bib Patterson MD [address] [facility], [address] [place] [address] [facility] [address] [place], [place] [id number] Referral ID Status Reason Start Date Expiration Date V isits Requested Visits Authorized [id number] Closed Auto-Generate d Referral 03/11/2024 03/11/2025 1 1 [facility] for referral (narrative)* Outpatient Procedure (Routine) - Authorized Specialty Diagnoses / Procedures Referred By Contac t Referred To Contact [facility] Diagnoses Peripheral arterial disease (HCC) Procedures PVR LEG NOHEMY VAS LAB NON-INVASIVE PHYSIOLOGIC STUDY EXTREMITY 3 Nargis Wiggins DO [address] [place] [id number] [facility] [place] [id number] [place] [address] Referral ID Status Reason Start Date Expiration Date Visits Requested Visits Authorized [id number] Authorized Auto-Generat ed Referral 04/07/2024 04/07/2025 1 1 [facility] for referral (narrative)* Diagnostic Procedure Only (Routine) - Closed Specialty Diagnoses / Procedures Referred By Contac t Referred To Contact XR IMAGING Diagnoses Pain in both wrists Procedures XR WRIST GENERAL 3V PA/LAT/OBL BILATERAL RADEX WRIST COMPLETE MINIMUM 3 VIEWS Barb Suggs, MUSEUM CURATOR.SLOT SUPERVISOR [address] [place] [address] [id number] Referral ID Status Reason Start Date Expiration Date V isits Requested Visits Authorized [id number] Closed Auto-Generate d Referral 2024 02/25/2025 1 1 [facility] for referral (narrative)No reason for referral information availableWMercy Health St[facility] Work Phone: Reason for visit Narrative* Diagnostic Procedure Only (Routine) - Closed Specialty Diagnoses / Procedures Referred By Contact Referred To Contact [facility] Diagnoses 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) Shortness of breath Procedures NM CARDIAC PERF STRESS/PHARM MYOCARDIAL SPECT MULTIPLE STUDIES Bib Patterson MD [address] [facility], [address] [place] [address] [facility] [address] [place] [address] Referral ID Status Reason Start Date Expiration Date V isits Requested Visits Authorized [id number] Closed Auto-Generate d Referral 03/11/2024 03/11/2025 1 1 [facility] for visit Narrative* Diagnostic Procedure Only (Routine) - Closed Specialty Diagnoses / Procedures Referred By Contac t Referred To Contact XR IMAGING Diagnoses Pain in both wrists Procedures XR WRIST GENERAL 3V PA/LAT/OBL BILATERAL RADEX WRIST COMPLETE MINIMUM 3 VIEWS Barb Suggs, MUSEUM CURATOR.SLOT SUPERVISOR [address] [place] [address] [facility] [place] [address] Referral ID Status Reason Start Date Expiration Date V isits Requested Visits Authorized [id number] Closed Auto-Generate d Referral 2024 02/25/2025 1 1 [facility] for visit Narrative* Auth/Cert (Routine) Specialty Diagnoses / Procedures Referred By Contac t Referred To Contact Diagnoses Coronary artery disease involving hoh coronary artery of hoh heart without angina pectoris Coronary artery disease involving hoh coronary artery of hoh heart without angina pectoris [I25.10] Procedures Left heart cath / coronary angiography w grafts Sergei Collins MD [address] [place] [address] Phone: tel: fax: [facility] [address] [place] [address] Phone: tel: Referral ID Status Reason Start Date Expiration Date Visits Re quested Visits Authorized [id number] 1 1 [facility] N[facility]* Outpatient Procedure (Routine) - Closed Specialty Diagnoses / Procedures Referred By Contac t Referred To Contact [facility] Diagnoses History of colonic polyps Anemia, unspecified type Colon cancer screening Procedures COLONOSCOPY SCREENING COLONOSCOPY FLX DX W/COLLJ SPEC WHEN PFRMD Elvie Monterroso, MUSEUM CURATOR.SLOT SUPERVISOR [address] [place] [address] Phone: tel: fax: [facility] [address] [place] [address] Referral ID Status Reason Start Date Expiration Date V isits Requested Visits Authorized [id number] Closed Auto-Generate d Referral 03/18/2025 03/18/2026 1 1 [facility] Advance Directives No Advanced Directives Records FoundDocuments on File Type Date Recorded Patient Network Security Architect Expl anation Advance Directive(s) 12/02/2018 8:26 AM Advance Directive(s) 05/23/2016 11:47 AM Advance Directive(s) 01/19/2014 4:36 PM Documents on File Type Date Recorded Patient Network Security Architect Expl anation Advance Directive(s) 12/02/2018 8:26 AM Advance Directive(s) 05/23/2016 11:47 AM Advance Directive(s) 01/19/2014 4:36 PM Advance Directive Response Recorded Date/ Time Living Will No May 29, 2022 12:30pm Power of Auto Body Repair Estimator No May 29 12:30pm Advance Directive Response Recorded Date/ Time Name of Medical Power of Auto Body Repair Estimator Thi Hutson May 30, 2022 1:33am Living Will Yes May 30, 2022 1:33am Power of Auto Body Repair Estimator Yes May 30 1:33am Documents on File Type Date Recorded Patient 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 Security Architect Expl anation Advance Directive(s) 01/19/2014 4:36 PM Documents on File Type Date Recorded Patient Network Security Architect Expl anation Advance Directive(s) 01/19/2014 4:36 PM Advance Directive Response Recorded Date/ Time Name of Medical Power of Auto Body Repair Estimator Thi Hutson- January 28, 2024 5:55pm Living Will Yes January 28, 2024 5:55pm Power of Auto Body Repair Estimator Yes January 27 5:55pm Advance Directive Response Recorded Date/ Time Name of Medical Power of Auto Body Repair Estimator Thi Htuson January 28, 2024 10:21pm Living Will Yes January 28, 2024 10:21pm Power of Auto Body Repair Estimator Yes January 27 10:21pm Advance Directive Response Recorded Date/ Time Name of Medical Power of Auto Body Repair Estimator Thi Hutson January 28, 2024 10:21pm Advance Directives on File Yes February 19, 2024 3:07pm Living Will Yes February 19, 2024 3:07pm Power of Auto Body Repair Estimator Yes February 18 3:07pm Date Activated Date Inactivated Comments 09/30/2024 9:56 AM 09/30/2024 6:14 PM Date Activated Date Inactivated Comments 09/30/2024 9:56 AM 09/30/2024 6:14 PM Advance Directive Response Recorded Date/ Time Do you have a Healthcare Power of Auto Body Repair Estimator? Yes April 29, 2025 10:35pm Chief Complaint and Reason for Visit Chief Complaint CAD Reason for Visit Branch retinal arter y occlusion History of atherosclerotic heart disease History of diabetes mellitus History of essential hypertension Chief Complaint TIA/CVA TIA/CVA Reason for Visit Branch retinal arter y occlusion CVA (cerebral vascular accident) History of atherosclerotic heart disease History of diabetes mellitus History of essential hypertension Chief Complaint CP CP CHEST PAIN, ELEVATED TROP (?NSTEMI) Reason for Visit CAD (coronary artery disease) Chest pain Dyslipidemia History of coronary artery bypass graft x 3 NSTEMI (non-ST elevated myocardial infarction) Hypertension Chief Complaint CP CP CHEST PAIN, ELEVATED TROP (?NSTEMI) CHEST PAIN, ELEVATED TROP (?NSTEMI) CHEST PAIN, ELEVATED TROP (?NSTEMI) CHEST PAIN, ELEVATED TROP (?NSTEMI) Reason for Visit CAD (coronary artery disease) Chest pain Diabetes Dyslipidemia History of coronary artery bypass graft x 3 NSTEMI (non-ST elevated myocardial infarction) Hypertension Chief Complaint CP CP CHEST PAIN, ELEVATED TROP (?NSTEMI) CHEST PAIN, ELEVATED TROP (?NSTEMI) CHEST PAIN, ELEVATED TROP (?NSTEMI) CHEST PAIN, ELEVATED TROP (?NSTEMI) PCI W/CORONARY STENTING, PTCA PCI w/coronary stenting, PTCA failed CABG graft Chief Complaint Admit Date PTCA November 20, 2024 1 0:15am 4 M FU February 11, 2025 1:1 0pm NONRHEUMATIC MITRAL VALVE INSUFFICIENCY March 11, 2025 9:56am Amb Documentation March 12, 2025 12:30 pm Reason for Visit Admit Date S/P CABG x 3 February 11, 2025 1:1 0pm CAD (coronary artery disease) January 1:10pm Carotid bruit February 11, 2025 1:1 0pm Diabetes February 11, 2025 1:1 0pm Dyslipidemia February 11, 2025 1:1 0pm Hypertension February 11, 2025 1:1 0pm Mitral valve regurgitation February 11, 025 1:10pm Stented coronary artery February 11, 2025 1:10pm Chief Complaint Admit Date 4 M FU February 11, 2025 1:1 0pm NONRHEUMATIC MITRAL VALVE INSUFFICIENCY March 11, 2025 9:56am Amb Documentation March 12, 2025 12:30 pm HEAD INJURY April 29, 2025 10:27 pm Chief Complaint Admit Date 4 M FU February 11, 2025 1:1 0pm NONRHEUMATIC MITRAL VALVE INSUFFICIENCY March 11, 2025 9:56am Amb Documentation March 12, 2025 12:30 pm HEAD INJURY April 29, 2025 10:27 pm RIGHT HAND May 06, 2025 1:58 pm Room 2 May 06, 2025 2:10 pm Chief Complaint Admit Date 4 M FU February 11, 2025 1:1 0pm NONRHEUMATIC MITRAL VALVE INSUFFICIENCY March 11, 2025 9:56am Amb Documentation March 12, 2025 12:30 pm HEAD INJURY April 29, 2025 10:27 pm RIGHT HAND May 06, 2025 1:58 pm Room 2 May 06, 2025 2:10 pm R HAND May 07, 2025 1:10 pm Reason for Visit Admit Date S/P CABG x 3 February 11, 2025 1:1 0pm CAD (coronary artery disease) January 1:10pm Carotid bruit February 11, 2025 1:1 0pm Diabetes February 11, 2025 1:1 0pm Dyslipidemia February 11, 2025 1:1 0pm Hypertension February 11, 2025 1:1 0pm Mitral valve regurgitation February 11 025 1:10pm Stented coronary artery February 11, 2025 1:10pm Fracture of second metacarpal bone of ri ght hand May 06, 2025 1:58pm Family History No Family History Records Found Relationship Condition Age at Onset Recorded Date/T agnes mother Malignant neoplasm Unknown father Cerebrovascular accident (CVA) Unknown Reason for Referral Specialty Diagnoses / Procedures Referred By Contac t Referred To Contact Cardiology Diagnoses Essential hypertension S/P CABG x 3 Procedures CONSULT TO CARDIOLOGY OFFICE/OUTPATIENT [facility] MDM 60-74 MINUTES Sher Jules MD [address] [place] [address] Referral ID Status Reason Start Date Expiration Date Visits Requested Visits Authorized [id number] Authorized PCP Requested Referral 06/11/2022 06/11/2023 1 1 Specialty Diagnoses / Procedures Referred By Contac t Referred To Contact CT IMAGING Diagnoses Peripheral vascular disease (HCC) Procedures CTA ABD/PEL LOWER EXTREM W IVCON CTA ABDL AORTA&BI ILIOFEM W/CONTRAST&POSTP Nargis Yin, DO [address] [place] [address] Ct Imaging Referral ID Status Reason Start Date Expiration Date Visits Requested Visits Authorized [id number] Authorized Auto-Generat ed Referral 01/15/2023 02/14/2024 1 1 Referral ID Status Reason Start Date Expiration Date V isits Requested Visits Authorized [id number] Closed Auto-Generate d Referral 01/15/2023 02/14/2024 1 1 Specialty Diagnoses / Procedures Referred By Contac t Referred To Contact General Surgery Diagnoses Screening for colon cancer Procedures CONSULT TO GENERAL SURGERY OFFICE/OUTPATIENT [facility] MDM 60 MINUTES Barb Suggs, MUSEUM CURATOR.[employer] SUPER[employer] [address] [place] [address] Referral ID Status Reason Start Date Expiration Date Visits Requested Visits Authorized [id number] Authorized PCP Requested Referral 02/03/2024 02/02/2025 1 1 Specialty Diagnoses / Procedures Referred By Contac t Referred To Contact General Surgery Diagnoses Special screening for malignant neoplasms, colon Procedures CONSULT TO GENERAL SURGERY OFFICE/OUTPATIENT [facility] 60 MINUTES Sher Jules MD [address] [place] [address] Referral ID Status Reason Start Date Expiration Date Visits Requested Visits Authorized [id number] Authorized PCP Requested Referral 03/11/2024 03/11/2025 1 1 Summary Purpose Additional Source Comments Source Comments (unrecognize d section and content) In the event this informatio n is protected by the Federal Confidentiality of Alcohol and Drug Abuse Patient Records regulations: The Federal rules restrict any use of the information to criminally investigate or prosecute any alcohol or drug abuse patient.[facility] [place]In the event this information is protected by the Federal Confidentiality of Alcohol and Drug Abuse Patient Records regulations: The Federal rules restrict any use of the information to criminally investigate or prosecute any alcohol or drug abuse patient.[facility] [place]In the event this information is protected by the Federal Confidentiality of Alcohol and Drug Abuse Patient Records regulations: The Federal rules restrict any use of the information to criminally investigate or prosecute any alcohol or drug abuse patient.[facility] [place]In the event this information is protected by the Federal Confidentiality of Alcohol and Drug Abuse Patient Records regulations: The Federal rules restrict any use of the information to criminally investigate or prosecute any alcohol or drug abuse patient.[facility] [place]In the event this information is protected by the Federal Confidentiality of Alcohol and Drug Abuse Patient Records regulations: The Federal rules restrict any use of the information to criminally investigate or prosecute any alcohol or drug abuse patient.[facility] [place]In the event this information is protected by the Federal Confidentiality of Alcohol and Drug Abuse Patient Records regulations: The Federal rules restrict any use of the information to criminally investigate or prosecute any alcohol or drug abuse patient.[facility] [place]In the event this information is protected by the Federal Confidentiality of Alcohol and Drug Abuse Patient Records regulations: The Federal rules restrict any use of the information to criminally investigate or prosecute any alcohol or drug abuse patient.[facility] [place]In the event this information is protected by the Federal Confidentiality of Alcohol and Drug Abuse Patient Records regulations: The Federal rules restrict any use of the information to criminally investigate or prosecute any alcohol or drug abuse patient.[facility] [place]In the event this information is protected by the Federal Confidentiality of Alcohol and Drug Abuse Patient Records regulations: The Federal rules restrict any use of the information to criminally investigate or prosecute any alcohol or drug abuse patient.[facility] [place]In the event this information is protected by the Federal Confidentiality of Alcohol and Drug Abuse Patient Records regulations: The Federal rules restrict any use of the information to criminally investigate or prosecute any alcohol or drug abuse patient.[facility] [place]In the event this information is protected by the Federal Confidentiality of Alcohol and Drug Abuse Patient Records regulations: The Federal rules restrict any use of the information to criminally investigate or prosecute any alcohol or drug abuse patient.[facility] [place]In the event this information is protected by the Federal Confidentiality of Alcohol and Drug Abuse Patient Records regulations: The Federal rules restrict any use of the information to criminally investigate or prosecute any alcohol or drug abuse patient.[facility] [place]In the event this information is protected by the Federal Confidentiality of Alcohol and Drug Abuse Patient Records regulations: The Federal rules restrict any use of the information to criminally investigate or prosecute any alcohol or drug abuse patient.[facility] [place]In the event this information is protected by the Federal Confidentiality of Alcohol and Drug Abuse Patient Records regulations: The Federal rules restrict any use of the information to criminally investigate or prosecute any alcohol or drug abuse patient.[facility] [place]In the event this information is protected by the Federal Confidentiality of Alcohol and Drug Abuse Patient Records regulations: The Federal rules restrict any use of the information to criminally investigate or prosecute any alcohol or drug abuse patient.[facility] [place]In the event this information is protected by the Federal Confidentiality of Alcohol and Drug Abuse Patient Records regulations: The Federal rules restrict any use of the information to criminally investigate or prosecute any alcohol or drug abuse patient.[facility] [place]In the event this information is protected by the Federal Confidentiality of Alcohol and Drug Abuse Patient Records regulations: The Federal rules restrict any use of the information to criminally investigate or prosecute any alcohol or drug abuse patient.[facility] [place]In the event this information is protected by the Federal Confidentiality of Alcohol and Drug Abuse Patient Records regulations: The Federal rules restrict any use of the information to criminally investigate or prosecute any alcohol or drug abuse patient.[facility] [place]In the event this information is protected by the Federal Confidentiality of Alcohol and Drug Abuse Patient Records regulations: The Federal rules restrict any use of the information to criminally investigate or prosecute any alcohol or drug abuse patient.[facility] [place]In the event this information is protected by the Federal Confidentiality of Alcohol and Drug Abuse Patient Records regulations: The Federal rules restrict any use of the information to criminally investigate or prosecute any alcohol or drug abuse patient.[facility] [place]In the event this information is protected by the Federal Confidentiality of Alcohol and Drug Abuse Patient Records regulations: The Federal rules restrict any use of the information to criminally investigate or prosecute any alcohol or drug abuse patient.[facility] [place]In the event this information is protected by the Federal Confidentiality of Alcohol and Drug Abuse Patient Records regulations: The Federal rules restrict any use of the information to criminally investigate or prosecute any alcohol or drug abuse patient.[facility] [place]In the event this information is protected by the Federal Confidentiality of Alcohol and Drug Abuse Patient Records regulations: The Federal rules restrict any use of the information to criminally investigate or prosecute any alcohol or drug abuse patient.[facility] [place]In the event this information is protected by the Federal Confidentiality of Alcohol and Drug Abuse Patient Records regulations: The Federal rules restrict any use of the information to criminally investigate or prosecute any alcohol or drug abuse patient.[facility] [place]In the event this information is protected by the Federal Confidentiality of Alcohol and Drug Abuse Patient Records regulations: The Federal rules restrict any use of the information to criminally investigate or prosecute any alcohol or drug abuse patient.[facility] [place]In the event this information is protected by the Federal Confidentiality of Alcohol and Drug Abuse Patient Records regulations: The Federal rules restrict any use of the information to criminally investigate or prosecute any alcohol or drug abuse patient.[facility] [place]In the event this information is protected by the Federal Confidentiality of Alcohol and Drug Abuse Patient Records regulations: The Federal rules restrict any use of the information to criminally investigate or prosecute any alcohol or drug abuse patient.[facility] [place]In the event this information is protected by the Federal Confidentiality of Alcohol and Drug Abuse Patient Records regulations: The Federal rules restrict any use of the information to criminally investigate or prosecute any alcohol or drug abuse patient.[facility] [place]In the event this information is protected by the Federal Confidentiality of Alcohol and Drug Abuse Patient Records regulations: The Federal rules restrict any use of the information to criminally investigate or prosecute any alcohol or drug abuse patient.[facility] [place]In the event this information is protected by the Federal Confidentiality of Alcohol and Drug Abuse Patient Records regulations: The Federal rules restrict any use of the information to criminally investigate or prosecute any alcohol or drug abuse patient.[facility] [place]In the event this information is protected by the Federal Confidentiality of Alcohol and Drug Abuse Patient Records regulations: The Federal rules restrict any use of the information to criminally investigate or prosecute any alcohol or drug abuse patient.[facility] [place]In the event this information is protected by the Federal Confidentiality of Alcohol and Drug Abuse Patient Records regulations: The Federal rules restrict any use of the information to criminally investigate or prosecute any alcohol or drug abuse patient.[facility] [place]In the event this information is protected by the Federal Confidentiality of Alcohol and Drug Abuse Patient Records regulations: The Federal rules restrict any use of the information to criminally investigate or prosecute any alcohol or drug abuse patient.[facility] [place]In the event this information is protected by the Federal Confidentiality of Alcohol and Drug Abuse Patient Records regulations: The Federal rules restrict any use of the information to criminally investigate or prosecute any alcohol or drug abuse patient.[facility] [place]In the event this information is protected by the Federal Confidentiality of Alcohol and Drug Abuse Patient Records regulations: The Federal rules restrict any use of the information to criminally investigate or prosecute any alcohol or drug abuse patient.[facility] [place]In the event this information is protected by the Federal Confidentiality of Alcohol and Drug Abuse Patient Records regulations: The Federal rules restrict any use of the information to criminally investigate or prosecute any alcohol or drug abuse patient.[facility] [place]In the event this information is protected by the Federal Confidentiality of Alcohol and Drug Abuse Patient Records regulations: The Federal rules restrict any use of the information to criminally investigate or prosecute any alcohol or drug abuse patient.[facility] [place]In the event this information is protected by the Federal Confidentiality of Alcohol and Drug Abuse Patient Records regulations: The Federal rules restrict any use of the information to criminally investigate or prosecute any alcohol or drug abuse patient.[facility] [place]In the event this information is protected by the Federal Confidentiality of Alcohol and Drug Abuse Patient Records regulations: The Federal rules restrict any use of the information to criminally investigate or prosecute any alcohol or drug abuse patient.[facility] [place]In the event this information is protected by the Federal Confidentiality of Alcohol and Drug Abuse Patient Records regulations: The Federal rules restrict any use of the information to criminally investigate or prosecute any alcohol or drug abuse patient.[facility] [place]In the event this information is protected by the Federal Confidentiality of Alcohol and Drug Abuse Patient Records regulations: The Federal rules restrict any use of the information to criminally investigate or prosecute any alcohol or drug abuse patient.[facility] [place]In the event this information is protected by the Federal Confidentiality of Alcohol and Drug Abuse Patient Records regulations: The Federal rules restrict any use of the information to criminally investigate or prosecute any alcohol or drug abuse patient.[facility] [place]In the event this information is protected by the Federal Confidentiality of Alcohol and Drug Abuse Patient Records regulations: The Federal rules restrict any use of the information to criminally investigate or prosecute any alcohol or drug abuse patient.[facility] [place]In the event this information is protected by the Federal Confidentiality of Alcohol and Drug Abuse Patient Records regulations: The Federal rules restrict any use of the information to criminally investigate or prosecute any alcohol or drug abuse patient.[facility] [place]In the event this information is protected by the Federal Confidentiality of Alcohol and Drug Abuse Patient Records regulations: The Federal rules restrict any use of the information to criminally investigate or prosecute any alcohol or drug abuse patient.[facility] [place]In the event this information is protected by the Federal Confidentiality of Alcohol and Drug Abuse Patient Records regulations: The Federal rules restrict any use of the information to criminally investigate or prosecute any alcohol or drug abuse patient.[facility] [place]In the event this information is protected by the Federal Confidentiality of Alcohol and Drug Abuse Patient Records regulations: The Federal rules restrict any use of the information to criminally investigate or prosecute any alcohol or drug abuse patient.[facility] [place]In the event this information is protected by the Federal Confidentiality of Alcohol and Drug Abuse Patient Records regulations: The Federal rules restrict any use of the information to criminally investigate or prosecute any alcohol or drug abuse patient.[facility] [place]In the event this information is protected by the Federal Confidentiality of Alcohol and Drug Abuse Patient Records regulations: The Federal rules restrict any use of the information to criminally investigate or prosecute any alcohol or drug abuse patient.[facility] [place]In the event this information is protected by the Federal Confidentiality of Alcohol and Drug Abuse Patient Records regulations: The Federal rules restrict any use of the information to criminally investigate or prosecute any alcohol or drug abuse patient.[facility] [place]In the event this information is protected by the Federal Confidentiality of Alcohol and Drug Abuse Patient Records regulations: The Federal rules restrict any use of the information to criminally investigate or prosecute any alcohol or drug abuse patient.[facility] [place]In the event this information is protected by the Federal Confidentiality of Alcohol and Drug Abuse Patient Records regulations: The Federal rules restrict any use of the information to criminally investigate or prosecute any alcohol or drug abuse patient.[facility] [place]In the event this information is protected by the Federal Confidentiality of Alcohol and Drug Abuse Patient Records regulations: The Federal rules restrict any use of the information to criminally investigate or prosecute any alcohol or drug abuse patient.[facility] [place]In the event this information is protected by the Federal Confidentiality of Alcohol and Drug Abuse Patient Records regulations: The Federal rules restrict any use of the information to criminally investigate or prosecute any alcohol or drug abuse patient.[facility] [place]In the event this information is protected by the Federal Confidentiality of Alcohol and Drug Abuse Patient Records regulations: The Federal rules restrict any use of the information to criminally investigate or prosecute any alcohol or drug abuse patient.[facility] [place]In the event this information is protected by the Federal Confidentiality of Alcohol and Drug Abuse Patient Records regulations: The Federal rules restrict any use of the information to criminally investigate or prosecute any alcohol or drug abuse patient.[facility] [place]In the event this information is protected by the Federal Confidentiality of Alcohol and Drug Abuse Patient Records regulations: The Federal rules restrict any use of the information to criminally investigate or prosecute any alcohol or drug abuse patient.[facility] [place]In the event this information is protected by the Federal Confidentiality of Alcohol and Drug Abuse Patient Records regulations: The Federal rules restrict any use of the information to criminally investigate or prosecute any alcohol or drug abuse patient.[facility] [place]In the event this information is protected by the Federal Confidentiality of Alcohol and Drug Abuse Patient Records regulations: The Federal rules restrict any use of the information to criminally investigate or prosecute any alcohol or drug abuse patient.[facility] [place]In the event this information is protected by the Federal Confidentiality of Alcohol and Drug Abuse Patient Records regulations: The Federal rules restrict any use of the information to criminally investigate or prosecute any alcohol or drug abuse patient.[facility] [place]In the event this information is protected by the Federal Confidentiality of Alcohol and Drug Abuse Patient Records regulations: The Federal rules restrict any use of the information to criminally investigate or prosecute any alcohol or drug abuse patient.[facility] [place]In the event this information is protected by the Federal Confidentiality of Alcohol and Drug Abuse Patient Records regulations: The Federal rules restrict any use of the information to criminally investigate or prosecute any alcohol or drug abuse patient.[facility] [place]In the event this information is protected by the Federal Confidentiality of Alcohol and Drug Abuse Patient Records regulations: The Federal rules restrict any use of the information to criminally investigate or prosecute any alcohol or drug abuse patient.[facility] [place]In the event this information is protected by the Federal Confidentiality of Alcohol and Drug Abuse Patient Records regulations: The Federal rules restrict any use of the information to criminally investigate or prosecute any alcohol or drug abuse patient.[facility] [place]In the event this information is protected by the Federal Confidentiality of Alcohol and Drug Abuse Patient Records regulations: The Federal rules restrict any use of the information to criminally investigate or prosecute any alcohol or drug abuse patient.[facility] [place]In the event this information is protected by the Federal Confidentiality of Alcohol and Drug Abuse Patient Records regulations: The Federal rules restrict any use of the information to criminally investigate or prosecute any alcohol or drug abuse patient.[facility] OhioIn the event this information is protected by the Federal Confidentiality of Alcohol and Drug Abuse Patient Records regulations: The Federal rules restrict any use of the information to criminally investigate or prosecute any alcohol or drug abuse patient.[facility] [place] the event this information is protected by the Federal Confidentiality of Alcohol and Drug Abuse Patient Records regulations: The Federal rules restrict any use of the information to criminally investigate or prosecute any alcohol or drug abuse patient.[facility] [place]In the event this information is protected by the Federal Confidentiality of Alcohol and Drug Abuse Patient Records regulations: The Federal rules restrict any use of the information to criminally investigate or prosecute any alcohol or drug abuse patient.[facility] [place]In the event this information is protected by the Federal Confidentiality of Alcohol and Drug Abuse Patient Records regulations: The Federal rules restrict any use of the information to criminally investigate or prosecute any alcohol or drug abuse patient.[facility] [place] the event this information is protected by the Federal Confidentiality of Alcohol and Drug Abuse Patient Records regulations: The Federal rules restrict any use of the information to criminally investigate or prosecute any alcohol or drug abuse patient.[facility] [place] the event this information is protected by the Federal Confidentiality of Alcohol and Drug Abuse Patient Records regulations: The Federal rules restrict any use of the information to criminally investigate or prosecute any alcohol or drug abuse patient.[facility] [place]In the event this information is protected by the Federal Confidentiality of Alcohol and Drug Abuse Patient Records regulations: The Federal rules restrict any use of the information to criminally investigate or prosecute any alcohol or drug abuse patient.[facility] [place]In the event this information is protected by the Federal Confidentiality of Alcohol and Drug Abuse Patient Records regulations: The Federal rules restrict any use of the information to criminally investigate or prosecute any alcohol or drug abuse patient.[facility] [place]In the event this information is protected by the Federal Confidentiality of Alcohol and Drug Abuse Patient Records regulations: The Federal rules restrict any use of the information to criminally investigate or prosecute any alcohol or drug abuse patient.[facility] [place]In the event this information is protected by the Federal Confidentiality of Alcohol and Drug Abuse Patient Records regulations: The Federal rules restrict any use of the information to criminally investigate or prosecute any alcohol or drug abuse patient.[facility] [place]In the event this information is protected by the Federal Confidentiality of Alcohol and Drug Abuse Patient Records regulations: The Federal rules restrict any use of the information to criminally investigate or prosecute any alcohol or drug abuse patient.[facility] [place]In the event this information is protected by the Federal Confidentiality of Alcohol and Drug Abuse Patient Records regulations: The Federal rules restrict any use of the information to criminally investigate or prosecute any alcohol or drug abuse patient.[facility] [place] Reason for Visit (unrecogniz ed section and content) Reason Onset Date Comments Refill Request 02/28/2022 Reason Comments Established Patient Reason Comments Established Patient Nail Check Reason Comments Dr. 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 Reason Comments Appointment Reason Comments Hospital F/U Reason Onset Date Comments Refill Request 06/14/2022 Reason Comments Blood Pressure Check Reason Onset Date Comments Refill Request 07/09/2022 Reason Onset Date Comments Follow Up Immunizations 07/18/2022 Flu vaccination Reason Comments Consult Specialty Diagnoses / Procedures Referred By Contac t Referred To Contact Cardiology Diagnoses Essential hypertension S/P CABG x 3 Procedures CONSULT TO CARDIOLOGY OFFICE/OUTPATIENT [facility] 60-74 MINUTES Sher Jules MD [address] [place] [address] Referral ID Status Reason Start Date Expiration Date V isits Requested Visits Authorized [id number] Closed PCP Requested Referral 06/11/2022 06/11/2023 1 1 Reason Comments Established Patient Follow Up Diabetic Foot Care Reason Comments Covid19 Concern Reason Comments TIA Specialty Diagnoses / Procedures Referred By Contac t Referred To Contact Neurology Diagnoses Central retinal artery occlusion of left eye Procedures CONSULT TO NEUROLOGY OFFICE/OUTPATIENT [facility] 60-74 MINUTES Jules Dukes MD [address] [place] [address] Referral ID Status Reason Start Date Expiration Date V isits Requested Visits Authorized [id number] Closed PCP Requested Referral 09/05/2022 09/05/2023 1 1 Reason Comments Follow Up Reason Onset Date Comments Population Health Navigation Outreach 10/10/2022 ACO CELINE PCSA Reason Onset Date Comments Refill Request 10/23/2022 Reason Comments Medication Request Reason Comments Refill Request Reason Onset Date Comments Refill Request 01/16/2023 Reason Onset Date Comments Refill Request 01/30/2023 Reason Comments Med Change Request Reason Comments Follow Up 7 MONTH Specialty Diagnoses / Procedures Referred By Jose lugo Referred To Contact CT IMAGING Diagnoses Peripheral vascular disease (HCC) Procedures CTA ABD/PEL LOWER EXTREM W IVCON CTA ABDL AORTA&BI ILIOFEM W/CONTRAST&POSTP Nargis Yin, DO [address] [place] [address] Ct Imaging Referral ID Status Reason Start Date Expiration Date V isits Requested Visits Authorized [id number] Closed Auto-Generate d Referral 01/15/2023 02/14/2024 1 1 Reason Onset Date Comments Refill Request 03/27/2023 Reason Comments Established Patient Reason Comments Established Patient nail care Reason Comments Follow Up Reason Comments Established Patient Diabetic Foot Care Follow Up Reason Comments F/U 6 months Reason Onset Date Comments Population Health Navigation Outreach 09/10/2023 ACO CARE GAP Reason Comments Established Patient Diabetic Foot Care Reason Onset Date Comments Refill Request 12/20/2023 Reason Onset Date Comments Refill Request 01/06/2024 Reason Onset Date Comments Refill Request 2024 Reason Comments Arm Pain Reason Comments Arm Pain X 6 weeks Reason Onset Date Comments Transition Of Care 01/31/2024 Reason Comments PT HOSPITALIZED Reason Comments Hospital F/U D/c from [facility] on 01/29 for chest pain an elevated troponin, heart cath completed Reason Onset Date Comments Refill Request 02/25/2024 Reason Onset Date Comments colorectal cancer screening 02/03/2024 Reason Comments Medicare Wellness Exam Reason Comments Colonoscopy Consult Last colonoscopy 2018 Specialty Diagnoses / Procedures Referred By Contac t Referred To Contact General Surgery Diagnoses Special screening for malignant neoplasms, colon Procedures CONSULT TO GENERAL SURGERY OFFICE/OUTPATIENT NEW HIGH MDM 60 MINUTES Sher Jules MD [address] [place] [address] Referral ID Status Reason Start Date Expiration Date V isits Requested Visits Authorized [id number] Closed PCP Requested Referral 03/11/2024 03/11/2025 1 1 Reason Onset Date Comments Refill Request 06/16/2024 Reason Onset Date Comments Refill Request 07/02/2024 Reason Comments 6 Month Exam Reason Comments Results Reason Comments Medication Update Reason Comments New Patient Reason Comments Recheck Follow up, BP 2 sten t placement Reason Onset Date Comments Refill Request 02/01/2025 Reason Comments Established Patient Follow Up Diabetic Foot Care Numbness Reason Comments Follow Up 1 year follow up PAD Reason Comments Follow Up Follow up EGD and co lonoscopy Care Teams (unrecognized sec tion and content) Senior C Developer Relationship Specialty Start Date End Date Sher Jules MD [address] [place] [address] PCP - General 07/28/08 Senior C Developer Relationship Specialty Start Date End Date Sher Jules MD [address] [place] [address] PCP - General 07/28/08 Senior C Developer Relationship Specialty Start Date End Date Sher Jules MD [address] [place] [id number] PCP - General 07/28/08 Senior C Developer Relationship Specialty Start Date End Date Sher Jules MD [address] [place] [address] PCP - General 07/28/08 Senior C Developer Relationship Specialty Start Date End Date Sher Jules MD [address] [place] [address] PCP - General 07/28/08 Senior C Developer Relationship Specialty Start Date End Date Sher Jules MD [address] [facility] [place] [place] [address] PCP - General 07/28/08 Senior C Developer Relationship Specialty Start Date End Date Sher Jules MD [facility] [place] [place] [address] PCP - General 07/28/08 Senior C Developer Relationship Specialty Start Date End Date Sher Jules MD [address] [place] [address], [place] [address] PCP - General 07/28/08 Senior C Developer Relationship Specialty Start Date End Date Sher Jules MD [address] [place] [address] [place] [address] PCP - General 07/28/08 Senior C Developer Relationship Specialty Start Date End Date Sher Jules MD [address] [place] [address], [place] [address] PCP - General 07/28/08 Senior C Developer Relationship Specialty Start Date End Date Sher Jules MD [address] [place] [address] [place] [address] PCP - General 07/28/08 Senior C Developer Relationship Specialty Start Date End Date Sher Jules MD [address] [place] [address] [place] [address] PCP - General 07/28/08 Trevor Robison MD [address] [place] [address] [place] [address] Neurology 10/01/22 Senior C Developer Relationship Specialty Start Date End Date Sher Jules MD [address] [place] [address] [place] [address] PCP - General 07/28/08 Trevor Robison MD [address] [place] [address] [place] [address] Neurology 10/01/22 Senior C Developer Relationship Specialty Start Date End Date Sher Jules MD [address] [facility] [place] [place] [address] PCP - General 07/28/08 Trevor Robison MD [address] [facility] [place] [address] Neurology 10/01/22 Senior C Developer Relationship Specialty Start Date End Date Sher Jules MD [address] [place] [address] PCP - General 07/28/08 Trevor Robison MD [address] [facility] [place] [address] Neurology 10/01/22 Senior C Developer Relationship Specialty Start Date End Date Sher Jules MD [address] [place] [address] PCP - General 07/28/08 Trevor Robison MD [address] [facility] [place] [address] Neurology 10/01/22 Senior C Developer Relationship Specialty Start Date End Date Sher Jules MD [address] [place] [address] PCP - General 07/28/08 Trevor Robison MD [address] [facility] [place] [address] Neurology 10/01/22 Senior C Developer Relationship Specialty Start Date End Date Sher Jules MD [address] [facility] [place] [place] [address] PCP - General 07/28/08 Trevor Robison MD [address] [facility] [place] [address] Neurology 10/01/22 Senior C Developer Relationship Specialty Start Date End Date Sher Jules MD [address] [facility] [place] [place] [address] PCP - General 07/28/08 Trevor Robison MD [address] [facility] [place] [address] Neurology 10/01/22 Senior C Developer Relationship Specialty Start Date End Date Sher Jules MD [address] [place] [address] PCP - General 07/28/08 Trevor Robison MD [address] [facility] [place] [place] [address] Neurology 10/01/22 Senior C Developer Relationship Specialty Start Date End Date Sher Jules MD [address] [place] [address] PCP - General 07/28/08 Trevor Robison MD [address] [facility] [place] [place] [address] Neurology 10/01/22 Senior C Developer Relationship Specialty Start Date End Date Sher Jules MD [address] [place] [address] PCP - General 07/28/08 Trevor Robison MD [address] [facility] [place] [address] Neurology 10/01/22 Senior C Developer Relationship Specialty Start Date End Date Sher Jules MD [address] [place] [address] PCP - General 07/28/08 Trevor Robison MD [address] [facility] [place] [place] [address] Neurology 10/01/22 Senior C Developer Relationship Specialty Start Date End Date Sher Jules MD [address] [place], [place] 553711 PCP - General 07/28/08 Trevor Robison MD [address] [facility] [address] [place], [place] 48[address] Neurology 10/01/22 Senior C Developer Relationship Specialty Start Date End Date Sher Jules MD [address] [place], [place] 501501 PCP - General 07/28/08 Trevor Robison MD [address] [facility] [address] [place], [place] [address] Neurology 10/01/22 Senior C Developer Relationship Specialty Start Date End Date Sher Jules MD [address] [place], [place] 481331 PCP - General 07/28/08 Trevor Robison MD [address] [facility] [place] [place] [address] Neurology 10/01/22 Senior C Developer Relationship Specialty Start Date End Date Sher Jules MD [address] [place], [place] 310191 PCP - General 07/28/08 Trevor Robison MD [address] [facility] [address] [place], [place] [address] Neurology 10/01/22 Senior C Developer Relationship Specialty Start Date End Date Sher Jules MD [address] [place], [place] [id number] PCP - General 07/28/08 Trevor Robison MD [address] [facility] [address] [place], [place] [address] Neurology 10/01/22 Senior C Developer Relationship Specialty Start Date End Date Sehr Jules MD [address] [place], [place] 091281 PCP - General 07/28/08 Trevor Robison MD [address] [facility] [address] [place], [place] 754261 Neurology 10/01/22 Senior C Developer Relationship Specialty Start Date End Date Sher Jules MD [address] [place], [place] 862441 PCP - General 07/28/08 Trevor Robison MD [address] [facility] [address] [place], [place] [address]238[address] Neurology 10/01/22 Senior C Developer Relationship Specialty Start Date End Date Sher Jules MD [address] [place], [place] 702261 PCP - General 07/28/08 Trevor Robison MD [address] [facility] [address] [place], [place] [address]367[address] Neurology 10/01/22 Senior C Developer Relationship Specialty Start Date End Date Sher Jules MD [address] [place], [place] 025431 PCP - General 07/28/08 Trevor Robison MD [address] [facility] [address] [place], [place] 683671 Neurology 10/01/22 Senior C Developer Relationship Specialty Start Date End Date Sher Jules MD [address] [place], [place] 346871 PCP - General 07/28/08 Trevor Robison MD [address] [facility] [address] [place], [place] [address] Neurology 10/01/22 Senior C Developer Relationship Specialty Start Date End Date Sher Jules MD [address] [place], [place] 387781 PCP - General 07/28/08 Trevor Robison MD [address] [facility] [address] [place], [place] [address]62[address] Neurology 10/01/22 Senior C Developer Relationship Specialty Start Date End Date Sher Jules MD [address] [place], [place] 730061 PCP - General 07/28/08 Trevor Robison MD [address] [facility] [address] [place], [place] 905181 Neurology 10/01/22 Senior C Developer Relationship Specialty Start Date End Date Sher Jules MD [address] [place], [place] 33844691 PCP - General 07/28/08 Trevor Robison MD [address] [facility] [address] [place], [place] [address] Neurology 10/01/22 Team Status: Active Member Role Status Dates Dr. Sher Jules MD Family Provider Active Dr. Sher Jules MD Primary Care Provider Active Team Status: Active Member Role Status Dates Dr. Sher Jules MD Primary Care Provider Active Dr. Kvng Jacobson DO Emergency Provider Active Dr. Rubio Simeon MD Attending Provider, Referring Pr ovider Active Team Status: Active Member Role Status Dates Dr. Sher Jules MD Primary Care Provider Active Dr. Kvng Jacobson DO Emergency Provider Active Dr. Rubio Simeon MD Referring Provider Active Dr. Geeta Mendoza MD Attending Provider Active Team Status: Active Member Role Status Dates Dr. Sher Jules MD Primary Care Provider Active Dr. Kvng Jacobson DO Emergency Provider Active Dr. Rubio Simeon MD Referring Provider Active Dr. Geeta Mendoza MD Admit Provider, Attending Prov ider Active Team Status: Active Member Role Status Dates Dr. Sher Jules MD Primary Care Provider Active Dr. Rubio Simeon MD Attending Provider Active Team Status: Active Member Role Status Dates Dr. Sher Jules MD Primary Care Provider Active Dr. Kvng Jacobson DO Emergency Provider Active Dr. Rubio Simeon MD Referring Provider, Other Provid er Active Dr. Geeta Mendoza MD Admit Provider, Other Provider Active Dr. Debby Machuca MD Attending Provider, Other Prov ider Active Team Status: Active Member Role Status Dates Dr. Sher Jules MD Primary Care Provider Active Dr. Karl Wan MD Attending Provider Active Team Status: Active Member Role Status Dates Dr. Sher Jules MD Primary Care Provider Active Dr. Kvng Jacobson DO Emergency Provider Active Dr. Rubio Simeon MD Referring Provider, Other Provid er Active Dr. Geeta Mendoza MD Admit Provider, Attending Provider, Other Provider Active Dr. Debby Machuca MD Other Provider Active Team Status: Active Member Role Status Dates Dr. Sher Jules MD Primary Care Provider Active Dr. Kvng Jacobson DO Emergency Provider Active Dr. Rubio Simeon MD Attending Provider , Referring Provider, Other Provider Active Dr. Geeta Mendoza MD Admit Provider, Other Provider Active Dr. Debby Machuca MD Other Provider Active Team Status: Inactive Member Role Status Dates Dr. Sher Jlues MD Primary Care Provider Active Dr. Kvng Jacobson DO Emergency Provider Active Dr. Rubio Simeon MD Referring Provider, Other Provid er Active Dr. Geeta Mendoza MD Admit Provider, Other Provider Active Dr. Debby Machuca MD Attending Provider Active Senior C Developer Relationship Specialty Start Date End Date Sher Jules MD [address] [place] [address] PCP - General 07/28/08 Trevor Robison MD [address] [facility] [place] [address] Neurology 10/01/22 Senior C Developer Relationship Specialty Start Date End Date Sher Jules MD [address] [place] [address] PCP - General 07/28/08 Trevor Robison MD [address] [facility] [place] [place] [address] Neurology 10/01/22 Senior C Developer Relationship Specialty Start Date End Date Sher Jules MD [address] [place] [address] PCP - General 07/28/08 Trevor Robison MD [address] [facility] [place] [place] [address] Neurology 10/01/22 Team Status: Active Member Role Status Dates Dr. Sher Jules MD Primary Care Provider Active Dr. Kvng Jacobson DO Emergency Provider Active Dr. Rubio Simeon MD Other Provider Active Dr. Geeta Mendoza MD Admit Provider, Other Provider Active Dr. Debby Machuca MD Attending Provider, Other Prov ider Active Team Status: Active Member Role Status Dates Dr. Sher Jules MD Primary Care Provider Active Dr. Karl Wan MD Attending Provider Active Dr. Rubio Simeon MD Referring Provider Active Team Status: Active Member Role Status Dates Dr. Sher Jules MD Primary Care Provider Active Dr. Kvng Jacobson DO Emergency Provider Active Dr. Rubio Simeon MD Other Provider Active Dr. Geeta Mendoza MD Admit Provider, Attending Provider, Other Provider Active Dr. Debby Machuca MD Other Provider Active Team Status: Inactive Member Role Status Dates Dr. Sher Jules MD Primary Care Provider Active Bib Patterson MD Attending Provider, Referring Provid er Active Team Status: Active Member Role Status Dates Dr. Sher Jules MD Primary Care Provider Active Bib Patterson MD Attending Provider, Referring Provid er Active Senior C Developer Relationship Specialty Start Date End Date Sher Jules MD [address] [place], [place] 133741 PCP - General 07/28/08 Trevor Robison MD [address] [facility] [address] [place], [place] 6532[address] Neurology 10/01/22 Senior C Developer Relationship Specialty Start Date End Date Sher Jules MD [address] [place], [place] 869561 PCP - General 07/28/08 Trevor Robison MD [address] [facility] [address] [place], [place] [address] Neurology 10/01/22 Senior C Developer Relationship Specialty Start Date End Date Sher Jules MD [address] [place], [place] [id number] PCP - General 07/28/08 Trevor Robison MD [address] [facility] [address] [place], [place] [address]67[address] Neurology 10/01/22 Senior C Developer Relationship Specialty Start Date End Date Sher Jules MD [address] [place], [place] 674941 PCP - General 07/28/08 Trevor Robison MD [address] [facility] [address] [place], [place] [address]31 Neurology 10/01/22 Senior C Developer Relationship Specialty Start Date End Date Sher Jules MD [address] [place], [place] [id number] PCP - General 07/28/08 Trevor Robison MD [address] [facility] [address] [place], [place] [id number] Neurology 10/01/22 Senior C Developer Relationship Specialty Start Date End Date Sher Jules MD [address] [place], [place] 805351 PCP - General 07/28/08 Trevor Robison MD [address] [facility] [address] [place], [place] [address] Neurology 10/01/22 Senior C Developer Relationship Specialty Start Date End Date Sher Jules MD [address] [place], [place] 871271 PCP - General 07/28/08 Trevor Robison MD [address] [facility] [address] [place], [place] 352521 Neurology 10/01/22 Senior C Developer Relationship Specialty Start Date End Date Sher Jules MD [address] [place], [place] [id number] PCP - General 07/28/08 Trevor Robison MD [address] [facility] [address] [place], [place] [id number] Neurology 10/01/22 Senior C Developer Relationship Specialty Start Date End Date Sher Jules MD [address] [place], [place] 287091 PCP - General 07/28/08 Trevor Robison MD [address] [facility] [address] [place], [place] 18314[address] Neurology 10/01/22 Senior C Developer Relationship Specialty Start Date End Date Sher Jules MD [address] [place], [place] 258281 PCP - General 07/28/08 Trevor Robison MD [address] [facility] [address] [place], [place] [address] Neurology 10/01/22 Senior C Developer Relationship Specialty Start Date End Date Sher Jules MD [address] [place], [place] 880011 PCP - General 07/28/08 Trevor Robison MD [address] [facility] [address] [place], [place] 2[address]51 Neurology 10/01/22 Senior C Developer Relationship Specialty Start Date End Date Sher Jules [address] [place], [place] 671721 PCP - General Internal Medicine 09/16/24 Senior C Developer Relationship Specialty Start Date End Date Sher Jules [address] [facility] [place], [place] [address] PCP - General Internal Medicine 09/16/24 Senior C Developer Relationship Specialty Start Date End Date Sher Jules [address] [facility] [place] [address] PCP - General Internal Medicine 09/16/24 Senior C Developer Relationship Specialty Start Date End Date Sher Jules [address] [facility] [place] [place] [address] PCP - General Internal Medicine 09/16/24 Senior C Developer Relationship Specialty Start Date End Date Sher Jules MD [address] [facility] [place], [place] [address]131 PCP - General 07/28/08 Trevor Robison MD [address] [facility] [address] [place], [place] 9[address]871 Neurology 10/01/22 Barb Suggs, MUSEUM [email or web address].SLOT SUPERVISOR [address] [facility] [place] [place] [address] Firesetter Internal Medicine 10/05/24 Senior C Developer Relationship Specialty Start Date End Date Sher Jules MD [address] [facility] [place], [place] 346291 PCP - General 07/28/08 Trevor Robison MD [address] [facility] [place] [place] [address] Neurology 10/01/22 Barb Suggs, MUSEUM [email or web address].SLOT SUPERVISOR [address] [facility] [place] [place] [address] [employer] Internal Medicine 10/05/24 Senior C Developer Relationship Specialty Start Date End Date Sher Jules MD [address] [place] [address] PCP - General 07/28/08 Trevor Robison MD [address] [facility] [place] [address] Neurology 10/01/22 Barb Suggs, MUSEUM CURATOR.SLOT SUPERVISOR [address] [facility] [place] [address] [facility] Internal Medicine 10/05/24 Senior C Developer Relationship Specialty Start Date End Date Sher Jules MD [address] [facility] [place] [id number] PCP - General 07/28/08 Trevor Robison MD [address] [facility] [place] [address] Neurology 10/01/22 Barb Suggs, MUSEUM CURATOR.SLOT SUPERVISOR [address] [facility] [place] [address] [facility] 10/05/24 Senior C Developer Relationship Specialty Start Date End Date Sher Jules MD [address] [facility] [place], [place] [address] PCP - General 07/28/08 Trevor Robison MD [address] [facility] [place] [address] Neurology 10/01/22 Barb Suggs, MUSEUM CURATOR.SLOT SUPERVISOR [address] [facility] [place], [place] [id number] [facility] Internal Medicine 10/05/24 Senior C Developer Relationship Specialty Start Date End Date Sher Jules MD [address] [facility] [place], [place] [id number] PCP - General 07/28/08 Trevor Robison MD [address] [place] [address] [place] [address] Neurology 10/01/22 Barb Suggs, MUSEUM CURATOR.SLOT SUPERVISOR [address] [facility] [place], [place] [address] [facility] Internal Medicine 10/05/24 Team Status: Active Member Role Status Dates Dr. Sher Jules MD Primary Care Provider Active Team Status: Inactive Member Role Status Dates Dr. Sher Jules MD Primary Care Provider Active Start: November 20, 2024 End: November 27, 2024 Dr. Rubio Simeon MD Attending Provider Active Start: November 20, 2024 End: November 27, 2024 Dr. Rubio Simeon MD Referring Provider Active Start: November 20, 2024 End: November 27, 2024 Team Status: Inactive Member Role Status Dates Dr. Sher Jules MD Primary Care Provider Active Start: February 11, 2025 End: February 11, 2025 Dr. Sher Jules MD Referring Provider Active Start: February 11, 2025 End: February 11, 2025 Dr. Rubio Simeon MD Attending Provider Active Start: February 11, 2025 End: February 11, 2025 Team Status: Inactive Member Role Status Dates Dr. Sher Jules MD Primary Care Provider Active Start: March 11, 2025 End: March 11, 2025 Dr. Rubio Simeon MD Attending Provider Active Start: March 11, 2025 End: March 11, 2025 Dr. Rubio Simeon MD Referring Provider Active Start: March 11, 2025 End: March 11, 2025 Team Status: Active Member Role Status Dates Dr. Sher Jules MD Primary Care Provider Active Start: March 11, 2025 Dr. Rubio Simeon MD Attending Provider Active Start: March 11, 2025 Team Status: Active Member Role Status Dates Dr. Sher Jules MD Primary Care Provider Active Start: March 12, 2025 Naz Cox CDL BULK DRIVER, CDL BULK DRIVER-C Attending Provider Active Start: March 12, 2025 Senior C Developer Relationship Specialty Start Date End Date Sher Jules MD [address] [facility] [place] [place] [address] PCP - General 07/28/08 Trevor Robison MD [address] [facility] [place] [place] [address] Neurology 10/01/22 Barb Suggs, MUSEUM CURATOR.SLOT SUPERVISOR [address] [facility] [place] [address] [employer] 10/05/24 Senior C Developer Relationship Specialty Start Date End Date Sher Jules MD [address] [facility] [place] [address] PCP - General 07/28/08 Trevor Robison MD [address] [facility] [place] [address] Neurology 10/01/22 Barb Suggs, MUSEUM CURATOR.SLOT SUPERVISOR [address] [place] [address] [employer] Internal [facility] 10/05/24 Senior C Developer Relationship Specialty Start Date End Date Sher Jules MD [address] [facility] [place] [address] PCP - General 07/28/08 Trevor Robison MD [address] [facility] [place] [address] Neurology 10/01/22 Barb Suggs, MUSEUM CURATOR.SLOT SUPERVISOR [address] [facility] [place] [address] [employer] Internal [facility] 10/05/24 Senior C Developer Relationship Specialty Start Date End Date Sher Jules MD [address] [facility] [place] [address] PCP - General 07/28/08 Trevor Robison MD [address] [facility] [place] [address] Neurology 10/01/22 Barb Suggs, MUSEUM CURATOR.SLOT SUPERVISOR [address] [facility] [place] [address] [facility] 10/05/24 Team Status: Active Member Role/Relationship Status Dates Dr. Sher Jules MD Primary Care Provider Active Team Status: Inactive Member Role/Relationship Status Dates Dr. Sher Jules MD Primary Care Provider Active Start: February 11, 2025 End: February 11, 2025 Dr. Sher Jules MD Referring Provider Active Start: February 11, 2025 End: February 11, 2025 Dr. Rubio Simeon MD Attending Provider Active Start: February 11, 2025 End: February 11, 2025 Team Status: Inactive Member Role/Relationship Status Dates Dr. Sher Jules MD Primary Care Provider Active Start: March 11, 2025 End: March 11, 2025 Dr. Rubio Simeon MD Attending Provider Active Start: March 11, 2025 End: March 11, 2025 Dr. Rubio Simeon MD Referring Provider Active Start: March 11, 2025 End: March 11, 2025 Team Status: Active Member Role/Relationship Status Dates Dr. Sher Jules MD Primary Care Provider Active Start: March 11, 2025 Dr. Rubio Simeon MD Attending Provider Active Start: March 11, 2025 Team Status: Active Member Role/Relationship Status Dates Dr. Sher Jules MD Primary Care Provider Active Start: March 12, 2025 Naz Cox NP, CDL BULK DRIVER-C Attending Provider Active Start: March 12, 2025 Team Status: Inactive Member Role/Relationship Status Dates Dr. Sher Jules MD Primary Care Provider Active Start: April 29, 2025 End: April 30, 2025 Dr. Rohan Wallace MD Emergency Provider Active Sta rt: April 29, 2025 End: April 30, 2025 Team Status: Active Member Role/Relationship Status Dates Dr. Sher Jules MD Primary Care Provider Active Start: May 06, 2025 Dr. Sher Jules MD Referring Provider Active Start: May 06, 2025 ROSI MuellerC Attending Provider Active Start: May 06, 2025 Team Status: Inactive Member Role/Relationship Status Dates Dr. Sher Jules MD Primary Care Provider Active Start: May 06, 2025 End: May 06, 2025 Dr. Nain Segundo MD Attending Provider Active S tart: May 06, 2025 End: May 06, 2025 Team Status: Inactive Member Role/Relationship Status Dates Dr. Sher Jules MD Primary Care Provider Active Start: May 06, 2025 End: May 06, 2025 Dr. Sher Jules MD Referring Provider Active Start: May 06, 2025 End: May 06, 2025 ROSI MuellerC Attending Provider Active Start: May 06, 2025 End: May 06, 2025 Team Status: Inactive Member Role/Relationship Status Dates Dr. Sher Jules MD Primary Care Provider Active Start: April 29, 2025 End: April 30, 2025 Dr. Rohan Wallace MD Attending Provider Active Sta rt: April 29, 2025 End: April 30, 2025 Dr. Rohan Wallace MD Emergency Provider Active Sta rt: April 29, 2025 End: April 30, 2025 Team Status: Inactive Member Role/Relationship Status Dates Dr. Sher Jules MD Primary Care Provider Active Start: May 07, 2025 End: May 07, 2025 Dr. Sher Jules MD Referring Provider Active Start: May 07, 2025 End: May 07, 2025 Dr. Nic Rodriguez MD Attending Provider Active Start: May 07, 2025 End: May 07, 2025 Goals (unrecognized section and content) Goals may be documented in a n alternate sectionGoals may be documented in an alternate sectionGoals may be documented in an alternate sectionGoals may be documented in an alternate sectionGoals may be documented in an alternate sectionGoals may be documented in an alternate sectionGoals may be documented in an alternate section (unrecognized sect ion and content) No Status Records FoundNo Status Records FoundNo Status Records FoundNo Status Records Found INFORMATION SOURCE (unrecogn ized section and content) DATE CREATED AUTHOR 03/13/2024 [facility] DATE CREATED AUTHOR AUTHOR'S ORGANIZ ATION 01/02/2025 [facility] DATE CREATED AUTHOR AUTHOR'S ORGANIZ ATION 04/23/2025 [facility] DATE CREATED AUTHOR AUTHOR'S ORGANIZ ATION 05/08/2025 [facility] Scheduled Active and Recently Administ ered Medications (unrecognized section and content) Medication Order 09/28/2024 09/29/2024 09/30/2024 aspirin chewable tablet 243 mg (COMPLETED) 243 mg, Oral, Once, On Sat09/30/24 at 1000, For 1 dose, Preprocedure 1013 (Given - Provid er: Madeleine Mathis RN) sodium chloride 0.9% (NS) flush 5-40 mL 5-40 mL, IntraVENous, Every 12 hours, First dose on Sat09/30/24 at 1000, Preprocedure, For Line Patency: Peripheral IV = 5 mL; Midline or Central Line = 10 mL/lumen. If following IV push medication, administer flush at same rate as the IV push. Flush volume is determined by type of infusion therapy being given. For non-viscous solutions use: Peripheral IV = 5 mL Midline or Central Line = 10 mL/lumen For viscous solutions (i.e. blood components, parenteral nutrition, contrast media, or after obtaining blood sample) use: Peripheral IV = 10 mL Midline or Central Line = 20 mL/lumen 1000 (Canceled Entry - Provider: Automatic Discharge Provider - Comment: Automatically canceled at discontinue of medication order) Continuous Medication Order 09/28/2024 09/29/2024 09/30/2024 sodium chloride 0.9 % infusion 100 mL/hr, IntraVENous, Continuous, Starting on Sat09/30/24 at 1245, For 6 hours, Recovery & On Unit 1245 (Canceled Entry - Provider: Automatic Discharge Provider - Comment: Automatically canceled at discontinue of medication order) PRN Medication Order 09/28/2024 09/29/2024 09/30/2024 fentaNYL (Sublimaze) injection (CANCELED) IntraVENous, As needed, Starting on Sat09/30/24 at 1103, Intraprocedure 1103 (Given - Provid er: Ruddy Clark RN) heparin injection (CANCELED) IntraVENous, As needed, Starting on Sat09/30/24 at 1106, Intraprocedure 1106 (Given - Provid er: Ruddy Clark RN)1136 (Given - Provider: Ruddy Clark RN) iopamidol (Isovue-300) 61 % injection (CANCELED) As needed, Starting on Sat09/30/24 at 1219, Intraprocedure 1219 (Given - Provid er: Sergei Collins MD) midazolam (Versed) injection (CANCELED) IntraVENous, As needed, Starting on Sat09/30/24 at 1103, Intraprocedure 1103 (Given - Provid er: Ruddy Clark RN) sodium chloride 0.9 % infusion 5-250 mL/hr, IntraVENous, PRN, if patient receiving piggyback infusions and maintenance fluids are not ordered OR KVO fluids to protect IV site / prevent frequent line interruptions / long duration, Starting on Sat09/30/24 at 0956, Preprocedure, For piggyback infusion, administer at same rate as piggyback for a total of 25 mL. Enter 25 mL into dose field and piggyback rate into rate field of order. If piggyback is infusing at a rate less than 100 mL/hr, enter 25 mL into dose field and 100 mL/hr into rate field of order. For KVO fluids, enter rate of 20 mL/hr or less into rate field of order. sodium chloride 0.9% (NS) flush 5-40 mL 5-40 mL, IntraVENous, PRN, line care, After every IV line use, Starting on Sat09/30/24 at 0956, Preprocedure, For Line Patency: Peripheral IV = 5 mL; Midline or Central Line = 10 mL/lumen. If following IV push medication, administer flush at same rate as the IV push. Flush volume is determined by type of infusion therapy being given. For non-viscous solutions use: Peripheral IV = 5 mL Midline or Central Line = 10 mL/lumen For viscous solutions (i.e. blood components, parenteral nutrition, contrast media, or after obtaining blood sample) use: Peripheral IV = 10 mL Midline or Central Line = 20 mL/lumen FOR RECORDS PERTAINING TO PATIENTS WHO ARE OR HAVE BEEN ENROLLED IN A CHEMICAL DEPENDENCY/SUBSTANCEABUSE PROGRAM, SOME INFORMATION MAY BE OMITTED. This clinical summary was aggregated from multiple sources. Caution should be exercised in using it in the provision of clinical care. This summary normalizes information from multiple sources, and as a consequence, information in this document may materially change the coding, format and clinical context of patient data. In addition, data may be omitted in some cases. CLINICAL DECISIONS SHOULD BE BASED ON THE PRIMARY CLINICAL RECORDS. [employer] provides no warranty or guarantee of the accuracy or completeness of information in this document.
--- OUTSIDE RECORDS SUMMARY | 2025-05-08 06:14 | XMS RPT_ITS | CCD ---
Author Organization [facility] CliniSywi Care Team Providers Care Editor Name Role Phone Jorge A LADD, Sher Pringle Primary Care Provider Dr. Sher Jules Primary Care Provider Dr. Crys Pitt Emergency Provider Dr. Felicity Lieberman Admit Provider Dr. Felicity Lieberman Attending Provider Dr. Felicity Lieberman Other Provider Dr. Nain Segudno Attending Provider Sher Jules MD Primary Care Provider Jorge A LADD, Sher Pringle Primary Care Provider Enriqueta LADD, Trevor Unavailable Enriqueta LADD, Trevor Unavailable Dr. Sher Jules Primary Care Provider Dr. Kvng Jacobson Emergency Provider Dr. Rubio Simeon Attending Provider Dr. Rubio Simeon Referring Provider Dr. Getea Mendoza Attending Provider Dr. Karl Wan Attending [...] Unavailable Sher Jules Primary Care Provider Maximo BENCH HAND MACHINEJUAN, Barb Ley Unavailable SERGEI COLLINS Attending Unavailable [...] Provider Rodrigo LADD, Dr. Madrigal Emergency Provider Jose A CITY ADMINISTRATOR-CJordana Attending Provider [phone] Sanya LADD, Dr. [...] Primary Care Unavailable Naz Cox Attending Unavailable Julse, Sher Primary Care Unavailable Jules, Sher Primary Care Unavailable Naz Cox Referring Unavailable Naz Cox Consulting Unavailable Nain Segundo Attending Unavailable Blanco, Rubio Referring Unavailable Blanco, Rubio Attending Unavailable Jules, Sher Primary Care Unavailable Blanco, Rubio Referring Unavailable Blanco, Rubio Attending Unavailable Jules, Sher Primary Care Unavailable Roof CITY ADMINISTRATOR, Tootie H Attending Unavailable Roof CITY ADMINISTRATOR, Tootie H Referring Unavailable Jules, Sher Primary [...] Care Unavailable Kenny, Naz Attending Unavailable Blanco, Rubio Attending Unavailable Jules, [...] on above: Take 1 capsule by mo [facility] daily at bedtime for 180 days. hydrALAZINE [...] 12 hours. Take 2 tablets by mo [facility] every 12 hours. Multivitamin With Folic Acid [...] Coronary atherosclerosis; Translations: [Atherosclerotic heart disease of hamilton coronary artery without angina pectoris] Onset: 05-06-2023 [...] Long-term current use of drug therapy; Translations: [group home (current) use of antithrombotics/antip latelets] 04-30-2025 Episodic [...] X 22 and 2.5 X 1 2 [place] LISANDRO to distal RCA (01/29/24); drug-eluting stent [...] Report on 05-07-2025 Plastic Surgery Visit Report [facility] Plastic Reconstructive Surgery [address], [address] [place] [address] OFFICE VISIT Date of Service: 05/07/25 MR#: [id number] Acct: [id number] Name: MARIE HUTSON Rep #: [id number] : 1950 Provider: Dr. 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 injury 04/29/25. 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 Normal [facility] Hand Min 3 Viewson 5 Hand Min 3 Views [facility] Imaging Services [address] [place], [place] [address] Hand Min 3 Views MR#: [id number] Acct: [id number] Name: MARIE HUTSON Rep #: [id number] : 1950 M 75 From: Arslan beasley MD PCP: Dr. Sher Jules MD Status: DEP AMB Study: Hand Min 3 Views Date of Exam: 05/06/25 Exam# [id number] Ordering Dr: Jordana Naranjo CITY ADMINISTRATOR-Getachew PROCEDURE: HAND MIN 3 VIEWS 05/06/2025 REASON [...] metacarpal bone. Follow-up is advised Reading [facility] CC: TANIYA Naranjo; Dr. 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 Part of today???s visit was [...] of the hand. He was seen in [facility] ER after the fall because he needed stitches in the head but the hand was not bothering him then so he didn't have it checked. He states the hand did not start bothering him until the next day when he started to notice some swelling and bruising. Patient is LHD. 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 He denies [...] cough, De (more content not included)... 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 Normal [facility] Brain/Head without Contrasto n 04-29-2025 Brain/Head without Contrast [facility] Imaging Services [address] [place] [address] Brain/Head without Contrast MR#: [id number] Acct: [id number] Name: MARIE HUTSON Rep #: [id number] : 1950 M 75 From: Kirill Sifuentes MD PCP: Dr. Sher Jules MD Status: REG ER Study: Brain/Head without Contrast Date of Exam: 01/19 Exam# [id number] Ordering Dr: Rohan Wallace MD PROCEDURE: BRAIN/HEAD [...] IMPRESSION: No acute intracranial finding Reading Location: [place] [address] CC: Dr. Rohan Wallace MD; Dr. Sher Jules MD Seat Mender: Signed Normal [facility] CNOVon 04-22-2025 CNOV Office Visit (GENSWS ) MARIE HUTSON ([id number]) 1950 M Date Time Provider Department 04/22/25 10:30 AM ELVIE MONTERROSO During your visit today, we recorded the following information about you: Elvie Monterroso APRN.CNP 04/22/2025 10:56 AM Signed FOLLOW UP VISIT - ENDOSCOPY Marie Hutson 1950 [id number] REFERRING PHYSICIAN: Nikos Rivera [address] [facility] [address] Marie Hutson is a patient I am [...] needed for worsening/no improvement. ____ Elvie Monterroso APRN.ARCHEOLOGY PROFESSOR Referring Provider: NIKOS RIVERA [[id number]] Allergies As of Date: 04/22/2025 (No Known Allergies) Date Reviewed: 04/22/2025 Reviewed by: Elvie Monterroso APRN.ARCHEOLOGY PROFESSOR - Fully Assessed Reason for Visit: Follow [...] EC tablet (more content not included)... Normal [facility] [id number] 04-14-2025 [id number] HNO ID: [id number] Author: NURIS MEEK RN Service: ? Author Type: Registered Nurse Type: [id number] Filed: 04/14/2025 09:21 Note Text: The patient received a copy of Colonoscopy and EGD discharge instructions that contain information for how to contact the physician who performed the procedure and when to seek medical care. Normal [facility] Colonoscopyon 04-14-2025 Colonoscopy [place] [facility] Gastrointestinal Endoscopy Patient Name: Marie Hutson Procedure [...] current guidelines. Procedure Code(s): --- Professional --- 65967, Colonoscopy, flexible; with biopsy, single or multiple G0500, Moderate sedation services provided by the same physician or other qualified health medicare sales executive performing a gastrointestinal endoscopic service that sedation supports, requiring the presence of an independent trained observer to assist in the monitoring of the patient's level of consciousness and physiological status; initial 15 minutes of intra-service time; patient age 5 years or older (additional time may be reported with 15869, as appropriate) 95272, Moderate sedation; each additional 15 minutes intraservice ti (more content not included)... Normal [facility] Colonoscopy Study observatio non 04-14-2025 [facility] Gastrointestinal Endoscopy Patient Name: Marie Hutson [...] patient to (more content not included)... 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 [facility] GLUCOSE, BLOOD (POC)on 04-14 Glucose [Mass/Vol] 116 mg/dL Abnormal 74 - 99 mg/dL [facility] Comment on above: Location:[facility], [address] [facility] [address] [facility] [address], [place], [place], [address] The Accu-Chek Inform II glucose meter has [...] Interpretation and review of laboratory results Abnormal [facility] HISTORY PHYSICALon HISTORY PHYSICAL HNO ID: [id number] Author: NIKOS RIVERA MD Service: General Surgery Author Type: Physician Type: H&P Filed: 04/14/2025 07:29 Note Text: HISTORY AND PHYSICAL Marie Hutson : 1950 REFERRING PHYSICIAN: Barb Suggs [address] [place] [address] CHIEF COMPLAINT: Patient presents with: Consult: For [...] ulcers/ peptic ulcer disease. Marie follows with [facility] for hx of CABG x 3 (2012), CAD with 2 stents in 09/2024. On plavix. Last OV 01/2025. He denies CP, SOB, dizziness, palpitations, syncope, edema, recent hospitalizations Other medical history is significant for T2DM and osteoarthritis. Marie has undergone prior endoscopy. Last colonoscopy was 11/[address] Rivera at [facility]. 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 Normal [facility] No Panel Informationon 04-14 Radiology Study observation (narrative) [facility]ad [facility] Pathology biopsy report Kojo (Tiss)on 04-14-2025 AP DISCLAIMER Normal [facility] Comment on above: Order Comment: Mariza gomes Type: BLOOD SPECIMEN Ordering Facility: [facility] Address: [address] [place] [address] Result Comment: Mary garcia Developed Test (LDT) Disclaimer: Performance characteristics of immunohistochemical, immunofluorescent, and chromogenic in-situ hybridization tests have been determined by the performing laboratory within [facility]'s [facility] Pathology and Laboratory Medicine Department ([facility], [facility], [facility], [facility], [facility], [facility], or [facility]) in a manner consistent with CLIA [...] appropriately. Performed By: #### 5 8410-2 #### [facility] CLIA [id number] [address] [place] [address] [place] CASE REPORT Normal [facility] Comment on above: Order Comment: Mariza gomes Type: BLOOD SPECIMEN Ordering Facility: [facility] Address: [address] [place] [address] Result Comment: Surg [facility] Pathology Report Case: [id number] Authorizing Provider: Nikos Rivera MD Collected: 04/14/2025 08:28 AM Ordering Location: Ambulatory Surgery Received: 04/14/2025 12:31 PM Pathologist: Judith Clemente MD Specimens: A) - Stomach, Antrum, Biopsy, Antral bx for h/h B) - Esophagus, Distal, Biopsy, for inflammation C) - Colon, Cecum, Polyp, Cecal x 2 polyps Performed By: #### 5 8410-2 #### [facility] CLIA [id number] [address] [place] [address] [place] FINAL DIAGNOSIS Normal [facility] Comment on above: Order Comment: Mariza gomes Type: BLOOD SPECIMEN Ordering Facility: [facility] Address: [address] [place] [address] Result Comment: A. S tomach, antrum, biopsy: [...] EDT Performed By: #### 5 8410-2 #### [facility] CLIA [id number] [address] [place] [address] [place] FINAL PERFORMING LAB Normal [facility] Comment on above: Order Comment: Speci men Type: BLOOD SPECIMEN Ordering Facility: [facility] Address: [address] [place] [address] Result Comment: Diag nostic interpretation performed at: [facility], [address] [place] [address] CLIA# [id number] Bag Loader Machine Operator: Modesto Vargas MD Performed By: #### 5 8410-2 #### [facility] CLIA [id number] [address] [place] [address] GROSS DESCRIPTION Normal [facility] Comment on above: Order Comment: Speci men Type: BLOOD SPECIMEN Ordering Facility: [facility] Address: [address] [place] [address] Result Comment: A. S tomach, Antrum, Biopsy [...] 0.3 cm. Totally submitted in one cassette. 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 Procedure Code(s): --- Professional --- 93404, Esophagogastroduodenosc opy, flexible, transoral; with biopsy, single or multiple G0500, Moderate sedation services provided by the same physician or other qualified health medicare sales executive performing a gastrointestinal endoscopic service that sedation supports, requiring the presence of an independent trained observer to assist in the monitoring of the p (more content not included)... Normal 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 (more content not included)... Normal [facility] PVR ANK/EASTMAN/TOE NOHEMY VAS LAB on 04-06-2025 PVR ANK/EASTMAN/TOE NOHEMY [facility]AS LAB Non-Invasive Vascular Laboratory [facility] Lower Extremity Arterial Physiology Study Bilateral/Complete Date [...] disease at rest. Technologist: Evi Hernandes RVT [facility] Ordering physician: NARGIS YIN Interpreting physician: Dov Og MD, ABDELRAHMAN Final CC [facility] [facility] Image : [id number] SUID See Link below for Image Normal [facility] Electrolytes 1998 panelon Anion gap [Moles/Vol] 9 mmol/L Normal 8-15 [facility] Comment on above: Order Comment: Speci men Type: BLOOD SPECIMENOrdering Facility: [facility] Address: [address] [place] [address] Performed By: #### 2 4326-1 ####[facility] [id number] [place] [address] [place] Chloride [Moles/Vol] 96 mmol/L Low 98-107 [facility] Comment on above: Order Comment: Speci men Type: BLOOD SPECIMENOrdering Facility: [facility] Address: [address] [place] [address] Performed By: #### 2 4326-1 ####[facility] [id number] [place] [id number] [place] CO2 [Moles/Vol] 25 mmol/L Normal 22-[address] [facility] Comment on above: Order Comment: Speci men Type: BLOOD SPECIMENOrdering Facility: [facility] Address: [address] [place] [address] Performed By: #### 2 4326-1 ####[facility] [id number] [place] [address] [place] Potassium [Moles/Vol] 4.5 mmol/L Normal 3.7-5.1 [facility] Comment on above: Order Comment: Speci men Type: BLOOD SPECIMENOrdering Facility: [facility] Address: [address] [place] [address] Performed By: #### 2 4326-1 ####[facility]IA [id number] [place] [address] [place] Sodium [Moles/Vol] 130 mmol/L Low 136-144 [facility] Comment on above: Order Comment: Speci men Type: BLOOD SPECIMENOrdering Facility: [facility] Address: [address] [place] [address] Performed By: #### 2 4326-1 ####[facility]IA [id number] [place] [id number] [place] CNOVon 03-18-2025 CNOV Office Visit ([facility] ) MARIE HUTSON ([id number]) 1950 M Date Time Provider Department 03/18/25 9:30 AM ELVIE MONTERROSO During your visit today, we recorded the following information about you: Pulse Respiration Blood pressure Weight 62/minute 14/minute 128/62 86.8 kg Elvie Monterroso APRN.CNP 03/18/2025 10:06 AM Signed HISTORY AND PHYSICAL Marie Hutson : 1950 REFERRING PHYSICIAN: Barb Suggs [address] [facility] [address] CHIEF COMPLAINT: Patient presents with: Consult: For [...] ulcers/ peptic ulcer disease. Marie follows with [facility] for hx of CABG x 3 (2012), CAD with 2 stents in 09/2024. On plavix. Last OV 01/2025. He denies CP, SOB, dizziness, palpitations, syncope, edema, recent hospitalizations Other medical history is significant for T2DM and osteoarthritis. Marie has undergone prior endoscopy. Last colonoscopy was 11/[address] Rivera at [facility]. 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 Normal [facility] Hemoccult Stl Ql IAon 2024 Lower GI hemoglobin IA Ql (Stl) Negative Normal Negative [facility] Comment on above: Order Comment: Speci men Type: STOOL SPECIMENOrdering Facility: [facility] Address: [address] [place] [address] Performed By: #### 2 9771-3 ####[facility] [id number] [address] STATES OF [facility] CNOVon 03-16-2025 CNOV Office Visit (INTMWS ) MARIE HUTSON ([id number]) 1950 Av Date Time Provider Department 03/16/25 10:00 AM BARB SUGGS INTMWS During your visit today, we recorded the following information about you: Pulse Respiration Blood pressure Weight 60/minute 14/minute 130/74 86.3 kg Height 1.75 m Barb Suggs, BENCH HAND MACHINE.ARCHEOLOGY PROFESSOR 03/16/2025 10:47 AM Signed Marie Davis Caryl [...] PCP - General Barb Suggs APRN.HAYDEN as Infrastructure Solutions Architect (Internal Medicine) [facility] (Neurology) Blanco LADD (Cardiology) Nargis Yin MD Vascular-[facility] Gomez Schwab DPM, Podiatry-[facility] Hourly Caregiver-Hugh Delacruz/Dr. Edward Adams Commissary Manager- Christian Merritt Medical/Family history review Reviewed and [...] also discussed with the patient: Recording using [employer] software for draft documentation of the visit was discussed with the patient/authorized credit representative; all questions welcomed and answered. Patient/authorized credit representative agreed to proceed Marie is a [...] He recently had two stents placed in [place] and is currently on Plavix, which he [...] Wt 86 (more content not included)... Normal [facility] Ferritin SerPl-mCncon 2024 Ferritin [Mass/Vol] 198.0 ng/mL Normal 30.3-565.7 [facility] Comment on above: Order Comment: Speci men Type: BLOOD SPECIMEN Ordering Facility: [facility] Address: [address] [place] [address] Performed By: #### 5 8410-2 #### [facility] CLIA [id number] [address] [place] [address] [place] Folate SerPl-ncon 03-16-20 Folate [Mass/Vol] ng/mL Normal >4.7 [facility] Comment on above: Order Comment: Speci men Type: BLOOD SPECIMEN Ordering Facility: [facility] Address: [address] [place] [address] Result Comment: A re sult of > 20 ng/mL is not necessarily indicative of a pathologic or treatable condition: it reflects a limitation of the test methodology. Assay reference range: 4.8 to 24.2 ng/mL. Suitable for detection of folate deficiency. Reference: Folate III (Folate III) [package insert V 1.0 Uzbek]. [facility], [place], [place]: August 2015. Performed By: #### 5 8410-2 #### [facility] CLIA [id number] [address] [place] [address] [place] Iron and Iron binding capaci panel 03-16-2025 Iron [Mass/Vol] 44 ug/dL Normal 41-[address] [facility] Comment on above: Order Comment: Speci men Type: BLOOD SPECIMEN Ordering Facility: [facility] Address: [address] [place] [address] Performed By: #### 5 8410-2 #### [facility] CLIA [id number] [address] [place] [address] [place] Iron binding capacity [Mass/Vol] 273 ug/dL Normal 232-[address] [facility] Comment on above: Order Comment: Speci men Type: BLOOD SPECIMEN Ordering Facility: [facility] Address: [address] [place] [address] Performed By: #### 5 8410-2 #### [facility] CLIA [id number] [address] [place] [address] [place] Iron/TIBC [Molar ratio] 16.1 % Normal 15.0-57.0 [facility] Comment on above: Order Comment: Speci men Type: BLOOD SPECIMEN Ordering Facility: [facility] Address: [address] [place] [address] Performed By: #### 5 8410-2 #### [facility] CLIA [id number] [address] [place] [address] [place] Osmolality SerPlon Osmolality [Osmolality] 276 mosm/kg Normal 275-[address] [facility] Comment on above: Order Comment: Speci men Type: BLOOD SPECIMENOrdering Facility: [facility] Address: [address] [place] [address] Performed By: #### 2 692-2 ####[facility] [id number] [address] [place] Osmolality Uron 03-16-2025 Osmolality (U) [Osmolality] 313 mosm/kg Normal 50-[address] [facility] Comment on above: Order Comment: Speci men Type: BLOOD SPECIMEN Ordering Facility: [facility] Address: [address] [place] [address] Performed By: #### 5 8410-2 #### [facility] CLIA [id number] [address] [place] [address] [place] Sodium ?Tm Ur-sCncon 025 Sodium Unsp time (U) [Moles/Vol] 40 mmol/L Normal 14-[address] [facility] Comment on above: Order Comment: Speci men Type: URINE SPECIMEN Ordering Facility: [facility] Address: [address] [place] [address] Performed By: #### 3 5678-2 #### [facility] CLIA [id number] [address] [place] [address] [place] Vit B12 SerPl-mCncon 025 Cobalamin (Vitamin B12) [Mass/Vol] 555 pg/mL Normal 232-[address] [facility] Comment on above: Order Comment: Speci men Type: BLOOD SPECIMEN Ordering Facility: [facility] Address: [address] [place] [address] Performed By: #### 5 8410-2 #### [facility] CLIA [id number] [address] [place] [address] [place] [address] [place] XR HAND 3V [...] bilaterally. IMPRESSION: Bilateral hand osteoarthritis. No erosions. Seat Mender: PSCB Transcribe Date/Time: Mar 20 2025 2:18P Dictated by : DREAD CORONA MD This examination was interpreted and the report reviewed and electronically signed by: DREAD CORONA MD on Mar 20 2025 2:20PM EST [id number] Normal [facility] Basic metabolic 2000 panelon 03-15-2025 Anion gap [Moles/Vol] 12 mmol/L Normal 8-15 [facility] Comment on above: Order Comment: Speci men Type: BLOOD SPECIMEN Ordering Facility: [facility] Address: [address] [place] [address] Performed By: #### 5 8410-2 #### [facility] CLIA [id number] [address] [place] [address] [place] Calcium [Mass/Vol] 9.7 mg/dL Normal 8.5-10.2 [facility] Comment on above: Order Comment: Speci men Type: BLOOD SPECIMEN Ordering Facility: [facility] Address: [address] [place] [address] Performed By: #### 5 8410-2 #### [facility] CLIA [id number] [address] [place] [address] [place] Chloride [Moles/Vol] 93 mmol/L Low 98-107 [facility] Comment on above: Order Comment: Speci men Type: BLOOD SPECIMEN Ordering Facility: [facility] Address: [address] [place] [address] Performed By: #### 5 8410-2 #### [facility] CLIA [id number] [address] [place] [address] [place] CO2 [Moles/Vol] 21 mmol/L Low 22-[address] [facility] Comment on above: Order Comment: Speci men Type: BLOOD SPECIMEN Ordering Facility: [facility] Address: [address] [place] [address] Performed By: #### 5 8410-2 #### [facility] CLIA [id number] [address] [place] [address] [place] Creatinine [Mass/Vol] 0.56 mg/dL Low 0.73-1.22 [facility] Comment on above: Order Comment: Speci men Type: BLOOD SPECIMEN Ordering Facility: [facility] Address: [address] [place] [address] Performed By: #### 5 8410-2 #### [facility] CLIA [id number] [address] [place] [address] [place] Creatinine and Glomerular filtration rate.predicted panel (S/P/Bld) 104 mL/min/1.73m??? Normal >=[address] [facility] Comment on above: Order Comment: Mariza gomes Type: BLOOD SPECIMEN Ordering Facility: [facility] Address: [address] [place] [address] Result Comment: Ingrid mated Glomerular Filtration Rate [...] GFR. Performed By: #### 5 8410-2 #### [facility] CLIA [id number] [address] [place] [address] [place] Glucose [Mass/Vol] 90 mg/dL Normal 74-99 [facility] Comment on above: Order Comment: Mariza gomes Type: BLOOD SPECIMEN Ordering Facility: [facility] Address: [address] [place] [address] Result Comment: The [place] Diabetes Association (ADA) provides guidance for cutoff [...] Standards of Medical Care in Diabetes 2016, Swedish Diabetes Association. Diabetes Care. 2016.39(Suppl 1). Performed By: #### 5 8410-2 #### [facility] CLIA [id number] [address] [place] [address] [place] Potassium [Moles/Vol] 4.4 mmol/L Normal 3.7-5.1 [facility] Comment on above: Order Comment: Speci men Type: BLOOD SPECIMEN Ordering Facility: [facility] Address: [address] [place] [address] Performed By: #### 5 8410-2 #### [facility] CLIA [id number] [address] [place] [address] [place] Sodium [Moles/Vol] 126 mmol/L Low 136-144 [facility] Comment on above: Order Comment: Speci men Type: BLOOD SPECIMEN Ordering Facility: [facility] Address: [address] [place] [address] Performed By: #### 5 8410-2 #### [facility] CLIA [id number] [address] [place] [address] [place] Urea nitrogen [Mass/Vol] 9 mg/dL Normal 9-[address] [facility] Comment on above: Order Comment: Speci men Type: BLOOD SPECIMEN Ordering Facility: [facility] Address: [address] [place] [address] Performed By: #### 5 8410-2 #### [facility] CLIA [id number] [address] [place] [address] [place] CBC panel Auto (Bld)on 03-15 Erythrocyte distribution width (RBC) [Ratio] 11.8 % Normal 11.5-15.[address] [facility] Comment on above: Order Comment: Speci men Type: BLOOD SPECIMEN Ordering Facility: [facility] Address: [address] [place] [address] Performed By: #### 5 8410-2 #### [facility] CLIA [id number] [address] [place] [address] [place] Hematocrit (Bld) [Volume fraction] 29.8 % Low 39.0-51.[address] [facility] Comment on above: Order Comment: Speci men Type: BLOOD SPECIMEN Ordering Facility: [facility] Address: [address] [place] [address] Performed By: #### 5 8410-2 #### [facility] CLIA [id number] [address] [place] [address] [place] Hemoglobin (Bld) [Mass/Vol] 10.6 g/dL Low 13.0-17.[address] [facility] Comment on above: Order Comment: Speci men Type: BLOOD SPECIMEN Ordering Facility: [facility] Address: [address] [place] [address] Performed By: #### 5 8410-2 #### [facility] CLIA [id number] [address] [place] [address] [place] MCH (RBC) [Entitic mass] 34.8 pg High 26.0-34.[address] [facility] Comment on above: Order Comment: Speci men Type: BLOOD SPECIMEN Ordering Facility: [facility] Address: [address] [place] [address] Performed By: #### 5 8410-2 #### [facility] CLIA [id number] [address] [place] [address] [place] MCHC (RBC) [Mass/Vol] 35.6 g/dL Normal 30.5-36.0 [facility] Comment on above: Order Comment: Speci men Type: BLOOD SPECIMEN Ordering Facility: [facility] Address: [address] [place] [address] Performed By: #### 5 8410-2 #### [facility] CLIA [id number] [address] [place] [address] [place] MCV (RBC) [Entitic vol] 97.7 fL Normal 80.0-100.0 [facility] Comment on above: Order Comment: Speci men Type: BLOOD SPECIMEN Ordering Facility: [facility] Address: [address] [place] [address] Performed By: #### 5 8410-2 #### [facility] CLIA [id number] [address] [place] [address] [place] Nucleated RBC (Bld) [#/Vol] 10*3/uL Normal <0.[address] [facility] Comment on above: Order Comment: Speci men Type: BLOOD SPECIMEN Ordering Facility: [facility] Address: [address] [place] [address] Performed By: #### 5 8410-2 #### [facility] CLIA [id number] [address] [place] [address] [place] Platelet mean volume (Bld) [Entitic vol] 9.1 fL Normal 9.0-12.[address] [facility] Comment on above: Order Comment: Speci men Type: BLOOD SPECIMEN Ordering Facility: [facility] Address: [address] [place] [address] Performed By: #### 5 8410-2 #### [facility] CLIA [id number] [address] [place] [address] [place] Platelets (Bld) [#/Vol] 319 10*3/uL Normal 150-[address] [facility] Comment on above: Order Comment: Speci men Type: BLOOD SPECIMEN Ordering Facility: [facility] Address: [address] [place] [address] Performed By: #### 5 8410-2 #### [facility] CLIA [id number] [address] [place] [address] [place] RBC (Bld) [#/Vol] 3.05 10*6/uL Low 4.20-6.00 [facility] Comment on above: Order Comment: Speci men Type: BLOOD SPECIMEN Ordering Facility: [facility] Address: [address] [place] [address] Performed By: #### 5 8410-2 #### [facility] CLIA [id number] [address] [place] [address] [place] WBC (Bld) [#/Vol] 10.98 10*3/uL Normal 3.70-11.00 [facility] Comment on above: Order Comment: Mariza gomes Type: BLOOD SPECIMEN Ordering Facility: [facility] Address: [address] [place] [address] Performed By: #### 5 8410-2 #### [facility] CLIA [id number] [address] [place] [address] [place] HbA1c (Bld)on 03-15-2025 Average glucose Estimated from glycated hemoglobin (Bld) [Mass/Vol] 103 mg/dL Normal [facility] Comment on above: Order Comment: Mariza gomes Type: BLOOD SPECIMENOrdering Facility: [facility] Address: [address] [place] [address] Result Comment: eAG: (Estimated average glucose) is a calculated value from HgbA1c and is credit representative of the average blood glucose level in the last 2-3 month period. Performed By: #### 5 5454-3 ####[facility] [id number] [place] [address] [place] HbA1c (Bld) [Mass fraction] 5.2 % Normal 4.3-5.[address] [facility] Comment on above: Order Comment: Mariza gomes Type: BLOOD SPECIMENOrdering Facility: [facility] Address: [address] [place] [address] Result Comment: Amer ican Diabetes Association guidelines indicate that patients with HgbA1c in the range 5.7-6.4% are at increased risk for development of diabetes, and intervention by lifestyle modification may be beneficial. HgbA1c greater or equal to 6.5% is considered diagnostic of diabetes. Performed By: #### 5 5454-3 ####[facility] [id number] [place] [id number] [place] Echo Completeon 03-11-2025 Echo Complete [facility] [address] [place] [address] Echo Complete 03/11/25 1008 MR#: [id number] Acct: [id number] Name: MARIE HUTSON Rep #: [id number] : 1950 75 From: Rubio Simeon MD Attending Dr: Dr. Rubio Simeon MD Status: REG I Ordering Dr: Rubio Simeon MD Date: 03/11/25 Location: [facility] Sex: M C Admitted: Reason For Study [...] Dictated: 03/11/25 1008 Date Transcribed: 03/11/25 1210 Seat Mender: Signed Normal [facility] Echocardiogram study reportO rdered By: Rubio Simeon on 03-11-2025 Study report [facility] [address] [place] [address] Echo Complete 03/11/25 1008 MR#: [id number] Acct: [id number] Name: MARIE HUTSON Rep #:[id number] : [...] Sher Jules M.D. Performed By: Rupa Ramires, [facility] 03/11/25 1210 Date _ Rubio Simeon MD CC: Dr. Rubio Simeon MD; Dr. Sher Jules MD ~ Date Dictated: 03/11/25 1008 Date Transcribed: 03/11/25 1210 Seat Mender: Signed [facility] Work Phone: [facility] 02-23-2025 CNOV Office Visit (PODIWS ) MARIE HUTSON ([id number]) 1950 M Date Time Provider Department 02/23/25 [...] (or decreased sensation in your feet) a dialer should always cut your toenails. Be Careful [...] Go to your health care provider or dialer to treat these conditions. Continue to check [...] is s (more content not included)... Normal [facility] Cardiology Visit Reporton Cardiology Visit Report [facility] [address] [place] [address] OFFICE VISIT Date of Service: 02/11/25 MR#: [id number] Acct: [id number] Name: MARIE HUTSON Rep #: [id number] : 1950 Provider: Dr. 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 Follow up Appointments NONE Called patient and identified role and reason for call. Patient stated that he is doing good, and his follow ups are now with [facility]. He denies any concerns at this time. We inquired about any shortness of breath or pain, he denies. He refers taking all his medication as prescribed and denies need for refills. We also encouraged patient to reach out in case of any concern. 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 Follow up Appointments NONE Called patient and call was dropped, we did a second attempt and was unsuccessful. Unable to leave a voice message. Outreach scheduled Normal [facility] CNOVon 11-19-2024 CNOV Office Visit (PODIWS ) MARIE HUTSON ([id number]) 1950 M Date Time Provider Department 11/19/24 [...] (or decreased sensation in your feet) a dialer should always cut your toenails. Be Careful [...] Go to your health care provider or dialer to treat these conditions. Gomez Schwab 11/19/2024 [...] Objective: Patien (more content not included)... Normal [facility] CNOVon 11-13-2024 CNOV Office Visit (INTMWS ) MARIE HUTSON ([id number]) 1950 M Date Time Provider Department 11/13/24 1:20 PM SHER JULES INTMWS During your visit today, we recorded the following information about you: Pulse Respiration Blood pressure Weight 60/minute 16/minute 132/62 87 kg Sher Jules MD 11/13/2024 1:56 PM Signed This note was created using [employer]. Subjective Marie Hutson is a 74 year [...] Mixed Sleep Apnea Coronary Artery Disease Involving [place] Coronary Artery of [place] Heart Without Angina Pectoris Obesity, Class I, [...] MA - (more content not included)... Normal [facility] Progress Noteon 11-03-2024 Progress Note 11/03/24 [...] clarify? No (Patient receiving his care from [facility]) EMR reviewed. Patient on BPCI Advanced: OP Patients Qualify for Cardiac Care and Cardiac Procedures from [facility] report 10/01/2024. EMR reviewed. Patient enrolled in [facility] 90-day BPCI Program post-hospital discharge 09/30/24 Dx: PCI with IVL, LISANDRO to Left Main->Ramus Right radial artery used. Patient has a past medical history of DM with neuropathy, HTN, HLD, family history of premature CAD, prior tobacco use (quit), ocular TIA. He had a CABG in 2012. 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 WRIGHT to LAD was patent. At that time distal RCA was stented. He also had a severely stenotic calcified distal left main and ostial ramus. 30-day BPCI outreach made spoke with patient whom reports doing well following with [facility] for his care and denies any health concerns or questions at this time. Patient agreeable to future outreaches to complete BPCI program. Normal [facility] CR - History AND Physicalon 10-20-2024 CR - History & Physical [facility] [address] [place] [address] CR - History Physical MR#: [id number] Acct: [id number] Name: MARIE HUTSON Rep #: [id number] : 1950 74 From: Curtis Newell BS, [...] Negative Advanced Directives Advanced Directives Power of Sales Performance Analyst: No Living Will: No Advance Directives Information [...] Essential (primary) hypertension Atherosclerotic heart disease of [place] coronary artery without angina pectoris Diabetes mellitus, [...] For S (more content not included)... Normal [facility] Progress Noteon 10-15-2024 Progress Note 10/15/24 [...] for Cardiac Care and Cardiac Procedures from [facility] report 10/01/2024. EMR reviewed. Patient enrolled in [facility] 90-day BPCI Program post-hospital discharge 09/30/24 Dx: PCI with IVL, LISANDRO to Left Main->Ramus Right radial artery used. Patient has a past medical history of DM with neuropathy, HTN, HLD, family history of premature CAD, prior tobacco use (quit), ocular TIA. He had a CABG in 2012. 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 WRIGHT to LAD was patent. At that time distal RCA was stented. He also had a severely stenotic calcified distal left main and ostial ramus. 14-day BPCI outreach made spoke with patient introduced self and role patient reports doing well feeling good post PCI procedure denies health concerns or questions encouraged patient to reach out with any concerns. Future outreach scheduled. [facility] Carotid Duplex Ultrasoundon 10-14-2024 Carotid Duplex Ultrasound [facility] [address] [place] [address] Carotid Duplex Ultrasound 10/14/24 0951 MR#: [id number] Acct: [id number] Name: MARIE HUTSON Rep #: [id number] : 1950 74 From: Karl Wan MD Attending Dr: Dr. Rubio Simeon MD Status: REG CLI Ordering Dr: Rubio Simeon MD Date: 10/14/24 Location: [facility] Sex: M C Admitted: Reason For Study: [...] the left vertebral artery. Procedure Carotid Duplex 34262. This is a Carotid Duplex examination using [...] Date Dictated: 10/14/24 0951 Date Transcribed: 10/15/24722 Seat Mender: Signed Normal [facility] Renal Artery Duplex Ultrasou ndon 10-14-2024 [facility] [address] [place] [address] Renal Artery Duplex Ultrasound 10/14/24 0846 MR#: [id number] Acct: [id number] Name: MARIE HUTSON Rep #: [id number] : 1950 74 From: Karl Wan MD [...] Date Dictated: 10/14/24 0846 Date Transcribed: 10/15/2425 Seat Mender: Signed Normal [facility] Cardiology Visit Reporton Cardiology Visit Report [facility] [address] [place] [address] OFFICE VISIT Date of Service: 10/12/24 MR#: [id number] Acct: [id number] Name: MARIE HUTSON Rep #: [id number] : 1950 Provider: TANIYA moise Age/Sex: 74/M Location: [facility] Status: Signed HPI HPI History of Present Illness Details: This gentleman with history of coronary artery disease status post CABG and status post drug-eluting stent to the distal RCA. He underwent coronary angiography CT scan in June 2024 that showed severely diseased distal left main disease. He was seen at [facility] with Dr. Collins for continual chest discomfort [...] Intake Visit Reasons: S/P [facility] 09/30 (SCANNED) Director Equipment Required: No Accompanied by: Self Is patient [...] a medication list, states nothing has changed [facility] Medical History CAD (coronary artery disease) Diabetes Dyslipidemia Hypertension Type 2 diabetes mellitus without complications Peripheral vascular disease, unspecified Essential (primary) hypertension Atherosclerotic heart disease of [place] coronary artery without angina pectoris Diabetes mellitus, [...] nighttime urinat (more content not included)... Normal [facility] Comprehensive Metabolic Prof ilon 10-12-2024 Albumin [Mass/Vol] 3.6 g/dL Normal 3.2-5.0 [facility] Comment on above: Order Comment: Low S odium Performed By: #### L 500.4050 ####[facility] [address] [place], [address] Albumin/Globulin [Mass ratio] 1.1 {ratio} Normal 0.9-2.4 [facility] Comment on above: Order Comment: Low S odium Performed By: #### L 500.4050 ####[facility] [address] [place], [address] ALK P 76 U/L Normal 45-117 [facility] Comment on above: Order Comment: Low S odium Performed By: #### L 500.4050 ####[facility] [address] [place], [address] ALT [Catalytic activity/Vol] 31 U/L Normal 16-61 [facility] Comment on above: Order Comment: Low S odium Performed By: #### L 500.4050 ####[facility] [address] [place], [address] AST [Catalytic activity/Vol] 23 U/L Normal 15-37 [facility] Comment on above: Order Comment: Low S odium Performed By: #### L 500.4050 ####[facility] [address] [place], [address] Bilirubin [Mass/Vol] 1.30 mg/dL High 0.20-1.00 [facility] Comment on above: Order Comment: Low S odium Result Comment: For patients on eltrombopag therapy, use of Dimension [place] TBIL is not recommended. Performed By: #### L 500.4050 ####[facility] [address] [place], [address] BUN/CRE 14.0 RATIO Normal 10-20 [facility] Comment on above: Order Comment: Low S odium Performed By: #### L 500.4050 ####[facility] [address] [place], [address] CA,Total 9.6 mg/dL Normal 8.5-10.1 [facility] Comment on above: Order Comment: Low S odium Performed By: #### L 500.4050 ####[facility] [address] [place], [address] Chloride [Moles/Vol] 95 mmol/L Low 98-107 [facility] Comment on above: Order Comment: Low S odium Performed By: #### L 500.4050 ####[facility] [address] [place], [address] CO2 [Moles/Vol] 29.0 mmol/L Normal 21.0-32.0 [facility] Comment on above: Order Comment: Low S odium Performed By: #### L 500.4050 ####[facility] [address] [place], [address] Creatinine [Mass/Vol] 0.72 mg/dL Normal 0.70-1.30 [facility] Comment on above: Order Comment: Low S odium Result Comment: The validity of the calculated GFR GFRAA in patients over 70 years has not been determined. Clinical correlation is essential. Performed By: #### L 500.4050 ####[facility] [address] [place], [address] EST GFR - AA 139 mL/min Normal >60 [facility] Comment on above: Order Comment: Low S odium Result Comment: Afri can Swedish GFR Calc Performed By: #### L 500.4050 ####[facility] [address] [place], [place], [address] GAP 4 Low 5-15 [facility] Comment on above: Order Comment: Low S odium Performed By: #### L 500.4050 ####[facility] [address] [place], [address] GFR/1.73 sq M.predicted among non-blacks MDRD (S/P/Bld) [Vol rate/Area] 115 mL/min/{1.73_m2} Normal >60 [facility] Comment on above: Order Comment: Low S odium Result Comment: Non- GFR Calc Performed By: #### L 500.4050 ####[facility] [address] [place], [address] Globulin (S) [Mass/Vol] 3.3 g/dL Normal 2.2-4.[address] [facility] Comment on above: Order Comment: Low S odium Performed By: #### L 500.4050 ####[facility] [address] [place], [address] Glucose [Mass/Vol] 144 mg/dL High 74-106 [facility] Comment on above: Order Comment: Low S odium Result Comment: Fast ing Glucose result greater than or equal to 126 mg/dL suggests DIABETES MELLITUS per A.D.A. criteria. Performed By: #### L 500.4050 ####[facility] [address] [place], [address] Potassium [Moles/Vol] 4.7 mmol/L Normal 3.5-5.1 [facility] Comment on above: Order Comment: Low S odium Performed By: #### L 500.4050 ####[facility] [address] [place], [address] Sodium [Moles/Vol] 128 mmol/L Low 136-145 [facility] Comment on above: Order Comment: Low S odium Performed By: #### L 500.4050 ####[facility] [address] [place], [address] T PROT 6.9 g/dL Normal 6.4-8.2 [facility] Comment on above: Order Comment: Low S odium Performed By: #### L 500.4050 ####[facility] [address] [place], [address] Urea nitrogen [Mass/Vol] 10 mg/dL Normal 7-18 [facility] Comment on above: Order Comment: Low S odium Performed By: #### L 500.4050 ####[facility] [address] [place], [address] Basic metabolic 2000 panelon 10-06-2024 Anion gap [Moles/Vol] 10 mmol/L Normal 8-15 [facility] Comment on above: Order Comment: Speci men Type: BLOOD SPECIMENOrdering Facility: [facility] Address: [address] [place] [address] Performed By: #### 2 132-9, 28850-5, 2885-2, 2143-6 ####[facility] LABCLIA [id number] [facility] [place] [address] [place] Calcium [Mass/Vol] 9.4 mg/dL Normal 8.5-10.2 [facility] Comment on above: Order Comment: Speci men Type: BLOOD SPECIMENOrdering Facility: [facility] Address: [address] [place] [address] Performed By: #### 2 132-9, 71013-9, 288-2, 2143-03 ####[facility] LABCLIA [id number] [place] [address] [place] Chloride [Moles/Vol] 94 mmol/L Low 98-107 [facility] Comment on above: Order Comment: Speci men Type: BLOOD SPECIMENOrdering Facility: [facility] Address: [address] [place] [address] Performed By: #### 2 132-9, 22918-6, 2884-2, 2143-03 ####[facility] LABCLIA [id number] [place] [address] [place] CO2 [Moles/Vol] 27 mmol/L Normal 22-[address] [facility] Comment on above: Order Comment: Speci men Type: BLOOD SPECIMENOrdering Facility: [facility] Address: [address] [place] [address] Performed By: #### 2 132-9, 41259-5, 2884-2, 2143-03 ####[facility] LABCLIA [id number] [place] [id number] [place] Creatinine [Mass/Vol] 0.61 mg/dL Low 0.73-1.22 [facility] Comment on above: Order Comment: Speci men Type: BLOOD SPECIMENOrdering Facility: [facility] Address: [address] [place] [address] Performed By: #### 2 132-9, 11998-3, 288-2, 2143-03 ####[facility] LABCLIA [id number] [address] [address] [place] Creatinine and Glomerular filtration rate.predicted panel (S/P/Bld) 102 mL/min/1.73m??? Normal >=[address] [facility] Comment on above: Order Comment: Mariza gomes Type: BLOOD SPECIMENOrdering Facility: [facility] Address: [address] [place] [address] Result Comment: Ingrid mated Glomerular Filtration Rate [...] actual GFR. Performed By: #### 2 132-9, 91274-8, 5-2, 2143-03 ####[facility] LABCLIA [id number] [place] [address] [place] Glucose [Mass/Vol] 83 mg/dL Normal 74-99 [facility] Comment on above: Order Comment: Mariza gomes Type: BLOOD SPECIMENOrdering Facility: [facility] Address: [address] [place] [address] Result Comment: The [place] Diabetes Association (ADA) provides guidance for cutoff [...] Standards of Medical Care in Diabetes 2016, [place] Diabetes Association. Diabetes Care. 2016.39(Suppl 1). Performed By: #### 2 132-9, 73304-1, 2885-2, 6 ####[facility] LABCLIA [id number] [address] [address] [place] Potassium [Moles/Vol] 5.3 mmol/L High 3.7-5.1 [facility] Comment on above: Order Comment: Speci men Type: BLOOD SPECIMENOrdering Facility: [facility] Address: [address] [place] [address] Performed By: #### 2 132-9, 48599-2, 2885-2, 3-6 ####[facility] LABCLIA [id number] [place] [address] [place] Sodium [Moles/Vol] 131 mmol/L Low 136-144 [facility] Comment on above: Order Comment: Speci men Type: BLOOD SPECIMENOrdering Facility: [facility] Address: [address] [place] [address] Performed By: #### 2 132-9, 60190-8, 2885-2, 2142-6 ####[facility] LABCLIA [id number] [place] [address] [place] Urea nitrogen [Mass/Vol] 7 mg/dL Low 9-[address] [facility] Comment on above: Order Comment: Speci men Type: BLOOD SPECIMENOrdering Facility: [facility] Address: [address] [place] [address] Performed By: #### 2 132-9, 14652-5, 2885-2, 6 ####[facility] LABCLIA [id number] [place] [id number] [place] CBC panel Auto (Bld)on 10-06 Erythrocyte distribution width (RBC) [Ratio] 11.5 % Normal 11.5-15.[address] [facility] Comment on above: Order Comment: Speci men Type: BLOOD SPECIMENOrdering Facility: [facility] Address: [address] [place] [address] Performed By: #### 5 8410-2 ####[facility] LABCLIA [id number] [place] [address] [place] Hematocrit (Bld) [Volume fraction] 30.4 % Low 39.0-51.[address] [facility] Comment on above: Order Comment: Speci men Type: BLOOD SPECIMENOrdering Facility: [facility] Address: [address] [place] [address] Performed By: #### 5 8410-2 ####[facility] LABIA [id number] [place] [address] [place] Hemoglobin (Bld) [Mass/Vol] 10.7 g/dL Low 13.0-17.[address] [facility] Comment on above: Order Comment: Speci men Type: BLOOD SPECIMENOrdering Facility: [facility] Address: [address] [place] [address] Performed By: #### 5 8410-2 ####[facility] LABIA [id number] [place] [address] [place] MCH (RBC) [Entitic mass] 34.9 pg High 26.0-34.[address] [facility] Comment on above: Order Comment: Speci men Type: BLOOD SPECIMENOrdering Facility: [facility] Address: [address] [place] [address] Performed By: #### 5 8410-2 ####[facility] LABIA [id number] [place] [address] [place] MCHC (RBC) [Mass/Vol] 35.2 g/dL Normal 30.5-36.0 [facility] Comment on above: Order Comment: Speci men Type: BLOOD SPECIMENOrdering Facility: [facility] Address: [address] [place] [address] Performed By: #### 5 8410-2 ####[facility] LABIA [id number] [place] [address] [place] MCV (RBC) [Entitic vol] 99.0 fL Normal 80.0-100.0 [facility] Comment on above: Order Comment: Speci men Type: BLOOD SPECIMENOrdering Facility: [facility] Address: [address] [place] [address] Performed By: #### 5 8410-2 ####[facility] LABCLIA [id number] [place] [address] [place] Nucleated RBC (Bld) [#/Vol] 10*3/uL Normal <0.[address] [facility] Comment on above: Order Comment: Speci men Type: BLOOD SPECIMENOrdering Facility: [facility] Address: [address] [place] [address] Performed By: #### 5 8410-2 ####[facility] LABIA [id number] [place] [address] [place] Platelet mean volume (Bld) [Entitic vol] 9.5 fL Normal 9.0-12.[address] [facility] Comment on above: Order Comment: Speci men Type: BLOOD SPECIMENOrdering Facility: [facility] Address: [address] [place] [address] Performed By: #### 5 8410-2 ####[facility] LABIA [id number] [place] [address] [place] Platelets (Bld) [#/Vol] 236 10*3/uL Normal 150-[address] [facility] Comment on above: Order Comment: Speci men Type: BLOOD SPECIMENOrdering Facility: [facility] Address: [address] [place] [address] Performed By: #### 5 8410-2 ####[facility] LABIA [id number] [place] [address] [place] RBC (Bld) [#/Vol] 3.07 10*6/uL Low 4.20-6.00 [facility] Comment on above: Order Comment: Speci men Type: BLOOD SPECIMENOrdering Facility: [facility] Address: [address] [place] [address] Performed By: #### 5 8410-2 ####[facility] LABIA [id number] [place] [address] [place] WBC (Bld) [#/Vol] 5.07 10*3/uL Normal 3.70-11.00 [facility] Comment on above: Order Comment: Speci men Type: BLOOD SPECIMENOrdering Facility: [facility] Address: [address] [place] [address] Performed By: #### 5 8410-2 ####[facility] LABCLIA [id number] [place] [address] [place] Cortis SerPl-mCncon 10-06-20 Cortisol [Mass/Vol] 10.3 ug/dL Normal 4.8-19.5 [facility] Comment on above: Order Comment: Speci men Type: BLOOD SPECIMENOrdering Facility: [facility] Address: [address] [place] [address] Result Comment: Prov ided reference range is from 6-10 AM sample collection time. Cortisol Reference Range: 6-10 AM = 4.8-19.5 ug/dL, 4-8 PM = 2.5-11.9 ug/dL Performed By: #### 2 132-9, 31411-7, 2885-2, 2143-6 ####[facility] LABCLIA [id number] [place] [address] [place] Osmolality SerPlon Osmolality [Osmolality] 268 mosm/kg Low 275-[address] [facility] Comment on above: Order Comment: Speci men Type: BLOOD SPECIMEN [facility] Address: [address] [place] [address] Performed By: #### 5 8410-2 #### [facility] LAB CLIA [id number] [address] [place] [address] [place] Osmolality Uron 10-06-2024 Osmolality (U) [Osmolality] 161 mosm/kg Normal 50-[address] [facility] Comment on above: Order Comment: Speci men Type: URINE SPECIMENOrdering Facility: [facility] Address: [address] [place] [address] Performed By: #### 2 695-5 ####[facility] LABCLIA [id number] [place] [address] [place] PROTEIN ELECTROPHORESIS SERU M (P)on 10-06-2024 Albumin [Mass/Vol] 3.78 g/dL Normal 3.43-5.41 [facility] Comment on above: Order Comment: Speci men Type: BLOOD SPECIMENOrdering Facility: [facility] Address: [address] [place] [address] Performed By: #### L [id number] ####[facility] LABCLIA [id number] [place] [address] [place] Alpha 1 globulin Elph [Mass/Vol] 0.28 g/dL Normal 0.18-0.[address] [facility] Comment on above: Order Comment: Speci men Type: BLOOD SPECIMENOrdering Facility: [facility] Address: [address] [place] [address] Performed By: #### L [id number] ####[facility] LABCLIA [id number] [place] [address] [place] Alpha 2 globulin Elph [Mass/Vol] 0.58 g/dL Normal 0.42-0.[address] [facility] Comment on above: Order Comment: Speci men Type: BLOOD SPECIMENOrdering Facility: [facility] Address: [address] [place] [address] Performed By: #### L [id number] ####[facility] LABCLIA [id number] [place] [address] [place] Beta globulin Elph [Mass/Vol] 0.61 g/dL Normal 0.61-1.[address] [facility] Comment on above: Order Comment: Speci men Type: BLOOD SPECIMENOrdering Facility: [facility] Address: [address] [place] [address] Performed By: #### L [id number] ####[facility] LABCLIA [id number] [place] [address] [place] Gamma globulin Elph [Mass/Vol] 0.54 g/dL Normal 0.53-1.[address] [facility] Comment on above: Order Comment: Speci men Type: BLOOD SPECIMENOrdering Facility: [facility] Address: [address] [place] [address] Performed By: #### L [id number] ####[facility] LABIA [id number] [place] [address] [place] M-PROTEIN LOCATION Normal [facility] Comment on above: Order Comment: Speci men Type: BLOOD SPECIMENOrdering Facility: [facility] Address: [address] [place] [address] Result Comment: Not Applicable. Performed By: #### L [id number] ####[facility] LABIA [id number] [place] [address] [place] Protein Fractions [Interp] No definitive M protein is identified on protein electrophoresis. Normal No definitive M protein is identified on protein electrophores is. [facility] Comment on above: Order Comment: Speci men Type: BLOOD SPECIMENOrdering Facility: [facility] Address: [address] [place] [address] Performed By: #### L [id number] ####[facility] LABIA [id number] [place] [address] [place] Protein.monoclonal Elph [Mass/Vol] 0.00 g/dL Normal <=0.[address] [facility] Comment on above: Order Comment: Speci men Type: BLOOD SPECIMENOrdering Facility: [facility] Address: [address] [place] [address] Performed By: #### L [id number] ####[facility] LABCLIA [id number] [place] [address] [place] SPE STAFF REVIEW Reviewed by Chante Ag MD [facility] Comment on above: Order Comment: Speci men Type: BLOOD SPECIMENOrdering Facility: [facility] Address: [address] [place], [place] [address] Performed By: #### L [id number] ####[facility] LABCLIA [id number] [address] [address] [place] Prot [facility] 10-06-2024 Protein [Mass/Vol] 5.8 g/dL Low 6.3-8.0 [facility] Comment on above: Order Comment: Speci men Type: BLOOD SPECIMENOrdering Facility: [facility] Address: [address] [place] [address] Performed By: #### 2 132-9, 44911-7, 2595-2, 2142-6 ####[facility] LABIA [id number] [place] [id number] [place] Sodium ?Tm Ur-sCncon 024 Sodium Unsp time (U) [Moles/Vol] 28 mmol/L Normal 14-[address] [facility] Comment on above: Order Comment: Speci men Type: URINE SPECIMENOrdering Facility: [facility] Address: [address] [place] [address] Performed By: #### 3 5678-2 ####[facility] LABIA [id number] [address] [address] [place] Vit B12 SerPl-ncon 024 Cobalamin (Vitamin B12) [Mass/Vol] 509 pg/mL Normal 232-[address] [facility] Comment on above: Order Comment: Speci men Type: BLOOD SPECIMENOrdering Facility: [facility] Address: [address] [place] [address] Performed By: #### 2 132-9, 80300-6, 2885-2, 2142-6 ####[facility] LABIA [id number] [place] [id number] [place] ECG 12-LEADon 10-01-2024 ECG 12-LEAD IMPRESSION: Sinus bradycardia Prolonged HI interval Borderline ST elevation, anterior leads Electronically Signed On 10-01-2024 15:11:59 EST by Basil Cordoba [facility] Anesthesia Noteon 09-30-2024 Anesthesia Note Sedation Plan [...] proceed to administer sedation as planned. Normal [facility] Cardiac catheterization stud yon 09-30-2024 History: [...] -PCI of the ramus intermedius: A 6 Wolof EBU 3.5 guide catheter was used, with [...] modification. Follow up with Dr. Simeon in [place] Referral to cardiac rehab Coronary Findings Diagnostic [...] sec. Supplies Used: CATH NC TREK DRE 3.95Z53WM Angioplasty (Also treats lesions: Dist LM): Angioplasty using a standard balloon was performed following stent deployment. Balloon inserted and unable to cross lesion. Balloon was not inflated. Supplies Used: CATH NC TREK DRE 3.48L51BS Angioplasty (Also treats lesions: Dist LM): Angioplasty using a standard balloon was performed prior to stent deployment. Balloon inserted, inflated, placed across lesion and removed. Balloon inflated using single inflation technique. Balloon 1: Inflation#1: Pressure = 12 thony; Duration = 10 sec. Supplies Used: CATH NC TREK DRE 2.54G31DH Intravascular Lithotripsy (Also treats lesions: Dist LM): IVL cycles: 60 Supplies Used: CATH SHOCKWAVE C2+ IVL 3.5X12 Stent (Also treats lesions: Dist LM): Type of stent: drug-eluting. The stent used was a STENT COR SKYPOINT 3.94T50CL. Actions taken: stent inserted, stent placed across [...] inflated. Supplies Used: CATH NC TREK DRE 3.26Z46LV Angioplasty: Angioplasty using a standard balloon was performed prior to stent deployment. Balloon inserted, unable to (more content not included)... CV CPACS HEMO [facility] Laboratory - Chemistry and C hemistry - challengeon 09-30-2024 Potassium [Moles/Vol] 4.2 mmol/L 3.5 - 5.1 mmol/L [facility] Comment on above: Plasma potassium matt ues may be up to 0.5 mmol/L lower than serum values. No Panel Informationon 09-30 Interpretation and review of laboratory results Abnormal [facility] Direct Auto POCT ACT 264 High [facility] Direct Auto POCT ACT 362 High [facility] Performed by: [facility], [address] [place] [address] CLIA ID: [id number] [facility] POTASSIUMon 09-30-2024 Potassium [Moles/Vol] 4.2 mmol/L Normal 3.5-5.1 [facility] Comment on above: Result Comment: [facility] potassium values may be up to 0.5 mmol/L lower than serum values. Performed By: #### L [id number] #### Clinical Social Work Therapist: MYCHAL HELLER ([phone]) [facility] ([facility]) [address] [place] [address] Potassium [Moles/Vol]on Interpretation and review of laboratory results Normal [facility] 36on 09-29-2024 36 Prep for proc completed. Normal [facility] Basic Metabolic Profile (BMP )on 09-28-2024 BUN/CRE 21.4 RATIO High 10-20 [facility] Comment on above: Performed By: #### L 300.3900, L100.0500, L500.2500 ####[facility] [address] [place], [address] CA,Total 9.3 mg/dL Normal 8.5-10.1 [facility] Comment on above: Performed By: #### L 300.3900, L100.0500, L500.2500 ####[facility] [address] [place], [address] Chloride [Moles/Vol] 86 mmol/L Low 98-107 [facility] Comment on above: Performed By: #### L 300.3900, L100.0500, L500.2500 ####[facility] [address] [place], [address] CO2 [Moles/Vol] 27.0 mmol/L Normal 21.0-32.0 [facility] Comment on above: Performed By: #### L 300.3900, L100.0500, L500.2500 ####[facility] [address] [place], [address] Creatinine [Mass/Vol] 0.70 mg/dL Normal 0.70-1.30 [facility] Comment on above: Result Comment: The validity of the calculated GFR GFRAA in patients over 70 years has not been determined. Clinical correlation is essential. Performed By: #### L 300.3900, L100.0500, L500.2500 ####[facility] [address] [place], [address] EST GFR - AA 142 mL/min Normal >60 [facility] Comment on above: Result Comment: Afri can Swedish GFR Calc Performed By: #### L 300.3900, L100.0500, L500.2500 ####[facility] [address] [place], [address] GAP 7 Normal 5-15 [facility] Comment on above: Performed By: #### L 300.3900, L100.0500, L500.2500 ####[facility] [address] [place], [address] GFR/1.73 sq M.predicted among non-blacks MDRD (S/P/Bld) [Vol rate/Area] 118 mL/min/{1.73_m2} Normal >60 [facility] Comment on above: Result Comment: Non- GFR Calc Performed By: #### L 300.3900, L100.0500, L500.2500 ####[facility] [address] [place], [address] Glucose [Mass/Vol] 109 mg/dL High 74-106 [facility] Comment on above: Result Comment: Fast ing Glucose result from 100 to 125 mg/dL suggests IMPAIRED HOMEOSTASIS per A.D.A. criteria. Performed By: #### L 300.3900, L100.0500, L500.2500 ####[facility] [address] [place], [address] Potassium [Moles/Vol] 4.8 mmol/L Normal 3.5-5.1 [facility] Comment on above: Performed By: #### L 300.3900, L100.0500, L500.2500 ####[facility] [address] [place], [address] Sodium [Moles/Vol] 120 mmol/L Low 136-145 [facility] Comment on above: Performed By: #### L 300.3900, L100.0500, L500.2500 ####[facility] [address] [place], [address] Urea nitrogen [Mass/Vol] 15 mg/dL Normal 7-18 [facility] Comment on above: Performed By: #### L 300.3900, L100.0500, L500.2500 ####[facility] [address] [place], [address] CBC-Complete Blood Cnt No Di ffon 09-28-2024 Erythrocyte distribution width (RBC) [Ratio] 11.5 % Low 11.6-14.6 [facility] Comment on above: Performed By: #### L 300.3900, L100.0500, L500.2500 #### [facility] [address] [place], [address] Hematocrit (Bld) [Volume fraction] 33.4 % Low 40-54 [facility] Comment on above: Performed By: #### L 300.3900, L100.0500, L500.2500 #### [facility] [address] [place], [address] Hemoglobin (Bld) [Mass/Vol] 12.0 g/dL Low 13.0-16.5 [facility] Comment on above: Performed By: #### L 300.3900, L100.0500, L500.2500 #### [facility] [address] [place], [address] MCH (RBC) [Entitic mass] 33.9 pg High 27.0-32.0 [facility] Comment on above: Performed By: #### L 300.3900, L100.0500, L500.2500 #### [facility] [address] [place], [address] MCHC (RBC) [Mass/Vol] 35.9 g/dL Normal 32-36 [facility] Comment on above: Performed By: #### L 300.3900, L100.0500, L500.2500 #### [facility] [address] [place], [address] MCV (RBC) [Entitic vol] 94.4 fL High 80-94 [facility] Comment on above: Performed By: #### L 300.3900, L100.0500, L500.2500 #### [facility] [address] [place], [address] Platelet mean volume (Bld) [Entitic vol] 9.4 fL Normal 6.2-12.0 [facility] Comment on above: Performed By: #### L 300.3900, L100.0500, L500.2500 #### [facility] [address] [place], [address] Platelets (Bld) [#/Vol] 216 10*3/uL Normal 150-450 [facility] Comment on above: Performed By: #### L 300.3900, L100.0500, L500.2500 #### [facility] [address] [place], [address] RBC (Bld) [#/Vol] 3.54 10*6/uL Low 4.6-6.2 [facility] Comment on above: Performed By: #### L 300.3900, L100.0500, L500.2500 #### [facility] [address] [place], [address] RDW SD 39.6 fl Normal 35.1-43.9 [facility] Comment on above: Performed By: #### L 300.3900, L100.0500, L500.2500 #### [facility] [address] [place], [address] WBC (Bld) [#/Vol] 6.6 10*3/uL Normal 4.4-11.0 [facility] Comment on above: Performed By: #### L 300.3900, L100.0500, L500.2500 #### [facility] [address] [place], [address] Prothrombin Time w/INRon INR Coag (PPP) [Relative time] 1.0 {INR} Normal [facility] Comment on above: Performed By: #### L 300.3900, L100.0500, L500.2500 ####[facility] [address] [place], [address] PT Coag (PPP) [Time] 13.2 s Normal 11.7-14.9 [facility] Comment on above: Performed By: #### L 300.3900, L100.0500, L500.2500 ####[facility] [address] 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 Pt verbalized understanding. Normal [facility] 36 No auth needed for L HC w/Grafts CPT 67966 per Traditional Medicare and [employer] Medicare Supplement Guidelines. Normal [facility] No Panel Informationon 09-16 Marked sinus Bradycardia -First degree A-V block Early transition Janina = 249 BORDERLINE RHYTHM [facility] Office Visiton 09-16-2024 Follow-up visit [id number] Aditya Hutson 1950 M Date Provider Department Center 09/16/2024 SERGEI OSULLIVAN [facility] DRE [facility] [address] Family History Problem Relation Age of Onset No Known Problems Mother Heart attack Father Family Status - Relation Status Age at Mother Father Level of Service:89540 HI OFFICE/OUTPATIENT NEW MODERATE MDM 45 MINUTES Reason for Visit and Comments: New Patient [542] Normal [facility] Progress Noteon 09-16-2024 Progress Note [facility] [address] [facility] [address] Dept: [phone] Dept Loc: [phone] DATE of SERVICE: 09/16/24 TIME of SERVICE: [...] followed by Dr. Simeon at [facility]. He had an NSTEMI in January 2024. [...] BUN, CREATINI (more content not included)... Normal [facility] 09-15-2024 [facility] Telephone (INTMWS) MARIE HUTSON ([id number]) 1950 M Date Time Provider Department 09/15/24 SHER JULES During your visit today, we recorded the following information about you: Suellen Donovan RN 09/15/2024 11:03 AM Signed Patient calls and states that tannery gummer had changed his medications. Patient is not taking hydrochlorothiazide 25 mg daily and Atorvastatin 40 mg daily (patient was previously on 80 mg). Suellen Donovan RN Allergies As of Date: 09/15/2024 (No Known Allergies) Date Reviewed: 09/11/2024 Reviewed by: Martha Ram LPN - Fully Assessed Reason for Visit: Medication Update [3611] Order(s):atorvastatin (LIPITOR) 40 mg tabletTake 1 tablet [...] disease involvin (more content not included)... Normal [facility] Remy 09-14-2024 [facility] Telephone (INTMWS) MARIE HUTSON ([id number]) 1950 M Date Time Provider Department 09/14/24 [...] to receive the providers message. Also sent Truecallerhart Suellen Case RN 09/15/2024 10:42 AM Signed [...] [G47.30] 09/15/20 (more content not included)... Normal [facility] Cardiology Visit Reporton Cardiology Visit Report [facility] [address] [place] [address] OFFICE VISIT Date of Service: 09/14/24 MR#: [id number] Acct: [id number] Name: MARIE HUTSON Rep #: [id number] 1 : 1950 Provider: Dr. 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 Normal [facility] ALBUMIN/CREATININE RATIO, UR INEon 09-11-2024 Albumin DL <= 20 mg/L (U) [Mass/Vol] 15.0 mg/L Normal [facility] Comment on above: Order Comment: Speci men Type: URINE SPECIMENOrdering Facility: [facility] Address: [address] [place] [address] Performed By: #### U ACR ####[facility] LABCLIA [id number] [place] [address] [place] Albumin/Creatinine (U) [Mass ratio] 42 mg/g High <[address] [facility] Comment on above: Order Comment: Speci men Type: URINE SPECIMENOrdering Facility: [facility] Address: [address] [place] [address] Result Comment: Adul t Male and Female Nephrotic Criteria: <30 mg/g is considered normal to mildly increased 30-300 mg/g is considered moderately increased >300 mg/g is considered severely increased KDIGO. (2013). KDIGO 2012 Clinical Practice Guideline for the Evaluation and Management of Chronic Kidney Disease. Official Journal of the International Society of Nephrology, 3(1), 1-150. Performed By: #### U ACR ####[facility] LABCLIA [id number] [place] [address] [place] Creatinine (U) [Mass/Vol] 35.7 mg/dL Normal 20.0-300.[address] [facility] Comment on above: Order Comment: Speci men Type: URINE SPECIMENOrdering Facility: [facility] Address: [address] [place] [address] Performed By: #### U ACR ####[facility] LABIA [id number] [place] [address] [place] CBC panel Auto (Bld)on 09-11 Erythrocyte distribution width (RBC) [Ratio] 11.9 % Normal 11.5-15.[address] [facility] Comment on above: Order Comment: Speci men Type: BLOOD SPECIMENOrdering Facility: [facility] Address: [address] [place] [address] Performed By: #### 5 8410-2 ####[facility] [id number] [place] [address] [place] Hematocrit (Bld) [Volume fraction] 34.4 % Low 39.0-51.[address] [facility] Comment on above: Order Comment: Speci men Type: BLOOD SPECIMENOrdering Facility: [facility] Address: [address] [place] [address] Performed By: #### 5 8410-2 ####[facility] LABIA [id number] [place] [address] [place] Hemoglobin (Bld) [Mass/Vol] 12.5 g/dL Low 13.0-17.[address] [facility] Comment on above: Order Comment: Speci men Type: BLOOD SPECIMENOrdering Facility: [facility] Address: [address] [place] [address] Performed By: #### 5 8410-2 ####[facility] LABIA [id number] [place] [address] [place] MCH (RBC) [Entitic mass] 36.3 pg High 26.0-34.[address] [facility] Comment on above: Order Comment: Speci men Type: BLOOD SPECIMENOrdering Facility: [facility] Address: [address] [place] [address] Performed By: #### 5 8410-2 ####[facility] LABCLIA [id number] [place] [address] [place] MCHC (RBC) [Mass/Vol] 36.3 g/dL High 30.5-36.0 [facility] Comment on above: Order Comment: Speci men Type: BLOOD SPECIMENOrdering Facility: [facility] Address: [address] [place] [address] Performed By: #### 5 8410-2 ####[facility] LABIA [id number] [place] [address] [place] MCV (RBC) [Entitic vol] 100.0 fL Normal 80.0-100.0 [facility] Comment on above: Order Comment: Speci men Type: BLOOD SPECIMENOrdering Facility: [facility] Address: [address] [place] [address] Performed By: #### 5 8410-2 ####[facility] LABIA [id number] [place] [address] [place] Nucleated RBC (Bld) [#/Vol] 10*3/uL Normal <0.[address] [facility] Comment on above: Order Comment: Speci men Type: BLOOD SPECIMENOrdering Facility: [facility] Address: [address] [place] [address] Performed By: #### 5 8410-2 ####[facility] LABIA [id number] [place] [address] [place] Platelet mean volume (Bld) [Entitic vol] 9.6 fL Normal 9.0-12.[address] [facility] Comment on above: Order Comment: Speci men Type: BLOOD SPECIMENOrdering Facility: [facility] Address: [address] [place] [address] Performed By: #### 5 8410-2 ####[facility] LABIA [id number] [place] [address] [place] Platelets (Bld) [#/Vol] 219 10*3/uL Normal 150-[address] [facility] Comment on above: Order Comment: Speci men Type: BLOOD SPECIMENOrdering Facility: [facility] Address: [address] [place] [address] Performed By: #### 5 8410-2 ####[facility] LABIA [id number] [place] [address] [place] RBC (Bld) [#/Vol] 3.44 10*6/uL Low 4.20-6.00 [facility] Comment on above: Order Comment: Speci men Type: BLOOD SPECIMENOrdering Facility: [facility] Address: [address] [place] [address] Performed By: #### 5 8410-2 ####[facility] LABIA [id number] [place] [address] [place] WBC (Bld) [#/Vol] 5.93 10*3/uL Normal 3.70-11.00 [facility] Comment on above: Order Comment: Speci men Type: BLOOD SPECIMENOrdering Facility: [facility] Address: [address] [place] [address] Performed By: #### 5 8410-2 ####[facility] LABIA [id number] [address] [place] CNOVon 09-11-2024 CNOV Office Visit (INTMWS ) MARIE HUTSON ([id number]) 1950 M Date Time Provider Department 09/11/24 11:00 AM SHER JULES INTAvWS During your visit today, we recorded the following information about you: Temperature Pulse Blood pressure Weight 97.2 degrees 46/minute 149/68 87.9 kg Height 1.778 m Sher Jules MD 09/11/2024 12:11 PM Signed This note was created using emoteShareriter. Subjective Patient presents with: 6 Month Exam [...] Mixed Sleep Apnea Coronary Artery Disease Involving [place] Coronary Artery of [place] Heart Without Angina Pectoris Obesity, Class I, [...] Plan ASSESSMENT/PLAN: 1. 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 2. Stented coronary artery - ICD9: V45.82, ICD10: Z95.5 Colonoscopy deferred till January 2025. 3. Essential hypertension - ICD9: 401.9, ICD10: I10 - Worsening control - Continue current medications - Reviewed risks of hypertension and principles of treatment - I defer to his tannery gummer. - COMPLETE B (more content not included)... Normal [facility] Comprehensive metabolic 2000 panelon 09-11-2024 Albumin [Mass/Vol] 4.2 g/dL Normal 3.9-4.9 [facility] Comment on above: Order Comment: Speci men Type: BLOOD SPECIMENOrdering Facility: [facility] Address: [address] [place] [address] Performed By: #### 2 4323-8, LIPNF ####[facility] LABCLIA [id number] [place] [address] [place] ALP [Catalytic activity/Vol] 91 U/L Normal 38-[address] [facility] Comment on above: Order Comment: Speci men Type: BLOOD SPECIMENOrdering Facility: [facility] Address: [address] [place] [address] Performed By: #### 2 4323-8, LIPNF ####[facility] LABCLIA [id number] [place] [address] [place] ALT [Catalytic activity/Vol] 18 U/L Normal 10-[address] [facility] Comment on above: Order Comment: Speci men Type: BLOOD SPECIMENOrdering Facility: [facility] Address: [address] [place] [address] Performed By: #### 2 4323-8, LIPNF ####[facility] LABCLIA [id number] [place] [address] [place] Anion gap [Moles/Vol] 8 mmol/L Normal 8-15 [facility] Comment on above: Order Comment: Speci men Type: BLOOD SPECIMENOrdering Facility: [facility] Address: [address] [place] [address] Performed By: #### 2 4323-8, LIPNF ####[facility] LABCLIA [id number] [place] [address] [place] AST [Catalytic activity/Vol] 27 U/L Normal 14-[address] [facility] Comment on above: Order Comment: Speci men Type: BLOOD SPECIMENOrdering Facility: [facility] Address: [address] [place] [address] Performed By: #### 2 4323-8, LIPNF ####[facility] LABCLIA [id number] [place] [address] [place] Bilirubin [Mass/Vol] 1.0 mg/dL Normal 0.2-1.3 [facility] Comment on above: Order Comment: Speci men Type: BLOOD SPECIMENOrdering Facility: [facility] Address: [address] [place] [address] Performed By: #### 2 4323-8, LIPNF ####[facility] LABCLIA [id number] [place] [address] [place] Calcium [Mass/Vol] 9.6 mg/dL Normal 8.5-10.2 [facility] Comment on above: Order Comment: Speci men Type: BLOOD SPECIMENOrdering Facility: [facility] Address: [address] [place] [address] Performed By: #### 2 4323-8, LIPNF ####[facility] LABCLIA [id number] [place] [address] [place] Chloride [Moles/Vol] 91 mmol/L Low 98-107 [facility] Comment on above: Order Comment: Speci men Type: BLOOD SPECIMENOrdering Facility: [facility] Address: [address] [place], [place] [address] Performed By: #### 2 4323-8, LIPNF ####[facility] LABCLIA [id number] [place] [address] [place] CO2 [Moles/Vol] 26 mmol/L Normal 22-[address] [facility] Comment on above: Order Comment: Speci men Type: BLOOD SPECIMENOrdering Facility: [facility] Address: [address] [place] [address] Performed By: #### 2 4323-8, LIPNF ####[facility] LABCLIA [id number] [place] [address] [place] Creatinine [Mass/Vol] 0.59 mg/dL Low 0.73-1.22 [facility] Comment on above: Order Comment: Speci men Type: BLOOD SPECIMENOrdering Facility: [facility] Address: [address] [place] [address] Performed By: #### 2 4323-8, LIPNF ####[facility] LABCLIA [id number] [place] [address] [place] Creatinine and Glomerular filtration rate.predicted panel (S/P/Bld) 103 mL/min/1.73m??? Normal >=[address] [facility] Comment on above: Order Comment: Speci men Type: BLOOD SPECIMENOrdering Facility: [facility] Address: [address] [place] [address] Result Comment: Ingrid mated Glomerular Filtration Rate [...] GFR. Performed By: #### 2 4323-8, LIPNF ####[facility] LABCLIA [id number] [place] [address] [place] Glucose [Mass/Vol] 106 mg/dL High 74-99 [facility] Comment on above: Order Comment: Speci men Type: BLOOD SPECIMENOrdering Facility: [facility] Address: [address] [place] [address] Result Comment: The [place] Diabetes Association (ADA) provides guidance for cutoff [...] Standards of Medical Care in Diabetes 2016, Swedish Diabetes Association. Diabetes Care. 2016.39(Suppl 1). Performed By: #### 2 4323-8, LIPNF ####[facility] LABCLIA [id number] [place] [address] [place] Potassium [Moles/Vol] 5.4 mmol/L High 3.7-5.1 [facility] Comment on above: Order Comment: Speci men Type: BLOOD SPECIMENOrdering Facility: [facility] Address: [address] [place] [address] Performed By: #### 2 4323-8, LIPNF ####[facility] LABIA [id number] [place] [address] [place] Protein [Mass/Vol] 6.5 g/dL Normal 6.3-8.0 [facility] Comment on above: Order Comment: Speci men Type: BLOOD SPECIMENOrdering Facility: [facility] Address: [address] [place] [address] Performed By: #### 2 4323-8, LIPNF ####[facility] LABCLIA [id number] [place] [address] [place] Sodium [Moles/Vol] 125 mmol/L Low 136-144 [facility] Comment on above: Order Comment: Speci men Type: BLOOD SPECIMENOrdering Facility: [facility] Address: [address] [place] [address] Performed By: #### 2 4323-8, LIPNF ####[facility] LABCLIA [id number] [place] [address] [place] Urea nitrogen [Mass/Vol] 10 mg/dL Normal 9-[address] [facility] Comment on above: Order Comment: Speci men Type: BLOOD SPECIMENOrdering Facility: [facility] Address: [address] [place] [address] Performed By: #### 2 4323-8, LIPNF ####[facility] LABCLIA [id number] [place] [address] [place] HbA1c (Bld)on 09-11-2024 Average glucose Estimated from glycated hemoglobin (Bld) [Mass/Vol] 114 mg/dL Normal [facility] Comment on above: Order Comment: Speci men Type: BLOOD SPECIMENOrdering Facility: [facility] Address: [address] [place] [address] Result Comment: eAG: (Estimated average glucose) is a calculated value from HgbA1c and is credit representative of the average blood glucose level in the last 2-3 month period. Performed By: #### 5 5454-3 ####[facility] LABCLIA [id number] [place] [address] [place] HbA1c (Bld) [Mass fraction] 5.6 % Normal 4.3-5.[address] [facility] Comment on above: Order Comment: Speci men Type: BLOOD SPECIMENOrdering Facility: [facility] Address: [address] [place] [address] Result Comment: Amer ican Diabetes Association guidelines indicate that patients with HgbA1c in the range 5.7-6.4% are at increased risk for development of diabetes, and intervention by lifestyle modification may be beneficial. HgbA1c greater or equal to 6.5% is considered diagnostic of diabetes. Performed By: #### 5 5454-3 ####[facility] LABCLIA [id number] [place] [address] [place] LIPID PANEL, NONFASTINGon Cholesterol [Mass/Vol] 123 mg/dL Normal <200 [facility] Comment on above: Order Comment: Speci men Type: BLOOD SPECIMENOrdering Facility: [facility] Address: [address] [place] [address] Result Comment: <200 mg/dL, Desirable 200-239 mg/dL, Borderline high >239 mg/dL, High Performed By: #### 2 4323-8, LIPNF ####[facility] LABCLIA [id number] [place] [address] [place] HDL CHOLESTEROL, NF 96 mg/dL Normal >39 [facility] Comment on above: Order Comment: Speci men Type: BLOOD SPECIMENOrdering Facility: [facility] Address: [address] [place] [address] Result Comment: 40-5 9 mg/dL, Acceptable >59 mg/dL, High: Negative risk factor for coronary heart disease <40 mg/dL, Low: Positive risk factor for coronary heart disease Performed By: #### 2 4323-8, LIPNF ####[facility] LABCLIA [id number] [address] [place] LDL CHOLESTEROL, NF 18 mg/dL Normal <100 [facility] Comment on above: Order Comment: Speci men Type: BLOOD SPECIMENOrdering Facility: [facility] Address: [address] [place] [address] Result Comment: <100 mg/dL, Optimal 100-129 mg/dL, Near optimal/above optimal 130-159 mg/dL, Borderline high 160-189 mg/dL, High >189 mg/dL, Very high Secondary prevention optimal LDL Cholesterol levels are recommended to be < 70 mg/dL Performed By: #### 2 4323-8, LIPNF ####[facility] LABCLIA [id number] [place] [address] [place] LDL/HDL RATIO, NF 0.19 mg/dL Normal <2.54 [facility] Comment on above: Order Comment: Speci men Type: BLOOD SPECIMENOrdering Facility: [facility] Address: [address] [place] [address] Result Comment: Ramon england: 1. National Cholesterol Education Program ATP III Guideline At-A-Glance Quick Desk Reference: National Heart, Lung, and Blood Meridian. National Institutes of Health. 2001: NIH Publication No. 01-3305. 2. An International Atherosclerosis Society position paper: global recommendations for the management of dyslipidemia: executive summary, Atherosclerosis. 2014: 232(2):410-413. Performed By: #### 2 4323-8, LIPNF ####[facility] LABCLIA [id number] [place] [address] [place] NON HDL CHOL, NF 27 mg/dL Normal <130 [facility] Comment on above: Order Comment: Treasurei men Type: BLOOD SPECIMENOrdering Facility: [facility] Address: [address] [place] [address] Result Comment: <130 mg/dL, Optimal 130-159 mg/dL, Near optimal/above optimal 160-189 mg/dL, Borderline high 190-219 mg/dL, High >219 mg/dL, Very high Secondary prevention optimal non HDL Cholesterol levels are recommended to be <100 mg/dL Performed By: #### 2 4323-8, LIPNF ####[facility] LABCLIA [id number] [place] [address] [place] T CHOL/HDL RATIO NF 1.28 mg/dL Normal <5.10 [facility] Comment on above: Order Comment: Speci men Type: BLOOD SPECIMENOrdering Facility: [facility] Address: [address] [place] [address] Performed By: #### 2 4323-8, LIPNF ####[facility] LABCLIA [id number] [place] [address] [place] TRIGLYCERIDES, NF 47 mg/dL Normal <150 [facility] Comment on above: Order Comment: Speci men Type: BLOOD SPECIMENOrdering Facility: [facility] Address: [address] [id number] Result Comment: <150 mg/dL, Normal 150-199 mg/dL, Borderline high 200-499 mg/dL, High >499 mg/dL, Very high Performed By: #### 2 4323-8, LIPNF ####[facility] LABCLIA [id number] [place] [id number] [place] VLDL CHOLESTEROL, NF 9 mg/dL Normal <30 [facility] Comment on above: Order Comment: Speci men Type: BLOOD SPECIMENOrdering Facility: [facility] Address: [address] [place] [address] Performed By: #### 2 4323-8, LIPNF ####[facility] LABCLIA [id number] [place] [address] [place] Coronary Angiography CTon Coronary Angiography CT [facility] Imaging Services [address] [place] [address] 06/30/24 1112 MR#: [id number] Acct: [id number] Name: MARIE HUTSON Rep #: [id number] : 1950 74 From: Nain Segundo MD [...] MD; Dr. Sher Jules MD [facility] Office Visit (PODIWS ) MARIE HUTSON ([id number]) 1950 M Date Time Provider Department 06/26/24 [...] Objective: Patient presents to clinic ambulating in [facility] Vasc: DP and PT pulses are faintly [...] Gomez Schwab DPM Referring Provider: GOMEZ SCHWAB [[id number]] Allergies As of Date: 06/26/2024 (No Known [...] right foot [M79.674] PAD (peripheral artery disease) ([facility]) [I73.9] Diabetic polyneuropathy associated with type 2 diabetes mellitus ([facility]) [E11.42] Prescriptions as of 06/26/2024 - nitroglycerin [...] days. - Miscellaneous Medical Supply (COMPRESSION STOCKINGS) [facility] COMPRESSION STOCKINGS KNEE HI 20-30 WT M79.89 [...] [N52.9] 12/29/2007 (more content not included)... Normal [facility] Cardiology Visit Reporton Cardiology Visit Report [facility] [address] [place] [address] OFFICE VISIT Date of Service: 06/26/24 MR#: [id number] Acct: [id number] Name: MARIE HUTSNO Rep #: [id number] : 1950 Provider: TANIYA lopez Age/Sex: 74/M Location: [facility] Status: Signed HPI HPI History of Present Illness Details: This is a 74 year old gentleman who presents to the office today for a cardiovascular follow-up visit. He has a past medical history significant for coronary artery disease with three-vessel CABG (WRIGHT LAD, SVG-PDA, SVG-OM 1) in 2012 at the [facility]. He had presented to the emergency room [...] He states that he followed with his tannery gummer at [facility] Dr. Ricks after [...] 99 Intake Visit Reasons: 4 WK FU Director Equipment Required: No Is patient in pain?: No [...] Essential (primary) hypertension Atherosclerotic heart disease of hamilton coronary artery without angina pectoris Diabetes mellitus, [...] fatigue, weakness, (more content not included)... Normal [facility] CREATININE FINGERSTICKon CREATININE WB < 1.0 Normal 0.70-1.30 [facility] Comment on above: Performed By: #### L 9100.0200 ####[facility] [id number] [place], [place], [id number] EGFR WB > 60.0000 Normal >60 [facility] Comment on above: Performed By: #### L 9100.0200 ####[facility] [id number] [facility] [place], [address] Cardiac Onl yon 06-23-[address] Cardiac Only [facility] Imaging Services [address] [place], [place] [address] Limited Chest CT Cardiac Only MR#: [id number] Acct: [id number] Name: MARIE HUTSON Rep #: [id number] : 1950 M 74 From: Ravi mcghee MD PCP: Dr. Sher Jules MD Status: [facility] Study: Limited Chest CT Cardiac Only Date of Exam: Exam# [id number] Ordering Dr: Naz Cox CITY ADMINISTRATOR CITY ADMINISTRATOR- C [id number] STUDY: CT CHEST WITH T WITHOUT CONTRAST REASON FOR EXAM: Male, 74 years old. Atherosclerotic heart disease of hamilton coronary artery with limited chest over read [...] CC: TANIYA Cox; Dr. Sher Jules MD Seat Mender: Signed Normal [facility] 12 Lead EKG performed by [facility] on 05-28-2024 12 Lead EKG performed by [facility] [address] [place] [address] 12 Lead EKG performed by [facility] 05/28/241042 MR#: [id number] Acct: [id number] Name: MARIE HUTSON Rep #: [id number] : 1950 74 From: Naz Cox NP CITY ADMINISTRATOR-C Attending Dr: ROSI SinhaC Status: DEP Susan CASE Ordering Dr: Naz Cox NP CITY ADMINISTRATOR-C Date: 05/28/24 [place] [facility] Sex: M C Admitted: BMS/12 Lead EKG performed by [facility] ECG Report Interpretation ---Marked sinus Bradycardia -First degree A-V block Janina = 244BORDERLINE RHYTHMElectronically signed on 06/03/2024 at 07:35 by Nain Segunod Software Version 8610 06/03/2438 Date Naz MONAHAN CC: Dr. Sher Jules MD Date Dictated: 05/28/241042 Date Transcribed: 05/28/241042 Seat Mender: MASOOD Signed Normal [facility] Cardiology Visit Reporton Cardiology Visit Report [facility] [address] [place] [address] OFFICE VISIT Date of Service: 05/28/24 MR#: [id number] Acct: [id number] Name: MARIE HUTSON Rep #: [id number] : 1950 Provider: TANIYA lopez Age/Sex: 74/M Location[place] [facility] Status: Signed [facility] History of Present Illness Details: This is a 74 year old gentleman who presents to the office today for a cardiovascular follow-up visit. He has a past medical history significant for coronary artery disease with three-vessel CABG (WRIGHT LAD, SVG-PDA, SVG-OM 1) in 2012 at the [facility]. He had presented to the emergency room [...] He states that he followed with his tannery gummer at [facility] Ricks after his hospitalization. [...] Method room air Intake Visit Reasons: S/P [facility] Cath 01/28 Accompanied by: Self Is patient [...] Essential (primary) hypertension Atherosclerotic heart disease of hamilton coronary artery without angina pectoris Diabetes mellitus, [...] Smoking S (more content not included)... Normal [facility] NM CARDIAC PERF STRESS/PHARM on 03-12-2024 NM CARDIAC PERF STRESS/PHARM * * *Final Report* * * DATE OF EXAM: Mar 12 2024 9:00AM ASHER 0006 - NM CARDIAC PERF STRESS/PHARM / PROCEDURE REASON: multiple diagnoses * * * * Physician Interpretation * * * * Stress School Lunch Monitor Report: [facility] Date of service: 03/12/2024 7:31:04 AM Supervising [...] later. See administered radiotracer and doses below. [facility] Date of service: 03/12/2024 7:31:04 AM Ordering [...] * * * ---- Stress ECG Report: [facility] Date of service: 03/12/2024 7:31:04 AM Ordering physician: BIB PATTERSON ignition specialist: Ericka Hurtado Clinical Therapist: Edelmira Wilks Interpreting physician: Cecile Woodson MD [...] PCI (20 (more content not included)... Normal [facility] NM Heart Perfusion W stress and W radionuclide [place] 03-12-2024 * * *Final Report* * * DATE OF EXAM: Mar 12 2024 9:00AM ASHER 0006 - NM CARDIAC PERF STRESS/PHARM / PROCEDURE REASON: multiple diagnoses * * * * Physician Interpretation * * * * Stress School Lunch Monitor Report: [facility] Date of service: 03/12/2024 7:31:04 AM Supervising [...] later. See administered radiotracer and doses below. [facility] Date of service: 03/12/2024 7:31:04 AM Ordering [...] * * * ---- Stress ECG Report: [facility] Date of service: 03/12/2024 7:31:04 AM Ordering physician: BIB PATTERSON ignition specialist: Ericka Hurtado Clinical Therapist: Edelmira Wilks Interpreting physician: Cecile Woodson MD Patient name: MR. MARIE HUTSON Age: 74 years Gender: M Height: 170.18 cm BSA: 2.26 m Weight: 108.41 kg BMI: 37.4 kg/m Indication: Chest pressure / Chest tightness Stress ECG Conclusion: Conclusion: Normal Stress ECG Summary (more content not included)... [facility] Provider, [facility] Flaca meng [place] - 03/12/2024 * * *Final Report* * * DATE OF EXAM: Mar 12 2024 9:00AM ASHER 0006 - NM CARDIAC PERF STRESS/PHARM / PROCEDURE REASON: multiple diagnoses * * * * Physician Interpretation * * * * Stress School Lunch Monitor Report: [facility] Date of service: 03/12/2024 7:31:04 AM Supervising [...] later. See administered radiotracer and doses below. [facility] Date of service: 03/12/2024 7:31:04 AM Ordering [...] * * * ---- Stress ECG Report: [facility] Date of service: 03/12/2024 7:31:04 AM Ordering physician: BIB PATTERSON ignition specialist: Ericka Hurtado Clinical Therapist: Edelmira Wilks Interpreting physician: Cecile Woodson MD [...] the predicted he (more content not included)... [facility] Radiology Study observation (narrative) [facility] Heart Perfusion W stress and W radionuclide IVOrdered By: [facility]cf Provider on 03-12-2024 [facility] Remy 03-11-2024 [place] Telephone (CDLBME) MARIE HUTSON ([id number]) 1950 M Date Time Provider Department 03/11/24 [...] days. - Miscellaneous Medical Supply (COMPRESSION STOCKINGS) [facility] COMPRESSION STOCKINGS KNEE HI 20-30 WT M79.89 [...] [H34.232] 06/11/2022 02/07/2024 Coronary artery disease involving hamilton clemente*05/06/2023 Obesity, Class II, BMI 35-39.9 [E66.9] 08/09/2023 02/07/2024 Obesity, Class I, BMI 30-34.9 [E66.9] 02/07/2024 Encounter Status:Closed by EDELMIRA WILKS on 03/11/24 [facility] Basophil percentageOrdered B y: Rubio Simeon on 01-30-2024 Bilirubin [Mass/Vol] 0.80 mg/dL 0.20-1.00 [facility] Comment on above: For patients on eltr ombopag therapy, use of Dimension [place] TBIL is not recommended. Chloride [Moles/Vol] 101 mmol/L 98-107 [facility] Glucose [Mass/Vol] 160 mg/dL 74-106 [facility] Comment on above: Fasting Glucose resu lt greater than or equal to 126 mg/dL suggests DIABETES MELLITUS per A.D.A. criteria. Hemoglobin (Bld) [Mass/Vol] 9.6 g/dL 13.0-16.5 [facility] Potassium [Moles/Vol] 3.5 mmol/L 3.5-5.1 [facility] Protein [Mass/Vol] 6.0 g/dL 6.4-8.2 [facility] Sodium [Moles/Vol] 135 mmol/L 136-145 [facility] WBC (Bld) [#/Vol] 14.5 10*3/uL 4.4-11.0 [facility] Determination of erythrocyte mean corpuscular volume (MCV)Ordered By: Rubio Simeon on 01-30-2024 MCV (RBC) [Entitic vol] 93.2 fL 80-94 [facility] Erythrocyte distribution wid th ratioOrdered By: [facility] on 01-30-2024 Erythrocyte distribution width (RBC) [Ratio] 11.9 % 11.6-14.6 [facility] Erythrocyte distribution wid th standard deviationOrdered By: [facility] on 01-30-2024 Erythrocyte distribution width (RBC) [Entitic vol] 39.7 fL 35.1-43.9 [facility] Hematocrit Auto (Bld) [Volum e fraction]Ordered By: Rubiocarla Simeon on 01-30-2024 Hematocrit (Bld) [Volume fraction] 27.5 % 40-54 [facility] Laboratory - Chemistry and C hemistry - challengeOrdered By: Rubio Blanco on 01-30-2024 Albumin/Globulin [Mass ratio] 0.8 {ratio} 0.9-2.4 [facility] ALP [Catalytic activity/Vol] 86 U/L 45-117 [facility] ALT [Catalytic activity/Vol] 22 U/L 16-61 [facility] CO2 [Moles/Vol] 28.0 mmol/L 21.0-32.0 [facility] Globulin (S) [Mass/Vol] 3.4 g/dL 2.2-4.2 [facility] Urea nitrogen/Creatinine [Mass ratio] 21.5 mg/mg 10-20 [facility] Laboratory - Hematology and Cell countsOrdered By: Rubiocarla Simeon on 01-30-2024 MCH (RBC) [Entitic mass] 32.5 pg 27.0-32.0 [facility] MCHC (RBC) [Mass/Vol] 34.9 g/dL 32-36 [facility] Platelet mean volume (Bld) [Entitic vol] 9.1 fL 6.2-12.0 [facility] Platelets (Bld) [#/Vol] 317 10*3/uL 150-450 [facility] No Panel InformationOrdered By: Rubio Simeon on 01-30-2024 Estimated Creatinine Clearance Calc 99.95 ml/min [facility] Estimated GFR (MDRD) Amer 133 mL/min >60 [facility] Comment on above: GFR Calc Estimated GFR (MDRD) Non-Af Amer 110 mL/min >60 [facility] Comment on above: Non- GFR Calc RBC Auto (Bld) [#/Vol]Ordere d By: Rubio Simeon on 01-30-2024 RBC (Bld) [#/Vol] 2.95 10*6/uL 4.6-6.2 [facility] Serum or plasma calcium juany urement (mass/volume)Ordered By: Rubio Simeon on 01-30-2024 Calcium [Mass/Vol] 8.6 mg/dL 8.5-10.1 [facility] Serum or plasma creatinine m easurement (mass/volume)Ordered By: Rubio Simeon on 01-30-2024 Creatinine [Mass/Vol] 0.74 mg/dL 0.70-1.30 [facility] Comment on above: The validity of the calculated GFR & GFRAA in patients over 70 years has not been determined. Clinical correlation is essential. Serum or plasma urea nitroge n measurement (mass/volume)Ordered By: Rubio Simeon on 01-30-2024 Urea nitrogen [Mass/Vol] 16 mg/dL 7-18 [facility] Thin prep Papanicolaou smear with manual screeningOrdered By: Debby Machuca on 01-30-2024 Thin prep Papanicolaou smear with manual screening 224 mg/dL 74-106 [facility] Comment on above: MANAGEMENT OF PATIEN T CARE PER NURSING PROTOCOL Thin prep Papanicolaou smear with manual screeningOrdered By: Rubio Simeon on 01-30-2024 Thin prep Papanicolaou smear with manual screening 2.6 g/dL 3.2-5.0 [facility] Thin prep Papanicolaou smear with manual screening 46 U/L 15-37 [facility] Thin prep Papanicolaou smear with manual screening 6 5-15 [facility] Absolute lymphocyte countOrd ered By: Geeta Mendoza on 01-29-2024 Lymphocytes Auto (Unsp spec) [#/Vol] 0.73 10*3/uL 0.83-4.51 [facility] Activated partial thrombopla stin time (aPTT) in platelet poor plasma by coagulation aOrdered By: Rubio Simeon on 01-29-2024 aPTT Coag (PPP) [Time] 95.3 s 24.1-36.2 [facility] Comment on above: CRITICAL VALUE VERIF IED. CALLED TO ERNESTINA HOLLOWAY (ICU)01/29/24 07 Gomez Sewell.RESULTS READ BACK BY SAME. Automated lymphocyte count a s percentage of total leukocytesOrdered By: Geeta Mendoza on 01-29-2024 Lymphocytes/100 WBC Auto (Unsp spec) 4.7 % 19-41 [facility] Basophil percentageOrdered B y: Geeta Mendoza on 01-29-2024 Basophil percentage 3.6 mg/dL 2.5-4.9 [facility] Basophils/100 WBC (Bld) 0.1 % 0-1 [facility] Cholesterol [Mass/Vol] 79 mg/dL <200 [facility] Comment on above: <200 mg/dL Desirable 200-240 mg/dL Borderline >240 mg/dL High Risk Eosinophils/100 WBC (Bld) 0.0 % 0-5 [facility] Monocytes/100 WBC (Bld) 6.0 % 0-[address] [facility] Neutrophils (Bld) [#/Vol] 13.7 10*3/uL 2.0-7.7 [facility] Neutrophils/100 WBC (Bld) 88.5 % 47-70 [facility] Triglyceride [Mass/Vol] 54 mg/dL <[address] [facility] Comment on above: The drugs N-Acetylcy steine and Metamizole may falsely depress this assay.Serum Triglycerides Reference Interval Normal <150 mg/dL Borderline high 150 - 199 mg/dL High 200 - 499 mg/dL Very High > or = 500 mg/dL Immature granulocytes/100 WB C Auto (Bld)Ordered By: Geeta Mendoza on 01-29-2024 Immature granulocytes/100 WBC (Bld) 0.700 % 0.0-0.9 [facility] Comment on above: IG% - Immature Granu locytes (promyelocytes, myelocytes and metamyelocytes) > 1% indicates that a LEFT SHIFT is Present. Iron measurement (mass/mass) Ordered By: Geeta Mendoza on 01-29-2024 Iron (Unsp spec) [Mass/Mass] 87 ug/dL 65-175 [facility] Laboratory - Chemistry and C hemistry - challengeOrdered By: Geeta Mendoza on 01-29-2024 Cholesterol in HDL [Mass/Vol] 49 mg/dL >40 [facility] Comment on above: The drugs N-Acetylcy steine and Metamizole may falsely depress this assay. Reference Range HDL <40 mg/dL Low HDL Cholesterol HDL >or= 60 mg/dL High HDL Cholesterol Cholesterol in LDL [Mass/Vol] 19 mg/dL 0-130 [facility] Cobalamin (Vitamin B12) [Mass/Vol] 424 pg/mL 211-911 [facility] Ferritin [Mass/Vol] 234 ng/mL 26-388 [facility] Magnesium [Mass/Vol] 1.9 mg/dL 1.6-2.6 [facility] Laboratory - Hematology and Cell countsOrdered By: Geeta Mendoza on 01-29-2024 Nucleated RBC/100 WBC (Bld) [Ratio] 0 % 0-5 [facility] No Panel InformationOrdered By: Debby Machuca on 01-29-2024 Activated Clotting Time 255 sec 74-137 [facility] No Panel InformationOrdered By: Geeta Mendoza on 01-29-2024 Folate 17.30 ng/mL 3.1-55.4 [facility] Total Iron Binding Capacity 195 ug/dL 250-450 [facility] VLDL Cholesterol 11 mg/dL 5-40 [facility] Troponin I High Sensitivity 11796 pg/mL 3.0-78.0 [facility] Comment on above: Critical Result(s) C alled at: 00:42:11 01/29/2024 by: Christiana Hale RN in ICU. Results read back by same. Please Note: New Test Units and Gender Specific Reference Ranges. For more information see Policy Stat Procedure [place] High Sensitivity Troponin (TNIH) and attachments. Serum or plasma iron saturat ion measurement (mass fraction)Ordered By: Geeta Kelly on 01-29-2024 Iron saturation [Mass fraction] 44.6 % 15.0-55.0 [facility] Serum or plasma thyroid stim ulating hormone (TSH) measurement (units/volume)Ordered By: Geeta Kelly on 01-29-2024 TSH Qn 0.31 uIU/mL 0.358-3.74 [facility] Thin prep Papanicolaou smear with manual screeningOrdered By: Geeta Kelly on 01-29-2024 Thin prep Papanicolaou smear with manual screening 1.27 ng/dL 0.76-1.46 [facility] Whole blood hemoglobin A1c/t otal hemoglobin ratio (mass fraction)Ordered By: Geeta Kelly on 01-29-2024 HbA1c (Bld) [Mass fraction] 6.3 % 3.8-5.6 [facility] Comment on above: Normal < 5.7 % Predi abetic 5.7 - 6.4 % Diabetic >or= 6.5 % Please note range changes. XR Wrist - bilateral PA and Lateral and Obliqueon 01-29-2024 IMPRESSION: 1. No acute radiographic abnormality of the bilateral wrists Seat Mender: PSCB Transcribe Date/Time: Jan 29 2024 5:05P Dictated by : TOOTIE BERNARD MD This examination was interpreted and the report reviewed and electronically signed by: TOOTIE BERNARD MD on Jan 29 2024 5:06PM [facility] DIVISION OF RADIOLOGY * * *Final Report* [...] calcifications DIVISION OF RADIOLOGY Provider, Malini [facility] - 01/29/2024 * * *Final Report* [...] acute radiographic abnormality of the bilateral wrists Seat Mender: [facility] Transcribe Date/Time: Jan 29 2024 5:05P Dictated by : TOOTIE BERNARD MD This examination was interpreted and the report reviewed and electronically signed by: TOOTIE BERNARD MD on Jan 29 2024 5:06PM EST [facility] XR Wrist - bilateral PA and Lateral and ObliqueOrdered By: [facility]cf Provider on 01-29-2024 [facility] Absolute lymphocyte countOrd ered By: Kvng Jacobson on 01-28-2024 Lymphocytes Auto (Unsp spec) [#/Vol] 0.77 10*3/uL 0.83-4.51 [facility] Activated partial thrombopla stin time (aPTT) in platelet poor plasma by coagulation aOrdered By: Kvng Jacobson on 01-28-2024 aPTT Coag (PPP) [Time] 43.4 s 24.1-36.2 [facility] Automated lymphocyte count a s percentage of total leukocytesOrdered By: Kvng Jacobson on 01-28-2024 Lymphocytes/100 WBC Auto (Unsp spec) 4.6 % 19-41 [facility] Basophil percentageOrdered B y: Rubio Blanco on 01-28-2024 Basophil percentage 0 SEEN /hpf 0-5 [facility] Basophil percentageOrdered B y: Geeta White on 01-28-2024 Basophil percentage 2.2 mg/dL 2.5-4.9 [facility] Bilirubin [Mass/Vol] 0.90 mg/dL 0.20-1.00 [facility] Comment on above: For patients on eltr ombopag therapy, use of Dimension [place] TBIL is not recommended. Protein [Mass/Vol] 7.1 g/dL 6.4-8.2 [facility] Basophil percentageOrdered B y: Kvng Jacobson on 01-28-2024 Basophils/100 WBC (Bld) 0.1 % 0-1 [facility] Chloride [Moles/Vol] 96 mmol/L 98-107 [facility] Eosinophils/100 WBC (Bld) 0.0 % 0-5 [facility] Glucose [Mass/Vol] 262 mg/dL 74-106 [facility] Comment on above: Glucose result great er than or equal to 200 mg/dLsuggests DIABETES MELLITUS per A.D.A. criteria. Hemoglobin (Bld) [Mass/Vol] 10.7 g/dL 13.0-16.5 [facility] Monocytes/100 WBC (Bld) 2.2 % 0-10 [facility] Neutrophils (Bld) [#/Vol] 15.4 10*3/uL 2.0-7.7 [facility] Neutrophils/100 WBC (Bld) 91.9 % 47-70 [facility] Potassium [Moles/Vol] 4.3 mmol/L 3.5-5.1 [facility] Sodium [Moles/Vol] 129 mmol/L 136-145 [facility] WBC (Bld) [#/Vol] 16.8 10*3/uL 4.4-11.0 [facility] Bilirubin Test strip Ql (U)O rdered By: Rubio Simeon on 01-28-2024 Bilirubin Ql (U) Negative Negative [facility] Determination of erythrocyte mean corpuscular volume (MCV)Ordered By: Kvng Jacobson on 01-28-2024 MCV (RBC) [Entitic vol] 93.9 fL 80-94 [facility] Direct bilirubinOrdered By: Geeta Mendoza on 01-28-2024 Bilirubin.direct [Mass/Vol] 0.30 mg/dL 0.00-0.30 [facility] Erythrocyte distribution wid th ratioOrdered By: Kvng Jacobson on 01-28-2024 Erythrocyte distribution width (RBC) [Ratio] 11.7 % 11.6-14.6 [facility] Erythrocyte distribution wid th standard deviationOrdered By: Kvng Jacobson on 01-28-2024 Erythrocyte distribution width (RBC) [Entitic vol] 39.6 fL 35.1-43.9 [facility] Hematocrit Auto (Bld) [Volum e fraction]Ordered By: Kvng Jacobson on 01-28-2024 Hematocrit (Bld) [Volume fraction] 30.7 % 40-54 [facility] Immature granulocytes/100 WB C Auto (Bld)Ordered By: Kvng Jacobson on 01-28-2024 Immature granulocytes/100 WBC (Bld) 1.200 % 0.0-0.9 [facility] Comment on above: IG% - Immature Granu locytes (promyelocytes, myelocytes and metamyelocytes) > 1% indicates that a LEFT SHIFT is Present. Ketones Test strip Ql (U)Ord ered By: Rubio Simeon on 01-28-2024 Ketones Ql (U) Negative Negative [facility] Laboratory - Chemistry and C hemistry - challengeOrdered By: Geeta Mendoza on 01-28-2024 Sodium (U) [Moles/Vol] 50 mmol/L Not Establ. [facility] ALP [Catalytic activity/Vol] 104 U/L 45-117 [facility] ALT [Catalytic activity/Vol] 18 U/L 16-61 [facility] Globulin (S) [Mass/Vol] 3.9 g/dL 2.2-4.2 [facility] Magnesium [Mass/Vol] 1.6 mg/dL 1.6-2.6 [facility] - Chemistry and C hemistry - challengeOrdered By: Kvng Jacobson on 01-28-2024 CO2 [Moles/Vol] 23.0 mmol/L 21.0-32.0 [facility] Urea nitrogen/Creatinine [Mass ratio] 19.8 mg/mg 10-20 [facility] Laboratory - CoagulationOrde red By: Kvng Jacobson on 01-28-2024 INR Coag (Bld) [Relative time] 1.1 {INR} [facility] PT Coag (PPP) [Time] 13.8 s 11.7-14.9 [facility] - Hematology and Cell countsOrdered By: Kvng Jacobson on 01-28-2024 MCH (RBC) [Entitic mass] 32.7 pg 27.0-32.0 [facility] MCHC (RBC) [Mass/Vol] 34.9 g/dL 32-36 [facility] Nucleated RBC/100 WBC (Bld) [Ratio] 0 % 0-5 [facility] Platelet mean volume (Bld) [Entitic vol] 9.5 fL 6.2-12.0 [facility] Platelets (Bld) [#/Vol] 339 10*3/uL 150-450 [facility] Mucus LM Ql (Urine sed)Order ed By: Rubio Simeon on 01-28-2024 Mucus Ql (Urine sed) 0 SEEN /hpf [facility] Nitrite Test strip Ql (U)Ord ered By: Rubio Simeon on 01-28-2024 Nitrite Ql (U) Negative Negative [facility] No Panel InformationOrdered By: Rubio Simeon on 01-28-2024 Urine RBC 0 SEEN /hpf 0-5 [facility] D-Dimer Quantitative (PE/DVT) 1.70 FEU/ug/m 0.27-0.49 [facility] Comment on above: D-Dimer ELEVATED (>0 .49): Additional studies and clinicalassessments are indicated to conclude diagnosis of:Deep Vein Thrombosis (DVT) or Pulmonary Embolism (PE)CRITICAL VALUE VERIFIED. CALLED TO [id number] Aisha Pedroza.RESULTS READ BACK BY SAME . No Panel InformationOrdered By: Kvng Jacobson on 01-28-2024 Troponin I High Sensitivity 85190 pg/mL 3.0-78.0 [facility] Comment on above: Critical Result(s) C alled at: 21:09:53 01/28/2024 by: BRE GERBER TO NGOC. Results read back by same. Please Note: New Test Units and Gender Specific Reference Ranges. For more information see Policy Stat Procedure [place] High Sensitivity Troponin (TNIH) and attachments. Estimated Creatinine Clearance Calc 71.85 ml/min [facility] Estimated GFR (MDRD) Amer 84 mL/min >60 [facility] Comment on above: GFR Calc Estimated GFR (MDRD) Non-Af Amer 69 mL/min >60 [facility] Comment on above: Non- GFR Calc Protein Test strip Ql (U)Ord ered By: Rubio Simeon on 01-28-2024 Protein Ql (U) Negative Negative [facility] RBC Auto (Bld) [#/Vol]Ordere d By: Kvng Jacobson on 01-28-2024 RBC (Bld) [#/Vol] 3.27 10*6/uL 4.6-6.2 [facility] Serum or plasma calcium juany urement (mass/volume)Ordered By: Kvng Jacobson on 01-28-2024 Calcium [Mass/Vol] 9.6 mg/dL 8.5-10.1 [facility] Serum or plasma creatinine m easurement (mass/volume)Ordered By: Kvng Jacobson on 01-28-2024 Creatinine [Mass/Vol] 1.11 mg/dL 0.70-1.30 [facility] Comment on above: The validity of the calculated GFR & GFRAA in patients over 70 years has not been determined. Clinical correlation is essential. Serum or plasma urea nitroge n measurement (mass/volume)Ordered By: Kvng Jacobson on 01-28-2024 Urea nitrogen [Mass/Vol] 22 mg/dL 7-18 [facility] Serum procalcitonin measurem entOrdered By: Geeta Mendoza on 01-28-2024 Procalcitonin [Mass/Vol] 0.04 ng/mL 0.00-0.09 [facility] Comment on above: A procalcitonin (PCT [...] Ql (Urine sed) 0 SEEN /hpf 0-5 [facility] Thin prep Papanicolaou smear with manual screeningOrdered By: Geeta Mendoza on 01-28-2024 Thin prep Papanicolaou smear with manual screening 3.2 g/dL 3.2-5.0 [facility] Thin prep Papanicolaou smear with manual screening 14 U/L 15-37 [facility] Thin prep Papanicolaou smear with manual screeningOrdered By: Kvng Jacobson on 01-28-2024 Thin prep Papanicolaou smear with manual screening 10 5-15 [facility] Urine blood detectionOrdered By: Rubio Simeon on 01-28-2024 RBC Ql (U) Negative Negative [facility] Urine clarityOrdered By: Raven Simeon on 01-28-2024 Clarity (U) Clear Clear [facility] Urine color determinationOrd ered By: Rubio Simeon on 01-28-2024 Color (U) Yellow Yellow [facility] Urine creatinine measurement (mass/volume)Ordered By: Geeta Mendoza on 01-28-2024 Creatinine (U) [Mass/Vol] 20.80 mg/dL NO RANGE EST. [facility] Urine glucose detectionOrder ed By: Rubio Simeon on 01-28-2024 Glucose Ql (U) 50 mg/dl Normal [facility] Urine leukocyte esterase det ection by dipstickOrdered By: Rubio Simeon on 01-28-2024 Leukocyte esterase Test strip Ql (U) Negative Negative [facility] Urine osmolality measurement Ordered By: Geeta Mendoza on 01-28-2024 Osmolality (U) [Osmolality] 286 mOsm/KG >50 [facility] Comment on above: Normal Urine Referen ce Ranges Random: 50 - 1200 mOsm/kg H20 depending on fluid intake Random: >850 mOsm/kg after 12 hour fluid restriction 24 hour: ~300 - 900 mOsm/kg H2O Urine pHOrdered By: Rubio head on 01-28-2024 pH (U) 6.0 [pH] 5.0 - 8.0 [facility] Urine sediment bacteria coun t by microscopy (number/high power field)Ordered By: Rubio Simeon on 01-28-2024 Bacteria LM.HPF (Urine sed) [#/Area] 0 /[HPF] None Seen [facility] Urine specific gravity measu rementOrdered By: Rubio Simeon on 01-28-2024 Specific gravity (U) [Rel density] 1.010 1.002-1.030 [facility] Urine urobilinogen measureme ntOrdered By: Rubio Simeon on 01-28-2024 Urobilinogen Ql (U) Normal mg/dl Normal [facility] XR Wrist - bilateral PA and Lateral and Obliqueon 2024 Radiology Study observation (narrative) [facility] CTA ABD/PEL LOWER EXTREM W I VCONon 02-14-2023 [facility] CBC panel Auto (Bld)on 02-06 Erythrocyte distribution width (RBC) [Ratio] 11.3 % Low 11.5 - 15.0 % [facility] Hematocrit (Bld) [Volume fraction] 36.9 % Low 39.0 - 51.0 % [facility] Hemoglobin (Bld) [Mass/Vol] 13.2 g/dL 13.0 - 17.0 g/dL [facility] MCH (RBC) [Entitic mass] 34.0 pg 26.0 - 34.0 pg [facility] MCHC (RBC) [Mass/Vol] 35.8 g/dL 30.5 - 36.0 g/dL [facility] MCV (RBC) [Entitic vol] 95.1 fL 80.0 - 100.0 fL [facility] Nucleated RBC (Bld) [#/Vol] <0.01 k/uL [facility] Platelet mean volume (Bld) [Entitic vol] 9.9 fL 9.0 - 12.7 fL [facility] Platelets (Bld) [#/Vol] 208 10*3/uL 150 - 400 k/uL [facility] RBC (Bld) [#/Vol] 3.88 10*6/uL Low 4.20 - 6.0 0 m/uL [facility] WBC (Bld) [#/Vol] 4.16 10*3/uL 3.70 - 11. 00 k/uL [facility] Comprehensive metabolic 2000 panelon 02-06-2023 Albumin [Mass/Vol] 4.4 g/dL 3.9 - 4.9 g/dL [facility] ALP [Catalytic activity/Vol] 73 U/L 38 - 113 U/L [facility] ALT [Catalytic activity/Vol] 21 U/L 10 - 54 U/L [facility] Anion gap [Moles/Vol] 10 mmol/L 9 - 18 mmol/L [facility] AST [Catalytic activity/Vol] 25 U/L 14 - 40 U/L [facility] Bilirubin [Mass/Vol] 1.0 mg/dL 0.2 - 1 .3 mg/dL [facility] Calcium [Mass/Vol] 9.8 mg/dL 8.5 - 10. 2 mg/dL [facility] Chloride [Moles/Vol] 100 mmol/L 97 - 10 5 mmol/L [facility] CO2 [Moles/Vol] 23 mmol/L 22 - 30 mmol/L [facility] Creatinine [Mass/Vol] 0.64 mg/dL Low 0.73 - 1.22 mg/dL [facility] Estimated Glomerular Filtration Rate 101 mL/min/1.73m >=60 mL/min/1.73m [facility] Glucose [Mass/Vol] 174 mg/dL High 74 - 99 mg/dL [facility] Potassium [Moles/Vol] 4.5 mmol/L 3.7 - 5.1 mmol/L [facility] Protein [Mass/Vol] 7.0 g/dL 6.3 - 8.0 g/dL [facility] Sodium [Moles/Vol] 133 mmol/L Low 136 - 144 mmol/L [facility] Urea nitrogen [Mass/Vol] 11 mg/dL 9 - 24 mg/dL [facility] HbA1c (Bld)on 02-06-2023 Average glucose Estimated from glycated hemoglobin (Bld) [Mass/Vol] 169 mg/dL [facility] HbA1c (Bld) [Mass fraction] 7.5 % High 4.3 - 5.6 % [facility] Lipid 1996 panelon Cholesterol [Mass/Vol] 124 mg/dL <200 mg/dL [facility] Cholesterol in HDL [Mass/Vol] 69 mg/dL >39 mg/dL [facility] Cholesterol in LDL [Mass/Vol] 45 mg/dL <100 mg/dL [facility] Cholesterol in LDL/Cholesterol in HDL [Mass ratio] 0.65 {ratio} <2.54 [facility] Cholesterol in VLDL [Mass/Vol] 10 mg/dL <30 mg/dL [facility] Cholesterol non HDL [Mass/Vol] 55 mg/dL <130 mg/dL [facility] Cholesterol.total/Verna sterol in HDL [Mass ratio] 1.80 {ratio} <5.10 [facility] Fasting Time 14 hrs [facility] Triglyceride [Mass/Vol] 52 mg/dL <150 mg/dL [facility] CREATININE BLDon 01-15-2023 Creatinine [Mass/Vol] 0.81 mg/dL 0.73 - 1.22 mg/dL [facility] Estimated Glomerular Filtration Rate 95 mL/min/1.73m >=60 mL/min/1.73m [facility] ECG COMPLETEon 09-05-2022 Atrial Rate 60 BPM [facility] Calculated P [place] 38 degrees [facility] Calculated R Cal[place]so 3 degrees [facility] Calculated T [place] 39 degrees [facility] P-R Interval 204 ms [facility] QRS Duration 98 ms [facility] QT Interval 440 ms [facility] QTC Calculation (Bazett) 440 ms [facility] Ventricular Rate 60 BPM [facility] Absolute lymphocyte counton 05-30-2022 Lymphocytes Auto (Unsp spec) [#/Vol] 1.04 10*3/uL 0.83-4.51 [facility] Work Phone: Basophil percentageon 2021 Basophils/100 WBC (Bld) 0.5 % 0-1 [facility] Work Phone: Bilirubin [Mass/Vol] 1.40 mg/dL 0.20-1.00 [facility] Work Phone: Comment on above: For patients on eltr ombopag therapy, use of Dimension [place] TBIL is not recommended. Chloride [Moles/Vol] 103 mmol/L 98-107 [facility] Work Phone: Cholesterol [Mass/Vol] 104 mg/dL <200 [facility] Work Phone: Comment on above: <200 mg/dL Desirable 200-240 mg/dL Borderline >240 mg/dL High Risk Eosinophils/100 WBC (Bld) 0.7 % 0-5 [facility] Work Phone: Glucose [Mass/Vol] 109 mg/dL 74-106 [facility] Work Phone: Comment on above: Fasting Glucose resu lt from 100 to 125 mg/dL suggests IMPAIRED HOMEOSTASIS per A.D.A. criteria. Neutrophils (Bld) [#/Vol] 3.9 10*3/uL 2.0-7.7 [facility] Work Phone: Neutrophils/100 WBC (Bld) 69.3 % 47-70 [facility] Work Phone: Potassium [Moles/Vol] 3.6 mmol/L 3.5-5.1 [facility] Work Phone: Protein [Mass/Vol] 6.0 g/dL 6.4-8.2 [facility] Work Phone: Sodium [Moles/Vol] 134 mmol/L 136-145 [facility] Work Phone: Triglyceride [Mass/Vol] 93 mg/dL <199 [facility] Work Phone: Comment on above: The drugs N-Acetylcy steine and Metamizole may falsely depress this assay.Serum Triglycerides Reference Interval Normal <150 mg/dL Borderline high 150 - 199 mg/dL High 200 - 499 mg/dL Very High > or = 500 mg/dL WBC (Bld) [#/Vol] 5.6 10*3/uL 4.4-11.0 [facility] Work Phone: Blood erythrocytes count (nu mber/volume)on 05-30-2022 RBC (Bld) [#/Vol] 3.59 10*6/uL 4.6-6.2 [facility] Work Phone: Blood hemoglobin measurement (mass/volume)on 05-30-2022 Hemoglobin (Bld) [Mass/Vol] 12.0 g/dL 13.0-16.5 [facility] Work Phone: Blood lymphocytes/100 leukoc yteson 05-30-2022 Lymphocytes/100 WBC (Bld) 18.6 % 19-41 [facility] Work Phone: Blood monocytes/100 leukocyt eson 05-30-2022 Monocytes/100 WBC (Bld) 10.7 % 0-10 [facility] Work Phone: Blood platelet mean volumeon 05-30-2022 Platelet mean volume (Bld) [Entitic vol] 9.7 fL 6.2-12.0 [facility] Work Phone: Determination of erythrocyte mean corpuscular volume (MCV)on 05-30-2022 MCV (RBC) [Entitic vol] 95.0 fL 80-94 [facility] Work Phone: Glucose Glucometer (BldC) [M ass/Vol]on 05-30-2022 Glucose [Mass/Vol] 221 mg/dL 74-106 [facility] Work Phone: Comment on above: MANAGEMENT OF PATIEN T CARE PER NURSING PROTOCOL Hematocrit Auto (Bld) [Volum e fraction]on 05-30-2022 Hematocrit (Bld) [Volume fraction] 34.1 % 40-54 [facility] Work Phone: Laboratory - Chemistry and C hemistry - challengeon 05-30-2022 ALP [Catalytic activity/Vol] 57 U/L 45-117 [facility] Work Phone: ALT [Catalytic activity/Vol] 34 U/L 16-61 [facility] Work Phone: CO2 [Moles/Vol] 26.0 mmol/L 21.0-32.0 [facility] Work Phone: Globulin (S) [Mass/Vol] 2.5 g/dL 2.2-4.2 [facility] Work Phone: Urea nitrogen/Creatinine [Mass ratio] 18.6 mg/mg 10-20 [facility] Work Phone: Laboratory - Hematology and Cell countson 05-30-2022 Erythrocyte distribution width (RBC) [Entitic vol] 40.7 fL 35.1-43.9 [facility] Work Phone: Erythrocyte distribution width (RBC) [Ratio] 11.8 % 11.6-14.6 [facility] Work Phone: Immature granulocytes/100 WBC (Bld) 0.200 % 0.0-0.9 [facility] Work Phone: Comment on above: IG% - Immature Granu locytes (promyelocytes, myelocytes and metamyelocytes) > 1% indicates that a LEFT SHIFT is Present. MCH (RBC) [Entitic mass] 33.4 pg 27.0-32.0 [facility] Work Phone: Nucleated RBC/100 WBC (Bld) [Ratio] 0 % 0-5 [facility] Work Phone: MCHC Auto (RBC) [Mass/Vol]on 05-30-2022 MCHC (RBC) [Mass/Vol] 35.2 g/dL 32-36 [facility] Work Phone: No Panel Informationon 05-30 Estimated Creatinine Clearance Calc 70.97 ml/min [facility] Work Phone: Estimated GFR (MDRD) Amer 144 mL/min >60 [facility] Work Phone: Comment on above: GFR Calc Estimated GFR (MDRD) Non-Af Amer 119 mL/min >60 [facility] Work Phone: Comment on above: Non- GFR Calc Platelets bldon 05-30-2022 Platelets (Bld) [#/Vol] 194 10*3/uL 150-450 [facility] Work Phone: Serum or plasma albumin juany urement (mass/volume)on 05-30-2022 Albumin [Mass/Vol] 3.5 g/dL 3.2-5.0 [facility] Work Phone: Serum or plasma albumin/glob ulin mass ratioon 05-30-2022 Albumin/Globulin [Mass ratio] 1.4 {ratio} 0.9-2.4 [facility] Work Phone: Serum or plasma calcium juany urement (mass/volume)on 05-30-2022 Calcium [Mass/Vol] 8.7 mg/dL 8.5-10.1 [facility] Work Phone: Serum or plasma cholesterol in HDL measurement (mass/volume)on 05-30-2022 Cholesterol in HDL [Mass/Vol] 65 mg/dL >40 [facility] Work Phone: Comment on above: The drugs N-Acetylcy steine and Metamizole may falsely depress this assay. Reference Range HDL <40 mg/dL Low HDL Cholesterol HDL >or= 60 mg/dL High HDL Cholesterol Serum or plasma cholesterol in VLDL measurement (mass/volume)on 05-30-2022 Cholesterol in VLDL [Mass/Vol] 19 mg/dL 5-40 [facility] Work Phone: Serum or plasma creatinine m easurement (mass/volume)on 05-30-2022 Creatinine [Mass/Vol] 0.70 mg/dL 0.70-1.30 [facility] Work Phone: Comment on above: The validity of the calculated GFR & GFRAA in patients over 70 years has not been determined. Clinical correlation is essential. Serum or plasma low density lipoprotein (LDL) cholesterol measurement (mass/volume)on 05-30-2022 Cholesterol in LDL [Mass/Vol] 20 mg/dL 0-130 [facility] Work Phone: Serum or plasma urea nitroge n measurement (mass/volume)on 05-30-2022 Urea nitrogen [Mass/Vol] 13 mg/dL 7-18 [facility] Work Phone: Thin prep Papanicolaou smear with manual screeningon 05-30-2022 Thin prep Papanicolaou smear with manual screening 20 U/L 15-37 [facility] Work Phone: Thin prep Papanicolaou smear with manual screening 5 5-15 [facility] Work Phone: Whole blood hemoglobin A1c/t otal hemoglobin ratio (mass fraction)on 05-30-2022 HbA1c (Bld) [Mass fraction] 5.7 % 3.8-5.6 [facility] Work Phone: Comment on above: Normal < 5.7 % Predi abetic 5.7 - 6.4 % Diabetic >or= 6.5 % Please note range changes. Absolute lymphocyte counton 05-29-2022 Lymphocytes Auto (Unsp spec) [#/Vol] 0.97 10*3/uL 0.83-4.51 [facility] Work Phone: Basophil percentageon 2021 Basophils/100 WBC (Bld) 0.6 % 0-1 [facility] Work Phone: Chloride [Moles/Vol] 103 mmol/L 98-107 [facility] Work Phone: Eosinophils/100 WBC (Bld) 1.0 % 0-5 [facility] Work Phone: Glucose [Mass/Vol] 162 mg/dL 74-106 [facility] Work Phone: Comment on above: Fasting Glucose resu lt greater than or equal to 126 mg/dL suggests DIABETES MELLITUS per A.D.A. criteria. Neutrophils (Bld) [#/Vol] 3.3 10*3/uL 2.0-7.7 [facility] Work Phone: [phone] Neutrophils/100 WBC (Bld) 68.0 % 47-70 [facility] Work Phone: Potassium [Moles/Vol] 3.8 mmol/L 3.5-5.1 [facility] Work Phone: Comment on above: Slight Hemolysis, Re sult may be falsely increased. Sodium [Moles/Vol] 133 mmol/L 136-145 [facility] Work Phone: WBC (Bld) [#/Vol] 4.9 10*3/uL 4.4-11.0 [facility] Work Phone: Blood erythrocytes count (nu mber/volume)on 05-29-2022 RBC (Bld) [#/Vol] 3.57 10*6/uL 4.6-6.2 [facility] Work Phone: Blood hemoglobin measurement (mass/volume)on 05-29-2022 Hemoglobin (Bld) [Mass/Vol] 12.3 g/dL 13.0-16.5 [facility] Work Phone: Blood lymphocytes/100 leukoc yteson 05-29-2022 Lymphocytes/100 WBC (Bld) 19.8 % 19-41 [facility] Work Phone: Blood monocytes/100 leukocyt eson 05-29-2022 Monocytes/100 WBC (Bld) 10.4 % 0-10 [facility] Work Phone: Blood platelet mean volumeon 05-29-2022 Platelet mean volume (Bld) [Entitic vol] 9.5 fL 6.2-12.0 [facility] Work Phone: Determination of erythrocyte mean corpuscular volume (MCV)on 05-29-2022 MCV (RBC) [Entitic vol] 95.5 fL 80-94 [facility] Work Phone: Hematocrit Auto (Bld) [Volum e fraction]on 05-29-2022 Hematocrit (Bld) [Volume fraction] 34.1 % 40-54 [facility] Work Phone: Laboratory - Chemistry and C hemistry - challengeon 05-29-2022 CO2 [Moles/Vol] 24.0 mmol/L 21.0-32.0 [facility] Work Phone: Urea nitrogen/Creatinine [Mass ratio] 18.2 mg/mg 10-20 [facility] Work Phone: Laboratory - Hematology and Cell countson 05-29-2022 Erythrocyte distribution width (RBC) [Entitic vol] 41.2 fL 35.1-43.9 [facility] Work Phone: Erythrocyte distribution width (RBC) [Ratio] 11.7 % 11.6-14.6 [facility] Work Phone: Immature granulocytes/100 WBC (Bld) 0.200 % 0.0-0.9 [facility] Work Phone: Comment on above: IG% - Immature Granu locytes (promyelocytes, myelocytes and metamyelocytes) > 1% indicates that a LEFT SHIFT is Present. MCH (RBC) [Entitic mass] 34.5 pg 27.0-32.0 [facility] Work Phone: Nucleated RBC/100 WBC (Bld) [Ratio] 0 % 0-5 [facility] Work Phone: MCHC Auto (RBC) [Mass/Vol]on 05-29-2022 MCHC (RBC) [Mass/Vol] 36.1 g/dL 32-36 [facility] Work Phone: No Panel Informationon 05-29 Estimated Creatinine Clearance Calc 80.65 ml/min [facility] Work Phone: Estimated GFR (MDRD) Amer 110 mL/min >60 [facility] Work Phone: Comment on above: GFR Calc Estimated GFR (MDRD) Non-Af Amer 91 mL/min >60 [facility] Work Phone: Comment on above: Non- GFR Calc Troponin I High Sensitivity 21 pg/mL 3.0-78.0 [facility] Work Phone: Comment on above: Please Note: New Sylvia t Units and Gender Specific Reference Ranges. For more information see Policy Stat Procedure [place] High Sensitivity Troponin (TNIH) and attachments. Platelets bldon 05-29-2022 Platelets (Bld) [#/Vol] 171 10*3/uL 150-450 [facility] Work Phone: Serum or plasma calcium juany urement (mass/volume)on 05-29-2022 Calcium [Mass/Vol] 9.1 mg/dL 8.5-10.1 [facility] Work Phone: Serum or plasma creatinine m easurement (mass/volume)on 05-29-2022 Creatinine [Mass/Vol] 0.88 mg/dL 0.70-1.30 [facility] Work Phone: Comment on above: The validity of the calculated GFR & GFRAA in patients over 70 years has not been determined. Clinical correlation is essential. Serum or plasma urea nitroge n measurement (mass/volume)on 05-29-2022 Urea nitrogen [Mass/Vol] 16 mg/dL 7-18 [facility] Work Phone: Thin prep Papanicolaou smear with manual screeningon 05-29-2022 Thin prep Papanicolaou smear with manual screening 6 5-15 [facility] Work Phone: Vital Signs Date Time Vital Sign Value Performing Clinician Facility 05-07-2025 13:28-0400 Body height 177.[address] Sher Jules MD Work Phone: [phone] [place] [address] 05-07-2025 13:28-0400 Body mass index (BMI) [Ratio] 27.8 kg/m2 Dr. Sher Jules MD Work Phone: [phone] [place] [address] 05-07-2025 13:28-0400 Body weight 87.[address] Sher Jules MD Work Phone: [phone] [place] [address] 05-07-2025 13:28-0400 Diastolic blood pressure 71 mm[Hg] Dr. Sher Jules MD Work Phone: [phone] [place] [address] 05-07-2025 13:28-0400 Heart rate 57 /min Dr. Sher Jules MD Work Phone: [phone] [place] [address] 05-07-2025 13:28-0400 Respiratory rate 16 /min Dr. Sher Jules MD Work Phone: [phone] [place] [address] 05-07-2025 13:28-0400 SaO2% (BldA) [Mass fraction] 97 % Dr. Sher Jules MD Work Phone: [phone] [place] [address] 05-07-2025 13:28-0400 Systolic blood pressure 156 mm[Hg] Dr. Sher Jules MD Work Phone: [phone] [address] [place] [address] 05-06-2025 14:05-0400 Body height 177.[address] hSer Jules MD Work Phone: 6(588)585-516390 [place] [address] 05-06-2025 14:05-0400 Body mass index (BMI) [Ratio] 28.4 kg/m2 Dr. Sher Jules MD Work Phone: 9(231)062-197490 [place] [address] 05-06-2025 14:05-0400 Body weight 89.[address] Sher Jules MD Work Phone: 9(940)066-304390 [place] [address] 04-30-2025 00:39-0400 Body temperature 97.9 [degF] Dr. Sher Jules MD Work Phone: 4(578)872-109590 [place] [address] 04-30-2025 00:39-0400 Diastolic blood pressure 70 mm[Hg] Dr. Sher Jules MD Work Phone: 6(043)946-469790 [place] [address] 04-30-2025 00:39-0400 Heart rate 85 /min Dr. Sher Jules MD Work Phone: 2(156)007-148290 [place] [address] 04-30-2025 00:39-0400 Respiratory rate 22 /min Dr. Sher Jules MD Work Phone: 8(201)797-151490 [place] [address] 04-30-2025 00:39-0400 SaO2% (BldA) [Mass fraction] 95 % Dr. Sher Jules MD Work Phone: 7(766)223-440690 [place] [address] 04-30-2025 00:39-0400 Systolic blood pressure 148 mm[Hg] Dr. Sher Jules MD Work Phone: 2(913)832-610890 [place] [address] 04-29-2025 22:27-0400 Body height 177.[address] Sher Jules MD Work Phone: 0(098)630-860190 [place] [address] 04-29-2025 22:27-0400 Body mass index (BMI) [Ratio] 28 kg/m2 Dr. Sher Jules MD Work Phone: [facility] 04-29-2025 22:27-0400 Body weight 88.[address] Sher Jules MD Work Phone: [facility] 04-14-2025 09:31-0400 Diastolic blood pressure 69 mm[Hg] Nikos Rivera MD Work Phone: [facility] 04-14-2025 09:31-0400 Heart rate 55 /min Nikos Rivera MD Work Phone: [facility] 04-14-2025 09:31-0400 Respiratory rate 16 /min Nikos Rivera MD Work Phone: [facility] 04-14-2025 09:31-0400 SaO2% (BldA) [Mass fraction] 94 % Nikos Rivera MD Work Phone: [facility] 04-14-2025 09:31-0400 Systolic blood pressure 146 mm[Hg] Nikos Rivera MD Work Phone: [facility] 04-14-2025 07:46-0400 Body temperature 98.1 [degF] Nikos Rivera MD Work Phone: [facility] 04-06-2025 09:12-0400 Diastolic blood pressure 65 mm[Hg] Nargis Benavidesle DO Work Phone: [facility] 04-06-2025 09:12-0400 Heart rate 56 /min Nargis Yin DO Work Phone: [facility] 04-06-2025 09:12-0400 SaO2% (BldA) [Mass fraction] 96 % Nargis Yin DO Work Phone: [facility] 04-06-2025 09:12-0400 Systolic blood pressure 116 mm[Hg] Nargis Yin DO Work Phone: [facility] 02-11-2025 08:53-0400 Body height 177.[address] Sher Jules MD Work Phone: [facility] 02-11-2025 08:53-0400 Body mass index (BMI) [Ratio] 27.5 kg/m2 Dr. Sher Jules MD Work Phone: [facility] 02-11-2025 08:53-0400 Body weight 87.[address] Sher Jules MD Work Phone: [facility] 02-11-2025 08:53-0400 Diastolic blood pressure 72 mm[Hg] Dr. Sher Jules MD Work Phone: [facility] 02-11-2025 08:53-0400 Heart rate 60 /min Dr. Sher Jules MD Work Phone: 1(951)206-972690 [place] [address] 02-11-2025 08:53-0400 Respiratory rate 16 /min Dr. Sher Jules MD Work Phone: 7(776)835-065590 [place] [address] 02-11-2025 08:53-0400 Systolic blood pressure 134 mm[Hg] Dr. Sher Jules MD Work Phone: 9(411)913-212530 [place] [address] 11-20-2024 08:58-0500 Body weight 88.[address] Sher Jules MD Work Phone: [facility] 11-13-2024 13:11-0500 Body mass index (BMI) [Ratio] 27.52 kg/m2 Sher Jules MD Work Phone: [facility] 11-13-2024 13:11-0500 Body weight 87 kg Sher Jules MD Work Phone: [facility] 11-13-2024 13:11-0500 Diastolic blood pressure 62 mm[Hg] Sher Jules MD Work Phone: [facility] 11-13-2024 13:11-0500 Heart rate 60 /min Sher Jules MD Work Phone: [facility] 11-13-2024 13:11-0500 Respiratory rate 16 /min Sher Jules MD Work Phone: [facility] 11-13-2024 13:11-0500 SaO2% (BldA) [Mass fraction] 98 % Sher Jules MD Work Phone: [facility] 11-13-2024 13:11-0500 Systolic blood pressure 132 mm[Hg] Sher Jules MD Work Phone: [facility] 09-30-2024 15:45-0500 Heart rate 53 /min Sergei Collins MD Work Phone: [facility] 09-30-2024 15:45-0500 Respiratory rate 17 /min Sergei Collins MD Work Phone: [facility] 09-30-2024 15:00-0500 Diastolic blood pressure 62 mm[Hg] Sergei Collins MD Work Phone: [facility] 09-30-2024 15:00-0500 Systolic blood pressure 166 mm[Hg] Sergei Collins MD Work Phone: [facility] 09-30-2024 12:33-0500 Body temperature 98.1 [degF] Sergei Collins MD Work Phone: [facility] 09-30-2024 12:33-0500 SaO2% (BldA) [Mass fraction] 99 % Sergei Collins MD Work Phone: [facility] [employer] 09-30-2024 10:10-0500 Body height 177.8 cm Sergei Collins MD Work Phone: [facility] 09-30-2024 10:10-0500 Body mass index (BMI) [Ratio] 27.12 kg/m2 Sergei Collins MD Work Phone: [facility] 09-30-2024 10:10-0500 Body weight 85.73 kg Sergei Collins MD Work Phone: [facility] 09-16-2024 14:09-0500 Body height 177.8 cm Sergei Collins MD Work Phone: [facility] 09-16-2024 14:09-0500 Body mass index (BMI) [Ratio] 27.12 kg/m2 Sergei Collins MD Work Phone: [facility] 09-16-2024 14:09-0500 Body weight 85.73 kg Sergei Collins MD Work Phone: [facility] 09-16-2024 14:09-0500 Diastolic blood pressure 64 mm[Hg] Sergei Collins MD Work Phone: [facility] 09-16-2024 14:09-0500 Heart rate 45 /min Sergei Collins MD Work Phone: [facility] 09-16-2024 14:09-0500 Systolic blood pressure 114 mm[Hg] Sergei Collins MD Work Phone: [facility] 09-11-2024 11:03-0500 Diastolic blood pressure 68 mm[Hg] Sher Jules MD Work Phone: [facility] Comment on above: true BP 09-11-2024 11:03-0500 Systolic blood pressure 149 mm[Hg] Sher Jules MD Work Phone: [facility] Comment on above: true BP 09-11-2024 10:54-0500 Body height 177.8 cm Sher Jules MD Work Phone: [facility] 09-11-2024 10:54-0500 Body mass index (BMI) [Ratio] 27.81 kg/m2 Sher Jules MD Work Phone: [facility] 09-11-2024 10:54-0500 Body temperature 97.2 [degF] Sher Jules MD Work Phone: [facility] 09-11-2024 10:54-0500 Body weight 87.9 kg Sher Jules MD Work Phone: [facility] 09-11-2024 10:54-0500 Heart rate 46 /min Sher Jules MD Work Phone: [facility] 09-11-2024 10:54-0500 SaO2% (BldA) [Mass fraction] 99 % Sher Jules MD Work Phone: [facility] 04-07-2024 08:47-0400 Diastolic blood pressure 65 mm[Hg] Nargis Yin DO Work Phone: [facility] 04-07-2024 08:47-0400 Heart rate 45 /min Nargis Yin DO Work Phone: [facility] 04-07-2024 08:47-0400 SaO2% (BldA) [Mass fraction] 98 % Nargis Yin DO Work Phone: [facility] 04-07-2024 08:47-0400 Systolic blood pressure 142 mm[Hg] Nargis Yin DO Work Phone: [facility] 04-06-2024 13:24-0400 Body mass index (BMI) [Ratio] 29.98 kg/m2 Bib Patterson MD Work Phone: [facility] 04-06-2024 13:24-0400 Body weight 92.08 kg Bib Patterson MD Work Phone: [facility] 04-06-2024 13:24-0400 Diastolic blood pressure 62 mm[Hg] Bib Patterson MD Work Phone: [facility] 04-06-2024 13:24-0400 Heart rate 48 /min Bib Patterson MD Work Phone: [facility] 04-06-2024 13:24-0400 SaO2% (BldA) [Mass fraction] 99 % Bib Patterson MD Work Phone: [facility] 04-06-2024 13:24-0400 Systolic blood pressure 143 mm[Hg] Bib Patterson MD Work Phone: [facility] 04-06-2024 10:16-0400 Body height 175.3 cm Gem Bass MD Work Phone: [facility] 04-06-2024 10:16-0400 Body mass index (BMI) [Ratio] 30.04 kg/m2 Gem Bass MD Work Phone: [facility] 04-06-2024 10:16-0400 Body weight 92.26 kg Gem Bass MD Work Phone: [facility] 04-06-2024 10:16-0400 Diastolic blood pressure 68 mm[Hg] Gem Bass MD Work Phone: [facility] 04-06-2024 10:16-0400 Heart rate 45 /min Gem Bass MD Work Phone: [facility] 04-06-2024 10:16-0400 Respiratory rate 19 /min Gem Bass MD Work Phone: [facility] 04-06-2024 10:16-0400 SaO2% (BldA) [Mass fraction] 98 % Gem Bass MD Work Phone: [facility] 04-06-2024 10:16-0400 Systolic blood pressure 122 mm[Hg] Gme Bass MD Work Phone: [facility] 03-11-2024 10:47-0400 Body height 170.2 cm Sher Jules MD Work Phone: [facility] 03-11-2024 10:47-0400 Body mass index (BMI) [Ratio] 31.64 kg/m2 Sher Jules MD Work Phone: [facility] 03-11-2024 10:47-0400 Body temperature 97.59 [degF] Sher Jules MD Work Phone: [facility] 03-11-2024 10:47-0400 Body weight 91.63 kg Sher Jules MD Work Phone: [facility] 03-11-2024 10:47-0400 Diastolic blood pressure 52 mm[Hg] Sher Jules MD Work Phone: [facility] 03-11-2024 10:47-0400 Heart rate 48 /min Sher Jules MD Work Phone: [facility] 03-11-2024 10:47-0400 Respiratory rate 16 /min Sher Jules MD Work Phone: [facility] 03-11-2024 10:47-0400 Systolic blood pressure 108 mm[Hg] Sher Jules MD Work Phone: [facility] 02-19-2024 14:49-0400 Body mass index (BMI) [Ratio] 30.8 kg/m2 Dr. Sher Jules Work Phone: [facility] 02-19-2024 14:49-0400 Body weight 94.[address] Sher Jules Work Phone: [facility] 02-19-2024 14:49-0400 Diastolic blood pressure 68 mm[Hg] Dr. Sher Jules Work Phone: [facility] 02-19-2024 14:49-0400 Heart rate 84 /min Dr. Sher Jules Work Phone: [facility] 02-19-2024 14:49-0400 Respiratory rate 14 /min Dr. Sher Jules Work Phone: [facility] 02-19-2024 14:49-0400 SaO2% (BldA) [Mass fraction] 98 % Dr. Sher Jules Work Phone: [facility] 02-19-2024 14:49-0400 Systolic blood pressure 123 mm[Hg] Dr. Sher Jules Work Phone: [facility] 02-19-2024 14:44-0400 Body height 177.[address] Sher Jules Work Phone: [facility] 02-10-2024 14:57-0400 Body weight 94.8 kg Bib Patterson MD Work Phone: [facility] 02-10-2024 14:57-0400 Diastolic blood pressure 68 mm[Hg] Bib Patterson MD Work Phone: [facility] 02-10-2024 14:57-0400 Heart rate 84 /min Bib Patterson MD Work Phone: [facility] 02-10-2024 14:57-0400 SaO2% (BldA) [Mass fraction] 99 % Bib Patterson MD Work Phone: [facility] 02-10-2024 14:57-0400 Systolic blood pressure 123 mm[Hg] Bib Patterson MD Work Phone: [facility] 02-07-2024 13:35-0400 Body weight 93.76 kg Sher Jules MD Work Phone: [facility] 02-07-2024 13:35-0400 Diastolic blood pressure 64 mm[Hg] Sher Jules MD Work Phone: [facility] 02-07-2024 13:35-0400 Heart rate 56 /min Sher Jules MD Work Phone: [facility] 02-07-2024 13:35-0400 Respiratory rate 16 /min Sher Jules MD Work Phone: [facility] 02-07-2024 13:35-0400 SaO2% (BldA) [Mass fraction] 99 % Sher Jules MD Work Phone: [facility] 02-07-2024 13:35-0400 Systolic blood pressure 126 mm[Hg] Sher Jules MD Work Phone: [facility] 01-30-2024 12:10-0400 SaO2% (BldA) [Mass fraction] 98 % Dr. Sher Jules Work Phone: [facility] 01-30-2024 11:56-0400 Body temperature 98 [degF] Dr. Sher Jules Work Phone: [facility] 01-30-2024 11:56-0400 Diastolic blood pressure 74 mm[Hg] Dr. Sher Jules Work Phone: [facility] 01-30-2024 11:56-0400 Heart rate 59 /min Dr. Sher Jules Work Phone: [facility] 01-30-2024 11:56-0400 Respiratory rate 15 /min Dr. Sher Jules Work Phone: 3(168)250-535923 [place] [address] 01-30-2024 11:56-0400 Systolic blood pressure 137 mm[Hg] Dr. Sher Jules Work Phone: 9(496)450-031090 [place] [address] 01-30-2024 06:00-0400 Inhaled oxygen flow rate 2 L/min Dr. Sher Jules Work Phone: 3(025)500-548890 [place] [address] 01-30-2024 05:29-0400 Body mass index (BMI) [Ratio] 33.2 kg/m2 Dr. Sher Jules Work Phone: 1(714)988-208790 [place] [address] 01-30-2024 05:29-0400 Body weight 102.[address] Sher Jules Work Phone: 4(031)847-645690 [place] [address] 01-29-2024 11:54-0400 Body height 175.[address] Sher Jules Work Phone: 6(464)254-762390 [place] [address] 01-28-2024 22:00-0400 Diastolic blood pressure 55 mm[Hg] Dr. Sher Jules Work Phone: 8(130)660-409090 [place] [address] 01-28-2024 22:00-0400 Heart rate 82 /min Dr. Sher Jules Work Phone: 5(902)436-210490 [place] [address] 01-28-2024 22:00-0400 Inhaled oxygen flow rate 8 L/min Dr. Sher Jules Work Phone: 4(546)101-028990 [place] [address] 01-28-2024 22:00-0400 Respiratory rate 13 /min Dr. Sher Jules Work Phone: 1(839)813-967490 [place] [address] 01-28-2024 22:00-0400 SaO2% (BldA) [Mass fraction] 94 % Dr. Sher Jules Work Phone: 3(473)892-702190 [place] [address] 01-28-2024 22:00-0400 Systolic blood pressure 122 mm[Hg] Dr. Sher Jules Work Phone: 5(263)344-043390 [place] [address] 01-28-2024 18:57-0400 Body temperature 98.2 [degF] Dr. Sher Jules Work Phone: [facility] 01-28-2024 17:52-0400 Body height 177.[address] Sher Jules Work Phone: [facility] 01-28-2024 17:52-0400 Body mass index (BMI) [Ratio] 32.1 kg/m2 Dr. Sher Jules Work Phone: [facility] 01-28-2024 17:52-0400 Body weight 101.[address] Sher Jules Work Phone: [facility] 2024 14:58-0400 Body weight 99.34 kg Barb Maximo [employer]CH HAND MACHINE.ARCHEOLOGY PROFESSOR Work Phone: [facility] 2024 14:58-0400 Diastolic blood pressure 68 mm[Hg] Barb Maximo BENCH HAND MACHINE.ARCHEOLOGY PROFESSOR Work Phone: [facility] 2024 14:58-0400 Heart rate 70 /min Barb Maximo BENCH HAND MACHINE.ARCHEOLOGY PROFESSOR Work Phone: [facility] 2024 14:58-0400 Respiratory rate 14 /min Barb Maximo BENCH HAND MACHINE.ARCHEOLOGY PROFESSOR Work Phone: [facility] 2024 14:58-0400 Systolic blood pressure 136 mm[Hg] Barb Maximo BENCH HAND MACHINE.ARCHEOLOGY PROFESSOR Work Phone: [facility] 05-06-2023 15:18-0400 Body height 170.2 cm Bib Patterson MD Work Phone: [facility] 05-06-2023 15:18-0400 Body weight 101.24 kg Bib Patterson MD Work Phone: [facility] 05-06-2023 15:18-0400 Diastolic blood pressure 78 mm[Hg] Bib Patterson MD Work Phone: [facility] 05-06-2023 15:18-0400 Heart rate 59 /min Bib Patterson MD Work Phone: [facility] 05-06-2023 15:18-0400 SaO2% (BldA) [Mass fraction] 98 % Bib Patterson MD Work Phone: [facility] 05-06-2023 15:18-0400 Systolic blood pressure 156 mm[Hg] Bib Patterson MD Work Phone: [facility] 04-01-2023 10:21-0400 Body temperature 97.2 [degF] Trevor Robison MD Work Phone: [facility] 04-01-2023 10:21-0400 Body weight 101.7 kg Trevor Robison MD Work Phone: [facility] 04-01-2023 10:21-0400 Diastolic blood pressure 70 mm[Hg] Trevor Robison MD Work Phone: [facility] 04-01-2023 10:21-0400 Heart rate 60 /min Trevor Robison MD Work Phone: [facility] 04-01-2023 10:21-0400 SaO2% (BldA) [Mass fraction] 96 % Trevor Robison MD Work Phone: [facility] 04-01-2023 10:21-0400 Systolic blood pressure 132 mm[Hg] Trevor Robison MD Work Phone: [facility] 03-20-2023 14:11-0400 Diastolic blood pressure 56 mm[Hg] Thompson Monzon MD Work Phone: [facility] 03-20-2023 14:11-0400 Heart rate 60 /min Thompson Monzon MD Work Phone: [facility] 03-20-2023 14:11-0400 SaO2% (BldA) [Mass fraction] 95 % Thompson Monzon MD Work Phone: [facility] 03-20-2023 14:11-0400 Systolic blood pressure 140 mm[Hg] Thompson Monzon MD Work Phone: [facility] 02-06-2023 09:53-0400 Diastolic blood pressure 69 mm[Hg] Sher Jules MD Work Phone: [facility] 02-06-2023 09:53-0400 Heart rate 59 /min Sher Jules MD Work Phone: [facility] 02-06-2023 09:53-0400 Systolic blood pressure 154 mm[Hg] Sher Jules MD Work Phone: [facility] 02-06-2023 09:51-0400 Body weight 101.61 kg Sher Jules MD Work Phone: [facility] 02-06-2023 09:51-0400 Respiratory rate 16 /min Sher Jules MD Work Phone: [facility] 01-15-2023 09:03-0400 Body height 177.8 cm Nargis Yin DO Work Phone: [facility] 01-15-2023 09:03-0400 Body weight 102.51 kg Nargis Yin DO Work Phone: [facility] 01-15-2023 09:03-0400 Diastolic blood pressure 64 mm[Hg] Nargis Yin DO Work Phone: [facility] 01-15-2023 09:03-0400 Heart rate 60 /min Nargis Yin DO Work Phone: [facility] 01-15-2023 09:03-0400 SaO2% (BldA) [Mass fraction] 97 % Nargis Yin DO Work Phone: [facility] 01-15-2023 09:03-0400 Systolic blood pressure 132 mm[Hg] Nargis Yin DO Work Phone: [facility] 10-03-2022 13:16-0500 Diastolic blood pressure 70 mm[Hg] Jules Dukes MD Work Phone: [facility] 10-03-2022 13:16-0500 Systolic blood pressure 140 mm[Hg] Jules Dukes MD Work Phone: [facility] 10-03-2022 13:02-0500 Body height 177.8 cm Jules Dukes MD Work Phone: [facility] 10-03-2022 13:02-0500 Body weight 103.87 kg Jules Dukes MD Work Phone: [facility] 10-03-2022 13:02-0500 Heart rate 66 /min Jules Dukes MD Work Phone: [facility] 10-03-2022 13:02-0500 SaO2% (BldA) [Mass fraction] 96 % Jules Dukes MD Work Phone: [facility] 10-01-2022 09:21-0500 Body height 177.8 cm Trevor Robison MD Work Phone: [facility] 10-01-2022 09:21-0500 Body weight 104.78 kg Trevor Robison MD Work Phone: [facility] 10-01-2022 09:21-0500 Diastolic blood pressure 63 mm[Hg] Trevor Robison MD Work Phone: [facility] 10-01-2022 09:21-0500 Heart rate 75 /min Trevor Robison MD Work Phone: [facility] 10-01-2022 09:21-0500 Systolic blood pressure 124 mm[Hg] Trevor Robison MD Work Phone: [facility] 09-05-2022 15:24-0500 Body height 177.8 cm Jules Dukes MD Work Phone: [facility] 09-05-2022 15:24-0500 Body weight 106.14 kg Jules Dukes MD Work Phone: [facility] 09-05-2022 15:24-0500 Diastolic blood pressure 74 mm[Hg] Jules Dukes MD Work Phone: [facility] 09-05-2022 15:24-0500 Heart rate 66 /min Jules Dukes MD Work Phone: [facility] 09-05-2022 15:24-0500 Respiratory rate 16 /min Jules Dukes MD Work Phone: [facility] 09-05-2022 15:24-0500 SaO2% (BldA) [Mass fraction] 96 % Jules Dukes MD Work Phone: [facility] 09-05-2022 15:24-0500 Systolic blood pressure 186 mm[Hg] Jules Dukes MD Work Phone: [facility] 07-18-2022 09:46-0400 Diastolic blood pressure 70 mm[Hg] Barb Older [employer]ENCH HAND MACHINE.ARCHEOLOGY PROFESSOR Work Phone: [facility] 07-18-2022 09:46-0400 Heart rate 57 /min Barb Older BENCH HAND MACHINE.ARCHEOLOGY PROFESSOR Work Phone: [facility] 07-18-2022 09:46-0400 Systolic blood pressure 126 mm[Hg] Barb Older BENCH HAND MACHINE.ARCHEOLOGY PROFESSOR Work Phone: [facility] 07-18-2022 09:18-0400 Body temperature 96.91 [degF] Barb Older BENCH HAND MACHINE.ARCHEOLOGY PROFESSOR Work Phone: [facility] 07-18-2022 09:18-0400 Body weight 103.87 kg Barb Older BENCH HAND MACHINE.ARCHEOLOGY PROFESSOR Work Phone: [facility] 06-28-2022 10:55-0400 Diastolic blood pressure 67 mm[Hg] Mi Nurse Work Phone: [facility] 06-28-2022 10:55-0400 Heart rate 57 /min Mi Nurse Work Phone: [facility] 06-28-2022 10:55-0400 Systolic blood pressure 143 mm[Hg] Mi Nurse Work Phone: [facility] 06-11-2022 18:59-0400 Diastolic blood pressure 68 mm[Hg] Sher Jules MD Work Phone: [facility] 06-11-2022 18:59-0400 Heart rate 57 /min Sher Jules MD Work Phone: [facility] 06-11-2022 18:59-0400 Systolic blood pressure 172 mm[Hg] Shre Jules MD Work Phone: [facility] 06-11-2022 18:41-0400 Body temperature 97.3 [degF] Sher Jules MD Work Phone: [facility] 06-11-2022 18:41-0400 Body weight 105.14 kg Sher Jules MD Work Phone: [facility] 06-11-2022 18:41-0400 Respiratory rate 18 /min Sher Jules MD Work Phone: [facility] 05-30-2022 15:55-0400 Body temperature 98 [degF] Dr. Sher Julse Work Phone: [facility] Work Phone: 05-30-2022 15:55-0400 Diastolic blood pressure 63 mm[Hg] Dr. Sher Jules Work Phone: [facility] Work Phone: 05-30-2022 15:55-0400 Heart rate 83 /min Dr. Sher Jules Work Phone: [facility] Work Phone: 05-30-2022 15:55-0400 Respiratory rate 16 /min Dr. Sher Jules Work Phone: [facility] Work Phone: 05-30-2022 15:55-0400 SaO2% (BldA) [Mass fraction] 96 % Dr. Sher Jules Work Phone: [facility] Work Phone: 05-30-2022 15:55-0400 Systolic blood pressure 155 mm[Hg] Dr. Sher Jules Work Phone: [facility] Work Phone: 05-30-2022 09:36-0400 Body height 177.[address] Sher Jules Work Phone: [facility] Work Phone: 05-30-2022 09:36-0400 Body weight 104.[address] Sher Jules Work Phone: [facility] Work Phone: 05-30-2022 08:50-0400 Body mass index (BMI) [Ratio] 33 kg/m2 Dr. Sher Jules Work Phone: [facility] Work Phone: 05-30-2022 01:19-0400 Body height 177.8 cm [facility] Work Phone: 05-30-2022 01:19-0400 Body mass index (BMI) [Ratio] 33 kg/m2 [facility] Work Phone: 05-30-2022 01:19-0400 Body weight 104.6 kg [facility] Work Phone: 05-30-2022 00:47-0400 Body temperature 97.8 [degF] [facility] Work Phone: 05-30-2022 00:47-0400 Diastolic blood pressure 85 mm[Hg] [facility] Work Phone: 05-30-2022 00:47-0400 Heart rate 70 /min [facility] Work Phone: 05-30-2022 00:47-0400 Respiratory rate 16 /min [facility] Work Phone: 05-30-2022 00:47-0400 SaO2% (BldA) [Mass fraction] 94 % [facility] Work Phone: 05-30-2022 00:47-0400 Systolic blood pressure 171 mm[Hg] [facility] Work Phone: 03-27-2022 08:22-0400 Body height 172 cm Nargis Yin [employer] Work Phone: [facility] 03-27-2022 08:22-0400 Body weight 105.23 kg Nargis Yin DO Work Phone: [facility] 03-27-2022 08:22-0400 Diastolic blood pressure 58 mm[Hg] Nargis Yin DO Work Phone: [facility] 03-27-2022 08:22-0400 Heart rate 62 /min Nargis Yin DO Work Phone: [facility] 03-27-2022 08:22-0400 SaO2% (BldA) [Mass fraction] 96 % Nargis Yin DO Work Phone: [facility] 03-27-2022 08:22-0400 Systolic blood pressure 142 mm[Hg] Nargis Yin DO Work Phone: [facility] Encounters Encounter Date Encounter Type Care Provider Facility Start: 05-07-2025 End: 05-07-[address] Nic Rodriguez MD [facility] Work Phone: Start: 05-07-2025 End: 05-07-[address] Sher Jules MD Work Phone: [facility] Start: 05-06-2025 End: 05-06-[address] Nain Segundo MD [facility] Start: 05-06-2025 End: 05-06-[address] Sher Jules MD Work Phone: [facility] Start: 04-29-2025 End: 04-30-2025 Emergency department patient visit Dr. Sher Jules MD Work Phone: -Emergency Department Work Phone: Start: 04-22-2025 End: 04-22-2025 Patient encounter procedure Elvie Monterroso APRN.ARCHEOLOGY PROFESSOR Work Phone: General Surgery Comment on above: Gastritis and duoden itis (Primary Dx); Gastroesophageal reflux disease with esophagitis without hemorrhage; Adenomatous polyp of colon, unspecified part of colon Start: 04-22-2025 End: 04-22-2025 ambulatory SHER JULES Facility:[facility] Start: 04-14-2025 ambulatory SHER bhagat:[facility] Start: 04-14-2025 End: 04-14-2025 Subsequent hospital visit by physician Nikos Rivera MD Work Phone: Ambulatory Surgery Comment on above: Anemia, unspecified type [D64.9] Start: 04-06-2025 End: 04-06-2025 Patient encounter procedure Nargis Yin DO Work Phone: Vascular Surgery Comment on above: Peripheral arterial disease (Primary Dx) Start: 04-06-2025 End: 04-06-2025 ambulatory NARGIS YIN Facility:[facility] Start: 04-01-2025 End: 04-01-2025 Follow-up encounter Sher Jules MD Work Phone: Internal Medicine [place] Start: 03-31-2025 End: 03-31-2025 ambulatory SHER JULES Facility:[facility] Start: 03-18-2025 End: 03-18-2025 ambulatory ELVIE MONTERROSO Facility:[facility] Start: 03-16-2025 End: 03-16-2025 ambulatory SHER JULES Facility:[facility] Start: 03-16-2025 End: 03-16-2025 ambulatory SHER JULES Facility:[facility] Start: 03-16-2025 Patient encounter procedure BARB SUGGS [facility] Start: 03-15-2025 End: 03-15-2025 ambulatory SHER JULES Facility:[facility] Start: 03-12-2025 Non-patient / Non-visit Naz MONAHAN -[facility] Work Phone: Start: 03-12-2025 ambulatory Naz Cox Facility: [facility] Start: 03-11-2025 Non-patient / Non-visit Dr. Rubio head MD -[facility] Start: 03-11-2025 End: 03-11-[address] Sher Jules MD Work Phone: [facility] Work Phone: Start: 03-11-2025 End: 03-11-[address] Rubio Simeon MD -Cardiovascular Services Work Phone: Start: 03-11-2025 End: 03-11-2025 ambulatory Rubio [facility] Facility:[facility] Start: 03-04-2025 End: 03-04-2025 Refill Bib [...] Start: 02-23-2025 End: 02-23-2025 ambulatory GOMEZ MCCABEMIGUEL Facility:[facility] Start: 02-11-2025 End: 02-11-[address] Rubio Simeon MD -[facility] Work Phone: Start: 02-11-2025 End: 02-11-2025 ambulatory Sher Jules Facility:[facility] Start: 02-01-2025 End: 02-01-2025 Refill Sher Jules MD Work Phone: Internal Medicine [place] Comment on above: Refill Request Start: 12-08-2024 ambulatory [facility] Facility:[facility] Start: 11-20-2024 End: 11-27-2024 ambulatory [facility] Facility:[facility] Start: 11-20-2024 End: 11-27-[address] Rubio Simeon MD -Cardiac Rehab Work Phone: Start: 11-19-2024 End: 11-19-2024 ambulatory SHER JULES Facility:[facility] Start: 11-19-2024 End: 11-19-2024 Patient encounter procedure Gomez Schwab Work Phone: Podiatry Comment on above: Onychomycosis (Prima ry Dx); Pain in toe of left foot; Pain in toe of right foot; Diabetic polyneuropathy associated with type 2 diabetes mellitus (HCC); PAD (peripheral artery disease) (HCC) Start: 11-13-2024 End: 11-13-2024 Office outpatient visit 25 minutes Sher Jules MD Work Phone: Internal Medicine [place] Comment on above: Diabetic peripheral neuropathy (HCC) (Primary Dx); Essential hypertension; Anemia, unspecified type; Well controlled type 2 diabetes mellitus with neurological manifestations (HCC); S/P drug eluting coronary stent placement Start: 11-13-2024 End: 11-13-2024 ambulatory SHER JULES Facility:[facility] Start: 11-11-2024 End: 11-11-2024 ambulatory Palak Rosales LPN Internal [facility] [place] Start: 10-26-2024 End: 10-27-2024 ambulatory Rubio Blanco Facility:[facility] Start: 10-19-2024 End: 10-20-2024 Orders Only Sher Jules MD Work Phone: Internal Medicine [place] Comment on above: Hyponatremia (Primar y Dx); Anemia, unspecified type Start: 10-14-2024 ambulatory Karl Wan Facility:[facility] Start: 10-14-2024 End: 10-14-2024 ambulatory Rubio Blanco Facility:[facility] Start: 10-12-2024 End: 10-12-2024 ambulatory Tootie Chu [employer] ADMINISTRATOR Facility:[facility] Start: 10-12-2024 End: 10-12-2024 ambulatory Tootie Chu CITY ADMINISTRATOR Facility:[facility] Start: 10-06-2024 End: 10-06-2024 ambulatory SHER JULES Facility:[facility] Start: 09-30-2024 End: 09-30-2024 Orders Only Xochitl Solano APRN - ARCHEOLOGY PROFESSOR Work Phone: [facility] Comment on above: Coronary artery dise ase involving hamilton coronary artery of hamilton heart without angina pectoris (Primary Dx); Primary hypertension Stented coronary art martina (Primary Dx); Coronary artery disease involving hamilton coronary artery of hamilton heart without angina pectoris; Angina pectoris, unstable (CMS/HCC) (HCC) Start: 09-29-2024 End: 09-29-2024 ambulatory Bárbara Burton APRZunilda Wihteside CNP Work Phone: [facility] Start: 09-28-2024 End: 09-28-2024 ambulatory Rubio Blanco Facility:[facility] Start: 09-23-2024 End: 09-23-2024 ambulatory Rubio Blanco Facility:[facility] Start: 09-16-2024 End: 09-16-2024 Office outpatient new 45 minutes Sergei Collins MD Work Phone: [facility] Comment on above: Shortness of breath (Primary Dx); Coronary artery disease involving hamilton coronary artery of hamilton heart without angina pectoris; Stented coronary artery; S/P CABG x 3; Family history of chronic ischemic heart disease; Diabetes mellitus type 2 in nonobese (CMS/HCC) ([facility]); Primary hypertension; Mixed hyperlipidemia Start: 09-16-2024 End: 09-16-2024 ambulatory SERGEI KARINA [facility] Start: 09-15-2024 End: 09-15-2024 Telephone encounter Sher Jules MD Work Phone: Internal Medicine [place] Comment on above: Medication Update Start: 09-14-2024 End: 09-15-2024 Telephone encounter Sher Jules MD Work Phone: Internal Medicine [place] Comment on above: Results Start: 09-14-2024 End: 09-14-2024 ambulatory Rubio Blanco Facility:[facility] Start: 09-13-2024 End: 09-13-2024 Orders Only Sher Jules MD Work Phone: Internal Medicine [place] Comment on above: Hyponatremia (Primar y Dx); Hyperkalemia; Anemia, unspecified type Start: 09-11-2024 End: 09-11-2024 ambulatory SHER JULES Facility:[facility] Start: 09-11-2024 End: 09-11-2024 Office outpatient visit 25 minutes Sher Jules MD Work Phone: Internal Medicine [place] Comment on above: Coronary artery dise ase involving hamilton coronary artery of hamilton heart without angina pectoris (Primary Dx); Stented coronary artery; Essential hypertension; Hyperlipidemia with target LDL less than 70; Well controlled type 2 diabetes mellitus with neurological manifestations (HCC) Start: 07-03-2024 ambulatory Sher Jules Facili ty:[facility] Start: 07-02-2024 End: 07-03-2024 Refill Barb Suggs APRN.ARCHEOLOGY PROFESSOR Work Phone: Internal Medicine [place] Comment on above: Refill Request Start: 06-30-2024 [...] Start: 06-26-2024 End: 06-26-2024 ambulatory GOMEZ SCHWAB Facility:[facility] Start: 06-23-2024 End: 06-23-2024 ambulatory Sher Jules Facility:[facility] Start: 06-16-2024 End: 06-16-2024 Refill Barb Suggs APRN.ARCHEOLOGY PROFESSOR Work Phone: Internal Medicine [place] Comment on above: Refill Request Start: 06-08-2024 ambulatory Sher Jules Facili ty:[facility] Start: 06-08-2024 End: 06-08-2024 ambulatory Sher Jules Facility:[facility] Start: 06-07-2024 ambulatory Sher Jules Facili ty:[facility] Start: 05-28-2024 End: 05-28-2024 ambulatory Sher Jules Facility:[facility] Start: 05-27-2024 End: 05-27-2024 ambulatory Sher Jules Facility:[facility] Start: 04-07-2024 End: 04-07-2024 Patient encounter procedure Nargis Yin DO Work Phone: Vascular Surgery Comment on above: Peripheral arterial disease (HCC) (Primary Dx) Start: 04-06-2024 End: 04-06-2024 Patient encounter procedure Bib Patterson MD Work Phone: Cardiology Comment on above: Essential hypertensi on (Primary Dx); Hyperlipidemia with target LDL less than 70; Hx of CABG; Coronary artery disease involving hamilton coronary artery of hamilton heart without angina pectoris Start: 04-06-2024 End: 04-06-2024 Patient encounter procedure Gem Bass MD Work Phone: General Surgery Comment on above: Special screening fo r malignant neoplasms, colon; History of colonic polyps; Coronary artery disease involving hamilton coronary artery of hamilton heart, unspecified whether angina present Start: 03-13-2024 End: 03-13-2024 Patient encounter procedure Gomez Schwab Work Phone: Podiatry Comment on above: Onychomycosis (Prima ry Dx); Pain in toe of left foot; Pain in toe of right foot; PAD (peripheral artery disease) (HCC); Diabetic polyneuropathy associated with type 2 diabetes mellitus (HCC) Start: 03-12-2024 [facility] ili:[facility] Start: 03-12-2024 [facility] Start: 03-12-2024 End: 03-12-2024 Subsequent hospital visit by physician [facility] 1 [facility] Work Phone: Cardiology Lab Comment on above: CORONARY ARTERIOSCLE ROSIS Start: 03-12-2024 End: 03-12-2024 Subsequent hospital visit by physician [facility] 2 Work Phone: Molecular Imaging Comment on [...] artery disease) (HCC); Coronary artery disease involving hamilton coronary artery of hamilton heart without angina pectoris; Hyperlipidemia with target LDL less than 70; Benign neoplasm of colon, unspecified part of colon Start: 02-25-2024 Refill Sher lea MD Work Phone: Internal Medicine [place] Comment on above: Refill Request Start: 02-24-2024 End: 02-25-[address] Sher Jules Work Phone: [facility] Work Phone: Start: 02-24-2024 End: 02-25-[address] Sher Jules Work Phone: [facility]-Cardiac Rehab Work Phone: Start: 02-24-[address] Jaylon Jules Work Phone: [facility]-Cardiac Rehab Work Phone: Start: 02-19-2024 End: 02-19-[address] Sher Jules Work Phone: [facility] Work Phone: Start: 02-19-2024 End: 02-19-[address] Sher Jules Work Phone: [facility]-Cardiac Rehab Work Phone: Start: 02-10-2024 End: 02-10-2024 Patient encounter procedure Bib Patterson MD Work Phone: Cardiology Comment on above: Coronary arterioscle rosis after percutaneous transluminal coronary angioplasty (PTCA) (Primary Dx); Essential hypertension; PAD (peripheral artery disease) ([facility]) Start: 02-07-2024 End: 02-07-2024 Patient encounter procedure Sher Jules MD Work Phone: Internal [facility] Comment on above: Non-STEMI (non-ST el evated myocardial infarction) ([facility]) (Primary Dx); S/P CABG x 3; Essential hypertension; Hyperlipidemia with target LDL less than 70; Well controlled type 2 diabetes mellitus with neurological manifestations (HCC); PAD (peripheral artery disease) (HCC); Abnormality of lung on CXR; Obesity, Class I, BMI 30-34.9 Start: 02-03-2024 Admission to [facility] Sher Jules MD Work Phone: Ambulatory Surgery Comment on above: colorectal cancer sc reening Start: 02-03-2024 ambulatory Sher lea MD Work Phone: Ambulatory Surgery Start: 01-31-2024 Patient Outreach Sher ace MD Work Phone: Internal Medicine [place] Comment on above: Transition Of Care Start: 01-30-2024 Telephone encounter Bib Patterson MD Work Phone: Cardiology Comment on above: PT HOSPITALIZED Start: 01-30-2024 Non-patient / Non-visit Dr. Maria E Jules Work Phone: [facility] Start: 01-30-2024 Non-patient / Non-visit Dr. Maria E Jules Work Phone: [facility] Inpatient Physicians Work Phone: Start: 01-29-2024 Non-patient / Non-visit Dr. Maria E Jules Work Phone: [facility] Inpatient Physicians Work Phone: Start: 01-29-2024 Non-patient / Non-visit Dr. Maria E Jules Work Phone: [facility] Start: 01-28-2024 End: 01-30-2024 Evaluation and management of inpatient Dr. Sher Jules Work Phone: [facility]-Intensive Care Unit Work Phone: Start: 01-28-2024 Non-patient / Non-visit Dr. Maria E Jules Work Phone: [facility] Inpatient Physicians Work Phone: Start: [...] ambulatory Veronica Sierra [facility] Comment on above: Population Health Na [facility] Out[facility] ([facility] [facility] [facility]) Start: 08-09-2023 End: 08-09-2023 Patient encounter procedure Sher Jules MD Work Phone: Internal Medicine [place] Comment on above: Obesity, Class II, B VA 35-39.9 (Primary Dx); Coronary artery disease involving hamilton coronary artery of hamilton heart without angina pectoris; PAD (peripheral artery [...] disease (Primary Dx); Coronary artery disease involving hamilton coronary artery of hamilton heart without angina pectoris; Hx of CABG; [...] 04-01-2023 End: 04-01-2023 Patient encounter procedure Trevor Robison MD Work [...] End: 02-14-2023 Subsequent hospital visit by physician [facility] Comment on above: Peripheral vascular disease (HCC) [I73.9] Start: 02-06-2023 End: 02-06-2023 Patient encounter procedure Sher Jules MD Work Phone: Internal Medicine [place] Comment on above: Well controlled type 2 diabetes mellitus with neurological manifestations (HCC) (Primary Dx); Essential hypertension; Hyperlipidemia with target LDL less than 70; PAD (peripheral artery disease) (HCC) Start: 02-04-2023 Telephone encounter Sher armas MD Work Phone: Internal Medicine [place] Comment on above: Med Change Request Start: 01-31-2023 Patient Msg [facility] Provider Internal Medicine [place] Comment on above: Refill request Start: 01-30-2023 Refill Barb Older BENCH HAND MACHINE .ARCHEOLOGY PROFESSOR Work Phone: [facility] [place] Comment on above: Refill Request Start: 01-16-2023 Refill Barb Older BENCH HAND MACHINE .ARCHEOLOGY PROFESSOR Work Phone: [facility] Medicine [place] Comment on above: Refill Request Start: 01-15-2023 [...] Medication Request Start: 10-23-2022 Refill Tara Older BENCH HAND MACHINE .ARCHEOLOGY PROFESSOR Work Phone: Internal Medicine [place] Comment on above: Refill Request Start: 10-10-2022 ambulatory Veronica Sierra [facility] Comment on above: Population Health Na vigation Outreach ([facility]O CELINE [facility]) Start: 10-03-2022 End: 10-03-2022 Patient encounter procedure Jules Dukes MD Work Phone: Cardiology Comment on above: Primary hypertension (Primary Dx); Coronary artery disease involving hamilton coronary artery of hamilton heart without angina pectoris; Hx of CABG; PAD (peripheral artery disease) (HCC) Start: 10-01-2022 End: 10-01-2022 Patient encounter procedure Trevor Robison MD Work Phone: Neurology Comment on above: 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) Start: 09-24-2022 End: 09-24-2022 ambulatory Kathie Garcia APRN.CREPING MACHINE OPERATOR HELPER Work Phone: Internal Medicine [place] Comment on above: COVID-19 virus infec tion (Primary Dx) Start: 09-24-2022 End: 09-24-2022 Telemedicine consultation with patient Kathie Garcia APRN.CREPING MACHINE OPERATOR HELPER Work Phone: [facility] Start: 09-11-2022 End: [...] on above: Coronary artery dise ase involving hamilton coronary artery of hamilton heart without angina pectoris (Primary Dx); Essential hypertension; S/P CABG x 3; Central retinal artery occlusion of left eye Start: 07-18-2022 End: 07-18-2022 Patient encounter procedure Barb Leon APRNBradARCHEOLOGY PROFESSOR Work Phone: Internal Medicine [place] Comment on above: Essential hypertensi on (Primary [...] Sher lea MD Work Phone: Internal Medicine [place] Comment on above: Refill Request Start: 06-11-2022 End: 06-11-2022 Patient encounter procedure Sher Jules MD Work Phone: Internal Medicine [place] Comment on above: Hyperlipidemia with target LDL less than 70 (Primary Dx); Essential hypertension; Well controlled type 2 diabetes mellitus with neurological manifestations (HCC); Branch retinal artery occlusion, left; S/P CABG x 3 Start: 06-05-2022 Telephone encounter Sher armas MD Work Phone: Internal [facility] Comment on above: Appointment Start: 05-30-2022 Non-patient / Non-visit Dr. Maria E Jules Work Phone: [facility] Start: 05-30-2022 Non-patient / Non-visit Dr. Maria E Jules Work Phone: [facility] Inpatient Physicians Start: 05-30-2022 End: 05-30-2022 Evaluation and management of inpatient [facility] Start: 05-29-2022 Telephone encounter Sher armas MD Work Phone: [facility] Comment on above: Dr. Christian gil (Clinical Ob) Start: 05-02-2022 End: 05-02-2022 Patient encounter procedure [...] Refill Sher lea MD Work Phone: Internal [facility] Comment on above: Refill Request Procedures Date Procedure Procedure Detail Performing Clinician Start: 05-06-2025 Plain x-ray of hand Dr. Sher Jules MD Work Phone: Start: 04-29-2025 CT of head without contrast Dr. Sher Jules MD Work Phone: Start: 04-14-2025 Colonoscopy flx dx w/collj spec when pfrmd Elvie Monterroso BENCH HAND MACHINE.ARCHEOLOGY PROFESSOR Work Phone: Start: 04-14-2025 Esophagogastroduodenoscopy transoral diagnostic Elvie Monterroso BENCH HAND MACHINE.ARCHEOLOGY PROFESSOR Work Phone: Start: 04-14-2025 Gluc bld gluc [...] serum plasma/whole blood Lawanda on B Pul[place] BENCH HAND MACHINE - ARCHEOLOGY PROFESSOR Work Phone: Start: 09-16-2024 Ecg routine ecg w/least 12 lds w/i&r Sergei Collins MD Work Phone: Start: 03-12-2024 Myocardial spect multiple studies Bib Patterson MD Work Phone: Start: 03-11-2024 Adult depression screening assessment Barb Suggs BENCH HAND MACHINE.ARCHEOLOGY PROFESSOR Work Phone: Start: 01-28-2024 CT angiography of chest with contrast Dr. Sher Jules Work Phone: Start: 01-28-2024 Plain chest X-ray Dr. Sher Jules Work Phone: Start: 2024 Radex wrist complete minimum 3 views Barb Suggs BENCH HAND MACHINE.ARCHEOLOGY PROFESSOR Work Phone: Start: 10-31-2023 Cul bact xcpt urine blood/stool aerobic isol Gomez Testke Work Phone: Start: 02-14-2023 Cta abdl aorta&bi iliofem w/contrast&postp Nargis D Yin DO Work Phone: Start: 09-05-2022 Ecg routine ecg w/least 12 lds i&r only [facility] Provider Start: 07-18-2022 INFLUENZA SEASONAL QUADRIVALENT HIGH DOSE AGE 65+ Barb Older BENCH HAND MACHINE.ARCHEOLOGY PROFESSOR Work Phone: Start: 07-18-2022 Adult depression screening assessment Barb Older BENCH HAND MACHINE.ARCHEOLOGY PROFESSOR Work Phone: Start: 05-30-2022 MRI of brain [...] artery bypass graft x 3 Dr. Sher Jules Work Phone: History of coronary artery bypass [...] DTaP/Tdap/Td Vaccines (3 - Td or Tdap) [facility] Start: 08-04-2032 [facility]albumin [facility] Start: 04-14-2030 Screening for malignant neoplasm of colon [facility] Start: 04-06-2026 BP Controlled (<130/80) BP Controlled (<130/80) [facility] inic Start: 04-05-2026 End: 04-05-2026 Patient encounter procedure Vasculary Ramirez mario Comment on above: Peripheral arterial disease [I73.9] 1 year follow up aft er testing Start: 03-29-2026 Glaucoma screening Dilated Retinal Exam [facility] Start: 03-18-2026 BP Controlled (<130/80) BP Controlled (<130/80) [facility] inic Start: 03-17-2026 Screening for malignant neoplasm of colon Fecal Occult Blood [facility] Start: 03-16-2026 Annual PCP Team Chronic Disease Visit Annual PCP Team Chronic Disease Visit [facility] Start: 03-16-2026 Anxiety Screening Anxiety Screening [facility] Start: 03-16-2026 Depression Screening Depression Screening [facility] Start: 03-16-2026 Medicare Annual Wellness Visit Medicare Annual Wellness Visit [facility] Start: 11-13-2025 Annual PCP Team Chronic Disease Visit Annual PCP Team Chronic Disease Visit [facility] Start: 09-16-2025 End: 09-16-2025 Patient encounter procedure 09/16/2025 9:40 AM EST Office Visit [facility] [place] [address] [place] [id number] Sher Jules MD [address] [place] [address] follow up 6 months [facility] [place] Comment on above: follow up 6 months Start: 09-15-2025 Hemoglobin A1c measurement HbA1C [facility] Start: 09-11-2025 Annual PCP Team Chronic Disease Visit Annual PCP Team Chronic Disease Visit [facility] Start: 09-11-2025 Diabetes: Urine Albumin-Creatinine Ratio for [facility] Diabetes: Urine Albumin-Creatinine Ratio for [facility] Start: 09-11-2025 Diabetic foot examination Diabetic Foot Exam [facility] Start: 09-11-2025 Hemoglobin A1c measurement Diabetes: Hemoglobin A1C [facility] Start: 09-11-2025 Hepatitis B screening Urine Albumin:Creatinine Ratio [facility] Start: 09-11-2025 Hepatitis B surface antibody level LDL Cholesterol [facility] Start: 05-28-2025 End: 05-28-2025 Patient encounter procedure 05/28/2025 10:00 AM EDT Office Visit Podiatry [address] [place] [address] Gomez Schwab [address] [place] [address] 3 month follow up nail care Podiatry Comment on above: 3 month follow up nail care Start: 05-06-2025 Plain x-ray of hand Hand Min 3 Views [facility] Start: 05-06-2025 XR Hand GE 3 Views [facility] Start: 04-30-2025 [facility] Start: 04-29-2025 Simple rpr scalp/neck/ax/genit/trunk 7.6-12.5cm RPR S/N/AX/GEN/TRK7.6-12.5CM [facility] Start: 04-22-2025 End: 04-22-2025 Patient encounter procedure 04/22/2025 10:30 AM EDT Office Visit General Surgery [address] [place] [address] Elvie Monterroso, BOBBY.ARCHEOLOGY PROFESSOR [address] [place] [address] 04-14 EGD & Colonoscopy follow up General Surgery Comment on above: 04-14 EGD & Colonoscopy follow up Start: 04-14-2025 End: 04-14-2025 Patient encounter procedure 04/14/2025 10:30 AM EDT Appointment Ambulatory Surgery [address] [place] [address] Nikos Rivera MD [address] [place] [address] Cardiac clearance recieved Ambulatory Surgery Comment on above: Cardiac clearance recieved Start: 04-06-2025 End: 04-06-2025 Patient encounter procedure Vasculary [facility] Comment on above: Peripheral arterial disease (HCC) [I73.9 ] 1 year follow up Start: 03-27-2025 Glaucoma screening Dilated Retinal Exam [facility] Start: 03-18-2025 Screening for malignant neoplasm of colon Colorectal Cancer Screening [facility] Start: 03-16-2025 End: 03-16-2025 Patient encounter procedure 03/16/2025 10:00 AM EDT Office Visit Internal Medicine [place] [address] [place] [address] Barb Suggs, BENCH HAND MACHINE.ARCHEOLOGY PROFESSOR [address] [place] [address] wellness visit [facility] [place] Comment on above: wellness visit Start: 03-11-2025 Annual PCP Team Chronic Disease Visit Annual PCP Team Chronic Disease Visit [facility] Start: 03-11-2025 Anxiety Screening Anxiety Screening [facility] Start: 03-11-2025 BP Controlled (<130/80) BP Controlled (<130/80) [facility] Start: 03-11-2025 Depression Screening Depression Screening [facility] Start: 03-11-2025 Hemoglobin A1c measurement HbA1C [facility] mal Start: 03-01-2025 End: 05-31-2025 Basic metabolic 2000 panel - Serum or Plasma BASIC METABOLIC PANEL Lab Routine Well controlled type 2 diabetes mellitus with neurological manifestations (HCC) Expected: 03/01/2025, Expires: 05/31/2025 [facility] Comment on above: Expected: 03/01/2025, Expires: Start: 03-01-2025 End: 05-31-2025 CBC panel - Blood by Automated count COMPLETE BLOOD COUNT Lab Routine Anemia, unspecified type Expected: 03/01/2025, Expires: 05/31/2025 [facility] Work Phone: Comment on above: Expected: 03/01/2025, Expires: Start: 03-01-2025 End: 05-31-2025 Hemoglobin A1c in Blood HEMOGLOBIN A1C Lab Routine Well controlled type 2 diabetes mellitus with neurological manifestations (HCC) Expected: 03/01/2025, Expires: 05/31/2025 [facility] Comment on above: Expected: 03/01/2025, Expires: Start: 02-23-2025 End: 02-23-2025 Patient encounter procedure Podiatry Comment on above: 3 month follow up Start: 02-09-2025 BP Controlled (<130/80) BP Controlled (<130/80) [facility] Start: 02-06-2025 Annual PCP Team Chronic Disease Visit Annual PCP Team Chronic Disease Visit [facility] Start: 02-06-2025 BP Controlled (<130/80) BP Controlled (<130/80) [facility] Start: 01-26-2025 Annual PCP Team Chronic Disease Visit Annual PCP Team Chronic Disease Visit [facility] Start: 11-19-2024 End: 11-19-2024 Patient encounter procedure 11/19/2024 11:15 AM EST Office Visit Podiatry [address] [place] [address] Gomez Schwab [address] [address] Regular check up and nail trim Podiatry Comment on above: Regular check up and nail trim Start: 11-16-2024 End: 11-16-2024 Patient encounter procedure 11/16/2024 8:40 AM EST Office Visit Cardiology [address] [place] [phone] Bib Patterson MD [address], [address] [place] [address] 6 month follow up Cardiology Comment on above: 6 month follow up Start: 11-13-2024 End: 11-13-2024 Patient encounter procedure 11/13/2024 1:20 PM EST Office Visit [facility] [place] [address] [place] [address] Sher Jules MD [address] [place] [address] Patient Outreach, follow-up - BP, 2 stents placed [facility] [place] Comment on above: Patient Outreach, follow-up - BP, 2 sten ts placed Start: 11-02-2024 End: 02-01-2025 Basic metabolic 2000 panel - Serum or Plasma BASIC METABOLIC PANEL Lab Routine Hyponatremia Expected: 11/02/2024, Expires: 02/01/2025 [facility] Comment on above: Expected: 11/02/2024, Expires: Start: 11-02-2024 End: 02-01-2025 CBC panel - Blood by Automated count COMPLETE BLOOD COUNT Lab Routine Anemia, unspecified type Expected: 11/02/2024, Expires: 02/01/2025 [facility] Work Phone: Comment on above: Expected: 11/02/2024, Expires: Start: 10-28-2024 Advance Directive Discussion Advance Directive Discussion [facility] Start: 10-07-2024 End: 09-30-2025 Basic metabolic 1998 panel - Serum or Plasma Basic metabolic panel Lab Routine Coronary artery disease involving hamilton coronary artery of hamilton heart without angina pectoris Primary hypertension Expected: 10/07/2024 (Approximate), Expires: 09/30/2025 [facility] Work Phone: Comment on above: Expected: 10/07/2024 (Approximate), Expi res: 09/30/2025 Start: 10-07-2024 End: 09-30-2025 CBC W Auto Differential panel - Blood CBC auto differential Lab Routine Coronary artery disease involving hamilton coronary artery of hamilton heart without angina pectoris Primary hypertension Expected: 10/07/2024 (Approximate), Expires: 09/30/2025 [facility] Comment on above: Expected: 10/07/2024 (Approximate), Expi res: 09/30/2025 Start: 10-02-2024 End: 10-02-2024 Patient encounter procedure Podiatry Comment on above: 3 month follow up nail care Start: 09-30-2024 End: 09-30-2024 Admission to same day surgery center 09/30/2024 11:00 AM EST - 09/30/2024 12:00 PM EST Surgery [facility] [address] [place] [id number] Sergei Collins MD [address] [place] [id number] Left heart cath / coronary angiography w grafts [facility] Comment on above: Left heart cath / coronary angiography w grafts Start: 09-30-2024 Subsequent hospital visit by physician [facility] Comment on above: Coronary artery disease involving hamilton coronary artery of hamilton heart without angina pectoris Start: 09-27-2024 End: 12-27-2024 Basic metabolic 2000 panel - Serum or Plasma BASIC METABOLIC PANEL Lab Routine Hyponatremia Hyperkalemia Expected: 09/27/2024, Expires: 12/27/2024 [facility] Comment on above: Expected: 09/27/2024, Expires: Start: 09-27-2024 End: 12-27-2024 CBC panel - Blood by Automated count COMPLETE BLOOD COUNT Lab Routine Anemia, unspecified type Expected: 09/27/2024, Expires: 12/27/2024 [facility] Work Phone: Comment on above: Expected: 09/27/2024, Expires: Start: 09-27-2024 End: 12-27-2024 Cobalamin (Vitamin B12) [Mass/volume] in Serum or Plasma VITAMIN B12 Lab Routine Anemia, unspecified type Expected: 09/27/2024, Expires: 12/27/2024 [facility] Comment on above: Expected: 09/27/2024, Expires: Start: 09-27-2024 End: 12-27-2024 Cortisol [Mass/volume] in Serum or Plasma CORTISOL, SERUM Lab Routine Hyperkalemia Expected: 09/27/2024, Expires: 12/27/2024 [facility] Comment on above: Expected: 09/27/2024, Expires: Start: 09-27-2024 End: 12-27-2024 Osmolality of Serum or Plasma OSMOLALITY Lab Routine Hyponatremia Expected: 09/27/2024, Expires: 12/27/2024 [facility] Comment on above: Expected: 09/27/2024, Expires: Start: 09-27-2024 End: 12-27-2024 Osmolality of Urine OSMOLALITY URINE Lab Routine Hyponatremia Expected: 09/27/2024, Expires: 12/27/2024 [facility] Comment on above: Expected: 09/27/2024, Expires: Start: 09-27-2024 End: 12-27-2024 PROTEIN ELECTROPHORESIS SERUM W/INTERP PROTEIN ELECTROPHORESIS SERUM W/INTERP Lab Routine Anemia, unspecified type Expected: 09/27/2024, Expires: 12/27/2024 [facility] Comment on above: Expected: 09/27/2024, Expires: Start: 09-27-2024 End: 12-27-2024 Sodium [Moles/volume] in Urine collected for unspecified duration SODIUM RANDOM URINE Lab Routine Hyponatremia Expected: 09/27/2024, Expires: 12/27/2024 [facility] Comment on above: Expected: 09/27/2024, Expires: Start: 09-16-2024 End: 09-16-2025 Basic metabolic 1998 panel - Serum or Plasma Basic metabolic panel Lab Routine Coronary artery disease involving hamilton coronary artery of hamilton heart without angina pectoris Expected: 09/16/2024 (Approximate), Expires: 09/16/2025 [facility] Work Phone: Comment on above: Expected: 09/16/2024 (Approximate), Expi res: 09/16/2025 Start: 09-16-2024 End: 09-16-2025 CBC panel - Blood by Automated count CBC Lab Routine Coronary artery disease involving hamilton coronary artery of hamilton heart without angina pectoris Expected: 09/16/2024 (Approximate), Expires: 09/16/2025 [facility] Comment on above: Expected: 09/16/2024 (Approximate), Expi res: 09/16/2025 Start: 09-11-2024 End: 12-11-2024 CBC panel - Blood by Automated count [facility] Work Phone: Comment on above: Expected: 09/11/2024, Expires: Start: 09-11-2024 End: 12-11-2024 Comprehensive metabolic 2000 panel - Serum or Plasma [facility] Comment on above: Expected: 09/11/2024, Expires: Start: 09-11-2024 End: 12-11-2024 Hemoglobin A1c in Blood [facility] Comment on above: Expected: 09/11/2024, Expires: Start: 09-11-2024 End: 12-11-2024 LIPID PANEL, NONFASTING [facility] Comment on above: Expected: 09/11/2024, Expires: Start: 09-11-2024 End: 12-11-2024 Microalbumin/Creatinine [Mass Ratio] in Urine [facility] Comment on above: Expected: 09/11/2024, Expires: Start: 09-11-2024 End: 09-11-2024 Patient encounter procedure 09/11/2024 11:00 AM EST Office Visit [facility] [place] [address] [facility] [place] [address] Sher Jules MD [address] [facility] [place] [address] 6 mo f/u [facility] [place] Comment on above: 6 mo f/u Start: 08-09-2024 Annual PCP Team Chronic Disease Visit Annual PCP Team Chronic Disease Visit [facility] Start: 08-06-2024 Diabetes: Estimated Glomerular Filtration Rate for Kidney Health Diabetes: Estimated Glomerular Filtration Rate for Kidney Health [facility] Start: 06-28-2024 [facility] Start: 06-26-2024 End: 06-26-2024 Patient encounter procedure 06/26/2024 1:00 PM EDT Office Visit Podiatry [address] [place] [address] Gomez Schwab [address] [place], [place] [phone] 3 month follow up nail care Podiatry Comment on above: 3 month follow up nail care Start: 06-01-2024 End: 06-01-2024 Patient encounter procedure 06/01/2024 10:00 AM EDT Office Visit Cardiology [address] [place] [phone] Bib Patterson MD [address], [address] [place], [place] [id number] 1 YEAR OFFICE VISIT Cardiology Comment on above: 1 YEAR OFFICE VISIT Start: 04-07-2024 End: 04-07-2024 Patient encounter procedure Vasculary Ramirez mario Comment on above: Peripheral arterial disease (HCC) [I73.9 ] [address] testing Start: 04-06-2024 End: 04-06-2024 Patient encounter procedure 04/06/2024 1:20 PM EDT Office Visit Cardiology [address] [place] [phone] Bib Patterson MD [address], [address] [place] [address] follow up NM stress test per Dr. Patterson Cardiology Comment on above: follow up NM stress test per Dr. Patterson Start: 03-24-2024 End: 03-24-2024 Patient encounter procedure 03/24/2024 10:30 AM EDT Office Visit [facility] [address] [facility] [place] [place] [phone] Nikos Rivera MD [address] [phone] Special screening for malignant neoplasms, colon [Z12.11] General Surgery Comment on above: Special screening for malignant neoplasm s, colon [Z12.11] Start: 03-22-2024 ANNUAL PCP TEAM CHRONIC DISEASE VISIT ANNUAL PCP TEAM CHRONIC DISEASE VISIT [facility] Start: 03-22-2024 BP CONTROLLED (<130/80) BP CONTROLLED (<130/80) [facility] Start: 03-13-2024 End: 03-13-2024 Patient encounter procedure 03/13/2024 3:20 PM EDT Office Visit Podiatry [address] [place], [place] [phone] Gomez Schwab [address] [facility] [place] [address] 3 month follow up nail care Podiatry Comment on above: 3 month follow up nail care Start: 03-12-2024 Subsequent hospital visit by physician 03/12/2024 8:15 AM EDT Hospital Encounter Cardiology Lab [address] [place], [place] [phone] CORONARY ARTERIOSCLEROSIS Cardiology Lab Comment on above: CORONARY ARTERIOSCLEROSIS Start: 03-12-2024 End: 03-12-2024 Patient encounter procedure 03/12/2024 7:15 AM EDT Appointment Molecular Imaging [address] [place] [phone] CORONARY ARTERIOSCLEROSIS,NM CARDIAC PERF STRESS/PHARM, order in epic Molecular Imaging Comment on above: CORONARY ARTERIOSCLEROSIS,NM CARDIAC PER F STRESS/PHARM, order in epic Start: 03-11-2024 End: 03-11-2025 NM Heart Perfusion W stress and W radionuclide IV NM CARDIAC PERF STRESS/PHARM Radiology Routine 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) Expected: 03/11/2024, Expires: 03/11/2025 [facility] Work Phone: Comment on above: Expected: 03/11/2024, Expires: Start: 03-11-2024 End: 03-11-2024 Patient encounter procedure 03/11/2024 10:20 AM EDT Office Visit Internal Medicine [place] [address] [place], [place] [phone] Sher Jules MD [address] [place] [address] Medicare Wellness, pt needs colonoscopy [facility] [place] Comment on above: Medicare Wellness, pt needs colonoscopy Start: 02-19-2024 Patient referral to dietitian [facility] Start: 02-08-2024 End: 04-09-2024 ALBUMIN/CREAT RATIO RND UR ALBUMIN/CREAT RATIO RND UR Lab Routine Well controlled type 2 diabetes mellitus with neurological manifestations (HCC) Expected: 02/08/2024, Expires: 04/09/2024 [facility] Work Phone: Comment on above: Expected: 02/08/2024, Expires: Start: 02-08-2024 End: 04-09-2024 CBC panel - Blood by Automated count CBC Lab Routine Essential hypertension Expected: 02/08/2024, Expires: 04/09/2024 [facility] Work Phone: Comment on above: Expected: 02/08/2024, Expires: Start: 02-08-2024 End: 04-09-2024 Comprehensive metabolic 2000 panel - Serum or Plasma COMP METABOLIC PANEL Lab Routine Hyperlipidemia with target LDL less than 70 Expected: 02/08/2024, Expires: 04/09/2024 [facility] Work Phone: Comment on above: Expected: 02/08/2024, Expires: 4 Start: 02-08-2024 End: 04-09-2024 Hemoglobin A1c in Blood HGB A1C Lab Routine Well controlled type 2 diabetes mellitus with neurological manifestations (HCC) Expected: 02/08/2024, Expires: 04/09/2024 [facility] Work Phone: Comment on above: Expected: 02/08/2024, Expires: 4 Start: 02-08-2024 End: 04-09-2024 Lipid 1996 panel - Serum or Plasma LIPID PANEL BASIC Lab Routine Hyperlipidemia with target LDL less than 70 Expected: 02/08/2024, Expires: 04/09/2024 [facility] Work Phone: Comment on above: Expected: 02/08/2024, Expires: 4 Start: 02-07-2024 3 comp foot exam completed DIABETIC FOOT EXAM [facility] Start: 02-07-2024 ANNUAL PCP TEAM CHRONIC DISEASE VISIT ANNUAL PCP TEAM CHRONIC DISEASE VISIT [facility] Start: 02-07-2024 Diabetic foot examination Diabetic Foot Exam [facility] Start: 02-07-2024 Hepatitis B screening URINE ALBUMIN:CREATININE RATIO [facility] Start: 02-07-2024 Hepatitis B surface antibody level LDL CHOLESTEROL [facility] Start: 02-05-2024 Hemoglobin A1c measurement HbA1C [facility] Start: 02-05-2024 Hemoglobin A1c/Hemoglobin.total in Blood HbA1C [facility] Start: 01-30-2024 Patient referral [facility] Work Phone: Start: 01-30-2024 Patient discharge [facility] Start: 01-29-2024 Ambulation without limitation [facility] Start: 01-29-2024 Cardiac monitoring [facility] Start: 01-29-2024 Cardiac rehabilitation - phase 1 [facility] Start: 01-29-2024 Cardiac rehabilitation - phase 2 [facility] Start: 01-29-2024 Notification of physician [facility] Start: 01-29-2024 Patient discharge [facility] Start: 01-29-2024 Taking patient vital signs [facility] Start: 01-29-2024 Vascular disease risk assessment [facility] Start: 01-29-2024 Vital signs measurements [facility] Start: 01-29-2024 End: 01-29-2024 [facility] Start: 01-28-2024 Following clinical pathway protocol [facility] Start: 01-28-2024 Measurement of occult blood in stool specimen using immunoassay [facility] Start: 01-28-2024 Application of elastic bandage [facility] Start: 01-28-2024 Assessment of risk of venous thromboembolism [facility] Start: 01-28-2024 Care regimes management [facility] Start: 01-28-2024 Continuous pulse oximetry [facility] Start: 01-28-2024 Elevation of head of bed [facility] Start: 01-28-2024 Incentive spirometry [facility] Start: 01-28-2024 Inhalation therapy procedure [facility] Start: 01-28-2024 Insertion of catheter into peripheral vein [facility] Start: 01-28-2024 Introduction of urinary catheter [facility] Start: 01-28-2024 Measuring intake and output [facility] Start: 01-28-2024 Notification of physician [facility] Start: 01-28-2024 Oxygen therapy [facility] Start: 01-28-2024 Patient referral to dietitian [facility] Start: 01-28-2024 Providing care according to standard [facility] Start: 01-28-2024 Provision of activity privileges [facility] Start: 01-28-2024 Referral to tannery gummer [facility] Start: 01-28-2024 Referral to service [facility] Start: 01-28-2024 Vital signs measurements [facility] Start: 01-28-2024 [facility] Start: 01-28-2024 Chart related administrative procedure [facility] Start: 01-28-2024 Hospital admission, emergency, from emergency room, medical nature [facility] Start: 01-28-2024 Creatinine [Mass/volume] in Urine collected for unspecified duration [facility] Start: 01-28-2024 Electrocardiographic procedure [facility] Start: 01-28-2024 Measurement of occult blood in stool specimen using immunoassay [facility] Start: 01-28-2024 Osmolality of Urine [facility] Start: 01-28-2024 Sodium [Moles/volume] in Urine [facility] Start: 01-28-2024 Verification routine [facility] Start: 01-28-2024 Admission procedure [facility] Start: 01-28-2024 Catheterization of vein [facility] Start: 01-28-2024 Medication not administered [facility] Start: 01-28-2024 [facility] Start: 01-28-2024 [facility] Start: 12-02-2023 Colonoscopy COLONOSCOPY [facility] Start: 12-02-2023 COLORECTAL CANCER SCREENING COLORECTAL CANCER SCREENING [facility] Start: 12-02-2023 Screening for malignant neoplasm of colon [facility] Start: 10-28-2023 Advance Directive Discussion Advance Directive Discussion [facility] Start: 10-28-2023 Behavioral Health Screening Behavioral Health Screening [facility] Start: 10-28-2023 Depression Assessment Depression Assessment [facility] Start: 10-26-2023 Glaucoma screening Dilated Retinal Exam [facility] Start: 10-26-2023 Hepatitis C antibody, confirmatory test DILATED RETINAL EXAM [facility] Start: 10-01-2023 BP CONTROLLED (<130/80) BP CONTROLLED (<130/80) [facility] in Start: 08-08-2023 End: 10-08-2023 Basic metabolic 2000 panel - Serum or Plasma BASIC METABOLIC PNL Lab Routine Well controlled type 2 diabetes mellitus with neurological manifestations (HCC) Expected: 08/08/2023, Expires: 10/08/2023 [facility] Work Phone: Comment on above: Expected: 08/08/2023, Expires: Start: 08-08-2023 End: 10-08-2023 Hemoglobin A1c in Blood HGB A1C Lab Routine Well controlled type 2 diabetes mellitus with neurological manifestations (HCC) Expected: 08/08/2023, Expires: 10/08/2023 [facility] Work Phone: Comment on above: Expected: 08/08/2023, Expires: 3 Start: 08-08-2023 Hemoglobin A1c/Hemoglobin.total in Blood HBA1C [facility] Start: 07-18-2023 Adult depression screening assessment DEPRESSION SCREENING [facility] Start: 07-18-2023 ANNUAL PCP TEAM CHRONIC DISEASE VISIT ANNUAL PCP TEAM CHRONIC DISEASE VISIT [facility] Start: 07-18-2023 BP CONTROLLED (<130/80) BP CONTROLLED (<130/80) [facility] in Start: 07-18-2023 SHINGRIX VACCINE (3 of 3) SHINGRIX VACCINE (3 of 3) [facility] Comment on above: Postponed from 05/10/2018 (Declined at t his time) Start: 06-28-2023 Influenza vaccination [facility] Start: 06-11-2023 ANNUAL PCP TEAM CHRONIC DISEASE VISIT ANNUAL PCP TEAM CHRONIC DISEASE VISIT [facility] Start: 03-19-2023 Hepatitis B surface antibody level LDL CHOLESTEROL [facility] Start: 02-20-2023 ANNUAL PCP TEAM CHRONIC DISEASE VISIT ANNUAL PCP TEAM CHRONIC DISEASE VISIT [facility] Start: 02-20-2023 BP CONTROLLED (<130/80) BP CONTROLLED (<130/80) [facility] Start: 02-20-2023 Urine microalbumin profile DTAP,TDAP,TD (2 - Tdap) [facility] Comment on above: Postponed from 03/19/2018 (Declined at t his time) Start: 02-06-2023 End: 04-08-2023 ALBUMIN/CREAT RATIO RND UR [facility] Work Phone: Comment on above: Expected: 02/06/2023, Expires: 3 Start: 10-28-2022 ADVANCE DIRECTIVE DISCUSSION ADVANCE DIRECTIVE DISCUSSION [facility] Start: 10-28-2022 DEPRESSION ASSESSMENT DEPRESSION ASSESSMENT [facility] Start: 10-26-2022 Hepatitis C antibody, confirmatory test DILATED RETINAL EXAM [facility] Start: 09-19-2022 Hemoglobin A1c/Hemoglobin.total in Blood HBA1C [facility] Start: 07-18-2022 End: 09-17-2022 ALBUMIN/CREAT RATIO RND UR ALBUMIN/CREAT RATIO RND UR Lab Routine Well controlled type 2 diabetes mellitus with neurological manifestations (HCC) Expected: 07/18/2022, Expires: 09/17/2022 [facility] Work Phone: Comment on above: Expected: 07/18/2022, Expires: 2 Start: 06-30-2022 3 comp foot exam completed DIABETIC FOOT EXAM [facility] Start: 06-28-2022 Influenza vaccination INFLUENZA (#1) [facility] Start: 05-30-2022 Patient discharge [facility] Work Phone: Start: 05-30-2022 Assessment of risk of venous thromboembolism [facility] Work Phone: Start: 05-30-2022 Cardiac monitoring [facility] Work Phone: Start: 05-30-2022 Care regimes management [facility] Work Phone: Start: 05-30-2022 Catheterization of vein [facility] Work Phone: Start: 05-30-2022 Elevation of head of bed [facility] Work Phone: Start: 05-30-2022 Exercises [facility] Work Phone: Start: 05-30-2022 Implementation of planned interventions [facility] Work Phone: Start: 05-30-2022 Insertion of catheter into peripheral vein [facility] Work Phone: Start: 05-30-2022 Measuring intake and output [facility] Work Phone: Start: 05-30-2022 Notification of physician [facility] Work Phone: Start: 05-30-2022 Oxygen therapy [facility] Work Phone: Start: 05-30-2022 Patient referral to dietitian [facility] Work Phone: Start: 05-30-2022 Providing care according to standard [facility] Work Phone: Start: 05-30-2022 Referral to occupational therapist [facility] Work Phone: Start: 05-30-2022 Referral to service [facility] Work Phone: Start: 05-30-2022 Speech therapy assessment [facility] Work Phone: Start: 05-30-2022 Tobacco use cessation education [facility] Work Phone: Start: 05-30-2022 [facility] Work Phone: Start: 05-30-2022 Following clinical pathway protocol [facility] Work Phone: Start: 05-30-2022 Admission procedure [facility] Work Phone: Start: 05-29-2022 Oxygen therapy [facility] Work Phone: Start: 05-29-2022 [facility] Work Phone: Start: 05-23-2022 Hepatitis B screening URINE ALBUMIN:CREATININE RATIO [facility] Start: 03-15-2022 Hemoglobin A1c/Hemoglobin.total in Blood HBA1C [facility] Start: 02-23-2022 Adult depression screening assessment DEPRESSION SCREENING [facility] Start: 11-21-2021 Hepatitis B surface antibody level LDL CHOLESTEROL [facility] Start: 10-28-2021 DEPRESSION ASSESSMENT DEPRESSION ASSESSMENT [facility] Start: 05-10-2018 SHINGRIX VACCINE (3 of 3) SHINGRIX VACCINE (3 of 3) [facility] Start: 02-01-2016 FECAL OCCULT BLOOD FECAL OCCULT BLOOD [facility] Start: 02-01-2016 Screening for malignant neoplasm of colon Fecal Occult Blood [facility] Start: 2012 Hepatitis B Vaccine (1 of 3 - Risk 3-dose series) Hepatitis B Vaccine (1 of 3 - Risk 3-dose series) [facility] Start: 2012 RSV Vaccine (1 - 1-dose 60+ series) RSV Vaccine (1 - 1-dose 60+ series) [facility] Start: 01-26-1997 COLOGUARD (FIT-DNA) COLOGUARD (FIT-DNA) [facility] Start: 01-26-[address] COLONOGRAPHY [facility] Start: 01-26-1997 Screening for malignant neoplasm of colon [facility] Start: 01-26-1997 SIGMOIDOSCOPY SIGMOIDOSCOPY [facility] Start: 01-26-1970 Hepatitis C screening Hepatitis C Screening [facility] Start: 1964 Depression Screening Depression Screening [facility] Start: 01-26-1962 Diabetic foot examination Diabetes: Foot Exam [facility] Start: 01-26-1962 Glaucoma screening Diabetes: Retinopathy Screening [facility] Start: 01-26-1962 Preventive dental service Diabetes: Dental Exam [facility] Start: 1950 Lipid panel Lipid Panel [facility] Start: 1950 Medicare Annual Wellness (AWV) Medicare Annual Wellness (AWV) [facility] Start: 1950 Screening for malignant neoplasm of colon [facility] Bacteria identified in Wound by Culture ABSCESS AND WOUND CULTURE WITH GRAM STAIN Microbiology Routine Ingrowing toenail with infection 10/31/2023 11:44 AM EST [facility] Work Phone: CARDIAC REHAB II OUT PT ([place], [place]) CARDIAC REHAB II OUTPT ([place]) BIC Routine 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) Ordered: 02/10/2024 [facility] Work Phone: Comment on above: Ordered: 02/10/2024 Comprehensive metabo lic 2000 panel - Serum or Plasma [facility] End: 02-14-2024 Cta abdl aorta&bi iliofem w/contrast&postp CTA ABD/PEL LOWER EXTREM W IVCON Radiology Routine Peripheral vascular disease (HCC) 1 Occurrences starting 01/15/2023 until 02/14/2024 [facility] Work Phone: Comment on above: 1 Occurrences starting 01/15/2023 until 02/14/2024 ECG 12 lead ECG 12 lead CV E CG Routine 09/30/2024 12:42 PM EST [facility] Work Phone: End: 09-05-2023 ECG COMPLETE ECG COMPLETE ECG Routine Coronary artery disease involving hamilton coronary artery of hamilton heart without angina pectoris 1 Occurrences starting 09/05/2022 until 09/05/2023 [facility] Work Phone: Comment on above: 1 Occurrences starting 09/05/2022 until 09/05/2023 End: 04-29-2024 ECG COMPLETE ECG COMPLETE ECG Routine Screening for ischemic heart disease 1 Occurrences starting 04/29/2023 until 04/29/2024 [facility] Work Phone: Comment on above: 1 Occurrences starting 04/29/2023 until 04/29/2024 End: 08-09-2024 ECG COMPLETE ECG COMPLETE ECG Routine Coronary artery disease involving hamilton coronary artery of hamilton heart without angina pectoris 1 Occurrences starting 08/09/2023 until 08/09/2024 [facility] Work Phone: Comment on above: 1 Occurrences starting 08/09/2023 until 08/09/2024 LEFT HEART CATH / CO RONARY ANGIOGRAPHY W GRAFTS LEFT HEART CATH / CORONARY ANGIOGRAPHY W GRAFTS Coronary artery disease involving hamilton coronary artery of hamilton heart without angina pectoris [facility] [place] Direct Auto Lipid 1996 panel - S silvia or Plasma [facility] Patient Education [facility] Work Phone: Patient referral [facility] Work Phone: End: 03-27-2023 PVR LEG NOHEMY VAS LAB [facility] Vascular Lab Routine Peripheral arterial disease (HCC) 1 Occurrences starting 03/27/2022 until 03/27/2023 [facility] Work Phone: Comment on above: 1 Occurrences starting 03/27/2022 until 03/27/2023 Tissue Pathology bio psy report [facility] Work Phone: Comment on above: Release Upon Ordering for 1 Occurrences starting 04/14/2025, 1 completed End: 04-07-2025 US Lower extremity artery - bilateral [facility] Vascular Lab Routine Peripheral arterial disease (HCC) 1 Occurrences starting 04/07/2024 until 04/07/2025 [facility] Work Phone: Comment on above: 1 Occurrences starting 04/07/2024 until 04/07/2025 End: 04-06-2026 US Lower extremity artery - bilateral [facility] Vascular Lab Routine Peripheral arterial disease 1 Occurrences starting 04/06/2025 until 04/06/2026 [facility] Work Phone: Comment on above: 1 Occurrences starting 04/06/2025 until 04/06/2026 End: 02-25-2025 XR Wrist - bilateral PA and Lateral and Oblique XR WRIST GENERAL 3V PA/LAT/OBL BILATERAL Radiology Routine Pain in both wrists 1 Occurrences starting 2024 until 02/25/2025 [facility] Work Phone: Comment on above: 1 Occurrences starting 2024 until 02/25/2025 XR Wrist - bilateral PA and Lateral and Oblique XR WRIST GENERAL 3V PA/LAT/OBL BILATERAL Radiology Routine Pain in both wrists 2024 3:44 PM EDT [facility] Work Phone: [facility] Immunizations Immunization Date Immunization Notes Care Provider Fa [facility] 04-30-2025 tetanus toxoid, redu hayley diphtheria toxoid, and acellular pertussis vaccine, adsorbed Dr. Sher Jules MD Work Phone: [facility] 07-29-2023 COVID-19 vaccine, ag e 12+ yr, season (PFIZER-BIONTECH) Sher Jules MD Work Phone: [facility] 07-29-2023 influenza (aIIV4) vaccine, age 65+ yr, quadrivalent, PF (FLUAD QUAD) Sher Jules MD Work Phone: [facility] 07-29-2023 influenza virus vaccine, unspecified formulation Barb Suggs APRN.CNP Work Phone: [facility] 08-04-2022 COVID-19 booster vaccine, age 12+ yr, bivalent (PFIZER-BIONTECH) Jules Dukes MD Work Phone: [facility] Work Phone: 08-04-2022 tetanus toxoid, redu hayley diphtheria toxoid, and acellular pertussis vaccine, adsorbed Jules Dukes MD Work Phone: [facility] Work Phone: 07-18-2022 influenza, high-dose , quadrivalent vaccine (FLUZONE HIGH DOSE QUADRIVALENT) Barb Leon APRN.CNP Work Phone: [facility] Work Phone: 07-18-2022 influenza virus vaccine, unspecified formulation Gomez Mccabezaki Work Phone: [facility] 03-04-2022 COVID-19 original vaccine, full dose, monovalent (MODERNA) Sher Jules MD Work Phone: [facility] Work Phone: 08-21-2021 COVID-19 vaccine, booster dose (MODERNA) Sher Jules MD Work Phone: [facility] 07-14-2021 influenza, high-dose , quadrivalent vaccine (FLUZONE HIGH DOSE QUADRIVALENT) Sher Jules MD Work Phone: [facility] 05-28-2021 Covid (Moderna) [facility] Work Phone: 01-07-2021 COVID-19 vaccine, booster dose (MODERNA) Sher Jules MD Work Phone: [facility] 12-10-2020 COVID-19 vaccine, booster dose (MODERNA) Sher Jules MD Work Phone: [facility] 08-03-2020 influenza (aIIV4) vaccine, age 65+ yr, quadrivalent, PF (FLUAD QUAD) Sher Jules MD Work Phone: [facility] Work Phone: 08-06-2019 influenza, high dose seasonal, preservative-free Shre Jules MD Work Phone: [facility] Work Phone: 08-22-2018 influenza, high dose seasonal, preservative-free Sher Jules MD Work Phone: [facility] 03-15-2018 zoster vaccine recombinant Sher Jules MD Work Phone: [facility] Work Phone: 02-21-2018 pneumococcal polysaccharide vaccine, 23 valent Sher Jules MD Work Phone: [facility] Work Phone: 08-22-2017 influenza, high dose seasonal, preservative-free Sher Jules MD Work Phone: [facility] 02-20-2017 pneumococcal conjuga te vaccine, 13 valent Sher Jules MD Work Phone: [facility] 08-22-2016 influenza, injectabl e, quadrivalent, contains preservative Sher Jules MD Work Phone: [facility] 08-05-2015 influenza, injectabl e, quadrivalent, contains preservative Sher Jules MD Work Phone: [facility] 08-17-2013 zoster vaccine, live Sher Jules MD Work Phone: [facility] 07-03-2013 influenza virus vaccine, unspecified formulation Sher Jules MD Work Phone: [facility] 08-13-2011 influenza virus vaccine, unspecified formulation Sher Jules MD Work Phone: [facility] Work Phone: 08-01-2009 influenza virus vaccine, unspecified formulation Sher Jules MD Work Phone: [facility] Work Phone: 03-19-2008 diphtheria and tetan us toxoids, adsorbed for pediatric use Sher Jules MD Work Phone: [facility] Work Phone: 12-24-2006 pneumococcal polysaccharide vaccine, 23 valent Sher Jules MD Work Phone: [facility] Work Phone: Payers Date Payer Category Payer Unknown PLAN N 2024 Unknown [id number] 2024 Self-pay [id number] 2016 Medicare MEDICARE MEDICAR E A AND B [id number] 2016-Present [phone] [place] [address] Medicare [id number] 2016 Medicare [id number] 2016 Medicare supplementa l policy (as second payer) [id number] 2016 Private Health Insurance [place] [id number] 2016 Unknown MEDICO MEDICO 2N D [id number] 2016-Present [phone] [address] [address] [place] [id number] Indemnity [id number] 2016 Medicare [id number] 2016 Unknown [id number] 2005 Private Health Insurance [id number] Unknown [id number] 2.16.840.1.486842.3.579 .2.462 Unknown [id number] 2.16.840.1.083809.3.579 .2.462 Unknown [id number] 2.16.840.1.212690.3.579 .2.462 Unknown [id number] 2.16.840.1.561456.3.579 .2.462 Unknown [id number] 2.16.840.1.599736.3.579 .2.462 Unknown [id number] 2.16.840.1.037231.3.579 .2.462 Unknown [id number] 2.16.840.1.568262.3.579 .2.462 Unknown [id number] 2.16.840.1.160381.3.579 .2.462 Unknown [id number] 2.16.840.1.798364.3.579 .2.462 Unknown [id number] 2.16.840.1.123217.3.579 .2.462 Unknown [id number] 2.16.840.1.520645.3.579 .2.462 Unknown [id number] 2.16.840.1.968229.3.579 .2.462 Unknown [id number] 2.16.840.1.202815.3.579 .2.462 Unknown [id number] 2.16.840.1.807841.3.579 .2.462 Unknown [id number] 2.16.840.1.322945.3.579 .2.462 Unknown [id number] 2.16.840.1.550575.3.579 .2.462 Unknown [id number] 2.16.840.1.641928.3.579 .2.462 Unknown [id number] 2.16.840.1.180957.3.579 .2.462 Unknown [id number] 2.16.840.1.927796.3.579 .2.462 Unknown [id number] 2.16.840.1.224933.3.579 .2.462 Unknown [id number] 2.16.840.1.593979.3.579 .2.462 Unknown [id number] 2.16.840.1.515471.3.579 .2.462 Unknown [id number] 2.16.840.1.403585.3.579 .2.462 Unknown [id number] 2.16.840.1.660619.3.579 .2.462 Unknown [id number] 2.16.840.1.633190.3.579 .2.462 Unknown [id number] 2.16840.1.371089.3.579 .2.462 Unknown [id number] 2.16.840.1.030757.3.579 .2.462 Unknown [id number] 2.16.840.1.653715.3.579 .2.462 Unknown [id number] 2.16840.1.379064.3.579 .2.462 Unknown [id number] 2.16840.1.371632.3.579 .2.462 Social History Date Type Detail Facility Start: 10-17-2013 End: 04-29-2025 Tobacco smoking status NHIS Ex-smoker [facility] Start: 10-28-1968 End: 10-28-2002 History of tobacco use Current smoker [facility] Start: 10-28-1968 End: 10-28-2002 History of tobacco use Cigarette Smoker [facility] Start: 02-20-2022 End: 04-15-2025 Alcohol intake Current drinker of alcohol (finding) [facility] Start: 02-20-2022 End: 03-20-2023 Alcohol intake [facility] Start: 08-22-2020 End: 09-24-2022 History SDOH Alcohol Frequency 5 [facility] Start: 08-22-2020 End: 09-24-2022 History SDOH Alcohol Std Drinks 2 [facility] Start: 08-22-2020 End: 09-24-2022 History SDOH Alcohol Binge 4 [facility] Start: 02-20-2022 History SDOH Alcohol Comment 6 beers per day, sometimes less [facility] Start: 07-31-2020 End: 09-24-2022 History SDOH Social Connections Get Together 3 [facility] Start: 07-31-2020 End: 09-24-2022 History SDOH Social Connections Membership 1 [facility] Start: 01-21-2020 End: 09-24-2022 History SDOH Physical Activity DPW 0 [facility] Start: 01-21-2020 Education 12 [facility] Start: 1950 Sex Assigned At Male [facility] Start: 03-17-2022 End: 03-27-2022 Exposure to SARS-CoV-2 (event) Unable to assess [facility] Start: 04-22-2022 End: 10-01-2022 Exposure to SARS-CoV-2 (event) Not sure [facility] Start: 05-29-2022 End: 02-19-2024 Tobacco smoking status NHIS Unknown if ever smoked [facility] Start: 05-29-2022 Cigarettes [facility] Start: 10-17-2013 End: 04-06-2025 Tobacco use and exposure Smokeless tobacco non-user [facility] Work Phone: Start: 09-24-2022 End: 03-20-2023 Social connection and isolation panel [facility] Do you belong to any clubs or organizations such as buddhist groups, unions, fraternal or athletic groups, or school groups? Yes [facility] Are you now , , , , never or living with a partner? [facility] How often to you hav e a drink containing alcohol? 4 or more times a week [facility] How many standard dr inks containing alcohol do you have on a typical day? 3 or 4 [facility] How often do you hav e 6 or more drinks on 1 occasion? Weekly [facility] How hard is it for y ou to pay for the very basics like food, housing, medical care, and heating Not hard at all [facility] Do you feel stress - tense, restless, nervous, or anxious, or unable to sleep at night because your mind is troubled all the time - these days [OSQ] Not at all [facility] (I/We) worried [facility] (my/our) food would run out before (I/we) got money to buy more. Never true [facility] In the past 12 month s, was there a time when you were not able to pay the mortgage or rent on time? No [facility] Start: 08-11-2020 Gender identity Identifies as male gender (finding) [facility] Start: 08-11-2020 Sexual orientation Heterosexual (finding) [facility] How often do you hav e 6 or more drinks on 1 occasion? Never [facility] History of tobacco use Passive smoker [facility] Start: 09-16-2024 Alcohol Comment 30 a week [facility] Start: 1950 Sex assigned at Not on file [facility] Start: 09-15-2024 Sex Male (finding) [facility] How many standard dr inks containing alcohol do you have on a typical day? 5 or 6 [facility] How often do you hav e 6 or more drinks on 1 occasion? Daily or almost daily [facility] Medical Equipment Procedure Code Equipment Code Equipment Original Text Equipment Identifier Dates [place] Ptfe 1.2 Cm X 10 Cm - [id number] Start: 10-20-2013 Comment on above: Description: Bard PT FE [place] Patch Cv 2x9cm Peripatch - [id number]_[facility] Start: 05-24-2016 [id number], [id number] Start: 02-15-2010 Comment on above: TEST BLOOD SUGARS ON CE DAILY Use as instructed Test blood sugar onc e daily. Drug-eluting coronary artery stent, non-bioabsorbable -polymer-coated ()[id number] FDA Start: 01-29-2024 Drug-eluting coronary artery stent, non-bioabsorbable -polymer-coated ()[id number] FDA Start: 01-29-2024 Stent Cor [place] 2.21o76mv - [id number]_[facility] Start: 09-30-2024 Stent Cor Skypoint 3.79r60oi - [id number] Start: 09-30-2024 Goals Date Patient Goal Desired Activity /State Personal health goal Functional Status Date Assessment Result Facility 01-30-2024 Functional status Ambulates;Up a d juan;Bathroom Privilege [facility] Work Phone: 05-30-2022 Functional status Ambulates [facility] Work Phone: 05-26-2016 Are you deaf, or do you have serious difficulty hearing No 05/26/2016 1:42 PM EDT Homer MadisonRn)(Hist), RN No [facility] 05-26-2016 Are you blind, or do you have serious difficulty seeing, even when wearing glasses No 05/26/2016 1:42 PM Homer SalazarRn)(Hist), RN No [facility] 05-26-2016 Do you have serious difficulty walking or climbing stairs No 05/26/2016 1:42 PM EDHomer KohlerRn)(Hist), RN No [facility] 05-26-2016 Do you have difficul ty dressing or bathing No 05/26/2016 1:42 PM Homer SalazarRn)(Hist), RN No [facility] 05-26-2016 Because of a physica l, mental, or emotional condition, do you have difficulty doing errands alone such as visiting a physician's office or shopping No 05/26/2016 1:42 PM Homer Salazar)(Hist), RN No [facility] Mental Status Date Assessment Result Facility 01-30-2024 Cognitive function Voice/Name [facility] Work Phone: 01-28-2024 Cognitive function Voice/Name [facility] Work Phone: 05-30-2022 Cognitive function Voice/Name [facility] Work Phone: 05-26-2016 Because of a physica l, mental, or emotional condition, do you have serious difficulty concentrating, remembering, or making decisions No 05/26/2016 1:42 PM EDHomer Kohler)(Hist), RN No [facility] Clinical Notes 08-22-2018 to 04-30-2025 Elvie Monterroso APRN.ARCHEOLOGY PROFESSOR - 04/22/2025 10:30 AM EDTDischarge Instr - Nursing - Nuris Meek, RN - 04/14/2025 9:21 AM EDTDischarge Instr - Nursing - Nuris Meek RN - 04/14/2025 9:21 AM EDT Note Date & Type Note Facility 04-30-2025 Discharge summary [facility] 04-29-2025 Radiology Diagnostic study note [facility] Imaging Services [address] [place] [address] Brain/Head without Contrast MR#: [id number] Acct: [id number] Name: MARIE HUTSON Rep #: [id number] : 1950 M 75 From: Carin Sifuentes MD PCP: Dr. Sher Jules MD Status: R ER Study:Brain/Head without Contrast Date of Exa m: 04/29/25 Exam# [id number] Ordering Dr: Susy Wallace MD PROCEDURE: BRAIN/HEAD [...] IMPRESSION: No acute intracranial finding Reading Location: [place] [address] CC: Dr. Rohan Wallace MD; Dr. Sher Jules MD ~ Seat Mender: Signed [facility] 04-29-2025 Hospital Discharge instructions Additional Instructions 1. Keep wound clean and dry as much as possible for the next 2 to 3 days 2. Apply bacitracin ointment 2-3 times a day 3. If there is any concern for infection either see your doctor or return to the emergency room for reevaluation [facility] Work Phone: 04-22-2025 History of Present illness Narrative FOLLOW UP VISIT - ENDOSCOPY Marie Hutson 1950 [id number] REFERRING PHYSICIAN: Nikos Rivera [address] [facility] [id number] Marie Hutson is a patient I am [...] as needed for worsening/no improvement. Elvie Monterroso APRN.ARCHEOLOGY PROFESSOR documented in this encounter [facility] 04-22-2025 Note HNO ID: [id number] Author: ELVIE MONTERROSO APRN.ARCHEOLOGY PROFESSOR Service: ? Author Type: Nurse Practitioner Type: Progress Notes Filed: 04/22/2025 10:56 Note Text: FOLLOW UP VISIT - ENDOSCOPY Marie Hutson 1950 [id number] REFERRING PHYSICIAN: Nikos Rivera [address] [facility] [address] Marie Hutson is a patient I am [...] as needed for worsening/no improvement. Elvie Monterroso APRN.ARCHEOLOGY PROFESSOR [facility] 04-14-2025 Note Formatting of this n ote might be different from the original. The patient received a copy of Colonoscopy and EGD discharge instructions that contain information for how to contact the physician who performed the procedure and when to seek medical care. [facility] 04-14-2025 Miscellaneous Notes The patient received a copy of Colonoscopy and EGD discharge instructions that contain information for how to contact the physician who performed the procedure and when to seek medical care. documented in this encounter [facility] 04-14-2025 Attending History and physical note UPDATED [...] : 1950 REFERRING PHYSICIAN: Barb Suggs [address] [facility] [address] CHIEF COMPLAINT: Patient presents with: Consult: For [...] ulcers/ peptic ulcer disease. Marie follows with [facility] for hx of CABG x 3 (2012), CAD with 2 stents in 09/2024. On plavix. Last OV 01/2025. He denies CP, SOB, dizziness, palpitations, syncope, edema, recent hospitalizations Other medical history is significant for T2DM and osteoarthritis. Marie has undergone prior endoscopy. Last colonoscopy was 11/[address] Rivera at [facility]. 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 Type II or unspecified [...] consents to surgery. Cardiac clearance sent to [facility]. Will keep patient on plavix & schedule [...] edited and updated as necessary. Elvie Monterroso APRN.ARCHEOLOGY PROFESSOR [facility] 04-14-2025 History and physical note HISTORY AND PHYSICAL Marie Hutson : 1950 REFERRING PHYSICIAN: Barb Suggs [address] [facility] [address] CHIEF COMPLAINT: Patient presents with: Consult: For colonoscopy. Denies symptoms HPI: Marie is a 75 year old male referred for endoscopy. Marie notes anemia. Last H&H 10.6 & 29.8 (03/15/25). Amrie denies abdominal pain. Marie denies diarrhea. Marie denies constipation. Marie denies a change in bowel habits. Marie denies melena. Marie denies bright red blood per rectum. Marie denies hemorrhoids. Marie denies family history of colon issues. Marie denies heartburn. Marie denies dysphagia. Marie denies a history of ulcers/ peptic ulcer disease. Marie follows with [facility] for hx of CABG x 3 (2012), CAD with 2 stents in 09/2024. On plavix. Last OV 01/2025. He denies CP, SOB, dizziness, palpitations, syncope, edema, recent hospitalizations Other medical history is significant for T2DM and osteoarthritis. Marie has undergone prior endoscopy. Last colonoscopy was 11/[address] Rivera at [facility]. 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 Type II or unspecified [...] consents to surgery. Cardiac clearance sent to [facility]. Will keep patient on plavix & schedule [...] edited and updated as necessary. Elvie Monterroso APRN.ARCHEOLOGY PROFESSOR [facility] 04-14-2025 History and physical note UPDATED PROCEDURAL [...] 2025 TIME: 8:21 AM Source Note - Nkios Rivera MD - 04/14/2025 8:15 AM EDT HISTORY AND PHYSICAL Marie Hutson : 1950 REFERRING PHYSICIAN: Barb Suggs [address] [facility] [address] CHIEF COMPLAINT: Patient presents with: Consult: For [...] ulcers/ peptic ulcer disease. Marie follows with [facility] for hx of CABG x 3 (2012), CAD with 2 stents in 09/2024. On plavix. Last OV 01/2025. He denies CP, SOB, dizziness, palpitations, syncope, edema, recent hospitalizations Other medical history is significant for T2DM and osteoarthritis. Marie has undergone prior endoscopy. Last colonoscopy was 11/[address] Rivera at [facility]. 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 Cardiac clearance sent to [facility]. Will keep patient on plavix & schedule [...] : 1950 REFERRING PHYSICIAN: Barb Suggs [address] [facility] [id number] CHIEF COMPLAINT: Patient presents with: Consult: For [...] ulcers/ peptic ulcer disease. Marie follows with [facility] for hx of CABG x 3 (2012), CAD with 2 stents in 09/2024. On plavix. Last OV 01/2025. He denies CP, SOB, dizziness, palpitations, syncope, edema, recent hospitalizations Other medical history is significant for T2DM and osteoarthritis. Marie has undergone prior endoscopy. Last colonoscopy was 11/[address] Rivera at [facility]. 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 Cardiac clearance sent to [facility]. Will keep patient on plavix & schedule [...] edited and updated as necessary. Elvie Monterroso APRN.ARCHEOLOGY PROFESSOR documented in this encounter [facility] 04-06-2025 Note HNO ID: [id number] Author: NARGIS YIN, DO Service: ? Author Type: Physician Type: Progress Notes Filed: 04/06/2025 09:38 Note Text: [facility] DEPARTMENT OF VASCULAR SURGERY OUTPATIENT VISIT DATE [...] Diagnosis Date Anemia, unspecified type Atherosclerosis of hamilton arteries of the extremities with intermittent claudication [...] mg SL tab (more content not included)... [facility] 04-06-2025 History of Present illness Narrative Images from the original note were not included. 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 documented in this encounter [facility] 04-06-2025 Note HNO ID: [id number] Author: GEM QUIROGA MA Service: ? Author Type: Production Broacher Type: Progress Notes Filed: 04/06/2025 09:38 Note Text: Patient presents with: Follow Up: 1 year follow up PAD AMB ROOMING INTAKE FLOWSHEET DATA Patient denies any pain PVR done prior to appointment today. [facility] 03-18-2025 Note HNO ID: [id number] Author: ELVIE MONTERROSO APRN.ARCHEOLOGY PROFESSOR Service: ? Author Type: Nurse Practitioner Type: Progress Notes Filed: 03/18/2025 10:06 Note Text: HISTORY AND PHYSICAL Marie Hutson : 1950 REFERRING PHYSICIAN: Barb Suggs [address] [facility] [address] CHIEF COMPLAINT: Patient presents with: Consult: For [...] ulcers/ peptic ulcer disease. Marie follows with [facility] for hx of CABG x 3 (2012), CAD with 2 stents in 09/2024. On plavix. Last OV 01/2025. He denies CP, SOB, dizziness, palpitations, syncope, edema, recent hospitalizations Other medical history is significant for T2DM and osteoarthritis. Marie has undergone prior endoscopy. Last colonoscopy was 11/[address] Rivera at [facility]. Sedation:Midazolam 5 mg IV, Fentanyl 100 micrograms [...] Diagnosis Date Anemia, unspecified type Atherosclerosis of hamilton arteries of the extremities with intermittent claudication 09/07/2010 BENIGN NEOPLASM LG BOWEL 07/29/2008 Tubular adenoma. 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 Coronary artery disease Dermatophytosis of nail 12/29/2007 Diabetic peripheral neuropathy (HCC) 05/17/2014 Diabetic polyneuropathy associated with type 2 diabetes mellitus (HCC) DVT of leg (deep venous thrombosis) ([facility]) 11/16/2013 post-op CABG, rx with Xarelto Essential hypertension Hypertrophy of prostate without urinary obstruction and other lower urinary tract symptoms (LUTS) 12/29/2007 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/29/2007 Non-ST elevation myocardial infarction (NSTEMI) 10/17/2013 Non-STEMI (non-ST elevated myocardial infarction) ([facility]) 01/30/2024 LISANDRO to distal RCA Nonspecific abnormal [...] outpt Primary osteoarthritis of left knee 02/21/2018 [facility]. Type II or unspecified type diabetes mellitus without mention of complication, not stated as uncontrolled 12/29/2007 Unspecified essential hyper (more content not included)... [facility] 03-16-2025 Note HNO ID: [id number] Author: BRIAN GARSIA Tech Service: ? Author [...] PATIENT PRESENTS WITH AN IMPLANTABLE OR ATTACHED GAUGE AND WEIGH MACHINE ADJUSTER: No RADIOLOGY DEPARTMENT: General X-ray: Exam(s) Completed: Upper Extremity X-Ray(s): Hand, bilateral PERIPHERAL IV DATA: Not applicable SIGNED BY: Arlene Goldstein March 16, 2025 11:[address] [facility] 03-16-2025 Note HNO ID: [id number] Author: BARB SUGGS APRN.ARCHEOLOGY PROFESSOR Service: ? Author Type: Nurse Practitioner Type: [...] MD as PCP - General Barb Suggs APRN.ARCHEOLOGY PROFESSOR as Infrastructure Solutions Architect (Internal Medicine) [facility] (Neurology) [facility] (Cardiology) Nargis Yin MD Vascular-[facility] Gomez Schwab DPM, Podiatry-[facility] Hourly Caregiver-Hugh Delacruz/Dr. Edward Adams Commissary Manager- Christian Merritt Medical/Family history review Reviewed and [...] discussed with the patient: Recording using ambient [employer] software for draft documentation of the visit was discussed with the patient/authorized credit representative; all questions welcomed and answered. Patient/authorized credit representative agreed to proceed Marie is a [...] He recently had two stents placed in [place] and is currently on Plavix, which he [...] heard. Pulmonary: Effort: (more content not included)... [facility] 03-04-2025 Telephone encounter Note Patient's request for medication is as follows: Requested Prescriptions Pending Prescriptions Disp Refills metoprolol tartrate, short acting, (LOPRESSOR) 25 mg tablet [Pharmacy Med Name: METOPROLOL TARTRATE 25 MG TAB] 360 tablet 0 Sig: TAKE 2 TABLETS BY MOUTH EVERY 12 HOURS Last seen in [place] 04/06/2024. Patient canceled 11/16/2024 follow up appointment. Notified pharmacy patient needs to schedule appointment for future refills Prescription(s) as above. Please process accordingly. Anabel Bhakta LPN [facility] 03-04-2025 Miscellaneous Notes Patient's request for medication is as follows: Requested Prescriptions Pending Prescriptions Disp Refills metoprolol tartrate, short acting, (LOPRESSOR) 25 mg tablet [Pharmacy Med Name: METOPROLOL TARTRATE 25 MG TAB] 360 tablet 0 Sig: TAKE 2 TABLETS BY MOUTH EVERY 12 HOURS Last seen in [place] 04/06/2024. Patient canceled 11/16/2024 follow up appointment. Notified pharmacy patient needs to schedule appointment for future refills Prescription(s) as above. Please process accordingly. Anabel Bhakta LPN documented in this encounter [facility] 02-23-2025 Note HNO ID: [id number] Author: GOMEZ SCHWAB, ? Service: ? Author [...] the left anterior leg, performed by a head concierge, is healing without issues. - Denies current smoking. - Denies burning sensation in feet; reports tingling and numbness. Neurological: (+) tingling, (+) numbness, (-) burning PAST MEDICAL HISTORY Diagnosis Date Atherosclerosis of hamilton arteries of the extremities with intermittent claudication [...] (NSTEMI) 10/17/2013 Non-STEMI (non-ST elevated myocardial infarction) ([facility]) 01/30/2024 LISANDRO to distal RCA Nonspecific abnormal [...] - Left do (more content not included)... [facility] 02-23-2025 History of Present illness Narrative [...] the left anterior leg, performed by a head concierge, is healing without issues. - Denies current smoking. - Denies burning sensation in feet; reports tingling and numbness. Neurological: (+) tingling, (+) numbness, (-) burning PAST MEDICAL HISTORY Diagnosis Date Atherosclerosis of hamilton arteries of the extremities with intermittent claudication [...] follow-up in 3 months Attestation Recording using [employer] software for draft documentation of the visit was discussed with the patient/authorized credit representative; all questions welcomed and answered. Patient/authorized credit representative agreed to proceed Gomez Schwab DPM AMB ROOMING INTAKE FLOWSHEET DATA Patient presents with: Left Foot - Established Patient, Follow Up, Diabetic Foot Care, Numbness Right Foot - Established Patient, Follow Up, Diabetic Foot Care, Numbness Cheryle Merritt LPN documented in this encounter [facility] 02-23-2025 Instructions Gomez Schwab - 02/23/2025 10:45 [...] (or decreased sensation in your feet) a dialer should always cut your toenails. Be Careful [...] Go to your health care provider or dialer to treat these conditions. Continue to check [...] foot issues arise. documented in this encounter [facility] 02-23-2025 Note HNO ID: [id number] Author: CHERYLE MERRITT LPN Service: ? Author Type: LICENSED NURSE Type: Progress Notes Filed: 02/23/2025 12:47 Note Text: AMB ROOMING INTAKE FLOWSHEET DATA Patient presents with: Left Foot - Established Patient, Follow Up, Diabetic Foot Care, Numbness Right Foot - Established Patient, Follow Up, Diabetic Foot Care, Numbness Cheryle Merritt LPN [facility] 02-11-2025 Evaluation note Diagnosis Onset Date [...] 29, 2024 chronic February 11, 2025 1:10pm [facility] Work Phone: 1(147) 310-918404-17-2025 Evaluation note* Diagnosis Onset Date Resolution Status [...] of right hand acute May 06 1:58pm Logan Shoplins Work Phone: 1(807) 311-388304-07-2025 Telephone encounter Note* Telephone Encounter - Anabel [...] Anabel Ribera February 01, 2025 2:44 PM [facility]04-07-2025 Miscellaneous Notes* Telephone Encounter - Anabel Ospina [...] 01, 2025 2:44 PM [facility] Note12/31/24 1453 BPCI Outreach Assessment Selection Which [...] discharge services? No (Cardiac rehab scheduled at [place]) Any concerns with your DME equipment? N/A Any questions about your condition you are unsure about that I can help clarify? No Patient on BPCI Advanced: OP Patients Qualify for Cardiac Care and Cardiac Procedures from [facility] report 10/01/2024. EMR reviewed. Patient enrolled in [facility] Cardiac 90-day BPCI Program post-hospital discharge 09/30/24 Dx: PCI with IVL, LISANDRO to Left Main->Ramus Right radial artery used. Patient has a past medical history of DM with neuropathy, HTN, HLD, family history of premature CAD, prior tobacco use (quit), ocular TIA. He had a CABG in 2012. 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 WRIGHT to LAD was patent. At that time distal RCA was stented. He also had a severely stenotic calcified distal left main and ostial ramus. 90-day BPCI outreach made 12/01/24 patient doin well Cardiac Rehab scheduled at [place]. BPCI program is complete able to avoid any hospital readmissions during 90-day BPCI period case closed.[facility]03-04-2025 Note12/29/24 1249 General Care Management Assessment completed with: Patient Enrolled in care management program: Yes Living arrangement: Spouse Support system: Spouse Type of residence: Private residence Home care services: No Equipment used at home: None Communication device: Yes Bed or wheelchair confined: No Inadequate nutrition: No Medication adherence problem: No Difficulty keeping appointments: [facility]01-23-2025 History of Present illness Narrative* Josselin Gomez [...] polyneuropathy associated with type 2 diabetes mellitus ([facility]) (I73.9) PAD (peripheral artery disease) ([facility]) Plan: Patient was seen and evaluated. Nails [...] Care Cheryle Merritt LPN [facility]25 NoteHNO ID: [id number] Author: GOMEZ SCHWAB, ? Service: ? Author [...] Objective: Patient presents to clinic ambulating [facility] Vasc: DP and PT pulses are nonpalpable [...] mellitus (HCC) (I73.9) PAD (peripheral artery disease) ([facility]) Plan: Patient was seen and evaluated. Nails [...] to RTC in 3-4 months. Gomez Schwab [facility]01-23-2025 Instructions* Patient Instructions* Gomez Schwab - 11/19/2024 [...] (or decreased sensation in your feet) a dialer should always cut your toenails. Be Careful [...] Go to your health care provider or dialer to treat these conditions. [facility]2025 NoteHNO ID: [id number] Author: CHEYRLE MERRITT LPN Service: ? Author Type: LICENSED NURSE Type: Progress Notes Filed: 11/19/2024 11:31 Note Text: AMB ROOMING INTAKE FLOWSHEET DATA Risk Screening Do you have concerns about personal safety or safety in the home?: No Patient presents with: Left Foot - Established Patient, Follow Up, Diabetic Foot Care Right Foot - Established Patient, Follow Up, Diabetic Foot Care Cheryle Merritt [facility]01-17-2025 NoteHNO ID: [id number] Author: SHER JULES MD Service: ? Author Type: Physician Type: Progress Notes Filed: 11/13/2024 13:56 Note Text: This note was created using emoteShareriter. Subjective Marie Hutson is a 74 year [...] Mixed Sleep Apnea Coronary Artery Disease Involving [place] Coronary Artery of [place] Heart Without Angina Pectoris Obesity, Class I, [...] Z95.5 2023. DAPT until 2024. Sher Jules [facility]01-17-2025 History of Present illness Narrative* Sher Jules MD - 11/13/2024 1:18 PM EST This note was created using emoteShareriter. Subjective Marie Hutson is a 74 year [...] Mixed Sleep Apnea Coronary Artery Disease Involving [place] Coronary Artery of [place] Heart Without Angina Pectoris Obesity, Class I, [...] 2024. Sher Jules MD [facility]2025 NoteHNO ID: [id number] Author: PALAK ROSALES LPN Service: ? Author [...] Palak Rosales LPN November 11, 2024 2:06 [facility]01-15-2025 History of Present illness Narrative* Palak [...] 11, 2024 2:06 PM documented in this encounter[facility]12-30-2024 NoteEMR reviewed. Patient on BPCI Advanced: OP Patients Qualify for Cardiac Care and [facility] 10/01/2024. EMR reviewed. Patient enrolled in [facility] 90-day BPCI Program post-hospital discharge 09/30/24 Dx: PCI with IVL, LISANDRO to Left Main->Ramus Right radial artery used. Patient has a past medical history of DM with neuropathy, HTN, HLD, family history of premature CAD, prior tobacco use (quit), ocular TIA. He had a CABG in 2012. 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 WRIGHT to LAD was patent. At that [...] reach out with any concerns. Future outreach scheduled.[facility]12-10-2024 Note Patient on BPCI Advanced: OP Patients Qualify for Cardiac Care and Cardiac Procedures from [facility] report 10/01/2024. EMR reviewed. Patient enrolled in [facility] Cardiac 90-day BPCI Program post-hospital discharge 09/30/24 Dx: PCI with IVL, LISANDRO to Left Main->Ramus Right radial artery used. Patient has a past medical history of DM with neuropathy, HTN, HLD, family history of premature CAD, prior tobacco use (quit), ocular TIA. He had a CABG in 2012. 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 WRIGHT to LAD was patent. At that time distal RCA was stented. He also had a severely stenotic calcified distal left main and ostial ramus. BPCI outreach made unable to reach patient call forwarded to and then ended unable to leave a voice mail. Future outreach scheduled. Follow up 10/30/24 [facility] BOBBY Gan CNP Nurse Practitioner [...] Problem List Diagnosis Coronary artery disease involving hamilton coronary artery of hamilton heart without angina pectoris EKG: IMPRESSION: Sinus bradycardia Prolonged HI interval Borderline ST elevation, anterior leads TELEMETRY: [...] he had a NSTEMI and went to process laboratory specialist. WRIGHT to LAD was patent. At that [...] his medication list. Verified with his primary tannery gummer office, and he was to discontinue carvedilol [...] continue atorvastatin. HTN- contin (more content not included)...[facility]12-05-2024 Note Patient on BPCI Advanced: OP Patients Qualify for Cardiac Care and Cardiac Procedures from [facility] report 10/01/2024. EMR reviewed. Patient enrolled in [facility] Card[facility] 90-day BPCI Program post-hospital discharge [...] Problem List Diagnosis Coronary artery disease involving hamilton coronary artery of hamilton heart without angina pectoris EKG: IMPRESSION: Sinus bradycardia Prolonged HI interval Borderline ST elevation, anterior leads TELEMETRY: [...] he had a NSTEMI and went to process laboratory specialist. WRIGHT to LAD was patent. At that [...] his medication list. Verified with his primary tannery gummer office, and he was to discontinue carvedilol [...] Cardiac rehab recommended- he will do in [place]. Follow up with Dr. Simeon. Secondary Discharge diagnosis: HLD- continue atorvastatin. HTN- continue metoprolol, clonidine, amlodipine, lisinopril. DM2- m (more content not included)...[facility] [id number] NoteName: Marie Hutson Date of : 1950 Date of Admission: 09/30/2024 Date of Discharge: 09/30/2024 Admitting physician: Sergei Collins MD Discharge Attending: Xochitl Solano APRN - ARCHEOLOGY PROFESSOR Primary Care Physician: Sher Jules Review of [...] Problem List Diagnosis Coronary artery disease involving hamilton coronary artery of hamilton heart without angina pectoris EKG: IMPRESSION: Sinus bradycardia Prolonged HI interval Borderline ST elevation, anterior leads TELEMETRY: [...] he had a NSTEMI and went to process laboratory specialist. WRIGHT to LAD was patent. At that [...] his medication list. Verified with his primary tannery gummer office, and he was to discontinue carvedilol [...] Cardiac rehab recommended- he will do in [place]. Follow up with Dr. Simeon. Secondary Discharge [...] No, not medically i (more content not included)...[facility]12-04-2024 Hospital course Narrative* BOBBY Gan CNP [...] Problem List Diagnosis Coronary artery disease involving hamilton coronary artery of hamilton heart without angina pectoris EKG: IMPRESSION: Sinus bradycardia Prolonged HI interval Borderline ST elevation, anterior leads TELEMETRY: [...] he had a NSTEMI and went to process laboratory specialist. WRIGHT to LAD was patent. At that [...] his medication list. Verified with his primary tannery gummer office, and he was to discontinue carvedilol [...] Cardiac Rehab The Cardiac Rehab team at [facility] consists of highly skilled exercise physiologists, nurses, [...] your heart. We have facilities at both [facility] and [facility]. At both locations we have street level parking which is free and our sites are easily accessible. For both arthures you can contact us at . We invite you to call us with your questions or to get started in our program. If you have other questions or concerns be sure to ask your provider during your follow up visit. We look forward to seeing you there. Our locations: [facility] [address] [facility] [place]. Ground Floor [id number] - Ground floor BMI Classification: Overweight (BMI 25.0-29.9) DIET: A lowfat, low cholesterol diet was discussed with the patient. Discharge to Home Condition at Discharge: stable Follow up with cardiology Dr. Simeon on October 14, in 2 weeks. If any questions call [facility] office [phone] Total time spent for Discharge time greater than 31 minutes Cosigned by Sergei Collins MD at 09/30/2024 9:57 PM EST documented in this [facility]12-04-2024 Hospital Discharge instructions* Discharge Instructions* BOBBY Gan CNP - 09/30/2024 12:19 PM EST Restart Metformin Saturday. Stop carvedilol and HCTZ (this was stopped by [facility]). Continue all same medications. Follow up with Dr. Simeon. We recommend a follow up in 2 weeks. Call your doctor with any medication questions or if you notice any side effects from your medications. If you are unable to fill your medications, please call your Aids Social Worker immediately. The office number is located with [...] for 24 hours. GIVE PCI PACKET (FROM MED SPECIALIST) TO PATIENT Give Coronary Artery Discharge Booklet [...] Cardiac Rehab The Cardiac Rehab team at [facility] consists of highly skilled exercise physiologists, nurses, [...] your heart. We have facilities at both [facility] and [facility]. At both locations we have street level parking which is free and our sites are easily accessible. For both [facility] you can contact us at . We invite you to call us with your questions or to get started in our program. If you have other questions or concerns be sure to ask your provider during your follow up visit. We look forward to seeing you there. Our locations: [facility] [address] Floor [id number] - Ground floor documented in this [facility]12-04-2024 Attending History and physical note* Sergei Collins MD - 09/30/2024 10:57 AM EST H&P reviewed. The patient was examined and there are no changes to the H&P. Source Note - BOBBY Rao CNP - 09/29/2024 2:25 PM EST Images from the original note were not included. ADDENDUM: Pt scheduled for [facility] with Dr. Collins on 09/30/24 at 11:00AM. [...] no history of HF Frailty Score :[facility] Protocol: No H+ P copied to chart from Dr. Collins's progress note dated 09/16/[address] Collins. [facility] Cardiovascular Medicine [facility] [address] [facility] [id number] Dept: [phone] Dept Loc: [phone] DATE of SERVICE: 09/16/24 TIME of SERVICE: [...] followed by Dr. Simeon at [facility]. He had an NSTEMI in January 2024. [...] CREATININE @LASTCMP@ No results found for: TSH, J1OHHIO, J9AAFNV, THYROIDAB No results found for: HGBA1C No [...] CLINIC PERFORMED 2. Coronary artery disease involving hamilton coronary artery of hamilton heart without angina pectoris - Case Request Health And Wellness Coach: Left heart cath / coronary angiography w [...] after Thanksgiving. Sergei Collins MD, RAH, FAC, [facility] Manager Med Surg, Department of Cardiovascular Disease Clinical Social Work Therapist, [facility] Clinical Social Work Therapist, [facility] Anticoagulation Management Service Interventional Cardiology Clinical Professor of Internal Medicine, [facility] [id number] p [phone] f [phone] [email or web address] Cosigned by Sergei Collins MD at 09/30/2024 9:57 PM EST [id number] NoteH&P reviewed. The patient was examined and there are no changes to the H&P.[facility]12-04-2024 History and physical note* Sergei Collins MD - 09/30/2024 10:57 AM EST H&P reviewed. The patient was examined and there are no changes to the H&P. Source Note - Bárbara Russell Larissaernie, BENCH HAND MACHINE - ARCHEOLOGY PROFESSOR - 09/29/2024 2:25 PM EST Images from the original note were not included. ADDENDUM: Pt scheduled for [facility] with Dr. Collins on 09/30/24 at 11:00AM. [...] dated 09/16/[address] Collins. [facility] Cardiovascular Medicine [address] [address] Dept: [phone] Dept Loc: [phone] DATE of SERVICE: 09/16/24 TIME of SERVICE: [...] followed by Dr. Simeon at [facility]. He had an NSTEMI in January 2024. [...] CREATININE @LASTCMP@ No results found for: TSH, S1SUXYZ, G8SJGAJ, THYROIDAB No results found for: HGBA1C No [...] CLINIC PERFORMED 2. Coronary artery disease involving hamilton coronary artery of hamilton heart without angina pectoris - Case Request Health And Wellness Coach: Left heart cath / coronary angiography w grafts - Basic metabolic panel - CBC 3. Stented coronary artery 4. S/P CABG x 3 5. Family history of chronic ischemic heart disease 6. Diabetes mellitus type 2 in nonobese (CMS/HCC) ([facility]) 7. Primary hypertension 8. Mixed hyperlipidemia I [...] after Thanksgiving. Sergei Collins MD, RAH, FACC, [facility] Manager Med Surg, Department of Cardiovascular Disease Clinical Social Work Therapist, [facility] [place] Clinical Social Work Therapist, [facility] Anticoagulation Management Service Interventional Cardiology Clinical Professor of Internal Medicine, [facility] Cardiology-[address] [place] [address] p [phone] f [phone] [email or web address] Cosigned by Sergei Collins MD at 09/30/2024 9:57 PM EST documented in this [facility]12-04-2024 Note* Pre-Sedation Documentation - Sergei Collins MD [...] and proceed to administer sedation as planned. [id number] Note* Pre-Sedation Documentation - Sergei Collins MD [...] and proceed to administer sedation as planned. [id number] Miscellaneous Notes* Pre-Sedation Documentation - Sergei Collins [...] administer sedation as planned. documented in this [facility]12-03-2024 NoteADDENDUM: Pt scheduled for LHC with [...] dated 09/16/[address] Collins. [facility] [address] [address] Dept: [phone] Dept Loc: [phone] DATE of SERVICE: 09/16/24 TIME of SERVICE: [...] followed by Dr. Simeon at [facility]. He had an NSTEMI in January 2024. [...] Nose: Nose normal. Mouth/Throat: (more content not included)...[facility]12-03-2024 NoteADDENDUM: Pt scheduled for LHC with [...] no history of HF Frailty Score :[facility] Protocol: No H+ P copied to chart from Dr. Collins's progress note dated 09/16/[address] Collins. [facility] Cardi[facility] [address] [facility] [address] Dept: [phone] Dept Loc: [phone] DATE of SERVICE: 09/16/24 TIME of SERVICE: [...] followed by Dr. Simeon at [facility]. He had an NSTEMI in January 2024. [...] Nose: Nose normal. Mouth/Throat: (more content not included)...[facility]11-20-2024 NoteDx: CAD Procedure: [facility] Date/Time: 09/30/24 at 11am Surgeon: Karina Location: [facility] Admission: OUTPATIENT Patient is aware of date and time of procedure, added to [place] calendar, CATH placed on [facility]11-20-2024 History of Present illness Narrative* Sergei Collins MD - 09/16/2024 2:00 PM EST Images from the original note were not included. [facility] Cardi[facility] [address] [facility] [address] Dept: [phone] Dept Loc: [phone] DATE of SERVICE: 09/16/24 TIME of SERVICE: [...] followed by Dr. Simeon at [facility]. He had an NSTEMI in January 2024. [...] CREATININE @LASTCMP@ No results found for: TSH, K9LDMYI, L7EQGDF, THYROIDAB No results found for: HGBA1C No [...] CLINIC PERFORMED 2. Coronary artery disease involving hamilton coronary artery of hamilton heart without angina pectoris - Case Request Health And Wellness Coach: Left heart cath / coronary angiography w [...] week after Thanksgiving. Sergei Collins MD, RAH, [facility], [facility] Manager Med Surg, Department of Cardiovascular Disease Clinical Social Work Therapist, [facility] Clinical Social Work Therapist, [facility] Anticoagulation Management Service Interventional Cardiology Clinical Professor of Internal Medicine, [facility] Cardiology-[address] [address] p [phone] f [phone] [email or web address] Disclaimer Captured images seen in this note from are not a substitute for a comprehensive interpretation of the entire data set as reflected by the interpreting physician with regard to radiology, echocardiography, and other diagnostic images. This note may have been dictated using ThoughtBox Practice Edition 2.6 and/or [employer] Voice Recognition Feature. The document was proofread, however unrecognized voice recognition field crew chief errors may be present. documented in this [facility]11-19-2024 Telephone encounter Note* Telephone Encounter - Suellen Donovan RN - 09/15/2024 11:01 AM EST Patient calls and states that tannery gummer had changed his medications. Patient is not taking hydrochlorothiazide 25 mg daily and Atorvastatin 40 mg daily (patient was previously on 80 mg). Suellen Donovan RN [facility]11-19-2024 Miscellaneous Notes* Telephone Encounter - Suellen Donovan RN - 09/15/2024 11:01 AM EST Patient calls and states that tannery gummer had changed his medications. Patient is not taking hydrochlorothiazide 25 mg daily and Atorvastatin 40 mg daily (patient was previously on 80 mg). Suellen Donovan RN documented in this encounterBelle[facility] Hospital11-19-2024 Telephone encounter Note * Telephone Encounter - Suellen Donovan RN - 09/15/2024 10:41 AM EST Patient notified of results and provider's instructions. Patient verbalizes understanding. Suellen Donovan RN [facility]11-19-2024 Miscellaneous Notes* Telephone Encounter - Suellen Donovan [...] do in 2-3 weeks. documented in this encounterBellevue Hospital11-19-2024 Telephone encounter Note * Telephone Encounter - Chloé Hernández RN - 09/15/2024 9:11 AM EST Called and left a voicemail for the patient to call back and ask for a nurse to receive the providers message. Also sent MyChart msg [facility]11-18-2024 Telephone encounter Note* Telephone Encounter - Palak Rosales LPN - 09/14/2024 1:18 PM EST Left message to call & speak to nurse re: results. Palak Rosales LPN [facility]11-18-2024 Telephone encounter Note* Telephone Encounter - Palak Rosales LPN - 09/14/2024 1:16 PM EST ----- Message from Sher Jules MD sent at 09/13/2024 2:02 PM EST ----- Hyponatremia. Hyperkalemia. Mild anemia. Follow up lab tests needed. Please do in 2-3 weeks. [facility]11-15-2024 NoteHNO ID: [id number] Author: SHER JULES MD Service: ? Author Type: Physician Type: Progress Notes Filed: 09/11/2024 12:11 Note Text: This note was created using [employer]. Subjective Patient presents with: 6 Month Exam [...] Mixed Sleep Apnea Coronary Artery Disease Involving [place] Coronary Artery of [place] Heart Without Angina Pectoris Obesity, Class I, [...] Plan ASSESSMENT/PLAN: 1. 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 2. Stented coronary artery - ICD9: V45.82, ICD10: Z95.5 Colonoscopy deferred till January 2025. 3. Essential hypertension - ICD9: 401.9, ICD10: I10 - Worsening control - Continue current medications - Reviewed risks of hypertension and principles of treatment - I defer to his tannery gummer. - COMPLETE BLOOD COUNT 4. Hyperlipidemia with target LDL less than 70 - ICD9: 272.4, ICD10: E78.5 - Control undetermined, due for labs - Continue current medications - COMPREHENSIVE METABOLIC PANEL - LIPID PANEL, NONFASTING 5. Well controlled type 2 diabetes mellitus with neurological manifestations (more content not included)...[facility]11-15-2024 History of Present illness Narrative* Sher Jules MD - 09/11/2024 11:16 AM EST This note was created using emoteShareriter. Subjective Patient presents with: 6 Month Exam [...] Mixed Sleep Apnea Coronary Artery Disease Involving [place] Coronary Artery of [place] Heart Without Angina Pectoris Obesity, Class I, [...] Plan ASSESSMENT/PLAN: 1. Coronary artery disease involving hamilton coronary artery of hamilton heart without angina pectoris- ICD9: 414.01, ICD10: I25.10 (primary diagnosis) Stable. 2. Stented coronary artery - ICD9: V45.82, ICD10: Z95.5 Colonoscopy deferred till January 2025. 3. Essential hypertension - ICD9: 401.9, ICD10: I10 - Worsening control - Continue current medications - Reviewed risks of hypertension and principles of treatment - I defer to his tannery gummer. - COMPLETE BLOOD COUNT 4. Hyperlipidemia with [...] URINE Sher Jules MD documented in this encounterBelle[facility]09-[facility]-2024 Telephone encounter Note * Telephone Encounter - [...] Lovell MA July 03, 2024 11:30 AM [facility]09-06-2024 Miscellaneous Notes* Telephone Encounter - Jayson Lovell [...] 03, 2024 11:30 AM documented in this encounterBellevue Hospital09-06-2024 Telephone encounter Note * Telephone Encounter - [...] Lovell MA July 03, 2024 10:31 AM [facility]09-06-2024 Miscellaneous Notes* Telephone Encounter - Jayson Lovell [...] 03, 2024 10:31 AM documented in this encounterBellevue Hospital08-30-2024 NoteHNO ID: [id number] Author: GOMEZ SCHWAB, ? Service: ? Author [...] Objective: Patient presents to clinic ambulating in [facility] Vasc: DP and PT pulses are faintly [...] to RTC in 3-4 months. Gomez Schwab [facility]08-30-2024 History of Present illness Narrative* Gomez Schwab [...] Objective: Patient presents to clinic ambulating in [facility] Vasc: DP and PT pulses are faintly [...] Care Cheryle Merritt LPN documented in this encounterBellevue Hospital08-30-2024 NoteHNO ID: [id number] Author: CHERYLE MERRITT LPN Service: ? Author Type: LICENSED NURSE Type: Progress Notes Filed: 06/26/2024 13:20 Note Text: AMB ROOMING INTAKE FLOWSHEET DATA Patient presents with: Left Foot - Established Patient, Follow Up, Diabetic Foot Care Right Foot - Established Patient, Follow Up, Diabetic Foot Care [facility] Telephone encounter Note* Telephone Encounter - Palak Rosales LPN - 06/16/2024 11:57 AM EDT Patient has refill for Metformin at [facility], written 02/25/2024. Marie will contact his pharmacy. Palak Rosales LPN [facility]08-20-2024 Miscellaneous Notes* Telephone Encounter - Palak Rosales LPN - 06/16/2024 11:57 AM EDT Patient has refill for Metformin at [facility], written 02/25/2024. Marie will contact his pharmacy. Palak Rosales LPN documented in this encounterBellevue Hospital06-11-2024 History of Present illness Narrative* Nargis Yin, - 04/07/2024 9:17 AM EDT Images from the original note were not included. [facility] DEPARTMENT OF VASCULAR SURGERY OUTPATIENT VISIT DATE April 07, 2024 OUTPATIENT VISIT TYPE ESTABLISHED SERVICE DATE: 04/07/2024 SERVICE TIME: 9:18 AM PRIMARY CARE PHYSICIAN: Sher Jules MD HISTORY OF PRESENT ILLNESS: Mr. uHtson is a 74 year old male who [...] patches (vein to each profunda, Bovine to TOWING PILOT to SFA origins. Extensive profundaplasty on left. November 2009 Hx L SFA atherectomy complicated by thrombus requiring thrombolysis and stent of popliteal. September 07, 2010 RLE MIXING PLANT DUMPER to 3mm, Atheterctomy and MIXING PLANT DUMPER to 6mm. Also with right retrograde PT access. Left stent was patent at that time with 80% stenosis of distal popliteal. R with 80% profunda lesion. 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 Coronary artery disease Dermatophytosis of nail 12/29/2007 Diabetic peripheral neuropathy (HCC) 05/17/2014 DVT of leg (deep venous thrombosis) ([facility]) 11/16/2013 post-op CABG, rx with Xarelto Hypertrophy of prostate without urinary obstruction and other lower urinary tract symptoms (LUTS) 12/29/2007 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/29/2007 Non-ST elevation myocardial infarction (NSTEMI) 10/17/2013 Nonspecific abnormal results of liver function study 04/29/2008 Obesity, unspecified 12/29/2007 Other and unspecified hyperlipidemia PAD (peripheral artery disease) ([facility]) 08/05/2009 Personal history of other malignant neoplasm [...] 180 days. Miscellaneous Medical Supply (COMPRESSION STOCKINGS) [facility] COMPRESSION STOCKINGS KNEE HI 20-30 WT M79.89 [...] 2024 TIME: 9:18 AM documented in this encounterBellevue Hospital06-11-2024 History of Present illness Narrative* Gem Bass MD - 04/07/2024 8:10 AM EDT HISTORY AND PHYSICAL Marie Hutson 1950 REFERRING PHYSICIAN: Sher Jules MD CHIEF COMPLAINT: Colonoscopy Consult (Last colonoscopy 11/2018) HPI: The patient is a 74 year old male referred for endoscopy. Marie notes recent VA in January of this year; he had two stents placed for CAD. He is presently on plavix. He denies blood in stools; he denies abdominal pain; he denies changes in bowel habit.s He had a colonoscopy in 2019 with findings of a tubular adenoma He denies chest pain or shortness of breath. 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 Coronary artery disease Dermatophytosis of nail 12/29/2007 Diabetic peripheral neuropathy (HCC) 05/17/2014 DVT of leg (deep venous thrombosis) ([facility]) 11/16/2013 post-op CABG, rx with Xarelto Hypertrophy of prostate without urinary obstruction and other lower urinary tract symptoms (LUTS) 12/29/2007 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/29/2007 Non-ST elevation myocardial infarction (NSTEMI) 10/17/2013 Nonspecific abnormal results of liver function study 04/29/2008 Obesity, unspecified 12/29/2007 Other and unspecified hyperlipidemia PAD (peripheral artery disease) ([facility]) 08/05/2009 Personal history of other malignant neoplasm of skin 11/05/2010 skin cancer Postoperative anemia 10/25/2013 Transfused on 10/25 1 U PRBC. H&H 9.2/26.3. DC on diuretic taper for dilutional component and MVI with iron and repeat as outpt Primary osteoarthritis of left knee 02/21/2018 [facility]. Type II or unspecified [...] 180 days. Miscellaneous Medical Supply (COMPRESSION STOCKINGS) [facility] COMPRESSION STOCKINGS KNEE HI 20-30 WT M79.89 [...] Assessment IMPRESSION: history of colon polyp, recent VA PLAN: I have discussed the above with the patient. Given his recent VA, it would be reasonable to postpone colonoscopy [...] colonic polyps (I25.10) Coronary artery disease involving hamilton coronary artery of hamilton heart, unspecified whether angina present I have confirmed and edited as necessary, the PFSH and ROS obtained by others. Consultation requested by Dr. Sher Jules for an opinion regarding patient's history of colon polyp and recent VA. My final recommendations will be communicated back to the requesting physician by way of shared Medical record or letter to requesting physician via US mail. Medical Decision Making: Problems: Low: Stable chronic illness Risk: Low: Low risk from testing/treatment Medical Decision Making Level: 3 - Low Gem Bass MD documented in this encounterBellevue Hospital06-10-2024 History of Present illness Narrative* Bib Patterson MD - 04/06/2024 5:28 PM EDT Images from the original note were not included. Bib Patterson MD Interventional Cardiology [address] [place] [address] [phone] Chief Complaint Patient presents with: Follow Up HISTORY OF PRESENT ILLNESS: Mr. Hutson is a 74 year old male seen in my office today for assessment management patient had prior history of severe two-vessel coronary artery disease with bypass surgery WRIGHT to the LAD vein graft to the right and vein graft to the recently admitted to [facility] because of unstable angina underwent stenting of the hamilton right after the vein graft to the [...] PAST MEDICAL HISTORY Diagnosis Date Atherosclerosis of hamilton arteries of the extremities with intermittent claudication 09/07/2010 BENIGN NEOPLASM LG BOWEL 07/29/2008 Tubular adenoma. 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 Coronary artery disease Dermatophytosis of nail 12/29/2007 Diabetic peripheral neuropathy (HCC) 05/17/2014 DVT of leg (deep venous thrombosis) ([facility]) 11/16/2013 post-op CABG, rx with Xarelto Hypertrophy of prostate without urinary obstruction and other lower urinary tract symptoms (LUTS) 12/29/2007 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/29/2007 Non-ST elevation myocardial infarction (NSTEMI) 10/17/2013 Nonspecific abnormal results of liver function study 04/29/2008 Obesity, unspecified 12/29/2007 Other and unspecified hyperlipidemia PAD (peripheral artery disease) ([facility]) 08/05/2009 Personal history of other malignant neoplasm of skin 11/05/2010 skin cancer Postoperative anemia 10/25/2013 Transfused on 10/25 1 U PRBC. H&H 9.2/26.3. DC on diuretic taper for dilutional component and MVI with iron and repeat as outpt Primary osteoarthritis of left knee 02/21/2018 [facility]. Type II or unspecified [...] marginal Status post drug-eluting stent to the hamilton right continue medical therapy 4. Coronary artery disease involving hamilton coronary artery of hamilton heart without angina pectoris- ICD9: 414.01, ICD10: [...] to correct any errors. documented in this encounterBellevue Hospital06-10-2024 Instructions* Patient Instructions* Gem Bass MD - [...] If you do not have a responsible reefer truck driver (family member or friend) with you [...] preparation [facility] at your local pharmacy [facility] 09/2019 Bowel Preparation Instructions for: [...] your exam. 2 09/2019 documented in this encounterBellevue Hospital05-17-2024 History of Present illness Narrative* Gomez Schwab [...] right foot (I73.9) PAD (peripheral artery disease) ([facility]) (E11.42) Diabetic polyneuropathy associated with type 2 [...] Care Cheryle Merritt LPN documented in this encounterBellevue Hospital05-16-2024 NoteHNO ID: [id number] Author: ADILENE SANCHEZ APRN.CNM Service: Nuclear Medicine Author Type: Roller Embosser Type: Progress Notes Filed: 03/12/2024 09:38 Note [...] PATIENT PRESENTS WITH AN IMPLANTABLE OR ATTACHED GAUGE AND WEIGH MACHINE ADJUSTER: No CREATININE: Creatinine Date Value Ref Range [...] Discontinued PROCEDURE TYPE: NM Stress: 13.27 mCi Js84h-Gpqnzil was administered IV for Rest Imaging at 07:25 by JEVANGELINA. 33.96 mCi Ld47o-Evaqvxg was administered IV for Stress Imaging at 08:07 by JEVANGELINA. ADMINISTRATION TIME: 07:25 PATIENT DISCHARGED TO: Ambulatory patient, left [facility] department area. A Diagnostic radioactive procedure has taken place, with no further precautions necessary other than routine body substance precautions. More information regarding radiation safety can be found using this link: [email or web address]%20Nuclear%20Medicine%20Procedures.pdf SIGNATURE: Adilene Sanchez APRN.CNM PATIENT NAME: Marie Hutson DATE: March 12, 2024 TIME: 9:37 AM PAGER/CONTACT [phone] History of Present illness Narrative* Adilene Sanchez [...] PATIENT PRESENTS WITH AN IMPLANTABLE OR ATTACHED GAUGE AND WEIGH MACHINE ADJUSTER: No CREATININE: Creatinine Date Value Ref Range [...] Discontinued PROCEDURE TYPE: NM Stress: 13.27 mCi Gf28e-Sadfogb was administered IV for Rest Imaging [facility] 33.96 mCi Ox72d-Msixvyq was administered IV for Stress Imaging at 08:07 by [facility]. ADMINISTRATION TIME: 07:25 PATIENT DISCHARGED TO: Ambulatory patient, left [place] department area. A Diagnostic radioactive procedure has taken place, with no further precautions necessary other than routine body substance precautions. More information regarding radiation safety can be found usingthis link: [email or web address] 20Diagnostic%20Nuclear%20Medicine%20Procedures.pdf SIGNATURE: Adilene Sanchez APRN.CNM PATIENT NAME: Marie Hutson DATE: March 12, 2024 TIME: 9:37 AM PAGER/CONTACT #: documented in this encounterBellevue Hospital05-15-2024 Telephone encounter Note * Telephone Encounter - Edelmira Wilks RN - 03/11/2024 1:16 PM EDT Left message regarding reminder and instructions for stress test tomorrow. This included where to check in, length of test and no caffeine for 12 hours prior to test, [facility]05-15-2024 Miscellaneous Notes* Telephone Encounter - Edelmira Wilks RN - 03/11/2024 1:16 PM EDT Left message regarding reminder and instructions for stress test tomorrow. This included where to check in, length of test and no caffeine for 12 hours prior to test, documented in this encounterBellevue Hospital05-15-2024 History of Present illness Narrative* Sher Jules MD - 03/11/2024 12:50 PM EDT This note was created using [employer]. Subjective Marie Hutson is a 74 year [...] Mixed Sleep Apnea Coronary Artery Disease Involving [place] Coronary Artery of [place] Heart Without Angina Pectoris Obesity, Class I, [...] 180 days. Miscellaneous Medical Supply (COMPRESSION STOCKINGS) [facility] COMPRESSION STOCKINGS KNEE HI 20-30 WT M79.89 [...] - stable. 5. Coronary artery disease involving hamilton coronary artery of hamilton heart without angina pectoris- ICD9: 414.01, ICD10: I25.10 - Stable. Follow up per cardiology. 6. Hyperlipidemia with target LDL less than 70 - ICD9: 272.4, ICD10: E78.5 - Controlled - Continue current medications - Fasting labs soon. 7. Benign neoplasm of colon, unspecified part of colon - ICD9: 211.3, ICD10: D12.6 See #2. Sher Jules MD * Sher Jules MD - 03/11/2024 11:12 AM EDT [...] Vascular-[facility] Gomez Schwab DPM, Podiatry-[facility] Outside Specialist: Hourly Caregiver-Hugh Delacruz/Dr. Edward Adams Commissary Manager- Christian Merritt Medical/Family history review Reviewed and [...] in the past 6 weeks? Yes / VA 01/28/2024, [facility] for VA 8. Have you had difficulty with anesthesia [...] access questionnaires to [facility] Pool #[id number] documented in this encounterBellevue Hospital05-15-2024 Instructions* Patient Instructions* Sher Jules MD - 03/11/2024 11:30 AM EDT FASTING LABS ANY TIME SOON, PLUS URINE TESTING. documented in this encounterBellevue Hospital04-30-2024 Telephone encounter Note * Telephone Encounter - Anabel Ospina - 02/25/2024 10:32 AM EDT [facility] Patient has been identified by name and [...] oz) Not applicable Please advise. Anabel Ribera [facility]04-30-2024 Miscellaneous Notes* Telephone Encounter - Anabel Ospina - 02/25/2024 10:32 AM EDT Pharmacy verified [facility] Patient has been identified by name and [...] advise. Anabel Nguyen Pss documented in this encounterBellevue Hospital04-15-2024 History of Present illness Narrative* Bib Patterson MD - 02/10/2024 4:16 PM EDT Images from the original note were not included. Bib Patterson MD Interventional Cardiology [address] [place] [address] Chief Complaint Patient presents with: Hospital F/U [...] marginal artery years ago recently admitted to [facility] because of unstable angina repeat cardiac catheterization revealedpatent WRIGHT to the LAD severe calcified hamilton left main disease with patent vein graft [...] PAST MEDICAL HISTORY Diagnosis Date Atherosclerosis of hamilton arteries of the extremities with intermittent claudication [...] outpt Primary osteoarthritis of left knee 02/21/2018 [facility]. Type II or unspecified [...] tablet 3 Miscellaneous Medical Supply (COMPRESSION STOCKINGS) [facility] COMPRESSION STOCKINGS KNEE HI 20-30 WT M79.89 [...] Plan: 75 years old gentleman with severe hamilton coronary artery disease and history of bypass [...] medical therapy - CARDIAC REHAB II OUTPT (SD,MT) - NM CARDIAC PERF STRESS/PHARM - REGADENOSON [...] to correct any errors. documented in this encounterBellevue Hospital04-12-2024 History of Present illness Narrative* Sher Jules MD - 02/07/2024 1:52 PM EDT This note was created using emoteShareriter. Subjective Patient presents with: Hospital F/U: D/c from [facility] on 01/29 for chest pain an elevated [...] coronaries. Cardiac cath was done and PTCA, LISNADRO to lesion in distal RCA was done. [...] Mixed Sleep Apnea Coronary Artery Disease Involving [place] Coronary Artery of [place] Heart Without Angina Pectoris Obesity, Class I, [...] with meals. Miscellaneous Medical Supply (COMPRESSION STOCKINGS) [facility] COMPRESSION STOCKINGS KNEE HI 20-30 WT M79.89 [...] decreasing. Sher Jules MD documented in this encounterBellevue Hospital04-11-2024 Miscellaneous Notes* Telephone Encounter - Manda Duran MA - 02/06/2024 12:46 PM EDT Pt's notified that requested images have been received and are uploaded to [employer]. Pt scheduled 3pm Saturday per Dr. Patterson [...] have requested actual images be pushed to [facility] for his review. Manda Duran MA * Telephone Encounter - Manda Duran MA - 02/03/2024 11:53 AM EDT [facility] notified of need for images of CTA [...] to update Dr. Patterson. Pt went to [place] [facility] with chest pain and was admitted. [...] Patterson review his records from [facility] and let them know who he would recommend for the referral. The CTA and HC notes are scanned into [facility]. Asking that we call back to pt's . [phone] Please review and advise. Manda Duran MA documented in this encounterBellevue Hospital04-08-2024 History of Present illness Narrative* Marcela Perrin, [...] years. Marcela Perrin, RN documented in this encounterBellevue Hospital04-05-2024 History of Present illness Narrative* Lorraine BeebeFAVIAN - 01/31/2024 2:49 PM EDT TRANSITION CARE MANAGEMENT (TCM) INITIAL CONTACT Production Broacher Outreach Provider Action/FYI: TCM Initial contact with patient post discharge, spoke to patient. Patient identified by name and . TRANSITION CARE MANAGEMENT INITIAL OUTREACH DOCUMENTATION: 01/31/2024 Date of Outreach: Outreach Attempt 1: Contact Made Date of Discharge 01/30/2024 SUMMARY: -Pt discharged from [facility] on 02/19/24. -Admitted for: acute chest pain,elevated [...] medicines at this time. documented in this encounterBellevue Hospital04-04-2024 Discharge summary Author Debby Machuca [facility] January 30, 2024 11:40am Note Date/Time January 30, 2024 11:4 0am [facility] Medical Records Department [address] [place] [address] Instructions for Home/Discharge Instructions 01/30/24 1140 MR#: [id number] Acct: [id number] Name: MARIE HUTSON Rep #:[id number] : [...] MD; Dr. Sher Jules MD ~ Signed [facility] Work Phone: 1(214) 811-747504-04-2024 Discharge summary Author [facility] January 30, 2024 2:03pm Note Date/Time January 30, 2024 11:[address] [place] [address] Health System Medical Records Department [address] [place] [address] Discharge Summary 01/30/24 1140 MR#: [id number] Acct: [id number] Name: MARIE HUTSON Rep #:[id number] : [...] Code(s): I25.10 - Atherosclerotic heart disease of hamilton coronary artery without angina pectoris (3) History of coronary artery bypass graft x 3: Status: Acute Code(s): Z95.1 - Presence of aortocoronary bypass graft (4) Hypertension: Status: Chronic Code(s): I10 - Essential (primary) hypertension (5) Dyslipidemia: Status: Acute Code(s): E78.5 - Hyperlipidemia, unspecified Plan #Chest pain * Recent long distance drive to [place]. CT of the chest was overall negative [...] had a recent 16-hour car drive from [place] for few days prior to admission. He [...] Alberto at discharge?: Yes Done w/ Acute VA measure.: Yes Documented LVEF (%): 60 Discharge [...] Self Care Charges/Coding Visit Charges Inpatient E&M: 16872 Disch Hosp >30min 01/30/24 1403 <Electronically signed by Debby Machuca MD> Cosigner Signature (if applicable): CC: Dr. Debby Machuca MD; Dr. Sher Jules MD~ Signed [facility] Work Phone: 1(653) 857-423804-04-2024 Progress note Author Rubio Simeon [facility] January 30, 2024 9:25am Note Date/Time January 30, 2024 9:25 am [facility] Medical Records Department [address] [place] [address] Progress Note - Cardiology 01/30/24 0921 MR#: [id number] Acct: [id number] Name: MARIE HUTSON Rep #:[id number] : [...] MPV 9.1, Sodium 135 L, Potassium 3.5, [id number], Carbon Dioxide 28.0, Anion Gap 6, BUN [...] PLAN: Will try to get records from [facility]. (4) Hypertension: PLAN: Beta-blockers, amlodipine, clonidine, lisinopril. (5) Dyslipidemia: PLAN: Continue atorvastatin. PLAN: Plan The patient's blood pressure is controlled, then may discharge home later in theday. Patient wishes to follow-up with own tannery gummer. 01/30/24 0925 <Electronically signed by Rubio Simeon MD> Cosigner Signature (if applicable): CC: ~ Signed [facility] Work Phone: 1(725) 408-632904-04-2024 Progress note Author [facility] January 30, 2024 6:36am Note Date/Time January 30, 2024 6:36 am [facility] Medical Records Department [address] [place] [address] Progress Note - Hospitalist 01/30/24 0635 MR#: [id number] Acct: [id number] Name: MARIE HUTSON Rep #:[id number] : 1950 74 From: Geeta Mendoza MD PCP: Dr. Sher Jules MD Status:A DM IN [facility] Telemetry per discussion with staff this AM with questionable PAF, appears intermittent. Every EKG attempt however with SR. 01/30/24 0636 <Electronically signed by Geeta Mendoza MD> Cosigner Signature (if applicable): CC: ~ Signed [facility] Work Phone: [phone] Progress note Author Debby [facility] January 29, 2024 3:33pm Note Date/Time January 29, 2024 2:31 pm [facility] Medical Records Department [address] [place] [address] Progress Note 01/29/24 1422 MR#: [id number] Acct: [id number] Name: MARIE HUTSON Rep #:[id number] : [...] 91.9 H, Lymph % (Auto) 4.6 L, Bartholomew % (Auto) 2.2, Eos % (Auto) 0.0, [...] 3.9 01/28/24 20:36: Troponin I High Sens 86931 H*, Procalcitonin 0.04 01/28/24 23:04: POC Glucose 240 H 01/28/24 23:23: Urine Color Yellow, Urine Clarity Clear, Urine pH 6.0, Ur Specific [place] 1.010, Urine Protein Negative, Urine Glucose (UA) [...] APTT 73.0 H, Troponin I High Sens 82383 H* 01/29/24 03:01: WBC 15.5 H, RBC 2.68 L, Hgb 8.8 L, Hct 24.9 L, MCV 92.9, MCH 32.8 H, MCHC 35.3, RDW Std Deviation 39.3, RDW Coeff of Cedric 11.7, Plt Count 296,MPV 9.3, Immature Gran % (Auto) 0.700, Neut % (Auto) 88.5 H, Lymph % (Auto) 4.7 L, Bartholomew % (Auto) 6.0, Eos % (Auto) 0.0, [...] Sher Jules M.D. Performed By: Rupa Ramires, [facility] Physical Exam Const alert, oriented x3, no [...] pain * Recent long distance drive to [place]. CT of the chest was overall negative [...] cath. SCDs. Charges/Coding Visit Charges Inpatient E&M: 50411 Subs Hosp L2 01/29/24 1533 <Electronically signed by Debby Machuca MD> Debby Machuca MD Cosigner Signature (if applicable): CC: ~ Signed [facility] Work Phone: [phone]) 166-381904-03-2024 Discharge summary Author Kvng Jacobson [facility] January 28, 2024 10:13pm Note Date/Time January 28, 2024 6:11 pm [facility] Health System Medical Records Department [address] [place] [address] Emergency Department Summary 01/28/24 MR#: [id number] Acct: [id number] Name: MARIE HUTSON Rep #:[id number] : 1950 74 From: Kvng Jacobson DO PCP: Dr. Sher Jules MD Status:A DM IN Location: ICU ICU-[facility] History of Present Illness Chief Complaint: Chest Pain [facility] Medical History Branch retinal artery occlusion [...] patient but he himself had canceled the Health And Wellness Coach. He also informed me that MRI does [...] 91.9 H Lymph % (Auto) 4.6 L Bartholomew % (Auto) 2.2 Eos % (Auto) 0.0 [...] procedures): 30-74 minutes (40), Discussing w/Patient &/or Family/Cabinetmaker Supervisor, Discussing w/Consultants, Arranging Admission or Transfer and Performing Direct Patient Care at Bedside Discharge Plan Disposition Disposition: Acute Care Hospital [facility] Discharge Date/Time: 01/28/24 22:06 What to do if you have Problems For any increased pain, shortness of breath, bleeding, nausea or vomiting, chestpain, or any unexpected problems, contact your Primary Care Provider. Call [facility] ([phone]) or report to the closest Emergency Room. Call 911 if necessary. 01/28/242212 <Electronically signed by Kvng Jacobson DO> Cosigner Signature (if applicable): CC: Dr. Sher Jules MD ~ Signed [facility] Work Phone: 1(143) 547-618404-03-2024 History and physical note Author Geeta Mendoza [facility] January 28, 2024 10:12pm Note Date/Time January 28, 2024 7:42 pm [facility] Medical Records Department [address] [place] [address] H&P Exam - Hospitalist 01/28/241924 MR#: [id number] Acct: [id number] Name: MARIE HUTSON Rep #:[id number] : 1950 74 From: Geeta Mendoza MD PCP: Dr. Sher Jules MD Status:A DM IN [facility] HPI - General General Date of Admission: 01/28/24 Date of Service: 01/28/24 Chief Complaint: Chest pain HPI Narrative The patient is a 74 y/o M w/ PMHx: CAD s/p reported failed CABG 10/20/2013 with unclear intervention attempts, HTN, HLD, Diabetes mellitus type with chronic neuropathy, Former tobacco use, Chronic venous stasis disease, Obesity who presents to the [facility] ED on 01/28/24 with history of approximately 2 months prior having significant discomfort in his joints primarily of the bilateral wrist andhands however he had been in [place] and using his motorcycle quite a bit recentlyreturning via a very long at least 16-hour car drive from [place] this Saturday prior to current presentation with [...] next day however pending these workup findings. [facility] Medical History Branch retinal artery occlusion CAD [...] 91.9 H, Lymph % (Auto) 4.6 L, Bartholomew % (Auto) 2.2, Eos % (Auto) 0.0, [...] stasis disease, Obesity who presents to the [facility] ED on 01/28/24 with history of on [...] #6. CAD: Status post attempted CABG at [facility] 10/16/2013 supposedly failed, records requested, s/p PCI [...] 16 minutes. Charges/Coding Visit Charges Inpatient E&M: 00452 Init Hosp L3 Procedures Hospitalists Procedures: 15166 Advncd Care Plan 30 Min 01/28/241947 <Electronically [...] currently appears comfortable. 01/28/242211<Electronically signed by Geeta Mendoza MD> Cosigner Signature (if applicable): cc: Dr. Geeta Mendoza MD; Dr. Sher Jules MD ~* Signed [facility] Work Phone: 1([phone]) 344-591704-02-2024 History and physical note Author [facility] January 28, 2024 7:53pm Note Date/Time January 28, 2024 7:42 pm [facility] Medical Records Department [address] [facility] [place] [address] H&P Exam - Hospitalist 01/28/241924 MR#: [id number] Acct: [id number] Name: MARIE HUTSON Rep #:[id number] : [...] stasis disease, Obesity who presents to the [facility] ED on 01/28/24 with history of approximately 2 months prior having significant discomfort in his joints primarily of the bilateral wrist andhands however he had been in [place] and using his motorcycle quite a bit recentlyreturning via a very long at least 16-hour car drive from [place] this Saturday prior to current presentation with [...] next day however pending these workup findings. [facility] Medical History Branch retinal artery occlusion CAD (coronary artery disease) Diabetes mellitus, type 2 Former tobacco use Hyperlipemia Hypertension Obesity Home Medications aspirin 81 mg tablet,delayed release (Adult Low Dose Aspirin) 162 mg PO DAILY [facility] 04/18/16 [History Last Taken 04/19/16] metformin 500 [...] 91.9 H, Lymph % (Auto) 4.6 L, Bartholomew % (Auto) 2.2, Eos % (Auto) 0.0, [...] 19:35 EDT Reading Location ID and State: [facility] / [place] Tel , Service support , Assessment & Plan Assessment/Plan (1) Chest pain: PLAN: Plan The patient is a 74 y/o M w/ PMHx: CAD s/p reported failed CABG 10/20/2013 with unclear intervention attempts, HTN, HLD, Diabetes mellitus type with chronic neuropathy, Former tobacco use, Chronic venous stasis disease, Obesity who presents to the [facility] ED on 01/28/24 with history of on [...] #6. CAD: Status post attempted CABG at [facility] 10/16/2013 supposedly failed, records requested, s/p PCI [...] 16 minutes. Charges/Coding Visit Charges Inpatient E&M: 24627 Init Hosp L3 Procedures Hospitalists Procedures: 49508 Advncd Care Plan 30 Min 01/28/241947 <Electronically [...] MD; Dr. Sher Jules MD ~* Signed [facility] Work Phone: 1([phone]) 314-851604-02-2024 Consult note Author Rubio Simeon [facility] January 28, 2024 7:10pm Note Date/Time January 28, 2024 7:09 pm [facility] Medical Records Department [address] [place] [address] Consultation - Cardiology 01/28/24 1858 MR#: [id number] Acct: [id number] Name: MARIE HUTSON Rep #:[id number] : [...] PLAN: Will try to get records from [facility]. (4) Hypertension: PLAN: Nitrates. Start beta-blockers. Continue patient's amlodipine and clonidine. Also on ACEI. (5) Dyslipidemia: PLAN: Continue atorvastatin. HPI Consult Data Date of Consult: 01/28/24 HPI Narrative Reason for Consultation: Left arm pain HPI Narrative: This gentleman has past medical history significant for coronary artery disease with three-vessel CABG in 2012 at the [facility]. According to the patient, for the past [...] had a long road trip, driving from [place] to here over the weekend. According to him, it was a 15-hour drive. [facility] Medical History (Updated 01/28/24 @ 19:05 by [...] 91.9 H, Lymph % (Auto) 4.6 L, Bartholomew % (Auto) 2.2, Eos % (Auto) 0.0, [...] 91.9 H, Lymph % (Auto) 4.6 L, Bartholomew % (Auto) 2.2, Eos % (Auto) 0.0, [...] Simeon MD; Dr. Sher Jules MD~ Signed [facility] Work Phone: [phone]) 168-595904-01-2024 History of Present illness Narrative* Caterina Cornell, [...] PATIENT PRESENTS WITH AN IMPLANTABLE OR ATTACHED GAUGE AND WEIGH MACHINE ADJUSTER: No RADIOLOGY DEPARTMENT: General X-ray: Exam(s) Completed: Upper Extremity X- Ray(s): Wrist, bilateral PERIPHERAL IV DATA: Not applicable SIGNED BY: RT Micky(R) 2024 3:33 PM documented in this encounterBellevue Hospital04-01-2024 Instructions* Patient Instructions* Barb Suggs APRN.CNP - [...] help with the pain. documented in this encounterBellevue Hospital04-01-2024 History of Present illness Narrative* Barb Suggs APRN.CNP - 2024 3:05 PM EDT CC: Patient presents with: Arm Pain: X 6 weeks HPI Marie Hutson is a 74 year old male who presents today for above. He developed bilateral hand painthat started about 6 weeks ago when he was on vacation in [place]. 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 BPH without obstruction/lower urinary tract symptoms 12/29/2007 Coronary artery disease Dermatophytosis of nail 12/29/2007 Diabetic peripheral neuropathy (HCC) 05/17/2014 DVT of leg (deep venous thrombosis) ([facility]) 11/16/2013 post-op CABG, rx with Xarelto Hypertrophy of prostate without urinary obstruction and other lower urinary tract symptoms (LUTS) 12/29/2007 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/29/2007 Non-ST elevation myocardial infarction (NSTEMI) 10/17/2013 Nonspecific abnormal results of liver function study 04/29/2008 Obesity, unspecified 12/29/2007 Other and unspecified hyperlipidemia PAD (peripheral artery disease) ([facility]) 08/05/2009 Personal history of other malignant neoplasm of skin 11/05/2010 skin cancer Postoperative anemia 10/25/2013 Transfused on 10/25 1 U PRBC. H&H 9.2/26.3. DC on diuretic taper for dilutional component and MVI with iron and repeat as outpt Primary osteoarthritis of left knee 02/21/2018 [facility]. Type II or unspecified [...] with meals. Miscellaneous Medical Supply (COMPRESSION STOCKINGS) [facility] COMPRESSION STOCKINGS KNEE HI 20-30 WT M79.89 [...] Patient agreeable to treatment plan. Barb Suggs APRN.ARCHEOLOGY PROFESSOR documented in this encounterBellevue Hospital04-01-2024 Miscellaneous Notes* Telephone Encounter - Jayson Lovell MA - 2024 1:14 PM EDT Requested Prescriptions Pending Prescriptions Disp Refills amLODIPine (NORVASC) 10 mg tablet 90 tablet 3 Sig: Take 1 tablet by mouth once daily. Date of last office visit in primary care: 08/09/2023 Date of next office visit in primary care: 03/09/2024 Please advise. Thank you. Jayson Lovell MA. documented in this encounterBellevue Hospital04-01-2024 Miscellaneous Notes* Telephone Encounter - Jayson Lovell [...] you. Jayson Lovell MA. documented in this encounterBellevue Hospital04-01-2024 Miscellaneous Notes* Telephone Encounter - Colleen Rojo [...] time as the pain. Protocols used: Arm [id number] documented in this encounterBellevue Hospital03-11-2024 Miscellaneous Notes* Telephone Encounter - Madeleine Cisneros - 01/06/2024 9:40 AM EDT Patient said [place] and wants to know if short term refills can be sent to [place], [place]. Needs 20 day supply of hydralazine [...] Thank you. Madeleine Ribera. documented in this encounterBellevue Hospital02-23-2024 Miscellaneous Notes* Telephone Encounter - Marta Bradley [...] you. Suellen Donovan RN. documented in this encounterBellevue Hospital01-04-2024 History of Present illness Narrative* Kathy Schwabew [...] Objective: Patient presents to clinic ambulating in [facility] Vasc: DP and PT pulses are nonpalpable [...] type 2 diabetes mellitus with neurological manifestations ([facility]) (I73.9) PAD (peripheral artery disease) ([facility]) (L85.9) Hyperkeratosis (L60.0) Ingrowing toenail with infection [...] months. Gomez Schwab DPM documented in this encounterBellevue Hospital01-04-2024 Instructions* Patient Instructions* Gomez Schwab - 10/31/2023 [...] (or decreased sensation in your feet) a dialer should always cut your toenails. Be Careful [...] Go to your health care provider or dialer to treat these conditions. Cleanse left great toe with saline daily. Apply topical antibiotic Can f/u in 1 week for evaluation of wound or in 3 months documented in this encounterBellevue Hospital11-14-2023 History of Present illness Narrative* Veronica Sierra [...] 10, 2023 8:25 AM documented in this encounterBellevue Hospital10-13-2023 History of Past illness Narrative* Problem Noted [...] 10/23/2013 Overview: 63 y/o M, lives in [place], [place]. No skilled needs. DC home, requested f/u outpt [facility] within one week, Dr. Phi Heredia for new cards and Preventive cards and Preventive Nutrition. Primary Care: Sher Jules MD [address] [facility] [address] Aids Social Worker: Phi Leo M.D. [facility] Acute pain 10/22/2013 01/01/2014 Overview: [...] RV nl ECG: SB at 56 Cards: [facility] Cath: LM 80%, LAD 30% prox, RCA [...] recommend add when normalize -DC: , from [place], [place], no skilled needs. Request f/u Dr. Heredia in [place] and outpt [facility] Non-ST elevation myocardial infarction (NSTEMI) 10/17/2013 07/23/2014 [...] of this encounter (statuses as of 02/07/2024) [facility] History of Past illness Narrative* Problem Noted [...] 10/23/2013 Overview: 63 y/o M, lives in [place], [place]. No skilled needs. DC home, requested f/u outpt [facility] within one week, Dr. Phi Heredia for new cards and Preventive cards and Preventive Nutrition. Primary Care: Sher Jules MD [address] [facility] [address] Aids Social Worker: Phi Leo M.D. [facility] Acute pain 10/22/2013 01/01/2014 Overview: [...] Note: N/A Pacemaker Check: N/A Consults: Interventional Cardiology([facility]) DM: Yes, HgbA1c:6.5 on 10/18/13 Cardiac Surgical prep: PENDING SIGNATURE: Elida Campuzano CNP CHECKED BY: RANDI DATE of SERVICE: 10/19/2013 TIME of SERVICE: 9:44 AM SUMMARY 10/17/2013 07/23/2014 Overview: Admission: NSTEMI Echo: 56%, Stage 1 DD, RV nl ECG: SB at 56 Cards: [facility] Cath: LM 80%, LAD 30% prox, RCA [...] recommend add when normalize -DC: , from [place], [place], no skilled needs. Request f/u Dr. Heredia in [place] and outpt [facility] Non-ST elevation myocardial infarction (NSTEMI) 10/17/2013 07/23/2014 [...] of this encounter (statuses as of 02/11/2024) [facility] History of Present illness Narrative* Sher Jules MD - 08/09/2023 11:45 AM EDT This note was created using emoteShareriter. Subjective Marie Hutson is a 73 year [...] Neoplasm of Colon Pad (Peripheral Artery Disease) ([facility]) Screening for Ischemic Heart Disease Actinic Skin Damage Hx of Cabg Diabetic Peripheral Neuropathy ([facility]) Pvd (Peripheral Vascular Disease) ([facility]) Primary Osteoarthritis of Left Knee Obesity, Class I, Bmi 30-34.9 Sleep Apnea Mixed Sleep Apnea Branch Retinal Artery Occlusion, Left Coronary Artery Disease Involving [place] Coronary Artery of [place] Heart Without Angina Pectoris Current Outpatient Medications [...] with meals. Miscellaneous Medical Supply (COMPRESSION STOCKINGS) [facility] COMPRESSION STOCKINGS KNEE HI 20-30 WT M79.89 [...] exercise reviewed. 2. Coronary artery disease involving hamilton coronary artery of hamilton heart without angina pectoris- ICD9: 414.01, ICD10: [...] UR Sher Jules MD documented in this encounterBellevue Hospital09-29-2023 History of Present illness Narrative* Gomez Schwab [...] Objective: Patient presents to clinic ambulating in [facility] Vasc: DP and PT pulses are nonpalpable [...] type 2 diabetes mellitus with neurological manifestations ([facility]) (I73.9) PAD (peripheral artery disease) ([facility]) (L85.9) Hyperkeratosis Plan: Patient was seen and [...] Care Cheryle Merritt LPN documented in this encounterBellevue Hospital09-29-2023 Instructions* Patient Instructions* Gomez Schwab - 07/26/2023 [...] (or decreased sensation in your feet) a dialer should always cut your toenails. Be Careful [...] Go to your health care provider or dialer to treat these conditions. documented in this encounterBellevue Hospital07-10-2023 History of Present illness Narrative* Bib Patterson MD - 05/06/2023 3:35 PM EDT Images from the original note were not included. Bib Patterson MD Interventional Cardiology 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 Coronary artery disease involving hamilton coronary artery of hamilton heart without angina pectoris- ICD9: 414.01, ICD10: I25.10 Prior history of bypass surgery consisted of a WRIGHT to the LAD vein graft to the PDA and vein graftto his mitral 3. Hx of CABG - ICD9: V45.81, ICD10: Z95.1 Stable with no angina 4. PVD (peripheral vascular disease) (HCC) - ICD9: 443.9, ICD10: I73.9 Claudication on medication MD Bib Garner MD Follow up planning: One year Electronically signed by Bib Patterson MD on May 06, 2023, 3:35 PM The above note was partially created using a dictation recognition software. A reasonable attempt has been made to correct any errors. documented in this encounterBellevue Hospital06-12-2023 History of Present illness Narrative* Gomez Schwab [...] type 2 diabetes mellitus with neurological manifestations ([facility]) (I73.9) PAD (peripheral artery disease) ([facility]) Plan: Patient was seen and evaluated. Nails [...] concerns at this time. documented in this encounterBellevue Hospital06-05-2023 Instructions* Patient Instructions* Trevor Robison MD - [...] women, Target triglycerides <150 documented in this encounterBellevue Hospital06-05-2023 History of Present illness Narrative* Trevor Robison [...] tablet 3 Miscellaneous Medical Supply (COMPRESSION STOCKINGS) [facility] COMPRESSION STOCKINGS KNEE HI 20-30 WT M79.89 [...] Discussed with Patient: n/a Trevor Robison MD [facility] Neurology documented in this encounterBellevue Hospital06-01-2023 Miscellaneous Notes* Telephone Encounter - Palak Rosales [...] you. Palak Rosales LPN documented in this encounterBellevue Hospital05-24-2023 History of Present illness Narrative* Thompson Monzon MD - 03/20/2023 2:39 PM EDT Images from the original note were not included. Heart , V[facility]PART[facility] OF VASCULAR SURGERY VASCULAR SURGERY SERVICE [...] patches (vein to each profunda, Bovine to TOWING PILOT to SFA origins. Extensive profundaplasty on left. November 2009 Hx L SFA atherectomy complicated by thrombus requiring thrombolysis and stent of popliteal. September 07, 2010 RLE MIXING PLANT DUMPER to 3mm, Atheterctomy and MIXING PLANT DUMPER to 6mm. 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 [...] and unspecified hyperlipidemia PAD (peripheral artery disease) ([facility]) 08/05/2009 Personal history of other malignant neoplasm [...] CATHJ EA 2ND+ ORD ABDL [facility]09 LLE UNSPECIFIED ORAL SURGERY PROCEDURE, [...] tablet 3 Miscellaneous Medical Supply (COMPRESSION STOCKINGS) [facility] COMPRESSION STOCKINGS KNEE HI 20-30 WT M79.89 [...] Follow up 6 months documented in this encounterBellevue Hospital04-20-2023 Miscellaneous Notes* Allied Health - Arlene Zepeda [...] 14, 2023 1:33 PM documented in this encounterBellevue Hospital04-20-2023 Nurse Note* Noemi Blackwood RN - 02/14/2023 [...] 2023 TIME: 12:52 PM documented in this encounterBellevue Hospital04-12-2023 Instructions* Patient Instructions* Sher Jules MD - 02/06/2023 10:46 AM EDT FASTING LABS TODAY. SEE MEDICATION LIST FOR CHANGES. documented in this encounterBellevue Hospital04-12-2023 History of Present illness Narrative* Sher Jules MD - 02/06/2023 10:22 AM EDT This note was created using [employer]. Subjective Marie Hutson is a 73 year old male. His diabetes mellitus had been elevating and we messaged in November to double metformin. His glucoses were not much better. His resistant hypertension had been controlled. However, quinapril had been out of stock and he hasbeen out for a few days. The local [facility] did not have this either. His tannery gummer also prescribed carvedilol and he needed this [...] twice daily. Miscellaneous Medical Supply (COMPRESSION STOCKINGS) [facility] COMPRESSION STOCKINGS KNEE HI 20-30 WT M79.89 [...] Stable. Sher Jules MD documented in this encounterBellevue Hospital04-10-2023 Miscellaneous Notes* Telephone Encounter - Jayson Lovell [...] Barb Leon APRN.CNP * Telephone Encounter - Soledad Granados - 02/04/2023 10:40 AM EDT Marie Hutson is calling Sher Jules MD today to request Med Change Request for Quinapril.Please send to [facility]. Patient has been identified by name and birthdate. Duration of symptoms: N/A Person calling: self Call patient at: on cell [phone] (home) [phone] (cell) Was an appointment scheduled: No Closing statement: Symptom Call: Thank you for calling [facility], your call is very important. A nurse will call in approximately 2-4 hours during business hours. If this is an emergency, please contact 911. Soledad Granados documented in this encounterBellevue Hospital04-10-2023 Miscellaneous Notes* Telephone Encounter - Marta Bradley LPN - 02/04/2023 9:52 AM EDT Patient returned call and went over notes about rx with patient and he will check with his mail away pharmacy. documented in this encounterBellevue Hospital04-06-2023 Miscellaneous Notes* Telephone Encounter - Palak Rosales LPN - 01/31/2023 8:59 AM EDT Marie we did receive your refill request for Quinapril 40mg, however a new prescription was done 10/24/2022 for 180 tablets, 3 refills sent to [facility] mail-order pharmacy. Please check with your pharmacy. Palak Rosales LPN documented in this encounterBellevue Hospital03-22-2023 History of Present illness Narrative* Nargis Yin DO - 01/16/2023 5:00 PM EDT This office note has been dictated. Nargis Yin DO documented in this encounterBellevue Hospital03-22-2023 Miscellaneous Notes* Telephone Encounter - Palak Rosales LPN - 01/16/2023 4:46 PM EDT Marie, a new prescription was done for Quinapril 40mg on 10/24/2022, x180 tablets, 3 refills, sent to [facility]. Please check with your mail- order [...] you. Palak Rosales LPN documented in this encounterBellevue Hospital03-21-2023 Instructions* Patient Instructions* Nargis Yin DO - 01/15/2023 9:40 AM EDT Please send Dr. Yin a [employer] message after your CT scan for your circulation or call Dr. Yin at . We will review the scans and set you up with one of my partners for possible procedure/interventionto help your blood flow Continue walking and exercise as tolerated documented in this [facility]03-08-2023 Miscellaneous Notes* Telephone Encounter - Michelle [...] accordingly. Michelle Valverde LPN documented in this [facility]02-17-2023 Miscellaneous Notes* Telephone Encounter - Sher [...] seven days of my reply. See the [employer] message reply for my assessment and plan. I spent a total of 10 minutes reviewing the patient's prior medical records and current request formedical advice, prescribing medications or ordering tests (if applicable), replying to the patient,and documenting the encounter. documented in this encounterBellevue Hospital02-15-2023 Miscellaneous Notes* Telephone Encounter - Shelbie Galeanahl [...] patient. Shelbie Galeanahl Pss documented in this encounterBellevue Hospital12-27-2022 Miscellaneous Notes* Telephone Encounter - Palak Rosales [...] you. Palak Rosales LPN documented in this encounterBellevue Hospital12-14-2022 History of Present illness Narrative* Veronica Sierra MA - 10/10/2022 2:08 PM EST POPULATION HEALTH NAVIGATION OUTREACH Action/I FAST BUSY X2 MYCHART MESSAGE ANNUAL MEDICARE WELLNESS EXAM URINE ALBUMIN:CREATININE RATIO due on 05/23/2022 HBA1C due on 09/19/2022 DILATED RETINAL EXAM due on 10/26/2022 Pt identified by name and : NO Outreach Outcome/Action Unable to reach patient: Phone number not valid / voicemail full Truecallerhart message sent Did you use a PCP [...] 10, 2022 2:08 PM documented in this encounterBellevue Hospital12-07-2022 History of Present illness Narrative* Jules Dukes [...] and blood pressure. Patient was at the [place] emergency room on May 30 for vision disturbance in his left eye and was diagnosedwith CRAO. Patient has not seen a neurologist since hospital discharge and the precision assembly inspector did not make any definitive recommendations regarding anticoagulation. Patient denies any chest pain shortness of breath palpitations lightheadedness syncope orthopnea PND or edema. 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 BPH without obstruction/lower urinary tract symptoms 12/29/2007 Coronary artery disease Dermatophytosis of nail 12/29/2007 Diabetic peripheral neuropathy (HCC) 05/17/2014 DVT of leg (deep venous thrombosis) ([facility]) 11/16/2013 post-op CABG, rx with Xarelto Hypertrophy of prostate without urinary obstruction and other lower urinary tract symptoms (LUTS) 12/29/2007 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/29/2007 Non-ST elevation myocardial infarction (NSTEMI) 10/17/2013 Nonspecific abnormal results of liver function study 04/29/2008 Obesity, unspecified 12/29/2007 Other and unspecified hyperlipidemia PAD (peripheral artery disease) ([facility]) 08/05/2009 Personal history of other malignant neoplasm of skin 11/05/2010 skin cancer Postoperative anemia 10/25/2013 Transfused on 10/25 1 U PRBC. H&H 9.2/26.3. DC on diuretic taper for dilutional component and MVI with iron and repeat as outpt Primary osteoarthritis of left knee 02/21/2018 [facility]. Type II or unspecified [...] CATHJ EA 2ND+ ORD ABDL PEL/LXTR ART [facility] 11-17-09 LLE UNSPECIFIED ORAL SURGERY PROCEDURE, BY [...] twice daily. Miscellaneous Medical Supply (COMPRESSION STOCKINGS) [facility] COMPRESSION STOCKINGS KNEE HI 20-30 WT M79.89 [...] his follow-ups in the future at the [facility]. I have informed him that 2 of my esteemed colleagues see patients there and I will establish him with one of them. Jules Dukes MD documented in this encounterBellevue Hospital12-05-2022 History of Present illness Narrative* Trevor Robison MD - 10/01/2022 9:47 AM EST NEW PATIENT EVALUATION Subjective HPI Marie Hutson is a 72 year old left-handed male who presents for evaluation of left BRAO. Dr. Dukes is the referring physician. Dr. Sher Jules MD is the PCP. He had a left BRAO 05/2022. 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 Has [...] currently is OK but has been a rodriguze getting it corrected. 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 Trevor Robison MD [facility] Neurology documented in this encounterBellevue Hospital11-28-2022 Instructions* Patient Instructions* Kathie Garcia, BENCH HAND MACHINE.CREPING MACHINE OPERATOR HELPER - 09/24/2022 2:58 PM EST FACT SHEET FOR PATIENTS, PARENTS, AND CAREGIVERS EMERGENCY USE AUTHORIZATION (EUA) OF PAXLOVID FOR CORONAVIRUS DISEASE 2019 (COVID-19) You are being given this Fact Sheet because your healthcare provider believes it is necessary to provide you with PAXLOVID for the treatment of aydn-wp-cdejdjoz coronavirus disease (COVID-19) caused by the SARS-CoV-2 [...] virus. COVID-19 illnesses have ranged from very cdde-vb-pbruag, including illness resulting in . While information [...] is an investigational medicine used to treat opte-pr-dollwmrg COVID-19 in adults and children [12 years [...] of using PAXLOVID to treat people with oibt-bv-xmgistex COVID-19. The FDA has authorized the emergency use of PAXLOVID for the treatment of cpga-lr-hcepztyb COVID-19in adults and children [12 years of [...] the medicines you take, including prescription and hmor-cje-povznnl medicines, vitamins, and herbal supplements. Some medicines [...] oral midazolam Apalutamide Carbamazepine, phenobarbital, phenytoin Rifampin [place] s Wort (hypericum perforatum) Taking PAXLOVID with [...] (remdesivir) is FDA-approved for the treatment of ywpy-wz-wbnaokdl COVID-19 in certain adults and children. Talk with your doctor to see if Veklury is appropriate for you. Like PAXLOVID, FDA may also allow for the emergency use of other medicines to treat people with COVID-19. Go to https://www.fda.gov/krmpngsuj-xbqlttamzxre-zspaflqufko/oik-wtjkr-vlkqjlvamd-and- policy-framework/hninqcxer-wua-usbdnnqnlbsue for information on the emergency use of [...] if I am or ? There is immunology specialist treating women or mothers with PAXLOVID. For [...] go away. Report side effects to FDA [employer] at www.fda.gov/medwatch or call 7-399-AZT6591 or you can reportside effects to [employer]. at the contact information provided below. Website Fax number Telephone number [employer] How should I store PAXLOVID? Store PAXLOVID [...] (EUA). The EUA is supported by a Independence of Health and Human Service (HHS) declaration that circumstances exist to justify the emergency use of drugs and biological productsduring the COVID-19 pandemic. PAXLOVID for the treatment of totv-na-ontcxarm COVID-19 in adults and children [12 years [...] telephone number provided below. Website Telephone number wwwUeeeU.com (7-786-M49-XHTN) You can also go to www.RawFlow or call for more information. Pfizer Distributed by [employer] [place] [address] [id number] Revised: 12 January 2022 documented in this encounterBellevue Hospital11-28-2022 History of Present illness Narrative* Kathie Garcia APRN.CNS - 09/24/2022 2:40 PM EST Telemedicine Evaluation for COVID-19 Infection MyChart video visit did not work. Phone was used for evaluation of this patient. Location of patient: [place] PCP: Sher Jules MD SUBJECTIVE Marie Hutson [...] discussed Nirmatrelvir/Ritonavir (Paxlovid) Eligibility and Patient Discussion [facility] Formulary Restriction Criteria: Adult outpatients 18 years [...] 20 min in visit documented in this encounterBellevue Hospital11-15-2022 History of Present illness Narrative* Gomez Schwab [...] manifestations (HCC) (I73.9) PAD (peripheral artery disease) ([facility]) Plan: Patient was seen and evaluated. Nails [...] Care Cheryle Merritt LPN documented in this encounterBellevue Hospital11-15-2022 Instructions* Patient Instructions* Gomez Schwab - 09/11/2022 [...] (or decreased sensation in your feet) a dialer should always cut your toenails. Be Careful [...] Go to your health care provider or dialer to treat these conditions. documented in this encounterBellevue Hospital11-09-2022 History of Present illness Narrative* Jules Dukes [...] and blood pressure. Patient was at the [place] emergency room on May 30 for vision disturbance in his left eye and was diagnosedwith CRAO. Patient has not seen a neurologist since hospital discharge and the precision assembly inspector did not make any definitive recommendations regarding anticoagulation. He denies chest pain, shortness of breath, orthopnea, cough, edema, palpitations, PND, lightheadedness or syncope. 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 Miscellaneous Medical Supply (COMPRESSION STOCKINGS) [facility] COMPRESSION STOCKINGS KNEE HI 20-30 WT M79.89 [...] him to our neurologist here at the [place] office for further evaluation and management recommendations for this condition. 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 [facility]OCK[facility] COMPRESSION STOCKINGS KNEE HI 20-30 WT M79.89 [...] plan Barb Leon APRN.CNP documented in this encounterBellevue Hospital09-12-2022 Miscellaneous Notes* Telephone Encounter - Anabel Ribera - 07/09/2022 10:52 AM EDT Patient's mail order will not arrive in time. Request temp script. * Telephone Encounter - Anabel Ribera - 07/09/2022 10:52 AM EDT [facility] Patient has been identified by name and [...] advise. Anabel Nguyen Pss documented in this encounterBellevue Hospital09-01-2022 History of Present illness Narrative* Milady Hernández [...] would be contacted after review by PCP. Milady Hernández LPN documented in this encounterBellevue Hospital08-18-2022 Miscellaneous Notes* Telephone Encounter - Lara Ribera [...] notify patient. Lara Ribera documented in this encounterBellevue Hospital08-15-2022 Instructions* Patient Instructions* Sher Jules MD - 06/11/2022 7:45 PM EDT DISCONTINUE DOXAZOSIN 8 MG AT BEDTIME. START CLONIDINE TABLET TWICE A DAY. WATCH FOR LOW BLOOD PRESSURE <90 SYSTOLIC OR LOW HEART RATE <40. documented in this encounterBellevue Hospital08-15-2022 History of Present illness Narrative* Sher Jules MD - 06/11/2022 7:26 PM EDT This note was created using [employer]. Subjective Marie Hutson is a 72 year old male. He [...] twice daily. Miscellaneous Medical Supply (COMPRESSION STOCKINGS) [facility] COMPRESSION STOCKINGS KNEE HI 20-30 WT M79.89 [...] CARDIOLOGY Sher Jules MD documented in this encounterBellevue Hospital08-09-2022 Miscellaneous Notes* Telephone Encounter - Lorraine Beebe LPN - 06/05/2022 4:09 PM EDT Message left for pt to return call to arrange hospital follow with pcp. documented in this encounterBellevue Hospital08-02-2022 Miscellaneous Notes* Telephone Encounter - Manda Monroy LPN - 05/29/2022 11:[address] Merritt's office notified with information listed below. Manda Monroy LPN * Telephone Encounter - Sher Jules MD - 05/29/2022 11:19 AM EDT It sounds acute. Send to ER. * Telephone Encounter - Manda Monroy LPN - 05/29/2022 10:[address] Christian Merritt, fagot heater called in and he has pt at his office now. Pt being seen for blurredvision and has had a stroke in eye. Dr. Gonzales states concerned for risk of other strokes. He is holding pt there till he hears back if you want to see him today or should he send pt to ER. Please advise [phone]. Manda Monroy LPN documented in this encounterBellevue Hospital07-06-2022 History of Present illness Narrative* Gomez Schwab [...] varicosities noted. Non-Invasive Vascular Laboratory [facility] Lower Extremity Arterial Physiology Study Bilateral/Complete Date [...] in the home?: No documented in this encounterBellevue Hospital07-06-2022 Instructions* Patient Instructions* Gomez Schwab - 05/02/2022 [...] (or decreased sensation in your feet) a dialer should always cut your toenails. Be Careful [...] Go to your health care provider or dialer to treat these conditions. documented in this encounterBellevue Hospital05-31-2022 History of Present illness Narrative* Nargis Yin DO - 03/27/2022 8:31 AM EDT This office note has been dictated. Nargis Yin DO documented in this encounterBellevue Hospital05-04-2022 Miscellaneous Notes* Telephone Encounter - Lorraine Beebe LPN - 02/28/2022 3:35 PM EDT Last appt with CITY ADMINISTRATOR 02/20/22 Next appt with pcp 07/18/22. * [...] patient. Madeleine Mukherjee Pss documented in this encounterBellevue Hospital10-26-2018 History of Past illness Narrative* Problem Noted [...] 10/23/20132013 Overview: 63 y/o M, lives in [place], [place]. No skilled needs. DC home, requested f/u outpt [facility] CITY ADMINISTRATOR within one week, Dr. Phi Heredia for new cards and Preventive cards and Preventive Nutrition. Primary Care: Sher Jules MD [address] [facility] [address] Aids Social Worker: Phi Leo M.D. [place] [facility] Acute pain 10/22/2013 01/01/2014 Overview: [...] recommend add when normalize -DC: , from [place], [place], no skilled needs. Request f/u Dr. Heredia in [place] and outpt CTS CITY ADMINISTRATOR Non-ST elevation myocardial infarction (NSTEMI) 10/17/2013 07/23/2014 [...] of this encounter (statuses as of 02/28/2022) [facility] History of Past illness Narrative* Problem Noted [...] 10/23/20132013 Overview: 63 y/o M, lives in [place], [place]. No skilled needs. DC home, requested f/u outpt [facility] CITY ADMINISTRATOR within one week, Dr. Phi Heredia for new cards and Preventive cards and Preventive Nutrition. Primary Care: Sher Jules MD [address] [facility] [id number] Aids Social Worker: Phi Leo M.D. [place] [facility] Acute pain 10/22/2013 01/01/2014 Overview: [...] RV nl ECG: SB at 56 Cards: [facility] Cath: LM 80%, LAD 30% prox, RCA [...] recommend add when normalize -DC: , from [place], [place], no skilled needs. Request f/u Dr. Heredia in [place] and outpt CTS CITY ADMINISTRATOR Non-ST elevation myocardial infarction (NSTEMI) 10/17/2013 07/23/2014 [...] of this encounter (statuses as of 03/27/2022) [facility] History of Past illness Narrative* Problem Noted [...] 10/23/20132013 Overview: 63 y/o M, lives in [place], [place]. No skilled needs. DC home, requested f/u outpt [facility]TS CITY ADMINISTRATOR within one week, Dr. Phi Heredia for new cards and Preventive cards and Preventive Nutrition. Primary Care: Sher Jules MD [address] [facility] [id number] Aids Social Worker: Phi Leo M.D. [place] [facility] Acute pain 10/22/2013 01/01/2014 Overview: [...] RV nl ECG: SB at 56 Cards: [facility] Cath: LM 80%, LAD 30% prox, RCA [...] recommend add when normalize -DC: , from [place], [place], no skilled needs. Request f/u Dr. Heredia in [place] and outpt CTS CITY ADMINISTRATOR Non-ST elevation myocardial infarction (NSTEMI) 10/17/2013 07/23/2014 [...] of this encounter (statuses as of 05/02/2022) [facility] Past illness Narrative* Problem Noted [...] 10/23/20132013 Overview: 63 y/o M, lives in [place], [place]. No skilled needs. DC home, requested f/u outpt CTS CITY ADMINISTRATOR within one week, Dr. Phi Heredia for new cards and Preventive cards and Preventive Nutrition. Primary Care: Sher Jules MD [address] [facility] [id number] Aids Social Worker: Phi Leo M.D. [place] [facility] Acute pain 10/22/2013 01/01/2014 Overview: [...] RV nl ECG: SB at 56 [facility]: LM 80%, LAD 30% prox, RCA [...] recommend add when normalize -DC: , from [place], no skilled needs. Request f/u Dr. Heredia in [place] and outpt CTS CITY ADMINISTRATOR Non-ST elevation myocardial infarction (NSTEMI) 10/17/2013 07/23/2014 [...] of this encounter (statuses as of 05/29/2022) [facility] History of Past illness Narrative* Problem Noted [...] 10/23/20132013 Overview: 63 y/o M, lives in [place], [place]. No skilled needs. DC home, requested f/u outpt [facility] [facility] within one week, Dr. Phi Heredia for new cards and Preventive cards and Preventive Nutrition. Primary Care: Sher Jules MD [address] [facility] [address] Aids Social Worker: Phi Leo M.D. [facility] Cardiology Acute pain 10/22/2013 01/01/2014 Overview: DC [...] RV nl ECG: SB at 56 Cards: [facility] Cath: LM 80%, LAD 30% prox, RCA [...] recommend add when normalize -DC: , from [place], [place], no skilled needs. Request f/u Dr. Heredia in [place] and outpt [facility] [place] [facility] Non-ST elevation myocardial infarction (NSTEMI) 10/17/2013 07/23/2014 [...] of this encounter (statuses as of 06/06/2022) [facility] History of Past illness Narrative* Problem Noted [...] 10/23/20132013 Overview: 63 y/o M, lives in [place], [place]. No skilled needs. DC home, requested f/u outpt [place] [facility] within one week, Dr. Phi Heredia for new cards and Preventive cards and Preventive Nutrition. Primary Care: Sher Jules MD [address] [facility] [address] Aids Social Worker: Phi Leo M.D. [place] [facility] Cardiology Acute pain 10/22/2013 01/01/2014 Overview: [...] recommend add when normalize -DC: , from [place], [place], no skilled needs. Request f/u Dr. Heredia in [place] and outpt [facility] [facility] Non-ST elevation myocardial infarction (NSTEMI) 10/17/2013 07/23/2014 [...] of this encounter (statuses as of 06/14/2022) [facility] History of Past illness Narrative* Problem Noted [...] 10/23/20132013 Overview: 63 y/o M, lives in [place], [place]. No skilled needs. DC home, requested f/u outpt [facility] [facility] within one week, Dr. Phi Heredia for new cards and Preventive cards and Preventive Nutrition. Primary Care: Sher Jules MD [address] [facility] [address] Aids Social Worker: Phi Leo M.D. [place] [facility] Acute pain 10/22/2013 01/01/2014 Overview: [...] RV nl ECG: SB at 56 Cards: [facility] Cath: LM 80%, LAD 30% prox, RCA [...] recommend add when normalize -DC: , from [place], [place], no skilled needs. Request f/u Dr. Heredia in [place] and outpt [facility] [facility] Non-ST elevation myocardial infarction (NSTEMI) 10/17/2013 07/23/2014 [...] of this encounter (statuses as of 06/15/2022) [facility] History of Past illness Narrative* Problem Noted [...] 10/23/20132013 Overview: 63 y/o M, lives in [place], [place]. No skilled needs. DC home, requested f/u outpt [place] [facility] within one week, Dr. Phi Heredia for new cards and Preventive cards and Preventive Nutrition. Primary Care: Sher Jules MD [address] [facility] [address] Aids Social Worker: Phi Leo M.D. [facility] Acute pain 10/22/2013 01/01/2014 Overview: [...] RV nl ECG: SB at 56 Cards: [facility] Cath: LM 80%, LAD 30% prox, RCA [...] recommend add when normalize -DC: , from [place], [place], no skilled needs. Request f/u Dr. Heredia in [place] and outpt [facility] [facility] Non-ST elevation myocardial infarction (NSTEMI) 10/17/2013 07/23/2014 [...] of this encounter (statuses as of 06/28/2022) [facility] History of Past illness Narrative* Problem Noted [...] 10/23/20132013 Overview: 63 y/o M, lives in [place]. No skilled needs. DC home, requested f/u outpt [place] [facility] within one week, Dr. Phi Heredia for new cards and Preventive cards and Preventive Nutrition. Primary Care: Sher Jules MD [address] [facility] [address] Aids Social Worker: Phi Leo M.D. [facility] Acute pain 10/22/2013 01/01/2014 Overview: [...] RV nl ECG: SB at 56 Cards: [facility] Cath: LM 80%, LAD 30% prox, RCA [...] recommend add when normalize -DC: , from [place], no skilled needs. Request f/u Dr. Heredia in [place] and outpt [place] [facility] Non-ST elevation myocardial infarction (NSTEMI) 10/17/2013 07/23/2014 [...] of this encounter (statuses as of 07/11/2022) [facility] History of Past illness Narrative* Problem Noted [...] 10/23/20132013 Overview: 63 y/o M, lives in [place]. No skilled needs. DC home, requested f/u outpt [place] [facility] within one week, Dr. Phi Heredia for new cards and Preventive cards and Preventive Nutrition. Primary Care: Sher Jules MD [address] [facility] [address] Aids Social Worker: Phi Leo M.D. [place] [facility] Acute pain 10/22/2013 01/01/2014 Overview: [...] RV nl ECG: SB at 56 Cards: [facility] Cath: LM 80%, LAD 30% prox, RCA [...] recommend add when normalize -DC: , from [place], no skilled needs. Request f/u Dr. Heredia in [place] and outpt [facility] [facility] Non-ST elevation myocardial infarction (NSTEMI) 10/17/2013 07/23/2014 [...] of this encounter (statuses as of 07/18/2022) [facility] History of Past illness Narrative* Problem Noted [...] 10/23/20132013 Overview: 63 y/o M, lives in [place]. No skilled needs. DC home, requested f/u outpt [place] [facility] within one week, Dr. Phi Heredia for new cards and Preventive cards and Preventive Nutrition. Primary Care: Sher Jules MD [address] [facility] [address] Aids Social Worker: Phi Leo M.D. [facility] [facility] Acute pain 10/22/2013 01/01/2014 Overview: [...] RV nl ECG: SB at 56 Cards: [facility] Cath: LM 80%, LAD 30% prox, RCA [...] recommend add when normalize -DC: , from [place], no skilled needs. Request f/u Dr. Heredia in [place] and outpt [place] [facility] Non-ST elevation myocardial infarction (NSTEMI) 10/17/2013 07/23/2014 [...] of this encounter (statuses as of 09/05/2022) [facility] History of Past illness Narrative* Problem Noted [...] 10/23/20132013 Overview: 63 y/o M, lives in [place]. No skilled needs. DC home, requested f/u outpt [place] [facility] within one week, Dr. Phi Heredia for new cards and Preventive cards and Preventive Nutrition. Primary Care: Sher Jules MD [address] [facility] [address] Aids Social Worker: Phi Leo M.D. [place] [facility] Acute pain 10/22/2013 01/01/2014 Overview: [...] recommend add when normalize -DC: , from [place], no skilled needs. Request f/u Dr. Heredia in [place] and outpt [facility] [facility] Non-ST elevation myocardial infarction (NSTEMI) 10/17/2013 07/23/2014 [...] of this encounter (statuses as of 09/11/2022) [facility] History of Past illness Narrative* Problem Noted [...] 10/23/20132013 Overview: 63 y/o M, lives in [place]. No skilled needs. DC home, requested f/u outpt [place] [facility] within one week, Dr. Phi Heredia for new cards and Preventive cards and Preventive Nutrition. Primary Care: Sher Jules MD [address] [facility] [address] Aids Social Worker: Phi Leo M.D. [facility] Cardiology Acute pain 10/22/2013 01/01/2014 Overview: DC [...] Note: N/A Pacemaker Check: N/A Consults: Interventional Cardiology([facility]) DM: Yes, HgbA1c:6.5 on 10/18/13 Cardiac Surgical prep: PENDING SIGNATURE: Elida Campuzano CNP CHECKED BY: RANDI DATE of SERVICE: 10/19/2013 TIME of SERVICE: 9:44 AM SUMMARY 10/17/2013 07/23/2014 Overview: Admission: NSTEMI Echo: 56%, Stage 1 DD, RV nl ECG: SB at 56 Cards: [facility] Cath: LM 80%, LAD 30% prox, RCA [...] recommend add when normalize -DC: , from [place], no skilled needs. Request f/u Dr. Heredia in [place] and outpt [place] [facility]IST[facility] Non-ST elevation myocardial infarction (NSTEMI) 10/17/2013 07/23/2014 [...] of this encounter (statuses as of 09/24/2022) [facility] History of Past illness Narrative* Problem Noted [...] 10/23/20132013 Overview: 63 y/o M, lives in [place]. No skilled needs. DC home, requested f/u outpt [place] [facility] within one week, Dr. Phi Heredia for new cards and Preventive cards and Preventive Nutrition. Primary Care: Sher Jules MD [address] [facility] [address] Aids Social Worker: Phi Leo M.D. [facility] Acute pain 10/22/2013 01/01/2014 Overview: [...] RV nl ECG: SB at 56 Cards: [facility] Cath: LM 80%, LAD 30% prox, RCA [...] recommend add when normalize -DC: , from [place], no skilled needs. Request f/u Dr. Heredia in [place] and outpt [place] [facility]IST[facility] Non-ST elevation myocardial infarction (NSTEMI) 10/17/2013 07/23/2014 [...] of this encounter (statuses as of 10/01/2022) [facility] History of Past illness Narrative* Problem Noted [...] 10/23/20132013 Overview: 63 y/o M, lives in [place]. No skilled needs. DC home, requested f/u outpt [place] [facility] within one week, Dr. Phi Heredia for new cards and Preventive cards and Preventive Nutrition. Primary Care: Sher Jules MD [address] [facility] [id number] Aids Social Worker: Phi Leo M.D. [place] [facility] Acute pain 10/22/2013 01/01/2014 Overview: [...] recommend add when normalize -DC: , from [place], no skilled needs. Request f/u Dr. Heredia in [place] and outpt [place] [facility]IST[facility] Non-ST elevation myocardial infarction (NSTEMI) 10/17/2013 07/23/2014 [...] of this encounter (statuses as of 10/03/2022) [facility] History of Past illness Narrative* Problem Noted [...] 10/23/20132013 Overview: 63 y/o M, lives in [place]. No skilled needs. DC home, requested f/u outpt [place] [facility] within one week, Dr. Phi Heredia for new cards and Preventive cards and Preventive Nutrition. Primary Care: Sher Jules MD [address] [facility] [address] Aids Social Worker: Phi Leo M.D. [place] [facility] Acute pain 10/22/2013 01/01/2014 Overview: [...] RV nl ECG: SB at 56 Cards: [facility] Cath: LM 80%, LAD 30% prox, RCA [...] recommend add when normalize -DC: , from [place], no skilled needs. Request f/u Dr. 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 No skilled needs. DC home, requested f/u outpt [place] [facility] within one week, Dr. Phi Heredia for new cards and Preventive cards and Preventive Nutrition. Primary Care: Sher Jules MD [address] [facility] [address] Aids Social Worker: Phi Leo M.D. [place] [facility] Acute pain 10/22/2013 01/01/2014 Overview: [...] RV nl ECG: SB at 56 Cards: [facility] Cath: LM 80%, LAD 30% prox, RCA [...] recommend add when normalize -DC: , from [place], no skilled needs. Request f/u Dr. Heredia in [place] and outpt [place] [facility]MINISTR[facility] Non-ST elevation myocardial infarction (NSTEMI) 10/17/2013 07/23/2014 [...] of this encounter (statuses as of 10/30/2022) [facility] History of Past illness Narrative* Problem Noted [...] 10/23/20132013 Overview: 63 y/o M, lives in [place]. No skilled needs. DC home, requested f/u outpt [place] [facility] within one week, Dr. Phi Heredia for new cards and Preventive cards and Preventive Nutrition. Primary Care: Sher Jules MD [address] [facility] [address] Aids Social Worker: Phi Leo M.D. [place] [facility] Acute pain 10/22/2013 01/01/2014 Overview: [...] RV nl ECG: SB at 56 Cards: [facility] Cath: LM 80%, LAD 30% prox, RCA [...] recommend add when normalize -DC: , from [place], no skilled needs. Request f/u Dr. Heredia in [place] and outpt [place] [facility]ISTR[facility] Non-ST elevation myocardial infarction (NSTEMI) 10/17/2013 07/23/2014 [...] of this encounter (statuses as of 10/30/2022) [facility] History of Past illness Narrative* Problem Noted [...] 10/23/20132013 Overview: 63 y/o M, lives in [place]. No skilled needs. DC home, requested f/u outpt [place] [facility]ISTR[facility] within one week, Dr. Phi Heredia for new cards and Preventive cards and Preventive Nutrition. Primary Care: Sher Jules MD [address] [facility] [address] Aids Social Worker: Phi Leo M.D. [facility] Cardiology Acute pain 10/22/2013 01/01/2014 Overview: DC [...] RV nl ECG: SB at 56 Cards: [facility] Cath: LM 80%, LAD 30% prox, RCA [...] recommend add when normalize -DC: , from [place], [place], no skilled needs. Request f/u Dr. Heredia in [place] and outpt [place] [facility]ISTR[facility] Non-ST elevation myocardial infarction (NSTEMI) 10/17/2013 07/23/2014 [...] of this encounter (statuses as of 12/13/2022) [facility] History of Past illness Narrative* Problem Noted [...] 10/23/20132013 Overview: 63 y/o M, lives in [place]. No skilled needs. DC home, requested f/u outpt [place] [facility] within one week, Dr. Phi Heredia for new cards and Preventive cards and Preventive Nutrition. Primary Care: Sher Jules MD [address] [facility] [address] Aids Social Worker: Phi Leo M.D. [place] [facility] Acute pain 10/22/2013 01/01/2014 Overview: [...] RV nl ECG: SB at 56 Cards: [facility] Cath: LM 80%, LAD 30% prox, RCA [...] recommend add when normalize -DC: , from [place], no skilled needs. Request f/u Dr. Heredia in [place] and outpt [place] [facility]ISTR[facility] Non-ST elevation myocardial infarction (NSTEMI) 10/17/2013 07/23/2014 [...] of this encounter (statuses as of 12/14/2022) [facility] History of Past illness Narrative* Problem Noted [...] 10/23/20132013 Overview: 63 y/o M, lives in [place]. No skilled needs. DC home, requested f/u outpt [place] [facility]ISTR[facility] within one week, Dr. Phi Heredia for new cards and Preventive cards and Preventive Nutrition. Primary Care: Sher Jules MD [address] [facility] [address] Aids Social Worker: Phi Leo M.D. [place] [facility] Acute pain 10/22/2013 01/01/2014 Overview: [...] RV nl ECG: SB at 56 Cards: [facility] Cath: LM 80%, LAD 30% prox, RCA [...] recommend add when normalize -DC: , from [place], no skilled needs. Request f/u Dr. Heredia in [place] and outpt [place] [facility]ISTR[facility] Non-ST elevation myocardial infarction (NSTEMI) 10/17/2013 07/23/2014 [...] of this encounter (statuses as of 01/02/2023) [facility] of Past illness Narrative* Problem Noted [...] 10/23/20132013 Overview: 63 y/o M, lives in [place] No skilled needs. DC home, requested f/u outpt [place] [facility]ISTR[facility] within one week, Dr. Phi Heredia for new cards and Preventive cards and Preventive Nutrition. Primary Care: Sher Jules MD [address] [facility] [address] Aids Social Worker: Phi Leo M.D. [place] [facility] Acute pain 10/22/2013 01/01/2014 Overview: [...] RV nl ECG: SB at 56 Cards: [facility] Cath: LM 80%, LAD 30% prox, RCA [...] recommend add when normalize -DC: , from [place], no skilled needs. Request f/u Dr. Heredia in [place] and outpt [place] [facility]MINISTR[facility] Non-ST elevation myocardial infarction (NSTEMI) 10/17/2013 07/23/2014 [...] of this encounter (statuses as of 01/16/2023) [facility] Past illness Narrative* Problem Noted [...] 10/23/20132013 Overview: 63 y/o M, lives in [place] No skilled needs. DC home, requested f/u outpt [place] [facility]ISTR[facility] within one week, Dr. Phi Heredia for new cards and Preventive cards and Preventive Nutrition. Primary Care: Sher Jules MD [address] [facility] [address] Aids Social Worker: Phi Leo M.D. [place] [facility] Acute pain 10/22/2013 01/01/2014 Overview: [...] RV nl ECG: SB at 56 Cards: [facility] Cath: LM 80%, LAD 30% prox, RCA [...] recommend add when normalize -DC: , from [place], no skilled needs. Request f/u Dr. Heredia in [place] and outpt [place] [facility]MINISTRATOR Non-ST elevation myocardial infarction (NSTEMI) 10/17/2013 07/23/2014 [...] of this encounter (statuses as of 01/17/2023) [facility] illness Narrative* Problem Noted [...] 10/23/20132013 Overview: 63 y/o M, lives in [place] No skilled needs. DC home, requested f/u outpt [place] [facility]MINISTRATOR within one week, Dr. Phi Heredia for new cards and Preventive cards and Preventive Nutrition. Primary Care: Sher Jules MD [address] [facility] [address] Aids Social Worker: Phi Leo M.D. [facility] Cardiology Acute pain 10/22/2013 01/01/2014 Overview: DC [...] RV nl ECG: SB at 56 Cards: [facility] Cath: LM 80%, LAD 30% prox, RCA [...] recommend add when normalize -DC: , from [place], no skilled needs. Request f/u Dr. Heredia in [place] and outpt [place] [facility]MINISTRATOR Non-ST elevation myocardial infarction (NSTEMI) 10/17/2013 07/23/2014 [...] of this encounter (statuses as of 01/31/2023) [facility] Narrative* Problem Noted [...] 10/23/20132013 Overview: 63 y/o M, lives in [place] No skilled needs. DC home, requested f/u outpt [place] [facility]MINISTRATOR within one week, Dr. Phi Heredia for new cards and Preventive cards and Preventive Nutrition. Primary Care: Sher Jules MD [address] [facility] [address] Aids Social Worker: Phi Leo M.D. [place] [facility] Acute pain 10/22/2013 01/01/2014 Overview: [...] RV nl ECG: SB at 56 Cards: [facility] Cath: LM 80%, LAD 30% prox, RCA [...] recommend add when normalize -DC: , from [place], no skilled needs. Request f/u Dr. Heredia in [place] and outpt [place] [facility]MINISTR[facility] Non-ST elevation myocardial infarction (NSTEMI) 10/17/2013 07/23/2014 [...] of this encounter (statuses as of 02/04/2023) [facility] Narrative* Problem Noted [...] 10/23/20132013 Overview: 63 y/o M, lives in [place] No skilled needs. DC home, requested f/u outpt [place] [facility]ISTRATOR within one week, Dr. Phi Heredia for new cards and Preventive cards and Preventive Nutrition. Primary Care: Sher Jules MD [address] [facility] [address] Aids Social Worker: Phi Leo M.D. [place] [facility] Acute pain 10/22/2013 01/01/2014 Overview: [...] PENDING SIGNATURE: Elida Campuzano CNP CHECKED BY: ARNDI DATE of SERVICE: 10/19/2013 TIME of SERVICE: [...] recommend add when normalize -DC: , from [place], no skilled needs. Request f/u Dr. Heredia in [place] and outpt [place] [facility]MINISTR[facility] Non-ST elevation myocardial infarction (NSTEMI) 10/17/2013 07/23/2014 [...] of this encounter (statuses as of 02/04/2023) [facility] Past illness Narrative* Problem Noted [...] 10/23/20132013 Overview: 63 y/o M, lives in [place] No skilled needs. DC home, requested f/u outpt [place] [facility]MINISTRATOR within one week, Dr. Phi Heredia for new cards and Preventive cards and Preventive Nutrition. Primary Care: Sher Jules MD [address] [facility] [address] Aids Social Worker: Phi [facility] M.D. [facility] 10/22/2013 01/01/2014 Overview: DC [...] RV nl ECG: SB at 56 Cards: [facility] Cath: LM 80%, LAD 30% prox, RCA [...] recommend add when normalize -DC: , from [place], no skilled needs. Request f/u Dr. Heredia in [place] and outpt [place] [facility]MINISTRATOR Non-ST elevation myocardial infarction (NSTEMI) 10/17/2013 07/23/2014 [...] of this encounter (statuses as of 02/07/2023) [facility] Narrative* Problem Noted [...] 10/23/20132013 Overview: 63 y/o M, lives in [place] No skilled needs. DC home, requested f/u outpt [place] [facility]ISTRATOR within one week, Dr. Phi Heredia for new cards and Preventive cards and Preventive Nutrition. Primary Care: Sher Jules MD [address] [facility] [address] Aids Social Worker: Phi Leo M.D. [place] [facility] Acute pain 10/22/2013 01/01/2014 Overview: [...] RV nl ECG: SB at 56 Cards: [facility] Cath: LM 80%, LAD 30% prox, RCA [...] recommend add when normalize -DC: , from [place], no skilled needs. Request f/u Dr. Heredia in [place] and outpt [place] [facility]MINISTRATOR Non-ST elevation myocardial infarction (NSTEMI) 10/17/2013 07/23/2014 [...] of this encounter (statuses as of 02/15/2023) [facility] Narrative* Problem Noted [...] 10/23/20132013 Overview: 63 y/o M, lives in [place] No skilled needs. DC home, requested f/u outpt [place] [facility]MINISTR[facility] within one week, Dr. Phi Heredia for new cards and Preventive cards and Preventive Nutrition. Primary Care: Sher Jules MD [address] [facility] [address] Aids Social Worker: Phi Leo M.D. [place] [facility] Acute pain 10/22/2013 01/01/2014 Overview: [...] RV nl ECG: SB at 56 [facility]: LM 80%, LAD 30% prox, [...] recommend add when normalize -DC: , from [place], no skilled needs. Request f/u Dr. Heredia in [place] and outpt [place] [facility]MINISTR[facility] Non-ST elevation myocardial infarction (NSTEMI) 10/17/2013 07/23/2014 [...] of this encounter (statuses as of 03/29/2023) [facility] Narrative* Problem Noted [...] 10/23/20132013 Overview: 63 y/o M, lives in [place] No skilled needs. DC home, requested f/u outpt [place] [facility]ISTR[facility] within one week, Dr. Phi Heredia for new cards and Preventive cards and Preventive Nutrition. Primary Care: Sher Jules MD [address] [facility] [address] Aids Social Worker: Phi Leo M.D. [place] [...] Note: N/A Pacemaker Check: N/A Consults: Interventional Cardiology([facility]) DM: Yes, HgbA1c:6.5 on 10/18/13 Cardiac Surgical prep: PENDING SIGNATURE: Elida Campuzano CNP CHECKED BY: RANDI DATE of SERVICE: 10/19/2013 TIME of SERVICE: 9:44 AM SUMMARY 10/17/2013 07/23/2014 Overview: Admission: NSTEMI Echo: 56%, Stage 1 DD, RV nl ECG: SB at 56 Cards: [facility] Cath: LM 80%, LAD 30% prox, RCA [...] recommend add when normalize -DC: , from [place], no skilled needs. Request f/u Dr. Heredia in [place] and outpt [place] [facility]MINISTR[facility] Non-ST elevation myocardial infarction (NSTEMI) 10/17/2013 07/23/2014 [...] of this encounter (statuses as of 04/01/2023) [facility] Narrative* Problem Noted [...] 10/23/20132013 Overview: 63 y/o M, lives in [place] No skilled needs. DC home, requested f/u outpt [place] [facility]MINISTRATOR within one week, Dr. Phi eHredia for new cards and Preventive cards and Preventive Nutrition. Primary Care: Sher Jules MD [address] [facility] [address] Aids Social Worker: Phi Leo M.D. [place] [facility] Acute pain 10/22/2013 01/01/2014 Overview: [...] RV nl ECG: SB at 56 Cards: [facility] Cath: LM 80%, LAD 30% prox, RCA [...] recommend add when normalize -DC: , from [place], no skilled needs. Request f/u Dr. Heredia in [place] and outpt [place] [facility]MINISTRATOR Non-ST elevation myocardial infarction (NSTEMI) 10/17/2013 07/23/2014 [...] of this encounter (statuses as of 04/03/2023) [facility] Narrative* Problem Noted [...] 10/23/20132013 Overview: 63 y/o M, lives in [place] No skilled needs. DC home, requested f/u outpt [place] [facility]MINISTR[facility] within one week, Dr. Phi Heredia for new cards and Preventive cards and Preventive Nutrition. Primary Care: Sher Jules MD [address] [facility] [address] Aids Social Worker: Phi Leo M.D. [facility] Cardiology Acute pain 10/22/2013 01/01/2014 Overview: DC [...] recommend add when normalize -DC: , from [place], [place], no skilled needs. Request f/u Dr. Heredia in [place] and outpt [facility] [place] ADMINISTRATOR Non-ST elevation myocardial infarction (NSTEMI) 10/17/2013 07/23/2014 [...] of this encounter (statuses as of 04/09/2023) [facility] History of Past illness Narrative* Problem Noted [...] 10/23/2013 Overview: 63 y/o M, lives in [place], [place]. No skilled needs. DC home, requested f/u outpt [place] ADMINISTRATOR within one week, Dr. Phi Heredia for new cards and Preventive cards and Preventive Nutrition. Primary Care: Sher Jules MD [address] [facility] [id number] Aids Social Worker: Phi Leo M.D. [facility] Cardiology Acute pain 10/22/2013 01/01/2014 Overview: DC [...] RV nl ECG: SB at 56 Cards: [facility] Cath: LM 80%, LAD 30% prox, RCA [...] recommend add when normalize -DC: , from [place], [place], no skilled needs. Request f/u Dr. Heredia in [place] and outpt [place] ADMINISTRATOR Non-ST elevation myocardial infarction (NSTEMI) 10/17/2013 07/23/2014 [...] of this encounter (statuses as of 05/07/2023) [facility] History of Past illness Narrative* Problem Noted [...] 10/23/2013 Overview: 63 y/o M, lives in [place], [place]. No skilled needs. DC home, requested f/u outpt [place] ADMINISTRATOR within one week, Dr. Phi Heredia for new cards and Preventive cards and Preventive Nutrition. Primary Care: Sher Jules MD [address] [facility] [id number] Aids Social Worker: Phi Leo M.D. [place] [facility] Acute pain 10/22/2013 01/01/2014 Overview: [...] RV nl ECG: SB at 56 Cards: [facility] Cath: LM 80%, LAD 30% prox, RCA [...] recommend add when normalize -DC: , from [place], [place], no skilled needs. Request f/u Dr. Heredia in [place] and outpt [place] ADMINISTRATOR Non-ST elevation myocardial infarction (NSTEMI) 10/17/2013 07/23/2014 [...] of this encounter (statuses as of 07/27/2023) [facility] History of Past illness Narrative* Problem Noted Date Diagnosed Date Resolved Date Obesity, Class II, BMI 35-39.9 08/22/2018 08/06/2019 Solar Lentigines 12/18/2013 02/15/2016 Other seborrheic keratosis 12/18/2013 0 01/21/2015 [place] angioma 12/18/2013 02/15/2016 DVT of leg (deep [...] 10/23/2013 Overview: 63 y/o M, lives in [place], [place]. No skilled needs. DC home, requested f/u outpt [place] ADMINISTRATOR within one week, Dr. Phi Heredia for new cards and Preventive cards and Preventive Nutrition. Primary Care: Sher Jules MD [address] [facility] [id number] Aids Social Worker: Phi Leo M.D. [place] [facility] Cardiology Acute pain 10/22/2013 01/01/2014 Overview: [...] RV nl ECG: SB at 56 Cards: [facility] Cath: LM 80%, LAD 30% prox, RCA [...] recommend add when normalize -DC: , from [place], no skilled needs. Request f/u Dr. Heredia in [place] and outpt [place] ADMINISTRATOR Non-ST elevation myocardial infarction (NSTEMI) 10/17/2013 07/23/2014 [...] of this encounter (statuses as of 08/09/2023) [facility] History of Past illness Narrative* Problem Noted [...] 10/23/2013 Overview: 63 y/o M, lives in [place], [place]. No skilled needs. DC home, requested f/u outpt [place] ADMINISTRATOR within one week, Dr. Phi Heredia for new cards and Preventive cards and Preventive Nutrition. Primary Care: Sher Jules MD [address] [facility] [address] Aids Social Worker: Phi Leo M.D. [facility] Acute pain 10/22/2013 01/01/2014 Overview: [...] RV nl ECG: SB at 56 Cards: [facility] Cath: LM 80%, LAD 30% prox, RCA [...] recommend add when normalize -DC: , from [place], no skilled needs. Request f/u Dr. Heredia in [place] and outpt [place] ADMINISTRATOR Non-ST elevation myocardial infarction (NSTEMI) 10/17/2013 07/23/2014 [...] of this encounter (statuses as of 09/10/2023) [facility] History of Past illness Narrative* Problem Noted [...] 10/23/2013 Overview: 63 y/o M, lives in [place], [place]. No skilled needs. DC home, requested f/u outpt [place] ADMINISTRATOR within one week, Dr. Phi Heredia for new cards and Preventive cards and Preventive Nutrition. Primary Care: Sher Jules MD [address] [facility] [address] Aids Social Worker: Phi Leo M.D. [place] [facility] Acute pain 10/22/2013 01/01/2014 Overview: [...] RV nl ECG: SB at 56 Cards: [facility] Cath: LM 80%, LAD 30% prox, RCA [...] recommend add when normalize -DC: , from [place], no skilled needs. Request f/u Dr. Heredia in [place] and outpt [place] ADMINISTRATOR Non-ST elevation myocardial infarction (NSTEMI) 10/17/2013 07/23/2014 [...] of this encounter (statuses as of 10/01/2023) [facility] History of Past illness Narrative* Problem Noted [...] 10/23/2013 Overview: 63 y/o M, lives in [place]. No skilled needs. DC home, requested f/u outpt [place] ADMINISTRATOR within one week, Dr. Phi Heredia for new cards and Preventive cards and Preventive Nutrition. Primary Care: Sher Jules MD [address] [facility] [id number] Aids Social Worker: Phi Leo M.D. [facility] Acute pain 10/22/2013 01/01/2014 Overview: [...] RV nl ECG: SB at 56 Cards: [facility] Cath: LM 80%, LAD 30% prox, RCA [...] recommend add when normalize -DC: , from [place], no skilled needs. Request f/u Dr. Heredia in [place] and outpt [place] ADMINISTRATOR Non-ST elevation myocardial infarction (NSTEMI) 10/17/2013 07/23/2014 [...] of this encounter (statuses as of 11/03/2023) [facility] History of Past illness Narrative* Problem Noted [...] 10/23/2013 Overview: 63 y/o M, lives in [place], [place]. No skilled needs. DC home, requested f/u outpt [place] ADMINISTRATOR within one week, Dr. Phi Heredia for new cards and Preventive cards and Preventive Nutrition. Primary Care: Sher Jules MD [address] [facility] [address] Aids Social Worker: Phi Leo M.D. [place] [facility] Acute pain 10/22/2013 01/01/2014 Overview: [...] RV nl ECG: SB at 56 [facility]: LM 80%, LAD 30% prox, [...] recommend add when normalize -DC: , from [place], no skilled needs. Request f/u Dr. Heredia in [place] and outpt [place] ADMINISTRATOR Non-ST elevation myocardial infarction (NSTEMI) 10/17/2013 07/23/2014 [...] of this encounter (statuses as of 12/20/2023) [facility] History of Past illness Narrative* Problem Noted [...] 10/23/2013 Overview: 63 y/o M, lives in [place]. No skilled needs. DC home, requested f/u outpt [place] ADMINISTRATOR within one week, Dr. Phi Heredia for new cards and Preventive cards and Preventive Nutrition. Primary Care: Sher Jules MD [address] [facility] [address] Aids Social Worker: Phi Leo M.D. [place] [facility] Acute pain 10/22/2013 01/01/2014 Overview: [...] RV nl ECG: SB at 56 Cards: [facility] Cath: LM 80%, LAD 30% prox, RCA [...] recommend add when normalize -DC: , from [place], no skilled needs. Request f/u Dr. Heredia in [place] and outpt [place] ADMINISTRATOR Non-ST elevation myocardial infarction (NSTEMI) 10/17/2013 07/23/2014 [...] of this encounter (statuses as of 01/06/2024) [facility] History of Past illness Narrative* Problem Noted [...] 10/23/2013 Overview: 63 y/o M, lives in [place]. No skilled needs. DC home, requested f/u outpt [place] ADMINISTRATOR within one week, Dr. Phi Heredia for new cards and Preventive cards and Preventive Nutrition. Primary Care: Sher Jules MD [address] [facility] [address] Aids Social Worker: Phi Leo M.D. [place] [facility] Acute pain 10/22/2013 01/01/2014 Overview: [...] RV nl ECG: SB at 56 Cards: [facility] Cath: LM 80%, LAD 30% prox, RCA [...] recommend add when normalize -DC: , from [place], [place], no skilled needs. Request f/u Dr. Heredia in [place] and outpt [place] ADMINISTRATOR Non-ST elevation myocardial infarction (NSTEMI) 10/17/2013 07/23/2014 [...] of this encounter (statuses as of 01/28/2024) [facility] History of Past illness Narrative* Problem Noted [...] 10/23/2013 Overview: 63 y/o M, lives in [place]. No skilled needs. DC home, requested f/u outpt [place] ADMINISTRATOR within one week, Dr. Phi Heredia for new cards and Preventive cards and Preventive Nutrition. Primary Care: Sher Jules MD [address] [facility] [address] Aids Social Worker: Phi Leo M.D. [place] [facility] Acute pain 10/22/2013 01/01/2014 Overview: [...] RV nl ECG: SB at 56 Cards: [facility] Cath: LM 80%, LAD 30% prox, RCA [...] recommend add when normalize -DC: , from [place], no skilled needs. Request f/u Dr. Heredia in [place] and outpt [place] ADMINISTRATOR Non-ST elevation myocardial infarction (NSTEMI) 10/17/2013 07/23/2014 [...] of this encounter (statuses as of 01/28/2024) [facility] History of Past illness Narrative* Problem Noted [...] 10/23/2013 Overview: 63 y/o M, lives in [place]. No skilled needs. DC home, requested f/u outpt [place] ADMINISTRATOR within one week, Dr. Phi Heredia for new cards and Preventive cards and Preventive Nutrition. Primary Care: Sher Jules MD [address] [facility] [address] Aids Social Worker: Phi Leo M.D. [place] [facility] Acute pain 10/22/2013 01/01/2014 Overview: [...] RV nl ECG: SB at 56 Cards: [facility] Cath: LM 80%, LAD 30% prox, RCA [...] recommend add when normalize -DC: , from [place], no skilled needs. Request f/u Dr. Heredia in [place] and outpt [place] ADMINISTRATOR Non-ST elevation myocardial infarction (NSTEMI) 10/17/2013 07/23/2014 [...] of this encounter (statuses as of 2024) [facility] History of Past illness Narrative* Problem Noted [...] 10/23/2013 Overview: 63 y/o M, lives in [place]. [place] skilled needs. DC home, requested f/u outpt [place] ADMINISTRATOR within one week, Dr. Phi Heredia for new cards and Preventive cards and Preventive Nutrition. Primary Care: Sher Jules MD [address] [facility] [address] Aids Social Worker: Phi Leo M.D. [place] [facility] Acute pain 10/22/2013 01/01/2014 Overview: [...] RV nl ECG: SB at 56 Cards: [facility] Cath: LM 80%, LAD 30% prox, RCA [...] recommend add when normalize -DC: , from [place], [place] skilled needs. Request f/u Dr. Heredia in [place] and outpt [place] ADMINISTRATOR Non-ST elevation myocardial infarction (NSTEMI) 10/17/2013 07/23/2014 [...] of this encounter (statuses as of 01/28/2024) [facility] History of Past illness Narrative* Problem Noted [...] 10/23/2013 Overview: 63 y/o M, lives in [place]. [place] skilled needs. DC home, requested f/u outpt [place] ADMINISTRATOR within one week, Dr. Phi Heredia for new cards and Preventive cards and Preventive Nutrition. Primary Care: Sher Jules MD [address] [facility] [address] Aids Social Worker: Phi Leo M.D. [facility] Cardiology Acute pain 10/22/2013 01/01/2014 Overview: DC [...] RV nl ECG: SB at 56 Cards: [facility] Cath: LM 80%, LAD 30% prox, RCA [...] recommend add when normalize -DC: , from [place], no skilled needs. Request f/u Dr. Heredia in [place] and outpt [place] ADMINISTRATOR Non-ST elevation myocardial infarction (NSTEMI) 10/17/2013 07/23/2014 [...] of this encounter (statuses as of 01/31/2024) [facility] History of Past illness Narrative* Problem Noted [...] 10/23/2013 Overview: 63 y/o M, lives in [place]. [place] skilled needs. DC home, requested f/u outpt [place] ADMINISTRATOR within one week, Dr. Phi Heredia for new cards and Preventive cards and Preventive Nutrition. Primary Care: Sher Jules MD [address] [facility] [address] Aids Social Worker: Phi Leo M.D. [facility] [facility] Acute pain 10/22/2013 01/01/2014 Overview: [...] recommend add when normalize -DC: , [place], no skilled needs. Request f/u Dr. Heredia in [place] and outpt [place] ADMINISTRATOR Non-ST elevation myocardial infarction (NSTEMI) 10/17/2013 07/23/2014 [...] of this encounter (statuses as of 02/06/2024) [facility] Rohan Wallace [facility] Note Date/Time April 30, 2025 12:39 am [facility] Medical Records Department [address] [place] [address] Emergency Department Summary 04/30/25 MR#: [id number] Acct: [id number] Name: MARIE HUTSON Rep #:[id number] : [...] Prior similar symptoms: No Recent Illness/Hospitalization: No [facility] <Dr. 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 [facility] <Dr. Max Brooks MD - Last Filed: 04/30/25 00:23> [facility] Radiography Diagnostic Testing: Clinical Impression(s) from Imaging Studies Brain CT 04/29/25 23:08 IMPRESSION: No acute intracranial finding Reading Location: [facility] <Dr. Rohan Wallace MD - Last Filed: 04/30/25 00:30> [facility] Narrative Medical decision making narrative: Since patient is on antithrombotic is amnestic and over the age of 75 per the [address] CT head rule and Graham rule he will require imaging of his head to rule out intracranial bleed i.e. subdural hematoma, epidural hematoma, parenchymal contusion or subarachnoid hemorrhage. Patient's laceration will require repair. The repair was performed by Dr. Brooks. Radiography Diagnostic Testing: Clinical Impression(s) from Imaging Studies Brain CT 04/29/25 23:08 IMPRESSION: No acute intracranial finding Reading Location: [place] [address] CT of the head was reviewed by [...] Injury (Adult), ED Laceration Scalp Stitches or [place] Prescriptions: No Action clopidogrel 75 mg tablet [...] the emergency room for reevaluation Print Language: Uzbek Disposition Disposition: Home, Self Care What to do if you have Problems For any increased pain, shortness of breath, bleeding, nausea or vomiting, chestpain, or any unexpected problems, contact your Primary Care Provider. Call [facility] ([phone]) or report to the closest Emergency Room. Call 911 if necessary. 04/30/2529 <Electronically signed by Rohan Wallace MD> Cosigner Signature (if applicable): 04/30/2538 <Electronically signed by Max Brooks MD> CC: Dr. Sher Jules MD ~ Signed [facility] Work Phone: Evaluation note* Diagnosis Peripheral arterial disease (HCC)- Primary Peripheral vascular disease, unspecified [facility] Diagnosis Onychomycosis- Primary Dermatophytosis of nail [...] Hyperkeratosis Acquired keratoderma [facility] Diagnosis Onset Date Resolution Status Branch retinal artery occlusion acute History of atherosclerotic heart disease acute History of diabetes mellitus acute History of essential hypertension [facility] Work Phone: Evaluation note* Diagnosis Onset Date Resolution Status Branch retinal artery occlusion acute CVA (cerebral vascular accident) acute History of atherosclerotic heart disease acute History of diabetes mellitus acute History of essential hypertension [facility] Work Phone: Evaluation note* Diagnosis Hyperlipidemia [...] aortocoronary bypass status [facility] Essential hypertension- Primary Unspecified essential hypertension [facility] Diagnosis Essential hypertension Unspecified essential hypertension [facility] Essential hypertension- Primary Unspecified essential hypertension Need for influenza vaccination Need for prophylactic vaccination and inoculation against influenza Well controlled type 2 diabetes mellitus with neurological manifestations (HCC) Type II or unspecified type diabetes mellitus with neurological manifestations, not stated as uncontrolled [facility] Diagnosis Coronary artery disease involving hamilton coronary artery of hamilton heart without angina pectoris- Primary Essential hypertension Unspecified essential hypertension 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 Central artery occlusion of retina [facility] Diagnosis Onychomycosis- Primary Dermatophytosis of nail [...] vascular disease, unspecified [facility] Diagnosis COVID-19 virus infection- Primary [facility]* Diagnosis Central retinal artery occlusion of left eye- Primary Central artery occlusion of retina [facility]* Diagnosis Primary hypertension- Primary Unspecified essential hypertension Coronary artery disease involving hamilton coronary artery of hamilton heart without angina pectoris Hx of CABG Postsurgical aortocoronary bypass status PAD (peripheral artery disease) (HCC) Peripheral vascular disease, unspecified [facility] Diagnosis Essential hypertension Unspecified essential hypertension [facility] Diagnosis Hyperlipidemia with target LDL less than 70 Other and unspecified hyperlipidemia Essential hypertension Unspecified essential hypertension [facility] Diagnosis Essential hypertension- Primary Unspecified essential hypertension [facility]* Diagnosis Well controlled type 2 diabetes mellitus with neurological manifestations (HCC)- Primary Type II or unspecified type diabetes mellitus with neurological manifestations, not stated as uncontrolled [facility] Diagnosis Essential hypertension Unspecified essential hypertension [facility]* Diagnosis Peripheral vascular disease (HCC)- Primary Peripheral vascular disease, unspecified Screening for nephropathy [facility] Diagnosis Essential hypertension Unspecified essential hypertension [facility] Diagnosis Essential hypertension Unspecified essential hypertension [facility] Diagnosis Well controlled type 2 diabetes mellitus with neurological manifestations (HCC)- Primary Type II or unspecified type diabetes mellitus with neurological manifestations, not stated as uncontrolled Essential hypertension Unspecified essential hypertension Hyperlipidemia with target LDL less than 70 Other and unspecified hyperlipidemia PAD (peripheral artery disease) (HCC) Peripheral vascular disease, unspecified [facility] Diagnosis Peripheral vascular disease (HCC) Peripheral vascular disease, unspecified [facility] Diagnosis 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- Primary Arterial branch occlusion of retina Diabetic peripheral neuropathy (HCC) Type II or unspecified type diabetes mellitus with neurological manifestations, not stated as uncontrolled [facility] Diagnosis Atherosclerotic peripheral vascular disease with intermittent claudication (HCC)- Primary Atherosclerosis of hamilton arteries of the extremities with intermittent claudication Peripheral arterial disease (HCC) Peripheral vascular disease, unspecified [facility]* Diagnosis Onychomycosis- Primary Dermatophytosis of [...] Hyperkeratosis Acquired keratoderma [facility] Diagnosis Screening for ischemic heart disease- Primary Coronary artery disease involving hamilton coronary artery of hamilton heart without angina pectoris Hx of CABG Postsurgical aortocoronary bypass status PVD (peripheral vascular disease) ([facility]) Peripheral vascular disease, unspecified [facility] Diagnosis Onychomycosis- Primary Dermatophytosis of nail [...] Hyperkeratosis Acquired keratoderma [facility] Diagnosis Obesity, Class II, BMI 35-39.9- Primary Obesity, unspecified Coronary artery disease involving hamilton coronary artery of hamilton heart without angina pectoris PAD (peripheral artery disease) (HCC) Peripheral vascular disease, unspecified Essential hypertension Unspecified essential hypertension Hyperlipidemia with target LDL less than 70 Other and unspecified hyperlipidemia Well controlled type 2 diabetes mellitus with neurological manifestations (HCC) Type II or unspecified type diabetes mellitus with neurological manifestations, not stated as uncontrolled [facility] Diagnosis Onychomycosis- Primary Dermatophytosis of nail [...] infection Ingrowing nail [facility]* Diagnosis Essential hypertension Unspecified essential hypertension [facility]* Diagnosis Essential hypertension Unspecified essential hypertension Well controlled type 2 diabetes mellitus with neurological manifestations (HCC) Type II or unspecified type diabetes mellitus with neurological manifestations, not stated as uncontrolled [facility]* Diagnosis Essential hypertension Unspecified essential hypertension [facility] Diagnosis Pain in both wrists- Primary Pain in joint, forearm [facility]* Diagnosis Onset Date Resolution Status CAD (coronary artery disease) acute Chest pain acute Dyslipidemia acute History of coronary artery bypass graft x 3 acute NSTEMI (non-ST elevated myocardial infarction) acute Hypertension [facility] Work Phone: Evaluation note* Diagnosis Onset Date Resolution Status CAD (coronary artery disease) acute Chest pain acute Diabetes acute Dyslipidemia acute History of coronary artery bypass graft x 3 acute NSTEMI (non-ST elevated myocardial infarction) acute Hypertension [facility] Work Phone: Evaluation note* Diagnosis Non-STEMI (non-ST elevated myocardial infarction) ([facility])- Primary Acute myocardial infarction, subendocardial infarction, episode [...] 30-34.9 Obesity, unspecified [facility]* Diagnosis 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)- Primary Essential hypertension Unspecified essential hypertension PAD (peripheral artery disease) (HCC) Peripheral vascular disease, unspecified documented in this encounter [facility] noteNo assessment information availableWBlanchard Valley Health System Work Phone: Evaluation note* Diagnosis Well controlled type 2 diabetes mellitus with neurological manifestations (HCC) Type II or unspecified type diabetes mellitus with neurological manifestations, not stated as uncontrolled [facility] Diagnosis Screening for colon cancer- Primary Special screening for malignant neoplasms, colon [facility] Diagnosis Medicare annual wellness visit, subsequent- Primary Routine general medical examination at a health care facility Special screening for malignant neoplasms, colon Well controlled type 2 diabetes mellitus with neurological manifestations (HCC) Type II or unspecified type diabetes mellitus with neurological manifestations, not stated as uncontrolled PAD (peripheral artery disease) (HCC) Peripheral vascular disease, unspecified Coronary artery disease involving hamilton coronary artery of hamilton heart without angina pectoris Hyperlipidemia with target LDL less than 70 Other and unspecified hyperlipidemia Benign neoplasm of colon, unspecified part of colon [facility] Diagnosis 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) [facility]* Diagnosis Onychomycosis- Primary Dermatophytosis of nail Pain in toe of left foot Pain in limb Pain in toe of right foot Pain in limb PAD (peripheral artery disease) (HCC) Peripheral vascular disease, unspecified Diabetic polyneuropathy associated with type 2 diabetes mellitus (HCC) [facility] Diagnosis Essential hypertension- Primary Unspecified essential hypertension Hyperlipidemia with target LDL less than 70 Other and unspecified hyperlipidemia Hx of CABG Postsurgical aortocoronary bypass status Coronary artery disease involving hamilton coronary artery of hamilton heart without angina pectoris [facility] Diagnosis Special screening for malignant neoplasms, colon History of colonic polyps Personal history of colonic polyps Coronary artery disease involving hamilton coronary artery of hamilton heart, unspecified whether angina present [facility] Diagnosis Peripheral arterial disease (HCC)- Primary Peripheral vascular disease, unspecified [facility]* Diagnosis Well controlled type 2 [...] ClinicEvaluation note* Diagnosis Coronary artery disease involving hamilton coronary artery of hamilton heart without angina pectoris- Primary Stented coronary artery Postsurgical percutaneous transluminal coronary angioplasty status Essential hypertension Unspecified essential hypertension Hyperlipidemia with target LDL less than 70 Other and unspecified hyperlipidemia Well controlled type 2 diabetes mellitus with neurological manifestations (HCC) Type II or unspecified type diabetes mellitus with neurological manifestations, not stated as uncontrolled documented in this encounter [facility] note* Diagnosis Hyponatremia- Primary Hyposmolality and/or hyponatremia Hyperkalemia Hyperpotassemia Anemia, unspecified type documented in this encounter [facility] note* Diagnosis Shortness of breath- Primary Coronary artery disease involving hamilton coronary artery of hamilton heart without angina pectoris Stented coronary artery Postsurgical percutaneous transluminal coronary angioplasty status S/P CABG x 3 Postsurgical aortocoronary bypass status Family history of chronic ischemic heart disease Diabetes mellitus type 2 in nonobese (CMS/HCC) (HCC) Type II or unspecified type diabetes mellitus without mention of complication, not stated as uncontrolled Primary hypertension Unspecified essential hypertension Mixed hyperlipidemia Coronary artery disease involving hamilton coronary artery of hamilton heart without angina pectoris- Primary documented in this encounter [facility] note* Diagnosis Coronary artery disease involving hamilton coronary artery of hamilton heart without angina pectoris- Primary Primary hypertension Unspecified essential hypertension documented in this encounter [facility] note* Diagnosis Coronary artery disease involving hamilton coronary artery of hamilton heart without angina pectoris- Primary Coronary artery disease involving hamilton coronary artery of hamilton heart without angina pectoris Stented coronary artery Postsurgical percutaneous transluminal coronary angioplasty status Angina pectoris, unstable (CMS/HCC) (HCC) Intermediate coronary syndrome Angina pectoris, unstable (CMS/HCC) (HCC) Intermediate coronary syndrome Coronary artery disease involving hamilton coronary artery of hamilton heart without angina pectoris documented in this encounter [facility] note* Diagnosis Hyponatremia- Primary Hyposmolality and/or hyponatremia Anemia, unspecified type documented in this encounter [facility] note* Diagnosis Diabetic peripheral neuropathy (HCC)- Primary [...] vascular disease, unspecified [facility]* Diagnosis Well controlled type 2 diabetes mellitus with neurological manifestations (HCC) Type II or unspecified type diabetes mellitus with neurological manifestations, not stated as uncontrolled documented in this encounter [facility] note* Diagnosis Onychomycosis- Primary Dermatophytosis of nail Pain in toe of left foot Pain in limb Pain in toe of right foot Pain in limb Diabetic polyneuropathy associated with type 2 diabetes mellitus (HCC) PAD (peripheral artery disease) Peripheral vascular disease, unspecified documented in this encounter [facility]* Diagnosis Peripheral arterial disease- Primary Peripheral vascular disease, unspecified documented in this encounter [facility] note* Diagnosis Anemia, unspecified type- Primary History of colonic polyps Personal history of colonic polyps Colon cancer screening Special screening for malignant neoplasms, colon [facility]* Diagnosis Gastritis and duodenitis- Primary Unspecified gastritis and gastroduodenitis without mention of hemorrhage Gastroesophageal reflux disease with esophagitis without hemorrhage Adenomatous polyp of colon, unspecified part of colon documented in this encounter [facility] Discharge instructionsWBlanchard Valley Health System Work Phone: Reason for referral (narrative)* Outpatient Procedure (Routine) - Pending Review Specialty Diagnoses / Procedures Referred By Contlarry t Referred To Contact [facility] Diagnoses Peripheral arterial disease (HCC) Procedures PVR [facility]G [facility] NON-INVASIVE PHYSIOLOGIC STUDY EXTREMITY 3 Nargis Wiggins DO [address] [place] [address] [facility] [address] [place] [address] Referral ID Status Reason Start Date Expiration Date Visits Requested Visits Authorized [id number] Pending Review Auto-Generat ed Referral 03/27/2022 03/27/2023 1 1 [facility] for referral (narrative)* Outpatient Procedure (Routine) - Closed Specialty Diagnoses / Procedures Referred By Contac t Referred To Contact [facility] Diagnoses Coronary artery disease involving hamilton coronary artery of hamilton heart without angina pectoris Procedures ECG COMPLETE ECG ROUTINE ECG W/LEAST 12 LDS W/I&R Jules Dukes MD [address] [place] [address] [facility] [address] [place] [address] Referral ID Status Reason Start Date Expiration Date V isits Requested Visits Authorized [id number] Closed Auto-Generate d Referral 09/05/2022 09/05/2023 1 1 * Consult, Test, Treat (Routine) - Authorized Specialty Diagnoses / Procedures Referred By Contac t Referred To Contact Neurology Diagnoses Central retinal artery occlusion of left eye Procedures CONSULT TO NEUROLOGY OFFICE/OUTPATIENT [facility] MDM 60-74 MINUTES Jules Dukes MD [address] [place] [address] Referral ID Status Reason Start Date Expiration Date Visits Requested Visits Authorized [id number] Authorized PCP Requested Referral 09/05/2022 09/05/2023 1 1 [facility] for referral (narrative)* Outpatient Procedure (Routine) - Closed Specialty Diagnoses / Procedures Referred By Contac t Referred To Contact [facility] Diagnoses Screening for ischemic heart disease Procedures ECG COMPLETE ECG ROUTINE ECG W/LEAST 12 LDS W/I&R Bib Patterson MD [address] [place] [address] [facility] [address] [place] [address] Referral ID Status Reason Start Date Expiration Date V isits Requested Visits Authorized [id number] Closed Auto-Generate d Referral 04/29/2023 04/28/2024 1 1 [facility] for referral (narrative)* Outpatient Procedure (Routine) - Authorized Specialty Diagnoses / Procedures Referred By Contac t Referred To [facility] Diagnoses Coronary artery disease involving hamilton coronary artery of hamilton heart without angina pectoris Procedures ECG COMPLETE ECG ROUTINE ECG W/LEAST 12 LDS W/I&R Sher Jules MD [address] [place] [address] [facility] [address] [place] [address] Referral ID Status Reason Start Date Expiration Date Visits Requested Visits Authorized [id number] Authorized Auto-Generat ed Referral 08/08/2024 1 1 [facility] for referral (narrative)* Diagnostic Procedure Only (Routine) - Closed Specialty Diagnoses / Procedures Referred By Contac t Referred To Contact XR IMAGING Diagnoses Pain in both wrists Procedures XR WRIST GENERAL 3V PA/LAT/OBL BILATERAL RADEX WRIST COMPLETE MINIMUM 3 VIEWS Barb Suggs, BENCH HAND MACHINE.ARCHEOLOGY PROFESSOR [address] [place] [address] [place] [id number] Referral ID Status Reason Start Date Expiration Date V isits Requested Visits Authorized [id number] Closed Auto-Generate d Referral 2024 02/25/2025 1 1 [facility] for referral (narrative)* Diagnostic Procedure Only (Routine) - Authorized Specialty Diagnoses / Procedures Referred By Contact Referred To Contact [facility]ULAR [facility]AL [facility] Diagnoses 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) Shortness of breath Procedures NM CARDIAC PERF STRESS/PHARM MYOCARDIAL SPECT MULTIPLE STUDIES Bib Patterson MD [address] [facility], [address] [place] [address] [facility] [address] [place] [address] Referral ID Status Reason Start Date Expiration Date Visits Requested Visits Authorized [id number] Authorized Auto-Generat ed Referral 03/11/2024 03/11/2025 1 1 [facility] for referral (narrative)* Diagnostic Procedure Only (Routine) - Closed Specialty Diagnoses / Procedures Referred By Contact Referred To Contact [facility] Diagnoses 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) Shortness of breath Procedures NM CARDIAC PERF STRESS/PHARM MYOCARDIAL SPECT MULTIPLE STUDIES Bib Patterson MD [address] [facility], [address] [place] [address] [facility] [address] [place], [place] [id number] Referral ID Status Reason Start Date Expiration Date V isits Requested Visits Authorized [id number] Closed Auto-Generate d Referral 03/11/2024 03/11/2025 1 1 [facility] for referral (narrative)* Outpatient Procedure (Routine) - Authorized Specialty Diagnoses / Procedures Referred By Contac t Referred To Contact [facility] Diagnoses Peripheral arterial disease (HCC) Procedures PVR LEG [facility] NON-INVASIVE PHYSIOLOGIC STUDY EXTREMITY 3 Nargis Wiggins DO [address] [place] [id number] [facility] [place] [id number] [place] [address] Referral ID Status Reason Start Date Expiration Date Visits Requested Visits Authorized [id number] Authorized Auto-Generat ed Referral 04/07/2024 04/07/2025 1 1 [facility] for referral (narrative)* Diagnostic Procedure Only (Routine) - Closed Specialty Diagnoses / Procedures Referred By Contac t Referred To Contact XR IMAGING Diagnoses Pain in both wrists Procedures XR WRIST GENERAL 3V PA/LAT/OBL BILATERAL RADEX WRIST COMPLETE MINIMUM 3 VIEWS Barb Suggs, BENCH HAND MACHINE.ARCHEOLOGY PROFESSOR [address] [place] [address] Xr Imaging [id number] Referral ID Status Reason Start Date Expiration Date V isits Requested Visits Authorized [id number] Closed Auto-Generate d Referral 2024 02/25/2025 1 1 [facility] for referral (narrative)No reason for referral information availableWBlanchard Valley Health System Work Phone: Reason for visit Narrative* Diagnostic Procedure Only (Routine) - Closed Specialty Diagnoses / Procedures Referred By Contact Referred To Contact [facility]LECULAR [facility] FUNCTIONAL IMAGING Diagnoses 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) Shortness of breath Procedures NM CARDIAC PERF STRESS/PHARM MYOCARDIAL SPECT MULTIPLE STUDIES Bib Patterson MD [address] [facility], [address] [place] [address] [facility] [address] [place] [address] Referral ID Status Reason Start Date Expiration Date V isits Requested Visits Authorized [id number] Closed Auto-Generate d Referral 03/11/2024 03/11/2025 1 1 [facility] for visit Narrative* Diagnostic Procedure Only (Routine) - Closed Specialty Diagnoses / Procedures Referred By Contac t Referred To Contact XR IMAGING Diagnoses Pain in both wrists Procedures XR WRIST GENERAL 3V PA/LAT/OBL BILATERAL RADEX WRIST COMPLETE MINIMUM 3 VIEWS Barb Suggs, BENCH HAND MACHINE.ARCHEOLOGY PROFESSOR [address] [place] [address] Xr Imaging [place] [address] Referral ID Status Reason Start Date Expiration Date V isits Requested Visits Authorized [id number] Closed Auto-Generate d Referral 2024 02/25/2025 1 1 [facility] for visit Narrative* Auth/Cert (Routine) Specialty Diagnoses / Procedures Referred By Contac t Referred To Contact Diagnoses Coronary artery disease involving hamilton coronary artery of hamilton heart without angina pectoris Coronary artery disease involving hamilton coronary artery of hamilton heart without angina pectoris [I25.10] Procedures Left heart cath / coronary angiography w grafts Sergei Collins MD [address] [facility] [address] [place] [address] Phone: tel: fax: [facility] [address] [place] [address] Phone: tel: Referral ID Status Reason Start Date Expiration Date Visits Re quested Visits Authorized [id number] 1 [facility] N[facility]* Outpatient Procedure (Routine) - Closed Specialty Diagnoses / Procedures Referred By Contac t Referred To Contact [facility] Diagnoses History of colonic polyps Anemia, unspecified type Colon cancer screening Procedures COLONOSCOPY SCREENING COLONOSCOPY FLX DX W/COLLJ SPEC WHEN PFRMD Elvie Monterroso, BENCH HAND MACHINE.ARCHEOLOGY PROFESSOR [address] [place] [address] Phone: tel: fax: [facility] [address] [place] [address] Referral ID Status Reason Start Date Expiration Date V isits Requested Visits Authorized [id number] Closed Auto-Generate d Referral 03/18/2025 03/18/2026 1 1 [facility] Advance Directives No Advanced Directives Records FoundDocuments on File Type Date Recorded 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 Advance Directive(s) 12/02/2018 8:26 AM Advance Directive(s) 05/23/2016 11:47 AM Advance Directive(s) 01/19/2014 4:36 PM Documents on File Type Date Recorded 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 Advance Directive(s) 12/02/2018 8:26 AM Advance Directive(s) 05/23/2016 11:47 AM Advance Directive(s) 01/19/2014 4:36 PM Advance Directive Response Recorded Date/ Time Living Will No May 29, 2022 12:30pm Power of Sales Performance Analyst No May 29 12:30pm Advance Directive Response Recorded Date/ Time Name of Medical Power of Sales Performance Analyst Thi Hutson May 30, 2022 1:33am Living Will Yes May 30, 2022 1:33am Power of Sales Performance Analyst Yes May 30 1:33am Documents on File Type Date Recorded 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 Advance Directive(s) 01/19/2014 4:36 PM Documents on File Type Date Recorded 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 Advance Directive(s) 01/19/2014 4:36 PM Advance Directive Response Recorded Date/ Time Name of Medical Power of Sales Performance Analyst Thi Hutson- January 28, 2024 5:55pm Living Will Yes January 28, 2024 5:55pm Power of Sales Performance Analyst Yes January 27 5:55pm Advance Directive Response Recorded Date/ Time Name of Medical Power of Sales Performance Analyst Thi Hutson January 28, 2024 10:21pm Living Will Yes January 28, 2024 10:21pm Power of Sales Performance Analyst Yes January 27 10:21pm Advance Directive Response Recorded Date/ Time Name of Medical Power of Sales Performance Analyst hTi Hutson January 28, 2024 10:21pm Advance Directives on File Yes February 19, 2024 3:07pm Living Will Yes February 19, 2024 3:07pm Power of Sales Performance Analyst Yes February 18 3:07pm Date Activated Date Inactivated Comments 09/30/2024 9:56 AM 09/30/2024 6:14 PM Date Activated Date Inactivated Comments 09/30/2024 9:56 AM 09/30/2024 6:14 PM Advance Directive Response Recorded Date/ Time Do you have a Healthcare Power of Sales Performance Analyst? Yes April 29, 2025 10:35pm Chief Complaint [...] 3 Procedures CONSULT TO CARDIOLOGY OFFICE/OUTPATIENT [facility] MDM 60-74 MINUTES Sher Jules MD [address] [place] [address] Referral ID Status Reason Start Date Expiration Date Visits Requested Visits Authorized [id number] Authorized PCP Requested Referral 06/11/2022 06/11/2023 1 1 Specialty Diagnoses / Procedures Referred By Contac t Referred To Contact CT IMAGING Diagnoses Peripheral vascular disease (HCC) Procedures CTA ABD/PEL LOWER EXTREM W IVCON CTA ABDL AORTA&BI ILIOFEM W/CONTRAST&POSTP Nargis Yin, DO [address] [place] [address] Ct [facility] Referral ID Status Reason Start Date Expiration Date Visits Requested Visits Authorized [id number] Authorized Auto-Generat ed Referral 01/15/2023 02/14/2024 1 1 Referral ID Status Reason Start Date Expiration Date V isits Requested Visits Authorized [id number] Closed Auto-Generate d Referral 01/15/2023 02/14/2024 1 1 Specialty Diagnoses / Procedures Referred By Contac t Referred To Contact General Surgery Diagnoses Screening for colon cancer Procedures CONSULT TO GENERAL SURGERY OFFICE/OUTPATIENT [facility] MDM 60 MINUTES Barb Suggs, BENCH HAND MACHINE.ARCHEOLOGY PROFESSOR [address] [place] [address] Referral ID Status Reason Start Date Expiration Date Visits Requested Visits Authorized [id number] Authorized PCP Requested Referral 02/03/2024 02/02/2025 1 1 Specialty Diagnoses / Procedures Referred By Contac t Referred To Contact General Surgery Diagnoses Special screening for malignant neoplasms, colon Procedures CONSULT TO GENERAL SURGERY OFFICE/OUTPATIENT [facility] 60 MINUTES Sher Jules MD [address] [place] [address] Referral ID Status Reason Start Date Expiration Date Visits Requested Visits Authorized [id number] Authorized PCP Requested Referral 03/11/2024 03/11/2025 1 1 Summary Purpose Additional Source Comments Source Comments (unrecognize d section and content) In the event this informatio n is protected by the Federal Confidentiality of Alcohol and Drug Abuse Patient Records regulations: The Federal rules restrict any use of the information to criminally investigate or prosecute any alcohol or drug abuse patient.[facility] the event this information is protected by the Federal Confidentiality of Alcohol and Drug Abuse Patient Records regulations: The Federal rules restrict any use of the information to criminally investigate or prosecute any alcohol or drug abuse patient.[facility] HospitalIn the event this information is protected by the Federal Confidentiality of Alcohol and Drug Abuse Patient Records regulations: The Federal rules restrict any use of the information to criminally investigate or prosecute any alcohol or drug abuse patient.[facility] HospitalIn the event this information is protected by the Federal Confidentiality of Alcohol and Drug Abuse Patient Records regulations: The Federal rules restrict any use of the information to criminally investigate or prosecute any alcohol or drug abuse patient.[facility] HospitalIn the event this information is protected by the Federal Confidentiality of Alcohol and Drug Abuse Patient Records regulations: The Federal rules restrict any use of the information to criminally investigate or prosecute any alcohol or drug abuse patient.[facility] HospitalIn the event this information is protected by the Federal Confidentiality of Alcohol and Drug Abuse Patient Records regulations: The Federal rules restrict any use of the information to criminally investigate or prosecute any alcohol or drug abuse patient.[facility] HospitalIn the event this information is protected by the Federal Confidentiality of Alcohol and Drug Abuse Patient Records regulations: The Federal rules restrict any use of the information to criminally investigate or prosecute any alcohol or drug abuse patient.[facility] HospitalIn the event this information is protected by the Federal Confidentiality of Alcohol and Drug Abuse Patient Records regulations: The Federal rules restrict any use of the information to criminally investigate or prosecute any alcohol or drug abuse patient.[facility] HospitalIn the event this information is protected by the Federal Confidentiality of Alcohol and Drug Abuse Patient Records regulations: The Federal rules restrict any use of the information to criminally investigate or prosecute any alcohol or drug abuse patient.[facility] HospitalIn the event this information is protected by the Federal Confidentiality of Alcohol and Drug Abuse Patient Records regulations: The Federal rules restrict any use of the information to criminally investigate or prosecute any alcohol or drug abuse patient.[facility] HospitalIn the event this information is protected by the Federal Confidentiality of Alcohol and Drug Abuse Patient Records regulations: The Federal rules restrict any use of the information to criminally investigate or prosecute any alcohol or drug abuse patient.[facility] HospitalIn the event this information is protected by the Federal Confidentiality of Alcohol and Drug Abuse Patient Records regulations: The Federal rules restrict any use of the information to criminally investigate or prosecute any alcohol or drug abuse patient.[facility] HospitalIn the event this information is protected by the Federal Confidentiality of Alcohol and Drug Abuse Patient Records regulations: The Federal rules restrict any use of the information to criminally investigate or prosecute any alcohol or drug abuse patient.[facility] HospitalIn the event this information is protected by the Federal Confidentiality of Alcohol and Drug Abuse Patient Records regulations: The Federal rules restrict any use of the information to criminally investigate or prosecute any alcohol or drug abuse patient.[facility] HospitalIn the event this information is protected by the Federal Confidentiality of Alcohol and Drug Abuse Patient Records regulations: The Federal rules restrict any use of the information to criminally investigate or prosecute any alcohol or drug abuse patient.[facility] HospitalIn the event this information is protected by the Federal Confidentiality of Alcohol and Drug Abuse Patient Records regulations: The Federal rules restrict any use of the information to criminally investigate or prosecute any alcohol or drug abuse patient.[facility] HospitalIn the event this information is protected by the Federal Confidentiality of Alcohol and Drug Abuse Patient Records regulations: The Federal rules restrict any use of the information to criminally investigate or prosecute any alcohol or drug abuse patient.[facility] HospitalIn the event this information is protected by the Federal Confidentiality of Alcohol and Drug Abuse Patient Records regulations: The Federal rules restrict any use of the information to criminally investigate or prosecute any alcohol or drug abuse patient.[facility] HospitalIn the event this information is protected by the Federal Confidentiality of Alcohol and Drug Abuse Patient Records regulations: The Federal rules restrict any use of the information to criminally investigate or prosecute any alcohol or drug abuse patient.[facility] HospitalIn the event this information is protected by the Federal Confidentiality of Alcohol and Drug Abuse Patient Records regulations: The Federal rules restrict any use of the information to criminally investigate or prosecute any alcohol or drug abuse patient.[facility] HospitalIn the event this information is protected by the Federal Confidentiality of Alcohol and Drug Abuse Patient Records regulations: The Federal rules restrict any use of the information to criminally investigate or prosecute any alcohol or drug abuse patient.[facility] HospitalIn the event this information is protected by the Federal Confidentiality of Alcohol and Drug Abuse Patient Records regulations: The Federal rules restrict any use of the information to criminally investigate or prosecute any alcohol or drug abuse patient.[facility] HospitalIn the event this information is protected by the Federal Confidentiality of Alcohol and Drug Abuse Patient Records regulations: The Federal rules restrict any use of the information to criminally investigate or prosecute any alcohol or drug abuse patient.[facility] HospitalIn the event this information is protected by the Federal Confidentiality of Alcohol and Drug Abuse Patient Records regulations: The Federal rules restrict any use of the information to criminally investigate or prosecute any alcohol or drug abuse patient.[facility] HospitalIn the event this information is protected by the Federal Confidentiality of Alcohol and Drug Abuse Patient Records regulations: The Federal rules restrict any use of the information to criminally investigate or prosecute any alcohol or drug abuse patient.[facility] HospitalIn the event this information is protected by the Federal Confidentiality of Alcohol and Drug Abuse Patient Records regulations: The Federal rules restrict any use of the information to criminally investigate or prosecute any alcohol or drug abuse patient.[facility] HospitalIn the event this information is protected by the Federal Confidentiality of Alcohol and Drug Abuse Patient Records regulations: The Federal rules restrict any use of the information to criminally investigate or prosecute any alcohol or drug abuse patient.[facility] HospitalIn the event this information is protected by the Federal Confidentiality of Alcohol and Drug Abuse Patient Records regulations: The Federal rules restrict any use of the information to criminally investigate or prosecute any alcohol or drug abuse patient.[facility] HospitalIn the event this information is protected by the Federal Confidentiality of Alcohol and Drug Abuse Patient Records regulations: The Federal rules restrict any use of the information to criminally investigate or prosecute any alcohol or drug abuse patient.[facility] HospitalIn the event this information is protected by the Federal Confidentiality of Alcohol and Drug Abuse Patient Records regulations: The Federal rules restrict any use of the information to criminally investigate or prosecute any alcohol or drug abuse patient.[facility] HospitalIn the event this information is protected by the Federal Confidentiality of Alcohol and Drug Abuse Patient Records regulations: The Federal rules restrict any use of the information to criminally investigate or prosecute any alcohol or drug abuse patient.[facility] HospitalIn the event this information is protected by the Federal Confidentiality of Alcohol and Drug Abuse Patient Records regulations: The Federal rules restrict any use of the information to criminally investigate or prosecute any alcohol or drug abuse patient.[facility] HospitalIn the event this information is protected by the Federal Confidentiality of Alcohol and Drug Abuse Patient Records regulations: The Federal rules restrict any use of the information to criminally investigate or prosecute any alcohol or drug abuse patient.[facility] HospitalIn the event this information is protected by the Federal Confidentiality of Alcohol and Drug Abuse Patient Records regulations: The Federal rules restrict any use of the information to criminally investigate or prosecute any alcohol or drug abuse patient.[facility] HospitalIn the event this information is protected by the Federal Confidentiality of Alcohol and Drug Abuse Patient Records regulations: The Federal rules restrict any use of the information to criminally investigate or prosecute any alcohol or drug abuse patient.[facility] HospitalIn the event this information is protected by the Federal Confidentiality of Alcohol and Drug Abuse Patient Records regulations: The Federal rules restrict any use of the information to criminally investigate or prosecute any alcohol or drug abuse patient.[facility] HospitalIn the event this information is protected by the Federal Confidentiality of Alcohol and Drug Abuse Patient Records regulations: The Federal rules restrict any use of the information to criminally investigate or prosecute any alcohol or drug abuse patient.[facility] HospitalIn the event this information is protected by the Federal Confidentiality of Alcohol and Drug Abuse Patient Records regulations: The Federal rules restrict any use of the information to criminally investigate or prosecute any alcohol or drug abuse patient.[facility] HospitalIn the event this information is protected by the Federal Confidentiality of Alcohol and Drug Abuse Patient Records regulations: The Federal rules restrict any use of the information to criminally investigate or prosecute any alcohol or drug abuse patient.[facility] HospitalIn the event this information is protected by the Federal Confidentiality of Alcohol and Drug Abuse Patient Records regulations: The Federal rules restrict any use of the information to criminally investigate or prosecute any alcohol or drug abuse patient.[facility] HospitalIn the event this information is protected by the Federal Confidentiality of Alcohol and Drug Abuse Patient Records regulations: The Federal rules restrict any use of the information to criminally investigate or prosecute any alcohol or drug abuse patient.[facility] HospitalIn the event this information is protected by the Federal Confidentiality of Alcohol and Drug Abuse Patient Records regulations: The Federal rules restrict any use of the information to criminally investigate or prosecute any alcohol or drug abuse patient.[facility] HospitalIn the event this information is protected by the Federal Confidentiality of Alcohol and Drug Abuse Patient Records regulations: The Federal rules restrict any use of the information to criminally investigate or prosecute any alcohol or drug abuse patient.[facility] HospitalIn the event this information is protected by the Federal Confidentiality of Alcohol and Drug Abuse Patient Records regulations: The Federal rules restrict any use of the information to criminally investigate or prosecute any alcohol or drug abuse patient.[facility] HospitalIn the event this information is protected by the Federal Confidentiality of Alcohol and Drug Abuse Patient Records regulations: The Federal rules restrict any use of the information to criminally investigate or prosecute any alcohol or drug abuse patient.[facility] HospitalIn the event this information is protected by the Federal Confidentiality of Alcohol and Drug Abuse Patient Records regulations: The Federal rules restrict any use of the information to criminally investigate or prosecute any alcohol or drug abuse patient.[facility] HospitalIn the event this information is protected by the Federal Confidentiality of Alcohol and Drug Abuse Patient Records regulations: The Federal rules restrict any use of the information to criminally investigate or prosecute any alcohol or drug abuse patient.[facility] HospitalIn the event this information is protected by the Federal Confidentiality of Alcohol and Drug Abuse Patient Records regulations: The Federal rules restrict any use of the information to criminally investigate or prosecute any alcohol or drug abuse patient.[facility] HospitalIn the event this information is protected by the Federal Confidentiality of Alcohol and Drug Abuse Patient Records regulations: The Federal rules restrict any use of the information to criminally investigate or prosecute any alcohol or drug abuse patient.[facility] HospitalIn the event this information is protected by the Federal Confidentiality of Alcohol and Drug Abuse Patient Records regulations: The Federal rules restrict any use of the information to criminally investigate or prosecute any alcohol or drug abuse patient.[facility] HospitalIn the event this information is protected by the Federal Confidentiality of Alcohol and Drug Abuse Patient Records regulations: The Federal rules restrict any use of the information to criminally investigate or prosecute any alcohol or drug abuse patient.[facility] HospitalIn the event this information is protected by the Federal Confidentiality of Alcohol and Drug Abuse Patient Records regulations: The Federal rules restrict any use of the information to criminally investigate or prosecute any alcohol or drug abuse patient.[facility] HospitalIn the event this information is protected by the Federal Confidentiality of Alcohol and Drug Abuse Patient Records regulations: The Federal rules restrict any use of the information to criminally investigate or prosecute any alcohol or drug abuse patient.[facility] HospitalIn the event this information is protected by the Federal Confidentiality of Alcohol and Drug Abuse Patient Records regulations: The Federal rules restrict any use of the information to criminally investigate or prosecute any alcohol or drug abuse patient.[facility] HospitalIn the event this information is protected by the Federal Confidentiality of Alcohol and Drug Abuse Patient Records regulations: The Federal rules restrict any use of the information to criminally investigate or prosecute any alcohol or drug abuse patient.[facility] HospitalIn the event this information is protected by the Federal Confidentiality of Alcohol and Drug Abuse Patient Records regulations: The Federal rules restrict any use of the information to criminally investigate or prosecute any alcohol or drug abuse patient.[facility] HospitalIn the event this information is protected by the Federal Confidentiality of Alcohol and Drug Abuse Patient Records regulations: The Federal rules restrict any use of the information to criminally investigate or prosecute any alcohol or drug abuse patient.[facility] HospitalIn the event this information is protected by the Federal Confidentiality of Alcohol and Drug Abuse Patient Records regulations: The Federal rules restrict any use of the information to criminally investigate or prosecute any alcohol or drug abuse patient.[facility] HospitalIn the event this information is protected by the Federal Confidentiality of Alcohol and Drug Abuse Patient Records regulations: The Federal rules restrict any use of the information to criminally investigate or prosecute any alcohol or drug abuse patient.[facility] HospitalIn the event this information is protected by the Federal Confidentiality of Alcohol and Drug Abuse Patient Records regulations: The Federal rules restrict any use of the information to criminally investigate or prosecute any alcohol or drug abuse patient.[facility] HospitalIn the event this information is protected by the Federal Confidentiality of Alcohol and Drug Abuse Patient Records regulations: The Federal rules restrict any use of the information to criminally investigate or prosecute any alcohol or drug abuse patient.[facility] HospitalIn the event this information is protected by the Federal Confidentiality of Alcohol and Drug Abuse Patient Records regulations: The Federal rules restrict any use of the information to criminally investigate or prosecute any alcohol or drug abuse patient.[facility] HospitalIn the event this information is protected by the Federal Confidentiality of Alcohol and Drug Abuse Patient Records regulations: The Federal rules restrict any use of the information to criminally investigate or prosecute any alcohol or drug abuse patient.[facility] HospitalIn the event this information is protected by the Federal Confidentiality of Alcohol and Drug Abuse Patient Records regulations: The Federal rules restrict any use of the information to criminally investigate or prosecute any alcohol or drug abuse patient.[facility] HospitalIn the event this information is protected by the Federal Confidentiality of Alcohol and Drug Abuse Patient Records regulations: The Federal rules restrict any use of the information to criminally investigate or prosecute any alcohol or drug abuse patient.[facility] HospitalIn the event this information is protected by the Federal Confidentiality of Alcohol and Drug Abuse Patient Records regulations: The Federal rules restrict any use of the information to criminally investigate or prosecute any alcohol or drug abuse patient.[facility] HospitalIn the event this information is protected by the Federal Confidentiality of Alcohol and Drug Abuse Patient Records regulations: The Federal rules restrict any use of the information to criminally investigate or prosecute any alcohol or drug abuse patient.[facility] HospitalIn the event this information is protected by the Federal Confidentiality of Alcohol and Drug Abuse Patient Records regulations: The Federal rules restrict any use of the information to criminally investigate or prosecute any alcohol or drug abuse patient.[facility] HospitalIn the event this information is protected by the Federal Confidentiality of Alcohol and Drug Abuse Patient Records regulations: The Federal rules restrict any use of the information to criminally investigate or prosecute any alcohol or drug abuse patient.[facility] HospitalIn the event this information is protected by the Federal Confidentiality of Alcohol and Drug Abuse Patient Records regulations: The Federal rules restrict any use of the information to criminally investigate or prosecute any alcohol or drug abuse patient.[facility] HospitalIn the event this information is protected by the Federal Confidentiality of Alcohol and Drug Abuse Patient Records regulations: The Federal rules restrict any use of the information to criminally investigate or prosecute any alcohol or drug abuse patient.[facility] HospitalIn the event this information is protected by the Federal Confidentiality of Alcohol and Drug Abuse Patient Records regulations: The Federal rules restrict any use of the information to criminally investigate or prosecute any alcohol or drug abuse patient.[facility] HospitalIn the event this information is protected by the Federal Confidentiality of Alcohol and Drug Abuse Patient Records regulations: The Federal rules restrict any use of the information to criminally investigate or prosecute any alcohol or drug abuse patient.[facility] HospitalIn the event this information is protected by the Federal Confidentiality of Alcohol and Drug Abuse Patient Records regulations: The Federal rules restrict any use of the information to criminally investigate or prosecute any alcohol or drug abuse patient.[facility] HospitalIn the event this information is protected by the Federal Confidentiality of Alcohol and Drug Abuse Patient Records regulations: The Federal rules restrict any use of the information to criminally investigate or prosecute any alcohol or drug abuse patient.[facility] HospitalIn the event this information is protected by the Federal Confidentiality of Alcohol and Drug Abuse Patient Records regulations: The Federal rules restrict any use of the information to criminally investigate or prosecute any alcohol or drug abuse patient.[facility] HospitalIn the event this information is protected by the Federal Confidentiality of Alcohol and Drug Abuse Patient Records regulations: The Federal rules restrict any use of the information to criminally investigate or prosecute any alcohol or drug abuse patient.[facility] HospitalIn the event this information is protected by the Federal Confidentiality of Alcohol and Drug Abuse Patient Records regulations: The Federal rules restrict any use of the information to criminally investigate or prosecute any alcohol or drug abuse patient.[facility] Reason for Visit (unrecogniz ed section and content) Reason Onset Date Comments Refill Request 02/28/2022 Reason Comments Established Patient Reason Comments Established Patient Nail Check Reason Comments Dr. Christian Merritt calling Clinical Ob Reason Comments Appointment Reason Comments Hospital F/U Reason Onset Date Comments Refill Request 06/14/2022 Reason Comments Blood Pressure Check Reason Onset Date Comments Refill Request 07/09/2022 Reason Onset Date Comments Follow Up Immunizations 07/18/2022 Flu vaccination Reason Comments Consult Specialty Diagnoses / Procedures Referred By Contac t Referred To Contact Cardiology Diagnoses Essential hypertension S/P CABG x 3 Procedures CONSULT TO CARDIOLOGY OFFICE/OUTPATIENT [facility] 60-74 MINUTES Sher Jules MD [address] [place] [address] Referral ID Status Reason Start Date Expiration Date V isits Requested Visits Authorized [id number] Closed PCP Requested Referral 06/11/2022 06/11/2023 1 1 Reason Comments Established Patient Follow Up Diabetic Foot Care Reason Comments Covid19 Concern Reason Comments TIA Specialty Diagnoses / Procedures Referred By Contac t Referred To Contact Neurology Diagnoses Central retinal artery occlusion of left eye Procedures CONSULT TO NEUROLOGY OFFICE/OUTPATIENT [facility] 60-74 MINUTES Jules Dukes MD [address] [place] [address] Referral ID Status Reason Start Date Expiration Date V isits Requested Visits Authorized [id number] Closed PCP Requested Referral 09/05/2022 09/05/2023 1 [...] ILIOFEM W/CONTRAST&POSTP Nargis Yin, DO [address] [place] [address] Ct Imaging Referral ID Status Reason Start Date Expiration Date V isits Requested Visits Authorized [id number] Closed Auto-Generate d Referral 01/15/2023 02/14/2024 1 [...] HOSPITALIZED Reason Comments Hospital F/U D/c from [facility] on 01/29 for chest pain an elevated [...] MDM 60 MINUTES Sher Jules MD [address] [place] [address] Referral ID Status Reason Start Date Expiration Date V isits Requested Visits Authorized [id number] Closed PCP Requested Referral 03/11/2024 03/11/2025 1 [...] Care Teams (unrecognized sec tion and content) Editor Relationship Specialty Start Date End Date Sher Jules MD [address] [place] [address] PCP - General 07/28/08 Editor Relationship Specialty Start Date End Date Sher Jules MD [address] [place] [address] PCP - General 07/28/08 Editor Relationship Specialty Start Date End Date Sher Jules MD [address] [place] [address] PCP - General 07/28/08 Editor Relationship Specialty Start Date End Date Sher Jules MD [address] [place] [address] PCP - General 07/28/08 Editor Relationship Specialty Start Date End Date Sher Jules MD [address] [place] [address] PCP - General 07/28/08 Editor Relationship Specialty Start Date End Date Sher Jules MD [address] [facility] [address] PCP - General 07/28/08 Editor Relationship Specialty Start Date End Date Sher Julse MD [facility] [place] [address] PCP - General 07/28/08 Editor Relationship Specialty Start Date End Date Sher Jules MD [address] [place] [address], [place] [address] PCP - General 07/28/08 Editor Relationship Specialty Start Date End Date Sher Jules MD [address] [place] [address] [place] [address] PCP - General 07/28/08 Editor Relationship Specialty Start Date End Date Sher Jules MD [address] [place] [address], [place] [address] PCP - General 07/28/08 Editor Relationship Specialty Start Date End Date Sher Jules MD [address] [place] [address] [place] [address] PCP - General 07/28/08 Editor Relationship Specialty Start Date End Date Sher Jules MD [address] [place] [address] [place] [address] PCP - General 07/28/08 Trevor Robison MD [address] [place] [address] [place] [address] Neurology 10/01/22 Editor Relationship Specialty Start Date End Date Sher Jules MD [address] [place] [address] [place] [address] PCP - General 07/28/08 Trevor Robison MD [address] [place] [address] [place] [address] Neurology 10/01/22 Editor Relationship Specialty Start Date End Date Sher Jules MD [address] [facility] [address] PCP - General 07/28/08 Trevor Robison MD [address] [facility] [place] [address] Neurology 10/01/22 Editor Relationship Specialty Start Date End Date Sher Jules MD [address] [place] [address] PCP - General 07/28/08 Trevor Robison MD [address] [facility] [place] [address] Neurology 10/01/22 Editor Relationship Specialty Start Date End Date Sher Jules MD [address] [place] [address] PCP - General 07/28/08 Trevor Robison MD [address] [facility] [place] [address] Neurology 10/01/22 Editor Relationship Specialty Start Date End Date Sher Jules MD [address] [place] [address] PCP - General 07/28/08 Trevor Robison MD [address] [facility] [place] [address] Neurology 10/01/22 Editor Relationship Specialty Start Date End Date Sher Jules MD [address] [facility] [address] PCP - General 07/28/08 Trevor Robison MD [address] [facility] [place] [address] Neurology 10/01/22 Editor Relationship Specialty Start Date End Date Sher Jules MD [address] [place] [address] PCP - General 07/28/08 Trevor Robison MD [address] [facility] [place] [address] Neurology 10/01/22 Editor Relationship Specialty Start Date End Date Sher Jules MD [address] [place] [address] PCP - General 07/28/08 Trevor Robison MD [address] [facility] [place] [address] Neurology 10/01/22 Editor Relationship Specialty Start Date End Date Sher Jules MD [address] [place] [address] PCP - General 07/28/08 Trevor Robison MD [address] [facility] [place] [address] Neurology 10/01/22 Editor Relationship Specialty Start Date End Date Sher Jules MD [address] [place] [address] PCP - General 07/28/08 Trevor Robison MD [address] [facility] [place] [address] Neurology 10/01/22 Editor Relationship Specialty Start Date End Date Sher Jules MD [address] [place] [address] PCP - General 07/28/08 Trevor Robison MD [address] [facility] [place] [address] Neurology 10/01/22 Editor Relationship Specialty Start Date End Date Sher Jules MD [address] [place], [place] [address] PCP - General 07/28/08 Trevor Robison MD [address] [facility] [address] [place], [place] [address] Neurology 10/01/22 Editor Relationship Specialty Start Date End Date Sher Jules MD [address] [place], [place] [address] PCP - General 07/28/08 Trevor Robison MD [address] [facility] [address] [place], [place] [address] Neurology 10/01/22 Editor Relationship Specialty Start Date End Date Sher Jules MD [address] [place] [id number] PCP - General 07/28/08 Trevor Robison MD [address] [facility] [place] [address] Neurology 10/01/22 Editor Relationship Specialty Start Date End Date Sher Jules MD [address] [place], [place] 505941 PCP - General 07/28/08 Trevor Robison MD [address] [facility] [address] [place], [place] 634181 Neurology 10/01/22 Editor Relationship Specialty Start Date End Date Sher Jules MD [address] [place], [place] [id number] PCP - General 07/28/08 Trevor Robison MD [address] [facility] [address] [place], [place] 234921 Neurology 10/01/22 Editor Relationship Specialty Start Date End Date Sher Jules MD [address] [place], [place] 241521 PCP - General 07/28/08 Trevor Robison MD [address] [facility] [address] [place], [place] 858971 Neurology 10/01/22 Editor Relationship Specialty Start Date End Date Sher Jlues MD [address] [place], [place] 456551 PCP - General 07/28/08 Trevor Roibson MD [address] [facility] [address] [place], [place] 0[address]461 Neurology 10/01/22 Editor Relationship Specialty Start Date End Date Sher Jules MD [address] [place], [place] 462431 PCP - General 07/28/08 Trevor Robison MD [address] [facility] [address] [place], [place] 517621 Neurology 10/01/22 Editor Relationship Specialty Start Date End Date Sher Jules MD [address] [place], [place] 296111 PCP - General 07/28/08 Trevor Robison MD [address] [facility] [address] [place], [place] 6[address]681 Neurology 10/01/22 Editor Relationship Specialty Start Date End Date Sher Jules MD [address] [place], [place] 048001 PCP - General 07/28/08 Trevor Robison MD [address] [facility] [address] [place], [place] 492331 Neurology 10/01/22 Editor Relationship Specialty Start Date End Date Sher Jules MD [address] [place], [place] 659381 PCP - General 07/28/08 Trevor Robison MD [address] [facility] [address] [place], [place] 631261 Neurology 10/01/22 Editor Relationship Specialty Start Date End Date Sher Jules MD [address] [place], [place] 142821 PCP - General 07/28/08 Trevor Robison MD [address] [facility] [address] [place], [place] 446511 Neurology 10/01/22 Editor Relationship Specialty Start Date End Date Sher Jules MD [address] [place], [place] [id number] PCP - General 07/28/08 Trevor Robison MD [address] [facility] [address] [place], [place] 138171 Neurology 10/01/22 Team Status: Active Member Role [...] Dr. Debby Machuca MD Attending Provider Active Editor Relationship Specialty Start Date End Date Sher Jules MD [address] [place] [address] PCP - General 07/28/08 Trevor Robison MD [address] [facility] [place] [address] Neurology 10/01/22 Editor Relationship Specialty Start Date End Date Sher Jules MD [address] [place] [address] PCP - General 07/28/08 Trevor Robison MD [address] [facility] [place] [address] Neurology 10/01/22 Editor Relationship Specialty Start Date End Date Sher Jules MD [address] [place] [address] PCP - General 07/28/08 Trevor Robison MD [address] [facility] [place] [address] Neurology 10/01/22 Team Status: Active Member Role [...] MD Attending Provider, Referring Provid er Active Editor Relationship Specialty Start Date End Date Sher Jules MD [address] [place], [place] 561631 PCP - General 07/28/08 Trevor Robison MD [address] [facility] [address] [place], [place] 259801 Neurology 10/01/22 Editor Relationship Specialty Start Date End Date Sher Jules MD [address] [place], [place] 845691 PCP - General 07/28/08 Trevor Robison MD [address] [facility] [address] [place], [place] 781581 Neurology 10/01/22 Editor Relationship Specialty Start Date End Date Sher Jules MD [address] [place], [place] [id number] PCP - General 07/28/08 Trevor Robison MD [address] [facility] [address] [place], [place] 411071 Neurology 10/01/22 Editor Relationship Specialty Start Date End Date Sher Jules MD [address] [place], [place] 418081 PCP - General 07/28/08 Trevor Robison MD [address] [facility] [address] [place], [place] 194891 Neurology 10/01/22 Editor Relationship Specialty Start Date End Date Sher Jules MD [address] [place], [place] [id number] PCP - General 07/28/08 Trevor Robison MD [address] [facility] [address] [place], [place] [id number] Neurology 10/01/22 Editor Relationship Specialty Start Date End Date Sher Jules MD [address] [place], [place] 813451 PCP - General 07/28/08 Trevor Robison MD [address] [facility] [address] [place], [place] 819021 Neurology 10/01/22 Editor Relationship Specialty Start Date End Date Sher Jules MD [address] [place], [place] 005981 PCP - General 07/28/08 Trevor Robison MD [address] [facility] [address] [place], [place] 604551 Neurology 10/01/22 Editor Relationship Specialty Start Date End Date Sher Jules MD [address] [place], [place] [id number] PCP - General 07/28/08 Trevor Robison MD [address] [facility] [address] [place], [place] [id number] Neurology 10/01/22 Editor Relationship Specialty Start Date End Date Sher Jules MD [address] [place], [place] 482881 PCP - General 07/28/08 Trevor Robison MD [address] [facility] [address] [place], [place] 979981 Neurology 10/01/22 Editor Relationship Specialty Start Date End Date Sher Jules MD [address] [place], [place] 284931 PCP - General 07/28/08 Trevor Robison MD [address] [facility] [address] [place], [place] 491071 Neurology 10/01/22 Editor Relationship Specialty Start Date End Date Sher Jules MD [address] [place], [place] 676531 PCP - General 07/28/08 Trevor Robison MD [address] [facility] [address] [place], [place] 172201 Neurology 10/01/22 Editor Relationship Specialty Start Date End Date Sher Jules [address] [place], [place] 006491 PCP - General Internal Medicine 09/16/24 Editor Relationship Specialty Start Date End Date Sher Jules [address] [facility], [place] [address]01 PCP - General Internal Medicine 09/16/24 Editor Relationship Specialty Start Date End Date Sher Jules [address] [facility] [place] [address] PCP - General Internal Medicine 09/16/24 Editor Relationship Specialty Start Date End Date Sher Jules [address] [facility] [address] PCP - General Internal Medicine 09/16/24 Editor Relationship Specialty Start Date End Date Sher Jules MD [address] [facility], [place] 585161 PCP - General 07/28/08 Trevor Robison MD [address] [facility] [address] [place], [place] 129821 Neurology 10/01/22 Barb Suggs, BENCH HAND MACHINE.ARCHEOLOGY PROFESSOR [address] [facility] [address] Infrastructure Solutions Architect Internal Medicine 10/05/24 Editor Relationship Specialty Start Date End Date Sher Jules MD [address] [facility], [place] 036001 PCP - General 07/28/08 Trevor Robison MD [address] [facility] [place] [address] Neurology 10/01/22 Barb Suggs, BENCH HAND MACHINE.ARCHEOLOGY PROFESSOR [address] [place] [address] Infrastructure Solutions Architect Internal Medicine 10/05/24 Editor Relationship Specialty Start Date End Date Sher Jules MD [address] [place] [address] PCP - General 07/28/08 Trevor Robison MD [address] [facility] [place] [address] Neurology 10/01/22 Barb Suggs, BENCH HAND MACHINE.ARCHEOLOGY PROFESSOR [address] [facility] [place] [address] [facility] Internal Medicine 10/05/24 Editor Relationship Specialty Start Date End Date Sher Jules MD [address] [facility] [place] [place] 281281 PCP - General 07/28/08 Trevor Robison MD [address] [facility] [place] [address] Neurology 10/01/22 Barb Suggs, BENCH HAND MACHINE.ARCHEOLOGY PROFESSOR [address] [facility] [place] [address] Infrastructure Solutions Architect Internal Medicine 10/05/24 Editor Relationship Specialty Start Date End Date Sher Jules MD [address] [facility] [place], [place] 816801 PCP - General 07/28/08 Trevor Robison MD [address] [facility] [place] [address] Neurology 10/01/22 Barb Suggs, BENCH HAND MACHINE.ARCHEOLOGY PROFESSOR [address] [facility], [place] 949371 [facility] Internal Medicine 10/05/24 Editor Relationship Specialty Start Date End Date Sher Jules MD [address] [facility], [place] 306201 PCP - General 07/28/08 Trevor Robison MD [address] [place] [address] [place] [address] Neurology 10/01/22 Barb Suggs, BENCH HAND MACHINE.ARCHEOLOGY PROFESSOR [address] [facility], [place] 9732[address] [facility] Internal Medicine 10/05/24 Team Status: Active [...] Active Start: March 12, 2025 Naz Cox CITY ADMINISTRATOR, CITY ADMINISTRATOR-C Attending Provider Active Start: March 12, 2025 Editor Relationship Specialty Start Date End Date Sher Jules MD [address] [place] [address] PCP - General 07/28/08 Trevor Robison MD [address] [place] [address] Neurology 10/01/22 Barb Suggs, BENCH HAND MACHINE.ARCHEOLOGY PROFESSOR [address] [facility] [place] [address] Infrastructure Solutions Architect Internal Medicine 10/05/24 Editor Relationship Specialty Start Date End Date Sher Jules MD [address] [facility] [place] [address] PCP - General 07/28/08 Trevor Robison MD [address] [facility] [address] Neurology 10/01/22 Barb Suggs, BENCH HAND MACHINE.ARCHEOLOGY PROFESSOR [address] [place] [address] Infrastructure Solutions Architect Internal Medicine 10/05/24 Editor Relationship Specialty Start Date End Date Sher Jules MD [address] [facility] [address] PCP - General 07/28/08 Trevor Robison MD [address] [facility] [place] [address] Neurology 10/01/22 Barb Suggs, BENCH HAND MACHINE.ARCHEOLOGY PROFESSOR [address] [facility] [address] Infrastructure Solutions Architect Internal Medicine 10/05/24 Editor Relationship Specialty Start Date End Date Sher Jules MD [address] [facility] [place] [address] PCP - General 07/28/08 Trevor Robison MD [address] [place] [address] Neurology 10/01/22 Barb Suggs, BENCH HAND MACHINE.ARCHEOLOGY PROFESSOR [address] [place] [address] Infrastructure Solutions Architect Internal Medicine 10/05/24 Team Status: Active Member [...] Start: March 12, 2025 Naz Cox NP, CITY ADMINISTRATOR-C Attending Provider Active Start: March 12, 2025 [...] section and content) DATE CREATED AUTHOR 03/13/2024 [facility] DATE CREATED AUTHOR AUTHOR'S ORGANIZ ATION 01/02/2025 [facility] DATE CREATED AUTHOR AUTHOR'S ORGANIZ ATION 04/23/[address] [facility] DATE CREATED AUTHOR AUTHOR'S ORGANIZ ATION 05/08/2025 [facility] Scheduled Active and Recently Administ ered Medications [...] BE BASED ON THE PRIMARY CLINICAL RECORDS. [employer] provides no warranty or guarantee of the accuracy or completeness of information in this document.
--- NOTE | 2025-05-08 06:35 | EX.ED.UPPERE ---
HPI History of Present Illness Chief Complaint: Upper Extremity Injury Narrative Narrative: Patient is a 75-year-old male with past medical history hypertension, diabetes, CAD, hypertension, NSTEMI, hyperlipidemia who presented to the emergency department in preparation for surgery. Patient states that back on April 29 he fell injuring his hand and he states that he followed up with plastic surgeon Dr. Rodriguez. He states that he was advised that he needs to come to the emergency department prior to his surgery today. He states he did not eat anything after midnight. He states that he feels well and has no specific complaints at this point in time. [facility] Medical History CAD (coronary artery disease) Diabetes Dyslipidemia Hypertension Type 2 diabetes mellitus without complications Peripheral vascular disease, unspecified Essential (primary) hypertension Atherosclerotic heart disease of [place] coronary artery without angina pectoris Diabetes mellitus, type 2 Former tobacco use Obesity Chest pain NSTEMI (non-ST elevated myocardial infarction) Branch retinal artery occlusion Hyperlipemia Home Medications ?Medication ?Instructions ?Recorded ?Last Taken ?Type multivitamin with folic acid 400 1 tab PO DAILY vitamin 04/18/16 04/19/16 History mcg tablet (Thera) amlodipine 10 mg tablet 10 mg PO DAILY 01/28/24 Unknown History clonidine HCl 0.2 mg tablet 0.2 mg PO BID 01/28/24 Unknown History gabapentin 300 mg capsule 300 mg PO DAILY 01/28/24 Unknown History lisinopril 40 mg tablet 40 mg PO BID 01/28/24 Unknown History aspirin 81 mg tablet,delayed 81 mg PO BREAKFAST #30 tabs 01/30/24 Unknown Rx release clopidogrel 75 mg tablet 75 mg PO QDAY 05/28/24 Unknown History metformin 500 mg tablet 1,000 mg PO BID diabetes 05/28/24 Unknown History nitroglycerin 0.3 mg sublingual 0.3 mg sublingual Q5M PRN angina 05/28/24 Unknown History tablet atorvastatin 40 mg tablet 40 mg PO QPM #90 tabs 09/14/24 Unknown Rx metoprolol tartrate 25 mg tablet 12.5 mg PO BID 09/14/24 Unknown History hydralazine 50 mg tablet 50 mg PO TID #270 tabs 12/04/24 Unknown Rx omeprazole 40 mg capsule,delayed 40 mg PO DAILY 04/29/25 Unknown History release Allergy/AdvReac Type Severity Reaction Status Date / Time No Known Allergies Allergy Verified 05/08/25 06:07 Family History Mother Cancer Father CVA (cerebral vascular accident) Surgical History H/O coronary angioplasty Stented coronary artery (01/29/24) History of coronary artery bypass graft x 3 H/O angioplasty Failed CABG (coronary artery bypass graft) Social History household members: spouse Smoking Status: Former smoker alcohol intake: current alcohol intake frequency: a few times a month substance use type: does not use ROS ROS ED ROS Narrative Constitutional: Denies any fevers, chills, headaches Cardiovascular: Denies chest pain Respiratory: Denies shortness of breath Abdomen: Denies nausea vomit diarrhea Neurological: Denies numbness, wheeze, tingling Musculoskeletal: Complains of finger injury as noted above Skin: Denies any rashes or lesions EXAM Physical Exam Narrative Exam Narrative: General: Patient was lying in bed rest comfortably did not appear to be in acute distress Head: Atraumatic, normocephalic Eyes: PERRL bilaterally, EOMI by, no conjunctival injection noted Neck: Soft, supple, trachea midline Cardiovascular: Patient bradycardic with a regular rhythm Extremities: +5/5 strength noted in the bilateral lower extremities, patient has a splint in place of the second digit on the right hand Neurological: Patient follow commands knew that he was at [facility] years 2024 Skin: Warm, dry, intact no rashes lesions noted Const Vital Signs: 05/08/25 06:06 05/08/25 06:11 05/08/25 06:20 Temperature 98.1 F 98.1 F 98.1 F Temperature Source Oral Oral Pulse Rate 56 L 62 59 L Respiratory Rate 18 18 18 Blood Pressure 136/72 H 136/72 H 134/71 H Blood Pressure Mean 93 93 92 Blood Pressure Source Monitor Blood Pressure Position Supine Blood Pressure Location Left Arm Pulse Ox 98 99 99 Oxygen Delivery Method Room Air Room Air MDM MDM MDM Narrative Medical decision making narrative: Patient is a 75-year-old male who presented to the emergency department in preparation for his procedure today for a comminuted fracture at the base of the second metacarpal bone. I was asked to evaluate the patient here in the emergency department prior to going to the operating room under Dr. Rodriguez. I did review his x-ray of his hand from 05/06/2025 which showed acute comminuted fracture seen at the base of the second metacarpal bone. Once again he remains in splint. He has no specific complaints at this point time he remain NPO. Patient will be admitted to Dr. Rodriguez in preparation for his surgery. He is agreeable this plan all question concerns answered. Discharge Plan Triage Chief Complaint: Upper Extremity Injury ED Provider: Scott Zazueta Dx/Rx/DC Orders Clinical Impression: Hypertension, Diabetes, Essential (primary) hypertension, S/P CABG x 3, CAD (coronary artery disease), Closed fracture of second metacarpal bone Prescriptions: No Action clopidogrel 75 mg tablet 75 mg PO QDAY nitroglycerin 0.3 mg tablet, sublingual 0.3 mg sublingual Q5M PRN (Reason: angina) metoprolol tartrate 25 mg tablet 12.5 mg PO BID atorvastatin 40 mg tablet 40 mg PO QPM Qty: 90 3RF multivitamin with folic acid [Thera] 1 TABLET tablet 1 tab PO DAILY metformin 500 mg tablet 1,000 mg PO BID clonidine HCl 0.2 mg tablet 0.2 mg PO BID amlodipine 10 mg tablet 10 mg PO DAILY gabapentin 300 mg capsule 300 mg PO DAILY lisinopril 40 mg tablet 40 mg PO BID aspirin 81 mg Tablet,Delayed Release (Dr/Ec) 81 mg PO BREAKFAST Qty: 30 2RF omeprazole 40 mg capsule,delayed release(DR/EC) 40 mg PO DAILY hydralazine 50 mg tablet 50 mg PO TID Qty: 270 3RF Primary Care Provider: Sher Jules Referrals: Sher Jules MD [Primary Care Provider] - Print Language: Maltese Disposition Disposition: Acute Care Hospital [facility]
--- NOTE | 2025-05-08 06:38 | PCM.HP.STD ---
HPI - General HPI Narrative The patient is a 75-year-old male presenting with a fracture of the right index finger metacarpal. The injury occurred on 29 April 2025 when the patient fell asleep on a stool in his garage, resulting in a fall that caused the fracture. The patient reports limited ability to make a fist due to swelling and a palpable deformity at the base of the index finger metacarpal. The patient has a history of open heart surgery and stent placement, with the most recent stent placement occurring in August of the previous year. He was a smoker until 2002 and is currently on Plavix due to his cardiac history. ROS: - Musculoskeletal: Reports pain at the base of the index finger, limited ability to make a fist due to swelling - Cardiovascular: Denies recent chest pain or discomfort Patient is right-handed Attestation: Documentation on this patient encounter was supported using ambient scribe technology/ voice AI technology. The patient consented to recording for the purpose of documenting the encounter. Provider reviewed content of the generated note prior to signature. Current Encounter (DATE OF SURGERY H&P UPDATE): I saw and examined the patient this morning in pre-operative holding. We discussed risks and benefits of today's surgery and they would like to proceed. NO CHANGE in health history since last seen and evaluated. Ready to proceed with surgery. [facility] Medical History CAD (coronary artery disease) Diabetes Dyslipidemia Hypertension Type 2 diabetes mellitus without complications Peripheral vascular disease, unspecified Essential (primary) hypertension Atherosclerotic heart disease of [place] coronary artery without angina pectoris Diabetes mellitus, type 2 Former tobacco use Obesity Chest pain NSTEMI (non-ST elevated myocardial infarction) Branch retinal artery occlusion Hyperlipemia Home Medications ?Medication ?Instructions ?Recorded ?Last Taken ?Type multivitamin with folic acid 400 1 tab PO DAILY vitamin 04/18/16 04/19/16 History mcg tablet (Thera) amlodipine 10 mg tablet 10 mg PO DAILY 01/28/24 Unknown History clonidine HCl 0.2 mg tablet 0.2 mg PO BID 01/28/24 Unknown History gabapentin 300 mg capsule 300 mg PO DAILY 01/28/24 Unknown History lisinopril 40 mg tablet 40 mg PO BID 01/28/24 Unknown History aspirin 81 mg tablet,delayed 81 mg PO BREAKFAST #30 tabs 01/30/24 Unknown Rx release clopidogrel 75 mg tablet 75 mg PO QDAY 05/28/24 Unknown History metformin 500 mg tablet 1,000 mg PO BID diabetes 05/28/24 Unknown History nitroglycerin 0.3 mg sublingual 0.3 mg sublingual Q5M PRN angina 05/28/24 Unknown History tablet atorvastatin 40 mg tablet 40 mg PO QPM #90 tabs 09/14/24 Unknown Rx metoprolol tartrate 25 mg tablet 12.5 mg PO BID 09/14/24 Unknown History hydralazine 50 mg tablet 50 mg PO TID #270 tabs 12/04/24 Unknown Rx omeprazole 40 mg capsule,delayed 40 mg PO DAILY 04/29/25 Unknown History release Allergy/AdvReac Type Severity Reaction Status Date / Time No Known Allergies Allergy Verified 05/08/25 06:07 Family History Mother Cancer Father CVA (cerebral vascular accident) Surgical History H/O coronary angioplasty Stented coronary artery (01/29/24) History of coronary artery bypass graft x 3 H/O angioplasty Failed CABG (coronary artery bypass graft) Social History household members: spouse Smoking Status: Former smoker alcohol intake: current alcohol intake frequency: a few times a month substance use type: does not use Vital Signs Vital Signs Vital Signs: 05/08/25 06:06 05/08/25 06:11 05/08/25 06:20 Temperature 98.1 F 98.1 F 98.1 F Temperature Source Oral Oral Pulse Rate 56 L 62 59 L Respiratory Rate 18 18 18 Blood Pressure 136/72 H 136/72 H 134/71 H Blood Pressure Mean 93 93 92 Blood Pressure Source Monitor Blood Pressure Position Supine Blood Pressure Location Left Arm Pulse Ox 98 99 99 Oxygen Delivery Method Room Air Room Air Weight Weight: 185 lb 3.013 oz Body Mass Index (BMI) 26.5 Physical Exam Narrative Right Upper Extremity Inspection/Palpation: No pain over the anatomic snuff box, 3-4 interval, or distal pole of the scaphoid; no pain at the thumb or thumb base; pain at the base of the index finger; limited ability to make a fist due to swelling; palpable deformity on the dorsum of the hand at the base of the index finger metacarpal Motor: Able to bend and extend all MP, PIP, and DIP joints. limited ability to make a fist due to swelling. No scissoring or angulation. No extensor lag in the small finger Sensory: Intact to light touch on the radial and ulnar borders. Vascular: Finger tips are warm and well perfused with <2 second capillary refill. Assessment & Plan Assessment/Plan (1) Closed fracture of second metacarpal bone: PLAN: Plan Assessment and Plan The patient is a 75-year-old male with a history of open heart surgery and stent placement, presenting with a fracture of the index finger metacarpal. The fracture is displaced and shortened with dorsal angulation, as confirmed by X-ray. The patient reports limited ability to make a fist due to swelling and a palpable deformity at the base of the index finger metacarpal. Given the patient's cardiac history and current use of Plavix, surgical intervention is considered with caution. Options include splinting/casting versus pinning (with splinting and casting) versus screw or plate fixation, with the potential for immediate postoperative mobilization to prevent stiffness. I talked him extensively about these options. He would like to do early active range of motion if possible. He is worried about becoming too stiff. I talked to the patient extensively about the risks of surgery, including nonunion/malunion, hardware failure, MRI not compatibility of the hardware, hardware infection requiring explantation/IV antibiotics, bleeding, infection, damage to surrounding structures, poor scaring, surgical site dehiscence and wound formation, damage to nerves, tightness and scarring and stiffness of the hand, need for wound care, need for repeat operations, failure to obtain the desired result, DVT/PE, and the risks of anesthesia including , including stroke (from low blood pressure/ischemia or clot). The benefits and alternatives of this surgery were also discussed. All of their questions were answered, and they agreed to proceed with surgery. 1. Fracture Of The Index Finger Metacarpal The plan for the fracture of the index finger metacarpal includes surgical intervention to achieve better alignment and healing. Options discussed include pinning versus rigid fixation, with the potential for immediate postoperative mobilization to prevent stiffness. The patient will be placed in a splint postoperatively, and occupational therapy will be initiated to facilitate movement and prevent stiffness. Given the patient's history of open heart surgery and current use of Plavix, the surgical approach will be carefully considered to minimize risks. INTERVAL H&P PLAN, DATE OF SURGERY: We will proceed with surgery today. Discussed above noted risks, benefits, and alternatives again this morning. Discussed possible use of bone grafting material or bone graft. Plan for open reduction with internal fixation versus percutaneous pinning. Will plan for Adrianna block and MAC.
--- NOTE | 2025-05-08 07:16 | PCM.PRE.AN2 ---
ASA Classification* ASA Classification ASA Classification: 3 and E Assessment & Plan Anesthesia* Anesthesia Assessment Anesthesia Assessment: Discussed sedation and/or anesthesia options, risks, benefits, and alternatives with patient/parents/legal guardian/POA. Questions invited. The patient/parents/legal guardian/POA seems to understand and agrees to proceed with anesthesia plan. Reviewed the physical assessment, medical history, allergy history and patient home medications list prior to surgery/procedure/anesthetic and documented any changes. Performed airway and anesthesia risk assessments. Anesthesia Type Anesthesia Type: General Anesthesia Focused Assessment* Temperature: 98.1 F Pulse Rate: 59 Blood Pressure: 134/71 Respiratory Rate: 18 Pulse Ox: 99 Airway Assessment Mouth opens: >3 cm Mallampati Score: II Labs Anesthesia Preop lab: CBC WBC 6.6 K/mm3 (4.4-11.0) 09/28/24 13:33 09/28/24 RBC 3.54 M/mm3 (4.6-6.2) L 09/28/24 13:33 09/28/24 Hgb 12.0 g/dL (13.0-16.5) L 09/28/24 13:33 09/28/24 Hct 33.4 % (40-54) L 09/28/24 13:33 09/28/24 Plt Count 216 K/mm3 (150-450) 09/28/24 13:33 09/28/24 CHEMISTRY Potassium 4.7 mmol/L (3.5-5.1) 10/12/24 14:25 10/12/24 Sodium 128 mmol/L (136-145) L 10/12/24 14:25 10/12/24 Magnesium 1.9 mg/dL (1.6-2.6) 01/29/24 03:01 01/29/24 Phosphorus 3.6 mg/dL (2.5-4.9) 01/29/24 03:01 01/29/24 BUN 10 mg/dL (7-18) 10/12/24 14:25 10/12/24 Creatinine 0.72 mg/dL (0.70-1.30) 10/12/24 14:25 10/12/24 Glucose 144 mg/dL (74-106) H 10/12/24 14:25 10/12/24 POC Glucose 224 mg/dL (74-106) H 01/30/24 09:57 01/30/24 TSH 0.31 uIU/mL (0.358-3.74) L 01/29/24 03:01 01/29/24 COAG PT 13.2 SECONDS (11.7-14.9) 09/28/24 13:33 09/28/24 Pre-Assessment Diagnosis/Proposed Procedure Planned Operative Procedure(s): ORIF Finger Anesthesia History 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 When Was Last Pacemaker Check QUESTION #4 FULL TEXT: You/Your Family Experience fever (hyperthermia) with Anesthesia Last Oral Intake Last Oral intake: Last Oral Intake NPO since Meds taken in AM with sips of water? Meds patient instructed to take am of surgery PONV PONV - mechanical engineering technologist: PONV - mechanical engineering technologist Female HX of Motion Sickness HX of N/V After Surgery Non-Smoker Duration of Surgery greater than 60 minutes Number of Risk Factors PONV Score Height & Weight Height & Weight: Anesthesia: Height & Weight Height 5 ft 10 in 05/08/25 06:20 Weight: 84 kg 05/08/25 06:20 Body Mass Index (BMI) 26.5 05/08/25 06:20 Respiratory Assessment Respiratory Assessment - mechanical engineering technologist: Respiratory Tract Infection Hx - mechanical engineering technologist Hx Respiratory Tract Infection No 05/08/25 06:20 STOP Sleep Apnea STOP Sleep Apnea - mechanical engineering technologist: STOP Sleep Apnea - mechanical engineering technologist Hx Hypertension Yes 05/08/25 06:20 Hx Sleep Apnea No 05/08/25 06:20 CPAP BIPAP Do you snore loudly (louder Yes 05/08/25 06:20 than talking or can be heard Do you often feel tired/ No 05/08/25 06:20 fatigued/ sleepy during daytime? Has anyone observed you stop No 05/08/25 06:20 breathing during sleep? STOP Results Positive 05/08/25 06:20 QUESTION #5 FULL TEXT : Do you snore loudly (louder than talking or can be heard through closed doors)? 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 Specify any problems Hx of Preganancy in last 3 Months Nurse Filling Out Transfusion & Questions: Date: Time: Patient unable to answer at this time (ie. confused, unrespo /Reproduction History /Reproductive History - mechanical engineering technologist: /Reproductive Hx- mechanical engineering technologist Hx Now Gestational Age (in weeks): EDC: Hx Hx Para Hx Section SAB PFSH Medical History CAD (coronary artery disease) Diabetes Dyslipidemia Hypertension Type 2 diabetes mellitus without complications Peripheral vascular disease, unspecified Essential (primary) hypertension Atherosclerotic heart disease of [place] coronary artery without angina pectoris Diabetes mellitus, type 2 Former tobacco use Obesity Chest pain NSTEMI (non-ST elevated myocardial infarction) Branch retinal artery occlusion Hyperlipemia Home Medications ?Medication ?Instructions ?Recorded ?Last Taken ?Type multivitamin with folic acid 400 1 tab PO DAILY vitamin 04/18/16 04/19/16 History mcg tablet (Thera) amlodipine 10 mg tablet 10 mg PO DAILY 01/28/24 Unknown History clonidine HCl 0.2 mg tablet 0.2 mg PO BID 01/28/24 Unknown History gabapentin 300 mg capsule 300 mg PO DAILY 01/28/24 Unknown History lisinopril 40 mg tablet 40 mg PO BID 01/28/24 Unknown History aspirin 81 mg tablet,delayed 81 mg PO BREAKFAST #30 tabs 01/30/24 Unknown Rx release clopidogrel 75 mg tablet 75 mg PO QDAY 05/28/24 Unknown History metformin 500 mg tablet 1,000 mg PO BID diabetes 05/28/24 Unknown History nitroglycerin 0.3 mg sublingual 0.3 mg sublingual Q5M PRN angina 05/28/24 Unknown History tablet atorvastatin 40 mg tablet 40 mg PO QPM #90 tabs 09/14/24 Unknown Rx metoprolol tartrate 25 mg tablet 12.5 mg PO BID 09/14/24 Unknown History hydralazine 50 mg tablet 50 mg PO TID #270 tabs 12/04/24 Unknown Rx omeprazole 40 mg capsule,delayed 40 mg PO DAILY 04/29/25 Unknown History release Allergy/AdvReac Type Severity Reaction Status Date / Time No Known Allergies Allergy Verified 05/08/25 06:07 Family History Mother Cancer Father CVA (cerebral vascular accident) Surgical History H/O coronary angioplasty Stented coronary artery (01/29/24) History of coronary artery bypass graft x 3 H/O angioplasty Failed CABG (coronary artery bypass graft) Social History household members: spouse Smoking Status: Former smoker alcohol intake: current alcohol intake frequency: a few times a month substance use type: does not use Review of Systems (Anesthesia) ROS Narrative System reviewed and no additional complaints, except as documented.
--- NOTE | 2025-05-08 07:16 | PCM.PRE.AN2 ---
ASA Classification* ASA Classification ASA Classification: 3 and E Assessment & Plan Anesthesia* Anesthesia Assessment Anesthesia Assessment: Discussed sedation and/or anesthesia options, risks, benefits, and alternatives with patient/parents/legal guardian/POA. Questions invited. The patient/parents/legal guardian/POA seems to understand and agrees to proceed with anesthesia plan. Reviewed the physical assessment, medical history, allergy history and patient home medications list prior to surgery/procedure/anesthetic and documented any changes. Performed airway and anesthesia risk assessments. Anesthesia Type Anesthesia Type: General Anesthesia Focused Assessment* Temperature: 98.1 F Pulse Rate: 59 Blood Pressure: 134/71 Respiratory Rate: 18 Pulse Ox: 99 Airway Assessment Mouth opens: >3 cm Mallampati Score: II Labs Anesthesia Preop lab: CBC WBC 6.6 K/mm3 (4.4-11.0) 09/28/24 13:33 09/28/24 RBC 3.54 M/mm3 (4.6-6.2) L 09/28/24 13:33 09/28/24 Hgb 12.0 g/dL (13.0-16.5) L 09/28/24 13:33 09/28/24 Hct 33.4 % (40-54) L 09/28/24 13:33 09/28/24 Plt Count 216 K/mm3 (150-450) 09/28/24 13:33 09/28/24 CHEMISTRY Potassium 4.7 mmol/L (3.5-5.1) 10/12/24 14:25 10/12/24 Sodium 128 mmol/L (136-145) L 10/12/24 14:25 10/12/24 Magnesium 1.9 mg/dL (1.6-2.6) 01/29/24 03:01 01/29/24 Phosphorus 3.6 mg/dL (2.5-4.9) 01/29/24 03:01 01/29/24 BUN 10 mg/dL (7-18) 10/12/24 14:25 10/12/24 Creatinine 0.72 mg/dL (0.70-1.30) 10/12/24 14:25 10/12/24 Glucose 144 mg/dL (74-106) H 10/12/24 14:25 10/12/24 POC Glucose 224 mg/dL (74-106) H 01/30/24 09:57 01/30/24 TSH 0.31 uIU/mL (0.358-3.74) L 01/29/24 03:01 01/29/24 COAG PT 13.2 SECONDS (11.7-14.9) 09/28/24 13:33 09/28/24 Pre-Assessment Diagnosis/Proposed Procedure Planned Operative Procedure(s): ORIF Finger Anesthesia History 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 When Was Last Pacemaker Check QUESTION #4 FULL TEXT: You/Your Family Experience fever (hyperthermia) with Anesthesia Last Oral Intake Last Oral intake: Last Oral Intake NPO since Meds taken in AM with sips of water? 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: PONV - scrap materials buyer Female HX of Motion Sickness HX of N/V After Surgery Non-Smoker Duration of Surgery greater than 60 minutes Number of Risk Factors PONV Score Height & Weight Height & Weight: Anesthesia: Height & Weight Height 5 ft 10 in 05/08/25 06:20 Weight: 84 kg 05/08/25 06:20 Body Mass Index (BMI) 26.5 05/08/25 06:20 Respiratory Assessment Respiratory Assessment - scrap materials buyer: Respiratory Tract Infection Hx - scrap materials buyer Hx Respiratory Tract Infection No 05/08/25 06:20 STOP Sleep Apnea STOP Sleep Apnea - scrap materials buyer: STOP Sleep Apnea - scrap materials buyer Hx Hypertension Yes 05/08/25 06:20 Hx Sleep Apnea No 05/08/25 06:20 CPAP BIPAP Do you snore loudly (louder Yes 05/08/25 06:20 than talking or can be heard Do you often feel tired/ No 05/08/25 06:20 fatigued/ sleepy during daytime? Has anyone observed you stop No 05/08/25 06:20 breathing during sleep? STOP Results Positive 05/08/25 06:20 QUESTION #5 FULL TEXT : Do you snore loudly (louder than talking or can be heard through closed doors)? 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 Specify any problems Hx of Preganancy in last 3 Months Nurse Filling Out Transfusion & Questions: Date: Time: Patient unable to answer at this time (ie. confused, unrespo /Reproduction History /Reproductive History - scrap materials buyer: /Reproductive Hx- scrap materials buyer Hx Now Gestational Age (in weeks): EDC: Hx Hx Para Hx Section SAB PFSH Medical History CAD (coronary artery disease) Diabetes Dyslipidemia Hypertension Type 2 diabetes mellitus without complications Peripheral vascular disease, unspecified Essential (primary) hypertension Atherosclerotic heart disease of [place] coronary artery without angina pectoris Diabetes mellitus, type 2 Former tobacco use Obesity Chest pain NSTEMI (non-ST elevated myocardial infarction) Branch retinal artery occlusion Hyperlipemia Home Medications ?Medication ?Instructions ?Recorded ?Last Taken ?Type multivitamin with folic acid 400 1 tab PO DAILY vitamin 04/18/16 04/19/16 History mcg tablet (Thera) amlodipine 10 mg tablet 10 mg PO DAILY 01/28/24 Unknown History clonidine HCl 0.2 mg tablet 0.2 mg PO BID 01/28/24 Unknown History gabapentin 300 mg capsule 300 mg PO DAILY 01/28/24 Unknown History lisinopril 40 mg tablet 40 mg PO BID 01/28/24 Unknown History aspirin 81 mg tablet,delayed 81 mg PO BREAKFAST #30 tabs 01/30/24 Unknown Rx release clopidogrel 75 mg tablet 75 mg PO QDAY 05/28/24 Unknown History metformin 500 mg tablet 1,000 mg PO BID diabetes 05/28/24 Unknown History nitroglycerin 0.3 mg sublingual 0.3 mg sublingual Q5M PRN angina 05/28/24 Unknown History tablet atorvastatin 40 mg tablet 40 mg PO QPM #90 tabs 09/14/24 Unknown Rx metoprolol tartrate 25 mg tablet 12.5 mg PO BID 09/14/24 Unknown History hydralazine 50 mg tablet 50 mg PO TID #270 tabs 12/04/24 Unknown Rx omeprazole 40 mg capsule,delayed 40 mg PO DAILY 04/29/25 Unknown History release Allergy/AdvReac Type Severity Reaction Status Date / Time No Known Allergies Allergy Verified 05/08/25 06:07 Family History Mother Cancer Father CVA (cerebral vascular accident) Surgical History H/O coronary angioplasty Stented coronary artery (01/29/24) History of coronary artery bypass graft x 3 H/O angioplasty Failed CABG (coronary artery bypass graft) Social History household members: spouse Smoking Status: Former smoker alcohol intake: current alcohol intake frequency: a few times a month substance use type: does not use Review of Systems (Anesthesia) ROS Narrative System reviewed and no additional complaints, except as documented.
--- NOTE | 2025-05-08 07:25 | RAD_ITS ---
PROCEDURE: HAND MIN 3 VIEWS 05/08/2025 REASON FOR EXAM: FX TECHNIQUE: HAND MIN 3 VIEWS COMPARISON: 05/07/2025 FINDINGS: There is redemonstration of a vertically oriented, intra-articular fracture, base of 2nd metacarpal bone, with displacement. The patient is undergoing orthopedic repair with plate and screws. Intact hardware. RAD/Hand Min 3 Views IMPRESSION: Unremarkable intraoperative appearance. [facility]
--- NOTE | 2025-05-08 07:25 | RAD_ITS ---
PROCEDURE: HAND MIN 3 VIEWS 05/08/2025 REASON FOR EXAM: FX TECHNIQUE: HAND MIN 3 VIEWS COMPARISON: 05/07/2025 FINDINGS: There is redemonstration of a vertically oriented, intra-articular fracture, base of 2nd metacarpal bone, with displacement. The patient is undergoing orthopedic repair with plate and screws. Intact hardware. RAD/Hand Min 3 Views IMPRESSION: Unremarkable intraoperative appearance. Reading [facility]
--- OUTSIDE RECORDS SUMMARY | 2025-05-08 07:34 | XMS RPT_ITS | CCD ---
Author Organization [facility] CliniSyil Care Team Providers Care Cloth Folder Machine Name Role Phone Jorge A LADD, Sher [...] Care Provider Dr. Kvng Jacobson Emergency Provider [phone] Dr. Rubio Simeon Attending Provider Dr. Rubio [...] Unavailable Sher Jules Primary Care Provider Maximo OFFICE MACHINE PUNCH OPERATORJUAN, Barb Ley Unavailable SERGEI COLLINS Attending Unavailable [...] LADD, Dr. Madrigal Emergency Provider Jose A RIFLE CASE REPAIRER-CJordana Attending Provider [phone] Sanya LADD, Dr. [...] Unavailable Jules, Sher Primary Care Unavailable Roof RIFLE CASE REPAIRER, Tootie H Attending Unavailable Roof RIFLE CASE REPAIRER, Tootie H Referring Unavailable Jules, Sher Primary [...] Patterson Referring Unavailable Blanco, Rubio Referring Unavailable Blacno, Rubio Attending Unavailable Jules, Sher Primary Care Unavailable Jules, Sher Primary Care Unavailable Jordana Naranjo Attending Unavailable Jules, Sher Referring Unavailable Jlues, Sher Primary Care Unavailable Nain Segundo Attending [...] on above: Take [address] [facility] daily at bedtime for 180 days. hydrALAZINE [...] 12 hours. Take [address] tablets [address] mo [facility] every 12 hours. Multivitamin With Folic Acid [...] Coronary atherosclerosis; Translations: [Atherosclerotic heart disease of [place] coronary artery without angina pectoris] Onset: 05-06-2023 [...] X 22 and 2.5 X 1 2 [place] LISANDRO to distal RCA (01/29/24); drug-eluting stent [...] Report on 05-07-2025 Plastic Surgery Visit Report [facility] Plastic Reconstructive Surgery [address], [address] [place] [address] OFFICE VISIT Date of Service: 05/07/25 MR#: [id number] Acct: [id number] Name: MARIE HUTSON Rep #: [id number] : 1950 Provider: Dr. Nic Rodriguez MD Age/Sex: 75/M Location: [facility] Status: Signed Intake Vital Signs 05/06/25 14:05 05/07/25 13:28 Height 5 ft 10 in 5 ft 10 in Weight: 198 lb 194 lb BMI 28.4 27.8 BP 156/71 H Blood Pressure Location Lt brachial Position Sitting Respiration 16 Pulse 57 L Pulse Source Monitor Pulse Oximetry (%) 97 Oxygen Delivery Method room air Intake Visit Reasons: R HAND Temporary Administrative Assistant Required: No Accompanied by: Self Is patient [...] denies pain at this time. injury 04/29/25. [facility] Medical History CAD (coronary artery disease) Diabetes Dyslipidemia Hypertension Type 2 diabetes mellitus without complications Peripheral vascular disease, unspecified Essential (primary) hypertension Atherosclerotic heart disease of [place] coronary artery without angina pectoris Diabetes mellitus, [...] No ligh (more content not included)... Normal [facility] Hand Min 3 Viewson 5 Hand Min 3 Views [facility] Imaging Services [address] [place], [place] [address] Hand Min 3 Views MR#: [id number] Acct: [id number] Name: MARIE HUTSON Rep #: [id number] : 1950 M 75 From: Arslan beasley MD PCP: Dr. Sher Jules MD Status: DEP AMB Study: Hand Min 3 Views Date of Exam: 05/06/25 Exam# [id number] Ordering Dr: Jordana Naranjo RIFLE CASE REPAIRER-Getachew PROCEDURE: HAND MIN 3 VIEWS 05/06/2025 REASON [...] metacarpal bone. Follow-up is advised Reading Location[facility] CC: TANIYA Naranjo; Dr. Sher Jules MD Bindery Production Manager: Signed Normal [facility] Orthopedic Visit Reporton Orthopedic Visit Report [facility] [address] [place] [address] [place] [address] OFFICE VISIT Date of Service: 05/06/25 MR#: [id number] Acct: [id number] Name: MARIE HUTSON Rep #: [id number] : 1950 Provider: TANIYA stock Age/Sex: 75/M Location[facility] Status: Signed Intake Vital Signs 04/29/25 22:27 [...] Essential (primary) hypertension Atherosclerotic heart disease of [place] coronary artery without angina pectoris Diabetes mellitus, [...] the decisions made by me, Jordana Naranjo RIFLE CASE REPAIRER-C 05/06/25 1402. Part of today???s visit was [...] of the hand. He was seen in [facility] ER after the fall because he needed stitches in the head but the hand was not bothering him then so he didn't have it checked. He states the hand did not start bothering him until the next day when he started to notice some swelling and bruising. Patient is LHD. 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 He denies [...] cough, De (more content not included)... Normal [facility] Emergency Department Summary on 04-30-2025 Emergency Department Summary [facility] Medical Records Department [address] [place] [address] Emergency Department Summary 04/30/25 MR#: [id number] Acct: [id number] Name: MARIE HUTSON Rep #: [id number] : 1950 75 From: Rohan Wallace MD [...] similar symptoms: No Recent Illness/H[facility]ization : [facility] Medical History Atherosclerotic heart disease of [place] coronary artery without angina pectoris Branch retinal [...] Denies dysuria, (more content not included)... Normal [facility] Brain/Head without Contrasto n 04-29-2025 Brain/Head without Contrast [facility] Imaging Services [address] [place] [address] Brain/Head without Contrast MR#: [id number] Acct: [id number] Name: MARIE HUTSON Rep #: [id number] : 1950 M 75 From: Kirill Sifuentes MD PCP: Dr. Sher Jules MD Status: REG ER Study: Brain/Head without Contrast Date of Exam: 01/19 Exam# [id number] Ordering Dr: Rohan Wallace MD PROCEDURE: BRAIN/HEAD [...] IMPRESSION: No acute intracranial finding Reading Location: [place] [address] CC: Dr. Rohan Wallace MD; Dr. Sher Jules MD Bindery Production Manager: Signed Normal [facility] CNOVon 04-22-2025 CNOV Office Visit (GENSWS ) MARIE HUTSON ([id number]) 1950 M Date Time Provider Department 04/22/25 10:30 AM ELVIE MONTERROSO During your visit today, we recorded the following information about you: Elvie Monterroso APRN.CNP 04/22/2025 10:56 AM Signed FOLLOW UP VISIT - ENDOSCOPY Marie Hutson 1950 [id number] REFERRING PHYSICIAN: Nikos Rivera [address] [facility] [address] Marie Hutson is a patient I am [...] needed for worsening/no improvement. ____ Elvie Monterroso APRN.HAY FARMER Referring Provider: NIKOS RIVERA [[id number]] Allergies As of Date: 04/22/2025 (No Known Allergies) Date Reviewed: 04/22/2025 Reviewed by: Elvie Monterroso APRN.HAY FARMER - Fully Assessed Reason for Visit: Follow [...] EC tablet (more content not included)... Normal [facility] [id number] 04-14-2025 [id number] HNO ID: [id number] Author: NURIS MEEK RN Service: ? Author Type: Registered Nurse Type: [id number] Filed: 04/14/2025 09:21 Note Text: The patient received a copy of Colonoscopy and EGD discharge instructions that contain information for how to contact the physician who performed the procedure and when to seek medical care. Normal [facility] Colonoscopyon 04-14-2025 Colonoscopy [place] [facility] Gastrointestinal Endoscopy Patient Name: Marie Hutson [...] current guidelines. Procedure Code(s): --- Professional --- 94991, Colonoscopy, flexible; with biopsy, single or multiple G0500, Moderate sedation services provided by the same physician or other qualified health lawn care technician performing a gastrointestinal endoscopic service that sedation supports, requiring the presence of an independent trained observer to assist in the monitoring of the patient's level of consciousness and physiological status; initial 15 minutes of intra-service time; patient age 5 years or older (additional time may be reported with 09249, as appropriate) 55059, Moderate sedation; each additional 15 minutes intraservice ti (more content not included)... Normal [facility] Colonoscopy Study observatio non 04-14-2025 [facility] Gastrointestinal Endoscopy Patient Name: Marie Hutson [...] patient to (more content not included)... [facility] EGD Study observation Liloalexey la 04-14-2025 [place] [facility] Gastrointestinal Endoscopy Patient Name: Marie Hutson Procedure Date: 04/14/2025 8:10 AM Date of : 1950 Admit Type: Outpatient Age: 75 Gender: Male Note Status: Gateman Override Procedure: Upper GI endoscopy Indications: Iron [...] inflammation characteri (more content not included)... [facility] GLUCOSE, BLOOD (POC)on 04-14 Glucose [Mass/Vol] 116 mg/dL Abnormal 74 - 99 mg/dL [facility] Comment on above: Location:[facility] ER, [address], [place], [place], [address] The Accu-Chek Inform II glucose meter has [...] Interpretation and review of laboratory results Abnormal [facility] HISTORY PHYSICALon HISTORY PHYSICAL HNO ID: [id number] Author: NIKOS RIVERA MD Service: General Surgery Author Type: Physician Type: H&P Filed: 04/14/2025 07:29 Note Text: HISTORY AND PHYSICAL Marie Hutson : 1950 REFERRING PHYSICIAN: Barb Suggs [address] [place] [address] CHIEF COMPLAINT: Patient presents with: Consult: For [...] ulcers/ peptic ulcer disease. Marie follows with [facility] for hx of CABG x 3 (2012), CAD with 2 stents in 09/2024. On plavix. Last OV 01/2025. He denies CP, SOB, dizziness, palpitations, syncope, edema, recent hospitalizations Other medical history is significant for T2DM and osteoarthritis. Marie has undergone prior endoscopy. Last colonoscopy was 11/[address] Rivera at [facility]. Sedation:Midazolam 5 mg IV, Fentanyl 100 micrograms [...] Diagnosis Date Anemia, unspecified type Atherosclerosis of [place] arteries of the extremities with intermittent claudication [...] as uncontrolled (more content not included)... Normal [facility] No Panel Informationon 04-14 Radiology Study observation (narrative) Fuad fleming [facility] Pathology biopsy report Kojo (Tiss)on 04-14-2025 AP DISCLAIMER Normal [facility] Comment on above: Order Comment: Mariza gomes Type: BLOOD SPECIMEN Ordering Facility: [facility] Address: [address] [place] [address] Result Comment: Mary garcia Developed Test (LDT) Disclaimer: Performance characteristics of immunohistochemical, immunofluorescent, and chromogenic in-situ hybridization tests have been determined by the performing laboratory within [facility] Pathology and Laboratory Medicine Department ([facility], [facility], [facility], [facility], [facility], [facility], or [facility]) in a manner consistent with CLIA [...] appropriately. Performed By: #### 5 8410-2 #### [facility] CLIA [id number] [address] [place] [address] [place] CASE REPORT Normal [facility] Comment on above: Order Comment: Mariza gomes Type: BLOOD SPECIMEN Ordering Facility: [facility] Address: [address] [place] [address] Result Comment: S[facility] Pathology Report Case: [id number] Authorizing Provider: Nikos Rivera MD Collected: 04/14/2025 08:28 AM Ordering Location: Ambulatory Surgery Received: 04/14/2025 12:31 PM Pathologist: Judith Clemente MD Specimens: A) - Stomach, Antrum, Biopsy, Antral bx for h/h B) - Esophagus, Distal, Biopsy, for inflammation C) - Colon, Cecum, Polyp, Cecal x 2 polyps Performed By: #### 5 8410-2 #### [facility] CLIA [id number] [address] [place] [address] [place] FINAL DIAGNOSIS Normal [facility] Comment on above: Order Comment: Mariza gomes Type: BLOOD SPECIMEN Ordering Facility: [facility] Address: [address] [place] [address] Result Comment: A. S tomach, antrum, biopsy: [...] EDT Performed By: #### 5 8410-2 #### [facility] CLIA [id number] [address] [place] [address] [place] FINAL PERFORMING LAB Normal [facility] Comment on above: Order Comment: Speci men Type: BLOOD SPECIMEN Ordering Facility: [facility] Address: [address] [place] [address] Result Comment: Diag nostic interpretation performed at: [facility], [address] [place] [address] CLIA# [id number] Autobody Technician: Modesto Vargas MD Performed By: #### 5 8410-2 #### [facility] CLIA [id number] [address] [place] [address] GROSS DESCRIPTION Normal [facility] Comment on above: Order Comment: Speci men Type: BLOOD SPECIMEN Ordering Facility: [facility] Address: [address] [place] [address] Result Comment: A. S tomach, Antrum, Biopsy [...] cm. Totally submitted in one cassette. [facility] April 14, 2025 11:07 PM Gross examination performed at [facility], [address] [place] [address] Performed By: #### 5 8410-2 #### [facility] CLIA [id number] [address] [place] [address] [place] [address] [place] [facility] Upper GI endoscopyon 025 Upper GI endoscopy [facility] Gastrointestinal Endoscopy Patient Name: Marie Hutson Procedure Date: 04/14/2025 8:10 AM Date of : 1950 Admit Type: Outpatient Age: 75 Gender: Male Note Status: Gateman Override Procedure: Upper GI endoscopy Indications: Iron [...] PO daily. Procedure Code(s): --- Professional --- 84843, Esophagogastroduodenosc opy, flexible, transoral; with biopsy, single or multiple G0500, Moderate sedation services provided by the same physician or other qualified health lawn care technician performing a gastrointestinal endoscopic service that sedation supports, requiring the presence of an independent trained observer to assist in the monitoring of the p (more content not included)... Normal [facility] CNOVon 04-06-2025 CNOV Office Visit (VASSWS ) MAREI HUTSON ([id number]) 1950 M Date Time Provider Department 04/06/25 [...] AM Signed Heart , Vascular and Thoracic [place] DEPARTMENT OF VASCULAR SURGERY OUTPATIENT VISIT DATE [...] Diagnosis Date Anemia, unspecified type Atherosclerosis of [place] arteries of the extremities with intermittent claudication [...] with meals. (more content not included)... Normal [facility] PVR ANK/EASTMAN/TOE NOHEMY VAS LAB on [...] disease at rest. Technologist: Evi Hernandes RVT [facility] Ordering physician: NARGIS YIN Interpreting physician: Dov Og MD, ABDELRAHMAN Final CC [email or web address] Medical Image : [id number] See Link below for Image Normal [facility] Electrolytes 1998 panelon Anion gap [Moles/Vol] 9 mmol/L Normal 8-15 [facility] Comment on above: Order Comment: Speci men Type: BLOOD SPECIMENOrdering Facility: [facility] Address: [address] [place] [address] Performed By: #### 2 4326-1 ####[facility] [id number] [place] [address] [place] Chloride [Moles/Vol] 96 mmol/L Low 98-107 [facility] Comment on above: Order Comment: Speci men Type: BLOOD SPECIMENOrdering Facility: [facility] Address: [address] [place] [address] Performed By: #### 2 4326-1 ####[facility] [id number] [place] [id number] [place] CO2 [Moles/Vol] 25 mmol/L Normal 22-30 [facility] Comment on above: Order Comment: Speci men Type: BLOOD SPECIMENOrdering Facility: [facility] Address: [address] [place] [address] Performed By: #### 2 4326-1 ####[facility] [id number] [place] [address] [place] Potassium [Moles/Vol] 4.5 mmol/L Normal 3.7-5.1 [facility] Comment on above: Order Comment: Speci men Type: BLOOD SPECIMENOrdering Facility: [facility] Address: [address] [place] [address] Performed By: #### 2 4326-1 ####[facility] [id number] [place] [address] [place] Sodium [Moles/Vol] 130 mmol/L Low 136-144 [facility] Comment on above: Order Comment: Speci men Type: BLOOD SPECIMENOrdering Facility: [facility] Address: [address] [place] [address] Performed By: #### 2 4326-1 ####[facility] [id number] [place] [id number] [place] CNOVon 03-18-2025 CNOV Office Visit ([facility] ) MARIE HUTSON ([id number]) 1950 M Date Time Provider Department 03/18/25 9:30 AM ELVIE MONTERROSO During your visit today, we recorded the following information about you: Pulse Respiration Blood pressure Weight 62/minute 14/minute 128/62 86.8 kg Elvie Monterroso APRN.CNP 03/18/2025 10:06 AM Signed HISTORY AND PHYSICAL Marie Hutson : 1950 REFERRING PHYSICIAN: Barb Suggs [address] [facility] [address] CHIEF COMPLAINT: Patient presents with: Consult: For [...] ulcers/ peptic ulcer disease. Marie follows with [facility] for hx of CABG x 3 (2012), CAD with 2 stents in 09/2024. On plavix. Last OV 01/2025. He denies CP, SOB, dizziness, palpitations, syncope, edema, recent hospitalizations Other medical history is significant for T2DM and osteoarthritis. Marie has undergone prior endoscopy. Last colonoscopy was 11/[address] Rivera at [facility]. Sedation:Midazolam 5 mg IV, Fentanyl 100 micrograms [...] Diagnosis Date Anemia, unspecified type Atherosclerosis of [place] arteries of the extremities with intermittent claudication [...] and M (more content not included)... Normal [facility] Hemoccult Stl Ql IAon 2024 Lower GI hemoglobin IA Ql (Stl) Negative Normal Negative [facility] Comment on above: Order Comment: Speci men Type: STOOL SPECIMENOrdering Facility: [facility] Address: [address] [place] [address] Performed By: #### 2 9771-3 ####[facility] [id number] [address] [facility] CNOVon 03-16-2025 CNOV Office Visit (INTMWS ) MARIE HUTSON ([id number]) 1950 Av Date Time Provider Department 03/16/25 10:00 AM BARB SUGGS INTMWS During your visit today, we recorded the following information about you: Pulse Respiration Blood pressure Weight 60/minute 14/minute 130/74 86.3 kg Height 1.75 m Barb Suggs, OFFICE MACHINE PUNCH OPERATOR.HAY FARMER 03/16/2025 10:47 AM Signed Marie Davis Caryl [...] PCP - General Barb Suggs APRN.HAYDEN as Land Examiner (Internal Medicine) [facility] (Neurology) [facility]anco LADD (Cardiology) Nargis Yin MD Vascular-[facility] DPM, Podiatry-[facility] Veneer Grader-Hugh Delacruz/Dr. Edward Adams Community Marketing Coordinator- Christian Merritt Medical/Family history review Reviewed and [...] also discussed with the patient: Recording using [employer] software for draft documentation of the visit was discussed with the patient/authorized customer service representative teller; all questions welcomed and answered. Patient/authorized customer service representative teller agreed to proceed Marie is a 75-year-old [...] He recently had two stents placed in [place] and is currently on Plavix, which he [...] Wt 86 (more content not included)... Normal [facility] Ferritin SerPl-mCncon 2024 Ferritin [Mass/Vol] 198.0 ng/mL Normal 30.3-565.7 [facility] Comment on above: Order Comment: Speci men Type: BLOOD SPECIMEN Ordering Facility: [facility] Address: [address] [place] [address] Performed By: #### 5 8410-2 #### [facility] CLIA [id number] [address] [place] [address] [place] Folate SerPl-ncon 03-16-20 Folate [Mass/Vol] ng/mL Normal >4.7 [facility] Comment on above: Order Comment: Speci men Type: BLOOD SPECIMEN Ordering Facility: [facility] Address: [address] [place] [address] Result Comment: A re sult of > 20 ng/mL is not necessarily indicative of a pathologic or treatable condition: it reflects a limitation of the test methodology. Assay reference range: 4.8 to 24.2 ng/mL. Suitable for detection of folate deficiency. Reference: Folate III (Folate III) [package insert V 1.0 Ug[place]an]. [facility], [place], [place]: August 2015. Performed By: #### 5 8410-2 #### [facility] CLIA [id number] [address] [place] [address] [place] Iron and Iron binding capaci panel 03-16-2025 Iron [Mass/Vol] 44 ug/dL Normal 41-186 [facility] Comment on above: Order Comment: Speci men Type: BLOOD SPECIMEN Ordering Facility: [facility] Address: [address] [place] [address] Performed By: #### 5 8410-2 #### [facility] CLIA [id number] [address] [place] [address] [place] Iron binding capacity [Mass/Vol] 273 ug/dL Normal 232-386 [facility] Comment on above: Order Comment: Speci men Type: BLOOD SPECIMEN Ordering Facility: [facility] Address: [address] [place] [address] Performed By: #### 5 8410-2 #### [facility] CLIA [id number] [address] [place] [address] [place] Iron/TIBC [Molar ratio] 16.1 % Normal 15.0-57.0 [facility] Comment on above: Order Comment: Speci men Type: BLOOD SPECIMEN Ordering Facility: [facility] Address: [address] [place] [address] Performed By: #### 5 8410-2 #### [facility] CLIA [id number] [address] [place] [address] [place] Osmolality SerPlon Osmolality [Osmolality] 276 mosm/kg Normal 275-300 [facility] Comment on above: Order Comment: Speci men Type: BLOOD SPECIMENOrdering Facility: [facility] Address: [address] [place] [address] Performed By: #### 2 692-2 ####[facility] [id number] [address] [place] Osmolality Uron 03-16-2025 Osmolality (U) [Osmolality] 313 mosm/kg Normal 50-1200 [facility] Comment on above: Order Comment: Speci men Type: BLOOD SPECIMEN Ordering Facility: [facility] Address: [address] [place] [address] Performed By: #### 5 8410-2 #### [facility] CLIA [id number] [address] [place] [address] [place] Sodium ?Tm Ur-sCncon 025 Sodium Unsp time (U) [Moles/Vol] 40 mmol/L Normal 14-216 [facility] Comment on above: Order Comment: Speci men Type: URINE SPECIMEN Ordering Facility: [facility] Address: [address] [place] [address] Performed By: #### 3 5678-2 #### [facility] CLIA [id number] [address] [place] [address] [place] Vit B12 SerPl-mCncon 025 Cobalamin (Vitamin B12) [Mass/Vol] 555 pg/mL Normal 232-1245 [facility] Comment on above: Order Comment: Speci men Type: BLOOD SPECIMEN Ordering Facility: [facility] Address: [address] [place] [address] Performed By: #### 5 8410-2 #### [facility] CLIA [id number] [address] [place] [address] [place] [address] [place] XR HAND 3V [...] bilaterally. IMPRESSION: Bilateral hand osteoarthritis. No erosions. Bindery Production Manager: PSCB Transcribe Date/Time: Mar 20 2025 2:18P Dictated by : DREAD CORONA MD This examination was interpreted and the report reviewed and electronically signed by: DREAD CORONA MD on Mar 20 2025 2:20PM EST [id number] Normal [facility] Basic metabolic 2000 panelon 03-15-2025 Anion gap [Moles/Vol] 12 mmol/L Normal 8-15 [facility] Comment on above: Order Comment: Speci men Type: BLOOD SPECIMEN Ordering Facility: [facility] Address: [address] [place] [address] Performed By: #### 5 8410-2 #### [facility] CLIA [id number] [address] [place] [address] [place] Calcium [Mass/Vol] 9.7 mg/dL Normal 8.5-10.2 [facility] Comment on above: Order Comment: Speci men Type: BLOOD SPECIMEN Ordering Facility: [facility] Address: [address] [place] [address] Performed By: #### 5 8410-2 #### [facility] CLIA [id number] [address] [place] [address] [place] Chloride [Moles/Vol] 93 mmol/L Low 98-107 [facility] Comment on above: Order Comment: Speci men Type: BLOOD SPECIMEN Ordering Facility: [facility] Address: [address] [place] [address] Performed By: #### 5 8410-2 #### [facility] CLIA [id number] [address] [place] [address] [place] CO2 [Moles/Vol] 21 mmol/L Low 22-30 [facility] Comment on above: Order Comment: Speci men Type: BLOOD SPECIMEN Ordering Facility: [facility] Address: [address] [place] [address] Performed By: #### 5 8410-2 #### [facility] CLIA [id number] [address] [place] [address] [place] Creatinine [Mass/Vol] 0.56 mg/dL Low 0.73-1.22 [facility] Comment on above: Order Comment: Speci men Type: BLOOD SPECIMEN Ordering Facility: [facility] Address: [address] [place] [address] Performed By: #### 5 8410-2 #### [facility] CLIA [id number] [address] [place] [address] [place] Creatinine and Glomerular filtration rate.predicted panel (S/P/Bld) 104 mL/min/1.73m??? Normal >=60 [facility] Comment on above: Order Comment: Mariza gomes Type: BLOOD SPECIMEN Ordering Facility: [facility] Address: [address] [place] [address] Result Comment: Ingrid mated Glomerular Filtration Rate [...] GFR. Performed By: #### 5 8410-2 #### [facility] CLIA [id number] [address] [place] [address] [place] Glucose [Mass/Vol] 90 mg/dL Normal 74-99 [facility] Comment on above: Order Comment: Mariza gomes Type: BLOOD SPECIMEN Ordering Facility: [facility] Address: [address] [place] [address] Result Comment: The [place] Diabetes Association (ADA) provides guidance for cutoff [...] Standards of Medical Care in Diabetes 2016, [place] Diabetes Association. Diabetes Care. 2016.39(Suppl 1). Performed By: #### 5 8410-2 #### [facility] CLIA [id number] [address] [place] [address] [place] Potassium [Moles/Vol] 4.4 mmol/L Normal 3.7-5.1 [facility] Comment on above: Order Comment: Speci men Type: BLOOD SPECIMEN Ordering Facility: [facility] Address: [address] [place] [address] Performed By: #### 5 8410-2 #### [facility] CLIA [id number] [address] [place] [address] [place] Sodium [Moles/Vol] 126 mmol/L Low 136-144 [facility] Comment on above: Order Comment: Speci men Type: BLOOD SPECIMEN Ordering Facility: [facility] Address: [address] [place] [address] Performed By: #### 5 8410-2 #### [facility] CLIA [id number] [address] [place] [address] [place] Urea nitrogen [Mass/Vol] 9 mg/dL Normal 9-24 [facility] Comment on above: Order Comment: Speci men Type: BLOOD SPECIMEN Ordering Facility: [facility] Address: [address] [place] [address] Performed By: #### 5 8410-2 #### [facility] CLIA [id number] [address] [place] [address] [place] CBC panel Auto (Bld)on 03-15 Erythrocyte distribution width (RBC) [Ratio] 11.8 % Normal 11.5-15.0 [facility] Comment on above: Order Comment: Speci men Type: BLOOD SPECIMEN Ordering Facility: [facility] Address: [address] [place] [address] Performed By: #### 5 8410-2 #### [facility] CLIA [id number] [address] [place] [address] [place] Hematocrit (Bld) [Volume fraction] 29.8 % Low 39.0-51.0 [facility] Comment on above: Order Comment: Speci men Type: BLOOD SPECIMEN Ordering Facility: [facility] Address: [address] [place] [address] Performed By: #### 5 8410-2 #### [facility] CLIA [id number] [address] [place] [address] [place] Hemoglobin (Bld) [Mass/Vol] 10.6 g/dL Low 13.0-17.0 [facility] Comment on above: Order Comment: Speci men Type: BLOOD SPECIMEN Ordering Facility: [facility] Address: [address] [place] [address] Performed By: #### 5 8410-2 #### [facility] CLIA [id number] [address] [place] [address] [place] MCH (RBC) [Entitic mass] 34.8 pg High 26.0-34.0 [facility] Comment on above: Order Comment: Speci men Type: BLOOD SPECIMEN Ordering Facility: [facility] Address: [address] [place] [address] Performed By: #### 5 8410-2 #### [facility] CLIA [id number] [address] [place] [address] [place] MCHC (RBC) [Mass/Vol] 35.6 g/dL Normal 30.5-36.0 [facility] Comment on above: Order Comment: Speci men Type: BLOOD SPECIMEN Ordering Facility: [facility] Address: [address] [place] [address] Performed By: #### 5 8410-2 #### [facility] CLIA [id number] [address] [place] [address] [place] MCV (RBC) [Entitic vol] 97.7 fL Normal 80.0-100.0 [facility] Comment on above: Order Comment: Speci men Type: BLOOD SPECIMEN Ordering Facility: [facility] Address: [address] [place] [address] Performed By: #### 5 8410-2 #### [facility] CLIA [id number] [address] [place] [address] [place] Nucleated RBC (Bld) [#/Vol] 10*3/uL Normal <0.01 [facility] Comment on above: Order Comment: Speci men Type: BLOOD SPECIMEN Ordering Facility: [facility] Address: [address] [place] [address] Performed By: #### 5 8410-2 #### [facility] CLIA [id number] [address] [place] [address] [place] Platelet mean volume (Bld) [Entitic vol] 9.1 fL Normal 9.0-12.7 [facility] Comment on above: Order Comment: Speci men Type: BLOOD SPECIMEN Ordering Facility: [facility] Address: [address] [place] [address] Performed By: #### 5 8410-2 #### [facility] CLIA [id number] [address] [place] [address] [place] Platelets (Bld) [#/Vol] 319 10*3/uL Normal 150-400 [facility] Comment on above: Order Comment: Speci men Type: BLOOD SPECIMEN Ordering Facility: [facility] Address: [address] [place] [address] Performed By: #### 5 8410-2 #### [facility] CLIA [id number] [address] [place] [address] [place] RBC (Bld) [#/Vol] 3.05 10*6/uL Low 4.20-6.[address] [facility] Comment on above: Order Comment: Speci men Type: BLOOD SPECIMEN Ordering Facility: [facility] Address: [address] [place] [address] Performed By: #### 5 8410-2 #### [facility] CLIA [id number] [address] [place] [address] [place] WBC (Bld) [#/Vol] 10.98 10*3/uL Normal 3.70-11.00 [facility] Comment on above: Order Comment: Mariza gomes Type: BLOOD SPECIMEN Ordering Facility: [facility] Address: [address] [place] [address] Performed By: #### 5 8410-2 #### [facility] CLIA [id number] [address] [place] [address] [place] HbA1c (Bld)on 03-15-2025 Average glucose Estimated from glycated hemoglobin (Bld) [Mass/Vol] 103 mg/dL Normal [facility] Comment on above: Order Comment: Mariza gomes Type: BLOOD SPECIMENOrdering Facility: [facility] Address: [address] [place] [address] Result Comment: eAG: (Estimated average glucose) is a calculated value from HgbA1c and is customer service representative teller of the average blood glucose level in the last 2-3 month period. Performed By: #### 5 5454-3 ####[facility] [id number] [place] [address] [place] HbA1c (Bld) [Mass fraction] 5.2 % Normal 4.3-5.6 [facility] Comment on above: Order Comment: Mariza gomes Type: BLOOD SPECIMENOrdering Facility: [facility] Address: [address] [place] [address] Result Comment: [place] Diabetes Association guidelines indicate that patients with HgbA1c in the range 5.7-6.4% are at increased risk for development of diabetes, and intervention by lifestyle modification may be beneficial. HgbA1c greater or equal to 6.5% is considered diagnostic of diabetes. Performed By: #### 5 5454-3 ####[facility] [id number] [place] [id number] [place] Echo Completeon 03-11-2025 Echo Complete [facility] [address] [place] [address] Echo Complete 03/11/25 1008 MR#: [id number] Acct: [id number] Name: MARIE HUTSON Rep #: [id number] : 1950 75 From: Rubio Simeon MD Attending Dr: Dr. Rubio Simeon MD Status: REG I Ordering Dr: Rubio Simeon MD Date: 03/11/25 Location: [facility] Sex: M C Admitted: Reason For [...] Dictated: 03/11/25 1008 Date Transcribed: 03/11/25 1210 Bindery Production Manager: Signed Normal [facility] Echocardiogram study reportO rdered By: Rubio Simeon on 03-11-2025 Study report [facility] Services [address] [place] [address] Echo Complete 03/11/25 1008 MR#: [id number] Acct: [id number] Name: MARIE HUTSON Rep #:[id number] : [...] Sher Jules M.D. Performed By: Rupa Ramires, [facility] 03/11/25 1210 Date _ uRbio Simeon MD CC: Dr. Rubio Simeon MD; Dr. Sher Jules MD ~ Date Dictated: 03/11/25 1008 Date Transcribed: 03/11/25 1210 Bindery Production Manager: Signed [facility] Work Phone: [facility] 02-23-2025 CNOV Office Visit (PODIWS ) MARIE HUTSON ([id number]) 1950 M Date Time Provider Department 02/23/25 [...] (or decreased sensation in your feet) a material analyst should always cut your toenails. Be Careful [...] Go to your health care provider or material analyst to treat these conditions. Continue to check [...] is s (more content not included)... Normal [facility] Cardiology Visit Reporton Cardiology Visit Report [facility] [address] [place] [address] OFFICE VISIT Date of Service: 02/11/25 MR#: [id number] Acct: [id number] Name: MARIE HUTSON Rep #: [id number] : 1950 Provider: Dr. Rubio Simeon MD Age/Sex: 75/M Location[place] [facility] Status: Signed HPI HPI History of [...] NIBP Intake Visit Reasons: 4 M FU Temporary Administrative Assistant Required: No Accompanied by: Self Is patient [...] PFSH Medical History Atherosclerotic heart disease of [place] coronary artery without angina pectoris Branch retinal [...] is mil (more content not included)... Normal [facility] Progress Noteon 12-29-2024 Progress Note 12/29/24 Community Health Worker Patient active with: [facility] Daniel Chart review completed. Follow up Appointments NONE Called patient and identified role and reason for call. Patient stated that he is doing good, and his follow ups are now with [facility]. He denies any concerns at this time. We inquired about any shortness of breath or pain, he denies. He refers taking all his medication as prescribed and denies need for refills. We also encouraged patient to reach out in case of any concern. Normal [facility] Progress Noteon 12-04-2024 Progress Note 12/04/24 Community Health Worker Patient active with: [facility] Daniel Chart review completed. Follow up Appointments NONE Called patient and call was dropped, we did a second attempt and was unsuccessful. Unable to leave a voice message. Outreach scheduled Normal [facility] CNOVon 11-19-2024 CNOV Office Visit (PODIWS ) MARIE HUTSON ([id number]) 1950 M Date Time Provider Department 11/19/24 [...] (or decreased sensation in your feet) a material analyst should always cut your toenails. Be Careful [...] Go to your health care provider or material analyst to treat these conditions. Gomez Schwab 11/19/2024 [...] Objective: Patien (more content not included)... Normal [facility] CNOVon 11-13-2024 CNOV Office Visit (INTMWS ) MARIE HUTSON ([id number]) 1950 M Date Time Provider Department 11/13/24 1:20 PM SHER JULES INTMWS During your visit today, we recorded the following information about you: Pulse Respiration Blood pressure Weight 60/minute 16/minute 132/62 87 kg Sher Jules MD 11/13/2024 1:56 PM Signed This note was created using [employer]. Subjective Marie Hutson is a 74 year [...] Mixed Sleep Apnea Coronary Artery Disease Involving [place] Coronary Artery of [place] Heart Without Angina Pectoris Obesity, Class I, [...] MA - (more content not included)... Normal [facility] Progress Noteon 11-03-2024 Progress Note 11/03/24 [...] clarify? No (Patient receiving his care from [facility]) EMR reviewed. Patient on BPCI Advanced: OP Patients Qualify for Cardiac Care and Cardiac Procedures from [facility] report 10/01/2024. EMR reviewed. Patient enrolled in [facility] Cardiac 90-day BPCI Program post-hospital discharge 09/30/24 Dx: PCI with IVL, LISANDRO to Left Main->Ramus Right radial artery used. Patient has a past medical history of DM with neuropathy, HTN, HLD, family history of premature CAD, prior tobacco use (quit), ocular TIA. He had a CABG in 2012. In January 2024, he had a NSTEMI and went to recyclable products sorter. WRIGHT to LAD was patent. At that time distal RCA was stented. He also had a severely stenotic calcified distal left main and ostial ramus. 30-day BPCI outreach made spoke with patient whom reports doing well following with [facility] for his care and denies any health concerns or questions at this time. Patient agreeable to future outreaches to complete BPCI program. Normal [facility] CR - History AND Physicalon 10-20-2024 CR - History & Physical [facility] [address] [place] [address] CR - History Physical MR#: [id number] Acct: [id number] Name: MARIE HUTSON Rep #: [id number] : 1950 74 From: Curtis Newell BS, [...] Negative Advanced Directives Advanced Directives Power of Certified Pesticide Applicator: No Living Will: No Advance Directives Information [...] Essential (primary) hypertension Atherosclerotic heart disease of [place] coronary artery without angina pectoris Diabetes mellitus, [...] For S (more content not included)... Normal [facility] Progress Noteon 10-15-2024 Progress Note 10/15/24 [...] for Cardiac Care and Cardiac Procedures from [facility] report 10/01/2024. EMR reviewed. Patient enrolled in [facility] Cardiac 90-day BPCI Program post-hospital discharge 09/30/24 Dx: PCI with IVL, LISANDRO to Left Main->Ramus Right radial artery used. Patient has a past medical history of DM with neuropathy, HTN, HLD, family history of premature CAD, prior tobacco use (quit), ocular TIA. He had a CABG in 2012. In January 2024, he had a NSTEMI and went to recyclable products sorter. WRIGHT to LAD was patent. At that time distal RCA was stented. He also had a severely stenotic calcified distal left main and ostial ramus. 14-day BPCI outreach made spoke with patient introduced self and role patient reports doing well feeling good post PCI procedure denies health concerns or questions encouraged patient to reach out with any concerns. Future outreach scheduled. Carotid Duplex Ultrasoundon 10-14-2024 Carotid Duplex Ultrasound [facility] [address] [place] [address] Carotid Duplex Ultrasound 10/14/24 0951 MR#: [id number] Acct: [id number] Name: MARIE HUTSON Rep #: [id number] : 1950 74 From: Karl Wan MD Attending Dr: Dr. Rubio Simeon MD Status: REG CLI Ordering Dr: Rubio Simeon MD Date: 10/14/24 Location: [facility] Sex: M C Admitted: Reason For [...] the left vertebral artery. Procedure Carotid Duplex 65934. This is a Carotid Duplex examination using [...] Date Dictated: 10/14/24 0951 Date Transcribed: 10/15/24722 Bindery Production Manager: Signed Normal [facility] Renal Artery Duplex Ultrasou ndon 10-14-2024 [facility] [address] [place] [address] Renal Artery Duplex Ultrasound 10/14/24 0846 MR#: [id number] Acct: [id number] Name: MARIE HUTSON Rep #: [id number] : 1950 74 From: Karl Wan MD [...] Date Dictated: 10/14/24 0846 Date Transcribed: 10/15/2425 Bindery Production Manager: Signed Normal [facility] Cardiology Visit Reporton Cardiology Visit Report [facility] [address] [place] [address] OFFICE VISIT Date of Service: 10/12/24 MR#: [id number] Acct: [id number] Name: MARIE HUTSON Rep #: [id number] : 1950 Provider: TANIYA moise Age/Sex: 74/M Location: [facility] Status: Signed HPI HPI History of Present Illness Details: This gentleman with history of coronary artery disease status post CABG and status post drug-eluting stent to the distal RCA. He underwent coronary angiography CT scan in June 2024 that showed severely diseased distal left main disease. He was seen at [facility] with Dr. Collins for continual chest discomfort [...] Intake Visit Reasons: S/P [facility] 09/30 (SCANNED) Temporary Administrative Assistant Required: No Accompanied by: Self Is patient [...] a medication list, states nothing has changed [facility] Medical History CAD (coronary artery disease) Diabetes Dyslipidemia Hypertension Type 2 diabetes mellitus without complications Peripheral vascular disease, unspecified Essential (primary) hypertension Atherosclerotic heart disease of [place] coronary artery without angina pectoris Diabetes mellitus, [...] nighttime urinat (more content not included)... Normal [facility] Comprehensive Metabolic Prof ilon 10-12-2024 Albumin [Mass/Vol] 3.6 g/dL Normal 3.2-5.0 [facility] Comment on above: Order Comment: Low S odium Performed By: #### L 500.4050 ####[facility] [address] [place], [address] Albumin/Globulin [Mass ratio] 1.1 {ratio} Normal 0.9-2.4 [facility] Comment on above: Order Comment: Low S odium Performed By: #### L 500.4050 ####[facility] [address] [place], [address] ALK P 76 U/L Normal 45-117 [facility] Comment on above: Order Comment: Low S odium Performed By: #### L 500.4050 ####[facility] [address] [place], [address] ALT [Catalytic activity/Vol] 31 U/L Normal 16-61 [facility] Comment on above: Order Comment: Low S odium Performed By: #### L 500.4050 ####[facility] [address] [place], [address] AST [Catalytic activity/Vol] 23 U/L Normal 15-37 [facility] Comment on above: Order Comment: Low S odium Performed By: #### L 500.4050 ####[facility] [address] [place], [address] Bilirubin [Mass/Vol] 1.30 mg/dL High 0.20-1.00 [facility] Comment on above: Order Comment: Low S odium Result Comment: For patients on eltrombopag therapy, use of Dimension [place] TBIL is not recommended. Performed By: #### L 500.4050 ####[facility] [address] [place], [address] BUN/CRE 14.0 RATIO Normal 10-20 [facility] Comment on above: Order Comment: Low S odium Performed By: #### L 500.4050 ####[facility] [address] [place], [address] CA,Total 9.6 mg/dL Normal 8.5-10.1 [facility] Comment on above: Order Comment: Low S odium Performed By: #### L 500.4050 ####[facility] [address] [place], [address] Chloride [Moles/Vol] 95 mmol/L Low 98-107 [facility] Comment on above: Order Comment: Low S odium Performed By: #### L 500.4050 ####[facility] [address] [place], [address] CO2 [Moles/Vol] 29.0 mmol/L Normal 21.0-32.0 [facility] Comment on above: Order Comment: Low S odium Performed By: #### L 500.4050 ####[facility] [address] [place], [address] Creatinine [Mass/Vol] 0.72 mg/dL Normal 0.70-1.30 [facility] Comment on above: Order Comment: Low S odium Result Comment: The validity of the calculated GFR GFRAA in patients over 70 years has not been determined. Clinical correlation is essential. Performed By: #### L 500.4050 ####[facility] [address] [place], [address] EST GFR - AA 139 mL/min Normal >60 [facility] Comment on above: Order Comment: Low S odium Result Comment: Afri can [place] GFR Calc Performed By: #### L 500.4050 ####[facility] [address] [place], [address] GAP 4 Low 5-15 [facility] Comment on above: Order Comment: Low S odium Performed By: #### L 500.4050 ####[facility] [address] [place], [address] GFR/1.73 sq M.predicted among non-blacks MDRD (S/P/Bld) [Vol rate/Area] 115 mL/min/{1.73_m2} Normal >60 [facility] Comment on above: Order Comment: Low S odium Result Comment: Non- GFR Calc Performed By: #### L 500.4050 ####[facility] [address] [place], [address] Globulin (S) [Mass/Vol] 3.3 g/dL Normal 2.2-4.2 [facility] Comment on above: Order Comment: Low S odium Performed By: #### L 500.4050 ####[facility] [address] [place], [address] Glucose [Mass/Vol] 144 mg/dL High 74-106 [facility] Comment on above: Order Comment: Low S odium Result Comment: Fast ing Glucose result greater than or equal to 126 mg/dL suggests DIABETES MELLITUS per A.D.A. criteria. Performed By: #### L 500.4050 ####[facility] [address] [place], [address] Potassium [Moles/Vol] 4.7 mmol/L Normal 3.5-5.1 [facility] Comment on above: Order Comment: Low S odium Performed By: #### L 500.4050 ####[facility] [address] [place], [address] Sodium [Moles/Vol] 128 mmol/L Low 136-145 [facility] Comment on above: Order Comment: Low S odium Performed By: #### L 500.4050 ####[facility] [address] [place], [address] T PROT 6.9 g/dL Normal 6.4-8.2 [facility] Comment on above: Order Comment: Low S odium Performed By: #### L 500.4050 ####[facility] [address] [place], [address] Urea nitrogen [Mass/Vol] 10 mg/dL Normal 7-18 [facility] Comment on above: Order Comment: Low S odium Performed By: #### L 500.4050 ####[facility] [address] [place], [address] Basic metabolic 2000 panelon 10-06-2024 Anion gap [Moles/Vol] 10 mmol/L Normal 8-15 [facility] Comment on above: Order Comment: Speci men Type: BLOOD SPECIMENOrdering Facility: [facility] Address: [address] [place] [address] Performed By: #### 2 132-9, 90386-7, 2885-2, 2143-6 ####[facility] [facility] [id number] [facility] [place] [address] [place] Calcium [Mass/Vol] 9.4 mg/dL Normal 8.5-10.2 [facility] Comment on above: Order Comment: Speci men Type: BLOOD SPECIMENOrdering Facility: [facility] Address: [address] [place] [address] Performed By: #### 2 132-9, 30376-0, 288-2, 2143-03 ####[facility] LABCLIA [id number] [place] [address] [place] Chloride [Moles/Vol] 94 mmol/L Low 98-107 [facility] Comment on above: Order Comment: Speci men Type: BLOOD SPECIMENOrdering Facility: [facility] Address: [address] [place] [address] Performed By: #### 2 132-9, 12896-9, 2884-2, 2143-03 ####[facility] LABCLIA [id number] [place] [address] [place] CO2 [Moles/Vol] 27 mmol/L Normal 22-30 [facility] Comment on above: Order Comment: Speci men Type: BLOOD SPECIMENOrdering Facility: [facility] Address: [address] [place] [address] Performed By: #### 2 132-9, 86181-5, 2884-2, 2143-03 ####[facility] LABCLIA [id number] [place] [id number] [place] Creatinine [Mass/Vol] 0.61 mg/dL Low 0.73-1.22 [facility] Comment on above: Order Comment: Speci men Type: BLOOD SPECIMENOrdering Facility: [facility] Address: [address] [place] [address] Performed By: #### 2 132-9, 95356-3, 288-2, 2143-03 ####[facility] LABCLIA [id number] [address] [address] [place] Creatinine and Glomerular filtration rate.predicted panel (S/P/Bld) 102 mL/min/1.73m??? Normal >=60 [facility] Comment on above: Order Comment: Mariza gomes Type: BLOOD SPECIMENOrdering Facility: [facility] Address: [address] [place] [address] Result Comment: Ingrid mated Glomerular Filtration Rate [...] actual GFR. Performed By: #### 2 132-9, 01502-1, 5-2, 2143-03 ####[facility] LABCLIA [id number] [place] [address] [place] Glucose [Mass/Vol] 83 mg/dL Normal 74-99 [facility] Comment on above: Order Comment: Mariza gomes Type: BLOOD SPECIMENOrdering Facility: [facility] Address: [address] [place] [address] Result Comment: The [place] Diabetes Association (ADA) provides guidance for cutoff [...] Standards of Medical Care in Diabetes 2016, [place] [employer] Association. Diabetes Care. 2016.39(Suppl 1). Performed By: #### 2 132-9, 84098-2, 2885-2, 6 ####[facility] LABCLIA [id number] [address] [address] [place] Potassium [Moles/Vol] 5.3 mmol/L High 3.7-5.1 [facility] Comment on above: Order Comment: Speci men Type: BLOOD SPECIMENOrdering Facility: [facility] Address: [address] [place] [address] Performed By: #### 2 132-9, 99008-1, 2885-2, 3-6 ####[facility] LABCLIA [id number] [place] [address] [place] Sodium [Moles/Vol] 131 mmol/L Low 136-144 [facility] Comment on above: Order Comment: Speci men Type: BLOOD SPECIMENOrdering Facility: [facility] Address: [address] [place] [address] Performed By: #### 2 132-9, 77088-6, 2885-2, 2142-6 ####[facility] LABCLIA [id number] [place] [address] [place] Urea nitrogen [Mass/Vol] 7 mg/dL Low 9-24 [facility] Comment on above: Order Comment: Speci men Type: BLOOD SPECIMENOrdering Facility: [facility] Address: [address] [place] [address] Performed By: #### 2 132-9, 61548-1, 2885-2, 6 ####[facility] LABCLIA [id number] [place] [id number] [place] CBC panel Auto (Bld)on 10-06 Erythrocyte distribution width (RBC) [Ratio] 11.5 % Normal 11.5-15.0 [facility] Comment on above: Order Comment: Speci men Type: BLOOD SPECIMENOrdering Facility: [facility] Address: [address] [place] [address] Performed By: #### 5 8410-2 ####[facility] LABCLIA [id number] [place] [address] [place] Hematocrit (Bld) [Volume fraction] 30.4 % Low 39.0-51.0 [facility] Comment on above: Order Comment: Speci men Type: BLOOD SPECIMENOrdering Facility: [facility] Address: [address] [place] [address] Performed By: #### 5 8410-2 ####[facility] LABIA [id number] [place] [address] [place] Hemoglobin (Bld) [Mass/Vol] 10.7 g/dL Low 13.0-17.0 [facility] Comment on above: Order Comment: Speci men Type: BLOOD SPECIMENOrdering Facility: [facility] Address: [address] [place] [address] Performed By: #### 5 8410-2 ####[facility] LABIA [id number] [place] [address] [place] MCH (RBC) [Entitic mass] 34.9 pg High 26.0-34.0 [facility] Comment on above: Order Comment: Speci men Type: BLOOD SPECIMENOrdering Facility: [facility] Address: [address] [place] [address] Performed By: #### 5 8410-2 ####[facility] LABIA [id number] [place] [address] [place] MCHC (RBC) [Mass/Vol] 35.2 g/dL Normal 30.5-36.0 [facility] Comment on above: Order Comment: Speci men Type: BLOOD SPECIMENOrdering Facility: [facility] Address: [address] [place] [address] Performed By: #### 5 8410-2 ####[facility] LABIA [id number] [place] [address] [place] MCV (RBC) [Entitic vol] 99.0 fL Normal 80.0-100.0 [facility] Comment on above: Order Comment: Speci men Type: BLOOD SPECIMENOrdering Facility: [facility] Address: [address] [place] [address] Performed By: #### 5 8410-2 ####[facility] LABCLIA [id number] [place] [address] [place] Nucleated RBC (Bld) [#/Vol] 10*3/uL Normal <0.01 [facility] Comment on above: Order Comment: Speci men Type: BLOOD SPECIMENOrdering Facility: [facility] Address: [address] [place] [address] Performed By: #### 5 8410-2 ####[facility] LABIA [id number] [place] [address] [place] Platelet mean volume (Bld) [Entitic vol] 9.5 fL Normal 9.0-12.7 [facility] Comment on above: Order Comment: Speci men Type: BLOOD SPECIMENOrdering Facility: [facility] Address: [address] [place] [address] Performed By: #### 5 8410-2 ####[facility] LABIA [id number] [place] [address] [place] Platelets (Bld) [#/Vol] 236 10*3/uL Normal 150-400 [facility] Comment on above: Order Comment: Speci men Type: BLOOD SPECIMENOrdering Facility: [facility] Address: [address] [place] [address] Performed By: #### 5 8410-2 ####[facility] LABIA [id number] [place] [address] [place] RBC (Bld) [#/Vol] 3.07 10*6/uL Low 4.20-6.[address] [facility] Comment on above: Order Comment: Speci men Type: BLOOD SPECIMENOrdering Facility: [facility] Address: [address] [place] [address] Performed By: #### 5 8410-2 ####[facility] LABIA [id number] [place] [address] [place] WBC (Bld) [#/Vol] 5.07 10*3/uL Normal 3.70-11.[address] [facility] Comment on above: Order Comment: Speci men Type: BLOOD SPECIMENOrdering Facility: [facility] Address: [address] [place] [address] Performed By: #### 5 8410-2 ####[facility] LABCLIA [id number] [place] [address] [place] Cortis SerPl-mCncon 10-06-20 Cortisol [Mass/Vol] 10.3 ug/dL Normal 4.8-19.[address] [facility] Comment on above: Order Comment: Speci men Type: BLOOD SPECIMENOrdering Facility: [facility] Address: [address] [place] [address] Result Comment: Prov ided reference range is from 6-10 AM sample collection time. Cortisol Reference Range: 6-10 AM = 4.8-19.5 ug/dL, 4-8 PM = 2.5-11.9 ug/dL Performed By: #### 2 132-9, 63181-7, 2885-2, 2143-6 ####[facility] LABCLIA [id number] [place] [address] [place] Osmolality SerPlon Osmolality [Osmolality] 268 mosm/kg Low 275-300 [facility] Comment on above: Order Comment: Speci men Type: BLOOD SPECIMEN [facility] Address: [address] [place] [address] Performed By: #### 5 8410-2 #### [facility] CLIA [id number] [address] [place] [address] [place] Osmolality Uron 10-06-2024 Osmolality (U) [Osmolality] 161 mosm/kg Normal 50-1200 [facility] Comment on above: Order Comment: Speci men Type: URINE SPECIMENOrdering Facility: [facility] Address: [address] [place] [address] Performed By: #### 2 695-5 ####[facility] LABCLIA [id number] [place] [address] [place] PROTEIN ELECTROPHORESIS SERU M (P)on 10-06-2024 Albumin [Mass/Vol] 3.78 g/dL Normal 3.43-5.41 [facility] Comment on above: Order Comment: Speci men Type: BLOOD SPECIMENOrdering Facility: [facility] Address: [address] [place] [address] Performed By: #### L [id number] ####[facility] LABCLIA [id number] [place] [address] [place] Alpha 1 globulin Elph [Mass/Vol] 0.28 g/dL Normal 0.18-0.43 [facility] Comment on above: Order Comment: Speci men Type: BLOOD SPECIMENOrdering Facility: [facility] Address: [address] [place] [address] Performed By: #### L [id number] ####[facility] LABCLIA [id number] [place] [address] [place] Alpha 2 globulin Elph [Mass/Vol] 0.58 g/dL Normal 0.42-0.98 [facility] Comment on above: Order Comment: Speci men Type: BLOOD SPECIMENOrdering Facility: [facility] Address: [address] [place] [address] Performed By: #### L [id number] ####[facility] LABCLIA [id number] [place] [address] [place] Beta globulin Elph [Mass/Vol] 0.61 g/dL Normal 0.61-1.17 [facility] Comment on above: Order Comment: Speci men Type: BLOOD SPECIMENOrdering Facility: [facility] Address: [address] [place] [address] Performed By: #### L [id number] ####[facility] LABCLIA [id number] [place] [address] [place] Gamma globulin Elph [Mass/Vol] 0.54 g/dL Normal 0.53-1.51 [facility] Comment on above: Order Comment: Speci men Type: BLOOD SPECIMENOrdering Facility: [facility] Address: [address] [place] [address] Performed By: #### L [id number] ####[facility] LABIA [id number] [place] [address] [place] M-PROTEIN LOCATION Normal [facility] Comment on above: Order Comment: Speci men Type: BLOOD SPECIMENOrdering Facility: [facility] Address: [address] [place] [address] Result Comment: Not Applicable. Performed By: #### L [id number] ####[facility] LABIA [id number] [place] [address] [place] Protein Fractions [Interp] No definitive M protein is identified on protein electrophoresis. Normal No definitive M protein is identified on protein electrophores is. [facility] Comment on above: Order Comment: Speci men Type: BLOOD SPECIMENOrdering Facility: [facility] Address: [address] [place] [address] Performed By: #### L [id number] ####[facility] LABIA [id number] [place] [address] [place] Protein.monoclonal Elph [Mass/Vol] 0.00 g/dL Normal <=0.00 [facility] Comment on above: Order Comment: Speci men Type: BLOOD SPECIMENOrdering Facility: [facility] Address: [address] [place] [address] Performed By: #### L [id number] ####[facility] LABCLIA [id number] [place] [address] [place] SPE STAFF REVIEW Reviewed by Chante Ag MD [facility] Comment on above: Order Comment: Speci men Type: BLOOD SPECIMENOrdering Facility: [facility] Address: [address] [place], [place] [address] Performed By: #### L [id number] ####[facility] LABCLIA [id number] [address] [address] [place] Prot [facility] 10-06-2024 Protein [Mass/Vol] 5.8 g/dL Low 6.3-8.0 [facility] Comment on above: Order Comment: Speci men Type: BLOOD SPECIMENOrdering Facility: [facility] Address: [address] [place] [address] Performed By: #### 2 132-9, 90617-2, 2495-2, 2142-6 ####[facility] LABIA [id number] [place] [id number] [place] Sodium ?Tm Ur-sCncon 024 Sodium Unsp time (U) [Moles/Vol] 28 mmol/L Normal 14-216 [facility] Comment on above: Order Comment: Speci men Type: URINE SPECIMENOrdering Facility: [facility] Address: [address] [place] [address] Performed By: #### 3 5678-2 ####[facility] LABIA [id number] [address] [address] [place] Vit B12 SerPl-ncon 024 Cobalamin (Vitamin B12) [Mass/Vol] 509 pg/mL Normal 232-1245 [facility] Comment on above: Order Comment: Speci men Type: BLOOD SPECIMENOrdering Facility: [facility] Address: [address] [place] [address] Performed By: #### 2 132-9, 68823-8, 2885-2, 2142-6 ####[facility] LABIA [id number] [place] [id number] [place] ECG 12-LEADon 10-01-2024 ECG 12-LEAD IMPRESSION: Sinus bradycardia Prolonged RI interval Borderline ST elevation, anterior leads Electronically Signed On 10-01-2024 15:11:59 EST by Basil Cordoba Anesthesia Noteon 09-30-2024 Anesthesia Note Sedation Plan [...] to administer sedation as planned. Normal [facility] Cardiac catheterization stud yon 09-30-2024 History: [...] -PCI of the ramus intermedius: A 6 Luxembourgish EBU 3.5 guide catheter was used, with [...] modification. Follow up with Dr. Simeon in [place] Referral to cardiac rehab Coronary Findings Diagnostic [...] sec. Supplies Used: CATH NC TREK DRE 3.05L83OZ Angioplasty (Also treats lesions: Dist LM): Angioplasty using a standard balloon was performed following stent deployment. Balloon inserted and unable to cross lesion. Balloon was not inflated. Supplies Used: CATH NC TREK DRE 3.71I66UE Angioplasty (Also treats lesions: Dist LM): Angioplasty using a standard balloon was performed prior to stent deployment. Balloon inserted, inflated, placed across lesion and removed. Balloon inflated using single inflation technique. Balloon 1: Inflation#1: Pressure = 12 thony; Duration = 10 sec. Supplies Used: CATH NC TREK DRE 2.45L49HJ Intravascular Lithotripsy (Also treats lesions: Dist LM): IVL cycles: 60 Supplies Used: CATH SHOCKWAVE C2+ IVL 3.5X12 Stent (Also treats lesions: Dist LM): Type of stent: drug-eluting. The stent used was a STENT COR SKYPOINT 3.80I16HL. Actions taken: stent inserted, stent placed across [...] inflated. Supplies Used: CATH NC TREK DRE 3.52Z90JE Angioplasty: Angioplasty using a standard balloon was performed prior to stent deployment. Balloon inserted, unable to (more content not included)... CV CPACS HEMO [facility] Laboratory - Chemistry and C hemistry - challengeon 09-30-2024 Potassium [Moles/Vol] 4.2 mmol/L 3.5 - 5.1 mmol/L [facility] Comment on above: Plasma potassium matt ues may be up to 0.5 mmol/L lower than serum values. No Panel Informationon 09-30 Interpretation and review of laboratory results Abnormal [facility] Metabolomx POCT ACT 264 High [facility] Metabolomx POCT ACT 362 High [facility] Performed by: [facility], [address] [place] [address] CLIA ID: [id number] [facility] POTASSIUMon 09-30-2024 Potassium [Moles/Vol] 4.2 mmol/L Normal 3.5-5.1 [facility] Comment on above: Result Comment: [facility] potassium values may be up to 0.5 mmol/L lower than serum values. Performed By: #### L [id number] #### Medical Insurance Claims Processor: MYCHAL HLELER ([id number]) [facility] ([facility]) [address] [place] [address] Potassium [Moles/Vol]on Interpretation and review of laboratory results Normal [facility] 36on 09-29-2024 36 Prep for proc completed. Normal [facility] Basic Metabolic Profile (BMP )on 09-28-2024 BUN/CRE 21.4 RATIO High 10-20 [facility] Comment on above: Performed By: #### L 300.3900, L100.0500, L500.2500 ####[facility] [address] [place], [address] CA,Total 9.3 mg/dL Normal 8.5-10.1 [facility] Comment on above: Performed By: #### L 300.3900, L100.0500, L500.2500 ####[facility] [address] [place], [address] Chloride [Moles/Vol] 86 mmol/L Low 98-107 [facility] Comment on above: Performed By: #### L 300.3900, L100.0500, L500.2500 ####[facility] [address] [place], [address] CO2 [Moles/Vol] 27.0 mmol/L Normal 21.0-32.0 [facility] Comment on above: Performed By: #### L 300.3900, L100.0500, L500.2500 ####[facility] [address] [place], [address] Creatinine [Mass/Vol] 0.70 mg/dL Normal 0.70-1.30 [facility] Comment on above: Result Comment: The validity of the calculated GFR GFRAA in patients over 70 years has not been determined. Clinical correlation is essential. Performed By: #### L 300.3900, L100.0500, L500.2500 ####[facility] [address] [place], [address] EST GFR - AA 142 mL/min Normal >60 [facility] Comment on above: Result Comment: Afri can Niuean GFR Calc Performed By: #### L 300.3900, L100.0500, L500.2500 ####[facility] [address] [place], [address] GAP 7 Normal 5-15 [facility] Comment on above: Performed By: #### L 300.3900, L100.0500, L500.2500 ####[facility] [address] [place], [address] GFR/1.73 sq M.predicted among non-blacks MDRD (S/P/Bld) [Vol rate/Area] 118 mL/min/{1.73_m2} Normal >60 [facility] Comment on above: Result Comment: Non- GFR Calc Performed By: #### L 300.3900, L100.0500, L500.2500 ####[facility] [address] [place], [address] Glucose [Mass/Vol] 109 mg/dL High 74-106 [facility] Comment on above: Result Comment: Fast ing Glucose result from 100 to 125 mg/dL suggests IMPAIRED HOMEOSTASIS per A.D.A. criteria. Performed By: #### L 300.3900, L100.0500, L500.2500 ####[facility] [address] [place], [address] Potassium [Moles/Vol] 4.8 mmol/L Normal 3.5-5.1 [facility] Comment on above: Performed By: #### L 300.3900, L100.0500, L500.2500 ####[facility] [address] [place], [address] Sodium [Moles/Vol] 120 mmol/L Low 136-145 [facility] Comment on above: Performed By: #### L 300.3900, L100.0500, L500.2500 ####[facility] [address], [address] Urea nitrogen [Mass/Vol] 15 mg/dL Normal 7-18 [facility] Comment on above: Performed By: #### L 300.3900, L100.0500, L500.2500 ####[facility] [address] [place], [address] CBC-Complete Blood Cnt No Di ffon 09-28-2024 Erythrocyte distribution width (RBC) [Ratio] 11.5 % Low 11.6-14.6 [facility] Comment on above: Performed By: #### L 300.3900, L100.0500, L500.2500 #### [facility] [address] [place], [address] Hematocrit (Bld) [Volume fraction] 33.4 % Low 40-54 [facility] Comment on above: Performed By: #### L 300.3900, L100.0500, L500.2500 #### [facility] [address] [place], [address] Hemoglobin (Bld) [Mass/Vol] 12.0 g/dL Low 13.0-16.5 [facility] Comment on above: Performed By: #### L 300.3900, L100.0500, L500.2500 #### [facility] [address] [place], [address] MCH (RBC) [Entitic mass] 33.9 pg High 27.0-32.0 [facility] Comment on above: Performed By: #### L 300.3900, L100.0500, L500.2500 #### [facility] [address] [place], [address] MCHC (RBC) [Mass/Vol] 35.9 g/dL Normal 32-36 [facility] Comment on above: Performed By: #### L 300.3900, L100.0500, L500.2500 #### [facility] [address] [place], [address] MCV (RBC) [Entitic vol] 94.4 fL High 80-94 [facility] Comment on above: Performed By: #### L 300.3900, L100.0500, L500.2500 #### [facility] [address] [place], [address] Platelet mean volume (Bld) [Entitic vol] 9.4 fL Normal 6.2-12.0 [facility] Comment on above: Performed By: #### L 300.3900, L100.0500, L500.2500 #### [facility] [address] [place], [address] Platelets (Bld) [#/Vol] 216 10*3/uL Normal 150-450 [facility] Comment on above: Performed By: #### L 300.3900, L100.0500, L500.2500 #### [facility] [address] [place], [address] RBC (Bld) [#/Vol] 3.54 10*6/uL Low 4.6-6.2 [facility] Comment on above: Performed By: #### L 300.3900, L100.0500, L500.2500 #### [facility] [address] [place], [address] RDW SD 39.6 fl Normal 35.1-43.9 [facility] Comment on above: Performed By: #### L 300.3900, L100.0500, L500.2500 #### [facility] [address] [place], [address] WBC (Bld) [#/Vol] 6.6 10*3/uL Normal 4.4-11.0 [facility] Comment on above: Performed By: #### L 300.3900, L100.0500, L500.2500 #### [facility] [address] [place], [address] Prothrombin Time w/INRon INR Coag (PPP) [Relative time] 1.0 {INR} Normal [facility] Comment on above: Performed By: #### L 300.3900, L100.0500, L500.2500 ####[facility] [address] [place], [address] PT Coag (PPP) [Time] 13.2 s Normal 11.7-14.9 [facility] Comment on above: Performed By: #### L 300.3900, L100.0500, L500.2500 ####[facility] [address] [place], [address] 36on 09-17-2024 36 CATH scheduled Normal [facility] 36on 09-16-2024 36 [facility] Cardiology [address] [place] [address] DEPT: [phone] DEPT You are scheduled for LHC with on 09/30/24 at 11am Report to 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 Pt verbalized understanding. Normal [facility] 36 No auth needed for L HC w/Grafts CPT 25568 per Traditional Medicare and [employer] Medicare Supplement Guidelines. Normal [facility] No Panel Informationon 09-16 Marked sinus Bradycardia -First degree A-V block Early transition Janina = 249 BORDERLINE RHYTHM [facility] Office Visiton 09-16-2024 Follow-up visit [id number] Aditya Hutson 1950 M Date Provider Department Center 09/16/2024 SERGEI OSULLIVAN [facility] [address] Family History Problem Relation Age of Onset No Known Problems Mother Heart attack Father Family Status - Relation Status Age at Mother Father Level of Service:36770 [place] OFFICE/OUTPATIENT NEW MODERATE MDM 45 MINUTES Reason for Visit and Comments: New Patient [542] Normal [facility] Progress Noteon 09-16-2024 Progress Note [facility] Cardiovascular Medicine [facility] [address] [facility] [address] Dept: [phone] Dept Loc: [phone] DATE of SERVICE: 09/16/24 TIME of SERVICE: [...] He is followed by Dr. Simeon at [facility]. He had an NSTEMI in January 2024. [...] BUN, CREATINI (more content not included)... 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 Patient is not taking hydrochlorothiazide 25 mg daily and Atorvastatin 40 mg daily (patient was previously on 80 mg). Suellen Donovan RN Allergies As of Date: 09/15/2024 (No Known Allergies) Date Reviewed: 09/11/2024 Reviewed by: Martha Ram LPN - Fully Assessed Reason for Visit: Medication Update [8359] Order(s):atorvastatin (LIPITOR) 40 mg tabletTake 1 tablet [...] disease involvin (more content not included)... Normal [facility] 09-14-2024 [facility] Telephone (INTMWS) MARIE HUTSON ([id number]) 1950 M Date Time Provider Department 09/14/24 [...] to receive the providers message. Also sent Arctrievalhart Suellen Case RN 09/15/2024 10:42 AM Signed [...] [G47.30] 09/15/20 (more content not included)... Normal [facility] Cardiology Visit Reporton Cardiology Visit Report [facility] [address] [place] [address] OFFICE VISIT Date of Service: 09/14/24 MR#: [id number] Acct: [id number] Name: MARIE HUTSON Rep #: [id number] : 1950 Provider: Dr. Rubio Simeon MD Age/Sex: 74/M Location: 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 Normal [facility] ALBUMIN/CREATININE RATIO, UR INEon 09-11-2024 Albumin DL <= 20 mg/L (U) [Mass/Vol] 15.0 mg/L Normal [facility] Comment on above: Order Comment: Speci men Type: URINE SPECIMENOrdering Facility: [facility] Address: [address] [place] [address] Performed By: #### U ACR ####[facility] LABCLIA [id number] [place] [address] [place] Albumin/Creatinine (U) [Mass ratio] 42 mg/g High <30 [facility] Comment on above: Order Comment: Speci men Type: URINE SPECIMENOrdering Facility: [facility] Address: [address] [place] [address] Result Comment: Adul t Male and Female Nephrotic Criteria: <30 mg/g is considered normal to mildly increased 30-300 mg/g is considered moderately increased >300 mg/g is considered severely increased KDIGO. (2013). KDIGO 2012 Clinical Practice Guideline for the Evaluation and Management of Chronic Kidney Disease. Official Journal of the International Society of Nephrology, 3(1), 1-150. Performed By: #### U ACR ####[facility] LABCLIA [id number] [place] [address] [place] Creatinine (U) [Mass/Vol] 35.7 mg/dL Normal 20.0-300.0 [facility] Comment on above: Order Comment: Speci men Type: URINE SPECIMENOrdering Facility: [facility] Address: [address] [place] [address] Performed By: #### U ACR ####[facility] LABIA [id number] [place] [address] [place] CBC panel Auto (Bld)on 09-11 Erythrocyte distribution width (RBC) [Ratio] 11.9 % Normal 11.5-15.0 [facility] Comment on above: Order Comment: Speci men Type: BLOOD SPECIMENOrdering Facility: [facility] Address: [address] [place] [address] Performed By: #### 5 8410-2 ####[facility] [id number] [place] [address] [place] Hematocrit (Bld) [Volume fraction] 34.4 % Low 39.0-51.0 [facility] Comment on above: Order Comment: Speci men Type: BLOOD SPECIMENOrdering Facility: [facility] Address: [address] [place] [address] Performed By: #### 5 8410-2 ####[facility] LABIA [id number] [place] [address] [place] Hemoglobin (Bld) [Mass/Vol] 12.5 g/dL Low 13.0-17.0 [facility] Comment on above: Order Comment: Speci men Type: BLOOD SPECIMENOrdering Facility: [facility] Address: [address] [place] [address] Performed By: #### 5 8410-2 ####[facility] LABIA [id number] [place] [address] [place] MCH (RBC) [Entitic mass] 36.3 pg High 26.0-34.0 [facility] Comment on above: Order Comment: Speci men Type: BLOOD SPECIMENOrdering Facility: [facility] Address: [address] [place] [address] Performed By: #### 5 8410-2 ####[facility] LABCLIA [id number] [place] [address] [place] MCHC (RBC) [Mass/Vol] 36.3 g/dL High 30.5-36.0 [facility] Comment on above: Order Comment: Speci men Type: BLOOD SPECIMENOrdering Facility: [facility] Address: [address] [place] [address] Performed By: #### 5 8410-2 ####[facility] LABIA [id number] [place] [address] [place] MCV (RBC) [Entitic vol] 100.0 fL Normal 80.0-100.0 [facility] Comment on above: Order Comment: Speci men Type: BLOOD SPECIMENOrdering Facility: [facility] Address: [address] [place] [address] Performed By: #### 5 8410-2 ####[facility] LABIA [id number] [place] [address] [place] Nucleated RBC (Bld) [#/Vol] 10*3/uL Normal <0.01 [facility] Comment on above: Order Comment: Speci men Type: BLOOD SPECIMENOrdering Facility: [facility] Address: [address] [place] [address] Performed By: #### 5 8410-2 ####[facility] LABIA [id number] [place] [address] [place] Platelet mean volume (Bld) [Entitic vol] 9.6 fL Normal 9.0-12.7 [facility] Comment on above: Order Comment: Speci men Type: BLOOD SPECIMENOrdering Facility: [facility] Address: [address] [place] [address] Performed By: #### 5 8410-2 ####[facility] LABIA [id number] [place] [address] [place] Platelets (Bld) [#/Vol] 219 10*3/uL Normal 150-400 [facility] Comment on above: Order Comment: Speci men Type: BLOOD SPECIMENOrdering Facility: [facility] Address: [address] [place] [address] Performed By: #### 5 8410-2 ####[facility] LABIA [id number] [place] [address] [place] RBC (Bld) [#/Vol] 3.44 10*6/uL Low 4.20-6.[address] [facility] Comment on above: Order Comment: Speci men Type: BLOOD SPECIMENOrdering Facility: [facility] Address: [address] [place] [address] Performed By: #### 5 8410-2 ####[facility] LABIA [id number] [place] [address] [place] WBC (Bld) [#/Vol] 5.93 10*3/uL Normal 3.70-11.[address] [facility] Comment on above: Order Comment: Speci men Type: BLOOD SPECIMENOrdering Facility: [facility] Address: [address] [place] [address] Performed By: #### 5 8410-2 ####[facility] LABIA [id number] [address] [place] CNOVon 09-11-2024 CNOV Office Visit (INTMWS ) MARIE HUTSON ([id number]) 1950 M Date Time Provider Department 09/11/24 11:00 AM SHER JULES INTAvWS During your visit today, we recorded the following information about you: Temperature Pulse Blood pressure Weight 97.2 degrees 46/minute 149/68 87.9 kg Height 1.778 m Sher Jules MD 09/11/2024 12:11 PM Signed This note was created using Kofikaferiter. Subjective Patient presents with: 6 Month Exam [...] Mixed Sleep Apnea Coronary Artery Disease Involving [place] Coronary Artery of [place] Heart Without Angina Pectoris Obesity, Class I, [...] Plan ASSESSMENT/PLAN: 1. Coronary artery disease involving [place] coronary artery of [place] heart without angina pectoris - ICD9: 414.01, ICD10: I25.10 (primary diagnosis) Stable. 2. Stented coronary artery - ICD9: V45.82, ICD10: Z95.5 Colonoscopy deferred till January 2025. 3. 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 - COMPLETE B (more content not included)... Normal [facility] Comprehensive metabolic 2000 panelon 09-11-2024 Albumin [Mass/Vol] 4.2 g/dL Normal 3.9-4.9 [facility] Comment on above: Order Comment: Speci men Type: BLOOD SPECIMENOrdering Facility: [facility] Address: [address] [place] [address] Performed By: #### 2 4323-8, LIPNF ####[facility] LABCLIA [id number] [place] [address] [place] ALP [Catalytic activity/Vol] 91 U/L Normal 38-113 [facility] Comment on above: Order Comment: Speci men Type: BLOOD SPECIMENOrdering Facility: [facility] Address: [address] [place] [address] Performed By: #### 2 4323-8, LIPNF ####[facility] LABCLIA [id number] [place] [address] [place] ALT [Catalytic activity/Vol] 18 U/L Normal 10-54 [facility] Comment on above: Order Comment: Speci men Type: BLOOD SPECIMENOrdering Facility: [facility] Address: [address] [place] [address] Performed By: #### 2 4323-8, LIPNF ####[facility] LABCLIA [id number] [place] [address] [place] Anion gap [Moles/Vol] 8 mmol/L Normal 8-15 [facility] Comment on above: Order Comment: Speci men Type: BLOOD SPECIMENOrdering Facility: [facility] Address: [address] [place] [address] Performed By: #### 2 4323-8, LIPNF ####[facility] LABCLIA [id number] [place] [address] [place] AST [Catalytic activity/Vol] 27 U/L Normal 14-40 [facility] Comment on above: Order Comment: Speci men Type: BLOOD SPECIMENOrdering Facility: [facility] Address: [address] [place] [address] Performed By: #### 2 4323-8, LIPNF ####[facility] LABCLIA [id number] [place] [address] [place] Bilirubin [Mass/Vol] 1.0 mg/dL Normal 0.2-1.3 [facility] Comment on above: Order Comment: Speci men Type: BLOOD SPECIMENOrdering Facility: [facility] Address: [address] [place] [address] Performed By: #### 2 4323-8, LIPNF ####[facility] LABCLIA [id number] [place] [address] [place] Calcium [Mass/Vol] 9.6 mg/dL Normal 8.5-10.2 [facility] Comment on above: Order Comment: Speci men Type: BLOOD SPECIMENOrdering Facility: [facility] Address: [address] [place] [address] Performed By: #### 2 4323-8, LIPNF ####[facility] LABCLIA [id number] [place] [address] [place] Chloride [Moles/Vol] 91 mmol/L Low 98-107 [facility] Comment on above: Order Comment: Speci men Type: BLOOD SPECIMENOrdering Facility: [facility] Address: [address] [place], [place] [address] Performed By: #### 2 4323-8, LIPNF ####[facility] LABCLIA [id number] [place] [address] [place] CO2 [Moles/Vol] 26 mmol/L Normal 22-30 [facility] Comment on above: Order Comment: Speci men Type: BLOOD SPECIMENOrdering Facility: [facility] Address: [address] [place] [address] Performed By: #### 2 4323-8, LIPNF ####[facility] LABCLIA [id number] [place] [address] [place] Creatinine [Mass/Vol] 0.59 mg/dL Low 0.73-1.22 [facility] Comment on above: Order Comment: Speci men Type: BLOOD SPECIMENOrdering Facility: [facility] Address: [address] [place] [address] Performed By: #### 2 4323-8, LIPNF ####[facility] LABCLIA [id number] [place] [address] [place] Creatinine and Glomerular filtration rate.predicted panel (S/P/Bld) 103 mL/min/1.73m??? Normal >=60 [facility] Comment on above: Order Comment: Speci men Type: BLOOD SPECIMENOrdering Facility: [facility] Address: [address] [place] [address] Result Comment: Ingrid mated Glomerular Filtration Rate [...] GFR. Performed By: #### 2 4323-8, LIPNF ####[facility] LABCLIA [id number] [place] [address] [place] Glucose [Mass/Vol] 106 mg/dL High 74-99 [facility] Comment on above: Order Comment: Speci men Type: BLOOD SPECIMENOrdering Facility: [facility] Address: [address] [place] [address] Result Comment: The [place] Diabetes Association (ADA) provides guidance for cutoff [...] Standards of Medical Care in Diabetes 2016, [place] Diabetes Association. Diabetes Care. 2016.39(Suppl 1). Performed By: #### 2 4323-8, LIPNF ####[facility] LABCLIA [id number] [place] [address] [place] Potassium [Moles/Vol] 5.4 mmol/L High 3.7-5.1 [facility] Comment on above: Order Comment: Speci men Type: BLOOD SPECIMENOrdering Facility: [facility] Address: [address] [place] [address] Performed By: #### 2 4323-8, LIPNF ####[facility] LABIA [id number] [place] [address] [place] Protein [Mass/Vol] 6.5 g/dL Normal 6.3-8.0 [facility] Comment on above: Order Comment: Speci men Type: BLOOD SPECIMENOrdering Facility: [facility] Address: [address] [place] [address] Performed By: #### 2 4323-8, LIPNF ####[facility] LABCLIA [id number] [place] [address] [place] Sodium [Moles/Vol] 125 mmol/L Low 136-144 [facility] Comment on above: Order Comment: Speci men Type: BLOOD SPECIMENOrdering Facility: [facility] Address: [address] [place] [address] Performed By: #### 2 4323-8, LIPNF ####[facility] LABCLIA [id number] [place] [address] [place] Urea nitrogen [Mass/Vol] 10 mg/dL Normal 9-24 [facility] Comment on above: Order Comment: Speci men Type: BLOOD SPECIMENOrdering Facility: [facility] Address: [address] [place] [address] Performed By: #### 2 4323-8, LIPNF ####[facility] LABCLIA [id number] [place] [address] [place] HbA1c (Bld)on 09-11-2024 Average glucose Estimated from glycated hemoglobin (Bld) [Mass/Vol] 114 mg/dL Normal [facility] Comment on above: Order Comment: Speci men Type: BLOOD SPECIMENOrdering Facility: [facility] Address: [address] [place] [address] Result Comment: eAG: (Estimated average glucose) is a calculated value from HgbA1c and is customer service representative teller of the average blood glucose level in the last 2-3 month period. Performed By: #### 5 5454-3 ####[facility] LABCLIA [id number] [place] [address] [place] HbA1c (Bld) [Mass fraction] 5.6 % Normal 4.3-5.6 [facility] Comment on above: Order Comment: Speci men Type: BLOOD SPECIMENOrdering Facility: [facility] Address: [address] [place] [address] Result Comment: Amer ican Diabetes Association guidelines indicate that patients with HgbA1c in the range 5.7-6.4% are at increased risk for development of diabetes, and intervention by lifestyle modification may be beneficial. HgbA1c greater or equal to 6.5% is considered diagnostic of diabetes. Performed By: #### 5 5454-3 ####[facility] LABCLIA [id number] [place] [address] [place] LIPID PANEL, NONFASTINGon Cholesterol [Mass/Vol] 123 mg/dL Normal <200 [facility] Comment on above: Order Comment: Speci men Type: BLOOD SPECIMENOrdering Facility: [facility] Address: [address] [place] [address] Result Comment: <200 mg/dL, Desirable 200-239 mg/dL, Borderline high >239 mg/dL, High Performed By: #### 2 4323-8, LIPNF ####[facility] LABCLIA [id number] [place] [address] [place] HDL CHOLESTEROL, NF 96 mg/dL Normal >[address] [facility] Comment on above: Order Comment: Speci men Type: BLOOD SPECIMENOrdering Facility: [facility] Address: [address] [place] [address] Result Comment: 40-5 9 mg/dL, Acceptable >59 mg/dL, High: Negative risk factor for coronary heart disease <40 mg/dL, Low: Positive risk factor for coronary heart disease Performed By: #### 2 4323-8, LIPNF ####[facility] LABCLIA [id number] [address] [place] LDL CHOLESTEROL, NF 18 mg/dL Normal <[address] [facility] Comment on above: Order Comment: Speci men Type: BLOOD SPECIMENOrdering Facility: [facility] Address: [address] [place] [address] Result Comment: <100 mg/dL, Optimal 100-129 mg/dL, Near optimal/above optimal 130-159 mg/dL, Borderline high 160-189 mg/dL, High >189 mg/dL, Very high Secondary prevention optimal LDL Cholesterol levels are recommended to be < 70 mg/dL Performed By: #### 2 4323-8, LIPNF ####[facility] LABCLIA [id number] [place] [address] [place] LDL/HDL RATIO, NF 0.19 mg/dL Normal <2.54 [facility] Comment on above: Order Comment: Speci men Type: BLOOD SPECIMENOrdering Facility: [facility] Address: [address] [place] [address] Result Comment: Ramon england: 1. National Cholesterol Education Program ATP III Guideline At-A-Glance Quick Desk Reference: National Heart, Lung, and Blood [place]. National Institutes of Health. 2001: NIH Publication No. 01-3305. 2. An International Atherosclerosis Society position paper: global recommendations for the management of dyslipidemia: executive summary, Atherosclerosis. 2014: 232(2):410-413. Performed By: #### 2 4323-8, LIPNF ####[facility] LABCLIA [id number] [place] [address] [place] NON HDL CHOL, NF 27 mg/dL Normal <130 [facility] Comment on above: Order Comment: Treasurei men Type: BLOOD SPECIMENOrdering Facility: [facility] Address: [address] [place] [address] Result Comment: <130 mg/dL, Optimal 130-159 mg/dL, Near optimal/above optimal 160-189 mg/dL, Borderline high 190-219 mg/dL, High >219 mg/dL, Very high Secondary prevention optimal non HDL Cholesterol levels are recommended to be <100 mg/dL Performed By: #### 2 4323-8, LIPNF ####[facility] LABCLIA [id number] [place] [address] [place] T CHOL/HDL RATIO NF 1.28 mg/dL Normal <5.[address] [facility] Comment on above: Order Comment: Speci men Type: BLOOD SPECIMENOrdering Facility: [facility] Address: [address] [place] [address] Performed By: #### 2 4323-8, LIPNF ####[facility] LABCLIA [id number] [place] [address] [place] TRIGLYCERIDES, NF 47 mg/dL Normal <150 [facility] Comment on above: Order Comment: Speci men Type: BLOOD SPECIMENOrdering Facility: [facility] Address: [address] [id number] Result Comment: <150 mg/dL, Normal 150-199 mg/dL, Borderline high 200-499 mg/dL, High >499 mg/dL, Very high Performed By: #### 2 4323-8, LIPNF ####[facility] LABCLIA [id number] [place] [id number] [place] VLDL CHOLESTEROL, NF 9 mg/dL Normal <30 [facility] Comment on above: Order Comment: Speci men Type: BLOOD SPECIMENOrdering Facility: [facility] Address: [address] [place] [address] Performed By: #### 2 4323-8, LIPNF ####[facility] LABCLIA [id number] [place] [address] [place] Coronary Angiography CTon Coronary Angiography CT [facility] Imaging Services [address] [place] [address] 06/30/24 1112 MR#: [id number] Acct: [id number] Name: MARIE HUTSON Rep #: [id number] : 1950 74 From: Nain Segundo MD [...] MD; Dr. Sher Jules MD Signed [facility] Office Visit (PODIWS ) MARIE HUTSON ([id number]) 1950 M Date Time Provider Department 06/26/24 [...] Objective: Patient presents to clinic ambulating in [facility] Vasc: DP and PT pulses are faintly [...] Gomez Schwab DPM Referring Provider: GOMEZ SCHWAB [[id number]] Allergies As of Date: 06/26/2024 (No Known [...] right foot [M79.674] PAD (peripheral artery disease) ([facility]) [I73.9] Diabetic polyneuropathy associated with type 2 diabetes mellitus ([facility]) [E11.42] Prescriptions as of 06/26/2024 - nitroglycerin [...] days. - Miscellaneous Medical Supply (COMPRESSION STOCKINGS) [facility] COMPRESSION STOCKINGS KNEE HI 20-30 WT M79.89 [...] [N52.9] 12/29/2007 (more content not included)... Normal [facility] Cardiology Visit Reporton Cardiology Visit Report [facility] [address] [place] [address] OFFICE VISIT Date of Service: 06/26/24 MR#: [id number] Acct: [id number] Name: MARIE HUTSON Rep #: [id number] : 1950 Provider: TANIYA lopez Age/Sex: 74/M Location: [facility] Status: Signed HPI HPI History of Present Illness Details: This is a 74 year old gentleman who presents to the office today for a cardiovascular follow-up visit. He has a past medical history significant for coronary artery disease with three-vessel CABG (WRIGHT LAD, SVG-PDA, SVG-OM 1) in 2012 at the [facility]. 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 Ricks after his hospitalization. From a [...] 99 Intake Visit Reasons: 4 WK FU Temporary Administrative Assistant Required: No Is patient in pain?: No [...] Essential (primary) hypertension Atherosclerotic heart disease of [place] coronary artery without angina pectoris Diabetes mellitus, [...] fatigue, weakness, (more content not included)... Normal [facility] CREATININE FINGERSTICKon CREATININE WB < 1.0 Normal 0.70-1.30 [facility] Comment on above: Performed By: #### L 9100.0200 ####[facility] [address] [place], [place], [id number] EGFR WB > 60.0000 Normal >60 [facility] Comment on above: Performed By: #### L 9100.0200 ####[facility] [address] [facility] [place], [address] Cardiac Onl yon 06-23-[address] Cardiac Only [facility] Imaging Services [address] [place], [place] [address] Limited Chest CT Cardiac Only MR#: [id number] Acct: [id number] Name: MARIE HUTSON Rep #: [id number] : 1950 M 74 From: Ravi mcghee MD PCP: Dr. Sher Jules MD Status: [facility] Study: Limited Chest CT Cardiac Only Date of Exam: Exam# [id number] Ordering Dr: Naz Cox RIFLE CASE REPAIRER RIFLE CASE REPAIRER- C [id number] STUDY: CT CHEST WITH T WITHOUT CONTRAST REASON FOR EXAM: Male, 74 years old. Atherosclerotic heart disease of [place] coronary artery with limited chest over read [...] CC: TANIYA Cox; Dr. Sher Jules MD Bindery Production Manager: Signed Normal [facility] 12 Lead EKG performed by [facility] on 05-28-2024 12 Lead EKG performed by [facility] [address] [place] [address] 12 Lead EKG performed by [facility] 05/28/241042 MR#: [id number] Acct: [id number] Name: MARIE HUTSON Rep #: [id number] : 1950 74 From: Naz Cox NP RIFLE CASE REPAIRER-C Attending Dr: ROSI SinhaC Status: DEP Susan CASE Ordering Dr: Naz Cox NP RIFLE CASE REPAIRER-C Date: 05/28/24 Location: [facility] Sex: M C Admitted: BMS/12 Lead EKG performed by [facility] ECG Report Interpretation ---Marked sinus Bradycardia -First degree A-V block Janina = 244BORDERLINE RHYTHMElectronically signed on 06/03/2024 at 07:35 by Nain Segundo Software Version [id number] 06/03/2438 Date Naz MONAHAN CC: Dr. Sher Jules MD Date Dictated: 05/28/241042 Date Transcribed: 05/28/241042 Binder[employer] Production Manager: MASOOD Signed Normal [facility] Cardiology Visit Reporton Cardiology Visit Report [facility] [address] [place] [address] OFFICE VISIT Date of Service: 05/28/24 MR#: [id number] Acct: [id number] Name: MARIE HUTSON Rep #: [id number] 3 : 1950 Provider: TANIYA lopez Age/Sex: 74/M Location: [facility] Status: Signed [facility] History of Present Illness Details: This is a 74 year old gentleman who presents to the office today for a cardiovascular follow-up visit. He has a past medical history significant for coronary artery disease with three-vessel CABG (WRIGHT LAD, SVG-PDA, SVG-OM 1) in 2012 at the [facility]. He had presented to the emergency room [...] He states that he followed with his restaurant associate at [address] after his hospitalization. [...] Method room air Intake Visit Reasons: S/P [facility] Cath 01/28 Accompanied by: Self Is [...] Essential (primary) hypertension Atherosclerotic heart disease of [place] coronary artery without angina pectoris Diabetes mellitus, [...] Smoking S (more content not included)... Normal [facility] NM CARDIAC PERF STRESS/PHARM on 03-12-2024 NM CARDIAC PERF STRESS/PHARM * * *Final Report* * * DATE OF EXAM: Mar 12 2024 9:00AM ASHER 0006 - NM CARDIAC PERF STRESS/PHARM / PROCEDURE REASON: multiple diagnoses * * * * Physician Interpretation * * * * Stress Gateman Report: [facility] Date of service: 03/12/2024 7:31:04 AM [...] later. See administered radiotracer and doses below. [facility] Date of service: 03/12/2024 7:31:04 AM [...] * * * ---- Stress ECG Report: [facility] Date of service: 03/12/2024 7:31:04 AM Ordering physician: BIB PATTERSON park interpretive specialist: Ericka Hurtado Cable Engineer: Edelmira Wilks Interpreting physician: Cecile Woodson MD [...] PCI (20 (more content not included)... Normal [facility] NM Heart Perfusion W stress and W radionuclide [place] 03-12-2024 * * *Final Report* * * DATE OF EXAM: Mar 12 2024 9:00AM ASHER 0006 - NM CARDIAC PERF STRESS/PHARM / PROCEDURE REASON: multiple diagnoses * * * * Physician Interpretation * * * * Stress Gateman Report: [facility] Date of service: 03/12/2024 7:31:04 AM [...] later. See administered radiotracer and doses below. [facility] Date of service: 03/12/2024 7:31:04 AM [...] * * * ---- Stress ECG Report: [facility] Date of service: 03/12/2024 7:31:04 AM Ordering physician: BIB PATTERSON park interpretive specialist: Ericka Hurtado Cable Engineer: Edelmira Wilks Interpreting physician: Cecile Woodson MD Patient name: MR. MARIE HUTSON Age: 74 years Gender: M Height: 170.18 cm BSA: 2.26 m Weight: 108.41 kg BMI: 37.4 kg/m Indication: Chest pressure / Chest tightness Stress ECG Conclusion: Conclusion: Normal Stress ECG Summary (more content not included)... [facility] Provider, [facility] Flaca meng Alderson - 03/12/2024 * * *Final Report* * * DATE OF EXAM: Mar 12 2024 9:00AM ASHER 0006 - NM CARDIAC PERF STRESS/PHARM / PROCEDURE REASON: multiple diagnoses * * * * Physician Interpretation * * * * Stress Gateman Report: [facility] Date of service: 03/12/2024 7:31:04 AM [...] later. See administered radiotracer and doses below. [facility] Date of service: 03/12/2024 7:31:04 AM [...] * * * ---- Stress ECG Report: [facility] Date of service: 03/12/2024 7:31:04 AM Ordering physician: BIB PATTERSON park interpretive specialist: Ericka Hurtado Cable Engineer: Edelmira Wilks Interpreting physician: Cecile Woodson MD [...] the predicted he (more content not included)... [facility] Radiology [facility]ative[facility] Per[facility] W stress and W radionuclide IVOrdered By: Ccf Provider on 03-12-2024 [facility] Remy 03-11-2024 [place] Telephone (CDLBME) MARIE HUTSON ([id number]) 1950 M Date Time Provider Department 03/11/24 [...] days. - Miscellaneous Medical Supply (COMPRESSION STOCKINGS) [facility] [place] COMPRESSION STOCKINGS KNEE HI 20-30 WT M79.89 [...] [H34.232] 06/11/2022 02/07/2024 Coronary artery disease involving [place] clemente*05/06/2023 Obesity, Class II, BMI 35-39.9 [E66.9] 08/09/2023 02/07/2024 Obesity, Class I, BMI 30-34.9 [E66.9] 02/07/2024 Encounter Status:Closed by EDELMIRA WILKS on 03/11/24 [facility] Basophil percentageOrdered B y: Rubio Simeon on 01-30-2024 Bilirubin [Mass/Vol] 0.80 mg/dL 0.20-1.00 [facility] Comment on above: For patients on eltr ombopag therapy, use of Dimension [place] TBIL is not recommended. Chloride [Moles/Vol] 101 mmol/L 98-107 [facility] Glucose [Mass/Vol] 160 mg/dL 74-106 [facility] Comment on above: Fasting Glucose resu lt greater than or equal to 126 mg/dL suggests DIABETES MELLITUS per A.D.A. criteria. Hemoglobin (Bld) [Mass/Vol] 9.6 g/dL 13.0-16.5 [facility] Potassium [Moles/Vol] 3.5 mmol/L 3.5-5.1 [facility] Protein [Mass/Vol] 6.0 g/dL 6.4-8.2 [facility] Sodium [Moles/Vol] 135 mmol/L 136-145 [facility] WBC (Bld) [#/Vol] 14.5 10*3/uL 4.4-11.0 [facility] Determination of erythrocyte mean corpuscular volume (MCV)Ordered By: Rubio Simeon on 01-30-2024 MCV (RBC) [Entitic vol] 93.2 fL 80-94 [facility] Erythrocyte distribution wid th ratioOrdered By: [facility] on 01-30-2024 Erythrocyte distribution width (RBC) [Ratio] 11.9 % 11.6-14.6 [facility] Erythrocyte distribution wid th standard deviationOrdered By: [facility] on 01-30-2024 Erythrocyte distribution width (RBC) [Entitic vol] 39.7 fL 35.1-43.9 [facility] Hematocrit Auto (Bld) [Volum e fraction]Ordered By: Rubiocarla Simeon on 01-30-2024 Hematocrit (Bld) [Volume fraction] 27.5 % 40-54 [facility] Laboratory - Chemistry and C hemistry - challengeOrdered By: Rubio Blanco on 01-30-2024 Albumin/Globulin [Mass ratio] 0.8 {ratio} 0.9-2.4 [facility] ALP [Catalytic activity/Vol] 86 U/L 45-117 [facility] ALT [Catalytic activity/Vol] 22 U/L 16-61 [facility] CO2 [Moles/Vol] 28.0 mmol/L 21.0-32.0 [facility] Globulin (S) [Mass/Vol] 3.4 g/dL 2.2-4.2 [facility] Urea nitrogen/Creatinine [Mass ratio] 21.5 mg/mg 10-20 [facility] Laboratory - Hematology and Cell countsOrdered By: Rubiocarla Simeon on 01-30-2024 MCH (RBC) [Entitic mass] 32.5 pg 27.0-32.0 [facility] MCHC (RBC) [Mass/Vol] 34.9 g/dL 32-36 [facility] Platelet mean volume (Bld) [Entitic vol] 9.1 fL 6.2-12.0 [facility] Platelets (Bld) [#/Vol] 317 10*3/uL 150-450 [facility] No Panel InformationOrdered By: Rubio Simeon on 01-30-2024 Estimated Creatinine Clearance Calc 99.95 ml/min [facility] Estimated GFR (MDRD) Amer 133 mL/min >60 [facility] Comment on above: GFR Calc Estimated GFR (MDRD) Non-Af Amer 110 mL/min >60 [facility] Comment on above: Non- GFR Calc RBC Auto (Bld) [#/Vol]Ordere d By: Rubio Simeon on 01-30-2024 RBC (Bld) [#/Vol] 2.95 10*6/uL 4.6-6.2 [facility] Serum or plasma calcium juany urement (mass/volume)Ordered By: Rubio Simeon on 01-30-2024 Calcium [Mass/Vol] 8.6 mg/dL 8.5-10.1 [facility] Serum or plasma creatinine m easurement (mass/volume)Ordered By: Rubio Simeon on 01-30-2024 Creatinine [Mass/Vol] 0.74 mg/dL 0.70-1.30 [facility] Comment on above: The validity of the calculated GFR & GFRAA in patients over 70 years has not been determined. Clinical correlation is essential. Serum or plasma urea nitroge n measurement (mass/volume)Ordered By: Rubio Simeon on 01-30-2024 Urea nitrogen [Mass/Vol] 16 mg/dL 7-18 [facility] Thin prep Papanicolaou smear with manual screeningOrdered By: Debby Machuca on 01-30-2024 Thin prep Papanicolaou smear with manual screening 224 mg/dL 74-106 [facility] Comment on above: MANAGEMENT OF PATIEN T CARE PER NURSING PROTOCOL Thin prep Papanicolaou smear with manual screeningOrdered By: Rubio Simeon on 01-30-2024 Thin prep Papanicolaou smear with manual screening 2.6 g/dL 3.2-5.0 [facility] Thin prep Papanicolaou smear with manual screening 46 U/L 15-37 [facility] Thin prep Papanicolaou smear with manual screening 6 5-15 [facility] Absolute lymphocyte countOrd ered By: Geeta Mendoza on 01-29-2024 Lymphocytes Auto (Unsp spec) [#/Vol] 0.73 10*3/uL 0.83-4.51 [facility] Activated partial thrombopla stin time (aPTT) in platelet poor plasma by coagulation aOrdered By: Rubio Simeon on 01-29-2024 aPTT Coag (PPP) [Time] 95.3 s 24.1-36.2 [facility] Comment on above: CRITICAL VALUE VERIF IED. CALLED TO ERNESTINA HOLLOWAY (ICU)01/29/24 07 Gomez Sewell.RESULTS READ BACK BY SAME. Automated lymphocyte count a s percentage of total leukocytesOrdered By: Geeta Mendoza on 01-29-2024 Lymphocytes/100 WBC Auto (Unsp spec) 4.7 % 19-41 [facility] Basophil percentageOrdered B y: Geeta Mendoza on 01-29-2024 Basophil percentage 3.6 mg/dL 2.5-4.9 [facility] Basophils/100 WBC (Bld) 0.1 % 0-1 [facility] Cholesterol [Mass/Vol] 79 mg/dL <200 [facility] Comment on above: <200 mg/dL Desirable 200-240 mg/dL Borderline >240 mg/dL High Risk Eosinophils/100 WBC (Bld) 0.0 % 0-5 [facility] Monocytes/100 WBC (Bld) 6.0 % 0-10 [facility] Neutrophils (Bld) [#/Vol] 13.7 10*3/uL 2.0-7.7 [facility] Neutrophils/100 WBC (Bld) 88.5 % 47-70 [facility] Triglyceride [Mass/Vol] 54 mg/dL <199 [facility] Comment on above: The drugs N-Acetylcy steine and Metamizole may falsely depress this assay.Serum Triglycerides Reference Interval Normal <150 mg/dL Borderline high 150 - 199 mg/dL High 200 - 499 mg/dL Very High > or = 500 mg/dL Immature granulocytes/100 WB C Auto (Bld)Ordered By: Geeta Mendoza on 01-29-2024 Immature granulocytes/100 WBC (Bld) 0.700 % 0.0-0.9 [facility] Comment on above: IG% - Immature Granu locytes (promyelocytes, myelocytes and metamyelocytes) > 1% indicates that a LEFT SHIFT is Present. Iron measurement (mass/mass) Ordered By: Geeta Mendoza on 01-29-2024 Iron (Unsp spec) [Mass/Mass] 87 ug/dL 65-175 [facility] Laboratory - Chemistry and C hemistry - challengeOrdered By: Geeta Mendoza on 01-29-2024 Cholesterol in HDL [Mass/Vol] 49 mg/dL >40 [facility] Comment on above: The drugs N-Acetylcy steine and Metamizole may falsely depress this assay. Reference Range HDL <40 mg/dL Low HDL Cholesterol HDL >or= 60 mg/dL High HDL Cholesterol Cholesterol in LDL [Mass/Vol] 19 mg/dL 0-130 [facility] Cobalamin (Vitamin B12) [Mass/Vol] 424 pg/mL 211-911 [facility] Ferritin [Mass/Vol] 234 ng/mL 26-388 [facility] Magnesium [Mass/Vol] 1.9 mg/dL 1.6-2.6 [facility] Laboratory - Hematology and Cell countsOrdered By: Geeta Mendoza on 01-29-2024 Nucleated RBC/100 WBC (Bld) [Ratio] 0 % 0-5 [facility] No Panel InformationOrdered By: Debby Machuca on 01-29-2024 Activated Clotting Time 255 sec 74-137 [facility] No Panel InformationOrdered By: Geeta Mendoza on 01-29-2024 Folate 17.30 ng/mL 3.1-55.4 [facility] Total Iron Binding Capacity 195 ug/dL 250-450 [facility] VLDL Cholesterol 11 mg/dL 5-40 [facility] Troponin I High Sensitivity 16202 pg/mL 3.0-78.0 [facility] Comment on above: Critical Result(s) C alled at: 00:42:11 01/29/2024 by: Christiana Hale RN in ICU. Results read back by same. Please Note: New Test Units and Gender Specific Reference Ranges. For more information see Policy Stat Procedure [place] High Sensitivity Troponin (TNIH) and attachments. Serum or plasma iron saturat ion measurement (mass fraction)Ordered By: Geeta Kelly on 01-29-2024 Iron saturation [Mass fraction] 44.6 % 15.0-55.0 [facility] Serum or plasma thyroid stim ulating hormone (TSH) measurement (units/volume)Ordered By: Geeta Kelly on 01-29-2024 TSH Qn 0.31 uIU/mL 0.358-3.74 [facility] Thin prep Papanicolaou smear with manual screeningOrdered By: Geeta Kelly on 01-29-2024 Thin prep Papanicolaou smear with manual screening 1.27 ng/dL 0.76-1.46 [facility] Whole blood hemoglobin A1c/t otal hemoglobin ratio (mass fraction)Ordered By: Geeta Kelly on 01-29-2024 HbA1c (Bld) [Mass fraction] 6.3 % 3.8-5.6 [facility] Comment on above: Normal < 5.7 % Predi abetic 5.7 - 6.4 % Diabetic >or= 6.5 % Please note range changes. XR Wrist - bilateral PA and Lateral and Obliqueon 01-29-2024 IMPRESSION: 1. No acute radiographic abnormality of the bilateral wrists Bindery Production Manager: PSCB Transcribe Date/Time: Jan 29 2024 5:05P Dictated by : TOOTIE BERNARD MD This examination was interpreted and the report reviewed and electronically signed by: TOOTIE BERNARD MD on Jan 29 2024 5:06PM [facility] DIVISION OF RADIOLOGY * * *Final Report* [...] calcifications DIVISION OF RADIOLOGY Provider, Malini Thayer [facility] - 01/29/2024 * * *Final Report* * [...] acute radiographic abnormality of the bilateral wrists Bindery Production Manager: [facility] Transcribe Date/Time: Jan 29 2024 5:05P Dictated by : TOOTIE BERNARD MD This examination was interpreted and the report reviewed and electronically signed by: TOOTIE BERNARD MD on Jan 29 2024 5:06PM EST [facility] XR Wrist - bilateral PA and Lateral and ObliqueOrdered By: Ccf Provider on 01-29-2024 [facility] Absolute lymphocyte countOrd ered By: Kvng Jacobson on 01-28-2024 Lymphocytes Auto (Unsp spec) [#/Vol] 0.77 10*3/uL 0.83-4.51 [facility] Activated partial thrombopla stin time (aPTT) in platelet poor plasma by coagulation aOrdered By: Kvng Jacobson on 01-28-2024 aPTT Coag (PPP) [Time] 43.4 s 24.1-36.2 [facility] Automated lymphocyte count a s percentage of total leukocytesOrdered By: Kvng Jacobson on 01-28-2024 Lymphocytes/100 WBC Auto (Unsp spec) 4.6 % 19-41 [facility] Basophil percentageOrdered B y: Rubio Blanco on 01-28-2024 Basophil percentage 0 SEEN /hpf 0-5 [facility] Basophil percentageOrdered B y: Geeta White on 01-28-2024 Basophil percentage 2.2 mg/dL 2.5-4.9 [facility] Bilirubin [Mass/Vol] 0.90 mg/dL 0.20-1.00 [facility] Comment on above: For patients on eltr ombopag therapy, use of Dimension [place] TBIL is not recommended. Protein [Mass/Vol] 7.1 g/dL 6.4-8.2 [facility] Basophil percentageOrdered B y: Kvng Jacobson on 01-28-2024 Basophils/100 WBC (Bld) 0.1 % 0-1 [facility] Chloride [Moles/Vol] 96 mmol/L 98-107 [facility] Eosinophils/100 WBC (Bld) 0.0 % 0-5 [facility] Glucose [Mass/Vol] 262 mg/dL 74-106 [facility] Comment on above: Glucose result great er than or equal to 200 mg/dLsuggests DIABETES MELLITUS per A.D.A. criteria. Hemoglobin (Bld) [Mass/Vol] 10.7 g/dL 13.0-16.5 [facility] Monocytes/100 WBC (Bld) 2.2 % 0-10 [facility] Neutrophils (Bld) [#/Vol] 15.4 10*3/uL 2.0-7.7 [facility] Neutrophils/100 WBC (Bld) 91.9 % 47-70 [facility] Potassium [Moles/Vol] 4.3 mmol/L 3.5-5.1 [facility] Sodium [Moles/Vol] 129 mmol/L 136-145 [facility] WBC (Bld) [#/Vol] 16.8 10*3/uL 4.4-11.0 [facility] Bilirubin Test strip Ql (U)O rdered By: Rubio Simeon on 01-28-2024 Bilirubin Ql (U) Negative Negative [facility] Determination of erythrocyte mean corpuscular volume (MCV)Ordered By: Kvng Jacobson on 01-28-2024 MCV (RBC) [Entitic vol] 93.9 fL 80-94 [facility] Direct bilirubinOrdered By: Geeta Mendoza on 01-28-2024 Bilirubin.direct [Mass/Vol] 0.30 mg/dL 0.00-0.30 [facility] Erythrocyte distribution wid th ratioOrdered By: Kvng Jacobson on 01-28-2024 Erythrocyte distribution width (RBC) [Ratio] 11.7 % 11.6-14.6 [facility] Erythrocyte distribution wid th standard deviationOrdered By: Kvng Jacobson on 01-28-2024 Erythrocyte distribution width (RBC) [Entitic vol] 39.6 fL 35.1-43.9 [facility] Hematocrit Auto (Bld) [Volum e fraction]Ordered By: Kvng Jacobson on 01-28-2024 Hematocrit (Bld) [Volume fraction] 30.7 % 40-54 [facility] Immature granulocytes/100 WB C Auto (Bld)Ordered By: Kvng Jacobson on 01-28-2024 Immature granulocytes/100 WBC (Bld) 1.200 % 0.0-0.9 [facility] Comment on above: IG% - Immature Granu locytes (promyelocytes, myelocytes and metamyelocytes) > 1% indicates that a LEFT SHIFT is Present. Ketones Test strip Ql (U)Ord ered By: Rubio Simeon on 01-28-2024 Ketones Ql (U) Negative Negative [facility] Laboratory - Chemistry and C hemistry - challengeOrdered By: Geeta Mendoza on 01-28-2024 Sodium (U) [Moles/Vol] 50 mmol/L Not Establ. [facility] ALP [Catalytic activity/Vol] 104 U/L 45-117 [facility] ALT [Catalytic activity/Vol] 18 U/L 16-61 [facility] Globulin (S) [Mass/Vol] 3.9 g/dL 2.2-4.2 [facility] Magnesium [Mass/Vol] 1.6 mg/dL 1.6-2.6 [facility] Laboratory - Chemistry and C hemistry - challengeOrdered By: Kvng Jacobson on 01-28-2024 CO2 [Moles/Vol] 23.0 mmol/L 21.0-32.0 [facility] Urea nitrogen/Creatinine [Mass ratio] 19.8 mg/mg 10-20 [facility] Laboratory - CoagulationOrde red By: Kvng Jacobson on 01-28-2024 INR Coag (Bld) [Relative time] 1.1 {INR} [facility] PT Coag (PPP) [Time] 13.8 s 11.7-14.9 [facility] Laboratory - Hematology and Cell countsOrdered By: Kvng Jacobson on 01-28-2024 MCH (RBC) [Entitic mass] 32.7 pg 27.0-32.0 [facility] MCHC (RBC) [Mass/Vol] 34.9 g/dL 32-36 [facility] Nucleated RBC/100 WBC (Bld) [Ratio] 0 % 0-5 [facility] Platelet mean volume (Bld) [Entitic vol] 9.5 fL 6.2-12.0 [facility] Platelets (Bld) [#/Vol] 339 10*3/uL 150-450 [facility] Mucus LM Ql (Urine sed)Order ed By: Rubio Simeon on 01-28-2024 Mucus Ql (Urine sed) 0 SEEN /hpf [facility] Nitrite Test strip Ql (U)Ord ered By: Rubio Simeon on 01-28-2024 Nitrite Ql (U) Negative Negative [facility] No Panel InformationOrdered By: Rubio Simeon on 01-28-2024 Urine RBC 0 SEEN /hpf 0-5 [facility] D-Dimer Quantitative (PE/DVT) 1.70 FEU/ug/m 0.27-0.49 [facility] Comment on above: D-Dimer ELEVATED (>0 .49): Additional studies and clinicalassessments are indicated to conclude diagnosis of:Deep Vein Thrombosis (DVT) or Pulmonary Embolism (PE)CRITICAL VALUE VERIFIED. CALLED TO [id number] Aisha Pedroza.RESULTS READ BACK BY SAME . No Panel InformationOrdered By: Kvng Jacobson on 01-28-2024 Troponin I High Sensitivity 20567 pg/mL 3.0-78.0 [facility] Comment on above: Critical Result(s) C alled at: 21:09:53 01/28/2024 by: BRE GERBER TO NGOC. Results read back by same. Please Note: New Test Units and Gender Specific Reference Ranges. For more information see Policy Stat Procedure [place] High Sensitivity Troponin (TNIH) and attachments. Estimated Creatinine Clearance Calc 71.85 ml/min [facility] Estimated GFR (MDRD) Amer 84 mL/min >60 [facility] Comment on above: GFR Calc Estimated GFR (MDRD) Non-Af Amer 69 mL/min >60 [facility] Comment on above: Non- GFR Calc Protein Test strip Ql (U)Ord ered By: Rubio Simeon on 01-28-2024 Protein Ql (U) Negative Negative [facility] RBC Auto (Bld) [#/Vol]Ordere d By: Kvng Jacobson on 01-28-2024 RBC (Bld) [#/Vol] 3.27 10*6/uL 4.6-6.2 [facility] Serum or plasma calcium juany urement (mass/volume)Ordered By: Kvng Jacobson on 01-28-2024 Calcium [Mass/Vol] 9.6 mg/dL 8.5-10.1 [facility] Serum or plasma creatinine m easurement (mass/volume)Ordered By: Kvng Jacobson on 01-28-2024 Creatinine [Mass/Vol] 1.11 mg/dL 0.70-1.30 [facility] Comment on above: The validity of the calculated GFR & GFRAA in patients over 70 years has not been determined. Clinical correlation is essential. Serum or plasma urea nitroge n measurement (mass/volume)Ordered By: Kvng Jacobson on 01-28-2024 Urea nitrogen [Mass/Vol] 22 mg/dL 7-18 [facility] Serum procalcitonin measurem entOrdered By: Geeta Mendoza on 01-28-2024 Procalcitonin [Mass/Vol] 0.04 ng/mL 0.00-0.09 [facility] Comment on above: A procalcitonin (PCT [...] Ql (Urine sed) 0 SEEN /hpf 0-5 [facility] Thin prep Papanicolaou smear with manual screeningOrdered By: Geeta Mendoza on 01-28-2024 Thin prep Papanicolaou smear with manual screening 3.2 g/dL 3.2-5.0 [facility] Thin prep Papanicolaou smear with manual screening 14 U/L 15-37 [facility] Thin prep Papanicolaou smear with manual screeningOrdered By: Kvng Jacobson on 01-28-2024 Thin prep Papanicolaou smear with manual screening 10 5-15 [facility] Urine blood detectionOrdered By: Rubio Simeon on 01-28-2024 RBC Ql (U) Negative Negative [facility] Urine clarityOrdered By: Raven Simeon on 01-28-2024 Clarity (U) Clear Clear [facility] Urine color determinationOrd ered By: Rubio Simeon on 01-28-2024 Color (U) Yellow Yellow [facility] Urine creatinine measurement (mass/volume)Ordered By: Geeta Mendoza on 01-28-2024 Creatinine (U) [Mass/Vol] 20.80 mg/dL NO RANGE EST. [facility] Urine glucose detectionOrder ed By: Rubio Simeon on 01-28-2024 Glucose Ql (U) 50 mg/dl Normal [facility] Urine leukocyte esterase det ection by dipstickOrdered By: Rubio Simeon on 01-28-2024 Leukocyte esterase Test strip Ql (U) Negative Negative [facility] Urine osmolality measurement Ordered By: Geeta Mendoza on 01-28-2024 Osmolality (U) [Osmolality] 286 mOsm/KG >50 [facility] Comment on above: Normal Urine Referen ce Ranges Random: 50 - 1200 mOsm/kg H20 depending on fluid intake Random: >850 mOsm/kg after 12 hour fluid restriction 24 hour: ~300 - 900 mOsm/kg H2O Urine pHOrdered By: Rubio head on 01-28-2024 pH (U) 6.0 [pH] 5.0 - 8.0 [facility] Urine sediment bacteria coun t by microscopy (number/high power field)Ordered By: Rubio Simeon on 01-28-2024 Bacteria LM.HPF (Urine sed) [#/Area] 0 /[HPF] None Seen [facility] Urine specific gravity measu rementOrdered By: Rubio Simeon on 01-28-2024 Specific gravity (U) [Rel density] 1.010 1.002-1.030 [facility] Urine urobilinogen measureme ntOrdered By: Rubio Simeon on 01-28-2024 Urobilinogen Ql (U) Normal mg/dl Normal [facility] XR Wrist - bilateral PA and Lateral and Obliqueon 2024 Radiology Study observation (narrative) [facility] CTA ABD/PEL LOWER EXTREM W I VCONon 02-14-2023 [facility] CBC panel Auto (Bld)on 02-06 Erythrocyte distribution width (RBC) [Ratio] 11.3 % Low 11.5 - 15.0 % [facility] Hematocrit (Bld) [Volume fraction] 36.9 % Low 39.0 - 51.0 % [facility] Hemoglobin (Bld) [Mass/Vol] 13.2 g/dL 13.0 - 17.0 g/dL [facility] MCH (RBC) [Entitic mass] 34.0 pg 26.0 - 34.0 pg [facility] MCHC (RBC) [Mass/Vol] 35.8 g/dL 30.5 - 36.0 g/dL [facility] MCV (RBC) [Entitic vol] 95.1 fL 80.0 - 100.0 fL [facility] Nucleated RBC (Bld) [#/Vol] <0.01 k/uL [facility] Platelet mean volume (Bld) [Entitic vol] 9.9 fL 9.0 - 12.7 fL [facility] Platelets (Bld) [#/Vol] 208 10*3/uL 150 - 400 k/uL [facility] RBC (Bld) [#/Vol] 3.88 10*6/uL Low 4.20 - 6.0 0 m/uL [facility] WBC (Bld) [#/Vol] 4.16 10*3/uL 3.70 - 11. 00 k/uL [facility] Comprehensive metabolic 2000 panelon 02-06-2023 Albumin [Mass/Vol] 4.4 g/dL 3.9 - 4.9 g/dL [facility] ALP [Catalytic activity/Vol] 73 U/L 38 - 113 U/L [facility] ALT [Catalytic activity/Vol] 21 U/L 10 - 54 U/L [facility] Anion gap [Moles/Vol] 10 mmol/L 9 - 18 mmol/L [facility] AST [Catalytic activity/Vol] 25 U/L 14 - 40 U/L [facility] Bilirubin [Mass/Vol] 1.0 mg/dL 0.2 - 1 .3 mg/dL [facility] Calcium [Mass/Vol] 9.8 mg/dL 8.5 - 10. 2 mg/dL [facility] Chloride [Moles/Vol] 100 mmol/L 97 - 10 5 mmol/L [facility] CO2 [Moles/Vol] 23 mmol/L 22 - 30 mmol/L [facility] Creatinine [Mass/Vol] 0.64 mg/dL Low 0.73 - 1.22 mg/dL [facility] Estimated Glomerular Filtration Rate 101 mL/min/1.73m >=60 mL/min/1.73m [facility] Glucose [Mass/Vol] 174 mg/dL High 74 - 99 mg/dL [facility] Potassium [Moles/Vol] 4.5 mmol/L 3.7 - 5.1 mmol/L [facility] Protein [Mass/Vol] 7.0 g/dL 6.3 - 8.0 g/dL [facility] Sodium [Moles/Vol] 133 mmol/L Low 136 - 144 mmol/L [facility] Urea nitrogen [Mass/Vol] 11 mg/dL 9 - 24 mg/dL [facility] HbA1c (Bld)on 02-06-2023 Average glucose Estimated from glycated hemoglobin (Bld) [Mass/Vol] 169 mg/dL [facility] HbA1c (Bld) [Mass fraction] 7.5 % High 4.3 - 5.6 % [facility] Lipid 1996 panelon Cholesterol [Mass/Vol] 124 mg/dL <200 mg/dL [facility] Cholesterol in HDL [Mass/Vol] 69 mg/dL >39 mg/dL [facility] Cholesterol in LDL [Mass/Vol] 45 mg/dL <100 mg/dL [facility] Cholesterol in LDL/Cholesterol in HDL [Mass ratio] 0.65 {ratio} <2.54 [facility] Cholesterol in VLDL [Mass/Vol] 10 mg/dL <30 mg/dL [facility] Cholesterol non HDL [Mass/Vol] 55 mg/dL <130 mg/dL [facility] Cholesterol.total/Verna sterol in HDL [Mass ratio] 1.80 {ratio} <5.10 [facility] Fasting Time 14 hrs [facility] Triglyceride [Mass/Vol] 52 mg/dL <150 mg/dL [facility] CREATININE BLDon 01-15-2023 Creatinine [Mass/Vol] 0.81 mg/dL 0.73 - 1.22 mg/dL [facility] Estimated Glomerular Filtration Rate 95 mL/min/1.73m >=60 mL/min/1.73m [facility] ECG COMPLETEon 09-05-2022 Atrial Rate 60 BPM [facility] Calculated P [place] 38 degrees [facility] Calculated R [place] 3 degrees [facility] Calculated T [place] 39 degrees [facility] P-R Interval 204 ms [facility] QRS Duration 98 ms [facility] QT Interval 440 ms [facility] QTC Calculation (Bazett) 440 ms [facility] Ventricular Rate 60 BPM [facility] Absolute lymphocyte counton 05-30-2022 Lymphocytes Auto (Unsp spec) [#/Vol] 1.04 10*3/uL 0.83-4.51 [facility] Work Phone: Basophil percentageon 2021 Basophils/100 WBC (Bld) 0.5 % 0-1 [facility] Work Phone: Bilirubin [Mass/Vol] 1.40 mg/dL 0.20-1.00 [facility] Work Phone: Comment on above: For patients on eltr ombopag therapy, use of Dimension [place] TBIL is not recommended. Chloride [Moles/Vol] 103 mmol/L 98-107 [facility] Work Phone: Cholesterol [Mass/Vol] 104 mg/dL <200 [facility] Work Phone: Comment on above: <200 mg/dL Desirable 200-240 mg/dL Borderline >240 mg/dL High Risk Eosinophils/100 WBC (Bld) 0.7 % 0-5 [facility] Work Phone: Glucose [Mass/Vol] 109 mg/dL 74-106 [facility] Work Phone: Comment on above: Fasting Glucose resu lt from 100 to 125 mg/dL suggests IMPAIRED HOMEOSTASIS per A.D.A. criteria. Neutrophils (Bld) [#/Vol] 3.9 10*3/uL 2.0-7.7 [facility] Work Phone: Neutrophils/100 WBC (Bld) 69.3 % 47-70 [facility] Work Phone: Potassium [Moles/Vol] 3.6 mmol/L 3.5-5.1 [facility] Work Phone: Protein [Mass/Vol] 6.0 g/dL 6.4-8.2 [facility] Work Phone: [phone] Sodium [Moles/Vol] 134 mmol/L 136-145 [facility] Work Phone: Triglyceride [Mass/Vol] 93 mg/dL <199 [facility] Work Phone: Comment on above: The drugs N-Acetylcy steine and Metamizole may falsely depress this assay.Serum Triglycerides Reference Interval Normal <150 mg/dL Borderline high 150 - 199 mg/dL High 200 - 499 mg/dL Very High > or = 500 mg/dL WBC (Bld) [#/Vol] 5.6 10*3/uL 4.4-11.0 [facility] Work Phone: Blood erythrocytes count (nu mber/volume)on 05-30-2022 RBC (Bld) [#/Vol] 3.59 10*6/uL 4.6-6.2 [facility] Work Phone: Blood hemoglobin measurement (mass/volume)on 05-30-2022 Hemoglobin (Bld) [Mass/Vol] 12.0 g/dL 13.0-16.5 [facility] Work Phone: Blood lymphocytes/100 leukoc yteson 05-30-2022 Lymphocytes/100 WBC (Bld) 18.6 % 19-41 [facility] Work Phone: Blood monocytes/100 leukocyt eson 05-30-2022 Monocytes/100 WBC (Bld) 10.7 % 0-10 [facility] Work Phone: Blood platelet mean volumeon 05-30-2022 Platelet mean volume (Bld) [Entitic vol] 9.7 fL 6.2-12.0 [facility] Work Phone: Determination of erythrocyte mean corpuscular volume (MCV)on 05-30-2022 MCV (RBC) [Entitic vol] 95.0 fL 80-94 [facility] Work Phone: Glucose Glucometer (BldC) [M ass/Vol]on 05-30-2022 Glucose [Mass/Vol] 221 mg/dL 74-106 [facility] Work Phone: Comment on above: MANAGEMENT OF PATIEN T CARE PER NURSING PROTOCOL Hematocrit Auto (Bld) [Volum e fraction]on 05-30-2022 Hematocrit (Bld) [Volume fraction] 34.1 % 40-54 [facility] Work Phone: Laboratory - Chemistry and C hemistry - challengeon 05-30-2022 ALP [Catalytic activity/Vol] 57 U/L 45-117 [facility] Work Phone: ALT [Catalytic activity/Vol] 34 U/L 16-61 [facility] Work Phone: CO2 [Moles/Vol] 26.0 mmol/L 21.0-32.0 [facility] Work Phone: Globulin (S) [Mass/Vol] 2.5 g/dL 2.2-4.2 [facility] Work Phone: Urea nitrogen/Creatinine [Mass ratio] 18.6 mg/mg 10-20 [facility] Work Phone: Laboratory - Hematology and Cell countson 05-30-2022 Erythrocyte distribution width (RBC) [Entitic vol] 40.7 fL 35.1-43.9 [facility] Work Phone: Erythrocyte distribution width (RBC) [Ratio] 11.8 % 11.6-14.6 [facility] Work Phone: Immature granulocytes/100 WBC (Bld) 0.200 % 0.0-0.9 [facility] Work Phone: Comment on above: IG% - Immature Granu locytes (promyelocytes, myelocytes and metamyelocytes) > 1% indicates that a LEFT SHIFT is Present. MCH (RBC) [Entitic mass] 33.4 pg 27.0-32.0 [facility] Work Phone: Nucleated RBC/100 WBC (Bld) [Ratio] 0 % 0-5 [facility] Work Phone: MCHC Auto (RBC) [Mass/Vol]on 05-30-2022 MCHC (RBC) [Mass/Vol] 35.2 g/dL 32-36 [facility] Work Phone: No Panel Informationon 05-30 Estimated Creatinine Clearance Calc 70.97 ml/min [facility] Work Phone: Estimated GFR (MDRD) Amer 144 mL/min >60 [facility] Work Phone: Comment on above: GFR Calc Estimated GFR (MDRD) Non-Af Amer 119 mL/min >60 [facility] Work Phone: Comment on above: Non- GFR Calc Platelets bldon 05-30-2022 Platelets (Bld) [#/Vol] 194 10*3/uL 150-450 [facility] Work Phone: Serum or plasma albumin juany urement (mass/volume)on 05-30-2022 Albumin [Mass/Vol] 3.5 g/dL 3.2-5.0 [facility] Work Phone: Serum or plasma albumin/glob ulin mass ratioon 05-30-2022 Albumin/Globulin [Mass ratio] 1.4 {ratio} 0.9-2.4 [facility] Work Phone: Serum or plasma calcium juany urement (mass/volume)on 05-30-2022 Calcium [Mass/Vol] 8.7 mg/dL 8.5-10.1 [facility] Work Phone: Serum or plasma cholesterol in HDL measurement (mass/volume)on 05-30-2022 Cholesterol in HDL [Mass/Vol] 65 mg/dL >40 [facility] Work Phone: Comment on above: The drugs N-Acetylcy steine and Metamizole may falsely depress this assay. Reference Range HDL <40 mg/dL Low HDL Cholesterol HDL >or= 60 mg/dL High HDL Cholesterol Serum or plasma cholesterol in VLDL measurement (mass/volume)on 05-30-2022 Cholesterol in VLDL [Mass/Vol] 19 mg/dL 5-40 [facility] Work Phone: Serum or plasma creatinine m easurement (mass/volume)on 05-30-2022 Creatinine [Mass/Vol] 0.70 mg/dL 0.70-1.30 [facility] Work Phone: Comment on above: The validity of the calculated GFR & GFRAA in patients over 70 years has not been determined. Clinical correlation is essential. Serum or plasma low density lipoprotein (LDL) cholesterol measurement (mass/volume)on 05-30-2022 Cholesterol in LDL [Mass/Vol] 20 mg/dL 0-130 [facility] Work Phone: Serum or plasma urea nitroge n measurement (mass/volume)on 05-30-2022 Urea nitrogen [Mass/Vol] 13 mg/dL 7-18 [facility] Work Phone: Thin prep Papanicolaou smear with manual screeningon 05-30-2022 Thin prep Papanicolaou smear with manual screening 20 U/L 15-37 [facility] Work Phone: Thin prep Papanicolaou smear with manual screening 5 5-15 [facility] Work Phone: [phone] Whole blood hemoglobin A1c/t otal hemoglobin ratio (mass fraction)on 05-30-2022 HbA1c (Bld) [Mass fraction] 5.7 % 3.8-5.6 [facility] Work Phone: [phone] Comment on above: Normal < 5.7 % Predi abetic 5.7 - 6.4 % Diabetic >or= 6.5 % Please note range changes. Absolute lymphocyte counton 05-29-2022 Lymphocytes Auto (Unsp spec) [#/Vol] 0.97 10*3/uL 0.83-4.51 [facility] Work Phone: Basophil percentageon 2021 Basophils/100 WBC (Bld) 0.6 % 0-1 [facility] Work Phone: Chloride [Moles/Vol] 103 mmol/L 98-107 [facility] Work Phone: Eosinophils/100 WBC (Bld) 1.0 % 0-5 [facility] Work Phone: Glucose [Mass/Vol] 162 mg/dL 74-106 [facility] Work Phone: Comment on above: Fasting Glucose resu lt greater than or equal to 126 mg/dL suggests DIABETES MELLITUS per A.D.A. criteria. Neutrophils (Bld) [#/Vol] 3.3 10*3/uL 2.0-7.7 [facility] Work Phone: Neutrophils/100 WBC (Bld) 68.0 % 47-70 [facility] Work Phone: Potassium [Moles/Vol] 3.8 mmol/L 3.5-5.1 [facility] Work Phone: Comment on above: Slight Hemolysis, Re sult may be falsely increased. Sodium [Moles/Vol] 133 mmol/L 136-145 [facility] Work Phone: WBC (Bld) [#/Vol] 4.9 10*3/uL 4.4-11.0 [facility] Work Phone: Blood erythrocytes count (nu mber/volume)on 05-29-2022 RBC (Bld) [#/Vol] 3.57 10*6/uL 4.6-6.2 [facility] Work Phone: Blood hemoglobin measurement (mass/volume)on 05-29-2022 Hemoglobin (Bld) [Mass/Vol] 12.3 g/dL 13.0-16.5 [facility] Work Phone: Blood lymphocytes/100 leukoc yteson 05-29-2022 Lymphocytes/100 WBC (Bld) 19.8 % 19-41 [facility] Work Phone: Blood monocytes/100 leukocyt eson 05-29-2022 Monocytes/100 WBC (Bld) 10.4 % 0-10 [facility] Work Phone: Blood platelet mean volumeon 05-29-2022 Platelet mean volume (Bld) [Entitic vol] 9.5 fL 6.2-12.0 [facility] Work Phone: Determination of erythrocyte mean corpuscular volume (MCV)on 05-29-2022 MCV (RBC) [Entitic vol] 95.5 fL 80-94 [facility] Work Phone: Hematocrit Auto (Bld) [Volum e fraction]on 05-29-2022 Hematocrit (Bld) [Volume fraction] 34.1 % 40-54 [facility] Work Phone: Laboratory - Chemistry and C hemistry - challengeon 05-29-2022 CO2 [Moles/Vol] 24.0 mmol/L 21.0-32.0 [facility] Work Phone: Urea nitrogen/Creatinine [Mass ratio] 18.2 mg/mg 10-20 [facility] Work Phone: Laboratory - Hematology and Cell countson 05-29-2022 Erythrocyte distribution width (RBC) [Entitic vol] 41.2 fL 35.1-43.9 [facility] Work Phone: Erythrocyte distribution width (RBC) [Ratio] 11.7 % 11.6-14.6 [facility] Work Phone: Immature granulocytes/100 WBC (Bld) 0.200 % 0.0-0.9 [facility] Work Phone: Comment on above: IG% - Immature Granu locytes (promyelocytes, myelocytes and metamyelocytes) > 1% indicates that a LEFT SHIFT is Present. MCH (RBC) [Entitic mass] 34.5 pg 27.0-32.0 [facility] Work Phone: Nucleated RBC/100 WBC (Bld) [Ratio] 0 % 0-5 [facility] Work Phone: MCHC Auto (RBC) [Mass/Vol]on 05-29-2022 MCHC (RBC) [Mass/Vol] 36.1 g/dL 32-36 [facility] Work Phone: No Panel Informationon 05-29 Estimated Creatinine Clearance Calc 80.65 ml/min [facility] Work Phone: Estimated GFR (MDRD) Amer 110 mL/min >60 [facility] Work Phone: Comment on above: GFR Calc Estimated GFR (MDRD) Non-Af Amer 91 mL/min >60 [facility] Work Phone: Comment on above: Non- GFR Calc Troponin I High Sensitivity 21 pg/mL 3.0-78.0 [facility] Work Phone: Comment on above: Please Note: New Sylvia t Units and Gender Specific Reference Ranges. For more information see Policy Stat Procedure [place] High Sensitivity Troponin (TNIH) and attachments. Platelets bldon 05-29-2022 Platelets (Bld) [#/Vol] 171 10*3/uL 150-450 [facility] Work Phone: Serum or plasma calcium juany urement (mass/volume)on 05-29-2022 Calcium [Mass/Vol] 9.1 mg/dL 8.5-10.1 [facility] Work Phone: Serum or plasma creatinine m easurement (mass/volume)on 05-29-2022 Creatinine [Mass/Vol] 0.88 mg/dL 0.70-1.30 [facility] Work Phone: Comment on above: The validity of the calculated GFR & GFRAA in patients over 70 years has not been determined. Clinical correlation is essential. Serum or plasma urea nitroge n measurement (mass/volume)on 05-29-2022 Urea nitrogen [Mass/Vol] 16 mg/dL 7-18 [facility] Work Phone: Thin prep Papanicolaou smear with manual screeningon 05-29-2022 Thin prep Papanicolaou smear with manual screening 6 5-15 [facility] Work Phone: Vital Signs Date Time Vital Sign Value Performing Clinician Facility 05-07-2025 13:28-0400 Body height 177.[address] Sher Jules MD Work Phone: [phone] [place] [address] 05-07-2025 13:28-0400 Body mass index (BMI) [Ratio] 27.8 kg/m2 Dr. Sher Jules MD Work Phone: 7(471)081-748559 [place] [address] 05-07-2025 13:28-0400 Body weight 87.[address] Sher Jules MD Work Phone: 2([phone])915-080679 [place] [address] 05-07-2025 13:28-0400 Diastolic blood pressure 71 mm[Hg] Dr. Sher Jules MD Work Phone: 5(369)173-931479 [place] [address] 05-07-2025 13:28-0400 Heart rate 57 /min Dr. Sher Jules MD Work Phone: 3([phone])220-361179 [place] [address] 05-07-2025 13:28-0400 Respiratory rate 16 /min Dr. Sher Jules MD Work Phone: 1(355)601-676879 [place] [address] 05-07-2025 13:28-0400 SaO2% (BldA) [Mass fraction] 97 % Dr. Sher Jules MD Work Phone: 9([phone])265-859379 [place] [address] 05-07-2025 13:28-0400 Systolic blood pressure 156 mm[Hg] Dr. Sher Jules MD Work Phone: 6(925)358-588259 [place] [address] 05-06-2025 14:05-0400 Body height 177.[address] Sher Jules MD Work Phone: 9(063)640-763559 [place] [address] 05-06-2025 14:05-0400 Body mass index (BMI) [Ratio] 28.4 kg/m2 Dr. Sher Jules MD Work Phone: 9(141)475-563859 [place] [address] 05-06-2025 14:05-0400 Body weight 89.[address] Sher Jules MD Work Phone: 8(644)670-066559 [place] [address] 04-30-2025 00:39-0400 Body temperature 97.9 [degF] Dr. Sher Jules MD Work Phone: 3(502)[phone] [place] [address] 04-30-2025 00:39-0400 Diastolic blood pressure 70 mm[Hg] Dr. Sher Jules MD Work Phone: 3(178)[phone] [place] [address] 04-30-2025 00:39-0400 Heart rate 85 /min Dr. Sher Jules MD Work Phone: 8(074)472-333759 [place] [address] 04-30-2025 00:39-0400 Respiratory rate 22 /min Dr. Sher Jules MD Work Phone: 8(123)713-519359 [place] [address] 04-30-2025 00:39-0400 SaO2% (BldA) [Mass fraction] 95 % Dr. Sher Jules MD Work Phone: 6([phone])948-992259 [place] [address] 04-30-2025 00:39-0400 Systolic blood pressure 148 mm[Hg] Dr. Sher Jules MD Work Phone: 5(818)417-890459 [place] [address] 04-29-2025 22:27-0400 Body height 177.[address] Sher Jules MD Work Phone: 0([phone] [place] [address] 04-29-2025 22:27-0400 Body mass index (BMI) [Ratio] 28 kg/m2 Dr. Sher Jules MD Work Phone: [facility] 04-29-2025 22:27-0400 Body weight 88.[address] Sher Jules MD Work Phone: [facility] 04-14-2025 09:31-0400 Diastolic blood pressure 69 mm[Hg] Nikos Rivera MD Work Phone: [facility] 04-14-2025 09:31-0400 Heart rate 55 /min Nikos Rivera MD Work Phone: [facility] 04-14-2025 09:31-0400 Respiratory rate 16 /min Nikos Rivera MD Work Phone: [facility] 04-14-2025 09:31-0400 SaO2% (BldA) [Mass fraction] 94 % Nikos Rivera MD Work Phone: [facility] 04-14-2025 09:31-0400 Systolic blood pressure 146 mm[Hg] Nikos Rivera MD Work Phone: [facility] 04-14-2025 07:46-0400 Body temperature 98.1 [degF] Nikos Rivera MD Work Phone: [facility] 04-06-2025 09:12-0400 Diastolic blood pressure 65 mm[Hg] Nargis Benavidesle DO Work Phone: [facility] 04-06-2025 09:12-0400 Heart rate 56 /min Nargis Yin DO Work Phone: [facility] 04-06-2025 09:12-0400 SaO2% (BldA) [Mass fraction] 96 % Nargis Yin DO Work Phone: [facility] 04-06-2025 09:12-0400 Systolic blood pressure 116 mm[Hg] Nargis Yin DO Work Phone: [facility] 02-11-2025 08:53-0400 Body height 177.[address] Sher Jules MD Work Phone: [facility] 02-11-2025 08:53-0400 Body mass index (BMI) [Ratio] 27.5 kg/m2 Dr. Sher Jules MD Work Phone: [facility] 02-11-2025 08:53-0400 Body weight 87.[address] Sher Jules MD Work Phone: [facility] 02-11-2025 08:53-0400 Diastolic blood pressure 72 mm[Hg] Dr. Sher Jules MD Work Phone: [facility] 02-11-2025 08:53-0400 Heart rate 60 /min Dr. Sher Jules MD Work Phone: 7([phone])021-658559 [place] [address] 02-11-2025 08:53-0400 Respiratory rate 16 /min Dr. Sher Jules MD Work Phone: 3([phone] [place] [address] 02-11-2025 08:53-0400 Systolic blood pressure 134 mm[Hg] Dr. Sher Jules MD Work Phone: 0([phone])159-981479 [place] [address] 11-20-2024 08:58-0500 Body weight 88.[address] Sher Jules MD Work Phone: [facility] 11-13-2024 13:11-0500 Body mass index (BMI) [Ratio] 27.52 kg/m2 Sher Jules MD Work Phone: [facility] 11-13-2024 13:11-0500 Body weight 87 kg Sher Jules MD Work Phone: [facility] 11-13-2024 13:11-0500 Diastolic blood pressure 62 mm[Hg] Sher Jules MD Work Phone: [facility] 11-13-2024 13:11-0500 Heart rate 60 /min Sher Jules MD Work Phone: [facility] 11-13-2024 13:11-0500 Respiratory rate 16 /min Sher Jules MD Work Phone: [facility] 11-13-2024 13:11-0500 SaO2% (BldA) [Mass fraction] 98 % Sher Jules MD Work Phone: [facility] 11-13-2024 13:11-0500 Systolic blood pressure 132 mm[Hg] Sher Jules MD Work Phone: [facility] 09-30-2024 15:45-0500 Heart rate 53 /min Sergei Collins MD Work Phone: [facility] 09-30-2024 15:45-0500 Respiratory rate 17 /min Sergei Collins MD Work Phone: [facility] 09-30-2024 15:00-0500 Diastolic blood pressure 62 mm[Hg] Sergei Collins MD Work Phone: [facility] 09-30-2024 15:00-0500 Systolic blood pressure 166 mm[Hg] Sergei Collins MD Work Phone: [facility] 09-30-2024 12:33-0500 Body temperature 98.1 [degF] Sergei Collins MD Work Phone: [facility] 09-30-2024 12:33-0500 SaO2% (BldA) [Mass fraction] 99 % Sergei Collins MD Work Phone: [facility] [employer] 09-30-2024 10:10-0500 Body height 177.8 cm Sergei Collins MD Work Phone: [facility] 09-30-2024 10:10-0500 Body mass index (BMI) [Ratio] 27.12 kg/m2 Sergei Collins MD Work Phone: [facility] [employer] 09-30-2024 10:10-0500 Body weight 85.73 kg Sergei Collins MD Work Phone: [facility] [employer] 09-16-2024 14:09-0500 Body height 177.8 cm Sergei Collins [facility] Work Phone: [facility] [facility] [employer] 09-16-2024 14:09-0500 Body mass index (BMI) [Ratio] 27.12 kg/m2 Sergei Collins MD Work Phone: [facility] [employer] 09-16-2024 14:09-0500 Body weight 85.73 kg Sergei Collins MD Work Phone: [facility] 09-16-2024 14:09-0500 Diastolic blood pressure 64 mm[Hg] Sergei Collins MD Work Phone: [facility] 09-16-2024 14:09-0500 Heart rate 45 /min Sergei Collins MD Work Phone: [facility] 09-16-2024 14:09-0500 Systolic blood pressure 114 mm[Hg] Sergei Collins MD Work Phone: [facility] 09-11-2024 11:03-0500 Diastolic blood pressure 68 mm[Hg] Sher Jules MD Work Phone: [facility] Comment on above: true BP 09-11-2024 11:03-0500 Systolic blood pressure 149 mm[Hg] Sher Jules MD Work Phone: [facility] Comment on above: true BP 09-11-2024 10:54-0500 Body height 177.8 cm Sher Jules MD Work Phone: [facility] 09-11-2024 10:54-0500 Body mass index (BMI) [Ratio] 27.81 kg/m2 Sher Jules MD Work Phone: [facility] 09-11-2024 10:54-0500 Body temperature 97.2 [degF] Sher Jules MD Work Phone: [facility] 09-11-2024 10:54-0500 Body weight 87.9 kg Sher Jules MD Work Phone: [facility] 09-11-2024 10:54-0500 Heart rate 46 /min Sher Jules MD Work Phone: [facility] 09-11-2024 10:54-0500 SaO2% (BldA) [Mass fraction] 99 % Sher Jules MD Work Phone: [facility] 04-07-2024 08:47-0400 Diastolic blood pressure 65 mm[Hg] Nargis Yin DO Work Phone: [facility] 04-07-2024 08:47-0400 Heart rate 45 /min Nargis iYn DO Work Phone: [facility] 04-07-2024 08:47-0400 SaO2% (BldA) [Mass fraction] 98 % Nargis Yin DO Work Phone: [facility] 04-07-2024 08:47-0400 Systolic blood pressure 142 mm[Hg] Nargis Yin DO Work Phone: [facility] 04-06-2024 13:24-0400 Body mass index (BMI) [Ratio] 29.98 kg/m2 Bib Patterson MD Work Phone: [facility] 04-06-2024 13:24-0400 Body weight 92.08 kg Bib Patterson MD Work Phone: [facility] 04-06-2024 13:24-0400 Diastolic blood pressure 62 mm[Hg] Bib Patterson MD Work Phone: [facility] 04-06-2024 13:24-0400 Heart rate 48 /min Bbi Patterson MD Work Phone: [facility] 04-06-2024 13:24-0400 SaO2% (BldA) [Mass fraction] 99 % Bib Patterson MD Work Phone: [facility] 04-06-2024 13:24-0400 Systolic blood pressure 143 mm[Hg] Bib Patterson MD Work Phone: [facility] 04-06-2024 10:16-0400 Body height 175.3 cm Gem Bass MD Work Phone: [facility] 04-06-2024 10:16-0400 Body mass index (BMI) [Ratio] 30.04 kg/m2 Gem Bass MD Work Phone: [facility] 04-06-2024 10:16-0400 Body weight 92.26 kg Gem Bass MD Work Phone: [facility] 04-06-2024 10:16-0400 Diastolic blood pressure 68 mm[Hg] Gem Bass MD Work Phone: [facility] 04-06-2024 10:16-0400 Heart rate 45 /min Gem Bass MD Work Phone: [facility] 04-06-2024 10:16-0400 Respiratory rate 19 /min Gem Bass MD Work Phone: [facility] 04-06-2024 10:16-0400 SaO2% (BldA) [Mass fraction] 98 % Gem Bass MD Work Phone: [facility] 04-06-2024 10:16-0400 Systolic blood pressure 122 mm[Hg] Gem Bass MD Work Phone: [facility] 03-11-2024 10:47-0400 Body height 170.2 cm Sher Jules MD Work Phone: [facility] 03-11-2024 10:47-0400 Body mass index (BMI) [Ratio] 31.64 kg/m2 Sher Jules MD Work Phone: [facility] 03-11-2024 10:47-0400 Body temperature 97.59 [degF] Sher Jules MD Work Phone: [facility] 03-11-2024 10:47-0400 Body weight 91.63 kg Sher Jules MD Work Phone: [facility] 03-11-2024 10:47-0400 Diastolic blood pressure 52 mm[Hg] Sher Jules MD Work Phone: [facility] 03-11-2024 10:47-0400 Heart rate 48 /min Sher Jules MD Work Phone: [facility] 03-11-2024 10:47-0400 Respiratory rate 16 /min Sher Jules MD Work Phone: [facility] 03-11-2024 10:47-0400 Systolic blood pressure 108 mm[Hg] Sher Jules MD Work Phone: [facility] 02-19-2024 14:49-0400 Body mass index (BMI) [Ratio] 30.8 kg/m2 Dr. Sher Jules Work Phone: [facility] 02-19-2024 14:49-0400 Body weight 94.[address] Sher Jules Work Phone: [facility] 02-19-2024 14:49-0400 Diastolic blood pressure 68 mm[Hg] Dr. Sher Jules Work Phone: [facility] 02-19-2024 14:49-0400 Heart rate 84 /min Dr. Sher Jules Work Phone: [facility] 02-19-2024 14:49-0400 Respiratory rate 14 /min Dr. Sher Jules Work Phone: [facility] 02-19-2024 14:49-0400 SaO2% (BldA) [Mass fraction] 98 % Dr. Sher Jules Work Phone: [facility] 02-19-2024 14:49-0400 Systolic blood pressure 123 mm[Hg] Dr. Sher Jules Work Phone: [facility] 02-19-2024 14:44-0400 Body height 177.[address] Sher Jules Work Phone: [facility] 02-10-2024 14:57-0400 Body weight 94.8 kg Bib Patterson MD Work Phone: [facility] 02-10-2024 14:57-0400 Diastolic blood pressure 68 mm[Hg] Bib Patterson MD Work Phone: [facility] 02-10-2024 14:57-0400 Heart rate 84 /min Bib Patterson MD Work Phone: [facility] 02-10-2024 14:57-0400 SaO2% (BldA) [Mass fraction] 99 % Bib Patterson MD Work Phone: [facility] 02-10-2024 14:57-0400 Systolic blood pressure 123 mm[Hg] Bib Patterson MD Work Phone: [facility] 02-07-2024 13:35-0400 Body weight 93.76 kg Sher Jules MD Work Phone: [facility] 02-07-2024 13:35-0400 Diastolic blood pressure 64 mm[Hg] Sher Jules MD Work Phone: [facility] 02-07-2024 13:35-0400 Heart rate 56 /min Sher Jules MD Work Phone: [facility] 02-07-2024 13:35-0400 Respiratory rate 16 /min Sher Jules MD Work Phone: [facility] 02-07-2024 13:35-0400 SaO2% (BldA) [Mass fraction] 99 % Sher Jules MD Work Phone: [facility] 02-07-2024 13:35-0400 Systolic blood pressure 126 mm[Hg] Sher Jules MD Work Phone: [facility] 01-30-2024 12:10-0400 SaO2% (BldA) [Mass fraction] 98 % Dr. Sher Jules Work Phone: [facility] 01-30-2024 11:56-0400 Body temperature 98 [degF] Dr. Sher Jules Work Phone: [facility] 01-30-2024 11:56-0400 Diastolic blood pressure 74 mm[Hg] Dr. Sher Jules Work Phone: [facility] 01-30-2024 11:56-0400 Heart rate 59 /min Dr. Sher Jules Work Phone: [facility] 01-30-2024 11:56-0400 Respiratory rate 15 /min Dr. Sher Jules Work Phone: 9(622)988-529471 [place] [address] 01-30-2024 11:56-0400 Systolic blood pressure 137 mm[Hg] Dr. Sher Jules Work Phone: 3(320)569-570259 [place] [address] 01-30-2024 06:00-0400 Inhaled oxygen flow rate 2 L/min Dr. Sher Jules Work Phone: 3(920)786-630759 [place] [address] 01-30-2024 05:29-0400 Body mass index (BMI) [Ratio] 33.2 kg/m2 Dr. Sher Jules Work Phone: 3(089)477-023459 [place] [address] 01-30-2024 05:29-0400 Body weight 102.[address] Sher Jules Work Phone: 8(311)618-323159 [place] [address] 01-29-2024 11:54-0400 Body height 175.[address] Sher Jules Work Phone: 5(611)448-958959 [place] [address] 01-28-2024 22:00-0400 Diastolic blood pressure 55 mm[Hg] Dr. Sher Jules Work Phone: 1(858)064-609759 [place] [address] 01-28-2024 22:00-0400 Heart rate 82 /min Dr. Sher Jules Work Phone: 8(650)657-978159 [place] [address] 01-28-2024 22:00-0400 Inhaled oxygen flow rate 8 L/min Dr. Sher Jules Work Phone: 3(288)187-468659 [place] [address] 01-28-2024 22:00-0400 Respiratory rate 13 /min Dr. Sher Jules Work Phone: 3(958)406-650859 [place] [address] 01-28-2024 22:00-0400 SaO2% (BldA) [Mass fraction] 94 % Dr. Sher Jules Work Phone: 7(173)684-484059 [place] [address] 01-28-2024 22:00-0400 Systolic blood pressure 122 mm[Hg] Dr. Sher Jules Work Phone: 6(623)823-918259 [place] [address] 01-28-2024 18:57-0400 Body temperature 98.2 [degF] Dr. Sher Jules Work Phone: [facility] 01-28-2024 17:52-0400 Body height 177.[address] Sher Jules Work Phone: [facility] 01-28-2024 17:52-0400 Body mass index (BMI) [Ratio] 32.1 kg/m2 Dr. Sher Jules Work Phone: [facility] 01-28-2024 17:52-0400 Body weight 101.[address] Sher Jules Work Phone: [facility] 2024 14:58-0400 Body weight 99.34 kg Barb Maximo OFFICE MACHINE PUNCH OPERATOR.[employer] Work Phone: [facility] 2024 14:58-0400 Diastolic blood pressure 68 mm[Hg] Barb Maximo OFFICE MACHINE PUNCH OPERATOR.[employer] Work Phone: [facility] 2024 14:58-0400 Heart rate 70 /min Barb Maximo OFFICE MACHINE PUNCH OPERATOR.[employer] Work Phone: [facility] 2024 14:58-0400 Respiratory rate 14 /min Barb Maximo OFFICE MACHINE PUNCH OPERATOR.[employer] Work Phone: [facility] 2024 14:58-0400 Systolic blood pressure 136 mm[Hg] Barb Maximo OFFICE MACHINE PUNCH OPERATOR.[employer] Work Phone: [facility] 05-06-2023 15:18-0400 Body height 170.2 cm Bib Patterson MD Work Phone: [facility] 05-06-2023 15:18-0400 Body weight 101.24 kg Bib Patterson MD Work Phone: [facility] 05-06-2023 15:18-0400 Diastolic blood pressure 78 mm[Hg] Bib Patterson MD Work Phone: [facility] 05-06-2023 15:18-0400 Heart rate 59 /min Bib Patterson MD Work Phone: [facility] 05-06-2023 15:18-0400 SaO2% (BldA) [Mass fraction] 98 % Bib Patterson MD Work Phone: [facility] 05-06-2023 15:18-0400 Systolic blood pressure 156 mm[Hg] Bib Patterson MD Work Phone: [facility] 04-01-2023 10:21-0400 Body temperature 97.2 [degF] Trevor Robison MD Work Phone: [facility] 04-01-2023 10:21-0400 Body weight 101.7 kg Trevor Robison MD Work Phone: [facility] 04-01-2023 10:21-0400 Diastolic blood pressure 70 mm[Hg] Trevor Robison MD Work Phone: [facility] 04-01-2023 10:21-0400 Heart rate 60 /min Trevor Robison MD Work Phone: [facility] 04-01-2023 10:21-0400 SaO2% (BldA) [Mass fraction] 96 % Trevor Robison MD Work Phone: [facility] 04-01-2023 10:21-0400 Systolic blood pressure 132 mm[Hg] Trevor Robison MD Work Phone: [facility] 03-20-2023 14:11-0400 Diastolic blood pressure 56 mm[Hg] Thompson Monzon MD Work Phone: [facility] 03-20-2023 14:11-0400 Heart rate 60 /min Thompson Monzon MD Work Phone: [facility] 03-20-2023 14:11-0400 SaO2% (BldA) [Mass fraction] 95 % Thompson Monzon MD Work Phone: [facility] 03-20-2023 14:11-0400 Systolic blood pressure 140 mm[Hg] Thompson Monzon MD Work Phone: [facility] 02-06-2023 09:53-0400 Diastolic blood pressure 69 mm[Hg] Sher Jules MD Work Phone: [facility] 02-06-2023 09:53-0400 Heart rate 59 /min Sher Jules MD Work Phone: [facility] 02-06-2023 09:53-0400 Systolic blood pressure 154 mm[Hg] Sher Jules MD Work Phone: [facility] 02-06-2023 09:51-0400 Body weight 101.61 kg Sher Jules MD Work Phone: [facility] 02-06-2023 09:51-0400 Respiratory rate 16 /min Sher Jules MD Work Phone: [facility] 01-15-2023 09:03-0400 Body height 177.8 cm Nargis Yin DO Work Phone: [facility] 01-15-2023 09:03-0400 Body weight 102.51 kg Nargis Yin DO Work Phone: [facility] 01-15-2023 09:03-0400 Diastolic blood pressure 64 mm[Hg] Nargis Yin DO Work Phone: [facility] 01-15-2023 09:03-0400 Heart rate 60 /min Nargis Yin DO Work Phone: [facility] 01-15-2023 09:03-0400 SaO2% (BldA) [Mass fraction] 97 % Nargis Yin DO Work Phone: [facility] 01-15-2023 09:03-0400 Systolic blood pressure 132 mm[Hg] Nargis Yin DO Work Phone: [facility] 10-03-2022 13:16-0500 Diastolic blood pressure 70 mm[Hg] Jules Dukes MD Work Phone: [facility] 10-03-2022 13:16-0500 Systolic blood pressure 140 mm[Hg] Jules Dukes MD Work Phone: [facility] 10-03-2022 13:02-0500 Body height 177.8 cm Jules Dukes MD Work Phone: [facility] 10-03-2022 13:02-0500 Body weight 103.87 kg Jules Dukes MD Work Phone: [facility] 10-03-2022 13:02-0500 Heart rate 66 /min Jules Dukes MD Work Phone: [facility] 10-03-2022 13:02-0500 SaO2% (BldA) [Mass fraction] 96 % Jlues Dukes MD Work Phone: [facility] 10-01-2022 09:21-0500 Body height 177.8 cm Trevor Robison MD Work Phone: [facility] 10-01-2022 09:21-0500 Body weight 104.78 kg Trevor Robison MD Work Phone: [facility] 10-01-2022 09:21-0500 Diastolic blood pressure 63 mm[Hg] Trevor Robison MD Work Phone: [facility] 10-01-2022 09:21-0500 Heart rate 75 /min Trevor Robison MD Work Phone: [facility] 10-01-2022 09:21-0500 Systolic blood pressure 124 mm[Hg] Trevor Robison MD Work Phone: [facility] 09-05-2022 15:24-0500 Body height 177.8 cm Jules Dukes MD Work Phone: [facility] 09-05-2022 15:24-0500 Body weight 106.14 kg Jules Dukes MD Work Phone: [facility] 09-05-2022 15:24-0500 Diastolic blood pressure 74 mm[Hg] Jules Dukes MD Work Phone: [facility] 09-05-2022 15:24-0500 Heart rate 66 /min Jules Dukes MD Work Phone: [facility] 09-05-2022 15:24-0500 Respiratory rate 16 /min Jules Dukes MD Work Phone: [facility] 09-05-2022 15:24-0500 SaO2% (BldA) [Mass fraction] 96 % Jules Dukes MD Work Phone: [facility] 09-05-2022 15:24-0500 Systolic blood pressure 186 mm[Hg] Jules Dukes MD Work Phone: [facility] 07-18-2022 09:46-0400 Diastolic blood pressure 70 mm[Hg] Barb Older OFFICE MACHINE PUNCH OPERATOR.[employer] Work Phone: [facility] 07-18-2022 09:46-0400 Heart rate 57 /min Barb Older OFFICE MACHINE PUNCH OPERATOR.[employer] Work Phone: [facility] 07-18-2022 09:46-0400 Systolic blood pressure 126 mm[Hg] Barb Older OFFICE MACHINE PUNCH OPERATOR.[employer] Work Phone: [facility] 07-18-2022 09:18-0400 Body temperature 96.91 [degF] Barb Older OFFICE MACHINE PUNCH OPERATOR.[employer] Work Phone: [facility] 07-18-2022 09:18-0400 Body weight 103.87 kg Barb Older OFFICE MACHINE PUNCH OPERATOR.[employer] Work Phone: [facility] 06-28-2022 10:55-0400 Diastolic blood pressure 67 mm[Hg] Mi Nurse Work Phone: [facility] 06-28-2022 10:55-0400 Heart rate 57 /min Mi Nurse Work Phone: [facility] 06-28-2022 10:55-0400 Systolic blood pressure 143 mm[Hg] Mi Nurse Work Phone: [facility] 06-11-2022 18:59-0400 Diastolic blood pressure 68 mm[Hg] Sher Jules MD Work Phone: [facility] 06-11-2022 18:59-0400 Heart rate 57 /min Sher Jules MD Work Phone: [facility] 06-11-2022 18:59-0400 Systolic blood pressure 172 mm[Hg] Sher Jules MD Work Phone: [facility] 06-11-2022 18:41-0400 Body temperature 97.3 [degF] Sher Jules MD Work Phone: [facility] 06-11-2022 18:41-0400 Body weight 105.14 kg Sher Jules MD Work Phone: [facility] 06-11-2022 18:41-0400 Respiratory rate 18 /min Sher Jules MD Work Phone: [facility] 05-30-2022 15:55-0400 Body temperature 98 [degF] Dr. Sher Jules Work Phone: [facility] Work Phone: 05-30-2022 15:55-0400 Diastolic blood pressure 63 mm[Hg] Dr. Sher Jules Work Phone: [facility] Work Phone: 05-30-2022 15:55-0400 Heart rate 83 /min Dr. Sher Jules Work Phone: [facility] Work Phone: 05-30-2022 15:55-0400 Respiratory rate 16 /min Dr. Sher Jules Work Phone: [facility] Work Phone: 05-30-2022 15:55-0400 SaO2% (BldA) [Mass fraction] 96 % Dr. Sher Jules Work Phone: [facility] Work Phone: 05-30-2022 15:55-0400 Systolic blood pressure 155 mm[Hg] Dr. Sher Jules Work Phone: [facility] Work Phone: 05-30-2022 09:36-0400 Body height 177.[address] Sher Jules Work Phone: [facility] Work Phone: 05-30-2022 09:36-0400 Body weight 104.[address] Sher Jules Work Phone: [facility] Work Phone: 05-30-2022 08:50-0400 Body mass index (BMI) [Ratio] 33 kg/m2 Dr. Sher Jules Work Phone: [facility] Work Phone: 05-30-2022 01:19-0400 Body height 177.8 cm [facility] Work Phone: 05-30-2022 01:19-0400 Body mass index (BMI) [Ratio] 33 kg/m2 [facility] Work Phone: 05-30-2022 01:19-0400 Body weight 104.6 kg [facility] Work Phone: 05-30-2022 00:47-0400 Body temperature 97.8 [degF] [facility] Work Phone: 05-30-2022 00:47-0400 Diastolic blood pressure 85 mm[Hg] [facility] Work Phone: 05-30-2022 00:47-0400 Heart rate 70 /min [facility] Work Phone: 05-30-2022 00:47-0400 Respiratory rate 16 /min [facility] Work Phone: 05-30-2022 00:47-0400 SaO2% (BldA) [Mass fraction] 94 % [facility] Work Phone: 05-30-2022 00:47-0400 Systolic blood pressure 171 mm[Hg] [facility] Work Phone: 03-27-2022 08:22-0400 Body height 172 cm Nargis Yin zhouwu Work Phone: [facility] 03-27-2022 08:22-0400 Body weight 105.23 kg Nargis Yin DO Work Phone: [facility] 03-27-2022 08:22-0400 Diastolic blood pressure 58 mm[Hg] Nargis Yin DO Work Phone: [facility] 03-27-2022 08:22-0400 Heart rate 62 /min Nargis Yin DO Work Phone: [facility] 03-27-2022 08:22-0400 SaO2% (BldA) [Mass fraction] 96 % Nargis Yin DO Work Phone: [facility] 03-27-2022 08:22-0400 Systolic blood pressure 142 mm[Hg] Nargis Yin DO Work Phone: [facility] Encounters Encounter Date Encounter Type Care Provider Facility Start: 05-07-2025 End: 05-07-[address] Nic Rodriguez MD -[facility] Work Phone: Start: 05-07-2025 End: 05-07-[address] Sher Jules MD Work Phone: [facility] Start: 05-06-2025 End: 05-06-[address] Nain Segundo MD -[facility] Start: 05-06-2025 End: 05-06-[address] Sher Jules MD Work Phone: -[facility] Start: 04-29-2025 End: 04-30-2025 Emergency department patient visit Dr. Sher Jules MD Work Phone: -Emergency Department Work Phone: Start: 04-22-2025 End: 04-22-2025 Patient encounter procedure Elvie Monterroso APRN.H[employer] F[employer]ER Work Phone: General Surgery Comment on above: Gastritis and duoden itis (Primary Dx); Gastroesophageal reflux disease with esophagitis without hemorrhage; Adenomatous polyp of colon, unspecified part of colon Start: 04-22-2025 End: 04-22-2025 ambulatory SHER JULES Facility:[facility] Start: 04-14-2025 ambulatory SHER bhagat:[facility] Start: 04-14-2025 End: 04-14-2025 Subsequent hospital visit by physician Nikos Rivera MD Work Phone: Ambulatory Surgery Comment on above: Anemia, unspecified type [D64.9] Start: 04-06-2025 End: 04-06-2025 Patient encounter procedure Nargis Yin DO Work Phone: Vascular Surgery Comment on above: Peripheral arterial disease (Primary Dx) Start: 04-06-2025 End: 04-06-2025 ambulatory NARGIS YIN Facility:[facility] Start: 04-01-2025 End: 04-01-2025 Follow-up encounter Sher Jules MD Work Phone: [facility] [place] Start: 03-31-2025 End: 03-31-2025 ambulatory SHER JULES Facility:[facility] Start: 03-18-2025 End: 03-18-2025 ambulatory ELVIE MONTERROSO Facility:[facility] Start: 03-16-2025 End: 03-16-2025 ambulatory SHER JULES Facility:[facility] Start: 03-16-2025 End: 03-16-2025 ambulatory SHER JULES Facility:[facility] Start: 03-16-2025 Patient encounter procedure BARB SUGGS [facility] Start: 03-15-2025 End: 03-15-2025 ambulatory SHER JULES Facility:[facility] Start: 03-12-2025 Non-patient / Non-visit Naz MONAHAN -[facility] Work Phone: Start: 03-12-2025 ambulatory Naz Cox [facility] Start: 03-11-2025 Non-patient / Non-visit Dr. Rubio head MD -[facility] Start: 03-11-2025 End: 03-11-[address] Sher Jules MD Work Phone: [facility] Work Phone: Start: 03-11-2025 End: 03-11-[address] Rubio Simeon MD -Cardiovascular Services Work Phone: Start: 03-11-2025 End: 03-11-[address] [facility] Facility:[facility] Start: 03-04-2025 End: 03-04-2025 Refill Bib [...] Start: 02-23-2025 End: 02-23-2025 ambulatory GOMEZ MCCABEMIGUEL Facility:[facility] Start: 02-11-2025 End: 02-11-[address] Rubio Simeon MD -[facility] Work Phone: Start: 02-11-2025 End: 02-11-2025 ambulatory Sher Jules Facility[facility] Start: 02-01-2025 End: 02-01-2025 Refill Sher Jules MD Work Phone: Internal [facility] [place] Comment on above: Refill Request Start: 12-08-2024 ambulatory [facility] Facility:[facility] Start: 11-20-2024 End: 11-27-2024 ambulatory [facility] Facility:[facility] Start: 11-20-2024 End: 11-27-[address] Rubio Simeon MD -Cardiac Rehab Work Phone: Start: 11-19-2024 End: 11-19-2024 ambulatory SHER JULES Facility:[facility] Start: 11-19-2024 End: 11-19-2024 Patient encounter procedure Gomez Schwab Work Phone: Podiatry Comment on above: Onychomycosis (Prima ry Dx); Pain in toe of left foot; Pain in toe of right foot; Diabetic polyneuropathy associated with type 2 diabetes mellitus (HCC); PAD (peripheral artery disease) (HCC) Start: 11-13-2024 End: 11-13-2024 Office outpatient visit 25 minutes Sher Jules MD Work Phone: Internal Medicine [place] Comment on above: Diabetic peripheral neuropathy (HCC) (Primary Dx); Essential hypertension; Anemia, unspecified type; Well controlled type 2 diabetes mellitus with neurological manifestations (HCC); S/P drug eluting coronary stent placement Start: 11-13-2024 End: 11-13-2024 ambulatory SHER JULES Facility:[facility] Start: 11-11-2024 End: 11-11-2024 ambulatory Palak Rosales LPN [facility] [place] Start: 10-26-2024 End: 10-27-2024 ambulatory Rubio Blanco Facility:[facility] Start: 10-19-2024 End: 10-20-2024 Orders Only Sher Jules MD Work Phone: Internal Medicine [place] Comment on above: Hyponatremia (Primar y Dx); Anemia, unspecified type Start: 10-14-2024 ambulatory Karl Wan Facility:[facility] Start: 10-14-2024 End: 10-14-2024 ambulatory Rubio Blanco Facility:[facility] Start: 10-12-2024 End: 10-12-2024 ambulatory Tootie Chu RIFLE CASE REPAIRER Facility:[facility] Start: 10-12-2024 End: 10-12-2024 ambulatory Tootie Chu RIFLE CASE REPAIRER Facility:[facility] Start: 10-06-2024 End: 10-06-2024 ambulatory SHER JULES Facility:[facility] Start: 09-30-2024 End: 09-30-2024 Orders Only oXchitl Solano APRN - HAY FARMER Work Phone: [facility] Cardiology [facility] Comment on above: Coronary artery dise ase involving [place] coronary artery of [place] heart without angina pectoris (Primary Dx); Primary hypertension Stented coronary art martina (Primary Dx); Coronary artery disease involving [place] coronary artery of [place] heart without angina pectoris; Angina pectoris, unstable (CMS/HCC) (HCC) Start: 09-29-2024 End: 09-29-2024 ambulatory Bárbara Burton APRZunilda Whiteside CNP Work Phone: [facility] Start: 09-28-2024 End: 09-28-2024 ambulatory Rubio Blanco Facility:[facility] Start: 09-23-2024 End: 09-23-2024 ambulatory Rubio Blanco [facility] Start: 09-16-2024 End: 09-16-2024 Office outpatient new 45 minutes Sergei Collins MD Work Phone: [facility] Comment on above: Shortness of breath (Primary Dx); Coronary artery disease involving [place] coronary artery of [place] heart without angina pectoris; Stented coronary artery; S/P CABG x 3; Family history of chronic ischemic heart disease; Diabetes mellitus type 2 in nonobese (CMS/HCC) ([facility]); Primary hypertension; Mixed hyperlipidemia Start: 09-16-2024 End: 09-16-2024 ambulatory SERGEI KARINA [facility] Start: 09-15-2024 End: 09-15-2024 Telephone encounter Sher Jules MD Work Phone: Internal Medicine [place] Comment on above: Medication Update Start: 09-14-2024 End: 09-15-2024 Telephone encounter Sher Jules MD Work Phone: Internal Medicine [place] Comment on above: Results Start: 09-14-2024 End: 09-14-2024 ambulatory Rubio Blanco Facility[facility] Start: 09-13-2024 End: 09-13-2024 Orders Only Sher Jules MD Work Phone: Internal Medicine [place] Comment on above: Hyponatremia (Primar y Dx); Hyperkalemia; Anemia, unspecified type Start: 09-11-2024 End: 09-11-2024 ambulatory SHER JULES Facility:[facility] Start: 09-11-2024 End: 09-11-2024 Office outpatient visit 25 minutes Sher Jules MD Work Phone: Internal Medicine [place] Comment on above: Coronary artery dise ase involving [place] coronary artery of [place] heart without angina pectoris (Primary Dx); Stented coronary artery; Essential hypertension; Hyperlipidemia with target LDL less than 70; Well controlled type 2 diabetes mellitus with neurological manifestations (HCC) Start: 07-03-2024 ambulatory Sher Jules Facili ty:[facility] Start: 07-02-2024 End: 07-03-2024 Refill Barb Suggs APRN.HAY FARMER Work Phone: Internal Medicine [place] Comment on above: Refill Request Start: 06-30-2024 [...] Start: 06-26-2024 End: 06-26-2024 ambulatory GOMEZ SCHWAB Facility:[facility] Start: 06-23-2024 End: 06-23-2024 ambulatory Sher Jules Facility:[facility] Start: 06-16-2024 End: 06-16-2024 Refill Barb Suggs APRN.HAY FARMER Work Phone: Internal Medicine [place] Comment on above: Refill Request Start: 06-08-2024 ambulatory Sher Jules Facili ty:[facility] Start: 06-08-2024 End: 06-08-2024 ambulatory Sher Jules Facility:[facility] Start: 06-07-2024 ambulatory Sher Jules Facili ty:[facility] Start: 05-28-2024 End: 05-28-2024 ambulatory Sher Jules Facility:[facility] Start: 05-27-2024 End: 05-27-2024 ambulatory Sher Jules Facility:[facility] Start: 04-07-2024 End: 04-07-2024 Patient encounter procedure Nargis Yin DO Work Phone: Vascular Surgery Comment on above: Peripheral arterial disease (HCC) (Primary Dx) Start: 04-06-2024 End: 04-06-2024 Patient encounter procedure Bib Patterson MD Work Phone: Cardiology Comment on above: Essential hypertensi on (Primary Dx); Hyperlipidemia with target LDL less than 70; Hx of CABG; Coronary artery disease involving [place] coronary artery of [place] heart without angina pectoris Start: 04-06-2024 End: 04-06-2024 Patient encounter procedure Gem Bass MD Work Phone: General Surgery Comment on above: Special screening fo r malignant neoplasms, colon; History of colonic polyps; Coronary artery disease involving [place] coronary artery of [place] heart, unspecified whether angina present Start: 03-13-2024 End: 03-13-2024 Patient encounter procedure Gomez Schwab Work Phone: Podiatry Comment on above: Onychomycosis (Prima ry Dx); Pain in toe of left foot; Pain in toe of right foot; PAD (peripheral artery disease) (HCC); Diabetic polyneuropathy associated with type 2 diabetes mellitus (HCC) Start: 03-12-2024 [facility] ili:[facility] Start: 03-12-2024 [facility] Start: 03-12-2024 End: 03-12-2024 Subsequent hospital visit by physician [facility] Work Phone: Cardiology Lab Comment on above: CORONARY ARTERIOSCLE ROSIS Start: 03-12-2024 End: 03-12-2024 Subsequent hospital visit by physician [facility] Work Phone: Molecular Imaging Comment [...] artery disease) (HCC); Coronary artery disease involving [place] coronary artery of [place] heart without angina pectoris; Hyperlipidemia with target LDL less than 70; Benign neoplasm of colon, unspecified part of colon Start: 02-25-2024 Refill Sher lea MD Work Phone: Internal Medicine [place] Comment on above: Refill Request Start: 02-24-2024 End: 02-25-[address] Sher Jules Work Phone: [facility] Work Phone: Start: 02-24-2024 End: 02-25-[address] Sher Jules Work Phone: [facility] Work Phone: Start: 02-24-[address] Jaylon Jules Work Phone: [facility] Work Phone: Start: 02-19-2024 End: 02-19-[address] Sher Jules Work Phone: [facility] Work Phone: Start: 02-19-2024 End: 02-19-[address] Sher Jules Work Phone: [facility] Work Phone: Start: 02-10-2024 End: 02-10-2024 Patient encounter procedure Bib Patterson MD Work Phone: Cardiology Comment on above: Coronary arterioscle rosis after percutaneous transluminal coronary angioplasty (PTCA) (Primary Dx); Essential hypertension; PAD (peripheral artery disease) ([facility]) Start: 02-07-2024 End: 02-07-2024 Patient encounter procedure Sher Jules MD Work Phone: Internal [facility] Comment on above: Non-STEMI (non-ST el evated myocardial infarction) ([facility]) (Primary Dx); S/P CABG x 3; Essential hypertension; Hyperlipidemia with target LDL less than 70; Well controlled type 2 diabetes mellitus with neurological manifestations (HCC); PAD (peripheral artery disease) (HCC); Abnormality of lung on CXR; Obesity, Class I, BMI 30-34.9 Start: 02-03-2024 Ad[facility] Sher Jules MD Work Phone: Ambulatory Surgery Comment on above: colorectal cancer sc reening Start: 02-03-2024 ambulatory Sher lea MD Work Phone: Ambulatory Surgery Start: 01-31-2024 Patient Outreach Sher ace MD Work Phone: Internal Medicine [place] Comment on above: Transition Of Care Start: 01-30-2024 Telephone encounter Bib Patterson MD Work Phone: Cardiology Comment on above: PT HOSPITALIZED Start: 01-30-2024 Non-patient / Non-visit Dr. Maria E Jules Work Phone: [facility] Start: 01-30-2024 Non-patient / Non-visit Dr. Maria E Jules Work Phone: [facility] Work Phone: Start: 01-29-2024 Non-patient / Non-visit Dr. Maria E Jules Work Phone: [facility] Work Phone: Start: 01-29-2024 Non-patient / Non-visit Dr. Maria E Jules Work Phone: [facility] Start: 01-28-2024 End: 01-30-2024 Evaluation and management of inpatient Dr. Sher Jules Work Phone: [facility]Intensive Care Unit Work Phone: Start: 01-28-2024 Non-patient / Non-visit Dr. Maria E Jules Work Phone: [facility] Work Phone: Start: 2024 [...] ambulatory Veronica Sierra [facility] Comment on above: Population Health [facility] ([facility]) Start: 08-09-2023 End: 08-09-2023 Patient encounter procedure Sher Jules MD Work Phone: Internal Medicine [place] Comment on above: Obesity, Class II, B ID [id number] (Primary Dx); Coronary artery disease involving [place] coronary artery of [place] heart without angina pectoris; PAD (peripheral artery [...] disease (Primary Dx); Coronary artery disease involving [place] coronary artery of [place] heart without angina pectoris; Hx of CABG; [...] 02-14-2023 Subsequent hospital visit by physician [facility] Radiology Comment on above: Peripheral vascular disease (HCC) [I73.9] Start: 02-06-2023 End: 02-06-2023 Patient encounter procedure Sher Jules MD Work Phone: Internal Medicine [place] Comment on above: Well controlled type 2 diabetes mellitus with neurological manifestations (HCC) (Primary Dx); Essential hypertension; Hyperlipidemia with target LDL less than 70; PAD (peripheral artery disease) (HCC) Start: 02-04-2023 Telephone encounter Sher armas MD Work Phone: Internal Medicine [place] Comment on above: Med Change Request Start: 01-31-2023 Patient Msg [facility] Provider Internal [facility] [place] Comment on above: Refill request Start: 01-30-2023 Refill Barb Older OFFICE MACHINE PUNCH OPERATOR .HAY FARMER Work Phone: Family Medicine [place] Comment on above: Refill Request Start: 01-16-2023 Refill Barb Older OFFICE MACHINE PUNCH OPERATOR .HAY FARMER Work Phone: Family Medicine [place] Comment on above: Refill Request Start: 01-15-2023 [...] Medication Request Start: 10-23-2022 Refill Tara Older OFFICE MACHINE PUNCH OPERATOR .HAY FARMER Work Phone: Internal Medicine [place] Comment on above: Refill Request Start: 10-10-2022 ambulatory Veronica Sierra [facility] Comment on above: Population Health Na [facility] Outreach ([facility] [place] [facility]) Start: 10-03-2022 End: 10-03-2022 Patient encounter procedure Jules Dukes MD Work Phone: Cardiology Comment on above: Primary hypertension (Primary Dx); Coronary artery disease involving [place] coronary artery of [place] heart without angina pectoris; Hx of CABG; PAD (peripheral artery disease) (HCC) Start: 10-01-2022 End: 10-01-2022 Patient encounter procedure Trevor Robison MD Work Phone: Neurology Comment on above: 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) Start: 09-24-2022 End: 09-24-2022 ambulatory Kathie Garcia APRN.BREAD WRAPPER OPERATOR Work Phone: Internal Medicine [place] Comment on above: COVID-19 virus infec tion (Primary Dx) Start: 09-24-2022 End: 09-24-2022 Telemedicine consultation with patient Kathie Garcia APRN.BREAD WRAPPER OPERATOR Work Phone: [facility] [place] Start: 09-11-2022 End: [...] on above: Coronary artery dise ase involving [place] coronary artery of [place] heart without angina pectoris (Primary Dx); Essential hypertension; S/P CABG x 3; Central retinal artery occlusion of left eye Start: 07-18-2022 End: 07-18-2022 Patient encounter procedure Barb Leon APRNBradHAY FARMER Work Phone: Internal Medicine [place] Comment on above: Essential hypertensi on (Primary [...] Sher lea MD Work Phone: Internal Medicine [place] Comment on above: Refill Request Start: 06-11-2022 End: 06-11-2022 Patient encounter procedure Sher Jules MD Work Phone: Internal Medicine [place] Comment on above: Hyperlipidemia with target LDL less than 70 (Primary Dx); Essential hypertension; Well controlled type 2 diabetes mellitus with neurological manifestations (HCC); Branch retinal artery occlusion, left; S/P CABG x 3 Start: 06-05-2022 Telephone encounter Sher armas MD Work Phone: Internal [facility] Comment on above: Appointment Start: 05-30-2022 Non-patient / Non-visit Dr. Maria E Jules Work Phone: [facility] Start: 05-30-2022 Non-patient / Non-visit Dr. Maria E Jules Work Phone: [facility] Start: 05-30-2022 End: 05-30-2022 Evaluation and management of inpatient [facility] Care [facility] Start: 05-29-2022 Telephone encounter Sher armas MD Work Phone: [facility] Comment on above: Dr. Christian gil (Computer Systems Hardware Analyst) Start: 05-02-2022 End: 05-02-2022 Patient encounter procedure [...] Refill Sher lea MD Work Phone: Internal [facility] Comment on above: Refill Request Procedures Date Procedure Procedure Detail Performing Clinician Start: 05-06-2025 Plain x-ray of hand Dr. Sher Jules MD Work Phone: Start: 04-29-2025 CT of head without contrast Dr. Sher Jules MD Work Phone: Start: 04-14-2025 Colonoscopy flx dx w/collj spec when pfrmd Elvie Monterroso OFFICE MACHINE PUNCH OPERATOR.HAY FARMER Work Phone: Start: 04-14-2025 Esophagogastroduodenoscopy transoral diagnostic Elvie Monterroso OFFICE MACHINE PUNCH OPERATOR.HAY FARMER Work Phone: Start: 04-14-2025 Gluc bld gluc [...] serum plasma/whole blood Lawanda on B [place] OFFICE MACHINE PUNCH OPERATOR - HAY FARMER Work Phone: Start: 09-16-2024 Ecg routine ecg w/least 12 lds w/i&r Sergei Collins MD Work Phone: Start: 03-12-2024 Myocardial spect multiple studies Bib Patterson MD Work Phone: Start: 03-11-2024 Adult depression screening assessment Barb Suggs OFFICE MACHINE PUNCH OPERATOR.HAY FARMER Work Phone: Start: 01-28-2024 CT angiography of chest with contrast Dr. Sher Jules Work Phone: Start: 01-28-2024 Plain chest X-ray Dr. Sher Jules Work Phone: Start: 2024 Radex wrist complete minimum 3 views Barb Suggs OFFICE MACHINE PUNCH OPERATOR.HAY FARMER Work Phone: Start: 10-31-2023 Cul bact xcpt urine blood/stool aerobic isol Gomez Testke Work Phone: Start: 02-14-2023 Cta abdl aorta&bi iliofem w/contrast&postp Nargis D Yin DO Work Phone: Start: 09-05-2022 Ecg routine ecg w/least 12 lds i&r only [facility] Provider Start: 07-18-2022 INFLUENZA SEASONAL QUADRIVALENT HIGH DOSE AGE 65+ Barb Older OFFICE MACHINE PUNCH OPERATOR.HAY FARMER Work Phone: Start: 07-18-2022 Adult depression screening assessment Barb Older OFFICE MACHINE PUNCH OPERATOR.HAY FARMER Work Phone: Start: 05-30-2022 MRI of brain [...] DTaP/Tdap/Td Vaccines (3 - Td or Tdap) [facility] Start: 08-04-2032 [facility] Start: 04-14-2030 Screening for malignant neoplasm of colon [facility] Start: 04-06-2026 BP Controlled (<130/80) BP Controlled (<130/80) [facility] Start: 04-05-2026 End: 04-05-2026 Patient encounter procedure Vasculary Ramirez mario Comment on above: Peripheral arterial disease [I73.9] 1 year follow up aft er testing Start: 03-29-2026 Glaucoma screening Dilated Retinal Exam [facility] Start: 03-18-2026 BP Controlled (<130/80) BP Controlled (<130/80) [facility] Start: 03-17-2026 Screening for malignant neoplasm of colon Fecal Occult Blood [facility] Start: 03-16-2026 Annual PCP Team Chronic Disease Visit Annual PCP Team Chronic Disease Visit [facility] Start: 03-16-2026 Anxiety Screening Anxiety Screening [facility] Start: 03-16-2026 Depression Screening Depression Screening [facility] Start: 03-16-2026 Medicare Annual Wellness Visit Medicare Annual Wellness Visit [facility] Start: 11-13-2025 Annual PCP Team Chronic Disease Visit Annual PCP Team Chronic Disease Visit [facility] Start: 09-16-2025 End: 09-16-2025 Patient encounter procedure 09/16/2025 9:40 AM EST Office Visit Internal Medicine [place] [address] [place] [place] [id number] Sher Jules MD [address] [place] [address] follow up 6 months Internal Medicine [place] Comment on above: follow up 6 months Start: 09-15-2025 Hemoglobin A1c measurement HbA1C [facility] Start: 09-11-2025 Annual PCP Team Chronic Disease Visit Annual PCP Team Chronic Disease Visit [facility] Start: 09-11-2025 Diabetes: Urine Albumin-Creatinine Ratio for [facility] Diabetes: Urine Albumin-Creatinine Ratio for [facility] Start: 09-11-2025 Diabetic foot examination Diabetic Foot Exam [facility] Start: 09-11-2025 Hemoglobin A1c measurement Diabetes: Hemoglobin A1C [facility] Start: 09-11-2025 Hepatitis B screening Urine Albumin:Creatinine Ratio [facility] Start: 09-11-2025 Hepatitis B surface antibody level LDL Cholesterol [facility] Start: 05-28-2025 End: 05-28-2025 Patient encounter procedure 05/28/2025 10:00 AM EDT Office Visit Podiatry [address] [place] [address] Gomez Schwab [address] [place] [address] 3 month follow up nail care Podiatry Comment on above: 3 month follow up nail care Start: 05-06-2025 Plain x-ray of hand Hand Min 3 Views [facility] Start: 05-06-2025 XR Hand GE 3 Views [facility] Start: 04-30-2025 [facility] Start: 04-29-2025 Simple rpr scalp/neck/ax/genit/trunk 7.6-12.5cm RPR S/N/AX/GEN/TRK7.6-12.5CM [facility] Start: 04-22-2025 End: 04-22-2025 Patient encounter procedure 04/22/2025 10:30 AM EDT Office Visit General Surgery [address] [place] [address] Elvie Monterroso, BOBBY.HAY FARMER [address] [place] [address] 04-14 EGD & Colonoscopy follow up General Surgery Comment on above: 04-14 EGD & Colonoscopy follow up Start: 04-14-2025 End: 04-14-2025 Patient encounter procedure 04/14/2025 10:30 AM EDT Appointment Ambulatory Surgery [address] [place] [address] Nikos Rivera MD [address] [place] [address] Cardiac clearance recieved Ambulatory Surgery Comment on above: Cardiac clearance recieved Start: 04-06-2025 End: 04-06-2025 Patient encounter procedure Vasculary [facility] Comment on above: Peripheral arterial disease (HCC) [I73.9 ] 1 year follow up Start: 03-27-2025 Glaucoma screening Dilated Retinal Exam [facility] Start: 03-18-2025 Screening for malignant neoplasm of colon Colorectal Cancer Screening [facility] Start: 03-16-2025 End: 03-16-2025 Patient encounter procedure 03/16/2025 10:00 AM EDT Office Visit Internal Medicine [place] [address] [place] [address] Barb Suggs, OFFICE MACHINE PUNCH OPERATOR.HAY FARMER [address] [place] [address] wellness visit [facility] Medicine [place] Comment on above: wellness visit Start: 03-11-2025 Annual PCP Team Chronic Disease Visit Annual PCP Team Chronic Disease Visit [facility] Start: 03-11-2025 Anxiety Screening Anxiety Screening [facility] Start: 03-11-2025 BP Controlled (<130/80) BP Controlled (<130/80) [facility] Start: 03-11-2025 Depression Screening Depression Screening [facility] Start: 03-11-2025 Hemoglobin A1c measurement HbA1C [facility] mal Start: 03-01-2025 End: 05-31-2025 Basic metabolic 2000 panel - Serum or Plasma BASIC METABOLIC PANEL Lab Routine Well controlled type 2 diabetes mellitus with neurological manifestations (HCC) Expected: 03/01/2025, Expires: 05/31/2025 [facility] Comment on above: Expected: 03/01/2025, Expires: Start: 03-01-2025 End: 05-31-2025 CBC panel - Blood by Automated count COMPLETE BLOOD COUNT Lab Routine Anemia, unspecified type Expected: 03/01/2025, Expires: 05/31/2025 [facility] Work Phone: Comment on above: Expected: 03/01/2025, Expires: Start: 03-01-2025 End: 05-31-2025 Hemoglobin A1c in Blood HEMOGLOBIN A1C Lab Routine Well controlled type 2 diabetes mellitus with neurological manifestations (HCC) Expected: 03/01/2025, Expires: 05/31/2025 [facility] Comment on above: Expected: 03/01/2025, Expires: Start: 02-23-2025 End: 02-23-2025 Patient encounter procedure Podiatry Comment on above: 3 month follow up Start: 02-09-2025 BP Controlled (<130/80) BP Controlled (<130/80) [facility] Start: 02-06-2025 Annual PCP Team Chronic Disease Visit Annual PCP Team Chronic Disease Visit [facility] Start: 02-06-2025 BP Controlled (<130/80) BP Controlled (<130/80) [facility] Start: 01-26-2025 Annual PCP Team Chronic Disease Visit Annual PCP Team Chronic Disease Visit [facility] Start: 11-19-2024 End: 11-19-2024 Patient encounter procedure 11/19/2024 11:15 AM EST Office Visit Podiatry [address] [place] [address] Gomez Schwab [address] [address] Regular check up and nail trim Podiatry Comment on above: Regular check up and nail trim Start: 11-16-2024 End: 11-16-2024 Patient encounter procedure 11/16/2024 8:40 AM EST Office Visit Cardiology [address] [place] [id number] Bib Patterson MD [address] [facility], [address] [place] [address] 6 month follow up Cardiology Comment on above: 6 month follow up Start: 11-13-2024 End: 11-13-2024 Patient encounter procedure 11/13/2024 1:20 PM EST Office Visit Internal Medicine [place] [address] [place] [address] Sher Jules MD [address] [place] [address] Patient Outreach, follow-up - BP, 2 stents placed [facility] [place] Comment on above: Patient Outreach, follow-up - BP, 2 sten ts placed Start: 11-02-2024 End: 02-01-2025 Basic metabolic 2000 panel - Serum or Plasma BASIC METABOLIC PANEL Lab Routine Hyponatremia Expected: 11/02/2024, Expires: 02/01/2025 [facility] Comment on above: Expected: 11/02/2024, Expires: Start: 11-02-2024 End: 02-01-2025 CBC panel - Blood by Automated count COMPLETE BLOOD COUNT Lab Routine Anemia, unspecified type Expected: 11/02/2024, Expires: 02/01/2025 [facility] Work Phone: Comment on above: Expected: 11/02/2024, Expires: Start: 10-28-2024 Advance Directive Discussion Advance Directive Discussion [facility] Start: 10-07-2024 End: 09-30-2025 Basic metabolic 1998 panel - Serum or Plasma Basic metabolic panel Lab Routine Coronary artery disease involving [place] coronary artery of [place] heart without angina pectoris Primary hypertension Expected: 10/07/2024 (Approximate), Expires: 09/30/2025 [facility] Work Phone: Comment on above: Expected: 10/07/2024 (Approximate), Expi res: 09/30/2025 Start: 10-07-2024 End: 09-30-2025 CBC W Auto Differential panel - Blood CBC auto differential Lab Routine Coronary artery disease involving [place] coronary artery of [place] heart without angina pectoris Primary hypertension Expected: 10/07/2024 (Approximate), Expires: 09/30/2025 [facility] Comment on above: Expected: 10/07/2024 (Approximate), Expi res: 09/30/2025 Start: 10-02-2024 End: 10-02-2024 Patient encounter procedure Podiatry Comment on above: 3 month follow up nail care Start: 09-30-2024 End: 09-30-2024 Admission to same day surgery center 09/30/2024 11:00 AM EST - 09/30/2024 12:00 PM EST Surgery [facility] [address] [place] [id number] Sergei Collins MD [address] [place] [id number] Left heart cath / coronary angiography w grafts [facility] Comment on above: Left heart cath / coronary angiography w grafts Start: 09-30-2024 Subsequent hospital visit by physician [facility] Comment on above: Coronary artery disease involving [place] coronary artery of [place] heart without angina pectoris Start: 09-27-2024 End: 12-27-2024 Basic metabolic 2000 panel - Serum or Plasma BASIC METABOLIC PANEL Lab Routine Hyponatremia Hyperkalemia Expected: 09/27/2024, Expires: 12/27/2024 [facility] Comment on above: Expected: 09/27/2024, Expires: Start: 09-27-2024 End: 12-27-2024 CBC panel - Blood by Automated count COMPLETE BLOOD COUNT Lab Routine Anemia, unspecified type Expected: 09/27/2024, Expires: 12/27/2024 [facility] Work Phone: Comment on above: Expected: 09/27/2024, Expires: Start: 09-27-2024 End: 12-27-2024 Cobalamin (Vitamin B12) [Mass/volume] in Serum or Plasma VITAMIN B12 Lab Routine Anemia, unspecified type Expected: 09/27/2024, Expires: 12/27/2024 [facility] Comment on above: Expected: 09/27/2024, Expires: Start: 09-27-2024 End: 12-27-2024 Cortisol [Mass/volume] in Serum or Plasma CORTISOL, SERUM Lab Routine Hyperkalemia Expected: 09/27/2024, Expires: 12/27/2024 [facility] Comment on above: Expected: 09/27/2024, Expires: Start: 09-27-2024 End: 12-27-2024 Osmolality of Serum or Plasma OSMOLALITY Lab Routine Hyponatremia Expected: 09/27/2024, Expires: 12/27/2024 [facility] Comment on above: Expected: 09/27/2024, Expires: Start: 09-27-2024 End: 12-27-2024 Osmolality of Urine OSMOLALITY URINE Lab Routine Hyponatremia Expected: 09/27/2024, Expires: 12/27/2024 [facility] Comment on above: Expected: 09/27/2024, Expires: Start: 09-27-2024 End: 12-27-2024 PROTEIN ELECTROPHORESIS SERUM W/INTERP PROTEIN ELECTROPHORESIS SERUM W/INTERP Lab Routine Anemia, unspecified type Expected: 09/27/2024, Expires: 12/27/2024 [facility] Comment on above: Expected: 09/27/2024, Expires: Start: 09-27-2024 End: 12-27-2024 Sodium [Moles/volume] in Urine collected for unspecified duration SODIUM RANDOM URINE Lab Routine Hyponatremia Expected: 09/27/2024, Expires: 12/27/2024 [facility] Comment on above: Expected: 09/27/2024, Expires: Start: 09-16-2024 End: 09-16-2025 Basic metabolic 1998 panel - Serum or Plasma Basic metabolic panel Lab Routine Coronary artery disease involving [place] coronary artery of [place] heart without angina pectoris Expected: 09/16/2024 (Approximate), Expires: 09/16/2025 [facility] Work Phone: Comment on above: Expected: 09/16/2024 (Approximate), Expi res: 09/16/2025 Start: 09-16-2024 End: 09-16-2025 CBC panel - Blood by Automated count CBC Lab Routine Coronary artery disease involving [place] coronary artery of [place] heart without angina pectoris Expected: 09/16/2024 (Approximate), Expires: 09/16/2025 [facility] Comment on above: Expected: 09/16/2024 (Approximate), Expi res: 09/16/2025 Start: 09-11-2024 End: 12-11-2024 CBC panel - Blood by Automated count [facility] Work Phone: Comment on above: Expected: 09/11/2024, Expires: Start: 09-11-2024 End: 12-11-2024 Comprehensive metabolic 2000 panel - Serum or Plasma [facility] Comment on above: Expected: 09/11/2024, Expires: Start: 09-11-2024 End: 12-11-2024 Hemoglobin A1c in Blood [facility] Comment on above: Expected: 09/11/2024, Expires: Start: 09-11-2024 End: 12-11-2024 LIPID PANEL, NONFASTING [facility] Comment on above: Expected: 09/11/2024, Expires: Start: 09-11-2024 End: 12-11-2024 Microalbumin/Creatinine [Mass Ratio] in Urine [facility] Comment on above: Expected: 09/11/2024, Expires: Start: 09-11-2024 End: 09-11-2024 Patient encounter procedure 09/11/2024 11:00 AM EST Office Visit Internal Medicine [facility] [address] [facility] [place] [address] Sher Jules MD [address] [place] [address] 6 mo f/u [facility] Medicine [facility] Comment on above: 6 mo f/u Start: 08-09-2024 Annual PCP Team Chronic Disease Visit Annual PCP Team Chronic Disease Visit [facility] Start: 08-06-2024 Diabetes: Estimated Glomerular Filtration Rate for Kidney Health Diabetes: Estimated Glomerular Filtration Rate for Kidney Health [facility] Start: 06-28-2024 Influenza vaccination [facility] Start: 06-26-2024 End: 06-26-2024 Patient encounter procedure 06/26/2024 1:00 PM EDT Office Visit Podiatry [address] [place] [address] Gomez Schwab [address] [place], [place] [address] 3 month follow up nail care Podiatry Comment on above: 3 month follow up nail care Start: 06-01-2024 End: 06-01-2024 Patient encounter procedure 06/01/2024 10:00 AM EDT Office Visit Cardiology [address] [place] [id number] Bib Patterson MD [address] [facility], [address] [place], [place] [id number] 1 YEAR OFFICE VISIT Cardiology Comment on above: 1 YEAR OFFICE VISIT Start: 04-07-2024 End: 04-07-2024 Patient encounter procedure Vasculary Ramirez mario Comment on above: Peripheral arterial disease (HCC) [I73.9 ] [address] testing Start: 04-06-2024 End: 04-06-2024 Patient encounter procedure 04/06/2024 1:20 PM EDT Office Visit Cardiology [address] [place] [phone] Bib Patterson MD [address] [facility], [address] [place] [address] follow up NM stress test per Dr. Patterson Cardiology Comment on above: follow up NM stress test per Dr. Patterson Start: 03-24-2024 End: 03-24-2024 Patient encounter procedure 03/24/2024 10:30 AM EDT Office Visit General Surgery [address] [facility] [place], [place] [phone] Nikos Rivera MD [address] [phone] Special screening for malignant neoplasms, colon [Z12.11] General Surgery Comment on above: Special screening for malignant neoplasm s, colon [Z12.11] Start: 03-22-2024 ANNUAL PCP TEAM CHRONIC DISEASE VISIT ANNUAL PCP TEAM CHRONIC DISEASE VISIT [facility] Start: 03-22-2024 BP CONTROLLED (<130/80) BP CONTROLLED (<130/80) [facility] Start: 03-13-2024 End: 03-13-2024 Patient encounter procedure 03/13/2024 3:20 PM EDT Office Visit Podiatry [address] [place], [place] [phone] Gomez Schwab [address] [facility] [address] 3 month follow up nail care Podiatry Comment on above: 3 month follow up nail care Start: 03-12-2024 Subsequent hospital visit by physician 03/12/2024 8:15 AM EDT Hospital Encounter Cardiology Lab [address] [place], [place] [phone] CORONARY ARTERIOSCLEROSIS Cardiology Lab Comment on above: CORONARY ARTERIOSCLEROSIS Start: 03-12-2024 End: 03-12-2024 Patient encounter procedure 03/12/2024 7:15 AM EDT Appointment Molecular Imaging [address] [place] [phone] CORONARY ARTERIOSCLEROSIS,NM CARDIAC PERF STRESS/PHARM, order in epic Molecular Imaging Comment on above: CORONARY ARTERIOSCLEROSIS,NM CARDIAC PER F STRESS/PHARM, order in epic Start: 03-11-2024 End: 03-11-2025 NM Heart Perfusion W stress and W radionuclide IV NM CARDIAC PERF STRESS/PHARM Radiology Routine 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) Expected: 03/11/2024, Expires: 03/11/2025 [facility] Work Phone: Comment on above: Expected: 03/11/2024, Expires: Start: 03-11-2024 End: 03-11-2024 Patient encounter procedure 03/11/2024 10:20 AM EDT Office Visit Internal Medicine [facility] [place] [address] [place], [place] [phone] Sher Jules MD [address] [place] [address] Medicare Wellness, pt needs colonoscopy [facility] [place] Comment on above: Medicare Wellness, pt needs colonoscopy Start: 02-19-2024 Patient referral to dietitian [facility] Start: 02-08-2024 End: 04-09-2024 ALBUMIN/CREAT RATIO RND UR ALBUMIN/CREAT RATIO RND UR Lab Routine Well controlled type 2 diabetes mellitus with neurological manifestations (HCC) Expected: 02/08/2024, Expires: 04/09/2024 [facility] Work Phone: Comment on above: Expected: 02/08/2024, Expires: Start: 02-08-2024 End: 04-09-2024 CBC panel - Blood by Automated count CBC Lab Routine Essential hypertension Expected: 02/08/2024, Expires: 04/09/2024 [facility] Work Phone: Comment on above: Expected: 02/08/2024, Expires: Start: 02-08-2024 End: 04-09-2024 Comprehensive metabolic 2000 panel - Serum or Plasma COMP METABOLIC PANEL Lab Routine Hyperlipidemia with target LDL less than 70 Expected: 02/08/2024, Expires: 04/09/2024 [facility] Work Phone: Comment on above: Expected: 02/08/2024, Expires: 4 Start: 02-08-2024 End: 04-09-2024 Hemoglobin A1c in Blood HGB A1C Lab Routine Well controlled type 2 diabetes mellitus with neurological manifestations (HCC) Expected: 02/08/2024, Expires: 04/09/2024 [facility] Work Phone: Comment on above: Expected: 02/08/2024, Expires: 4 Start: 02-08-2024 End: 04-09-2024 Lipid 1996 panel - Serum or Plasma LIPID PANEL BASIC Lab Routine Hyperlipidemia with target LDL less than 70 Expected: 02/08/2024, Expires: 04/09/2024 [facility] Work Phone: Comment on above: Expected: 02/08/2024, Expires: 4 Start: 02-07-2024 3 comp foot exam completed DIABETIC FOOT EXAM [facility] Start: 02-07-2024 ANNUAL PCP TEAM CHRONIC DISEASE VISIT ANNUAL PCP TEAM CHRONIC DISEASE VISIT [facility] Start: 02-07-2024 Diabetic foot examination Diabetic Foot Exam [facility] Start: 02-07-2024 Hepatitis B screening URINE ALBUMIN:CREATININE RATIO [facility] Start: 02-07-2024 Hepatitis B surface antibody level LDL CHOLESTEROL [facility] Start: 02-05-2024 Hemoglobin A1c measurement HbA1C [facility] Start: 02-05-2024 Hemoglobin A1c/Hemoglobin.total in Blood HbA1C [facility] Start: 01-30-2024 Patient referral [facility] Work Phone: Start: 01-30-2024 Patient discharge [facility] Start: 01-29-2024 Ambulation without limitation [facility] Start: 01-29-2024 Cardiac monitoring [facility] Start: 01-29-2024 Cardiac rehabilitation - phase 1 [facility] Start: 01-29-2024 Cardiac rehabilitation - phase 2 [facility] Start: 01-29-2024 Notification of physician [facility] Start: 01-29-2024 Patient discharge [facility] Start: 01-29-2024 Taking patient vital signs [facility] Start: 01-29-2024 Vascular disease risk assessment [facility] Start: 01-29-2024 Vital signs measurements [facility] Start: 01-29-2024 End: 01-29-2024 [facility] Start: 01-28-2024 Following clinical pathway protocol [facility] Start: 01-28-2024 Measurement of occult blood in stool specimen using immunoassay [facility] Start: 01-28-2024 Application of elastic bandage [facility] Start: 01-28-2024 Assessment of risk of venous thromboembolism [facility] Start: 01-28-2024 Care regimes management [facility] Start: 01-28-2024 Continuous pulse oximetry [facility] Start: 01-28-2024 Elevation of head of bed [facility] Start: 01-28-2024 Incentive spirometry [facility] Start: 01-28-2024 Inhalation therapy procedure [facility] Start: 01-28-2024 Insertion of catheter into peripheral vein [facility] Start: 01-28-2024 Introduction of urinary catheter [facility] Start: 01-28-2024 Measuring intake and output [facility] Start: 01-28-2024 Notification of physician [facility] Start: 01-28-2024 Oxygen therapy [facility] Start: 01-28-2024 Patient referral to dietitian [facility] Start: 01-28-2024 Providing care according to standard [facility] Start: 01-28-2024 Provision of activity privileges [facility] Start: 01-28-2024 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 to restaurant associate [facility] Start: 01-28-2024 Referral to service [facility] Start: 01-28-2024 Vital signs measurements [facility] Start: 01-28-2024 [facility] Start: 01-28-2024 Chart related administrative procedure [facility] Start: 01-28-2024 Hospital admission, emergency, from emergency room, medical nature [facility] Start: 01-28-2024 Creatinine [Mass/volume] in Urine collected for unspecified duration [facility] Start: 01-28-2024 Electrocardiographic procedure [facility] Start: 01-28-2024 Measurement of occult blood in stool specimen using immunoassay [facility] Start: 01-28-2024 Osmolality of Urine [facility] Start: 01-28-2024 Sodium [Moles/volume] in Urine [facility] Start: 01-28-2024 Verification routine [facility] Start: 01-28-2024 Admission procedure [facility] Start: 01-28-2024 Catheterization of vein [facility] Start: 01-28-2024 Medication not administered [facility] Start: 01-28-2024 [facility] Start: 01-28-2024 [facility] Start: 12-02-2023 Colonoscopy COLONOSCOPY [facility] Start: 12-02-2023 COLORECTAL CANCER SCREENING COLORECTAL CANCER SCREENING [facility] Start: 12-02-2023 Screening for malignant neoplasm of colon [facility] Start: 10-28-2023 Advance Directive Discussion Advance Directive Discussion [facility] Start: 10-28-2023 Behavioral Health Screening Behavioral Health Screening [facility] Start: 10-28-2023 Depression Assessment Depression Assessment [facility] Start: 10-26-2023 Glaucoma screening Dilated Retinal Exam [facility] Start: 10-26-2023 Hepatitis C antibody, confirmatory test DILATED RETINAL EXAM [facility] Start: 10-01-2023 BP CONTROLLED (<130/80) BP CONTROLLED (<130/80) [facility] in Start: 08-08-2023 End: 10-08-2023 Basic metabolic 2000 panel - Serum or Plasma BASIC METABOLIC PNL Lab Routine Well controlled type 2 diabetes mellitus with neurological manifestations (HCC) Expected: 08/08/2023, Expires: 10/08/2023 [facility] Work Phone: Comment on above: Expected: 08/08/2023, Expires: Start: 08-08-2023 End: 10-08-2023 Hemoglobin A1c in Blood HGB A1C Lab Routine Well controlled type 2 diabetes mellitus with neurological manifestations (HCC) Expected: 08/08/2023, Expires: 10/08/2023 [facility] Work Phone: Comment on above: Expected: 08/08/2023, Expires: 3 Start: 08-08-2023 Hemoglobin A1c/Hemoglobin.total in Blood HBA1C [facility] Start: 07-18-2023 Adult depression screening assessment DEPRESSION SCREENING [facility] Start: 07-18-2023 ANNUAL PCP TEAM CHRONIC DISEASE VISIT ANNUAL PCP TEAM CHRONIC DISEASE VISIT [facility] Start: 07-18-2023 BP CONTROLLED (<130/80) BP CONTROLLED (<130/80) [facility] in Start: 07-18-2023 SHINGRIX VACCINE (3 of 3) SHINGRIX VACCINE (3 of 3) [facility] Comment on above: Postponed from 05/10/2018 (Declined at t his time) Start: 06-28-2023 Influenza vaccination [facility] Start: 06-11-2023 ANNUAL PCP TEAM CHRONIC DISEASE VISIT ANNUAL PCP TEAM CHRONIC DISEASE VISIT [facility] Start: 03-19-2023 Hepatitis B surface antibody level LDL CHOLESTEROL [facility] Start: 02-20-2023 ANNUAL PCP TEAM CHRONIC DISEASE VISIT ANNUAL PCP TEAM CHRONIC DISEASE VISIT [facility] Start: 02-20-2023 BP CONTROLLED (<130/80) BP CONTROLLED (<130/80) [facility] Start: 02-20-2023 Urine microalbumin profile DTAP,TDAP,TD (2 - Tdap) [facility] Comment on above: Postponed from 03/19/2018 (Declined at t his time) Start: 02-06-2023 End: 04-08-2023 ALBUMIN/CREAT RATIO RND UR [facility] Work Phone: Comment on above: Expected: 02/06/2023, Expires: 3 Start: 10-28-2022 ADVANCE DIRECTIVE DISCUSSION ADVANCE DIRECTIVE DISCUSSION [facility] Start: 10-28-2022 DEPRESSION ASSESSMENT DEPRESSION ASSESSMENT [facility] Start: 10-26-2022 Hepatitis C antibody, confirmatory test DILATED RETINAL EXAM [facility] Start: 09-19-2022 Hemoglobin A1c/Hemoglobin.total in Blood HBA1C [facility] Start: 07-18-2022 End: 09-17-2022 ALBUMIN/CREAT RATIO RND UR ALBUMIN/CREAT RATIO RND UR Lab Routine Well controlled type 2 diabetes mellitus with neurological manifestations (HCC) Expected: 07/18/2022, Expires: 09/17/2022 [facility] Work Phone: Comment on above: Expected: 07/18/2022, Expires: 2 Start: 06-30-2022 3 comp foot exam completed DIABETIC FOOT EXAM [facility] Start: 06-28-2022 Influenza vaccination INFLUENZA (#1) [facility] Start: 05-30-2022 Patient discharge [facility] Work Phone: Start: 05-30-2022 Assessment of risk of venous thromboembolism [facility] Work Phone: Start: 05-30-2022 Cardiac monitoring [facility] Work Phone: Start: 05-30-2022 Care regimes management [facility] Work Phone: Start: 05-30-2022 Catheterization of vein [facility] Work Phone: Start: 05-30-2022 Elevation of head of bed [facility] Work Phone: Start: 05-30-2022 Exercises [facility] Work Phone: Start: 05-30-2022 Implementation of planned interventions [facility] Work Phone: Start: 05-30-2022 Insertion of catheter into peripheral vein [facility] Work Phone: Start: 05-30-2022 Measuring intake and output [facility] Work Phone: Start: 05-30-2022 Notification of physician [facility] Work Phone: Start: 05-30-2022 Oxygen therapy [facility] Work Phone: Start: 05-30-2022 Patient referral to dietitian [facility] Work Phone: Start: 05-30-2022 Providing care according to standard [facility] Work Phone: Start: 05-30-2022 Referral to occupational therapist [facility] Work Phone: Start: 05-30-2022 Referral to service [facility] Work Phone: Start: 05-30-2022 Speech therapy assessment [facility] Work Phone: Start: 05-30-2022 Tobacco use cessation education [facility] Work Phone: Start: 05-30-2022 [facility] Work Phone: Start: 05-30-2022 Following clinical pathway protocol [facility] Work Phone: Start: 05-30-2022 Admission procedure [facility] Work Phone: Start: 05-29-2022 Oxygen therapy [facility] Work Phone: Start: 05-29-2022 [facility] Work Phone: Start: 05-23-2022 Hepatitis B screening URINE ALBUMIN:CREATININE RATIO [facility] Start: 03-15-2022 Hemoglobin A1c/Hemoglobin.total in Blood HBA1C [facility] Start: 02-23-2022 Adult depression screening assessment DEPRESSION SCREENING [facility] Start: 11-21-2021 Hepatitis B surface antibody level LDL CHOLESTEROL [facility] Start: 10-28-2021 DEPRESSION ASSESSMENT DEPRESSION ASSESSMENT [facility] Start: 05-10-2018 SHINGRIX VACCINE (3 of 3) SHINGRIX VACCINE (3 of 3) [facility] Start: 02-01-2016 FECAL OCCULT BLOOD FECAL OCCULT BLOOD [facility] Start: 02-01-2016 Screening for malignant neoplasm of colon Fecal Occult Blood [facility] Start: 2012 Hepatitis B Vaccine (1 of 3 - Risk 3-dose series) Hepatitis B Vaccine (1 of 3 - Risk 3-dose series) [facility] Start: 2012 RSV Vaccine (1 - 1-dose 60+ series) RSV Vaccine (1 - 1-dose 60+ series) [facility] Start: 01-26-1997 COLOGUARD (FIT-DNA) COLOGUARD (FIT-DNA) [facility] Start: 01-26-[address] COLONOGRAPHY [facility] Start: 01-26-1997 Screening for malignant neoplasm of colon [facility] Start: 01-26-1997 SIGMOIDOSCOPY SIGMOIDOSCOPY [facility] Start: 01-26-1970 Hepatitis C screening Hepatitis C Screening [facility] Start: 1964 Depression Screening Depression Screening [facility] Start: 01-26-1962 Diabetic foot examination Diabetes: Foot Exam [facility] Start: 01-26-1962 Glaucoma screening Diabetes: Retinopathy Screening [facility] Start: 01-26-1962 Preventive dental service Diabetes: Dental Exam [facility] Start: 1952 Lipid panel Lipid Panel [facility] Start: 1952 Medicare Annual Wellness (AWV) Medicare Annual Wellness (AWV) [facility] Start: 1950 Screening for malignant neoplasm of colon [facility] Bacteria identified in Wound by Culture ABSCESS AND WOUND CULTURE WITH GRAM STAIN Microbiology Routine Ingrowing toenail with infection 10/31/2023 11:44 AM EST [facility] Work Phone: CARDIAC REHAB II OUT PT ([place], [place]) CARDIAC REHAB II OUTPT ([place]) BIC Routine 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) Ordered: 02/10/2024 [facility] Work Phone: Comment on above: Ordered: 02/10/2024 Comprehensive metabo lic 2000 panel - Serum or Plasma [facility] End: 02-14-2024 Cta abdl aorta&bi iliofem w/contrast&postp CTA ABD/PEL LOWER EXTREM W IVCON Radiology Routine Peripheral vascular disease (HCC) 1 Occurrences starting 01/15/2023 until 02/14/2024 [facility] Work Phone: Comment on above: 1 Occurrences starting 01/15/2023 until 02/14/2024 ECG 12 lead ECG 12 lead CV E CG Routine 09/30/2024 12:42 PM EST [facility] Work Phone: End: 09-05-2023 ECG COMPLETE ECG COMPLETE ECG Routine Coronary artery disease involving [place] coronary artery of [place] heart without angina pectoris 1 Occurrences starting 09/05/2022 until 09/05/2023 [facility] Work Phone: Comment on above: 1 Occurrences starting 09/05/2022 until 09/05/2023 End: 04-29-2024 ECG COMPLETE ECG COMPLETE ECG Routine Screening for ischemic heart disease 1 Occurrences starting 04/29/2023 until 04/29/2024 [facility] Work Phone: Comment on above: 1 Occurrences starting 04/29/2023 until 04/29/2024 End: 08-09-2024 ECG COMPLETE ECG COMPLETE ECG Routine Coronary artery disease involving [place] coronary artery of [place] heart without angina pectoris 1 Occurrences starting 08/09/2023 until 08/09/2024 [facility] Work Phone: Comment on above: 1 Occurrences starting 08/09/2023 until 08/09/2024 LEFT HEART CATH / CO RONARY ANGIOGRAPHY W GRAFTS LEFT HEART CATH / CORONARY ANGIOGRAPHY W GRAFTS Coronary artery disease involving [place] coronary artery of [place] heart without angina pectoris [facility] Metabolomx Lipid 1996 panel - S silvia or Plasma [facility] Patient Education [facility] Work Phone: Patient referral [facility] Work Phone: End: 03-27-2023 PVR LEG NOHEMY [facility] Vascular Lab Routine Peripheral arterial disease (HCC) 1 Occurrences starting 03/27/2022 until 03/27/2023 [facility] Work Phone: Comment on above: 1 Occurrences starting 03/27/2022 until 03/27/2023 Tissue Pathology bio psy report [facility] Work Phone: Comment on above: Release Upon Ordering for 1 Occurrences starting 04/14/2025, 1 completed End: 04-07-2025 US Lower extremity artery - bilateral [facility] Vascular Lab Routine Peripheral arterial disease (HCC) 1 Occurrences starting 04/07/2024 until 04/07/2025 [facility] Work Phone: Comment on above: 1 Occurrences starting 04/07/2024 until 04/07/2025 End: 04-06-2026 US Lower extremity artery - bilateral [facility]G [facility] Vascular Lab Routine Peripheral arterial disease 1 Occurrences starting 04/06/2025 until 04/06/2026 [facility] Work Phone: Comment on above: 1 Occurrences starting 04/06/2025 until 04/06/2026 End: 02-25-2025 XR Wrist - bilateral PA and Lateral and Oblique XR WRIST GENERAL 3V PA/LAT/OBL BILATERAL Radiology Routine Pain in both wrists 1 Occurrences starting 2024 until 02/25/2025 [facility] Work Phone: Comment on above: 1 Occurrences starting 2024 until 02/25/2025 XR Wrist - bilateral PA and Lateral and Oblique XR WRIST GENERAL 3V PA/LAT/OBL BILATERAL Radiology Routine Pain in both wrists 2024 3:44 PM EDT [facility] Work Phone: [facility] Immunizations Immunization Date Immunization Notes Care Provider Fa [facility] 04-30-2025 tetanus toxoid, redu hayley diphtheria toxoid, and acellular pertussis vaccine, adsorbed Dr. Sher Jules MD Work Phone: [facility] 07-29-2023 COVID-19 vaccine, ag e 12+ yr, season (PFIZER-BIONTECH) Sher Jules MD Work Phone: [facility] 07-29-2023 influenza (aIIV4) vaccine, age 65+ yr, quadrivalent, PF (FLUAD QUAD) Sher Jules MD Work Phone: [facility] 07-29-2023 influenza virus vaccine, unspecified formulation Barb Suggs APRN.CNP Work Phone: [facility] 08-04-2022 COVID-19 booster vaccine, age 12+ yr, bivalent (PFIZER-BIONTECH) Jules Dukes MD Work Phone: [facility] Work Phone: 08-04-2022 tetanus toxoid, redu hayley diphtheria toxoid, and acellular pertussis vaccine, adsorbed Jules Dukes MD Work Phone: [facility] Work Phone: 07-18-2022 influenza, high-dose , quadrivalent vaccine (FLUZONE HIGH DOSE QUADRIVALENT) Barb Leon APRN.CNP Work Phone: [facility] Work Phone: 07-18-2022 influenza virus vaccine, unspecified formulation Gomez Mccabezaki Work Phone: [facility] 03-04-2022 COVID-19 original vaccine, full dose, monovalent (MODERNA) Sher Jules MD Work Phone: [facility] Work Phone: 08-21-2021 COVID-19 vaccine, booster dose (MODERNA) Sher Jules MD Work Phone: [facility] 07-14-2021 influenza, high-dose , quadrivalent vaccine (FLUZONE HIGH DOSE QUADRIVALENT) Sher Jules MD Work Phone: [facility] 05-28-2021 Covid (Moderna) [facility] Work Phone: 01-07-2021 COVID-19 vaccine, booster dose (MODERNA) Sher Jules MD Work Phone: [facility] 12-10-2020 COVID-19 vaccine, booster dose (MODERNA) Sher Juels MD Work Phone: [facility] 08-03-2020 influenza (aIIV4) vaccine, age 65+ yr, quadrivalent, PF (FLUAD QUAD) Sher Jules MD Work Phone: [facility] Work Phone: 08-06-2019 influenza, high dose seasonal, preservative-free Sher Jules MD Work Phone: [facility] Work Phone: 08-22-2018 influenza, high dose seasonal, preservative-free Sher Jules MD Work Phone: [facility] 03-15-2018 zoster vaccine recombinant Sher Jules MD Work Phone: [facility] Work Phone: 02-21-2018 pneumococcal polysaccharide vaccine, 23 valent Sher Jules MD Work Phone: [facility] Work Phone: 08-22-2017 influenza, high dose seasonal, preservative-free Sher Jules MD Work Phone: [facility] 02-20-2017 pneumococcal conjuga te vaccine, 13 valent Sher Jules MD Work Phone: [facility] 08-22-2016 influenza, injectabl e, quadrivalent, contains preservative Sher Jules MD Work Phone: [facility] 08-05-2015 influenza, injectabl e, quadrivalent, contains preservative Sher Jules MD Work Phone: [facility] 08-17-2013 zoster vaccine, live Sher Jules MD Work Phone: [facility] 07-03-2013 influenza virus vaccine, unspecified formulation Sher Jules MD Work Phone: [facility] 08-13-2011 influenza virus vaccine, unspecified formulation Sher Jules MD Work Phone: [facility] Work Phone: 08-01-2009 influenza virus vaccine, unspecified formulation Sher Jules MD Work Phone: [facility] Work Phone: 03-19-2008 diphtheria and tetan us toxoids, adsorbed for pediatric use Sher Jules MD Work Phone: [facility] Work Phone: 12-24-2006 pneumococcal polysaccharide vaccine, 23 valent Sher Jules MD Work Phone: [facility] Work Phone: Payers Date Payer Category Payer Unknown PLAN N 2024 Unknown [id number] 2024 Self-pay [id number] 2016 Medicare MEDICARE MEDICAR E A AND B [id number] 2016-Present [phone] [place] [address] Medicare [id number] 2016 Medicare [id number] 2016 Medicare supplementa l policy (as second payer) [id number] 2016 Private Health Insurance [employer]ICO [place] [id number] 2016 Unknown MEDICO MEDICO 2N D [id number] 2016-Present [phone] [address] [address] [place] [id number] Indemnity [id number] 2016 Medicare [id number] 2016 Unknown [id number] 2005 Private Health Insurance [id number] Unknown [id number] 2.16.840.1.359852.3.579 .2.462 Unknown [id number] 2.16.840.1.229188.3.579 .2.462 Unknown [id number] 2.16.840.1.022914.3.579 .2.462 Unknown [id number] 2.16.840.1.450613.3.579 .2.462 Unknown [id number] 2.16.840.1.238145.3.579 .2.462 Unknown [id number] 2.16.840.1.748112.3.579 .2.462 Unknown [id number] 2.16.840.1.871828.3.579 .2.462 Unknown [id number] 2.16.840.1.543853.3.579 .2.462 Unknown [id number] 2.16.840.1.739288.3.579 .2.462 Unknown [id number] 2.16.840.1.476888.3.579 .2.462 Unknown [id number] 2.16.840.1.025351.3.579 .2.462 Unknown [id number] 2.16.840.1.065327.3.579 .2.462 Unknown [id number] 2.16.840.1.927820.3.579 .2.462 Unknown [id number] 2.16.840.1.832254.3.579 .2.462 Unknown [id number] 2.16.840.1.234301.3.579 .2.462 Unknown [id number] 2.16.840.1.204917.3.579 .2.462 Unknown [id number] 2.16.840.1.740863.3.579 .2.462 Unknown [id number] 2.16.840.1.897124.3.579 .2.462 Unknown [id number] 2.16.840.1.838207.3.579 .2.462 Unknown [id number] 2.16.840.1.667741.3.579 .2.462 Unknown [id number] 2.16.840.1.151327.3.579 .2.462 Unknown [id number] 2.16.840.1.252384.3.579 .2.462 Unknown [id number] 2.16.840.1.557108.3.579 .2.462 Unknown [id number] 2.16.840.1.029682.3.579 .2.462 Unknown [id number] 2.16.840.1.025226.3.579 .2.462 Unknown [id number] 2.16840.1.589212.3.579 .2.462 Unknown [id number] 2.16.840.1.019754.3.579 .2.462 Unknown [id number] 2.16.840.1.279405.3.579 .2.462 Unknown [id number] 2.16840.1.021524.3.579 .2.462 Unknown [id number] 2.16840.1.708302.3.579 .2.462 Social History Date Type Detail Facility Start: 10-17-2013 End: 04-29-2025 Tobacco smoking status NHIS Ex-smoker [facility] Start: 10-28-1968 End: 10-28-2002 History of tobacco use Current smoker [facility] Start: 10-28-1968 End: 10-28-2002 History of tobacco use Cigarette Smoker [facility] Start: 02-20-2022 End: 04-15-2025 Alcohol intake Current drinker of alcohol (finding) [facility] Start: 02-20-2022 End: 03-20-2023 Alcohol intake [facility] Start: 08-22-2020 End: 09-24-2022 History SDOH Alcohol Frequency 5 [facility] Start: 08-22-2020 End: 09-24-2022 History SDOH Alcohol Std Drinks 2 [facility] Start: 08-22-2020 End: 09-24-2022 History SDOH Alcohol Binge 4 [facility] Start: 02-20-2022 History SDOH Alcohol Comment 6 beers per day, sometimes less [facility] Start: 07-31-2020 End: 09-24-2022 History SDOH Social Connections Get Together 3 [facility] Start: 07-31-2020 End: 09-24-2022 History SDOH Social Connections Membership 1 [facility] Start: 01-21-2020 End: 09-24-2022 History SDOH Physical Activity DPW 0 [facility] Start: 01-21-2020 Education 12 [facility] Start: 1950 Sex Assigned At Male [facility] Start: 03-17-2022 End: 03-27-2022 Exposure to SARS-CoV-2 (event) Unable to assess [facility] Start: 04-22-2022 End: 10-01-2022 Exposure to SARS-CoV-2 (event) Not sure [facility] Start: 05-29-2022 End: 02-19-2024 Tobacco smoking status NHIS Unknown if ever smoked [facility] Start: 05-29-2022 Cigarettes [facility] Start: 10-17-2013 End: 04-06-2025 Tobacco use and exposure Smokeless tobacco non-user [facility] Work Phone: Start: 09-24-2022 End: 03-20-2023 Social connection and isolation panel [facility] Do you belong to any clubs or organizations such as sabianism groups, unions, fraternal or athletic groups, or school groups? Yes [facility] Are you now , , , , never or living with a partner? [facility] How often to you hav e a drink containing alcohol? 4 or more times a week [facility] How many standard dr inks containing alcohol do you have on a typical day? 3 or 4 [facility] How often do you hav e 6 or more drinks on 1 occasion? Weekly [facility] How hard is it for y ou to pay for the very basics like food, housing, medical care, and heating Not hard at all [facility] Do you feel stress - tense, restless, nervous, or anxious, or unable to sleep at night because your mind is troubled all the time - these days [OSQ] Not at all [facility] (I/We) worried [facility] (my/our) food would run out before (I/we) got money to buy more. Never true [facility] In the past 12 month s, was there a time when you were not able to pay the mortgage or rent on time? No [facility] Start: 08-11-2020 Gender identity Identifies as male gender (finding) [facility] Start: 08-11-2020 Sexual orientation Heterosexual (finding) [facility] How often do you hav e 6 or more drinks on 1 occasion? Never [facility] History of tobacco use Passive smoker [facility] Start: 09-16-2024 Alcohol Comment 30 a week [facility] Start: 1950 Sex assigned at Not on file [facility] Start: 09-15-2024 Sex Male (finding) [facility] How many standard dr inks containing alcohol do you have on a typical day? 5 or 6 [facility] How often do you hav e 6 or more drinks on 1 occasion? Daily or almost daily [facility] Medical Equipment Procedure Code Equipment Code Equipment Original Text Equipment Identifier Dates Attica Ptfe 1.2 Cm X 10 Cm - [id number] Start: 10-20-2013 Comment on above: Description: Bard PT FE Attica Patch Cv 2x9cm Peripatch - [id number] Start: 05-24-2016 [id number] Start: 02-15-2010 Comment on above: TEST BLOOD SUGARS ON CE DAILY Use as instructed Test blood sugar onc e daily. Drug-eluting coronary artery stent, non-bioabsorbable -polymer-coated ()[id number] FDA Start: 01-29-2024 Drug-eluting coronary artery stent, non-bioabsorbable -polymer-coated ()[id number] FDA Start: 01-29-2024 Stent Cor Skypoint 2.77a33yw - [id number] Start: 09-30-2024 Stent Cor Skypoint 3.55j72ue - [id number] Start: 09-30-2024 Goals Date Patient Goal Desired Activity /State Personal health goal Functional Status Date Assessment Result Facility 01-30-2024 Functional status Ambulates;Up a d juan;Bathroom Privilege [facility] Work Phone: 05-30-2022 Functional status Ambulates [facility] Work Phone: 05-26-2016 Are you deaf, or do you have serious difficulty hearing No 05/26/2016 1:42 PM EDT Homer MadisonRn)(Hist), RN No [facility] 05-26-2016 Are you blind, or do you have serious difficulty seeing, even when wearing glasses No 05/26/2016 1:42 PM Homer SalazarRn)(Hist), RN No [facility] 05-26-2016 Do you have serious difficulty walking or climbing stairs No 05/26/2016 1:42 PM EDHomer KohlerRn)(Hist), RN No [facility] 05-26-2016 Do you have difficul ty dressing or bathing No 05/26/2016 1:42 PM Homer SalazarRn)(Hist), RN No [facility] 05-26-2016 Because of a physica l, mental, or emotional condition, do you have difficulty doing errands alone such as visiting a physician's office or shopping No 05/26/2016 1:42 PM Homer Salazar)(Hist), RN No [facility] Mental Status Date Assessment Result Facility 01-30-2024 Cognitive function Voice/Name [facility] Work Phone: 01-28-2024 Cognitive function Voice/Name [facility] Work Phone: 05-30-2022 Cognitive function Voice/Name [facility] Work Phone: 05-26-2016 Because of a physica l, mental, or emotional condition, do you have serious difficulty concentrating, remembering, or making decisions No 05/26/2016 1:42 PM EDHomer Kohler)(Hist), RN No [facility] Clinical Notes 08-22-2018 to 04-30-2025 lEvie Monterroso APRN.HAY FARMER - 04/22/2025 10:30 AM EDTDischarge Instr - Nursing - Nuris Meek, RN - 04/14/2025 9:21 AM EDTDischarge Instr - Nursing - Nuris Meek RN - 04/14/2025 9:21 AM EDT Note Date & Type Note Facility 04-30-2025 Discharge summary [facility] 04-29-2025 Radiology Diagnostic study note [facility] Imaging Services [address] [place] [address] Brain/Head without Contrast MR#: [id number] Acct: [id number] Name: MARIE HUTSON Rep #: [id number] : 1950 M 75 From: Carin Sifuentes MD PCP: Dr. Sher Jules MD Status: R ER Study:Brain/Head without Contrast Date of Exa m: 04/29/25 Exam# [id number] Ordering Dr: Susy Wallace MD PROCEDURE: BRAIN/HEAD [...] IMPRESSION: No acute intracranial finding Reading Location: [place] [address] CC: Dr. Rohan Wallace MD; Dr. 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 Keep wound clean and dry as much as possible for the next 2 to 3 days 2. Apply bacitracin ointment 2-3 times a day 3. If there is any concern for infection either see your doctor or return to the emergency room for reevaluation [facility] Work Phone: 04-22-2025 History of Present illness Narrative FOLLOW UP VISIT - ENDOSCOPY Marie Hutson 1950 [id number] REFERRING PHYSICIAN: Nikos Rivera [address] [facility] [address] Marie Hutson is a patient I am [...] as needed for worsening/no improvement. Elvie Monterroso APRN.HAY FARMER documented in this encounter [facility] 04-22-2025 Note HNO ID: [id number] Author: ELVIE MONTERROSO APRN.HAY FARMER Service: ? Author Type: Nurse Practitioner Type: Progress Notes Filed: 04/22/2025 10:56 Note Text: FOLLOW UP VISIT - ENDOSCOPY Marie Hutson 1950 [id number] REFERRING PHYSICIAN: Nikos Rivera [address] [facility] [address] Marie Hutson is a patient I am [...] as needed for worsening/no improvement. Elvie Monterroso APRN.HAY FARMER [facility] 04-14-2025 Note Formatting of this n ote might be different from the original. The patient received a copy of Colonoscopy and EGD discharge instructions that contain information for how to contact the physician who performed the procedure and when to seek medical care. [facility] 04-14-2025 Miscellaneous Notes The patient received a copy of Colonoscopy and EGD discharge instructions that contain information for how to contact the physician who performed the procedure and when to seek medical care. documented in this encounter [facility] 04-14-2025 Attending History and physical note UPDATED [...] : 1950 REFERRING PHYSICIAN: Barb Suggs [address] [facility] [address] CHIEF COMPLAINT: Patient presents with: Consult: For [...] ulcers/ peptic ulcer disease. Marie follows with [facility] for hx of CABG x 3 (2012), CAD with 2 stents in 09/2024. On plavix. Last OV 01/2025. He denies CP, SOB, dizziness, palpitations, syncope, edema, recent hospitalizations Other medical history is significant for T2DM and osteoarthritis. Marie has undergone prior endoscopy. Last colonoscopy was 11/[address] Rivera at [facility]. Sedation:Midazolam 5 mg IV, Fentanyl 100 micrograms [...] Diagnosis Date Anemia, unspecified type Atherosclerosis of [place] arteries of the extremities with intermittent claudication [...] outpt Primary osteoarthritis of left knee 02/21/2018 [facility]. Type II or unspecified [...] consents to surgery. Cardiac clearance sent to [facility]. Will keep patient on plavix & [...] edited and updated as necessary. Elvie Monterroso APRN.HAY FARMER [facility] 04-14-2025 History and physical note HISTORY AND PHYSICAL Marie Hutson : 1950 REFERRING PHYSICIAN: Barb Suggs [address] [facility] [address] CHIEF COMPLAINT: Patient presents with: Consult: For [...] ulcers/ peptic ulcer disease. Marie follows with [facility] for hx of CABG x 3 (2012), CAD with 2 stents in 09/2024. On plavix. Last OV 01/2025. He denies CP, SOB, dizziness, palpitations, syncope, edema, recent hospitalizations Other medical history is significant for T2DM and osteoarthritis. Marie has undergone prior endoscopy. Last colonoscopy was 11/[address] Rivera at [facility]. Sedation:Midazolam 5 mg IV, Fentanyl 100 micrograms [...] Diagnosis Date Anemia, unspecified type Atherosclerosis of [place] arteries of the extremities with intermittent claudication [...] outpt Primary osteoarthritis of left knee 02/21/2018 [facility]. Type II or unspecified [...] consents to surgery. Cardiac clearance sent to [facility]. Will keep patient on plavix & [...] edited and updated as necessary. Elvie Monterroso APRN.HAY FARMER [facility] 04-14-2025 History and physical note UPDATED PROCEDURAL [...] : 1950 REFERRING PHYSICIAN: Barb Suggs [address] [facility] [address] CHIEF COMPLAINT: Patient presents with: Consult: For [...] ulcers/ peptic ulcer disease. Marie follows with [facility] for hx of CABG x 3 (2012), CAD with 2 stents in 09/2024. On plavix. Last OV 01/2025. He denies CP, SOB, dizziness, palpitations, syncope, edema, recent hospitalizations Other medical history is significant for T2DM and osteoarthritis. Marie has undergone prior endoscopy. Last colonoscopy was 11/[address] Rivera at [facility]. Sedation:Midazolam 5 mg IV, Fentanyl 100 micrograms [...] Diagnosis Date Anemia, unspecified type Atherosclerosis of [place] arteries of the extremities with intermittent claudication [...] consents to surgery. Cardiac clearance sent to [facility]. Will keep patient on plavix & [...] : 1950 REFERRING PHYSICIAN: Barb Suggs [address] [facility] [address] CHIEF COMPLAINT: Patient presents with: Consult: For [...] ulcers/ peptic ulcer disease. Marie follows with [facility] for hx of CABG x 3 (2012), CAD with 2 stents in 09/2024. On plavix. Last OV 01/2025. He denies CP, SOB, dizziness, palpitations, syncope, edema, recent hospitalizations Other medical history is significant for T2DM and osteoarthritis. Marie has undergone prior endoscopy. Last colonoscopy was 11/[address] Rivera at [facility]. Sedation:Midazolam 5 mg IV, Fentanyl 100 micrograms [...] Diagnosis Date Anemia, unspecified type Atherosclerosis of [place] arteries of the extremities with intermittent claudication [...] consents to surgery. Cardiac clearance sent to [facility]. Will keep patient on plavix & [...] edited and updated as necessary. Elvie Monterroso APRN.HAY FARMER documented in this encounter [facility] 04-06-2025 Note HNO ID: [id number] Author: NARGIS YIN, DO Service: ? Author Type: Physician Type: Progress Notes Filed: 04/06/2025 09:38 Note Text: [facility] [place] DEPARTMENT OF VASCULAR SURGERY OUTPATIENT VISIT DATE [...] Diagnosis Date Anemia, unspecified type Atherosclerosis of [place] arteries of the extremities with intermittent claudication [...] mg SL tab (more content not included)... [facility] 04-06-2025 History of Present illness Narrative Images from the original note were not included. [facility] [place] DEPARTMENT OF VASCULAR SURGERY OUTPATIENT VISIT DATE [...] Diagnosis Date Anemia, unspecified type Atherosclerosis of [place] arteries of the extremities with intermittent claudication [...] to appointment today. documented in this encounter [facility] 04-06-2025 Note HNO ID: [id number] Author: GEM QUIROGA MA Service: ? Author Type: Director Hardware Type: Progress Notes Filed: 04/06/2025 09:38 Note Text: Patient presents with: Follow Up: 1 year follow up PAD AMB ROOMING INTAKE FLOWSHEET DATA Patient denies any pain PVR done prior to appointment today. [facility] 03-18-2025 Note HNO ID: [id number] Author: ELVIE MONTERROSO APRN.HAY FARMER Service: ? Author Type: Nurse Practitioner Type: Progress Notes Filed: 03/18/2025 10:06 Note Text: HISTORY AND PHYSICAL Marie Hutson : 1950 REFERRING PHYSICIAN: Barb Suggs [address] [facility] [address] CHIEF COMPLAINT: Patient presents with: Consult: For [...] ulcers/ peptic ulcer disease. Marie follows with [facility] for hx of CABG x 3 (2012), CAD with 2 stents in 09/2024. On plavix. Last OV 01/2025. He denies CP, SOB, dizziness, palpitations, syncope, edema, recent hospitalizations Other medical history is significant for T2DM and osteoarthritis. Marie has undergone prior endoscopy. Last colonoscopy was 11/[address] Rivera at [facility]. Sedation:Midazolam 5 mg IV, Fentanyl 100 micrograms [...] Diagnosis Date Anemia, unspecified type Atherosclerosis of [place] arteries of the extremities with intermittent claudication 09/07/2010 BENIGN NEOPLASM LG BOWEL 07/29/2008 Tubular adenoma. 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 Coronary artery disease Dermatophytosis of nail 12/29/2007 Diabetic peripheral neuropathy (HCC) 05/17/2014 Diabetic polyneuropathy associated with type 2 diabetes mellitus (HCC) DVT of leg (deep venous thrombosis) ([facility]) 11/16/2013 post-op CABG, rx with Xarelto Essential hypertension Hypertrophy of prostate without urinary obstruction and other lower urinary tract symptoms (LUTS) 12/29/2007 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/29/2007 Non-ST elevation myocardial infarction (NSTEMI) 10/17/2013 Non-STEMI (non-ST elevated myocardial infarction) ([facility]) 01/30/2024 LISANDRO to distal RCA Nonspecific abnormal [...] outpt Primary osteoarthritis of left knee 02/21/2018 [facility]. Type II or unspecified type diabetes mellitus without mention of complication, not stated as uncontrolled 12/29/2007 Unspecified essential hyper (more content not included)... [facility] 03-16-2025 Note HNO ID: [id number] Author: BRIAN GARSIA Tech Service: ? Author [...] PATIENT PRESENTS WITH AN IMPLANTABLE OR ATTACHED HEAD OF BUSINESS DEVELOPMENT: No RADIOLOGY DEPARTMENT: General X-ray: Exam(s) Completed: Upper Extremity X-Ray(s): Hand, bilateral PERIPHERAL IV DATA: Not applicable SIGNED BY: Arlene Goldstein March 16, 2025 11:37 AM [facility] 03-16-2025 Note HNO ID: [id number] Author: BARB SUGGS APRN.HAY FARMER Service: ? Author Type: Nurse Practitioner Type: [...] MD as PCP - General Barb Suggs APRN.HAY FARMER as Land Examiner (Internal Medicine) [facility] (Neurology) [facility] (Cardiology) Nargis Yin MD Vascular-[facility] Gomez Schwab DPM, Podiatry-[facility] Veneer Grader-Hugh Delacruz/Dr. Edward Adams Community Marketing Coordinator- Christian Merritt Medical/Family history review Reviewed and [...] discussed with the patient: Recording using ambient GoGoVan software for draft documentation of the visit was discussed with the patient/authorized customer service representative teller; all questions welcomed and answered. Patient/authorized customer service representative teller agreed to proceed Marie is a 75-year-old [...] He recently had two stents placed in [place] and is currently on Plavix, which he [...] heard. Pulmonary: Effort: (more content not included)... [facility] 03-04-2025 Telephone encounter Note Patient's request for medication is as follows: Requested Prescriptions Pending Prescriptions Disp Refills metoprolol tartrate, short acting, (LOPRESSOR) 25 mg tablet [Pharmacy Med Name: METOPROLOL TARTRATE 25 MG TAB] 360 tablet 0 Sig: TAKE 2 TABLETS BY MOUTH EVERY 12 HOURS Last seen in [place] 04/06/2024. Patient canceled 11/16/2024 follow up appointment. Notified pharmacy patient needs to schedule appointment for future refills Prescription(s) as above. Please process accordingly. Anabel Bhakta LPN [facility] 03-04-2025 Miscellaneous Notes Patient's request for medication is as follows: Requested Prescriptions Pending Prescriptions Disp Refills metoprolol tartrate, short acting, (LOPRESSOR) 25 mg tablet [Pharmacy Med Name: METOPROLOL TARTRATE 25 MG TAB] 360 tablet 0 Sig: TAKE 2 TABLETS BY MOUTH EVERY 12 HOURS Last seen in [place] 04/06/2024. Patient canceled 11/16/2024 follow up appointment. Notified pharmacy patient needs to schedule appointment for future refills Prescription(s) as above. Please process accordingly. Anabel Bhakta LPN documented in this encounter [facility] 02-23-2025 Note HNO ID: [id number] Author: GOMEZ SCHWAB, ? Service: ? Author [...] the left anterior leg, performed by a casing material weigher, is healing without issues. - Denies current smoking. - Denies burning sensation in feet; reports tingling and numbness. Neurological: (+) tingling, (+) numbness, (-) burning PAST MEDICAL HISTORY Diagnosis Date Atherosclerosis of [place] arteries of the extremities with intermittent claudication [...] (NSTEMI) 10/17/2013 Non-STEMI (non-ST elevated myocardial infarction) ([facility]) 01/30/2024 LISANDRO to distal RCA Nonspecific abnormal [...] - Left do (more content not included)... [facility] 02-23-2025 History of Present illness Narrative [...] the left anterior leg, performed by a casing material weigher, is healing without issues. - Denies current smoking. - Denies burning sensation in feet; reports tingling and numbness. Neurological: (+) tingling, (+) numbness, (-) burning PAST MEDICAL HISTORY Diagnosis Date Atherosclerosis of [place] arteries of the extremities with intermittent claudication [...] follow-up in 3 months Attestation Recording using SimpleGeo software for draft documentation of the visit was discussed with the patient/authorized customer service representative teller; all questions welcomed and answered. Patient/authorized customer service representative teller agreed to proceed Gomez Schwab DPM AMB ROOMING INTAKE FLOWSHEET DATA Patient presents with: Left Foot - Established Patient, Follow Up, Diabetic Foot Care, Numbness Right Foot - Established Patient, Follow Up, Diabetic Foot Care, Numbness Cheryle Merritt LPN documented in this encounter [facility] 02-23-2025 Instructions Gomez Schwab - 02/23/2025 10:45 [...] (or decreased sensation in your feet) a material analyst should always cut your toenails. Be Careful [...] Go to your health care provider or material analyst to treat these conditions. Continue to check [...] foot issues arise. documented in this encounter [facility] 02-23-2025 Note HNO ID: [id number] Author: CHERYLE MERRITT LPN Service: ? Author Type: LICENSED NURSE Type: Progress Notes Filed: 02/23/2025 12:47 Note Text: AMB ROOMING INTAKE FLOWSHEET DATA Patient presents with: Left Foot - Established Patient, Follow Up, Diabetic Foot Care, Numbness Right Foot - Established Patient, Follow Up, Diabetic Foot Care, Numbness Cheryle Merritt LPN [facility] 02-11-2025 Evaluation note Diagnosis Onset Date [...] 29, 2024 chronic February 11, 2025 1:10pm [facility] Work Phone: 1(932) 339-499504-17-2025 Evaluation note* Diagnosis Onset Date Resolution Status [...] of right hand acute May 06 1:58pm [employer] Work Phone: 1(160) 684-144504-07-2025 Telephone encounter Note* Telephone Encounter - Anabel [...] Anabel Ribera February 01, 2025 2:44 PM [facility]04-07-2025 Miscellaneous Notes* Telephone Encounter - Anabel Ospina [...] 01, 2025 2:44 PM [facility] Note12/31/24 1453 BPCI Outreach Assessment Selection Which [...] discharge services? No (Cardiac rehab scheduled at [place]) Any concerns with your DME equipment? N/A Any questions about your condition you are unsure about that I can help clarify? No Patient on BPCI Advanced: OP Patients Qualify for Cardiac Care and Cardiac Procedures from [facility] report 10/01/2024. EMR reviewed. Patient enrolled in [facility] Ambulatory Cardiac 90-day BPCI Program post-hospital discharge 09/30/24 Dx: PCI with IVL, LISANDRO to Left Main->Ramus Right radial artery used. Patient has a past medical history of DM with neuropathy, HTN, HLD, family history of premature CAD, prior tobacco use (quit), ocular TIA. He had a CABG in 2012. In January 2024, he had a NSTEMI and went to recyclable products sorter. WRIGHT to LAD was patent. At that time distal RCA was stented. He also had a severely stenotic calcified distal left main and ostial ramus. 90-day BPCI outreach made 12/01/24 patient doin well Cardiac Rehab scheduled at [place]. BPCI program is complete able to avoid any hospital readmissions during 90-day BPCI period case closed.[facility]03-04-2025 Note12/29/24 1249 General Care Management Assessment completed with: Patient Enrolled in care management program: Yes Living arrangement: Spouse Support system: Spouse Type of residence: Private residence Home care services: No Equipment used at home: None Communication device: Yes Bed or wheelchair confined: No Inadequate nutrition: No Medication adherence problem: No Difficulty keeping appointments: [facility]01-23-2025 History of Present illness Narrative* [...] polyneuropathy associated with type 2 diabetes mellitus ([facility]) (I73.9) PAD (peripheral artery disease) ([facility]) Plan: Patient was seen and evaluated. Nails [...] Care Cheryle Merritt LPN [facility] NoteHNO ID: [id number] Author: GOMEZ SCHWAB, ? Service: ? Author [...] Objective: Patient presents to clinic ambulating in [facility] Vasc: DP and PT pulses [...] mellitus (HCC) (I73.9) PAD (peripheral artery disease) ([facility]) Plan: Patient was seen and evaluated. Nails [...] to RTC in 3-4 months. Gomez Schwab [facility]01-23-2025 Instructions* Patient Instructions* Gomez Schwab - 11/19/2024 [...] (or decreased sensation in your feet) a material analyst should always cut your toenails. Be Careful [...] Go to your health care provider or material analyst to treat these conditions. [facility]25 NoteHNO ID: [id number] Author: CHERYLE MERRITT LPN Service: ? Author Type: LICENSED NURSE Type: Progress Notes Filed: 11/19/2024 11:31 Note Text: AMB ROOMING INTAKE FLOWSHEET DATA Risk Screening Do you have concerns about personal safety or safety in the home?: No Patient presents with: Left Foot - Established Patient, Follow Up, Diabetic Foot Care Right Foot - Established Patient, Follow Up, Diabetic Foot Care Cheryle Merritt [facility]01-17-2025 NoteHNO ID: [id number] Author: SHER JULES MD Service: ? Author Type: Physician Type: Progress Notes Filed: 11/13/2024 13:56 Note Text: This note was created using Kofikaferiter. Subjective Marie Hutson is a 74 year [...] Mixed Sleep Apnea Coronary Artery Disease Involving [place] Coronary Artery of [place] Heart Without Angina Pectoris Obesity, Class I, [...] Z95.5 2023. DAPT until 2024. Sher Jules [facility]01-17-2025 History of Present illness Narrative* Sher Jules MD - 11/13/2024 1:18 PM EST This note was created using Kofikaferiter. Subjective Marie Hutson is a 74 year [...] Mixed Sleep Apnea Coronary Artery Disease Involving [place] Coronary Artery of [place] Heart Without Angina Pectoris Obesity, Class I, [...] 2024. Sher Jules MD [facility]25 NoteHNO ID: [id number] Author: PALAK ROSALES LPN Service: ? Author [...] Palak Rosales LPN November 11, 2024 2:06 [facility]01-15-2025 History of Present illness Narrative* Palak [...] 11, 2024 2:06 PM [facility]24 NoteEMR reviewed. Patient on BPCI Advanced: OP Patients Qual[facility] Cardiac Care and [facility] 10[facility]01/2024. EMR reviewed. Patient enrolled in [facility] Cardiac 90-day BPCI Program post-hospital discharge 09/30/24 Dx: PCI with IVL, LISANDRO to Left Main->Ramus Right radial artery used. Patient has a past medical history of DM with neuropathy, HTN, HLD, family history of premature CAD, prior tobacco use (quit), ocular TIA. He had a CABG in 2012. In January 2024, he had a NSTEMI and went to recyclable products sorter. WRIGHT to LAD was patent. At that [...] out with any concerns. Future outreach scheduled.[facility]12-10-2024 Note Patient on BPCI Advanced: OP Patients Qualify for Cardiac Care and Cardiac Procedures from [facility] report 10/01/2024. EMR reviewed. Patient enrolled in [facility] Cardiac 90-day BPCI Program post-hospital discharge 09/30/24 Dx: PCI with IVL, LISANDRO to Left Main->Ramus Right radial artery used. Patient has a past medical history of DM with neuropathy, HTN, HLD, family history of premature CAD, prior tobacco use (quit), ocular TIA. He had a CABG in 2012. In January 2024, he had a NSTEMI and went to recyclable products sorter. WRIGHT to LAD was patent. At that time distal RCA was stented. He also had a severely stenotic calcified distal left main and ostial ramus. BPCI outreach made unable to reach patient call forwarded to and then ended unable to leave a voice mail. Future outreach scheduled. Follow up 10/30/24 [facility] BOBBY Gan CNP Nurse Practitioner [...] Problem List Diagnosis Coronary artery disease involving [place] coronary artery of [place] heart without angina pectoris EKG: IMPRESSION: Sinus bradycardia Prolonged RI interval Borderline ST elevation, anterior leads TELEMETRY: [...] he had a NSTEMI and went to recyclable products sorter. WRIGHT to LAD was patent. At that [...] his medication list. Verified with his primary restaurant associate office, and he was to discontinue carvedilol [...] atorvastatin. HTN- contin (more content not included)...[facility]12-05-2024 Note Patient on BPCI Advanced: OP Patients Qualify for Cardiac Care and Cardiac Procedures from [facility] report 10/01/2024. EMR reviewed. Patient enrolled in [facility] Ambulatory Cardiac 90-day BPCI Program post-hospital [...] Problem List Diagnosis Coronary artery disease involving [place] coronary artery of [place] heart without angina pectoris EKG: IMPRESSION: Sinus bradycardia Prolonged RI interval Borderline ST elevation, anterior leads TELEMETRY: SB 49 Procedures: Cath Summary: 09/30/24: Final report pending. PCI with IVL, LISANDRO to Left Main->Ramus Right radial artery used. HOSPITAL COURSE : Mr. Hutsno is a 74 year old male known to Dr. Simeon who presents today for PCI by Dr. Collins. He has a past medical history of DM with neuropathy, HTN, HLD, family history of premature CAD, prior tobacco use (quit), ocular TIA. He had a CABG in 2012. In January 2024, he had a NSTEMI and went to recyclable products sorter. WRIGHT to LAD was patent. At that [...] his medication list. 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 Follow up with Dr. Simeon. Secondary Discharge diagnosis: HLD- continue atorvastatin. HTN- continue metoprolol, clonidine, amlodipine, lisinopril. DM2- m (more content not included)...[facility] [id number] NoteName: Marie Hutson Date of : 1950 Date of Admission: 09/30/2024 Date of Discharge: 09/30/2024 Admitting physician: Sergei Collins MD Discharge Attending: Xochitl Solano APRN - HAY FARMER Primary Care Physician: Sher Jules Review of [...] Problem List Diagnosis Coronary artery disease involving [place] coronary artery of [place] heart without angina pectoris EKG: IMPRESSION: Sinus bradycardia Prolonged RI interval Borderline ST elevation, anterior leads TELEMETRY: [...] he had a NSTEMI and went to recyclable products sorter. WRIGHT to LAD was patent. At that [...] his medication list. 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 Follow up with Dr. Simeon. Secondary Discharge [...] not medically i (more content not included)...[facility]12-04-2024 Hospital course Narrative* BOBBY Gan CNP [...] Problem List Diagnosis Coronary artery disease involving [place] coronary artery of [place] heart without angina pectoris EKG: IMPRESSION: Sinus bradycardia Prolonged RI interval Borderline ST elevation, anterior leads TELEMETRY: [...] he had a NSTEMI and went to recyclable products sorter. WRIGHT to LAD was patent. At that [...] his medication list. Verified with his primary restaurant associate office, and he was to discontinue carvedilol and continue metoprolol, which patient was advised of. Recommend a follow up in [address] Simoen office who I contacted. Last Labs: No [...] Cardiac Rehab The Cardiac Rehab team at [facility] consists of highly skilled exercise physiologists, [...] your heart. We have facilities at both [facility] and [facility]. At both locations we have street level parking which is free and our sites are easily accessible. For both metzes you can contact us at . We invite you to call us with your questions or to get started in our program. If you have other questions or concerns be sure to ask your provider during your follow up visit. We look forward to seeing you there. Our locations: [facility] [address] [facility] [address] Ground Floor [id number] - Ground floor BMI Classification: Overweight (BMI 25.0-29.9) DIET: A lowfat, low cholesterol diet was discussed with the patient. Discharge to Home Condition at Discharge: stable Follow up with cardiology Dr. Simeon on October 14, in 2 weeks. If any questions call [facility] Cardiology-[facility] office [phone] Total time spent for Discharge time greater than 31 minutes Cosigned by Sergei Collins MD at 09/30/2024 9:57 PM EST documented in this [facility]12-04-2024 Hospital Discharge instructions* Discharge Instructions* BOBBY Gan CNP - 09/30/2024 12:19 PM EST Restart Metformin Saturday. Stop carvedilol and HCTZ (this was stopped by [facility]). Continue all same medications. Follow up with Dr. Simeon. We recommend a follow up in 2 weeks. Call your doctor with any medication questions or if you notice any side effects from your medications. If you are unable to fill your medications, please call your Cell Technician immediately. The office number is located [...] for 24 hours. GIVE PCI PACKET (FROM HOOKER UP) TO PATIENT Give Coronary Artery Discharge Booklet [...] Cardiac Rehab The Cardiac Rehab team at [facility] consists of highly skilled exercise physiologists, [...] your heart. We have facilities at both [facility] and [facility]. At both locations we have street level parking which is free and our sites are easily accessible. For both [facility] you can contact us at . We invite you to call us with your questions or to get started in our program. If you have other questions or concerns be sure to ask your provider during your follow up visit. We look forward to seeing you there. Our locations: [facility] [address] Floor [id number] - Ground floor documented in this [facility]12-04-2024 Attending History and physical note* Sergei Collins MD - 09/30/2024 10:57 AM EST H&P reviewed. The patient was examined and there are no changes to the H&P. Source Note - BOBBY Rao CNP - 09/29/2024 2:25 PM EST Images from the original note were not included. ADDENDUM: Pt scheduled for [facility] with Dr. Collins on 09/30/24 at 11:00AM. [...] no history of HF Frailty Score :[facility] Protocol: No H+ P copied to chart from Dr. Collins's progress note dated 09/16/[address] Collins. [facility] Cardiovascular Medicine [facility] [address] [facility] [address] Dept: [phone] Dept Loc: [phone] DATE of SERVICE: 09/16/24 TIME of SERVICE: [...] He is followed by Dr. Simeon at [facility]. He had an NSTEMI in January 2024. [...] CREATININE @LASTCMP@ No results found for: TSH, Y1IDZHZ, E2FJDEQ, THYROIDAB No results found for: HGBA1C No [...] CLINIC PERFORMED 2. Coronary artery disease involving [place] coronary artery of [place] heart without angina pectoris - Case Request Advertising Specialist: Left heart cath / coronary angiography w [...] after Thanksgiving. Sergei Collins MD, RAH, FAC, [facility] Supply Service Worker, Department of Cardiovascular Disease Medical Insurance Claims Processor, [facility] Heart and V[facility] [place] Medical Insurance Claims Processor, [facility] Anticoagulation Management Service Interventional Cardiology Clinical Professor of Internal Medicine, [facility]-[place] [id number] p [phone] f [phone] [email or web address] [facility] Cosigned by Sergei Collins MD at 09/30/2024 9:57 PM EST [id number] NoteH&P reviewed. The patient was examined and there are no changes to the H&P.[facility]12-04-2024 History and physical note* Sergei Collins MD - 09/30/2024 10:57 AM EST H&P reviewed. The patient was examined and there are no changes to the H&P. Source Note - Bárbara Russell Larissaernie, OFFICE MACHINE PUNCH OPERATOR - [employer] F[employer]ER - 09/29/2024 2:25 PM EST Images from the original note were not included. ADDENDUM: Pt scheduled for [facility] with Dr. Collins on 09/30/24 at 11:00AM. [...] dated 09/16/[address] Collins. [facility] Cardiovascular Medicine [address] [address] Dept: [phone] Dept Loc: [phone] DATE of SERVICE: 09/16/24 TIME of SERVICE: [...] He is followed by Dr. Simeon at [facility]. He had an NSTEMI in January 2024. [...] CREATININE @LASTCMP@ No results found for: TSH, H8BUNEW, D3JAJBY, THYROIDAB No results found for: HGBA1C No [...] CLINIC PERFORMED 2. Coronary artery disease involving [place] coronary artery of [place] heart without angina pectoris - Case Request Advertising Specialist: Left heart cath / coronary angiography w grafts - Basic metabolic panel - CBC 3. Stented coronary artery 4. S/P CABG x 3 5. Family history of chronic ischemic heart disease 6. Diabetes mellitus type 2 in nonobese (CMS/HCC) ([facility]) 7. Primary hypertension 8. Mixed hyperlipidemia I [...] after Thanksgiving. Sergei Collins MD, RAH, FACC, [facility] Supply Service Worker, Department of Cardiovascular Disease Medical Insurance Claims Processor, [facility] [place] Medical Insurance Claims Processor, [facility] Anticoagulation Management Service Interventional Cardiology Clinical Professor of Internal Medicine, [facility] Cardiology-[address] [place] [address] p [phone] f [phone] [email or web address] Cosigned by Sergei Collins MD at 09/30/2024 9:57 PM EST documented in this [facility]12-04-2024 Note* Pre-Sedation Documentation - Sergei Collins MD [...] and proceed to administer sedation as planned. [facility] [id number] Note* Pre-Sedation Documentation - Sergei Collins MD [...] and proceed to administer sedation as planned. [id number] Miscellaneous Notes* Pre-Sedation Documentation - Sergei Collins [...] administer sedation as planned. documented in this [facility]12-03-2024 NoteADDENDUM: Pt scheduled for LHC with Dr. [...] dated 09/16/[address] Collins. [facility] Cardiovascular Medicine [address] [address] Dept: [phone] Dept Loc: [phone] DATE of SERVICE: 09/16/24 TIME of SERVICE: [...] He is followed by Dr. Simeon at [facility]. He had an NSTEMI in January 2024. [...] Nose normal. Mouth/Throat: (more content not included)...[facility]12-03-2024 NoteADDENDUM: Pt scheduled for LHC with [...] no history of HF [facility] :[facility]: No H+ P copied to chart from Dr. Collins's progress note dated 09/16/[address] Collins. [facility] Cardiovascular Medicine [facility] [address] [facility] [address] Dept: [phone] Dept Loc: [phone] DATE of SERVICE: 09/16/24 TIME of SERVICE: [...] He is followed by Dr. Simeon at [facility]. He had an NSTEMI in January 2024. [...] Nose normal. Mouth/Throat: (more content not included)...[facility]11-20-2024 NoteDx: CAD Procedure: [facility] Date/Time: 09/30/24 at 11am Surgeon: Karina Location: [facility] Admission: OUTPATIENT Patient is aware of date and time of procedure, added to [place] calendar, CATH placed on [facility]11-20-2024 History of Present illness Narrative* Sergei Collins MD - 09/16/2024 2:00 PM EST Images from the original note were not included. [facility] Cardiovascular Medicine [facility] [address] [facility] [address] Dept: [phone] Dept Loc: [phone] DATE of SERVICE: 09/16/24 TIME of SERVICE: [...] He is followed by Dr. Simeon at [facility]. He had an NSTEMI in January 2024. [...] CREATININE @LASTCMP@ No results found for: TSH, E4NPORQ, O7IYWEN, THYROIDAB No results found for: HGBA1C No [...] CLINIC PERFORMED 2. Coronary artery disease involving [place] coronary artery of [place] heart without angina pectoris - Case Request Advertising Specialist: Left heart cath / coronary angiography w [...] week after Thanksgiving. Sergei Collins MD, RAH, [facility], [facility] Supply Service Worker, Department of Cardiovascular Disease Medical Insurance Claims Processor, [facility] [place] Medical Insurance Claims Processor, [facility] Anticoagulation Management Service Interventional Cardiology Clinical Professor of Internal Medicine, [facility] Cardiology-[address] [address] p [phone] f [phone] [email or web address] Disclaimer Captured images seen in this note from are not a substitute for a comprehensive interpretation of the entire data set as reflected by the interpreting physician with regard to radiology, echocardiography, and other diagnostic images. This note may have been dictated using [employer] Practice Edition 2.6 and/or The Society Voice Recognition Feature. The document was proofread, however unrecognized voice recognition ceramic tiler errors may be present. documented in this [facility]11-19-2024 Telephone encounter Note* Telephone Encounter - Suellen Donovan RN - 09/15/2024 11:01 AM EST Patient calls and states that restaurant associate had changed his medications. Patient is not taking hydrochlorothiazide 25 mg daily and Atorvastatin 40 mg daily (patient was previously on 80 mg). Suellen Donovan RN [facility]11-19-2024 Miscellaneous Notes* Telephone Encounter - Suellen Donovan RN - 09/15/2024 11:01 AM EST Patient calls and states that restaurant associate had changed his medications. Patient is not taking hydrochlorothiazide 25 mg daily and Atorvastatin 40 mg daily (patient was previously on 80 mg). Suellen Donovan RN documented in this [facility]24 Telephone encounter Note * Telephone Encounter - Suellen Donovan RN - 09/15/2024 10:41 AM EST Patient notified of results and provider's instructions. Patient verbalizes understanding. Suellen Donovan RN [facility]11-19-2024 Miscellaneous Notes* Telephone Encounter - Suellen Donovan [...] do in 2-3 weeks. documented in this encounterSelect [facility]-2024 Telephone encounter Note * Telephone Encounter - Chloé Hernández RN - 09/15/2024 9:11 AM EST Called and left a voicemail for the patient to call back and ask for a nurse to receive the providers message. Also sent MyChart msg [facility]11-18-2024 Telephone encounter Note* Telephone Encounter - Palak Rosales LPN - 09/14/2024 1:18 PM EST Left message to call & speak to nurse re: results. Palak Rosales LPN [facility]11-18-2024 Telephone encounter Note* Telephone Encounter - Palak Rosales LPN - 09/14/2024 1:16 PM EST ----- Message from Sher Jules MD sent at 09/13/2024 2:02 PM EST ----- Hyponatremia. Hyperkalemia. Mild anemia. Follow up lab tests needed. Please do in 2-3 weeks. [facility]11-15-2024 NoteHNO ID: [id number] Author: SHER JULES MD Service: ? Author Type: Physician Type: Progress Notes Filed: 09/11/2024 12:11 Note Text: This note was created using SiftyNet. Subjective Patient presents with: 6 Month Exam [...] Mixed Sleep Apnea Coronary Artery Disease Involving [place] Coronary Artery of [place] Heart Without Angina Pectoris Obesity, Class I, [...] Plan ASSESSMENT/PLAN: 1. Coronary artery disease involving [place] coronary artery of [place] heart without angina pectoris - ICD9: 414.01, ICD10: I25.10 (primary diagnosis) Stable. 2. Stented coronary artery - ICD9: V45.82, ICD10: Z95.5 Colonoscopy deferred till January 2025. 3. 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 - COMPLETE BLOOD COUNT 4. Hyperlipidemia with target LDL less than 70 - ICD9: 272.4, ICD10: E78.5 - Control undetermined, due for labs - Continue current medications - COMPREHENSIVE METABOLIC PANEL - LIPID PANEL, NONFASTING 5. Well controlled type 2 diabetes mellitus with neurological manifestations (more content not included)...[facility]11-15-2024 History of Present illness Narrative* Sher Jules MD - 09/11/2024 11:16 AM EST This note was created using Kofikaferiter. Subjective Patient presents with: 6 Month Exam [...] Mixed Sleep Apnea Coronary Artery Disease Involving [place] Coronary Artery of [place] Heart Without Angina Pectoris Obesity, Class I, [...] Plan ASSESSMENT/PLAN: 1. Coronary artery disease involving [place] coronary artery of [place] heart without angina pectoris- ICD9: 414.01, ICD10: I25.10 (primary diagnosis) Stable. 2. Stented coronary artery - ICD9: V45.82, ICD10: Z95.5 Colonoscopy deferred till January 2025. 3. 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 - COMPLETE BLOOD COUNT 4. Hyperlipidemia with [...] URINE Sher Jules MD documented in this encounterSelect [facility]-2024 Telephone encounter Note * Telephone Encounter - [...] Lovell MA July 03, 2024 11:30 AM [facility]09-06-2024 Miscellaneous Notes* Telephone Encounter - Jayson Lovell [...] 03, 2024 11:30 AM documented in this encounterSelect [facility]-2024 Telephone encounter Note * Telephone Encounter - [...] Lovell MA July 03, 2024 10:31 AM [facility]-06-2024 Miscellaneous Notes* Telephone Encounter - Jayson Lovell [...] 03, 2024 10:31 AM documented in this encounterSelect [facility]-30-2024 NoteHNO ID: [id number] Author: GOMEZ SCHWAB, ? Service: ? Author [...] Objective: Patient presents to clinic ambulating in [facility] Vasc: DP and PT pulses are faintly [...] to RTC in 3-4 months. Gomez Schwab [facility]08-30-2024 History of Present illness Narrative* Gomez Schwab [...] Objective: Patient presents to clinic ambulating in [facility] Vasc: DP and PT pulses are faintly [...] Care Cheryle Merritt LPN documented in this encounterSelect Medical [facility]08-30-2024 NoteHNO ID: [id number] Author: CHERYLE MERRITT LPN Service: ? Author Type: LICENSED NURSE Type: Progress Notes Filed: 06/26/2024 13:20 Note Text: AMB ROOMING INTAKE FLOWSHEET DATA Patient presents with: Left Foot - Established Patient, Follow Up, Diabetic Foot Care Right Foot - Established Patient, Follow Up, Diabetic Foot Care [facility] Telephone encounter Note* Telephone Encounter - Palak Rosales LPN - 06/16/2024 11:57 AM EDT Patient has refill for Metformin at [facility], written 02/25/2024. Marie will contact his pharmacy. Palak Rosales LPN [facility]08-20-2024 Miscellaneous Notes* Telephone Encounter - Palak Rosales LPN - 06/16/2024 11:57 AM EDT Patient has refill for Metformin at [facility], written 02/25/2024. Marie will contact his pharmacy. Palak Rosales LPN documented in this encounterSelect Medical [facility]06-11-2024 History of Present illness Narrative* Nargis Yin, - 04/07/2024 9:17 AM EDT Images from the original note were not included. Heart , V[facility] and Thoracic [place] DEPARTMENT OF VASCULAR SURGERY OUTPATIENT VISIT DATE [...] patches (vein to each profunda, Bovine to COREMAKING SUPERVISOR to SFA origins. Extensive profundaplasty on left. November 2009 Hx L SFA atherectomy complicated by thrombus requiring thrombolysis and stent of popliteal. September 07, 2010 RLE CONSTRUCTION CREW MEMBER to 3mm, Atheterctomy and CONSTRUCTION CREW MEMBER to 6mm. Also with right retrograde PT access. Left stent was patent at that time with 80% stenosis of distal popliteal. R with 80% profunda lesion. PAST MEDICAL HISTORY Diagnosis Date Atherosclerosis of [place] arteries of the extremities with intermittent claudication 09/07/2010 BENIGN NEOPLASM LG BOWEL 07/29/2008 Tubular adenoma. 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 Coronary artery disease Dermatophytosis of nail 12/29/2007 Diabetic peripheral neuropathy (HCC) 05/17/2014 DVT of leg (deep venous thrombosis) ([facility]) 11/16/2013 post-op CABG, rx with Xarelto Hypertrophy of prostate without urinary obstruction and other lower urinary tract symptoms (LUTS) 12/29/2007 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/29/2007 Non-ST elevation myocardial infarction (NSTEMI) 10/17/2013 Nonspecific abnormal results of liver function study 04/29/2008 Obesity, unspecified 12/29/2007 Other and unspecified hyperlipidemia PAD (peripheral artery disease) ([facility]) 08/05/2009 Personal history of other malignant neoplasm [...] 180 days. Miscellaneous Medical Supply (COMPRESSION STOCKINGS) [facility] COMPRESSION STOCKINGS KNEE HI 20-30 WT M79.89 [...] 2024 TIME: 9:18 AM documented in this encounterSelect Medical [facility]ty [facility]ull06-11-2024 History of Present illness Narrative* Gem Bass MD - 04/07/2024 8:10 AM EDT HISTORY AND PHYSICAL Marie Hutson 1950 REFERRING PHYSICIAN: Sher Jules MD CHIEF COMPLAINT: Colonoscopy Consult (Last colonoscopy 11/2018) HPI: The patient is a 74 year old male referred for endoscopy. Marie notes recent ID in January of this year; he had two stents placed for CAD. He is presently on plavix. He denies blood in stools; he denies abdominal pain; he denies changes in bowel habit.s He had a colonoscopy in 2019 with findings of a tubular adenoma He denies chest pain or shortness of breath. PAST MEDICAL HISTORY Diagnosis Date Atherosclerosis of [place] arteries of the extremities with intermittent claudication 09/07/2010 BENIGN NEOPLASM LG BOWEL 07/29/2008 Tubular adenoma. 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 Coronary artery disease Dermatophytosis of nail 12/29/2007 Diabetic peripheral neuropathy (HCC) 05/17/2014 DVT of leg (deep venous thrombosis) ([facility]) 11/16/2013 post-op CABG, rx with Xarelto Hypertrophy of prostate without urinary obstruction and other lower urinary tract symptoms (LUTS) 12/29/2007 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/29/2007 Non-ST elevation myocardial infarction (NSTEMI) 10/17/2013 Nonspecific abnormal results of liver function study 04/29/2008 Obesity, unspecified 12/29/2007 Other and unspecified hyperlipidemia PAD (peripheral artery disease) ([facility]) 08/05/2009 Personal history of other malignant neoplasm of skin 11/05/2010 skin cancer Postoperative anemia 10/25/2013 Transfused on 10/25 1 U PRBC. H&H 9.2/26.3. DC on diuretic taper for dilutional component and MVI with iron and repeat as outpt Primary osteoarthritis of left knee 02/21/2018 [facility]. Type II or unspecified [...] 180 days. Miscellaneous Medical Supply (COMPRESSION STOCKINGS) [facility] COMPRESSION STOCKINGS KNEE HI 20-30 WT M79.89 [...] Assessment IMPRESSION: history of colon polyp, recent ID PLAN: I have discussed the above with the patient. Given his recent ID, it would be reasonable to postpone colonoscopy [...] colonic polyps (I25.10) Coronary artery disease involving [place] coronary artery of [place] heart, unspecified whether angina present I have confirmed and edited as necessary, the PFSH and ROS obtained by others. Consultation requested by Dr. Sher Jules for an opinion regarding patient's history of colon polyp and recent ID. My final recommendations will be communicated back to the requesting physician by way of shared Medical record or letter to requesting physician via US mail. Medical Decision Making: Problems: Low: Stable chronic illness Risk: Low: Low risk from testing/treatment Medical Decision Making Level: 3 - Low Gem Bass MD documented in this encounterSelect Medical [facility]06-10-2024 History of Present illness Narrative* Bib Patterson MD - 04/06/2024 5:28 PM EDT Images from the original note were not included. Bbi Patterson MD Interventional Cardiology [address] [place] [address] [phone] Chief Complaint Patient presents with: Follow Up HISTORY OF PRESENT ILLNESS: Mr. 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 Coronary artery disease Dermatophytosis of nail 12/29/2007 Diabetic peripheral neuropathy (HCC) 05/17/2014 DVT of leg (deep venous thrombosis) ([facility]) 11/16/2013 post-op CABG, rx with Xarelto Hypertrophy of prostate without urinary obstruction and other lower urinary tract symptoms (LUTS) 12/29/2007 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/29/2007 Non-ST elevation myocardial infarction (NSTEMI) 10/17/2013 Nonspecific abnormal results of liver function study 04/29/2008 Obesity, unspecified 12/29/2007 Other and unspecified hyperlipidemia PAD (peripheral artery disease) ([facility]) 08/05/2009 Personal history of other malignant neoplasm of skin 11/05/2010 skin cancer Postoperative anemia 10/25/2013 Transfused on 10/25 1 U PRBC. H&H 9.2/26.3. DC on diuretic taper for dilutional component and MVI with iron and repeat as outpt Primary osteoarthritis of left knee 02/21/2018 [facility]. Type II or unspecified [...] marginal Status post drug-eluting stent to the [place] right continue medical therapy 4. Coronary artery disease involving [place] coronary artery of [place] heart without angina pectoris- ICD9: 414.01, ICD10: [...] to correct any errors. documented in this encounterSelect Medical Specialty [facility]ull06-10-2024 Instructions* Patient Instructions* Gem Bass MD - [...] If you do not have a responsible semi truck driver (family member or friend) with [...] preparation solution at your local pharmacy [facility] 09/2019 Bowel Preparation Instructions for: Golytely, [...] your exam. 2 09/2019 documented in this encounterSelect Medical Specialty [facility]05-17-2024 History of Present illness Narrative* Gomez Schwab [...] right foot (I73.9) PAD (peripheral artery disease) ([facility]) (E11.42) Diabetic polyneuropathy associated with type 2 [...] Care Cheryle Merritt LPN documented in this encounterSelect Medical Specialty [facility]ull05-16-2024 NoteHNO ID: [id number] Author: ADILENE SANCHEZ APRN.CNM Service: Nuclear Medicine Author Type: Hand Pleater Type: Progress Notes Filed: 03/12/2024 09:38 Note [...] PATIENT PRESENTS WITH AN IMPLANTABLE OR ATTACHED HEAD OF BUSINESS DEVELOPMENT: No CREATININE: Creatinine Date Value Ref Range [...] Discontinued PROCEDURE TYPE: NM Stress: 13.27 mCi Ck20l-Dbvmsxa was administered IV for Rest Imaging at 07:25 by JEVANGELINA. 33.96 mCi Ps66a-Chojzzu was administered IV for Stress Imaging at 08:07 by JEVANGELINA. ADMINISTRATION TIME: 07:25 PATIENT DISCHARGED TO: Ambulatory patient, left [place] department area. A Diagnostic radioactive procedure has taken place, with no further precautions necessary other than routine body substance precautions. More information regarding radiation safety can be found using this link: [email or web address]%20Nuclear%20Medicine%20Procedures.pdf SIGNATURE: Adilene Sanchez APRN.CNM PATIENT NAME: Marie Hutson DATE: March 12, 2024 TIME: 9:37 AM [phone] History of Present illness Narrative* Adilene Sanchez [...] PATIENT PRESENTS WITH AN IMPLANTABLE OR ATTACHED HEAD OF BUSINESS DEVELOPMENT: No CREATININE: Creatinine Date Value Ref Range [...] Discontinued PROCEDURE TYPE: NM Stress: 13.27 mCi Lo76a-Cvqkzad was administered IV for Rest Imaging at 07:[facility]. 33.96 mCi Lx07v-Yilvybm was administered IV for Stress Imaging at 08:[address] [facility]. ADMINISTRATION TIME: 07:25 PATIENT DISCHARGED TO: Ambulatory patient, left [place] department area. A Diagnostic radioactive procedure has taken place, with no further precautions necessary other than routine body substance precautions. More information regarding radiation safety can be found usingthis link: [email or web address]%20Nuclear%20Medicine%20Procedures.pdf SIGNATURE: Adilene Sanchez APRN.CNM PATIENT NAME: Marie Hutson DATE: March 12, 2024 TIME: 9:37 AM PAGER/CONTACT #: documented in this encounterSelect Medical Specialty [facility]05-15-2024 Telephone encounter Note * Telephone Encounter - Edelmira Wilks RN - 03/11/2024 1:16 PM EDT Left message regarding reminder and instructions for stress test tomorrow. This included where to check in, length of test and no caffeine for 12 hours prior to test, [facility]-15-2024 Miscellaneous Notes* Telephone Encounter - Edelmira Wilks RN - 03/11/2024 1:16 PM EDT Left message regarding reminder and instructions for stress test tomorrow. This included where to check in, length of test and no caffeine for 12 hours prior to test, documented in this encounterSelect Medical [facility]-15-2024 History of Present illness Narrative* Sher Jules MD - 03/11/2024 12:50 PM EDT This note was created using SiftyNet. Subjective Marie Hutson is a 74 year [...] Mixed Sleep Apnea Coronary Artery Disease Involving [place] Coronary Artery of [place] Heart Without Angina Pectoris Obesity, Class I, [...] 180 days. Miscellaneous Medical Supply (COMPRESSION STOCKINGS) [facility] COMPRESSION STOCKINGS KNEE HI 20-30 WT M79.89 [...] - stable. 5. Coronary artery disease involving [place] coronary artery of [place] heart without angina pectoris- ICD9: 414.01, ICD10: [...] Vascular-[facility] Gomez Schwab DPM, Podiatry-[facility] Outside Specialist: Veneer Grader-Hugh Delacruz/Dr. Edward Adams Community Marketing Coordinator- Christian [facility] Medical/Family history review Reviewed and [...] in the past 6 weeks? Yes / ID 01/28/2024, [facility] for ID 8. Have you had difficulty with anesthesia [...] access questionnaires to [facility] Pool #[id number] documented in this encounterSelect Medical [facility]-15-[facility]24 Instructions* Patient Instructions* Sher Jules MD - 03/11/2024 11:30 AM EDT FASTING LABS ANY TIME SOON, PLUS URINE TESTING. documented in this encounterSelect Medical Specialty [facility]04-30-2024 Telephone encounter Note * Telephone Encounter - Anabel Ospina - 02/25/2024 10:32 AM EDT Pharmacy verified in [facility] Patient has been identified by name and [...] oz) Not applicable Please advise. Anabel Ribera [facility]04-30-2024 Miscellaneous Notes* Telephone Encounter - Anabel Ospina - 02/25/2024 10:32 AM EDT Pharmacy verified in [facility] Patient has been identified by name and [...] advise. Anabel Nguyen Pss documented in this encounterSelect Medical Specialty [facility]04-15-2024 History of Present illness Narrative* Bib Patterson MD - 02/10/2024 4:16 PM EDT Images from the original note were not included. Bib Patterson MD Interventional Cardiology [address] [place] [address] Chief Complaint Patient presents with: Hospital F/U [...] marginal artery years ago recently admitted to [facility] because of unstable angina repeat cardiac catheterization revealedpatent WRIGHT to the LAD severe calcified [place] left main disease with patent vein graft [...] PAST MEDICAL HISTORY Diagnosis Date Atherosclerosis of [place] arteries of the extremities with intermittent claudication [...] outpt Primary osteoarthritis of left knee 02/21/2018 [facility]. Type II or unspecified [...] tablet 3 Miscellaneous Medical Supply (COMPRESSION STOCKINGS) [facility] COMPRESSION STOCKINGS KNEE HI 20-30 WT M79.89 [...] injection (LEXISCAN) 0.4 mg INTRAVENOUS DIRECTED PRBib oBone MD aminophylline 50-250 mg injection 50-250 mg [...] Plan: 75 years old gentleman with severe [place] coronary artery disease and history of bypass [...] medical therapy - CARDIAC RE[place] ([place] CARDIAC PERF STRESS/PHARM - REGADENOSON [...] to correct any errors. documented in this encounterSelect Medical Specialty Hospital [facility]04-12-2024 History of Present illness Narrative* Sher Jules MD - 02/07/2024 1:52 PM EDT This note was created using Kofikaferiter. Subjective Patient presents with: Hospital F/U: D/c from [facility] on 01/29 for chest pain an [...] Mixed Sleep Apnea Coronary Artery Disease Involving [place] Coronary Artery of [place] Heart Without Angina Pectoris Obesity, Class I, [...] with meals. Miscellaneous Medical Supply (COMPRESSION STOCKINGS) [facility] COMPRESSION STOCKINGS KNEE HI 20-30 WT M79.89 [...] decreasing. Sher Jules MD documented in this encounterSelect Medical Specialty [facility]04-11-2024 Miscellaneous Notes* Telephone Encounter - Manda Duran MA - 02/06/2024 12:46 PM EDT Pt's notified that requested images have been received and are uploaded to [employer]. Pt scheduled 3pm Saturday per Dr. Patterson request. Manda Duran MA * Telephone Encounter - Christine Arguelles LPN - 02/04/2024 2:55 PM EDT Patients called. Verified name and date of . Thi informed of message left for her. Christine Arguelles LPN * Telephone Encounter - Manad Duran MA - 02/04/2024 1:17 PM EDT Left message to let know that we have requested actual images be pushed to [facility] for his review. Manda Duran MA * Telephone Encounter - Manda Duran MA - 02/03/2024 11:53 AM EDT [facility] notified of need for images of [...] to update Dr. Patterson. Pt went to [facility] with chest pain and was admitted. [...] that Dr. Patterson review his records from [facility] and let them know who he would recommend for the referral. The CTA and HC notes are scanned into [facility]. Asking that we call back to pt's . [phone] Please review and advise. Manda Duran MA documented in this encounterSelect Medical Specialty [facility]04-08-2024 History of Present illness Narrative* Marcela Perrin, [...] years. Marcela Perrin, RN documented in this encounterSelect Medical Specialty Hospital [facility]04-05-2024 History of Present illness Narrative* Lorraine BeebeFAVIAN - 01/31/2024 2:49 PM EDT TRANSITION CARE MANAGEMENT (TCM) INITIAL CONTACT Director Hardware Outreach Provider Action/FYI: TCM Initial contact with patient post discharge, spoke to patient. Patient identified by name and . TRANSITION CARE MANAGEMENT INITIAL OUTREACH DOCUMENTATION: 01/31/2024 Date of Outreach: Outreach Attempt 1: Contact Made Date of Discharge 01/30/2024 SUMMARY: -Pt discharged from [facility] on 02/19/24. -Admitted for: acute chest [...] medicines at this time. documented in this encounterSelect Medical Specialty Hospital [facility]04-04-2024 Discharge summary Author Debby Machuca [facility] January 30, 2024 11:40am Note Date/Time January 30, 2024 11:4 0am [facility] Medical Records Department [address] [place] [address] Instructions for Home/Discharge Instructions 01/30/24 1140 MR#: [id number] Acct: [id number] Name: MARIE HUTSON Rep #:[id number] : [...] MD; Dr. Sher Jules MD ~ Signed [facility] Work Phone: 1(746) 267-417004-04-2024 Discharge summary Author [facility] January 30, 2024 2:03pm Note Date/Time January 30, 2024 11:[address] [place] [address] Health System Medical Records Department [address] [place] [address] Discharge Summary 01/30/24 1140 MR#: [id number] Acct: [id number] Name: MARIE HUTSON Rep #:[id number] : [...] Code(s): I25.10 - Atherosclerotic heart disease of [place] coronary artery without angina pectoris (3) History of coronary artery bypass graft x 3: Status: Acute Code(s): Z95.1 - Presence of aortocoronary bypass graft (4) Hypertension: Status: Chronic Code(s): I10 - Essential (primary) hypertension (5) Dyslipidemia: Status: Acute Code(s): E78.5 - Hyperlipidemia, unspecified Plan #Chest pain * Recent long distance drive to [place]. CT of the chest was overall negative [...] had a recent 16-hour car drive from [place] for few days prior to admission. He [...] Alberto at discharge?: Yes Done w/ Acute ID measure.: Yes Documented LVEF (%): 60 Discharge [...] Self Care Charges/Coding Visit Charges Inpatient E&M: 45280 Disch Hosp >30min 01/30/24 1403 <Electronically signed by Debby Machuca MD> Cosigner Signature (if applicable): CC: Dr. Debby Machuca MD; Dr. Sher Jules MD~ Signed [facility] Work Phone: 1(305) 457-195904-04-2024 Progress note Author Rubio Simeon [facility] January 30, 2024 9:25am Note Date/Time January 30, 2024 9:25 am [facility] Medical Records Department [address] [place] [address] Progress Note - Cardiology 01/30/24 0921 MR#: [id number] Acct: [id number] Name: MARIE HUTSON Rep #:[id number] : [...] MPV 9.1, Sodium 135 L, Potassium 3.5, Pizxbonn895, Carbon Dioxide 28.0, Anion Gap 6, BUN [...] PLAN: Will try to get records from [facility]. (4) Hypertension: PLAN: Beta-blockers, amlodipine, clonidine, lisinopril. (5) Dyslipidemia: PLAN: Continue atorvastatin. PLAN: Plan The patient's blood pressure is controlled, then may discharge home later in theday. Patient wishes to follow-up with own restaurant associate. 01/30/24 0925 <Electronically signed by Rubio Simeon MD> Cosigner Signature (if applicable): CC: ~ Signed [facility] Work Phone: 1(533) 212-196604-04-2024 Progress note Author [facility] January 30, 2024 6:36am Note Date/Time January 30, 2024 6:36 am [facility] Medical Records Department [address] [place] [address] Progress Note - Hospitalist 01/30/24 0635 MR#: [id number] Acct: [id number] Name: MARIE HUTSON Rep #:[id number] : 1950 74 From: Geeta Mendoza MD PCP: Dr. Sher Jules MD Status:A DM IN [facility] Telemetry per discussion with staff this AM with questionable PAF, appears intermittent. Every EKG attempt however with SR. 01/30/24 0636 <Electronically signed by Geeta Mendoza MD> Cosigner Signature (if applicable): CC: ~ Signed [facility] Work Phone: [phone] Progress note Author Debby [facility] January 29, 2024 3:33pm Note Date/Time January 29, 2024 2:31 pm [facility] Medical Records Department [address] [place] [address] Progress Note 01/29/24 1422 MR#: [id number] Acct: [id number] Name: MARIE HUTSON Rep #:[id number] : [...] 91.9 H, Lymph % (Auto) 4.6 L, Webb % (Auto) 2.2, Eos % (Auto) 0.0, [...] 3.9 01/28/24 20:36: Troponin I High Sens 78355 H*, Procalcitonin 0.04 01/28/24 23:04: POC Glucose 240 H 01/28/24 23:23: Urine Color Yellow, Urine Clarity Clear, Urine pH 6.0, Ur Specific Odell 1.010, Urine Protein Negative, Urine Glucose (UA) [...] APTT 73.0 H, Troponin I High Sens 74631 H* 01/29/24 03:01: WBC 15.5 H, RBC 2.68 L, Hgb 8.8 L, Hct 24.9 L, MCV 92.9, MCH 32.8 H, MCHC 35.3, RDW Std Deviation 39.3, RDW Coeff of Cedric 11.7, Plt Count 296,MPV 9.3, Immature Gran % (Auto) 0.700, Neut % (Auto) 88.5 H, Lymph % (Auto) 4.7 L, Webb % (Auto) 6.0, Eos % (Auto) 0.0, [...] Sher Jules M.D. Performed By: Rupa Ramires, [facility] Physical Exam Const alert, oriented x3, [...] pain * Recent long distance drive to [place]. CT of the chest was overall negative [...] cath. SCDs. Charges/Coding Visit Charges Inpatient E&M: 81842 Subs Hosp L2 01/29/24 1533 <Electronically signed by Debby Machuca MD> Debby Machuca MD Cosigner Signature (if applicable): CC: ~ Signed [facility] Work Phone: 1(379) 249-677304-03-2024 Discharge summary Author Kvng Jacobson [facility] January 28, 2024 10:13pm Note Date/Time January 28, 2024 6:11 pm [facility] Medical Records Department [address] [place] [address] Emergency Department Summary 01/28/24 MR#: [id number] Acct: [id number] Name: MARIE HUTSON Rep #:[id number] : 1950 74 From: Kvng Jacobson DO PCP: Dr. Sher Jules MD Status:A DM IN Location: ICU ICU-[facility] History of Present Illness Chief Complaint: Chest Pain [facility] Medical History Branch retinal artery occlusion [...] patient but he himself had canceled the Advertising Specialist. He also informed me that MRI does [...] 91.9 H Lymph % (Auto) 4.6 L Webb % (Auto) 2.2 Eos % (Auto) 0.0 [...] procedures): 30-74 minutes (40), Discussing w/Patient &/or Family/Application Security Engineer, Discussing w/Consultants, Arranging Admission or Transfer and Performing Direct Patient Care at Bedside Discharge Plan Disposition Disposition: Acute Care Hospital [facility] Discharge Date/Time: 01/28/24 22:06 What to do if you have Problems For any increased pain, shortness of breath, bleeding, nausea or vomiting, chestpain, or any unexpected problems, contact your Primary Care Provider. Call [facility] ([phone]) or report to the closest Emergency Room. Call 911 if necessary. 01/28/242212 <Electronically signed by Kvng Jacosbon DO> Cosigner Signature (if applicable): CC: Dr. Sher Jules MD ~ Signed [facility] Work Phone: 1(245) 988-600504-03-2024 History and physical note Author Geeta Mendoza [facility] January 28, 2024 10:12pm Note Date/Time January 28, 2024 7:42 pm [facility] Medical Records Department [address] [place] [address] H&P Exam - Hospitalist 01/28/241924 MR#: [id number] Acct: [id number] Name: MARIE HUTSON Rep #:[id number] : 1950 74 From: Geeta Mendoza MD PCP: Dr. Sher Jules MD Status:A DM IN [facility] - General General Date of Admission: 01/28/24 Date of Service: 01/28/24 Chief Complaint: Chest pain HPI Narrative The patient is a 74 y/o M w/ PMHx: CAD s/p reported failed CABG 10/20/2013 with unclear intervention attempts, HTN, HLD, Diabetes mellitus type with chronic neuropathy, Former tobacco use, Chronic venous stasis disease, Obesity who presents to the [facility] ED on 01/28/24 with history of approximately 2 months prior having significant discomfort in his joints primarily of the bilateral wrist andhands however he had been in [place] and using his motorcycle quite a bit recentlyreturning via a very long at least 16-hour car drive from [place] this Saturday prior to current presentation with [...] next day however pending these workup findings. [facility] Medical History Branch retinal artery occlusion CAD [...] 91.9 H, Lymph % (Auto) 4.6 L, Webb % (Auto) 2.2, Eos % (Auto) 0.0, [...] stasis disease, Obesity who presents to the [facility] ED on 01/28/24 with history of [...] #6. CAD: Status post attempted CABG at [facility] 10/16/2013 supposedly failed, records requested, s/p PCI [...] 16 minutes. Charges/Coding Visit Charges Inpatient E&M: 94854 Init Hosp L3 Procedures Hospitalists Procedures: 68447 Advncd Care Plan 30 Min 01/28/241947 <Electronically [...] MD; Dr. Sher Jules MD ~* Signed [facility] Work Phone: 1(392) 861-324504-02-2024 History and physical note Author [facility] January 28, 2024 7:53pm Note Date/Time January 28, 2024 7:42 pm [facility] Medical Records Department [address] [facility] [place] [address] H&P Exam - Hospitalist 01/28/241924 MR#: [id number] Acct: [id number] Name: MARIE HUTSON Rep #:[id number] : [...] stasis disease, Obesity who presents to the [facility] ED on 01/28/24 with history of approximately 2 months prior having significant discomfort in his joints primarily of the bilateral wrist andhands however he had been in [place] and using his motorcycle quite a bit recentlyreturning via a very long at least 16-hour car drive from [place] this Saturday prior to current presentation with [...] next day however pending these workup findings. [facility] Medical History Branch retinal artery occlusion CAD (coronary artery disease) Diabetes mellitus, type 2 Former tobacco use Hyperlipemia Hypertension Obesity Home Medications aspirin 81 mg tablet,delayed release (Adult Low Dose Aspirin) 162 mg PO DAILY [facility] 04/18/16 [History Last Taken 04/19/16] metformin [...] 91.9 H, Lymph % (Auto) 4.6 L, Webb % (Auto) 2.2, Eos % (Auto) 0.0, [...] 19:35 EDT Reading Location ID and State: [facility] / [place] Tel , Service support , Assessment & Plan Assessment/Plan (1) Chest pain: PLAN: Plan The patient is a 74 y/o M w/ PMHx: CAD s/p reported failed CABG 10/20/2013 with unclear intervention attempts, HTN, HLD, Diabetes mellitus type with chronic neuropathy, Former tobacco use, Chronic venous stasis disease, Obesity who presents to the [facility] ED on 01/28/24 with history of [...] #6. CAD: Status post attempted CABG at [facility] 10/16/2013 supposedly failed, records requested, s/p PCI [...] 16 minutes. Charges/Coding Visit Charges Inpatient E&M: 11261 Init Hosp L3 Procedures Hospitalists Procedures: 75413 Advncd Care Plan 30 Min 01/28/241947 <Electronically [...] Cosigner Signature (if applicable): cc: Dr. Geeta Mendzoa MD; Dr. Sher Jules MD ~* Signed [facility] Work Phone: 1(471) 525-332804-02-2024 Consult note Author Rubio Simeon [facility] January 28, 2024 7:10pm Note Date/Time January 28, 2024 7:09 pm [facility] Medical Records Department [address] [place] [address] Consultation - Cardiology 01/28/24 1858 MR#: [id number] Acct: [id number] Name: MARIE HUTSON Rep #:[id number] : [...] PLAN: Will try to get records from [facility]. (4) Hypertension: PLAN: Nitrates. Start beta-blockers. Continue patient's amlodipine and clonidine. Also on ACEI. (5) Dyslipidemia: PLAN: Continue atorvastatin. HPI Consult Data Date of Consult: 01/28/24 HPI Narrative Reason for Consultation: Left arm pain HPI Narrative: This gentleman has past medical history significant for coronary artery disease with three-vessel CABG in 2012 at the [facility]. According to the patient, for the past [...] had a long road trip, driving from [place] to here over the weekend. According to him, it was a 15-hour drive. [facility] Medical History (Updated 01/28/24 @ 19:05 by [...] 91.9 H, Lymph % (Auto) 4.6 L, Webb % (Auto) 2.2, Eos % (Auto) 0.0, [...] 91.9 H, Lymph % (Auto) 4.6 L, Webb % (Auto) 2.2, Eos % (Auto) 0.0, [...] Simeon MD; Dr. Sher Jules MD~ Signed [facility] Work Phone: [phone]) 230-915904-01-2024 History of Present illness Narrative* Caterina Cornell, [...] PATIENT PRESENTS WITH AN IMPLANTABLE OR ATTACHED HEAD OF BUSINESS DEVELOPMENT: No RADIOLOGY DEPARTMENT: General X-ray: Exam(s) Completed: Upper Extremity X- Ray(s): Wrist, bilateral PERIPHERAL IV DATA: Not applicable SIGNED BY: RT Micky(R) 2024 3:33 PM documented in this encounterSelect Medical Specialty [facility]04-01-2024 Instructions* Patient Instructions* Barb Suggs APRN.CNP - [...] help with the pain. documented in this encounterSelect Medical Specialty Hospital [facility]04-01-2024 History of Present illness Narrative* Barb Suggs APRN.CNP - 2024 3:05 PM EDT CC: Patient presents with: Arm Pain: X 6 weeks HPI Marie Hutson is a 74 year old male who presents today for above. He developed bilateral hand painthat started about 6 weeks ago when he was on vacation in [place]. Had been riding his motorcycle frequently while [...] PAST MEDICAL HISTORY Diagnosis Date Atherosclerosis of [place] arteries of the extremities with intermittent claudication 09/07/2010 BENIGN NEOPLASM LG BOWEL 07/29/2008 Tubular adenoma. BPH without obstruction/lower urinary tract symptoms 12/29/2007 Coronary artery disease Dermatophytosis of nail 12/29/2007 Diabetic peripheral neuropathy (HCC) 05/17/2014 DVT of leg (deep venous thrombosis) ([facility]) 11/16/2013 post-op CABG, rx with Xarelto Hypertrophy of prostate without urinary obstruction and other lower urinary tract symptoms (LUTS) 12/29/2007 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/29/2007 Non-ST elevation myocardial infarction (NSTEMI) 10/17/2013 Nonspecific abnormal results of liver function study 04/29/2008 Obesity, unspecified 12/29/2007 Other and unspecified hyperlipidemia PAD (peripheral artery disease) ([facility]) 08/05/2009 Personal history of other malignant neoplasm of skin 11/05/2010 skin cancer Postoperative anemia 10/25/2013 Transfused on 10/25 1 U PRBC. H&H 9.2/26.3. DC on diuretic taper for dilutional component and MVI with iron and repeat as outpt Primary osteoarthritis of left knee 02/21/2018 [facility]. Type II or unspecified [...] with meals. Miscellaneous Medical Supply (COMPRESSION STOCKINGS) [facility] COMPRESSION STOCKINGS KNEE HI 20-30 WT M79.89 [...] Patient agreeable to treatment plan. Barb Suggs APRN.HAY FARMER documented in this encounterSelect Medical Specialty [facility]04-01-2024 Miscellaneous Notes* Telephone Encounter - Jayson Lovell MA - 2024 1:14 PM EDT Requested Prescriptions Pending Prescriptions Disp Refills amLODIPine (NORVASC) 10 mg tablet 90 tablet 3 Sig: Take 1 tablet by mouth once daily. Date of last office visit in primary care: 08/09/2023 Date of next office visit in primary care: 03/09/2024 Please advise. Thank you. Jayson Lovell MA. documented in this encounterSelect Medical Specialty [facility]04-01-2024 Miscellaneous Notes* Telephone Encounter - Jayson Lovell [...] you. Jayson Lovell MA. documented in this encounterSelect Medical Specialty [facility]04-01-2024 Miscellaneous Notes* Telephone Encounter - Colleen Rojo [...] time as the pain. Protocols used: Arm Ksgk-EABPO-LY documented in this encounterSelect Medical Specialty Hospital [facility]03-11-2024 Miscellaneous Notes* Telephone Encounter - Madeleine Cisneros - 01/06/2024 9:40 AM EDT Patient said [place] of [place] and wants to know if short term refills can be sent to [place], [place]. Needs 20 day supply of hydralazine [...] Thank you. Madeleine Ribera. documented in this encounterSelect Medical Specialty [facility]02-23-2024 Miscellaneous Notes* Telephone Encounter - Marta Bradley [...] you. Suellen Donovan RN. documented in this encounterSelect Medical Specialty Hospital [facility]01-04-2024 History of Present illness Narrative* Kathy Schwabew [...] Objective: Patient presents to clinic ambulating in [facility] Vasc: DP and PT pulses [...] type 2 diabetes mellitus with neurological manifestations ([facility]) (I73.9) PAD (peripheral artery disease) ([facility]) (L85.9) Hyperkeratosis (L60.0) Ingrowing toenail with infection [...] months. Gomez Schwab DPM documented in this encounterSelect Medical Specialty Hospital [facility]01-04-2024 Instructions* Patient Instructions* Gomez Schwab - 10/31/2023 [...] (or decreased sensation in your feet) a material analyst should always cut your toenails. Be Careful [...] Go to your health care provider or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 [facility] Cath: LM 80%, LAD 30% prox, RCA [...] recommend add when normalize -DC: , from [place], [place], no skilled needs. Request f/u Dr. 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 No skilled needs. 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 Phi Heredia for new cards and Preventive cards and Preventive Nutrition. Primary Care: Sher Jules MD [address] [facility] [address] Cell Technician: Phi Leo M.D. [facility] Acute pain 10/22/2013 01/01/2014 Overview: [...] RV nl ECG: SB at 56 Cards: [facility] Cath: LM 80%, LAD 30% prox, RCA [...] recommend add when normalize -DC: , from [place], [place], no skilled needs. Request f/u Dr. Heredia in [place] and outpt CTS RIFLE CASE REPAIRER Non-ST elevation myocardial infarction (NSTEMI) 10/17/2013 07/23/2014 [...] of this encounter (statuses as of 05/02/2022) [facility]2018 History of Past illness Narrative* Problem Noted [...] 10/23/20132013 Overview: 63 y/o M, lives in [place], [place]. No skilled needs. 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 Phi Heredia for new cards and Preventive cards and Preventive Nutrition. Primary Care: Sher Jules MD [address] [facility] [phone] Cell Technician: Phi Leo M.D. [place] [facility] Acute pain 10/22/2013 01/01/2014 Overview: [...] RV nl ECG: SB at 56 [facility]: LM 80%, LAD 30% prox, RCA [...] recommend add when normalize -DC: , from [place], no skilled needs. Request f/u Dr. 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 No skilled needs. 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 Phi Heredia for new cards and Preventive cards and Preventive Nutrition. Primary Care: Sher Jules MD [address] [facility] [address] Cell Technician: Phi Leo M.D. [facility] Acute pain 10/22/2013 01/01/2014 Overview: [...] RV nl ECG: SB at 56 Cards: [facility] Cath: LM 80%, LAD 30% prox, RCA [...] recommend add when normalize -DC: , from [place], [place], no skilled needs. Request f/u Dr. 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 No skilled needs. 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 Phi Heredia for new cards and Preventive cards and Preventive Nutrition. Primary Care: Sher Jules MD [address] [facility] [address] Cell Technician: Phi Leo M.D. [place] [facility] Acute pain 10/22/2013 01/01/2014 Overview: [...] recommend add when normalize -DC: , from [place], no skilled needs. Request f/u Dr. 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 No skilled needs. 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 Phi Heredia for new cards and Preventive cards and Preventive Nutrition. Primary Care: Sher Jules MD [address] [facility] [phone] Cell Technician: Phi Leo M.D. [facility] Acute pain 10/22/2013 01/01/2014 Overview: [...] RV nl ECG: SB at 56 Cards: [facility] Cath: LM 80%, LAD 30% prox, RCA [...] recommend add when normalize -DC: , from [place], no skilled needs. Request f/u Dr. 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 No skilled needs. 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 Phi Heredia for new cards and Preventive cards and Preventive Nutrition. Primary Care: Sher Jules MD [address] [facility] [address] Cell Technician: Phi Leo M.D. [place] [facility] Acute pain 10/22/2013 01/01/2014 Overview: [...] RV nl ECG: SB at 56 Cards: [facility] Cath: LM 80%, LAD 30% prox, RCA [...] recommend add when normalize -DC: , from [place], no skilled needs. Request f/u Dr. 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 No skilled needs. 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 Phi Heredia for new cards and Preventive cards and Preventive Nutrition. Primary Care: Sher Jules MD [address] [facility] [address] Cell Technician: Phi Leo M.D. [facility] Acute pain 10/22/2013 01/01/2014 Overview: [...] RV nl ECG: SB at 56 Cards: [facility] Cath: LM 80%, LAD 30% prox, RCA [...] recommend add when normalize -DC: , from [place], no skilled needs. Request f/u Dr. Heredia in [place] and outpt CTS RIFLE CASE REPAIRER Non-ST elevation myocardial infarction (NSTEMI) 10/17/2013 07/23/2014 [...] of this encounter (statuses as of 07/11/2022) [facility] History of Past illness Narrative* Problem Noted [...] 10/23/20132013 Overview: 63 y/o M, lives in [place]. No skilled needs. 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 Phi Heredia for new cards and Preventive cards and Preventive Nutrition. Primary Care: Sher Jules MD [address] [facility] [phone] Cell Technician: Phi Leo M.D. [facility] Acute pain 10/22/2013 01/01/2014 Overview: [...] RV nl ECG: SB at 56 Cards: [facility] Cath: LM 80%, LAD 30% prox, RCA [...] recommend add when normalize -DC: , from [place], no skilled needs. Request f/u Dr. 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 No skilled needs. 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 Phi Heredia for new cards and Preventive cards and Preventive Nutrition. Primary Care: Sher Juels MD [address] [facility] [phone] Cell Technician: Phi Leo M.D. [place] [facility] Acute pain 10/22/2013 01/01/2014 Overview: [...] RV nl ECG: SB at 56 Cards: [facility] Cath: LM 80%, LAD 30% prox, RCA [...] recommend add when normalize -DC: , from [place], no skilled needs. Request f/u Dr. Heredia in [place] and outpt CTS RIFLE CASE REPAIRER Non-ST elevation myocardial infarction (NSTEMI) 10/17/2013 07/23/2014 [...] of this encounter (statuses as of 09/05/2022) [facility] History of Past illness Narrative* Problem Noted [...] 10/23/20132013 Overview: 63 y/o M, lives in [place]. No skilled needs. 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 Phi Heredia for new cards and Preventive cards and Preventive Nutrition. Primary Care: Sher Jules MD [address] [facility] [phone] Cell Technician: Phi Leo M.D. [facility] Acute pain 10/22/2013 01/01/2014 Overview: [...] recommend add when normalize -DC: , from [place], no skilled needs. Request f/u Dr. 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 No skilled needs. 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 Phi Heredia for new cards and Preventive cards and Preventive Nutrition. Primary Care: Sher Jules MD [address] [facility] [address] Cell Technician: Phi Leo M.D. [facility] Acute pain 10/22/2013 01/01/2014 Overview: [...] Note: N/A Pacemaker Check: N/A Consults: Interventional Cardiology([facility] DM: Yes, HgbA1c:6.5 on 10/18/13 Cardiac Surgical prep: PENDING SIGNATURE: Elida Campuzano CNP CHECKED BY: RANDI DATE of SERVICE: 10/19/2013 TIME of SERVICE: 9:44 AM SUMMARY 10/17/2013 07/23/2014 Overview: Admission: NSTEMI Echo: 56%, Stage 1 DD, RV nl ECG: SB at 56 Cards: [facility] Cath: LM 80%, LAD 30% prox, RCA [...] recommend add when normalize -DC: , from [place], no skilled needs. Request f/u Dr. 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 No skilled needs. 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 Phi Heredia for new cards and Preventive cards and Preventive Nutrition. Primary Care: Sher Jules MD [address] [facility] [phone] Cell Technician: Phi Leo M.D. [place] [facility] Acute pain 10/22/2013 01/01/2014 Overview: [...] RV nl ECG: SB at 56 Cards: [facility] Cath: LM 80%, LAD 30% prox, RCA [...] recommend add when normalize -DC: , from [place], no skilled needs. Request f/u Dr. Heredia in [place] and outpt CTS RIFLE CASE REPAIRER Non-ST elevation myocardial infarction (NSTEMI) 10/17/2013 07/23/2014 [...] of this encounter (statuses as of 10/01/2022) [facility] History of Past illness Narrative* Problem Noted [...] 10/23/20132013 Overview: 63 y/o M, lives in [place]. No skilled needs. 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 Phi Heredia for new cards and Preventive cards and Preventive Nutrition. Primary Care: Sher Jules MD [address] [facility] [address] Cell Technician: Phi Leo M.D. [place] [facility] Acute pain 10/22/2013 01/01/2014 Overview: [...] recommend add when normalize -DC: , from [place], no skilled needs. Request f/u Dr. eHredia in [place] and outpt CTS RIFLE CASE REPAIRER Non-ST elevation myocardial infarction (NSTEMI) 10/17/2013 07/23/2014 [...] of this encounter (statuses as of 10/03/2022) [facility] History of Past illness Narrative* Problem Noted [...] 10/23/20132013 Overview: 63 y/o M, lives in [place]. No skilled needs. 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 Phi Heredia for new cards and Preventive cards and Preventive Nutrition. Primary Care: Sher Jules MD [address] [facility] [phone] Cell Technician: Phi Leo M.D. [place] [facility] Acute pain 10/22/2013 01/01/2014 Overview: [...] RV nl ECG: SB at 56 Cards: [facility] Cath: LM 80%, LAD 30% prox, RCA [...] recommend add when normalize -DC: , from [place], no skilled needs. Request f/u Dr. Heredia in [place] and outpt CTS RIFLE CASE REPAIRER Non-ST elevation myocardial infarction (NSTEMI) 10/17/2013 07/23/2014 [...] of this encounter (statuses as of 10/15/2022) [facility] History of Past illness Narrative* Problem Noted [...] 10/23/20132013 Overview: 63 y/o M, lives in [place]. No skilled needs. 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 Phi Heredia for new cards and Preventive cards and Preventive Nutrition. Primary Care: Sher Jules MD [address] [facility] [phone] Cell Technician: Phi Leo M.D. [place] [facility] Acute pain 10/22/2013 01/01/2014 Overview: [...] RV nl ECG: SB at 56 Cards: [facility] Cath: LM 80%, LAD 30% prox, RCA [...] recommend add when normalize -DC: , from [place], no skilled needs. Request f/u Dr. Heredia in [place] and outpt CTS RIFLE CASE REPAIRER Non-ST elevation myocardial infarction (NSTEMI) 10/17/2013 07/23/2014 [...] of this encounter (statuses as of 10/30/2022) [facility] History of Past illness Narrative* Problem Noted [...] 10/23/20132013 Overview: 63 y/o M, lives in [place]. No skilled needs. 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 Phi Heredia for new cards and Preventive cards and Preventive Nutrition. Primary Care: Sher Jules MD [address] [facility] [address] Cell Technician: Phi Leo M.D. [facility] Acute pain 10/22/2013 01/01/2014 Overview: [...] RV nl ECG: SB at 56 Cards: [facility] Cath: LM 80%, LAD 30% prox, RCA [...] recommend add when normalize -DC: , from [place], no skilled needs. Request f/u Dr. Heredia in [place] and outpt CTS RIFLE CASE REPAIRER Non-ST elevation myocardial infarction (NSTEMI) 10/17/2013 07/23/2014 [...] of this encounter (statuses as of 10/30/2022) [facility] History of Past illness Narrative* Problem Noted [...] 10/23/20132013 Overview: 63 y/o M, lives in [place]. No skilled needs. 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 Phi Heredia for new cards and Preventive cards and Preventive Nutrition. Primary Care: Sher Jules MD [address] [facility] [address] Cell Technician: Phi Leo M.D. [facility] Acute pain 10/22/2013 01/01/2014 Overview: [...] RV nl ECG: SB at 56 Cards: [facility] Cath: LM 80%, LAD 30% prox, RCA [...] recommend add when normalize -DC: , from [place], [place], no skilled needs. Request f/u Dr. Heredia in [place] and outpt CTS RIFLE CASE REPAIRER Non-ST elevation myocardial infarction (NSTEMI) 10/17/2013 07/23/2014 [...] of this encounter (statuses as of 12/13/2022) [facility] History of Past illness Narrative* Problem Noted [...] 10/23/20132013 Overview: 63 y/o M, lives in [place] No skilled needs. 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 Phi Heredia for new cards and Preventive cards and Preventive Nutrition. Primary Care: Sher Jules MD [address] [facility] [address] Cell Technician: Phi Leo M.D. [place] [facility] Acute pain 10/22/2013 01/01/2014 Overview: [...] RV nl ECG: SB at 56 Cards: [facility] Cath: LM 80%, LAD 30% prox, RCA [...] recommend add when normalize -DC: , from [place], no skilled needs. Request f/u Dr. Heredia in [place] and outpt CTS RIFLE CASE REPAIRER Non-ST elevation myocardial infarction (NSTEMI) 10/17/2013 07/23/2014 [...] of this encounter (statuses as of 12/14/2022) [facility] History of Past illness Narrative* Problem Noted [...] 10/23/20132013 Overview: 63 y/o M, lives in [place]. No skilled needs. 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 Phi Heredia for new cards and Preventive cards and Preventive Nutrition. Primary Care: Sher Jules MD [address] [facility] [address] Cell Technician: Phi Leo M.D. [place] [facility] Acute pain 10/22/2013 01/01/2014 Overview: [...] RV nl ECG: SB at 56 Cards: [facility] Cath: LM 80%, LAD 30% prox, RCA [...] recommend add when normalize -DC: , from [place], no skilled needs. Request f/u Dr. Heredia in [place] and outpt CTS RIFLE CASE REPAIRER Non-ST elevation myocardial infarction (NSTEMI) 10/17/2013 07/23/2014 [...] of this encounter (statuses as of 01/02/2023) [facility] History of Past illness Narrative* Problem Noted [...] 10/23/20132013 Overview: 63 y/o M, lives in [place] No skilled needs. 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 Phi Heredia for new cards and Preventive cards and Preventive Nutrition. Primary Care: Sher Juels MD [address] [facility] [phone] Cell Technician: Phi Leo M.D. [place] [facility] Acute pain 10/22/2013 01/01/2014 Overview: [...] RV nl ECG: SB at 56 Cards: [facility] Cath: LM 80%, LAD 30% prox, RCA [...] recommend add when normalize -DC: , from [place], no skilled needs. Request f/u Dr. Heredia in [place] and outpt CTS RIFLE CASE REPAIRER Non-ST elevation myocardial infarction (NSTEMI) 10/17/2013 07/23/2014 [...] of this encounter (statuses as of 01/16/2023) [facility] History of Past illness Narrative* Problem Noted [...] 10/23/20132013 Overview: 63 y/o M, lives in [place] skilled needs. 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 Phi Heredia for new cards and Preventive cards and Preventive Nutrition. Primary Care: Sher Jules MD [address] [facility] [phone] Cell Technician: Phi Leo M.D. [place] [facility] Acute pain 10/22/2013 01/01/2014 Overview: [...] RV nl ECG: SB at 56 Cards: [facility] Cath: LM 80%, LAD 30% prox, RCA [...] recommend add when normalize -DC: , from [place], no skilled needs. Request f/u Dr. Heredia in [place] and outpt CTS RIFLE CASE REPAIRER Non-ST elevation myocardial infarction (NSTEMI) 10/17/2013 07/23/2014 [...] of this encounter (statuses as of 01/17/2023) [facility] History of Past illness Narrative* Problem Noted [...] 10/23/20132013 Overview: 63 y/o M, lives in [place] No skilled needs. 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 Phi Heredia for new cards and Preventive cards and Preventive Nutrition. Primary Care: Sher Jules MD [address] [facility] [phone] Cell Technician: Phi Leo M.D. [facility] Acute pain 10/22/2013 01/01/2014 Overview: [...] RV nl ECG: SB at 56 Cards: [facility] Cath: LM 80%, LAD 30% prox, RCA [...] recommend add when normalize -DC: , from [place], no skilled needs. Request f/u Dr. Heredia in [place] and outpt CTS RIFLE CASE REPAIRER Non-ST elevation myocardial infarction (NSTEMI) 10/17/2013 07/23/2014 [...] of this encounter (statuses as of 01/31/2023) [facility] History of Past illness Narrative* Problem Noted [...] 10/23/20132013 Overview: 63 y/o M, lives in [place] No skilled needs. 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 Phi Heredia for new cards and Preventive cards and Preventive Nutrition. Primary Care: Sher Jules MD [address] [facility] [address] Cell Technician: Phi Leo M.D. [place] [facility] Acute pain 10/22/2013 01/01/2014 Overview: [...] RV nl ECG: SB at 56 Cards: [facility] Cath: LM 80%, LAD 30% prox, RCA [...] recommend add when normalize -DC: , from [place], no skilled needs. Request f/u Dr. Heredia in [place] and outpt CTS RIFLE CASE REPAIRER Non-ST elevation myocardial infarction (NSTEMI) 10/17/2013 07/23/2014 [...] of this encounter (statuses as of 02/04/2023) [facility] History of Past illness Narrative* Problem Noted [...] 10/23/20132013 Overview: 63 y/o M, lives in [place] No skilled needs. 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 Phi Heredia for new cards and Preventive cards and Preventive Nutrition. Primary Care: Sher Jules MD [address] [facility] [phone] Cell Technician: Phi eLo M.D. [place] [facility] Acute pain 10/22/2013 01/01/2014 Overview: [...] recommend add when normalize -DC: , from [place], no skilled needs. Request f/u Dr. Heredia in [place] and outpt CTS RIFLE CASE REPAIRER Non-ST elevation myocardial infarction (NSTEMI) 10/17/2013 07/23/2014 [...] of this encounter (statuses as of 02/04/2023) [facility] History of Past illness Narrative* Problem Noted [...] 10/23/20132013 Overview: 63 y/o M, lives in [place] No skilled needs. 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 Phi Heredia for new cards and Preventive cards and Preventive Nutrition. Primary Care: Sher Jules MD [address] [facility] [address] Cell Technician: [facility]. [facility]/2013 01/01/2014 Overview: [...] RV nl ECG: SB at 56 Cards: [facility] Cath: LM 80%, LAD 30% prox, RCA [...] recommend add when normalize -DC: , from [place], no skilled needs. Request f/u Dr. Heredia in [place] and outpt CTS RIFLE CASE REPAIRER Non-ST elevation myocardial infarction (NSTEMI) 10/17/2013 07/23/2014 [...] of this encounter (statuses as of 02/07/2023) [facility] History of Past illness Narrative* Problem Noted [...] 10/23/20132013 Overview: 63 y/o M, lives in [place]. No skilled needs. 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 Phi Heredia for new cards and Preventive cards and Preventive Nutrition. Primary Care: Sher Jules MD [address] [facility] [phone] Cell Technician: Phi Leo M.D. [place] [facility] Acute pain 10/22/2013 01/01/2014 Overview: [...] RV nl ECG: SB at 56 Cards: [facility] Cath: LM 80%, LAD 30% prox, RCA [...] recommend add when normalize -DC: , from [place], [place], no skilled needs. Request f/u Dr. Heredia in [place] and outpt CTS RIFLE CASE REPAIRER Non-ST elevation myocardial infarction (NSTEMI) 10/17/2013 07/23/2014 [...] of this encounter (statuses as of 02/15/2023) [facility]2018 History of Past illness Narrative* Problem Noted [...] 10/23/20132013 Overview: 63 y/o M, lives in [place], [place]. No skilled needs. 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 Phi Heredia for new cards and Preventive cards and Preventive Nutrition. Primary Care: Sher Jules MD [address] [facility] [id number] Cell Technician: Phi Leo M.D. [place] [facility] Acute pain 10/22/2013 01/01/2014 Overview: [...] RV nl ECG: SB at 56 Cards: [facility] Cath: LM 80%, LAD 30% prox, RCA [...] recommend add when normalize -DC: , from [place], no skilled needs. Request f/u Dr. Heredia in [place] and outpt CTS RIFLE CASE REPAIRER Non-ST elevation myocardial infarction (NSTEMI) 10/17/2013 07/23/2014 [...] of this encounter (statuses as of 03/29/2023) [facility] History of Past illness Narrative* Problem Noted [...] 10/23/20132013 Overview: 63 y/o M, lives in [place], [place]. No skilled needs. 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 Phi Heredia for new cards and Preventive cards and Preventive Nutrition. Primary Care: Sher Jules MD [address] [facility] [id number] Cell Technician: Phi Leo M.D. [facility] Acute pain 10/22/2013 01/01/2014 Overview: DC [...] Note: N/A Pacemaker Check: N/A Consults: Interventional Cardiology([facility] DM: Yes, HgbA1c:6.5 on 10/18/13 Cardiac Surgical prep: PENDING SIGNATURE: Elida Campuzano CNP CHECKED BY: RANDI DATE of SERVICE: 10/19/2013 TIME of SERVICE: 9:44 AM SUMMARY 10/17/2013 07/23/2014 Overview: Admission: NSTEMI Echo: 56%, Stage 1 DD, RV nl ECG: SB at 56 Cards: [facility] Cath: LM 80%, LAD 30% prox, RCA [...] recommend add when normalize -DC: , from [place], no skilled needs. Request f/u Dr. Heredia in [place] and outpt CTS RIFLE CASE REPAIRER Non-ST elevation myocardial infarction (NSTEMI) 10/17/2013 07/23/2014 [...] of this encounter (statuses as of 04/01/2023) [facility] History of Past illness Narrative* Problem Noted [...] 10/23/20132013 Overview: 63 y/o M, lives in [place], [place]. No skilled needs. 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 Phi Heredia for new cards and Preventive cards and Preventive Nutrition. Primary Care: Sher Jules MD [address] [facility] [address] Cell Technician: Phi Leo M.D. [place] [facility] Acute pain 10/22/2013 01/01/2014 Overview: [...] RV nl ECG: SB at 56 Cards: [facility] Cath: LM 80%, LAD 30% prox, RCA [...] recommend add when normalize -DC: , from [place], no skilled needs. Request f/u Dr. Heredia in [place] and outpt CTS RIFLE CASE REPAIRER Non-ST elevation myocardial infarction (NSTEMI) 10/17/2013 07/23/2014 [...] of this encounter (statuses as of 04/03/2023) [facility] History of Past illness Narrative* Problem Noted [...] 10/23/20132013 Overview: 63 y/o M, lives in [place]. No skilled needs. 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 Phi Heredia for new cards and Preventive cards and Preventive Nutrition. Primary Care: Sher Jules MD [address] [facility] [address] Cell Technician: Phi Leo M.D. [facility] Acute pain 10/22/2013 01/01/2014 Overview: [...] recommend add when normalize -DC: , from [place], no skilled needs. Request f/u Dr. Heredia in [place] and outpt CTS RIFLE CASE REPAIRER Non-ST elevation myocardial infarction (NSTEMI) 10/17/2013 07/23/2014 [...] of this encounter (statuses as of 04/09/2023) [facility] History of Past illness Narrative* Problem Noted [...] 10/23/2013 Overview: 63 y/o M, lives in [place]. No skilled needs. 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 Phi Heredia for new cards and Preventive cards and Preventive Nutrition. Primary Care: Sher Jules MD [address] [facility] [phone] Cell Technician: Phi Leo M.D. [facility] Acute pain 10/22/2013 01/01/2014 Overview: [...] RV nl ECG: SB at 56 Cards: [facility] Cath: LM 80%, LAD 30% prox, RCA [...] recommend add when normalize -DC: , from [place], no skilled needs. Request f/u Dr. Heredia in [place] and outpt CTS RIFLE CASE REPAIRER Non-ST elevation myocardial infarction (NSTEMI) 10/17/2013 07/23/2014 [...] of this encounter (statuses as of 05/07/2023) [facility] History of Past illness Narrative* Problem Noted [...] 10/23/2013 Overview: 63 y/o M, lives in [place]. No skilled needs. 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 Phi Heredia for new cards and Preventive cards and Preventive Nutrition. Primary Care: Sher Jules MD [address] [facility] [address] Cell Technician: Phi Leo M.D. [place] [facility] Acute pain 10/22/2013 01/01/2014 Overview: [...] RV nl ECG: SB at 56 Cards: [facility] Cath: LM 80%, LAD 30% prox, RCA [...] recommend add when normalize -DC: , from [place], [place], no skilled needs. Request f/u Dr. Heredia in [place] and outpt CTS RIFLE CASE REPAIRER Non-ST elevation myocardial infarction (NSTEMI) 10/17/2013 07/23/2014 [...] of this encounter (statuses as of 07/27/2023) [facility] History of Past illness Narrative* Problem Noted [...] 10/23/2013 Overview: 63 y/o M, lives in [place]. No skilled needs. 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 Phi Heredia for new cards and Preventive cards and Preventive Nutrition. Primary Care: Sher Jules MD [address] [facility] [address] Cell Technician: Phi Leo M.D. [place] [facility] Acute pain 10/22/2013 01/01/2014 Overview: [...] RV nl ECG: SB at 56 Cards: [facility] Cath: LM 80%, LAD 30% prox, RCA [...] recommend add when normalize -DC: , from [place], no skilled needs. Request f/u Dr. Heredia in [place] and outpt CTS RIFLE CASE REPAIRER Non-ST elevation myocardial infarction (NSTEMI) 10/17/2013 07/23/2014 [...] of this encounter (statuses as of 08/09/2023) [facility] History of Past illness Narrative* Problem Noted [...] 10/23/2013 Overview: 63 y/o M, lives in [place], [place]. No skilled needs. 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 Phi Heredia for new cards and Preventive cards and Preventive Nutrition. Primary Care: Sher Jules MD [address] [facility] [address] Cell Technician: Phi Leo M.D. [place] [facility] Acute pain 10/22/2013 01/01/2014 Overview: [...] RV nl ECG: SB at 56 Cards: [facility] Cath: LM 80%, LAD 30% prox, RCA [...] recommend add when normalize -DC: , from [place], no skilled needs. Request f/u Dr. Heredia in [place] and outpt CTS RIFLE CASE REPAIRER Non-ST elevation myocardial infarction (NSTEMI) 10/17/2013 07/23/2014 [...] of this encounter (statuses as of 09/10/2023) [facility] History of Past illness Narrative* Problem Noted [...] 10/23/2013 Overview: 63 y/o M, lives in [place]. No skilled needs. 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 Phi Heredia for new cards and Preventive cards and Preventive Nutrition. Primary Care: Sher Jules MD [address] [facility] [address] Cell Technician: Phi Leo M.D. [place] [facility] Acute pain 10/22/2013 01/01/2014 Overview: [...] RV nl ECG: SB at 56 Cards: [facility] Cath: LM 80%, LAD 30% prox, RCA [...] recommend add when normalize -DC: , from [place], no skilled needs. Request f/u Dr. Heredia in [place] and outpt CTS RIFLE CASE REPAIRER Non-ST elevation myocardial infarction (NSTEMI) 10/17/2013 07/23/2014 [...] of this encounter (statuses as of 10/01/2023) [facility] History of Past illness Narrative* Problem Noted [...] 10/23/2013 Overview: 63 y/o M, lives in [place]. No skilled needs. 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 Phi Heredia for new cards and Preventive cards and Preventive Nutrition. Primary Care: Sher Jules MD [address] [facility] [phone] Cell Technician: Phi Leo M.D. [place] [facility] Acute pain 10/22/2013 01/01/2014 Overview: [...] RV nl ECG: SB at 56 Cards: [facility] Cath: LM 80%, LAD 30% prox, RCA [...] recommend add when normalize -DC: , from [place], no skilled needs. Request f/u Dr. Heredia in [place] and outpt CTS RIFLE CASE REPAIRER Non-ST elevation myocardial infarction (NSTEMI) 10/17/2013 07/23/2014 [...] of this encounter (statuses as of 11/03/2023) [facility] History of Past illness Narrative* Problem Noted [...] 10/23/2013 Overview: 63 y/o M, lives in [place]. No skilled needs. 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 Phi Heredia for new cards and Preventive cards and Preventive Nutrition. Primary Care: Sher Jules MD [address] [facility] [phone] Cell Technician: Phi Leo M.D. [place] [facility] Acute pain 10/22/2013 01/01/2014 Overview: [...] RV nl ECG: SB at 56 Cards: [facility] Cath: LM 80%, LAD 30% prox, RCA [...] recommend add when normalize -DC: , from [place], no skilled needs. Request f/u Dr. Heredia in [place] and outpt CTS RIFLE CASE REPAIRER Non-ST elevation myocardial infarction (NSTEMI) 10/17/2013 07/23/2014 [...] of this encounter (statuses as of 12/20/2023) [facility] History of Past illness Narrative* Problem Noted [...] 10/23/2013 Overview: 63 y/o M, lives in [place]. No skilled needs. 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 Phi Hreedia for new cards and Preventive cards and Preventive Nutrition. Primary Care: Sher Jules MD [address] [facility] [address] Cell Technician: Phi Leo M.D. [place] [facility] Acute pain 10/22/2013 01/01/2014 Overview: [...] RV nl ECG: SB at 56 Cards: [facility] Cath: LM 80%, LAD 30% prox, RCA [...] recommend add when normalize -DC: , from [place], no skilled needs. Request f/u Dr. Heredia in [place] and outpt CTS RIFLE CASE REPAIRER Non-ST elevation myocardial infarction (NSTEMI) 10/17/2013 07/23/2014 [...] of this encounter (statuses as of 01/06/2024) [facility] History of Past illness Narrative* Problem Noted [...] 10/23/2013 Overview: 63 y/o M, lives in [place]. No skilled needs. 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 Phi Heredia for new cards and Preventive cards and Preventive Nutrition. Primary Care: Sher Jules MD [address] [facility] [address] Cell Technician: Phi Leo M.D. [place] [facility] Acute pain 10/22/2013 01/01/2014 Overview: [...] RV nl ECG: SB at 56 Cards: [facility] Cath: LM 80%, LAD 30% prox, RCA [...] recommend add when normalize -DC: , from [place], [place], no skilled needs. Request f/u Dr. Heredia in [place] and outpt CTS RIFLE CASE REPAIRER Non-ST elevation myocardial infarction (NSTEMI) 10/17/2013 07/23/2014 [...] of this encounter (statuses as of 01/28/2024) [facility] History of Past illness Narrative* Problem Noted [...] 10/23/2013 Overview: 63 y/o M, lives in [place]. No skilled needs. 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 Phi Heredia for new cards and Preventive cards and Preventive Nutrition. Primary Care: Sher Jules MD [address] [facility] [address] Cell Technician: Phi Leo M.D. [place] [facility] Acute pain 10/22/2013 01/01/2014 Overview: [...] RV nl ECG: SB at 56 Cards: [facility] Cath: LM 80%, LAD 30% prox, RCA [...] recommend add when normalize -DC: , from [place], no skilled needs. Request f/u Dr. Heredia in [place] and outpt CTS RIFLE CASE REPAIRER Non-ST elevation myocardial infarction (NSTEMI) 10/17/2013 07/23/2014 [...] of this encounter (statuses as of 01/28/2024) [facility] History of Past illness Narrative* Problem Noted [...] 10/23/2013 Overview: 63 y/o M, lives in [place]. No skilled needs. 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 Phi Heredia for new cards and Preventive cards and Preventive Nutrition. Primary Care: Sher Jules MD [address] [facility] [address] Cell Technician: Phi Leo M.D. [place] [facility] Acute pain 10/22/2013 01/01/2014 Overview: [...] RV nl ECG: SB at 56 Cards: [facility] Cath: LM 80%, LAD 30% prox, RCA [...] recommend add when normalize -DC: , from [place], no skilled needs. Request f/u Dr. Heredia in [place] and outpt CTS RIFLE CASE REPAIRER Non-ST elevation myocardial infarction (NSTEMI) 10/17/2013 07/23/2014 [...] of this encounter (statuses as of 2024) [facility] History of Past illness Narrative* Problem Noted [...] 10/23/2013 Overview: 63 y/o M, lives in [place]. No skilled needs. 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 Phi Heredia for new cards and Preventive cards and Preventive Nutrition. Primary Care: Sher Jules MD [address] [facility] [address] Cell Technician: Phi Leo M.D. [place] [facility] Acute pain 10/22/2013 01/01/2014 Overview: [...] RV nl ECG: SB at 56 Cards: [facility] Cath: LM 80%, LAD 30% prox, RCA [...] recommend add when normalize -DC: , from [place], no skilled needs. Request f/u Dr. Heredia in [place] and outpt CTS RIFLE CASE REPAIRER Non-ST elevation myocardial infarction (NSTEMI) 10/17/2013 07/23/2014 [...] of this encounter (statuses as of 01/28/2024) [facility] History of Past illness Narrative* Problem Noted [...] 10/23/2013 Overview: 63 y/o M, lives in [place]. No skilled needs. 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 Phi Heredia for new cards and Preventive cards and Preventive Nutrition. Primary Care: Sher Jules MD [address] [facility] [phone] Cell Technician: Phi Leo M.D. [facility] Acute pain 10/22/2013 01/01/2014 Overview: [...] RV nl ECG: SB at 56 Cards: [facility] Cath: LM 80%, LAD 30% prox, RCA [...] recommend add when normalize -DC: , from [place], no skilled needs. Request f/u Dr. Heredia in [place] and outpt CTS RIFLE CASE REPAIRER Non-ST elevation myocardial infarction (NSTEMI) 10/17/2013 07/23/2014 [...] of this encounter (statuses as of 01/31/2024) [facility] History of Past illness Narrative* Problem Noted [...] 10/23/2013 Overview: 63 y/o M, lives in [place]. No skilled needs. 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 Phi Heredia for new cards and Preventive cards and Preventive Nutrition. Primary Care: Sher Jules MD [address] [facility] [address] Cell Technician: Phi Leo M.D. [place] [facility] Acute pain 10/22/2013 01/01/2014 Overview: [...] recommend add when normalize -DC: , from [place], no skilled needs. Request f/u Dr. Heredia in [place] and outpt CTS RIFLE CASE REPAIRER Non-ST elevation myocardial infarction (NSTEMI) 10/17/2013 07/23/2014 [...] of this encounter (statuses as of 02/06/2024) [facility] Rohan Wallace [facility] Note Date/Time April 30, 2025 12:39 am [facility] Medical Records Department [address] [place] [address] Emergency Department Summary 04/30/25 MR#: [id number] Acct: [id number] Name: MARIE HUTSON Rep #:[id number] : [...] Prior similar symptoms: No Recent Illness/Hospitalization: No [facility] <Dr. Max Brooks MD - Last Filed: 04/30/25 00:23> [facility] Medical History Atherosclerotic heart disease of [place] coronary artery without angina pectoris Branch retinal [...] Skin sutures and Wound explored Number of Sutures/[place]: 9 Suture Information: Ethilon, Simple and 4-0 [...] results andthe possibility of a delayed bleed. [facility] <Dr. Max Brooks MD - Last Filed: 04/30/25 00:23> [facility] Radiography Diagnostic Testing: Clinical Impression(s) from Imaging Studies Brain CT 04/29/25 23:08 IMPRESSION: No acute intracranial finding Reading Location: [facility] <Dr. Rohan Wallace MD - Last Filed: 04/30/25 00:30> [facility] Narrative Medical decision making narrative: Since patient is on antithrombotic is amnestic and over the age of 75 per the [place] CT head rule and [place] rule he will require imaging of his head to rule out intracranial bleed i.e. subdural hematoma, epidural hematoma, parenchymal contusion or subarachnoid hemorrhage. Patient's laceration will require repair. The repair was performed by Dr. Brooks. Radiography Diagnostic Testing: Clinical Impression(s) from Imaging Studies Brain CT 04/29/25 23:08 IMPRESSION: No acute intracranial finding Reading Location: [place] [address] CT of the head was reviewed by me. There is no evidence of fracture. There is no fluid in the frontal, maxillary or sphenoid sinus. There is no evidence of subdural hematoma, epidural hematoma, subarachnoid hemorrhage or intraparenchymal contusion. Discharge Plan Triage Chief Complaint: Head Injury ED Provider: Rohan Wallaec Dx/Rx/DC Orders Clinical Impression: Closed head injury with brief loss of consciousness, Hypertension, Dyslipidemia, Diabetes, CAD (coronary artery disease), Antiplatelet or antithrombotic long- term use, Laceration of scalp, Injury due to fall Instructions: ED Head Injury (Adult), ED Laceration Scalp Stitches or [place] Prescriptions: No Action clopidogrel 75 mg tablet [...] the emergency room for reevaluation Print Language: Ug[place] Disposition Disposition: Home, Self Care What to do if you have Problems For any increased pain, shortness of breath, bleeding, nausea or vomiting, chestpain, or any unexpected problems, contact your Primary Care Provider. Call [facility] ([phone]) or report to the closest Emergency Room. Call 911 if necessary. 04/30/2529 <Electronically signed by Rohan Wallace MD> Cosigner Signature (if applicable): 04/30/2538 <Electronically signed by Max Brooks MD> CC: Dr. Sher Jules MD ~ Signed [facility] Work Phone: Evaluation note* Diagnosis Peripheral arterial disease (HCC)- Primary Peripheral vascular disease, unspecified [facility] Diagnosis Onychomycosis- Primary Dermatophytosis of nail [...] Hyperkeratosis Acquired keratoderma [facility] Diagnosis Onset Date Resolution Status Branch retinal artery occlusion acute History of atherosclerotic heart disease acute History of diabetes mellitus acute History of essential hypertension [facility] Work Phone: Evaluation note* Diagnosis Onset Date Resolution Status Branch retinal artery occlusion acute CVA (cerebral vascular accident) acute History of atherosclerotic heart disease acute History of diabetes mellitus acute History of essential hypertension [facility] Work Phone: Evaluation note* Diagnosis Hyperlipidemia with target LDL less than 70- Primary Other and unspecified hyperlipidemia Essential hypertension Unspecified essential hypertension Well controlled type 2 diabetes mellitus with neurological manifestations (HCC) Type II or unspecified type diabetes mellitus with neurological manifestations, not stated as uncontrolled Branch retinal artery occlusion, 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 [facility] Essential hypertension- Primary Unspecified essential hypertension [facility] Essential hypertension Unspecified essential hypertension [facility] Essential hypertension- Primary Unspecified essential hypertension Need for influenza vaccination Need for prophylactic vaccination and inoculation against influenza Well controlled type 2 diabetes mellitus with neurological manifestations (HCC) Type II or unspecified type diabetes mellitus with neurological manifestations, not stated as uncontrolled [facility] Diagnosis Coronary artery disease involving [place] coronary artery of [place] heart without angina pectoris- Primary Essential hypertension Unspecified essential hypertension 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 Central artery occlusion of retina [facility] Diagnosis Onychomycosis- Primary Dermatophytosis of nail [...] vascular disease, unspecified [facility] Diagnosis COVID-19 virus infection- Primary [facility] Diagnosis Central retinal artery occlusion of left eye- Primary Central artery occlusion of retina [facility] Diagnosis Primary hypertension- Primary Unspecified essential hypertension Coronary artery disease involving [place] coronary artery of [place] heart without angina pectoris Hx of CABG Postsurgical aortocoronary bypass status PAD (peripheral artery disease) (HCC) Peripheral vascular disease, unspecified [facility] Essential hypertension Unspecified essential hypertension [facility] Diagnosis Hyperlipidemia with target LDL less than 70 Other and unspecified hyperlipidemia Essential hypertension Unspecified essential hypertension [facility] Diagnosis Essential hypertension- Primary Unspecified essential hypertension [facility] Diagnosis Well controlled type 2 diabetes mellitus with neurological manifestations (HCC)- Primary Type II or unspecified type diabetes mellitus with neurological manifestations, not stated as uncontrolled [facility] Essential hypertension Unspecified essential hypertension [facility] Diagnosis Peripheral vascular disease (HCC)- Primary Peripheral vascular disease, unspecified Screening for nephropathy [facility] Diagnosis Essential hypertension Unspecified essential hypertension [facility] Diagnosis Essential hypertension Unspecified essential hypertension [facility] Diagnosis Well controlled type 2 diabetes mellitus with neurological manifestations (HCC)- Primary Type II or unspecified type diabetes mellitus with neurological manifestations, not stated as uncontrolled Essential hypertension Unspecified essential hypertension Hyperlipidemia with target LDL less than 70 Other and unspecified hyperlipidemia PAD (peripheral artery disease) (HCC) Peripheral vascular disease, unspecified [facility] Diagnosis Peripheral vascular disease (HCC) Peripheral vascular disease, unspecified [facility] Diagnosis 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- Primary Arterial branch occlusion of retina Diabetic peripheral neuropathy (HCC) Type II or unspecified type diabetes mellitus with neurological manifestations, not stated as uncontrolled [facility] Diagnosis Atherosclerotic peripheral vascular disease with intermittent claudication (HCC)- Primary Atherosclerosis of [place] arteries of the extremities with intermittent claudication Peripheral arterial disease (HCC) Peripheral vascular disease, unspecified [facility] Diagnosis Onychomycosis- Primary Dermatophytosis of nail [...] Hyperkeratosis Acquired keratoderma [facility] Diagnosis Screening for ischemic heart disease- Primary Coronary artery disease involving [place] coronary artery of [place] heart without angina pectoris Hx of CABG Postsurgical aortocoronary bypass status PVD (peripheral vascular disease) ([facility]) Peripheral vascular disease, unspecified [facility] Diagnosis Onychomycosis- Primary Dermatophytosis of nail [...] Hyperkeratosis Acquired keratoderma [facility] Diagnosis Obesity, Class II, BMI 35-39.9- Primary Obesity, unspecified Coronary artery disease involving [place] coronary artery of [place] heart without angina pectoris PAD (peripheral artery disease) (HCC) Peripheral vascular disease, unspecified Essential hypertension Unspecified essential hypertension Hyperlipidemia with target LDL less than 70 Other and unspecified hyperlipidemia Well controlled type 2 diabetes mellitus with neurological manifestations (HCC) Type II or unspecified type diabetes mellitus with neurological manifestations, not stated as uncontrolled [facility] Diagnosis Onychomycosis- Primary Dermatophytosis of nail [...] infection Ingrowing nail [facility] Diagnosis Essential hypertension Unspecified essential hypertension [facility] Diagnosis Essential hypertension Unspecified essential hypertension Well controlled type 2 diabetes mellitus with neurological manifestations (HCC) Type II or unspecified type diabetes mellitus with neurological manifestations, not stated as uncontrolled [facility] Diagnosis Essential hypertension Unspecified essential hypertension [facility] Diagnosis Pain in both wrists- Primary Pain in joint, forearm [facility]* Diagnosis Onset Date Resolution Status CAD (coronary artery disease) acute Chest pain acute Dyslipidemia acute History of coronary artery bypass graft x 3 acute NSTEMI (non-ST elevated myocardial infarction) acute Hypertension [facility] Work Phone: Evaluation note* Diagnosis Onset Date Resolution Status CAD (coronary artery disease) acute Chest pain acute Diabetes acute Dyslipidemia acute History of coronary artery bypass graft x 3 acute NSTEMI (non-ST elevated myocardial infarction) acute Hypertension [facility] Work Phone: Evaluation note* Diagnosis Non-STEMI (non-ST elevated myocardial infarction) ([facility])- Primary Acute myocardial infarction, subendocardial infarction, episode [...] 30-34.9 Obesity, unspecified [facility]* Diagnosis 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)- Primary Essential hypertension Unspecified essential hypertension PAD (peripheral artery disease) (HCC) Peripheral vascular disease, unspecified [facility] noteNo assessment information availableWUniversity Hospitals Health System Work Phone: Evaluation note* Diagnosis Well controlled type 2 diabetes mellitus with neurological manifestations (HCC) Type II or unspecified type diabetes mellitus with neurological manifestations, not stated as uncontrolled [facility] Diagnosis Screening for colon cancer- Primary Special screening for malignant neoplasms, colon [facility]* Diagnosis Medicare annual wellness visit, subsequent- Primary Routine general medical examination at a health care facility Special screening for malignant neoplasms, colon Well controlled type 2 diabetes mellitus with neurological manifestations (HCC) Type II or unspecified type diabetes mellitus with neurological manifestations, not stated as uncontrolled PAD (peripheral artery disease) (HCC) Peripheral vascular disease, unspecified Coronary artery disease involving [place] coronary artery of [place] heart without angina pectoris Hyperlipidemia with target LDL less than 70 Other and unspecified hyperlipidemia Benign neoplasm of colon, unspecified part of colon [facility] Diagnosis 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) [facility] Diagnosis Onychomycosis- Primary Dermatophytosis of nail Pain in toe of left foot Pain in limb Pain in toe of right foot Pain in limb PAD (peripheral artery disease) (HCC) Peripheral vascular disease, unspecified Diabetic polyneuropathy associated with type 2 diabetes mellitus (HCC) [facility] Diagnosis Essential hypertension- Primary Unspecified essential hypertension Hyperlipidemia with target LDL less than 70 Other and unspecified hyperlipidemia Hx of CABG Postsurgical aortocoronary bypass status Coronary artery disease involving [place] coronary artery of [place] heart without angina pectoris [facility] Diagnosis Special screening for malignant neoplasms, colon History of colonic polyps Personal history of colonic polyps Coronary artery disease involving [place] coronary artery of [place] heart, unspecified whether angina present [facility] Diagnosis Peripheral arterial disease (HCC)- Primary Peripheral vascular disease, unspecified [facility]* Diagnosis Well controlled type 2 [...] ClinicEvaluation note* Diagnosis Coronary artery disease involving [place] coronary artery of [place] heart without angina pectoris- Primary Stented coronary artery Postsurgical percutaneous transluminal coronary angioplasty status Essential hypertension Unspecified essential hypertension Hyperlipidemia with target LDL less than 70 Other and unspecified hyperlipidemia Well controlled type 2 diabetes mellitus with neurological manifestations (HCC) Type II or unspecified type diabetes mellitus with neurological manifestations, not stated as uncontrolled documented in this encounter [facility] note* Diagnosis Hyponatremia- Primary Hyposmolality and/or hyponatremia Hyperkalemia Hyperpotassemia Anemia, unspecified type documented in this encounter [facility] note* Diagnosis Shortness of breath- Primary Coronary artery disease involving [place] coronary artery of [place] heart without angina pectoris Stented coronary artery Postsurgical percutaneous transluminal coronary angioplasty status S/P CABG x 3 Postsurgical aortocoronary bypass status Family history of chronic ischemic heart disease Diabetes mellitus type 2 in nonobese (CMS/HCC) (HCC) Type II or unspecified type diabetes mellitus without mention of complication, not stated as uncontrolled Primary hypertension Unspecified essential hypertension Mixed hyperlipidemia Coronary artery disease involving [place] coronary artery of [place] heart without angina pectoris- Primary documented in this encounter [facility] note* Diagnosis Coronary artery disease involving [place] coronary artery of [place] heart without angina pectoris- Primary Primary hypertension Unspecified essential hypertension documented in this encounter [facility] note* Diagnosis Coronary artery disease involving [place] coronary artery of [place] heart without angina pectoris- Primary Coronary artery disease involving [place] coronary artery of [place] heart without angina pectoris Stented coronary artery Postsurgical percutaneous transluminal coronary angioplasty status Angina pectoris, unstable (CMS/HCC) (HCC) Intermediate coronary syndrome Angina pectoris, unstable (CMS/HCC) (HCC) Intermediate coronary syndrome Coronary artery disease involving [place] coronary artery of [place] heart without angina pectoris documented in this encounter [facility] note* Diagnosis Hyponatremia- Primary Hyposmolality and/or hyponatremia Anemia, unspecified type documented in this encounter [facility] note* Diagnosis Diabetic peripheral neuropathy (HCC)- Primary [...] vascular disease, unspecified [facility]* Diagnosis Well controlled type 2 diabetes mellitus with neurological manifestations (HCC) Type II or unspecified type diabetes mellitus with neurological manifestations, not stated as uncontrolled documented in this encounter [facility] note* Diagnosis Onychomycosis- Primary Dermatophytosis of nail Pain in toe of left foot Pain in limb Pain in toe of right foot Pain in limb Diabetic polyneuropathy associated with type 2 diabetes mellitus (HCC) PAD (peripheral artery disease) Peripheral vascular disease, unspecified [facility]* Diagnosis Peripheral arterial disease- Primary Peripheral vascular disease, unspecified documented in this encounter [facility] note* Diagnosis Anemia, unspecified type- Primary History of colonic polyps Personal history of colonic polyps Colon cancer screening Special screening for malignant neoplasms, colon [facility]* Diagnosis Gastritis and duodenitis- Primary Unspecified gastritis and gastroduodenitis without mention of hemorrhage Gastroesophageal reflux disease with esophagitis without hemorrhage Adenomatous polyp of colon, unspecified part of colon documented in this encounter [facility] Dis[facility] instructionsWUniversity [facility] System Work Phone: Reason for referral (narrative)* Outpatient Procedure (Routine) - Pending Review Specialty Diagnoses / Procedures Referred By Contlarry t Referred To Contact [facility] Diagnoses Peripheral arterial disease (HCC) Procedures PVR LEG NOHEMY VAS [facility] NON-INVASIVE PHYSIOLOGIC STUDY EXTREMITY 3 Nargis Wiggins DO [address] [place] [address] [facility] [place] [address] [place] [address] Referral ID Status Reason Start Date Expiration Date Visits Requested Visits Authorized [id number] Pending Review Auto-Generat ed Referral 03/27/2022 03/27/2023 [address] [facility] for referral (narrative)* Outpatient Procedure (Routine) - Closed Specialty Diagnoses / Procedures Referred By Contac t Referred To Contact [facility] Diagnoses Coronary artery disease involving [place] coronary artery of [place] heart without angina pectoris Procedures ECG COMPLETE ECG ROUTINE ECG W/LEAST 12 LDS W/I&R Jules Dukes MD [address] [place] [id number] [facility] [place] [address] [place] [address] Referral ID Status Reason Start Date Expiration Date V isits Requested Visits Authorized [id number] Closed Auto-Generate d Referral 09/05/2022 09/05/2023 1 1 * Consult, Test, Treat (Routine) - Authorized Specialty Diagnoses / Procedures Referred By Contac t Referred To Contact Neurology Diagnoses Central retinal artery occlusion of left eye Procedures CONSULT TO NEUROLOGY OFFICE/OUTPATIENT [facility] MDM 60-74 MINUTES Jules Dukes MD [address] [place] [address] Referral ID Status Reason Start Date Expiration Date Visits Requested Visits Authorized [id number] Authorized PCP Requested Referral 09/05/2022 09/05/2023 [address] [facility] for referral (narrative)* Outpatient Procedure (Routine) - Closed Specialty Diagnoses / Procedures Referred By Contac t Referred To Contact [facility] Diagnoses Screening for ischemic heart disease Procedures ECG COMPLETE ECG ROUTINE ECG W/LEAST 12 LDS W/I&R Bib Patterson MD [address] [place] [address] [facility] [place] [address] [place] [address] Referral ID Status Reason Start Date Expiration Date V isits Requested Visits Authorized [id number] Closed Auto-Generate d Referral 04/29/2023 04/28/2024 [address] [facility] for referral (narrative)* Outpatient Procedure (Routine) - Authorized Specialty Diagnoses / Procedures Referred By Contac t Referred To [facility] Diagnoses Coronary artery disease involving [place] coronary artery of [place] heart without angina pectoris Procedures ECG COMPLETE ECG ROUTINE ECG W/LEAST 12 LDS W/I&R Sher Jules MD [address] [place] [address] [facility] [address] [place] [address] Referral ID Status Reason Start Date Expiration Date Visits Requested Visits Authorized [id number] Authorized Auto-Generat ed Referral 08/08/2024 [address] [facility] for referral (narrative)* Diagnostic Procedure Only (Routine) - Closed Specialty Diagnoses / Procedures Referred By Contac t Referred To Contact XR IMAGING Diagnoses Pain in both wrists Procedures XR WRIST GENERAL 3V PA/LAT/OBL BILATERAL RADEX WRIST COMPLETE MINIMUM 3 VIEWS Barb Suggs, OFFICE MACHINE PUNCH OPERATOR.HAY FARMER [address] [place] [address] [place] [address] Referral ID Status Reason Start Date Expiration Date V isits Requested Visits Authorized [id number] Closed Auto-Generate d Referral 2024 02/25/2025 [address] [facility] for referral (narrative)* Diagnostic Procedure Only (Routine) - Authorized Specialty Diagnoses / Procedures Referred By Contact Referred To Contact [facility]LECULAR [facility] FUN[facility]AL [facility]AGING Diagnoses 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) Shortness of breath Procedures NM CARDIAC PERF STRESS/PHARM MYOCARDIAL SPECT MULTIPLE STUDIES Bib Patterson MD [address] [facility], [address] [place] [address] [facility] [address] [place] [address] Referral ID Status Reason Start Date Expiration Date Visits Requested Visits Authorized [id number] Authorized Auto-Generat ed Referral 03/11/2024 03/11/2025 [address] [facility] for referral (narrative)* Diagnostic Procedure Only (Routine) - Closed Specialty Diagnoses / Procedures Referred By Contact Referred To Contact [facility] Diagnoses 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) Shortness of breath Procedures NM CARDIAC PERF STRESS/PHARM MYOCARDIAL SPECT MULTIPLE STUDIES Bib Patterson MD [address] [facility], [address] [place] [address] [facility] [address] [place], [place] [id number] Referral ID Status Reason Start Date Expiration Date V isits Requested Visits Authorized [id number] Closed Auto-Generate d Referral 03/11/2024 03/11/2025 [address] [facility] for referral (narrative)* Outpatient Procedure (Routine) - Authorized Specialty Diagnoses / Procedures Referred By Contac t Referred To Contact [facility] Diagnoses Peripheral arterial disease (HCC) Procedures PVR LEG NOHEMY VAS LAB NON-INVASIVE PHYSIOLOGIC STUDY EXTREMITY 3 Nargis Wiggins DO [address] [place] [id number] [facility] [place] [id number] [place] [address] Referral ID Status Reason Start Date Expiration Date Visits Requested Visits Authorized [id number] Authorized Auto-Generat ed Referral 04/07/2024 04/07/2025 [address] [facility] for referral (narrative)* Diagnostic Procedure Only (Routine) - Closed Specialty Diagnoses / Procedures Referred By Contac t Referred To Contact XR IMAGING Diagnoses Pain in both wrists Procedures XR WRIST GENERAL 3V PA/LAT/OBL BILATERAL RADEX WRIST COMPLETE MINIMUM 3 VIEWS Barb Suggs, OFFICE MACHINE PUNCH OPERATOR.HAY FARMER [address] [place] [address] Xr Imaging [id number] Referral ID Status Reason Start Date Expiration Date V isits Requested Visits Authorized [id number] Closed Auto-Generate d Referral 2024 02/25/2025 [address] [facility] for referral (narrative)No reason for referral information availableWUniversity Hospitals Health System Work Phone: Reason for visit Narrative* Diagnostic Procedure Only (Routine) - Closed Specialty Diagnoses / Procedures Referred By Contact Referred To Contact [facility]LECULAR & FUNCTIONAL [facility]AGING Diagnoses 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) Shortness of breath Procedures NM CARDIAC PERF STRESS/PHARM MYOCARDIAL SPECT MULTIPLE STUDIES Bib Patterson MD [address] [facility], [address] [place] [address] [facility] [address] [place] [address] Referral ID Status Reason Start Date Expiration Date V isits Requested Visits Authorized [id number] Closed Auto-Generate d Referral 03/11/2024 03/11/2025 [address] [facility] for visit Narrative* Diagnostic Procedure Only (Routine) - Closed Specialty Diagnoses / Procedures Referred By Contac t Referred To Contact XR IMAGING Diagnoses Pain in both wrists Procedures XR WRIST GENERAL 3V PA/LAT/OBL BILATERAL RADEX WRIST COMPLETE MINIMUM 3 VIEWS Barb Suggs, OFFICE MACHINE PUNCH OPERATOR.HAY FARMER [address] [place] [address] Xr Imaging [place] [address] Referral ID Status Reason Start Date Expiration Date V isits Requested Visits Authorized [id number] Closed Auto-Generate d Referral 2024 02/25/2025 [address] [facility] for visit Narrative* Auth/Cert (Routine) Specialty Diagnoses / Procedures Referred By Contac t Referred To Contact Diagnoses Coronary artery disease involving [place] coronary artery of [place] heart without angina pectoris Coronary artery disease involving [place] coronary artery of [place] heart without angina pectoris [I25.10] Procedures Left heart cath / coronary angiography w grafts Sergei Collins MD [address] [facility] [address] [place] [address] Phone: tel: fax: [facility] [address] [place] [address] Phone: tel: Referral ID Status Reason Start Date Expiration Date Visits Re quested Visits Authorized [id number] [facility] Outpatient Procedure (Routine) - Closed Specialty Diagnoses / Procedures Referred By Contac t Referred To Contact [facility] Diagnoses History of colonic polyps Anemia, unspecified type Colon cancer screening Procedures COLONOSCOPY SCREENING COLONOSCOPY FLX DX W/COLLJ SPEC WHEN PFRMD Elvie Monterroso, OFFICE MACHINE PUNCH OPERATOR.HAY FARMER [address] [place] [address] Phone: tel: fax: [facility] [address] [place] [address] Referral ID Status Reason Start Date Expiration Date V isits Requested Visits Authorized [id number] Closed Auto-Generate d Referral 03/18/2025 03/18/2026 1 1 [facility] Advance Directives No Advanced Directives Records FoundDocuments on File Type Date Recorded Patient Medical Sales Consultant Expl anation Advance Directive(s) 12/02/2018 8:26 AM Advance Directive(s) 05/23/2016 11:47 AM Advance Directive(s) 01/19/2014 4:36 PM Documents on File Type Date Recorded Patient Medical Sales Consultant Expl anation Advance Directive(s) 12/02/2018 8:26 AM Advance Directive(s) 05/23/2016 11:47 AM Advance Directive(s) 01/19/2014 4:36 PM Advance Directive Response Recorded Date/ Time Living Will No May 29, 2022 12:30pm Power of Certified Pesticide Applicator No May 29 12:30pm Advance Directive Response Recorded Date/ Time Name of Medical Power of Certified Pesticide Applicator Thi Hutson May 30, 2022 1:33am Living Will Yes May 30, 2022 1:33am Power of Certified Pesticide Applicator Yes May 30 1:33am Documents on File Type Date Recorded Patient Medical Sales Consultant Expl anation Advance Directive(s) 01/19/2014 4:36 PM Documents on File Type Date Recorded Patient Medical Sales Consultant Expl anation Advance Directive(s) 01/19/2014 4:36 PM Advance Directive Response Recorded Date/ Time Name of Medical Power of Certified Pesticide Applicator Thi Hutson- January 28, 2024 5:55pm Living Will Yes January 28, 2024 5:55pm Power of Certified Pesticide Applicator Yes January 27 5:55pm Advance Directive Response Recorded Date/ Time Name of Medical Power of Certified Pesticide Applicator Thi Hutson January 28, 2024 10:21pm Living Will Yes January 28, 2024 10:21pm Power of Certified Pesticide Applicator Yes January 27 10:21pm Advance Directive Response Recorded Date/ Time Name of Medical Power of Certified Pesticide Applicator Thi Hutson January 28, 2024 10:21pm Advance Directives on File Yes February 19, 2024 3:07pm Living Will Yes February 19, 2024 3:07pm Power of Certified Pesticide Applicator Yes February 18 3:07pm Date Activated Date Inactivated Comments 09/30/2024 9:56 AM 09/30/2024 6:14 PM Date Activated Date Inactivated Comments 09/30/2024 9:56 AM 09/30/2024 6:14 PM Advance Directive Response Recorded Date/ Time Do you have a Healthcare Power of Certified Pesticide Applicator? Yes April 29, 2025 10:35pm Chief Complaint [...] 3 Procedures CONSULT TO CARDIOLOGY OFFICE/OUTPATIENT [facility] MDM 60-74 MINUTES Sher Jules MD [address] [place] [address] Referral ID Status Reason Start Date Expiration Date Visits Requested Visits Authorized [id number] Authorized PCP Requested Referral 06/11/2022 06/11/2023 1 1 Specialty Diagnoses / Procedures Referred By Contac t Referred To Contact CT IMAGING Diagnoses Peripheral vascular disease (HCC) Procedures CTA ABD/PEL LOWER EXTREM W IVCON CTA ABDL AORTA&BI ILIOFEM W/CONTRAST&POSTP Nargis Yin, DO [address] [place] [address] Ct Imaging Referral ID Status Reason Start Date Expiration Date Visits Requested Visits Authorized [id number] Authorized Auto-Generat ed Referral 01/15/2023 02/14/2024 1 1 Referral ID Status Reason Start Date Expiration Date V isits Requested Visits Authorized [id number] Closed Auto-Generate d Referral 01/15/2023 02/14/2024 1 1 Specialty Diagnoses / Procedures Referred By Contac t Referred To Contact General Surgery Diagnoses Screening for colon cancer Procedures CONSULT TO GENERAL SURGERY OFFICE/OUTPATIENT [facility] MDM 60 MINUTES Barb uSggs, OFFICE MACHINE PUNCH OPERATOR.[employer] [address] [place] [address] Referral ID Status Reason Start Date Expiration Date Visits Requested Visits Authorized [id number] Authorized PCP Requested Referral 02/03/2024 02/02/2025 1 1 Specialty Diagnoses / Procedures Referred By Contac t Referred To Contact General Surgery Diagnoses Special screening for malignant neoplasms, colon Procedures CONSULT TO GENERAL SURGERY OFFICE/OUTPATIENT [facility] 60 MINUTES Sher Jules MD [address] [place] [address] Referral ID Status Reason Start Date Expiration Date Visits Requested Visits Authorized [id number] Authorized PCP Requested Referral 03/11/2024 03/11/2025 1 1 Summary Purpose Additional Source Comments Source Comments (unrecognize d section and content) In the event this informatio n is protected by the Federal Confidentiality of Alcohol and Drug Abuse Patient Records regulations: The Federal rules restrict any use of the information to criminally investigate or prosecute any alcohol or drug abuse patient.[facility] the event this information is protected by the Federal Confidentiality of Alcohol and Drug Abuse Patient Records regulations: The Federal rules restrict any use of the information to criminally investigate or prosecute any alcohol or drug abuse patient.[facility] the event this information is protected by the Federal Confidentiality of Alcohol and Drug Abuse Patient Records regulations: The Federal rules restrict any use of the information to criminally investigate or prosecute any alcohol or drug abuse patient.[facility] the event this information is protected by the Federal Confidentiality of Alcohol and Drug Abuse Patient Records regulations: The Federal rules restrict any use of the information to criminally investigate or prosecute any alcohol or drug abuse patient.[facility] the event this information is protected by the Federal Confidentiality of Alcohol and Drug Abuse Patient Records regulations: The Federal rules restrict any use of the information to criminally investigate or prosecute any alcohol or drug abuse patient.[facility] the event this information is protected by the Federal Confidentiality of Alcohol and Drug Abuse Patient Records regulations: The Federal rules restrict any use of the information to criminally investigate or prosecute any alcohol or drug abuse patient.[facility] the event this information is protected by the Federal Confidentiality of Alcohol and Drug Abuse Patient Records regulations: The Federal rules restrict any use of the information to criminally investigate or prosecute any alcohol or drug abuse patient.[facility] the event this information is protected by the Federal Confidentiality of Alcohol and Drug Abuse Patient Records regulations: The Federal rules restrict any use of the information to criminally investigate or prosecute any alcohol or drug abuse patient.[facility] the event this information is protected by the Federal Confidentiality of Alcohol and Drug Abuse Patient Records regulations: The Federal rules restrict any use of the information to criminally investigate or prosecute any alcohol or drug abuse patient.[facility] the event this information is protected by the Federal Confidentiality of Alcohol and Drug Abuse Patient Records regulations: The Federal rules restrict any use of the information to criminally investigate or prosecute any alcohol or drug abuse patient.[facility] the event this information is protected by the Federal Confidentiality of Alcohol and Drug Abuse Patient Records regulations: The Federal rules restrict any use of the information to criminally investigate or prosecute any alcohol or drug abuse patient.[facility] the event this information is protected by the Federal Confidentiality of Alcohol and Drug Abuse Patient Records regulations: The Federal rules restrict any use of the information to criminally investigate or prosecute any alcohol or drug abuse patient.[facility] the event this information is protected by the Federal Confidentiality of Alcohol and Drug Abuse Patient Records regulations: The Federal rules restrict any use of the information to criminally investigate or prosecute any alcohol or drug abuse patient.[facility] the event this information is protected by the Federal Confidentiality of Alcohol and Drug Abuse Patient Records regulations: The Federal rules restrict any use of the information to criminally investigate or prosecute any alcohol or drug abuse patient.[facility] the event this information is protected by the Federal Confidentiality of Alcohol and Drug Abuse Patient Records regulations: The Federal rules restrict any use of the information to criminally investigate or prosecute any alcohol or drug abuse patient.[facility] the event this information is protected by the Federal Confidentiality of Alcohol and Drug Abuse Patient Records regulations: The Federal rules restrict any use of the information to criminally investigate or prosecute any alcohol or drug abuse patient.[facility] the event this information is protected by the Federal Confidentiality of Alcohol and Drug Abuse Patient Records regulations: The Federal rules restrict any use of the information to criminally investigate or prosecute any alcohol or drug abuse patient.[facility] the event this information is protected by the Federal Confidentiality of Alcohol and Drug Abuse Patient Records regulations: The Federal rules restrict any use of the information to criminally investigate or prosecute any alcohol or drug abuse patient.[facility] the event this information is protected by the Federal Confidentiality of Alcohol and Drug Abuse Patient Records regulations: The Federal rules restrict any use of the information to criminally investigate or prosecute any alcohol or drug abuse patient.[facility] the event this information is protected by the Federal Confidentiality of Alcohol and Drug Abuse Patient Records regulations: The Federal rules restrict any use of the information to criminally investigate or prosecute any alcohol or drug abuse patient.[facility] the event this information is protected by the Federal Confidentiality of Alcohol and Drug Abuse Patient Records regulations: The Federal rules restrict any use of the information to criminally investigate or prosecute any alcohol or drug abuse patient.[facility] the event this information is protected by the Federal Confidentiality of Alcohol and Drug Abuse Patient Records regulations: The Federal rules restrict any use of the information to criminally investigate or prosecute any alcohol or drug abuse patient.[facility] the event this information is protected by the Federal Confidentiality of Alcohol and Drug Abuse Patient Records regulations: The Federal rules restrict any use of the information to criminally investigate or prosecute any alcohol or drug abuse patient.[facility]In the event this information is protected by the Federal Confidentiality of Alcohol and Drug Abuse Patient Records regulations: The Federal rules restrict any use of the information to criminally investigate or prosecute any alcohol or drug abuse patient.[facility]In the event this information is protected by the Federal Confidentiality of Alcohol and Drug Abuse Patient Records regulations: The Federal rules restrict any use of the information to criminally investigate or prosecute any alcohol or drug abuse patient.[facility]In the event this information is protected by the Federal Confidentiality of Alcohol and Drug Abuse Patient Records regulations: The Federal rules restrict any use of the information to criminally investigate or prosecute any alcohol or drug abuse patient.[facility]In the event this information is protected by the Federal Confidentiality of Alcohol and Drug Abuse Patient Records regulations: The Federal rules restrict any use of the information to criminally investigate or prosecute any alcohol or drug abuse patient.[facility]In the event this information is protected by the Federal Confidentiality of Alcohol and Drug Abuse Patient Records regulations: The Federal rules restrict any use of the information to criminally investigate or prosecute any alcohol or drug abuse patient.[facility]In the event this information is protected by the Federal Confidentiality of Alcohol and Drug Abuse Patient Records regulations: The Federal rules restrict any use of the information to criminally investigate or prosecute any alcohol or drug abuse patient.[facility]In the event this information is protected by the Federal Confidentiality of Alcohol and Drug Abuse Patient Records regulations: The Federal rules restrict any use of the information to criminally investigate or prosecute any alcohol or drug abuse patient.[facility]In the event this information is protected by the Federal Confidentiality of Alcohol and Drug Abuse Patient Records regulations: The Federal rules restrict any use of the information to criminally investigate or prosecute any alcohol or drug abuse patient.[facility]In the event this information is protected by the Federal Confidentiality of Alcohol and Drug Abuse Patient Records regulations: The Federal rules restrict any use of the information to criminally investigate or prosecute any alcohol or drug abuse patient.[facility]In the event this information is protected by the Federal Confidentiality of Alcohol and Drug Abuse Patient Records regulations: The Federal rules restrict any use of the information to criminally investigate or prosecute any alcohol or drug abuse patient.[facility]In the event this information is protected by the Federal Confidentiality of Alcohol and Drug Abuse Patient Records regulations: The Federal rules restrict any use of the information to criminally investigate or prosecute any alcohol or drug abuse patient.[facility]In the event this information is protected by the Federal Confidentiality of Alcohol and Drug Abuse Patient Records regulations: The Federal rules restrict any use of the information to criminally investigate or prosecute any alcohol or drug abuse patient.[facility]In the event this information is protected by the Federal Confidentiality of Alcohol and Drug Abuse Patient Records regulations: The Federal rules restrict any use of the information to criminally investigate or prosecute any alcohol or drug abuse patient.[facility]In the event this information is protected by the Federal Confidentiality of Alcohol and Drug Abuse Patient Records regulations: The Federal rules restrict any use of the information to criminally investigate or prosecute any alcohol or drug abuse patient.[facility]In the event this information is protected by the Federal Confidentiality of Alcohol and Drug Abuse Patient Records regulations: The Federal rules restrict any use of the information to criminally investigate or prosecute any alcohol or drug abuse patient.[facility]In the event this information is protected by the Federal Confidentiality of Alcohol and Drug Abuse Patient Records regulations: The Federal rules restrict any use of the information to criminally investigate or prosecute any alcohol or drug abuse patient.[facility]ullIn the event this information is protected by the Federal Confidentiality of Alcohol and Drug Abuse Patient Records regulations: The Federal rules restrict any use of the information to criminally investigate or prosecute any alcohol or drug abuse patient.[facility]In the event this information is protected by the Federal Confidentiality of Alcohol and Drug Abuse Patient Records regulations: The Federal rules restrict any use of the information to criminally investigate or prosecute any alcohol or drug abuse patient.[facility]In the event this information is protected by the Federal Confidentiality of Alcohol and Drug Abuse Patient Records regulations: The Federal rules restrict any use of the information to criminally investigate or prosecute any alcohol or drug abuse patient.[facility]In the event this information is protected by the Federal Confidentiality of Alcohol and Drug Abuse Patient Records regulations: The Federal rules restrict any use of the information to criminally investigate or prosecute any alcohol or drug abuse patient.[facility]ullIn the event this information is protected by the Federal Confidentiality of Alcohol and Drug Abuse Patient Records regulations: The Federal rules restrict any use of the information to criminally investigate or prosecute any alcohol or drug abuse patient.[facility]ullIn the event this information is protected by the Federal Confidentiality of Alcohol and Drug Abuse Patient Records regulations: The Federal rules restrict any use of the information to criminally investigate or prosecute any alcohol or drug abuse patient.[facility]In the event this information is protected by the Federal Confidentiality of Alcohol and Drug Abuse Patient Records regulations: The Federal rules restrict any use of the information to criminally investigate or prosecute any alcohol or drug abuse patient.[facility]In the event this information is protected by the Federal Confidentiality of Alcohol and Drug Abuse Patient Records regulations: The Federal rules restrict any use of the information to criminally investigate or prosecute any alcohol or drug abuse patient.[facility]ullIn the event this information is protected by the Federal Confidentiality of Alcohol and Drug Abuse Patient Records regulations: The Federal rules restrict any use of the information to criminally investigate or prosecute any alcohol or drug abuse patient.[facility]In the event this information is protected by the Federal Confidentiality of Alcohol and Drug Abuse Patient Records regulations: The Federal rules restrict any use of the information to criminally investigate or prosecute any alcohol or drug abuse patient.[facility]ullIn the event this information is protected by the Federal Confidentiality of Alcohol and Drug Abuse Patient Records regulations: The Federal rules restrict any use of the information to criminally investigate or prosecute any alcohol or drug abuse patient.[facility]In the event this information is protected by the Federal Confidentiality of Alcohol and Drug Abuse Patient Records regulations: The Federal rules restrict any use of the information to criminally investigate or prosecute any alcohol or drug abuse patient.[facility]ullIn the event this information is protected by the Federal Confidentiality of Alcohol and Drug Abuse Patient Records regulations: The Federal rules restrict any use of the information to criminally investigate or prosecute any alcohol or drug abuse patient.[facility]In the event this information is protected by the Federal Confidentiality of Alcohol and Drug Abuse Patient Records regulations: The Federal rules restrict any use of the information to criminally investigate or prosecute any alcohol or drug abuse patient.[facility]In the event this information is protected by the Federal Confidentiality of Alcohol and Drug Abuse Patient Records regulations: The Federal rules restrict any use of the information to criminally investigate or prosecute any alcohol or drug abuse patient.[facility]ullIn the event this information is protected by the Federal Confidentiality of Alcohol and Drug Abuse Patient Records regulations: The Federal rules restrict any use of the information to criminally investigate or prosecute any alcohol or drug abuse patient.[facility]In the event this information is protected by the Federal Confidentiality of Alcohol and Drug Abuse Patient Records regulations: The Federal rules restrict any use of the information to criminally investigate or prosecute any alcohol or drug abuse patient.[facility]In the event this information is protected by the Federal Confidentiality of Alcohol and Drug Abuse Patient Records regulations: The Federal rules restrict any use of the information to criminally investigate or prosecute any alcohol or drug abuse patient.[facility]In the event this information is protected by the Federal Confidentiality of Alcohol and Drug Abuse Patient Records regulations: The Federal rules restrict any use of the information to criminally investigate or prosecute any alcohol or drug abuse patient.[facility]In the event this information is protected by the Federal Confidentiality of Alcohol and Drug Abuse Patient Records regulations: The Federal rules restrict any use of the information to criminally investigate or prosecute any alcohol or drug abuse patient.[facility]ullIn the event this information is protected by the Federal Confidentiality of Alcohol and Drug Abuse Patient Records regulations: The Federal rules restrict any use of the information to criminally investigate or prosecute any alcohol or drug abuse patient.[facility]In the event this information is protected by the Federal Confidentiality of Alcohol and Drug Abuse Patient Records regulations: The Federal rules restrict any use of the information to criminally investigate or prosecute any alcohol or drug abuse patient.[facility]In the event this information is protected by the Federal Confidentiality of Alcohol and Drug Abuse Patient Records regulations: The Federal rules restrict any use of the information to criminally investigate or prosecute any alcohol or drug abuse patient.[facility]In the event this information is protected by the Federal Confidentiality of Alcohol and Drug Abuse Patient Records regulations: The Federal rules restrict any use of the information to criminally investigate or prosecute any alcohol or drug abuse patient.[facility]ullIn the event this information is protected by the Federal Confidentiality of Alcohol and Drug Abuse Patient Records regulations: The Federal rules restrict any use of the information to criminally investigate or prosecute any alcohol or drug abuse patient.[facility]In the event this information is protected by the Federal Confidentiality of Alcohol and Drug Abuse Patient Records regulations: The Federal rules restrict any use of the information to criminally investigate or prosecute any alcohol or drug abuse patient.[facility]In the event this information is protected by the Federal Confidentiality of Alcohol and Drug Abuse Patient Records regulations: The Federal rules restrict any use of the information to criminally investigate or prosecute any alcohol or drug abuse patient.[facility]In the event this information is protected by the Federal Confidentiality of Alcohol and Drug Abuse Patient Records regulations: The Federal rules restrict any use of the information to criminally investigate or prosecute any alcohol or drug abuse patient.[facility]In the event this information is protected by the Federal Confidentiality of Alcohol and Drug Abuse Patient Records regulations: The Federal rules restrict any use of the information to criminally investigate or prosecute any alcohol or drug abuse patient.[facility]In the event this information is protected by the Federal Confidentiality of Alcohol and Drug Abuse Patient Records regulations: The Federal rules restrict any use of the information to criminally investigate or prosecute any alcohol or drug abuse patient.[facility]ullIn the event this information is protected by the Federal Confidentiality of Alcohol and Drug Abuse Patient Records regulations: The Federal rules restrict any use of the information to criminally investigate or prosecute any alcohol or drug abuse patient.[facility]ullIn the event this information is protected by the Federal Confidentiality of Alcohol and Drug Abuse Patient Records regulations: The Federal rules restrict any use of the information to criminally investigate or prosecute any alcohol or drug abuse patient.[facility]In the event this information is protected by the Federal Confidentiality of Alcohol and Drug Abuse Patient Records regulations: The Federal rules restrict any use of the information to criminally investigate or prosecute any alcohol or drug abuse patient.[facility]ullIn the event this information is protected by the Federal Confidentiality of Alcohol and Drug Abuse Patient Records regulations: The Federal rules restrict any use of the information to criminally investigate or prosecute any alcohol or drug abuse patient.[facility] the event this information is protected by the Federal Confidentiality of Alcohol and Drug Abuse Patient Records regulations: The Federal rules restrict any use of the information to criminally investigate or prosecute any alcohol or drug abuse patient.[facility] the event this information is protected by the Federal Confidentiality of Alcohol and Drug Abuse Patient Records regulations: The Federal rules restrict any use of the information to criminally investigate or prosecute any alcohol or drug abuse patient.[facility] the event this information is protected by the Federal Confidentiality of Alcohol and Drug Abuse Patient Records regulations: The Federal rules restrict any use of the information to criminally investigate or prosecute any alcohol or drug abuse patient.[facility] the event this information is protected by the Federal Confidentiality of Alcohol and Drug Abuse Patient Records regulations: The Federal rules restrict any use of the information to criminally investigate or prosecute any alcohol or drug abuse patient.[facility] the event this information is protected by the Federal Confidentiality of Alcohol and Drug Abuse Patient Records regulations: The Federal rules restrict any use of the information to criminally investigate or prosecute any alcohol or drug abuse patient.[facility] Reason for Visit (unrecogniz ed section and content) Reason Onset Date Comments Refill Request 02/28/2022 Reason Comments Established Patient Reason Comments Established Patient Nail Check Reason Comments 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 Reason Comments Appointment Reason Comments Hospital F/U Reason Onset Date Comments Refill Request 06/14/2022 Reason Comments Blood Pressure Check Reason Onset Date Comments Refill Request 07/09/2022 Reason Onset Date Comments Follow Up Immunizations 07/18/2022 Flu vaccination Reason Comments Consult Specialty Diagnoses / Procedures Referred By Contac t Referred To Contact Cardiology Diagnoses Essential hypertension S/P CABG x 3 Procedures CONSULT TO CARDIOLOGY OFFICE/OUTPATIENT [facility] 60-74 MINUTES Sher Jules MD [address] [place] [address] Referral ID Status Reason Start Date Expiration Date V isits Requested Visits Authorized [id number] Closed PCP Requested Referral 06/11/2022 06/11/2023 1 1 Reason Comments Established Patient Follow Up Diabetic Foot Care Reason Comments Covid19 Concern Reason Comments TIA Specialty Diagnoses / Procedures Referred By Contac t Referred To Contact Neurology Diagnoses Central retinal artery occlusion of left eye Procedures CONSULT TO NEUROLOGY OFFICE/OUTPATIENT [facility] 60-74 MINUTES Jules Dukes MD [address] [place] [address] Referral ID Status Reason Start Date Expiration Date V isits Requested Visits Authorized [id number] Closed PCP Requested Referral 09/05/2022 09/05/2023 1 [...] ILIOFEM W/CONTRAST&POSTP Nargis Yin, DO [address] [place] [address] Ct Imaging Referral ID Status Reason Start Date Expiration Date V isits Requested Visits Authorized [id number] Closed Auto-Generate d Referral 01/15/2023 02/14/2024 1 [...] HOSPITALIZED Reason Comments Hospital F/U D/c from [facility] on 01/29 for chest pain an [...] MDM 60 MINUTES Sher Jules MD [address] [place] [address] Referral ID Status Reason Start Date Expiration Date V isits Requested Visits Authorized [id number] Closed PCP Requested Referral 03/11/2024 03/11/2025 1 [...] Care Teams (unrecognized sec tion and content) Cloth Folder Machine Relationship Specialty Start Date End Date Sher Jules MD [address] [place] [address] PCP - General 07/28/08 Cloth Folder Machine Relationship Specialty Start Date End Date Sher Jules MD [address] [place] [address] PCP - General 07/28/08 Cloth Folder Machine Relationship Specialty Start Date End Date Sher Jules MD [address] [place] [address] PCP - General 07/28/08 Cloth Folder Machine Relationship Specialty Start Date End Date Sher Jules MD [address] [place] [address] PCP - General 07/28/08 Cloth Folder Machine Relationship Specialty Start Date End Date Sher Jules MD [address] [place] [address] PCP - General 07/28/08 Cloth Folder Machine Relationship Specialty Start Date End Date Sher Jules MD [address] [facility] [place] [address] PCP - General 07/28/08 Cloth Folder Machine Relationship Specialty Start Date End Date Sher Jules MD [facility] [place] [place] [address] PCP - General 07/28/08 Cloth Folder Machine Relationship Specialty Start Date End Date Sher Jules MD [address] [place] [address], [place] [address] PCP - General 07/28/08 Cloth Folder Machine Relationship Specialty Start Date End Date Sher Jules MD [address] [place] [address] [place] [address] PCP - General 07/28/08 Cloth Folder Machine Relationship Specialty Start Date End Date Sher Jules MD [address] [place] [address], [place] [address] PCP - General 07/28/08 Cloth Folder Machine Relationship Specialty Start Date End Date Sher Jules MD [address] [place] [address] [place] [address] PCP - General 07/28/08 Cloth Folder Machine Relationship Specialty Start Date End Date Sher Jules MD [address] [place] [address] [place] [address] PCP - General 07/28/08 Trevor Robison MD [address] [place] [address] [place] [address] Neurology 10/01/22 Cloth Folder Machine Relationship Specialty Start Date End Date Sher Jules MD [address] [place] [address] [place] [address] PCP - General 07/28/08 Trevor Robison MD [address] [place] [address] [place] [address] Neurology 10/01/22 Cloth Folder Machine Relationship Specialty Start Date End Date Sher Jules MD [address] [facility] [place] [place] [address] PCP - General 07/28/08 Trevor Robison MD [address] [facility] [place] [address] Neurology 10/01/22 Cloth Folder Machine Relationship Specialty Start Date End Date Sher Jules MD [address] [place] [address] PCP - General 07/28/08 Trevor Robison MD [address] [facility] [place] [address] Neurology 10/01/22 Cloth Folder Machine Relationship Specialty Start Date End Date Sher Jules MD [address] [place] [address] PCP - General 07/28/08 Trevor Robison MD [address] [facility] [place] [address] Neurology 10/01/22 Cloth Folder Machine Relationship Specialty Start Date End Date Sher Jules MD [address] [place] [address] PCP - General 07/28/08 Trevor Robison MD [address] [facility] [place] [address] Neurology 10/01/22 Cloth Folder Machine Relationship Specialty Start Date End Date Sher Jules MD [address] [facility] [place] [address] PCP - General 07/28/08 Trevor Robison MD [address] [facility] [place] [address] Neurology 10/01/22 Cloth Folder Machine Relationship Specialty Start Date End Date Sher Jules MD [address] [facility] [place] [address] PCP - General 07/28/08 Trevor Robison MD [address] [facility] [place] [address] Neurology 10/01/22 Cloth Folder Machine Relationship Specialty Start Date End Date Sher Jules MD [address] [place] [address] PCP - General 07/28/08 Trevor Robison MD [address] [facility] [place] [address] Neurology 10/01/22 Cloth Folder Machine Relationship Specialty Start Date End Date Sher Jules MD [address] [place] [address] PCP - General 07/28/08 Trevor Robison MD [address] [facility] [place] [address] Neurology 10/01/22 Cloth Folder Machine Relationship Specialty Start Date End Date Sher Jules MD [address] [place] [address] PCP - General 07/28/08 Trevor Robison MD [address] [facility] [place] [address] Neurology 10/01/22 Cloth Folder Machine Relationship Specialty Start Date End Date Sher Jules MD [address] [place] [address] PCP - General 07/28/08 Trevor Robison MD [address] [facility] [place] [address] Neurology 10/01/22 Cloth Folder Machine Relationship Specialty Start Date End Date Sher Jules MD [address] [place], [place] 046881 PCP - General 07/28/08 Trevor Robison MD [address] [facility] [address] [place], [place] 876521 Neurology 10/01/22 Cloth Folder Machine Relationship Specialty Start Date End Date Sher Jules MD [address] [place], [place] 793171 PCP - General 07/28/08 Trevor Robison MD [address] [facility] [address] [place], [place] 393171 Neurology 10/01/22 Cloth Folder Machine Relationship Specialty Start Date End Date Sher Jules MD [address] [place], [place] 461811 PCP - General 07/28/08 Trevor Robison MD [address] [facility] [place] [address] Neurology 10/01/22 Cloth Folder Machine Relationship Specialty Start Date End Date Sher Jules MD [address] [place], [place] 654041 PCP - General 07/28/08 Trevor Robison MD [address] [facility] [address] [place], [place] 796701 Neurology 10/01/22 Cloth Folder Machine Relationship Specialty Start Date End Date Sher Jules MD [address] [place], [place] [id number] PCP - General 07/28/08 Trevor Robison MD [address] [facility] [address] [place], [place] 232611 Neurology 10/01/22 Cloth Folder Machine Relationship Specialty Start Date End Date Sher Jules MD [address] [place], [place] 999031 PCP - General 07/28/08 Trevor Robison MD [address] [facility] [address] [place], [place] 235341 Neurology 10/01/22 Cloth Folder Machine Relationship Specialty Start Date End Date Sher Jules MD [address] [place], [place] 859851 PCP - General 07/28/08 Trevor Robison MD [address] [facility] [address] [place] [place], [place] 150281 Neurology 10/01/22 Cloth Folder Machine Relationship Specialty Start Date End Date Sher Jules MD [address] [place], [place] 501991 PCP - General 07/28/08 Trevor Robison MD [address] [facility] [address] [place], [place] 961361 Neurology 10/01/22 Cloth Folder Machine Relationship Specialty Start Date End Date Sher Jules MD [address] [place], [place] 293941 PCP - General 07/28/08 Trevor Robison MD [address] [facility] [address] [place], [place] 278071 Neurology 10/01/22 Cloth Folder Machine Relationship Specialty Start Date End Date Sher Jules MD [address] [place], [place] 116371 PCP - General 07/28/08 Trevor Robison MD [address] [facility] [address] [place], [place] 367301 Neurology 10/01/22 Cloth Folder Machine Relationship Specialty Start Date End Date Sher Jules MD [address] [place], [place] 534421 PCP - General 07/28/08 Trevor Robison MD [address] [facility] [address] [place], [place] 570721 Neurology 10/01/22 Cloth Folder Machine Relationship Specialty Start Date End Date Sher Jules MD [address] [place], [place] 625621 PCP - General 07/28/08 Trevor Robison MD [address] [facility] [address] [place], [place] 128181 Neurology 10/01/22 Cloth Folder Machine Relationship Specialty Start Date End Date Sher Jules MD [address] [place], [place] 7319[address] PCP - General 07/28/08 Trevor Robison MD [address] [facility] [address] [place], [place] 853841 Neurology 10/01/22 Team Status: Active Member Role [...] Provider, Other Provid er Active Dr. Geeta Mednoza MD Admit Provider, Other Provider Active Dr. Debby Machuca MD Attending Provider Active Cloth Folder Machine Relationship Specialty Start Date End Date Sher Jules MD [address] [place] [address] PCP - General 07/28/08 Trevor Robison MD [address] [facility] [place] [address] Neurology 10/01/22 Cloth Folder Machine Relationship Specialty Start Date End Date Sher Jules MD [address] [place] [address] PCP - General 07/28/08 Trevor Robison MD [address] [facility] [place] [address] Neurology 10/01/22 Cloth Folder Machine Relationship Specialty Start Date End Date Sher Jules MD [address] [place] [address] PCP - General 07/28/08 Trevor Robison MD [address] [facility] [place] [address] Neurology 10/01/22 Team Status: Active Member Role [...] MD Attending Provider, Referring Provid er Active Cloth Folder Machine Relationship Specialty Start Date End Date Sher Jules MD [address] [place], [place] 460621 PCP - General 07/28/08 Trevor Robison MD [address] [facility] [address] [place], [place] 521131 Neurology 10/01/22 Cloth Folder Machine Relationship Specialty Start Date End Date Sher Jules MD [address] [place], [place] 638051 PCP - General 07/28/08 Trevor Robison MD [address] [facility] [address] [place], [place] 708881 Neurology 10/01/22 Cloth Folder Machine Relationship Specialty Start Date End Date Sher Jules MD [address] [place], [place] 63327691 PCP - General 07/28/08 Trevor Robison MD [address] [facility] [address] [place], [place] 647381 Neurology 10/01/22 Cloth Folder Machine Relationship Specialty Start Date End Date Sher Jules MD [address] [place], [place] 789091 PCP - General 07/28/08 Trevor Robison MD [address] [facility] [address] [place], [place] 053051 Neurology 10/01/22 Cloth Folder Machine Relationship Specialty Start Date End Date Sher Jules MD [address] [place], [place] 78027691 PCP - General 07/28/08 Trevor Robison MD [address] [facility] [address] [place], [place] 47383281 Neurology 10/01/22 Cloth Folder Machine Relationship Specialty Start Date End Date Sher Jules MD [address] [place], [place] 568351 PCP - General 07/28/08 Trevor Robison MD [address] [facility] [address] [place], [place] 501491 Neurology 10/01/22 Cloth Folder Machine Relationship Specialty Start Date End Date Sher Jules MD [address] [place], [place] 013481 PCP - General 07/28/08 Trevor Robison MD [address] [facility] [address] [place], [place] 078291 Neurology 10/01/22 Cloth Folder Machine Relationship Specialty Start Date End Date Sher Jules MD [address] [place], [place] 12812937 PCP - General 07/28/08 Trevor Robison MD [address] [facility] [address] [place], [place] 15614281 Neurology 10/01/22 Cloth Folder Machine Relationship Specialty Start Date End Date Sher Jules MD [address] [place], [place] 708501 PCP - General 07/28/08 Trevor Robison MD [address] [facility] [address] [place], [place] 949771 Neurology 10/01/22 Cloth Folder Machine Relationship Specialty Start Date End Date Sher Jules MD [address] [place], [place] 587401 PCP - General 07/28/08 Trevor Robison MD [address] [facility] [address] [place], [place] 487791 Neurology 10/01/22 Cloth Folder Machine Relationship Specialty Start Date End Date Sher Jules MD [address] [place], [place] 521061 PCP - General 07/28/08 Trevor Robison MD [address] [facility] [address] [place], [place] 364951 Neurology 10/01/22 Cloth Folder Machine Relationship Specialty Start Date End Date Sher Jules [address] [place], [place] 641701 PCP - General Internal Medicine 09/16/24 Cloth Folder Machine Relationship Specialty Start Date End Date Sher Jules [address] [facility], [place] [address]01 PCP - General Internal Medicine 09/16/24 Cloth Folder Machine Relationship Specialty Start Date End Date Sher Jules [address] [place] [address] PCP - General Internal Medicine 09/16/24 Cloth Folder Machine Relationship Specialty Start Date End Date Sher Jules [address] [facility] [place] [address] PCP - General Internal Medicine 09/16/24 Cloth Folder Machine Relationship Specialty Start Date End Date Sher Jules MD [address] [facility], [place] 636791 PCP - General 07/28/08 Trevor Robison MD [address] [facility] [address] [place], [place] 838051 Neurology 10/01/22 Barb Suggs, OFFICE MACHINE PUNCH OPERATOR.HAY FARMER [address] [facility] [place] [address] Land Examiner Internal Medicine 10/05/24 Cloth Folder Machine Relationship Specialty Start Date End Date Sher Jules MD [address] [facility], [place] 592671 PCP - General 07/28/08 Trevor Robison MD [address] [facility] [place] [address] Neurology 10/01/22 Barb Suggs, OFFICE MACHINE PUNCH OPERATOR.HAY FARMER [address] [facility] [place] [address] Land Examiner Internal Medicine 10/05/24 Cloth Folder Machine Relationship Specialty Start Date End Date Sher Jules MD [address] [place] [address] PCP - General 07/28/08 Trevor Robison MD [address] [facility] [place] [address] Neurology 10/01/22 Barb Suggs, OFFICE MACHINE PUNCH OPERATOR.HAY FARMER [address] [facility] [place] [address] [facility] Internal Medicine 10/05/24 Cloth Folder Machine Relationship Specialty Start Date End Date Sher Jules MD [address] [facility] [place] [place] 229861 PCP - General 07/28/08 Trevor Robison MD [address] [facility] [place] [address] Neurology 10/01/22 Barb Suggs, OFFICE MACHINE PUNCH OPERATOR.HAY FARMER [address] [facility] [place] [place] [address] Land Examiner Internal Medicine 10/05/24 Cloth Folder Machine Relationship Specialty Start Date End Date Sher Jules MD [address] [facility] [place] [place] 707151 PCP - General 07/28/08 Trevor Robison MD [address] [facility] [place] [address] Neurology 10/01/22 Barb Suggs, OFFICE MACHINE PUNCH OPERATOR.HAY FARMER [address] [facility], [place] 545[address] [facility] Internal Medicine 10/05/24 Cloth Folder Machine Relationship Specialty Start Date End Date Sher Jules MD [address] [facility], [place] 105151 PCP - General 07/28/08 Trevor Robison MD [address] [place] [address] [place] [address] Neurology 10/01/22 Barb Suggs, OFFICE MACHINE PUNCH OPERATOR.HAY FARMER [address] [facility], [place] 7[address] [facility] Internal Medicine 10/05/24 Team Status: Active Member [...] Active Start: March 12, 2025 Naz Cox RIFLE CASE REPAIRER, RIFLE CASE REPAIRER-C Attending Provider Active Start: March 12, 2025 Cloth Folder Machine Relationship Specialty Start Date End Date Sher Jules MD [address] [facility] [place] [address] PCP - General 07/28/08 Trevor Robison MD [address] [facility] [place] [address] Neurology 10/01/22 Barb Suggs, OFFICE MACHINE PUNCH OPERATOR.HAY FARMER [address] [place] [address] Land Examiner Internal Medicine 10/05/24 Cloth Folder Machine Relationship Specialty Start Date End Date Sher Jules MD [address] [place] [address] PCP - General 07/28/08 Trevor Robison MD [address] [place] [address] Neurology 10/01/22 Barb Suggs, OFFICE MACHINE PUNCH OPERATOR.HAY FARMER [address] [place] [address] Land Examiner Internal Medicine 10/05/24 Cloth Folder Machine Relationship Specialty Start Date End Date Sher Jules MD [address] [facility] [place] [address] PCP - General 07/28/08 Trevor Robison MD [address] [place] [address] Neurology 10/01/22 Barb Suggs, OFFICE MACHINE PUNCH OPERATOR.HAY FARMER [address] [facility] [place] [address] Land Examiner Internal Medicine 10/05/24 Cloth Folder Machine Relationship Specialty Start Date End Date Sher Jules MD [address] [place] [address] PCP - General 07/28/08 Trevor Robison MD [address] [facility] [place] [address] Neurology 10/01/22 Barb Suggs, OFFICE MACHINE PUNCH OPERATOR.HAY FARMER [address] [facility] [place] [address] Land Examiner Internal Medicine 10/05/24 Team Status: Active Member [...] Start: March 12, 2025 Naz Cox NP, RIFLE CASE REPAIRER-C Attending Provider Active Start: March 12, 2025 [...] section and content) DATE CREATED AUTHOR 03/13/2024 [facility] DATE CREATED AUTHOR AUTHOR'S ORGANIZ ATION 01/02/2025 [facility] DATE CREATED AUTHOR AUTHOR'S ORGANIZ ATION 04/23/2025 [facility] DATE CREATED AUTHOR AUTHOR'S ORGANIZ ATION 05/08/2025 [facility] Scheduled Active and Recently Administ ered Medications [...] BE BASED ON THE PRIMARY CLINICAL RECORDS. [email or web address] provides no warranty or guarantee of the accuracy or completeness of information in this document.
--- OUTSIDE RECORDS SUMMARY | 2025-05-08 07:34 | XMS RPT_ITS | CCD ---
Author Organization [facility] CliniSyri Care Team Providers Care Child Watch Attendant Name Role Phone Jorge A LADD, Sher [...] Unavailable Sher Jules Primary Care Provider Maximo LOCKER PLANT ATTENDANTJUAN, Barb Ley Unavailable SERGEI COLLINS Attending Unavailable [...] LADD, Dr. Madrigal Emergency Provider Jose A LAUNDRY ROUTEMAN-CJordana Attending Provider [phone] Sanya LADD, Dr. [...] Unavailable Jules, Sher Primary Care Unavailable Roof LAUNDRY ROUTEMAN, Tootie H Attending Unavailable Roof LAUNDRY ROUTEMAN, Tootie H Referring Unavailable Jules, Sher Primary [...] on above: Take 1 capsule by mo [facility] daily at bedtime for 180 days. [...] 12 hours. Take 2 tablets by mo [facility] every 12 hours. Multivitamin With Folic [...] Coronary atherosclerosis; Translations: [Atherosclerotic heart disease of [place] coronary artery without angina pectoris] Onset: 05-06-2023 [...] Long-term current use of drug therapy; Translations: [intermediate (current) use of antithrombotics/antip latelets] 04-30-2025 Episodic [...] X 22 and 2.5 X 1 2 [place] LISANDRO to distal RCA (01/29/24); drug-eluting stent [...] Report on 05-07-2025 Plastic Surgery Visit Report [facility] Plastic Reconstructive Surgery [address], [address] [place] [address] OFFICE VISIT Date of Service: 05/07/25 MR#: [id number] Acct: [id number] Name: MARIE HUTSON Rep #: [id number] : 1950 Provider: Dr. Nic Rodriguez MD Age/Sex: 75/M Location: [facility] Status: Signed Intake Vital Signs 05/06/25 14:05 05/07/25 13:28 Height 5 ft 10 in 5 ft 10 in Weight: 198 lb 194 lb BMI 28.4 27.8 BP 156/71 H Blood Pressure Location Lt brachial Position Sitting Respiration 16 Pulse 57 L Pulse Source Monitor Pulse Oximetry (%) 97 Oxygen Delivery Method room air Intake Visit Reasons: R HAND Tire Spotter Required: No Accompanied by: Self Is patient [...] at this time. injury 04/29/25. [facility] Medical History CAD (coronary artery disease) Diabetes Dyslipidemia Hypertension Type 2 diabetes mellitus without complications Peripheral vascular disease, unspecified Essential (primary) hypertension Atherosclerotic heart disease of [place] coronary artery without angina pectoris Diabetes mellitus, [...] No ligh (more content not included)... Normal [facility] Hand Min 3 Viewson 5 Hand Min 3 Views [facility] Imaging Services [address] [place], [place] [address] Hand Min 3 Views MR#: [id number] Acct: [id number] Name: MARIE HUTSON Rep #: [id number] : 1950 M 75 From: Arslan beasley MD PCP: Dr. Sher Jules MD Status: DEP AMB Study: Hand Min 3 Views Date of Exam: 05/06/25 Exam# [id number] Ordering Dr: Jordana Naranjo LAUNDRY ROUTEMAN-Get[place]w PROCEDURE: HAND MIN 3 VIEWS 05/06/2025 REASON [...] metacarpal bone. Follow-up is advised Reading Location[facility] CC: TANIYA Naranjo; Dr. Sher Jules MD Oil Well Cable Tool Operator: Signed Normal [facility] Orthopedic Visit Reporton Orthopedic Visit Report [facility] [address] [place] [address] [place] [address] OFFICE VISIT Date of Service: 05/06/25 MR#: [id number] Acct: [id number] Name: MARIE HUTSON Rep #: [id number] : 1950 Provider: TANIYA stock Age/Sex: 75/M Location: [facility] Status: Signed Intake Vital Signs 04/29/25 22:27 [...] Essential (primary) hypertension Atherosclerotic heart disease of [place] coronary artery without angina pectoris Diabetes mellitus, [...] the decisions made by me, Jordana Naranjo LAUNDRY ROUTEMAN-C 05/06/25 1402. Part of today???s visit was [...] of the hand. He was seen in [facility] ER after the fall because he needed stitches in the head but the hand was not bothering him then so he didn't have it checked. He states the hand did not start bothering him until the next day when he started to notice some swelling and bruising. Patient is LHD. He states it really bothers him to director anything or hold onto anything. He denies [...] cough, De (more content not included)... Normal [facility] Emergency Department Summary on 04-30-2025 Emergency Department Summary [facility] Medical Records Department [address] [place] [address] Emergency Department Summary 04/30/25 MR#: [id number] Acct: [id number] Name: MAIRE HUTSON Rep #: [id number] : 1950 75 From: Rohan Wallace MD [...] similar symptoms: No Recent Illness/Hospitalization : [facility] Medical History Atherosclerotic heart disease of [place] coronary artery without angina pectoris Branch retinal [...] Denies dysuria, (more content not included)... Normal [facility] Brain/Head without Contrasto n 04-29-2025 Brain/Head without Contrast [facility] Imaging Services [address] [place] [address] Brain/Head without Contrast MR#: [id number] Acct: [id number] Name: MARIE HUTSON Rep #: [id number] : 1950 M 75 From: Kirill Sifuentes MD PCP: Dr. Sher Jules MD Status: REG ER Study: Brain/Head without Contrast Date of Exam: 01/19 Exam# [id number] Ordering Dr: Rohan Wallace MD PROCEDURE: BRAIN/HEAD [...] IMPRESSION: No acute intracranial finding Reading Location: [place] [address] CC: Dr. Rohan Wallace MD; Dr. Sher Jules MD Oil Well Cable Tool Operator: Signed Normal [facility] CNOVon 04-22-2025 CNOV Office Visit (GENSWS ) MARIE HUTSON ([id number]) 1950 M Date Time Provider Department 04/22/25 10:30 AM ELVIE MONTERROSO During your visit today, we recorded the following information about you: Elvie Monterroso APRN.CNP 04/22/2025 10:56 AM Signed FOLLOW UP VISIT - ENDOSCOPY Marie Hutson 1950 [id number] REFERRING PHYSICIAN: Nikos Rivera [address] [facility] [address] Marie Hutson is a patient I am [...] needed for worsening/no improvement. ____ Elvie Monterroso APRN.ELEMENTARY ART TEACHER Referring Provider: NIKOS RIVERA [[id number]] Allergies As of Date: 04/22/2025 (No Known Allergies) Date Reviewed: 04/22/2025 Reviewed by: Elvie Monterroso APRN.ELEMENTARY ART TEACHER - Fully Assessed Reason for Visit: Follow [...] EC tablet (more content not included)... Normal [facility] [id number] 04-14-2025 [id number] HNO ID: [id number] Author: NURIS MEEK RN Service: ? Author Type: Registered Nurse Type: [id number] Filed: 04/14/2025 09:21 Note Text: The patient received a copy of Colonoscopy and EGD discharge instructions that contain information for how to contact the physician who performed the procedure and when to seek medical care. Normal [facility] Colonoscopyon 04-14-2025 Colonoscopy [place] [facility] Gastrointestinal Endoscopy Patient Name: Marie Hutson Procedure [...] current guidelines. Procedure Code(s): --- Professional --- 44350, Colonoscopy, flexible; with biopsy, single or multiple G0500, Moderate sedation services provided by the same physician or other qualified health continuum of care manager performing a gastrointestinal endoscopic service that sedation supports, requiring the presence of an independent trained observer to assist in the monitoring of the patient's level of consciousness and physiological status; initial 15 minutes of intra-service time; patient age 5 years or older (additional time may be reported with 36579, as appropriate) 37334, Moderate sedation; each additional 15 minutes intraservice ti (more content not included)... Normal [facility] Colonoscopy Study observatio non 04-14-2025 [place] [...] patient to (more content not included)... PROVATION [facility] EGD Study observation Liloalexey la 04-14-2025 Celine [facility] Gastrointestinal Endoscopy Patient Name: Marie Hutson Procedure Date: 04/14/2025 8:10 AM Date of : 1950 Admit Type: Outpatient Age: 75 Gender: Male Note Status: Table Inspector Override Procedure: Upper GI endoscopy Indications: Iron [...] inflammation characteri (more content not included)... PROVATION [facility] GLUCOSE, BLOOD (POC)on 04-14 Glucose [Mass/Vol] 116 mg/dL Abnormal 74 - 99 mg/dL [facility] Comment on above: Location:[facility], [address] [facility], [place], [place], [address] The Accu-Chek Inform II glucose meter has [...] Interpretation and review of laboratory results Abnormal [facility] HISTORY PHYSICALon HISTORY PHYSICAL HNO ID: [id number] Author: NIKOS RIVERA MD Service: General Surgery Author Type: Physician Type: H&P Filed: 04/14/2025 07:29 Note Text: HISTORY AND PHYSICAL Mraie Hutson : 1950 REFERRING PHYSICIAN: Barb Suggs [address] [place] [address] CHIEF COMPLAINT: Patient presents with: Consult: For [...] ulcers/ peptic ulcer disease. Marie follows with [facility] for hx of CABG x 3 (2012), CAD with 2 stents in 09/2024. On plavix. Last OV 01/2025. He denies CP, SOB, dizziness, palpitations, syncope, edema, recent hospitalizations Other medical history is significant for T2DM and osteoarthritis. Marie has undergone prior endoscopy. Last colonoscopy was 11/[address] Rivera at [facility]. Sedation:Midazolam 5 mg IV, Fentanyl 100 [...] Diagnosis Date Anemia, unspecified type Atherosclerosis of [place] arteries of the extremities with intermittent claudication [...] as uncontrolled (more content not included)... Normal [facility] No Panel Informationon 04-14 Radiology Study observation (narrative) Fuad fleming [facility] Pathology biopsy report Kojo (Tiss)on 04-14-2025 AP DISCLAIMER Normal [facility] Comment on above: Order Comment: Mariza gomes Type: BLOOD SPECIMEN Ordering Facility: [facility] Address: [address] [place] [address] Result Comment: Mary garcia Developed Test (LDT) Disclaimer: Performance characteristics of immunohistochemical, immunofluorescent, and chromogenic in-situ hybridization tests have been determined by the performing laboratory within [facility]'s [facility] Pathology and Laboratory Medicine Department ([facility], [facility], [facility], [facility], [facility], [facility], or [facility]) in a manner consistent with CLIA [...] appropriately. Performed By: #### 5 8410-2 #### [facility] CLIA [id number] [address] [place] [address] [place] CASE REPORT Normal [facility] Comment on above: Order Comment: Mariza gomes Type: BLOOD SPECIMEN Ordering Facility: [facility] Address: [address] [place] [address] Result Comment: [facility] Pathology Report Case: [id number] Authorizing Provider: Nikos iRvera MD Collected: 04/14/2025 08:28 AM Ordering Location: Ambulatory Surgery Received: 04/14/2025 12:31 PM Pathologist: Judith Clemente MD Specimens: A) - Stomach, Antrum, Biopsy, Antral bx for h/h B) - Esophagus, Distal, Biopsy, for inflammation C) - Colon, Cecum, Polyp, Cecal x 2 polyps Performed By: #### 5 8410-2 #### [facility] CLIA [id number] [address] [place] [address] [place] FINAL DIAGNOSIS Normal [facility] Comment on above: Order Comment: Mariza gomes Type: BLOOD SPECIMEN Ordering Facility: [facility] Address: [address] [place] [address] Result Comment: A. S tomach, antrum, biopsy: [...] EDT Performed By: #### 5 8410-2 #### [facility] CLIA [id number] [address] [place] [address] [place] FINAL PERFORMING LAB Normal [facility] Comment on above: Order Comment: Speci men Type: BLOOD SPECIMEN Ordering Facility: [facility] Address: [address] [place] [address] Result Comment: Diag nostic interpretation performed at: [facility], [address] [place] [address] CLIA# [id number] Gold Beater: Modesto Vargas MD Performed By: #### 5 8410-2 #### [facility] CLIA [id number] [address] [place] [address] GROSS DESCRIPTION Normal [facility] Comment on above: Order Comment: Speci men Type: BLOOD SPECIMEN Ordering Facility: [facility] Address: [address] [place] [address] Result Comment: A. S tomach, Antrum, Biopsy [...] 0.3 cm. Totally submitted in one cassette. [facility] April 14, 2025 11:07 PM Gross examination performed at [facility], [address] [place] [address] Performed By: #### 5 8410-2 #### [facility] CLIA [id number] [address] [place] [address] [place] [address] [place] [facility] Upper GI endoscopyon 025 Upper GI endoscopy [facility] Gastrointestinal Endoscopy Patient Name: Marie Hutson Procedure Date: 04/14/2025 8:10 AM Date of : 1950 Admit Type: Outpatient Age: 75 Gender: Male Note Status: Table Inspector Override Procedure: Upper GI endoscopy Indications: Iron [...] PO daily. Procedure Code(s): --- Professional --- 77369, Esophagogastroduodenosc opy, flexible, transoral; with biopsy, single or multiple G0500, Moderate sedation services provided by the same physician or other qualified health continuum of care manager performing a gastrointestinal endoscopic service that sedation supports, requiring the presence of an independent trained observer to assist in the monitoring of the p (more content not included)... Normal [facility] CNOVon 04-06-2025 CNOV Office Visit (VASSWS ) MARIE HUTSON ([id number]) 1950 M Date Time Provider Department 04/06/25 [...] AM Signed Heart , Vascular and Thoracic [place] DEPARTMENT OF VASCULAR SURGERY OUTPATIENT VISIT DATE [...] Diagnosis Date Anemia, unspecified type Atherosclerosis of [place] arteries of the extremities with intermittent claudication [...] with meals. (more content not included)... Normal [facility] PVR ANK/EASTMAN/TOE NOHEMY VAS LAB on 04-06-2025 PVR ANK/EASTMAN/TOE NOHEMY VAS LAB Non-Invasive Vascular Laboratory [facility] Lower Extremity Arterial Physiology Study Bilateral/Complete [...] disease at rest. Technologist: Evi Hernandes RVT [facility] Ordering physician: NARGIS YIN Interpreting physician: Dov Og MD, ABDELRAHMAN Final CC [employer] Medical Image : [id number] See Link below for Image Normal [facility] Electrolytes 1998 panelon Anion gap [Moles/Vol] 9 mmol/L Normal 8-15 [facility] Comment on above: Order Comment: Speci men Type: BLOOD SPECIMENOrdering Facility: [facility] Address: [address] [place] [address] Performed By: #### 2 4326-1 ####[facility]IA [id number] [place] [address] [place] Chloride [Moles/Vol] 96 mmol/L Low 98-107 [facility] Comment on above: Order Comment: Speci men Type: BLOOD SPECIMENOrdering Facility: [facility] Address: [address] [place] [address] Performed By: #### 2 4326-1 ####[facility]IA [id number] [place] [id number] [place] CO2 [Moles/Vol] 25 mmol/L Normal 22-30 [facility] Comment on above: Order Comment: Speci men Type: BLOOD SPECIMENOrdering Facility: [facility] Address: [address] [place] [address] Performed By: #### 2 4326-1 ####[facility] LABCLIA [id number] [place] [address] [place] Potassium [Moles/Vol] 4.5 mmol/L Normal 3.7-5.1 [facility] Comment on above: Order Comment: Speci men Type: BLOOD SPECIMENOrdering Facility: [facility] Address: [address] [place] [address] Performed By: #### 2 4326-1 ####[facility]CLIA [id number] [place] [address] [place] Sodium [Moles/Vol] 130 mmol/L Low 136-144 [facility] Comment on above: Order Comment: Speci men Type: BLOOD SPECIMENOrdering Facility: [facility] Address: [address] [place] [address] Performed By: #### 2 4326-1 ####[facility]IA [id number] [place] [id number] [place] CNOVon 03-18-2025 [facility] MARIE HUTSON ([id number]) 1950 M Date Time Provider Department 03/18/25 9:30 AM ELVIE MONTERROSO During your visit today, we recorded the following information about you: Pulse Respiration Blood pressure Weight 62/minute 14/minute 128/62 86.8 kg Elvie Monterroso APRN.CNP 03/18/2025 10:06 AM Signed HISTORY AND PHYSICAL Marie Hutson : 1950 REFERRING PHYSICIAN: Barb Suggs [address] [facility] [place] [address] CHIEF COMPLAINT: Patient presents with: Consult: For [...] ulcers/ peptic ulcer disease. Marie follows with [facility] for hx of CABG x 3 (2012), CAD with 2 stents in 09/2024. On plavix. Last OV 01/2025. He denies CP, SOB, dizziness, palpitations, syncope, edema, recent hospitalizations Other medical history is significant for T2DM and osteoarthritis. Marie has undergone prior endoscopy. Last colonoscopy was 11/[address] Rivera at [facility]. Sedation:Midazolam 5 mg IV, Fentanyl 100 [...] Diagnosis Date Anemia, unspecified type Atherosclerosis of [place] arteries of the extremities with intermittent claudication [...] and M (more content not included)... Normal [facility] Hemoccult Stl Ql IAon 2024 Lower GI hemoglobin IA Ql (Stl) Negative Normal Negative [facility] Comment on above: Order Comment: Speci men Type: STOOL SPECIMENOrdering Facility: [facility] Address: [address] [place] [address] Performed By: #### 2 9771-3 ####[facility]CLIA [id number] [address] STATES OF [facility] CNOVon 03-16-2025 CNOV Office Visit (INTMWS ) MARIE HUTSON ([id number]) 1950 Av Date Time Provider Department 03/16/25 10:00 AM BARB SUGGS INTMWS During your visit today, we recorded the following information about you: Pulse Respiration Blood pressure Weight 60/minute 14/minute 130/74 86.3 kg Height 1.75 m Barb Suggs, LOCKER PLANT ATTENDANT.ELEMENTARY ART TEACHER 03/16/2025 10:47 AM Signed Marie Davis Caryl [...] PCP - General Barb Suggs APRN.HAYDEN as Card Brusher (Internal Medicine) [facility] (Neurology) Blanco LADD (Cardiology) Nargis Yin MD Vascular-[facility] Gomez Schwab DPM, Podiatry-[facility] Torch Operator-Hugh Delacruz/Dr. Edward Adams Racking Machine Operator- Christian Merritt Medical/Family history review Reviewed [...] also discussed with the patient: Recording using [employer] software for draft documentation of the visit was discussed with the patient/authorized commercial representative; all questions welcomed and answered. Patient/authorized commercial representative agreed to proceed Marie is a [...] He recently had two stents placed in [place] and is currently on Plavix, which he [...] Wt 86 (more content not included)... Normal [facility] Ferritin SerPl-mCncon 2024 Ferritin [Mass/Vol] 198.0 ng/mL Normal 30.3-565.7 [facility] Comment on above: Order Comment: Speci men Type: BLOOD SPECIMEN Ordering Facility: [facility] Address: [address] [place] [address] Performed By: #### 5 8410-2 #### [facility] CLIA [id number] [address] [place] [address] [place] Folate SerPl-ncon 03-16-20 Folate [Mass/Vol] ng/mL Normal >4.7 [facility] Comment on above: Order Comment: Speci men Type: BLOOD SPECIMEN Ordering Facility: [facility] Address: [address] [place] [address] Result Comment: A re sult of > 20 ng/mL is not necessarily indicative of a pathologic or treatable condition: it reflects a limitation of the test methodology. Assay reference range: 4.8 to 24.2 ng/mL. Suitable for detection of folate deficiency. Reference: Folate III (Folate III) [package insert V 1.0 Palestinian]. [facility], [place], [place]: August 2015. Performed By: #### 5 8410-2 #### [facility] CLIA [id number] [address] [place] [address] [place] Iron and Iron binding capaci panel 03-16-2025 Iron [Mass/Vol] 44 ug/dL Normal 41-186 [facility] Comment on above: Order Comment: Speci men Type: BLOOD SPECIMEN Ordering Facility: [facility] Address: [address] [place] [address] Performed By: #### 5 8410-2 #### [facility] CLIA [id number] [address] [place] [address] [place] Iron binding capacity [Mass/Vol] 273 ug/dL Normal 232-386 [facility] Comment on above: Order Comment: Speci men Type: BLOOD SPECIMEN Ordering Facility: [facility] Address: [address] [place] [address] Performed By: #### 5 8410-2 #### [facility] CLIA [id number] [address] [place] [address] [place] Iron/TIBC [Molar ratio] 16.1 % Normal 15.0-57.0 [facility] Comment on above: Order Comment: Speci men Type: BLOOD SPECIMEN Ordering Facility: [facility] Address: [address] [place] [address] Performed By: #### 5 8410-2 #### [facility] CLIA [id number] [address] [place] [address] [place] Osmolality SerPlon Osmolality [Osmolality] 276 mosm/kg Normal 275-300 [facility] Comment on above: Order Comment: Speci men Type: BLOOD SPECIMENOrdering Facility: [facility] Address: [address] [place] [address] Performed By: #### 2 692-2 ####[facility]CLIA [id number] [address] [place] Osmolality Uron 03-16-2025 Osmolality (U) [Osmolality] 313 mosm/kg Normal 50-1200 [facility] Comment on above: Order Comment: Speci men Type: BLOOD SPECIMEN Ordering Facility: [facility] Address: [address] [place] [address] Performed By: #### 5 8410-2 #### [facility] CLIA [id number] [address] [place] [address] [place] Sodium ?Tm Ur-sCncon 025 Sodium Unsp time (U) [Moles/Vol] 40 mmol/L Normal 14-216 [facility] Comment on above: Order Comment: Speci men Type: URINE SPECIMEN Ordering Facility: [facility] Address: [address] [place] [address] Performed By: #### 3 5678-2 #### [facility] CLIA [id number] [address] [place] [address] [place] Vit B12 SerPl-mCncon 025 Cobalamin (Vitamin B12) [Mass/Vol] 555 pg/mL Normal 232-1245 [facility] Comment on above: Order Comment: Speci men Type: BLOOD SPECIMEN Ordering Facility: [facility] Address: [address] [place] [address] Performed By: #### 5 8410-2 #### [facility] CLIA [id number] [address] [place] [address] [place] [address] [place] XR HAND 3V [...] bilaterally. IMPRESSION: Bilateral hand osteoarthritis. No erosions. Oil Well Cable Tool Operator: PSCB Transcribe Date/Time: Mar 20 2025 2:18P Dictated by : DREAD CORONA MD This examination was interpreted and the report reviewed and electronically signed by: DREAD CORONA MD on Mar 20 2025 2:20PM EST [id number] Normal [facility] Basic metabolic 2000 panelon 03-15-2025 Anion gap [Moles/Vol] 12 mmol/L Normal 8-15 [facility] Comment on above: Order Comment: Speci men Type: BLOOD SPECIMEN Ordering Facility: [facility] Address: [address] [place] [address] Performed By: #### 5 8410-2 #### [facility] CLIA [id number] [address] [place] [address] [place] Calcium [Mass/Vol] 9.7 mg/dL Normal 8.5-10.2 [facility] Comment on above: Order Comment: Speci men Type: BLOOD SPECIMEN Ordering Facility: [facility] Address: [address] [place] [address] Performed By: #### 5 8410-2 #### [facility] CLIA [id number] [address] [place] [address] [place] Chloride [Moles/Vol] 93 mmol/L Low 98-107 [facility] Comment on above: Order Comment: Speci men Type: BLOOD SPECIMEN Ordering Facility: [facility] Address: [address] [place] [address] Performed By: #### 5 8410-2 #### [facility] CLIA [id number] [address] [place] [address] [place] CO2 [Moles/Vol] 21 mmol/L Low 22-30 [facility] Comment on above: Order Comment: Speci men Type: BLOOD SPECIMEN Ordering Facility: [facility] Address: [address] [place] [address] Performed By: #### 5 8410-2 #### [facility] CLIA [id number] [address] [place] [address] [place] Creatinine [Mass/Vol] 0.56 mg/dL Low 0.73-1.22 [facility] Comment on above: Order Comment: Speci men Type: BLOOD SPECIMEN Ordering Facility: [facility] Address: [address] [place] [address] Performed By: #### 5 8410-2 #### [facility] CLIA [id number] [address] [place] [address] [place] Creatinine and Glomerular filtration rate.predicted panel (S/P/Bld) 104 mL/min/1.73m??? Normal >=60 [facility] Comment on above: Order Comment: Mariza gomes Type: BLOOD SPECIMEN Ordering Facility: [facility] Address: [address] [place] [address] Result Comment: Ingrid mated Glomerular Filtration Rate [...] GFR. Performed By: #### 5 8410-2 #### [facility] CLIA [id number] [address] [place] [address] [place] Glucose [Mass/Vol] 90 mg/dL Normal 74-99 [facility] Comment on above: Order Comment: Mariza gomes Type: BLOOD SPECIMEN Ordering Facility: [facility] Address: [address] [place] [address] Result Comment: The [place] Diabetes Association (ADA) provides guidance for cutoff [...] Standards of Medical Care in Diabetes 2016, [place] Diabetes Association. Diabetes Care. 2016.39(Suppl 1). Performed By: #### 5 8410-2 #### [facility] CLIA [id number] [address] [place] [address] [place] Potassium [Moles/Vol] 4.4 mmol/L Normal 3.7-5.1 [facility] Comment on above: Order Comment: Speci men Type: BLOOD SPECIMEN Ordering Facility: [facility] Address: [address] [place] [address] Performed By: #### 5 8410-2 #### [facility] CLIA [id number] [address] [place] [address] [place] Sodium [Moles/Vol] 126 mmol/L Low 136-144 [facility] Comment on above: Order Comment: Speci men Type: BLOOD SPECIMEN Ordering Facility: [facility] Address: [address] [place] [address] Performed By: #### 5 8410-2 #### [facility] CLIA [id number] [address] [place] [address] [place] Urea nitrogen [Mass/Vol] 9 mg/dL Normal 9-24 [facility] Comment on above: Order Comment: Speci men Type: BLOOD SPECIMEN Ordering Facility: [facility] Address: [address] [place] [address] Performed By: #### 5 8410-2 #### [facility] CLIA [id number] [address] [place] [address] [place] CBC panel Auto (Bld)on 03-15 Erythrocyte distribution width (RBC) [Ratio] 11.8 % Normal 11.5-15.0 [facility] Comment on above: Order Comment: Speci men Type: BLOOD SPECIMEN Ordering Facility: [facility] Address: [address] [place] [address] Performed By: #### 5 8410-2 #### [facility] CLIA [id number] [address] [place] [address] [place] Hematocrit (Bld) [Volume fraction] 29.8 % Low 39.0-51.0 [facility] Comment on above: Order Comment: Speci men Type: BLOOD SPECIMEN Ordering Facility: [facility] Address: [address] [place] [address] Performed By: #### 5 8410-2 #### [facility] CLIA [id number] [address] [place] [address] [place] Hemoglobin (Bld) [Mass/Vol] 10.6 g/dL Low 13.0-17.0 [facility] Comment on above: Order Comment: Speci men Type: BLOOD SPECIMEN Ordering Facility: [facility] Address: [address] [place] [address] Performed By: #### 5 8410-2 #### [facility] CLIA [id number] [address] [place] [address] [place] MCH (RBC) [Entitic mass] 34.8 pg High 26.0-34.0 [facility] Comment on above: Order Comment: Speci men Type: BLOOD SPECIMEN Ordering Facility: [facility] Address: [address] [place] [address] Performed By: #### 5 8410-2 #### [facility] CLIA [id number] [address] [place] [address] [place] MCHC (RBC) [Mass/Vol] 35.6 g/dL Normal 30.5-36.0 [facility] Comment on above: Order Comment: Speci men Type: BLOOD SPECIMEN Ordering Facility: [facility] Address: [address] [place] [address] Performed By: #### 5 8410-2 #### [facility] CLIA [id number] [address] [place] [address] [place] MCV (RBC) [Entitic vol] 97.7 fL Normal 80.0-100.0 [facility] Comment on above: Order Comment: Speci men Type: BLOOD SPECIMEN Ordering Facility: [facility] Address: [address] [place] [address] Performed By: #### 5 8410-2 #### [facility] CLIA [id number] [address] [place] [address] [place] Nucleated RBC (Bld) [#/Vol] 10*3/uL Normal <0.01 [facility] Comment on above: Order Comment: Speci men Type: BLOOD SPECIMEN Ordering Facility: [facility] Address: [address] [place] [address] Performed By: #### 5 8410-2 #### [facility] CLIA [id number] [address] [place] [address] [place] Platelet mean volume (Bld) [Entitic vol] 9.1 fL Normal 9.0-12.7 [facility] Comment on above: Order Comment: Speci men Type: BLOOD SPECIMEN Ordering Facility: [facility] Address: [address] [place] [address] Performed By: #### 5 8410-2 #### [facility] CLIA [id number] [address] [place] [address] [place] Platelets (Bld) [#/Vol] 319 10*3/uL Normal 150-400 [facility] Comment on above: Order Comment: Speci men Type: BLOOD SPECIMEN Ordering Facility: [facility] Address: [address] [place] [address] Performed By: #### 5 8410-2 #### [facility] CLIA [id number] [address] [place] [address] [place] RBC (Bld) [#/Vol] 3.05 10*6/uL Low 4.20-6.00 [facility] Comment on above: Order Comment: Speci men Type: BLOOD SPECIMEN Ordering Facility: [facility] Address: [address] [place] [address] Performed By: #### 5 8410-2 #### [facility] CLIA [id number] [address] [place] [address] [place] WBC (Bld) [#/Vol] 10.98 10*3/uL Normal 3.70-11.00 [facility] Comment on above: Order Comment: Mariza gomes Type: BLOOD SPECIMEN Ordering Facility: [facility] Address: [address] [place] [address] Performed By: #### 5 8410-2 #### [facility] CLIA [id number] [address] [place] [address] [place] HbA1c (Bld)on 03-15-2025 Average glucose Estimated from glycated hemoglobin (Bld) [Mass/Vol] 103 mg/dL Normal [facility] Comment on above: Order Comment: Mariza gomes Type: BLOOD SPECIMENOrdering Facility: [facility] Address: [address] [place] [address] Result Comment: eAG: (Estimated average glucose) is a calculated value from HgbA1c and is commercial representative of the average blood glucose level in the last 2-3 month period. Performed By: #### 5 5454-3 ####[facility] [id number] [place] [address] [place] HbA1c (Bld) [Mass fraction] 5.2 % Normal 4.3-5.6 [facility] Comment on above: Order Comment: Mariza gomes Type: BLOOD SPECIMENOrdering Facility: [facility] Address: [address] [place] [address] Result Comment: Amer [place] Diabetes Association guidelines indicate that patients with HgbA1c in the range 5.7-6.4% are at increased risk for development of diabetes, and intervention by lifestyle modification may be beneficial. HgbA1c greater or equal to 6.5% is considered diagnostic of diabetes. Performed By: #### 5 5454-3 ####[facility] [id number] [place] [id number] [place] Echo Completeon 03-11-2025 Echo Complete [facility] [address] [place] [address] Echo Complete 03/11/25 1008 MR#: [id number] Acct: [id number] Name: MARIE HUTSON Rep #: [id number] : 1950 75 From: Rubio Simeon MD Attending Dr: Dr. Rubio Simeon MD Status: REG I Ordering Dr: Rubio Simeon MD Date: 03/11/25 Location: [facility] Sex: M C Admitted: Reason For Study [...] Dictated: 03/11/25 1008 Date Transcribed: 03/11/25 1210 [employer] Tool Operator: Signed Normal [facility] Echocardiogram study reportO rdered By: Rubio Simeon on 03-11-2025 Study report [facility] [address] [place] [address] Echo Complete 03/11/25 1008 MR#: [id number] Acct: [id number] Name: MARIE HUTSON Rep #:[id number] : [...] Sher Jules M.D. Performed By: Rupa Ramires, [facility] 03/11/25 1210 Date _ Rubio Simeon MD CC: Dr. Rubio Simeon MD; Dr. Sher Jules MD ~ Date Dictated: 03/11/25 1008 Date Transcribed: 03/11/25 1210 [employer] Tool Operator: Signed [facility] Work Phone: [employer] 02-23-2025 CNOV Office Visit (PODIWS ) MARIE HUTSON ([id number]) 1950 M Date Time Provider Department 02/23/25 [...] (or decreased sensation in your feet) a s3b multi sensor operator should always cut your toenails. Be Careful [...] Go to your health care provider or s3b multi sensor operator to treat these conditions. Continue to check [...] is s (more content not included)... Normal [facility] Cardiology Visit Reporton Cardiology Visit Report [facility] [address] [place] [address] OFFICE VISIT Date of Service: 02/11/25 MR#: [id number] Acct: [id number] Name: MARIE HUTSON Rep #: [id number] : 1950 Provider: Dr. Rubio Simeon MD Age/Sex: 75/M Location: [facility] Status: Signed HPI HPI History of [...] NIBP Intake Visit Reasons: 4 M FU Tire Spotter Required: No Accompanied by: Self Is patient [...] PFSH Medical History Atherosclerotic heart disease of [place] coronary artery without angina pectoris Branch retinal [...] is mil (more content not included)... 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 Follow up Appointments NONE Called patient and identified role and reason for call. Patient stated that he is doing good, and his follow ups are now with [facility]. He denies any concerns at this time. We inquired about any shortness of breath or pain, he denies. He refers taking all his medication as prescribed and denies need for refills. We also encouraged patient to reach out in case of any concern. Normal [facility] Progress Noteon 12-04-2024 Progress Note 12/04/24 Community Health Worker Patient active with: SAM Daniel Chart review completed. Follow up Appointments NONE Called patient and call was dropped, we did a second attempt and was unsuccessful. Unable to leave a voice message. Outreach scheduled Normal [facility] CNOVon 11-19-2024 CNOV Office Visit (PODIWS ) MARIE HUTSON ([id number]) 1950 M Date Time Provider Department 11/19/24 [...] (or decreased sensation in your feet) a s3b multi sensor operator should always cut your toenails. Be Careful [...] Go to your health care provider or s3b multi sensor operator to treat these conditions. Gomez Schwab 11/19/2024 [...] Objective: Patien (more content not included)... Normal [facility] CNOVon 11-13-2024 CNOV Office Visit (INTMWS ) MARIE HUTSON ([id number]) 1950 M Date Time Provider Department 11/13/24 1:20 PM SHER JULES INTMWS During your visit today, we recorded the following information about you: Pulse Respiration Blood pressure Weight 60/minute 16/minute 132/62 87 kg Sher Jules MD 11/13/2024 1:56 PM Signed This note was created using [employer]. Subjective Marie Hutson is a 74 year [...] Mixed Sleep Apnea Coronary Artery Disease Involving [place] Coronary Artery of [place] Heart Without Angina Pectoris Obesity, Class I, [...] MA - (more content not included)... Normal [facility] Progress Noteon 11-03-2024 Progress Note 11/03/24 [...] clarify? No (Patient receiving his care from [facility]) EMR reviewed. Patient on BPCI Advanced: OP Patients Qualify for Cardiac Care and Cardiac Procedures from [facility] report 10/01/2024. EMR reviewed. Patient enrolled in [facility] Cardiac 90-day BPCI Program post-hospital discharge 09/30/24 Dx: PCI with IVL, LISANDRO to Left Main->Ramus Right radial artery used. Patient has a past medical history of DM with neuropathy, HTN, HLD, family history of premature CAD, prior tobacco use (quit), ocular TIA. He had a CABG in 2012. 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 WRIGHT to LAD was patent. At that time distal RCA was stented. He also had a severely stenotic calcified distal left main and ostial ramus. 30-day BPCI outreach made spoke with patient whom reports doing well following with [facility] for his care and denies any health concerns or questions at this time. Patient agreeable to future outreaches to complete BPCI program. Normal [facility] CR - History AND Physicalon 10-20-2024 CR - History & Physical [facility] [address] [place] [address] CR - History Physical MR#: [id number] Acct: [id number] Name: MARIE HUTSON Rep #: [id number] : 1950 74 From: Curtis Newell BS, [...] Negative Advanced Directives Advanced Directives Power of Fitness Supervisor: No Living Will: No Advance Directives Information [...] Essential (primary) hypertension Atherosclerotic heart disease of [place] coronary artery without angina pectoris Diabetes mellitus, [...] For S (more content not included)... Normal [facility] Progress Noteon 10-15-2024 Progress Note 10/15/24 1321 [...] for Cardiac Care and Cardiac Procedures from [facility] report 10/01/2024. EMR reviewed. Patient enrolled in [facility] Cardiac 90-day BPCI Program post-hospital discharge 09/30/24 Dx: PCI with IVL, LISANDRO to Left Main->Ramus Right radial artery used. Patient has a past medical history of DM with neuropathy, HTN, HLD, family history of premature CAD, prior tobacco use (quit), ocular TIA. He had a CABG in 2012. 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 WRIGHT to LAD was patent. At that time distal RCA was stented. He also had a severely stenotic calcified distal left main and ostial ramus. 14-day BPCI outreach made spoke with patient introduced self and role patient reports doing well feeling good post PCI procedure denies health concerns or questions encouraged patient to reach out with any concerns. Future outreach scheduled. [facility] Carotid Duplex Ultrasoundon 10-14-2024 Carotid Duplex Ultrasound [facility] [address] [place] [address] Carotid Duplex Ultrasound 10/14/24 0951 MR#: [id number] Acct: [id number] Name: MARIE HUTSON Rep #: [id number] : 1950 74 From: Karl Wan MD Attending Dr: Dr. Rubio Simeon MD Status: REG CLI Ordering Dr: Rubio Simeon MD Date: 10/14/24 Location: [facility] Sex: M C Admitted: Reason For Study: [...] the left vertebral artery. Procedure Carotid Duplex 27622. This is a Carotid Duplex examination using [...] Date Dictated: 10/14/24 0951 Date Transcribed: 10/15/24722 [employer] Well Cable Tool Operator: Signed Normal [facility] Renal Artery Duplex Ultrasou ndon 10-14-2024 Renal [facility] [address] [place] [address] Renal Artery Duplex Ultrasound 10/14/24 0846 MR#: [id number] Acct: [id number] Name: MARIE HUTSON Rep #: [id number] : 1950 74 From: Karl Wan MD [...] Date Dictated: 10/14/24 0846 Date Transcribed: 10/15/2425 [employer] Well Cable Tool Operator: Signed Normal [facility] Cardiology Visit Reporton Cardiology Visit Report [facility] [address] [place] [address] OFFICE VISIT Date of Service: 10/12/24 MR#: [id number] Acct: [id number] Name: MARIE HUTSON Rep #: [id number] : 1950 Provider: TANIYA moise Age/Sex: 74/M Location: [facility] Status: Signed HPI HPI History of Present Illness Details: This gentleman with history of coronary artery disease status post CABG and status post drug-eluting stent to the distal RCA. He underwent coronary angiography CT scan in June 2024 that showed severely diseased distal left main disease. He was seen at [facility] with Dr. Collins for continual chest discomfort [...] Intake Visit Reasons: S/P [facility] 09/30 (SCANNED) Tire Spotter Required: No Accompanied by: Self Is patient [...] list, states nothing has changed [facility] Medical History CAD (coronary artery disease) Diabetes Dyslipidemia Hypertension Type 2 diabetes mellitus without complications Peripheral vascular disease, unspecified Essential (primary) hypertension Atherosclerotic heart disease of [place] coronary artery without angina pectoris Diabetes mellitus, [...] nighttime urinat (more content not included)... Normal [facility] Comprehensive Metabolic Prof ilon 10-12-2024 Albumin [Mass/Vol] 3.6 g/dL Normal 3.2-5.0 [facility] Comment on above: Order Comment: Low S odium Performed By: #### L 500.4050 ####[facility] [address] [place], [address] Albumin/Globulin [Mass ratio] 1.1 {ratio} Normal 0.9-2.4 [facility] Comment on above: Order Comment: Low S odium Performed By: #### L 500.4050 ####[facility] [address] [place], [address] ALK P 76 U/L Normal 45-117 [facility] Comment on above: Order Comment: Low S odium Performed By: #### L 500.4050 ####[facility] [address] [place], [address] ALT [Catalytic activity/Vol] 31 U/L Normal 16-61 [facility] Comment on above: Order Comment: Low S odium Performed By: #### L 500.4050 ####[facility] [address] [place], [address] AST [Catalytic activity/Vol] 23 U/L Normal 15-37 [facility] Comment on above: Order Comment: Low S odium Performed By: #### L 500.4050 ####[facility] [address] [place], [address] Bilirubin [Mass/Vol] 1.30 mg/dL High 0.20-1.00 [facility] Comment on above: Order Comment: Low S odium Result Comment: For patients on eltrombopag therapy, use of Dimension [place] TBIL is not recommended. Performed By: #### L 500.4050 ####[facility] [address] [place], [address] BUN/CRE 14.0 RATIO Normal 10-20 [facility] Comment on above: Order Comment: Low S odium Performed By: #### L 500.4050 ####[facility] [address] [place], [address] CA,Total 9.6 mg/dL Normal 8.5-10.1 [facility] Comment on above: Order Comment: Low S odium Performed By: #### L 500.4050 ####[facility] [address] [place], [address] Chloride [Moles/Vol] 95 mmol/L Low 98-107 [facility] Comment on above: Order Comment: Low S odium Performed By: #### L 500.4050 ####[facility] [address] [place], [address] CO2 [Moles/Vol] 29.0 mmol/L Normal 21.0-32.0 [facility] Comment on above: Order Comment: Low S odium Performed By: #### L 500.4050 ####[facility] [address] [place], [address] Creatinine [Mass/Vol] 0.72 mg/dL Normal 0.70-1.30 [facility] Comment on above: Order Comment: Low S odium Result Comment: The validity of the calculated GFR GFRAA in patients over 70 years has not been determined. Clinical correlation is essential. Performed By: #### L 500.4050 ####[facility] [address] [place], [address] EST GFR - AA 139 mL/min Normal >60 [facility] Comment on above: Order Comment: Low S odium Result Comment: Afri can [place] GFR Calc Performed By: #### L 500.4050 ####[facility] [address] [place], [address] GAP 4 Low 5-15 [facility] Comment on above: Order Comment: Low S odium Performed By: #### L 500.4050 ####[facility] [address] [place], [address] GFR/1.73 sq M.predicted among non-blacks MDRD (S/P/Bld) [Vol rate/Area] 115 mL/min/{1.73_m2} Normal >60 [facility] Comment on above: Order Comment: Low S odium Result Comment: Non- GFR Calc Performed By: #### L 500.4050 ####[facility] [address] [place], [address] Globulin (S) [Mass/Vol] 3.3 g/dL Normal 2.2-4.2 [facility] Comment on above: Order Comment: Low S odium Performed By: #### L 500.4050 ####[facility] [address] [place], [address] Glucose [Mass/Vol] 144 mg/dL High 74-106 [facility] Comment on above: Order Comment: Low S odium Result Comment: Fast ing Glucose result greater than or equal to 126 mg/dL suggests DIABETES MELLITUS per A.D.A. criteria. Performed By: #### L 500.4050 ####[facility] [address] [place], [address] Potassium [Moles/Vol] 4.7 mmol/L Normal 3.5-5.1 [facility] Comment on above: Order Comment: Low S odium Performed By: #### L 500.4050 ####[facility] [address] [place], [address] Sodium [Moles/Vol] 128 mmol/L Low 136-145 [facility] Comment on above: Order Comment: Low S odium Performed By: #### L 500.4050 ####[facility] [address] [place], [address] T PROT 6.9 g/dL Normal 6.4-8.2 [facility] Comment on above: Order Comment: Low S odium Performed By: #### L 500.4050 ####[facility] [address] [place], [address] Urea nitrogen [Mass/Vol] 10 mg/dL Normal 7-18 [facility] Comment on above: Order Comment: Low S odium Performed By: #### L 500.4050 ####[facility] [address] [place], [address] Basic metabolic 2000 panelon 10-06-2024 Anion gap [Moles/Vol] 10 mmol/L Normal 8-15 [facility] Comment on above: Order Comment: Speci men Type: BLOOD SPECIMENOrdering Facility: [facility] Address: [address] [place] [address] Performed By: #### 2 132-9, 70878-0, 2885-2, 2143-6 ####[facility] LABCLIA [id number] [facility] [place]60[place] [address] [place] Calcium [Mass/Vol] 9.4 mg/dL Normal 8.5-10.2 [facility] Comment on above: Order Comment: Speci men Type: BLOOD SPECIMENOrdering Facility: [facility] Address: [address] [place] [address] Performed By: #### 2 132-9, 68594-4, 288-2, 2143-03 ####[facility] LABCLIA [id number] [place] [address] [place] Chloride [Moles/Vol] 94 mmol/L Low 98-107 [facility] Comment on above: Order Comment: Speci men Type: BLOOD SPECIMENOrdering Facility: [facility] Address: [address] [place] [address] Performed By: #### 2 132-9, 42008-4, 2884-2, 2143-03 ####[facility] LABCLIA [id number] [place] [address] [place] CO2 [Moles/Vol] 27 mmol/L Normal 22-30 [facility] Comment on above: Order Comment: Speci men Type: BLOOD SPECIMENOrdering Facility: [facility] Address: [address] [place] [address] Performed By: #### 2 132-9, 42688-7, 2884-2, 2143-03 ####[facility] LABCLIA [id number] [place] [id number] [place] Creatinine [Mass/Vol] 0.61 mg/dL Low 0.73-1.22 [facility] Comment on above: Order Comment: Speci men Type: BLOOD SPECIMENOrdering Facility: [facility] Address: [address] [place] [address] Performed By: #### 2 132-9, 33484-2, 288-2, 2143-03 ####[facility] LABCLIA [id number] [address] [address] [place] Creatinine and Glomerular filtration rate.predicted panel (S/P/Bld) 102 mL/min/1.73m??? Normal >=60 [facility] Comment on above: Order Comment: Mariza gomes Type: BLOOD SPECIMENOrdering Facility: [facility] Address: [address] [place] [address] Result Comment: Ingrid mated Glomerular Filtration Rate [...] actual GFR. Performed By: #### 2 132-9, 35657-4, 5-2, 2143-03 ####[facility] LABCLIA [id number] [place] [address] [place] Glucose [Mass/Vol] 83 mg/dL Normal 74-99 [facility] Comment on above: Order Comment: Mariza gomes Type: BLOOD SPECIMENOrdering Facility: [facility] Address: [address] [place] [address] Result Comment: The [place] Diabetes Association (ADA) provides guidance for cutoff [...] Standards of Medical Care in Diabetes 2016, [place] [employer]. Diabetes Care. 2016.39(Suppl 1). Performed By: #### 2 132-9, 83207-9, 2885-2, 6 ####[facility] LABCLIA [id number] [address] [address] [place] Potassium [Moles/Vol] 5.3 mmol/L High 3.7-5.1 [facility] Comment on above: Order Comment: Speci men Type: BLOOD SPECIMENOrdering Facility: [facility] Address: [address] [place] [address] Performed By: #### 2 132-9, 55814-3, 2885-2, 3-6 ####[facility] LABCLIA [id number] [place] [address] [place] Sodium [Moles/Vol] 131 mmol/L Low 136-144 [facility] Comment on above: Order Comment: Speci men Type: BLOOD SPECIMENOrdering Facility: [facility] Address: [address] [place] [address] Performed By: #### 2 132-9, 34262-2, 2885-2, 2142-6 ####[facility] LABCLIA [id number] [place] [address] [place] Urea nitrogen [Mass/Vol] 7 mg/dL Low 9-24 [facility] Comment on above: Order Comment: Speci men Type: BLOOD SPECIMENOrdering Facility: [facility] Address: [address] [place] [address] Performed By: #### 2 132-9, 37927-5, 2885-2, 6 ####[facility] LABCLIA [id number] [place] [id number] [place] CBC panel Auto (Bld)on 10-06 Erythrocyte distribution width (RBC) [Ratio] 11.5 % Normal 11.5-15.0 [facility] Comment on above: Order Comment: Speci men Type: BLOOD SPECIMENOrdering Facility: [facility] Address: [address] [place] [address] Performed By: #### 5 8410-2 ####[facility] LABCLIA [id number] [place] [address] [place] Hematocrit (Bld) [Volume fraction] 30.4 % Low 39.0-51.0 [facility] Comment on above: Order Comment: Speci men Type: BLOOD SPECIMENOrdering Facility: [facility] Address: [address] [place] [address] Performed By: #### 5 8410-2 ####[facility] LABIA [id number] [place] [address] [place] Hemoglobin (Bld) [Mass/Vol] 10.7 g/dL Low 13.0-17.0 [facility] Comment on above: Order Comment: Speci men Type: BLOOD SPECIMENOrdering Facility: [facility] Address: [address] [place] [address] Performed By: #### 5 8410-2 ####[facility] LABIA [id number] [place] [address] [place] MCH (RBC) [Entitic mass] 34.9 pg High 26.0-34.0 [facility] Comment on above: Order Comment: Speci men Type: BLOOD SPECIMENOrdering Facility: [facility] Address: [address] [place] [address] Performed By: #### 5 8410-2 ####[facility] LABIA [id number] [place] [address] [place] MCHC (RBC) [Mass/Vol] 35.2 g/dL Normal 30.5-36.0 [facility] Comment on above: Order Comment: Speci men Type: BLOOD SPECIMENOrdering Facility: [facility] Address: [address] [place] [address] Performed By: #### 5 8410-2 ####[facility] LABIA [id number] [place] [address] [place] MCV (RBC) [Entitic vol] 99.0 fL Normal 80.0-100.0 [facility] Comment on above: Order Comment: Speci men Type: BLOOD SPECIMENOrdering Facility: [facility] Address: [address] [place] [address] Performed By: #### 5 8410-2 ####[facility] LABCLIA [id number] [place] [address] [place] Nucleated RBC (Bld) [#/Vol] 10*3/uL Normal <0.01 [facility] Comment on above: Order Comment: Speci men Type: BLOOD SPECIMENOrdering Facility: [facility] Address: [address] [place] [address] Performed By: #### 5 8410-2 ####[facility] LABIA [id number] [place] [address] [place] Platelet mean volume (Bld) [Entitic vol] 9.5 fL Normal 9.0-12.7 [facility] Comment on above: Order Comment: Speci men Type: BLOOD SPECIMENOrdering Facility: [facility] Address: [address] [place] [address] Performed By: #### 5 8410-2 ####[facility] LABIA [id number] [place] [address] [place] Platelets (Bld) [#/Vol] 236 10*3/uL Normal 150-400 [facility] Comment on above: Order Comment: Speci men Type: BLOOD SPECIMENOrdering Facility: [facility] Address: [address] [place] [address] Performed By: #### 5 8410-2 ####[facility] LABIA [id number] [place] [address] [place] RBC (Bld) [#/Vol] 3.07 10*6/uL Low 4.20-6.00 [facility] Comment on above: Order Comment: Speci men Type: BLOOD SPECIMENOrdering Facility: [facility] Address: [address] [place] [address] Performed By: #### 5 8410-2 ####[facility] LABIA [id number] [place] [address] [place] WBC (Bld) [#/Vol] 5.07 10*3/uL Normal 3.70-11.00 [facility] Comment on above: Order Comment: Speci men Type: BLOOD SPECIMENOrdering Facility: [facility] Address: [address] [place] [address] Performed By: #### 5 8410-2 ####[facility] LABCLIA [id number] [place] [address] [place] Cortis SerPl-mCncon 10-06-20 Cortisol [Mass/Vol] 10.3 ug/dL Normal 4.8-19.5 [facility] Comment on above: Order Comment: Speci men Type: BLOOD SPECIMENOrdering Facility: [facility] Address: [address] [place] [address] Result Comment: Prov ided reference range is from 6-10 AM sample collection time. Cortisol Reference Range: 6-10 AM = 4.8-19.5 ug/dL, 4-8 PM = 2.5-11.9 ug/dL Performed By: #### 2 132-9, 18394-4, 2885-2, 2143-6 ####[facility] LABCLIA [id number] [place] [address] [place] Osmolality SerPlon Osmolality [Osmolality] 268 mosm/kg Low 275-300 [facility] Comment on above: Order Comment: Speci men Type: BLOOD SPECIMEN [facility] Address: [address] [place] [address] Performed By: #### 5 8410-2 #### [facility] LAB CLIA [id number] [address] [place] [address] [place] Osmolality Uron 10-06-2024 Osmolality (U) [Osmolality] 161 mosm/kg Normal 50-1200 [facility] Comment on above: Order Comment: Speci men Type: URINE SPECIMENOrdering Facility: [facility] Address: [address] [place] [address] Performed By: #### 2 695-5 ####[facility] LABCLIA [id number] [place] [address] [place] PROTEIN ELECTROPHORESIS SERU M (P)on 10-06-2024 Albumin [Mass/Vol] 3.78 g/dL Normal 3.43-5.41 [facility] Comment on above: Order Comment: Speci men Type: BLOOD SPECIMENOrdering Facility: [facility] Address: [address] [place] [address] Performed By: #### L [id number] ####[facility] LABCLIA [id number] [place] [address] [place] Alpha 1 globulin Elph [Mass/Vol] 0.28 g/dL Normal 0.18-0.43 [facility] Comment on above: Order Comment: Speci men Type: BLOOD SPECIMENOrdering Facility: [facility] Address: [address] [place] [address] Performed By: #### L [id number] ####[facility] LABCLIA [id number] [place] [address] [place] Alpha 2 globulin Elph [Mass/Vol] 0.58 g/dL Normal 0.42-0.98 [facility] Comment on above: Order Comment: Speci men Type: BLOOD SPECIMENOrdering Facility: [facility] Address: [address] [place] [address] Performed By: #### L [id number] ####[facility] LABCLIA [id number] [place] [address] [place] Beta globulin Elph [Mass/Vol] 0.61 g/dL Normal 0.61-1.17 [facility] Comment on above: Order Comment: Speci men Type: BLOOD SPECIMENOrdering Facility: [facility] Address: [address] [place] [address] Performed By: #### L [id number] ####[facility] LABCLIA [id number] [place] [address] [place] Gamma globulin Elph [Mass/Vol] 0.54 g/dL Normal 0.53-1.51 [facility] Comment on above: Order Comment: Speci men Type: BLOOD SPECIMENOrdering Facility: [facility] Address: [address] [place] [address] Performed By: #### L [id number] ####[facility] LABIA [id number] [place] [address] [place] M-PROTEIN LOCATION Normal [facility] Comment on above: Order Comment: Speci men Type: BLOOD SPECIMENOrdering Facility: [facility] Address: [address] [place] [address] Result Comment: Not Applicable. Performed By: #### L [id number] ####[facility] LABIA [id number] [place] [address] [place] Protein Fractions [Interp] No definitive M protein is identified on protein electrophoresis. Normal No definitive M protein is identified on protein electrophores is. [facility] Comment on above: Order Comment: Speci men Type: BLOOD SPECIMENOrdering Facility: [facility] Address: [address] [place] [address] Performed By: #### L [id number] ####[facility] LABIA [id number] [place] [address] [place] Protein.monoclonal Elph [Mass/Vol] 0.00 g/dL Normal <=0.00 [facility] Comment on above: Order Comment: Speci men Type: BLOOD SPECIMENOrdering Facility: [facility] Address: [address] [place] [address] Performed By: #### L [id number] ####[facility] LABCLIA [id number] [place] [address] [place] SPE STAFF REVIEW Reviewed by Chante Ag MD [facility] Comment on above: Order Comment: Speci men Type: BLOOD SPECIMENOrdering Facility: [facility] Address: [address] [place], [place] [address] Performed By: #### L [id number] ####[facility] LABCLIA [id number] [address] [address] [place] Prot [facility] 10-06-2024 Protein [Mass/Vol] 5.8 g/dL Low 6.3-8.0 [facility] Comment on above: Order Comment: Speci men Type: BLOOD SPECIMENOrdering Facility: [facility] Address: [address] [place] [address] Performed By: #### 2 132-9, 58691-3, 1375-2, 2142-6 ####[facility] LABIA [id number] [place] [id number] [place] Sodium ?Tm Ur-sCncon 024 Sodium Unsp time (U) [Moles/Vol] 28 mmol/L Normal 14-216 [facility] Comment on above: Order Comment: Speci men Type: URINE SPECIMENOrdering Facility: [facility] Address: [address] [place] [address] Performed By: #### 3 5678-2 ####[facility] LABIA [id number] [address] [address] [place] Vit B12 SerPl-ncon 024 Cobalamin (Vitamin B12) [Mass/Vol] 509 pg/mL Normal 232-1245 [facility] Comment on above: Order Comment: Speci men Type: BLOOD SPECIMENOrdering Facility: [facility] Address: [address] [place] [address] Performed By: #### 2 132-9, 98234-0, 2885-2, 2142-6 ####[facility] LABIA [id number] [place] [id number] [place] ECG 12-LEADon 10-01-2024 ECG 12-LEAD IMPRESSION: Sinus bradycardia Prolonged SC interval Borderline ST elevation, anterior leads Electronically Signed On 10-01-2024 15:11:59 EST by Basil Cordoba [facility] Anesthesia Noteon 09-30-2024 Anesthesia Note Sedation Plan [...] proceed to administer sedation as planned. Normal [facility] Cardiac catheterization stud yon 09-30-2024 History: A [...] -PCI of the ramus intermedius: A 6 Albanian EBU 3.5 guide catheter was used, with [...] modification. Follow up with Dr. Simeon in [place] Referral to cardiac rehab Coronary Findings Diagnostic [...] sec. Supplies Used: CATH NC TREK DRE 3.72R62BF Angioplasty (Also treats lesions: Dist LM): Angioplasty using a standard balloon was performed following stent deployment. Balloon inserted and unable to cross lesion. Balloon was not inflated. Supplies Used: CATH NC TREK DRE 3.47R85ZK Angioplasty (Also treats lesions: Dist LM): Angioplasty using a standard balloon was performed prior to stent deployment. Balloon inserted, inflated, placed across lesion and removed. Balloon inflated using single inflation technique. Balloon 1: Inflation#1: Pressure = 12 thony; Duration = 10 sec. Supplies Used: CATH NC TREK DRE 2.04C73OY Intravascular Lithotripsy (Also treats lesions: Dist LM): IVL cycles: 60 Supplies Used: CATH SHOCKWAVE C2+ IVL 3.5X12 Stent (Also treats lesions: Dist LM): Type of stent: drug-eluting. The stent used was a STENT COR SKYPOINT 3.14T48UY. Actions taken: stent inserted, stent placed across [...] inflated. Supplies Used: CATH NC TREK DRE 3.11L17WV Angioplasty: Angioplasty using a standard balloon was performed prior to stent deployment. Balloon inserted, unable to (more content not included)... CV CPACS HEMO [facility] - Chemistry and C hemistry - challengeon 09-30-2024 Potassium [Moles/Vol] 4.2 mmol/L 3.5 - 5.1 mmol/L [facility] Comment on above: Plasma potassium matt ues may be up to 0.5 mmol/L lower than serum values. No Panel Informationon 09-30 Interpretation and review of laboratory results Abnormal [facility] Ensequence POCT ACT 264 High [facility] Ensequence POCT ACT 362 High [facility] Performed by: [facility], [address] [place] [address] CLIA ID: [id number] [facility] POTASSIUMon 09-30-2024 Potassium [Moles/Vol] 4.2 mmol/L Normal 3.5-5.1 [facility] Comment on above: Result Comment: [facility] potassium values may be up to 0.5 mmol/L lower than serum values. Performed By: #### L [id number] #### Public Health Administrator: MYCHAL HELLER ([phone]) [facility] ([facility]) [address] [address] Potassium [Moles/Vol]on Interpretation and review of laboratory results Normal [facility] 36on 09-29-2024 36 Prep for proc completed. Normal [facility] Basic Metabolic Profile (BMP )on 09-28-2024 BUN/CRE 21.4 RATIO High 10-20 [facility] Comment on above: Performed By: #### L 300.3900, L100.0500, L500.2500 ####[facility] [address] [place], [address] CA,Total 9.3 mg/dL Normal 8.5-10.1 [facility] Comment on above: Performed By: #### L 300.3900, L100.0500, L500.2500 ####[facility] [address] [place], [address] Chloride [Moles/Vol] 86 mmol/L Low 98-107 [facility] Comment on above: Performed By: #### L 300.3900, L100.0500, L500.2500 ####[facility] [address] [place], [address] CO2 [Moles/Vol] 27.0 mmol/L Normal 21.0-32.0 [facility] Comment on above: Performed By: #### L 300.3900, L100.0500, L500.2500 ####[facility] [address] [place], [address] Creatinine [Mass/Vol] 0.70 mg/dL Normal 0.70-1.30 [facility] Comment on above: Result Comment: The validity of the calculated GFR GFRAA in patients over 70 years has not been determined. Clinical correlation is essential. Performed By: #### L 300.3900, L100.0500, L500.2500 ####[facility] [address] [place], [address] EST GFR - AA 142 mL/min Normal >60 [facility] Comment on above: Result Comment: Afri can [place] GFR Calc Performed By: #### L 300.3900, L100.0500, L500.2500 ####[facility] [address] [place], [address] GAP 7 Normal 5-15 [facility] Comment on above: Performed By: #### L 300.3900, L100.0500, L500.2500 ####[facility] [address] [place], [address] GFR/1.73 sq M.predicted among non-blacks MDRD (S/P/Bld) [Vol rate/Area] 118 mL/min/{1.73_m2} Normal >60 [facility] Comment on above: Result Comment: Non- GFR Calc Performed By: #### L 300.3900, L100.0500, L500.2500 ####[facility] [address] [place], [address] Glucose [Mass/Vol] 109 mg/dL High 74-106 [facility] Comment on above: Result Comment: Fast ing Glucose result from 100 to 125 mg/dL suggests IMPAIRED HOMEOSTASIS per A.D.A. criteria. Performed By: #### L 300.3900, L100.0500, L500.2500 ####[facility] [address] [place], [address] Potassium [Moles/Vol] 4.8 mmol/L Normal 3.5-5.1 [facility] Comment on above: Performed By: #### L 300.3900, L100.0500, L500.2500 ####[facility] [address] [place], [address] Sodium [Moles/Vol] 120 mmol/L Low 136-145 [facility] Comment on above: Performed By: #### L 300.3900, L100.0500, L500.2500 ####[facility] [address] [place], [address] Urea nitrogen [Mass/Vol] 15 mg/dL Normal 7-18 [facility] Comment on above: Performed By: #### L 300.3900, L100.0500, L500.2500 ####[facility] [address] [place], [address] CBC-Complete Blood Cnt No Di ffon 09-28-2024 Erythrocyte distribution width (RBC) [Ratio] 11.5 % Low 11.6-14.6 [facility] Comment on above: Performed By: #### L 300.3900, L100.0500, L500.2500 #### [facility] Laboratory [address] [place], [address] Hematocrit (Bld) [Volume fraction] 33.4 % Low 40-54 [facility] Comment on above: Performed By: #### L 300.3900, L100.0500, L500.2500 #### [facility] [address] [place], [address] Hemoglobin (Bld) [Mass/Vol] 12.0 g/dL Low 13.0-16.5 [facility] Comment on above: Performed By: #### L 300.3900, L100.0500, L500.2500 #### [facility] Laboratory [address] [place], [address] MCH (RBC) [Entitic mass] 33.9 pg High 27.0-32.0 [facility] Comment on above: Performed By: #### L 300.3900, L100.0500, L500.2500 #### [facility] Laboratory [address] [place], [address] MCHC (RBC) [Mass/Vol] 35.9 g/dL Normal 32-36 [facility] Comment on above: Performed By: #### L 300.3900, L100.0500, L500.2500 #### [facility] Laboratory [address] [place], [address] MCV (RBC) [Entitic vol] 94.4 fL High 80-94 [facility] Comment on above: Performed By: #### L 300.3900, L100.0500, L500.2500 #### [facility] Laboratory [address] [place], [address] Platelet mean volume (Bld) [Entitic vol] 9.4 fL Normal 6.2-12.0 [facility] Comment on above: Performed By: #### L 300.3900, L100.0500, L500.2500 #### [facility] Laboratory [address] [place], [address] Platelets (Bld) [#/Vol] 216 10*3/uL Normal 150-450 [facility] Comment on above: Performed By: #### L 300.3900, L100.0500, L500.2500 #### [facility] Laboratory [address] [place], [address] RBC (Bld) [#/Vol] 3.54 10*6/uL Low 4.6-6.2 [facility] Comment on above: Performed By: #### L 300.3900, L100.0500, L500.2500 #### [facility] Laboratory [address] [place], [address] RDW SD 39.6 fl Normal 35.1-43.9 [facility] Comment on above: Performed By: #### L 300.3900, L100.0500, L500.2500 #### [facility] Laboratory [address] [place], [address] WBC (Bld) [#/Vol] 6.6 10*3/uL Normal 4.4-11.0 [facility] Comment on above: Performed By: #### L 300.3900, L100.0500, L500.2500 #### [facility] Laboratory [address] [place], [address] Prothrombin Time w/INRon INR Coag (PPP) [Relative time] 1.0 {INR} Normal [facility] Comment on above: Performed By: #### L 300.3900, L100.0500, L500.2500 ####[facility] [address] [place], [address] PT Coag (PPP) [Time] 13.2 s Normal 11.7-14.9 [facility] Comment on above: Performed By: #### L 300.3900, L100.0500, L500.2500 ####[facility] [address] [place], [address] 36on 09-17-2024 36 CATH scheduled Normal 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 Pt verbalized understanding. Normal [facility] 36 No auth needed for L HC w/Grafts CPT 06003 per Traditional Medicare and Med[employer] [place] Medicare Supplement Guidelines. Normal [facility] No Panel Informationon 09-16 Marked sinus Bradycardia -First degree A-V block Early transition Janina = 249 BORDERLINE RHYTHM [facility] Office Visiton 09-16-2024 Follow-up visit [id number] Aditya Hutson 1950 M Date Provider Department Center 09/16/2024 SERGEI OSULLIVAN [facility] DRE [facility] [address] Family History Problem Relation Age of Onset No Known Problems Mother Heart attack Father Family Status - Relation Status Age at Mother Father Level of Service:30077 SC OFFICE/OUTPATIENT NEW MODERATE MDM 45 MINUTES Reason for Visit and Comments: New Patient [542] Normal [facility] Progress Noteon 09-16-2024 Progress Note [facility] Cardiovascular Medicine [facility] [address] [facility] [address] Dept: [phone] Dept Loc: [phone] DATE of SERVICE: 09/16/24 TIME of SERVICE: [...] BUN, CREATINI (more content not included)... 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 Patient is not taking hydrochlorothiazide 25 mg daily and Atorvastatin 40 mg daily (patient was previously on 80 mg). Suellen Donovan RN Allergies As of Date: 09/15/2024 (No Known Allergies) Date Reviewed: 09/11/2024 Reviewed by: Martha Ram LPN - Fully Assessed Reason for Visit: Medication Update [0215] Order(s):atorvastatin (LIPITOR) 40 mg tabletTake 1 tablet [...] disease involvin (more content not included)... Normal [facility]y 09-14-2024 [facility] Telephone (INTMWS) MARIE HUTSON ([id number]) 1950 M Date Time Provider Department 09/14/24 [...] to receive the providers message. Also sent Getuihart Suellen Case RN 09/15/2024 10:42 AM Signed [...] [G47.30] 09/15/20 (more content not included)... Normal [facility] Cardiology Visit Reporton Cardiology Visit Report [facility] [address] [place] [address] OFFICE VISIT Date of Service: 09/14/24 MR#: [id number] Acct: [id number] Name: MARIE HUTSON Rep #: [id number] 1 : 1950 Provider: Dr. 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 coronary artery without angina pectoris Diabetes mellitus, [...] left atrium (more content not included)... Normal [facility] ALBUMIN/CREATININE RATIO, UR INEon 09-11-2024 Albumin DL <= 20 mg/L (U) [Mass/Vol] 15.0 mg/L Normal [facility] Comment on above: Order Comment: Speci men Type: URINE SPECIMENOrdering Facility: [facility] Address: [address] [place] [address] Performed By: #### U ACR ####[facility] LABCLIA [id number] [place] [address] [place] Albumin/Creatinine (U) [Mass ratio] 42 mg/g High <30 [facility] Comment on above: Order Comment: Speci men Type: URINE SPECIMENOrdering Facility: [facility] Address: [address] [place] [address] Result Comment: Adul t Male and Female Nephrotic Criteria: <30 mg/g is considered normal to mildly increased 30-300 mg/g is considered moderately increased >300 mg/g is considered severely increased KDIGO. (2013). KDIGO 2012 Clinical Practice Guideline for the Evaluation and Management of Chronic Kidney Disease. Official Journal of the International Society of Nephrology, 3(1), 1-150. Performed By: #### U ACR ####[facility] LABCLIA [id number] [place] [address] [place] Creatinine (U) [Mass/Vol] 35.7 mg/dL Normal 20.0-300.0 [facility] Comment on above: Order Comment: Speci men Type: URINE SPECIMENOrdering Facility: [facility] Address: [address] [place] [address] Performed By: #### U ACR ####[facility] LABIA [id number] [place] [address] [place] CBC panel Auto (Bld)on 09-11 Erythrocyte distribution width (RBC) [Ratio] 11.9 % Normal 11.5-15.0 [facility] Comment on above: Order Comment: Speci men Type: BLOOD SPECIMENOrdering Facility: [facility] Address: [address] [place] [address] Performed By: #### 5 8410-2 ####[facility] [id number] [place] [address] [place] Hematocrit (Bld) [Volume fraction] 34.4 % Low 39.0-51.0 [facility] Comment on above: Order Comment: Speci men Type: BLOOD SPECIMENOrdering Facility: [facility] Address: [address] [place] [address] Performed By: #### 5 8410-2 ####[facility] LABIA [id number] [place] [address] [place] Hemoglobin (Bld) [Mass/Vol] 12.5 g/dL Low 13.0-17.0 [facility] Comment on above: Order Comment: Speci men Type: BLOOD SPECIMENOrdering Facility: [facility] Address: [address] [place] [address] Performed By: #### 5 8410-2 ####[facility] LABIA [id number] [place] [address] [place] MCH (RBC) [Entitic mass] 36.3 pg High 26.0-34.0 [facility] Comment on above: Order Comment: Speci men Type: BLOOD SPECIMENOrdering Facility: [facility] Address: [address] [place] [address] Performed By: #### 5 8410-2 ####[facility] LABCLIA [id number] [place] [address] [place] MCHC (RBC) [Mass/Vol] 36.3 g/dL High 30.5-36.0 [facility] Comment on above: Order Comment: Speci men Type: BLOOD SPECIMENOrdering Facility: [facility] Address: [address] [place] [address] Performed By: #### 5 8410-2 ####[facility] LABIA [id number] [place] [address] [place] MCV (RBC) [Entitic vol] 100.0 fL Normal 80.0-100.0 [facility] Comment on above: Order Comment: Speci men Type: BLOOD SPECIMENOrdering Facility: [facility] Address: [address] [place] [address] Performed By: #### 5 8410-2 ####[facility] LABIA [id number] [place] [address] [place] Nucleated RBC (Bld) [#/Vol] 10*3/uL Normal <0.01 [facility] Comment on above: Order Comment: Speci men Type: BLOOD SPECIMENOrdering Facility: [facility] Address: [address] [place] [address] Performed By: #### 5 8410-2 ####[facility] LABIA [id number] [place] [address] [place] Platelet mean volume (Bld) [Entitic vol] 9.6 fL Normal 9.0-12.7 [facility] Comment on above: Order Comment: Speci men Type: BLOOD SPECIMENOrdering Facility: [facility] Address: [address] [place] [address] Performed By: #### 5 8410-2 ####[facility] LABIA [id number] [place] [address] [place] Platelets (Bld) [#/Vol] 219 10*3/uL Normal 150-400 [facility] Comment on above: Order Comment: Speci men Type: BLOOD SPECIMENOrdering Facility: [facility] Address: [address] [place] [address] Performed By: #### 5 8410-2 ####[facility] LABIA [id number] [place] [address] [place] RBC (Bld) [#/Vol] 3.44 10*6/uL Low 4.20-6.00 [facility] Comment on above: Order Comment: Speci men Type: BLOOD SPECIMENOrdering Facility: [facility] Address: [address] [place] [address] Performed By: #### 5 8410-2 ####[facility] LABIA [id number] [place] [address] [place] WBC (Bld) [#/Vol] 5.93 10*3/uL Normal 3.70-11.00 [facility] Comment on above: Order Comment: Speci men Type: BLOOD SPECIMENOrdering Facility: [facility] Address: [address] [place] [address] Performed By: #### 5 8410-2 ####[facility] LABIA [id number] [address] [place] CNOVon 09-11-2024 CNOV Office Visit (INTMWS ) MARIE HUTSON ([id number]) 1950 M Date Time Provider Department 09/11/24 11:00 AM SHER JULES INTAvWS During your visit today, we recorded the following information about you: Temperature Pulse Blood pressure Weight 97.2 degrees 46/minute 149/68 87.9 kg Height 1.778 m Sher Jules MD 09/11/2024 12:11 PM Signed This note was created using Shopogoliqriter. Subjective Patient presents with: 6 Month Exam [...] Mixed Sleep Apnea Coronary Artery Disease Involving [place] Coronary Artery of [place] Heart Without Angina Pectoris Obesity, Class I, [...] Plan ASSESSMENT/PLAN: 1. Coronary artery disease involving [place] coronary artery of [place] heart without angina pectoris - ICD9: 414.01, ICD10: I25.10 (primary diagnosis) Stable. 2. Stented coronary artery - ICD9: V45.82, ICD10: Z95.5 Colonoscopy deferred till January 2025. 3. 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 - COMPLETE B (more content not included)... Normal [facility] Comprehensive metabolic 2000 panelon 09-11-2024 Albumin [Mass/Vol] 4.2 g/dL Normal 3.9-4.9 [facility] Comment on above: Order Comment: Speci men Type: BLOOD SPECIMENOrdering Facility: [facility] Address: [address] [place] [address] Performed By: #### 2 4323-8, LIPNF ####[facility] LABCLIA [id number] [place] [address] [place] ALP [Catalytic activity/Vol] 91 U/L Normal 38-113 [facility] Comment on above: Order Comment: Speci men Type: BLOOD SPECIMENOrdering Facility: [facility] Address: [address] [place] [address] Performed By: #### 2 4323-8, LIPNF ####[facility] LABCLIA [id number] [place] [address] [place] ALT [Catalytic activity/Vol] 18 U/L Normal 10-54 [facility] Comment on above: Order Comment: Speci men Type: BLOOD SPECIMENOrdering Facility: [facility] Address: [address] [place] [address] Performed By: #### 2 4323-8, LIPNF ####[facility] LABCLIA [id number] [place] [address] [place] Anion gap [Moles/Vol] 8 mmol/L Normal 8-15 [facility] Comment on above: Order Comment: Speci men Type: BLOOD SPECIMENOrdering Facility: [facility] Address: [address] [place] [address] Performed By: #### 2 4323-8, LIPNF ####[facility] LABCLIA [id number] [place] [address] [place] AST [Catalytic activity/Vol] 27 U/L Normal 14-40 [facility] Comment on above: Order Comment: Speci men Type: BLOOD SPECIMENOrdering Facility: [facility] Address: [address] [place] [address] Performed By: #### 2 4323-8, LIPNF ####[facility] LABCLIA [id number] [place] [address] [place] Bilirubin [Mass/Vol] 1.0 mg/dL Normal 0.2-1.3 [facility] Comment on above: Order Comment: Speci men Type: BLOOD SPECIMENOrdering Facility: [facility] Address: [address] [place] [address] Performed By: #### 2 4323-8, LIPNF ####[facility] LABCLIA [id number] [place] [address] [place] Calcium [Mass/Vol] 9.6 mg/dL Normal 8.5-10.2 [facility] Comment on above: Order Comment: Speci men Type: BLOOD SPECIMENOrdering Facility: [facility] Address: [address] [place] [address] Performed By: #### 2 4323-8, LIPNF ####[facility] LABCLIA [id number] [place] [address] [place] Chloride [Moles/Vol] 91 mmol/L Low 98-107 [facility] Comment on above: Order Comment: Speci men Type: BLOOD SPECIMENOrdering Facility: [facility] Address: [address] [place], [place] [address] Performed By: #### 2 4323-8, LIPNF ####[facility] LABCLIA [id number] [place] [address] [place] CO2 [Moles/Vol] 26 mmol/L Normal 22-30 [facility] Comment on above: Order Comment: Speci men Type: BLOOD SPECIMENOrdering Facility: [facility] Address: [address] [place] [address] Performed By: #### 2 4323-8, LIPNF ####[facility] LABCLIA [id number] [place] [address] [place] Creatinine [Mass/Vol] 0.59 mg/dL Low 0.73-1.22 [facility] Comment on above: Order Comment: Speci men Type: BLOOD SPECIMENOrdering Facility: [facility] Address: [address] [place] [address] Performed By: #### 2 4323-8, LIPNF ####[facility] LABCLIA [id number] [place] [address] [place] Creatinine and Glomerular filtration rate.predicted panel (S/P/Bld) 103 mL/min/1.73m??? Normal >=60 [facility] Comment on above: Order Comment: Speci men Type: BLOOD SPECIMENOrdering Facility: [facility] Address: [address] [place] [address] Result Comment: Ingrid mated Glomerular Filtration Rate [...] GFR. Performed By: #### 2 4323-8, LIPNF ####[facility] LABCLIA [id number] [place] [address] [place] Glucose [Mass/Vol] 106 mg/dL High 74-99 [facility] Comment on above: Order Comment: Speci men Type: BLOOD SPECIMENOrdering Facility: [facility] Address: [address] [place] [address] Result Comment: The [place] Diabetes Association (ADA) provides guidance for cutoff [...] Standards of Medical Care in Diabetes 2016, [place] [employer] Association. Diabetes Care. 2016.39(Suppl 1). Performed By: #### 2 4323-8, LIPNF ####[facility] LABCLIA [id number] [place] [address] [place] Potassium [Moles/Vol] 5.4 mmol/L High 3.7-5.1 [facility] Comment on above: Order Comment: Speci men Type: BLOOD SPECIMENOrdering Facility: [facility] Address: [address] [place] [address] Performed By: #### 2 4323-8, LIPNF ####[facility] LABIA [id number] [place] [address] [place] Protein [Mass/Vol] 6.5 g/dL Normal 6.3-8.0 [facility] Comment on above: Order Comment: Speci men Type: BLOOD SPECIMENOrdering Facility: [facility] Address: [address] [place] [address] Performed By: #### 2 4323-8, LIPNF ####[facility] LABCLIA [id number] [place] [address] [place] Sodium [Moles/Vol] 125 mmol/L Low 136-144 [facility] Comment on above: Order Comment: Speci men Type: BLOOD SPECIMENOrdering Facility: [facility] Address: [address] [place] [address] Performed By: #### 2 4323-8, LIPNF ####[facility] LABCLIA [id number] [place] [address] [place] Urea nitrogen [Mass/Vol] 10 mg/dL Normal 9-24 [facility] Comment on above: Order Comment: Speci men Type: BLOOD SPECIMENOrdering Facility: [facility] Address: [address] [place] [address] Performed By: #### 2 4323-8, LIPNF ####[facility] LABCLIA [id number] [place] [address] [place] HbA1c (Bld)on 09-11-2024 Average glucose Estimated from glycated hemoglobin (Bld) [Mass/Vol] 114 mg/dL Normal [facility] Comment on above: Order Comment: Speci men Type: BLOOD SPECIMENOrdering Facility: [facility] Address: [address] [place] [address] Result Comment: eAG: (Estimated average glucose) is a calculated value from HgbA1c and is commercial representative of the average blood glucose level in the last 2-3 month period. Performed By: #### 5 5454-3 ####[facility] LABCLIA [id number] [place] [address] [place] HbA1c (Bld) [Mass fraction] 5.6 % Normal 4.3-5.6 [facility] Comment on above: Order Comment: Speci men Type: BLOOD SPECIMENOrdering Facility: [facility] Address: [address] [place] [address] Result Comment: Amer [place] Diabetes Association guidelines indicate that patients with HgbA1c in the range 5.7-6.4% are at increased risk for development of diabetes, and intervention by lifestyle modification may be beneficial. HgbA1c greater or equal to 6.5% is considered diagnostic of diabetes. Performed By: #### 5 5454-3 ####[facility] LABCLIA [id number] [place] [address] [place] LIPID PANEL, NONFASTINGon Cholesterol [Mass/Vol] 123 mg/dL Normal <200 [facility] Comment on above: Order Comment: Speci men Type: BLOOD SPECIMENOrdering Facility: [facility] Address: [address] [place] [address] Result Comment: <200 mg/dL, Desirable 200-239 mg/dL, Borderline high >239 mg/dL, High Performed By: #### 2 4323-8, LIPNF ####[facility] LABCLIA [id number] [place] [address] [place] HDL CHOLESTEROL, NF 96 mg/dL Normal >39 [facility] Comment on above: Order Comment: Speci men Type: BLOOD SPECIMENOrdering Facility: [facility] Address: [address] [place] [address] Result Comment: 40-5 9 mg/dL, Acceptable >59 mg/dL, High: Negative risk factor for coronary heart disease <40 mg/dL, Low: Positive risk factor for coronary heart disease Performed By: #### 2 4323-8, LIPNF ####[facility] LABCLIA [id number] [address] [place] LDL CHOLESTEROL, NF 18 mg/dL Normal <100 [facility] Comment on above: Order Comment: Speci men Type: BLOOD SPECIMENOrdering Facility: [facility] Address: [address] [place] [address] Result Comment: <100 mg/dL, Optimal 100-129 mg/dL, Near optimal/above optimal 130-159 mg/dL, Borderline high 160-189 mg/dL, High >189 mg/dL, Very high Secondary prevention optimal LDL Cholesterol levels are recommended to be < 70 mg/dL Performed By: #### 2 4323-8, LIPNF ####[facility] LABCLIA [id number] [place] [address] [place] LDL/HDL RATIO, NF 0.19 mg/dL Normal <2.54 [facility] Comment on above: Order Comment: Speci men Type: BLOOD SPECIMENOrdering Facility: [facility] Address: [address] [place] [address] Result Comment: Ramon england: 1. National Cholesterol Education Program ATP III Guideline At-A-Glance Quick Desk Reference: National Heart, Lung, and Blood [place]. National Institutes of Health. 2001: NIH Publication No. 01-3305. 2. An International Atherosclerosis Society position paper: global recommendations for the management of dyslipidemia: executive summary, Atherosclerosis. 2014: 232(2):410-413. Performed By: #### 2 4323-8, LIPNF ####[facility] LABCLIA [id number] [place] [address] [place] NON HDL CHOL, NF 27 mg/dL Normal <130 [facility] Comment on above: Order Comment: Treasurei men Type: BLOOD SPECIMENOrdering Facility: [facility] Address: [address] [place] [address] Result Comment: <130 mg/dL, Optimal 130-159 mg/dL, Near optimal/above optimal 160-189 mg/dL, Borderline high 190-219 mg/dL, High >219 mg/dL, Very high Secondary prevention optimal non HDL Cholesterol levels are recommended to be <100 mg/dL Performed By: #### 2 4323-8, LIPNF ####[facility] LABCLIA [id number] [place] [address] [place] [place] CHOL/HDL RATIO NF 1.28 mg/dL Normal <5.10 [facility] Comment on above: Order Comment: Speci men Type: BLOOD SPECIMENOrdering Facility: [facility] Address: [address] [place] [address] Performed By: #### 2 4323-8, LIPNF ####[facility] LABCLIA [id number] [place] [address] [place] TRIGLYCERIDES, NF 47 mg/dL Normal <150 [facility] Comment on above: Order Comment: Speci men Type: BLOOD SPECIMENOrdering Facility: [facility] Address: [address] [id number] Result Comment: <150 mg/dL, Normal 150-199 mg/dL, Borderline high 200-499 mg/dL, High >499 mg/dL, Very high Performed By: #### 2 4323-8, LIPNF ####[facility] LABCLIA [id number] [place] [id number] [place] VLDL CHOLESTEROL, NF 9 mg/dL Normal <30 [facility] Comment on above: Order Comment: Speci men Type: BLOOD SPECIMENOrdering Facility: [facility] Address: [address] [place] [address] Performed By: #### 2 4323-8, LIPNF ####[facility] LABCLIA [id number] [place] [address] [place] Coronary Angiography CTon Coronary Angiography CT [facility] Imaging Services [address] [place] [address] 06/30/24 1112 MR#: [id number] Acct: [id number] Name: MARIE HUTSON Rep #: [id number] : 1950 74 From: Nain Segundo MD PCP: Dr. Shre Jules MD Status:REG CLI Y Location: CT [...] MD; Dr. Sher Jules MD S[facility] Office Visit (PODIWS ) MARIE HUTSON ([id number]) 1950 M Date Time Provider Department 06/26/24 [...] Objective: Patient presents to clinic ambulating in [facility] Vasc: DP and PT pulses are faintly [...] Gomez Schwab DPM Referring Provider: GOMEZ SCHWAB [[id number]] Allergies As of Date: 06/26/2024 (No Known [...] [M79.674] PAD (peripheral artery disease) ([facility]) [I73.9] Diabetic polyneuropathy associated with type 2 diabetes mellitus ([facility]) [E11.42] Prescriptions as of 06/26/2024 - nitroglycerin [...] days. - Miscellaneous Medical Supply (COMPRESSION STOCKINGS) [facility] [place]PRESSION STOCKINGS KNEE HI [...] [N52.9] 12/29/2007 (more content not included)... Normal [facility] Cardiology Visit Reporton Cardiology Visit Report [facility] Heart [facility] [address] [place] [address] OFFICE VISIT Date of Service: 06/26/24 MR#: [id number] Acct: [id number] Name: MARIE HUTSON Rep #: [id number] : 1950 Provider: TANIYA lopez Age/Sex: 74/M Location: [facility] Status: Signed HPI HPI History of Present Illness Details: This is a 74 year old gentleman who presents to the office today for a cardiovascular follow-up visit. He has a past medical history significant for coronary artery disease with three-vessel CABG (WRIGHT LAD, SVG-PDA, SVG-OM 1) in 2012 at the [facility]. He had presented to the emergency room [...] He states that he followed with his composing room machinist at [facility] Dr. Ricks after his hospitalization. From a [...] 99 Intake Visit Reasons: 4 WK [employer]U [employer] Spotter Required: No Is patient in pain?: No [...] Essential (primary) hypertension Atherosclerotic heart disease of [place] coronary artery without angina pectoris Diabetes mellitus, [...] fatigue, weakness, (more content not included)... Normal [facility] CREATININE FINGERSTICKon CREATININE WB < 1.0 Normal 0.70-1.30 [facility] Comment on above: Performed By: #### L 9100.0200 ####[facility] [address] [place], [place], [id number] EGFR WB > 60.0000 Normal >60 [facility] Comment on above: Performed By: #### L 9100.0200 ####[facility] [address] [facility] [place], [address] Cardiac Onl yon 06-23-[address] Cardiac Only [facility] Imaging Services [address], [place] [address] Limited Chest CT Cardiac Only MR#: [id number] Acct: [id number] Name: MARIE HUTSON Rep #: [id number] : 1950 M 74 From: Ravi cmghee MD PCP: Dr. Sher Jules MD Status: [facility] Study: Limited Chest CT Cardiac Only Date of Exam: Exam# [id number] Ordering Dr: Naz Cox LAUNDRY ROUTEMAN LAUNDRY ROUTEMAN- C [id number] STUDY: CT CHEST WITH T WITHOUT CONTRAST REASON FOR EXAM: Male, 74 years old. Atherosclerotic heart disease of [place] coronary artery with limited chest over read [...] CC: TANIYA Cox; Dr. Sher Jules MD Oil Well Cable Tool Operator: Signed Normal [facility] 12 Lead EKG performed by [facility] on 05-28-2024 12 Lead EKG performed by [facility] [address] [place] [address] 12 Lead EKG performed by [facility] 05/28/241042 MR#: [id number] Acct: [id number] Name: MARIE HUTSON Rep #: [id number] : 1950 74 From: Naz Cox NP LAUNDRY ROUTEMAN-C Attending Dr: ROSI SinhaC Status: DEP Susan CASE Ordering Dr: Naz Cox NP LAUNDRY ROUTEMAN-C Date: 05/28/24 Location: [facility] Sex: M C Admitted: BMS/12 Lead EKG performed by [facility] ECG Report Interpretation ---Marked sinus Bradycardia -First degree A-V block Janina = 244BORDERLINE RHYTHMElectronically signed on 06/03/2024 at 07:35 by Nain Segundo Software Version 8610 06/03/2438 Date Naz MONAHAN CC: Dr. Sher Jules MD Date Dictated: 05/28/241042 Date Transcribed: 05/28/241042 [employer] Tool Operator: MASOOD Signed Normal [facility] Cardiology Visit Reporton Cardiology Visit Report [facility] [address] [place] [address] OFFICE VISIT Date of Service: 05/28/24 MR#: [id number] Acct: [id number] Name: MARIE HUTSON Rep #: [id number] : 1950 Provider: TANIYA lopez Age/Sex: 74/M Location: [facility] Status: Signed [facility] History of Present Illness Details: This is a 74 year old gentleman who presents to the office today for a cardiovascular follow-up visit. He has a past medical history significant for coronary artery disease with three-vessel CABG (WRIGHT LAD, SVG-PDA, SVG-OM 1) in 2012 at the [facility]. He had presented to the emergency room [...] He states that he followed with his composing room machinist at [facility] Ricks after his hospitalization. [...] Method room air Intake Visit Reasons: S/P [facility] Cath 01/28 Accompanied by: Self Is [...] Essential (primary) hypertension Atherosclerotic heart disease of [place] coronary artery without angina pectoris Diabetes mellitus, [...] Smoking S (more content not included)... Normal [facility] NM CARDIAC PERF STRESS/PHARM on 03-12-2024 NM CARDIAC PERF STRESS/PHARM * * *Final Report* * * DATE OF EXAM: Mar 12 2024 9:00AM ASHER 0006 - NM CARDIAC PERF STRESS/PHARM / PROCEDURE REASON: multiple diagnoses * * * * Physician Interpretation * * * * Stress Table Inspector Report: [facility] Date of service: 03/12/2024 7:31:04 AM [...] later. See administered radiotracer and doses below. [facility] Date of service: 03/12/2024 7:31:04 AM [...] * * * ---- Stress ECG Report: [facility] Date of service: 03/12/2024 7:31:04 AM Ordering physician: BIB PATTERSON automated logistics specialist: Ericka Hurtado Docketing Specialist: Edelmira Wilks Interpreting physician: Cecile Woodson MD [...] PCI (20 (more content not included)... Normal [facility] NM Heart Perfusion W stress and W radionuclide [place] 03-12-2024 * * *Final Report* * * DATE OF EXAM: Mar 12 2024 9:00AM ASHER 0006 - NM CARDIAC PERF STRESS/PHARM / PROCEDURE REASON: multiple diagnoses * * * * Physician Interpretation * * * * Stress Table Inspector Report: [facility] Date of service: 03/12/2024 7:31:04 AM [...] later. See administered radiotracer and doses below. [facility] Date of service: 03/12/2024 7:31:04 AM [...] * * * ---- Stress ECG Report: [facility] Date of service: 03/12/2024 7:31:04 AM Ordering physician: BIB PATTERSON automated logistics specialist: Ericka Hurtado Docketing Specialist: Edelmira Wilks Interpreting physician: Cecile Woodson MD Patient name: MR. MARIE HUTSON Age: 74 years Gender: M Height: 170.18 cm BSA: 2.26 m Weight: 108.41 kg BMI: 37.4 kg/m Indication: Chest pressure / Chest tightness Stress ECG Conclusion: Conclusion: Normal Stress ECG Summary (more content not included)... [facility] Provider, [facility] Flaca meng [place] - 03/12/2024 * * *Final Report* * * DATE OF EXAM: Mar 12 2024 9:00AM ASHER 0006 - NM CARDIAC PERF STRESS/PHARM / PROCEDURE REASON: multiple diagnoses * * * * Physician Interpretation * * * * Stress Table Inspector Report: [facility] Date of service: 03/12/2024 7:31:04 AM [...] later. See administered radiotracer and doses below. [facility] Date of service: 03/12/2024 7:31:04 AM [...] * * * ---- Stress ECG Report: [facility] Date of service: 03/12/2024 7:31:04 AM Ordering physician: BIB PATTERSON automated logistics specialist: Ericka Hurtado Docketing Specialist: Edelmira Wilks Interpreting physician: Cecile Woodson MD [...] the predicted he (more content not included)... [facility] Radiology [facility]narrative[facility] Heart Perfusion W stress and W radionuclide IVOrdered By: Ccf Provider on 03-12-2024 [facility] Remy 03-11-2024 [place] Telephone (CDLBME) MARIE HUTSON ([id number]) 1950 M Date Time Provider Department 03/11/24 [...] days. - Miscellaneous Medical Supply (COMPRESSION STOCKINGS) [facility] [place] COMPRESSION STOCKINGS KNEE HI [...] [H34.232] 06/11/2022 02/07/[address] [facility] clemente*05/06/2023 Obesity, Class II, BMI 35-39.9 [E66.9] 08/09/2023 02/07/2024 Obesity, Class I, BMI 30-34.9 [E66.9] 02/07/2024 Encounter Status:Closed by EDELMIRA WILKS on 03/11/24 [facility] Basophil percentageOrdered B y: Rubio Simeon on 01-30-2024 Bilirubin [Mass/Vol] 0.80 mg/dL 0.20-1.00 [facility] Comment on above: For patients on eltr ombopag therapy, use of Dimension [place] TBIL is not recommended. Chloride [Moles/Vol] 101 mmol/L 98-107 [facility] Glucose [Mass/Vol] 160 mg/dL 74-106 [facility] Comment on above: Fasting Glucose resu lt greater than or equal to 126 mg/dL suggests DIABETES MELLITUS per A.D.A. criteria. Hemoglobin (Bld) [Mass/Vol] 9.6 g/dL 13.0-16.5 [facility] Potassium [Moles/Vol] 3.5 mmol/L 3.5-5.1 [facility] Protein [Mass/Vol] 6.0 g/dL 6.4-8.2 [facility] Sodium [Moles/Vol] 135 mmol/L 136-145 [facility] WBC (Bld) [#/Vol] 14.5 10*3/uL 4.4-11.0 [facility] Determination of erythrocyte mean corpuscular volume (MCV)Ordered By: Rubio Simeon on 01-30-2024 MCV (RBC) [Entitic vol] 93.2 fL 80-94 [facility] Erythrocyte distribution wid th ratioOrdered By: [facility] on 01-30-2024 Erythrocyte distribution width (RBC) [Ratio] 11.9 % 11.6-14.6 [facility] Erythrocyte distribution wid th standard deviationOrdered By: [facility] on 01-30-2024 Erythrocyte distribution width (RBC) [Entitic vol] 39.7 fL 35.1-43.9 [facility] Hematocrit Auto (Bld) [Volum e fraction]Ordered By: Rubiocarla Simeon on 01-30-2024 Hematocrit (Bld) [Volume fraction] 27.5 % 40-54 [facility] Laboratory - Chemistry and C hemistry - challengeOrdered By: Rubio Blanco on 01-30-2024 Albumin/Globulin [Mass ratio] 0.8 {ratio} 0.9-2.4 [facility] ALP [Catalytic activity/Vol] 86 U/L 45-117 [facility] ALT [Catalytic activity/Vol] 22 U/L 16-61 [facility] CO2 [Moles/Vol] 28.0 mmol/L 21.0-32.0 [facility] Globulin (S) [Mass/Vol] 3.4 g/dL 2.2-4.2 [facility] Urea nitrogen/Creatinine [Mass ratio] 21.5 mg/mg 10-20 [facility] Laboratory - Hematology and Cell countsOrdered By: Rubiocarla Simeon on 01-30-2024 MCH (RBC) [Entitic mass] 32.5 pg 27.0-32.0 [facility] MCHC (RBC) [Mass/Vol] 34.9 g/dL 32-36 [facility] Platelet mean volume (Bld) [Entitic vol] 9.1 fL 6.2-12.0 [facility] Platelets (Bld) [#/Vol] 317 10*3/uL 150-450 [facility] No Panel InformationOrdered By: Rubio Simeon on 01-30-2024 Estimated Creatinine Clearance Calc 99.95 ml/min [facility] Estimated GFR (MDRD) Amer 133 mL/min >60 [facility] Comment on above: GFR Calc Estimated GFR (MDRD) Non-Af Amer 110 mL/min >60 [facility] Comment on above: Non- GFR Calc RBC Auto (Bld) [#/Vol]Ordere d By: uRbio Simeon on 01-30-2024 RBC (Bld) [#/Vol] 2.95 10*6/uL 4.6-6.2 [facility] Serum or plasma calcium juany urement (mass/volume)Ordered By: Rubio Simeon on 01-30-2024 Calcium [Mass/Vol] 8.6 mg/dL 8.5-10.1 [facility] Serum or plasma creatinine m easurement (mass/volume)Ordered By: Rubio Simeon on 01-30-2024 Creatinine [Mass/Vol] 0.74 mg/dL 0.70-1.30 [facility] Comment on above: The validity of the calculated GFR & GFRAA in patients over 70 years has not been determined. Clinical correlation is essential. Serum or plasma urea nitroge n measurement (mass/volume)Ordered By: Rubio Simeon on 01-30-2024 Urea nitrogen [Mass/Vol] 16 mg/dL 7-18 [facility] Thin prep Papanicolaou smear with manual screeningOrdered By: Debby Machuca on 01-30-2024 Thin prep Papanicolaou smear with manual screening 224 mg/dL 74-106 [facility] Comment on above: MANAGEMENT OF PATIEN T CARE PER NURSING PROTOCOL Thin prep Papanicolaou smear with manual screeningOrdered By: Rubio Simeon on 01-30-2024 Thin prep Papanicolaou smear with manual screening 2.6 g/dL 3.2-5.0 [facility] Thin prep Papanicolaou smear with manual screening 46 U/L 15-37 [facility] Thin prep Papanicolaou smear with manual screening 6 5-15 [facility] Absolute lymphocyte countOrd ered By: Geeta Mendoza on 01-29-2024 Lymphocytes Auto (Unsp spec) [#/Vol] 0.73 10*3/uL 0.83-4.51 [facility] Activated partial thrombopla stin time (aPTT) in platelet poor plasma by coagulation aOrdered By: Rubio Simeon on 01-29-2024 aPTT Coag (PPP) [Time] 95.3 s 24.1-36.[address] [facility] Comment on above: CRITICAL VALUE VERIF IED. CALLED TO ERNESTINA HOLLOWAY (ICU)01/29/24 07 Gomez Sewell.RESULTS READ BACK BY SAME. Automated lymphocyte count a s percentage of total leukocytesOrdered By: Geeta Mendoza on 01-29-2024 Lymphocytes/100 WBC Auto (Unsp spec) 4.7 % 19-41 [facility] Basophil percentageOrdered B y: Geeta Mendoza on 01-29-2024 Basophil percentage 3.6 mg/dL 2.5-4.9 [facility] Basophils/100 WBC (Bld) 0.1 % 0-1 [facility] Cholesterol [Mass/Vol] 79 mg/dL <[address] [facility] Comment on above: <200 mg/dL Desirable 200-240 mg/dL Borderline >240 mg/dL High Risk Eosinophils/100 WBC (Bld) 0.0 % 0-5 [facility] Monocytes/100 WBC (Bld) 6.0 % 0-10 [facility] Neutrophils (Bld) [#/Vol] 13.7 10*3/uL 2.0-7.7 [facility] Neutrophils/100 WBC (Bld) 88.5 % 47-70 [facility] Triglyceride [Mass/Vol] 54 mg/dL <199 [facility] Comment on above: The drugs N-Acetylcy steine and Metamizole may falsely depress this assay.Serum Triglycerides Reference Interval Normal <150 mg/dL Borderline high 150 - 199 mg/dL High 200 - 499 mg/dL Very High > or = 500 mg/dL Immature granulocytes/100 WB C Auto (Bld)Ordered By: Geeta Mendoza on 01-29-2024 Immature granulocytes/100 WBC (Bld) 0.700 % 0.0-0.9 [facility] Comment on above: IG% - Immature Granu locytes (promyelocytes, myelocytes and metamyelocytes) > 1% indicates that a LEFT SHIFT is Present. Iron measurement (mass/mass) Ordered By: Geeta Mendoza on 01-29-2024 Iron (Unsp spec) [Mass/Mass] 87 ug/dL 65-175 [facility] Laboratory - Chemistry and C hemistry - challengeOrdered By: Geeta Mendoza on 01-29-2024 Cholesterol in HDL [Mass/Vol] 49 mg/dL >40 [facility] Comment on above: The drugs N-Acetylcy steine and Metamizole may falsely depress this assay. Reference Range HDL <40 mg/dL Low HDL Cholesterol HDL >or= 60 mg/dL High HDL Cholesterol Cholesterol in LDL [Mass/Vol] 19 mg/dL 0-130 [facility] Cobalamin (Vitamin B12) [Mass/Vol] 424 pg/mL 211-911 [facility] Ferritin [Mass/Vol] 234 ng/mL 26-388 [facility] Magnesium [Mass/Vol] 1.9 mg/dL 1.6-2.6 [facility] Laboratory - Hematology and Cell countsOrdered By: Geeta Mendoza on 01-29-2024 Nucleated RBC/100 WBC (Bld) [Ratio] 0 % 0-5 [facility] No Panel InformationOrdered By: Debby Machuca on 01-29-2024 Activated Clotting Time 255 sec 74-137 [facility] No Panel InformationOrdered By: Geeta Mendoza on 01-29-2024 Folate 17.30 ng/mL 3.1-55.4 [facility] Total Iron Binding Capacity 195 ug/dL 250-450 [facility] VLDL Cholesterol 11 mg/dL 5-40 [facility] Troponin I High Sensitivity 81079 pg/mL 3.0-78.0 [facility] Comment on above: Critical Result(s) C alled at: 00:42:11 01/29/2024 by: Christiana Hale RN in ICU. Results read back by same. Please Note: New Test Units and Gender Specific Reference Ranges. For more information see Policy Stat Procedure [place] High Sensitivity Troponin (TNIH) and attachments. Serum or plasma iron saturat ion measurement (mass fraction)Ordered By: Geeta Kelly on 01-29-2024 Iron saturation [Mass fraction] 44.6 % 15.0-55.0 [facility] Serum or plasma thyroid stim ulating hormone (TSH) measurement (units/volume)Ordered By: Geeta Kelly on 01-29-2024 TSH Qn 0.31 uIU/mL 0.358-3.74 [facility] Thin prep Papanicolaou smear with manual screeningOrdered By: Geeta Kelly on 01-29-2024 Thin prep Papanicolaou smear with manual screening 1.27 ng/dL 0.76-1.46 [facility] Whole blood hemoglobin A1c/t otal hemoglobin ratio (mass fraction)Ordered By: Geeta Kelly on 01-29-2024 HbA1c (Bld) [Mass fraction] 6.3 % 3.8-5.6 [facility] Comment on above: Normal < 5.7 % Predi abetic 5.7 - 6.4 % Diabetic >or= 6.5 % Please note range changes. XR Wrist - bilateral PA and Lateral and Obliqueon 01-29-2024 IMPRESSION: 1. No acute radiographic abnormality of the bilateral wrists [employer] Well [employer] Tool Operator: PSCB Transcribe Date/Time: Jan 29 2024 5:05P Dictated by : TOOTIE BERNARD MD This examination was interpreted and the report reviewed and electronically signed by: TOOTIE BERNARD MD on Jan 29 2024 5:06PM [facility] DIVISION OF RADIOLOGY * * *Final [...] DIVISION OF RADIOLOGY Provider, Malini [facility] - 01/29/2024 * * *Final Report* * [...] acute radiographic abnormality of the bilateral wrists Oil Well Cable Tool Operator: [facility] Transcribe Date/Time: Jan 29 2024 5:05P Dictated by : TOOTIE BERNARD MD This examination was interpreted and the report reviewed and electronically signed by: TOOTIE BERNARD MD on Jan 29 2024 5:06PM EST [facility] XR Wrist - bilateral PA and Lateral and ObliqueOrdered By: Ccf Provider on 01-29-2024 [facility] Absolute lymphocyte countOrd ered By: Kvng Jacobson on 01-28-2024 Lymphocytes Auto (Unsp spec) [#/Vol] 0.77 10*3/uL 0.83-4.51 [facility] Activated partial thrombopla stin time (aPTT) in platelet poor plasma by coagulation aOrdered By: Kvng Jacobson on 01-28-2024 aPTT Coag (PPP) [Time] 43.4 s 24.1-36.[address] [facility] Automated lymphocyte count a s percentage of total leukocytesOrdered By: Kvng Jacobson on 01-28-2024 Lymphocytes/100 WBC Auto (Unsp spec) 4.6 % 19-41 [facility] Basophil percentageOrdered B y: Rubio Blanco on 01-28-2024 Basophil percentage 0 SEEN /hpf 0-5 [facility] Basophil percentageOrdered B y: Geeta White on 01-28-2024 Basophil percentage 2.2 mg/dL 2.5-4.9 [facility] Bilirubin [Mass/Vol] 0.90 mg/dL 0.20-1.00 [facility] Comment on above: For patients on eltr ombopag therapy, use of Dimension [place] TBIL is not recommended. Protein [Mass/Vol] 7.1 g/dL 6.4-8.2 [facility] Basophil percentageOrdered B y: Kvng Jacobson on 01-28-2024 Basophils/100 WBC (Bld) 0.1 % 0-1 [facility] Chloride [Moles/Vol] 96 mmol/L 98-107 [facility] Eosinophils/100 WBC (Bld) 0.0 % 0-5 [facility] Glucose [Mass/Vol] 262 mg/dL 74-106 [facility] Comment on above: Glucose result great er than or equal to 200 mg/dLsuggests DIABETES MELLITUS per A.D.A. criteria. Hemoglobin (Bld) [Mass/Vol] 10.7 g/dL 13.0-16.5 [facility] Monocytes/100 WBC (Bld) 2.2 % 0-10 [facility] Neutrophils (Bld) [#/Vol] 15.4 10*3/uL 2.0-7.7 [facility] Neutrophils/100 WBC (Bld) 91.9 % 47-70 [facility] Potassium [Moles/Vol] 4.3 mmol/L 3.5-5.1 [facility] Sodium [Moles/Vol] 129 mmol/L 136-145 [facility] WBC (Bld) [#/Vol] 16.8 10*3/uL 4.4-11.0 [facility] Bilirubin Test strip Ql (U)O rdered By: Rubio Simeon on 01-28-2024 Bilirubin Ql (U) Negative Negative [facility] Determination of erythrocyte mean corpuscular volume (MCV)Ordered By: Kvng Jacobson on 01-28-2024 MCV (RBC) [Entitic vol] 93.9 fL 80-94 [facility] Direct bilirubinOrdered By: Geeta Mendoza on 01-28-2024 Bilirubin.direct [Mass/Vol] 0.30 mg/dL 0.00-0.30 [facility] Erythrocyte distribution wid th ratioOrdered By: Kvng Jacobson on 01-28-2024 Erythrocyte distribution width (RBC) [Ratio] 11.7 % 11.6-14.6 [facility] Erythrocyte distribution wid th standard deviationOrdered By: Kvng Jacobson on 01-28-2024 Erythrocyte distribution width (RBC) [Entitic vol] 39.6 fL 35.1-43.9 [facility] Hematocrit Auto (Bld) [Volum e fraction]Ordered By: Kvng Jacobson on 01-28-2024 Hematocrit (Bld) [Volume fraction] 30.7 % 40-54 [facility] Immature granulocytes/100 WB C Auto (Bld)Ordered By: Kvng Jacobson on 01-28-2024 Immature granulocytes/100 WBC (Bld) 1.200 % 0.0-0.9 [facility] Comment on above: IG% - Immature Granu locytes (promyelocytes, myelocytes and metamyelocytes) > 1% indicates that a LEFT SHIFT is Present. Ketones Test strip Ql (U)Ord ered By: Rubio Simeon on 01-28-2024 Ketones Ql (U) Negative Negative [facility] Laboratory - Chemistry and C hemistry - challengeOrdered By: Geeta Mendoza on 01-28-2024 Sodium (U) [Moles/Vol] 50 mmol/L Not Establ. [facility] ALP [Catalytic activity/Vol] 104 U/L 45-117 [facility] ALT [Catalytic activity/Vol] 18 U/L 16-61 [facility] Globulin (S) [Mass/Vol] 3.9 g/dL 2.2-4.2 [facility] Magnesium [Mass/Vol] 1.6 mg/dL 1.6-2.6 [facility] Laboratory - Chemistry and C hemistry - challengeOrdered By: Kvng Jacobson on 01-28-2024 CO2 [Moles/Vol] 23.0 mmol/L 21.0-32.0 [facility] Urea nitrogen/Creatinine [Mass ratio] 19.8 mg/mg 10-20 [facility] Laboratory - CoagulationOrde red By: Kvng Jacobson on 01-28-2024 INR Coag (Bld) [Relative time] 1.1 {INR} [facility] PT Coag (PPP) [Time] 13.8 s 11.7-14.9 [facility] Laboratory - Hematology and Cell countsOrdered By: Kvng Jacobson on 01-28-2024 MCH (RBC) [Entitic mass] 32.7 pg 27.0-32.0 [facility] MCHC (RBC) [Mass/Vol] 34.9 g/dL 32-36 [facility] Nucleated RBC/100 WBC (Bld) [Ratio] 0 % 0-5 [facility] Platelet mean volume (Bld) [Entitic vol] 9.5 fL 6.2-12.0 [facility] Platelets (Bld) [#/Vol] 339 10*3/uL 150-450 [facility] Mucus LM Ql (Urine sed)Order ed By: Rubio Simeon on 01-28-2024 Mucus Ql (Urine sed) 0 SEEN /hpf [facility] Nitrite Test strip Ql (U)Ord ered By: Rubio Simeon on 01-28-2024 Nitrite Ql (U) Negative Negative [facility] No Panel InformationOrdered By: Rubio Simeon on 01-28-2024 Urine RBC 0 SEEN /hpf 0-5 [facility] D-Dimer Quantitative (PE/DVT) 1.70 FEU/ug/m 0.27-0.49 [facility] Comment on above: D-Dimer ELEVATED (>0 .49): Additional studies and clinicalassessments are indicated to conclude diagnosis of:Deep Vein Thrombosis (DVT) or Pulmonary Embolism (PE)CRITICAL VALUE VERIFIED. CALLED TO [id number] Aisha Pedroza.RESULTS READ BACK BY SAME . No Panel InformationOrdered By: Kvng Jacobson on 01-28-2024 Troponin I High Sensitivity 12448 pg/mL 3.0-78.0 [facility] Comment on above: Critical Result(s) C alled at: 21:09:53 01/28/2024 by: BRE GERBER TO NGOC. Results read back by same. Please Note: New Test Units and Gender Specific Reference Ranges. For more information see Policy Stat Procedure [place] High Sensitivity Troponin (TNIH) and attachments. Estimated Creatinine Clearance Calc 71.85 ml/min [facility] Estimated GFR (MDRD) Amer 84 mL/min >60 [facility] Comment on above: GFR Calc Estimated GFR (MDRD) Non-Af Amer 69 mL/min >60 [facility] Comment on above: Non- GFR Calc Protein Test strip Ql (U)Ord ered By: Rubio Simeon on 01-28-2024 Protein Ql (U) Negative Negative [facility] RBC Auto (Bld) [#/Vol]Ordere d By: Kvng Jacobson on 01-28-2024 RBC (Bld) [#/Vol] 3.27 10*6/uL 4.6-6.2 [facility] Serum or plasma calcium juany urement (mass/volume)Ordered By: Kvng Jacobson on 01-28-2024 Calcium [Mass/Vol] 9.6 mg/dL 8.5-10.1 [facility] Serum or plasma creatinine m easurement (mass/volume)Ordered By: Kvng Jacobson on 01-28-2024 Creatinine [Mass/Vol] 1.11 mg/dL 0.70-1.30 [facility] Comment on above: The validity of the calculated GFR & GFRAA in patients over 70 years has not been determined. Clinical correlation is essential. Serum or plasma urea nitroge n measurement (mass/volume)Ordered By: Kvng Jacobson on 01-28-2024 Urea nitrogen [Mass/Vol] 22 mg/dL 7-18 [facility] Serum procalcitonin measurem entOrdered By: Geeta Mendoza on 01-28-2024 Procalcitonin [Mass/Vol] 0.04 ng/mL 0.00-0.09 [facility] Comment on above: A procalcitonin (PCT ) [...] Ql (Urine sed) 0 SEEN /hpf 0-5 [facility] Thin prep Papanicolaou smear with manual screeningOrdered By: Geeta Mendoza on 01-28-2024 Thin prep Papanicolaou smear with manual screening 3.2 g/dL 3.2-5.0 [facility] Thin prep Papanicolaou smear with manual screening 14 U/L 15-37 [facility] Thin prep Papanicolaou smear with manual screeningOrdered By: Kvng Jacobson on 01-28-2024 Thin prep Papanicolaou smear with manual screening 10 5-15 [facility] Urine blood detectionOrdered By: Rubio Simeon on 01-28-2024 RBC Ql (U) Negative Negative [facility] Urine clarityOrdered By: Raven Simeon on 01-28-2024 Clarity (U) Clear Clear [facility] Urine color determinationOrd ered By: Rubio Simeon on 01-28-2024 Color (U) Yellow Yellow [facility] Urine creatinine measurement (mass/volume)Ordered By: Geeta Mendoza on 01-28-2024 Creatinine (U) [Mass/Vol] 20.80 mg/dL NO RANGE EST. [facility] Urine glucose detectionOrder ed By: Rubio Simeon on 01-28-2024 Glucose Ql (U) 50 mg/dl Normal [facility] Urine leukocyte esterase det ection by dipstickOrdered By: Rubio Simeon on 01-28-2024 Leukocyte esterase Test strip Ql (U) Negative Negative [facility] Urine osmolality measurement Ordered By: Geeta Mendoza on 01-28-2024 Osmolality (U) [Osmolality] 286 mOsm/KG >50 [facility] Comment on above: Normal Urine Referen ce Ranges Random: 50 - 1200 mOsm/kg H20 depending on fluid intake Random: >850 mOsm/kg after 12 hour fluid restriction 24 hour: ~300 - 900 mOsm/kg H2O Urine pHOrdered By: Rubio head on 01-28-2024 pH (U) 6.0 [pH] 5.0 - 8.0 [facility] Urine sediment bacteria coun t by microscopy (number/high power field)Ordered By: Rubio Simeon on 01-28-2024 Bacteria LM.HPF (Urine sed) [#/Area] 0 /[HPF] None Seen [facility] Urine specific gravity measu rementOrdered By: Rubio Simeon on 01-28-2024 Specific gravity (U) [Rel density] 1.010 1.002-1.030 [facility] Urine urobilinogen measureme ntOrdered By: Rubio Simeon on 01-28-2024 Urobilinogen Ql (U) Normal mg/dl Normal [facility] XR Wrist - bilateral PA and Lateral and Obliqueon 2024 Radiology Study observation (narrative) [facility] CTA ABD/PEL LOWER EXTREM W I VCONon 02-14-2023 [facility] CBC panel Auto (Bld)on 02-06 Erythrocyte distribution width (RBC) [Ratio] 11.3 % Low 11.5 - 15.0 % [facility] Hematocrit (Bld) [Volume fraction] 36.9 % Low 39.0 - 51.0 % [facility] Hemoglobin (Bld) [Mass/Vol] 13.2 g/dL 13.0 - 17.0 g/dL [facility] MCH (RBC) [Entitic mass] 34.0 pg 26.0 - 34.0 pg [facility] MCHC (RBC) [Mass/Vol] 35.8 g/dL 30.5 - 36.0 g/dL [facility] MCV (RBC) [Entitic vol] 95.1 fL 80.0 - 100.0 fL [facility] Nucleated RBC (Bld) [#/Vol] <0.01 k/uL [facility] Platelet mean volume (Bld) [Entitic vol] 9.9 fL 9.0 - 12.7 fL [facility] Platelets (Bld) [#/Vol] 208 10*3/uL 150 - 400 k/uL [facility] RBC (Bld) [#/Vol] 3.88 10*6/uL Low 4.20 - 6.0 0 m/uL [facility] WBC (Bld) [#/Vol] 4.16 10*3/uL 3.70 - 11. 00 k/uL [facility] Comprehensive metabolic 2000 panelon 02-06-2023 Albumin [Mass/Vol] 4.4 g/dL 3.9 - 4.9 g/dL [facility] ALP [Catalytic activity/Vol] 73 U/L 38 - 113 U/L [facility] ALT [Catalytic activity/Vol] 21 U/L 10 - 54 U/L [facility] Anion gap [Moles/Vol] 10 mmol/L 9 - 18 mmol/L [facility] AST [Catalytic activity/Vol] 25 U/L 14 - 40 U/L [facility] Bilirubin [Mass/Vol] 1.0 mg/dL 0.2 - 1 .3 mg/dL [facility] Calcium [Mass/Vol] 9.8 mg/dL 8.5 - 10. 2 mg/dL [facility] Chloride [Moles/Vol] 100 mmol/L 97 - 10 5 mmol/L [facility] CO2 [Moles/Vol] 23 mmol/L 22 - 30 mmol/L [facility] Creatinine [Mass/Vol] 0.64 mg/dL Low 0.73 - 1.22 mg/dL [facility] Estimated Glomerular Filtration Rate 101 mL/min/1.73m >=60 mL/min/1.73m [facility] Glucose [Mass/Vol] 174 mg/dL High 74 - 99 mg/dL [facility] Potassium [Moles/Vol] 4.5 mmol/L 3.7 - 5.1 mmol/L [facility] Protein [Mass/Vol] 7.0 g/dL 6.3 - 8.0 g/dL [facility] Sodium [Moles/Vol] 133 mmol/L Low 136 - 144 mmol/L [facility] Urea nitrogen [Mass/Vol] 11 mg/dL 9 - 24 mg/dL [facility] HbA1c (Bld)on 02-06-2023 Average glucose Estimated from glycated hemoglobin (Bld) [Mass/Vol] 169 mg/dL [facility] HbA1c (Bld) [Mass fraction] 7.5 % High 4.3 - 5.6 % [facility] Lipid 1996 panelon Cholesterol [Mass/Vol] 124 mg/dL <200 mg/dL [facility] Cholesterol in HDL [Mass/Vol] 69 mg/dL >39 mg/dL [facility] Cholesterol in LDL [Mass/Vol] 45 mg/dL <100 mg/dL [facility] Cholesterol in LDL/Cholesterol in HDL [Mass ratio] 0.65 {ratio} <2.54 [facility] Cholesterol in VLDL [Mass/Vol] 10 mg/dL <30 mg/dL [facility] Cholesterol non HDL [Mass/Vol] 55 mg/dL <130 mg/dL [facility] Cholesterol.total/Verna sterol in HDL [Mass ratio] 1.80 {ratio} <5.10 [facility] Fasting Time 14 hrs [facility] Triglyceride [Mass/Vol] 52 mg/dL <150 mg/dL C [facility] CREATININE BLDon 01-15-2023 Creatinine [Mass/Vol] 0.81 mg/dL 0.73 - 1.22 mg/dL [facility] Estimated Glomerular Filtration Rate 95 mL/min/1.73m >=60 mL/min/1.73m [facility] ECG COMPLETEon 09-05-2022 Atrial Rate 60 BPM [facility] Calculated P [place] 38 degrees [facility] Calculated R [place] 3 degrees [facility] Calculated T [place] 39 degrees [facility] P-R Interval 204 ms [facility] QRS Duration 98 ms [facility] QT Interval 440 ms [facility] QTC Calculation (Bazett) 440 ms [facility] Ventricular Rate 60 BPM [facility] Absolute lymphocyte counton 05-30-2022 Lymphocytes Auto (Unsp spec) [#/Vol] 1.04 10*3/uL 0.83-4.51 [facility] Work Phone: Basophil percentageon 2021 Basophils/100 WBC (Bld) 0.5 % 0-1 [facility] Work Phone: Bilirubin [Mass/Vol] 1.40 mg/dL 0.20-1.00 [facility] Work Phone: Comment on above: For patients on eltr ombopag therapy, use of Dimension [place] TBIL is not recommended. Chloride [Moles/Vol] 103 mmol/L 98-107 [facility] Work Phone: Cholesterol [Mass/Vol] 104 mg/dL <[address] [facility] Work Phone: Comment on above: <200 mg/dL Desirable 200-240 mg/dL Borderline >240 mg/dL High Risk Eosinophils/100 WBC (Bld) 0.7 % 0-5 [facility] Work Phone: Glucose [Mass/Vol] 109 mg/dL 74-106 [facility] Work Phone: Comment on above: Fasting Glucose resu lt from 100 to 125 mg/dL suggests IMPAIRED HOMEOSTASIS per A.D.A. criteria. Neutrophils (Bld) [#/Vol] 3.9 10*3/uL 2.0-7.7 [facility] Work Phone: Neutrophils/100 WBC (Bld) 69.3 % 47-70 [facility] Work Phone: Potassium [Moles/Vol] 3.6 mmol/L 3.5-5.1 [facility] Work Phone: Protein [Mass/Vol] 6.0 g/dL 6.4-8.2 [facility] Work Phone: Sodium [Moles/Vol] 134 mmol/L 136-145 [facility] Work Phone: Triglyceride [Mass/Vol] 93 mg/dL <199 [facility] Work Phone: Comment on above: The drugs N-Acetylcy steine and Metamizole may falsely depress this assay.Serum Triglycerides Reference Interval Normal <150 mg/dL Borderline high 150 - 199 mg/dL High 200 - 499 mg/dL Very High > or = 500 mg/dL WBC (Bld) [#/Vol] 5.6 10*3/uL 4.4-11.0 [facility] Work Phone: Blood erythrocytes count (nu mber/volume)on 05-30-2022 RBC (Bld) [#/Vol] 3.59 10*6/uL 4.6-6.2 [facility] Work Phone: Blood hemoglobin measurement (mass/volume)on 05-30-2022 Hemoglobin (Bld) [Mass/Vol] 12.0 g/dL 13.0-16.5 [facility] Work Phone: Blood lymphocytes/100 leukoc yteson 05-30-2022 Lymphocytes/100 WBC (Bld) 18.6 % 19-41 [facility] Work Phone: Blood monocytes/100 leukocyt eson 05-30-2022 Monocytes/100 WBC (Bld) 10.7 % 0-10 [facility] Work Phone: Blood platelet mean volumeon 05-30-2022 Platelet mean volume (Bld) [Entitic vol] 9.7 fL 6.2-12.0 [facility] Work Phone: Determination of erythrocyte mean corpuscular volume (MCV)on 05-30-2022 MCV (RBC) [Entitic vol] 95.0 fL 80-94 [facility] Work Phone: Glucose Glucometer (BldC) [M ass/Vol]on 05-30-2022 Glucose [Mass/Vol] 221 mg/dL 74-106 [facility] Work Phone: Comment on above: MANAGEMENT OF PATIEN T CARE PER NURSING PROTOCOL Hematocrit Auto (Bld) [Volum e fraction]on 05-30-2022 Hematocrit (Bld) [Volume fraction] 34.1 % 40-54 [facility] Work Phone: Laboratory - Chemistry and C hemistry - challengeon 05-30-2022 ALP [Catalytic activity/Vol] 57 U/L 45-117 [facility] Work Phone: ALT [Catalytic activity/Vol] 34 U/L 16-61 [facility] Work Phone: CO2 [Moles/Vol] 26.0 mmol/L 21.0-32.0 [facility] Work Phone: Globulin (S) [Mass/Vol] 2.5 g/dL 2.2-4.2 [facility] Work Phone: Urea nitrogen/Creatinine [Mass ratio] 18.6 mg/mg 10-20 [facility] Work Phone: Laboratory - Hematology and Cell countson 05-30-2022 Erythrocyte distribution width (RBC) [Entitic vol] 40.7 fL 35.1-43.9 [facility] Work Phone: Erythrocyte distribution width (RBC) [Ratio] 11.8 % 11.6-14.6 [facility] Work Phone: Immature granulocytes/100 WBC (Bld) 0.200 % 0.0-0.9 [facility] Work Phone: Comment on above: IG% - Immature Granu locytes (promyelocytes, myelocytes and metamyelocytes) > 1% indicates that a LEFT SHIFT is Present. MCH (RBC) [Entitic mass] 33.4 pg 27.0-32.0 [facility] Work Phone: Nucleated RBC/100 WBC (Bld) [Ratio] 0 % 0-5 [facility] Work Phone: MCHC Auto (RBC) [Mass/Vol]on 05-30-2022 MCHC (RBC) [Mass/Vol] 35.2 g/dL 32-36 [facility] Work Phone: No Panel Informationon 05-30 Estimated Creatinine Clearance Calc 70.97 ml/min [facility] Work Phone: Estimated GFR (MDRD) Amer 144 mL/min >60 [facility] Work Phone: Comment on above: GFR Calc Estimated GFR (MDRD) Non-Af Amer 119 mL/min >60 [facility] Work Phone: Comment on above: Non- GFR Calc Platelets bldon 05-30-2022 Platelets (Bld) [#/Vol] 194 10*3/uL 150-450 [facility] Work Phone: Serum or plasma albumin juany urement (mass/volume)on 05-30-2022 Albumin [Mass/Vol] 3.5 g/dL 3.2-5.0 [facility] Work Phone: Serum or plasma albumin/glob ulin mass ratioon 05-30-2022 Albumin/Globulin [Mass ratio] 1.4 {ratio} 0.9-2.4 [facility] Work Phone: Serum or plasma calcium juany urement (mass/volume)on 05-30-2022 Calcium [Mass/Vol] 8.7 mg/dL 8.5-10.1 [facility] Work Phone: Serum or plasma cholesterol in HDL measurement (mass/volume)on 05-30-2022 Cholesterol in HDL [Mass/Vol] 65 mg/dL >40 [facility] Work Phone: Comment on above: The drugs N-Acetylcy steine and Metamizole may falsely depress this assay. Reference Range HDL <40 mg/dL Low HDL Cholesterol HDL >or= 60 mg/dL High HDL Cholesterol Serum or plasma cholesterol in VLDL measurement (mass/volume)on 05-30-2022 Cholesterol in VLDL [Mass/Vol] 19 mg/dL 5-40 [facility] Work Phone: Serum or plasma creatinine m easurement (mass/volume)on 05-30-2022 Creatinine [Mass/Vol] 0.70 mg/dL 0.70-1.30 [facility] Work Phone: Comment on above: The validity of the calculated GFR & GFRAA in patients over 70 years has not been determined. Clinical correlation is essential. Serum or plasma low density lipoprotein (LDL) cholesterol measurement (mass/volume)on 05-30-2022 Cholesterol in LDL [Mass/Vol] 20 mg/dL 0-130 [facility] Work Phone: Serum or plasma urea nitroge n measurement (mass/volume)on 05-30-2022 Urea nitrogen [Mass/Vol] 13 mg/dL 7-18 [facility] Work Phone: Thin prep Papanicolaou smear with manual screeningon 05-30-2022 Thin prep Papanicolaou smear with manual screening 20 U/L 15-37 [facility] Work Phone: Thin prep Papanicolaou smear with manual screening 5 5-15 [facility] Work Phone: Whole blood hemoglobin A1c/t otal hemoglobin ratio (mass fraction)on 05-30-2022 HbA1c (Bld) [Mass fraction] 5.7 % 3.8-5.6 [facility] Work Phone: Comment on above: Normal < 5.7 % Predi abetic 5.7 - 6.4 % Diabetic >or= 6.5 % Please note range changes. Absolute lymphocyte counton 05-29-2022 Lymphocytes Auto (Unsp spec) [#/Vol] 0.97 10*3/uL 0.83-4.51 [facility] Work Phone: Basophil percentageon 2021 Basophils/100 WBC (Bld) 0.6 % 0-1 [facility] Work Phone: Chloride [Moles/Vol] 103 mmol/L 98-107 [facility] Work Phone: Eosinophils/100 WBC (Bld) 1.0 % 0-5 [facility] Work Phone: Glucose [Mass/Vol] 162 mg/dL 74-106 [facility] Work Phone: Comment on above: Fasting Glucose resu lt greater than or equal to 126 mg/dL suggests DIABETES MELLITUS per A.D.A. criteria. Neutrophils (Bld) [#/Vol] 3.3 10*3/uL 2.0-7.7 [facility] Work Phone: Neutrophils/100 WBC (Bld) 68.0 % 47-70 [facility] Work Phone: Potassium [Moles/Vol] 3.8 mmol/L 3.5-5.1 [facility] Work Phone: Comment on above: Slight Hemolysis, Re sult may be falsely increased. Sodium [Moles/Vol] 133 mmol/L 136-145 [facility] Work Phone: WBC (Bld) [#/Vol] 4.9 10*3/uL 4.4-11.0 [facility] Work Phone: Blood erythrocytes count (nu mber/volume)on 05-29-2022 RBC (Bld) [#/Vol] 3.57 10*6/uL 4.6-6.2 [facility]: Blood hemoglobin measurement (mass/volume)on 05-29-2022 Hemoglobin (Bld) [Mass/Vol] 12.3 g/dL 13.0-16.5 [facility] Work Phone: Blood lymphocytes/100 leukoc yteson 05-29-2022 Lymphocytes/100 WBC (Bld) 19.8 % 19-41 [facility] Work Phone: Blood monocytes/100 leukocyt eson 05-29-2022 Monocytes/100 WBC (Bld) 10.4 % 0-10 [facility] Work Phone: Blood platelet mean volumeon 05-29-2022 Platelet mean volume (Bld) [Entitic vol] 9.5 fL 6.2-12.0 [facility] Work Phone: Determination of erythrocyte mean corpuscular volume (MCV)on 05-29-2022 MCV (RBC) [Entitic vol] 95.5 fL 80-94 [facility] Work Phone: Hematocrit Auto (Bld) [Volum e fraction]on 05-29-2022 Hematocrit (Bld) [Volume fraction] 34.1 % 40-54 [facility] Work Phone: Laboratory - Chemistry and C hemistry - challengeon 05-29-2022 CO2 [Moles/Vol] 24.0 mmol/L 21.0-32.0 [facility] Work Phone: Urea nitrogen/Creatinine [Mass ratio] 18.2 mg/mg 10-20 [facility] Work Phone: Laboratory - Hematology and Cell countson 05-29-2022 Erythrocyte distribution width (RBC) [Entitic vol] 41.2 fL 35.1-43.9 [facility] Work Phone: Erythrocyte distribution width (RBC) [Ratio] 11.7 % 11.6-14.6 [facility] Work Phone: Immature granulocytes/100 WBC (Bld) 0.200 % 0.0-0.9 [facility] Work Phone: Comment on above: IG% - Immature Granu locytes (promyelocytes, myelocytes and metamyelocytes) > 1% indicates that a LEFT SHIFT is Present. MCH (RBC) [Entitic mass] 34.5 pg 27.0-32.0 [facility] Work Phone: Nucleated RBC/100 WBC (Bld) [Ratio] 0 % 0-5 [facility] Work Phone: MCHC Auto (RBC) [Mass/Vol]on 05-29-2022 MCHC (RBC) [Mass/Vol] 36.1 g/dL 32-36 [facility] Work Phone: No Panel Informationon 05-29 Estimated Creatinine Clearance Calc 80.65 ml/min [facility] Work Phone: Estimated GFR (MDRD) Amer 110 mL/min >60 [facility] Work Phone: Comment on above: GFR Calc Estimated GFR (MDRD) Non-Af Amer 91 mL/min >60 [facility] Work Phone: Comment on above: Non- GFR Calc Troponin I High Sensitivity 21 pg/mL 3.0-78.0 [facility] Work Phone: Comment on above: Please Note: New Sylvia t Units and Gender Specific Reference Ranges. For more information see Policy Stat Procedure [place] High Sensitivity Troponin (TNIH) and attachments. Platelets bldon 05-29-2022 Platelets (Bld) [#/Vol] 171 10*3/uL 150-450 [facility] Work Phone: Serum or plasma calcium juany urement (mass/volume)on 05-29-2022 Calcium [Mass/Vol] 9.1 mg/dL 8.5-10.1 [facility] Work Phone: Serum or plasma creatinine m easurement (mass/volume)on 05-29-2022 Creatinine [Mass/Vol] 0.88 mg/dL 0.70-1.30 [facility] Work Phone: Comment on above: The validity of the calculated GFR & GFRAA in patients over 70 years has not been determined. Clinical correlation is essential. Serum or plasma urea nitroge n measurement (mass/volume)on 05-29-2022 Urea nitrogen [Mass/Vol] 16 mg/dL 7-18 [facility] Work Phone: Thin prep Papanicolaou smear with manual screeningon 05-29-2022 Thin prep Papanicolaou smear with manual screening 6 5-15 [facility] Work Phone: Vital Signs Date Time Vital Sign Value Performing Clinician Facility 05-07-2025 13:28-0400 Body height 177.[address] Sher Jules MD Work Phone: [phone] [place] [address] 05-07-2025 13:28-0400 Body mass index (BMI) [Ratio] 27.8 kg/m2 Dr. Sher Jules MD Work Phone: [phone] [facility] [place] [address] 05-07-2025 13:28-0400 Body weight 87.[address] Sher Jules MD Work Phone: 9(636)766-155186 [place] [address] 05-07-2025 13:28-0400 Diastolic blood pressure 71 mm[Hg] Dr. Sher Jules MD Work Phone: 5(156)580-593986 [place] [address] 05-07-2025 13:28-0400 Heart rate 57 /min Dr. Sher Jules MD Work Phone: 2(378)688-830486 [place] [address] 05-07-2025 13:28-0400 Respiratory rate 16 /min Dr. Sher Jules MD Work Phone: 0(455)859-833586 [place] [address] 05-07-2025 13:28-0400 SaO2% (BldA) [Mass fraction] 97 % Dr. Sher Jules MD Work Phone: 9(140)345-544486 [place] [address] 05-07-2025 13:28-0400 Systolic blood pressure 156 mm[Hg] Dr. Sher Jules MD Work Phone: 5(903)241-366780 [place] [address] 05-06-2025 14:05-0400 Body height 177.[address] Sher Jules MD Work Phone: 9(881)488-560380 [place] [address] 05-06-2025 14:05-0400 Body mass index (BMI) [Ratio] 28.4 kg/m2 Dr. Sher Jules MD Work Phone: 5(618)966-847980 [place] [address] 05-06-2025 14:05-0400 Body weight 89.[address] Sher Jules MD Work Phone: 5(945)147-605280 [place] [address] 04-30-2025 00:39-0400 Body temperature 97.9 [degF] Dr. Sher Jules MD Work Phone: 6(838)359-327880 [place] [address] 04-30-2025 00:39-0400 Diastolic blood pressure 70 mm[Hg] Dr. Sher Jules MD Work Phone: 9(966)943-018980 [place] [address] 04-30-2025 00:39-0400 Heart rate 85 /min Dr. Sher Jules MD Work Phone: 4(822)040-380180 [place] [address] 04-30-2025 00:39-0400 Respiratory rate 22 /min Dr. Sher Jules MD Work Phone: 0(319)105-402580 [place] [address] 04-30-2025 00:39-0400 SaO2% (BldA) [Mass fraction] 95 % Dr. Sher Jules MD Work Phone: 0(659)884-070180 [place] [address] 04-30-2025 00:39-0400 Systolic blood pressure 148 mm[Hg] Dr. Sher Jules MD Work Phone: 6(098)401-484180 [place] [address] 04-29-2025 22:27-0400 Body height 177.[address] Sher Jules MD Work Phone: 6(448)812-802280 [place] [address] 04-29-2025 22:27-0400 Body mass index (BMI) [Ratio] 28 kg/m2 Dr. Sher Jules MD Work Phone: [facility] 04-29-2025 22:27-0400 Body weight 88.[address] Sher Jules MD Work Phone: [facility] 04-14-2025 09:31-0400 Diastolic blood pressure 69 mm[Hg] Nikos Rivera MD Work Phone: [facility] 04-14-2025 09:31-0400 Heart rate 55 /min Nikos Rivera MD Work Phone: [facility] 04-14-2025 09:31-0400 Respiratory rate 16 /min Nikos Rivera MD Work Phone: [facility] 04-14-2025 09:31-0400 SaO2% (BldA) [Mass fraction] 94 % Nikos Rivera MD Work Phone: [facility] 04-14-2025 09:31-0400 Systolic blood pressure 146 mm[Hg] Nikos Rivera MD Work Phone: [facility] 04-14-2025 07:46-0400 Body temperature 98.1 [degF] Nikos Rivera MD Work Phone: [facility] 04-06-2025 09:12-0400 Diastolic blood pressure 65 mm[Hg] Nargis Benavidesle DO Work Phone: [facility] 04-06-2025 09:12-0400 Heart rate 56 /min Nargis Yin DO Work Phone: [facility] 04-06-2025 09:12-0400 SaO2% (BldA) [Mass fraction] 96 % Nargis Yin DO Work Phone: [facility] 04-06-2025 09:12-0400 Systolic blood pressure 116 mm[Hg] Nargis Yin DO Work Phone: [facility] 02-11-2025 08:53-0400 Body height 177.[address] Sher Jules MD Work Phone: [facility] 02-11-2025 08:53-0400 Body mass index (BMI) [Ratio] 27.5 kg/m2 Dr. Sher Jules MD Work Phone: [facility] 02-11-2025 08:53-0400 Body weight 87.[address] Sher Jules MD Work Phone: [facility] 02-11-2025 08:53-0400 Diastolic blood pressure 72 mm[Hg] Dr. Sher Jules MD Work Phone: [facility] 02-11-2025 08:53-0400 Heart rate 60 /min Dr. Sher Jules MD Work Phone: 1(333)010-510580 [place] [address] 02-11-2025 08:53-0400 Respiratory rate 16 /min Dr. Sher Jules MD Work Phone: 1(651)324-842480 [place] [address] 02-11-2025 08:53-0400 Systolic blood pressure 134 mm[Hg] Dr. Sher Jules MD Work Phone: 7(071)624-011086 [place] [address] 11-20-2024 08:58-0500 Body weight 88.[address] Sher Jules MD Work Phone: [facility] 11-13-2024 13:11-0500 Body mass index (BMI) [Ratio] 27.52 kg/m2 Sher Jules MD Work Phone: [facility] 11-13-2024 13:11-0500 Body weight 87 kg Sher Jules MD Work Phone: [facility] 11-13-2024 13:11-0500 Diastolic blood pressure 62 mm[Hg] Sher Juels MD Work Phone: [facility] 11-13-2024 13:11-0500 Heart rate 60 /min Sher Jules MD Work Phone: [facility] 11-13-2024 13:11-0500 Respiratory rate 16 /min Sher Jules MD Work Phone: [facility] 11-13-2024 13:11-0500 SaO2% (BldA) [Mass fraction] 98 % Sher Jules MD Work Phone: [facility] 11-13-2024 13:11-0500 Systolic blood pressure 132 mm[Hg] Sher Jules MD Work Phone: [facility] 09-30-2024 15:45-0500 Heart rate 53 /min Sergei Collins MD Work Phone: [facility] 09-30-2024 15:45-0500 Respiratory rate 17 /min Sergei Collins MD Work Phone: [facility] 09-30-2024 15:00-0500 Diastolic blood pressure 62 mm[Hg] Sergei Collins MD Work Phone: [facility] 09-30-2024 15:00-0500 Systolic blood pressure 166 mm[Hg] Sergei Collins MD Work Phone: [facility] 09-30-2024 12:33-0500 Body temperature 98.1 [degF] Sergei Collins MD Work Phone: [facility] 09-30-2024 12:33-0500 SaO2% (BldA) [Mass fraction] 99 % Sergei Collins MD Work Phone: [facility] 09-30-2024 10:10-0500 Body height 177.8 cm Sergei Collins MD Work Phone: [facility] 09-30-2024 10:10-0500 Body mass index (BMI) [Ratio] 27.12 kg/m2 Sergei Collins MD Work Phone: [facility] 09-30-2024 10:10-0500 Body weight 85.73 kg Sergei Collins MD Work Phone: [facility] 09-16-2024 14:09-0500 Body height 177.8 cm Sergei Collins MD Work Phone: [facility] 09-16-2024 14:09-0500 Body mass index (BMI) [Ratio] 27.12 kg/m2 Sergei Collins MD Work Phone: [facility] 09-16-2024 14:09-0500 Body weight 85.73 kg Sergei Collins MD Work Phone: [facility] 09-16-2024 14:09-0500 Diastolic blood pressure 64 mm[Hg] Sergei Collins MD Work Phone: [facility] 09-16-2024 14:09-0500 Heart rate 45 /min Sergei Collins MD Work Phone: [facility] 09-16-2024 14:09-0500 Systolic blood pressure 114 mm[Hg] Sergei Collins MD Work Phone: [facility] 09-11-2024 11:03-0500 Diastolic blood pressure 68 mm[Hg] Sher Jules MD Work Phone: [facility] Comment on above: true BP 09-11-2024 11:03-0500 Systolic blood pressure 149 mm[Hg] Sher Jules MD Work Phone: [facility] Comment on above: true BP 09-11-2024 10:54-0500 Body height 177.8 cm Sher Jules MD Work Phone: [facility] 09-11-2024 10:54-0500 Body mass index (BMI) [Ratio] 27.81 kg/m2 Sher Jules MD Work Phone: [facility] 09-11-2024 10:54-0500 Body temperature 97.2 [degF] Sher Jules MD Work Phone: [facility] 09-11-2024 10:54-0500 Body weight 87.9 kg Sher Jules MD Work Phone: [facility] 09-11-2024 10:54-0500 Heart rate 46 /min Sher Jules MD Work Phone: [facility] 09-11-2024 10:54-0500 SaO2% (BldA) [Mass fraction] 99 % Sher Jules MD Work Phone: [facility] 04-07-2024 08:47-0400 Diastolic blood pressure 65 mm[Hg] Nargis Yin DO Work Phone: [facility] 04-07-2024 08:47-0400 Heart rate 45 /min Nargis Yin DO Work Phone: [facility] 04-07-2024 08:47-0400 SaO2% (BldA) [Mass fraction] 98 % Nargis Yin DO Work Phone: [facility] 04-07-2024 08:47-0400 Systolic blood pressure 142 mm[Hg] Nargis Yin DO Work Phone: [facility] 04-06-2024 13:24-0400 Body mass index (BMI) [Ratio] 29.98 kg/m2 Bib Patterson MD Work Phone: [facility] 04-06-2024 13:24-0400 Body weight 92.08 kg Bib Patterson MD Work Phone: [facility] 04-06-2024 13:24-0400 Diastolic blood pressure 62 mm[Hg] Bib Patterson MD Work Phone: [facility] 04-06-2024 13:24-0400 Heart rate 48 /min Bib Patterson MD Work Phone: [facility] 04-06-2024 13:24-0400 SaO2% (BldA) [Mass fraction] 99 % Bib Patterson MD Work Phone: [facility] 04-06-2024 13:24-0400 Systolic blood pressure 143 mm[Hg] Bib Patterson MD Work Phone: [facility] 04-06-2024 10:16-0400 Body height 175.3 cm Gem Bass MD Work Phone: [facility] 04-06-2024 10:16-0400 Body mass index (BMI) [Ratio] 30.04 kg/m2 Gem Bass MD Work Phone: [facility] 04-06-2024 10:16-0400 Body weight 92.26 kg Gem Bass MD Work Phone: [facility] 04-06-2024 10:16-0400 Diastolic blood pressure 68 mm[Hg] Gem Bass MD Work Phone: [facility] 04-06-2024 10:16-0400 Heart rate 45 /min Gem Bass MD Work Phone: [facility] 04-06-2024 10:16-0400 Respiratory rate 19 /min Gem Bass MD Work Phone: [facility] 04-06-2024 10:16-0400 SaO2% (BldA) [Mass fraction] 98 % Gem Bass MD Work Phone: [facility] 04-06-2024 10:16-0400 Systolic blood pressure 122 mm[Hg] Gem Bass MD Work Phone: [facility] 03-11-2024 10:47-0400 Body height 170.2 cm Sher Jules MD Work Phone: [facility] 03-11-2024 10:47-0400 Body mass index (BMI) [Ratio] 31.64 kg/m2 Sher Jules MD Work Phone: [facility] 03-11-2024 10:47-0400 Body temperature 97.59 [degF] Sher Jules MD Work Phone: [facility] 03-11-2024 10:47-0400 Body weight 91.63 kg Sher Jules MD Work Phone: [facility] 03-11-2024 10:47-0400 Diastolic blood pressure 52 mm[Hg] Sher Jules MD Work Phone: [facility] 03-11-2024 10:47-0400 Heart rate 48 /min Sher Jules MD Work Phone: [facility] 03-11-2024 10:47-0400 Respiratory rate 16 /min Sher Jules MD Work Phone: [facility] 03-11-2024 10:47-0400 Systolic blood pressure 108 mm[Hg] Sher Jules MD Work Phone: [facility] 02-19-2024 14:49-0400 Body mass index (BMI) [Ratio] 30.8 kg/m2 Dr. Sher Jules Work Phone: [facility] 02-19-2024 14:49-0400 Body weight 94.[address] Sher Jules Work Phone: [facility] 02-19-2024 14:49-0400 Diastolic blood pressure 68 mm[Hg] Dr. Sher Jules Work Phone: [facility] 02-19-2024 14:49-0400 Heart rate 84 /min Dr. Sher Jules Work Phone: [facility] 02-19-2024 14:49-0400 Respiratory rate 14 /min Dr. Sher Jules Work Phone: [facility] 02-19-2024 14:49-0400 SaO2% (BldA) [Mass fraction] 98 % Dr. Sher Jules Work Phone: [facility] 02-19-2024 14:49-0400 Systolic blood pressure 123 mm[Hg] Dr. Sher Jules Work Phone: [facility] 02-19-2024 14:44-0400 Body height 177.[address] Sher Jules Work Phone: [facility] 02-10-2024 14:57-0400 Body weight 94.8 kg Bib Patterson MD Work Phone: [facility] 02-10-2024 14:57-0400 Diastolic blood pressure 68 mm[Hg] Bib Patterson MD Work Phone: [facility] 02-10-2024 14:57-0400 Heart rate 84 /min Bib Patterson MD Work Phone: [facility] 02-10-2024 14:57-0400 SaO2% (BldA) [Mass fraction] 99 % Bib Patterson MD Work Phone: [facility] 02-10-2024 14:57-0400 Systolic blood pressure 123 mm[Hg] Bib Patterson MD Work Phone: [facility] 02-07-2024 13:35-0400 Body weight 93.76 kg Sher Jules MD Work Phone: [facility] 02-07-2024 13:35-0400 Diastolic blood pressure 64 mm[Hg] Sher Jules MD Work Phone: [facility] 02-07-2024 13:35-0400 Heart rate 56 /min Sher Jules MD Work Phone: [facility] 02-07-2024 13:35-0400 Respiratory rate 16 /min Sher Jules MD Work Phone: [facility] 02-07-2024 13:35-0400 SaO2% (BldA) [Mass fraction] 99 % Sher Jules MD Work Phone: [facility] 02-07-2024 13:35-0400 Systolic blood pressure 126 mm[Hg] Sher Jules MD Work Phone: [facility] 01-30-2024 12:10-0400 SaO2% (BldA) [Mass fraction] 98 % Dr. Sher Jules Work Phone: [facility] 01-30-2024 11:56-0400 Body temperature 98 [degF] Dr. Sher Jules Work Phone: [facility] 01-30-2024 11:56-0400 Diastolic blood pressure 74 mm[Hg] Dr. Sher Jules Work Phone: [facility] 01-30-2024 11:56-0400 Heart rate 59 /min Dr. Sher Jules Work Phone: [facility] 01-30-2024 11:56-0400 Respiratory rate 15 /min Dr. Sher Jules Work Phone: 7(030)142-399135 [place] [address] 01-30-2024 11:56-0400 Systolic blood pressure 137 mm[Hg] Dr. Sher Jules Work Phone: 3(480)683-254280 [place] [address] 01-30-2024 06:00-0400 Inhaled oxygen flow rate 2 L/min Dr. Sher Jules Work Phone: 6(114)429-217180 [place] [address] 01-30-2024 05:29-0400 Body mass index (BMI) [Ratio] 33.2 kg/m2 Dr. Sher Jules Work Phone: 0(107)868-251080 [place] [address] 01-30-2024 05:29-0400 Body weight 102.[address] Sher Jules Work Phone: 8(453)753-274080 [place] [address] 01-29-2024 11:54-0400 Body height 175.[address] Sher Jules Work Phone: 9(720)722-998880 [place] [address] 01-28-2024 22:00-0400 Diastolic blood pressure 55 mm[Hg] Dr. Sher Jules Work Phone: 8(707)917-683880 [place] [address] 01-28-2024 22:00-0400 Heart rate 82 /min Dr. Sher Jules Work Phone: 3(966)970-460680 [place] [address] 01-28-2024 22:00-0400 Inhaled oxygen flow rate 8 L/min Dr. Sher Jules Work Phone: 8(594)985-478980 [place] [address] 01-28-2024 22:00-0400 Respiratory rate 13 /min Dr. Sher Jules Work Phone: 5(284)561-330380 [place] [address] 01-28-2024 22:00-0400 SaO2% (BldA) [Mass fraction] 94 % Dr. Sher Jules Work Phone: 6(135)420-229280 [place] [address] 01-28-2024 22:00-0400 Systolic blood pressure 122 mm[Hg] Dr. Sher Jules Work Phone: 3(680)431-910580 [place] [address] 01-28-2024 18:57-0400 Body temperature 98.2 [degF] Dr. Sher Jules Work Phone: [facility] 01-28-2024 17:52-0400 Body height 177.[address] Sher Jules Work Phone: [facility] 01-28-2024 17:52-0400 Body mass index (BMI) [Ratio] 32.1 kg/m2 Dr. Sher Jules Work Phone: [facility] 01-28-2024 17:52-0400 Body weight 101.[address] Sher Jules Work Phone: [facility] 2024 14:58-0400 Body weight 99.34 kg Barb Maximo [employer]END[employer] TEACHER Work Phone: [facility] 2024 14:58-0400 Diastolic blood pressure 68 mm[Hg] Barb Maximo [employer] ATTENDANT.ELEMENTARY ART TEACHER Work Phone: [facility] 2024 14:58-0400 Heart rate 70 /min Barb Maximo [employer] ATTENDANT.ELEMENTARY ART TEACHER Work Phone: [facility] 2024 14:58-0400 Respiratory rate 14 /min Barb Maximo [employer] ATTENDANT.ELEMENTARY ART TEACHER Work Phone: [facility] 2024 14:58-0400 Systolic blood pressure 136 mm[Hg] Barb Maximo [employer] ATTENDANT.ELEMENTARY ART TEACHER Work Phone: [facility] 05-06-2023 15:18-0400 Body height 170.2 cm Bib Patterson MD Work Phone: [facility] 05-06-2023 15:18-0400 Body weight 101.24 kg Bib Patterson MD Work Phone: [facility] 05-06-2023 15:18-0400 Diastolic blood pressure 78 mm[Hg] Bib Patterson MD Work Phone: [facility] 05-06-2023 15:18-0400 Heart rate 59 /min Bib Patterson MD Work Phone: [facility] 05-06-2023 15:18-0400 SaO2% (BldA) [Mass fraction] 98 % Bib Patterson MD Work Phone: [facility] 05-06-2023 15:18-0400 Systolic blood pressure 156 mm[Hg] Bib Patterson MD Work Phone: [facility] 04-01-2023 10:21-0400 Body temperature 97.2 [degF] Trevor Robison MD Work Phone: [facility] 04-01-2023 10:21-0400 Body weight 101.7 kg Trevor Robison MD Work Phone: [facility] 04-01-2023 10:21-0400 Diastolic blood pressure 70 mm[Hg] Trevor Robison MD Work Phone: [facility] 04-01-2023 10:21-0400 Heart rate 60 /min Trevor Robison MD Work Phone: [facility] 04-01-2023 10:21-0400 SaO2% (BldA) [Mass fraction] 96 % Trevor Robison MD Work Phone: [facility] 04-01-2023 10:21-0400 Systolic blood pressure 132 mm[Hg] Trevor Robison MD Work Phone: [facility] 03-20-2023 14:11-0400 Diastolic blood pressure 56 mm[Hg] Thompson Monzon MD Work Phone: [facility] 03-20-2023 14:11-0400 Heart rate 60 /min Thompson Monzon MD Work Phone: [facility] 03-20-2023 14:11-0400 SaO2% (BldA) [Mass fraction] 95 % Thompson Monzon MD Work Phone: [facility] 03-20-2023 14:11-0400 Systolic blood pressure 140 mm[Hg] Thompson Monzon MD Work Phone: [facility] 02-06-2023 09:53-0400 Diastolic blood pressure 69 mm[Hg] Sher Jules MD Work Phone: [facility] 02-06-2023 09:53-0400 Heart rate 59 /min Sher Jules MD Work Phone: [facility] 02-06-2023 09:53-0400 Systolic blood pressure 154 mm[Hg] Sher Jules MD Work Phone: [facility] 02-06-2023 09:51-0400 Body weight 101.61 kg Sher Jules MD Work Phone: [facility] 02-06-2023 09:51-0400 Respiratory rate 16 /min Sher Jules MD Work Phone: [facility] 01-15-2023 09:03-0400 Body height 177.8 cm Nargis Yin DO Work Phone: [facility] 01-15-2023 09:03-0400 Body weight 102.51 kg Nargis Yin DO Work Phone: [facility] 01-15-2023 09:03-0400 Diastolic blood pressure 64 mm[Hg] Nargis Yin DO Work Phone: [facility] 01-15-2023 09:03-0400 Heart rate 60 /min Nargis Yin DO Work Phone: [facility] 01-15-2023 09:03-0400 SaO2% (BldA) [Mass fraction] 97 % Nargis Yin DO Work Phone: [facility] 01-15-2023 09:03-0400 Systolic blood pressure 132 mm[Hg] Nargis Yin DO Work Phone: [facility] 10-03-2022 13:16-0500 Diastolic blood pressure 70 mm[Hg] Jules Dukes MD Work Phone: [facility] 10-03-2022 13:16-0500 Systolic blood pressure 140 mm[Hg] Jules Dukes MD Work Phone: [facility] 10-03-2022 13:02-0500 Body height 177.8 cm Jules Dukes MD Work Phone: [facility] 10-03-2022 13:02-0500 Body weight 103.87 kg Jules Dukes MD Work Phone: [facility] 10-03-2022 13:02-0500 Heart rate 66 /min Jules Dukes MD Work Phone: [facility] 10-03-2022 13:02-0500 SaO2% (BldA) [Mass fraction] 96 % Jules Dukes MD Work Phone: [facility] 10-01-2022 09:21-0500 Body height 177.8 cm Trevor Robison MD Work Phone: [facility] 10-01-2022 09:21-0500 Body weight 104.78 kg Trevor Robison MD Work Phone: [facility] 10-01-2022 09:21-0500 Diastolic blood pressure 63 mm[Hg] Trevor Robison MD Work Phone: [facility] 10-01-2022 09:21-0500 Heart rate 75 /min Trevor Robison MD Work Phone: [facility] 10-01-2022 09:21-0500 Systolic blood pressure 124 mm[Hg] Trevor Robison MD Work Phone: [facility] 09-05-2022 15:24-0500 Body height 177.8 cm Jules Dukes MD Work Phone: [facility] 09-05-2022 15:24-0500 Body weight 106.14 kg Jules Dukes MD Work Phone: [facility] 09-05-2022 15:24-0500 Diastolic blood pressure 74 mm[Hg] Jules Dukes MD Work Phone: [facility] 09-05-2022 15:24-0500 Heart rate 66 /min Jules Dukes MD Work Phone: [facility] 09-05-2022 15:24-0500 Respiratory rate 16 /min Jules Dukes MD Work Phone: [facility] 09-05-2022 15:24-0500 SaO2% (BldA) [Mass fraction] 96 % Jules Dukes MD Work Phone: [facility] 09-05-2022 15:24-0500 Systolic blood pressure 186 mm[Hg] Jules Dukes MD Work Phone: [facility] 07-18-2022 09:46-0400 Diastolic blood pressure 70 mm[Hg] Barb Older [employer] ATTENDANT.ELE[employer]ARY [employer] TEACHER Work Phone: [facility] 07-18-2022 09:46-0400 Heart rate 57 /min Barb Older [employer] ATTENDANT.ELEMENTARY ART TEACHER Work Phone: [facility] 07-18-2022 09:46-0400 Systolic blood pressure 126 mm[Hg] Barb Older [employer] ATTENDANT.ELEMENTARY ART TEACHER Work Phone: [facility] 07-18-2022 09:18-0400 Body temperature 96.91 [degF] Barb Older [employer] ATTENDANT.ELEMENTARY ART TEACHER Work Phone: [facility] 07-18-2022 09:18-0400 Body weight 103.87 kg Barb Older [employer] ATTENDANT.ELEMENTARY ART TEACHER Work Phone: [facility] 06-28-2022 10:55-0400 Diastolic blood pressure 67 mm[Hg] Mi Nurse Work Phone: [facility] 06-28-2022 10:55-0400 Heart rate 57 /min Mi Nurse Work Phone: [facility] 06-28-2022 10:55-0400 Systolic blood pressure 143 mm[Hg] Mi Nurse Work Phone: [facility] 06-11-2022 18:59-0400 Diastolic blood pressure 68 mm[Hg] Sher Jules MD Work Phone: [facility] 06-11-2022 18:59-0400 Heart rate 57 /min Sher Jules MD Work Phone: [facility] 06-11-2022 18:59-0400 Systolic blood pressure 172 mm[Hg] Sher Jules MD Work Phone: [facility] 06-11-2022 18:41-0400 Body temperature 97.3 [degF] Sher Jules MD Work Phone: [facility] 06-11-2022 18:41-0400 Body weight 105.14 kg Sher Jules MD Work Phone: [facility] 06-11-2022 18:41-0400 Respiratory rate 18 /min Sher Jules MD Work Phone: [facility] 05-30-2022 15:55-0400 Body temperature 98 [degF] Dr. Sher Jules Work Phone: [facility] Work Phone: 05-30-2022 15:55-0400 Diastolic blood pressure 63 mm[Hg] Dr. Sher Jules Work Phone: [facility] Work Phone: 05-30-2022 15:55-0400 Heart rate 83 /min Dr. Sher Jules Work Phone: [facility] Work Phone: 05-30-2022 15:55-0400 Respiratory rate 16 /min Dr. Sher Jules Work Phone: [facility] Work Phone: 05-30-2022 15:55-0400 SaO2% (BldA) [Mass fraction] 96 % Dr. Sher Jules Work Phone: [facility] Work Phone: 05-30-2022 15:55-0400 Systolic blood pressure 155 mm[Hg] Dr. Sher Jules Work Phone: [facility] Work Phone: 05-30-2022 09:36-0400 Body height 177.[address] Sher Jules Work Phone: [facility] Work Phone: 05-30-2022 09:36-0400 Body weight 104.[address] Sher Jules Work Phone: [facility] Work Phone: 05-30-2022 08:50-0400 Body mass index (BMI) [Ratio] 33 kg/m2 Dr. Sher Jules Work Phone: [facility] Work Phone: 05-30-2022 01:19-0400 [facility] [facility] Work Phone: 05-30-2022 01:19-0400 Body mass index (BMI) [Ratio] 33 kg/m2 [facility] Work Phone: 05-30-2022 01:19-0400 Body weight 104.6 kg [facility] Work Phone: 05-30-2022 00:47-0400 Body temperature 97.8 [degF] [facility] Work Phone: 05-30-2022 00:47-0400 Diastolic blood pressure 85 mm[Hg] [facility] Work Phone: 05-30-2022 00:47-0400 Heart rate 70 /min [facility] Work Phone: 05-30-2022 00:47-0400 Respiratory rate 16 /min [facility] Work Phone: 05-30-2022 00:47-0400 SaO2% (BldA) [Mass fraction] 94 % [facility] Work Phone: 05-30-2022 00:47-0400 Systolic blood pressure 171 mm[Hg] [facility] Work Phone: 03-27-2022 08:22-0400 Body height 172 cm Nargis Yin judge.me Work Phone: [facility] 03-27-2022 08:22-0400 Body weight 105.23 kg Nargis Yin DO Work Phone: [facility] 03-27-2022 08:22-0400 Diastolic blood pressure 58 mm[Hg] Nargis Yin DO Work Phone: [facility] 03-27-2022 08:22-0400 Heart rate 62 /min Nargis Yin DO Work Phone: [facility] 03-27-2022 08:22-0400 SaO2% (BldA) [Mass fraction] 96 % Nargis Yin DO Work Phone: [facility] 03-27-2022 08:22-0400 Systolic blood pressure 142 mm[Hg] Nargis Yin DO Work Phone: [facility] Encounters Encounter Date Encounter Type Care Provider Facility Start: 05-07-2025 End: 05-07-[address] Nic Rodriguez MD -[facility] Work Phone: Start: 05-07-2025 End: 05-07-[address] Sher Jules MD Work Phone: [facility] Start: 05-06-2025 End: 05-06-[address] Nain Segundo MD -[facility] Start: 05-06-2025 End: 05-06-[address] Sher Jules MD Work Phone: -[facility] Start: 04-29-2025 End: 04-30-2025 Emergency department patient visit Dr. Sher Jules MD Work Phone: -Emergency Department Work Phone: Start: 04-22-2025 End: 04-22-2025 Patient encounter procedure Elvie Monterroso APRN.ELEMENTARY ART TEACHER Work Phone: General Surgery Comment on above: Gastritis and duoden itis (Primary Dx); Gastroesophageal reflux disease with esophagitis without hemorrhage; Adenomatous polyp of colon, unspecified part of colon Start: 04-22-2025 End: 04-22-2025 ambulatory SHER JULES Facility:[facility] Start: 04-14-2025 ambulatory SHER bhagat:[facility] Start: 04-14-2025 End: 04-14-2025 Subsequent hospital visit by physician Nikos Rivera MD Work Phone: Ambulatory Surgery Comment on above: Anemia, unspecified type [D64.9] Start: 04-06-2025 End: 04-06-2025 Patient encounter procedure Nargis Yin DO Work Phone: Vascular Surgery Comment on above: Peripheral arterial disease (Primary Dx) Start: 04-06-2025 End: 04-06-2025 ambulatory NARGIS YIN Facility:[facility] Start: 04-01-2025 End: 04-01-2025 Follow-up encounter Sher Jules MD Work Phone: [facility] Start: 03-31-2025 End: 03-31-2025 ambulatory SHER JULES Facility:[facility] Start: 03-18-2025 End: 03-18-2025 ambulatory ELVIE MONTERROSO Facility:[facility] Start: 03-16-2025 End: 03-16-2025 ambulatory SHER JULES Facility:[facility] Start: 03-16-2025 End: 03-16-2025 ambulatory SHER JULES Facility:[facility] Start: 03-16-2025 Patient encounter procedure BARB SUGGS [facility] Start: 03-15-2025 End: 03-15-2025 ambulatory SHER JULES Facility:[facility] Start: 03-12-2025 Non-patient / Non-visit Naz MONAHAN -[facility] Work Phone: Start: 03-12-2025 ambulatory Naz Cox Facility: [facility] Start: 03-11-2025 Non-patient / Non-visit Dr. Rubio head MD -[facility] Start: 03-11-2025 End: 03-11-[address] Sher Jules MD Work Phone: [facility] Work Phone: Start: 03-11-2025 End: 03-11-[address] Rubio Simeon MD -Cardiovascular Services Work Phone: Start: 03-11-2025 End: 03-11-2025 ambulatory Rubio [facility] Facility:[facility] Start: 03-04-2025 End: 03-04-2025 Refill Bib Patterson [...] Start: 02-23-2025 End: 02-23-2025 ambulatory GOMEZ MCCABEMIGUEL Facility:[facility] Start: 02-11-2025 End: 02-11-[address] Rubio iSmeon MD -[facility] Work Phone: Start: 02-11-2025 End: 02-11-2025 ambulatory Sher Jules Facility:[facility] Start: 02-01-2025 End: 02-01-2025 Refill Sher Jules MD Work Phone: [facility] [place] Comment on above: Refill Request Start: 12-08-2024 ambulatory [facility] Facility:[facility] Start: 11-20-2024 End: 11-27-2024 ambulatory [facility] Facility:[facility] Start: 11-20-2024 End: 11-27-[address] Rubio Simeon MD -Cardiac Rehab Work Phone: Start: 11-19-2024 End: 11-19-2024 ambulatory SHER JULES Facility:[facility] Start: 11-19-2024 End: 11-19-2024 Patient encounter procedure Gomez Schwab Work Phone: Podiatry Comment on above: Onychomycosis (Prima ry Dx); Pain in toe of left foot; Pain in toe of right foot; Diabetic polyneuropathy associated with type 2 diabetes mellitus (HCC); PAD (peripheral artery disease) (HCC) Start: 11-13-2024 End: 11-13-2024 Office outpatient visit 25 minutes Sher Jules MD Work Phone: [facility] [place] Comment on above: Diabetic peripheral neuropathy (HCC) (Primary Dx); Essential hypertension; Anemia, unspecified type; Well controlled type 2 diabetes mellitus with neurological manifestations (HCC); S/P drug eluting coronary stent placement Start: 11-13-2024 End: 11-13-2024 ambulatory SHER JULES Facility:[facility] Start: 11-11-2024 End: 11-11-2024 ambulatory Palak Rosales LPN [facility] Start: 10-26-2024 End: 10-27-2024 ambulatory Rubio Blanco Facility:[facility] Start: 10-19-2024 End: 10-20-2024 Orders Only Sher Jules MD Work Phone: [facility] [place] Comment on above: Hyponatremia (Primar y Dx); Anemia, unspecified type Start: 10-14-2024 ambulatory Karl Wan [facility] Start: 10-14-2024 End: 10-14-2024 ambulatory Rubio Blanco Facility:[facility] Start: 10-12-2024 End: 10-12-2024 ambulatory Tootie Chu LAUNDRY ROUTEMAN Facility:[facility] Start: 10-12-2024 End: 10-12-2024 ambulatory Tootie Chu LAUNDRY ROUTEMAN Facility:[facility] Start: 10-06-2024 End: 10-06-2024 ambulatory SHER JULES Facility:[facility] Start: 09-30-2024 End: 09-30-2024 Orders Only Xochitl Solano APRN - ELEMENTARY ART TEACHER Work Phone: [facility] Card[facility] Comment on above: Coronary artery dise ase involving [facility] coronary artery of [place] heart without angina pectoris (Primary Dx); Primary hypertension Stented coronary art martina (Primary Dx); Coronary artery disease involving [facility] coronary artery of [facility] heart without angina pectoris; Angina pectoris, unstable (CMS/HCC) (HCC) Start: 09-29-2024 End: 09-29-2024 ambulatory Bárbara Burton APRZunilda Whiteside CNP Work Phone: [facility] Start: 09-28-2024 End: 09-28-2024 ambulatory Rubio Blanco Facility:[facility] Start: 09-23-2024 End: 09-23-2024 ambulatory Rubio Blanco Facility:[facility] Start: 09-16-2024 End: 09-16-2024 Office outpatient new 45 minutes Sergei Collins MD Work Phone: [facility] Comment on above: Shortness of breath (Primary Dx); Coronary artery disease involving [facility] coronary artery of [facility] heart without angina pectoris; Stented coronary artery; S/P CABG x 3; Family history of chronic ischemic heart disease; Diabetes mellitus type 2 in nonobese (CMS/HCC) ([facility]); Primary hypertension; Mixed hyperlipidemia Start: 09-16-2024 End: 09-16-2024 ambulatory SERGEI KARINA [facility] Start: 09-15-2024 End: 09-15-2024 Telephone encounter Sher Jules MD Work Phone: [facility] [place] Comment on above: Medication Update Start: 09-14-2024 End: 09-15-2024 Telephone encounter Sher Jules MD Work Phone: [facility] [place] Comment on above: Results Start: 09-14-2024 End: 09-14-2024 ambulatory Rubio Blanco Facility:[facility] Start: 09-13-2024 End: 09-13-2024 Orders Only Sher Jules MD Work Phone: [facility] [place] Comment on above: Hyponatremia (Primar y Dx); Hyperkalemia; Anemia, unspecified type Start: 09-11-2024 End: 09-11-2024 ambulatory SHER JULES Facility:[facility] Start: 09-11-2024 End: 09-11-2024 Office outpatient visit 25 minutes Sher Jules MD Work Phone: [facility] [place] Comment on above: Coronary artery dise ase involving [facility] coronary artery of [facility] heart without angina pectoris (Primary Dx); Stented coronary artery; Essential hypertension; Hyperlipidemia with target LDL less than 70; Well controlled type 2 diabetes mellitus with neurological manifestations (HCC) Start: 07-03-2024 ambulatory Sher Jules Facili ty:[facility] Start: 07-02-2024 End: 07-03-2024 Refill Barb Suggs APRN.ELEMENTARY ART TEACHER Work Phone: [facility] [place] Comment on above: Refill Request Start: 06-30-2024 [...] Start: 06-26-2024 End: 06-26-2024 ambulatory GOMEZ SCHWAB Facility:[facility] Start: 06-23-2024 End: 06-23-2024 ambulatory Sher Jules Facility:[facility] Start: 06-16-2024 End: 06-16-2024 Refill Barb Suggs APRN.ELEMENTARY ART TEACHER Work Phone: [facility] [place] Comment on above: Refill Request Start: 06-08-2024 ambulatory Sher Jules Facili ty:[facility] Start: 06-08-2024 End: 06-08-2024 ambulatory Sher Jules Facility:[facility] Start: 06-07-2024 ambulatory Sher Jules Facili ty:[facility] Start: 05-28-2024 End: 05-28-2024 ambulatory Sher Jules Facility:[facility] Start: 05-27-2024 End: 05-27-2024 ambulatory Sher Jules Facility:[facility] Start: 04-07-2024 End: 04-07-2024 Patient encounter procedure Nargis Yin DO Work Phone: Vascular Surgery Comment on above: Peripheral arterial disease (HCC) (Primary Dx) Start: 04-06-2024 End: 04-06-2024 Patient encounter procedure Bib Patterson MD Work Phone: Cardiology Comment on above: Essential hypertensi on (Primary Dx); Hyperlipidemia with target LDL less than 70; Hx of CABG; Coronary artery disease involving [facility] coronary artery of [facility] heart without angina pectoris Start: 04-06-2024 End: 04-06-2024 Patient encounter procedure Gem Bass MD Work Phone: General Surgery Comment on above: Special screening fo r malignant neoplasms, colon; History of colonic polyps; Coronary artery disease involving [facility] coronary artery of [facility] heart, unspecified whether angina present Start: 03-13-2024 End: 03-13-2024 Patient encounter procedure Gomez Schwab Work Phone: Podiatry Comment on above: Onychomycosis (Prima ry Dx); Pain in toe of left foot; Pain in toe of right foot; PAD (peripheral artery disease) (HCC); Diabetic polyneuropathy associated with type 2 diabetes mellitus (HCC) Start: 03-12-2024 [facility] ili:[facility] Start: 03-12-2024 [facility] Start: 03-12-2024 End: 03-12-2024 Subsequent hospital visit by physician [facility] Work Phone: Cardiology Lab Comment on above: CORONARY ARTERIOSCLE ROSIS Start: 03-12-2024 End: 03-12-2024 Subsequent hospital visit by physician [facility] 2 Work Phone: Molecular Imaging Comment [...] artery disease) (HCC); Coronary artery disease involving [facility] coronary artery of [facility] heart without angina pectoris; Hyperlipidemia with target LDL less than 70; Benign neoplasm of colon, unspecified part of colon Start: 02-25-2024 Refill Sher lea MD Work Phone: [facility] [place] Comment on above: Refill Request Start: 02-24-2024 End: 02-25-[address] Sher Jules Work Phone: [facility] Work Phone: Start: 02-24-2024 End: 02-25-[address] Sher Jules Work Phone: [facility]-Cardiac Rehab Work Phone: Start: 02-24-[address] Jaylon Jules Work Phone: [facility]-Cardiac Rehab Work Phone: Start: 02-19-2024 End: 02-19-[address] Sher Jules Work Phone: [facility] Work Phone: Start: 02-19-2024 End: 02-19-[address] Sher Jules Work Phone: [facility]-Cardiac Rehab Work Phone: Start: 02-10-2024 End: 02-10-2024 Patient encounter procedure Bib Patterson MD Work Phone: Cardiology Comment on above: Coronary arterioscle rosis after percutaneous transluminal coronary angioplasty (PTCA) (Primary Dx); Essential hypertension; PAD (peripheral artery disease) ([facility]) Start: 02-07-2024 End: 02-07-2024 Patient encounter procedure Sher Jules MD Work Phone: Internal [facility] Comment on above: Non-STEMI (non-ST el evated myocardial infarction) ([facility]) (Primary Dx); S/P CABG x 3; Essential hypertension; Hyperlipidemia with target LDL less than 70; Well controlled type 2 diabetes mellitus with neurological manifestations (HCC); PAD (peripheral artery disease) (HCC); Abnormality of lung on CXR; Obesity, Class I, BMI 30-34.9 Start: 02-03-2024 Admission to [facility] Sher Jules MD Work Phone: Ambulatory Surgery Comment on above: colorectal cancer sc reening Start: 02-03-2024 ambulatory Sher lea MD Work Phone: Ambulatory Surgery Start: 01-31-2024 Patient Outreach Sher ace MD Work Phone: [facility] [place] Comment on above: Transition Of Care Start: 01-30-2024 Telephone encounter Bib Patterson MD Work Phone: Cardiology Comment on above: PT HOSPITALIZED Start: 01-30-2024 Non-patient / Non-visit Dr. Maria E Jules Work Phone: [facility] Start: 01-30-2024 Non-patient / Non-visit Dr. Maria E Jules Work Phone: [facility] Work Phone: Start: 01-29-2024 Non-patient / Non-visit Dr. Maria E Jules Work Phone: [facility] Work Phone: Start: 01-29-2024 Non-patient / Non-visit Dr. Maria E Jules Work Phone: [facility] Start: 01-28-2024 End: 01-30-2024 Evaluation and management of inpatient Dr. Sher Jules Work Phone: [facility]-Intensive Care Unit Work Phone: Start: 01-28-2024 Non-patient / Non-visit Dr. Maria E Jules Work Phone: [facility] Work Phone: Start: 2024 End: [...] Start: 10-31-2023 End: 10-31-2023 Patient encounter procedure Gomze Schwab Work Phone: Podiatry Comment on above: Onychomycosis (Prima ry Dx); Pain in toe of left foot; Pain in toe of right foot; Well controlled type 2 diabetes mellitus with neurological manifestations (HCC); PAD (peripheral artery disease) (HCC); Hyperkeratosis; Ingrowing toenail with infection Start: 09-29-2023 Refill Nargis [place] Work Phone: Vascular Surgery Comment on above: Refill Request Start: 09-10-2023 ambulatory Veroinca Sierra [facility] [place] Comment on above: Population Health Na vigation Outreach ([facility]) Start: 08-09-2023 End: 08-09-2023 Patient encounter procedure Sher Jules MD Work Phone: [facility] [place] Comment on above: Obesity, Class II, B NV 35-39.9 (Primary Dx); Coronary artery disease involving [facility] coronary artery of [facility] george heart without angina pectoris; PAD (peripheral artery [...] disease (Primary Dx); Coronary artery disease involving [facility] coronary artery of [facility] george heart without angina pectoris; Hx of CABG; [...] End: 02-14-2023 Subsequent hospital visit by physician [facility] Radiology Comment on above: Peripheral vascular disease (HCC) [I73.9] Start: 02-06-2023 End: 02-06-2023 Patient encounter procedure Sher Jules MD Work Phone: [facility] [place] Comment on above: Well controlled type 2 diabetes mellitus with neurological manifestations (HCC) (Primary Dx); Essential hypertension; Hyperlipidemia with target LDL less than 70; PAD (peripheral artery disease) (HCC) Start: 02-04-2023 Telephone encounter Sher armas MD Work Phone: [facility] [place] Comment on above: Med Change Request Start: 01-31-2023 Patient Msg [facility] Provider [facility] [place] Comment on above: Refill request Start: 01-30-2023 Refill Barb Older LOCKER PLANT ATTENDANT .ELEMENTARY ART TEACHER Work Phone: [facility] [place] Comment on above: Refill Request Start: 01-16-2023 Refill Barb Older LOCKER PLANT ATTENDANT .ELEMENTARY ART TEACHER Work Phone: [facility] [place] Comment on above: Refill Request Start: 01-15-2023 [...] Medication Request Start: 10-23-2022 Refill Tara Older LOCKER PLANT ATTENDANT .ELEMENTARY ART TEACHER Work Phone: [facility] [place] Comment on above: Refill Request Start: 10-10-2022 ambulatory Veronica [facility] [place] Comment on above: Population Health Na vigation Outreach ([facility]SA) Start: 10-03-2022 End: 10-03-2022 Patient encounter procedure Jules Dukes MD Work Phone: Cardiology Comment on above: Primary hypertension (Primary Dx); Coronary artery disease involving [facility] coronary artery of [facility] 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 coronary artery of [facility] heart without angina pectoris (Primary Dx); Essential hypertension; S/P CABG x 3; Central retinal artery occlusion of left eye Start: 07-18-2022 End: 07-18-2022 Patient encounter procedure Barb Leon APRNBradELEMENTARY ART TEACHER Work Phone: [facility] [place] Comment on above: Essential hypertensi on (Primary [...] Sher lea MD Work Phone: [facility] [place] Comment on above: Refill Request Start: 06-11-2022 End: 06-11-2022 Patient encounter procedure Sher Jules MD Work Phone: [facility] [place] Comment on above: Hyperlipidemia with target LDL less than 70 (Primary Dx); Essential hypertension; Well controlled type 2 diabetes mellitus with neurological manifestations (HCC); Branch retinal artery occlusion, left; S/P CABG x 3 Start: 06-05-2022 Telephone encounter Sher armas MD Work Phone: Internal [facility] Comment on above: Appointment Start: 05-30-2022 Non-patient / Non-visit Dr. Maria E Jules Work Phone: [facility] Start: 05-30-2022 Non-patient / Non-visit Dr. Maria E Jules Work Phone: [facility] Start: 05-30-2022 End: 05-30-2022 Evaluation and management of inpatient [facility] Care Unit Start: 05-29-2022 Telephone encounter Sher armas MD Work Phone: [facility] Comment on above: Dr. Christian gil (Nutrition Faculty Member) Start: 05-02-2022 End: 05-02-2022 Patient encounter procedure [...] Refill Sher lea MD Work Phone: Internal [facility] Comment on above: Refill Request Procedures Date Procedure Procedure Detail Performing Clinician Start: 05-06-2025 Plain x-ray of hand Dr. Sher Jules MD Work Phone: Start: 04-29-2025 CT of head without contrast Dr. Sher Jules MD Work Phone: Start: 04-14-2025 Colonoscopy flx dx w/collj spec when pfrmd Elvie Monterroso LOCKER PLANT ATTENDANT.ELEMENTARY ART TEACHER Work Phone: Start: 04-14-2025 Esophagogastroduodenoscopy transoral diagnostic Elvie Monterroso LOCKER PLANT ATTENDANT.ELEMENTARY ART TEACHER Work Phone: Start: 04-14-2025 Gluc bld gluc [...] serum plasma/whole blood Lawanda on B [place] LOCKER PLANT ATTENDANT - ELEMENTARY ART TEACHER Work Phone: Start: 09-16-2024 Ecg routine ecg w/least 12 lds w/i&r Sergei Collins MD Work Phone: Start: 03-12-2024 Myocardial spect multiple studies Bib Patterson MD Work Phone: Start: 03-11-2024 Adult depression screening assessment Barb Suggs LOCKER PLANT ATTENDANT.ELEMENTARY ART TEACHER Work Phone: Start: 01-28-2024 CT angiography of chest with contrast Dr. Sher Jules Work Phone: Start: 01-28-2024 Plain chest X-ray Dr. Sher Jules Work Phone: Start: 2024 Radex wrist complete minimum 3 views Barb Suggs LOCKER PLANT ATTENDANT.ELEMENTARY ART TEACHER Work Phone: Start: 10-31-2023 Cul bact xcpt urine blood/stool aerobic isol Gomez Testke Work Phone: Start: 02-14-2023 Cta abdl aorta&bi iliofem w/contrast&postp Nargis D Yin DO Work Phone: Start: 09-05-2022 Ecg routine ecg w/least 12 lds i&r only [facility] Provider Start: 07-18-2022 INFLUENZA SEASONAL QUADRIVALENT HIGH DOSE AGE 65+ Barb Older LOCKER PLANT ATTENDANT.ELEMENTARY ART TEACHER Work Phone: Start: 07-18-2022 Adult depression screening assessment Barb Older LOCKER PLANT ATTENDANT.ELEMENTARY ART TEACHER Work Phone: Start: 05-30-2022 MRI of brain [...] DTaP/Tdap/Td Vaccines (3 - Td or Tdap) [facility] Start: 08-04-2032 [facility] Start: 04-14-2030 Screening for malignant neoplasm of colon [facility] Start: 04-06-2026 BP Controlled (<130/80) BP Controlled (<130/80) [facility] Start: 04-05-2026 End: 04-05-2026 Patient encounter procedure Vasculary Ramirez mario Comment on above: Peripheral arterial disease [I73.9] 1 year follow up aft er testing Start: 03-29-2026 Glaucoma screening Dilated Retinal Exam [facility] Start: 03-18-2026 BP Controlled (<130/80) BP Controlled (<130/80) [facility] Start: 03-17-2026 Screening for malignant neoplasm of colon Fecal Occult Blood [facility] Start: 03-16-2026 Annual PCP Team Chronic Disease Visit Annual PCP Team Chronic Disease Visit [facility] Start: 03-16-2026 Anxiety Screening Anxiety Screening [facility] Start: 03-16-2026 Depression Screening Depression Screening [facility] Start: 03-16-2026 Medicare Annual Wellness Visit Medicare Annual Wellness Visit [facility] Start: 11-13-2025 Annual PCP Team Chronic Disease Visit Annual PCP Team Chronic Disease Visit [facility] Start: 09-16-2025 End: 09-16-2025 Patient encounter procedure 09/16/2025 9:40 AM EST Office Visit [facility] [address] [place] [id number] Sher Jules MD [address] [place] [id number] follow up 6 months [facility] Comment on above: follow up 6 months Start: 09-15-2025 Hemoglobin A1c measurement [facility]C [facility] Start: 09-11-2025 Annual PCP Team Chronic Disease Visit Annual PCP Team Chronic Disease Visit [facility] Start: 09-11-2025 Diabetes: Urine Albumin-Creatinine Ratio for [facility] Diabetes: Urine Albumin-Creatinine Ratio for [facility] Start: 09-11-2025 Diabetic foot examination Diabetic Foot Exam [facility] Start: 09-11-2025 Hemoglobin A1c measurement Diabetes: Hemoglobin A1C [facility] Start: 09-11-2025 Hepatitis B screening Urine Albumin:Creatinine Ratio [facility] Start: 09-11-2025 Hepatitis B surface antibody level LDL Cholesterol [facility] Start: 05-28-2025 End: 05-28-2025 Patient encounter procedure 05/28/2025 10:00 AM EDT Office Visit Podiatry [address] [place] [address] Gomez Schwab [address] [place] [address] 3 month follow up nail care Podiatry Comment on above: 3 month follow up nail care Start: 05-06-2025 Plain x-ray of hand Hand Min 3 Views [facility] Start: 05-06-2025 XR Hand GE 3 Views [facility] Start: 04-30-2025 [facility] Start: 04-29-2025 Simple rpr scalp/neck/ax/genit/trunk 7.6-12.5cm RPR S/N/AX/GEN/TRK7.6-12.5CM [facility] Start: 04-22-2025 End: 04-22-2025 Patient encounter procedure 04/22/2025 10:30 AM EDT Office Visit General Surgery [address] [place] [address] Elvie Monterroso, BOBBY.ELEMENTARY ART TEACHER [address] [place] [address] 04-14 EGD & Colonoscopy follow up General Surgery Comment on above: 04-14 EGD & Colonoscopy follow up Start: 04-14-2025 End: 04-14-2025 Patient encounter procedure 04/14/2025 10:30 AM EDT Appointment Ambulatory Surgery [address] [place] [address] Nikos Rivera MD [address] [place] [address] Cardiac clearance recieved Ambulatory Surgery Comment on above: Cardiac clearance recieved Start: 04-06-2025 End: 04-06-2025 Patient encounter procedure Vasculary [facility] Comment on above: Peripheral arterial disease (HCC) [I73.9 ] 1 year follow up Start: 03-27-2025 Glaucoma screening Dilated Retinal Exam [facility] Start: 03-18-2025 Screening for malignant neoplasm of colon Colorectal Cancer Screening [facility] Start: 03-16-2025 End: 03-16-2025 Patient encounter procedure 03/16/2025 10:00 AM EDT Office Visit Internal Medicine [place] [address] [place] [address] Barb Suggs, LOCKER PLANT ATTENDANT.ELEMENTARY ART TEACHER [address] [place] [address] wellness visit Internal Medicine [facility] Comment on above: wellness visit Start: 03-11-2025 Annual PCP Team Chronic Disease Visit Annual PCP Team Chronic Disease Visit [facility] Start: 03-11-2025 Anxiety Screening Anxiety Screening [facility] Start: 03-11-2025 BP Controlled (<130/80) BP Controlled (<130/80) [facility] Start: 03-11-2025 Depression Screening Depression Screening [facility] Start: 03-11-2025 Hemoglobin A1c measurement HbA1C [facility] mal Start: 03-01-2025 End: 05-31-2025 Basic metabolic 2000 panel - Serum or Plasma BASIC METABOLIC PANEL Lab Routine Well controlled type 2 diabetes mellitus with neurological manifestations (HCC) Expected: 03/01/2025, Expires: 05/31/2025 [facility] Comment on above: Expected: 03/01/2025, Expires: Start: 03-01-2025 End: 05-31-2025 CBC panel - Blood by Automated count COMPLETE BLOOD COUNT Lab Routine Anemia, unspecified type Expected: 03/01/2025, Expires: 05/31/2025 [facility] Work Phone: Comment on above: Expected: 03/01/2025, Expires: Start: 03-01-2025 End: 05-31-2025 Hemoglobin A1c in Blood HEMOGLOBIN A1C Lab Routine Well controlled type 2 diabetes mellitus with neurological manifestations (HCC) Expected: 03/01/2025, Expires: 05/31/2025 [facility] Comment on above: Expected: 03/01/2025, Expires: Start: 02-23-2025 End: 02-23-2025 Patient encounter procedure Podiatry Comment on above: 3 month follow up Start: 02-09-2025 BP Controlled (<130/80) BP Controlled (<130/80) [facility] Start: 02-06-2025 Annual PCP Team Chronic Disease Visit Annual PCP Team Chronic Disease Visit [facility] Start: 02-06-2025 BP Controlled (<130/80) BP Controlled (<130/80) [facility] Start: 01-26-2025 Annual PCP Team Chronic Disease Visit Annual PCP Team Chronic Disease Visit [facility] Start: 11-19-2024 End: 11-19-2024 Patient encounter procedure 11/19/2024 11:15 AM EST Office Visit Podiatry [address] [place] [address] Gomez Schwab [address] [address] Regular check up and nail trim Podiatry Comment on above: Regular check up and nail trim Start: 11-16-2024 End: 11-16-2024 Patient encounter procedure 11/16/2024 8:40 AM EST Office Visit Cardiology [address] [place] [phone] Bib Patterson MD [address] [facility], [address] [place] [address] 6 month follow up Cardiology Comment on above: 6 month follow up Start: 11-13-2024 End: 11-13-2024 Patient encounter procedure 11/13/2024 1:20 PM EST Office Visit Internal Medicine [facility] [address] [place] [address] Sher Jules MD [address] [place] [address] Patient Outreach, follow-up - BP, 2 stents placed [facility] Comment on above: Patient Outreach, follow-up - BP, 2 sten ts placed Start: 11-02-2024 End: 02-01-2025 Basic metabolic 2000 panel - Serum or Plasma BASIC METABOLIC PANEL Lab Routine Hyponatremia Expected: 11/02/2024, Expires: 02/01/2025 [facility] Comment on above: Expected: 11/02/2024, Expires: Start: 11-02-2024 End: 02-01-2025 CBC panel - Blood by Automated count COMPLETE BLOOD COUNT Lab Routine Anemia, unspecified type Expected: 11/02/2024, Expires: 02/01/2025 [facility] Work Phone: Comment on above: Expected: 11/02/2024, Expires: Start: 10-28-2024 Advance Directive Discussion Advance Directive Discussion [facility] Start: 10-07-2024 End: 09-30-2025 Basic metabolic 1998 panel - Serum or Plasma Basic metabolic panel Lab Routine Coronary artery disease involving [place] coronary artery of [place] heart without angina pectoris Primary hypertension Expected: 10/07/2024 (Approximate), Expires: 09/30/2025 [facility] Work Phone: Comment on above: Expected: 10/07/2024 (Approximate), Expi res: 09/30/2025 Start: 10-07-2024 End: 09-30-2025 CBC W Auto Differential panel - Blood CBC auto differential Lab Routine Coronary artery disease involving [facility] coronary artery of [place] heart without angina pectoris Primary hypertension Expected: 10/07/2024 (Approximate), Expires: 09/30/2025 [facility] Comment on above: Expected: 10/07/2024 (Approximate), Expi res: 09/30/2025 Start: 10-02-2024 End: 10-02-2024 Patient encounter procedure Podiatry Comment on above: 3 month follow up nail care Start: 09-30-2024 End: 09-30-2024 Admission to same day surgery center 09/30/2024 11:00 AM EST - 09/30/2024 12:00 PM EST Surgery [facility] [address] [place] [id number] Sergei Collins MD [address] [place] [id number] Left heart cath / coronary angiography w grafts [facility] Comment on above: Left heart cath / coronary angiography w grafts Start: 09-30-2024 Subsequent hospital visit by physician [facility] Comment on above: Coronary artery disease involving [facility] coronary artery of [facility] heart without angina pectoris Start: 09-27-2024 End: 12-27-2024 Basic metabolic 2000 panel - Serum or Plasma BASIC METABOLIC PANEL Lab Routine Hyponatremia Hyperkalemia Expected: 09/27/2024, Expires: 12/27/2024 [facility] Comment on above: Expected: 09/27/2024, Expires: Start: 09-27-2024 End: 12-27-2024 CBC panel - Blood by Automated count COMPLETE BLOOD COUNT Lab Routine Anemia, unspecified type Expected: 09/27/2024, Expires: 12/27/2024 [facility] Work Phone: Comment on above: Expected: 09/27/2024, Expires: Start: 09-27-2024 End: 12-27-2024 Cobalamin (Vitamin B12) [Mass/volume] in Serum or Plasma VITAMIN B12 Lab Routine Anemia, unspecified type Expected: 09/27/2024, Expires: 12/27/2024 [facility] Comment on above: Expected: 09/27/2024, Expires: Start: 09-27-2024 End: 12-27-2024 Cortisol [Mass/volume] in Serum or Plasma CORTISOL, SERUM Lab Routine Hyperkalemia Expected: 09/27/2024, Expires: 12/27/2024 [facility] Comment on above: Expected: 09/27/2024, Expires: Start: 09-27-2024 End: 12-27-2024 Osmolality of Serum or Plasma OSMOLALITY Lab Routine Hyponatremia Expected: 09/27/2024, Expires: 12/27/2024 [facility] Comment on above: Expected: 09/27/2024, Expires: Start: 09-27-2024 End: 12-27-2024 Osmolality of Urine OSMOLALITY URINE Lab Routine Hyponatremia Expected: 09/27/2024, Expires: 12/27/2024 [facility] Comment on above: Expected: 09/27/2024, Expires: Start: 09-27-2024 End: 12-27-2024 PROTEIN ELECTROPHORESIS SERUM W/INTERP PROTEIN ELECTROPHORESIS SERUM W/INTERP Lab Routine Anemia, unspecified type Expected: 09/27/2024, Expires: 12/27/2024 [facility] Comment on above: Expected: 09/27/2024, Expires: Start: 09-27-2024 End: 12-27-2024 Sodium [Moles/volume] in Urine collected for unspecified duration SODIUM RANDOM URINE Lab Routine Hyponatremia Expected: 09/27/2024, Expires: 12/27/2024 [facility] Comment on above: Expected: 09/27/2024, Expires: Start: 09-16-2024 End: 09-16-2025 Basic metabolic 1998 panel - Serum or Plasma Basic metabolic panel Lab Routine Coronary artery disease involving [facility] coronary artery of [place] heart without angina pectoris Expected: 09/16/2024 (Approximate), Expires: 09/16/2025 [facility] Work Phone: Comment on above: Expected: 09/16/2024 (Approximate), Expi res: 09/16/2025 Start: 09-16-2024 End: 09-16-2025 CBC panel - Blood by Automated count CBC Lab Routine Coronary artery disease involving [facility] coronary artery of [facility] heart without angina pectoris Expected: 09/16/2024 (Approximate), Expires: 09/16/2025 [facility] Comment on above: Expected: 09/16/2024 (Approximate), Expi res: 09/16/2025 Start: 09-11-2024 End: 12-11-2024 CBC panel - Blood by Automated count [facility] Work Phone: Comment on above: Expected: 09/11/2024, Expires: Start: 09-11-2024 End: 12-11-2024 Comprehensive metabolic 2000 panel - Serum or Plasma [facility] Comment on above: Expected: 09/11/2024, Expires: Start: 09-11-2024 End: 12-11-2024 Hemoglobin A1c in Blood [facility] Comment on above: Expected: 09/11/2024, Expires: Start: 09-11-2024 End: 12-11-2024 LIPID PANEL, NONFASTING [facility] Comment on above: Expected: 09/11/2024, Expires: Start: 09-11-2024 End: 12-11-2024 Microalbumin/Creatinine [Mass Ratio] in Urine [facility] Comment on above: Expected: 09/11/2024, Expires: Start: 09-11-2024 End: 09-11-2024 Patient encounter procedure 09/11/2024 11:00 AM EST Office Visit Internal Medicine [facility] [address] [place] [address] Sher Jules MD [address] [place] [address] 6 mo f/u [facility] Medicine [facility] Comment on above: 6 mo f/u Start: 08-09-2024 Annual PCP Team Chronic Disease Visit Annual PCP Team Chronic Disease Visit [facility] Start: 08-06-2024 Diabetes: Estimated Glomerular Filtration Rate for [facility] Diabetes: Estimated Glomerular Filtration Rate for [facility] Start: 06-28-2024 Influenza vaccination Influenza Vaccine (#1) [facility] Start: 06-26-2024 End: 06-26-2024 Patient encounter procedure 06/26/2024 1:00 PM EDT Office Visit Podiatry [address] [place] [address] Gomez Schwab [address] [place], [place] [address] 3 month follow up nail care Podiatry Comment on above: 3 month follow up nail care Start: 06-01-2024 End: 06-01-2024 Patient encounter procedure 06/01/2024 10:00 AM EDT Office Visit Cardiology [address] [place] [id number] Bib Patterson MD [address] [facility], [address] [place], [place] [id number] 1 YEAR OFFICE VISIT Cardiology Comment on above: 1 YEAR OFFICE VISIT Start: 04-07-2024 End: 04-07-2024 Patient encounter procedure Vasculary Ramirez mario Comment on above: Peripheral arterial disease (HCC) [I73.9 ] [address] testing Start: 04-06-2024 End: 04-06-2024 Patient encounter procedure 04/06/2024 1:20 PM EDT Office Visit Cardiology [address] [place] [phone] Bib Patterson MD [address] [facility], [address] [place] [address] follow up NM stress test per Dr. Patterson Cardiology Comment on above: follow up NM stress test per Dr. Patterson Start: 03-24-2024 End: 03-24-2024 Patient encounter procedure 03/24/2024 10:30 AM EDT Office Visit General Surgery [address] [facility] [place], [place] [phone] Nikos Rivera MD [address] [id number] Special screening for malignant neoplasms, colon [Z12.11] General Surgery Comment on above: Special screening for malignant neoplasm s, colon [Z12.11] Start: 03-22-2024 ANNUAL PCP TEAM CHRONIC DISEASE VISIT ANNUAL PCP TEAM CHRONIC DISEASE VISIT [facility] Start: 03-22-2024 BP CONTROLLED (<130/80) BP CONTROLLED (<130/80) [facility] Start: 03-13-2024 End: 03-13-2024 Patient encounter procedure 03/13/2024 3:20 PM EDT Office Visit Podiatry [address] [place], [place] [phone] Gomez Schwab [address] [facility] [address] 3 month follow up nail care Podiatry Comment on above: 3 month follow up nail care Start: 03-12-2024 Subsequent hospital visit by physician 03/12/2024 8:15 AM EDT Hospital Encounter Cardiology Lab [address] [place], [place] [phone] CORONARY ARTERIOSCLEROSIS Cardiology Lab Comment on above: CORONARY ARTERIOSCLEROSIS Start: 03-12-2024 End: 03-12-2024 Patient encounter procedure 03/12/2024 7:15 AM EDT Appointment Molecular Imaging [address] [place] [phone] CORONARY ARTERIOSCLEROSIS,NM CARDIAC PERF STRESS/PHARM, order in epic Molecular Imaging Comment on above: CORONARY ARTERIOSCLEROSIS,NM CARDIAC PER F STRESS/PHARM, order in epic Start: 03-11-2024 End: 03-11-2025 NM Heart Perfusion W stress and W radionuclide IV NM CARDIAC PERF STRESS/PHARM Radiology Routine 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) Expected: 03/11/2024, Expires: 03/11/2025 [facility] Work Phone: Comment on above: Expected: 03/11/2024, Expires: Start: 03-11-2024 End: 03-11-2024 Patient encounter procedure 03/11/2024 10:20 AM EDT Office Visit Internal Medicine [facility] [address] [place], [place] [phone] Sher Jules MD [address] [place] [address] Medicare Wellness, pt needs colonoscopy [facility] Medicine [facility] Comment on above: Medicare Wellness, pt needs colonoscopy Start: 02-19-2024 Patient referral to dietitian [facility] Start: 02-08-2024 End: 04-09-2024 ALBUMIN/CREAT RATIO RND UR ALBUMIN/CREAT RATIO RND UR Lab Routine Well controlled type 2 diabetes mellitus with neurological manifestations (HCC) Expected: 02/08/2024, Expires: 04/09/2024 [facility] Work Phone: Comment on above: Expected: 02/08/2024, Expires: Start: 02-08-2024 End: 04-09-2024 CBC panel - Blood by Automated count CBC Lab Routine Essential hypertension Expected: 02/08/2024, Expires: 04/09/2024 [facility] Work Phone: Comment on above: Expected: 02/08/2024, Expires: Start: 02-08-2024 End: 04-09-2024 Comprehensive metabolic 2000 panel - Serum or Plasma COMP METABOLIC PANEL Lab Routine Hyperlipidemia with target LDL less than 70 Expected: 02/08/2024, Expires: 04/09/2024 [facility] Work Phone: Comment on above: Expected: 02/08/2024, Expires: 4 Start: 02-08-2024 End: 04-09-2024 Hemoglobin A1c in Blood HGB A1C Lab Routine Well controlled type 2 diabetes mellitus with neurological manifestations (HCC) Expected: 02/08/2024, Expires: 04/09/2024 [facility] Work Phone: Comment on above: Expected: 02/08/2024, Expires: 4 Start: 02-08-2024 End: 04-09-2024 Lipid 1996 panel - Serum or Plasma LIPID PANEL BASIC Lab Routine Hyperlipidemia with target LDL less than 70 Expected: 02/08/2024, Expires: 04/09/2024 [facility] Work Phone: Comment on above: Expected: 02/08/2024, Expires: 4 Start: 02-07-2024 3 comp foot exam completed DIABETIC FOOT EXAM [facility] Start: 02-07-2024 ANNUAL PCP TEAM CHRONIC DISEASE VISIT ANNUAL PCP TEAM CHRONIC DISEASE VISIT [facility] Start: 02-07-2024 Diabetic foot examination Diabetic Foot Exam [facility] Start: 02-07-2024 Hepatitis B screening URINE ALBUMIN:CREATININE RATIO [facility] Start: 02-07-2024 Hepatitis B surface antibody level LDL CHOLESTEROL [facility] Start: 02-05-2024 Hemoglobin A1c measurement HbA1C [facility] Start: 02-05-2024 Hemoglobin A1c/Hemoglobin.total in Blood HbA1C [facility] Start: 01-30-2024 Patient referral [facility] Work Phone: Start: 01-30-2024 Patient discharge [facility] Start: 01-29-2024 Ambulation without limitation [facility] Start: 01-29-2024 Cardiac monitoring [facility] Start: 01-29-2024 Cardiac rehabilitation - phase 1 [facility] Start: 01-29-2024 Cardiac rehabilitation - phase 2 [facility] Start: 01-29-2024 Notification of physician [facility] Start: 01-29-2024 Patient discharge [facility] Start: 01-29-2024 Taking patient vital signs [facility] Start: 01-29-2024 Vascular disease risk assessment [facility] Start: 01-29-2024 Vital signs measurements [facility] Start: 01-29-2024 End: 01-29-2024 [facility] Start: 01-28-2024 Following clinical pathway protocol [facility] Start: 01-28-2024 Measurement of occult blood in stool specimen using immunoassay [facility] Start: 01-28-2024 Application of elastic bandage [facility] Start: 01-28-2024 Assessment of risk of venous thromboembolism [facility] Start: 01-28-2024 Care regimes management [facility] Start: 01-28-2024 Continuous pulse oximetry [facility] Start: 01-28-2024 Elevation of head of bed [facility] Start: 01-28-2024 Incentive spirometry [facility] Start: 01-28-2024 Inhalation therapy procedure [facility] Start: 01-28-2024 Insertion of catheter into peripheral vein [facility] Start: 01-28-2024 Introduction of urinary catheter [facility] Start: 01-28-2024 Measuring intake and output [facility] Start: 01-28-2024 Notification of physician [facility] Start: 01-28-2024 Oxygen therapy [facility] Start: 01-28-2024 Patient referral to dietitian [facility] Start: 01-28-2024 Providing care according to standard [facility] Start: 01-28-2024 Provision of activity privileges [facility] Start: 01-28-2024 Referral to composing room machinist [facility] Start: 01-28-2024 Referral to service [facility] Start: 01-28-2024 Vital signs measurements [facility] Start: 01-28-2024 [facility] Start: 01-28-2024 Chart related administrative procedure [facility] Start: 01-28-2024 Hospital admission, emergency, from emergency room, medical nature [facility] Start: 01-28-2024 Creatinine [Mass/volume] in Urine collected for unspecified duration [facility] Start: 01-28-2024 Electrocardiographic procedure [facility] Start: 01-28-2024 Measurement of occult blood in stool specimen using immunoassay [facility] Start: 01-28-2024 Osmolality of Urine [facility] Start: 01-28-2024 Sodium [Moles/volume] in Urine [facility] Start: 01-28-2024 Verification routine [facility] Start: 01-28-2024 Admission procedure [facility] Start: 01-28-2024 Catheterization of vein [facility] Start: 01-28-2024 Medication not administered [facility] Start: 01-28-2024 [facility] Start: 01-28-2024 [facility] Start: 12-02-2023 Colonoscopy COLONOSCOPY [facility] Start: 12-02-2023 COLORECTAL CANCER SCREENING COLORECTAL CANCER SCREENING [facility] Start: 12-02-2023 Screening for malignant neoplasm of colon [facility] Start: 10-28-2023 Advance Directive Discussion Advance Directive Discussion [facility] Start: 10-28-2023 Behavioral Health Screening Behavioral Health Screening [facility] Start: 10-28-2023 Depression Assessment Depression Assessment [facility] Start: 10-26-2023 Glaucoma screening Dilated Retinal Exam [facility] Start: 10-26-2023 Hepatitis C antibody, confirmatory test DILATED RETINAL EXAM [facility] Start: 10-01-2023 BP CONTROLLED (<130/80) BP CONTROLLED (<130/80) [facility] Start: 08-08-2023 End: 10-08-2023 Basic metabolic 2000 panel - Serum or Plasma BASIC METABOLIC PNL Lab Routine Well controlled type 2 diabetes mellitus with neurological manifestations (HCC) Expected: 08/08/2023, Expires: 10/08/2023 [facility] Work Phone: Comment on above: Expected: 08/08/2023, Expires: Start: 08-08-2023 End: 10-08-2023 Hemoglobin A1c in Blood HGB A1C Lab Routine Well controlled type 2 diabetes mellitus with neurological manifestations (HCC) Expected: 08/08/2023, Expires: 10/08/2023 [facility] Work Phone: Comment on above: Expected: 08/08/2023, Expires: 3 Start: 08-08-2023 Hemoglobin A1c/Hemoglobin.total in Blood HBA1C [facility] Start: 07-18-2023 Adult depression screening assessment DEPRESSION SCREENING [facility] Start: 07-18-2023 ANNUAL PCP TEAM CHRONIC DISEASE VISIT ANNUAL PCP TEAM CHRONIC DISEASE VISIT [facility] Start: 07-18-2023 BP CONTROLLED (<130/80) BP CONTROLLED (<130/80) [facility] Start: 07-18-2023 SHINGRIX VACCINE (3 of 3) SHINGRIX VACCINE (3 of 3) [facility] Comment on above: Postponed from 05/10/2018 (Declined at t his time) Start: 06-28-2023 Influenza vaccination [facility] Start: 06-11-2023 ANNUAL PCP TEAM CHRONIC DISEASE VISIT ANNUAL PCP TEAM CHRONIC DISEASE VISIT [facility] Start: 03-19-2023 Hepatitis B surface antibody level LDL CHOLESTEROL [facility] Start: 02-20-2023 ANNUAL PCP TEAM CHRONIC DISEASE VISIT ANNUAL PCP TEAM CHRONIC DISEASE VISIT [facility] Start: 02-20-2023 BP CONTROLLED (<130/80) BP CONTROLLED (<130/80) [facility] Start: 02-20-2023 Urine microalbumin profile DTAP,TDAP,TD (2 - Tdap) [facility] Comment on above: Postponed from 03/19/2018 (Declined at t his time) Start: 02-06-2023 End: 04-08-2023 ALBUMIN/CREAT RATIO RND UR [facility] Work Phone: Comment on above: Expected: 02/06/2023, Expires: 3 Start: 10-28-2022 ADVANCE DIRECTIVE DISCUSSION ADVANCE DIRECTIVE DISCUSSION [facility] Start: 10-28-2022 DEPRESSION ASSESSMENT DEPRESSION ASSESSMENT [facility] Start: 10-26-2022 Hepatitis C antibody, confirmatory test DILATED RETINAL EXAM [facility] Start: 09-19-2022 Hemoglobin A1c/Hemoglobin.total in Blood HBA1C [facility] Start: 07-18-2022 End: 09-17-2022 ALBUMIN/CREAT RATIO RND UR ALBUMIN/CREAT RATIO RND UR Lab Routine Well controlled type 2 diabetes mellitus with neurological manifestations (HCC) Expected: 07/18/2022, Expires: 09/17/2022 [facility] Work Phone: Comment on above: Expected: 07/18/2022, Expires: 2 Start: 06-30-2022 3 comp foot exam completed DIABETIC FOOT EXAM [facility] Start: 06-28-2022 Influenza vaccination INFLUENZA (#1) [facility] Start: 05-30-2022 Patient discharge [facility] Work Phone: Start: 05-30-2022 Assessment of risk of venous thromboembolism [facility] Work Phone: Start: 05-30-2022 Cardiac monitoring [facility] Work Phone: Start: 05-30-2022 Care regimes management [facility] Work Phone: Start: 05-30-2022 Catheterization of vein [facility] Work Phone: Start: 05-30-2022 Elevation of head of bed [facility] Work Phone: Start: 05-30-2022 Exercises [facility] Work Phone: Start: 05-30-2022 Implementation of planned interventions [facility] Work Phone: Start: 05-30-2022 Insertion of catheter into peripheral vein [facility] Work Phone: Start: 05-30-2022 Measuring intake and output [facility] Work Phone: Start: 05-30-2022 Notification of physician [facility] Work Phone: Start: 05-30-2022 Oxygen therapy [facility] Work Phone: Start: 05-30-2022 Patient referral to dietitian [facility] Work Phone: Start: 05-30-2022 Providing care according to standard [facility] Work Phone: Start: 05-30-2022 Referral to occupational therapist [facility] Work Phone: Start: 05-30-2022 Referral to service [facility] Work Phone: Start: 05-30-2022 Speech therapy assessment [facility] Work Phone: Start: 05-30-2022 Tobacco use cessation education [facility] Work Phone: Start: 05-30-2022 [facility] Work Phone: Start: 05-30-2022 Following clinical pathway protocol [facility] Work Phone: Start: 05-30-2022 Admission procedure [facility] Work Phone: Start: 05-29-2022 Oxygen therapy [facility] Work Phone: Start: 05-29-2022 [facility] Work Phone: Start: 05-23-2022 Hepatitis B screening URINE ALBUMIN:CREATININE RATIO [facility] Start: 03-15-2022 Hemoglobin A1c/Hemoglobin.total in Blood HBA1C [facility] Start: 02-23-2022 Adult depression screening assessment DEPRESSION SCREENING [facility] Start: 11-21-2021 Hepatitis B surface antibody level LDL CHOLESTEROL [facility] Start: 10-28-2021 DEPRESSION ASSESSMENT DEPRESSION ASSESSMENT [facility] Start: 05-10-2018 SHINGRIX VACCINE (3 of 3) SHINGRIX VACCINE (3 of 3) [facility] Start: 02-01-2016 FECAL OCCULT BLOOD FECAL OCCULT BLOOD [facility] Start: 02-01-2016 Screening for malignant neoplasm of colon Fecal Occult Blood [facility] Start: 2012 Hepatitis B Vaccine (1 of 3 - Risk 3-dose series) Hepatitis B Vaccine (1 of 3 - Risk 3-dose series) [facility] Start: 2012 RSV Vaccine (1 - 1-dose 60+ series) RSV Vaccine (1 - 1-dose 60+ series) [facility] Start: 01-26-1997 COLOGUARD (FIT-DNA) COLOGUARD (FIT-DNA) [facility] Start: 01-26-[address] COLONOGRAPHY [facility] Start: 01-26-1997 Screening for malignant neoplasm of colon [facility] Start: 01-26-1997 SIGMOIDOSCOPY SIGMOIDOSCOPY [facility] Start: 01-26-1970 Hepatitis C screening Hepatitis C Screening [facility] Start: 1964 Depression Screening Depression Screening [facility] Start: 01-26-1962 Diabetic foot examination Diabetes: Foot Exam [facility] Start: 01-26-1962 Glaucoma screening Diabetes: Retinopathy Screening [facility] Start: 01-26-1962 Preventive dental service Diabetes: Dental Exam [facility] Start: 1950 Lipid panel Lipid Panel [facility] Start: 1950 Medicare Annual Wellness (AWV) Medicare Annual Wellness (AWV) [facility] Start: 1950 Screening for malignant neoplasm of colon [facility] Bacteria identified in Wound by Culture ABSCESS AND WOUND CULTURE WITH GRAM STAIN Microbiology Routine Ingrowing toenail with infection 10/31/2023 11:44 AM EST [facility] Work Phone: CARDIAC REHAB II OUT PT ([place], [place]) CARDI[facility] REHAB II OUT[place] ([place], [place]) BIC Routine 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) Ordered: 02/10/2024 [facility] Work Phone: Comment on above: Ordered: 02/10/2024 Comprehensive metabo lic 2000 panel - Serum or Plasma [facility] End: 02-14-2024 Cta abdl aorta&bi iliofem w/contrast&postp CTA ABD/PEL LOWER EXTREM W IVCON Radiology Routine Peripheral vascular disease (HCC) 1 Occurrences starting 01/15/2023 until 02/14/2024 [facility] Work Phone: Comment on above: 1 Occurrences starting 01/15/2023 until 02/14/2024 ECG 12 lead ECG 12 lead CV E CG Routine 09/30/2024 12:42 PM EST [facility] Work Phone: End: 09-05-2023 ECG COMPLETE ECG COMPLETE ECG Routine Coronary artery disease involving [place] coronary artery of [place] heart without angina pectoris 1 Occurrences starting 09/05/2022 until 09/05/2023 [facility] Work Phone: Comment on above: 1 Occurrences starting 09/05/2022 until 09/05/2023 End: 04-29-2024 ECG COMPLETE ECG COMPLETE ECG Routine Screening for ischemic heart disease 1 Occurrences starting 04/29/2023 until 04/29/2024 [facility] Work Phone: Comment on above: 1 Occurrences starting 04/29/2023 until 04/29/2024 End: 08-09-2024 ECG COMPLETE ECG COMPLETE ECG Routine Coronary artery disease involving [facility] coronary artery of [place] heart without angina pectoris 1 Occurrences starting 08/09/2023 until 08/09/2024 [facility] Work Phone: Comment on above: 1 Occurrences starting 08/09/2023 until 08/09/2024 LEFT HEART CATH / CO RONARY ANGIOGRAPHY W GRAFTS LEFT HEART CATH / CORONARY ANGIOGRAPHY W GRAFTS Coronary artery disease involving [facility] coronary artery of [facility] heart without angina pectoris [facility] Ensequence Lipid 1996 panel - S silvia or Plasma [facility] Patient Education [facility] Work Phone: Patient referral [facility] Work Phone: End: 03-27-2023 PVR LEG NOHEMY VAS LAB PVR LEG [facility] Vascular Lab Routine Peripheral arterial disease (HCC) 1 Occurrences starting 03/27/2022 until 03/27/2023 [facility] Work Phone: Comment on above: 1 Occurrences starting 03/27/2022 until 03/27/2023 Tissue Pathology bio psy report [facility] Work Phone: Comment on above: Release Upon Ordering for 1 Occurrences starting 04/14/2025, 1 completed End: 04-07-2025 US Lower extremity artery - bilateral P[facility] Vascular Lab Routine Peripheral arterial disease (HCC) 1 Occurrences starting 04/07/2024 until 04/07/2025 [facility] Work Phone: Comment on above: 1 Occurrences starting 04/07/2024 until 04/07/2025 End: 04-06-2026 US Lower extremity artery - bilateral [facility]G [facility] Vascular Lab Routine Peripheral arterial disease 1 Occurrences starting 04/06/2025 until 04/06/2026 [facility] Work Phone: Comment on above: 1 Occurrences starting 04/06/2025 until 04/06/2026 End: 02-25-2025 XR Wrist - bilateral PA and Lateral and Oblique XR WRIST GENERAL 3V PA/LAT/OBL BILATERAL Radiology Routine Pain in both wrists 1 Occurrences starting 2024 until 02/25/2025 [facility] Work Phone: Comment on above: 1 Occurrences starting 2024 until 02/25/2025 XR Wrist - bilateral PA and Lateral and Oblique XR WRIST GENERAL 3V PA/LAT/OBL BILATERAL Radiology Routine Pain in both wrists 2024 3:44 PM EDT [facility] Work Phone: [facility] Immunizations Immunization Date Immunization Notes Care Provider Fa [facility] 04-30-2025 tetanus toxoid, redu hayley diphtheria toxoid, and acellular pertussis vaccine, adsorbed Dr. Sher Jules MD Work Phone: [facility] 07-29-2023 COVID-19 vaccine, ag e 12+ yr, season (PFIZER-BIONTECH) Sher Jules MD Work Phone: [facility] 07-29-2023 influenza (aIIV4) vaccine, age 65+ yr, quadrivalent, PF (FLUAD QUAD) Sher Jules MD Work Phone: [facility] 07-29-2023 influenza virus vaccine, unspecified formulation Barb Suggs APRN.CNP Work Phone: [facility] 08-04-2022 COVID-19 booster vaccine, age 12+ yr, bivalent (PFIZER-BIONTECH) Jules Dukes MD Work Phone: [facility] Work Phone: 08-04-2022 tetanus toxoid, redu hayley diphtheria toxoid, and acellular pertussis vaccine, adsorbed Jules Dukes MD Work Phone: [facility] Work Phone: 07-18-2022 influenza, high-dose , quadrivalent vaccine (FLUZONE HIGH DOSE QUADRIVALENT) Barb Leon APRN.CNP Work Phone: [facility] Work Phone: 07-18-2022 influenza virus vaccine, unspecified formulation Gomez Mccabezaki Work Phone: [facility] 03-04-2022 COVID-19 original vaccine, full dose, monovalent (MODERNA) Sher Jules MD Work Phone: [facility] Work Phone: 08-21-2021 COVID-19 vaccine, booster dose (MODERNA) Sher Jules MD Work Phone: [facility] 07-14-2021 influenza, high-dose , quadrivalent vaccine (FLUZONE HIGH DOSE QUADRIVALENT) Sher Jules MD Work Phone: [facility] 05-28-2021 Covid (Moderna) [facility] Work Phone: 01-07-2021 COVID-19 vaccine, booster dose (MODERNA) Sher Jules MD Work Phone: [facility] 12-10-2020 COVID-19 vaccine, booster dose (MODERNA) Sher Jules MD Work Phone: [facility] 08-03-2020 influenza (aIIV4) vaccine, age 65+ yr, quadrivalent, PF (FLUAD QUAD) Sher Jules MD Work Phone: [facility] Work Phone: 08-06-2019 influenza, high dose seasonal, preservative-free Sher Jules MD Work Phone: [facility] Work Phone: 08-22-2018 influenza, high dose seasonal, preservative-free Sher Jules MD Work Phone: [facility] 03-15-2018 zoster vaccine recombinant Sher Jules MD Work Phone: [facility] Work Phone: 02-21-2018 pneumococcal polysaccharide vaccine, 23 valent Sher Jules MD Work Phone: [facility] Work Phone: 08-22-2017 influenza, high dose seasonal, preservative-free Sher Jules MD Work Phone: [facility] 02-20-2017 pneumococcal conjuga te vaccine, 13 valent Sher Jules MD Work Phone: [facility] 08-22-2016 influenza, injectabl e, quadrivalent, contains preservative Sher Jules MD Work Phone: [facility] 08-05-2015 influenza, injectabl e, quadrivalent, contains preservative Sher Jules MD Work Phone: [facility] 08-17-2013 zoster vaccine, live Sher Jules MD Work Phone: [facility] 07-03-2013 influenza virus vaccine, unspecified formulation Sher Jules MD Work Phone: [facility] 08-13-2011 influenza virus vaccine, unspecified formulation Sher Jules MD Work Phone: [facility] Work Phone: 08-01-2009 influenza virus vaccine, unspecified formulation Sher Jules MD Work Phone: [facility] Work Phone: 03-19-2008 diphtheria and tetan us toxoids, adsorbed for pediatric use Sher Jules MD Work Phone: [facility] Work Phone: 12-24-2006 pneumococcal polysaccharide vaccine, 23 valent Sher Jules MD Work Phone: [facility] Work Phone: Payers Date Payer Category Payer Unknown PLAN N 2024 Unknown [id number] 2024 Self-pay [id number] 2016 Medicare MEDICARE MEDICAR E A AND B [id number] 2016-Present [phone] [place] [address] Medicare [id number] 2016 Medicare [id number] 2016 Medicare supplementa l policy (as second payer) [id number] 2016 Private Health Insurance [employer] [place] [id number] 2016 Unknown MEDICO MEDICO 2N D [id number] 2016-Present [phone] [address] [address] [place] [id number] Indemnity [id number] 2016 Medicare [id number] 2016 Unknown [id number] 2005 Private Health Insurance [id number] Unknown [id number] 2.16.840.1.933280.3.579 .2.462 Unknown [id number] 2.16.840.1.095926.3.579 .2.462 Unknown [id number] 2.16.840.1.962130.3.579 .2.462 Unknown [id number] 2.16.840.1.119217.3.579 .2.462 Unknown [id number] 2.16.840.1.492096.3.579 .2.462 Unknown [id number] 2.16.840.1.491483.3.579 .2.462 Unknown [id number] 2.16.840.1.084988.3.579 .2.462 Unknown [id number] 2.16.840.1.338438.3.579 .2.462 Unknown [id number] 2.16.840.1.065081.3.579 .2.462 Unknown [id number] 2.16.840.1.014259.3.579 .2.462 Unknown [id number] 2.16.840.1.058729.3.579 .2.462 Unknown [id number] 2.16.840.1.140073.3.579 .2.462 Unknown [id number] 2.16.840.1.788651.3.579 .2.462 Unknown [id number] 2.16.840.1.947588.3.579 .2.462 Unknown [id number] 2.16.840.1.089743.3.579 .2.462 Unknown [id number] 2.16.840.1.206149.3.579 .2.462 Unknown [id number] 2.16.840.1.430267.3.579 .2.462 Unknown [id number] 2.16.840.1.037698.3.579 .2.462 Unknown [id number] 2.16.840.1.696051.3.579 .2.462 Unknown [id number] 2.16.840.1.440812.3.579 .2.462 Unknown [id number] 2.16.840.1.915370.3.579 .2.462 Unknown [id number] 2.16.840.1.743900.3.579 .2.462 Unknown [id number] 2.16.840.1.793095.3.579 .2.462 Unknown [id number] 2.16.840.1.141909.3.579 .2.462 Unknown [id number] 2.16.840.1.683561.3.579 .2.462 Unknown [id number] 2.16840.1.400897.3.579 .2.462 Unknown [id number] 2.16.840.1.924686.3.579 .2.462 Unknown [id number] 2.16.840.1.706930.3.579 .2.462 Unknown [id number] 2.16840.1.976321.3.579 .2.462 Unknown [id number] 2.16840.1.488532.3.579 .2.462 Social History Date Type Detail Facility Start: 10-17-2013 End: 04-29-2025 Tobacco smoking status NHIS Ex-smoker [facility] Start: 10-28-1968 End: 10-28-2002 History of tobacco use Current smoker [facility] Start: 10-28-1968 End: 10-28-2002 History of tobacco use Cigarette Smoker [facility] Start: 02-20-2022 End: 04-15-2025 Alcohol intake Current drinker of alcohol (finding) [facility] Start: 02-20-2022 End: 03-20-2023 Alcohol intake [facility] Start: 08-22-2020 End: 09-24-2022 History SDOH Alcohol Frequency 5 [facility] Start: 08-22-2020 End: 09-24-2022 History SDOH Alcohol Std Drinks 2 [facility] Start: 08-22-2020 End: 09-24-2022 History SDOH Alcohol Binge 4 [facility] Start: 02-20-2022 History SDOH Alcohol Comment 6 beers per day, sometimes less [facility] Start: 07-31-2020 End: 09-24-2022 History SDOH Social Connections Get Together 3 [facility] Start: 07-31-2020 End: 09-24-2022 History SDOH Social Connections Membership 1 [facility] Start: 01-21-2020 End: 09-24-2022 History SDOH Physical Activity DPW 0 [facility] Start: 01-21-2020 Education 12 [facility] Start: 1950 Sex Assigned At Male [facility] Start: 03-17-2022 End: 03-27-2022 Exposure to SARS-CoV-2 (event) Unable to assess [facility] Start: 04-22-2022 End: 10-01-2022 Exposure to SARS-CoV-2 (event) Not sure [facility] Start: 05-29-2022 End: 02-19-2024 Tobacco smoking status NHIS Unknown if ever smoked [facility] Start: 05-29-2022 Cigarettes [facility] Start: 10-17-2013 End: 04-06-2025 Tobacco use and exposure Smokeless tobacco non-user [facility] Work Phone: Start: 09-24-2022 End: 03-20-2023 Social connection and isolation panel [facility] Do you belong to any clubs or organizations such as taoist groups, unions, fraternal or athletic groups, or school groups? Yes [facility] Are you now , , , , never or living with a partner? [facility] How often to you hav e a drink containing alcohol? 4 or more times a week [facility] How many standard dr inks containing alcohol do you have on a typical day? 3 or 4 [facility] How often do you hav e 6 or more drinks on 1 occasion? Weekly [facility] How hard is it for y ou to pay for the very basics like food, housing, medical care, and heating Not hard at all [facility] Do you feel stress - tense, restless, nervous, or anxious, or unable to sleep at night because your mind is troubled all the time - these days [OSQ] Not at all [facility] (I/We) worried [facility] (my/our) food would run out before (I/we) got money to buy more. Never true [facility] In the past 12 month s, was there a time when you were not able to pay the mortgage or rent on time? No [facility] Start: 08-11-2020 Gender identity Identifies as male gender (finding) [facility] Start: 08-11-2020 Sexual orientation Heterosexual (finding) [facility] How often do you hav e 6 or more drinks on 1 occasion? Never [facility] History of tobacco use Passive smoker [facility] Start: 09-16-2024 Alcohol Comment 30 a week [facility] Start: 1950 Sex assigned at Not on file [facility] Start: 09-15-2024 Sex Male (finding) [facility] How many standard dr inks containing alcohol do you have on a typical day? 5 or 6 [facility] How often do you hav e 6 or more drinks on 1 occasion? Daily or almost daily [facility] Medical Equipment Procedure Code Equipment Code Equipment Original Text Equipment Identifier Dates Myton Ptfe 1.2 Cm X 10 Cm - [id number]_[facility] Start: 10-20-2013 Comment on above: Description: Bard PT FE Myton Patch Cv 2x9cm Peripatch - [id number]_[facility] Start: 05-24-2016 [id number], [id number], [id number] Start: 02-15-2010 Comment on above: TEST BLOOD SUGARS ON CE DAILY Use as instructed Test blood sugar onc e daily. Drug-eluting coronary artery stent, non-bioabsorbable -polymer-coated ()[id number] FDA Start: 01-29-2024 Drug-eluting coronary artery stent, non-bioabsorbable -polymer-coated ()[id number] FDA Start: 01-29-2024 Stent Cor Skypoint 2.77x41mx - [id number]_[facility] Start: 09-30-2024 Stent Cor Skypoint 3.88e19vt - [id number] Start: 09-30-2024 Goals Date Patient Goal Desired Activity /State Personal health goal Functional Status Date Assessment Result Facility 01-30-2024 Functional status Ambulates;Up a d juan;Bathroom Privilege [facility] Work Phone: 05-30-2022 Functional status Ambulates [facility] Work Phone: 05-26-2016 Are you deaf, or do you have serious difficulty hearing No 05/26/2016 1:42 PM EDT Homer MadisonRn)(Hist), RN No [facility] 05-26-2016 Are you blind, or do you have serious difficulty seeing, even when wearing glasses No 05/26/2016 1:42 PM Homer SalazarRn)(Hist), RN No [facility] 05-26-2016 Do you have serious difficulty walking or climbing stairs No 05/26/2016 1:42 PM EDHomer KohlerRn)(Hist), RN No [facility] 05-26-2016 Do you have difficul ty dressing or bathing No 05/26/2016 1:42 PM Homer SalazarRn)(Hist), RN No [facility] 05-26-2016 Because of a physica l, mental, or emotional condition, do you have difficulty doing errands alone such as visiting a physician's office or shopping No 05/26/2016 1:42 PM Homer Salazar)(Hist), RN No [facility] Mental Status Date Assessment Result Facility 01-30-2024 Cognitive function Voice/Name [facility] Work Phone: 01-28-2024 Cognitive function Voice/Name [facility] Work Phone: 05-30-2022 Cognitive function Voice/Name [facility] Work Phone: 05-26-2016 Because of a physica l, mental, or emotional condition, do you have serious difficulty concentrating, remembering, or making decisions No 05/26/2016 1:42 PM EDHomer Kohler)(Hist), RN No [facility] Clinical Notes 08-22-2018 to 04-30-2025 Elvie Monterroso APRN.ELEMENTARY ART TEACHER - 04/22/2025 10:30 AM EDTDischarge Instr - Nursing - Nuris Meek, RN - 04/14/2025 9:21 AM EDTDischarge Instr - Nursing - Nuris Meek RN - 04/14/2025 9:21 AM EDT Note Date & Type Note Facility 04-30-2025 Discharge summary [facility] 04-29-2025 Radiology Diagnostic study note [facility] Imaging Services [address] [place] [address] Brain/Head without Contrast MR#: [id number] Acct: [id number] Name: MARIE HUTSON Rep #: [id number] : 1950 M 75 From: Carin Sifuentes MD PCP: Dr. Sher Jules MD Status: R ER Study:Brain/Head without Contrast Date of Exa m: 04/29/25 Exam# [id number] Ordering Dr: Susy Wallace MD PROCEDURE: BRAIN/HEAD [...] IMPRESSION: No acute intracranial finding Reading Location: [place] [address] CC: Dr. Rohan Wallace MD; Dr. Sher Jules MD ~ [employer] Operator: Signed [facility] 04-29-2025 Hospital Discharge instructions Additional Instructions 1. Keep wound clean and dry as much as possible for the next 2 to 3 days 2. Apply bacitracin ointment 2-3 times a day 3. If there is any concern for infection either see your doctor or return to the emergency room for reevaluation [facility] Work Phone: 04-22-2025 History of Present illness Narrative FOLLOW UP VISIT - ENDOSCOPY Marie Hutson 1950 [id number] REFERRING PHYSICIAN: Nikos Rivera [address] [facility] [address] Marie Hutson is a patient I am [...] as needed for worsening/no improvement. Elvie Monterroso APRN.ELEMENTARY ART TEACHER documented in this encounter [facility] 04-22-2025 Note HNO ID: [id number] Author: ELVIE MONTERROSO APRN.ELEMENTARY ART TEACHER Service: ? Author Type: Nurse Practitioner Type: Progress Notes Filed: 04/22/2025 10:56 Note Text: FOLLOW UP VISIT - ENDOSCOPY Marie Hutson 1950 [id number] REFERRING PHYSICIAN: Nikos Rivera [address] [facility] [address] Marie Hutson is a patient I am [...] as needed for worsening/no improvement. Elvie Monterroso APRN.ELEMENTARY ART TEACHER [facility] 04-14-2025 Note Formatting of this n ote might be different from the original. The patient received a copy of Colonoscopy and EGD discharge instructions that contain information for how to contact the physician who performed the procedure and when to seek medical care. [facility] 04-14-2025 Miscellaneous Notes The patient received a copy of Colonoscopy and EGD discharge instructions that contain information for how to contact the physician who performed the procedure and when to seek medical care. documented in this encounter [facility] 04-14-2025 Attending History and physical note [...] : 1950 REFERRING PHYSICIAN: Barb Suggs [address] [facility] [place] [address] CHIEF COMPLAINT: Patient presents with: Consult: For [...] ulcers/ peptic ulcer disease. Marie follows with [facility] for hx of CABG x 3 (2012), CAD with 2 stents in 09/2024. On plavix. Last OV 01/2025. He denies CP, SOB, dizziness, palpitations, syncope, edema, recent hospitalizations Other medical history is significant for T2DM and osteoarthritis. Marie has undergone prior endoscopy. Last colonoscopy was 11/[address] Rivera at [facility]. Sedation:Midazolam 5 mg IV, Fentanyl 100 [...] Diagnosis Date Anemia, unspecified type Atherosclerosis of 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 Type II or unspecified [...] consents to surgery. Cardiac clearance sent to [facility]. Will keep patient on plavix & [...] edited and updated as necessary. Elvie Monterroso APRN.ELEMENTARY ART TEACHER [facility] 04-14-2025 History and physical note HISTORY AND PHYSICAL Marie Hutson : 1950 REFERRING PHYSICIAN: Barb Suggs [address] [facility] [place] [id number] CHIEF COMPLAINT: Patient presents with: Consult: For [...] ulcers/ peptic ulcer disease. Marie follows with [facility] for hx of CABG x 3 (2012), CAD with 2 stents in 09/2024. On plavix. Last OV 01/2025. He denies CP, SOB, dizziness, palpitations, syncope, edema, recent hospitalizations Other medical history is significant for T2DM and osteoarthritis. Marie has undergone prior endoscopy. Last colonoscopy was 11/[address] Rivera at [facility]. Sedation:Midazolam 5 mg IV, Fentanyl 100 [...] Diagnosis Date Anemia, unspecified type Atherosclerosis of 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 Type II or unspecified [...] consents to surgery. Cardiac clearance sent to [facility]. Will keep patient on plavix & [...] edited and updated as necessary. Elvie Monterroso APRN.ELEMENTARY ART TEACHER [facility] 04-14-2025 History and physical note UPDATED [...] : 1950 REFERRING PHYSICIAN: Barb Suggs [address] [facility] [place] [address] CHIEF COMPLAINT: Patient presents with: Consult: For [...] ulcers/ peptic ulcer disease. Marie follows with [facility] for hx of CABG x 3 (2012), CAD with 2 stents in 09/2024. On plavix. Last OV 01/2025. He denies CP, SOB, dizziness, palpitations, syncope, edema, recent hospitalizations Other medical history is significant for T2DM and osteoarthritis. Marie has undergone prior endoscopy. Last colonoscopy was 11/[address] Rivera at [facility]. Sedation:Midazolam 5 mg IV, Fentanyl 100 [...] Diagnosis Date Anemia, unspecified type Atherosclerosis of [place] arteries of the extremities with intermittent claudication [...] consents to surgery. Cardiac clearance sent to [facility]. Will keep patient on plavix & [...] : 1950 REFERRING PHYSICIAN: Barb Suggs [address] [facility] [place] [id number] CHIEF COMPLAINT: Patient presents with: Consult: For [...] ulcers/ peptic ulcer disease. Marie follows with [facility] for hx of CABG x 3 (2012), CAD with 2 stents in 09/2024. On plavix. Last OV 01/2025. He denies CP, SOB, dizziness, palpitations, syncope, edema, recent hospitalizations Other medical history is significant for T2DM and osteoarthritis. Marie has undergone prior endoscopy. Last colonoscopy was 11/[address] Rivera at [facility]. Sedation:Midazolam 5 mg IV, Fentanyl 100 [...] Diagnosis Date Anemia, unspecified type Atherosclerosis of [place] arteries of the extremities with intermittent claudication [...] consents to surgery. Cardiac clearance sent to [facility]. Will keep patient on plavix & [...] edited and updated as necessary. Elvie Monterroso APRN.ELEMENTARY ART TEACHER documented in this encounter [facility] 04-06-2025 Note HNO ID: [id number] Author: NARGIS YIN, DO Service: ? Author Type: Physician Type: Progress Notes Filed: 04/06/2025 09:38 Note Text: [facility] [place] DEPARTMENT OF VASCULAR SURGERY OUTPATIENT VISIT DATE [...] Diagnosis Date Anemia, unspecified type Atherosclerosis of [place] arteries of the extremities with intermittent claudication [...] mg SL tab (more content not included)... [facility] 04-06-2025 History of Present illness Narrative Images from the original note were not included. [facility] [place] DEPARTMENT OF VASCULAR SURGERY OUTPATIENT VISIT DATE [...] Diagnosis Date Anemia, unspecified type Atherosclerosis of [place] arteries of the extremities with intermittent claudication [...] to appointment today. documented in this encounter [facility] 04-06-2025 Note HNO ID: [id number] Author: GEM QUIROGA MA Service: ? Author Type: Ticket Writer Type: Progress Notes Filed: 04/06/2025 09:38 Note Text: Patient presents with: Follow Up: 1 year follow up PAD AMB ROOMING INTAKE FLOWSHEET DATA Patient denies any pain PVR done prior to appointment today. [facility] 03-18-2025 Note HNO ID: [id number] Author: ELVIE MONTERROSO APRN.ELEMENTARY ART TEACHER Service: ? Author Type: Nurse Practitioner Type: Progress Notes Filed: 03/18/2025 10:06 Note Text: HISTORY AND PHYSICAL Marie Hutson : 1950 REFERRING PHYSICIAN: Barb Suggs [address] [facility] [place] [address] CHIEF COMPLAINT: Patient presents with: Consult: For [...] ulcers/ peptic ulcer disease. Marie follows with [facility] for hx of CABG x 3 (2012), CAD with 2 stents in 09/2024. On plavix. Last OV 01/2025. He denies CP, SOB, dizziness, palpitations, syncope, edema, recent hospitalizations Other medical history is significant for T2DM and osteoarthritis. Marie has undergone prior endoscopy. Last colonoscopy was 11/[address] Rivera at [facility]. Sedation:Midazolam 5 mg IV, Fentanyl 100 [...] Diagnosis Date Anemia, unspecified type Atherosclerosis of [place] arteries of the extremities with intermittent claudication 09/07/2010 BENIGN NEOPLASM LG BOWEL 07/29/2008 Tubular adenoma. 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 Coronary artery disease Dermatophytosis of nail 12/29/2007 Diabetic peripheral neuropathy (HCC) 05/17/2014 Diabetic polyneuropathy associated with type 2 diabetes mellitus (HCC) DVT of leg (deep venous thrombosis) ([facility]) 11/16/2013 post-op CABG, rx with Xarelto Essential hypertension Hypertrophy of prostate without urinary obstruction and other lower urinary tract symptoms (LUTS) 12/29/2007 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/29/2007 Non-ST elevation myocardial infarction (NSTEMI) 10/17/2013 Non-STEMI (non-ST elevated myocardial infarction) ([facility]) 01/30/2024 LISANDRO to distal RCA Nonspecific abnormal [...] outpt Primary osteoarthritis of left knee 02/21/2018 [facility]. Type II or unspecified type diabetes mellitus without mention of complication, not stated as uncontrolled 12/29/2007 Unspecified essential hyper (more content not included)... [facility] 03-16-2025 Note HNO ID: [id number] Author: BRIAN GARSIA Tech Service: ? Author [...] PATIENT PRESENTS WITH AN IMPLANTABLE OR ATTACHED PRINTING ESTIMATOR: No RADIOLOGY DEPARTMENT: General X-ray: Exam(s) Completed: Upper Extremity X-Ray(s): Hand, bilateral PERIPHERAL IV DATA: Not applicable SIGNED BY: Arlene Goldstein March 16, 2025 11:37 AM [facility] 03-16-2025 Note HNO ID: [id number] Author: BARB SUGGS APRN.ELEMENTARY ART TEACHER Service: ? Author Type: Nurse Practitioner Type: [...] MD as PCP - General Barb Suggs APRN.ELEMENTARY ART TEACHER as Card Brusher (Internal Medicine) [facility] (Neurology) [facility] (Cardiology) Nargis Yin MD Vascular-[facility] Gomez Schwab DPM, Podiatry-[facility] Torch Operator-Hugh Delacruz/Dr. Edward Adams Racking Machine Operator- Christian Merritt Medical/Family history review Reviewed [...] discussed with the patient: Recording using ambient [employer] software for draft documentation of the visit was discussed with the patient/authorized commercial representative; all questions welcomed and answered. Patient/authorized commercial representative agreed to proceed Marie is a [...] He recently had two stents placed in [place] and is currently on Plavix, which he [...] heard. Pulmonary: Effort: (more content not included)... [facility] 03-04-2025 Telephone encounter Note Patient's request for medication is as follows: Requested Prescriptions Pending Prescriptions Disp Refills metoprolol tartrate, short acting, (LOPRESSOR) 25 mg tablet [Pharmacy Med Name: METOPROLOL TARTRATE 25 MG TAB] 360 tablet 0 Sig: TAKE 2 TABLETS BY MOUTH EVERY 12 HOURS Last seen in [place] 04/06/2024. Patient canceled 11/16/2024 follow up appointment. Notified pharmacy patient needs to schedule appointment for future refills Prescription(s) as above. Please process accordingly. Anabel Bhakta LPN [facility] 03-04-2025 Miscellaneous Notes Patient's request for medication is as follows: Requested Prescriptions Pending Prescriptions Disp Refills metoprolol tartrate, short acting, (LOPRESSOR) 25 mg tablet [Pharmacy Med Name: METOPROLOL TARTRATE 25 MG TAB] 360 tablet 0 Sig: TAKE 2 TABLETS BY MOUTH EVERY 12 HOURS Last seen in [facility] 04/06/2024. Patient canceled 11/16/2024 follow up appointment. Notified pharmacy patient needs to schedule appointment for future refills Prescription(s) as above. Please process accordingly. Anabel Bhakta LPN documented in this encounter [facility] 02-23-2025 Note HNO ID: [id number] Author: GOMEZ SCHWAB, ? Service: ? Author [...] the left anterior leg, performed by a disposal man, is healing without issues. - Denies current smoking. - Denies burning sensation in feet; reports tingling and numbness. Neurological: (+) tingling, (+) numbness, (-) burning PAST MEDICAL HISTORY Diagnosis Date Atherosclerosis of [place] george arteries of the extremities with intermittent claudication [...] Non-STEMI (non-ST elevated myocardial infarction) ([facility]) 01/30/2024 LISANDRO to distal RCA Nonspecific abnormal [...] - Left do (more content not included)... [facility] 02-23-2025 History of Present illness Narrative [...] the left anterior leg, performed by a disposal man, is healing without issues. - Denies current smoking. - Denies burning sensation in feet; reports tingling and numbness. Neurological: (+) tingling, (+) numbness, (-) burning PAST MEDICAL HISTORY Diagnosis Date Atherosclerosis of [place] george arteries of the extremities with intermittent claudication [...] follow-up in 3 months Attestation Recording using [employer] software for draft documentation of the visit was discussed with the patient/authorized commercial representative; all questions welcomed and answered. Patient/authorized commercial representative agreed to proceed Gomez Schwab DPM AMB ROOMING INTAKE FLOWSHEET DATA Patient presents with: Left Foot - Established Patient, Follow Up, Diabetic Foot Care, Numbness Right Foot - Established Patient, Follow Up, Diabetic Foot Care, Numbness Cheryle Merritt LPN documented in this encounter [facility] 02-23-2025 Instructions Gomez Schwab - 02/23/2025 [...] (or decreased sensation in your feet) a s3b multi sensor operator should always cut your toenails. Be Careful [...] Go to your health care provider or s3b multi sensor operator to treat these conditions. Continue to check [...] foot issues arise. documented in this encounter [facility] 02-23-2025 Note HNO ID: [id number] Author: CHERYLE MERRITT LPN Service: ? Author Type: LICENSED NURSE Type: Progress Notes Filed: 02/23/2025 12:47 Note Text: AMB ROOMING INTAKE FLOWSHEET DATA Patient presents with: Left Foot - Established Patient, Follow Up, Diabetic Foot Care, Numbness Right Foot - Established Patient, Follow Up, Diabetic Foot Care, Numbness Cheryle Merritt LPN [facility] 02-11-2025 Evaluation note Diagnosis Onset Date [...] 29, 2024 chronic February 11, 2025 1:10pm [facility] Work Phone: 1(414) 244-851104-17-2025 Evaluation note* Diagnosis Onset Date Resolution Status [...] of right hand acute May 06 1:58pm [facility] [employer] Work Phone: 1(732) 347-219304-07-2025 Telephone encounter Note* Telephone Encounter - Anabel [...] Anabel Ribera February 01, 2025 2:44 PM [facility]04-07-2025 Miscellaneous Notes* Telephone Encounter - Anabel [...] 01, 2025 2:44 PM [facility] Note12/31/24 1453 BPCI Outreach Assessment Selection [...] discharge services? No (Cardiac rehab scheduled at [place]) Any concerns with your DME equipment? N/A Any questions about your condition you are unsure about that I can help clarify? No Patient on BPCI Advanced: OP Patients Qualify for Cardiac Care and Cardiac Procedures from [facility] report 10/01/2024. EMR reviewed. Patient enrolled in [facility] Ambulatory Cardiac 90-day BPCI Program post-hospital discharge 09/30/24 Dx: PCI with IVL, LISANDRO to Left Main->Ramus Right radial artery used. Patient has a past medical history of DM with neuropathy, HTN, HLD, family history of premature CAD, prior tobacco use (quit), ocular TIA. He had a CABG in 2012. 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 WRIGHT to LAD was patent. At that time distal RCA was stented. He also had a severely stenotic calcified distal left main and ostial ramus. 90-day BPCI outreach made 12/01/24 patient doin well Cardiac Rehab scheduled at [place]. BPCI program is complete able to avoid any hospital readmissions during 90-day BPCI period case closed.[facility]03-04-2025 Note12/29/24 1249 General Care Management Assessment completed with: Patient Enrolled in care management program: Yes Living arrangement: Spouse Support system: Spouse Type of residence: Private residence Home care services: No Equipment used at home: None Communication device: Yes Bed or wheelchair confined: No Inadequate nutrition: No Medication adherence problem: No Difficulty keeping appointments: [facility]01-23-2025 History of Present illness Narrative* Josselin Gomez [...] with type 2 diabetes mellitus ([facility]) (I73.9) PAD (peripheral artery disease) ([facility]) Plan: Patient was seen and evaluated. Nails [...] Care Cheryle Merritt LPN [facility]2025 NoteHNO ID: [id number] Author: GOMEZ SCHWAB, ? Service: ? Author [...] Objective: Patient presents to clinic ambulating in [facility] Vasc: DP and PT pulses are [...] (I73.9) PAD (peripheral artery disease) ([facility]) Plan: Patient was seen and evaluated. Nails [...] to RTC in 3-4 months. Gomez Schwab [facility]01-23-2025 Instructions* Patient Instructions* Gomez Schwab - 11/19/2024 [...] (or decreased sensation in your feet) a s3b multi sensor operator should always cut your toenails. Be Careful [...] Go to your health care provider or s3b multi sensor operator to treat these conditions. [facility]2025 NoteHNO ID: [id number] Author: CHERYLE MERRITT LPN Service: ? Author Type: LICENSED NURSE Type: Progress Notes Filed: 11/19/2024 11:31 Note Text: AMB ROOMING INTAKE FLOWSHEET DATA Risk Screening Do you have concerns about personal safety or safety in the home?: No Patient presents with: Left Foot - Established Patient, Follow Up, Diabetic Foot Care Right Foot - Established Patient, Follow Up, Diabetic Foot Care Cheryle Merritt [facility]01-17-2025 NoteHNO ID: [id number] Author: SHER JULES MD Service: ? Author Type: Physician Type: Progress Notes Filed: 11/13/2024 13:56 Note Text: This note was created using [employer]og[employer]. Subjective Marie Hutson is a 74 year [...] Mixed Sleep Apnea Coronary Artery Disease Involving [place]ski Coronary Artery of [place] Heart Without Angina Pectoris Obesity, Class I, [...] Z95.5 2023. DAPT until 2024. Sher Jules [facility]01-17-2025 History of Present illness Narrative* Sher Jules MD - 11/13/2024 1:18 PM EST This note was created using [employer]oli[employer]. Subjective Marie Hutson is a 74 year [...] Mixed Sleep Apnea Coronary Artery Disease Involving Belkofski Coronary Artery of [place] Heart Without Angina Pectoris Obesity, Class I, [...] 2024. Sher Jules MD [facility]-2025 NoteHNO ID: [id number] Author: PALAK ROSALES LPN Service: ? Author [...] Palak Rosales LPN November 11, 2024 2:06 [facility]01-15-2025 History of Present illness Narrative* Palak Rosales [...] 11, 2024 2:06 PM documented in [facility]12-30-2024 NoteEMR reviewed. Patient on BPCI Advanced: OP Patients [facility] EMR reviewed. Patient enrolled in [facility] Cardiac 90-day BPCI Program post-hospital discharge 09/30/24 Dx: PCI with IVL, LISANDRO to Left Main->Ramus Right radial artery used. Patient has a past medical history of DM with neuropathy, HTN, HLD, family history of premature CAD, prior tobacco use (quit), ocular TIA. He had a CABG in 2012. 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 WRIGHT to LAD was patent. At that [...] reach out with any concerns. Future outreach scheduled.[facility]12-10-2024 Note Patient on BPCI Advanced: OP Patients Qualify for Cardiac Care and Cardiac Procedures from [facility] report 10/01/2024. EMR reviewed. Patient enrolled in [facility] Ambulatory Cardiac 90-day BPCI Program post-hospital discharge 09/30/24 Dx: PCI with IVL, ILSANDRO to Left Main->Ramus Right radial artery used. Patient has a past medical history of DM with neuropathy, HTN, HLD, family history of premature CAD, prior tobacco use (quit), ocular TIA. He had a CABG in 2012. 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 WRIGHT to LAD was patent. At that time distal RCA was stented. He also had a severely stenotic calcified distal left main and ostial ramus. BPCI outreach made unable to reach patient call forwarded to and then ended unable to leave a voice mail. Future outreach scheduled. Follow up 10/30/24 [facility] BOBBY Gan CNP Nurse Practitioner [...] Problem List Diagnosis Coronary artery disease involving [place] george coronary artery of [place] 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 WRIGHT to LAD was patent. At that [...] his medication list. Verified with his primary composing room machinist office, and he was to discontinue carvedilol [...] continue atorvastatin. HTN- contin (more content not included)...[facility]12-05-2024 Note Patient on BPCI Advanced: OP Patients Qualify for Cardiac Care and Cardiac Procedures from [facility] report 10/01/2024. EMR reviewed. Patient enrolled in [facility] Amb[facility] Cardiac 90-day BPCI Program [...] Problem List Diagnosis Coronary artery disease involving [place]. george coronary artery of [place] 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 WRIGHT to LAD was patent. At that [...] his medication list. Verified with his primary composing room machinist office, and he was to discontinue carvedilol [...] Cardiac rehab recommended- he will do in [place]. Follow up with Dr. Simeon. Secondary Discharge diagnosis: HLD- continue atorvastatin. HTN- continue metoprolol, clonidine, amlodipine, lisinopril. DM2- m (more content not included)...[id number] NoteName: Marie Hutson Date of : 1950 Date of Admission: 09/30/2024 Date of Discharge: 09/30/2024 Admitting physician: Sergei Collins MD Discharge Attending: Xochitl Solano APRN - ELEMENTARY ART TEACHER Primary Care Physician: Sher Jlues Review of Systems: Review of Systems Respiratory: [...] Problem List Diagnosis Coronary artery disease involving [place]. george coronary artery of [place] george heart without angina pectoris EKG: IMPRESSION: Sinus bradycardia Prolonged SC interval Borderline ST elevation, anterior leads TELEMETRY: SB 49 Procedures: Cath Summary: 09/30/24: Final report pending. PCI with IVL, LISANDRO to Left Main->Ramus Right radial artery used. HOSPITAL COURSE : Mr. Hutson is a 74 year old male known to Dr. Simeno who presents today for PCI by Dr. Collins. He has a past medical history of DM with neuropathy, HTN, HLD, family history of premature CAD, prior tobacco use (quit), ocular TIA. He had a CABG in 2012. 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 WRIGHT to LAD was patent. At that [...] his medication list. Verified with his primary composing room machinist office, and he was to discontinue carvedilol [...] Cardiac rehab recommended- he will do in [place]. Follow up with Dr. Simeon. Secondary Discharge [...] Inhibitors: Yes High-Intensity Statin: Yes Beta Luis Alebrto: Yes ACEi/ARB/ARNI: Yes Aldosterone Antagonist: No, not medically i (more content not included)...[facility]12-04-[facility] Hospital course Narrative* BOBBY Gan CNP - [...] Problem List Diagnosis Coronary artery disease involving st. george coronary artery of st. 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 WRIGHT to LAD was patent. At that [...] his medication list. Verified with his primary composing room machinist office, and he was to discontinue carvedilol [...] Cardiac Rehab The Cardiac Rehab team at [facility] consists of highly skilled exercise [...] your heart. We have facilities at both [facility] and [facility]. At both locations we have street level parking which is free and our sites are easily accessible. For both [place] you can contact us at . We invite you to call us with your questions or to get started in our program. If you have other questions or concerns be sure to ask your provider during your follow up visit. We look forward to seeing you there. Our locations: [facility] [address] [facility] [place]. Ground Floor [id number] - Ground floor BMI Classification: Overweight (BMI 25.0-29.9) DIET: A lowfat, low cholesterol diet was discussed with the patient. Discharge to Home Condition at Discharge: stable Follow up with cardiology Dr. Simeon on October 14, in 2 weeks. If any questions call [facility] Cardiology-[facility] office [phone] Total time spent for Discharge time greater than 31 minutes Cosigned by Sergei Collins MD at 09/30/2024 9:57 PM EST documented in this [facility]12-04-2024 Hospital Discharge instructions* Discharge Instructions* BOBBY Gan CNP - 09/30/2024 12:19 PM EST Restart Metformin Saturday. Stop carvedilol and HCTZ (this was stopped by [facility]). Continue all same medications. Follow up with Dr. Simeon. We recommend a follow up in 2 weeks. Call your doctor with any medication questions or if you notice any side effects from your medications. If you are unable to fill your medications, please call your Electronic Instrument Trades Worker immediately. The office number is located [...] for 24 hours. GIVE PCI PACKET (FROM COMMERCIAL SPECIALIST) TO PATIENT Give Coronary Artery Discharge [...] Cardiac Rehab The Cardiac Rehab team at [facility] consists of highly skilled exercise [...] your heart. We have facilities at both [facility] and [facility]. At both locations we have street level parking which is free and our sites are easily accessible. For both [facility] you can contact us at . We invite you to call us with your questions or to get started in our program. If you have other questions or concerns be sure to ask your provider during your follow up visit. We look forward to seeing you there. Our locations: [facility] [address] Ground Floor [id number] - Ground floor documented in this [facility]12-04-2024 Attending History and physical note* Sergei Collins MD - 09/30/2024 10:57 AM EST H&P reviewed. The patient was examined and there are no changes to the H&P. Source Note - BOBBY Rao CNP - 09/29/2024 2:25 PM EST Images from the original note were not included. ADDENDUM: Pt scheduled for [facility] with Dr. Collins on 09/30/24 at [...] no history of HF Frailty Score :3 [facility] Protocol: No H+ P copied to chart from Dr. Collins's progress note dated 09/16/[address] Collins. [facility] Cardiovascular Medicine [facility] [address] [facility] [address] Dept: [phone] Dept Loc: [phone] DATE of SERVICE: 09/16/24 TIME of SERVICE: [...] CREATININE @LASTCMP@ No results found for: TSH, F1NNUNN, F6CBBAM, THYROIDAB No results found for: HGBA1C No [...] CLINIC PERFORMED 2. Coronary artery disease involving [facility] george coronary artery of [place] ge[place] heart without angina pectoris - Case Request Cotton Chopper: Left heart cath / coronary angiography w [...] after Thanksgiving. Sergei Collins MD, RAH, FAC, [facility] Mall Manager, Department of Cardiovascular Disease Public Health Administrator, [facility] [place] Public Health Administrator, [facility] Anticoagulation Management Service Interventional Cardiology Clinical Professor of Internal Medicine, [facility] Cardiology-[place] [id number] p [phone] f [phone] [email or web address] Cosigned by Sergei Collins MD at 09/30/2024 9:57 PM EST [id number] NoteH&P reviewed. The patient was examined and there are no changes to the H&P.[facility]12-04-2024 History and physical note* Sergei Collins MD - 09/30/2024 10:57 AM EST H&P reviewed. The patient was examined and there are no changes to the H&P. Source Note - Bárbara Russell Larissaernie, LOCKER PLANT ATTENDANT - ELEMENTARY ART TEACHER - 09/29/2024 2:25 PM EST Images from the original note were not included. ADDENDUM: Pt scheduled for [facility] with Dr. Collins on 09/30/24 at [...] dated 09/16/[address] Collins. [facility] Cardiovascular Medicine [address] [address] Dept: [phone] Dept Loc: [phone] DATE of SERVICE: 09/16/24 TIME of SERVICE: [...] CREATININE @LASTCMP@ No results found for: TSH, H7FENTA, Q0YVHDO, THYROIDAB No results found for: HGBA1C No [...] CLINIC PERFORMED 2. Coronary artery disease involving [facility] george coronary artery of [place] george heart without angina pectoris - Case Request Cotton Chopper: Left heart cath / coronary angiography w grafts - Basic metabolic panel - CBC 3. Stented coronary artery 4. S/P CABG x 3 5. Family history of chronic ischemic heart disease 6. Diabetes mellitus type 2 in nonobese (CMS/HCC) ([facility]) 7. Primary hypertension 8. Mixed hyperlipidemia I [...] after Thanksgiving. Sergei Collins MD, RAH, FACC, [facility] Mall Manager, Department of Cardiovascular Disease Public Health Administrator, [facility] [place] Public Health Administrator, [facility] Anticoagulation Management Service Interventional Cardiology Clinical Professor of Internal Medicine, [facility] Cardiology-[address] [place] [address] p [phone] f [phone] [email or web address] Cosigned by Sergei Collins MD at 09/30/2024 9:57 PM EST documented in this [facility]12-04-2024 Note* Pre-Sedation Documentation - Sergei [...] and proceed to administer sedation as planned. [facility] [id number] Note* Pre-Sedation Documentation - Sergei Collins MD [...] and proceed to administer sedation as planned. [facility] [id number] Miscellaneous Notes* Pre-Sedation Documentation - Sergei Collins [...] administer sedation as planned. documented in this [facility]12-03-2024 NoteADDENDUM: Pt scheduled for [facility] [...] dated 09/16/[address] Collins. [facility] Cardiovascular Medicine [address] [address] Dept: [phone] Dept Loc: [phone] DATE of SERVICE: 09/16/24 TIME of SERVICE: [...] Nose: Nose normal. Mouth/Throat: (more content not included)...[facility]12-03-2024 NoteADDENDUM: Pt scheduled for LHC [...] no history of HF [facility]ilty Score :3 [facility] Protocol: No H+ P copied to chart from Dr. Collins's progress note dated 09/16/[address] Collins. [facility] Cardiovascular Medicine [facility] [address] [facility] [address] Dept: [phone] Dept Loc: [phone] DATE of SERVICE: 09/16/24 TIME of SERVICE: [...] Nose: Nose normal. Mouth/Throat: (more content not included)...[facility]11-20-2024 NoteDx: CAD Procedure: [facility] Date/Time: 09/30/24 at 11am Surgeon: Karina Location: [facility] Admission: OUTPATIENT Patient is aware of date and time of procedure, added to [place] calendar, CATH placed on [facility]11-20-2024 History of Present illness Narrative* Sergei Collins MD - 09/16/2024 2:00 PM EST Images from the original note were not included. [facility] Cardiovascular Medicine [facility] [address] [facility] [address] Dept: [phone] Dept Loc: [phone] DATE of SERVICE: 09/16/24 TIME of SERVICE: [...] CREATININE @LASTCMP@ No results found for: TSH, K3GNKIQ, U0RGVYQ, THYROIDAB No results found for: HGBA1C No [...] CLINIC PERFORMED 2. Coronary artery disease involving [facility] george coronary artery of [place] george heart without angina pectoris - Case Request Cotton Chopper: Left heart cath / coronary angiography w [...] week after Thanksgiving. Sergei Collins MD, RAH, [facility], [facility] Mall Manager, Department of Cardiovascular Disease Public Health Administrator, [facility] [place] Public Health Administrator, [facility] Anticoagulation Management Service Interventional Cardiology Clinical Professor of Internal Medicine, [facility] Cardiology-[address] [address] p [phone] f [phone] [email or web address] Disclaimer Captured images seen in this note from are not a substitute for a comprehensive interpretation of the entire data set as reflected by the interpreting physician with regard to radiology, echocardiography, and other diagnostic images. This note may have been dictated using [employer] Practice Edition 2.6 and/or Garden[employer] Voice Recognition Feature. The document was proofread, however unrecognized voice recognition pricing strategist errors may be present. documented in this [facility]11-19-2024 Telephone encounter Note* Telephone Encounter - Suellen Donovan RN - 09/15/2024 11:01 AM EST Patient calls and states that composing room machinist had changed his medications. Patient is not taking hydrochlorothiazide 25 mg daily and Atorvastatin 40 mg daily (patient was previously on 80 mg). Suellen Donovan RN [facility]11-19-2024 Miscellaneous Notes* Telephone Encounter - Suellen Donovan RN - 09/15/2024 11:01 AM EST Patient calls and states that composing room machinist had changed his medications. Patient is not taking hydrochlorothiazide 25 mg daily and Atorvastatin 40 mg daily (patient was previously on 80 mg). Suellen Donovan RN documented in this [facility]Mer[facility] Telephone encounter Note * Telephone Encounter - Suellen Donovan RN - 09/15/2024 10:41 AM EST Patient notified of results and provider's instructions. Patient verbalizes understanding. Suellen Donovan RN [facility]11-19-2024 Miscellaneous Notes* Telephone Encounter - Suellen [...] do in 2-3 weeks. documented in this encounterMer[facility]24 Telephone encounter Note * Telephone Encounter - Chloé Hernández RN - 09/15/2024 9:11 AM EST Called and left a voicemail for the patient to call back and ask for a nurse to receive the providers message. Also sent MyChart msg [facility]11-18-2024 Telephone encounter Note* Telephone Encounter - Palak Rosales LPN - 09/14/2024 1:18 PM EST Left message to call & speak to nurse re: results. Palak Rosales LPN [facility]11-18-2024 Telephone encounter Note* Telephone Encounter - Palak Rosales LPN - 09/14/2024 1:16 PM EST ----- Message from Sher Jules MD sent at 09/13/2024 2:02 PM EST ----- Hyponatremia. Hyperkalemia. Mild anemia. Follow up lab tests needed. Please do in 2-3 weeks. [facility]11-15-2024 NoteHNO ID: [id number] Author: SHER JULES MD Service: ? Author Type: Physician Type: Progress Notes Filed: 09/11/2024 12:11 Note Text: This note was created using [employer]. Subjective Patient presents with: 6 Month Exam [...] Mixed Sleep Apnea Coronary Artery Disease Involving Belkofski Coronary Artery of [place] Heart Without Angina Pectoris Obesity, Class I, [...] Plan ASSESSMENT/PLAN: 1. Coronary artery disease involving [facility] george coronary artery of [place] george heart without angina pectoris - ICD9: 414.01, ICD10: I25.10 (primary diagnosis) Stable. 2. Stented coronary artery - ICD9: V45.82, ICD10: Z95.5 Colonoscopy deferred till January 2025. 3. 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 - COMPLETE BLOOD COUNT 4. Hyperlipidemia with target LDL less than 70 - ICD9: 272.4, ICD10: E78.5 - Control undetermined, due for labs - Continue current medications - COMPREHENSIVE METABOLIC PANEL - LIPID PANEL, NONFASTING 5. Well controlled type 2 diabetes mellitus with neurological manifestations (more content not included)...[facility]11-15-2024 History of Present illness Narrative* Sher Jules MD - 09/11/2024 11:16 AM EST This note was created using [employer]oli[employer]. Subjective Patient presents with: 6 Month Exam [...] Mixed Sleep Apnea Coronary Artery Disease Involving Belkofski Coronary Artery of [place] Heart Without Angina Pectoris Obesity, Class I, [...] Plan ASSESSMENT/PLAN: 1. Coronary artery disease involving [facility] george coronary artery of [place] george heart without angina pectoris- ICD9: 414.01, ICD10: I25.10 (primary diagnosis) Stable. 2. Stented coronary artery - ICD9: V45.82, ICD10: Z95.5 Colonoscopy deferred till January 2025. 3. 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 - COMPLETE BLOOD COUNT 4. Hyperlipidemia with [...] URINE Sher Jules MD documented in this encounterMer[facility]24 Telephone encounter Note * Telephone Encounter [...] Lovell MA July 03, 2024 11:30 AM [facility]09-06-2024 Miscellaneous Notes* Telephone Encounter - Jayson [...] 03, 2024 11:30 AM documented in this encounterMercy [facility]09-[facility]-2024 Telephone encounter Note * Telephone Encounter [...] Lovell MA July 03, 2024 10:31 AM [facility]09-06-2024 Miscellaneous Notes* Telephone Encounter - Jayson [...] 03, 2024 10:31 AM documented in this encounterMercy [facility]08-30-2024 NoteHNO ID: [id number] Author: GOMEZ SCHWAB, ? Service: ? Author [...] Objective: Patient presents to clinic ambulating in [facility] Vasc: DP and PT pulses are faintly [...] to RTC in 3-4 months. Gomez Schwab [facility]08-30-2024 History of Present illness Narrative* Gomez Schwab [...] Objective: Patient presents to clinic ambulating in [facility] Vasc: DP and PT pulses are faintly [...] Care Cheryle Merritt LPN documented in this encounterMercy Health [facility]08-30-2024 NoteHNO ID: [id number] Author: CHERYLE MERRITT LPN Service: ? Author Type: LICENSED NURSE Type: Progress Notes Filed: 06/26/2024 13:20 Note Text: AMB ROOMING INTAKE FLOWSHEET DATA Patient presents with: Left Foot - Established Patient, Follow Up, Diabetic Foot Care Right Foot - Established Patient, Follow Up, Diabetic Foot Care [facility] Tele[facility] encounter Note* Telephone Encounter - Palak Rosales LPN - 06/16/2024 11:57 AM EDT Patient has refill for Metformin at [facility], written 02/25/2024. Marie will contact his pharmacy. Palak Rosales LPN [facility]08-20-2024 Miscellaneous Notes* Telephone Encounter - Palak Rosales LPN - 06/16/2024 11:57 AM EDT Patient has refill for Metformin at [facility], written 02/25/2024. Marie will contact his pharmacy. Palak Rosales LPN documented in this encounterMercy [facility]06-11-2024 History of Present illness Narrative* Nargis Yin, - 04/07/2024 9:17 AM EDT Images from the original note were not included. Heart , Vascular and Thoracic [place] DEPARTMENT OF VASCULAR SURGERY OUTPATIENT VISIT DATE [...] patches (vein to each profunda, Bovine to RETAIL AGENT to SFA origins. Extensive profundaplasty on left. November 2009 Hx L SFA atherectomy complicated by thrombus requiring thrombolysis and stent of popliteal. September 07, 2010 RLE PYROTECHNIC MIXER to 3mm, Atheterctomy and PYROTECHNIC MIXER to 6mm. Also with right retrograde PT access. Left stent was patent at that time with 80% stenosis of distal popliteal. R with 80% profunda lesion. 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 Coronary artery disease Dermatophytosis of nail 12/29/2007 Diabetic peripheral neuropathy (HCC) 05/17/2014 DVT of leg (deep venous thrombosis) ([facility]) 11/16/2013 post-op CABG, rx with Xarelto Hypertrophy of prostate without urinary obstruction and other lower urinary tract symptoms (LUTS) 12/29/2007 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/29/2007 Non-ST elevation myocardial infarction (NSTEMI) 10/17/2013 Nonspecific abnormal results of liver function study 04/29/2008 Obesity, unspecified 12/29/2007 Other and unspecified hyperlipidemia PAD (peripheral artery disease) ([facility]) 08/05/2009 Personal history of other malignant neoplasm [...] 180 days. Miscellaneous Medical Supply (COMPRESSION STOCKINGS) [facility] [place] [place] COMPRESSION STOCKINGS KNEE HI [...] 2024 TIME: 9:18 AM documented in this encounterMercy [facility]06-11-[facility] History of Present illness Narrative* Gem Bass MD - 04/07/2024 8:10 AM EDT HISTORY AND PHYSICAL Marie Hutson 1950 REFERRING PHYSICIAN: Sher Jules MD CHIEF COMPLAINT: Colonoscopy Consult (Last colonoscopy 11/2018) HPI: The patient is a 74 year old male referred for endoscopy. Marie notes recent NV in January of this year; he had two stents placed for CAD. He is presently on plavix. He denies blood in stools; he denies abdominal pain; he denies changes in bowel habit.s He had a colonoscopy in 2019 with findings of a tubular adenoma He denies chest pain or shortness of breath. 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 Coronary artery disease Dermatophytosis of nail 12/29/2007 Diabetic peripheral neuropathy (HCC) 05/17/2014 DVT of leg (deep venous thrombosis) ([facility]) 11/16/2013 post-op CABG, rx with Xarelto Hypertrophy of prostate without urinary obstruction and other lower urinary tract symptoms (LUTS) 12/29/2007 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/29/2007 Non-ST elevation myocardial infarction (NSTEMI) 10/17/2013 Nonspecific abnormal results of liver function study 04/29/2008 Obesity, unspecified 12/29/2007 Other and unspecified hyperlipidemia PAD (peripheral artery disease) ([facility]) 08/05/2009 Personal history of other malignant neoplasm of skin 11/05/2010 skin cancer Postoperative anemia 10/25/2013 Transfused on 10/25 1 U PRBC. H&H 9.2/26.3. DC on diuretic taper for dilutional component and MVI with iron and repeat as outpt Primary osteoarthritis of left knee 02/21/2018 [facility]. Type II or unspecified [...] 180 days. Miscellaneous Medical Supply (COMPRESSION STOCKINGS) [facility] [place] COMPRESSION STOCKINGS KNEE HI [...] Assessment IMPRESSION: history of colon polyp, recent NV PLAN: I have discussed the above with the patient. Given his recent NV, it would be reasonable to postpone colonoscopy [...] colonic polyps (I25.10) Coronary artery disease involving st. george coronary artery of [place] george heart, unspecified whether angina present I have confirmed and edited as necessary, the PFSH and ROS obtained by others. Consultation requested by Dr. Sher Jules for an opinion regarding patient's history of colon polyp and recent NV. My final recommendations will be communicated back to the requesting physician by way of shared Medical record or letter to requesting physician via US mail. Medical Decision Making: Problems: Low: Stable chronic illness Risk: Low: Low risk from testing/treatment Medical Decision Making Level: 3 - Low Gem Bass MD documented in this encounterMercy [facility]06-10-2024 History of Present illness Narrative* Bib Patterson MD - 04/06/2024 5:28 PM EDT Images from the original note were not included. Bib Patterson MD Interventional Cardiology [address] [place] [address] [phone] Chief Complaint Patient presents with: Follow Up HISTORY OF PRESENT ILLNESS: Mr. Hutson is a 74 year old male seen in my office today for assessment management patient had prior history of severe two-vessel coronary artery disease with bypass surgery WRIGHT to the LAD vein graft to the right and vein graft to the recently admitted to [facility] because of unstable angina underwent stenting of the st[place] 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 Coronary artery disease Dermatophytosis of nail 12/29/2007 Diabetic peripheral neuropathy (HCC) 05/17/2014 DVT of leg (deep venous thrombosis) ([facility]) 11/16/2013 post-op CABG, rx with Xarelto Hypertrophy of prostate without urinary obstruction and other lower urinary tract symptoms (LUTS) 12/29/2007 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/29/2007 Non-ST elevation myocardial infarction (NSTEMI) 10/17/2013 Nonspecific abnormal results of liver function study 04/29/2008 Obesity, unspecified 12/29/2007 Other and unspecified hyperlipidemia PAD (peripheral artery disease) ([facility]) 08/05/2009 Personal history of other malignant neoplasm of skin 11/05/2010 skin cancer Postoperative anemia 10/25/2013 Transfused on 10/25 1 U PRBC. H&H 9.2/26.3. DC on diuretic taper for dilutional component and MVI with iron and repeat as outpt Primary osteoarthritis of left knee 02/21/2018 [facility]. Type II or unspecified [...] marginal Status post drug-eluting stent to the st. george right continue medical therapy 4. Coronary artery disease involving [facility]. george coronary artery of [place] george heart without angina pectoris- ICD9: 414.01, ICD10: [...] to correct any errors. documented in this encounterMercy [facility]06-10-2024 Instructions* Patient Instructions* Gem Bass MD [...] If you do not have a responsible electric screw driver operator (family member or friend) with you to [...] preparation solution at your local pharmacy [facility] 09/2019 Bowel Preparation Instructions for: [...] your exam. 2 09/2019 documented in this encounterMercy Health [facility]05-17-2024 History of Present illness Narrative* Gomez [...] (I73.9) PAD (peripheral artery disease) ([facility]) (E11.42) Diabetic polyneuropathy associated with type 2 [...] Care Cheryle Merritt LPN documented in this encounterMercy Health Defiance Hospital05-16-2024 NoteHNO ID: [id number] Author: ADILENE SANCHEZ APRN.CNM Service: Nuclear Medicine Author Type: Inspecting Engineer Type: Progress Notes Filed: 03/12/2024 09:38 Note [...] PATIENT PRESENTS WITH AN IMPLANTABLE OR ATTACHED PRINTING ESTIMATOR: No CREATININE: Creatinine Date Value Ref Range [...] Discontinued PROCEDURE TYPE: NM Stress: 13.27 mCi [id number] was administered IV for Rest Imaging at 07:25 by JEVANGELINA. 33.96 mCi [id number] was administered IV for Stress Imaging at 08:07 by JEVANGELINA. ADMINISTRATION TIME: 07:25 PATIENT DISCHARGED TO: Ambulatory patient, left IN department area. A Diagnostic radioactive procedure has taken place, with no further precautions necessary other than routine body substance precautions. More information regarding radiation safety can be found using this link: [email or web address] 20Diagnostic%20Nuclear%20Medicine%20Procedures.pdf SIGNATURE: Adilene Sanchez APRN.CNM PATIENT NAME: Marie Hutson DATE: March 12, 2024 TIME: 9:37 AM PAG[facility]CONTA[phone] History of Present illness Narrative* Adilene Sanchez [...] PATIENT PRESENTS WITH AN IMPLANTABLE OR ATTACHED PRINTING ESTIMATOR: No CREATININE: Creatinine Date Value Ref Range [...] Discontinued PROCEDURE TYPE: NM Stress: 13.27 mCi Gh27b-Wokqjvw was [facility] mCi Jw90h-Jnlfhhl was administered IV for Stress Imaging at 08:07 by [facility]. ADMINISTRATION TIME: 07:25 PATIENT DISCHARGED TO: Ambulatory patient, left NM department area. A Diagnostic radioactive procedure has taken place, with no further precautions necessary other than routine body substance precautions. More information regarding radiation safety can be found usingthis link: [email or web address]-% 20Diagnostic%20Nuclear%20Medicine%20Procedures.pdf SIGNATURE: Adilene Sanchez APRN.CNM PATIENT NAME: Marie Hutson DATE: March 12, 2024 TIME: 9:37 AM PAGER/CONTACT #: documented in this encounterMercy Health Defiance [facility]05-15-2024 Telephone encounter Note * Telephone Encounter - Edelmira Wilks RN - 03/11/2024 1:16 PM EDT Left message regarding reminder and instructions for stress test tomorrow. This included where to check in, length of test and no caffeine for 12 hours prior to test, [facility]05-15-[facility]24 Miscellaneous Notes* Telephone Encounter - Edelmira Wilks RN - 03/11/2024 1:16 PM EDT Left message regarding reminder and instructions for stress test tomorrow. This included where to check in, length of test and no caffeine for 12 hours prior to test, documented in this encounterMercy Health Defiance Hospital05-15-2024 History of Present illness Narrative* Sher Jules MD - 03/11/2024 12:50 PM EDT This note was created using [employer]. Subjective Marie Hutson is a 74 year [...] Mixed Sleep Apnea Coronary Artery Disease Involving Belkofski Coronary Artery of [place]ski Heart Without Angina Pectoris Obesity, Class I, [...] 180 days. Miscellaneous Medical Supply (COMPRESSION STOCKINGS) [facility] [place] KNEE HI [...] - stable. 5. Coronary artery disease involving [place]. george coronary artery of [place] george heart without angina pectoris- ICD9: 414.01, ICD10: [...] Vascular-[facility] Gomez Schwab DPM, Podiatry-[facility] Outside Specialist: Torch Operator-Hugh Delacruz/Dr. Edward Adams Racking Machine Operator- Christian Merritt Medical/Family history review Reviewed [...] in the past 6 weeks? Yes / [place] 01/28/2024, [facility] for [place] 8. Have you had difficulty with anesthesia [...] access questionnaires to [facility] Pool #[id number] documented in this encounterMercy Health Defiance Hospital05-15-2024 Instructions* Patient Instructions* Sher Jules MD - 03/11/2024 11:30 AM EDT FASTING LABS ANY TIME SOON, PLUS URINE TESTING. documented in this encounterMercy Health Defiance Hospital04-30-2024 Telephone encounter Note * Telephone Encounter [...] oz) Not applicable Please advise. Anabel Ribera [facility]04-30-2024 Miscellaneous Notes* Telephone Encounter - Anabel [...] advise. Anabel Nguyen Pss documented in this encounterMercy Health Defiance Hospital04-15-2024 History of Present illness Narrative* Bib Patterson MD - 02/10/2024 4:16 PM EDT Images from the original note were not included. Bib Patterson MD Interventional Cardiology [address] [place] [address] Chief Complaint Patient presents with: Hospital F/U [...] marginal artery years ago recently admitted to [facility] because of unstable angina repeat cardiac catheterization revealedpatent WRIGHT to the LAD severe calcified st. george left main disease with patent vein graft [...] PAST MEDICAL HISTORY Diagnosis Date Atherosclerosis of [place]. 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 Type II or unspecified [...] tablet 3 Miscellaneous Medical Supply (COMPRESSION STOCKINGS) [facility] [place] COMPRESSION STOCKINGS KNEE HI [...] Plan: 75 years old gentleman with severe [place]. george coronary artery disease and history of bypass [...] medical therapy - CARDIAC REHAB II OUTPT (ND,MT) - NM CARDIAC PERF STRESS/PHARM - REGADENOSON [...] to correct any errors. documented in this encounterMercy Health Defiance Hospital04-12-2024 History of Present illness Narrative* Sher Jules MD - 02/07/2024 1:52 PM EDT This note was created using [employer]. Subjective Patient presents with: Hospital F/U: D/c from [facility] on 01/29 for chest pain an [...] Mixed Sleep Apnea Coronary Artery Disease Involving Belkofski Coronary Artery of Belk[place]ski Heart Without Angina Pectoris Obesity, Class I, [...] with meals. Miscellaneous Medical Supply (COMPRESSION STOCKINGS) [facility] [place] COMPRESSION STOCKINGS KNEE HI [...] decreasing. Sher Jules MD documented in this encounterMercy Health Defiance Hospital04-11-2024 Miscellaneous Notes* Telephone Encounter - Manda Duran MA - 02/06/2024 12:46 PM EDT Pt's notified that requested images have been received and are uploaded to [employer]. Pt scheduled 3pm Saturday per Dr. Patterson [...] have requested actual images be pushed to [facility] for his review. Manda Duran MA * Telephone Encounter - Manda Duran MA - 02/03/2024 11:53 AM EDT [facility] notified of need for images of [...] to update Dr. Patterson. Pt went to [facility] with chest pain and was admitted. [...] CTA and HC notes are scanned into [facility]. Asking that we call back to pt's . [phone] Please review and advise. Manda Duran MA documented in this encounterMercy Health Defiance Hospital04-08-2024 History of Present illness Narrative* Marcela [...] years. Marcela Perrin, RN documented in this encounterMercy Health Defiance Hospital04-05-2024 History of Present illness Narrative* Lorraine BeebeFAVIAN - 01/31/2024 2:49 PM EDT TRANSITION CARE MANAGEMENT (TCM) INITIAL CONTACT Ticket Writer Outreach Provider Action/FYI: TCM Initial contact with patient post discharge, spoke to patient. Patient identified by name and . TRANSITION CARE MANAGEMENT INITIAL OUTREACH DOCUMENTATION: 01/31/2024 Date of Outreach: Outreach Attempt 1: Contact Made Date of Discharge 01/30/2024 SUMMARY: -Pt discharged from [facility] on 02/19/24. -Admitted for: acute chest [...] medicines at this time. documented in this encounterMercy Health Defiance Hospital04-04-2024 Discharge summary Author Debby Machuca [facility] January 30, 2024 11:40am Note Date/Time January 30, 2024 11:4 0am [facility] System Medical Records Department [address] [place] [address] Instructions for Home/Discharge Instructions 01/30/24 1140 MR#: [id number] Acct: [id number] Name: MARIE HUTSON Rep #:[id number] : [...] MD; Dr. Sher Jules MD ~ Signed [facility] Work Phone: 1(535) 783-285504-04-2024 Discharge summary Author [facility] January 30, 2024 2:03pm Note Date/Time January 30, 2024 11:[address] [place] [address] Health System Medical Records Department [address] [place] [address] Discharge Summary 01/30/24 1140 MR#: [id number] Acct: [id number] Name: MARIE HUTSON Rep #:[id number] : [...] Code(s): I25.10 - Atherosclerotic heart disease of st. george coronary artery without angina pectoris (3) History of coronary artery bypass graft x 3: Status: Acute Code(s): Z95.1 - Presence of aortocoronary bypass graft (4) Hypertension: Status: Chronic Code(s): I10 - Essential (primary) hypertension (5) Dyslipidemia: Status: Acute Code(s): E78.5 - Hyperlipidemia, unspecified Plan #Chest pain * Recent long distance drive to [place]. CT of the chest was overall negative [...] had a recent 16-hour car drive from [place] for few days prior to admission. He [...] Alberto at discharge?: Yes Done w/ Acute [place] measure.: Yes Documented LVEF (%): 60 Discharge [...] Self Care Charges/Coding Visit Charges Inpatient E&M: 32259 Disch Hosp >30min 01/30/24 1403 <Electronically signed by Debby Machuca MD> Cosigner Signature (if applicable): CC: Dr. Debby Machuca MD; Dr. Sher Jules MD~ Signed [facility] Work Phone: 1(392) 421-395804-04-2024 Progress note Author Rubio Simeon [facility] January 30, 2024 9:25am Note Date/Time January 30, 2024 9:25 am [facility] System Medical Records Department [address] [place] [address] Progress Note - Cardiology 01/30/24 0921 MR#: [id number] Acct: [id number] Name: MARIE HUTSON Rep #:[id number] : [...] MPV 9.1, Sodium 135 L, Potassium 3.5, Rywtyvvm697, Carbon Dioxide 28.0, Anion Gap 6, BUN [...] PLAN: Will try to get records from [facility]. (4) Hypertension: PLAN: Beta-blockers, amlodipine, clonidine, lisinopril. (5) Dyslipidemia: PLAN: Continue atorvastatin. PLAN: Plan The patient's blood pressure is controlled, then may discharge home later in theday. Patient wishes to follow-up with own composing room machinist. 01/30/24 0925 <Electronically signed by Rubio Simeon MD> Cosigner Signature (if applicable): CC: ~ Signed [facility] Work Phone: [phone]) 842-525904-04-2024 Progress note Author [facility] January 30, 2024 6:36am Note Date/Time January 30, 2024 6:36 am [facility] Medical Records Department [address] [place] [address] Progress Note - Hospitalist 01/30/24 0635 MR#: [id number] Acct: [id number] Name: MARIE HUTSON Rep #:[id number] : 1950 74 From: Geeta Mendoza MD PCP: Dr. Sher Jules MD Status:A DM IN [facility]: [facility]ist Note Telemetry per discussion with staff this AM with questionable PAF, appears intermittent. Every EKG attempt however with SR. 01/30/24 0636 <Electronically signed by Geeta Mendoza MD> Cosigner Signature (if applicable): CC: ~ Signed [facility] Work Phone: [phone] Progress note Author Debby [facility] January 29, 2024 3:33pm Note Date/Time January 29, 2024 2:31 pm [facility] Medical Records Department [address] [place] [address] Progress Note 01/29/24 1422 MR#: [id number] Acct: [id number] Name: MARIE HUTSON Rep #:[id number] : [...] 91.9 H, Lymph % (Auto) 4.6 L, [place] % (Auto) 2.2, Eos % (Auto) 0.0, [...] 3.9 01/28/24 20:36: Troponin I High Sens 72546 H*, Procalcitonin 0.04 01/28/24 23:04: POC Glucose 240 H 01/28/24 23:23: Urine Color Yellow, Urine Clarity Clear, Urine pH 6.0, Ur Specific [place] 1.010, Urine Protein Negative, Urine Glucose (UA) [...] APTT 73.0 H, Troponin I High Sens 51563 H* 01/29/24 03:01: WBC 15.5 H, RBC 2.68 L, Hgb 8.8 L, Hct 24.9 L, MCV 92.9, MCH 32.8 H, MCHC 35.3, RDW Std Deviation 39.3, RDW Coeff of Cedric 11.7, Plt Count 296,MPV 9.3, Immature Gran % (Auto) 0.700, Neut % (Auto) 88.5 H, Lymph % (Auto) 4.7 L, Mid[place] % (Auto) 6.0, Eos % (Auto) 0.0, [...] Sher Jules M.D. Performed By: Rupa Ramires, [facility] Physical Exam Const alert, oriented [...] pain * Recent long distance drive to [place]. CT of the chest was overall negative [...] cath. SCDs. Charges/Coding Visit Charges Inpatient E&M: 39576 Subs Hosp L2 01/29/24 1533 <Electronically signed by Debby Machuca MD> Debby Machuca MD Cosigner Signature (if applicable): CC: ~ Signed [facility] Work Phone: 1(265) 535-118104-03-2024 Discharge summary Author Kvng Jacobson [facility] January 28, 2024 10:13pm Note Date/Time January 28, 2024 6:11 pm [facility] Health System Medical Records Department [address] [place] [address] Emergency Department Summary 01/28/24 MR#: [id number] Acct: [id number] Name: MARIE HUTSON Rep #:[id number] : 1950 74 From: Kvng Jacobson DO PCP: Dr. Sher Jules MD Status:A DM IN Location: ICU ICU-[facility] History of Present Illness Chief Complaint: Chest Pain [facility] Medical History Branch retinal artery occlusion [...] patient but he himself had canceled the [employer]. He also informed me that MRI does [...] 91.9 H Lymph % (Auto) 4.6 L Midland % (Auto) 2.2 Eos % (Auto) 0.0 [...] procedures): 30-74 minutes (40), Discussing w/Patient &/or Family/Asbestos Shingle Roofer, Discussing w/Consultants, Arranging Admission or Transfer and Performing Direct Patient Care at Bedside Discharge Plan Disposition Disposition: Acute Care Hospital [facility] Discharge Date/Time: 01/28/24 22:06 What to do if you have Problems For any increased pain, shortness of breath, bleeding, nausea or vomiting, chestpain, or any unexpected problems, contact your Primary Care Provider. Call [facility] ([phone]) or report to the closest Emergency Room. Call 911 if necessary. 01/28/242212 <Electronically signed by Kvng Jacobson DO> Cosigner Signature (if applicable): CC: Dr. Sher Jules MD ~ Signed [facility] Work Phone: [phone]) 826-921104-03-2024 History and physical note Author Geeta Mendoza [facility] January 28, 2024 10:12pm Note Date/Time January 28, 2024 7:42 pm [facility] System Medical Records Department [address] [place] [address] H&P Exam - Hospitalist 01/28/241924 MR#: [id number] Acct: [id number] Name: MARIE HUTSON Rep #:[id number] : 1950 74 From: Geeta Mendoza MD PCP: Dr. Sher Jules MD Status:A DM IN [facility] - General General Date of Admission: 01/28/24 Date of Service: 01/28/24 Chief Complaint: Chest pain HPI Narrative The patient is a 74 y/o M w/ PMHx: CAD s/p reported failed CABG 10/20/2013 with unclear intervention attempts, HTN, HLD, Diabetes mellitus type with chronic neuropathy, Former tobacco use, Chronic venous stasis disease, Obesity who presents to the [facility] ED on 01/28/24 with history of approximately 2 months prior having significant discomfort in his joints primarily of the bilateral wrist andhands however he had been in [place] and using his motorcycle quite a bit recentlyreturning via a very long at least 16-hour car drive from [place] this Saturday prior to current presentation with [...] however pending these workup findings. [facility] Medical History Branch retinal artery occlusion CAD [...] 91.9 H, Lymph % (Auto) 4.6 L, Mid[place] % (Auto) 2.2, Eos % (Auto) 0.0, [...] stasis disease, Obesity who presents to the [facility] ED on 01/28/24 with history of [...] #6. CAD: Status post attempted CABG at [facility] 10/16/2013 supposedly failed, records requested, [...] 16 minutes. Charges/Coding Visit Charges Inpatient E&M: 23971 Init Hosp L3 Procedures Hospitalists Procedures: 31999 Advncd Care Plan 30 Min 01/28/241947 <Electronically [...] MD; Dr. Sher Jules MD ~* Signed [facility] Work Phone: 1(617) 424-281404-02-2024 History and physical note Author [facility] January 28, 2024 7:53pm Note Date/Time January 28, 2024 7:42 pm [facility] System Medical Records Department [address] [facility] [place] [address] H&P Exam - Hospitalist 01/28/241924 MR#: [id number] Acct: [id number] Name: MARIE HUTSON Rep #:[id number] : [...] stasis disease, Obesity who presents to the [facility] ED on 01/28/24 with history of approximately 2 months prior having significant discomfort in his joints primarily of the bilateral wrist andhands however he had been in [place] and using his motorcycle quite a bit recentlyreturning via a very long at least 16-hour car drive from [place] this Saturday prior to current presentation with [...] however pending these workup findings. [facility] Medical History Branch retinal artery occlusion CAD (coronary artery disease) Diabetes mellitus, type 2 Former tobacco use Hyperlipemia Hypertension Obesity Home Medications aspirin 81 mg tablet,delayed release (Adult Low Dose Aspirin) [address] [facility] 04/18/16 [History Last Taken 04/19/16] metformin 500 [...] 91.9 H, Lymph % (Auto) 4.6 L, [place] % (Auto) 2.2, Eos % (Auto) 0.0, [...] 19:35 EDT Reading Location ID and State: [facility] / [place] Tel , Service support , Assessment & Plan Assessment/Plan (1) Chest pain: PLAN: Plan The patient is a 74 y/o M w/ PMHx: CAD s/p reported failed CABG 10/20/2013 with unclear intervention attempts, HTN, HLD, Diabetes mellitus type with chronic neuropathy, Former tobacco use, Chronic venous stasis disease, Obesity who presents to the [facility] ED on 01/28/24 with history of [...] #6. CAD: Status post attempted CABG at [facility] 10/16/2013 supposedly failed, records requested, [...] 16 minutes. Charges/Coding Visit Charges Inpatient E&M: 79893 Init Hosp L3 Procedures Hospitalists Procedures: 05204 Advncd Care Plan 30 Min 01/28/241947 <Electronically [...] MD; Dr. Sher Jules MD ~* Signed [facility] Work Phone: 1(865) 388-748604-02-2024 Consult note Author Rubio Simeon [facility] January 28, 2024 7:10pm Note Date/Time January 28, 2024 7:09 pm [facility] Medical Records Department [address] [place] [address] Consultation - Cardiology 01/28/24 1858 MR#: [id number] Acct: [id number] Name: MARIE HUTSON Rep #:[id number] : [...] PLAN: Will try to get records from [facility]. (4) Hypertension: PLAN: Nitrates. Start beta-blockers. Continue patient's amlodipine and clonidine. Also on ACEI. (5) Dyslipidemia: PLAN: Continue atorvastatin. HPI Consult Data Date of Consult: 01/28/24 HPI Narrative Reason for Consultation: Left arm pain HPI Narrative: This gentleman has past medical history significant for coronary artery disease with three-vessel CABG in 2012 at the [facility]. According to the patient, for the past [...] had a long road trip, driving from [place] to here over the weekend. According to him, it was a 15-hour drive. [facility] Medical History (Updated 01/28/24 @ 19:05 by [...] 91.9 H, Lymph % (Auto) 4.6 L, [place] % (Auto) 2.2, Eos % (Auto) 0.0, [...] 91.9 H, Lymph % (Auto) 4.6 L, [place] % (Auto) 2.2, Eos % (Auto) 0.0, [...] Simeon MD; Dr. Sher Jules MD~ Signed [facility] Work Phone: [phone]) 227-362404-01-2024 History of Present illness Narrative* Caterina Cornell, [...] PATIENT PRESENTS WITH AN IMPLANTABLE OR ATTACHED PRINTING ESTIMATOR: No RADIOLOGY DEPARTMENT: General X-ray: Exam(s) Completed: Upper Extremity X- Ray(s): Wrist, bilateral PERIPHERAL IV DATA: Not applicable SIGNED BY: RT Micky(R) 2024 3:33 PM documented in this encounterMercy Health Def[facility]04-01-2024 Instructions* Patient Instructions* Barb Suggs APRN.CNP [...] help with the pain. documented in this encounterMercy Health Defiance Hospital04-01-2024 History of Present illness Narrative* Barb Suggs APRN.CNP - 2024 3:05 PM EDT CC: Patient presents with: Arm Pain: X 6 weeks HPI Marie Hutson is a 74 year old male who presents today for above. He developed bilateral hand painthat started about 6 weeks ago when he was on vacation in [place]. Had been riding his motorcycle frequently while [...] 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 BPH without obstruction/lower urinary tract symptoms 12/29/2007 Coronary artery disease Dermatophytosis of nail 12/29/2007 Diabetic peripheral neuropathy (HCC) 05/17/2014 DVT of leg (deep venous thrombosis) ([facility]) 11/16/2013 post-op CABG, rx with Xarelto Hypertrophy of prostate without urinary obstruction and other lower urinary tract symptoms (LUTS) 12/29/2007 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/29/2007 Non-ST elevation myocardial infarction (NSTEMI) 10/17/2013 Nonspecific abnormal results of liver function study 04/29/2008 Obesity, unspecified 12/29/2007 Other and unspecified hyperlipidemia PAD (peripheral artery disease) ([facility]) 08/05/2009 Personal history of other malignant neoplasm of skin 11/05/2010 skin cancer Postoperative anemia 10/25/2013 Transfused on 10/25 1 U PRBC. H&H 9.2/26.3. DC on diuretic taper for dilutional component and MVI with iron and repeat as outpt Primary osteoarthritis of left knee 02/21/2018 [facility]. Type II or unspecified [...] with meals. Miscellaneous Medical Supply (COMPRESSION STOCKINGS) [facility] [place] COMPRESSION STOCKINGS KNEE HI [...] Patient agreeable to treatment plan. Barb Suggs APRN.ELEMENTARY ART TEACHER documented in this encounterMercy Health Def[facility] Hospital04-01-2024 Miscellaneous Notes* Telephone Encounter - Jayson [...] you. Jayson Lovell MA. documented in this encounterMercy Health Defiance Hospital04-01-2024 Miscellaneous Notes* Telephone Encounter - Jayson [...] you. Jayson Lovell MA. documented in this encounterMercy Health Defiance Hospital04-01-2024 Miscellaneous Notes* Telephone Encounter - Colleen [...] time as the pain. Protocols used: Arm [id number] documented in this encounterMercy Health Defiance Hospital03-11-2024 Miscellaneous Notes* Telephone Encounter - Madeleine Cisneros - 01/06/2024 9:40 AM EDT Patient said [place] of [place] and wants to know if short term refills can be sent to [place], [place]. Needs 20 day supply of hydralazine [...] Thank you. Madeleine Ribera. documented in this encounterMercy Health Defiance Hospital02-23-2024 Miscellaneous Notes* Telephone Encounter - Marta [...] you. Suellen Donovan RN. documented in this encounterMercy Health Defiance Hospital01-04-2024 History of Present illness Narrative* Kathy [...] Objective: Patient presents to clinic ambulating in [facility] Vasc: DP and PT pulses are [...] diabetes mellitus with neurological manifestations ([facility]) (I73.9) PAD (peripheral artery disease) ([facility]) (L85.9) Hyperkeratosis (L60.0) Ingrowing toenail with infection [...] months. Gomez Schwab DPM documented in this encounterMercy Health Defiance Hospital01-04-2024 Instructions* Patient Instructions* Gomez Schwab - [...] (or decreased sensation in your feet) a s3b multi sensor operator should always cut your toenails. Be Careful [...] Go to your health care provider or s3b multi sensor operator to treat these conditions. Cleanse left great toe with saline daily. Apply topical antibiotic Can f/u in 1 week for evaluation of wound or in 3 months documented in this encounterMercy Health Defiance Hospital11-14-2023 History of Present illness Narrative* Veronica [...] 10, 2023 8:25 AM documented in this encounterMercy Health Defiance Hospital10-13-2023 History of Past illness Narrative* Problem [...] 10/23/2013 Overview: 63 y/o M, lives in [place], [place]. No skilled needs. DC home, requested f/u outpt CTS LAUNDRY ROUTEMAN within one week, Dr. Phi Heredia for new cards and Preventive cards and Preventive Nutrition. Primary Care: Sher Jules MD [address] [facility] [address] Electronic Instrument Trades Worker: Phi Leo M.D. [facility] Acute pain 10/22/2013 01/01/2014 Overview: [...] RV nl ECG: SB at 56 Cards: [facility] Cath: LM 80%, LAD 30% prox, [...] recommend add when normalize -DC: , from [place], [place], no skilled needs. Request f/u Dr. Heredia in [place] and outpt CTS LAUNDRY ROUTEMAN Non-ST elevation myocardial infarction (NSTEMI) 10/17/2013 07/23/2014 [...] of this encounter (statuses as of 02/07/2024) [facility] History of Past illness Narrative* Problem [...] 10/23/2013 Overview: 63 y/o M, lives in [place], [place]. No skilled needs. DC home, requested f/u outpt CTS LAUNDRY ROUTEMAN within one week, Dr. Phi Heredia for new cards and Preventive cards and Preventive Nutrition. Primary Care: Sher Jules MD [address] [facility] [id number] Electronic Instrument Trades Worker: Phi Leo M.D. [place] [facility] Acute pain 10/22/2013 01/01/2014 Overview: [...] Note: N/A Pacemaker Check: N/A Consults: Interventional Cardiology([facility]) DM: Yes, HgbA1c:6.5 on 10/18/13 Cardiac Surgical prep: PENDING SIGNATURE: Elida Campuzano CNP CHECKED BY: RANDI DATE of SERVICE: 10/19/2013 TIME of SERVICE: 9:44 AM SUMMARY 10/17/2013 07/23/2014 Overview: Admission: NSTEMI Echo: 56%, Stage 1 DD, RV nl ECG: SB at 56 Cards: [facility] Cath: LM 80%, LAD 30% prox, [...] recommend add when normalize -DC: , from [place], [place], no skilled needs. Request f/u Dr. Heredia in [place] and outpt CTS LAUNDRY ROUTEMAN Non-ST elevation myocardial infarction (NSTEMI) 10/17/2013 07/23/2014 [...] of this encounter (statuses as of 02/11/2024) [facility]10[facility]13[facility] History of Present illness Narrative* Sher Jules MD - 08/09/2023 11:45 AM EDT This note was created using Shopogoliq[employer]. 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 Miscellaneous Medical Supply (COMPRESSION STOCKINGS) [facility] [place]PRESSION STOCKINGS KNEE HI [...] exercise reviewed. 2. Coronary artery disease involving [place] george coronary artery of [place] ge[place] heart without angina pectoris- ICD9: 414.01, ICD10: [...] UR Sher Jules MD documented in this encounterMer[facility]09-29-[facility]23 History of Present illness Narrative* Gomez [...] Objective: Patient presents to clinic ambulating in [facility] Vasc: DP and PT pulses are [...] diabetes mellitus with neurological manifestations ([facility]) (I73.9) PAD (peripheral artery disease) ([facility]) (L85.9) Hyperkeratosis Plan: Patient was seen and [...] Care Cheryle Merritt LPN documented in this encounterMercy Health [facility]09-29-2023 Instructions* Patient Instructions* Gomez Schwab - [...] (or decreased sensation in your feet) a s3b multi sensor operator should always cut your toenails. Be Careful [...] Go to your health care provider or s3b multi sensor operator to treat these conditions. documented in this encounterMercy Health [facility]07-10-2023 History of Present illness Narrative* Bib Patterson MD - 05/06/2023 3:35 PM EDT Images from the original note were not included. Bib Patterson MD Interventional Cardiology [facility] [address], [place] [address] [phone] Chief Complaint Patient presents with: Follow Up [...] PAST MEDICAL HISTORY Diagnosis Date Atherosclerosis of [place]. george arteries of the extremities with intermittent claudication [...] tablet 3 Miscellaneous Medical Supply (COMPRESSION STOCKINGS) [facility] [place] COMPRESSION STOCKINGS KNEE HI [...] ECG COMPLETE 2. Coronary artery disease involving st. george coronary artery of [place]. george heart without angina pectoris- ICD9: 414.01, ICD10: [...] to correct any errors. documented in this encounterMercy Health [facility]06-12-2023 History of Present illness Narrative* Gomez [...] diabetes mellitus with neurological manifestations ([facility]) (I73.9) PAD (peripheral artery disease) ([facility]) Plan: Patient was seen and evaluated. Nails [...] concerns at this time. documented in this encounterMer[facility]06-05-2023 Instructions* Patient Instructions* Trevor Robison MD [...] women, Target triglycerides <150 documented in this encounterMercy Health [facility]06-05-2023 History of Present illness Narrative* Trevor [...] tablet 3 Miscellaneous Medical Supply (COMPRESSION STOCKINGS) [facility] [place] COMPRESSION STOCKINGS KNEE HI [...] Discussed with Patient: n/a Trevor Robison MD [facility] Neurology documented in this encounterMercy Health [facility]06-01-2023 Miscellaneous Notes* Telephone Encounter - Palak [...] you. Palak Rosales LPN documented in this encounterMercy Health [facility]05-24-2023 History of Present illness Narrative* Thompson Monzon MD - 03/20/2023 2:39 PM EDT Images from the original note were not included. Heart , Vascular and Thoracic [place] DEPARTMENT OF VASCULAR SURGERY VASCULAR SURGERY SERVICE [...] patches (vein to each profunda, Bovine to RETAIL AGENT to SFA origins. Extensive profundaplasty on left. November 2009 Hx L SFA atherectomy complicated by thrombus requiring thrombolysis and stent of popliteal. September 07, 2010 RLE PYROTECHNIC MIXER to 3mm, Atheterctomy and PYROTECHNIC MIXER to 6mm. 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 [...] hyperlipidemia PAD (peripheral artery disease) ([facility]) 08/05/2009 Personal history of other malignant neoplasm [...] CATHJ EA 2ND+ ORD ABDL [facility] 11-17-09 LLE UNSPECIFIED ORAL SURGERY PROCEDURE, [...] tablet 3 Miscellaneous Medical Supply (COMPRESSION STOCKINGS) [facility] [place] COMPRESSION STOCKINGS KNEE HI [...] Follow up 6 months documented in this encounterMercy Health [facility] Hospital04-20-2023 Miscellaneous Notes* [facility] - Arlene [...] 14, 2023 1:33 PM documented in this encounterMercy Health Def[facility] Hospital04-20-2023 Nurse Note* Noemi Blackwood RN - [...] 2023 TIME: 12:52 PM documented in this encounterMercy Health [facility] Hospital04-12-2023 Instructions* Patient Instructions* Sher Jules MD - 02/06/2023 10:46 AM EDT FASTING LABS TODAY. SEE MEDICATION LIST FOR CHANGES. documented in this encounterMercy Health [facility] Hospital04-12-2023 History of Present illness Narrative* Sher Jules MD - 02/06/2023 10:22 AM EDT This note was created using [employer]. Subjective Marie Hutson is a 73 year old male. His diabetes mellitus had been elevating and we messaged in November to double metformin. His glucoses were not much better. His resistant hypertension had been controlled. However, quinapril had been out of stock and he hasbeen out for a few days. The local [facility] did not have this either. His composing room machinist also prescribed carvedilol and he needed this [...] twice daily. Miscellaneous Medical Supply (COMPRESSION STOCKINGS) [facility] [place] COMPRESSION STOCKINGS KNEE HI [...] Stable. Sher Jules MD documented in this encounterMercy Health [facility]04-10-2023 Miscellaneous Notes* Telephone Encounter - Jayson [...] calling: self Call patient at: on cell [phone] (home) [phone] (cell) Was an appointment scheduled: No Closing statement: Symptom Call: Thank you for calling [facility], your call is very important. A nurse will call in approximately 2-4 hours during business hours. If this is an emergency, please contact 911. Soledad Granados documented in this encounterMercy Health [facility]iance Hospital04-10-2023 Miscellaneous Notes* Telephone Encounter - Marta Bradley LPN - 02/04/2023 9:52 AM EDT Patient returned call and went over notes about rx with patient and he will check with his mail away pharmacy. documented in this encounterMercy Health [facility]iance Hospital04-06-2023 Miscellaneous Notes* Telephone Encounter - Palak Rosales LPN - 01/31/2023 8:59 AM EDT Marie we did receive your refill request for Quinapril 40mg, however a new prescription was done 10/24/2022 for 180 tablets, 3 refills sent to [facility] mail-order pharmacy. Please check with your pharmacy. Palak Rosales LPN documented in this encounterMercy Health [facility] Hospital03-22-2023 History of Present illness Narrative* Nargis Yin DO - 01/16/2023 5:00 PM EDT This office note has been dictated. Nargis Yin DO documented in this encounterMercy Health [facility] Hospital03-22-2023 Miscellaneous Notes* Telephone Encounter - Palak Rosales LPN - 01/16/2023 4:46 PM EDT Marie, a new prescription was done for Quinapril 40mg on 10/24/2022, x180 tablets, 3 refills, sent to [facility]. Please check with your mail- order [...] you. Palak Rosales LPN documented in this encounterMercy Health [facility] Hospital03-21-2023 Instructions* Patient Instructions* Nargis Yin DO - 01/15/2023 9:40 AM EDT Please send Dr. Yin a [employer] message after your CT scan for your circulation or call Dr. Yin at . We will review the scans and set you up with one of my partners for possible procedure/interventionto help your blood flow Continue walking and exercise as tolerated documented in this [facility]03-08-2023 Miscellaneous Notes* Telephone Encounter - Michelle Valverde [...] accordingly. Michelle Valverde LPN documented in this [facility]02-17-2023 Miscellaneous Notes* Telephone Encounter - Sher Jules [...] seven days of my reply. See the [employer] message reply for my assessment and plan. I spent a total of 10 minutes reviewing the patient's prior medical records and current request formedical advice, prescribing medications or ordering tests (if applicable), replying to the patient,and documenting the encounter. documented in this encounterMercy Health [facility]02-15-2023 Miscellaneous Notes* Telephone Encounter - Shelbie [...] patient. Shelbie Galeanahl Pss documented in this encounterMercy Health [facility] Hospital12-27-2022 Miscellaneous Notes* Telephone Encounter - Palak [...] you. Palak Rosales LPN documented in this encounterMercy Health [facility] Hospital12-14-2022 History of Present illness Narrative* Veronica [...] Phone number not valid / voicemail full [employer] message sent Did you use a PCP [...] 10, 2022 2:08 PM documented in this encounterMercy Health [facility] Hospital12-07-2022 History of Present illness Narrative* Jules [...] and blood pressure. Patient was at the [place] emergency room on May 30 for vision disturbance in his left eye and was diagnosedwith CRAO. Patient has not seen a neurologist since hospital discharge and the security sergeant did not make any definitive recommendations regarding anticoagulation. Patient denies any chest pain shortness of breath palpitations lightheadedness syncope orthopnea PND or edema. 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 BPH without obstruction/lower urinary tract symptoms 12/29/2007 Coronary artery disease Dermatophytosis of nail 12/29/2007 Diabetic peripheral neuropathy (HCC) 05/17/2014 DVT of leg (deep venous thrombosis) ([facility]) 11/16/2013 post-op CABG, rx with Xarelto Hypertrophy of prostate without urinary obstruction and other lower urinary tract symptoms (LUTS) 12/29/2007 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/29/2007 Non-ST elevation myocardial infarction (NSTEMI) 10/17/2013 Nonspecific abnormal results of liver function study 04/29/2008 Obesity, unspecified 12/29/2007 Other and unspecified hyperlipidemia PAD (peripheral artery disease) ([facility]) 08/05/2009 Personal history of other malignant neoplasm of skin 11/05/2010 skin cancer Postoperative anemia 10/25/2013 Transfused on 10/25 1 U PRBC. H&H 9.2/26.3. DC on diuretic taper for dilutional component and MVI with iron and repeat as outpt Primary osteoarthritis of left knee 02/21/2018 [facility]. Type II or unspecified [...] CATHJ EA 2ND+ ORD ABDL PEL/LXTR [facility] 11-17-09 LLE UNSPECIFIED ORAL SURGERY PROCEDURE, BY [...] twice daily. Miscellaneous Medical Supply (COMPRESSION STOCKINGS) [facility] [place] COMPRESSION STOCKINGS KNEE HI [...] his follow-ups in the future at the [facility]. I have informed him that 2 of my esteemed colleagues see patients there and I will establish him with one of them. Jules Dukes MD documented in this encounterMercy Health [facility]12-05-2022 History of Present illness Narrative* Trevor Robison MD - 10/01/2022 9:47 AM EST NEW PATIENT EVALUATION Subjective HPI Marie Hutson is a 72 year old left-handed male who presents for evaluation of left BRAO. Dr. Dukes is the referring physician. Dr. Sher Jules MD is the PCP. He had a left BRAO 05/2022. He was driving and had to loin puller because the eye was so blurry. [...] tablet 3 Miscellaneous Medical Supply (COMPRESSION STOCKINGS) [facility] [place] COMPRESSION STOCKINGS KNEE HI [...] PAST MEDICAL HISTORY Diagnosis Date Atherosclerosis of st. george arteries of the extremities with intermittent claudication [...] months then probably PRN. Trevor Robison MD [facility] Neurology documented in this encounterMercy Health [facility]11-28-2022 Instructions* Patient Instructions* Kathie Garcia, LOCKER PLANT ATTENDANT.MEDICAL COLLECTIONS - 09/24/2022 2:58 PM EST FACT SHEET FOR PATIENTS, PARENTS, AND CAREGIVERS EMERGENCY USE AUTHORIZATION (EUA) OF PAXLOVID FOR CORONAVIRUS DISEASE 2019 (COVID-19) You are being given this Fact Sheet because your healthcare provider believes it is necessary to provide you with PAXLOVID for the treatment of twfw-dr-nilhddrs coronavirus disease (COVID-19) caused by the SARS-CoV-2 [...] virus. COVID-19 illnesses have ranged from very jkda-gs-ahectf, including illness resulting in . While information [...] is an investigational medicine used to treat ugrl-ij-dhensgcf COVID-19 in adults and children [12 years [...] of using PAXLOVID to treat people with ydyv-am-aatkqpcy COVID-19. The FDA has authorized the emergency use of PAXLOVID for the treatment of tnxt-vq-pbpycnjh COVID-19in adults and children [12 years of [...] the medicines you take, including prescription and mzkk-qga-ztfcmvd medicines, vitamins, and herbal supplements. Some medicines [...] oral midazolam Apalutamide Carbamazepine, phenobarbital, phenytoin Rifampin [place] s Wort (hypericum perforatum) Taking PAXLOVID with [...] (remdesivir) is FDA-approved for the treatment of aeql-ws-pbtjnefj COVID-19 in certain adults and children. Talk with your doctor to see if Veklury is appropriate for you. Like PAXLOVID, FDA may also allow for the emergency use of other medicines to treat people with COVID-19. Go to https://www.fda.gov/fihplqmbs-zjotlztissmu-bfqxvlbukuf/gdo-rgyzh-mzdkqymqgm-and- policy-framework/schtkskxe-lrg-tymygkhahpjqn for information on the emergency use of [...] if I am or ? There is instructional technology coach treating women or mothers with PAXLOVID. For [...] go away. Report side effects to FDA Intexystch at www.fda.gov/medwatch or call 1-612-CUU9434 or you can reportside effects to [employer]. at the contact information provided below. Website Fax number Telephone number [employer] How should I store PAXLOVID? Store PAXLOVID [...] (EUA). The EUA is supported by a [place] of Health and Human Service (HHS) declaration that circumstances exist to justify the emergency use of drugs and biological productsduring the COVID-19 pandemic. PAXLOVID for the treatment of yoim-gn-lbbicusa COVID-19 in adults and children [12 years [...] telephone number provided below. Website Telephone number wwwCinetraffic (5-245-F11-GKDI) You can also go to www.[employer] or call for more information. Pfizer Distributed by [employer] Division [place] [address] LAB-1494-2.1 Revised: 12 January 2022 documented in this encounterMercy Health [facility]11-28-2022 History of Present illness Narrative* Kathie Garcia APRN.CNS - 09/24/2022 2:40 PM EST Telemedicine Evaluation for COVID-19 Infection MyChart video visit did not work. Phone was used for evaluation of this patient. Location of patient: [place] PCP: Sher Jules MD SUBJECTIVE Marie Hutson [...] discussed Nirmatrelvir/Ritonavir (Paxlovid) Eligibility and Patient Discussion [facility] Formulary Restriction Criteria: Adult outpatients 18 [...] 20 min in visit documented in this encounterMercy Health Defiance Hospital11-15-2022 History of Present illness Narrative* Gomez [...] (I73.9) PAD (peripheral artery disease) ([facility]) Plan: Patient was seen and evaluated. Nails [...] Care Cheryle Merritt LPN documented in this encounterMercy Health [facility] Hospital11-15-2022 Instructions* Patient Instructions* Gomez Schwab - [...] (or decreased sensation in your feet) a s3b multi sensor operator should always cut your toenails. Be Careful [...] Go to your health care provider or s3b multi sensor operator to treat these conditions. documented in this encounterMercy Health [facility] Hospital11-09-2022 History of Present illness Narrative* Jules [...] and blood pressure. Patient was at the [place] emergency room on May 30 for vision disturbance in his left eye and was diagnosedwith CRAO. Patient has not seen a neurologist since hospital discharge and the security sergeant did not make any definitive recommendations regarding anticoagulation. He denies chest pain, shortness of breath, orthopnea, cough, edema, palpitations, PND, lightheadedness or syncope. PAST MEDICAL HISTORY Diagnosis Date Atherosclerosis of st. george arteries of the extremities with intermittent claudication [...] twice daily. Miscellaneous Medical Supply (COMPRESSION STOCKINGS) [facility] [place] COMPRESSION STOCKINGS KNEE HI [...] him to our neurologist here at the [place] office for further evaluation and management recommendations for this condition. Jules Dukes MD documented in this encounterMercy Health [facility] Hospital09-21-2022 History of Present illness Narrative* Barb Leon, LOCKER PLANT ATTENDANT.ELEMENTARY ART TEACHER - 07/18/2022 9:25 AM EDT CC Patient [...] PAST MEDICAL HISTORY Diagnosis Date Atherosclerosis of st. george arteries of the extremities with intermittent claudication [...] [facility]COM[facility] STOCKINGS[facility] [place] COMPRESSION STOCKINGS KNEE HI [...] plan Barb Leon APRN.CNP documented in this encounterMercy Health Def[facility] Hospital09-12-2022 Miscellaneous Notes* Telephone Encounter - Anabel [...] advise. Anabel Nguyen Pss documented in this encounterMercy Health Defiance Hospital09-01-2022 History of Present illness Narrative* Milady [...] PCP. Milady Hernández LPN documented in this encounterMercy Health Defiance Hospital08-18-2022 Miscellaneous Notes* Telephone Encounter - Lara [...] notify patient. Lara Ribera documented in this encounterMercy Health Defiance Hospital08-15-2022 Instructions* Patient Instructions* Sher Jules MD - 06/11/2022 7:45 PM EDT DISCONTINUE DOXAZOSIN 8 MG AT BEDTIME. START CLONIDINE TABLET TWICE A DAY. WATCH FOR LOW BLOOD PRESSURE <90 SYSTOLIC OR LOW HEART RATE <40. documented in this encounterMercy Health Defiance Hospital08-15-2022 History of Present illness Narrative* Sher Jules MD - 06/11/2022 7:26 PM EDT This note was created using [employer]. Subjective Marie Hutson is a 72 year [...] twice daily. Miscellaneous Medical Supply (COMPRESSION STOCKINGS) [facility] [place] COMPRESSION STOCKINGS KNEE HI [...] CARDIOLOGY Sher Jules MD documented in this encounterMercy Health Defiance Hospital08-09-2022 Miscellaneous Notes* Telephone Encounter - Lorraine Beebe LPN - 06/05/2022 4:09 PM EDT Message left for pt to return call to arrange hospital follow with pcp. documented in this encounterMercy Health [facility] Hospital08-02-2022 Miscellaneous Notes* Telephone Encounter - Manda Monroy LPN - 05/29/2022 11:[address] Merritt's office notified with information listed below. Manda Monroy LPN * Telephone Encounter - Sher Jules MD - 05/29/2022 11:19 AM EDT It sounds acute. Send to ER. * Telephone Encounter - Manda Monroy LPN - 05/29/2022 10:[address] Christian Merritt, language instructor called in and he has pt at his office now. Pt being seen for blurredvision and has had a stroke in eye. Dr. Gonzales states concerned for risk of other strokes. He is holding pt there till he hears back if you want to see him today or should he send pt to ER. Please advise [phone]. Manda Monroy LPN documented in this encounterMercy Health [facility]07-06-2022 History of Present illness Narrative* Gomez [...] edema or varicosities noted. Non-Invasive Vascular Laboratory [facility] Lower Extremity Arterial Physiology Study Bilateral/Complete [...] in the home?: No documented in this encounterMercy Health Defiance Hospital07-06-2022 Instructions* Patient Instructions* Gomez Schwab - [...] (or decreased sensation in your feet) a s3b multi sensor operator should always cut your toenails. Be Careful [...] Go to your health care provider or s3b multi sensor operator to treat these conditions. documented in this encounterMercy Health [facility] Hospital05-31-2022 History of Present illness Narrative* Nargis Yin DO - 03/27/2022 8:31 AM EDT This office note has been dictated. Nargis Yin DO documented in this encounterMercy Health [facility] Hospital05-04-2022 Miscellaneous Notes* Telephone Encounter - Lorraine Beebe LPN - 02/28/2022 3:35 PM EDT Last appt with LAUNDRY ROUTEMAN 02/20/22 Next appt with pcp 07/18/22. * [...] patient. Madeleine Mukherjee Pss documented in this encounterMercy Health [facility]iance Hospital10-26-2018 History of Past illness Narrative* Problem [...] 10/23/20132013 Overview: 63 y/o M, lives in [place], [place]. No skilled needs. DC home, requested f/u outpt CTS LAUNDRY ROUTEMAN within one week, Dr. Phi Heredia for new cards and Preventive cards and Preventive Nutrition. Primary Care: Sher Jules MD [address] [facility] [id number] Electronic Instrument Trades Worker: Phi Leo M.D. [place] [facility] Acute pain 10/22/2013 01/01/2014 Overview: [...] recommend add when normalize -DC: , from [place], no skilled needs. Request f/u Dr. Heredia in [place] and outpt CTS LAUNDRY ROUTEMAN Non-ST elevation myocardial infarction (NSTEMI) 10/17/2013 07/23/2014 [...] of this encounter (statuses as of 02/28/2022) [facility] History of Past illness Narrative* Problem [...] 10/23/20132013 Overview: 63 y/o M, lives in [place], [place]. No skilled needs. DC home, requested f/u outpt CTS LAUNDRY ROUTEMAN within one week, Dr. Phi Heredia for new cards and Preventive cards and Preventive Nutrition. Primary Care: Sher Jules MD [address] [facility] [id number] Electronic Instrument Trades Worker: Phi Leo M.D. [facility] Acute pain 10/22/2013 01/01/2014 Overview: [...] RV nl ECG: SB at 56 Cards: [facility] Cath: LM 80%, LAD 30% prox, [...] recommend add when normalize -DC: , from [place], no skilled needs. Request f/u Dr. Heredia in [place] and outpt CTS LAUNDRY ROUTEMAN Non-ST elevation myocardial infarction (NSTEMI) 10/17/2013 07/23/2014 [...] of this encounter (statuses as of 03/27/2022) [facility]10-26-2018 History of Past illness Narrative* Problem [...] 10/23/20132013 Overview: 63 y/o M, lives in [place], [place]. No skilled needs. DC home, requested f/u outpt [facility]TS LAUNDRY ROUTEMAN within one week, Dr. Phi Heredia for new cards and Preventive cards and Preventive Nutrition. Primary Care: Sher Jules MD [address] [facility] [address] Electronic Instrument Trades Worker: Phi Leo M.D. [place] [facility] Acute pain 10/22/2013 01/01/2014 Overview: [...] RV nl ECG: SB at 56 Cards: [facility] Cath: LM 80%, LAD 30% prox, [...] recommend add when normalize -DC: , from [place], [place], no skilled needs. Request f/u Dr. Heredia in [place] and outpt CTS LAUNDRY ROUTEMAN Non-ST elevation myocardial infarction (NSTEMI) 10/17/2013 07/23/2014 [...] of this encounter (statuses as of 05/02/2022) [facility]10[facility] History of Past illness Narrative* Problem [...] 10/23/20132013 Overview: 63 y/o M, lives in [place], [place]. No skilled needs. DC home, requested f/u outpt CTS LAUNDRY ROUTEMAN within one week, Dr. Phi Heredia for new cards and Preventive cards and Preventive Nutrition. Primary Care: Sher Jules MD [address] [facility] [address] Electronic Instrument Trades Worker: Phi Leo M.D. [place] [facility] Acute pain 10/22/2013 01/01/2014 Overview: [...] RV nl ECG: SB at 56 [facility]: [facility]: LM 80%, LAD 30% prox, [...] recommend add when normalize -DC: , from [place], no skilled needs. Request f/u Dr. Heredia in [place] and outpt CTS LAUNDRY ROUTEMAN Non-ST elevation myocardial infarction (NSTEMI) 10/17/2013 07/23/2014 [...] of this encounter (statuses as of 05/29/2022) [facility] History of Past illness Narrative* Problem [...] 10/23/20132013 Overview: 63 y/o M, lives in [place], [place]. No skilled needs. DC home, requested f/u outpt CTS LAUNDRY ROUTEMAN within one week, Dr. Phi Heredia for new cards and Preventive cards and Preventive Nutrition. Primary Care: Shre Jules MD [address] [facility] [address] Electronic Instrument Trades Worker: Phi Leo M.D. [facility] Cardiology Acute pain 10/22/2013 01/01/2014 [...] RV nl ECG: SB at 56 Cards: [facility] Cath: LM 80%, LAD 30% prox, [...] recommend add when normalize -DC: , from [place], [place], no skilled needs. Request f/u Dr. Heredia in [place] and outpt CTS LAUNDRY ROUTEMAN Non-ST elevation myocardial infarction (NSTEMI) 10/17/2013 07/23/2014 [...] of this encounter (statuses as of 06/06/2022) [facility] History of Past illness Narrative* Problem [...] 10/23/20132013 Overview: 63 y/o M, lives in [place], [place]. No skilled needs. DC home, requested f/u outpt CTS LAUNDRY ROUTEMAN within one week, Dr. Phi Heredia for new cards and Preventive cards and Preventive Nutrition. Primary Care: Sher Jules MD [address] [facility] [address] Electronic Instrument Tr[employer] Worker: Phi Leo M.D. [place] [facility] Acute pain 10/22/2013 01/01/2014 Overview: [...] recommend add when normalize -DC: , from [place], no skilled needs. Request f/u Dr. Heredia in [place] and outpt CTS LAUNDRY ROUTEMAN Non-ST elevation myocardial infarction (NSTEMI) 10/17/2013 07/23/2014 [...] of this encounter (statuses as of 06/14/2022) [facility] History of Past illness Narrative* Problem [...] 10/23/20132013 Overview: 63 y/o M, lives in [place]. No skilled needs. DC home, requested f/u outpt CTS LAUNDRY ROUTEMAN within one week, Dr. Phi Heredia for new cards and Preventive cards and Preventive Nutrition. Primary Care: Sher Jules MD [address] [facility] [address] Electronic [employer] Tr[employer] Worker: Phi Leo M.D. [place] [facility] Acute pain 10/22/2013 01/01/2014 Overview: [...] RV nl ECG: SB at 56 Cards: [facility] Cath: LM 80%, LAD 30% prox, [...] recommend add when normalize -DC: , from [place], no skilled needs. Request f/u Dr. Heredia in [place] and outpt CTS LAUNDRY ROUTEMAN Non-ST elevation myocardial infarction (NSTEMI) 10/17/2013 07/23/2014 [...] of this encounter (statuses as of 06/15/2022) [facility] History of Past illness Narrative* Problem [...] 10/23/20132013 Overview: 63 y/o M, lives in [place]. No skilled needs. DC home, requested f/u outpt CTS LAUNDRY ROUTEMAN within one week, Dr. Phi Heredia for new cards and Preventive cards and Preventive Nutrition. Primary Care: Sher Jules MD [address] [facility] [address] Electronic Instrument Tr[employer] Worker: Phi Leo M.D. [place] [facility] Acute pain 10/22/2013 01/01/2014 Overview: [...] RV nl ECG: SB at 56 Cards: [facility] Cath: LM 80%, LAD 30% prox, [...] recommend add when normalize -DC: , from [place], no skilled needs. Request f/u Dr. Heredia in [place] and outpt CTS LAUNDRY ROUTEMAN Non-ST elevation myocardial infarction (NSTEMI) 10/17/2013 07/23/2014 [...] of this encounter (statuses as of 06/28/2022) [facility] History of Past illness Narrative* Problem [...] 10/23/20132013 Overview: 63 y/o M, lives in [place]. No skilled needs. DC home, requested f/u outpt CTS LAUNDRY ROUTEMAN within one week, Dr. Phi Heredia for new cards and Preventive cards and Preventive Nutrition. Primary Care: Sher Jules MD [address] [facility] [address] Electronic [employer] Tr[employer] Worker: Phi Leo M.D. [place] [facility] Acute pain 10/22/2013 01/01/2014 Overview: [...] RV nl ECG: SB at 56 Cards: [facility] Cath: LM 80%, LAD 30% prox, [...] recommend add when normalize -DC: , from [place], no skilled needs. Request f/u Dr. Heredia in [place] and outpt CTS LAUNDRY ROUTEMAN Non-ST elevation myocardial infarction (NSTEMI) 10/17/2013 07/23/2014 [...] of this encounter (statuses as of 07/11/2022) [facility] History of Past illness Narrative* Problem [...] 10/23/20132013 Overview: 63 y/o M, lives in [place]. No skilled needs. DC home, requested f/u outpt CTS LAUNDRY ROUTEMAN within one week, Dr. Phi Heredia for new cards and Preventive cards and Preventive Nutrition. Primary Care: Sher Jules MD [address] [facility] [address] Electronic [employer] Tr[employer] Worker: Phi Leo M.D. [place] [facility] Acute pain 10/22/2013 01/01/2014 Overview: [...] RV nl ECG: SB at 56 Cards: [facility] Cath: LM 80%, LAD 30% prox, [...] recommend add when normalize -DC: , from [place], no skilled needs. Request f/u Dr. Heredia in [place] and outpt CTS LAUNDRY ROUTEMAN Non-ST elevation myocardial infarction (NSTEMI) 10/17/2013 07/23/2014 [...] of this encounter (statuses as of 07/18/2022) [facility] History of Past illness Narrative* Problem [...] 10/23/20132013 Overview: 63 y/o M, lives in [place]. No skilled needs. DC home, requested f/u outpt CTS LAUNDRY ROUTEMAN within one week, Dr. Phi Heredia for new cards and Preventive cards and Preventive Nutrition. Primary Care: Sher Jules MD [address] [facility] [address] Electronic [employer] Tr[employer] Worker: Phi eLo M.D. [place] [facility] Acute pain 10/22/2013 01/01/2014 Overview: [...] RV nl ECG: SB at 56 Cards: [facility] Cath: LM 80%, LAD 30% prox, [...] recommend add when normalize -DC: , from [place], no skilled needs. Request f/u Dr. Heredia in [place] and outpt CTS LAUNDRY ROUTEMAN Non-ST elevation myocardial infarction (NSTEMI) 10/17/2013 07/23/2014 [...] of this encounter (statuses as of 09/05/2022) [facility] History of Past illness Narrative* Problem [...] 10/23/20132013 Overview: 63 y/o M, lives in [place]. No skilled needs. DC home, requested f/u outpt CTS LAUNDRY ROUTEMAN within one week, Dr. Phi Heredia for new cards and Preventive cards and Preventive Nutrition. Primary Care: Sher Jules MD [address] [facility] [address] Electronic [employer] Tr[employer] Worker: Phi Leo M.D. [place] [facility] Acute pain 10/22/2013 01/01/2014 Overview: [...] recommend add when normalize -DC: , from [place], no skilled needs. Request f/u Dr. Heredia in [place] and outpt CTS LAUNDRY ROUTEMAN Non-ST elevation myocardial infarction (NSTEMI) 10/17/2013 07/23/2014 [...] of this encounter (statuses as of 09/11/2022) [facility] History of Past illness Narrative* Problem [...] 10/23/20132013 Overview: 63 y/o M, lives in [place]. No skilled needs. DC home, requested f/u outpt CTS LAUNDRY ROUTEMAN within one week, Dr. Phi Heredia for new cards and Preventive cards and Preventive Nutrition. Primary Care: Sher Jules MD [address] [facility] [address] Electronic Instrument Tr[employer] Worker: Phi Leo M.D. [facility] Cardiology Acute pain 10/22/2013 01/01/2014 [...] Note: N/A Pacemaker Check: N/A Consults: Interventional Cardiology([facility]) DM: Yes, HgbA1c:6.5 on 10/18/13 Cardiac Surgical prep: PENDING SIGNATURE: Elida Campuzano CNP CHECKED BY: RANDI DATE of SERVICE: 10/19/2013 TIME of SERVICE: 9:44 AM SUMMARY 10/17/2013 07/23/2014 Overview: Admission: NSTEMI Echo: 56%, Stage 1 DD, RV nl ECG: SB at 56 Cards: [facility] Cath: LM 80%, LAD 30% prox, [...] recommend add when normalize -DC: , from [place], no skilled needs. Request f/u Dr. Heredia in [place] and outpt CTS LAUNDRY ROUTEMAN Non-ST elevation myocardial infarction (NSTEMI) 10/17/2013 07/23/2014 [...] of this encounter (statuses as of 09/24/2022) [facility] History of Past illness Narrative* Problem [...] 10/23/20132013 Overview: 63 y/o M, lives in [place]. No skilled needs. DC home, requested f/u outpt CTS LAUNDRY ROUTEMAN within one week, Dr. Phi Heredia for new cards and Preventive cards and Preventive Nutrition. Primary Care: Sher Jules MD [address] [facility] [address] Electronic Instrument Tr[employer] Worker: Phi Leo M.D. [place] [facility] Acute pain 10/22/2013 01/01/2014 Overview: [...] RV nl ECG: SB at 56 Cards: [facility] Cath: LM 80%, LAD 30% prox, [...] recommend add when normalize -DC: , from [place], no skilled needs. Request f/u Dr. Heredia in [place] and outpt CTS LAUNDRY ROUTEMAN Non-ST elevation myocardial infarction (NSTEMI) 10/17/2013 07/23/2014 [...] of this encounter (statuses as of 10/01/2022) [facility] History of Past illness Narrative* Problem [...] 10/23/20132013 Overview: 63 y/o M, lives in [place]. No skilled needs. DC home, requested f/u outpt CTS LAUNDRY ROUTEMAN within one week, Dr. Phi Heredia for new cards and Preventive cards and Preventive Nutrition. Primary Care: Sher Jules MD [address] [facility] [address] Electronic Instrument Tr[employer] Worker: Phi Leo M.D. [place] [facility] Acute pain 10/22/2013 01/01/2014 Overview: [...] recommend add when normalize -DC: , from [place], no skilled needs. Request f/u Dr. Heredia in [place] and outpt CTS LAUNDRY ROUTEMAN Non-ST elevation myocardial infarction (NSTEMI) 10/17/2013 07/23/2014 [...] of this encounter (statuses as of 10/03/2022) [facility] History of Past illness Narrative* Problem [...] 10/23/20132013 Overview: 63 y/o M, lives in [place]. No skilled needs. DC home, requested f/u outpt CTS LAUNDRY ROUTEMAN within one week, Dr. Phi Heredia for new cards and Preventive cards and Preventive Nutrition. Primary Care: Sher Jules MD [address] [facility] [address] Electronic Instrument Trades Worker: Phi Leo M.D. [place] [facility] Acute pain 10/22/2013 01/01/2014 Overview: [...] RV nl ECG: SB at 56 Cards: [facility] Cath: LM 80%, LAD 30% prox, [...] recommend add when normalize -DC: , from [place], no skilled needs. Request f/u Dr. Heredia in [place] and outpt CTS LAUNDRY ROUTEMAN Non-ST elevation myocardial infarction (NSTEMI) 10/17/2013 07/23/2014 [...] of this encounter (statuses as of 10/15/2022) [facility] History of Past illness Narrative* Problem [...] 10/23/20132013 Overview: 63 y/o M, lives in [place]. No skilled needs. DC home, requested f/u outpt CTS LAUNDRY ROUTEMAN within one week, Dr. Phi Heredia for new cards and Preventive cards and Preventive Nutrition. Primary Care: Sher Jules MD [address] [facility] [address] Electronic Instrument Trades Worker: Phi Leo M.D. [place] [facility] Acute pain 10/22/2013 01/01/2014 Overview: [...] RV nl ECG: SB at 56 Cards: [facility] Cath: LM 80%, LAD 30% prox, [...] recommend add when normalize -DC: , from [place], no skilled needs. Request f/u Dr. Heredia in [place] and outpt CTS LAUNDRY ROUTEMAN Non-ST elevation myocardial infarction (NSTEMI) 10/17/2013 07/23/2014 [...] of this encounter (statuses as of 10/30/2022) [facility] History of Past illness Narrative* Problem [...] 10/23/20132013 Overview: 63 y/o M, lives in [place]. No skilled needs. DC home, requested f/u outpt CTS LAUNDRY ROUTEMAN within one week, Dr. Phi Heredia for new cards and Preventive cards and Preventive Nutrition. Primary Care: Sher Jules MD [address] [facility] [address] Electronic Instrument Trades Worker: Phi Leo M.D. [place] [facility] Acute pain 10/22/2013 01/01/2014 Overview: [...] RV nl ECG: SB at 56 Cards: [facility] Cath: LM 80%, LAD 30% prox, [...] recommend add when normalize -DC: , from [place], no skilled needs. Request f/u Dr. Heredia in [place] and outpt CTS LAUNDRY ROUTEMAN Non-ST elevation myocardial infarction (NSTEMI) 10/17/2013 07/23/2014 [...] of this encounter (statuses as of 10/30/2022) [facility] History of Past illness Narrative* Problem [...] 10/23/20132013 Overview: 63 y/o M, lives in [place]. No skilled needs. DC home, requested f/u outpt CTS LAUNDRY ROUTEMAN within one week, Dr. Phi Heredia for new cards and Preventive cards and Preventive Nutrition. Primary Care: Sher Jules MD [address] [facility] [address] Electronic Instrument Trades Worker: Phi Leo M.D. [facility] Cardiology Acute pain 10/22/2013 01/01/2014 [...] RV nl ECG: SB at 56 Cards: [facility] Cath: LM 80%, LAD 30% prox, [...] recommend add when normalize -DC: , from [place], no skilled needs. Request f/u Dr. Heredia in [place] and outpt CTS LAUNDRY ROUTEMAN Non-ST elevation myocardial infarction (NSTEMI) 10/17/2013 07/23/2014 [...] of this encounter (statuses as of 12/13/2022) [facility] History of Past illness Narrative* Problem [...] 10/23/20132013 Overview: 63 y/o M, lives in [place]. No skilled needs. DC home, requested f/u outpt CTS LAUNDRY ROUTEMAN within one week, Dr. Phi Heredia for new cards and Preventive cards and Preventive Nutrition. Primary Care: Sher Jules MD [address] [facility] [address] Electronic Instrument Trades Worker: Phi Leo M.D. [place] [facility] Acute pain 10/22/2013 01/01/2014 Overview: [...] RV nl ECG: SB at 56 Cards: [facility] Cath: LM 80%, LAD 30% prox, [...] recommend add when normalize -DC: , from [place], no skilled needs. Request f/u Dr. Heredia in [place] and outpt CTS LAUNDRY ROUTEMAN Non-ST elevation myocardial infarction (NSTEMI) 10/17/2013 07/23/2014 [...] of this encounter (statuses as of 12/14/2022) [facility] History of Past illness Narrative* Problem [...] 10/23/20132013 Overview: 63 y/o M, lives in [place]. No skilled needs. DC home, requested f/u outpt CTS LAUNDRY ROUTEMAN within one week, Dr. Phi Heredia for new cards and Preventive cards and Preventive Nutrition. Primary Care: Sher Jules MD [address] [facility] [address] Electronic Instrument Trades Worker: Phi Leo M.D. [place] [facility] Acute pain 10/22/2013 01/01/2014 Overview: [...] RV nl ECG: SB at 56 Cards: [facility] Cath: LM 80%, LAD 30% prox, [...] recommend add when normalize -DC: , from [place], no skilled needs. Request f/u Dr. Heredia in [place] and outpt CTS LAUNDRY ROUTEMAN Non-ST elevation myocardial infarction (NSTEMI) 10/17/2013 07/23/2014 [...] of this encounter (statuses as of 01/02/2023) [facility] History of Past illness Narrative* Problem [...] 10/23/20132013 Overview: 63 y/o M, lives in [place]. No skilled needs. DC home, requested f/u outpt CTS LAUNDRY ROUTEMAN within one week, Dr. Phi Heredia for new cards and Preventive cards and Preventive Nutrition. Primary Care: Sher Jules MD [address] [facility] [address] Electronic Instrument Tr[employer] Worker: Phi Leo M.D. [place] [facility] Acute pain 10/22/2013 01/01/2014 Overview: [...] RV nl ECG: SB at 56 Cards: [facility] Cath: LM 80%, LAD 30% prox, [...] recommend add when normalize -DC: , from [place], no skilled needs. Request f/u Dr. Heredia in [place] and outpt CTS LAUNDRY ROUTEMAN Non-ST elevation myocardial infarction (NSTEMI) 10/17/2013 07/23/2014 [...] of this encounter (statuses as of 01/16/2023) [facility] History of Past illness Narrative* Problem [...] 10/23/20132013 Overview: 63 y/o M, lives in [place]. No skilled needs. DC home, requested f/u outpt CTS LAUNDRY ROUTEMAN within one week, Dr. Phi Heredia for new cards and Preventive cards and Preventive Nutrition. Primary Care: Sher Jules MD [address] [facility] [address] Electronic Instrument Trades Worker: Phi Leo M.D. [place] [facility] Acute pain 10/22/2013 01/01/2014 Overview: [...] RV nl ECG: SB at 56 Cards: [facility] Cath: LM 80%, LAD 30% prox, [...] recommend add when normalize -DC: , from [place], no skilled needs. Request f/u Dr. Heredia in [place] and outpt CTS LAUNDRY ROUTEMAN Non-ST elevation myocardial infarction (NSTEMI) 10/17/2013 07/23/2014 [...] of this encounter (statuses as of 01/17/2023) [facility] of Past illness Narrative* Problem [...] 10/23/20132013 Overview: 63 y/o M, lives in [place]. No skilled needs. DC home, requested f/u outpt CTS LAUNDRY ROUTEMAN within one week, Dr. Phi Heredia for new cards and Preventive cards and Preventive Nutrition. Primary Care: Sher Jules MD [address] [facility] [address] Electronic Instrument Trades Worker: Phi Leo M.D. [facility] Cardiology Acute pain 10/22/2013 01/01/2014 [...] RV nl ECG: SB at 56 Cards: [facility] Cath: LM 80%, LAD 30% prox, [...] recommend add when normalize -DC: , from [place], no skilled needs. Request f/u Dr. Heredia in [place] and outpt CTS LAUNDRY ROUTEMAN Non-ST elevation myocardial infarction (NSTEMI) 10/17/2013 07/23/2014 [...] of this encounter (statuses as of 01/31/2023) [facility] of Past illness Narrative* Problem [...] 10/23/20132013 Overview: 63 y/o M, lives in [place]. No skilled needs. DC home, requested f/u outpt CTS LAUNDRY ROUTEMAN within one week, Dr. Phi Heredia for new cards and Preventive cards and Preventive Nutrition. Primary Care: Sher Jules MD [address] [facility] [address] Electronic Instrument Trades Worker: Phi Leo M.D. [place] [facility] Acute pain 10/22/2013 01/01/2014 Overview: [...] RV nl ECG: SB at 56 Cards: [facility] Cath: LM 80%, LAD 30% prox, [...] recommend add when normalize -DC: , from [place], [place] skilled needs. Request f/u Dr. Heredia in [place] and outpt CTS LAUNDRY ROUTEMAN Non-ST elevation myocardial infarction (NSTEMI) 10/17/2013 07/23/2014 [...] of this encounter (statuses as of 02/04/2023) [facility] of Past illness Narrative* Problem [...] 10/23/20132013 Overview: 63 y/o M, lives in [place]. No skilled needs. DC home, requested f/u outpt CTS LAUNDRY ROUTEMAN within one week, Dr. Phi Heredia for new cards and Preventive cards and Preventive Nutrition. Primary Care: Sher Jules MD [address] [facility] [address] Electronic Instrument Trades Worker: Phi Leo M.D. [place] [facility] Acute pain 10/22/2013 01/01/2014 Overview: [...] recommend add when normalize -DC: , from [place], [place] skilled needs. Request f/u Dr. Heredia in [place] and outpt CTS LAUNDRY ROUTEMAN Non-ST elevation myocardial infarction (NSTEMI) 10/17/2013 07/23/2014 [...] of this encounter (statuses as of 02/04/2023) [facility] of Past illness Narrative* Problem [...] 10/23/20132013 Overview: 63 y/o M, lives in [place] No skilled needs. DC home, requested f/u outpt CTS LAUNDRY ROUTEMAN within one week, Dr. Phi Heredia for new cards and Preventive cards and Preventive Nutrition. Primary Care: Sher Jules MD [address] [facility] [address] Electronic Instrument Trades Worker: Phi [facility] M.D. [facility] 10/22/2013 01/01/2014 Overview: [...] RV nl ECG: SB at 56 Cards: [facility] Cath: LM 80%, LAD 30% prox, [...] recommend add when normalize -DC: , from [place], no skilled needs. Request f/u Dr. Heredia in [place] and outpt CTS LAUNDRY ROUTEMAN Non-ST elevation myocardial infarction (NSTEMI) 10/17/2013 07/23/2014 [...] of this encounter (statuses as of 02/07/2023) [facility] of Past illness Narrative* Problem [...] 10/23/20132013 Overview: 63 y/o M, lives in [place]. No skilled needs. DC home, requested f/u outpt CTS LAUNDRY ROUTEMAN within one week, Dr. Phi Heredia for new cards and Preventive cards and Preventive Nutrition. Primary Care: Sher Jules MD [address] [facility] [address] Electronic Instrument Trades Worker: Phi Leo M.D. [place] [facility] Acute pain 10/22/2013 01/01/2014 Overview: [...] RV nl ECG: SB at 56 Cards: [facility] Cath: LM 80%, LAD 30% prox, [...] recommend add when normalize -DC: , from [place], [place] skilled needs. Request f/u Dr. Heredia in [place] and outpt CTS LAUNDRY ROUTEMAN Non-ST elevation myocardial infarction (NSTEMI) 10/17/2013 07/23/2014 [...] of this encounter (statuses as of 02/15/2023) [facility] of Past illness Narrative* Problem [...] 10/23/20132013 Overview: 63 y/o M, lives in [place]. No skilled needs. DC home, requested f/u outpt CTS LAUNDRY ROUTEMAN within one week, Dr. Phi Heredia for new cards and Preventive cards and Preventive Nutrition. Primary Care: Sher Jules MD [address] [facility] [id number] Electronic [employer] Trades Worker: Phi Leo M.D. [place] [facility] Acute pain 10/22/2013 01/01/2014 Overview: [...] RV nl ECG: SB at 56 Cards: [facility] [facility]: LM 80%, LAD 30% prox, RCA [...] recommend add when normalize -DC: , from [place], [place], no skilled needs. Request f/u Dr. Heredia in [place] and outpt CTS LAUNDRY ROUTEMAN Non-ST elevation myocardial infarction (NSTEMI) 10/17/2013 07/23/2014 [...] of this encounter (statuses as of 03/29/2023) [facility]10[facility] History of Past illness Narrative* Problem [...] 10/23/20132013 Overview: 63 y/o M, lives in [place], [place]. No skilled needs. DC home, requested f/u outpt CTS LAUNDRY ROUTEMAN within one week, Dr. Phi Heredia for new cards and Preventive cards and Preventive Nutrition. Primary Care: Sher Jules MD [address] [facility] [address] Electronic Instrument Tr[employer] Worker: Phi Leo M.D. Celine [facility] Cardiology Acute pain 10/22/2013 01/01/2014 Overview: DC [...] Note: N/A Pacemaker Check: N/A Consults: Interventional Cardiology([facility]) DM: Yes, HgbA1c:6.5 on 10/18/13 Cardiac Surgical prep: PENDING SIGNATURE: Elida Campuzano CNP CHECKED BY: RANDI DATE of SERVICE: 10/19/2013 TIME of SERVICE: 9:44 AM SUMMARY 10/17/2013 07/23/2014 Overview: Admission: NSTEMI Echo: 56%, Stage 1 DD, RV nl ECG: SB at 56 Cards: [facility] Cath: LM 80%, LAD 30% prox, [...] recommend add when normalize -DC: , from [place], no skilled needs. Request f/u Dr. Heredia in [place] and outpt CTS LAUNDRY ROUTEMAN Non-ST elevation myocardial infarction (NSTEMI) 10/17/2013 07/23/2014 [...] of this encounter (statuses as of 04/01/2023) [facility] History of Past illness Narrative* Problem [...] 10/23/20132013 Overview: 63 y/o M, lives in [place]. No skilled needs. DC home, requested f/u outpt CTS LAUNDRY ROUTEMAN within one week, Dr. Phi Heredia for new cards and Preventive cards and Preventive Nutrition. Primary Care: Sher Jules MD [address] [facility] [address] Electronic [employer] Tr[employer] Worker: Phi Leo M.D. [place] [facility] Cardiology Acute pain 10/22/2013 01/01/2014 Overview: [...] RV nl ECG: SB at 56 Cards: [facility] Cath: LM 80%, LAD 30% prox, [...] recommend add when normalize -DC: , from [place], no skilled needs. Request f/u Dr. Heredia in [place] and outpt CTS LAUNDRY ROUTEMAN Non-ST elevation myocardial infarction (NSTEMI) 10/17/2013 07/23/2014 [...] of this encounter (statuses as of 04/03/2023) [facility] History of Past illness Narrative* Problem [...] 10/23/20132013 Overview: 63 y/o M, lives in [place]. No skilled needs. DC home, requested f/u outpt CTS LAUNDRY ROUTEMAN within one week, Dr. Phi Heredia for new cards and Preventive cards and Preventive Nutrition. Primary Care: Sher Jules MD [address] [facility] [address] Electronic [employer] Tr[employer] Worker: Phi Leo M.D. [facility] Cardiology Acute pain 10/22/2013 01/01/2014 [...] recommend add when normalize -DC: , from [place], no skilled needs. Request f/u Dr. Heredia in [place] and outpt CTS LAUNDRY ROUTEMAN Non-ST elevation myocardial infarction (NSTEMI) 10/17/2013 07/23/2014 [...] of this encounter (statuses as of 04/09/2023) [facility] History of Past illness Narrative* Problem [...] 10/23/2013 Overview: 63 y/o M, lives in [place]. No skilled needs. DC home, requested f/u outpt CTS LAUNDRY ROUTEMAN within one week, Dr. Phi Heredia for new cards and Preventive cards and Preventive Nutrition. Primary Care: Sehr Jules MD [address] [facility] [id number] Electronic [employer] Tr[employer] Worker: Phi Leo M.D. [facility] Cardiology Acute pain 10/22/2013 01/01/2014 [...] RV nl ECG: SB at 56 Cards: [facility] Cath: LM 80%, LAD 30% prox, [...] recommend add when normalize -DC: , from [place], no skilled needs. Request f/u Dr. Heredia in [place] and outpt CTS LAUNDRY ROUTEMAN Non-ST elevation myocardial infarction (NSTEMI) 10/17/2013 07/23/2014 [...] of this encounter (statuses as of 05/07/2023) [facility] History of Past illness Narrative* Problem [...] 10/23/2013 Overview: 63 y/o M, lives in [place]. No skilled needs. DC home, requested f/u outpt CTS LAUNDRY ROUTEMAN within one week, Dr. Phi Heredia for new cards and Preventive cards and Preventive Nutrition. Primary Care: Sher Jules MD [address] [facility] [address] Electronic [employer] Tr[employer] Worker: Pih Leo M.D. [place] [facility] Cardiology Acute pain 10/22/2013 01/01/2014 Overview: [...] RV nl ECG: SB at 56 Cards: [facility] Cath: LM 80%, LAD 30% prox, [...] recommend add when normalize -DC: , from [place], [place], no skilled needs. Request f/u Dr. Heredia in [place] and outpt CTS LAUNDRY ROUTEMAN Non-ST elevation myocardial infarction (NSTEMI) 10/17/2013 07/23/2014 [...] of this encounter (statuses as of 07/27/2023) [facility] History of Past illness Narrative* Problem [...] 10/23/2013 Overview: 63 y/o M, lives in [place]. No skilled needs. DC home, requested f/u outpt CTS LAUNDRY ROUTEMAN within one week, Dr. Phi Heredia for new cards and Preventive cards and Preventive Nutrition. Primary Care: Sher Jules MD [address] [facility] [address] Electronic [employer] Tr[employer] Worker: Phi Leo M.D. [place] [facility] Cardiology Acute pain 10/22/2013 01/01/2014 Overview: [...] RV nl ECG: SB at 56 Cards: [facility] Cath: LM 80%, LAD 30% prox, [...] recommend add when normalize -DC: , from [place], no skilled needs. Request f/u Dr. Heredia in [place] and outpt CTS LAUNDRY ROUTEMAN Non-ST elevation myocardial infarction (NSTEMI) 10/17/2013 07/23/2014 [...] of this encounter (statuses as of 08/09/2023) [facility] History of Past illness Narrative* Problem [...] 10/23/2013 Overview: 63 y/o M, lives in [place]. No skilled needs. DC home, requested f/u outpt CTS LAUNDRY ROUTEMAN within one week, Dr. Phi Heredia for new cards and Preventive cards and Preventive Nutrition. Primary Care: Sher Jules MD [address] [facility] [address] Electronic [employer] Tr[employer] Worker: Phi Leo M.D. [place] [facility] Cardiology Acute pain 10/22/2013 01/01/2014 Overview: [...] RV nl ECG: SB at 56 Cards: [facility] Cath: LM 80%, LAD 30% prox, [...] recommend add when normalize -DC: , from [place], no skilled needs. Request f/u Dr. Heredia in [place] and outpt CTS LAUNDRY ROUTEMAN Non-ST elevation myocardial infarction (NSTEMI) 10/17/2013 07/23/2014 [...] of this encounter (statuses as of 09/10/2023) [facility] History of Past illness Narrative* Problem [...] 10/23/2013 Overview: 63 y/o M, lives in [place]. No skilled needs. DC home, requested f/u outpt CTS LAUNDRY ROUTEMAN within one week, Dr. Phi Heredia for new cards and Preventive cards and Preventive Nutrition. Primary Care: Sher Jules MD [address] [facility] [address] Electronic Instrument Tr[employer] Worker: Phi Leo M.D. [place] [facility] Cardiology Acute pain 10/22/2013 01/01/2014 Overview: [...] RV nl ECG: SB at 56 Cards: [facility] Cath: LM 80%, LAD 30% prox, [...] recommend add when normalize -DC: , from [place], no skilled needs. Request f/u Dr. Heredia in [place] and outpt CTS LAUNDRY ROUTEMAN Non-ST elevation myocardial infarction (NSTEMI) 10/17/2013 07/23/2014 [...] of this encounter (statuses as of 10/01/2023) [facility] History of Past illness Narrative* Problem [...] 10/23/2013 Overview: 63 y/o M, lives in [place]. No skilled needs. DC home, requested f/u outpt CTS LAUNDRY ROUTEMAN within one week, Dr. Phi Heredia for new cards and Preventive cards and Preventive Nutrition. Primary Care: Sher Jules MD [address] [facility] [address] Electronic [employer] Tr[employer] Worker: Phi Leo M.D. [place] [facility] Cardiology Acute pain 10/22/2013 01/01/2014 Overview: [...] RV nl ECG: SB at 56 Cards: [facility] Cath: LM 80%, LAD 30% prox, [...] recommend add when normalize -DC: , from [place], no skilled needs. Request f/u Dr. Heredia in [place] and outpt CTS LAUNDRY ROUTEMAN Non-ST elevation myocardial infarction (NSTEMI) 10/17/2013 07/23/2014 [...] of this encounter (statuses as of 11/03/2023) [facility] History of Past illness Narrative* Problem [...] 10/23/2013 Overview: 63 y/o M, lives in [place]. No skilled needs. DC home, requested f/u outpt CTS LAUNDRY ROUTEMAN within one week, Dr. Phi Heredia for new cards and Preventive cards and Preventive Nutrition. Primary Care: Sher Jules MD [address] [facility] [address] Electronic Instrument Tr[employer] Worker: Phi Leo M.D. [place] [facility] Cardiology Acute pain 10/22/2013 01/01/2014 Overview: [...] RV nl ECG: SB at 56 Cards: [facility] Cath: LM 80%, LAD 30% prox, RCA [...] recommend add when normalize -DC: , from [place], no skilled needs. Request f/u Dr. Hreedia in [place] and outpt CTS LAUNDRY ROUTEMAN Non-ST elevation myocardial infarction (NSTEMI) 10/17/2013 07/23/2014 [...] of this encounter (statuses as of 12/20/2023) [facility] History of Past illness Narrative* Problem [...] 10/23/2013 Overview: 63 y/o M, lives in [place]. No skilled needs. DC home, requested f/u outpt CTS LAUNDRY ROUTEMAN within one week, Dr. Phi Heredia for new cards and Preventive cards and Preventive Nutrition. Primary Care: Sher Jules MD [address] [facility] [id number] Electronic Instrument Trades Worker: Phi Leo M.D. [place] [facility] Cardiology Acute pain 10/22/2013 01/01/2014 Overview: [...] RV nl ECG: SB at 56 Cards: [facility] Cath: LM 80%, LAD 30% prox, [...] recommend add when normalize -DC: , from [place], no skilled needs. Request f/u Dr. Heredia in [place] and outpt CTS LAUNDRY ROUTEMAN Non-ST elevation myocardial infarction (NSTEMI) 10/17/2013 07/23/2014 [...] of this encounter (statuses as of 01/06/2024) [facility] History of Past illness Narrative* Problem [...] 10/23/2013 Overview: 63 y/o M, lives in [place]. No skilled needs. DC home, requested f/u outpt CTS LAUNDRY ROUTEMAN within one week, Dr. Phi Heredia for new cards and Preventive cards and Preventive Nutrition. Primary Care: Sher Jules MD [address] [facility] [address] Electronic Instrument Trades Worker: Phi Leo M.D. [place] [facility] Acute pain 10/22/2013 01/01/2014 Overview: [...] RV nl ECG: SB at 56 Cards: [facility] Cath: LM 80%, LAD 30% prox, [...] recommend add when normalize -DC: , from [place], no skilled needs. Request f/u Dr. Heredia in [place] and outpt CTS LAUNDRY ROUTEMAN Non-ST elevation myocardial infarction (NSTEMI) 10/17/2013 07/23/2014 [...] of this encounter (statuses as of 01/28/2024) [facility] History of Past illness Narrative* Problem [...] 10/23/2013 Overview: 63 y/o M, lives in [place]. No skilled needs. DC home, requested f/u outpt CTS LAUNDRY ROUTEMAN within one week, Dr. Phi Heredia for new cards and Preventive cards and Preventive Nutrition. Primary Care: Sher Jules MD [address] [facility] [address] Electronic Instrument Trades Worker: Phi Leo M.D. [place] [facility] Cardiology Acute pain 10/22/2013 01/01/2014 Overview: [...] RV nl ECG: SB at 56 Cards: [facility] Cath: LM 80%, LAD 30% prox, [...] recommend add when normalize -DC: , from [place], no skilled needs. Request f/u Dr. Heredia in [place] and outpt CTS LAUNDRY ROUTEMAN Non-ST elevation myocardial infarction (NSTEMI) 10/17/2013 07/23/2014 [...] of this encounter (statuses as of 01/28/2024) [facility] History of Past illness Narrative* Problem [...] 10/23/2013 Overview: 63 y/o M, lives in [place]. No skilled needs. DC home, requested f/u outpt CTS LAUNDRY ROUTEMAN within one week, Dr. Phi Heredia for new cards and Preventive cards and Preventive Nutrition. Primary Care: Sher Jules MD [address] [facility] [address] Electronic Instrument Trades Worker: Phi Leo M.D. [place] [facility] Cardiology Acute pain 10/22/2013 01/01/2014 Overview: [...] RV nl ECG: SB at 56 Cards: [facility] Cath: LM 80%, LAD 30% prox, [...] recommend add when normalize -DC: , from [place], no skilled needs. Request f/u Dr. Heredia in [place] and outpt CTS LAUNDRY ROUTEMAN Non-ST elevation myocardial infarction (NSTEMI) 10/17/2013 07/23/2014 [...] of this encounter (statuses as of 2024) [facility] History of Past illness Narrative* Problem [...] 10/23/2013 Overview: 63 y/o M, lives in [place]. No skilled needs. DC home, requested f/u outpt CTS LAUNDRY ROUTEMAN within one week, Dr. Phi Heredia for new cards and Preventive cards and Preventive Nutrition. Primary Care: Sher Jules MD [address] [facility] [address] Electronic Instrument Trades Worker: Phi Leo M.D. [place] [facility] Acute pain 10/22/2013 01/01/2014 Overview: [...] RV nl ECG: SB at 56 Cards: [facility] Cath: LM 80%, LAD 30% prox, [...] recommend add when normalize -DC: , from [place], no skilled needs. Request f/u Dr. Heredia in [place] and outpt CTS LAUNDRY ROUTEMAN Non-ST elevation myocardial infarction (NSTEMI) 10/17/2013 07/23/2014 [...] of this encounter (statuses as of 01/28/2024) [facility] History of Past illness Narrative* Problem [...] 10/23/2013 Overview: 63 y/o M, lives in [place]. [place] skilled needs. DC home, requested f/u outpt CTS LAUNDRY ROUTEMAN within one week, Dr. Phi Heredia for new cards and Preventive cards and Preventive Nutrition. Primary Care: Sher Jules MD [address] [facility] [address] Electronic Instrument Trades Worker: Phi Leo M.D. [facility] Cardiology Acute pain 10/22/2013 01/01/2014 [...] RV nl ECG: SB at 56 Cards: [facility] Cath: LM 80%, LAD 30% prox, [...] recommend add when normalize -DC: , from [place], no skilled needs. Request f/u Dr. Heredia in [place] and outpt CTS LAUNDRY ROUTEMAN Non-ST elevation myocardial infarction (NSTEMI) 10/17/2013 07/23/2014 [...] of this encounter (statuses as of 01/31/2024) [facility] History of Past illness Narrative* Problem [...] 10/23/2013 Overview: 63 y/o M, lives in [place]. [place] skilled needs. DC home, requested f/u outpt CTS LAUNDRY ROUTEMAN within one week, Dr. Phi Heredia for new cards and Preventive cards and Preventive Nutrition. Primary Care: Sher Jules MD [address] [facility] [address] Electronic Instrument Trades Worker: Phi Leo M.D. [place] [facility] Cardiology Acute pain 10/22/2013 01/01/2014 Overview: [...] recommend add when normalize -DC: , from [place], no skilled needs. Request f/u Dr. Heredia in [place] and outpt CTS LAUNDRY ROUTEMAN Non-ST elevation myocardial infarction (NSTEMI) 10/17/2013 07/23/2014 [...] of this encounter (statuses as of 02/06/2024) [facility] Rohan Wallace [facility] Note Date/Time April 30, 2025 12:39 am [facility] Medical Records Department [address] [place] [address] Emergency Department Summary 04/30/25 MR#: [id number] Acct: [id number] Name: MARIE HUTSON Rep #:[id number] : 1950 75 From: oRhan Wallace MD PCP: Dr. Sher Jules MD [...] symptoms: No Recent Illness/Hospitalization: No [facility] <Dr. Max Brooks MD - Last Filed: 04/30/25 00:23> [facility] Medical History Atherosclerotic heart disease of [place] coronary artery without angina pectoris Branch retinal [...] Skin sutures and Wound explored Number of Sutures/[place]: 9 Suture Information: Ethilon, Simple and 4-0 [...] results andthe possibility of a delayed bleed. [facility] <Dr. Max Brooks MD - Last Filed: 04/30/25 00:23> [facility] Radiography Diagnostic Testing: Clinical Impression(s) from Imaging Studies Brain CT 04/29/25 23:08 IMPRESSION: No acute intracranial finding Reading Location: [facility] <Dr. Rohan Wallace MD - Last Filed: 04/30/25 00:30> [facility] Narrative Medical decision making narrative: Since patient is on antithrombotic is amnestic and over the age of 75 per the [place] CT head rule and [place] rule he will require imaging of his head to rule out intracranial bleed i.e. subdural hematoma, epidural hematoma, parenchymal contusion or subarachnoid hemorrhage. Patient's laceration will require repair. The repair was performed by Dr. Brooks. Radiography Diagnostic Testing: Clinical Impression(s) from Imaging Studies Brain CT 04/29/25 23:08 IMPRESSION: No acute intracranial finding Reading Location: [place] [address] CT of the head was reviewed by [...] Injury (Adult), ED Laceration Scalp Stitches or [place] Prescriptions: No Action clopidogrel 75 mg tablet [...] the emergency room for reevaluation Print Language: Palestinian Disposition Disposition: Home, Self Care What to do if you have Problems For any increased pain, shortness of breath, bleeding, nausea or vomiting, chestpain, or any unexpected problems, contact your Primary Care Provider. Call [facility] ([phone]) or report to the closest Emergency Room. Call 911 if necessary. 04/30/2529 <Electronically signed by Rohan Wallace MD> Cosigner Signature (if applicable): 04/30/2538 <Electronically signed by Max Brooks MD> CC: Dr. Sher Jules MD ~ Signed [facility] Work Phone: Evaluation note* Diagnosis Peripheral arterial disease (HCC)- Primary Peripheral vascular disease, unspecified [facility] Diagnosis Onychomycosis- Primary Dermatophytosis of [...] Hyperkeratosis Acquired keratoderma [facility] Diagnosis Onset Date Resolution Status Branch retinal artery occlusion acute History of atherosclerotic heart disease acute History of diabetes mellitus acute History of essential hypertension [facility] Work Phone: Evaluation note* Diagnosis Onset Date Resolution Status Branch retinal artery occlusion acute CVA (cerebral vascular accident) acute History of atherosclerotic heart disease acute History of diabetes mellitus acute History of essential hypertension [facility] Work Phone: Evaluation note* Diagnosis Hyperlipidemia [...] aortocoronary bypass status [facility] Essential hypertension- Primary Unspecified essential hypertension [facility] Diagnosis Essential hypertension Unspecified essential hypertension [facility] Essential hypertension- Primary Unspecified essential hypertension Need for influenza vaccination Need for prophylactic vaccination and inoculation against influenza Well controlled type 2 diabetes mellitus with neurological manifestations (HCC) Type II or unspecified type diabetes mellitus with neurological manifestations, not stated as uncontrolled [facility] Diagnosis Coronary artery disease involving [place] coronary artery of 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 Central artery occlusion of retina [facility] Diagnosis Onychomycosis- Primary Dermatophytosis of [...] vascular disease, unspecified [facility] Diagnosis COVID-19 virus infection- Primary [facility] Diagnosis Central retinal artery occlusion of left eye- Primary Central artery occlusion of retina [facility] Diagnosis Primary hypertension- Primary Unspecified essential hypertension Coronary artery disease involving [place] coronary artery of [place] heart without angina pectoris Hx of CABG Postsurgical aortocoronary bypass status PAD (peripheral artery disease) (HCC) Peripheral vascular disease, unspecified [facility] Diagnosis Essential hypertension Unspecified essential hypertension [facility] Diagnosis Hyperlipidemia with target LDL less than 70 Other and unspecified hyperlipidemia Essential hypertension Unspecified essential hypertension [facility] Diagnosis Essential hypertension- Primary Unspecified essential hypertension [facility] Diagnosis Well controlled type 2 diabetes mellitus with neurological manifestations (HCC)- Primary Type II or unspecified type diabetes mellitus with neurological manifestations, not stated as uncontrolled [facility] Diagnosis Essential hypertension Unspecified essential hypertension [facility] Diagnosis Peripheral vascular disease (HCC)- Primary Peripheral vascular disease, unspecified Screening for nephropathy [facility] Diagnosis Essential hypertension Unspecified essential hypertension [facility] Diagnosis Essential hypertension Unspecified essential hypertension [facility] Diagnosis Well controlled type 2 diabetes mellitus with neurological manifestations (HCC)- Primary Type II or unspecified type diabetes mellitus with neurological manifestations, not stated as uncontrolled Essential hypertension Unspecified essential hypertension Hyperlipidemia with target LDL less than 70 Other and unspecified hyperlipidemia PAD (peripheral artery disease) (HCC) Peripheral vascular disease, unspecified [facility] Diagnosis Peripheral vascular disease (HCC) Peripheral vascular disease, unspecified [facility] Diagnosis 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 arteries of the extremities with intermittent claudication Peripheral arterial disease (HCC) Peripheral vascular disease, unspecified [facility] Diagnosis Onychomycosis- Primary Dermatophytosis of nail [...] Hyperkeratosis Acquired keratoderma [facility] Diagnosis Screening for ischemic heart disease- Primary Coronary artery disease involving [place] coronary artery of [place] heart without angina pectoris Hx of CABG Postsurgical aortocoronary bypass status PVD (peripheral vascular disease) ([facility]) Peripheral vascular disease, unspecified [facility] Diagnosis Onychomycosis- Primary Dermatophytosis of [...] Hyperkeratosis Acquired keratoderma [facility] Diagnosis Obesity, Class II, BMI 35-39.9- Primary Obesity, unspecified Coronary artery disease involving [facility] coronary artery of [place] heart without angina pectoris PAD (peripheral artery disease) (HCC) Peripheral vascular disease, unspecified Essential hypertension Unspecified essential hypertension Hyperlipidemia with target LDL less than 70 Other and unspecified hyperlipidemia Well controlled type 2 diabetes mellitus with neurological manifestations (HCC) Type II or unspecified type diabetes mellitus with neurological manifestations, not stated as uncontrolled [facility] Diagnosis Onychomycosis- Primary Dermatophytosis of [...] infection Ingrowing nail [facility] Diagnosis Essential hypertension Unspecified essential hypertension [facility] Diagnosis Essential hypertension Unspecified essential hypertension Well controlled type 2 diabetes mellitus with neurological manifestations (HCC) Type II or unspecified type diabetes mellitus with neurological manifestations, not stated as uncontrolled [facility] Diagnosis Essential hypertension Unspecified essential hypertension [facility] Diagnosis Pain in both wrists- Primary Pain in joint, forearm [facility]* Diagnosis Onset Date Resolution Status CAD (coronary artery disease) acute Chest pain acute Dyslipidemia acute History of coronary artery bypass graft x 3 acute NSTEMI (non-ST elevated myocardial infarction) acute Hypertension [facility] Work Phone: Evaluation note* Diagnosis Onset Date Resolution Status CAD (coronary artery disease) acute Chest pain acute Diabetes acute Dyslipidemia acute History of coronary artery bypass graft x 3 acute NSTEMI (non-ST elevated myocardial infarction) acute Hypertension [facility] Work Phone: Evaluation note* Diagnosis Non-STEMI (non-ST elevated myocardial infarction) ([facility])- Primary Acute myocardial infarction, subendocardial infarction, episode [...] 30-34.9 Obesity, unspecified [facility] Diagnosis 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)- Primary Essential hypertension Unspecified essential hypertension PAD (peripheral artery disease) (HCC) Peripheral vascular disease, unspecified [facility] noteNo assessment information availableWTriHealth [facility] Work Phone: Evaluation note* Diagnosis Well controlled type 2 diabetes mellitus with neurological manifestations (HCC) Type II or unspecified type diabetes mellitus with neurological manifestations, not stated as uncontrolled [facility] Screening for colon cancer- Primary Special screening for malignant neoplasms, colon [facility] Diagnosis Medicare annual wellness visit, subsequent- Primary Routine general medical examination at a health care facility Special screening for malignant neoplasms, colon Well controlled type 2 diabetes mellitus with neurological manifestations (HCC) Type II or unspecified type diabetes mellitus with neurological manifestations, not stated as uncontrolled PAD (peripheral artery disease) (HCC) Peripheral vascular disease, unspecified Coronary artery disease involving [facility] coronary artery of [place] heart without angina pectoris Hyperlipidemia with target LDL less than 70 Other and unspecified hyperlipidemia Benign neoplasm of colon, unspecified part of colon [facility] Diagnosis 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) [facility] Diagnosis Onychomycosis- Primary Dermatophytosis of nail Pain in toe of left foot Pain in limb Pain in toe of right foot Pain in limb PAD (peripheral artery disease) (HCC) Peripheral vascular disease, unspecified Diabetic polyneuropathy associated with type 2 diabetes mellitus (HCC) [facility] Diagnosis Essential hypertension- Primary Unspecified essential hypertension Hyperlipidemia with target LDL less than 70 Other and unspecified hyperlipidemia Hx of CABG Postsurgical aortocoronary bypass status Coronary artery disease involving [facility] coronary artery of [place] heart without angina pectoris [facility] Diagnosis Special screening for malignant neoplasms, colon History of colonic polyps Personal history of colonic polyps Coronary artery disease involving [facility] [place] coronary artery of [place] heart, unspecified whether angina present [facility] Diagnosis Peripheral arterial disease (HCC)- Primary Peripheral vascular disease, unspecified [facility] Diagnosis Well controlled type 2 [...] Clinic[facility] note* Diagnosis Coronary artery disease involving [facility] coronary artery of [place] heart without angina pectoris- Primary Stented coronary artery Postsurgical percutaneous transluminal coronary angioplasty status Essential hypertension Unspecified essential hypertension Hyperlipidemia with target LDL less than 70 Other and unspecified hyperlipidemia Well controlled type 2 diabetes mellitus with neurological manifestations (HCC) Type II or unspecified type diabetes mellitus with neurological manifestations, not stated as uncontrolled documented in this encounter [facility]* Diagnosis Hyponatremia- Primary Hyposmolality and/or hyponatremia Hyperkalemia Hyperpotassemia Anemia, unspecified type documented in this encounter [facility] note* Diagnosis Shortness of breath- Primary Coronary artery disease involving [facility] coronary artery of [place] heart without angina pectoris Stented coronary artery Postsurgical percutaneous transluminal coronary angioplasty status S/P CABG x 3 Postsurgical aortocoronary bypass status Family history of chronic ischemic heart disease Diabetes mellitus type 2 in nonobese (CMS/HCC) (HCC) Type II or unspecified type diabetes mellitus without mention of complication, not stated as uncontrolled Primary hypertension Unspecified essential hypertension Mixed hyperlipidemia Coronary artery disease involving [facility] coronary artery of [place] heart without angina pectoris- Primary documented in this encounter [facility] note* Diagnosis Coronary artery disease involving [facility] coronary artery of [place] heart without angina pectoris- Primary Primary hypertension Unspecified essential hypertension documented in this encounter [facility] note* Diagnosis Coronary artery disease involving [facility] coronary artery of [place] heart without angina pectoris- Primary Coronary artery disease involving [facility] coronary artery of [place] heart without angina pectoris Stented coronary artery Postsurgical percutaneous transluminal coronary angioplasty status Angina pectoris, unstable (CMS/HCC) (HCC) Intermediate coronary syndrome Angina pectoris, unstable (CMS/HCC) (HCC) Intermediate coronary syndrome Coronary artery disease involving [facility] coronary artery of [facility] heart without angina pectoris documented in this encounter [facility] note* Diagnosis Hyponatremia- Primary Hyposmolality and/or hyponatremia Anemia, unspecified type documented in this encounter [facility] note* Diagnosis Diabetic peripheral neuropathy [...] vascular disease, unspecified [facility]* Diagnosis Well controlled type 2 diabetes mellitus with neurological manifestations (HCC) Type II or unspecified type diabetes mellitus with neurological manifestations, not stated as uncontrolled documented in this encounter [facility] note* Diagnosis Onychomycosis- Primary Dermatophytosis of nail Pain in toe of left foot Pain in limb Pain in toe of right foot Pain in limb Diabetic polyneuropathy associated with type 2 diabetes mellitus (HCC) PAD (peripheral artery disease) Peripheral vascular disease, unspecified [facility]* Diagnosis Peripheral arterial disease- Primary Peripheral vascular disease, unspecified documented in this encounter [facility] note* Diagnosis Anemia, unspecified type- Primary History of colonic polyps Personal history of colonic polyps Colon cancer screening Special screening for malignant neoplasms, colon [facility]* Diagnosis Gastritis and duodenitis- Primary Unspecified gastritis and gastroduodenitis without mention of hemorrhage Gastroesophageal reflux disease with esophagitis without hemorrhage Adenomatous polyp of colon, unspecified part of colon documented in this encounter [facility] instructionsWTri[facility] Work Phone: Reason for referral (narrative)* Outpatient Procedure (Routine) - Pending Review Specialty Diagnoses / Procedures Referred By Contlarry t Referred To Contact [facility] Diagnoses Peripheral arterial disease (HCC) Procedures PVR LEG NOHEMY V[facility] NON-INVASIVE PHYSIOLOGIC STUDY EXTREMITY 3 Nargis Wiggins DO [address] [place] [address] [facility] [place] [address] [place] [address] Referral ID Status Reason Start Date Expiration Date Visits Requested Visits Authorized [id number] Pending Review Auto-Generat ed Referral 03/27/2022 03/27/2023 1 1 [facility] for referral (narrative)* Outpatient Procedure (Routine) - Closed Specialty Diagnoses / Procedures Referred By Contac t Referred To Contact [facility] [place] Diagnoses Coronary artery disease involving [facility] [place] coronary artery of [facility] heart without angina pectoris Procedures ECG COMPLETE ECG ROUTINE ECG W/LEAST 12 LDS W/I&R Jules Dukes MD [address] [place] [address] [facility] [place] [address] [place] [address] Referral ID Status Reason Start Date Expiration Date V isits Requested Visits Authorized [id number] Closed Auto-Generate d Referral 09/05/2022 09/05/2023 1 1 * Consult, Test, Treat (Routine) - Authorized Specialty Diagnoses / Procedures Referred By Contac t Referred To Contact Neurology Diagnoses Central retinal artery occlusion of left eye Procedures CONSULT TO NEUROLOGY OFFICE/OUTPATIENT COUNTS INCLUDE 234 BEDS AT [facility] MDM 60-74 MINUTES Jules Dukes MD [address] [place] [id number] Referral ID Status Reason Start Date Expiration Date Visits Requested Visits Authorized [id number] Authorized PCP Requested Referral 09/05/2022 09/05/2023 1 1 [facility] for referral (narrative)* Outpatient Procedure (Routine) - Closed Specialty Diagnoses / Procedures Referred By Contac t Referred To Contact [facility] [place] Diagnoses Screening for ischemic heart disease Procedures ECG COMPLETE ECG ROUTINE ECG W/LEAST 12 LDS W/I&R Bib Patterson MD [address] [place] [address] [facility] [place] [address] [place] [address] Referral ID Status Reason Start Date Expiration Date V isits Requested Visits Authorized [id number] Closed Auto-Generate d Referral 04/29/2023 04/28/2024 1 1 [facility] for referral (narrative)* Outpatient Procedure (Routine) - Authorized Specialty Diagnoses / Procedures Referred By Contac t Referred To Contact [facility] Diagnoses Coronary artery disease involving [facility] ge[facility] coronary artery of [facility] heart without angina pectoris Procedures ECG COMPLETE ECG ROUTINE ECG W/LEAST 12 LDS W/I&R Sher Jules MD [address] [place] [address] [facility] [place] [address] [place] [address] Referral ID Status Reason Start Date Expiration Date Visits Requested Visits Authorized [id number] Authorized Auto-Generat ed Referral 08/08/2024 1 1 [facility] for referral (narrative)* Diagnostic Procedure Only (Routine) - Closed Specialty Diagnoses / Procedures Referred By Contac t Referred To Contact XR IMAGING Diagnoses Pain in both wrists Procedures XR WRIST GENERAL 3V PA/LAT/OBL BILATERAL RADEX WRIST COMPLETE MINIMUM 3 VIEWS Barb Suggs, [employer] ATTENDANT.ELEMENTARY ART TEACHER [address] [place] [address] [place] [address] Referral ID Status Reason Start Date Expiration Date V isits Requested Visits Authorized [id number] Closed Auto-Generate d Referral 2024 02/25/2025 1 1 [facility] for referral (narrative)* Diagnostic Procedure Only (Routine) - Authorized Specialty Diagnoses / Procedures Referred By Contact Referred To Contact [facility] Diagnoses 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) Shortness of breath Procedures NM CARDIAC PERF STRESS/PHARM MYOCARDIAL SPECT MULTIPLE STUDIES Bib Patterson MD [address] [facility], [address] [place] [address] [facility] [address] [place] [address] Referral ID Status Reason Start Date Expiration Date Visits Requested Visits Authorized [id number] Authorized Auto-Generat ed Referral 03/11/2024 03/11/2025 1 1 [facility] for referral (narrative)* Diagnostic Procedure Only (Routine) - Closed Specialty Diagnoses / Procedures Referred By Contact Referred To Contact [facility] Diagnoses 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) Shortness of breath Procedures NM CARDIAC PERF STRESS/PHARM MYOCARDIAL SPECT MULTIPLE STUDIES Bib Patterson MD [address] [facility], [address] [place] [address] [facility] [address] [place], [place] [id number] Referral ID Status Reason Start Date Expiration Date V isits Requested Visits Authorized [id number] Closed Auto-Generate d Referral 03/11/2024 03/11/2025 1 1 [facility] for referral (narrative)* Outpatient Procedure (Routine) - Authorized Specialty Diagnoses / Procedures Referred By Contac t Referred To Contact [facility] Diagnoses Peripheral arterial disease (HCC) Procedures PVR LEG NOHEMY VAS LAB NON-INVASIVE PHYSIOLOGIC STUDY EXTREMITY 3 Nargis Wiggins DO [address] [place] [id number] [facility] [place] [id number] [place] [address] Referral ID Status Reason Start Date Expiration Date Visits Requested Visits Authorized [id number] Authorized Auto-Generat ed Referral 04/07/2024 04/07/2025 1 1 [facility] for referral (narrative)* Diagnostic Procedure Only (Routine) - Closed Specialty Diagnoses / Procedures Referred By Contac t Referred To Contact XR IMAGING Diagnoses Pain in both wrists Procedures XR WRIST GENERAL 3V PA/LAT/OBL BILATERAL RADEX WRIST COMPLETE MINIMUM 3 VIEWS Barb Suggs, [employer] ATTENDANT.ELEMENTARY ART TEACHER [address] [place] [address] Xr Imaging [facility] Referral ID Status Reason Start Date Expiration Date V isits Requested Visits Authorized [id number] Closed Auto-Generate d Referral 2024 02/25/2025 1 1 [facility] for referral (narrative)No reason for referral information availableWTriHealth [facility] Work Phone: Reason for visit Narrative* Diagnostic Procedure Only (Routine) - Closed Specialty Diagnoses / Procedures Referred By Contact Referred To Contact [facility]CULAR [facility] FUNCTIONAL [facility] Diagnoses 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) Shortness of breath Procedures NM CARDIAC PERF STRESS/PHARM MYOCARDIAL SPECT MULTIPLE STUDIES Bib Patterson MD [address] [facility], [address] [place] [address] [facility] [address] [place] [address] Referral ID Status Reason Start Date Expiration Date V isits Requested Visits Authorized [id number] Closed Auto-Generate d Referral 03/11/2024 03/11/2025 1 1 [facility] for visit Narrative* Diagnostic Procedure Only (Routine) - Closed Specialty Diagnoses / Procedures Referred By Contac t Referred To Contact XR IMAGING Diagnoses Pain in both wrists Procedures XR WRIST GENERAL 3V PA/LAT/OBL BILATERAL RADEX WRIST COMPLETE MINIMUM 3 VIEWS Barb Suggs, [employer] ATTENDANT.ELEMENTARY ART TEACHER [address] [place] [address] Xr Imaging [place] [address] Referral ID Status Reason Start Date Expiration Date V isits Requested Visits Authorized [id number] Closed Auto-Generate d Referral 2024 02/25/2025 1 1 [facility] for visit Narrative* Auth/Cert (Routine) Specialty Diagnoses / Procedures Referred By Contac t Referred To Contact Diagnoses Coronary artery disease involving [facility] ge[facility] coronary artery of [facility] heart without angina pectoris Coronary artery disease involving [facility] ge[facility] coronary artery of [facility] ge[place] heart without angina pectoris [I25.10] Procedures Left heart cath / coronary angiography w grafts Sergei Collins MD [address] [place] [address] Phone: tel: fax: [facility] [address] [place] [address] Phone: tel: Referral ID Status Reason Start Date Expiration Date Visits Re quested Visits Authorized [id number] [facility] N[facility] Outpatient Procedure (Routine) - Closed Specialty Diagnoses / Procedures Referred By Contac t Referred To Contact [facility] Diagnoses History of colonic polyps Anemia, unspecified type Colon cancer screening Procedures COLONOSCOPY SCREENING COLONOSCOPY FLX DX W/COLLJ SPEC WHEN PFRMD Elvie Monterroso, L[employer] PL[employer] ATTENDANT.ELEMENTARY ART TEACHER [address] [place] [address] Phone: tel: fax: [facility] [address] [place] [address] Referral ID Status Reason Start Date Expiration Date V isits Requested Visits Authorized [id number] Closed Auto-Generate d Referral 03/18/2025 03/18/2026 1 1 [facility] Advance Directives No Advanced Directives Records FoundDocuments on File Type Date Recorded 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 anation Advance Directive(s) 12/02/2018 8:26 AM Advance Directive(s) 05/23/2016 11:47 AM Advance Directive(s) 01/19/2014 4:36 PM Documents on File Type Date Recorded 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 Advance Directive(s) 12/02/2018 8:26 AM Advance Directive(s) 05/23/2016 11:47 AM Advance Directive(s) 01/19/2014 4:36 PM Advance Directive Response Recorded Date/ Time Living Will No May 29, 2022 12:30pm Power of Fitness Supervisor No May 29 12:30pm Advance Directive Response Recorded Date/ Time Name of Medical Power of Fitness Supervisor Thi Hutson May 30, 2022 1:33am Living Will Yes May 30, 2022 1:33am Power of Fitness Supervisor Yes May 30 1:33am Documents on File Type Date Recorded 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 Advance Directive(s) 01/19/2014 4:36 PM Documents on File Type Date Recorded 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 anation Advance Directive(s) 01/19/2014 4:36 PM Advance Directive Response Recorded Date/ Time Name of Medical Power of Fitness Supervisor Thi Hutson- January 28, 2024 5:55pm Living Will Yes January 28, 2024 5:55pm Power of Fitness Supervisor Yes January 27 5:55pm Advance Directive Response Recorded Date/ Time Name of Medical Power of Fitness Supervisor Thi Hutson January 28, 2024 10:21pm Living Will Yes January 28, 2024 10:21pm Power of Fitness Supervisor Yes January 27 10:21pm Advance Directive Response Recorded Date/ Time Name of Medical Power of Fitness Supervisor Thi Hutson January 28, 2024 10:21pm Advance Directives on File Yes February 19, 2024 3:07pm Living Will Yes February 19, 2024 3:07pm Power of Fitness Supervisor Yes February 18 3:07pm Date Activated Date Inactivated Comments 09/30/2024 9:56 AM 09/30/2024 6:14 PM Date Activated Date Inactivated Comments 09/30/2024 9:56 AM 09/30/2024 6:14 PM Advance Directive Response Recorded Date/ Time Do you have a Healthcare Power of Fitness Supervisor? Yes April 29, 2025 10:35pm Chief Complaint [...] 3 Procedures CONSULT TO CARDIOLOGY OFFICE/OUTPATIENT [facility] MDM 60-74 MINUTES Sher Jules MD [address] [place] [address] Referral ID Status Reason Start Date Expiration Date Visits Requested Visits Authorized [id number] Authorized PCP Requested Referral 06/11/2022 06/11/2023 1 1 Specialty Diagnoses / Procedures Referred By Contac t Referred To Contact CT IMAGING Diagnoses Peripheral vascular disease (HCC) Procedures CTA ABD/PEL LOWER EXTREM W IVCON CTA ABDL AORTA&BI ILIOFEM W/CONTRAST&POSTP Nargis Yin, DO [address] [place] [address] Ct Imaging Referral ID Status Reason Start Date Expiration Date Visits Requested Visits Authorized [id number] Authorized Auto-Generat ed Referral 01/15/2023 02/14/2024 1 1 Referral ID Status Reason Start Date Expiration Date V isits Requested Visits Authorized [id number] Closed Auto-Generate d Referral 01/15/2023 02/14/2024 1 1 Specialty Diagnoses / Procedures Referred By Contac t Referred To Contact General Surgery Diagnoses Screening for colon cancer Procedures CONSULT TO GENERAL SURGERY OFFICE/OUTPATIENT COUNTS INCLUDE 234 BEDS AT [facility] MDM 60 MINUTES Barb Suggs, L[employer] PL[employer] ATTENDANT.ELEMENTARY ART TEACHER [address] [place] [address] Referral ID Status Reason Start Date Expiration Date Visits Requested Visits Authorized [id number] Authorized PCP Requested Referral 02/03/2024 02/02/2025 1 1 Specialty Diagnoses / Procedures Referred By Contac t Referred To Contact General Surgery Diagnoses Special screening for malignant neoplasms, colon Procedures CONSULT TO GENERAL SURGERY OFFICE/OUTPATIENT [facility] 60 MINUTES Sher Jules MD [address] [place] [address] Referral ID Status Reason Start Date Expiration Date Visits Requested Visits Authorized [id number] Authorized PCP Requested Referral 03/11/2024 03/11/2025 1 1 Summary Purpose Additional Source Comments Source Comments (unrecognize d section and content) In the event this informatio n is protected by the Federal Confidentiality of Alcohol and Drug Abuse Patient Records regulations: The Federal rules restrict any use of the information to criminally investigate or prosecute any alcohol or drug abuse patient.[facility] the event this information is protected by the Federal Confidentiality of Alcohol and Drug Abuse Patient Records regulations: The Federal rules restrict any use of the information to criminally investigate or prosecute any alcohol or drug abuse patient.[facility] Hospital[facility] the event this information is protected by the Federal Confidentiality of Alcohol and Drug Abuse Patient Records regulations: The Federal rules restrict any use of the information to criminally investigate or prosecute any alcohol or drug abuse patient.[facility] HospitalIn the event this information is protected by the Federal Confidentiality of Alcohol and Drug Abuse Patient Records regulations: The Federal rules restrict any use of the information to criminally investigate or prosecute any alcohol or drug abuse patient.[facility] HospitalIn the event this information is protected by the Federal Confidentiality of Alcohol and Drug Abuse Patient Records regulations: The Federal rules restrict any use of the information to criminally investigate or prosecute any alcohol or drug abuse patient.[facility] HospitalIn the event this information is protected by the Federal Confidentiality of Alcohol and Drug Abuse Patient Records regulations: The Federal rules restrict any use of the information to criminally investigate or prosecute any alcohol or drug abuse patient.[facility] HospitalIn the event this information is protected by the Federal Confidentiality of Alcohol and Drug Abuse Patient Records regulations: The Federal rules restrict any use of the information to criminally investigate or prosecute any alcohol or drug abuse patient.[facility] HospitalIn the event this information is protected by the Federal Confidentiality of Alcohol and Drug Abuse Patient Records regulations: The Federal rules restrict any use of the information to criminally investigate or prosecute any alcohol or drug abuse patient.[facility] HospitalIn the event this information is protected by the Federal Confidentiality of Alcohol and Drug Abuse Patient Records regulations: The Federal rules restrict any use of the information to criminally investigate or prosecute any alcohol or drug abuse patient.[facility] HospitalIn the event this information is protected by the Federal Confidentiality of Alcohol and Drug Abuse Patient Records regulations: The Federal rules restrict any use of the information to criminally investigate or prosecute any alcohol or drug abuse patient.[facility] HospitalIn the event this information is protected by the Federal Confidentiality of Alcohol and Drug Abuse Patient Records regulations: The Federal rules restrict any use of the information to criminally investigate or prosecute any alcohol or drug abuse patient.[facility] HospitalIn the event this information is protected by the Federal Confidentiality of Alcohol and Drug Abuse Patient Records regulations: The Federal rules restrict any use of the information to criminally investigate or prosecute any alcohol or drug abuse patient.[facility] HospitalIn the event this information is protected by the Federal Confidentiality of Alcohol and Drug Abuse Patient Records regulations: The Federal rules restrict any use of the information to criminally investigate or prosecute any alcohol or drug abuse patient.[facility] HospitalIn the event this information is protected by the Federal Confidentiality of Alcohol and Drug Abuse Patient Records regulations: The Federal rules restrict any use of the information to criminally investigate or prosecute any alcohol or drug abuse patient.[facility] HospitalIn the event this information is protected by the Federal Confidentiality of Alcohol and Drug Abuse Patient Records regulations: The Federal rules restrict any use of the information to criminally investigate or prosecute any alcohol or drug abuse patient.[facility] HospitalIn the event this information is protected by the Federal Confidentiality of Alcohol and Drug Abuse Patient Records regulations: The Federal rules restrict any use of the information to criminally investigate or prosecute any alcohol or drug abuse patient.[facility] HospitalIn the event this information is protected by the Federal Confidentiality of Alcohol and Drug Abuse Patient Records regulations: The Federal rules restrict any use of the information to criminally investigate or prosecute any alcohol or drug abuse patient.[facility] HospitalIn the event this information is protected by the Federal Confidentiality of Alcohol and Drug Abuse Patient Records regulations: The Federal rules restrict any use of the information to criminally investigate or prosecute any alcohol or drug abuse patient.[facility] HospitalIn the event this information is protected by the Federal Confidentiality of Alcohol and Drug Abuse Patient Records regulations: The Federal rules restrict any use of the information to criminally investigate or prosecute any alcohol or drug abuse patient.[facility] HospitalIn the event this information is protected by the Federal Confidentiality of Alcohol and Drug Abuse Patient Records regulations: The Federal rules restrict any use of the information to criminally investigate or prosecute any alcohol or drug abuse patient.[facility] HospitalIn the event this information is protected by the Federal Confidentiality of Alcohol and Drug Abuse Patient Records regulations: The Federal rules restrict any use of the information to criminally investigate or prosecute any alcohol or drug abuse patient.[facility] HospitalIn the event this information is protected by the Federal Confidentiality of Alcohol and Drug Abuse Patient Records regulations: The Federal rules restrict any use of the information to criminally investigate or prosecute any alcohol or drug abuse patient.[facility] HospitalIn the event this information is protected by the Federal Confidentiality of Alcohol and Drug Abuse Patient Records regulations: The Federal rules restrict any use of the information to criminally investigate or prosecute any alcohol or drug abuse patient.[facility] HospitalIn the event this information is protected by the Federal Confidentiality of Alcohol and Drug Abuse Patient Records regulations: The Federal rules restrict any use of the information to criminally investigate or prosecute any alcohol or drug abuse patient.[facility] HospitalIn the event this information is protected by the Federal Confidentiality of Alcohol and Drug Abuse Patient Records regulations: The Federal rules restrict any use of the information to criminally investigate or prosecute any alcohol or drug abuse patient.[facility] HospitalIn the event this information is protected by the Federal Confidentiality of Alcohol and Drug Abuse Patient Records regulations: The Federal rules restrict any use of the information to criminally investigate or prosecute any alcohol or drug abuse patient.[facility] HospitalIn the event this information is protected by the Federal Confidentiality of Alcohol and Drug Abuse Patient Records regulations: The Federal rules restrict any use of the information to criminally investigate or prosecute any alcohol or drug abuse patient.[facility] HospitalIn the event this information is protected by the Federal Confidentiality of Alcohol and Drug Abuse Patient Records regulations: The Federal rules restrict any use of the information to criminally investigate or prosecute any alcohol or drug abuse patient.[facility] HospitalIn the event this information is protected by the Federal Confidentiality of Alcohol and Drug Abuse Patient Records regulations: The Federal rules restrict any use of the information to criminally investigate or prosecute any alcohol or drug abuse patient.[facility] HospitalIn the event this information is protected by the Federal Confidentiality of Alcohol and Drug Abuse Patient Records regulations: The Federal rules restrict any use of the information to criminally investigate or prosecute any alcohol or drug abuse patient.[facility] HospitalIn the event this information is protected by the Federal Confidentiality of Alcohol and Drug Abuse Patient Records regulations: The Federal rules restrict any use of the information to criminally investigate or prosecute any alcohol or drug abuse patient.[facility] HospitalIn the event this information is protected by the Federal Confidentiality of Alcohol and Drug Abuse Patient Records regulations: The Federal rules restrict any use of the information to criminally investigate or prosecute any alcohol or drug abuse patient.[facility] HospitalIn the event this information is protected by the Federal Confidentiality of Alcohol and Drug Abuse Patient Records regulations: The Federal rules restrict any use of the information to criminally investigate or prosecute any alcohol or drug abuse patient.[facility] HospitalIn the event this information is protected by the Federal Confidentiality of Alcohol and Drug Abuse Patient Records regulations: The Federal rules restrict any use of the information to criminally investigate or prosecute any alcohol or drug abuse patient.[facility] HospitalIn the event this information is protected by the Federal Confidentiality of Alcohol and Drug Abuse Patient Records regulations: The Federal rules restrict any use of the information to criminally investigate or prosecute any alcohol or drug abuse patient.[facility] HospitalIn the event this information is protected by the Federal Confidentiality of Alcohol and Drug Abuse Patient Records regulations: The Federal rules restrict any use of the information to criminally investigate or prosecute any alcohol or drug abuse patient.[facility] HospitalIn the event this information is protected by the Federal Confidentiality of Alcohol and Drug Abuse Patient Records regulations: The Federal rules restrict any use of the information to criminally investigate or prosecute any alcohol or drug abuse patient.[facility] HospitalIn the event this information is protected by the Federal Confidentiality of Alcohol and Drug Abuse Patient Records regulations: The Federal rules restrict any use of the information to criminally investigate or prosecute any alcohol or drug abuse patient.[facility] HospitalIn the event this information is protected by the Federal Confidentiality of Alcohol and Drug Abuse Patient Records regulations: The Federal rules restrict any use of the information to criminally investigate or prosecute any alcohol or drug abuse patient.[facility] HospitalIn the event this information is protected by the Federal Confidentiality of Alcohol and Drug Abuse Patient Records regulations: The Federal rules restrict any use of the information to criminally investigate or prosecute any alcohol or drug abuse patient.[facility] HospitalIn the event this information is protected by the Federal Confidentiality of Alcohol and Drug Abuse Patient Records regulations: The Federal rules restrict any use of the information to criminally investigate or prosecute any alcohol or drug abuse patient.[facility] HospitalIn the event this information is protected by the Federal Confidentiality of Alcohol and Drug Abuse Patient Records regulations: The Federal rules restrict any use of the information to criminally investigate or prosecute any alcohol or drug abuse patient.[facility] HospitalIn the event this information is protected by the Federal Confidentiality of Alcohol and Drug Abuse Patient Records regulations: The Federal rules restrict any use of the information to criminally investigate or prosecute any alcohol or drug abuse patient.[facility] HospitalIn the event this information is protected by the Federal Confidentiality of Alcohol and Drug Abuse Patient Records regulations: The Federal rules restrict any use of the information to criminally investigate or prosecute any alcohol or drug abuse patient.[facility] HospitalIn the event this information is protected by the Federal Confidentiality of Alcohol and Drug Abuse Patient Records regulations: The Federal rules restrict any use of the information to criminally investigate or prosecute any alcohol or drug abuse patient.[facility] HospitalIn the event this information is protected by the Federal Confidentiality of Alcohol and Drug Abuse Patient Records regulations: The Federal rules restrict any use of the information to criminally investigate or prosecute any alcohol or drug abuse patient.[facility] HospitalIn the event this information is protected by the Federal Confidentiality of Alcohol and Drug Abuse Patient Records regulations: The Federal rules restrict any use of the information to criminally investigate or prosecute any alcohol or drug abuse patient.[facility] HospitalIn the event this information is protected by the Federal Confidentiality of Alcohol and Drug Abuse Patient Records regulations: The Federal rules restrict any use of the information to criminally investigate or prosecute any alcohol or drug abuse patient.[facility] HospitalIn the event this information is protected by the Federal Confidentiality of Alcohol and Drug Abuse Patient Records regulations: The Federal rules restrict any use of the information to criminally investigate or prosecute any alcohol or drug abuse patient.[facility] HospitalIn the event this information is protected by the Federal Confidentiality of Alcohol and Drug Abuse Patient Records regulations: The Federal rules restrict any use of the information to criminally investigate or prosecute any alcohol or drug abuse patient.[facility] HospitalIn the event this information is protected by the Federal Confidentiality of Alcohol and Drug Abuse Patient Records regulations: The Federal rules restrict any use of the information to criminally investigate or prosecute any alcohol or drug abuse patient.[facility] HospitalIn the event this information is protected by the Federal Confidentiality of Alcohol and Drug Abuse Patient Records regulations: The Federal rules restrict any use of the information to criminally investigate or prosecute any alcohol or drug abuse patient.[facility] HospitalIn the event this information is protected by the Federal Confidentiality of Alcohol and Drug Abuse Patient Records regulations: The Federal rules restrict any use of the information to criminally investigate or prosecute any alcohol or drug abuse patient.[facility] HospitalIn the event this information is protected by the Federal Confidentiality of Alcohol and Drug Abuse Patient Records regulations: The Federal rules restrict any use of the information to criminally investigate or prosecute any alcohol or drug abuse patient.[facility] HospitalIn the event this information is protected by the Federal Confidentiality of Alcohol and Drug Abuse Patient Records regulations: The Federal rules restrict any use of the information to criminally investigate or prosecute any alcohol or drug abuse patient.[facility] HospitalIn the event this information is protected by the Federal Confidentiality of Alcohol and Drug Abuse Patient Records regulations: The Federal rules restrict any use of the information to criminally investigate or prosecute any alcohol or drug abuse patient.[facility] HospitalIn the event this information is protected by the Federal Confidentiality of Alcohol and Drug Abuse Patient Records regulations: The Federal rules restrict any use of the information to criminally investigate or prosecute any alcohol or drug abuse patient.[facility] HospitalIn the event this information is protected by the Federal Confidentiality of Alcohol and Drug Abuse Patient Records regulations: The Federal rules restrict any use of the information to criminally investigate or prosecute any alcohol or drug abuse patient.[facility] HospitalIn the event this information is protected by the Federal Confidentiality of Alcohol and Drug Abuse Patient Records regulations: The Federal rules restrict any use of the information to criminally investigate or prosecute any alcohol or drug abuse patient.[facility] HospitalIn the event this information is protected by the Federal Confidentiality of Alcohol and Drug Abuse Patient Records regulations: The Federal rules restrict any use of the information to criminally investigate or prosecute any alcohol or drug abuse patient.[facility] HospitalIn the event this information is protected by the Federal Confidentiality of Alcohol and Drug Abuse Patient Records regulations: The Federal rules restrict any use of the information to criminally investigate or prosecute any alcohol or drug abuse patient.[facility] HospitalIn the event this information is protected by the Federal Confidentiality of Alcohol and Drug Abuse Patient Records regulations: The Federal rules restrict any use of the information to criminally investigate or prosecute any alcohol or drug abuse patient.[facility] HospitalIn the event this information is protected by the Federal Confidentiality of Alcohol and Drug Abuse Patient Records regulations: The Federal rules restrict any use of the information to criminally investigate or prosecute any alcohol or drug abuse patient.[facility] HospitalIn the event this information is protected by the Federal Confidentiality of Alcohol and Drug Abuse Patient Records regulations: The Federal rules restrict any use of the information to criminally investigate or prosecute any alcohol or drug abuse patient.[facility] HospitalIn the event this information is protected by the Federal Confidentiality of Alcohol and Drug Abuse Patient Records regulations: The Federal rules restrict any use of the information to criminally investigate or prosecute any alcohol or drug abuse patient.[facility] HospitalIn the event this information is protected by the Federal Confidentiality of Alcohol and Drug Abuse Patient Records regulations: The Federal rules restrict any use of the information to criminally investigate or prosecute any alcohol or drug abuse patient.[facility] HospitalIn the event this information is protected by the Federal Confidentiality of Alcohol and Drug Abuse Patient Records regulations: The Federal rules restrict any use of the information to criminally investigate or prosecute any alcohol or drug abuse patient.[facility] HospitalIn the event this information is protected by the Federal Confidentiality of Alcohol and Drug Abuse Patient Records regulations: The Federal rules restrict any use of the information to criminally investigate or prosecute any alcohol or drug abuse patient.[facility] HospitalIn the event this information is protected by the Federal Confidentiality of Alcohol and Drug Abuse Patient Records regulations: The Federal rules restrict any use of the information to criminally investigate or prosecute any alcohol or drug abuse patient.[facility] HospitalIn the event this information is protected by the Federal Confidentiality of Alcohol and Drug Abuse Patient Records regulations: The Federal rules restrict any use of the information to criminally investigate or prosecute any alcohol or drug abuse patient.[facility] HospitalIn the event this information is protected by the Federal Confidentiality of Alcohol and Drug Abuse Patient Records regulations: The Federal rules restrict any use of the information to criminally investigate or prosecute any alcohol or drug abuse patient.[facility] HospitalIn the event this information is protected by the Federal Confidentiality of Alcohol and Drug Abuse Patient Records regulations: The Federal rules restrict any use of the information to criminally investigate or prosecute any alcohol or drug abuse patient.[facility] HospitalIn the event this information is protected by the Federal Confidentiality of Alcohol and Drug Abuse Patient Records regulations: The Federal rules restrict any use of the information to criminally investigate or prosecute any alcohol or drug abuse patient.[facility] HospitalIn the event this information is protected by the Federal Confidentiality of Alcohol and Drug Abuse Patient Records regulations: The Federal rules restrict any use of the information to criminally investigate or prosecute any alcohol or drug abuse patient.[facility] HospitalIn the event this information is protected by the Federal Confidentiality of Alcohol and Drug Abuse Patient Records regulations: The Federal rules restrict any use of the information to criminally investigate or prosecute any alcohol or drug abuse patient.[facility] HospitalIn the event this information is protected by the Federal Confidentiality of Alcohol and Drug Abuse Patient Records regulations: The Federal rules restrict any use of the information to criminally investigate or prosecute any alcohol or drug abuse patient.[facility] HospitalIn the event this information is protected by the Federal Confidentiality of Alcohol and Drug Abuse Patient Records regulations: The Federal rules restrict any use of the information to criminally investigate or prosecute any alcohol or drug abuse patient.[facility] HospitalIn the event this information is protected by the Federal Confidentiality of Alcohol and Drug Abuse Patient Records regulations: The Federal rules restrict any use of the information to criminally investigate or prosecute any alcohol or drug abuse patient.[facility] Reason for Visit (unrecogniz ed section and content) Reason Onset Date Comments Refill Request 02/28/2022 Reason Comments Established Patient Reason Comments Established Patient Nail Check Reason Comments Dr. Christian Merritt calling Nutrition Faculty Member Reason Comments Appointment Reason Comments Hospital F/U Reason Onset Date Comments Refill Request 06/14/2022 Reason Comments Blood Pressure Check Reason Onset Date Comments Refill Request 07/09/2022 Reason Onset Date Comments Follow Up Immunizations 07/18/2022 Flu vaccination Reason Comments Consult Specialty Diagnoses / Procedures Referred By Contac t Referred To Contact Cardiology Diagnoses Essential hypertension S/P CABG x 3 Procedures CONSULT TO CARDIOLOGY OFFICE/OUTPATIENT [facility] 60-74 MINUTES Sher Jules MD [address] [place] [address] Referral ID Status Reason Start Date Expiration Date V isits Requested Visits Authorized [id number] Closed PCP Requested Referral 06/11/2022 06/11/2023 1 1 Reason Comments Established Patient Follow Up Diabetic Foot Care Reason Comments Covid19 Concern Reason Comments TIA Specialty Diagnoses / Procedures Referred By Contac t Referred To Contact Neurology Diagnoses Central retinal artery occlusion of left eye Procedures CONSULT TO NEUROLOGY OFFICE/OUTPATIENT [facility] 60-74 MINUTES Jules Dukes MD [address] [place] [address] Referral ID Status Reason Start Date Expiration Date V isits Requested Visits Authorized [id number] Closed PCP Requested Referral 09/05/2022 09/05/2023 1 [...] ILIOFEM W/CONTRAST&POSTP Nargis Yin, DO [address] [place] [address] Ct Imaging Referral ID Status Reason Start Date Expiration Date V isits Requested Visits Authorized [id number] Closed Auto-Generate d Referral 01/15/2023 02/14/2024 1 [...] HOSPITALIZED Reason Comments Hospital F/U D/c from [facility] on 01/29 for chest pain an [...] MDM 60 MINUTES Sher Jules MD [address] [place] [address] Referral ID Status Reason Start Date Expiration Date V isits Requested Visits Authorized [id number] Closed PCP Requested Referral 03/11/2024 03/11/2025 1 [...] Care Teams (unrecognized sec tion and content) Child Watch Attendant Relationship Specialty Start Date End Date Sher Jules MD [address] [place] [address] PCP - General 07/28/08 Child Watch Attendant Relationship Specialty Start Date End Date Sher Jules MD [address] [place] [address] PCP - General 07/28/08 Child Watch Attendant Relationship Specialty Start Date End Date Sher Jules MD [address] [place] [id number] PCP - General 07/28/08 Child Watch Attendant Relationship Specialty Start Date End Date Sher Jules MD [address] [place] [address] PCP - General 07/28/08 Child Watch Attendant Relationship Specialty Start Date End Date Sher Jules MD [address] [place] [address] PCP - General 07/28/08 Child Watch Attendant Relationship Specialty Start Date End Date Sher Jules MD [address] [place] [address] PCP - General 07/28/08 Child Watch Attendant Relationship Specialty Start Date End Date Sher Jules MD [facility] [place] [address] PCP - General 07/28/08 Child Watch Attendant Relationship Specialty Start Date End Date Sher Jules MD [address] [place] [address], [place] [address] PCP - General 07/28/08 Child Watch Attendant Relationship Specialty Start Date End Date Sher Jules MD [address] [place] [address] [place] [address] PCP - General 07/28/08 Child Watch Attendant Relationship Specialty Start Date End Date Sher Jules MD [address] [place] [address], [place] [address] PCP - General 07/28/08 Child Watch Attendant Relationship Specialty Start Date End Date Sher Jules MD [address] [place] [address] [place] [address] PCP - General 07/28/08 Child Watch Attendant Relationship Specialty Start Date End Date Sher Jules MD [address] [place] [address] [place] [address] PCP - General 07/28/08 Trevor Robison MD [address] [place] [address] [place] [address] Neurology 10/01/22 Child Watch Attendant Relationship Specialty Start Date End Date Sher Jules MD [address] [place] [address] [place] [address] PCP - General 07/28/08 Trevor Robison MD [address] [place] [address] [place] [address] Neurology 10/01/22 Child Watch Attendant Relationship Specialty Start Date End Date Sher Jules MD [address] [place] [address] PCP - General 07/28/08 Trevor Robison MD [address] [facility] [place] [address] Neurology 10/01/22 Child Watch Attendant Relationship Specialty Start Date End Date Sher Jules MD [address] [place] [address] PCP - General 07/28/08 Trevor Robison MD [address] [facility] [place] [address] Neurology 10/01/22 Child Watch Attendant Relationship Specialty Start Date End Date Sher Jules MD [address] [place] [address] PCP - General 07/28/08 Trevor Robison MD [address] [facility] [place] [address] Neurology 10/01/22 Child Watch Attendant Relationship Specialty Start Date End Date Sher Jules MD [address] [place] [address] PCP - General 07/28/08 Trevor Robison MD [address] [facility] [place] [address] Neurology 10/01/22 Child Watch Attendant Relationship Specialty Start Date End Date Sher Jules MD [address] [place] [address] PCP - General 07/28/08 Trevor Robison MD [address] [facility] [place] [address] Neurology 10/01/22 Child Watch Attendant Relationship Specialty Start Date End Date Sher Jules MD [address] [place] [address] PCP - General 07/28/08 Trevor Robison MD [address] [facility] [place] [address] Neurology 10/01/22 Child Watch Attendant Relationship Specialty Start Date End Date Sher Jules MD [address] [place] [address] PCP - General 07/28/08 Trevor Robison MD [address] [facility] [place] [address] Neurology 10/01/22 Child Watch Attendant Relationship Specialty Start Date End Date Sher Jules MD [address] [place] [address] PCP - General 07/28/08 Trevor Robison MD [address] [facility] [place] [address] Neurology 10/01/22 Child Watch Attendant Relationship Specialty Start Date End Date Sher Jules MD [address] [place] [address] PCP - General 07/28/08 Trevor Robison MD [address] [facility] [place] [address] Neurology 10/01/22 Child Watch Attendant Relationship Specialty Start Date End Date Sher Jules MD [address] [place] [address] PCP - General 07/28/08 Trevor Robison MD [address] [facility] [place] [address] Neurology 10/01/22 Child Watch Attendant Relationship Specialty Start Date End Date Sher Jules MD [address] [place], [place] 060511 PCP - General 07/28/08 Trevor Robison MD [address] [facility] [address] [place], [place] 417751 Neurology 10/01/22 Child Watch Attendant Relationship Specialty Start Date End Date Sher Jules MD [address] [place], [place] 461101 PCP - General 07/28/08 Trevor Robison MD [address] [facility] [address] [place], [place] 343931 Neurology 10/01/22 Child Watch Attendant Relationship Specialty Start Date End Date Sher uJles MD [address] [place], [place] 984891 PCP - General 07/28/08 Trevor Robison MD [address] [facility] [place] [address] Neurology 10/01/22 Child Watch Attendant Relationship Specialty Start Date End Date Sher Jules MD [address] [place], [place] 558491 PCP - General 07/28/08 Trevor Robison MD [address] [facility] [address] [place], [place] 825231 Neurology 10/01/22 Child Watch Attendant Relationship Specialty Start Date End Date Sher Jules MD [address] [place], [place] 61590691 PCP - General 07/28/08 Trevor Robison MD [address] [facility] [address] [place], [place] 753811 Neurology 10/01/22 Child Watch Attendant Relationship Specialty Start Date End Date Sher Jules MD [address] [place], [place] 026031 PCP - General 07/28/08 Trevor Robison MD [address] [facility] [address] [place], [place] 170971 Neurology 10/01/22 Child Watch Attendant Relationship Specialty Start Date End Date Sher Jules MD [address] [place], [place] 451791 PCP - General 07/28/08 Trevor Rboison MD [address] [facility] [address] [place], [place] 712631 Neurology 10/01/22 Child Watch Attendant Relationship Specialty Start Date End Date Sher Jules MD [address] [place], [place] 827701 PCP - General 07/28/08 Trevor Robison MD [address] [facility] [address] [place], [place] 053711 Neurology 10/01/22 Child Watch Attendant Relationship Specialty Start Date End Date Sher Jules MD [address] [place], [place] 67[address] PCP - General 07/28/08 Trevor Robison MD [address] [facility] [address] [place], [place] 989441 Neurology 10/01/22 Child Watch Attendant Relationship Specialty Start Date End Date Sher Jules MD [address] [place], [place] 681381 PCP - General 07/28/08 Trevor Robison MD [address] [facility] [address] [place], [place] 973221 Neurology 10/01/22 Child Watch Attendant Relationship Specialty Start Date End Date Sher Jules MD [address] [place], [place] 159171 PCP - General 07/28/08 Trevor Robison MD [address] [facility] [address] [place], [place] 474171 Neurology 10/01/22 Child Watch Attendant Relationship Specialty Start Date End Date Sher Jules MD [address] [place], [place] 955841 PCP - General 07/28/08 Trevor Robison MD [address] [facility] [address] [place], [place] 564901 Neurology 10/01/22 Child Watch Attendant Relationship Specialty Start Date End Date Sher Jules MD [address] [place], [place] 79923691 PCP - General 07/28/08 Trevor Robison MD [address] [facility] [address] [place], [place] 727241 Neurology 10/01/22 Team Status: Active Member Role [...] Simeon MD Referring Provider Active Dr. Geeta Mnedoza MD Attending Provider Active Team Status: Active [...] Active Member Role Status Dates Dr. Sher Juels MD Primary Care Provider Active Dr. Kvng [...] Dr. Debby Machuca MD Attending Provider Active Child Watch Attendant Relationship Specialty Start Date End Date Sher Jules MD [address] [place] [address] PCP - General 07/28/08 Trevor Robison MD [address] [facility] [place] [address] Neurology 10/01/22 Child Watch Attendant Relationship Specialty Start Date End Date Sher Jules MD [address] [place] [address] PCP - General 07/28/08 Trevor Robison MD [address] [facility] [place] [address] Neurology 10/01/22 Child Watch Attendant Relationship Specialty Start Date End Date Sher Jules MD [address] [place] [address] PCP - General 07/28/08 Trevor Robison MD [address] [facility] [place] [address] Neurology 10/01/22 Team Status: Active Member Role [...] MD Attending Provider, Referring Provid er Active Child Watch Attendant Relationship Specialty Start Date End Date Sher Jules MD [address] [place], [place] 569241 PCP - General 07/28/08 Trevor Robison MD [address] [facility] [address] [place], [place] 076971 Neurology 10/01/22 Child Watch Attendant Relationship Specialty Start Date End Date Sher Jules MD [address] [place], [place] 209031 PCP - General 07/28/08 Trevor Robison MD [address] [facility] [address] [place], [place] 456861 Neurology 10/01/22 Child Watch Attendant Relationship Specialty Start Date End Date Sher Jules MD [address] [place], [place] [id number] PCP - General 07/28/08 Trevor Robison MD [address] [facility] [address] [place], [place] 151461 Neurology 10/01/22 Child Watch Attendant Relationship Specialty Start Date End Date Sher Jules MD [address] [place], [place] 409571 PCP - General 07/28/08 Trevor Robison MD [address] [facility] [address] [place], [place] 525741 Neurology 10/01/22 Child Watch Attendant Relationship Specialty Start Date End Date Sher Jules MD [address] [place], [place] 78638691 PCP - General 07/28/08 Trevor Robison MD [address] [facility] [address] [place], [place] 05572281 Neurology 10/01/22 Child Watch Attendant Relationship Specialty Start Date End Date Sher Jules MD [address] [place], [place] 828821 PCP - General 07/28/08 Trevor Robison MD [address] [facility] [address] [place], [place] 709641 Neurology 10/01/22 Child Watch Attendant Relationship Specialty Start Date End Date Sher Jules MD [address] [place], [place] 885161 PCP - General 07/28/08 Trevor Robison MD [address] [facility] [address] [place], [place] 670171 Neurology 10/01/22 Child Watch Attendant Relationship Specialty Start Date End Date Sher Jules MD [address] [place], [place] [id number] PCP - General 07/28/08 Trevor Robison MD [address] [facility] [address] [place], [place] 31553281 Neurology 10/01/22 Child Watch Attendant Relationship Specialty Start Date End Date Sher Jules MD [address] [place], [place] 288641 PCP - General 07/28/08 Trevor Robison MD [address] [facility] [address] [place], [place] 308611 Neurology 10/01/22 Child Watch Attendant Relationship Specialty Start Date End Date Sher Jules MD [address] [place], [place] 690831 PCP - General 07/28/08 Trevor Robison MD [address] [facility] [address] [place], [place] 065291 Neurology 10/01/22 Child Watch Attendant Relationship Specialty Start Date End Date Sher Jules MD [address] [place], [place] 289211 PCP - General 07/28/08 Trevor Robison MD [address] [facility] [address] [place], [place] 991251 Neurology 10/01/22 Child Watch Attendant Relationship Specialty Start Date End Date Sher Jules [address] [place], [place] 110281 PCP - General Internal Medicine 09/16/24 Child Watch Attendant Relationship Specialty Start Date End Date Sher Jules [address] [facility], [place] 934481 PCP - General Internal Medicine 09/16/24 Child Watch Attendant Relationship Specialty Start Date End Date Sher Jules [address] [place] [address] PCP - General Internal Medicine 09/16/24 Child Watch Attendant Relationship Specialty Start Date End Date Sher Jules [address] [place] [address] PCP - General Internal Medicine 09/16/24 Child Watch Attendant Relationship Specialty Start Date End Date Sher Jules MD [address] [facility], [place] 756221 PCP - General 07/28/08 Trevor Robison MD [address] [facility] [address] [place], [place] 755441 Neurology 10/01/22 Barb Suggs, LOCKER PLANT ATTENDANT.ELEMENTARY ART TEACHER [address] [place] [address] Card Brusher Internal Medicine 10/05/24 Child Watch Attendant Relationship Specialty Start Date End Date Sher Jules MD [address] [facility], [place] 077461 PCP - General 07/28/08 Trevor Robison MD [address] [facility] [place] [address] Neurology 10/01/22 Barb Suggs, LOCKER PLANT ATTENDANT.ELEMENTARY ART TEACHER [address] [place] [address] Card Brusher Internal Medicine 10/05/24 Child Watch Attendant Relationship Specialty Start Date End Date Sher Jules MD [address] [place] [address] PCP - General 07/28/08 Trevor Robison MD [address] [facility] [address] Neurology 10/01/22 Barb Suggs, LOCKER PLANT ATTENDANT.ELEMENTARY ART TEACHER [address] [facility] [place] [address] [facility] Internal Medicine 10/05/24 Child Watch Attendant Relationship Specialty Start Date End Date Sher Jules MD [address] [facility] [place] 540[facility] PCP - General 07/28/08 Trevor Robison MD [address] [facility] [address] Neurology 10/01/22 Barb Suggs, LOCKER PLANT ATTENDANT.ELEMENTARY ART TEACHER [address] [facility] [place] [address] Card Brusher Internal Medicine 10/05/24 Child Watch Attendant Relationship Specialty Start Date End Date Sher Jules MD [address] [facility] [place] [place] 109111 PCP - General 07/28/08 Trevor Robison MD [address] [facility] [address] Neurology 10/01/22 Barb Suggs, LOCKER PLANT ATTENDANT.ELEMENTARY ART TEACHER [address] [facility], [place] [address] [facility] Internal Medicine 10/05/24 Child Watch Attendant Relationship Specialty Start Date End Date Sher Jules MD [address] [facility], [place] 180231 PCP - General 07/28/08 Trevor Robison MD [address] [place] [address] [place] [address] Neurology 10/01/22 Barb Suggs, LOCKER PLANT ATTENDANT.ELEMENTARY ART TEACHER [address] [facility], [place] [address] [facility] Internal Medicine 10/05/24 Team Status: Active [...] Active Start: March 12, 2025 Naz Cox LAUNDRY ROUTEMAN, LAUNDRY ROUTEMAN-C Attending Provider Active Start: March 12, 2025 Child Watch Attendant Relationship Specialty Start Date End Date Sher Jules MD [address] [place] [address] PCP - General 07/28/08 Trevor Robison MD [address] [place] [address] Neurology 10/01/22 Barb Suggs, LOCKER PLANT ATTENDANT.ELEMENTARY ART TEACHER [address] [place] [address] Card Brusher Internal Medicine 10/05/24 Child Watch Attendant Relationship Specialty Start Date End Date Sher Jules MD [address] [place] [address] PCP - General 07/28/08 Trevor Robison MD [address] [place] [address] Neurology 10/01/22 Barb Suggs, LOCKER PLANT ATTENDANT.ELEMENTARY ART TEACHER [address] [place] [address] Card Brusher Internal Medicine 10/05/24 Child Watch Attendant Relationship Specialty Start Date End Date Sher Jules MD [address] [place] [address] PCP - General 07/28/08 Trevor Robison MD [address] [place] [address] Neurology 10/01/22 Barb Suggs, LOCKER PLANT ATTENDANT.ELEMENTARY ART TEACHER [address] [place] [address] Card Brusher Internal Medicine 10/05/24 Child Watch Attendant Relationship Specialty Start Date End Date Sher Jules MD [address] [place] [address] PCP - General 07/28/08 Trevor Robison MD [address] [place] [address] Neurology 10/01/22 Barb Suggs, LOCKER PLANT ATTENDANT.ELEMENTARY ART TEACHER [address] [place] [address] Card Br[facility]her Internal Medicine 10/05/24 Team Status: Active Member [...] Start: March 12, 2025 Naz Cox NP, LAUNDRY ROUTEMAN-C Attending Provider Active Start: March 12, 2025 [...] section and content) DATE CREATED AUTHOR 03/13/2024 [facility] DATE CREATED AUTHOR AUTHOR'S ORGANIZ ATION 01/02/2025 [facility] DATE CREATED AUTHOR AUTHOR'S ORGANIZ ATION 04/23/2025 [facility] DATE CREATED AUTHOR AUTHOR'S ORGANIZ ATION 05/08/2025 [facility] Scheduled Active and Recently Administ ered Medications [...] BE BASED ON THE PRIMARY CLINICAL RECORDS. [employer] provides no warranty or guarantee of the accuracy or completeness of information in this document.
[2025-05-08] MEDS: Bupiv/Epi 0.25% 30 ML Vial (09:55)
--- NOTE | 2025-05-08 10:28 | PCM.OPRPT ---
Operative Report (Standard) Operative Information Date of Procedure: 05/08/25 Pre-Operative Diagnosis: 1) Displaced right index finger metacarpal base fracture Post-Operative Diagnosis: Same Surgery/Procedure Performed: 1) Open reduction internal fixation right index finger metacarpal base fracture (CPT: 21388) dental receptionist: Yes Family And Consumer Education Teacher: Kymberly Tracy Tasks completed by certified nursing assistant: Other (Prepping/draping and holding/retracting ) Type of Anesthesia: General/Supplemental (20 cc of 0.25% Marcaine with 1:200,000 epinephrine ) RN Documented Start/Stop Times: Operation Date: 05/08/25 07:45 Case Time Anesthesia Start 05/08/25 07:35 Into Room 05/08/25 07:35 Procedure Start 05/08/25 08:06 Procedure End 05/08/25 10:13 Anesthesia End 05/08/25 10:18 Out of Room 05/08/25 10:18 Into Recovery 05/08/25 10:20 Procedure Start Time: 08:06 Procedure Stop Time: 10:13 Select all DRAINS/GRAFTS/IMPLANTS that apply: Implanted device (Arthrex plate and screws) Implanted device details: Arthrex Y plate 1.6 mm product number [id number]-[id number], 6 holes 1.6 mm cortical screws x 2: 16 mm and 18 mm in length 1.6 mm JAZMYN locking screws, 8 mm x 5, 9 mm x 2 Estimated Blood Loss: 20 cc Specimen collected: No Description of surgery: Indications: Patient is a delightful 75-year-old male with a right index finger base fracture with displaced fracture fragments (likely secondary to pole of the extensor carpi radialis longus insertion). He presents today for open reduction internal fixation. He understands the risks, benefits, and alternatives to the procedure, and would like rigid fixation of possible for early active range of motion. Procedure Details: The patient was correctly identified in preoperative holding and taken back to the operating room he was administered general anesthesia. He was prepped and draped in sterile fashion and all proper timeouts were performed. Esmarch was used and the tourniquet was insufflated on his arm to 250 mmHg. The fracture was reduced using the mini C arm via distal traction and a volar to dorsal force to reduce the base fragments. A stabilizing axial 0.045 K wire was then placed through the metacarpal head through the metacarpal into the base and into the trapezoid for stabilization of the reduction. We checked the cascade and were satisfied with the cascade of the hand/index finger. We determined that the best option because of the multiple fragments in the pull of the ECRL was a plate rather than intramedullary screw fixation. Therefore a longitudinal incision was made over the metacarpal with careful dissection (care to prevent injury to the superficial nerve branches) was taken down with tenotomy scissors to the metacarpal (EDC and EIP retracted ulnarly). The periosteum was incised and carefully elevated to expose the fracture site. The fracture site had minimal callus, but was debrided slightly. The wound was irrigated with copious amounts normal saline. We then placed a T plate as noted above was then placed with a total of 9 screws placed. There were 3 locking screws placed proximally at the base of the fracture, and 2 nonlocking screws placed just distal to the dorsal fracture line which also had purchase within the proximal fracture fragment on the volar side catching the volar oblique component of the fracture. The rest of the distal screws were locking screws. PA and lateral x-rays confirmed acceptable reduction. The wound was then irrigated with Irrisept. The digital cascade was once again checked after the K wire was removed and the patient had normal cascade with no inappropriate finger overlap, angulation or rotation. The fracture line was then stressed under fluoroscopy and there was no motion (rigid fixation obtained). Tourniquet was let down and hemostasis obtained with bipolar electrocautery and the above-noted local solution. The periosteum was then closed with 4-0 PDS interrupted sutures followed by skin closure with 4-0 Monocryl deep dermal sutures followed by 4-0 nylon horizontal mattress sutures. Xeroform and a plaster radial gutter splint was then applied. Patient tolerated the procedure well. He was awakened and taken to the PACU in stable condition. Postoperative plan: Plan for splint removal on 11 May 2025, with transition into a removable Orthoplast splint with early active range of motion. Surgical Findings: Comminuted fracture at the base of the right index finger with fracture fragment being displaced by the extensor carpi radialis longus. Complications Complications: No Admit VTE Documentation VTE Mechan Device Prophylaxis: SCD's
--- NOTE | 2025-05-08 11:40 | PCM.POST.ANE ---
Anesthesia: Postop Eval I Current Vital Signs Temperature: 97 F Pulse Rate: 68 Blood Pressure: 192/70 Respiratory Rate: 16 Pulse Ox: 96 Oxygen Delivery Method: Room Air Assessment Airway patent: Yes Spontaneous unlabored respirations: Yes Mental status: Awake and Calm nausea: No Vomiting: No Anesthesia Complication: No Fluid Hydration Crystalloid volume administer (ml): 800 Total IV fluid infused: 800 Progress Note Anesthesia document: Postop Eval 1 completed: Yes
--- NOTE | 2025-05-08 11:43 | PCM.POSTANE2 ---
Anesthesia Postop Eval I Sum Postop Eval Completion status Anesthesia document: Postop Eval 1 completed: Yes Anesthesia Postop Eval I Summary Anesthesia Postop Eval I Summary: Anesthesia Postop Eval I: Assessment Summary Airway patent Yes 05/08/25 11:41 Spontaneous unlabored Yes 05/08/25 11:41 respirations Mental status Awake,Calm 05/08/25 11:41 nausea No 05/08/25 11:41 Vomiting No 05/08/25 11:41 Anesthesia Postop Eval I: Fluid Summary Crystalloid volume administer 800 05/08/25 11:41 (ml) Colloids volume administered ( ml) Blood Product volume administered (ml) Total IV fluid infused 800 05/08/25 11:41 Anesthesia Postop Eval I: Summary Notes Anesthesia Complication No 05/08/25 11:41 Anesthesia Complication Comment: Post-operative progress note Anesthesia: Postop Eval II Evaluation Mental status: Awake Pain Level: 2 nausea: No Vomiting: No
== END 2025-05-08 11:58 | disposition home or self-care (01) ==
LOC: ED 07:09 → SDC 07:29 → ACINP 07:30
PROVIDERS: Emergency Provider Emergency Medicine; PCP Internal Medicine; Visit Provider Surgery Plastic and Reconstructive Surgery
PROC: (CPT 26615; principal; 2025-05-08 07:30)
DX: S62.310A Displaced fracture of base of second metacarpal bone, right hand, initial encounter for closed fracture (principal); E11.51 Type 2 diabetes mellitus with diabetic peripheral angiopathy without gangrene; W08.XXXA Fall from other furniture, initial encounter; Y92.015 Private garage of single-family (private) house as the place of occurrence of the external cause; I10 Essential (primary) hypertension; I25.2 Old myocardial infarction; E78.5 Hyperlipidemia, unspecified; I25.10 Atherosclerotic heart disease of native coronary artery without angina pectoris; Z95.1 Presence of aortocoronary bypass graft; Z79.84 Long term (current) use of oral hypoglycemic drugs; Z79.82 Long term (current) use of aspirin; Z79.02 Long term (current) use of antithrombotics/antiplatelets; Z79.899 Other long term (current) drug therapy; Z87.891 Personal history of nicotine dependence
CPT/HCPCS: 26615; 01830; 73130; 76000; 99284; C1713; A4216; J2405

== ENCOUNTER 2025-07-20 10:00 | Outpatient (RCR) | payer MEDICARE, OTHER, SELFPAY ==
[2025-05-10 13:43] VITALS: BMI 27.9
--- NOTE | 2025-05-12 07:40 | HP.OTEVAL ---
Patient's Visit Information Visit Information Visit Information: MARIE FALCON is a 75 year old M, referred to Occupational Therapy by Dr. Nic Rodriguez MD, with a diagnosis of right IF metacarpal fx. Date of Evaluation: 05/12/25 Occupational Therapist: Shivani Craft, OTR/Giselle, CHT Subjective Subjective: This 75 year old male was seen for OT eval with dx of right IF metacarpal fx. pt suffered a fall after he fell asleep on a stool in his garage on 04/29/25. Pt underwent ORIF on 05/08/25. Pt arrives today 4 days s/p demo need for custom orthosis to provide protection and support while fx is healing. pt arrives from DrBrad visit hand swollen and sore. pt states he is limited with all ADLs and IADLs at this time. Pain right hand: Current Pain Intensity: 2 Pain Intensity Range: 0 and 3 ROM MP: right IF 0/30 MF 0/40 PIP: right IF 0/40 Strength Strength Comments: will test later date Edema PIP: right MF 8.0 left 7.5 Other: pt demo with swelling of right hand Sensation Sensation Comments: denies Goals Goal:Daily scar massage when approriate: Yes Goal:ROM equal to unaffected hand: Yes Goal:Wind Energy Technician/Pinch strength at least 75% of unaffected hand: Yes Comment: will not initiate until week 6 or otherwise indicated by Goal:No pain with affected hand use: Yes Goal:PIP Circumferences equal to unaffected hand: Yes Goal:Full use of affected hand in daily activities including work: Yes Other Goal: orthosis use: pt will demo understanding of orthosis use and precautions by end of 1st session. Rehabilitation General Assessment: pt arrives 4 days s/p ORIF of right IF Metacarpal fx. pt demo need for skilled OT services to provide custom orthosis to provide protection and support while fx is healing. Today therapist nick. custom orthosis- and with Dr. Salcedo of initiating AROM to limit joint stiffness complication pt was ed. in wrist and digit ROM ex., edema control, use of orthosis and skin care precautions. pt demo understanding and agrees to POC. Rehabilitation Potential: Good Anticipated Interventions Anticipated Interventions: A/AAROM/PROM, Strengthening, Edema Control, Scar Care, Triggerpoint Release, Modalities, Orthoses, Joint Protection/Energy Conservation, Ergonomic Education, Education re assistive Equipment, Education re Diagnosis and Home Program Visit Plan Frequency: 1-2x /Week Duration: 2 Months TEXT: Thank you for the opportunity to evaluate your patient. For Medicare and Medicare HMO plans, please review the plan of care and approve it. It will need to be FAXED BACK to us at [phone] for Medicare purposes. Please let me know if there are questions or concerns regarding this plan of care. Physician Signature: Date:
--- NOTE | 2025-06-17 11:01 | HP.OTREVAL ---
Re-Evaluation Intro: Dr. Nic Rodriguez MD, It has been my pleasure to treat MARIE FALCON over the last 11 visits for right IF metacarpal fx. Please see the progress note below for an update on the occupational therapy plan of care! Subjective Subjective: pt arrives now 5 weeks and 5 days from sx doing well no pain Objective Objective/Function: prior to tx: R hand IF MP 0/45 PIP 0/60 DIP 0/45 after tx: R hand IF MP 0/65 PIP 0/75 DIP 0/45 IF 3" from palm of hand Plan Plan Frequency: 1-2x /Week Duration: 2 Months Visits in this POC: 12 Plan: edema ROM incision care Goals Goals Patient Goals: Regain Mobility, Decrease Swelling/Stiffness, Use Hand/Wrist/Arm Normally Again, Be More Independent in ADLS and Resume Former Household Responsibilities (Cooking,Cleaning,Yard, etc.) Goal:Daily scar massage when approriate: Yes Goal:ROM equal to unaffected hand: Yes Goal:Sewing Pattern Layout Technician/Pinch strength at least 75% of unaffected hand: Yes Goal:No pain with affected hand use: Yes Goal:PIP Circumferences equal to unaffected hand: Yes Goal:Full use of affected hand in daily activities including work: Yes Other Goal: orthosis use: pt will demo understanding of orthosis use and precautions by end of 1st session. Anticipated Interventions Anticipated Interventions Anticipated Interventions: A/AAROM/PROM, Strengthening, Edema Control, Scar Care, Triggerpoint Release, Modalities, Orthoses, Joint Protection/Energy Conservation, Ergonomic Education, Education re assistive Equipment, Education re Diagnosis and Home Program Re-Evaluation Ending Re-evaluation ending: Please do not hesitate to contact me at [phone] by phone or if you have questions or concerns regarding this new plan of care! Sincerely, Audrey Hayes
--- NOTE | 2025-06-24 11:38 | HP.OTREVAL ---
Re-Evaluation Intro: Dr. Nic Rodriguez MD, It has been my pleasure to treat MARIE FALCON over the last 12 visits for right IF metacarpal fx. Please see the progress note below for an update on the occupational therapy plan of care! Subjective Subjective: pt arrives now 6 weeks and 5 days from DOS. pt denies pain states he is out of his splint most of the time will wear at night sometimes- Objective Objective/Function: right phototypesetting equipment monitor strength 35# right IF MCP 60* PIP 75* pt making gains with ROM. pt continues to have some swelling but mtg. with compression glove- pt states he is using his hand with daily tasks without pain. out of splint most of the time now. progress strength as tolerate if increase in pain pt to stop what he is doing. Plan Plan Frequency: 1-2x /Week Duration: 2 Months Visits in this POC: 16 Plan: edema ROM incision care Goals Goals Patient Goals: Regain Mobility, Decrease Swelling/Stiffness, Use Hand/Wrist/Arm Normally Again, Be More Independent in ADLS and Resume Former Household Responsibilities (Cooking,Cleaning,Yard, etc.) Goal:Daily scar massage when approriate: Yes Goal:ROM equal to unaffected hand: Yes Goal:Fbi Investigator/Pinch strength at least 75% of unaffected hand: Yes Goal:No pain with affected hand use: Yes Goal:PIP Circumferences equal to unaffected hand: Yes Goal:Full use of affected hand in daily activities including work: Yes Other Goal: orthosis use: pt will demo understanding of orthosis use and precautions by end of 1st session. Anticipated Interventions Anticipated Interventions Anticipated Interventions: A/AAROM/PROM, Strengthening, Edema Control, Scar Care, Triggerpoint Release, Modalities, Orthoses, Joint Protection/Energy Conservation, Ergonomic Education, Education re assistive Equipment, Education re Diagnosis and Home Program Re-Evaluation Ending Re-evaluation ending: Please do not hesitate to contact me at [phone] by phone or if you have questions or concerns regarding this new plan of care! Sincerely, Shivani Craft, OTR/L, CHT
--- NOTE | 2025-07-20 10:28 | HP.OTDCSUM ---
Discharge Summary D/C Summary: It has been my pleasure to treat MARIE FALCON under orders from Dr. Nic Rodriguez MD, for the diagnosis of right IF metacarpal fx for a total of 17 visit(s). Please see the following information for a summary of their discharge status. Overall Improvement % Improvement: 85 Objective Objective/Function: pt is left hand dominate: R hand IF MP flexion 70 PIP 80 DIP 50 R hospital chief executive officer 35# L 60# right PIP circ. 7.5 left 7.5 pt continues to report swelling will vary from day to day and also depends on how much he uses his hand. pt denies pain right IF MCP 60* flexion PIP 80* flexion pt demo all other digits WNL pts right hospital chief executive officer strength is 45# increase from no ability. right lateral pinch 14# right tripod pinch 8# pt demo understanding of HEP that includes PROM and AROM and strengthen as he tolerates. pt will use compression glove as needed. pt has been ed. that he will have swelling on and off for about 9 months and to expect soreness with aggressive use of non dominate hand for almost a year. agrees with D/c Goals Patient Goals: Regain Mobility, Decrease Swelling/Stiffness, Use Hand/Wrist/Arm Normally Again, Be More Independent in ADLS and Resume Former Household Responsibilities (Cooking,Cleaning,Yard, etc.) Goal:Daily scar massage when approriate: Yes Goal Progress: Goal Met Goal:ROM equal to unaffected hand: Yes Goal Progress: Progressing Goal:Pst Manager/Pinch strength at least 75% of unaffected hand: Yes Goal Progress: 45# left is 60# Goal:No pain with affected hand use: Yes Goal Progress: Goal Met Goal:PIP Circumferences equal to unaffected hand: Yes Goal Progress: Goal Met Goal:Full use of affected hand in daily activities including work: Yes Goal Progress: Goal Met Other Goal: orthosis use: pt will demo understanding of orthosis use and precautions by end of 1st session. Plan Plan: d/c D/C Information Discharge Comments: pt was seen for 17 OT sessions to improve pts functional use of right Non dominate hand. pt has met OT goals at this time and is d/c with HEP. pt agrees to cont. with his HEP. and agrees with d/c. d/c sentence: If there are questions or concerns regarding this patient's occupational therapy, please fell free to call me at [phone]. Thank you for the referral of this patient. Sincerely, Shivani Craft OTR/L, CHT
== END 2025-07-20 10:48 | disposition home or self-care (01) ==
LOC: OT 10:00
PROVIDERS: PCP Internal Medicine; Referring Provider Surgery Plastic and Reconstructive Surgery; Visit Provider Surgery Plastic and Reconstructive Surgery
DX: S62.308D Unspecified fracture of other metacarpal bone, subsequent encounter for fracture with routine healing (principal); S62.310D Displaced fracture of base of second metacarpal bone, right hand, subsequent encounter for fracture with routine healing; M79.641 Pain in right hand
CPT/HCPCS: 97110; 97140; 97166; 97530

== ENCOUNTER → 2025-07-28 | Outpatient (CLI) | payer MEDICARE, OTHER, SELFPAY ==
[2025-05-10 13:43] VITALS: BMI 27.9
[2025-07-28 16:03] LABS: AST(SGOT) 20 U/L (<=37); Alanine Aminotransfer ALT/SGPT 10 U/L (<=46); Albumin, Serum 3.7 g/dL (3.4-4.8); Alkaline Phosphatase 122 U/L (40-129); Anion Gap 12 (5-15); BUN 9 mg/dL (4-19); BUN/Creat Ratio 16.4 RATIO (10-20); CPK Total, Creatine Kinase 41 U/L (24-195); Calcium,Total 9.4 mg/dL (7.6-11.0); Carbon Dioxide 22.2 mmol/L (21.0-32.0); Chloride 96 mmol/L (98-108); Cholesterol 104 mg/dL (<=200); Globulin 2.8 g/dL (2.2-4.2); Glucose 113 mg/dL (70-99); Low Density Lipoprotein Calc. 26 mg/dL; Potassium 5.0 mmol/L (3.3-5.1); Triglycerides 50 mg/dL; Very Low Density Lipoprotein 10 mg/dL (5-40); cholesterol:hdl ratio screen 1.52
== END | disposition home or self-care (01) ==
LOC: LAB 14:59
PROVIDERS: Internal Medicine Cardiovascular Disease; PCP Internal Medicine; Referring Provider Internal Medicine Cardiovascular Disease; Visit Provider Internal Medicine Cardiovascular Disease
DX: I10 Essential (primary) hypertension (principal); E11.9 Type 2 diabetes mellitus without complications; I25.10 Atherosclerotic heart disease of native coronary artery without angina pectoris; E78.5 Hyperlipidemia, unspecified
CPT/HCPCS: 36415; 80053; 80061; 82550; 84443

== ENCOUNTER → 2025-08-04 | Outpatient (CLI) | payer MEDICARE, OTHER, SELFPAY ==
[2025-05-10 13:43] VITALS: BMI 27.9
[2025-08-04 14:24] LABS: AST(SGOT) 21 U/L (<=37); Alanine Aminotransfer ALT/SGPT 11 U/L (<=46); Albumin, Serum 3.8 g/dL (3.4-4.8); Alkaline Phosphatase 123 U/L (40-129); Anion Gap 11 (5-15); BUN 13 mg/dL (4-19); BUN/Creat Ratio 18.8 RATIO (10-20); Calcium,Total 9.2 mg/dL (7.6-11.0); Carbon Dioxide 23.9 mmol/L (21.0-32.0); Chloride 92 mmol/L (98-108); Globulin 2.7 g/dL (2.2-4.2); Glucose 77 mg/dL (70-99); Potassium 5.2 mmol/L (3.3-5.1)
[2025-08-04 15:53] LABS: CPK Total, Creatine Kinase 38 U/L (24-195); Cholesterol 102 mg/dL (<=200); Low Density Lipoprotein Calc. 19 mg/dL; Triglycerides 44 mg/dL; Very Low Density Lipoprotein 9 mg/dL (5-40); cholesterol:hdl ratio screen 1.38
== END | disposition home or self-care (01) ==
PROVIDERS: PCP Internal Medicine; Referring Provider Internal Medicine Cardiovascular Disease; Visit Provider Internal Medicine Cardiovascular Disease
DX: E78.5 Hyperlipidemia, unspecified (principal); E11.9 Type 2 diabetes mellitus without complications; I10 Essential (primary) hypertension; I25.10 Atherosclerotic heart disease of native coronary artery without angina pectoris; Z95.5 Presence of coronary angioplasty implant and graft
CPT/HCPCS: 36415; 80053; 80061; 82550

== ENCOUNTER → 2025-08-19 | Outpatient (CLI) | payer MEDICARE, OTHER, SELFPAY ==
[2025-05-10 13:43] VITALS: BMI 27.9
--- NOTE | 2025-08-19 12:52 | CDU_ITS ---
Reason For Study Reason For Study: Carotid Bruit Rt. Velocities/BP Lt. Velocities/BP Prox CCA 139.7/7.5 cm/sec. Prox CCA 102.6/14.6 cm/sec. Mid CCA 98.4/10.8 cm/sec. Mid CCA 136.3/21.2 cm/sec. Dist CCA 120.4/14.4 cm/sec. Dist CCA 105.2/13.9 cm/sec. Prox ICA 173.4/23.1 cm/sec. Prox ICA 331.6/35.2 cm/sec. Mid ICA 103.9/21.7 cm/sec. Mid ICA 106.2/15.0 cm/sec. Dist ICA 78.7/19.3 cm/sec. Dist ICA 67.7/13.4 cm/sec. Rt. ICA/CCA = 1.8. Lt. ICA/CCA = 2.4. Prox ECA 238.9/0.0 cm/sec. Prox ECA 418.4/0.0 cm/sec. Rt. Vert. 68.3/13.0 cm/sec. Lt. Vert. 46.8/0.0 cm/sec. Right Extracranial There is heterogeneous, irregular atherosclerotic plaque noted in the right common carotid artery. There is heterogeneous, irregular atherosclerotic plaque noted in the right internal carotid artery. There is heterogeneous, irregular atherosclerotic plaque noted in the right external carotid artery. Antegrade flow is noted in the right vertebral artery. Left Extracranial There is heterogeneous, irregular atherosclerotic plaque noted in the left common carotid artery. There is heterogeneous, irregular atherosclerotic plaque noted in the left internal carotid artery. There is heterogeneous, irregular atherosclerotic plaque noted in the left external carotid artery. Antegrade flow is noted in the left vertebral artery. Procedure Carotid Duplex [id number]. This is a Carotid Duplex examination using B-mode, color flow and specral Doppler. Exam performed in department. VL/Carotid Duplex Ultrasound Interpretation Summary Moderate (50-69%) stenosis right extracranial internal carotid. Severe (>70%) stenosis left extracranial internal carotid. Patent and antegrade vertebrals bilaterally. Ordering Physician: Rubio Simeon Referring Physician: Sher Jules M.D. Performed By: Shelley De Guzman and Student, RVT
== END | disposition home or self-care (01) ==
LOC: CVS 12:50
PROVIDERS: PCP Internal Medicine; Referring Provider Internal Medicine Cardiovascular Disease; Visit Provider Internal Medicine Cardiovascular Disease
DX: R09.89 Other specified symptoms and signs involving the circulatory and respiratory systems (principal)
CPT/HCPCS: 93880

== ENCOUNTER → 2025-10-07 | Outpatient (CLI) | payer MEDICARE, OTHER, SELFPAY ==
[2025-05-10 13:43] VITALS: BMI 27.9
--- NOTE | 2025-10-07 16:45 | CT_ITS ---
PROCEDURE: CTA HEAD AND NECK W/ CONTRAST 10/07/2025 REASON FOR EXAM: SEVERE L ICA STENOSIS TECHNIQUE: Procedure Code: [id number].HDNCK Modality: CT Procedure: CTA HEAD AND NECK W/ CONTRAST Multiplanar Sagittal and Coronal images were obtained. 3D post processing was performed CONTRAST: Isovue 370 VOLUME: 100 mL One or more dose reduction techniques were used (e.g., Automated exposure control, adjustment of the mA and/or kV according to patient size, use of iterative reconstruction technique). RADIATION DOSE SUMMARY: CTDlvol: 22.5 mGy DLP: 1590.49 mGycm COMPARISON: None FINDINGS: Prior CABG. Aortic Arch: Normal size and branching pattern. Mild atherosclerotic plaque. Brachiocephalic and Subclavians: Atherosclerotic plaque formation at the origin of the right brachiocephalic artery in the left subclavian artery with the moderate stenosis. RIGHT Carotid: Right CCA: Mild calcified and soft plaque. Right ICA: Tight stenosis at the origin of the right internal carotid artery. Maximum stenosis (NASCET): Greater than 90% % Right ECA: Mild calcified and soft plaque. LEFT Carotid: Left CCA: Mild calcified and soft plaque. Left ICA: Tight stenosis at the origin of the left internal carotid artery. Maximum stenosis (NASCET): Greater than 80 % Left ECA: Unremarkable. Vertebrals: Codominant. Arise from the subclavians. Both vertebrals form the basilar. RIGHT Vertebral: Scattered plaque formation LEFT Vertebral: Scattered plaque formation Anatomy: [place] anatomy is normal. Aneurysm or avm: No intracranial aneurysms or large vascular malformations are identified. Anterior cerebral arteries: Unremarkable: Middle cerebral arteries: Unremarkable. Basilar artery: Unremarkable. Posterior cerebral arteries: Unremarkable. Other major branches of the posterior circulation: Unremarkable. Major venous structures: Unremarkable. Other findings: Neck: Lungs: Bones: CT/CTA Head AND Neck W/ Contrast IMPRESSION: High-grade stenosis of both left and right carotid arteries more prominent on t he right side. Reading Location: [place] [id number]
[2025-10-07 17:16] LABS: CREATININE FINGERSTICK < 1.0 mg/dL (0.70-1.30); EGFR FINGERSTICK > 60.0000 mL/min (>60)
== END | disposition home or self-care (01) ==
LOC: CT 16:41
PROVIDERS: PCP Internal Medicine; Referring Provider Physician Assistant; Visit Provider Physician Assistant
DX: I77.9 Disorder of arteries and arterioles, unspecified (principal)
CPT/HCPCS: 70496; 70498; Q9967; A4216